=== PATIENT | female | born 1935 | race Caucasian/White ===

== ENCOUNTER 2020-10-25 07:14 | Emergency (ER) | payer MEDICARE, OTHER, SELFPAY ==
[2020-10-25 07:15] VITALS: BP 155/76; PULSE 85; RESP 18; TEMP 36.6; O2SAT 96; BMI 21.0
--- NOTE | 2020-10-25 07:25 | ED.VISSUMM ---
- ER Visit Summary Date of Service: 10/25/20 Chief Complaint: Nosebleed History of Present Illness: The patient is a 84 F presenting with nosebleed. Patient states this started approximately 1 hour prior to arrival. She has history of previous nosebleeds. She is not on anticoagulants. No recent trauma. She tried holding direct pressure at home and continued to have bleeding. Denies other complaints. Physical Examination: Vitals are stable. Patient is afebrile. Alert no acute distress. HEENT exam dried blood right nare, no blood in posterior pharynx Neck is supple. Lungs are clear and equal bilaterally. Heart is regular rate and rhythm. Extremities are unremarkable. Skin is warm and dry. Remainder of exam is unremarkable. Emergency Department Course and Treatment: Direct pressure was applied. Cotton ball soaked with Naz mix was instilled into right nare. TXA was then instilled into right nare. Right anterior septum was cauterized with silver nitrate. Patient was observed. She had no further active bleeding. Advised to follow-up with ENT. Advised return to ED for worsening complaints. Disposition: Discharge home Impression: Epistaxis This note was generated with [employer] dictation software. It may contain incorrect words, spelling, and punctuation that were not noted in review of the chart prior to signing ED Disposition - Plan for ED Patient: Instructions: Nosebleed Referrals: Hilton Castro MD [Primary Care Provider] - Oscar Balderas MD [STAFF PHYSICIAN] -
--- NOTE | 2020-10-25 07:32 | ED.RN ---
md aware sepsis screen cancelled pt does not have any SIRS.
[2020-10-25] MEDS: Silver Nitrate (BKC) 1 EACH TOPICAL (07:45)
[2020-10-25] MEDS: Mixture 30 ML Bottle TOPICAL (07:45)
[2020-10-25] MEDS: TRANEXAMIC ACID 1,000 MG/10 ML ML OPERA.SITE (07:45)
--- NOTE | 2020-10-25 08:04 | ED.DEP ---
ED Disposition - Plan for ED Patient: Instructions: Nosebleed Referrals: Hilton Castro MD [Primary Care Provider] - Oscar Balderas MD [STAFF PHYSICIAN] -
[2020-10-25 08:27] VITALS: BP 153/90; PULSE 80; RESP 17; O2SAT 96
== END 2020-10-25 08:28 | disposition home or self-care (01) ==
LOC: ED 08:23
PROVIDERS: Emergency Provider Emergency Medicine; PCP Family Medicine
DX: R04.0 Epistaxis (principal)
CPT/HCPCS: 30901; 99282

== ENCOUNTER 2021-04-15 09:15 | Emergency (ER) | payer MEDICARE, OTHER, SELFPAY ==
[2021-04-15 09:16] VITALS: BP 162/75; PULSE 81; RESP 16; TEMP 36.9; O2SAT 98; BMI 20.2
--- NOTE | 2021-04-15 09:32 | EDS_ITS ---
HPI History of Present Illness Chief Complaint: Rash Informant: patient Onset/Context/Timing Onset: Yesterday Context: Gradual Onset Timing: Continuous Quality: pruritic Location: right chest, left forearm Current Severity: Severe Maximum Severity: Severe Worsened by: nothing Relieved by: nothing Associated Symptoms Associated Symptoms: none Narrative Narrative: Patient presenting with itchy welts. She denies obvious cause. She denies any systemic symptoms such as dyspnea, edema. She was inside all day yesterday and was not exposed to any insects that she knows of. She denies any new soaps, shampoos, detergents, etc. The itchy red welts are on her right chest and breast, and 1 or 2 on her left forearm. She denies any pain, just itchy. [facility] Medical History (Updated 04/15/21 @ 09:[address] Mele Barreto MD) Hyperlipidemia Hypothyroid Home Medications triamcinolone acetonide 1 applic TOPICAL BID PRN 7 Days #15 g 04/15/21 [Rx Last Taken Unknown] Allergy/AdvReac Type Severity Reaction Status Date / Time Sulfa (Sulfonamide Allergy Hives Verified 10/25/20 07:17 Antibiotics) LATEX TAPE Allergy Rash Uncoded 04/15/21 09:18 Social History Smoking Status: Never smoker ROS ROS ED Constitutional Constitutional ED: Denies chills or fever(s) ENT ENT ED: Reports other Details: no problems swallowing ; Denies rhinorrhea or sore throat Cardiovascular Cardiovascular: Denies chest pain, edema or racing heartbeat Respiratory/Chest Respiratory/Chest: Denies cough or dyspnea Integumentary Reports rash; Denies abscess EXAM Physical Exam Const Vital Signs: 04/15/21 09:16 Temperature 98.4 F Temperature Source Temporal Pulse Rate 81 Respiratory Rate 16 Blood Pressure 162/75 H Blood Pressure Mean 104 Pulse Ox 98 Oxygen Delivery Method Room Air Positive well nourished and well developed General Appearance ED: well developed and NAD Extremity normal to inspection General Extremety ED: Negative for edema or tenderness General Extremity: Negative for edema Neuro oriented x3, CN's II-XII intact bilaterally, no sensory deficits noted and gait normal Sensorium / Orientation: alert Motor Exam: strength 5/5 throughout Skin Skin Narrative: Few scattered nontender erythematous wheal and flare lesions, 1- 2 cm at largest, right chest and breast. I see a similar one on her left volar forearm. No lymphangitis. No abscesses. MDM MDM MDM Narrative Medical decision making narrative: These appear to be more consistent with insect bites. She denies having any bedbugs. Her does not have any of this and sleeps in the same bed with her. Regardless of the etiology, I see no life threat here. Will prescribe her triamcinolone cream given that it is limited in distribution. Patient is also asking for a list of primary doctors in our system, which was given. Discharge Plan Triage Chief Complaint: Rash ED Provider: Mele Barreto Dx/Rx/DC Orders Clinical Impression: Insect bites and stings Instructions: ED Insect Sting, Local Reaction Prescriptions: New triamcinolone acetonide 0.1 % cream 1 applic topical BID PRN (Reason: itchy rash) 7 Days Qty: 15 RF: 0 Primary Care Provider: Hilton Castro Referrals: Hilton Castro MD [Primary Care Provider] - Doctor,Your [STAFF PHYSICIAN] - (see attached list if you would like to look for a new primary care physician) Disposition Disposition: Home, Self Care
== END 2021-04-15 09:53 | disposition home or self-care (01) ==
PROVIDERS: Emergency Provider Emergency Medicine; PCP Family Medicine
DX: S20.361A Insect bite (nonvenomous) of right front wall of thorax, initial encounter (principal); S50.862A Insect bite (nonvenomous) of left forearm, initial encounter; W57.XXXA Bitten or stung by nonvenomous insect and other nonvenomous arthropods, initial encounter
CPT/HCPCS: 99282

== ENCOUNTER → 2022-12-29 | Outpatient (CLI) | payer MEDICARE, OTHER, SELFPAY ==
--- NOTE | 2022-12-29 13:48 | CT_ITS ---
STUDY: CT LEFT SHOULDER REASON FOR EXAM: Female, 87 years old. Other specified disorders of bone, shoulder LEFT. Pain and swelling in the medial aspect of the left clavicle. RADIATION DOSAGE (If Supplied By Facility): CTDIvol = ( 24.58 ) mGy, DLP = ( 609.77 ) mGycm TECHNIQUE: The patient was scanned in a multi detector CT scanner. High resolution transaxial imaging was performed without the administration of intravenous contrast material. Sagittal and coronal images were reconstructed. Individualized dose optimization techniques were used for this CT. COMPARISON: None. FINDINGS: Normal glenohumeral articulation. Normal glenoid rim, neck and visualized scapula. Normal humeral head, neck and tuberosities. Normal coracoid process. Normal visualized lateral clavicle. There is mild expansion and irregular cortical bone appearance in the medial aspect of the left clavicle. Correlation with a bone scan is recommended. There is a Type II morphology (curved), with a neutral orientation. Normal visualized muscles and soft tissue structures. CT/Extremity Upper WITH Contrast IMPRESSION: Expansion and irregular cortical appearance of the medial aspect of the left clavicle as described. Correlation with a bone scan is recommended. Electronically Signed: Nick Interiano MD at 14:53 EDT ,
[2022-12-29 14:33] LABS: CREATININE FINGERSTICK < 0.9 mg/dL (0.55-1.02); EGFR FINGERSTICK > 60.0000 mL/min (>60)
== END | disposition home or self-care (01) ==
LOC: CT 13:45
PROVIDERS: PCP Family Medicine; Referring Provider Family Medicine; Visit Provider Family Medicine
DX: M89.8X1 Other specified disorders of bone, shoulder (principal); R93.89 Abnormal findings on diagnostic imaging of other specified body structures
CPT/HCPCS: 73201; Q9967

== ENCOUNTER → 2023-01-05 | Outpatient (CLI) | payer MEDICARE, OTHER, SELFPAY ==
--- NOTE | 2023-01-05 08:22 | NM_ITS ---
CLINICAL: 87-year-old female with history of left sternoclavicular-shoulder pain and swelling. WHOLE BODY 99m Tc MDP RADIONUCLIDE BONE SCINTIGRAPHY COMPARISON: CT of the left upper extremity report 12/29/2022 FINDINGS: Following the intravenous administration of 27.0 mCi of 99m Tc MDP, whole body bone images reveal: 1. Increased radiopharmaceutical concentration is defined in the left sternoclavicular joint, proximal clavicle. 2. Facilitated uptake is noted in the upper cervical spine posteriorly on the right, the ninth thoracic vertebra posteriorly on the right, the acromioclavicular compartments of both shoulders, the bilateral wrists, the fifth lumbar vertebra posteriorly on the right, the anterolateral femoral compartment of the right knee, the bilateral midfoot, wrist articulations bilaterally. 3. The remaining skeletal structures are scintigraphically unremarkable with normal-appearing renal images and urinary bladder activity identified. NM/Bone Scan Whole Body IMPRESSION: 1. The increase in radiopharmaceutical defined in the left proximal clavicle, sternoclavicular joint may necessitate histopathologic sampling secondary to the intensity of uptake and corresponding radiographic changes. 2. 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 Electronically Signed: Nolan Vela, at 21:50 EDT ,
== END | disposition home or self-care (01) ==
LOC: NM 08:20
PROVIDERS: PCP Family Medicine; Referring Provider Family Medicine; Visit Provider Family Medicine
DX: M89.8X1 Other specified disorders of bone, shoulder (principal); R93.89 Abnormal findings on diagnostic imaging of other specified body structures
CPT/HCPCS: 78306; A9503

== ENCOUNTER 2023-08-16 19:11 | Emergency (ER) | payer MEDICARE, OTHER, SELFPAY ==
[2023-08-16 19:12] VITALS: BP 162/66; PULSE 76; RESP 18; TEMP 37; O2SAT 97; BMI 21.6
--- NOTE | 2023-08-16 21:14 | EX.ED.DYSGE1 ---
HPI History of Present Illness Chief Complaint: Nosebleed Informant: patient Onset/Context/Timing Onset: Today Narrative Narrative: Patient presents secondary to 2 nosebleeds today. She reports 2 episodes today of right-sided nosebleed. On arrival to triage she was bleeding but this resolved with a nasal clamp. Patient is not on any thinners other than aspirin. Patient denies any recent trauma. She has not had recent URI symptoms. [facility] Medical History Contact with and (suspected) exposure to other viral communicable diseases Hyperlipidemia Hypothyroid Multiple myeloma URI (upper respiratory infection) Home Medications acyclovir 400 mg tablet mg 08/16/23 [History Last Taken Unknown] calcium carbonate 600 mg-vitamin D3 20 mcg (800 unit) chewable tablet (Caltrate 600 plus D) 1 tab PO BID 08/16/23 [History Last Taken Unknown] ferrous sulfate 325 mg (65 mg iron) tablet (Feosol) 325 mg PO DAILY 08/16/23 [History Last Taken Unknown] lenalidomide 10 mg capsule (Revlimid) 10 mg PO QHS 08/16/23 [History Last Taken Unknown] levothyroxine 50 mcg tablet 50 mcg PO DAILY 08/16/23 [History Last Taken Unknown] omeprazole 40 mg capsule,delayed release 40 mg PO DAILY 08/16/23 [History Last Taken Unknown] pravastatin 80 mg tablet 80 mg PO DAILY 08/16/23 [History Last Taken Unknown] Allergy/AdvReac Type Severity Reaction Status Date / Time latex Allergy Rash Verified 08/16/23 19:14 Sulfa (Sulfonamide Allergy Hives Verified 08/16/23 19:14 Antibiotics) Social History Smoking Status: Never smoker [facility] ED Constitutional Constitutional ED: Denies chills or fever(s) Eyes Eyes: Denies discharge from eye(s) ENT ENT ED: Reports other Details: Right-sided nosebleed ; Denies discharge from eye(s), rhinorrhea or sore throat Cardiovascular Cardiovascular: Denies chest pain Respiratory/Chest Respiratory/Chest: Denies cough or dyspnea Gastrointestinal Gastrointestinal: Denies abdominal pain, nausea or vomiting Genitourinary Genitourinary ED: Denies dysuria Musculoskeletal Musculoskeletal: Denies back pain or extremity pain Integumentary Denies Abrasions or rash Neurologic Neurologic: Denies headache(s) or weakness Allergic/Immunologic Allergic/Immunologic ED: Denies lip swelling or urticaria EXAM Physical Exam Const Vital Signs: 08/16/23 19:12 08/16/23 21:49 Temperature 98.6 F Temperature Source Temporal Pulse Rate 76 75 Respiratory Rate 18 16 Blood Pressure 162/66 H 150/67 H Blood Pressure Mean 98 94 Pulse Ox 97 97 Positive well nourished and well developed General Appearance ED: well developed HEENT Reports moist mucous membranes HEENT Narrative: Dried blood noted in the right nare. No septal hematoma. Eyes EOMs intact bilaterally Chest Wall inspection of chest normal and palpation of chest normal Resp normal respiratory effort and clear to auscultation bilaterally Cardio regular rate and regular rhythm GI non-tender Palpation: soft Extremity normal to inspection Neuro oriented x3 and no sensory deficits noted Motor Exam: strength 5/5 throughout Psych mental status grossly normal Skin no rashes or lesions noted MDM MDM MDM Narrative Medical decision making narrative: 2 sprays of Afrin were applied to the right nare. Merisel packing placed. Patient had no further bleeding at this time. She is known to Dr. Oscar Balderas and will call his office tomorrow for follow-up. Return instructions given. Discharge Plan Triage Chief Complaint: Nosebleed ED Provider: Crystal Schulte Dx/Rx/DC Orders Clinical Impression: Epistaxis Instructions: ED Epistaxis (Adult) Prescriptions: No Action acyclovir 400 mg tablet lenalidomide [Revlimid] 10 mg capsule 10 mg PO QHS levothyroxine 50 mcg tablet 50 mcg PO DAILY omeprazole 40 mg capsule,delayed release(DR/EC) 40 mg PO DAILY pravastatin 80 mg tablet 80 mg PO DAILY ferrous sulfate [Feosol] 325 mg (65 mg iron) tablet 325 mg PO DAILY Caltrate 600 plus D 600 mg-20 mcg (800 unit) tablet,chewable 1 tab PO BID Primary Care Provider: Hilton Castro Referrals: Hilton Castro MD [Primary Care Provider] - Oscar Balderas MD [Med Staff - Active Staff] - 2 Days Disposition Disposition: Home, Self Care Discharge Date/Time: 08/16/23 21:51
[2023-08-16] MEDS: Oxymetazoline 0.05% 1 SPRAY SPRAY.BTL NASAL (21:44)
[2023-08-16 21:49] VITALS: BP 150/67; PULSE 75; RESP 16; O2SAT 97
== END 2023-08-16 21:51 | disposition home or self-care (01) ==
PROVIDERS: Emergency Provider Emergency Medicine; PCP Family Medicine; Visit Provider Emergency Medicine
DX: R04.0 Epistaxis (principal); Z79.899 Other long term (current) drug therapy
CPT/HCPCS: 30901; 99282

== ENCOUNTER 2023-10-09 09:55 | Emergency (ER) | payer MEDICARE, OTHER, SELFPAY ==
[2023-10-09 09:56] VITALS: BP 139/112; PULSE 87; RESP 16; TEMP 35.8; O2SAT 96; BMI 20.4
--- NOTE | 2023-10-09 10:04 | EX.ED.DYSGE1 ---
HPI History of Present Illness Chief Complaint: Nausea/Vomiting/Diarrhea Informant: patient Onset/Context/Timing Onset: Yesterday Narrative Narrative: Patient presents secondary to nausea, vomiting, and diarrhea. Symptoms started last evening. She has no abdominal pain or fever. She has not had any blood associated with her stool or vomitus. She called the [facility] this morning as she is on chemotherapy for multiple myeloma. They did not feel that this was related to her medication, but likely a viral illness. She was sent to the emergency room for further evaluation. She denies any prior abdominal surgeries. [facility] Medical History (Updated 10/09/23 @ 12:[address] Crystal Schulte MD) Contact with and (suspected) exposure to other viral communicable diseases Hyperlipidemia Hypothyroid Multiple myeloma Home Medications acyclovir 400 mg tablet mg 08/16/23 [History Last Taken Unknown] calcium carbonate 600 mg-vitamin D3 20 mcg (800 unit) chewable tablet (Caltrate 600 plus D) 1 tab PO BID 08/16/23 [History Last Taken Unknown] ferrous sulfate 325 mg (65 mg iron) tablet (Feosol) 325 mg PO DAILY 08/16/23 [History Last Taken Unknown] lenalidomide 10 mg capsule (Revlimid) 10 mg PO QHS 08/16/23 [History Last Taken Unknown] levothyroxine 50 mcg tablet 50 mcg PO DAILY 08/16/23 [History Last Taken Unknown] omeprazole 40 mg capsule,delayed release 40 mg PO DAILY 08/16/23 [History Last Taken Unknown] pravastatin 80 mg tablet 80 mg PO DAILY 08/16/23 [History Last Taken Unknown] ondansetron 4 mg disintegrating tablet 4 mg PO Q8H PRN PRN Nausea #10 tabs 10/09/23 [Rx Last Taken Unknown] Allergy/AdvReac Type Severity Reaction Status Date / Time latex Allergy Rash Verified 10/09/23 09:57 Sulfa (Sulfonamide Allergy Hives Verified 10/09/23 09:57 Antibiotics) Social History Smoking Status: Never smoker ROS ROS ED Constitutional Constitutional ED: Denies chills or fever(s) Eyes Eyes: Denies discharge from eye(s) ENT ENT ED: Denies discharge from eye(s), rhinorrhea or sore throat Cardiovascular Cardiovascular: Denies chest pain or palpitations Respiratory/Chest Respiratory/Chest: Denies cough or dyspnea Gastrointestinal Gastrointestinal: Reports diarrhea, nausea and vomiting; Denies abdominal pain Genitourinary Genitourinary ED: Denies dysuria Musculoskeletal Musculoskeletal: Denies back pain or extremity pain Integumentary Denies Abrasions or rash Neurologic Neurologic: Denies headache(s) or weakness Psychiatric Psychiatric: Denies anxiety or depression Allergic/Immunologic Allergic/Immunologic ED: Denies lip swelling or urticaria EXAM Physical Exam Const Vital Signs: 10/09/23 09:56 10/09/23 11:08 Temperature 96.5 F L 98.2 F Temperature Source Temporal Oral Pulse Rate 87 83 Respiratory Rate 16 16 Blood Pressure 139/112 H 102/65 Blood Pressure Mean 121 77 Pulse Ox 96 97 Oxygen Delivery Method Room Air Room Air Positive well nourished and well developed General Appearance ED: well developed HEENT Reports moist mucous membranes Eyes EOMs intact bilaterally Neck no lymphadenopathy Chest Wall inspection of chest normal and palpation of chest normal Resp normal respiratory effort and clear to auscultation bilaterally Cardio regular rate and regular rhythm GI GI Narrative: Abdomen soft with no focal tenderness. Hypoactive bowel sounds noted. Extremity normal to inspection Neuro oriented x3 and no sensory deficits noted Motor Exam: strength 5/5 throughout Psych mental status grossly normal Skin no rashes or lesions noted MDM MDM MDM Narrative Medical decision making narrative: IV line established. Patient given IV fluids and Zofran for symptom control. Labwork obtained to evaluate for leukocytosis, anemia, and electrolyte derangement. History & Record Review Discussion w/independent historian: Patient and Significant other Additional record(s) reviewed:: Prior ED visit and Prior labs Lab Data Attestation: I reviewed the patient's lab results. Labs: Laboratory Results - last 24 hr 10/09/23 10:10 WBC 1.1 L* RBC 4.15 L Hgb 12.5 Hct 38.4 MCV 92.5 MCH 30.1 MCHC 32.6 RDW Std Deviation 51.4 H RDW Coeff of Kar 15.0 H Plt Count 85 L MPV 11.6 Immature Gran % (Auto) 0.000 Neut % (Auto) 68.6 Lymph % (Auto) 18.5 L Bandera % (Auto) 11.1 H Eos % (Auto) 0.9 Baso % (Auto) 0.9 Absolute Neuts (auto) 0.7 L Absolute Lymphs (auto) 0.20 L Nucleated RBC % 0 Differential Comment SCANNED Diff Path Review November Sodium 139 Potassium 3.7 Chloride 110 H Carbon Dioxide 22.0 Anion Gap 7 BUN 22 H Creatinine 1.02 Estim Creat Clear Calc 31.89 Est GFR (MDRD) Af Amer 66 Est GFR (MDRD) Non-Af 55 L BUN/Creatinine Ratio 21.6 H Glucose 116 H Calcium 7.8 L Total Bilirubin 0.70 Direct Bilirubin 0.17 AST 19 ALT 28 Alkaline Phosphatase 38 L Total Protein 6.6 Albumin 3.4 Globulin 3.2 Treatment and Re-Evaluation :: White blood cell count is 1.1 with 0.7 absolute neutrophils. Hemoglobin is 12.5. Chemistry studies are unremarkable. LFTs are normal. With IV fluids and Zofran patient does feel improved. At this time she is able to tolerate p.o. fluids without difficulty. She has no fever and feels well. She will be discharged home with a prescription for Zofran. Return instructions given. Discharge Plan Triage Chief Complaint: Nausea/Vomiting/Diarrhea ED Provider: Crystal Schulte Dx/Rx/DC Orders Clinical Impression: Gastroenteritis Instructions: ED Gastroenteritis, Viral (Adult) Prescriptions: New ondansetron 4 mg tablet,disintegrating 4 mg PO Q8H PRN PRN (Reason: Nausea) Qty: 10 0RF No Action acyclovir 400 mg tablet lenalidomide [Revlimid] 10 mg capsule 10 mg PO QHS levothyroxine 50 mcg tablet 50 mcg PO DAILY omeprazole 40 mg capsule,delayed release(DR/EC) 40 mg PO DAILY pravastatin 80 mg tablet 80 mg PO DAILY ferrous sulfate [Feosol] 325 mg (65 mg iron) tablet 325 mg PO DAILY Caltrate 600 plus D 600 mg-20 mcg (800 unit) tablet,chewable 1 tab PO BID Primary Care Provider: Hilton Castro Referrals: Hilton Castro MD [Primary Care Provider] - 1-2 Days if not improving Disposition Disposition: Home, Self Care
[2023-10-09] MEDS: 0.9% Normal Saline (1000mL) 1,000 ML 150 ML IV (10:18)
[2023-10-09] MEDS: Ondansetron 4 MG/2 ML Vial IV (10:19)
[2023-10-09] MEDS: 0.9% Normal Saline (500mL Bag) 500 ML 1000 ML IV (10:20)
[2023-10-09 10:26] LABS: Absolute Neutrophil Count 0.7 X10^3/uL (2.0-7.7); Basophil# 0.01 X10^3/uL; Basophil% 0.9 % (0-1); Eosinophil# 0.01 X10^3/uL; Eosinophils% 0.9 % (0-5); Hematocrit 38.4 % (37-47); Hemoglobin 12.5 g/dL (12.0-15.0); Lymphocyte % 18.5 % (19-41); Mean Corp Hgb Conc 32.6 g/dL (32-36); Mean Corpuscular Hgb 30.1 pg (27.0-32.0); Mean Corpuscular Volume 92.5 fL (81-99); Mean Platelet Vol. 11.6 fl (6.2-12.0); Monocyte# 0.12 X10^3/uL; Monocyte% 11.1 % (0-10); NRBC Flagged by Analyzer 0 % (0-5); Neutrophil # 0.74 X10^3/uL (2.7-7.7); Neutrophil % 68.6 % (47-70); POSITIVE COUNT YES; POSITIVE DIFFERENTIAL YES; Platelet Count 85 K/mm3 (150-450); RBC Distribution Width SD 51.4 fl (35.1-43.9); Red Blood Count 4.15 M/mm3 (4.2-5.4)
[2023-10-09 10:30] LABS: White Blood Count 1.1 K/mm3 (4.4-11.0)
[2023-10-09 10:31] LABS: Differential Indicated SCAN CRITERIA MET
[2023-10-09 10:33] LABS: AST(SGOT) 19 U/L (15-37); Alanine Aminotransfer ALT/SGPT 28 U/L (13-56); Albumin, Serum 3.4 g/dL (3.2-5.0); Alkaline Phosphatase 38 U/L (45-117); Anion Gap 7 (5-15); BUN 22 mg/dL (7-18); BUN/Creat Ratio 21.6 RATIO (10-20); Bilirubin, Direct 0.17 mg/dL (0.00-0.30); Calcium,Total 7.8 mg/dL (8.5-10.1); Chloride 110 mmol/L (98-107); Creatinine, Serum 1.02 mg/dL (0.55-1.02); EST Glomerular Filtration Rate 55 mL/min (>60); Est Glom Filt Rate - Afr Amer 66 mL/min (>60); Estimated Creatinine Clearance 31.89 ml/min; Globulin 3.2 g/dL (2.2-4.2); Glucose 116 mg/dL (74-106); Potassium 3.7 mmol/L (3.5-5.1); Protein, Total 6.6 g/dL (6.4-8.2); Sodium Level 139 mmol/L (136-145)
[2023-10-09 11:08] VITALS: BP 102/65; PULSE 83; RESP 16; TEMP 36.8; O2SAT 97
[2023-10-09 11:36] LABS: Differential Comment SCANNED
[2023-10-09 12:37] VITALS: BP 107/56; PULSE 75; RESP 18; TEMP 36.8; O2SAT 97
[2023-10-10 14:28] LABS: Pathologist Review Reviewed
== END 2023-10-09 12:37 | disposition home or self-care (01) ==
PROVIDERS: Emergency Provider Emergency Medicine; PCP Family Medicine; Visit Provider Emergency Medicine
DX: K52.9 Noninfective gastroenteritis and colitis, unspecified (principal)
CPT/HCPCS: 80048; 80076; 85025; 96361; 96374; 99283; A4216; J2405

== ENCOUNTER → 2024-04-25 | Outpatient (CLI) | payer MEDICARE, OTHER, SELFPAY ==
[2024-04-25 13:11] LABS: Anion Gap 4 (5-15); BUN 17 mg/dL (7-18); Calcium,Total 9.3 mg/dL (8.5-10.1); Chloride 106 mmol/L (98-107); EST Glomerular Filtration Rate 63 mL/min (>60); Est Glom Filt Rate - Afr Amer 77 mL/min (>60); Glucose 87 mg/dL (74-106); Potassium 4.1 mmol/L (3.5-5.1); Sodium Level 138 mmol/L (136-145)
== END | disposition home or self-care (01) ==
LOC: MTLAB 10:01
PROVIDERS: PCP Family Medicine; Referring Provider Physician Assistant Surgical; Visit Provider Physician Assistant Surgical
DX: U07.1 COVID-19 (principal)
CPT/HCPCS: 36415; 80048

== ENCOUNTER 2024-06-15 15:54 | Emergency (ER) | payer MEDICARE, OTHER, SELFPAY ==
[2024-06-15 15:55] VITALS: BP 151/57; PULSE 72; RESP 15; TEMP 36.3; O2SAT 99; BMI 20.2
--- NOTE | 2024-06-15 16:20 | EDS_ITS ---
HPI History of Present Illness Chief Complaint: Other, Pain/Inj Informant: patient and spouse/S.O. Narrative Narrative: Here with significant other increasing voice loss since yesterday. Very minimal cough. No fevers no sore throat. No vomiting or diarrhea. No diabetes history. History of multiple myeloma on treatment. Gets additional immunotherapy monthly last treatment was yesterday. [facility] Medical History Multiple myeloma Contact with and (suspected) exposure to other viral communicable diseases Hyperlipidemia Hypothyroid Home Medications ?Medication ?Instructions ?Recorded ?Last Taken ?Type acyclovir 400 mg tablet mg 08/16/23 Unknown History calcium 600 mg (as carbonate)-vit 1 tab PO BID 08/16/23 Unknown History D3 20 mcg (800 unit) chewable tablet (Caltrate plus D) ferrous sulfate 325 mg (65 mg 325 mg PO DAILY 08/16/23 Unknown History iron) tablet (Feosol) lenalidomide 10 mg capsule 10 mg PO QHS 08/16/23 Unknown History (Revlimid) levothyroxine 50 mcg tablet 50 mcg PO DAILY 08/16/23 Unknown History omeprazole 40 mg capsule,delayed 40 mg PO DAILY 08/16/23 Unknown History release pravastatin 80 mg tablet 80 mg PO DAILY 08/16/23 Unknown History ondansetron 4 mg disintegrating 4 mg PO Q8H PRN PRN Nausea #10 tabs 10/09/23 Unknown Rx tablet dexamethasone 4 mg tablet 8 mg (2 x 4 mg) PO X1 #2 tabs 06/15/24 Unknown Rx Allergy/AdvReac Type Severity Reaction Status Date / Time latex Allergy Rash Verified 06/15/24 15:58 Sulfa (Sulfonamide Allergy Hives Verified 06/15/24 15:58 Antibiotics) Social History Smoking Status: Never smoker ROS ROS ED Constitutional Constitutional ED: Denies chills, fever(s) or sweats Eyes Eyes: Denies change in vision ENT ENT ED: Reports other Details: Voice loss ; Denies dysphagia or sore throat Cardiovascular Cardiovascular: Denies chest pain, leg edema, palpitations or racing heartbeat Respiratory/Chest Respiratory/Chest: Reports cough; Denies dyspnea or dyspnea on exertion Gastrointestinal Gastrointestinal: Denies abdominal pain, diarrhea, nausea or vomiting Genitourinary Genitourinary ED: Denies dysuria, hematuria or urinary frequency Musculoskeletal Musculoskeletal: Denies back pain, extremity pain or neck pain Integumentary Denies rash or wounds Neurologic Neurologic: Denies headache(s), paresthesias or weakness EXAM Physical Exam Const Vital Signs: 06/15/24 15:55 Temperature 97.4 F L Temperature Source Oral Pulse Rate 72 Respiratory Rate 15 Blood Pressure 151/57 H Blood Pressure Mean 88 Pulse Ox 99 Oxygen Delivery Method Room Air Positive well nourished and well developed Constitutional Narrative: Mild voice loss General Appearance ED: well developed and NAD HEENT Reports TM's clear and moist mucous membranes HEENT Narrative: No posterior pharyngeal erythema. No exudates. No stridor. normocephalic and atraumatic Tympanic Membrane ED: Yes TM's clear Eyes EOMs intact bilaterally and conjunctivae normal General Eye ED: Yes normal appearance of both eyes Neck no lymphadenopathy and supple General: Negative for tenderness Chest Wall Chest: Negative for tenderness Resp normal respiratory effort and normal air movement Effort and Inspection: symmetric chest movement; Negative for respiratory distress Cardio regular rate, regular rhythm and no murmurs Peripheral Pulses: pulses 2+ throughout GI normal to inspection, nondistended, normoactive bowel sounds and non-tender Palpation: Negative for guarding or rebound tenderness present Back/Spine no CVA tenderness and no thoracic nor lumbar tenderness Extremity normal to inspection General Extremety ED: Negative for edema or tenderness General Extremity: Negative for edema Neuro oriented x3 and no sensory deficits noted Sensorium / Orientation: awake and alert Skin no rashes or lesions noted and no wounds MDM MDM MDM Narrative Medical decision making narrative: Interventions / MDM: Differential diagnosis: Laryngitis, voice loss, viral syndrome, history multiple myeloma. Diagnosis considered but do not suspect: No clinical strep My EKG interpretation: N/A Imaging independently reviewed and interpreted by myself: N/A External documents reviewed: N/A Test considered but not ordered:N/A ED course: Vital signs stable nontoxic. Discussed laryngitis as viral syndrome with patient and spouse. Discussed treatment help right symptoms would be steroids. However with her multiple myeloma, they report any clearance from their oncology team. Did not want to start this in the ED. Prescription written for one-time dose if they get clearance. Otherwise discussed using humidifier for which they have. Continue oral fluids. All questions were answered. Re-evaluation: stable Disposition discussed with patient/family/significant other: Patient and spouse Case discussed with consulting clinician: N/A This note was generated with [employer] dictation software. It may contain incorrect words, spelling, and punctuation that were not noted in checking the note before signing. Discharge Plan Triage Chief Complaint: Other, Pain/Inj ED Provider: Rahul Dalton Dx/Rx/DC Orders Clinical Impression: Laryngitis, acute, History of multiple myeloma Instructions: ED Laryngitis Prescriptions: New dexamethasone 4 mg tablet 8 mg PO X1 Qty: 2 0RF No Action acyclovir 400 mg tablet lenalidomide [Revlimid] 10 mg capsule 10 mg PO QHS levothyroxine 50 mcg tablet 50 mcg PO DAILY omeprazole 40 mg capsule,delayed release(DR/EC) 40 mg PO DAILY pravastatin 80 mg tablet 80 mg PO DAILY ferrous sulfate [Feosol] 325 mg (65 mg iron) tablet 325 mg PO DAILY Caltrate 600 plus D 600 mg-20 mcg (800 unit) tablet,chewable 1 tab PO BID ondansetron 4 mg tablet,disintegrating 4 mg PO Q8H PRN PRN (Reason: Nausea) Qty: 10 0RF Primary Care Provider: Hilton Castro Referrals: Hilton Castro MD [Primary Care Provider] - 1 Week if not improving Activity Restrictions/Additional Instructions: You were printed for prescription for steroids. You want to speak with your oncology team for clearance for taking this for your symptoms of laryngitis. Fill and take 1 time, sooner the better to help with healing otherwise symptomatic treatment as discussed. Print Language: Khmer Disposition Disposition: Home, Self Care Discharge Date/Time: 06/15/24 16:25
== END 2024-06-15 16:25 | disposition home or self-care (01) ==
LOC: ED 16:21
PROVIDERS: Emergency Provider Emergency Medicine; PCP Family Medicine; Visit Provider Emergency Medicine
DX: J04.0 Acute laryngitis (principal)
CPT/HCPCS: 99282

== ENCOUNTER 2024-06-20 17:32 | Emergency (ER) | payer MEDICARE, OTHER, SELFPAY ==
[2024-06-20 17:33] VITALS: BP 148/110; PULSE 99; RESP 22; TEMP 37.1; O2SAT 92; BMI 20.5
[2024-06-20 17:35] VITALS: BP 134/89; PULSE 94; RESP 19; TEMP 37.1; O2SAT 95
--- NOTE | 2024-06-20 17:38 | ED.VIS.DYS ---
HPI History of Present Illness Chief Complaint: Cough [facility] Medical History Multiple myeloma Contact with and (suspected) exposure to other viral communicable diseases Hyperlipidemia Hypothyroid Home Medications ?Medication ?Instructions ?Recorded ?Last Taken ?Type acyclovir 400 mg tablet mg 08/16/23 Unknown History calcium 600 mg (as carbonate)-vit 1 tab PO BID 08/16/23 Unknown History D3 20 mcg (800 unit) chewable tablet (Caltrate plus D) ferrous sulfate 325 mg (65 mg 325 mg PO DAILY 08/16/23 Unknown History iron) tablet (Feosol) lenalidomide 10 mg capsule 10 mg PO QHS 08/16/23 Unknown History (Revlimid) levothyroxine 50 mcg tablet 50 mcg PO DAILY 08/16/23 Unknown History omeprazole 40 mg capsule,delayed 40 mg PO DAILY 08/16/23 Unknown History release pravastatin 80 mg tablet 80 mg PO DAILY 08/16/23 Unknown History ondansetron 4 mg disintegrating 4 mg PO Q8H PRN PRN Nausea #10 tabs 10/09/23 Unknown Rx tablet dexamethasone 4 mg tablet 8 mg (2 x 4 mg) PO X1 #2 tabs 06/15/24 Unknown Rx amoxicillin 875 mg-potassium 1 tab PO BID 10 days #20 tabs 06/20/24 Unknown Rx clavulanate 125 mg tablet Allergy/AdvReac Type Severity Reaction Status Date / Time latex Allergy Rash Verified 06/20/24 17:33 Sulfa (Sulfonamide Allergy Hives Verified 06/20/24 17:33 Antibiotics) Social History Smoking Status: Never smoker EXAM Physical Exam Const Vital Signs: 06/20/24 17:33 06/20/24 17:35 06/20/24 17:45 Temperature 98.8 F 98.7 F Temperature Source Oral Oral Pulse Rate 99 94 Respiratory Rate 22 H 19 H Respiratory Effort Normal Non-Labored Respiratory Depth Normal Respiratory Pattern Normal Blood Pressure 148/110 H 134/89 H Blood Pressure Mean 122 104 Pulse Ox 92 95 Oxygen Delivery Method Room Air Room Air Room Air 06/20/24 18:35 Temperature 98.9 F Temperature Source Oral Pulse Rate 91 Respiratory Rate 17 Respiratory Effort Respiratory Depth Respiratory Pattern Blood Pressure 155/62 H Blood Pressure Mean 93 Pulse Ox 96 Oxygen Delivery Method Room Air [facility] [place] Narrative Medical decision making narrative: HISTORY OF PRESENT ILLNESS: 88-year-old female presents with cough. She does she is currently being treated for multi myeloma. She notes a fever of 100.5 at home. She notes he is coughing up thick yellow mucus. REVIEW OF SYSTEMS: Pertinent positives: Cough Pertinent negatives: Shortness of breath, chest pain PHYSICAL EXAM: Nursing triage notes reviewed, Vital signs reviewed Constitutional: please see [facility] HENT: MMM Eyes: Pupils equal round and reactive to light, Extraocular muscles intact Neck: No stridor, no JVD, full neck ROM Lungs: Clear to auscultation, No wheezing or rales. No increased work of breathing, no conversational dyspnea, no accessory muscle use, no nasal flaring. No respiratory distress noted Heart: Regular rate and rhythm, No murmurs, No rubs and No gallops, 2+ distal pulses (radial, femoral, posterior tibial) in all extremities Abdomen: Soft, there is no tenderness, rigidity, rebound or guarding, no obvious peritoneal signs, no palpable pulsatile abdominal masses, no auscultated abdominal bruit : No CVAT Extremities: No edema Neuro: No new focal neurological deficits, cranial nerves II through XII intact, 5/5 strength in all present extremities. Intact sensation to light touch in all present extremities, 2+ reflexes bilateral patella tendons. Skin: No rash or lesions noted MEDICAL DECISION MAKING: Chief Complaint: Cough External records reviewed: No recent [place] imaging of the chest Factors affecting care: multiple myeloma Social determinants of health: none History obtained from others: none Consults: none [facility] Narrative: Patient was initially hemodynamically stable, tachypneic, afebrile, saturating 92% on room air. Exam I considered the following differential diagnosis: Pneumonia, COVID, flu, RSV, ACS, arrhythmia, anemia I obtained a broad lab and imaging workup to further elucidate etiology of patient's complaints ALL IMAGES (IF OBTAINED) HAVE BEEN PERSONALLY REVIEWED AND INTERPRETED BY MYSELF. Chest x-ray was read and reviewed personally myself, interpreted myself showed evidence of right lower lobe pneumonia. Degree my interpretation CBC without leukocytosis, no significant anemia, (slightly worse than baseline) noted thrombocytopenia (improved baseline) BMP without evidence of significant electrolyte abnormalities, no anion gap, no acute kidney injury. The synthesis of the patient's history, physical exam, labs images suggest pneumonia. She ambulated here with a reassuring pulse ox of 93 to 95%. Patient is appropriate discharge with oral antibiotics and close follow with her PCP/oncologist. Strict return precautions were discussed. Will give Augmentin for 10 days., The patient and/or family, caregivers express understanding. The patient and/or family, caregivers agrees with the plan. Shared decision making: I will have a discussion with the patient and or visitors regarding risk/benefits of further testing or admission. They will be made aware of of the risk/benefits inherent in this decision they will be given the opportunity to voice understanding. Total critical care time today provided was at least 0 minutes. This excludes separately billable procedures. Critical care time (if documented) is secondary to the patient having high probability of clinically significant/life threatening deterioration in the patient's condition which required my urgent intervention. Impression: 1. Cough 2. History multiple lung 3. Community-acquired pneumonia Dispo: Discharge home This note was generated with [employer] dictation software. It may contain incorrect words, spelling, and punctuation that were not noted in review of the chart prior to signing. Lab Data Labs: Laboratory Results - last 24 hr 06/20/24 18:10 WBC 1.5 L* RBC 3.68 L Hgb 10.9 L Hct 33.7 L MCV 91.6 MCH 29.6 MCHC 32.3 RDW Std Deviation 50.4 H RDW Coeff of Kar 14.9 H Plt Count 105 L MPV 11.1 Differential Comment SCANNED Diff Path Review May foll Sodium 139 Potassium 3.6 Chloride 109 H Carbon Dioxide 26.0 Anion Gap 4 L BUN 33 H Creatinine 1.29 H Estim Creat Clear Calc 24.76 Est GFR (MDRD) Af Amer 50 L Est GFR (MDRD) Non-Af 42 L BUN/Creatinine Ratio 25.6 H Glucose 123 H Calcium 8.3 L Radiography Diagnostic Testing: Clinical Impression(s) from Imaging Studies Chest X-Ray 06/20/24 18:25 IMPRESSION: Right lower lobe infiltrate with pleural effusion consistent with pneumonia. Recommend short-term follow-up to complete resolution. Electronically Signed: Rm Bah MD at 19:19 EST Reading Location ID and State: [facility] / [place] Tel , Service support , Discharge Plan Triage Chief Complaint: Cough ED Provider: Bossman Tapia Dx/Rx/DC Orders Clinical Impression: Community acquired bacterial pneumonia Instructions: ED Pneumonia (Adult) Prescriptions: New amoxicillin-pot clavulanate 875-125 mg tablet 1 tab PO BID 10 Days Qty: 20 0RF No Action acyclovir 400 mg tablet lenalidomide [Revlimid] 10 mg capsule 10 mg PO QHS levothyroxine 50 mcg tablet 50 mcg PO DAILY omeprazole 40 mg capsule,delayed release(DR/EC) 40 mg PO DAILY pravastatin 80 mg tablet 80 mg PO DAILY ferrous sulfate [Feosol] 325 mg (65 mg iron) tablet 325 mg PO DAILY Caltrate 600 plus D 600 mg-20 mcg (800 unit) tablet,chewable 1 tab PO BID ondansetron 4 mg tablet,disintegrating 4 mg PO Q8H PRN PRN (Reason: Nausea) Qty: 10 0RF dexamethasone 4 mg tablet 8 mg PO X1 Qty: 2 0RF Primary Care Provider: Hilton Castro Referrals: Hilton Castro MD [Primary Care Provider] - Activity Restrictions/Additional Instructions: Thank you for trusting us with your care today! Your x-ray was consistent with bacterial pneumonia. This is treated with antibiotics. Please take antibiotic until course complete Please take Tylenol (2 pills, 650 mg), ibuprofen (2 pills, 400 mg) every 6 hours as needed for pain and fever control. Please return to the emergency department if your symptoms change or worsen. Specifically develop worsening shortness of breath, chest pain, if you lose consciousness Please follow with your primary care physician/oncologist for further outpatient evaluation and management. Print Language: Taiwanese Disposition Disposition: Home, Self Care
[2024-06-20 18:20] LABS: Hematocrit 33.7 % (37-47); Hemoglobin 10.9 g/dL (12.0-15.0); Mean Corp Hgb Conc 32.3 g/dL (32-36); Mean Corpuscular Hgb 29.6 pg (27.0-32.0); Mean Corpuscular Volume 91.6 fL (81-99); Mean Platelet Vol. 11.1 fl (6.2-12.0); POSITIVE COUNT YES; Platelet Count 105 K/mm3 (150-450); RBC Distribution Width CV 14.9 % (11.6-14.6); RBC Distribution Width SD 50.4 fl (35.1-43.9); Red Blood Count 3.68 M/mm3 (4.2-5.4)
--- NOTE | 2024-06-20 18:25 | RAD_ITS ---
INDICATION: cough EXAMINATION/TECHNIQUE: X-RAY - XR Chest 2 Views COMPARISON: None. FINDINGS: LINES/DEVICES: None. LUNGS: Patchy airspace opacity right lower lobe posteriorly. No consolidation. Small right pleural effusion. MEDIASTINUM AND CARDIOVASCULAR STRUCTURES: Cardiac silhouette not enlarged. Central airways and mediastinal contour are unremarkable. BONES AND SOFT TISSUES: No acute findings. RAD/Chest PA and Lateral IMPRESSION: Right lower lobe infiltrate with pleural effusion consistent with pneumonia. Recommend short-term follow-up to complete resolution. Electronically Signed: Rm Bah MD at 19:19 EST ,
[2024-06-20 18:27] LABS: Scan Indicated on CBC? Y/N YES- FLAGS NOTED
[2024-06-20 18:28] LABS: White Blood Count 1.5 K/mm3 (4.4-11.0)
--- NOTE | 2024-06-20 18:32 | ED.RN ---
WBC 1.5 DR BURNS AWARE
[2024-06-20 18:35] VITALS: BP 155/62; PULSE 91; RESP 17; TEMP 37.2; O2SAT 96
[2024-06-20 18:44] LABS: Anion Gap 4 (5-15); BUN 33 mg/dL (7-18); BUN/Creat Ratio 25.6 RATIO (10-20); Calcium,Total 8.3 mg/dL (8.5-10.1); Chloride 109 mmol/L (98-107); Creatinine, Serum 1.29 mg/dL (0.55-1.02); EST Glomerular Filtration Rate 42 mL/min (>60); Est Glom Filt Rate - Afr Amer 50 mL/min (>60); Estimated Creatinine Clearance 24.76 ml/min; Glucose 123 mg/dL (74-106); Potassium 3.6 mmol/L (3.5-5.1); Sodium Level 139 mmol/L (136-145)
[2024-06-20 18:55] LABS: Differential Comment SCANNED
[2024-06-20 19:08] VITALS: O2SAT 93
[2024-06-20 19:33] VITALS: BP 138/59; PULSE 92; RESP 21; O2SAT 93
[2024-06-20 19:59] VITALS: BP 138/59; PULSE 92; RESP 21; TEMP 37.2; O2SAT 93
[2024-06-21 13:45] LABS: Pathologist Review Reviewed
== END 2024-06-20 20:06 | disposition home or self-care (01) ==
PROVIDERS: Emergency Provider Emergency Medicine; PCP Family Medicine; Visit Provider Emergency Medicine
DX: J18.9 Pneumonia, unspecified organism (principal)
CPT/HCPCS: 71046; 80048; 85027; 87631; 99282; A4216

== ENCOUNTER 2024-06-22 15:56 | Emergency (ER) | payer MEDICARE, OTHER, SELFPAY ==
[2024-06-22 15:57] VITALS: BP 126/56; PULSE 82; RESP 18; TEMP 36.4; O2SAT 95; BMI 19.8
[2024-06-22] MEDS: Mixture 30 ML Bottle 5 ML TOPICAL (16:17)
--- NOTE | 2024-06-22 16:25 | EDS_ITS ---
HPI <TK Naranjo - Last Filed: 06/22/24 19:11> History of Present Illness Chief Complaint: Nosebleed Narrative Narrative: Patient presenting today with a right-sided nosebleed that started about 45 minutes prior to arrival. She reports that her nose started bleeding randomly. It has bled a few times this week but only lasted a few minutes, she has been blowing her nose more recently and is currently being treated for URI. She does follow with ENT. She denies any trauma to her nose. I did stop bleeding when she was brought back to her room. She denies any fevers or chills. She takes a daily aspirin. PFS <TK Naranjo - Last Filed: 06/22/24 19:11> [facility] Medical History Multiple myeloma Contact with and (suspected) exposure to other viral communicable diseases Hyperlipidemia Hypothyroid Home Medications ?Medication ?Instructions ?Recorded ?Last Taken ?Type acyclovir 400 mg tablet mg 08/16/23 Unknown History calcium 600 mg (as carbonate)-vit 1 tab PO BID 08/16/23 Unknown History D3 20 mcg (800 unit) chewable tablet (Caltrate plus D) ferrous sulfate 325 mg (65 mg 325 mg PO DAILY 08/16/23 Unknown History iron) tablet (Feosol) lenalidomide 10 mg capsule 10 mg PO QHS 08/16/23 Unknown History (Revlimid) levothyroxine 50 mcg tablet 50 mcg PO DAILY 08/16/23 Unknown History omeprazole 40 mg capsule,delayed 40 mg PO DAILY 08/16/23 Unknown History release pravastatin 80 mg tablet 80 mg PO DAILY 08/16/23 Unknown History ondansetron 4 mg disintegrating 4 mg PO Q8H PRN PRN Nausea #10 tabs 10/09/23 Unknown Rx tablet dexamethasone 4 mg tablet 8 mg (2 x 4 mg) PO X1 #2 tabs 06/15/24 Unknown Rx amoxicillin 875 mg-potassium 1 tab PO BID 10 days #20 tabs 06/20/24 Unknown Rx clavulanate 125 mg tablet Allergy/AdvReac Type Severity Reaction Status Date / Time latex Allergy Rash Verified 06/22/24 15:57 Sulfa (Sulfonamide Allergy Hives Verified 06/22/24 15:57 Antibiotics) Social History current occupational status: retired Smoking Status: Never smoker ROS <TK Naranjo - Last Filed: 06/22/24 19:11> ROS ED Constitutional Constitutional ED: Denies chills or fever(s) ENT ENT ED: Reports epistaxis Cardiovascular Cardiovascular: Denies chest pain Respiratory/Chest Respiratory/Chest: Denies dyspnea Gastrointestinal Gastrointestinal: Denies abdominal pain, nausea or vomiting Musculoskeletal Musculoskeletal: Denies myalgias or neck pain Integumentary Denies rash Neurologic Neurologic: Denies weakness EXAM <TK Naranjo - Last Filed: 06/22/24 19:11> Physical Exam Const Vital Signs: 06/22/24 15:57 06/22/24 17:32 Temperature 97.5 F L 97.6 F L Temperature Source Temporal Pulse Rate 82 74 Respiratory Rate 18 16 Blood Pressure 126/56 H 122/50 H Blood Pressure Mean 79 74 Pulse Ox 95 99 Oxygen Delivery Method Room Air Positive well nourished, well developed and no apparent distress General Appearance ED: well developed HEENT Reports normocephalic and head/scalp atraumatic HEENT Narrative: Friable mucosa on the right, I am able to visualize the vessel that was bleeding located in Kiesselbach's plexus on the right as it has very minimal oozing at this time. No blood in the posterior pharynx, no septal hematoma, no septal deviation. Mouth ED: Yes moist mucous membranes normal Eyes PERRL and EOMs intact bilaterally Neck full ROM and supple Chest Wall inspection of chest normal Resp normal respiratory effort and clear to auscultation bilaterally Cardio regular rate and regular rhythm GI non-distended Back/Spine normal ROM and normal to inspection Extremity normal to inspection and full ROM Neuro oriented x3, CN's II-XII intact bilaterally, moves all extremities, no focal motor deficits and no sensory deficits noted Sensorium / Orientation: awake and alert Psych mental status grossly normal and thought process normal Skin no rashes or lesions noted and no wounds <Dr. Rahul Dalton DO - Last Filed: 06/22/24 23:33> Physical Exam Const Vital Signs: 06/22/24 15:57 06/22/24 17:32 Temperature 97.5 F L 97.6 F L Temperature Source Temporal Pulse Rate 82 74 Respiratory Rate 18 16 Blood Pressure 126/56 H 122/50 H Blood Pressure Mean 79 74 Pulse Ox 95 99 Oxygen Delivery Method Room Air [facility] <TK Naranjo - Last Filed: 06/22/24 19:11> [facility] Narrative Medical decision making narrative: Patient presenting today with right anterior epistaxis that started about 45 minutes prior to arrival, it did stop by the time she got here. She blew her nose prior to my exam and had several large clots came out. I did have her blow her nose again, no further clots. She has friable mucosa on the right, very minimal bleeding from a vessel located at Kiesselbach plexus on the right. Andrey mix was applied onto a cottonball and was placed in the right nostril for several minutes. This was taken out and patient was observed for 30 minutes and on reexamination she has no further bleeding. I did recommend that she follow- up with ENT. She does occasionally use a saline nasal flush, she can use this to help moisturize her nose. I also recommended she begin using a humidifier because her house is hot and dry and she has been blowing her nose a lot due to her URI. Return instructions discussed and patient discharged home in stable condition. <Dr. Rahul Dalton DO - Last Filed: 06/22/24 23:33> [facility] Narrative Medical decision making narrative: Patient presenting today with right anterior epistaxis that started about 45 minutes prior to arrival, it did stop by the time she got here. She blew her nose prior to my exam and had several large clots came out. I did have her blow her nose again, no further clots. She has friable mucosa on the right, very minimal bleeding from a vessel located at Kiesselbach plexus on the right. Andrey mix was applied onto a cottonball and was placed in the right nostril for several minutes. This was taken out and patient was observed for 30 minutes and on reexamination she has no further bleeding. I did recommend that she follow- up with ENT. She does occasionally use a saline nasal flush, she can use this to help moisturize her nose. I also recommended she begin using a humidifier because her house is hot and dry and she has been blowing her nose a lot due to her URI. Return instructions discussed and patient discharged home in stable condition. Attending note: I have personally performed a face to face assessment of the patient and have reviewed the PHYLLIS note. I personally made/approved the management plan and take responsibility for the patient management. I performed a substantive portion of the visit including all aspects of the following. My eason findings include: Right side nasal bleed 45 minutes prior to arrival. Resolved. Exam by medical communication specialist irritable right septum minimal bleeding. Andrey mixed was applied, monitor removed. No active bleeding. Should avoid blowing nose. She will follow-up with ENT. Return precautions. Discharge Plan Triage Chief Complaint: Nosebleed ED Midlevel Provider: Carole Goodwin ED Provider: Rahul Dalton Dx/Rx/DC Orders Clinical Impression: Acute anterior epistaxis Instructions: ED Epistaxis (Adult) Prescriptions: No Action acyclovir 400 mg tablet lenalidomide [Revlimid] 10 mg capsule 10 mg PO QHS levothyroxine 50 mcg tablet 50 mcg PO DAILY omeprazole 40 mg capsule,delayed release(DR/EC) 40 mg PO DAILY pravastatin 80 mg tablet 80 mg PO DAILY ferrous sulfate [Feosol] 325 mg (65 mg iron) tablet 325 mg PO DAILY Caltrate 600 plus D 600 mg-20 mcg (800 unit) tablet,chewable 1 tab PO BID ondansetron 4 mg tablet,disintegrating 4 mg PO Q8H PRN PRN (Reason: Nausea) Qty: 10 0RF dexamethasone 4 mg tablet 8 mg PO X1 Qty: 2 0RF amoxicillin-pot clavulanate 875-125 mg tablet 1 tab PO BID 10 Days Qty: 20 0RF Primary Care Provider: Hilton Castro Referrals: Hilton Castro MD [Primary Care Provider] - Activity Restrictions/Additional Instructions: Follow-up with your ENT doctor, return for any other concerns. Print Language: Greek Disposition Disposition: Home, Self Care Discharge Date/Time: 06/22/24 17:35
[2024-06-22 17:32] VITALS: BP 122/50; PULSE 74; RESP 16; TEMP 36.4; O2SAT 99
== END 2024-06-22 17:35 | disposition home or self-care (01) ==
PROVIDERS: Emergency Provider Emergency Medicine; PCP Family Medicine; Referring Provider Emergency Medicine; Visit Provider Emergency Medicine
DX: R04.0 Epistaxis (principal)
CPT/HCPCS: 30901; 99282

== ENCOUNTER 2024-11-26 20:43 | Emergency (ER) | payer MEDICARE, OTHER, SELFPAY ==
[2024-11-26 20:44] VITALS: BP 153/65; PULSE 76; RESP 16; TEMP 36.8; O2SAT 99; BMI 20.3
[2024-11-26 20:46] VITALS: BP 153/65; PULSE 76; RESP 16; TEMP 36.8; O2SAT 99
--- NOTE | 2024-11-26 21:07 | ED.VIS.GI ---
HPI HPI - GI History of Present Illness Chief Complaint: Nausea/Vomiting/Diarrhea Informant: patient and spouse/S.O. Nausea/Vomiting/Emesis GI Symptom: Positive for Nausea and Vomiting Onset: Today and Hours Severity: Moderate Diarrhea/Melena/Hematochezia GI Symptom: Positive for Diarrhea Onset: Today Stool Quality: Positive for Watery Severity: Moderate Associated Symptoms Associated Symptoms: Negative for Dysuria, Frequency, Hematuria or Urgency Narrative Narrative: 88-year-old female history of multiple myeloma has a scheduled infusion this Monday at the [facility]. States she felt fine earlier today. Around 6:30 PM she started having nausea and vomiting and then shortly after that began having diarrhea. She has had multiple episodes of each. No hematemesis. No melena. Really denies any abdominal pain or fever. No dysuria. States she was feeling fine until this started. No recent exposure anyone that had the symptoms. Her has not been ill. States she feels dehydrated. Prior similar symptoms: Yes Recent Illness/Hospitalization: No PFSH PFS Medical History Multiple myeloma Contact with and (suspected) exposure to other viral communicable diseases Hyperlipidemia Hypothyroid Home Medications ?Medication ?Instructions ?Recorded ?Last Taken ?Type acyclovir 400 mg tablet 400 mg PO DAILY 08/16/23 Unknown History calcium 600 mg (as carbonate)-vit 1 tab PO BID 08/16/23 Unknown History D3 20 mcg (800 unit) chewable tablet (Caltrate plus D) ferrous sulfate 325 mg (65 mg 325 mg PO DAILY 08/16/23 Unknown History iron) tablet (Feosol) lenalidomide 10 mg capsule 10 mg PO QHS 08/16/23 Unknown History (Revlimid) levothyroxine 50 mcg tablet 50 mcg PO DAILY 08/16/23 Unknown History omeprazole 40 mg capsule,delayed 40 mg PO DAILY 08/16/23 Unknown History release pravastatin 80 mg tablet 80 mg PO DAILY 08/16/23 Unknown History ondansetron 4 mg disintegrating 4 mg PO Q8H PRN PRN Nausea #10 tabs 10/09/23 Unknown Rx tablet ondansetron 4 mg disintegrating 4 mg PO Q6H PRN nausea and 11/26/24 Unknown Rx tablet vomiting #7 tabs Allergy/AdvReac Type Severity Reaction Status Date / Time latex Allergy Rash Verified 11/26/24 20:45 Sulfa (Sulfonamide Allergy Hives Verified 11/26/24 20:45 Antibiotics) Social History current occupational status: retired Smoking Status: Never smoker ROS ROS ED ROS Narrative Nausea, vomiting and diarrhea. No dysuria. No fever. No abdominal pain. Constitutional Constitutional ED: Denies chills or fever(s) ENT ENT ED: Denies ear pain Cardiovascular Cardiovascular: Denies chest pain Respiratory/Chest Respiratory/Chest: Denies cough or dyspnea Gastrointestinal Gastrointestinal: Reports diarrhea, nausea and vomiting; Denies abdominal pain, constipation or melena Genitourinary Genitourinary ED: Denies dysuria or hematuria Musculoskeletal Musculoskeletal: Denies arthralgias Integumentary Denies abscess Neurologic Neurologic: Denies headache(s) Psychiatric Psychiatric: Denies anxiety Endocrine Endocrinology: Denies polydipsia Hematologic/Lymphatic Hematologic/Lymphatic: Denies easy bleeding Allergic/Immunologic Allergic/Immunologic ED: Denies mouth swelling EXAM Physical Exam Narrative Exam Narrative: 88-year-old female vital signs are stable afebrile. She does not look septic or toxic. She is currently in no acute distress. is at bedside. H EENT exam pupils round reactive light. Mildly dry mucous membranes. No droop. Normal speech. No trauma. Neck nontender. Lungs clear to auscultation bilaterally. Heart regular rhythm rate about 75 no murmur. Chest wall ribs nontender. Abdomen soft, nontender, nondistended, normal bowel sounds without peritoneal signs. No hernia or mass. No obstruction. Completely nontender. Moving all 4 extremities. Nontender no edema. Normal strength and range of motion. Back nontender. Neurologically she is awake alert. Answering questions following commands. Const Vital Signs: 11/26/24 20:44 11/26/24 20:46 11/26/24 20:46 Temperature 98.3 F 98.3 F 98.3 F Temperature Source Oral Oral Oral Pulse Rate 76 76 76 Respiratory Rate 16 16 16 Blood Pressure 153/65 H 153/65 H 153/65 H Blood Pressure Mean 94 94 94 Pulse Ox 99 99 99 Oxygen Delivery Method Room Air Room Air Positive well nourished and well developed; Negative for obese, cachectic, contractures or unkempt General Appearance ED: well developed and NAD; Negative for unkempt, cachectic, contractures or pallor Nutritional Appearance: Negative for cachectic or obese HEENT Reports dry mucous membranes; Denies moist mucous membranes normocephalic and atraumatic Mouth ED: Yes dry mucous membranes Mouth: dry mucous membranes Eyes PERRL and EOMs intact bilaterally Neck no lymphadenopathy, supple and no JVD Resp normal respiratory effort and clear to auscultation bilaterally Cardio regular rate, regular rhythm, S1 normal heart sound, S2 normal heart sound and no murmurs GI non-tender, non-distended and no masses Inspection: Negative for abdominal distention Auscultation: normoactive bowel sounds Palpation: soft; Negative for tender, guarding, rigid, hepatomegaly, splenomegaly, hernia, mass, pulsatile mass or rebound tenderness present Back/Spine no CVA tenderness Extremity full ROM General Extremety ED: Negative for edema or tenderness General Extremity: Negative for edema Neuro CN's II-XII intact bilaterally and moves all extremities Sensorium / Orientation: alert, oriented to person, oriented to place and oriented to time; Negative for orientation impaired, confused or lethargic Motor Exam: strength 5/5 throughout Psych mental status grossly normal and thought process normal Appearance: Negative for unkempt Attitude: No agitated Mood & Affect: Negative for depressed, anxious or tearful Skin no wounds General Skin Exam: Negative for jaundice or pallor Lesions: no lesions Rashes: no rashes Trauma: Negative for abrasion Nails: Negative for discolored MDM MDM MDM Narrative Medical decision making narrative: 88-year-old female nausea, vomiting diarrhea. Suspect viral syndrome. Exam benign. Mildly dehydrated. Abdomen completely benign. Nontender no peritoneal signs. She will receive IV fluids and Zofran. P.o. fluid challenge. I do not think she needs any imaging. I will check screening labs due to her history of multiple myeloma and the vomiting and diarrhea. Repeat exam at 10:22 PM patient doing well. Abdomen benign. Nausea has resolved with the IV Zofran. She has been able to hold down ice water. She and her are comfort with her being discharged to home. She will be written for prescription of Zofran. Treated as a viral gastroenteritis. Follow-up as needed. Return if unable to keep fluids down or feeling worse. History & Record Review Discussion w/independent historian: Patient and Family Additional record(s) reviewed:: Prior inpatient record, Prior outpatient record, Prior ED visit and Prior labs Lab Data Attestation: I reviewed the patient's lab results. Lab results narrative: CBC shows a white count 2.9 she has been running neutropenic. H&H 12.6 and 38. Platelet count 90. Consistent with prior labs. Chemistry shows sodium 142. Gap 12. BUN 28 creatinine 0.99 consistent with dehydration. Glucose 130. Labs: Laboratory Results - last 24 hr 11/26/24 21:17 WBC 2.9 L RBC 4.19 L Hgb 12.6 Hct 38.6 MCV 92.1 MCH 30.1 MCHC 32.6 RDW Std Deviation 51.4 H RDW Coeff of Kar 15.1 H Plt Count 90 L MPV 11.3 Immature Gran % (Auto) 0.300 Neut % (Auto) 82.9 H Lymph % (Auto) 7.9 L Rowan % (Auto) 7.9 Eos % (Auto) 0.3 Baso % (Auto) 0.7 Absolute Neuts (auto) 2.4 Absolute Lymphs (auto) 0.23 L Nucleated RBC % 0 Sodium 142 Potassium 3.6 Chloride 106 Carbon Dioxide 24.0 Anion Gap 12 BUN 28 H Creatinine 0.99 Estim Creat Clear Calc 32.26 L Est GFR (MDRD) Non-Af 56 L BUN/Creatinine Ratio 28.7 H Glucose 130 H Calcium 9.1 Discharge Plan Triage Chief Complaint: Nausea/Vomiting/Diarrhea ED Provider: Vazquez Marc Dx/Rx/DC Orders Clinical Impression: Viral gastroenteritis, Acute dehydration, Hx of multiple myeloma Instructions: ED Gastroenteritis, Viral (Adult) Prescriptions: New ondansetron 4 mg tablet,disintegrating 4 mg PO Q6H PRN (Reason: nausea and vomiting) Qty: 7 0RF No Action acyclovir 400 mg tablet 400 mg PO DAILY lenalidomide [Revlimid] 10 mg capsule 10 mg PO QHS levothyroxine 50 mcg tablet 50 mcg PO DAILY omeprazole 40 mg capsule,delayed release(DR/EC) 40 mg PO DAILY pravastatin 80 mg tablet 80 mg PO DAILY ferrous sulfate [Feosol] 325 mg (65 mg iron) tablet 325 mg PO DAILY Caltrate 600 plus D 600 mg-20 mcg (800 unit) tablet,chewable 1 tab PO BID ondansetron 4 mg tablet,disintegrating 4 mg PO Q8H PRN PRN (Reason: Nausea) Qty: 10 0RF Primary Care Provider: Hilton Castro Referrals: Hilton Castro MD [Primary Care Provider] - 1-2 Days if not improving Activity Restrictions/Additional Instructions: Plenty of fluids and rest. Increase diet slowly as tolerated. Zofran as needed for nausea you may swallow it or let it dissolve under your tongue. Follow-up with your doctor if not improving return to emergency department if worse or unable to keep fluids down. Print Language: Taiwanese Disposition Disposition: Home, Self Care
[2024-11-26] MEDS: 0.9% Normal Saline (1000mL) 1,000 ML 1000 ML IV (21:16)
[2024-11-26] MEDS: Ondansetron 4 MG/2 ML Vial IV (21:16)
[2024-11-26 21:28] LABS: Absolute Lymphocyte Count 0.23 X10^3/uL (0.83-4.51); Absolute Neutrophil Count 2.4 X10^3/uL (2.0-7.7); Basophil# 0.02 X10^3/uL; Basophil% 0.7 % (0-1); Eosinophil# 0.01 X10^3/uL; Eosinophils% 0.3 % (0-5); Hematocrit 38.6 % (37-47); Hemoglobin 12.6 g/dL (12.0-15.0); Lymphocyte # 0.23 X10^3/ul (0.83-4.51); Lymphocyte % 7.9 % (19-41); Mean Corp Hgb Conc 32.6 g/dL (32-36); Mean Corpuscular Hgb 30.1 pg (27.0-32.0); Mean Corpuscular Volume 92.1 fL (81-99); Mean Platelet Vol. 11.3 fl (6.2-12.0); Monocyte# 0.23 X10^3/uL; Monocyte% 7.9 % (0-10); NRBC Flagged by Analyzer 0 % (0-5); Neutrophil # 2.41 X10^3/uL (2.7-7.7); Neutrophil % 82.9 % (47-70); POSITIVE COUNT YES; POSITIVE DIFFERENTIAL YES; POSITIVE MORPHOLOGY YES; Platelet Count 90 K/mm3 (150-450); RBC Distribution Width CV 15.1 % (11.6-14.6); RBC Distribution Width SD 51.4 fl (35.1-43.9); Red Blood Count 4.19 M/mm3 (4.2-5.4); White Blood Count 2.9 K/mm3 (4.4-11.0)
[2024-11-26 21:32] LABS: Differential Indicated SCAN CRITERIA MET
[2024-11-26 22:13] LABS: Anion Gap 12 (5-15); BUN 28 mg/dL (4-19); BUN/Creat Ratio 28.7 RATIO (10-20); Calcium,Total 9.1 mg/dL (7.6-11.0); Chloride 106 mmol/L (98-108); Creatinine, Serum 0.99 mg/dL (0.70-1.20); EST Glomerular Filtration Rate 56 (>60); Estimated Creatinine Clearance 32.26 ml/min (50-250); Glucose 130 mg/dL (70-99); Potassium 3.6 mmol/L (3.3-5.1); Sodium Level 142 mmol/L (133-145)
[2024-11-26 22:29] VITALS: BP 106/53; PULSE 77; RESP 20; TEMP 36.9; O2SAT 96
[2024-11-26 22:39] LABS: Anisocytosis 1+; Bite Cell RARE; Ovalocyte 2+; Platelet Estimate MOD DEC (ADEQ); Schistocytes RARE
== END 2024-11-26 22:39 | disposition home or self-care (01) ==
PROVIDERS: Emergency Provider Emergency Medicine; PCP Family Medicine; Visit Provider Emergency Medicine
DX: A08.4 Viral intestinal infection, unspecified (principal); E86.0 Dehydration; E78.5 Hyperlipidemia, unspecified; E03.9 Hypothyroidism, unspecified; Z79.899 Other long term (current) drug therapy
CPT/HCPCS: 80048; 85025; 96361; 96374; 96376; 99283; A4216; J2405

== ENCOUNTER 2025-07-19 16:22 | Emergency (ER) | payer MEDICARE, OTHER, SELFPAY ==
[2025-07-19 16:23] VITALS: BP 143/73; PULSE 81; RESP 16; TEMP 36.8; O2SAT 97; BMI 20.5
--- NOTE | 2025-07-19 16:36 | EX.ED.DYSGE1 ---
HPI History of Present Illness Chief Complaint: Cold Sx [facility] Medical History Multiple myeloma Contact with and (suspected) exposure to other viral communicable diseases Hyperlipidemia Hypothyroid Home Medications ?Medication ?Instructions ?Recorded ?Last Taken ?Type acyclovir 400 mg tablet 400 mg PO DAILY 08/16/23 Unknown History calcium 600 mg (as carbonate)-vit 1 tab PO BID 08/16/23 Unknown History D3 20 mcg (800 unit) chewable tablet (Caltrate plus D) ferrous sulfate 325 mg (65 mg 325 mg PO DAILY 08/16/23 Unknown History iron) tablet (Feosol) lenalidomide 10 mg capsule 10 mg PO QHS 08/16/23 Unknown History (Revlimid) levothyroxine 50 mcg tablet 50 mcg PO DAILY 08/16/23 Unknown History omeprazole 40 mg capsule,delayed 40 mg PO DAILY 08/16/23 Unknown History release pravastatin 80 mg tablet 80 mg PO DAILY 08/16/23 Unknown History ondansetron 4 mg disintegrating 4 mg PO Q8H PRN PRN Nausea #10 tabs 10/09/23 Unknown Rx tablet ondansetron 4 mg disintegrating 4 mg PO Q6H PRN nausea and 11/26/24 Unknown Rx tablet vomiting #7 tabs Allergy/AdvReac Type Severity Reaction Status Date / Time latex Allergy Rash Verified 07/19/25 16:23 Sulfa (Sulfonamide Allergy Hives Verified 07/19/25 16:23 Antibiotics) Social History current occupational status: retired Smoking Status: Never smoker EXAM Physical Exam Const Vital Signs: 07/19/25 16:23 07/19/25 16:39 07/19/25 18:20 Temperature 98.3 F 98.3 F Temperature Source Oral Pulse Rate 81 81 Respiratory Rate 16 16 Respiratory Effort Normal Respiratory Pattern Normal Blood Pressure 143/73 H 143/73 H Blood Pressure Mean 96 96 Pulse Ox 97 97 Oxygen Delivery Method Room Air MDM MDM MDM Narrative Medical decision making narrative: HISTORY OF PRESENT ILLNESS: Chief complaint: Cough, congestion 89-year-old female history of hypothyroidism, myeloma, hyperlipidemia, GERD presents with cough and congestion. She states this began yesterday. She further states she has had no chest pain, shortness of breath. No leg swelling. No vomiting or diarrhea noted. No sick contacts noted. States she got her flu shot this year. She is concerned she may be developing a viral illness with pneumonia and she is concerned because she has multiple myeloma currently in remission. REVIEW OF SYSTEMS: Pertinent positives: Cough, congestion Pertinent negatives: Shortness of breath, chest pain PHYSICAL EXAM: Nursing triage notes reviewed, Vital signs reviewed Constitutional: please see [facility] HENT: MMM Eyes: Pupils equal round and reactive to light, Extraocular muscles intact Neck: No stridor, no JVD, full neck ROM Lungs: Clear to auscultation, No wheezing or rales. No increased work of breathing, no conversational dyspnea, no accessory muscle use, no nasal flaring. No respiratory distress noted Heart: Regular rate and rhythm, No murmurs, No rubs and No gallops, 2+ distal pulses (radial, femoral, posterior tibial) in all extremities Abdomen: Soft, there is no tenderness, rigidity, rebound or guarding, no obvious peritoneal signs, no palpable pulsatile abdominal masses, no auscultated abdominal bruit : No CVAT Extremities: No edema Neuro: No new focal neurological deficits, cranial nerves II through XII intact, 5/5 strength in all present extremities. Intact sensation to light touch in all present extremities, 2+ reflexes bilateral patella tendons. Skin: No rash or lesions noted MEDICAL DECISION MAKING: Chief Complaint: please see [facility] External records reviewed: Reviewed prior imaging: Reviewed chest x-ray from 2023 that showed right lower lobe infiltrate Factors affecting care: As per HPI Social determinants of health: none History obtained from others: none Consults: none [facility] Narrative: The patient was initially hemodynamically stable, afebrile and nontoxic-appearing. Exam without cardiopulmonary abnormalities. No stigmata of infection HEENT exam. I considered the following differential diagnosis: COVID/flu/RSV/pneumonia/other viral illness I obtained 2 view chest x-ray, COVID/RSV/flu swab to further determine if the patient was suffering from a life-threatening etiology. As the patient had no fever, vital signs are manage or cardiopulmonary symptoms other than cough and congestion I did not obtain additional lab test as they are not indicated at this time. ALL IMAGES (IF OBTAINED) HAVE BEEN PERSONALLY REVIEWED AND INTERPRETED BY MYSELF. COVID/flu/RSV negative I have personally reviewed the patient's chest x-ray. Chest x-ray is unremarkable for pulmonary edema, pneumothorax, pneumonia or focal cardiopulmonary abnormality. The synthesis of the patient's history, physical exam, labs and images suggest likely viral URI. No indication for admission at this time as patient not hypoxic and stable vitals. Recommended Tylenol ibuprofen and plenty of fluids. Recommended PCP follow-up. Strict return precautions were discussed The patient and/or family, caregivers express understanding. The patient and/or family, caregivers agrees with the plan. Shared decision making: I will have a discussion with the patient and or visitors regarding risk/benefits of further testing or admission. They will be made aware of of the risk/benefits inherent in this decision they will be given the opportunity to voice understanding. Total critical care time today provided was at least 0 minutes. This excludes separately billable procedures. Critical care time (if documented) is secondary to the patient having high probability of clinically significant/life threatening deterioration in the patient's condition which required my urgent intervention. Impression: 1. Cough 2. Congestion 3. Viral URI Dispo: Discharge home This note was generated with [employer] dictation software. It may contain incorrect words, spelling, and punctuation that were not noted in review of the chart prior to signing. Radiography Diagnostic Testing: Clinical Impression(s) from Imaging Studies Chest X-Ray 07/19/25 16:50 IMPRESSION: Bilateral breast implants limits evaluation of bilateral lower thorax however likely no focal consolidations. Reading Location: [facility] Discharge Plan Triage Chief Complaint: Cold Sx ED Provider: Bossman Tapia Dx/Rx/DC Orders Instructions: ED URI, Viral, No Abx (Adult) Prescriptions: No Action acyclovir 400 mg tablet 400 mg PO DAILY lenalidomide [Revlimid] 10 mg capsule 10 mg PO QHS levothyroxine 50 mcg tablet 50 mcg PO DAILY omeprazole 40 mg capsule,delayed release(DR/EC) 40 mg PO DAILY pravastatin 80 mg tablet 80 mg PO DAILY ferrous sulfate [Feosol] 325 mg (65 mg iron) tablet 325 mg PO DAILY Caltrate 600 plus D 600 mg-20 mcg (800 unit) tablet,chewable 1 tab PO BID ondansetron 4 mg tablet,disintegrating 4 mg PO Q8H PRN PRN (Reason: Nausea) Qty: 10 0RF ondansetron 4 mg tablet,disintegrating 4 mg PO Q6H PRN (Reason: nausea and vomiting) Qty: 7 0RF Primary Care Provider: Hilton Castro Referrals: Hilton Castro MD [Primary Care Provider, [facility]] Activity Restrictions/Additional Instructions: Thank you for trusting us with your care today! Your x-ray and viral swab were negative for signs of pneumonia, COVID, RSV or flu. You are likely suffering from a another viral illness. There is no specific treatment for viral upper respiratory tract infections. Please drink plenty of fluids. Please take Tylenol (2 pills, 650 mg), ibuprofen (2 pills, 400 mg) every 6 hours as needed for pain and fever control. Please return to the emergency department if your symptoms change or worsen. Please follow with your primary care physician for further outpatient evaluation and management. Print Language: Kyrgyz Disposition Disposition: Home, Self Care Discharge Date/Time: 07/19/25 18:28
--- NOTE | 2025-07-19 16:50 | RAD_ITS ---
PROCEDURE: CHEST PA AND LATERAL 07/19/2025 REASON FOR EXAM: COUGH TECHNIQUE: Procedure Code: RADCXR Modality: DX Procedure: CHEST PA AND LATERAL COMPARISON: 06/20/24 FINDINGS: Bilateral breast implants limits evaluation of bilateral lower thorax however likely no focal consolidations. No pleural effusion or pneumothorax. Cardiac silhouette is within normal limits. No acute fractures. RAD/Chest PA and Lateral IMPRESSION: Bilateral breast implants limits evaluation of bilateral lower thorax however l ikely no focal consolidations. Reading Location: [facility]
--- OUTSIDE RECORDS SUMMARY | 2025-07-19 16:52 | XMS RPT_ITS | CCD ---
Author Organization [facility] Care Team Providers Care Meteorological Aide Name Role Phone AME MOLINASILVINA Marrero Referring Unavaila ble IERACI, FROYLAN Primary Care Unavailable IERACI, FROYLAN Referring Unavailable IERACI, FROYLAN Primary Care Unavailable IERACI, FROYLAN Referring Unavailable IERACI, FROYLAN Primary Care Unavailable Hilton Pena MD Primary Care Provider Unava Hilton Rodriguez MD Primary Care Provider Hilton Pena MD Primary Care Provider [phone] Hilton Pena MD Primary Care Provider Hilton Pena MD Primary Care Provider AUREA, MOUNIR Admitting Unavailable AUREA, MOUNIR Attending Unavailable HILTON PENA Primary Care Unavailable AZEB ANAYAS Referring Unavailable HILTON PENA Primary Care Unavailable ROSEMARYRAFAALEX Referring Unavailable HILTON PENA Primary Care Unavailable HILTON PENA Primary Care Unavailable PROVIDER, UNKNOWN Attending Unavailable PROVIDER, UNKNOWN Admitting Unavailable Guerda HYLTON, Katey Unavailable Mariela Masters RN Unavailable Jennifer Mathew Unavailable Unavailable Katey Croft RN Unavailable Mariela Masters RN Unavailable JAIME BEATTY Referring Unavailab HILTON Smith Primary Care Unavailable JAIME BEATTY Referring Unavailab HILTON Smith Primary Care Unavailable Hilton Pena MD Primary Care Provider [phone] Hilton Pena MD Primary Care Provider Knoble DRAGGER[employer] TUBE BENDER, Andrew Unavailable Leonard BELL, Ruthy Unavailable Dr. Hilton Pena MD Primary Care Provider [phone] Dr. Vazquez Marc MD Emergency Provider [phone] Gloria, Hilton Referring Unavailable Arash Shearer Attending Unavailable Gloria, Hilton Primary Care Unavailable Arash Shearer Attending Unavailable Arash Shearer Referring Unavailable Gloria, Hilton Primary Care Unavailable Bossman Tapia Attending Unavailable Gloria, Hilton Primary Care Unavailable Gloria, Hilton Primary Care Unavailable Josue Daltony Attending Unavailable Le, Rahul Referring Unavailable Gloria, Hilton Primary Care Unavailable Vazquez Marc Attending Unavailable Rahul Dalton Attending Unavailable Gloria, Hilton Primary Care Unavailable Gloria, Hilton Primary Care Unavailable Gloria, Hilton Referring Unavailable Aarsh Shearer Attending Unavailable Knoble DRAGGER[employer] TUBE BENDER, Andrew Unavailable Leonard BELL, Ruthy Unavailable Jaime Beatty MD Unavailable Suman DRAGGER.[employer] TUBE BENDER, Andrew Unavailable Leonard BELL, Ruthy Unavailable [phone] PROVIDER, UNKNOWN Referring Unavailable GLORIA, HILTON A Primary Care Unavailable GLORIA, HILTON A Primary Care Unavailable ANDREY, SAVETA Referring Unavailable GLORIA, HILTON A Primary Care Unavailable ANDREY, SAVETA Referring Unavailable JAIME BEATTY Attending Unavailab le GLORIA, HILTON A Primary Care Unavailable JAIME BEATTY Referring Unavailab le GLORIA, HILTON A Primary Care Unavailable JAIME BEATTY Referring Unavailab le GLORIA, HILTON A Primary Care Unavailable RUTHY VALLE Attending Unavailable VINCE FREITAS Referring Unavailable GLORIA, HILTON A Primary Care Unavailable MELE MEJIA Attending Unavailable GLORIA, HILTON A Primary Care Unavailable JAIME BEATTY Referring Unavailab le GLORIA, HILTON A Primary Care Unavailable RUTHY VALLE Attending Unavailable GLORIA, HILTON A Primary Care Unavailable JAIME BEATTY Referring Unavailab le GLORIA, HILTON A Primary Care Unavailable JAIME BEATTY Referring Unavailab le GLORIA, HILTON A Primary Care Unavailable ANDREY, SAVETA Referring Unavailable VINCE FREITAS Attending Unavailable GLORIA, HILTON A Primary Care Unavailable ANDREY, SAVETA Referring Unavailable ANDREY, SAVETA Attending Unavailable GLORIA, HILTON A Primary Care Unavailable JAIME BEATTY Referring Unavailab le VINCE FREITAS Attending Unavailable GLORIA, HILTON A Primary Care Unavailable ANDREY, SAVETA Referring Unavailable GLORIA, HILTON A Primary Care Unavailable GLORIA, HILTON A Primary Care Unavailable JAIME BEATTY Attending Unavailab le JAIME BEATTY Referring Unavailab le GLORIA, HILTON A Primary Care Unavailable JAIME BEATTY Referring Unavailab le GLORIA, HILTON A Primary Care Unavailable JAIME BEATTY Referring Unavailab le GLORIA, HILTON A Primary Care Unavailable JAIME BEATTY Referring Unavailab le GLORIA, HILTON A Primary Care Unavailable JAIME BEATTY Referring Unavailab le GLORIA, HILTON A Primary Care Unavailable JAIME BEATTY Referring Unavailab le GLORIA, HILTON A Primary Care Unavailable JAIME BEATTY Referring Unavailab le VINCE FREITAS Referring Unavailable GLORIA, HILTON A Primary Care Unavailable GLORIA, HILTON A Primary Care Unavailable ANDREY, SAVETA Referring Unavailable VINCE FREITAS Attending Unavailable GLORIA, HILTON A Primary Care Unavailable JAIME BEATTY Referring Unavailab le GLORIA, HILTON A Primary Care Unavailable JAIME BEATTY Referring Unavailab le GLORIA, HILTON A Primary Care Unavailable GLORIA, HILTON A Primary Care Unavailable ANDREY, SAVETA Referring Unavailable ANDREY, SAVETA Attending Unavailable GLORIA, HILTON A Primary Care Unavailable JAIME BEATTY Referring Unavailab le GLORIA, HILTON A Primary Care Unavailable JAIME BEATTY Referring Unavailab le GLORIA, HILTON A Primary Care Unavailable JAIME BEATTY Referring Unavailab le VINCE FREITAS Attending Unavailable GLORIA, HILTON A Primary Care Unavailable JAIME BEATTY Referring Unavailab le GLORIA, HILTON A Primary Care Unavailable JAIME BEATTY Referring Unavailab le GLORIA, HILTON A Primary Care Unavailable ANDREY, SAVETA Referring Unavailable JAIME BEATTY Attending Unavailab le GLORIA, HILTON A Primary Care Unavailable JAIME BEATTY Referring Unavailab le GLORIA, HILTON A Primary Care Unavailable GLORIA, HILTNO A Primary Care Unavailable JAIME BEATTY Referring Unavailab le GLORIA, HILTON A Primary Care Unavailable ANDREW STANTON Referring Unavailable GLORIA, HILTON A Primary Care Unavailable JAIME BEATTY Referring Unavailab le GLORIA, HILTON A Primary Care Unavailable JAIME BEATTY Attending Unavailab le ANDREY, SAVETA Referring Unavailable GLORIA, HILTON A Primary Care Unavailable ANDREY, SAVETA Referring Unavailable VINCE FREITAS Attending Unavailable GLORIA, HILTON A Primary Care Unavailable ANDREY, SAVETA Referring Unavailable GLORIA, HILTON A Primary Care Unavailable ANDREW STANTON Attending Unavailable GLORIA, HILTON A Primary Care Unavailable JAIME BEATTY Referring Unavailab le GLORIA, HILTON A Primary Care Unavailable ANDREY, SAVETA Attending Unavailable ANDREY, SAVETA Referring Unavailable GLORIA, HILTON A Primary Care Unavailable JAIME BEATTY Referring Unavailab le GLORIA, HILTON A Primary Care Unavailable JAIME BEATTY Referring Unavailab le GLORIA, HILTON A Primary Care Unavailable ANDREY, SAVETA Attending Unavailable Allergies Allergy Classification Reported Allergen(s) Allergy Type Date of Onset Reaction(s) Facility Sulfonamides (antibiotic) (1 source) Sulfonamides (Antibiotic) Drug Allergy 9 Swelling [facility] (1 source) Adhesive Tape Propensity to adverse reactions to drug 4 [facility] (4 sources) Latex Propensity to adverse reactions to drug 4 Itching [facility] Comment on above: latex tape (1 source) Sulfonamides (Antibiotic) Propensity to adverse reactions to drug 1 [facility] Work Phone: (20 sources) Sulfonamides (Antibiotic); Translations: [SULFA (SULFONAMIDE ANTIBIOTICS)] Drug Allergy 9 Swelling [facility] Work Phone: (20 sources) Adhesive Tape-Silicones; Translations: [ADHESIVE TAPE-SILICONES] Drug Allergy 9 [facility] Work Phone: (3 sources) Sulfonamides (Antibiotic) Allergy to substance 4 [facility] (1 source) Latex Drug allergy (disorder) 5 [facility] (1 source) Sulfonamides (Antibiotic) Drug allergy (disorder) 5 [facility] Medications Current Medications Medication Drug Class(es) Dates Sig (Normalized) Sig (Original) acyclovir 400 mg oral tablet (20 sources) Herpesvirus Nucleoside Analog DNA Polymerase Inhibitor, Herpes Simplex Virus Nucleoside Analog DNA Polymerase Inhibitor, Herpes Zoster Virus Nucleoside Analog DNA Polymerase Inhibitor Start: 08-16-2023 Acyclovir Active MG August 16, 2023 1:00am Start: 05-31-2023 End: 11-01-2024 take 1 tablet by mouth once daily acyclovir (ZOVIRAX) 400 mg tablet Take 1 tablet by mouth once daily. 30 tablet 4 11/01/2024 Active Start: 02-23-2023 End: 03-31-2023 take 1 tablet by mouth once daily acyclovir (ZOVIRAX) 400 mg tablet Take 1 tablet by mouth once daily. 30 tablet 1 03/31/2023 Active Comment on above: Take 1 tablet by lotus once daily. aspirin 81 mg delayed release oral tablet (20 sources) Platelet Aggregation Inhibitor, Nonsteroidal Anti-inflammatory Drug aspirin, enteric coated (ASPIRIN, ENTERIC COATED) 81 mg EC tablet Take 81 mg by mouth. Active Comment on above: Take 81 mg by mouth. calcium carbonate 1500 mg oral tablet (1 source) Start: 1 take 1 tablet by mouth twice daily calcium carbonate 600 MG TABS tablet Take 1 tablet by mouth 2 times daily 0 09/20/2010 Active calcium carbonate 1500 mg / cholecalciferol 800 unt chewable tablet (20 sources) Vitamin D Start: Calcium Carbonate-Vitamin D3 (Caltrate 600 Plus D) 600 mg-20 mcg (800 unit) tablet,chewable Active 1 {tbl} PO TWICE A DAY August 16, 2023 1:00am Start: 03-29-2019 take 1 tablet by lotus twice daily calcium carbonate-vitamin D3 (CALTRATE WITH VITAMIN D3) 600 mg(1,500mg) -800 unit tab Take 1 tablet by mouth twice daily. 03/29/2019 Active Comment on above: Take 1 tablet by lotus twice daily. docosahexaenoic acid 120 mg / eicosapentaenoic acid 180 mg oral capsule (1 source) take 1 capsule by mouth once daily fish oil-omega-3 fatty acids 1000 MG capsule Take 1 g by mouth daily 0 Active ferrous sulfate 325 mg oral tablet (20 sources) Start: 08-16-2023 take 1 tablet by mouth once daily Ferrous Sulfate (Feosol) 325 mg (65 mg iron) tablet Active 325 mg PO DAILY August 16, 2023 1:00am FERROUS SULFATE ORAL Take 1 tablet by mouth. Active FERROUS SULFATE ORAL Take 1 tablet by mouth. 0 Active take 1 tablet by mouth once brianda y Ferrous Sulfate (IRON CR PO) Take 1 tablet by mouth daily 0 Active Comment on above: Take 1 tablet by lotus th. levothyroxine sodium 0.05 mg oral tablet (20 sources) l-Thyroxine Start: 08-16-19 End: 12-04-19 take 1 tablet by mouth once daily for thyroid dysfunction levothyroxine (SYNTHROID) 50 mcg tablet Indications: Hypothyroidism, acquired Take 1 tablet by mouth once daily. Take on empty stomach. For Thyroid. 90 tablet 1 12/03/2024 Active Start: 10-08-2018 End: 02-21-2023 take 1 tablet by mouth once daily for thyroid dysfunction levothyroxine (SYNTHROID) 50 mcg tablet Indications: Hypothyroidism, acquired Take 1 tablet by mouth once daily. Take on empty stomach. For Thyroid. 90 tablet 1 08/12/2022 02/21/2023 Discontinued Comment on above: Take 1 tablet by lotus th once daily. Take on empty stomach. For Thyroid. nirmatrelvir tablet 300 mg (150 mg x 2) and ritonavir tablet 100 mg in a dose pack (PAXLOVID) (5 sources) Start: 04-25-2024 End: 04-30-2024 nirmatrelvir tablet 300 mg (150 mg x 2) and ritonavir tablet 100 mg in a dose pack (PAXLOVID) Administer TWO pink nirmatrelvir 150 mg tablets and ONE white ritonavir 100 mg tablet for a total of three tablets twice daily. 30 tablet 04/25/2024 04/30/2024 Active Start: 03-18-2022 End: 03-23-2022 nirmatrelvir tablet 300 mg ( 150 mg x 2) and ritonavir tablet 100 mg in a dose pack (PAXLOVID) Indications: COVID-19 Administer TWO pink nirmatrelvir 150 mg tablets and ONE white ritonavir 100 mg tablet for a total of three tablets twice daily. 30 tablet 0 03/18/2022 03/23/2022 Active Comment on above: Administer TWO pink nirmatrelvir 150 mg tablets and ONE white ritonavir 100 mg tablet for a total of three tablets twice daily. omega-3 acid ethyl esters (longterm) 1000 mg oral capsule (20 sources) omega-3 acid eth yl esters (LOVAZA) 1 gram capsule Take 1 g by mouth. Active Comment on above: Take 1 g by mouth. omeprazole 40 mg delayed release oral capsule (20 sources) Proton Pump Inhibitor Start: 2 End: take 1 capsule by mouth once daily before breakfast omeprazole (PRILOSEC) 40 mg capsule Indications: GERD without esophagitis Take 1 capsule by mouth daily before breakfast. 1/2 hr before meal. 90 capsule 1 12/03/2024 Active Start: 02-06-2019 take 1 capsule by mo [facility] once daily omeprazole (PRILOSEC) 20 MG delayed release capsule Indications: Gastroesophageal reflux disease, esophagitis presence not specified Take 1 capsule by mouth daily 90 capsule 1 02/06/2019 Active Comment on above: Take 1 capsule by [facility] daily before breakfast. 1/2 hr before meal. ondansetron 4 mg disintegrating oral tablet (20 sources) Serotonin-3 Receptor Antagonist Start: 11-27-19 take 1 tablet by mouth every six hours as needed for nausea and vomiting Ondansetron 4 mg tablet,disintegrati ng Active 4 mg PO EVERY 6 HOURS as needed for nausea and vomiting November 26, 2024 12:00am Start: 11-03-2023 take 1 tablet by lotus once daily as needed for nausea ondansetron (ZOFRAN) 8 mg tablet Take 1 tablet by mouth once daily as needed for nausea/vomiting. 30 tablet 11/03/2023 Active Start: 10-09-2023 take 1 tablet by lotus every eight hours as needed for nausea Ondansetron 4 mg tablet,disintegrating Active 4 mg PO EVERY 8 HOURS NEEDED as needed for Nausea October 09, 2023 12:00am Comment on above: Take 1 tablet by lotus once daily as needed for nausea/vomiting. pravastatin sodium 80 mg oral tablet (20 sources) HMG-CoA Reductase Inhibitor Start: 12-09-19 End: 11-20-19 25 take 1 tablet by mouth once daily pravastatin (PRAVACHOL) 80 mg tablet Take 1 tablet by mouth once daily. 90 tablet 1 11/19/2024 Active Start: 06-09-2022 take 1 tablet by lotus th once daily pravastatin (PRAVACHOL) 80 mg tablet Take 1 tablet by mouth once daily. 90 tablet 1 06/09/2022 Active Start: 03-04-2019 End: 02-25-2022 take 1 tablet by mouth once daily pravastatin (PRAVACHOL) 80 mg tablet Take 1 tablet by mouth once daily. 90 tablet 1 02/25/2022 Active Comment on above: Take 1 tablet by lotus th once daily. 1000 ml sodium chloride 9 mg/ml injection (4 sources) Start: 10-25-2021 0.9 % sodium chloride infusion Start: 10-25-2021 sodium chlorid e flush 0.9 % injection 5-40 mL vitamin b12 0.5 mg oral tablet (20 sources) Vitamin B12 Start: 02-25-2022 take 1 tablet by mouth once daily cyanocobalamin (VITAMIN B-12) 500 mcg tablet Take 1 tablet by mouth once daily. 02/25/2022 Active take 1 tablet by mouth once brianda y Cyanocobalamin (VITAMIN B-12 PO) Take 1 tablet by mouth daily 0 Active Comment on above: Take 1 tablet by lotus th once daily. Completed/Discontinued Medications Medication Drug Class(es) Dates Sig (Normalized) Sig (Original) acetaminophen 500 mg oral tablet (18 sources) Start: 03-21-2025 End: 03-21-2025 take 1 dose by mouth once, then take 4000 mg by mouth once daily 1,000 mg, ORAL, ONCE, 1 dose, On Mon03/21/25 at 1330, No more than 4000 mg of acetaminophen should be given per day (FROM ALL SOURCES) Start: 02-21-2025 End: 02-21-2025 take 1 dose by mouth once, then take 4000 mg by mouth once daily 1,000 mg, ORAL, ONCE, 1 dose, On Mon02/21/25 at 1400, No more than 4000 mg of acetaminophen should be given per day (FROM ALL SOURCES) Start: 01-23-2025 End: 01-23-2025 take 1 dose by mouth once, then take 4000 mg by mouth once daily 1,000 mg, ORAL, ONCE, 1 dose, On Mon01/23/25 at 1400, No more than 4000 mg of acetaminophen should be given per day (FROM ALL SOURCES) Start: 12-25-2024 End: 12-25-2024 take 1 dose by mouth once, then take 4000 mg by mouth once daily 1,000 mg, ORAL, ONCE, 1 dose, On Mon12/25/24 at 1130, No more than 4000 mg of acetaminophen should be given per day (FROM ALL SOURCES) Start: 11-29-2024 End: 11-29-2024 take 1 dose by mouth once, then take 4000 mg by mouth once daily 1,000 mg, ORAL, ONCE, 1 dose, On Mon11/29/24 at 1230, No more than 4000 mg of acetaminophen should be given per day (FROM ALL SOURCES) Start: 11-01-2024 End: 11-01-2024 take 1 dose by mouth once, then take 4000 mg by mouth once daily 1,000 mg, ORAL, ONCE, 1 dose, On Mon11/01/24 at 1330, No more than 4000 mg of acetaminophen should be given per day (FROM ALL SOURCES) Start: 10-08-2024 End: 10-08-2024 take 1 dose by mouth once, then take 4000 mg by mouth once daily 1,000 mg, ORAL, ONCE, 1 dose, On Mon10/08/24 at 1330, No more than 4000 mg of acetaminophen should be given per day (FROM ALL SOURCES) Start: 09-06-2024 End: 09-06-2024 take 1 dose by mouth once, then take 4000 mg by mouth once daily 1,000 mg, ORAL, ONCE, 1 dose, On Mon09/06/24 at 1400, No more than 4000 mg of acetaminophen should be given per day (FROM ALL SOURCES) Start: 08-09-2024 End: 08-09-2024 take 1 dose by mouth once, then take 4000 mg by mouth once daily 1,000 mg, ORAL, ONCE, 1 dose, On Mon08/09/24 at 1430, No more than 4000 mg of acetaminophen should be given per day (FROM ALL SOURCES) Start: 07-12-2024 End: 07-12-2024 take 1 dose by mouth once, then take 4000 mg by mouth once daily 1,000 mg, ORAL, ONCE, 1 dose, On Mon07/12/24 at 1430, No more than 4000 mg of acetaminophen should be given per day (FROM ALL SOURCES) Start: 06-14-2024 End: 06-14-2024 take 1 dose by mouth once, then take 4000 mg by mouth once daily 1,000 mg, ORAL, ONCE, 1 dose, On Mon06/14/24 at 1230, No more than 4000 mg of acetaminophen should be given per day (FROM ALL SOURCES) Start: 05-17-2024 End: 05-17-2024 take 1 dose by mouth once, then take 4000 mg by mouth once daily 1,000 mg, ORAL, ONCE, 1 dose, On Mon05/17/24 at 1030, No more than 4000 mg of acetaminophen should be given per day (FROM ALL SOURCES) Start: 04-19-2024 End: 04-19-2024 take 1 dose by mouth once as needed for pain, then take 4000 mg by mouth once daily as needed for pain 1,000 mg, ORAL, ONCE, 1 dose, On Mon04/19/24 at 1400, No more than 4000 mg of acetaminophen should be given per day (FROM ALL SOURCES), If ordered PRN for pain, patient/guardian may elect to receive this medication for higher pain levels INSTEAD of the opioid, if preferred: N/A Start: 03-22-2024 End: 03-22-2024 take 1 dose by mouth once as needed for pain, then take 4000 mg by mouth once daily as needed for pain 1,000 mg, ORAL, ONCE, 1 dose, On Mon03/22/24 at 1500, No more than 4000 mg of acetaminophen should be given per day (FROM ALL SOURCES), If ordered PRN for pain, patient/guardian may elect to receive this medication for higher pain levels INSTEAD of the opioid, if preferred: N/A Start: 02-21-2024 End: 02-21-2024 acetaminophen 1,000 mg tab(s ) (TYLENOL) Start: 01-26-2024 End: 01-26-2024 acetaminophen 1,000 mg tab(s ) (TYLENOL) Start: 12-29-2023 End: 12-29-2023 acetaminophen 1,000 mg tab(s ) (TYLENOL) Start: 12-01-2023 End: 12-01-2023 acetaminophen 1,000 mg tab(s ) (TYLENOL) amoxicillin 875 mg / clavulanate 125 mg oral tablet (1 source) Penicillin-class Antibacterial Start: 06-20-2024 End: 11-26-2024 Amoxicillin-Pot Clavulanate 875-125 mg tablet Discontinued 1 {tbl} PO TWICE A DAY 12 05June 20, 2024 1:00am November 26, 2024 8:52pm bisacodyl 5 mg delayed release oral tablet (2 sources) Stimulant Laxative Start: 09-14-2021 End: 02-25-2022 Bisacodyl (DULCOLAX) 5 mg tab Indications: Change in bowel habits , Acute constipation , Dark stools Use as directed for Miralax / Gatorade Bowel Prep Kit 4 tablet 0 09/14/2021 02/25/2022 Discontinued Comment on above: Use as directed for Miralax / Gatorade Bowel Prep Kit cefadroxil 500 mg oral capsule (20 sources) Cephalosporin Antibacterial Start: 12-27-2022 End: 05-06-2023 take 1 capsule by mouth twice daily cefADROxil (DURICEF) 500 mg capsule Indications: Cellulitis of skin Take 1 capsule by mouth twice daily. 14 capsule 0 12/27/2022 05/06/2023 Discontinued (Course of therapy completed) Comment on above: Take 1 capsule by mo ut twice daily. cephalexin 500 mg oral capsule (1 source) Cephalosporin Antibacterial Start: 12-27-2022 End: 12-27-2022 take 1 capsule by mouth four times daily cephALEXin (KEFLEX) 500 mg capsule Indications: Cellulitis of skin Take 1 capsule by mouth four times daily for 5 days. 20 capsule 0 12/27/2022 12/27/2022 Discontinued Comment on above: Take 1 capsule by mo ut four times daily for 5 days. clobetasol propionate 0.0005 mg/mg topical ointment (3 sources) Corticosteroid Start: 12-23-2019 End: 02-25-2022 clobetasol (TEMOVATE) 0.05 % ointment Apply to affected area twice daily as needed. use a small pea-sized amount to vulva as needed for irritation 15 g 0 12/23/2019 02/25/2022 Discontinued Start: 08-06-2018 clobetasol (TE MOVATE) 0.05 % ointment Indications: Lichen sclerosus Apply topically 2 times daily. 60 g 0 08/06/2018 Active Comment on above: Apply to affected ar ea twice daily as needed. use a small pea-sized amount to vulva as needed for irritation CYANOCOBALAMIN, VITAMIN B-12, ORAL (2 sources) End: 02-25-2022 CYANOCOBALAMIN, VITAMIN B-12, ORAL Take 1 tablet by mouth. 0 02/25/2022 Discontinued (Changing Therapy/Dosage Form) CYANOCOBALAMIN, VITAMIN B-12, ORAL Take 1 tablet by mouth. 0 Active Comment on above: Take 1 tablet by lotus th. 15 ml daratumumab-fihj 120 mg/ml / hyaluronidase-fihj 2000 unt/ml injection (18 sources) Endoglycosidase, [id number] Cytolytic Antibody Start: 03-21-2025 End: 03-21-2025 1,800 mg, SUBCUTANEOUS, ONCE, 1 dose, On Mon03/21/25 at 1330, ++FOR SUBCUTANEOUS ADMINISTRATION ONLY++ EXP: Protect From Light. Inject subcutaneously into subcutaneous tissue on the abdomen approximately 3 inches to the right or left of the navel over 3 to 5 minutes. Start: 02-21-2025 End: 02-21-2025 1,800 mg, SUBCUTANEOUS, ONCE , 1 dose, On Mon02/21/25 at 1400, ++FOR SUBCUTANEOUS ADMINISTRATION ONLY++ EXP: Protect From Light. Inject subcutaneously into subcutaneous tissue on the abdomen approximately 3 inches to the right or left of the navel over 3 to 5 minutes. Start: 01-23-2025 End: 01-23-2025 1,800 mg, SUBCUTANEOUS, ONCE , 1 dose, On Mon01/23/25 at 1400, ++FOR SUBCUTANEOUS ADMINISTRATION ONLY++ EXP: Protect From Light. Inject subcutaneously into subcutaneous tissue on the abdomen approximately 3 inches to the right or left of the navel over 3 to 5 minutes. Start: 12-25-2024 End: 12-25-2024 1,800 mg, SUBCUTANEOUS, ONCE , 1 dose, On Mon12/25/24 at 1130, ++FOR SUBCUTANEOUS ADMINISTRATION ONLY++ EXP: Protect From Light. Inject subcutaneously into subcutaneous tissue on the abdomen approximately 3 inches to the right or left of the navel over 3 to 5 minutes. Start: 11-29-2024 End: 11-29-2024 1,800 mg, SUBCUTANEOUS, ONCE , 1 dose, On Mon11/29/24 at 1230, ++FOR SUBCUTANEOUS ADMINISTRATION ONLY++ EXP: Protect From Light. Inject subcutaneously into subcutaneous tissue on the abdomen approximately 3 inches to the right or left of the navel over 3 to 5 minutes. Start: 11-01-2024 End: 11-01-2024 1,800 mg, SUBCUTANEOUS, ONCE , 1 dose, On Mon11/01/24 at 1330, ++FOR SUBCUTANEOUS ADMINISTRATION ONLY++ EXP: Protect From Light. Inject subcutaneously into subcutaneous tissue on the abdomen approximately 3 inches to the right or left of the navel over 3 to 5 minutes. Start: 10-08-2024 End: 10-08-2024 1,800 mg, SUBCUTANEOUS, ONCE , 1 dose, On Mon10/08/24 at 1330, ++FOR SUBCUTANEOUS ADMINISTRATION ONLY++ EXP: Protect From Light. Inject subcutaneously into subcutaneous tissue on the abdomen approximately 3 inches to the right or left of the navel over 3 to 5 minutes. Start: 09-06-2024 End: 09-06-2024 1,800 mg, SUBCUTANEOUS, ONCE , 1 dose, On Mon09/06/24 at 1400, ++FOR SUBCUTANEOUS ADMINISTRATION ONLY++ EXP: Protect From Light. Inject subcutaneously into subcutaneous tissue on the abdomen approximately 3 inches to the right or left of the navel over 3 to 5 minutes. Start: 08-09-2024 End: 08-09-2024 1,800 mg, SUBCUTANEOUS, ONCE , 1 dose, On Mon08/09/24 at 1430, ++FOR SUBCUTANEOUS ADMINISTRATION ONLY++ EXP: Protect From Light. Inject subcutaneously into subcutaneous tissue on the abdomen approximately 3 inches to the right or left of the navel over 3 to 5 minutes. Start: 07-12-2024 End: 07-12-2024 1,800 mg, SUBCUTANEOUS, ONCE , 1 dose, On Mon07/12/24 at 1430, ++FOR SUBCUTANEOUS ADMINISTRATION ONLY++ EXP: Protect From Light. Inject subcutaneously into subcutaneous tissue on the abdomen approximately 3 inches to the right or left of the navel over 3 to 5 minutes. Start: 06-14-2024 End: 06-14-2024 1,800 mg, SUBCUTANEOUS, ONCE , 1 dose, On Mon06/14/24 at 1230, ++FOR SUBCUTANEOUS ADMINISTRATION ONLY++ EXP: Protect From Light. Inject subcutaneously into subcutaneous tissue on the abdomen approximately 3 inches to the right or left of the navel over 3 to 5 minutes. Start: 05-17-2024 End: 05-17-2024 1,800 mg, SUBCUTANEOUS, ONCE , 1 dose, On Mon05/17/24 at 1030, ++FOR SUBCUTANEOUS ADMINISTRATION ONLY++ EXP: Protect From Light. Inject subcutaneously into subcutaneous tissue on the abdomen approximately 3 inches to the right or left of the navel over 3 to 5 minutes. Start: 04-19-2024 End: 04-19-2024 1,800 mg, SUBCUTANEOUS, ONCE , 1 dose, On Mon04/19/24 at 1400, ++FOR SUBCUTANEOUS ADMINISTRATION ONLY++ EXP: Protect From Light. Inject subcutaneously into subcutaneous tissue on the abdomen approximately 3 inches to the right or left of the navel over 3 to 5 minutes. Start: 03-22-2024 End: 03-22-2024 1,800 mg, SUBCUTANEOUS, ONCE , 1 dose, On Mon03/22/24 at 1500, ++FOR SUBCUTANEOUS ADMINISTRATION ONLY++ EXP: Protect From Light. Inject subcutaneously into subcutaneous tissue on the abdomen approximately 3 inches to the right or left of the navel over 3 to 5 minutes. Start: 02-21-2024 End: 02-21-2024 daratumumab 1,800 mg - hyalu ronidase-fihj 30,000 units 1,800 mg injection (DARZALEX FASPRO) Start: 01-26-2024 End: 01-26-2024 daratumumab 1,800 mg - hyalu ronidase-fihj 30,000 units 1,800 mg injection (DARZALEX FASPRO) Start: 12-29-2023 End: 12-29-2023 daratumumab 1,800 mg - hyalu ronidase-fihj 30,000 units 1,800 mg injection (DARZALEX FASPRO) Start: 12-01-2023 End: 12-01-2023 daratumumab 1,800 mg - hyalu ronidase-fihj 30,000 units 1,800 mg injection (DARZALEX FASPRO) dexamethasone 4 mg oral tablet (1 source) Corticosteroid Start: 06-15-2024 End: 11-26-2024 take 2 tablets by mouth once Dexamethasone 4 mg tablet Discontinued 8 mg PO ONE TIME 2 June 15, 2024 1:00am November 26, 2024 8:52pm diphenhydrAMINE hydrochloride 25 mg oral capsule (19 sources) Histamine-1 Receptor Antagonist Start: 03-21-2025 End: 03-21-2025 take 1 dose by mouth once 25 mg, ORAL, ONCE, 1 dose, On 03/21/25 at 1330 Start: 02-21-2025 End: 02-21-2025 take 1 dose by mouth once 25 mg, ORAL, ONCE, 1 dose, O n 02/21/25 at 1400 Start: 01-23-2025 End: 01-23-2025 take 1 dose by mouth once 25 mg, ORAL, ONCE, 1 dose, O n Dominga 01/23/25 at 1400 Start: 12-25-2024 End: 12-25-2024 take 1 dose by mouth once 25 mg, ORAL, ONCE, 1 dose, O n 12/25/24 at 1130 Start: 11-29-2024 End: 11-29-2024 take 1 dose by mouth once 25 mg, ORAL, ONCE, 1 dose, O n 11/29/24 at 1230 Start: 11-01-2024 End: 11-01-2024 take 1 dose by mouth once 25 mg, ORAL, ONCE, 1 dose, O n 11/01/24 at 1330 Start: 10-08-2024 End: 10-08-2024 take 1 dose by mouth once 25 mg, ORAL, ONCE, 1 dose, O n 10/08/24 at 1330 Start: 09-06-2024 End: 09-06-2024 take 1 dose by mouth once 25 mg, ORAL, ONCE, 1 dose, O n 09/06/24 at 1400 Start: 08-09-2024 End: 08-09-2024 take 1 dose by mouth once 25 mg, ORAL, ONCE, 1 dose, O n 08/09/24 at 1430 Start: 07-12-2024 End: 07-12-2024 take 1 dose by mouth once 25 mg, ORAL, ONCE, 1 dose, O n 07/12/24 at 1430 Start: 06-14-2024 End: 06-14-2024 take 1 dose by mouth once 25 mg, ORAL, ONCE, 1 dose, O n 06/14/24 at 1230 Start: 05-17-2024 End: 05-17-2024 take 1 dose by mouth once 25 mg, ORAL, ONCE, 1 dose, O n 05/17/24 at 1030 Start: 04-19-2024 End: 04-19-2024 take 1 dose by mouth once 25 mg, ORAL, ONCE, 1 dose, O n 04/19/24 at 1400 Start: 03-22-2024 End: 03-22-2024 take 1 dose by mouth once 25 mg, ORAL, ONCE, 1 dose, O n 03/22/24 at 1500 Start: 02-21-2024 End: 02-21-2024 diphenhydrAMINE 25 mg capsul e (BENADRYL) Start: 01-26-2024 End: 01-26-2024 diphenhydrAMINE 25 mg capsul e (BENADRYL) Start: 12-29-2023 End: 12-29-2023 diphenhydrAMINE 25 mg capsul e (BENADRYL) Start: 12-01-2023 End: 12-01-2023 diphenhydrAMINE 25 mg capsul e (BENADRYL) Start: 09-07-2023 End: 09-07-2023 diphenhydrAMINE 25 mg (BENAD RYL) docusate sodium 100 mg oral capsule (2 sources) Start: 09-06-2021 End: 02-25-2022 take 1 capsule by mouth once daily docusate sodium (COLACE) 100 mg capsule Take 1 capsule by mouth once daily. 30 capsule 0 09/06/2021 02/25/2022 Discontinued Comment on above: Take 1 capsule by [facility] once daily. enteric contrast (will be provided with radiology test) (1 source) Start: 01-17-2023 End: 01-18-2023 enteric contrast (will be provided with radiology test) Indications: Pathological fracture of left clavicle, initial encounter For CT CHESTABD/PEL W IVCON Routine order Administer, As Directed One Time Only, via Oral, Rectal, both Oral and Rectal, Enteric Tube, Stoma or Indwelling Catheter, Enteric Contrast as designated per enteric contrast guidelines 1 Each 0 01/17/2023 01/18/2023 Comment on above: For CT CHESTABD/PEL W IVCON Routine order Administer, As Directed One Time Only, via Oral, Rectal, both Oral and Rectal, Enteric Tube, Stoma or Indwelling Catheter, Enteric Contrast as designated per enteric contrast guidelines estradiol 0.1 mg/ml vaginal cream (1 source) Estrogen Start: 08-06-2018 End: 10-21-2021 estradiol (ESTRACE VAGINAL) 0.1 MG/GM vaginal cream Indications: Postmenopausal atrophic vaginitis Apply pea size amount vaginally 3 times a week at night time 60 g 3 08/06/2018 10/21/2021 Discontinued (LIST CLEANUP) famotidine 20 mg oral tablet (19 sources) Histamine-2 Receptor Antagonist Start: 03-21-2025 End: 03-21-2025 take 1 dose by mouth once 20 mg, ORAL, ONCE, 1 dose, On Mon03/21/25 at 1330 Start: 02-21-2025 End: 02-21-2025 take 1 dose by mouth once 20 mg, ORAL, ONCE, 1 dose, O n 02/21/25 at 1400 Start: 01-23-2025 End: 01-23-2025 take 1 dose by mouth once 20 mg, ORAL, ONCE, 1 dose, O n Dominga 01/23/25 at 1400 Start: 12-25-2024 End: 12-25-2024 take 1 dose by mouth once 20 mg, ORAL, ONCE, 1 dose, O n 12/25/24 at 1130 Start: 11-29-2024 End: 11-29-2024 take 1 dose by mouth once 20 mg, ORAL, ONCE, 1 dose, O n 11/29/24 at 1230 Start: 11-01-2024 End: 11-01-2024 take 1 dose by mouth once 20 mg, ORAL, ONCE, 1 dose, O n 11/01/24 at 1330 Start: 10-08-2024 End: 10-08-2024 take 1 dose by mouth once 20 mg, ORAL, ONCE, 1 dose, O n 10/08/24 at 1330 Start: 09-06-2024 End: 09-06-2024 take 1 dose by mouth once 20 mg, ORAL, ONCE, 1 dose, O n 09/06/24 at 1400 Start: 08-09-2024 End: 08-09-2024 take 1 dose by mouth once 20 mg, ORAL, ONCE, 1 dose, O n 08/09/24 at 1430 Start: 07-12-2024 End: 07-12-2024 take 1 dose by mouth once 20 mg, ORAL, ONCE, 1 dose, O n 07/12/24 at 1430 Start: 06-14-2024 End: 06-14-2024 take 1 dose by mouth once 20 mg, ORAL, ONCE, 1 dose, O n 06/14/24 at 1230 Start: 05-17-2024 End: 05-17-2024 take 1 dose by mouth once 20 mg, ORAL, ONCE, 1 dose, O n 05/17/24 at 1030 Start: 04-19-2024 End: 04-19-2024 take 1 dose by mouth once 20 mg, ORAL, ONCE, 1 dose, O n 04/19/24 at 1400 Start: 03-22-2024 End: 03-22-2024 take 1 dose by mouth once 20 mg, ORAL, ONCE, 1 dose, O n 03/22/24 at 1500 Start: 02-21-2024 End: 02-21-2024 famotidine 20 mg tab(s) (PEP JUDY) Start: 01-26-2024 End: 01-26-2024 famotidine 20 mg tab(s) (PEP JUDY) Start: 12-29-2023 End: 12-29-2023 famotidine 20 mg tab(s) (PEP JUDY) Start: 12-01-2023 End: 12-01-2023 famotidine 20 mg tab(s) (PEP JUDY) Start: 08-13-2018 End: 10-21-2021 take 1 tablet by mouth twice daily famotidine (PEPCID) 20 MG tablet Indications: Gastroesophageal reflux disease, esophagitis presence not specified Take 1 tablet by mouth 2 times daily 60 tablet 5 08/13/2018 10/21/2021 Discontinued (LIST CLEANUP) Gatorade Sports Drink (2 sources) Start: 09-14-2021 End: 02-25-2022 Gatorade Sports Drink Indica tions: Change in bowel habits , Acute constipation , Dark stools Use as directed for Miralax / Gatorade Bowel Prep Kit 0 09/14/2021 02/25/2022 Discontinued Start: 09-14-2021 Gatorade Sport s Drink Indications: Change in bowel habits , Acute constipation , Dark stools Use as directed for Miralax / Gatorade Bowel Prep Kit 0 09/14/2021 Active Comment on above: Use as directed for Miralax / Gatorade Bowel Prep Kit iv contrast (will be provided with radiology test) (2 sources) Start: 01-17-2023 End: 01-18-2023 iv contrast (will be provided with radiology test) Indications: Pathological fracture of left clavicle, initial encounter CT Chest ABD/PEL-Inject, intravenously, once for 1 dose.No IV access, insert saline lock prior to the beginning of sedation, infusion, injection of imaging exam. Discontinue saline lock post exam. If Pt. has a central line or IVAD, may access for administration according to line specific nursing protocol. Once exam is complete flush line and de-access according to line specific nursing protocol in the CT contrast administration guidelines link. 1 Each 0 01/17/2023 01/18/2023 Start: 12-29-2022 End: 12-30-2022 inject 1 dose intravenously once iv contrast (will be provided with radiology test) Indications: Pain of left clavicle , Swelling of skin , Abnormal findings on diagnostic imaging of body structures CT Clavicle -No IV access, insert saline lock prior to the sedation, infusion, injection for imaging exam. Discontinue saline lock post exam. If Pt. has a central line or IVAD, may access for administration according to line specific nursing protocol. Once exam is complete flush line and de-access according to line specific nursing protocol in the CT contrast administration guidelines link. 1 Each 0 12/29/2022 12/30/2022 Active Comment on above: CT Clavicle -No IV a ccess, insert saline lock prior to the sedation, infusion, injection for imaging exam. Discontinue saline lock post exam. If Pt. has a central line or IVAD, may access for administration according to line specific nursing protocol. Once exam is complete flush line and de-access according to line specific nursing protocol in the CT contrast administration guidelines link. CT Chest ABD/PEL-Inj ect, intravenously, once for 1 dose.No IV access, insert saline lock prior to the beginning of sedation, infusion, injection of imaging exam. Discontinue saline lock post exam. If Pt. has a central line or IVAD, may access for administration according to line specific nursing protocol. Once exam is complete flush line and de-access according to line specific nursing protocol in the CT contrast administration guidelines link. ketoconazole 20 mg/ml topical cream (20 sources) Azole Antifungal Start: 09-06-2021 End: 09-19-2023 ketoconazole (NIZORAL) 2 % cream Apply to affected area once daily. 30 g 09/06/2021 09/19/2023 Discontinued Comment on above: Apply to affected ar ea once daily. lenalidomide 10 mg oral capsule (20 sources) Thalidomide Analog Start: 03-02-2025 End: 03-27-2025 REVLIMID 10 mg capsule Indications: Multiple myeloma, remission status unspecified (HCC) Take 1 capsule (10 MG) by mouth daily at bedtime for 21 days on and 7 days off. 21 capsule 03/05/2025 11:19 AM EDT 03/02/2025 03/27/2025 Discontinued Start: 01-31-2025 End: 02-28-2025 REVLIMID 10 mg capsule Indic ations: Multiple myeloma, remission status unspecified (HCC) Take 1 capsule (10 MG) by mouth daily at bedtime for 21 days on and 7 days off. 21 capsule 02/05/2025 1:16 PM EDT 01/31/2025 02/28/2025 Discontinued Start: 01-27-2025 End: 01-30-2025 lenalidomide (REVLIMID) 5 mg capsule Take 1 capsule (5mg) daily at bedtime for 21 days on and 7 days off. 21 capsule 01/27/2025 01/30/2025 Discontinued Start: 12-10-2024 End: 01-27-2025 REVLIMID 10 mg capsule Indic ations: Multiple myeloma, remission status unspecified (HCC) Take 1 capsule (10 MG) by mouth daily at bedtime for 21 days on, followed by 7 days off. 21 capsule 01/06/2025 3:09 PM EDT 01/03/2025 01/27/2025 Discontinued Start: 11-11-2024 REVLIMID 10 mg capsule Indications: Multiple myeloma, remission status unspecified (HCC) Take 1 capsule (10 MG) by mouth daily at bedtime for 21 days on, followed by 7 days off. 21 capsule 11/13/2024 10:03 AM EDT 11/11/2024 Active Start: 08-19-2024 End: 11-08-2024 REVLIMID 10 mg capsule Indic ations: Multiple myeloma, remission status unspecified (HCC) Take 1 capsule (10 MG) by mouth daily at bedtime for 21 days on and 7 days off. 21 capsule 10/16/2024 3:02 PM EDT 10/11/2024 11/08/2024 Discontinued Start: 12-13-2023 End: 08-16-2024 REVLIMID 10 mg capsule Indic ations: Multiple myeloma, remission status unspecified (HCC) Take 1 capsule (10 MG) by mouth daily at bedtime for 21 days on and 7 days off. 21 capsule 07/19/2024 08/16/2024 Discontinued Start: 08-16-2023 End: 12-11-2023 REVLIMID 10 mg capsule Indic ations: Multiple myeloma, remission status unspecified (HCC) Take 1 capsule (10 MG) by mouth daily at bedtime for 21 days on and 7 days off. 21 capsule 0 11/13/2023 12/11/2023 Discontinued Start: 03-09-2023 End: 06-26-2023 lenalidomide (REVLIMID) 10 m g capsule Take 1 capsule (10 MG) by mouth daily at bedtime for 21 days on and 7 days off. 21 capsule 0 06/26/2023 Active Start: 02-23-2023 End: 03-09-2023 lenalidomide (REVLIMID) 15 m g capsule Take 1 capsule (15mg) daily at bedtime for 21 days on and 7 days off. 21 capsule 0 02/23/2023 03/09/2023 Discontinued Comment on above: Take 1 capsule (15mg ) daily at bedtime for 21 days on and 7 days off. Take 1 capsule (10 M G) daily at bedtime for 21 days on and 7 days off. Take 1 capsule (10 M G) by mouth daily at bedtime for 21 days on and 7 days off. methylPREDNISolone 4 mg oral tablet (8 sources) Corticosteroid Start: 2022 End: 2023 take 1 tablet by mouth once Methylprednisolone (Medrol (Betty)) 4 mg tablets,dose pack Discontinued 0 PO per package directions February 28, 2023 12:00am August 16, 2023 9:02pm PO PER PKG DIR Start: 12-26-2022 End: 01-01-2023 methylPREDNISolone (MEDROL, BETTY,) 4 mg Dose-Pack Indications: Clavicle pain Follow dosing instructions, take with food. 21 tablet 0 12/26/2022 01/01/2023 Active Comment on above: Follow dosing instru ctions, take with food. polyethylene glycol 3350 53923 mg powder for oral solution (3 sources) Osmotic Laxative Start: 09-14-2021 End: 02-25-2022 polyethylene glycol 3350 (MIRALAX, GLYCOLAX) 17 gram/dose powder Indications: Change in bowel habits , Acute constipation , Dark stools Use as directed for Miralax / Gatorade Bowel Prep Kit 238 g 0 09/14/2021 02/25/2022 Discontinued Start: 09-14-2021 polyethylene g lycol (GLYCOLAX) 17 GM/SCOOP powder Use as directed for Miralax / Gatorade Bowel Prep Kit 0 09/14/2021 Active Comment on above: Use as directed for Miralax / Gatorade Bowel Prep Kit traMADol hydrochloride 50 mg oral tablet (20 sources) Opioid Agonist Start: 01-03-20 End: 03-06-20 24 take 1 tablet by mouth every eight hours as needed for pain traMADol (ULTRAM) 50 mg tablet Indications: Bone pain Take 1 tablet by mouth every 8 hours as needed for pain. 21 tablet 0 01/02/2023 03/06/2024 Discontinued Comment on above: Take 1 tablet by lotus th every 8 hours as needed for pain. triamcinolone acetonide 1 mg/ml topical cream (3 sources) Corticosteroid Start: 04-15-20 End: 08-16-19 Triamcinolone Acetonide 0.1 % cream Discontinued 1 NMA TOPICAL TWICE A DAY as needed for itchy rash 15 7 April 15, 2021 9:39am August 16, 2023 9:02pm to affected area(s) zoledronic acid 3.3 mg in NaCl 0.9% 100 mL (ZOMETA) (5 sources) Start: 11-02-19 End: 11-02-19 3.3 mg, INTRAVENOUS, Administer over 15 Minutes, ONCE, 1 dose, On Mon11/01/24 at 1330, Hazardous Potential Reproductive Risk Drug: Use appropriate PPE. Refrigerate. Exp: (24 HR) Start: 08-09-2024 End: 08-09-2024 3.3 mg, INTRAVENOUS, Adminis ter over 15 Minutes, ONCE, 1 dose, On Mon08/09/24 at 1500, Hazardous Potential Reproductive Risk Drug: Use appropriate PPE. Refrigerate. Start: 06-14-2024 End: 06-14-2024 3.3 mg, INTRAVENOUS, Adminis ter over 15 Minutes, ONCE, 1 dose, On Mon06/14/24 at 1230, Hazardous Potential Reproductive Risk Drug: Use appropriate PPE. Refrigerate. 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] 02-24-2023 Chronic Administrative/social admission (20 sources) Advance directive discussed with patient; Translations: [Other specified counseling] Onset: Episodic Coagulation and hemorrhagic disorders (20 sources) Platelet count below reference range; Translations: [Thrombocytopenia, unspecified] Onset: 2 Chronic Coronary atherosclerosis and other heart disease (20 sources) Coronary atherosclerosis; Translations: [Atherosclerotic heart disease of [place] coronary artery without angina pectoris] Onset: 9 08-20-2020 Chronic Diseases of white blood cells (2 sources) Monoclonal B-cell lymphocytosis; 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)] Onset: 5 12-25-2024 Chronic Disorders of lipid metabolism (20 sources) Hyperlipidemia; Translations: [Hyperlipidemia, unspecified] Onset: 8 11-08-2017 Chronic E Codes: Natural/environment (3 sources) Insect bite - wound; Translations: [Bitten or stung by nonvenomous insect and other nonvenomous arthropods, initial encounter] 04-23-2021 Episodic Esophageal disorders (20 sources) Gastroesophageal reflux disease; Translations: [Gastro-esophageal reflux disease without esophagitis] Onset: 8 11-08-2017 Chronic Fluid and electrolyte disorders (1 source) Dehydration; Translations: [Dehydration] 11-26-2024 Episodic Gastrointestinal hemorrhage (4 sources) Hemorrhage of rectum and anus; Translations: [Hemorrhage of anus and rectum] Onset: 3 Episodic Immunity disorders (4 sources) Patient immunocompromised; Translations: [Immunodeficiency, unspecified] Onset: 5 08-09-2024 Chronic Intestinal infection (1 source) Viral gastroenteritis; Translations: [Viral intestinal infection, unspecified] 11-26-2024 Episodic Maintenance chemotherapy; radiotherapy (15 sources) Patient encounter status; Translations: [Encounter for antineoplastic chemotherapy] Onset: 5 02-23-2023 Chronic Menopausal disorders (1 source) Atrophic vaginitis; Translations: [Postmenopausal atrophic vaginitis] Onset: 1 09-20-2010 Chronic Multiple myeloma (20 sources) Multiple myeloma; Translations: [Multiple myeloma not having achieved remission] Onset: 3 02-11-2023 Chronic Nausea and vomiting (2 sources) Nausea; Translations: [Nausea] Onset: 5 11-06-2023 Episodic Non-Hodgkin`s lymphoma (2 sources) History of multiple myeloma; Translations: [Personal history of other malignant neoplasms of lymphoid, hematopoietic and related tissues] 11-26-2024 Episodic Noninfectious gastroenteritis (2 sources) Gastroenteritis; Translations: [Noninfective gastroenteritis and colitis, unspecified] 10-09-2023 Episodic Nutritional deficiencies (1 source) Serum vitamin B12 low; Translations: [Deficiency of other specified B group vitamins] Episodic Other circulatory disease (1 source) Elevated blood-pressure reading without diagnosis of hypertension; Translations: [Elevated blood-pressure reading, without diagnosis of hypertension] 03-11-2025 Episodic Other connective tissue disease (3 sources) Swelling of right lower limb; Translations: [Other specified soft tissue disorders] 01-25-2025 Episodic Other connective tissue disease (2 sources) Synovial cyst of right popliteal space; Translations: [Synovial cyst of popliteal space [Gandhi], right knee] 03-11-2025 Episodic Other connective tissue disease (1 source) Synovial cyst of popliteal space [Gandhi], right knee; Translations: [Gandhi's cyst of knee, right] Onset: Episodic Other gastrointestinal disorders (1 source) Oropharyngeal dysphagia; Translations: [Dysphagia, oropharyngeal phase] 03-31-2023 Episodic Other gastrointestinal disorders (1 source) Diarrhea; Translations: [Diarrhea, unspecified] 07-19-2024 Episodic Other lower respiratory disease (1 source) Cough; Translations: [Acute cough] Episodic Other non-traumatic joint disorders (2 sources) Hip pain; Translations: [Pain in right hip] 01-25-2025 Episodic Other nutritional; endocrine; and metabolic disorders (1 source) Decrease in appetite; Translations: [Anorexia] 09-07-2023 Episodic Other screening for suspected conditions (not mental disorders or infectious disease) (20 sources) Plain X-ray result abnormal; Translations: [Abnormal findings on diagnostic imaging of other specified body structures] Onset: 3 12-30-2022 Chronic Other skin disorders (1 source) Lichen sclerosus et atrophicus; Translations: [Circumscribed scleroderma] Onset: 9 08-06-2018 Chronic Other upper respiratory disease (3 sources) Bleeding from nose; Translations: [Epistaxis] 08-16-2023 Episodic Other upper respiratory disease (1 source) Anterior epistaxis; Translations: [Epistaxis] 06-30-2024 Episodic Other upper respiratory infections (4 sources) Upper respiratory infection; Translations: [Acute upper respiratory infection, unspecified] 02-28-2023 Episodic Screening and history of mental health and substance abuse codes (2 sources) Encounter for screening for depression; Translations: [Encounter for screening examination for other mental health and behavioral disorders] Onset: 5 Episodic Skin and subcutaneous tissue infections (1 source) Cellulitis of skin; Translations: [Cellulitis, unspecified] Episodic Thyroid disorders (20 sources) Hypothyroidism; Translations: [Hypothyroidism, unspecified] Onset: 8 11-08-2017 Chronic Unclassified (1 source) APPOINTMENT CANCELLED Unclassified (1 source) Cough, unspecified; Translations: [Cough, unspecified] Onset: 4 Viral infection (2 sources) Disease caused by 2018-nCoV; Translations: [COVID-19] Episodic Viral infection (1 source) COVID-19; Translations: [COVID-19] Onset: 4 Past or Other Problems Problem Classification Problem Date Documented Date Episodic/Chronic Diabetes mellitus without complication (20 sources) Hyperglycemia; Translations: [Impaired fasting glucose] Onset: 03-29-2019 07-30-2019 Episodic Immunizations and screening for infectious disease (5 sources) Suspected disease caused by 2018-nCoV; Translations: [Suspected COVID-19 virus infection] Onset: 04-25-2024 Episodic Other aftercare (20 sources) Patient encounter status; Translations: [Other 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] Onset: 08-20-2020 08-20-2020 Episodic Other aftercare (1 source) Other group home (current) drug therapy; Translations: [Medication management] Onset: 08-20-2020 Episodic Other bone disease and musculoskeletal deformities (20 sources) Osteopenia; Translations: [Other specified disorders of bone density and structure, unspecified site] Onset: 11-08-2017 11-08-2017 Episodic Other bone disease and musculoskeletal deformities (20 sources) Clavicle pain; Translations: [Other specified disorders of bone, shoulder] Onset: 12-30-2022 12-30-2022 Episodic Other connective tissue disease (2 sources) Other specified soft tissue disorders; Translations: [Right leg swelling] Onset: 01-23-2025 Episodic Other female genital disorders (1 source) Lesion of vulva; Translations: [Other specified noninflammatory disorders of vulva and perineum] Onset: 04-27-2018 04-27-2018 Episodic Other infections; including parasitic (20 sources) Personal history of other infectious and parasitic diseases; Translations: [History of 2019 novel coronavirus disease (COVID-19)] Onset: 09-07-2022 Episodic Other non-epithelial cancer of skin (20 sources) History of squamous cell carcinoma of skin; Translations: [Personal history of other malignant neoplasm of skin] Onset: 03-31-2019 03-31-2019 Episodic Other non-traumatic joint disorders (1 source) Pain in right hip; Translations: [Pain of right hip] Onset: 01-23-2025 Episodic Other screening for suspected conditions (not mental disorders or infectious disease) (20 sources) Abnormal radionuclide scan; Translations: [Abnormal results of function studies of other organs and systems] Onset: 01-06-2023 Episodic Other upper respiratory disease (2 sources) Epistaxis; Translations: [Epistaxis] Onset: 07-22-2024 04-26-2023 Episodic Pathological fracture (20 sources) Pathological fracture of left clavicle; Translations: [Pathological fracture, left shoulder, initial encounter for fracture] Onset: 01-23-2023 Episodic Pneumonia (except that caused by tuberculosis or sexually transmitted disease) (6 sources) Right lower zone pneumonia; Translations: [Pneumonia, unspecified organism] Onset: 08-05-2024 07-13-2024 Episodic Residual codes; unclassified (20 sources) Active living will ; Translations: [Other specified health status] Onset: 02-25-2022 Episodic Results Test Name Value Interpretation Reference Range Facility CNOVSPon 05-15-2025 CNOVSP Normal [facility] CBC W Auto Differential pane l (Bld)on 05-12-2025 Basophils (Bld) [#/Vol] 0.04 10*3/uL Normal <0.11 [facility] Comment on above: Order Comment: Speci men Type: BLOOD SPECIMENOrdering Facility: [facility] Address: [address] [place] [address] Performed By: #### 5 7021-8 ####[facility] [id number] [place] [address] [place] Basophils/100 WBC (Bld) 1.1 % Normal C [facility] Comment on above: Order Comment: Speci men Type: BLOOD SPECIMENOrdering Facility: [facility] Address: [address] [place] [address] Performed By: #### 5 7021-8 ####[facility] [id number] [place] [address] [place] Differential cell count method Nom (Bld) Auto Normal [facility] Comment on above: Order Comment: Speci men Type: BLOOD SPECIMENOrdering Facility: [facility] Address: [address] [place] [address] Performed By: #### 5 7021-8 ####[facility] [id number] [place] [address] [place] Eosinophils (Bld) [#/Vol] 0.08 10*3/uL Normal <0.46 [facility] Comment on above: Order Comment: Speci men Type: BLOOD SPECIMENOrdering Facility: [facility] Address: [address] [place] [address] Performed By: #### 5 7021-8 ####[facility] [id number] [place] [address] [place] Eosinophils/100 WBC (Bld) 2.2 % Normal [facility] Comment on above: Order Comment: Speci men Type: BLOOD SPECIMENOrdering Facility: [facility] Address: [address] [place] [address] Performed By: #### 5 7021-8 ####[facility]ERNCA [id number] [place] [address] [place] Erythrocyte distribution width (RBC) [Ratio] 15.1 % High 11.5-15.0 [facility] Comment on above: Order Comment: Speci men Type: BLOOD SPECIMENOrdering Facility: [facility] Address: [address] [place] [address] Performed By: #### 5 7021-8 ####[facility] SUNNYWNCLIA [id number] [place] [address] [place] Hematocrit (Bld) [Volume fraction] 36.2 % Normal 36.0-46.0 [facility] Comment on above: Order Comment: Speci men Type: BLOOD SPECIMENOrdering Facility: [facility] Address: [address] [place] [address] Performed By: #### 5 7021-8 ####[facility]ALLIA [id number] [place] [address] [place] Hemoglobin (Bld) [Mass/Vol] 12.0 g/dL Normal 11.5-15.5 [facility] Comment on above: Order Comment: Speci men Type: BLOOD SPECIMENOrdering Facility: [facility] Address: [address] [place] [address] Performed By: #### 5 7021-8 ####[facility]ALL[facility] [id number] [place] [address] [place] Immature granulocytes (Bld) [#/Vol] 10*3/uL Normal <0.10 [facility] Comment on above: Order Comment: Speci men Type: BLOOD SPECIMENOrdering Facility: [facility] Address: [address] [place] [address] Performed By: #### 5 7021-8 ####[facility]ALL[facility] [id number] [place] [address] [place] Immature granulocytes/100 WBC (Bld) 0.6 % Normal [facility] Comment on above: Order Comment: Speci men Type: BLOOD SPECIMENOrdering Facility: [facility] Address: [address] [place] [address] Performed By: #### 5 7021-8 ####[facility] [id number] [place] [address] [place] Lymphocytes (Bld) [#/Vol] 0.88 10*3/uL Low 1.00-4.00 [facility] Comment on above: Order Comment: Speci men Type: BLOOD SPECIMENOrdering Facility: [facility] Address: [address] [place] [address] Performed By: #### 5 7021-8 ####[facility] [id number] [place] [address] [place] Lymphocytes/100 WBC (Bld) 24.4 % Normal [facility] Comment on above: Order Comment: Speci men Type: BLOOD SPECIMENOrdering Facility: [facility] Address: [address] [place] [address] Performed By: #### 5 7021-8 ####[facility]ERNCM[facility] [id number] [place] [address] [place] MCH (RBC) [Entitic mass] 29.6 pg Normal 26.0-34.0 [facility] Comment on above: Order Comment: Speci men Type: BLOOD SPECIMENOrdering Facility: [facility] Address: [address] [place] [address] Performed By: #### 5 7021-8 ####[facility] [id number] [place] [address] [place] MCHC (RBC) [Mass/Vol] 33.1 g/dL Normal 30.5-36.0 [facility] Comment on above: Order Comment: Speci men Type: BLOOD SPECIMENOrdering Facility: [facility] Address: [address] [place] [address] Performed By: #### 5 7021-8 ####[facility]ENTERNCLI [id number] [place] [address] [place] MCV (RBC) [Entitic vol] 89.2 fL Normal 80.0-100.0 C [facility] Comment on above: Order Comment: Speci men Type: BLOOD SPECIMENOrdering Facility: [facility] Address: [address] [place] [address] Performed By: #### 5 7021-8 ####[facility] CENTERDANIELLA [id number] [place] [address] [place] Monocytes (Bld) [#/Vol] 0.25 10*3/uL Normal <0.87 [facility] Comment on above: Order Comment: Speci men Type: BLOOD SPECIMENOrdering Facility: [facility] Address: [address] [place] [address] Performed By: #### 5 7021-8 ####[facility] [id number] [place] [address] [place] Monocytes/100 WBC (Bld) 6.9 % Normal C [facility] Comment on above: Order Comment: Speci men Type: BLOOD SPECIMENOrdering Facility: [facility] Address: [address] [place] [address] Performed By: #### 5 7021-8 ####[facility] [id number] [place] [address] [place] Neutrophils (Bld) [#/Vol] 2.33 10*3/uL Normal 1.45-7.50 [facility] Comment on above: Order Comment: Speci men Type: BLOOD SPECIMENOrdering Facility: [facility] Address: [address] [place] [address] Performed By: #### 5 7021-8 ####[facility] [id number] [place] [address] [place] Neutrophils/100 WBC (Bld) 64.8 % Normal [facility] Comment on above: Order Comment: Speci men Type: BLOOD SPECIMENOrdering Facility: [facility] Address: [address] [place] [address] Performed By: #### 5 7021-8 ####[facility]ENTERNCLIA [id number] [place] [address] [place] Nucleated RBC (Bld) [#/Vol] 10*3/uL Normal <0.01 [facility] Comment on above: Order Comment: Speci men Type: BLOOD SPECIMENOrdering Facility: [facility] Address: [address] [place] [address] Performed By: #### 5 7021-8 ####[facility] [id number] [place] [address] [place] Nucleated RBC/100 WBC (Bld) [Ratio] 0.0 /100 WBC Normal [facility] Comment on above: Order Comment: Speci men Type: BLOOD SPECIMENOrdering Facility: [facility] Address: [address] [place] [address] Performed By: #### 5 7021-8 ####[facility]ALL[facility] [id number] [place] [address] [place] Platelet mean volume (Bld) [Entitic vol] 11.1 fL Normal 9.0-12.7 [facility] Comment on above: Order Comment: Speci men Type: BLOOD SPECIMENOrdering Facility: [facility] Address: [address] [place] [address] Performed By: #### 5 7021-8 ####[facility]ALL[facility] [id number] [place] [address] [place] Platelets (Bld) [#/Vol] 113 10*3/uL Low 150-400 [facility] Comment on above: Order Comment: Speci men Type: BLOOD SPECIMENOrdering Facility: [facility] Address: [address] [place] [address] Performed By: #### 5 7021-8 ####[facility]ITALLI [id number] [place] [address] [place] RBC (Bld) [#/Vol] 4.06 10*6/uL Normal 3.90-5.20 [facility] Comment on above: Order Comment: Speci men Type: BLOOD SPECIMENOrdering Facility: [facility] Address: [address] [place] [address] Performed By: #### 5 7021-8 ####[facility] CENTERMEHREENLIA [id number] [place] [address] [place] WBC (Bld) [#/Vol] 3.60 10*3/uL Low 3.70-11.00 [facility] Comment on above: Order Comment: Speci men Type: BLOOD SPECIMENOrdering Facility: [facility] Address: [address] [place] [address] Performed By: #### 5 7021-8 ####[facility] CENTERMEHREENRoc [id number] [place] [address] [place] Comprehensive metabolic 2000 panelon 05-12-2025 Albumin [Mass/Vol] 4.2 g/dL Normal 3.9-4.9 [facility] Comment on above: Order Comment: Speci men Type: BLOOD SPECIMENOrdering Facility: [facility] Address: [address] [place] [address] Performed By: #### 2 4323-8 ####[facility] CENTERMEHREENA [id number] [place] [address] [place] ALP [Catalytic activity/Vol] 43 U/L Normal 34-123 [facility] Comment on above: Order Comment: Speci men Type: BLOOD SPECIMENOrdering Facility: [facility] Address: [address] [place] [address] Performed By: #### 2 4323-8 ####[facility] CENTERNCLIA [id number] [place] [address] [place] ALT [Catalytic activity/Vol] 24 U/L Normal 7-38 [facility] Comment on above: Order Comment: Speci men Type: BLOOD SPECIMENOrdering Facility: [facility] Address: [address] [place] [address] Performed By: #### 2 4323-8 ####[facility] HOSPITALWNCLIA [id number] [place] [address] [place] Anion gap [Moles/Vol] 13 mmol/L Normal 8-15 [facility] Comment on above: Order Comment: Speci men Type: BLOOD SPECIMENOrdering Facility: [facility] Address: [address] [place] [address] Performed By: #### 2 4323-8 ####[facility]ENTERNCLIA [id number] [place] [address] [place] AST [Catalytic activity/Vol] 17 U/L Normal 13-35 [facility] Comment on above: Order Comment: Speci men Type: BLOOD SPECIMENOrdering Facility: [facility] Address: [address] [place] [address] Performed By: #### 2 4323-8 ####[facility]ITALA [id number] [place] [address] [place] Bilirubin [Mass/Vol] 0.4 mg/dL Normal 0.2-1.3 [facility] Comment on above: Order Comment: Speci men Type: BLOOD SPECIMENOrdering Facility: [facility] Address: [address] [place] [address] Performed By: #### 2 4323-8 ####[facility]ENTERNCLIA [id number] [place] [address] [place] Calcium [Mass/Vol] 9.3 mg/dL Normal 8.5-10.2 [facility] Comment on above: Order Comment: Speci men Type: BLOOD SPECIMENOrdering Facility: [facility] Address: [address] [place] [address] Performed By: #### 2 4323-8 ####[facility]ENTERNCLIA [id number] [place] [address] [place] Chloride [Moles/Vol] 106 mmol/L Normal 98-107 [facility] Comment on above: Order Comment: Speci men Type: BLOOD SPECIMENOrdering Facility: [facility] Address: [address] [place] [address] Performed By: #### 2 4323-8 ####[facility] [id number] [place] [address] [place] CO2 [Moles/Vol] 21 mmol/L Low 22-30 [facility] Comment on above: Order Comment: Speci men Type: BLOOD SPECIMENOrdering Facility: [facility] Address: [address] [place] [address] Performed By: #### 2 4323-8 ####[facility] [id number] [place] [address] [place] Creatinine [Mass/Vol] 0.91 mg/dL Normal 0.58-0.96 [facility] Comment on above: Order Comment: Speci men Type: BLOOD SPECIMENOrdering Facility: [facility] Address: [address] [place] [address] Performed By: #### 2 4323-8 ####[facility]PITALLI [id number] [place] [address] [place] eGFRcr SerPlBld CKD-EPI 2020 61 mL/min/1.73m??? Normal >=60 [facility] Comment on above: Order Comment: Speci men Type: BLOOD SPECIMENOrdering Facility: [facility] Address: [address] [place] [address] Result Comment: Lashonda mated Glomerular Filtration Rate (eGFR) is calculated using the 2020 CKD-EPI creatinine equation. This equation utilizes serum creatinine, sex, and age as parameters. The creatinine assay has traceable calibration to isotope dilution-mass spectrometry. Refer to KDIGO guidelines for clinical interpretation. In patients with unstable renal function, e.g. those with acute kidney injury, the eGFR may not accurately reflect actual GFR. Performed By: #### 2 4323-8 ####[facility] HOSPITALWMEHREENLIRoc [id number] [place] [address] [place] Glucose [Mass/Vol] 107 mg/dL High 74-99 [facility] Comment on above: Order Comment: Specjose guadalupe bradley Type: BLOOD SPECIMENOrdering Facility: [facility] Address: [address] [place], [place] [id number] Result Comment: The [place] [employer] (ADA) provides guidance for cutoff values for fasting glucose and random glucose. The ADA defines fasting as no caloric intake for at least 8 hours. Fasting plasma glucose results between 100 to 125 mg/dL indicate increased risk for diabetes (prediabetes).Fasting plasma glucose results greater than or equal to 126 mg/dL meet the criteria for diagnosis of diabetes. In the absence of unequivocal hyperglycemia, results should be confirmed by repeat testing. In a patient with classic symptoms of hyperglycemia or hyperglycemic crisis, random plasma glucose results greater than or equal to 200 mg/dL meet the criteria for diagnosis of diabetes.Reference: Standards of Medical Care in Diabetes 2016, [place] [employer]. Diabetes Care. 2016.39(Suppl 1). Performed By: #### 2 4323-8 ####[facility] CENTERMEHREENA [id number] [place] [address] [place] Potassium [Moles/Vol] 4.0 mmol/L Normal 3.7-5.1 [facility] Comment on above: Order Comment: Caleb men Type: BLOOD SPECIMENOrdering Facility: [facility] Address: [address] [place] [address] Performed By: #### 2 4323-8 ####[facility] CENTERNCLIRoc [id number] [place] [address] [place] Protein [Mass/Vol] 6.3 g/dL Normal 6.3-8.0 [facility] Comment on above: Order Comment: Speci men Type: BLOOD SPECIMENOrdering Facility: [facility] Address: [address] [place] [address] Performed By: #### 2 4323-8 ####[facility] [id number] [place] [address] [place] Sodium [Moles/Vol] 140 mmol/L Normal 136-144 [facility] Comment on above: Order Comment: Speci men Type: BLOOD SPECIMENOrdering Facility: [facility] Address: [address] [place] [address] Performed By: #### 2 4323-8 ####[facility]ENTERNCMOUNT[facility] [id number] [place] [address] [place] Urea nitrogen [Mass/Vol] 22 mg/dL High 7-21 [facility] Comment on above: Order Comment: Speci men Type: BLOOD SPECIMENOrdering Facility: [facility] Address: [address] [place] [address] Performed By: #### 2 4323-8 ####[facility] [id number] [place] [address] [place] HBV surface Ab Ql (S)on 04-24 HBV surface Ab Qn (S) <8.00 Normal [facility] Comment on above: Order Comment: Speci men Type: BLOOD SPECIMENOrdering Facility: [facility] Address: [address] [place] [address] Result Comment: <8 m IU/mL: No serological evidence of immunity to Hepatitis B Virus.>/= 8 to <12 mIU/mL: No serological evidence of immunity to Hepatitis B Virus.>/= 12 mIU/mL: Consistent with serological evidence of immunity to Hepatitis B Virus. Performed By: #### 2 2322-2 ####[facility] LABCLIA [id number] [address] [place] HBV surface Ab Ser Qlon 10 HBV surface Ab Ql (S) Negative Normal [facility] Comment on above: Order Comment: Speci men Type: BLOOD SPECIMENOrdering Facility: [facility] Address: [address] [place] [address] Result Comment: No s erological evidence of immunity to Hepatitis B Virus. Performed By: #### 2 2322-2 ####[facility] LABCLIA [id number] [address] IMMUNOFIXATION SCREEN, SERUM on 05-12-2025 INTERPRETATION (MPA) Normal [facility] Comment on above: Order Comment: Speci kirk Type: BLOOD SPECIMENOrdering Facility: [facility] Address: [address] [place] [address] Performed By: #### I FESC ####[facility] LABCLIA [id number] [address] [place] MPA RESULT A poorly defined reg ion of restricted mobility is present that may represent an M protein. Abnormal No M protein is identified. [facility] Comment on above: Order Comment: Speci men Type: BLOOD SPECIMENOrdering Facility: [facility] Address: [address] [place] [address] Performed By: #### I FESC ####[facility] LABCLIA [id number] [address] OF [facility] STAFF REVIEW (MPA) Reviewed by Yesenia Wright M.D., Ph.D Normal [facility] Comment on above: Order Comment: Speci men Type: BLOOD SPECIMENOrdering Facility: [facility] Address: [address] [place] [address] Performed By: #### I FESC ####[facility] LABCLIA [id number] [place] [address] [place] IMMUNOGLOBULINS,IGG,IGA,IGMo n 05-12-2025 IgA [Mass/Vol] 63 mg/dL Low 70-400 [facility] Comment on above: Order Comment: Speci men Type: BLOOD SPECIMENOrdering Facility: [facility] Address: [address] [place] [address] Performed By: #### S ERIMM ####[facility] LABCLIA [id number] [place] [address] [place] IgG [Mass/Vol] 720 mg/dL Normal 700-1600 [facility] Comment on above: Order Comment: Speci men Type: BLOOD SPECIMENOrdering Facility: [facility] Address: [address] [place] [address] Performed By: #### S ERIMM ####[facility] LABCLIA [id number] [place] [address] [place] IgM [Mass/Vol] 32 mg/dL Low 40-230 [facility] Comment on above: Order Comment: Speci men Type: BLOOD SPECIMENOrdering Facility: [facility] Address: [address] [place] [address] Performed By: #### S ERIMM ####[facility] LABCLIA [id number] [place] [address] [place] KAPPA/MCINTOSH,FREE,SERon 2024 Immunoglobulin light chains.kappa.free (S) [Mass/Vol] 24.4 mg/L High 3.3-19.4 [facility] Comment on above: Order Comment: Speci men Type: BLOOD SPECIMENOrdering Facility: [facility] Address: [address] [place] [address] Result Comment: Rare ly, increased serum free light chains levels may not be detected or accurately quantified due to prozone phenomenon or in high viscosity samples using this immunoturbidimetric assay. Correlation with other laboratory results and clinical findings is recommended.The [place] Free Light Chain was performed using the Binding Site Optilite immunoturbidimetric method. Result obtained with different assay methods or kits cannot be used interchangeably. Performed By: #### K LFRS ####[facility] LABCLIA [id number] [place] [address] [place] Immunoglobulin light chains.kappa/Immunoglob ulin light chains.lambda (S) [Mass ratio] 1.39 Normal 0.26-1.65 [facility] Comment on above: Order Comment: Speci men Type: BLOOD SPECIMENOrdering Facility: [facility] Address: [address] [place] [address] Performed By: #### K LFRS ####[facility] LABCLIA [id number] [place] [address] [place] Immunoglobulin light chains.lambda.free [Mass/Vol] 17.6 mg/L Normal 5.7-26.3 [facility] Comment on above: Order Comment: Speci men Type: BLOOD SPECIMENOrdering Facility: [facility] Address: [address] [place] [address] Result Comment: Rare ly, increased serum free light chains levels may not be detected or accurately quantified due to prozone phenomenon or in high viscosity samples using this immunoturbidimetric assay. Correlation with other laboratory results and clinical findings is recommended.The [place] Free Light Chain was performed using the Binding Site Optilite immunoturbidimetric method. Result obtained with different assay methods or kits cannot be used interchangeably. Performed By: #### K LFRS ####[facility] LABCLIA [id number] [place] [address] [place] PROTEIN ELECTROPHORESIS SERU M (P)on 05-12-2025 Albumin [Mass/Vol] 3.91 g/dL Normal 3.43-5.41 [facility] Comment on above: Order Comment: Speci men Type: BLOOD SPECIMENOrdering Facility: [facility] Address: [address] [place] [address] Performed By: #### L [id number] ####[facility] LABCLIA [id number] [place] [address] [place] Alpha 1 globulin Elph [Mass/Vol] 0.24 g/dL Normal 0.18-0.43 [facility] Comment on above: Order Comment: Speci men Type: BLOOD SPECIMENOrdering Facility: [facility] Address: [address] [place] [address] Performed By: #### L [id number] ####[facility] LABCLIA [id number] [place] [address] [place] Alpha 2 globulin Elph [Mass/Vol] 0.51 g/dL Normal 0.42-0.98 [facility] Comment on above: Order Comment: Speci men Type: BLOOD SPECIMENOrdering Facility: [facility] Address: [address] [place] [address] Performed By: #### L [id number] ####[facility] LABCLIA [id number] [place] [address] [place] Beta globulin Elph [Mass/Vol] 0.54 g/dL Low 0.61-1.17 [facility] Comment on above: Order Comment: Speci men Type: BLOOD SPECIMENOrdering Facility: [facility] Address: [address] [place] [address] Performed By: #### L [id number] ####[facility] LABCLIA [id number] [place] [address] [place] Gamma globulin Elph [Mass/Vol] 0.60 g/dL Normal 0.53-1.51 [facility] Comment on above: Order Comment: Speci men Type: BLOOD SPECIMENOrdering Facility: [facility] Address: [address] [place] [address] Performed By: #### L [id number] ####[facility] LABCLIA [id number] [place] [address] [place] INTERPRETATION COMMENT FOR PROTEIN ELECTROPHORESIS Normal [facility] Comment on above: Order Comment: Speci men Type: BLOOD SPECIMENOrdering Facility: [facility] Address: [address] [place] [address] Performed By: #### L [id number] ####[facility] LABCLIA [id number] [place] [place] [address] [place] M-PROTEIN LOCATION Normal [facility] Comment on above: Order Comment: Speci men Type: BLOOD SPECIMENOrdering Facility: [facility] Address: [address] [place] [address] Result Comment: Not Applicable. Performed By: #### L [id number] ####[facility] LABCLIA [id number] [place] [address] [place] Protein Fractions [Interp] An atypical region of restricted mobility is identified on protein electrophoresis. Abnormal No definitive M protein is identified on protein electrophore sis. [facility] Comment on above: Order Comment: Speci men Type: BLOOD SPECIMENOrdering Facility: [facility] Address: [address] [place] [address] Performed By: #### L [id number] ####[facility] LABIA [id number] [place] [address] [place] Protein.monoclonal Elph [Mass/Vol] 0.00 g/dL Normal <=0.00 [facility] Comment on above: Order Comment: Speci men Type: BLOOD SPECIMENOrdering Facility: [facility] Address: [address] [place] [address] Performed By: #### L [id number] ####[facility] LABIA [id number] [place] [address] [place] SPE STAFF REVIEW Reviewed by Yesenia Wright M.D., Ph.D Normal [facility] Comment on above: Order Comment: Speci men Type: BLOOD SPECIMENOrdering Facility: [facility] Address: [address] [place] [address] Performed By: #### L [id number] ####[facility] LABIA [id number] [place] [address] [place] Prot SerPl-mCncon 05-12-2025 Protein [Mass/Vol] 5.8 g/dL Low 6.3-8.0 [facility] Comment on above: Order Comment: Speci men Type: BLOOD SPECIMENOrdering Facility: [facility] Address: [address] [place] [address] Performed By: #### 2 885-2 ####[facility] LABIA [id number] [address] [place] CNOVSPon 04-18-2025 CNOVSP Normal [facility] CBC W Auto Differential pane l (Bld)on 04-14-2025 Basophils (Bld) [#/Vol] 0.03 10*3/uL Normal <0.11 [facility] Comment on above: Order Comment: Speci men Type: BLOOD SPECIMENOrdering Facility: [facility] Address: [address] [place] [address] Performed By: #### 5 7021-8 ####[facility] HOSPITALWGALIA [id number] [place] [address] [place] Basophils/100 WBC (Bld) 0.9 % Normal [facility] Comment on above: Order Comment: Speci men Type: BLOOD SPECIMENOrdering Facility: [facility] Address: [address] [place] [address] Performed By: #### 5 7021-8 ####[facility]ITALLIA [id number] [place] [address] [place] Differential cell count method Nom (Bld) Auto Normal [facility] Comment on above: Order Comment: Speci men Type: BLOOD SPECIMENOrdering Facility: [facility] Address: [address] [place] [address] Performed By: #### 5 7021-8 ####[facility] [id number] [place] [address] [place] Eosinophils (Bld) [#/Vol] 0.09 10*3/uL Normal <0.46 [facility] Comment on above: Order Comment: Speci men Type: BLOOD SPECIMENOrdering Facility: [facility] Address: [address] [place] [address] Performed By: #### 5 7021-8 ####[facility]PITALLIA [id number] [place] [address] [place] Eosinophils/100 WBC (Bld) 2.7 % Normal [facility] Comment on above: Order Comment: Speci men Type: BLOOD SPECIMENOrdering Facility: [facility] Address: [address] [place] [address] Performed By: #### 5 7021-8 ####[facility]ERN[facility] [id number] [place] [address] [place] Erythrocyte distribution width (RBC) [Ratio] 15.1 % High 11.5-15.0 [facility] Comment on above: Order Comment: Speci men Type: BLOOD SPECIMENOrdering Facility: [facility] Address: [address] [place] [address] Performed By: #### 5 7021-8 ####[facility] CENTERNCLI [id number] [place] [address] [place] Hematocrit (Bld) [Volume fraction] 38.3 % Normal 36.0-46.0 [facility] Comment on above: Order Comment: Speci men Type: BLOOD SPECIMENOrdering Facility: [facility] Address: [address] [place] [address] Performed By: #### 5 7021-8 ####[facility]ITALA [id number] [place] [address] [place] Hemoglobin (Bld) [Mass/Vol] 12.5 g/dL Normal 11.5-15.5 [facility] Comment on above: Order Comment: Speci men Type: BLOOD SPECIMENOrdering Facility: [facility] Address: [address] [place] [address] Performed By: #### 5 7021-8 ####[facility] [id number] [place] [address] [place] Immature granulocytes (Bld) [#/Vol] 10*3/uL Normal <0.10 [facility] Comment on above: Order Comment: Speci men Type: BLOOD SPECIMENOrdering Facility: [facility] Address: [address] [place] [address] Performed By: #### 5 7021-8 ####[facility]ENTERNCLIA [id number] [place] [address] [place] [facility] Immature granulocytes/100 WBC (Bld) 0.6 % Normal [facility] Comment on above: Order Comment: Speci men Type: BLOOD SPECIMENOrdering Facility: [facility] Address: [address] [place] [address] Performed By: #### 5 7021-8 ####[facility]ENTERNCLIA [id number] [place] [address] [place] Lymphocytes (Bld) [#/Vol] 0.76 10*3/uL Low 1.00-4.00 [facility] Comment on above: Order Comment: Speci men Type: BLOOD SPECIMENOrdering Facility: [facility] Address: [address] [place] [address] Performed By: #### 5 7021-8 ####[facility]ENTERNCLIA [id number] [place] [address] [place] Lymphocytes/100 WBC (Bld) 23.0 % Normal [facility] Comment on above: Order Comment: Speci men Type: BLOOD SPECIMENOrdering Facility: [facility] Address: [address] [place] [address] Performed By: #### 5 7021-8 ####[facility]ENTERNCLIA [id number] [place] [address] [place] MCH (RBC) [Entitic mass] 29.7 pg Normal 26.0-34.0 [facility] Comment on above: Order Comment: Speci men Type: BLOOD SPECIMENOrdering Facility: [facility] Address: [address] [place] [address] Performed By: #### 5 7021-8 ####[facility]ENTERNCLI [id number] [place] [address] [place] MCHC (RBC) [Mass/Vol] 32.6 g/dL Normal 30.5-36.0 [facility] Comment on above: Order Comment: Speci men Type: BLOOD SPECIMENOrdering Facility: [facility] Address: [address] [place] [address] Performed By: #### 5 7021-8 ####[facility]A [id number] [place] [address] [place] MCV (RBC) [Entitic vol] 91.0 fL Normal 80.0-100.0 C [facility] Comment on above: Order Comment: Speci men Type: BLOOD SPECIMENOrdering Facility: [facility] Address: [address] [place] [address] Performed By: #### 5 7021-8 ####[facility]ITALA [id number] [place] [address] [place] Monocytes (Bld) [#/Vol] 0.25 10*3/uL Normal <0.87 [facility] Comment on above: Order Comment: Speci men Type: BLOOD SPECIMENOrdering Facility: [facility] Address: [address] [place] [address] Performed By: #### 5 7021-8 ####[facility] HOSPITALPHILLIPA [id number] [place] [address] [place] Monocytes/100 WBC (Bld) 7.6 % Normal C [facility] Comment on above: Order Comment: Speci men Type: BLOOD SPECIMENOrdering Facility: [facility] Address: [address] [place] [address] Performed By: #### 5 7021-8 ####[facility]OSPITALLIA [id number] [place] [address] [place] Neutrophils (Bld) [#/Vol] 2.16 10*3/uL Normal 1.45-7.50 [facility] Comment on above: Order Comment: Speci men Type: BLOOD SPECIMENOrdering Facility: [facility] Address: [address] [place] [address] Performed By: #### 5 7021-8 ####[facility] [id number] [place] [address] [place] Neutrophils/100 WBC (Bld) 65.2 % Normal [facility] Comment on above: Order Comment: Speci men Type: BLOOD SPECIMENOrdering Facility: [facility] Address: [address] [place] [address] Performed By: #### 5 7021-8 ####[facility] [id number] [place] [address] [place] Nucleated RBC (Bld) [#/Vol] 10*3/uL Normal <0.01 [facility] Comment on above: Order Comment: Speci men Type: BLOOD SPECIMENOrdering Facility: [facility] Address: [address] [place] [address] Performed By: #### 5 7021-8 ####[facility] [id number] [place] [address] [place] Nucleated RBC/100 WBC (Bld) [Ratio] 0.0 /100 WBC Normal [facility] Comment on above: Order Comment: Speci men Type: BLOOD SPECIMENOrdering Facility: [facility] Address: [address] [place] [address] Performed By: #### 5 7021-8 ####[facility] [id number] [place] [address] [place] Platelet mean volume (Bld) [Entitic vol] 11.4 fL Normal 9.0-12.7 [facility] Comment on above: Order Comment: Speci men Type: BLOOD SPECIMENOrdering Facility: [facility] Address: [address] [place] [address] [place] [address] Performed By: #### 5 7021-8 ####[facility] ANGELAA [id number] [place] [address] [place] Platelets (Bld) [#/Vol] 119 10*3/uL Low 150-400 [facility] Comment on above: Order Comment: Speci men Type: BLOOD SPECIMENOrdering Facility: [facility] Address: [address] [place], [place] [address] Performed By: #### 5 7021-8 ####[facility]NY[facility] WORCESTERNCLIA [id number] [place] [address] [place] RBC (Bld) [#/Vol] 4.21 10*6/uL Normal 3.90-5.20 [facility] Comment on above: Order Comment: Speci men Type: BLOOD SPECIMENOrdering Facility: [facility] Address: [address] [place] [address] Performed By: #### 5 7021-8 ####[facility]ENTERNCA [id number] [place] [address] [place] WBC (Bld) [#/Vol] 3.31 10*3/uL Low 3.70-11.00 [facility] Comment on above: Order Comment: Speci men Type: BLOOD SPECIMENOrdering Facility: [facility] Address: [address] [place], [place] [address] Performed By: #### 5 7021-8 ####[facility]ENTERNCLIA [id number] [place] [address] [facility] [place] Comprehensive metabolic 2000 panelon 04-14-2025 Albumin [Mass/Vol] 4.2 g/dL Normal 3.9-4.9 [facility] Comment on above: Order Comment: Speci men Type: BLOOD SPECIMENOrdering Facility: [facility] Address: [address] [place] [address] Performed By: #### 2 4323-8 ####[facility] TERESA MILLTOWNCLIA [id number] [place] [address] [place] ALP [Catalytic activity/Vol] 47 U/L Normal 34-123 [facility] Comment on above: Order Comment: Speci men Type: BLOOD SPECIMENOrdering Facility: [facility] Address: [address] [place] [address] Performed By: #### 2 4323-8 ####[facility] MILLTOWNCLIA [id number] [place] [address] [place] ALT [Catalytic activity/Vol] 19 U/L Normal 7-38 [facility] Comment on above: Order Comment: Speci men Type: BLOOD SPECIMENOrdering Facility: [facility] Address: [address] [place] [address] Performed By: #### 2 4323-8 ####[facility] HOSPITALWNCLIA [id number] [place] [address] [place] Anion gap [Moles/Vol] 14 mmol/L Normal 8-15 [facility] Comment on above: Order Comment: Speci men Type: BLOOD SPECIMENOrdering Facility: [facility] Address: [address] [place] [address] Performed By: #### 2 4323-8 ####[facility] HOSPITALWNCLIA [id number] [place] [address] [place] AST [Catalytic activity/Vol] 16 U/L Normal 13-35 [facility] Comment on above: Order Comment: Speci men Type: BLOOD SPECIMENOrdering Facility: [facility] Address: [address] [place] [address] Performed By: #### 2 4323-8 ####[facility] HOSPITALWNCLIA [id number] [place] [address] [place] Bilirubin [Mass/Vol] 0.4 mg/dL Normal 0.2-1.3 [facility] Comment on above: Order Comment: Speci men Type: BLOOD SPECIMENOrdering Facility: [facility] Address: [address] [place] [address] Performed By: #### 2 4323-8 ####[facility]ENTERNCLIA [id number] [place] [address] [place] Calcium [Mass/Vol] 9.3 mg/dL Normal 8.5-10.2 [facility] Comment on above: Order Comment: Speci men Type: BLOOD SPECIMENOrdering Facility: [facility] Address: [address] [place] [address] Performed By: #### 2 4323-8 ####[facility]ITALA [id number] [place] [address] [place] Chloride [Moles/Vol] 103 mmol/L Normal 98-107 [facility] Comment on above: Order Comment: Speci men Type: BLOOD SPECIMENOrdering Facility: [facility] Address: [address] [place] [address] Performed By: #### 2 4323-8 ####[facility]ITALA [id number] [place] [address] [place] CO2 [Moles/Vol] 24 mmol/L Normal 22-30 [facility] Comment on above: Order Comment: Speci men Type: BLOOD SPECIMENOrdering Facility: [facility] Address: [address] [place] [address] Performed By: #### 2 4323-8 ####[facility]ITALA [id number] [place] [address] [place] Creatinine [Mass/Vol] 0.90 mg/dL Normal 0.58-0.96 [facility] Comment on above: Order Comment: Speci men Type: BLOOD SPECIMENOrdering Facility: [facility] Address: [address] [place] [address] Performed By: #### 2 4323-8 ####[facility] HOSPITALWNCMOUNT[facility] [id number] [place] [address] [place] eGFRcr SerPlBld CKD-EPI 2020 62 mL/min/1.73m??? Normal >=60 [facility] Comment on above: Order Comment: Caleb bradley Type: BLOOD SPECIMENOrdering Facility: [facility] Address: [address] [place] [address] Result Comment: Lashonda mated Glomerular Filtration Rate (eGFR) is calculated using the 2020 CKD-EPI creatinine equation. This equation utilizes serum creatinine, sex, and age as parameters. The creatinine assay has traceable calibration to isotope dilution-mass spectrometry. Refer to KDIGO guidelines for clinical interpretation. In patients with unstable renal function, e.g. those with acute kidney injury, the eGFR may not accurately reflect actual GFR. Performed By: #### 2 4323-8 ####[facility] [id number] [place] [address] [place] Glucose [Mass/Vol] 103 mg/dL High 74-99 [facility] Comment on above: Order Comment: Caleb bradley Type: BLOOD SPECIMENOrdering Facility: [facility] Address: [address] [place] [address] Result Comment: The [place] Diabetes Association (ADA) provides guidance for cutoff values for fasting glucose and random glucose. The ADA defines fasting as no caloric intake for at least 8 hours. Fasting plasma glucose results between 100 to 125 mg/dL indicate increased risk for diabetes (prediabetes).Fasting plasma glucose results greater than or equal to 126 mg/dL meet the criteria for diagnosis of diabetes. In the absence of unequivocal hyperglycemia, results should be confirmed by repeat testing. In a patient with classic symptoms of hyperglycemia or hyperglycemic crisis, random plasma glucose results greater than or equal to 200 mg/dL meet the criteria for diagnosis of diabetes.Reference: Standards of Medical Care in Diabetes 2016, [place] [employer]. Diabetes Care. 2016.39(Suppl 1). Performed By: #### 2 4323-8 ####[facility] [id number] [place] [address] [place] Potassium [Moles/Vol] 4.0 mmol/L Normal 3.7-5.1 [facility] Comment on above: Order Comment: Speci men Type: BLOOD SPECIMENOrdering Facility: [facility] Address: [address] [place] [address] Performed By: #### 2 4323-8 ####[facility] MILLWNCLIA [id number] [place] [address] [place] Protein [Mass/Vol] 6.3 g/dL Normal 6.3-8.0 [facility] Comment on above: Order Comment: Speci men Type: BLOOD SPECIMENOrdering Facility: [facility] Address: [address] [place] [address] Performed By: #### 2 4323-8 ####[facility] CENTERMEHREENLIA [id number] [place] [address] [place] Sodium [Moles/Vol] 141 mmol/L Normal 136-144 [facility] Comment on above: Order Comment: Speci men Type: BLOOD SPECIMENOrdering Facility: [facility] Address: [address] [place] [address] Performed By: #### 2 4323-8 ####[facility] HOSPITALWMEHREENLIA [id number] [place] [address] [place] Urea nitrogen [Mass/Vol] 22 mg/dL High 7-21 [facility] Comment on above: Order Comment: Speci men Type: BLOOD SPECIMENOrdering Facility: [facility] Address: [address] [place] [address] Performed By: #### 2 4323-8 ####[facility]ENTERNCLIA [id number] [place] [address] [place] IMMUNOFIXATION SCREEN, SERUM on 04-14-2025 INTERPRETATION (MPA) Normal [facility] Comment on above: Order Comment: Caleb bradley Type: BLOOD SPECIMENOrdering Facility: [facility] Address: [address] [place] [address] Result Comment: Ther e is an atypical restricted band present in the IgG and kappa regions. The location of the IgG kappa band suggests the presence of daratumumab, although one cannot rule out the possibility that this band represents a disease-related monoclonal protein. If clinically required, specific testing for daratumumab may be ordered to confirm the presence of the drug in this patient.Poorly definded region of restricted mobility in IgG and lambda lanes. Pattern is less well defined or fainter than typically seen in monoclonal gammopathy. This could represent either an atypical presentation of polyclonal immunoglobulins or the presence of a low level IgG lambda monoclonal gammopathy. If clinically indicated, urine monoclonal protein analysis and serum free light chain measurements are recommended to evaluate further for monoclonal gammopathy. Clinical correlation is necessary. Performed By: #### I FESC ####[facility] LABIA [id number] [address] STATES OF [facility] MPA RESULT M protein is present. Abnormal No M p rotein is identified. [facility] Comment on above: Order Comment: Caleb bradley Type: BLOOD SPECIMENOrdering Facility: [facility] Address: [address] [place] [address] Performed By: #### I FESC ####[facility] LABCLIA [id number] [place] [id number] [facility] [place] STAFF REVIEW (MPA) Reviewed by Juju Thomas M.D. Normal [facility] Comment on above: Order Comment: Caleb bradley Type: BLOOD SPECIMENOrdering Facility: [facility] Address: [address] [place] [address] Performed By: #### I FESC ####[facility] LABIA [id number] [address] [address] [place] IMMUNOGLOBULINS,IGG,IGA,IGMo n 04-14-2025 IgA [Mass/Vol] 60 mg/dL Low 70-400 [facility] Comment on above: Order Comment: Speci men Type: BLOOD SPECIMENOrdering Facility: [facility] Address: [address] [place] [address] Performed By: #### S ERIMM ####[facility] LABCLIA [id number] [place] [address] [place] IgG [Mass/Vol] 720 mg/dL Normal 700-1600 [facility] Comment on above: Order Comment: Speci men Type: BLOOD SPECIMENOrdering Facility: [facility] Address: [address] [place] [address] Performed By: #### S ERIMM ####[facility] LABCLIA [id number] [place] [address] [place] IgM [Mass/Vol] 37 mg/dL Low 40-230 [facility] Comment on above: Order Comment: Speci men Type: BLOOD SPECIMENOrdering Facility: [facility] Address: [address] [place] [address] Performed By: #### S ERIMM ####[facility] LABIA [id number] [place] [address] [place] KAPPA/MCINTOSH,FREE,SERon 2024 Immunoglobulin light chains.kappa.free (S) [Mass/Vol] 13.6 mg/L Normal 3.3-19.4 [facility] Comment on above: Order Comment: Speci men Type: BLOOD SPECIMENOrdering Facility: [facility] Address: [address] [place] [address] Result Comment: Rare ly, increased serum free light chains levels may not be detected or accurately quantified due to prozone phenomenon or in high viscosity samples using this immunoturbidimetric assay. Correlation with other laboratory results and clinical findings is recommended.The [place] Free Light Chain was performed using the Binding Site Optilite immunoturbidimetric method. Result obtained with different assay methods or kits cannot be used interchangeably. Performed By: #### K LFRS ####[facility] LABCLIA [id number] [place] [address] [place] Immunoglobulin light chains.kappa/Immunoglob ulin light chains.lambda (S) [Mass ratio] 0.79 Normal 0.26-1.65 [facility] Comment on above: Order Comment: Speci men Type: BLOOD SPECIMENOrdering Facility: [facility] Address: [address] [place] [address] Performed By: #### K LFRS ####[facility] LABCLIA [id number] [place] [address] [place] Immunoglobulin light chains.lambda.free [Mass/Vol] 17.2 mg/L Normal 5.7-26.3 [facility] Comment on above: Order Comment: Speci men Type: BLOOD SPECIMENOrdering Facility: [facility] Address: [address] [place] [address] Result Comment: Rare ly, increased serum free light chains levels may not be detected or accurately quantified due to prozone phenomenon or in high viscosity samples using this immunoturbidimetric assay. Correlation with other laboratory results and clinical findings is recommended.The L[place] Free Light Chain was performed using the Binding Site Optilite immunoturbidimetric method. Result obtained with different assay methods or kits cannot be used interchangeably. Performed By: #### K LFRS ####[facility] LABCLIA [id number] [place] [address] [place] PROTEIN ELECTROPHORESIS SERU M (P)on 04-14-2025 Albumin [Mass/Vol] 3.90 g/dL Normal 3.43-5.41 [facility] Comment on above: Order Comment: Speci men Type: BLOOD SPECIMENOrdering Facility: [facility] Address: [address] [place] [address] Performed By: #### L [id number] ####[facility] LABCLIA [id number] [place] [address] [place] Alpha 1 globulin Elph [Mass/Vol] 0.29 g/dL Normal 0.18-0.43 [facility] Comment on above: Order Comment: Speci men Type: BLOOD SPECIMENOrdering Facility: [facility] Address: [address] [place] [address] Performed By: #### L [id number] ####[facility] [facility] LABCLIA [id number] [place] [address] [place] Alpha 2 globulin Elph [Mass/Vol] 0.60 g/dL Normal 0.42-0.98 [facility] Comment on above: Order Comment: Speci men Type: BLOOD SPECIMENOrdering Facility: [facility] Address: [address] [place] [address] Performed By: #### L [id number] ####[facility] LABIA [id number] [place] [address] [place] Beta globulin Elph [Mass/Vol] 0.52 g/dL Low 0.61-1.17 [facility] Comment on above: Order Comment: Speci men Type: BLOOD SPECIMENOrdering Facility: [facility] Address: [address] [place] [address] Performed By: #### L [id number] ####[facility] LABCLIA [id number] [place] [address] [place] Gamma globulin Elph [Mass/Vol] 0.60 g/dL Normal 0.53-1.51 [facility] Comment on above: Order Comment: Speci men Type: BLOOD SPECIMENOrdering Facility: [facility] Address: [address] [place] [address] Performed By: #### L [id number] ####[facility] LABCLIA [id number] [place] [address] [place] M-PROTEIN LOCATION Normal [facility] Comment on above: Order Comment: Speci men Type: BLOOD SPECIMENOrdering Facility: [facility] Address: [address] [place] [address] Result Comment: Not Applicable. Performed By: #### L [id number] ####[facility] LABCLIA [id number] [place] [address] [place] Protein Fractions [Interp] No definitive M protein is identified on protein electrophoresis. Normal No definitive M protein is identified on protein electrophore sis. [facility] Comment on above: Order Comment: Speci men Type: BLOOD SPECIMENOrdering Facility: [facility] Address: [address] [place] [address] Performed By: #### L [id number] ####[facility] LABIA [id number] [address] [place] Protein.monoclonal Elph [Mass/Vol] 0.00 g/dL Normal <=0.00 [facility] Comment on above: Order Comment: Speci men Type: BLOOD SPECIMENOrdering Facility: [facility] Address: [address] [place] [address] Performed By: #### L [id number] ####[facility] [id number] [place] [address] [place] SPE STAFF REVIEW Reviewed by Juju Thomas M.D. Normal [facility] Comment on above: Order Comment: Speci men Type: BLOOD SPECIMENOrdering Facility: [facility] Address: [address] [place] [address] Performed By: #### L [id number] ####[facility] [id number] [place] [address] [place] Prot SerPl-mCncon 04-14-2025 Protein [Mass/Vol] 5.9 g/dL Low 6.3-8.0 [facility] Comment on above: Order Comment: Speci men Type: BLOOD SPECIMENOrdering Facility: [facility] Address: [address] [place] [address] Performed By: #### 2 885-2 ####[facility] [id number] [address] [place] CNOVSPon 03-21-2025 CNOVSP Normal [facility] CBC W Auto Differential pane l (Bld)on 03-17-2025 Basophils (Bld) [#/Vol] 0.03 10*3/uL Normal <0.11 [facility] Comment on above: Order Comment: Speci men Type: BLOOD SPECIMENOrdering Facility: [facility] Address: [address] [place] [address] Performed By: #### 5 7021-8 ####[facility] [id number] [place] [address] [place] Basophils/100 WBC (Bld) 0.8 % Normal C [facility] Comment on above: Order Comment: Speci men Type: BLOOD SPECIMENOrdering Facility: [facility] Address: [address] [place] [address] Performed By: #### 5 7021-8 ####[facility] [id number] [place] [address] [place] Differential cell count method Nom (Bld) Auto Normal [facility] Comment on above: Order Comment: Speci men Type: BLOOD SPECIMENOrdering Facility: [facility] Address: [address] [place] [address] Performed By: #### 5 7021-8 ####[facility] [id number] [place] [address] [place] Eosinophils (Bld) [#/Vol] 0.09 10*3/uL Normal <0.46 [facility] Comment on above: Order Comment: Speci men Type: BLOOD SPECIMENOrdering Facility: [facility] Address: [address] [place] [address] Performed By: #### 5 7021-8 ####[facility] [id number] [place] [address] [place] Eosinophils/100 WBC (Bld) 2.3 % Normal [facility] Comment on above: Order Comment: Speci men Type: BLOOD SPECIMENOrdering Facility: [facility] Address: [address] [place] [address] Performed By: #### 5 7021-8 ####[facility] TEOFILONCСЕРГЕЙ [id number] [place] [address] [place] Erythrocyte distribution width (RBC) [Ratio] 14.9 % Normal 11.5-15.0 [facility] Comment on above: Order Comment: Speci men Type: BLOOD SPECIMENOrdering Facility: [facility] Address: [address] [place] [address] Performed By: #### 5 7021-8 ####[facility] WORCESTERSTEFANIE [id number] [place] [address] [place] Hematocrit (Bld) [Volume fraction] 37.2 % Normal 36.0-46.0 [facility] Comment on above: Order Comment: Speci men Type: BLOOD SPECIMENOrdering Facility: [facility] Address: [address] [place] [address] Performed By: #### 5 7021-8 ####[facility] SUNNYE[facility] WORCESTERDANIELLAA [id number] [place] [address] [place] Hemoglobin (Bld) [Mass/Vol] 12.0 g/dL Normal 11.5-15.5 [facility] Comment on above: Order Comment: Speci men Type: BLOOD SPECIMENOrdering Facility: [facility] Address: [address] [place] [address] Performed By: #### 5 7021-8 ####[facility]ENTERMEHREENLIA [id number] [place] [address] [place] Immature granulocytes (Bld) [#/Vol] 10*3/uL Normal <0.10 [facility] Comment on above: Order Comment: Speci men Type: BLOOD SPECIMENOrdering Facility: [facility] Address: [address] [place] [address] Performed By: #### 5 7021-8 ####[facility] MILLWNCLIA [id number] [place] [address] [place] Immature granulocytes/100 WBC (Bld) 0.3 % Normal [facility] Comment on above: Order Comment: Speci men Type: BLOOD SPECIMENOrdering Facility: [facility] Address: [address] [place] [address] Performed By: #### 5 7021-8 ####[facility]ALL[facility] [id number] [place] [address] [place] Lymphocytes (Bld) [#/Vol] 0.98 10*3/uL Low 1.00-4.00 [facility] Comment on above: Order Comment: Speci men Type: BLOOD SPECIMENOrdering Facility: [facility] Address: [address] [place] [address] Performed By: #### 5 7021-8 ####[facility]ALLIA [id number] [place] [address] [place] Lymphocytes/100 WBC (Bld) 24.9 % Normal [facility] Comment on above: Order Comment: Speci men Type: BLOOD SPECIMENOrdering Facility: [facility] Address: [address] [place] [address] Performed By: #### 5 7021-8 ####[facility]ITALLIA [id number] [place] [address] [place] MCH (RBC) [Entitic mass] 29.4 pg Normal 26.0-34.0 [facility] Comment on above: Order Comment: Speci men Type: BLOOD SPECIMENOrdering Facility: [facility] Address: [address] [place] [address] Performed By: #### 5 7021-8 ####[facility] CENTERNCLIA [id number] [place] [address] [place] MCHC (RBC) [Mass/Vol] 32.3 g/dL Normal 30.5-36.0 [facility] Comment on above: Order Comment: Speci men Type: BLOOD SPECIMENOrdering Facility: [facility] Address: [address] [place] [address] Performed By: #### 5 7021-8 ####[facility] CENTERNCA [id number] [place] [address] [place] MCV (RBC) [Entitic vol] 91.2 fL Normal 80.0-100.0 C [facility] Comment on above: Order Comment: Speci men Type: BLOOD SPECIMENOrdering Facility: [facility] Address: [address] [place] [address] Performed By: #### 5 7021-8 ####[facility] CENTERNCA [id number] [place] [address] [place] Monocytes (Bld) [#/Vol] 0.28 10*3/uL Normal <0.87 [facility] Comment on above: Order Comment: Speci men Type: BLOOD SPECIMENOrdering Facility: [facility] Address: [address] [place] [address] Performed By: #### 5 7021-8 ####[facility] [id number] [place] [address] [place] Monocytes/100 WBC (Bld) 7.1 % Normal C [facility] Comment on above: Order Comment: Speci men Type: BLOOD SPECIMENOrdering Facility: [facility] Address: [address] [place] [address] Performed By: #### 5 7021-8 ####[facility]ENTERNCLIA [id number] [place] [address] [place] Neutrophils (Bld) [#/Vol] 2.55 10*3/uL Normal 1.45-7.50 [facility] Comment on above: Order Comment: Speci men Type: BLOOD SPECIMENOrdering Facility: [facility] Address: [address] [place] [address] Performed By: #### 5 7021-8 ####[facility] SUN[facility]ANK[facility] [id number] [place] [address] [place] Neutrophils/100 WBC (Bld) 64.6 % Normal [facility] Comment on above: Order Comment: Speci men Type: BLOOD SPECIMENOrdering Facility: [facility] Address: [address] [place] [address] Performed By: #### 5 7021-8 ####[facility] [id number] [place] [address] [place] Nucleated RBC (Bld) [#/Vol] 10*3/uL Normal <0.01 [facility] Comment on above: Order Comment: Speci men Type: BLOOD SPECIMENOrdering Facility: [facility] Address: [address] [place] [address] Performed By: #### 5 7021-8 ####[facility] [id number] [place] [address] [place] Nucleated RBC/100 WBC (Bld) [Ratio] 0.0 /100 WBC Normal [facility] Comment on above: Order Comment: Speci men Type: BLOOD SPECIMENOrdering Facility: [facility] Address: [address] [place] [address] Performed By: #### 5 7021-8 ####[facility] [id number] [place] [address] [place] Platelet mean volume (Bld) [Entitic vol] 11.0 fL Normal 9.0-12.7 [facility] Comment on above: Order Comment: Speci men Type: BLOOD SPECIMENOrdering Facility: [facility] Address: [address] [place] [address] Performed By: #### 5 7021-8 ####[facility]ENTERNCLIA [id number] [place] [address] [place] Platelets (Bld) [#/Vol] 120 10*3/uL Low 150-400 [facility] Comment on above: Order Comment: Speci men Type: BLOOD SPECIMENOrdering Facility: [facility] Address: [address] [place], [place] [address] Performed By: #### 5 7021-8 ####[facility] CENTERMEHREENLIA [id number] [place] [address] [place] RBC (Bld) [#/Vol] 4.08 10*6/uL Normal 3.90-5.20 [facility] Comment on above: Order Comment: Speci men Type: BLOOD SPECIMENOrdering Facility: [facility] Address: [address] [place], [place] [address] Performed By: #### 5 7021-8 ####[facility] [id number] [place] [address] [place] WBC (Bld) [#/Vol] 3.94 10*3/uL Normal 3.70-11.00 [facility] Comment on above: Order Comment: Speci men Type: BLOOD SPECIMENOrdering Facility: [facility] Address: [address] [place] [address] Performed By: #### 5 7021-8 ####[facility]ENTERNCLIA [id number] [place] [address] [place] Comprehensive metabolic 2000 panelon 03-17-2025 Albumin [Mass/Vol] 4.2 g/dL Normal 3.9-4.9 [facility] Comment on above: Order Comment: Speci men Type: BLOOD SPECIMENOrdering Facility: [facility] Address: [address] [place] [address] Performed By: #### 2 4323-8 ####[facility] MILLTOWNCLIA [id number] [place] [address] [place] ALP [Catalytic activity/Vol] 47 U/L Normal 34-123 [facility] Comment on above: Order Comment: Speci men Type: BLOOD SPECIMENOrdering Facility: [facility] Address: [address] [place] [address] Performed By: #### 2 4323-8 ####[facility] MILLTOWNCLIA [id number] [place] [address] [place] ALT [Catalytic activity/Vol] 20 U/L Normal 7-38 [facility] Comment on above: Order Comment: Speci men Type: BLOOD SPECIMENOrdering Facility: [facility] Address: [address] [place] [address] Performed By: #### 2 4323-8 ####[facility] MILLWNCLIA [id number] [place] [address] [place] Anion gap [Moles/Vol] 11 mmol/L Normal 8-15 [facility] Comment on above: Order Comment: Speci men Type: BLOOD SPECIMENOrdering Facility: [facility] Address: [address] [place] [address] Performed By: #### 2 4323-8 ####[facility] MILLTOWNCLIA [id number] [place] [address] [place] AST [Catalytic activity/Vol] 15 U/L Normal 13-35 [facility] Comment on above: Order Comment: Speci men Type: BLOOD SPECIMENOrdering Facility: [facility] Address: [address] [place] [address] Performed By: #### 2 4323-8 ####[facility] MILLTOWNCLIA [id number] [place] [address] [place] Bilirubin [Mass/Vol] 0.3 mg/dL Normal 0.2-1.3 [facility] Comment on above: Order Comment: Speci men Type: BLOOD SPECIMENOrdering Facility: [facility] Address: [address] [place] [address] Performed By: #### 2 4323-8 ####[facility] TEOFILONCLIA [id number] [place] [address] [place] Calcium [Mass/Vol] 9.3 mg/dL Normal 8.5-10.2 [facility] Comment on above: Order Comment: Speci men Type: BLOOD SPECIMENOrdering Facility: [facility] Address: [address] [place] [address] Performed By: #### 2 4323-8 ####[facility]ENTERNCLIA [id number] [place] [address] [place] Chloride [Moles/Vol] 104 mmol/L Normal 98-107 [facility] Comment on above: Order Comment: Speci men Type: BLOOD SPECIMENOrdering Facility: [facility] Address: [address] [place] [address] Performed By: #### 2 4323-8 ####[facility]ENTERNCLIA [id number] [place] [address] [place] CO2 [Moles/Vol] 25 mmol/L Normal 22-30 [facility] Comment on above: Order Comment: Speci men Type: BLOOD SPECIMENOrdering Facility: [facility] Address: [address] [place] [address] Performed By: #### 2 4323-8 ####[facility]ENTERNCLIA [id number] [place] [address] [place] Creatinine [Mass/Vol] 0.83 mg/dL Normal 0.58-0.96 [facility] Comment on above: Order Comment: Speci men Type: BLOOD SPECIMENOrdering Facility: [facility] Address: [address] [place] [address] Performed By: #### 2 4323-8 ####[facility] HOSPITALWNCLIA [id number] [place] [address] [place] eGFRcr SerPlBld CKD-EPI 2020 68 mL/min/1.73m??? Normal >=60 [facility] Comment on above: Order Comment: Caleb bradley Type: BLOOD SPECIMENOrdering Facility: [facility] Address: [address] [place] [address] Result Comment: Lashonda mated Glomerular Filtration Rate (eGFR) is calculated using the 2020 CKD-EPI creatinine equation. This equation utilizes serum creatinine, sex, and age as parameters. The creatinine assay has traceable calibration to isotope dilution-mass spectrometry. Refer to KDIGO guidelines for clinical interpretation. In patients with unstable renal function, e.g. those with acute kidney injury, the eGFR may not accurately reflect actual GFR. Performed By: #### 2 4323-8 ####[facility] [id number] [place] [address] [place] Glucose [Mass/Vol] 98 mg/dL Normal 74-99 [facility] Comment on above: Order Comment: Caleb bradley Type: BLOOD SPECIMENOrdering Facility: [facility] Address: [address] [place] [address] Result Comment: The [place] Diabetes Association (ADA) provides guidance for cutoff values for fasting glucose and random glucose. The ADA defines fasting as no caloric intake for at least 8 hours. Fasting plasma glucose results between 100 to 125 mg/dL indicate increased risk for diabetes (prediabetes).Fasting plasma glucose results greater than or equal to 126 mg/dL meet the criteria for diagnosis of diabetes. In the absence of unequivocal hyperglycemia, results should be confirmed by repeat testing. In a patient with classic symptoms of hyperglycemia or hyperglycemic crisis, random plasma glucose results greater than or equal to 200 mg/dL meet the criteria for diagnosis of diabetes.Reference: Standards of Medical Care in Diabetes 2016, [place] [employer]. Diabetes Care. 2016.39(Suppl 1). Performed By: #### 2 4323-8 ####[facility] [id number] [place] [address] [place] Potassium [Moles/Vol] 4.3 mmol/L Normal 3.7-5.1 [facility] Comment on above: Order Comment: Speci men Type: BLOOD SPECIMENOrdering Facility: [facility] Address: [address] [place] [address] Performed By: #### 2 4323-8 ####[facility] MILLTOWNCLIA [id number] [place] [address] [place] Protein [Mass/Vol] 6.3 g/dL Normal 6.3-8.0 [facility] Comment on above: Order Comment: Speci men Type: BLOOD SPECIMENOrdering Facility: [facility] Address: [address] [place] [address] Performed By: #### 2 4323-8 ####[facility] CENTERMEHREENLIA [id number] [place] [address] [place] Sodium [Moles/Vol] 140 mmol/L Normal 136-144 [facility] Comment on above: Order Comment: Speci men Type: BLOOD SPECIMENOrdering Facility: [facility] Address: [address] [place] [address] Performed By: #### 2 4323-8 ####[facility] MILLWNCLIA [id number] [place] [address] [place] Urea nitrogen [Mass/Vol] 19 mg/dL Normal 7-21 [facility] Comment on above: Order Comment: Speci men Type: BLOOD SPECIMENOrdering Facility: [facility] Address: [address] [place] [address] Performed By: #### 2 4323-8 ####[facility] MILLWNCLIA [id number] [place] [address] [place] IMMUNOFIXATION SCREEN, SERUM on 03-17-2025 INTERPRETATION (MPA) Normal [facility] Comment on above: Order Comment: Caleb bradley Type: BLOOD SPECIMENOrdering Facility: [facility] Address: [address] [place] [address] Result Comment: Ther e is an atypical restricted band present in the IgG and kappa regions. The location of the IgG kappa band suggests the presence of daratumumab, although one cannot rule out the possibility that this band represents a disease-related monoclonal protein. If clinically required, specific testing for daratumumab may be ordered to confirm the presence of the drug in this patient.Poorly defined region of restricted mobility in the lambda alejandro. Pattern is less well defined or fainter than typically seen in monoclonal gammopathy. This could represent either an atypical presentation of polyclonal immunoglobulins or the presence of a low level lambda containing monoclonal gammopathy. If clinically indicated, urine monoclonal protein analysis and serum free light chain measurements are recommended to evaluate further for monoclonal gammopathy. Clinical correlation is necessary. Performed By: #### I FESC ####[facility] LABCLIA [id number] [address] STATES OF [facility] MPA RESULT M protein is present. Abnormal No M p rotein is identified. [facility] Comment on above: Order Comment: Caleb bradley Type: BLOOD SPECIMENOrdering Facility: [facility] Address: [address] [place] [address] Performed By: #### I FESC ####[facility] LABCLIA [id number] [place] [id number] [facility] STAFF REVIEW (MPA) Reviewed by Aleyda Rogel MD [facility] Comment on above: Order Comment: Caleb bradley Type: BLOOD SPECIMENOrdering Facility: [facility] Address: [address] [place] [address] Performed By: #### I FESC ####[facility] LABCLIA [id number] [place] [id number] [place] IMMUNOGLOBULINS,IGG,IGA,IGMo n 03-17-2025 IgA [Mass/Vol] 63 mg/dL Low 70-400 [facility] Comment on above: Order Comment: Caleb bradley Type: BLOOD SPECIMENOrdering Facility: [facility] Address: [address] [place] [address] Performed By: #### S ERIMM ####[facility] LABCLIA [id number] [place] [address] [place] IgG [Mass/Vol] 733 mg/dL Normal 700-1600 [facility] Comment on above: Order Comment: Speci men Type: BLOOD SPECIMENOrdering Facility: [facility] Address: [address] [place] [address] Performed By: #### S ERIMM ####[facility] LABCLIA [id number] [place] [address] [place] IgM [Mass/Vol] 36 mg/dL Low 40-230 [facility] Comment on above: Order Comment: Speci men Type: BLOOD SPECIMENOrdering Facility: [facility] Address: [address] [place] [address] Performed By: #### S ERIMM ####[facility] LABCLIA [id number] [place] [address] [place] KAPPA/MCINTOSH,FREE,SERon 2024 Immunoglobulin light chains.kappa.free (S) [Mass/Vol] 12.8 mg/L Normal 3.3-19.4 [facility] Comment on above: Order Comment: Speci men Type: BLOOD SPECIMENOrdering Facility: [facility] Address: [address] [place] [address] Result Comment: Rare ly, increased serum free light chains levels may not be detected or accurately quantified due to prozone phenomenon or in high viscosity samples using this immunoturbidimetric assay. Correlation with other laboratory results and clinical findings is recommended.The [place] Free Light Chain was performed using the Binding Site Optilite immunoturbidimetric method. Result obtained with different assay methods or kits cannot be used interchangeably. Performed By: #### K LFRS ####[facility] LABCLIA [id number] [place] [address] [place] Immunoglobulin light chains.kappa/Immunoglob ulin light chains.lambda (S) [Mass ratio] 0.89 Normal 0.26-1.65 [facility] Comment on above: Order Comment: Speci men Type: BLOOD SPECIMENOrdering Facility: [facility] Address: [address] [place] [address] Performed By: #### K LFRS ####[facility] LABCLIA [id number] [place] [address] [place] Immunoglobulin light chains.lambda.free [Mass/Vol] 14.4 mg/L Normal 5.7-26.3 [facility] Comment on above: Order Comment: Speci men Type: BLOOD SPECIMENOrdering Facility: [facility] Address: [address] [place] [address] Result Comment: Rare ly, increased serum free light chains levels may not be detected or accurately quantified due to prozone phenomenon or in high viscosity samples using this immunoturbidimetric assay. Correlation with other laboratory results and clinical findings is recommended.The Lambda Free Light Chain was performed using the Binding Site Optilite immunoturbidimetric method. Result obtained with different assay methods or kits cannot be used interchangeably. Performed By: #### K LFRS ####[facility] LABIA [id number] [place] [address] [place] PROTEIN ELECTROPHORESIS SERU M (P)on 03-17-2025 Albumin [Mass/Vol] 4.01 g/dL Normal 3.43-5.41 [facility] Comment on above: Order Comment: Speci men Type: BLOOD SPECIMENOrdering Facility: [facility] Address: [address] [place] [address] Performed By: #### L [id number] ####[facility] LABIA [id number] [place] [address] [place] Alpha 1 globulin Elph [Mass/Vol] 0.32 g/dL Normal 0.18-0.43 [facility] Comment on above: Order Comment: Speci men Type: BLOOD SPECIMENOrdering Facility: [facility] Address: [address] [place] [address] Performed By: #### L [id number] ####[facility] LABIA [id number] [place] [address] [place] Alpha 2 globulin Elph [Mass/Vol] 0.61 g/dL Normal 0.42-0.98 [facility] Comment on above: Order Comment: Speci men Type: BLOOD SPECIMENOrdering Facility: [facility] Address: [address] [place] [address] Performed By: #### L [id number] ####[facility] LABCLIA [id number] [place] [address] [place] Beta globulin Elph [Mass/Vol] 0.57 g/dL Low 0.61-1.17 [facility] Comment on above: Order Comment: Speci men Type: BLOOD SPECIMENOrdering Facility: [facility] Address: [address] [place] [address] Performed By: #### L [id number] ####[facility] LABIA [id number] [place] [address] [place] Gamma globulin Elph [Mass/Vol] 0.59 g/dL Normal 0.53-1.51 [facility] Comment on above: Order Comment: Speci men Type: BLOOD SPECIMENOrdering Facility: [facility] Address: [address] [place] [address] Performed By: #### L [id number] ####[facility] LABCLIA [id number] [place] [address] [place] M-PROTEIN LOCATION Normal [facility] Comment on above: Order Comment: Speci men Type: BLOOD SPECIMENOrdering Facility: [facility] Address: [address] [place] [address] Result Comment: Not Applicable. Performed By: #### L [id number] ####[facility] LABCLIA [id number] [address] [place] Protein Fractions [Interp] No definitive M protein is identified on protein electrophoresis. Normal No definitive M protein is identified on protein electrophore sis. [facility] Comment on above: Order Comment: Speci men Type: BLOOD SPECIMENOrdering Facility: [facility] Address: [address] [place] [address] Performed By: #### L [id number] ####[facility] LABIA [id number] [address] [place] Protein.monoclonal Elph [Mass/Vol] 0.00 g/dL Normal <=0.00 [facility] Comment on above: Order Comment: Speci men Type: BLOOD SPECIMENOrdering Facility: [facility] Address: [address] [place] [address] Performed By: #### L [id number] ####[facility] LABIA [id number] [place] [address] [place] SPE STAFF REVIEW Reviewed by Juju Thomas M.D. Normal [facility] Comment on above: Order Comment: Speci men Type: BLOOD SPECIMENOrdering Facility: [facility] Address: [address] [place] [address] Performed By: #### L [id number] ####[facility] LABIA [id number] [place] [address] [place] Prot SerPl-mCncon 03-17-2025 Protein [Mass/Vol] 6.1 g/dL Low 6.3-8.0 [facility] Comment on above: Order Comment: Speci men Type: BLOOD SPECIMENOrdering Facility: [facility] Address: [address] [place] [address] Performed By: #### 2 885-2 ####[facility] LABIA [id number] [place] [address] [place] CNOVon 03-13-2025 CNOV Normal [facility] CNOVon 03-11-2025 CNOV Normal [facility] CNOVSPon 02-21-2025 CNOVSP Normal [facility] CBC W Auto Differential pane l (Bld)on 02-17-2025 Basophils (Bld) [#/Vol] 0.03 10*3/uL Normal <0.11 [facility] Comment on above: Order Comment: Speci men Type: BLOOD SPECIMENOrdering Facility: [facility] Address: [address] [place] [address] Performed By: #### 5 7021-8 ####[facility] [id number] [place] [address] [place] Basophils/100 WBC (Bld) 0.8 % Normal [facility] Comment on above: Order Comment: Speci men Type: BLOOD SPECIMENOrdering Facility: [facility] Address: [address] [place] [address] Performed By: #### 5 7021-8 ####[facility] [id number] [place] [address] [place] Differential cell count method Nom (Bld) Auto Normal [facility] Comment on above: Order Comment: Speci men Type: BLOOD SPECIMENOrdering Facility: [facility] Address: [address] [place] [address] Performed By: #### 5 7021-8 ####[facility] [id number] [place] [address] [place] Eosinophils (Bld) [#/Vol] 0.05 10*3/uL Normal <0.46 [facility] Comment on above: Order Comment: Speci men Type: BLOOD SPECIMENOrdering Facility: [facility] Address: [address] [place] [address] Performed By: #### 5 7021-8 ####[facility] [id number] [place] [address] [place] Eosinophils/100 WBC (Bld) 1.3 % Normal [facility] Comment on above: Order Comment: Speci men Type: BLOOD SPECIMENOrdering Facility: [facility] Address: [address] [place] [address] Performed By: #### 5 7021-8 ####[facility] [id number] [place] [address] [place] Erythrocyte distribution width (RBC) [Ratio] 14.9 % Normal 11.5-15.0 [facility] Comment on above: Order Comment: Speci men Type: BLOOD SPECIMENOrdering Facility: [facility] Address: [address] [place] [address] Performed By: #### 5 7021-8 ####[facility] [id number] [place] [address] [place] Hematocrit (Bld) [Volume fraction] 35.6 % Low 36.0-46.0 [facility] Comment on above: Order Comment: Speci men Type: BLOOD SPECIMENOrdering Facility: [facility] Address: [address] [place] [address] Performed By: #### 5 7021-8 ####[facility] [id number] [place] [address] [place] Hemoglobin (Bld) [Mass/Vol] 11.7 g/dL Normal 11.5-15.5 [facility] Comment on above: Order Comment: Speci men Type: BLOOD SPECIMENOrdering Facility: [facility] Address: [address] [place] [address] Performed By: #### 5 7021-8 ####[facility] [id number] [place] [address] [place] Immature granulocytes (Bld) [#/Vol] 10*3/uL Normal <0.10 [facility] Comment on above: Order Comment: Speci men Type: BLOOD SPECIMENOrdering Facility: [facility] Address: [address] [place] [address] Performed By: #### 5 7021-8 ####[facility] SUNNYWNCLIA [id number] [place] [address] [place] Immature granulocytes/100 WBC (Bld) 0.5 % Normal [facility] Comment on above: Order Comment: Speci men Type: BLOOD SPECIMENOrdering Facility: [facility] Address: [address] [place] [address] Performed By: #### 5 7021-8 ####[facility]ERNCLIA [id number] [place] [address] [place] Lymphocytes (Bld) [#/Vol] 0.89 10*3/uL Low 1.00-4.00 [facility] Comment on above: Order Comment: Speci men Type: BLOOD SPECIMENOrdering Facility: [facility] Address: [address] [place] [address] Performed By: #### 5 7021-8 ####[facility] [id number] [place] [address] [place] Lymphocytes/100 WBC (Bld) 23.2 % Normal [facility] Comment on above: Order Comment: Speci men Type: BLOOD SPECIMENOrdering Facility: [facility] Address: [address] [place] [address] Performed By: #### 5 7021-8 ####[facility] [id number] [place] [address] [place] MCH (RBC) [Entitic mass] 30.2 pg Normal 26.0-34.0 [facility] Comment on above: Order Comment: Speci men Type: BLOOD SPECIMENOrdering Facility: [facility] Address: [address] [place] [address] Performed By: #### 5 7021-8 ####[facility] [id number] [place] [address] [place] MCHC (RBC) [Mass/Vol] 32.9 g/dL Normal 30.5-36.0 [facility] Comment on above: Order Comment: Speci men Type: BLOOD SPECIMENOrdering Facility: [facility] Address: [address] [place] [address] Performed By: #### 5 7021-8 ####[facility] CENTERSTEFANIE [id number] [place] [address] [place] MCV (RBC) [Entitic vol] 91.8 fL Normal 80.0-100.0 C [facility] Comment on above: Order Comment: Speci men Type: BLOOD SPECIMENOrdering Facility: [facility] Address: [address] [place] [address] Performed By: #### 5 7021-8 ####[facility] [id number] [place] [address] [place] Monocytes (Bld) [#/Vol] 0.20 10*3/uL Normal <0.87 [facility] Comment on above: Order Comment: Speci men Type: BLOOD SPECIMENOrdering Facility: [facility] Address: [address] [place] [address] Performed By: #### 5 7021-8 ####[facility] CENTERMEHRENEСЕРГЕЙ [id number] [place] [address] [place] Monocytes/100 WBC (Bld) 5.2 % Normal C [facility] Comment on above: Order Comment: Speci men Type: BLOOD SPECIMENOrdering Facility: [facility] Address: [address] [place] [address] Performed By: #### 5 7021-8 ####[facility] [id number] [place] [address] [place] Neutrophils (Bld) [#/Vol] 2.65 10*3/uL Normal 1.45-7.50 [facility] Comment on above: Order Comment: Speci men Type: BLOOD SPECIMENOrdering Facility: [facility] Address: [address] [place] [address] Performed By: #### 5 7021-8 ####[facility] [id number] [place] [address] [place] Neutrophils/100 WBC (Bld) 69.0 % Normal [facility] Comment on above: Order Comment: Speci men Type: BLOOD SPECIMENOrdering Facility: [facility] Address: [address] [place] [address] Performed By: #### 5 7021-8 ####[facility] [id number] [place] [address] [place] Nucleated RBC (Bld) [#/Vol] 10*3/uL Normal <0.01 [facility] Comment on above: Order Comment: Speci men Type: BLOOD SPECIMENOrdering Facility: [facility] Address: [address] [place] [address] Performed By: #### 5 7021-8 ####[facility] [id number] [place] [address] [place] Nucleated RBC/100 WBC (Bld) [Ratio] 0.0 /100 WBC Normal [facility] Comment on above: Order Comment: Speci men Type: BLOOD SPECIMENOrdering Facility: [facility] Address: [address] [place] [address] Performed By: #### 5 7021-8 ####[facility] [id number] [place] [address] [place] Platelet mean volume (Bld) [Entitic vol] 11.0 fL Normal 9.0-12.7 [facility] Comment on above: Order Comment: Speci men Type: BLOOD SPECIMENOrdering Facility: [facility] Address: [address] [place] [address] Performed By: #### 5 7021-8 ####[facility] ANGELAA [id number] [place] [address] [place] Platelets (Bld) [#/Vol] 118 10*3/uL Low 150-400 [facility] Comment on above: Order Comment: Speci men Type: BLOOD SPECIMENOrdering Facility: [facility] Address: [address] [place] [address] Performed By: #### 5 7021-8 ####[facility] SUNNYDesiraeNCLIA [id number] [place] [address] [place] RBC (Bld) [#/Vol] 3.88 10*6/uL Low 3.90-5.20 [facility] Comment on above: Order Comment: Speci men Type: BLOOD SPECIMENOrdering Facility: [facility] Address: [address] [place] [address] Performed By: #### 5 7021-8 ####[facility]ENTERNCLIA [id number] [place] [address] [place] WBC (Bld) [#/Vol] 3.84 10*3/uL Normal 3.70-11.00 [facility] Comment on above: Order Comment: Speci men Type: BLOOD SPECIMENOrdering Facility: [facility] Address: [address] [place] [address] Performed By: #### 5 7021-8 ####[facility]ENTERNCLIA [id number] [place] [address] [facility] [place] Comprehensive metabolic 2000 panelon 02-17-2025 Albumin [Mass/Vol] 4.0 g/dL Normal 3.9-4.9 [facility] Comment on above: Order Comment: Speci men Type: BLOOD SPECIMENOrdering Facility: [facility] Address: [address] [place] [address] Performed By: #### 1 9123-9, 2532-0, 25553-1 ####[facility] TERESA TEOFILONCLIA [id number] [place] [address] [place] ALP [Catalytic activity/Vol] 47 U/L Normal 34-123 [facility] Comment on above: Order Comment: Speci men Type: BLOOD SPECIMENOrdering Facility: [facility] Address: [address] [place], [place] [address] Performed By: #### 1 9123-9, 2532-0, 81821-9 ####[facility] SUNNYEAST WORCESTERNCLIA [id number] [place] [address] [place] ALT [Catalytic activity/Vol] 21 U/L Normal 7-38 [facility] Comment on above: Order Comment: Speci men Type: BLOOD SPECIMENOrdering Facility: [facility] Address: [address] [place] [address] Performed By: #### 1 9123-9, 2-0, 19757-7 ####[facility]ENTERNCLIA [id number] [place] [address] [place] Anion gap [Moles/Vol] 13 mmol/L Normal 8-15 [facility] Comment on above: Order Comment: Speci men Type: BLOOD SPECIMENOrdering Facility: [facility] Address: [address] [place], [place] [address] Performed By: #### 1 9123-9, 2532-0, 57268-7 ####[facility]ENTERNCLIA [id number] [place] [address] [place] AST [Catalytic activity/Vol] 18 U/L Normal 13-35 [facility] Comment on above: Order Comment: Speci men Type: BLOOD SPECIMENOrdering Facility: [facility] Address: [address] [place] [address] Performed By: #### 1 9123-9, 2532-0, 31851-0 ####[facility] MILLTOWNCLIA [id number] [place] [address] [place] Bilirubin [Mass/Vol] 0.3 mg/dL Normal 0.2-1.3 [facility] Comment on above: Order Comment: Speci men Type: BLOOD SPECIMENOrdering Facility: [facility] Address: [address] [place], [place] [address] Performed By: #### 1 9123-9, 0, ####[facility]ENTERNCLIA [id number] [place] [address] [place] Calcium [Mass/Vol] 8.8 mg/dL Normal 8.5-10.2 [facility] Comment on above: Order Comment: Speci men Type: BLOOD SPECIMENOrdering Facility: [facility] Address: [address] [place], [place] [address] Performed By: #### 1 9123-9, 0, ####[facility]ALLIA [id number] [place] [address] [place] Chloride [Moles/Vol] 105 mmol/L Normal 98-107 [facility] Comment on above: Order Comment: Speci men Type: BLOOD SPECIMENOrdering Facility: [facility] Address: [address] [place] [address] Performed By: #### 1 9123-9, 0, ####[facility]ENTERNCLIA [id number] [place] [address] [place] CO2 [Moles/Vol] 24 mmol/L Normal 22-30 [facility] Comment on above: Order Comment: Speci men Type: BLOOD SPECIMENOrdering Facility: [facility] Address: [address] [place] [address] Performed By: #### 1 9123-9, 0, ####[facility]ENTERNCLIA [id number] [place] [address] [place] Creatinine [Mass/Vol] 0.81 mg/dL Normal 0.58-0.96 [facility] Comment on above: Order Comment: Caleb bradley Type: BLOOD SPECIMENOrdering Facility: [facility] Address: [address] [place] [address] Performed By: #### 1 9123-9, 0, ####[facility] [id number] [place] [address] [place] eGFRcr SerPlBld CKD-EPI 2020 70 mL/min/1.73m??? Normal >=60 [facility] Comment on above: Order Comment: Caleb bradley Type: BLOOD SPECIMENOrdering Facility: [facility] Address: [address] [place] [address] Result Comment: Lashonda mated Glomerular Filtration Rate (eGFR) is calculated using the 2020 CKD-EPI creatinine equation. This equation utilizes serum creatinine, sex, and age as parameters. The creatinine assay has traceable calibration to isotope dilution-mass spectrometry. Refer to KDIGO guidelines for clinical interpretation. In patients with unstable renal function, e.g. those with acute kidney injury, the eGFR may not accurately reflect actual GFR. Performed By: #### 1 9123-9, 0, ####[facility] [id number] [place] [address] [place] Glucose [Mass/Vol] 95 mg/dL Normal 74-99 [facility] Comment on above: Order Comment: Elvini men Type: BLOOD SPECIMENOrdering Facility: [facility] Address: [address] [place] [address] Result Comment: The [place] Diabetes Association (ADA) provides guidance for cutoff values for fasting glucose and random glucose. The ADA defines fasting as no caloric intake for at least 8 hours. Fasting plasma glucose results between 100 to 125 mg/dL indicate increased risk for diabetes (prediabetes).Fasting plasma glucose results greater than or equal to 126 mg/dL meet the criteria for diagnosis of diabetes. In the absence of unequivocal hyperglycemia, results should be confirmed by repeat testing. In a patient with classic symptoms of hyperglycemia or hyperglycemic crisis, random plasma glucose results greater than or equal to 200 mg/dL meet the criteria for diagnosis of diabetes.Reference: Standards of Medical Care in Diabetes 2016, [place] Diabetes Association. Diabetes Care. 2016.39(Suppl 1). Performed By: #### 1 9123-9, 2532-0, ####[facility] [id number] [place] [address] [place] Potassium [Moles/Vol] 4.1 mmol/L Normal 3.7-5.1 [facility] Comment on above: Order Comment: Speci men Type: BLOOD SPECIMENOrdering Facility: [facility] Address: [address] [place] [address] Performed By: #### 1 9123-9, 253-0, ####[facility] [id number] [place] [address] [place] Protein [Mass/Vol] 6.0 g/dL Low 6.3-8.0 [facility] Comment on above: Order Comment: Speci men Type: BLOOD SPECIMENOrdering Facility: [facility] Address: [address] [place] [address] Performed By: #### 1 9123-9, 253-0, ####[facility] [id number] [place] [address] [place] Sodium [Moles/Vol] 142 mmol/L Normal 136-144 [facility] Comment on above: Order Comment: Speci men Type: BLOOD SPECIMENOrdering Facility: [facility] Address: [address] [place] [address] Performed By: #### 1 9123-9, 253-0, 55385-0 ####[facility]ENTERNCLIA [id number] [place] [address] [place] Urea nitrogen [Mass/Vol] 15 mg/dL Normal 7-21 [facility] Comment on above: Order Comment: Caleb bradley Type: BLOOD SPECIMENOrdering Facility: [facility] Address: [address] [place] [address] Performed By: #### 1 9123-9, 2532-0, 18432-6 ####[facility] [id number] [place] [address] [place] HbA1c (Bld)on 02-17-2025 Average glucose Estimated from glycated hemoglobin (Bld) [Mass/Vol] 120 mg/dL Normal [facility] Comment on above: Order Comment: Caleb bradley Type: BLOOD SPECIMENOrdering Facility: [facility] Address: [address] [place] [address] Result Comment: eAG: (Estimated average glucose) is a calculated value from HgbA1c and is outreach representative of the average blood glucose level in the last 2-3 month period. Performed By: #### 5 5454-3 ####[facility] LABCLIA [id number] [place] [address] [place] HbA1c (Bld) [Mass fraction] 5.8 % High 4.3-5.6 [facility] Comment on above: Order Comment: Caleb bradley Type: BLOOD SPECIMENOrdering Facility: [facility] Address: [address] [place] [address] Result Comment: [place] Diabetes Association guidelines indicate that patients with HgbA1c in the range 5.7-6.4% are at increased risk for development of diabetes, and intervention by lifestyle modification may be beneficial. HgbA1c greater or equal to 6.5% is considered diagnostic of diabetes. Performed By: #### 5 5454-3 ####[facility] LABCLIA [id number] [place] [id number] [place] IMMUNOFIXATION SCREEN, SERUM on 02-17-2025 INTERPRETATION (MPA) Normal [facility] Comment on above: Order Comment: Caleb bradley Type: BLOOD SPECIMENOrdering Facility: [facility] Address: [address] [place] [address] Result Comment: Poor ly defined region of restricted mobility in the lambda alejandro. Pattern is less well defined or fainter than typically seen in monoclonal gammopathy. This could represent either an atypical presentation of polyclonal immunoglobulins or the presence of a low level lambda containing monoclonal gammopathy. If clinically indicated, urine monoclonal protein analysis and serum free light chain measurements are recommended to evaluate further for monoclonal gammopathy. Clinical correlation is necessary.There is an atypical restricted band present in the IgG and kappa regions. The location of the IgG kappa band suggests the presence of daratumumab, although one cannot rule out the possibility that this band represents a disease-related monoclonal protein. If clinically required, specific testing for daratumumab may be ordered to confirm the presence of the drug in this patient. Performed By: #### I FESC ####[facility] LABCLIA [id number] [place] [address] [place] MPA RESULT M protein is present. Abnormal No M p rotein is identified. [facility] Comment on above: Order Comment: Caleb bradley Type: BLOOD SPECIMENOrdering Facility: [facility] Address: [address] [place] [address] Performed By: #### I FESC ####[facility] LABCLIA [id number] [place] [id number] [place] STAFF REVIEW (MPA) Reviewed by Aleyda Rogel MD Normal [facility] Comment on above: Order Comment: Caleb bradley Type: BLOOD SPECIMENOrdering Facility: [facility] Address: [address] [place] [address] Performed By: #### I FESC ####[facility] LABCLIA [id number] [address] [address] [place] IMMUNOGLOBULINS,IGG,IGA,IGMo n 02-17-2025 IgA [Mass/Vol] 55 mg/dL Low 70-400 [facility] Comment on above: Order Comment: Speci men Type: BLOOD SPECIMENOrdering Facility: [facility] [facility] Address: [address] [place] [address] Performed By: #### S ERIMM ####[facility] LABCLIA [id number] [place] [address] [place] IgG [Mass/Vol] 604 mg/dL Low 700-1600 [facility] Comment on above: Order Comment: Speci men Type: BLOOD SPECIMENOrdering Facility: [facility] Address: [address] [place] [address] Performed By: #### S ERIMM ####[facility] LABCLIA [id number] [place] [address] [place] IgM [Mass/Vol] 29 mg/dL Low 40-230 [facility] Comment on above: Order Comment: Speci men Type: BLOOD SPECIMENOrdering Facility: [facility] Address: [address] [place] [address] Performed By: #### S ERIMM ####[facility] LABCLIA [id number] [place] [address] [place] KAPPA/MCINTOSH,FREE,SERon 2024 Immunoglobulin light chains.kappa.free (S) [Mass/Vol] 10.7 mg/L Normal 3.3-19.4 [facility] Comment on above: Order Comment: Speci men Type: BLOOD SPECIMENOrdering Facility: [facility] Address: [address] [place] [address] Result Comment: Rare ly, increased serum free light chains levels may not be detected or accurately quantified due to prozone phenomenon or in high viscosity samples using this immunoturbidimetric assay. Correlation with other laboratory results and clinical findings is recommended.The [place] Free Light Chain was performed using the Binding Site Optilite immunoturbidimetric method. Result obtained with different assay methods or kits cannot be used interchangeably. Performed By: #### K LFRS ####[facility] LABCLIA [id number] [place] [address] [place] Immunoglobulin light chains.kappa/Immunoglob ulin light chains.lambda (S) [Mass ratio] 0.76 Normal 0.26-1.65 [facility] Comment on above: Order Comment: Speci kirk Type: BLOOD SPECIMENOrdering Facility: [facility] Address: [address] [place] [address] Performed By: #### K LFRS ####[facility] LABIA [id number] [address] [place] Immunoglobulin light chains.lambda.free [Mass/Vol] 14.0 mg/L Normal 5.7-26.3 [facility] Comment on above: Order Comment: Caleb bradley Type: BLOOD SPECIMENOrdering Facility: [facility] Address: [address] [place] [address] Result Comment: Rare ly, increased serum free light chains levels may not be detected or accurately quantified due to prozone phenomenon or in high viscosity samples using this immunoturbidimetric assay. Correlation with other laboratory results and clinical findings is recommended.The [place] Free Light Chain was performed using the Binding Site Optilite immunoturbidimetric method. Result obtained with different assay methods or kits cannot be used interchangeably. Performed By: #### K LFRS ####[facility] LABIA [id number] [place] [address] [place] L[facility]-2025 LDH [Catalytic activity/Vol] 176 U/L Normal 135-214 [facility] Comment on above: Order Comment: Speci kirk Type: BLOOD SPECIMENOrdering Facility: [facility] Address: [address] [place] [address] Result Comment: Hemo lysis present. The origin of the hemolysis, in vitro versus an in vivo hemolytic process, cannot be distinguished via this assay alone. In vitro hemolysis may lead to non-physiological (spurious) elevation in lactate dehydrogenase (LDH) results. Theresult should be interpreted in context of the clinical setting and other test results. Suggest reorder as clinically indicated. Performed By: #### 1 9123-9, 2532-0, 56547-6 ####[facility] [id number] [place] [address] [place] LIPID PANEL, NONFASTINGon Cholesterol [Mass/Vol] 104 mg/dL Normal <200 [facility] Comment on above: Order Comment: Speci men Type: BLOOD SPECIMENOrdering Facility: [facility] Address: [address] [place] [address] Result Comment: <200 mg/dL, Desirable 200-239 mg/dL, Borderline high>239 mg/dL, High Performed By: #### 2 132-9, 2885-2, LIPBEATRIZ, 3016-3 ####[facility] LABCLIA [id number] [place] [address] [place] HDL CHOLESTEROL, NF 48 mg/dL Normal >39 [facility] Comment on above: Order Comment: Speci men Type: BLOOD SPECIMENOrdering Facility: [facility] Address: [address] [place] [address] Result Comment: 40-5 9 mg/dL, Acceptable>59 mg/dL, High: Negative risk factor for coronary heart disease<40 mg/dL, Low: Positive risk factor for coronary heart disease Performed By: #### 2 132-9, 2885-2, LIPBEATRIZ, 3016-3 ####[facility] LABCLIA [id number] [place] [address] [place] LDL CHOLESTEROL CALCULATED, NF 42 mg/dL Normal <100 [facility] Comment on above: Order Comment: Speci men Type: BLOOD SPECIMENOrdering Facility: [facility] Address: [address] [place] [address] Result Comment: <100 mg/dL, Optimal 100-129 mg/dL, Near optimal/above optimal 130-159 mg/dL, Borderline high 160-189 mg/dL, High>189 mg/dL, Very highSecondary prevention optimal LDL Cholesterol levels are recommended to be <70 mg/dLLDL cholesterol is calculated using the Mendiola-NIH equation. Performed By: #### 2 132-9, 2885-2, LIPNF, 6-3 ####[facility] LABCLIA [id number] [facility] [id number] [place] [address] [facility] LDL/HDL RATIO, NF 0.88 mg/dL Normal <2.54 [facility] Comment on above: Order Comment: Speci men Type: BLOOD SPECIMENOrdering Facility: [facility] Address: [address] [place] [address] Result Comment: Refe rence:1. National Cholesterol Education Program ATP III Guideline At-A-Glance Quick Desk Reference: National Heart, Lung, and Blood [place]. National Institutes of Health. 2001: NIH Publication No. 01-3305.2. An International Atherosclerosis Society position paper: global recommendations for the management of dyslipidemia: executive summary, Atherosclerosis. 2014: 232(2):410-413. Performed By: #### 2 132-9, 2885-2, LIPNF, 3015-3 ####[facility] LABCLIA [id number] [address] NON HDL CHOL, NF 56 mg/dL Normal <130 [facility] Comment on above: Order Comment: Speci men Type: BLOOD SPECIMENOrdering Facility: [facility] Address: [address] [place] [address] Result Comment: <130 mg/dL, Optimal 130-159 mg/dL, Near optimal/above optimal 160-189 mg/dL, Borderline high 190-219 mg/dL, High>219 mg/dL, Very highSecondary prevention optimal non HDL Cholesterol levels are recommended to be <100 mg/dL Performed By: #### 2 132-9, 2885-2, LIPNF, 3016-3 ####[facility] LABCLIA [id number] [place] [id number] [facility] T CHOL/HDL RATIO NF 2.17 mg/dL Normal <5.10 [facility] Comment on above: Order Comment: Speci men Type: BLOOD SPECIMENOrdering Facility: [facility] Address: [address] [place] [address] Performed By: #### 2 132-9, 2885-2, LIPNF, 3016-3 ####[facility] LABCLIA [id number] [address] [address] [place] TRIGLYCERIDES, NF 61 mg/dL Normal <150 [facility] Comment on above: Order Comment: Speci men Type: BLOOD SPECIMENOrdering Facility: [facility] Address: [address] [place] [address] Result Comment: <150 mg/dL, Normal 150-199 mg/dL, Borderline high 200-499 mg/dL, High>499 mg/dL, Very high Performed By: #### 2 132-9, 2885-2, LIPNF, 6-3 ####[facility] LABCLIA [id number] [place] [address] [place] VLDL CHOLESTEROL, NF 8 mg/dL Normal <30 [facility] Comment on above: Order Comment: Speci men Type: BLOOD SPECIMENOrdering Facility: [facility] Address: [address] [place] [address] Performed By: #### 2 132-9, 2885-2, LIPNF, 6-3 ####[facility] LABCLIA [id number] [place] [address] [place] MONOCLONAL PROT UR W/INTERPo n 02-17-2025 INTERPRETATION ([facility]) Normal [facility] Comment on above: Order Comment: Speci men Type: URINE SPECIMENOrdering Facility: [facility] Address: [address] [place] [address] Performed By: #### U [facility] ####[facility] LABCLIA [id number] [address] [place] STAFF REVIEW ([facility]) Reviewed by Aleyda Rogel MD Normal [facility] Comment on above: Order Comment: Speci men Type: URINE SPECIMENOrdering Facility: [facility] Address: [address] [place] [address] Performed By: #### U RMPA ####[facility] LABIA [id number] [place] [address] [place] UMPA RESULT A poorly defined reg ion of restricted mobility is present that may represent an M protein. Abnormal No M protein is identified. [facility] Comment on above: Order Comment: Speci men Type: URINE SPECIMENOrdering Facility: [facility] Address: [address] [place] [address] Performed By: #### U RMPA ####[facility] LABIA [id number] [place] [address] [place] Magnesium SerPl-mCncon 02-17 Magnesium [Mass/Vol] 1.9 mg/dL Normal 1.7-2.3 [facility] Comment on above: Order Comment: Speci men Type: BLOOD SPECIMENOrdering Facility: [facility] Address: [address] [place] [address] Performed By: #### 1 9123-9, 2532-0, 46351-7 ####[facility] [id number] [place] [address] [place] PROTEIN ELECTROPHORESIS SERU M (P)on 02-17-2025 Albumin [Mass/Vol] 3.84 g/dL Normal 3.43-5.41 [facility] Comment on above: Order Comment: Speci men Type: BLOOD SPECIMENOrdering Facility: [facility] Address: [address] [place] [address] Performed By: #### L [id number] ####[facility] [id number] [place] [address] [place] Alpha 1 globulin Elph [Mass/Vol] 0.28 g/dL Normal 0.18-0.43 [facility] Comment on above: Order Comment: Speci men Type: BLOOD SPECIMENOrdering Facility: [facility] Address: [address] [place] [address] Performed By: #### L [id number] ####[facility] LABCLIA [id number] [place] [address] [place] Alpha 2 globulin Elph [Mass/Vol] 0.56 g/dL Normal 0.42-0.98 [facility] Comment on above: Order Comment: Speci men Type: BLOOD SPECIMENOrdering Facility: [facility] Address: [address] [place] [address] Performed By: #### L [id number] ####[facility] LABIA [id number] [place] [id number] [place] Beta globulin Elph [Mass/Vol] 0.50 g/dL Low 0.61-1.17 [facility] Comment on above: Order Comment: Speci men Type: BLOOD SPECIMENOrdering Facility: [facility] Address: [address] [place] [address] Performed By: #### L [id number] ####[facility] LABIA [id number] [place] [address] [place] Gamma globulin Elph [Mass/Vol] 0.51 g/dL Low 0.53-1.51 [facility] Comment on above: Order Comment: Speci men Type: BLOOD SPECIMENOrdering Facility: [facility] Address: [address] [place] [address] Performed By: #### L [id number] ####[facility] LABCLIA [id number] [address] [address] [place] INTERPRETATION COMMENT FOR PROTEIN ELECTROPHORESIS See separate immunofixation report for characterization of monoclonal gammopathy. Normal [facility] Comment on above: Order Comment: Speci men Type: BLOOD SPECIMENOrdering Facility: [facility] Address: [address] [place] [address] Performed By: #### L [id number] ####[facility] LABIA [id number] [place] [id number] [place] M-PROTEIN LOCATION Gamma Fraction 1 Normal [facility] Comment on above: Order Comment: Speci men Type: BLOOD SPECIMENOrdering Facility: [facility] Address: [address] [place] [address] Performed By: #### L [id number] ####[facility] LABCLIA [id number] [place] [address] [place] Protein Fractions [Interp] An M protein is identified on protein electrophoresis. Abnormal No definitive M protein is identified on protein electrophore sis. [facility] Comment on above: Order Comment: Speci men Type: BLOOD SPECIMENOrdering Facility: [facility] Address: [address] [place] [address] Performed By: #### L [id number] ####[facility] LABCLIA [id number] [place] [address] [place] Protein.monoclonal Elph [Mass/Vol] 0.23 g/dL High <=0.00 [facility] Comment on above: Order Comment: Speci men Type: BLOOD SPECIMENOrdering Facility: [facility] Address: [address] [place] [address] Performed By: #### L [id number] ####[facility] LABCLIA [id number] [place] [address] [place] SPE STAFF REVIEW Reviewed by Aleyda Rogel MD Normal [facility] Comment on above: Order Comment: Speci men Type: BLOOD SPECIMENOrdering Facility: [facility] Address: [address] [place] [address] Performed By: #### L [id number] ####[facility] LABCLIA [id number] [place] [address] [place] Prot SerPl-mCncon 02-17-2025 Protein [Mass/Vol] 5.7 g/dL Low 6.3-8.0 [facility] Comment on above: Order Comment: Speci men Type: BLOOD SPECIMENOrdering Facility: [facility] Address: [address] [place] [address] Performed By: #### 2 132-9, 2885-2, LIPNF, 3016-3 ####[facility] LABIA [id number] [place] [id number] [place] Prot Ur-mCncon 02-17-2025 Protein (U) [Mass/Vol] mg/dL Normal 0-20 [facility] Comment on above: Order Comment: Speci men Type: URINE SPECIMENOrdering Facility: [facility] Address: [address] [place] [address] Performed By: #### 2 888-6 ####[facility] LABIA [id number] [place] [id number] [place] TSH SerPl-aCncon 02-17-2025 TSH Qn 1.760 m[IU]/L Normal 0.270-4.200 [facility] Comment on above: Order Comment: Speci men Type: BLOOD SPECIMENOrdering Facility: [facility] Address: [address] [place] [address] Performed By: #### 2 132-9, 2885-2, LIPNF, 3016-3 ####[facility] LABIA [id number] [place] [address] [place] URINE PROTEIN ELECTROPHORESI S RANDOM (P)on 02-17-2025 Albumin Elph (U) [Mass fraction] 37.09 % Normal [facility] Comment on above: Order Comment: Speci men Type: URINE SPECIMENOrdering Facility: [facility] Address: [address] [place] [address] Performed By: #### L [id number] ####[facility] LABIA [id number] [place] [id number] [place] Alpha 1 globulin Elph (U) [Mass fraction] 6.16 % Normal [facility] Comment on above: Order Comment: Speci men Type: URINE SPECIMENOrdering Facility: [facility] Address: [address] [place] [address] Performed By: #### L [id number] ####[facility] LABCLIA [id number] [place] [id number] [place] Alpha 2 globulin Elph (U) [Mass fraction] 13.61 % Normal [facility] Comment on above: Order Comment: Speci men Type: URINE SPECIMENOrdering Facility: [facility] Address: [address] [place] [address] Performed By: #### L [id number] ####[facility] LABCLIA [id number] [address] [place] Beta globulin Elph (U) [Mass fraction] 36.70 % Normal [facility] Comment on above: Order Comment: Speci men Type: URINE SPECIMENOrdering Facility: [facility] Address: [address] [place] [address] Performed By: #### L [id number] ####[facility] LABCLIA [id number] [place] [address] [place] Gamma globulin Elph (U) [Mass fraction] 6.44 % Normal [facility] Comment on above: Order Comment: Speci men Type: URINE SPECIMENOrdering Facility: [facility] Address: [address] [place] [address] Performed By: #### L [id number] ####[facility] LABCLIA [id number] [address] [place] [address] [place] INTERPRETATION COMMENT FOR PROTEIN ELECTROPHORESIS Normal [facility] Comment on above: Order Comment: Speci men Type: URINE SPECIMENOrdering Facility: [facility] Address: [address] [place] [address] Performed By: #### L [id number] ####[facility] LABCLIA [id number] [place] [id number] [place] Protein Fractions Elph Curt (U) [Interp] An atypical region of restricted mobility is identified on protein electrophoresis. Abnormal No definitive M protein is identified on protein electrophore sis. [facility] Comment on above: Order Comment: Speci men Type: URINE SPECIMENOrdering Facility: [facility] Address: [address] [place] [address] Performed By: #### L [id number] ####[facility] LABCLIA [id number] [address] [place] [address] [facility] STAFF REVIEW (URINE ELECTRO) Reviewed by Aleyda Rogel MD Normal [facility] Comment on above: Order Comment: Speci men Type: URINE SPECIMENOrdering Facility: [facility] Address: [address] [place] [address] Performed By: #### L [id number] ####[facility] LABCLIA [id number] [address] [place] [address] [place] Urinalysis complete panel (U )on 02-17-2025 Bacteria LM.HPF (Urine sed) [#/Area] Negative Normal Negative [facility] Comment on above: Order Comment: Speci men Type: URINE SPECIMENOrdering Facility: [facility] Address: [address] [place] [address] Performed By: #### 2 4356-8 ####[facility] LABCLIA [id number] [address] [place] [address] [place] Bilirubin Ql (U) Negative Normal Negative [facility] Comment on above: Order Comment: Speci men Type: URINE SPECIMENOrdering Facility: [facility] Address: [address] [place] [address] Performed By: #### 2 4356-8 ####[facility] LABIA [id number] [address] [address] [place] Clarity (Unsp spec) Clear Normal Clear [facility] Comment on above: Order Comment: Speci men Type: URINE SPECIMENOrdering Facility: [facility] Address: [address] [place] [address] Performed By: #### 2 4356-8 ####[facility] LABCLIA [id number] [place] [address] [place] Color (U) Yellow Normal Yellow [facility] Comment on above: Order Comment: Speci men Type: URINE SPECIMENOrdering Facility: [facility] Address: [address] [place] [address] Performed By: #### 2 4356-8 ####[facility] LABCLIA [id number] [address] STATES [facility] Epithelial cells LM.HPF (Urine sed) [#/Area] None Seen Normal [facility] Comment on above: Order Comment: Speci men Type: URINE SPECIMENOrdering Facility: [facility] Address: [address] [place] [address] Performed By: #### 2 4356-8 ####[facility] LABCLIA [id number] [address] STATES OF [facility] Glucose Test strip (U) [Mass/Vol] Negative Normal Negative [facility] Comment on above: Order Comment: Speci men Type: URINE SPECIMENOrdering Facility: [facility] Address: [address] [place] [address] Performed By: #### 2 4356-8 ####[facility] LABCLIA [id number] [place] [address] [place] Hemoglobin Ql (U) Negative Normal Negative [facility] Comment on above: Order Comment: Speci men Type: URINE SPECIMENOrdering Facility: [facility] Address: [address] [place] [address] Performed By: #### 2 4356-8 ####[facility] LABCLIA [id number] [place] [address] [place] Hyaline casts (Urine sed) [#/Area] 1-3 /LPF Abnormal 0 /LPF [facility] Comment on above: Order Comment: Speci men Type: URINE SPECIMENOrdering Facility: [facility] Address: [address] [place] [address] Performed By: #### 2 4356-8 ####[facility] LABCLIA [id number] [facility] [address] [place] [address] [place] Ketones Ql (U) Negative Normal Negative [facility] Comment on above: Order Comment: Speci men Type: URINE SPECIMENOrdering Facility: [facility] Address: [address] [place] [address] Performed By: #### 2 4356-8 ####[facility] LABCLIA [id number] [place] [address] [place] Leukocyte esterase Test strip Ql (U) Negative Normal Negative [facility] Comment on above: Order Comment: Speci men Type: URINE SPECIMENOrdering Facility: [facility] Address: [address] [place] [address] Performed By: #### 2 4356-8 ####[facility] LABCLIA [id number] [address], [place] [address] [place] Nitrite Ql (U) Negative Normal Negative [facility] Comment on above: Order Comment: Speci men Type: URINE SPECIMENOrdering Facility: [facility] Address: [address] [place] [address] Performed By: #### 2 4356-8 ####[facility] LABCLIA [id number] [place] [id number] [place] pH (U) 6.5 [pH] Normal 5.0-8.0 [facility] Comment on above: Order Comment: Speci men Type: URINE SPECIMENOrdering Facility: [facility] Address: [address] [place] [address] Performed By: #### 2 4356-8 ####[facility] LABCLIA [id number] [address], [facility] [place] Protein (U) [Mass/Vol] Negative Normal Negative Cl [facility] Comment on above: Order Comment: Speci men Type: URINE SPECIMENOrdering Facility: [facility] Address: [address] [place] [address] Performed By: #### 2 4356-8 ####[facility] [id number] [place] [address] [place] RBC LM.HPF (Urine sed) [#/Area] 0-2 /HPF Normal 0-2 /HPF [facility] Comment on above: Order Comment: Speci men Type: URINE SPECIMENOrdering Facility: [facility] Address: [address] [place] [address] Performed By: #### 2 4356-8 ####[facility] [id number] [place] [address] [place] Specific gravity (U) [Rel density] 1.006 Normal 1.005-1.030 [facility] Comment on above: Order Comment: Speci men Type: URINE SPECIMENOrdering Facility: [facility] Address: [address] [place] [address] Performed By: #### 2 4356-8 ####[facility] [id number] [address] [place] Urobilinogen Ql (U) 0.2 EU/dL Normal 0.2-1.0 EU/dL [facility] Comment on above: Order Comment: Speci men Type: URINE SPECIMENOrdering Facility: [facility] Address: [address] [place] [address] Performed By: #### 2 4356-8 ####[facility] [id number] [place] [address] [place] WBC LM.HPF (Urine sed) [#/Area] 0-5 /HPF Normal 0-5 /HPF [facility] Comment on above: Order Comment: Speci men Type: URINE SPECIMENOrdering Facility: [facility] Address: [address] [place] [address] Performed By: #### 2 4356-8 ####[facility] LABCLIA [id number] [place] [address] [place] Vit B12 SerPl-mCncon 28-2 025 Cobalamin (Vitamin B12) [Mass/Vol] 1135 pg/mL Normal 232-1245 [facility] Comment on above: Order Comment: Speci men Type: BLOOD SPECIMENOrdering Facility: [facility] Address: [address] [place] [address] Performed By: #### 2 132-9, 2885-2, LIPNF, 3016-3 ####[facility] LABCLIA [id number] [place] [address] [place] CNPNon 01-29-2025 CNPN Normal [facility] US DVT LOWER RTon 01-27-2025 US DVT LOWER RT * * *Final Report* * * DATE OF EXAM: Jan 27 2025 5:37PM MDU 1007 - US DVT LOWER RT / PROCEDURE REASON: multiple diagnoses * * * * Physician Interpretation * * * * RIGHT LOWER EXTREMITY DEEP VENOUS DUPLEX DOPPLER ULTRASOUND CLINICAL HISTORY: Right leg swelling 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 TECHNIQUE: Grayscale with compression maneuvers, color Doppler and spectral Doppler at rest and with augmentation of the right distal external iliac, common femoral, femoral and popliteal veins was performed. Grayscale with compression maneuvers of the peroneal and posterior tibial veins was performed. The right great and small saphenous veins were also imaged in grayscale with compression maneuvers at their insertion to the deep system. The contralateral common femoral vein was imaged for comparison. Images were obtained and stored in a permanent archive. MQ: USLER_1 RESULT: RIGHT LOWER EXTREMITY PROXIMAL DEEP VEINS: Distal External Iliac and Common Femoral Veins: Compression: Normal Doppler: Normal, spontaneous respirophasic flow. Normal response to augmentation. Femoral vein: Compression: Normal Doppler: Normal, spontaneous flow. Normal response to augmentation. Popliteal vein: Compression: Normal Doppler: Normal, spontaneous flow. Normal response to augmentation. CALF DEEP VEINS Peroneal veins: Not identified. Posterior tibial veins: Not identified. SUPERFICIAL VEINS Great saphenous: Patent and compressible at insertion into common femoral vein; not otherwise assessed. Small Saphenous: Patent and compressible in the proximal calf, not otherwise assessed. 6.1 cm mildly complex cystic structure in the right popliteal fossa commonly represents a popliteal cyst though this examination is not diagnostic for this entity. LEFT LOWER EXTREMITY (FOR COMPARISON) Common Femoral Vein: Compression: Normal Doppler: Normal, spontaneous respirophasic flow. Normal response to augmentation. IMPRESSION: Negative study for acute proximal DVT in the right lower extremity. Nondiagnostic study for acute calf DVT in the right lower extremity. Negative study for acute superficial thrombophlebitis in the imaged segments of the right lower extremity. 6.1 cm mildly complex cystic structure in the right popliteal fossa commonly represents a popliteal cyst though this examination is not diagnostic for this entity. Policy Director: LIBERTY Transcribe Date/Time: Jan 29 2025 7:26P Dictated by : ROYAL LANG MD This examination was interpreted and the report reviewed and electronically signed by: ROYAL LANG MD on Jan 29 2025 7:27PM EST [id number] Normal [facility] CNOVSPon 01-23-2025 CNOVSP Normal [facility] CBC W Auto Differential pane l (Bld)on 01-20-2025 Basophils (Bld) [#/Vol] 0.03 10*3/uL Normal <0.11 [facility] Comment on above: Order Comment: Speci men Type: BLOOD SPECIMENOrdering Facility: [facility] Address: [address] [place] [address] Performed By: #### 5 7021-8 ####[facility] LABCLIA [id number] [facility] [id number] [place] [address] [place] Basophils/100 WBC (Bld) 0.8 % Normal C [facility] Comment on above: Order Comment: Speci men Type: BLOOD SPECIMENOrdering Facility: [facility] Address: [address] [place] [address] Performed By: #### 5 7021-8 ####[facility] LABCLIA [id number] [place] [address] [place] Differential cell count method Nom (Bld) Auto Normal [facility] Comment on above: Order Comment: Speci men Type: BLOOD SPECIMENOrdering Facility: [facility] Address: [address] [place] [address] Performed By: #### 5 7021-8 ####[facility] LABCLIA [id number] [place] [address] [place] Eosinophils (Bld) [#/Vol] 0.06 10*3/uL Normal <0.46 [facility] Comment on above: Order Comment: Speci men Type: BLOOD SPECIMENOrdering Facility: [facility] Address: [address] [place] [address] Performed By: #### 5 7021-8 ####[facility] LABCLIA [id number] [place] [address] [place] Eosinophils/100 WBC (Bld) 1.6 % Normal [facility] Comment on above: Order Comment: Speci men Type: BLOOD SPECIMENOrdering Facility: [facility] Address: [address] [place] [address] Performed By: #### 5 7021-8 ####[facility] LABCLIA [id number] [place] [address] [place] Erythrocyte distribution width (RBC) [Ratio] 15.2 % High 11.5-15.0 [facility] Comment on above: Order Comment: Speci men Type: BLOOD SPECIMENOrdering Facility: [facility] Address: [address] [place] [address] Performed By: #### 5 7021-8 ####[facility] LABCLIA [id number] [place] [address] [place] Hematocrit (Bld) [Volume fraction] 37.2 % Normal 36.0-46.0 [facility] Comment on above: Order Comment: Speci men Type: BLOOD SPECIMENOrdering Facility: [facility] Address: [address] [place] [address] Performed By: #### 5 7021-8 ####[facility] LABCLIA [id number] [place] [address] [place] Hemoglobin (Bld) [Mass/Vol] 11.9 g/dL Normal 11.5-15.5 [facility] Comment on above: Order Comment: Speci men Type: BLOOD SPECIMENOrdering Facility: [facility] Address: [address] [place] [address] Performed By: #### 5 7021-8 ####[facility] LABCLIA [id number] [place] [address] [place] Immature granulocytes (Bld) [#/Vol] 0.03 10*3/uL Normal <0.10 [facility] Comment on above: Order Comment: Speci men Type: BLOOD SPECIMENOrdering Facility: [facility] Address: [address] [place] [address] Performed By: #### 5 7021-8 ####[facility] LABCLIA [id number] [place] [address] [place] Immature granulocytes/100 WBC (Bld) 0.8 % Normal [facility] Comment on above: Order Comment: Speci men Type: BLOOD SPECIMENOrdering Facility: [facility] Address: [address] [place] [address] Performed By: #### 5 7021-8 ####[facility] LABCLIA [id number] [place] [address] [place] Lymphocytes (Bld) [#/Vol] 0.95 10*3/uL Low 1.00-4.00 [facility] Comment on above: Order Comment: Speci men Type: BLOOD SPECIMENOrdering Facility: [facility] Address: [address] [place] [address] Performed By: #### 5 7021-8 ####[facility] LABCLIA [id number] [place] [address] [place] Lymphocytes/100 WBC (Bld) 25.6 % Normal [facility] Comment on above: Order Comment: Speci men Type: BLOOD SPECIMENOrdering Facility: [facility] Address: [address] [place] [address] Performed By: #### 5 7021-8 ####[facility] LABIA [id number] [place] [address] [place] MCH (RBC) [Entitic mass] 29.4 pg Normal 26.0-34.0 [facility] Comment on above: Order Comment: Speci men Type: BLOOD SPECIMENOrdering Facility: [facility] Address: [address] [place] [address] Performed By: #### 5 7021-8 ####[facility] LABIA [id number] [place] [address] [place] MCHC (RBC) [Mass/Vol] 32.0 g/dL Normal 30.5-36.0 [facility] Comment on above: Order Comment: Speci men Type: BLOOD SPECIMENOrdering Facility: [facility] Address: [address] [place] [address] Performed By: #### 5 7021-8 ####[facility] LABIA [id number] [place] [address] [place] MCV (RBC) [Entitic vol] 91.9 fL Normal 80.0-100.0 C [facility] Comment on above: Order Comment: Speci men Type: BLOOD SPECIMENOrdering Facility: [facility] Address: [address] [place] [address] Performed By: #### 5 7021-8 ####[facility] LABIA [id number] [place] [address] [place] Monocytes (Bld) [#/Vol] 0.21 10*3/uL Normal <0.87 [facility] Comment on above: Order Comment: Speci men Type: BLOOD SPECIMENOrdering Facility: [facility] Address: [address] [place] [address] Performed By: #### 5 7021-8 ####[facility] LABCLIA [id number] [address] [address] [place] Monocytes/100 WBC (Bld) 5.7 % Normal [facility] Comment on above: Order Comment: Speci men Type: BLOOD SPECIMENOrdering Facility: [facility] Address: [address] [place] [address] Performed By: #### 5 7021-8 ####[facility] LABCLIA [id number] [place] [address] [place] Neutrophils (Bld) [#/Vol] 2.43 10*3/uL Normal 1.45-7.50 [facility] Comment on above: Order Comment: Speci men Type: BLOOD SPECIMENOrdering Facility: [facility] Address: [address] [place] [address] Performed By: #### 5 7021-8 ####[facility] LABCLIA [id number] [place] [id number] [place] Neutrophils/100 WBC (Bld) 65.5 % Normal [facility] Comment on above: Order Comment: Speci men Type: BLOOD SPECIMENOrdering Facility: [facility] Address: [address] [place] [address] Performed By: #### 5 7021-8 ####[facility] LABCLIA [id number] [address] [address] [place] Nucleated RBC (Bld) [#/Vol] 10*3/uL Normal <0.01 [facility] Comment on above: Order Comment: Speci men Type: BLOOD SPECIMENOrdering Facility: [facility] Address: [address] [place], [place] [address] Performed By: #### 5 7021-8 ####[facility] LABCLIA [id number] [place] [address] [place] Nucleated RBC/100 WBC (Bld) [Ratio] 0.0 /100 WBC Normal [facility] Comment on above: Order Comment: Speci men Type: BLOOD SPECIMENOrdering Facility: [facility] Address: [address] [place] [address] Performed By: #### 5 7021-8 ####[facility] LABCLIA [id number] [place] [address] [place] Platelet mean volume (Bld) [Entitic vol] 12.1 fL Normal 9.0-12.7 [facility] Comment on above: Order Comment: Speci men Type: BLOOD SPECIMENOrdering Facility: [facility] Address: [address] [place] [address] Performed By: #### 5 7021-8 ####[facility] LABIA [id number] [place] [address] [place] Platelets (Bld) [#/Vol] 116 10*3/uL Low 150-400 [facility] Comment on above: Order Comment: Speci men Type: BLOOD SPECIMENOrdering Facility: [facility] Address: [address] [place] [address] Performed By: #### 5 7021-8 ####[facility] LABIA [id number] [place] [address] [place] RBC (Bld) [#/Vol] 4.05 10*6/uL Normal 3.90-5.20 [facility] Comment on above: Order Comment: Speci men Type: BLOOD SPECIMENOrdering Facility: [facility] Address: [address] [place] [address] Performed By: #### 5 7021-8 ####[facility] LABCLIA [id number] [place] [address] [place] WBC (Bld) [#/Vol] 3.71 10*3/uL Normal 3.70-11.00 [facility] Comment on above: Order Comment: Speci men Type: BLOOD SPECIMENOrdering Facility: [facility] Address: [address] [place] [address] Performed By: #### 5 7021-8 ####[facility] LABCLIA [id number] [place] [address] [place] [facility] Comprehensive metabolic 2000 panelon 01-20-2025 Albumin [Mass/Vol] 4.0 g/dL Normal 3.9-4.9 [facility] Comment on above: Order Comment: Speci men Type: BLOOD SPECIMENOrdering Facility: [facility] Address: [address] [place] [address] Performed By: #### 2 4323-8 ####[facility] LABCLIA [id number] [place] [address] [place] ALP [Catalytic activity/Vol] 38 U/L Normal 34-123 [facility] Comment on above: Order Comment: Speci men Type: BLOOD SPECIMENOrdering Facility: [facility] Address: [address] [place] [address] Performed By: #### 2 4323-8 ####[facility] LABIA [id number] [place] [address] [place] ALT [Catalytic activity/Vol] 23 U/L Normal 7-38 [facility] Comment on above: Order Comment: Speci men Type: BLOOD SPECIMENOrdering Facility: [facility] Address: [address] [place] [address] Performed By: #### 2 4323-8 ####[facility] LABIA [id number] [place] [id number] [place] Anion gap [Moles/Vol] 10 mmol/L Normal 8-15 [facility] Comment on above: Order Comment: Speci men Type: BLOOD SPECIMENOrdering Facility: [facility] Address: [address] [place] [address] Performed By: #### 2 4323-8 ####[facility] LABCLIA [id number] [place] [id number] [place] AST [Catalytic activity/Vol] 19 U/L Normal 13-35 [facility] Comment on above: Order Comment: Speci men Type: BLOOD SPECIMENOrdering Facility: [facility] Address: [address] [place] [address] Performed By: #### 2 4323-8 ####[facility] LABCLIA [id number] [place] [id number] [place] Bilirubin [Mass/Vol] 0.4 mg/dL Normal 0.2-1.3 [facility] Comment on above: Order Comment: Speci men Type: BLOOD SPECIMENOrdering Facility: [facility] Address: [address] [place] [address] Performed By: #### 2 4323-8 ####[facility] LABCLIA [id number] [place] [address] [place] Calcium [Mass/Vol] 9.0 mg/dL Normal 8.5-10.2 [facility] Comment on above: Order Comment: Speci men Type: BLOOD SPECIMENOrdering Facility: [facility] Address: [address] [place] [address] Performed By: #### 2 4323-8 ####[facility] LABCLIA [id number] [place] [address] [place] Chloride [Moles/Vol] 105 mmol/L Normal 98-107 [facility] Comment on above: Order Comment: Speci men Type: BLOOD SPECIMENOrdering Facility: [facility] Address: [address] [place] [address] Performed By: #### 2 4323-8 ####[facility] LABCLIA [id number] [place] [id number] [place] CO2 [Moles/Vol] 25 mmol/L Normal 22-30 [facility] Comment on above: Order Comment: Speci men Type: BLOOD SPECIMENOrdering Facility: [facility] Address: [address] [place] [address] Performed By: #### 2 4323-8 ####[facility] LABCLIA [id number] [facility] [address] [address] [place] Creatinine [Mass/Vol] 0.87 mg/dL Normal 0.58-0.96 [facility] Comment on above: Order Comment: Speci men Type: BLOOD SPECIMENOrdering Facility: [facility] Address: [address] [place] [address] Performed By: #### 2 4323-8 ####[facility] LABCLIA [id number] [place] [address] [place] Creatinine and Glomerular filtration rate.predicted panel (S/P/Bld) 65 mL/min/1.73m??? Normal >=60 [facility] Comment on above: Order Comment: Speci men Type: BLOOD SPECIMENOrdering Facility: [facility] Address: [address] [place] [address] Result Comment: Lashonda mated Glomerular Filtration Rate (eGFR) is calculated using the 2020 CKD-EPI creatinine equation. This equation utilizes serum creatinine, sex, and age as parameters. The creatinine assay has traceable calibration to isotope dilution-mass spectrometry. Refer to KDIGO guidelines for clinical interpretation. In patients with unstable renal function, e.g. those with acute kidney injury, the eGFR may not accurately reflect actual GFR. Performed By: #### 2 4323-8 ####[facility] LABCLIA [id number] [place] [id number] [place] Glucose [Mass/Vol] 93 mg/dL Normal 74-99 [facility] Comment on above: Order Comment: Speci men Type: BLOOD SPECIMENOrdering Facility: [facility] Address: [address] [place] [address] Result Comment: The [place] [employer] (ADA) provides guidance for cutoff values for fasting glucose and random glucose. The ADA defines fasting as no caloric intake for at least 8 hours. Fasting plasma glucose results between 100 to 125 mg/dL indicate increased risk for diabetes (prediabetes).Fasting plasma glucose results greater than or equal to 126 mg/dL meet the criteria for diagnosis of diabetes. In the absence of unequivocal hyperglycemia, results should be confirmed by repeat testing. In a patient with classic symptoms of hyperglycemia or hyperglycemic crisis, random plasma glucose results greater than or equal to 200 mg/dL meet the criteria for diagnosis of diabetes.Reference: Standards of Medical Care in Diabetes 2016, [place] [employer]. Diabetes Care. 2016.39(Suppl 1). Performed By: #### 2 4323-8 ####[facility] LABCLIA [id number] [place] [address] [place] Potassium [Moles/Vol] 4.4 mmol/L Normal 3.7-5.1 [facility] Comment on above: Order Comment: Speci men Type: BLOOD SPECIMENOrdering Facility: [facility] Address: [address] [place] [address] Performed By: #### 2 4323-8 ####[facility] LABCLIA [id number] [place] [address] [place] Protein [Mass/Vol] 6.0 g/dL Low 6.3-8.0 [facility] Comment on above: Order Comment: Speci men Type: BLOOD SPECIMENOrdering Facility: [facility] Address: [address] [place] [address] Performed By: #### 2 4323-8 ####[facility] LABCLIA [id number] [place] [id number] [place] Sodium [Moles/Vol] 140 mmol/L Normal 136-144 [facility] Comment on above: Order Comment: Speci men Type: BLOOD SPECIMENOrdering Facility: [facility] Address: [address] [place] [address] Performed By: #### 2 4323-8 ####[facility] LABCLIA [id number] [address] [address] [place] Urea nitrogen [Mass/Vol] 18 mg/dL Normal 7-21 [facility] Comment on above: Order Comment: Speci men Type: BLOOD SPECIMENOrdering Facility: [facility] Address: [address] [place] [address] Performed By: #### 2 4323-8 ####[facility] LABCLIA [id number] [address] IMMUNOFIXATION SCREEN, SERUM on 01-20-2025 INTERPRETATION (MPA) Normal [facility] Comment on above: Order Comment: Speci men Type: BLOOD SPECIMENOrdering Facility: [facility] Address: [address] [place] [address] Result Comment: Poor ly defined region of restricted mobility in IgG and kappa lanes. Pattern is less well defined or fainter than typically seen in monoclonal gammopathy. This could represent either an atypical presentation of polyclonal immunoglobulins or the presence of a low level IgG kappa monoclonal gammopathy. If clinically indicated, urine monoclonal protein analysis and serum free light chain measurements are recommended to evaluate further for monoclonal gammopathy. Clinical correlation is necessary.Poorly definded region of restricted mobility in IgG and lambda lanes. Pattern is less well defined or fainter than typically seen in monoclonal gammopathy. This could represent either an atypical presentation of polyclonal immunoglobulins or the presence of a low level IgG lambda monoclonal gammopathy. If clinically indicated, urine monoclonal protein analysis and serum free light chain measurements are recommended to evaluate further for monoclonal gammopathy. Clinical correlation is necessary. Performed By: #### I FESC ####[facility] LABCLIA [id number] [address] [address] [place] [facility] MPA RESULT A poorly defined reg ion of restricted mobility is present that may represent an M protein. Abnormal No M protein is identified. [facility] Comment on above: Order Comment: Elvini kirk Type: BLOOD SPECIMENOrdering Facility: [facility] Address: [address] [place] [address] Performed By: #### I FESC ####[facility] LABCLIA [id number] [place] [address] [place] STAFF REVIEW (MPA) Reviewed by Yesenia Wright M.D., Ph.D Normal [facility] Comment on above: Order Comment: Speci men Type: BLOOD SPECIMENOrdering Facility: [facility] Address: [address] [place] [address] Performed By: #### I FES ####[facility] LABCLIA [id number] [place] [address] [place] IMMUNOGLOBULINS,IGG,IGA,IGMo n 01-20-2025 IgA [Mass/Vol] 64 mg/dL Low 70-400 [facility] Comment on above: Order Comment: Speci men Type: BLOOD SPECIMENOrdering Facility: [facility] Address: [address] [place] [address] Performed By: #### S ERIMM ####[facility] LABCLIA [id number] [place] [address] [place] IgG [Mass/Vol] 653 mg/dL Low 700-1600 [facility] Comment on above: Order Comment: Speci men Type: BLOOD SPECIMENOrdering Facility: [facility] Address: [address] [place] [address] Performed By: #### S ERIMM ####[facility] LABCLIA [id number] [place] [address] [place] IgM [Mass/Vol] 30 mg/dL Low 40-230 [facility] Comment on above: Order Comment: Speci men Type: BLOOD SPECIMENOrdering Facility: [facility] Address: [address] [place] [address] Performed By: #### S ERIMM ####[facility] LABCLIA [id number] [place] [address] [place] KAPPA/MCINTOSH,FREE,SERon 2024 Immunoglobulin light chains.kappa.free (S) [Mass/Vol] 12.4 mg/L Normal 3.3-19.4 [facility] Comment on above: Order Comment: Speci men Type: BLOOD SPECIMENOrdering Facility: [facility] Address: [address] [place] [address] Result Comment: Rare ly, increased serum free light chains levels may not be detected or accurately quantified due to prozone phenomenon or in high viscosity samples using this immunoturbidimetric assay. Correlation with other laboratory results and clinical findings is recommended.The [place] Free Light Chain was performed using the Binding Site Optilite immunoturbidimetric method. Result obtained with different assay methods or kits cannot be used interchangeably. Performed By: #### K LFRS ####[facility] LABCLIA [id number] [place] [address] [place] Immunoglobulin light chains.kappa/Immunoglob ulin light chains.lambda (S) [Mass ratio] 0.87 Normal 0.26-1.65 [facility] Comment on above: Order Comment: Speci men Type: BLOOD SPECIMENOrdering Facility: [facility] Address: [address] [place] [address] Performed By: #### K LFRS ####[facility] LABCLIA [id number] [place] [address] [place] Immunoglobulin light chains.lambda.free [Mass/Vol] 14.2 mg/L Normal 5.7-26.3 [facility] Comment on above: Order Comment: Speci men Type: BLOOD SPECIMENOrdering Facility: [facility] Address: [address] [place] [address] Result Comment: Rare ly, increased serum free light chains levels may not be detected or accurately quantified due to prozone phenomenon or in high viscosity samples using this immunoturbidimetric assay. Correlation with other laboratory results and clinical findings is recommended.The Lambda Free Light Chain was performed using the Binding Site Optilite immunoturbidimetric method. Result obtained with different assay methods or kits cannot be used interchangeably. Performed By: #### K LFRS ####[facility] LABCLIA [id number] [id number] [place] [address] [place] PROTEIN ELECTROPHORESIS SERU M (P)on 01-20-2025 Albumin [Mass/Vol] 3.65 g/dL Normal 3.43-5.41 [facility] Comment on above: Order Comment: Speci men Type: BLOOD SPECIMENOrdering Facility: [facility] Address: [address] [place] [address] Performed By: #### L [id number] ####[facility] LABIA [id number] [place] [address] [place] Alpha 1 globulin Elph [Mass/Vol] 0.26 g/dL Normal 0.18-0.43 [facility] Comment on above: Order Comment: Speci men Type: BLOOD SPECIMENOrdering Facility: [facility] Address: [address] [place] [address] Performed By: #### L [id number] ####[facility] LABIA [id number] [place] [address] [place] Alpha 2 globulin Elph [Mass/Vol] 0.49 g/dL Normal 0.42-0.98 [facility] Comment on above: Order Comment: Speci men Type: BLOOD SPECIMENOrdering Facility: [facility] Address: [address] [place] [address] Performed By: #### L [id number] ####[facility] LABIA [id number] [place] [address] [place] Beta globulin Elph [Mass/Vol] 0.49 g/dL Low 0.61-1.17 [facility] Comment on above: Order Comment: Speci men Type: BLOOD SPECIMENOrdering Facility: [facility] Address: [address] [place] [address] Performed By: #### L [id number] ####[facility] LABIA [id number] [place] [id number] [place] Gamma globulin Elph [Mass/Vol] 0.50 g/dL Low 0.53-1.51 [facility] Comment on above: Order Comment: Speci men Type: BLOOD SPECIMENOrdering Facility: [facility] Address: [address] [place] [address] Performed By: #### L [id number] ####[facility] LABCLIA [id number] [address] [address] [place] INTERPRETATION COMMENT FOR PROTEIN ELECTROPHORESIS Normal [facility] Comment on above: Order Comment: Speci men Type: BLOOD SPECIMENOrdering Facility: [facility] Address: [address] [place] [address] Performed By: #### L [id number] ####[facility] LABCLIA [id number] [place] [address] [place] M-PROTEIN LOCATION Normal [facility] Comment on above: Order Comment: Speci men Type: BLOOD SPECIMENOrdering Facility: [facility] Address: [address] [place] [address] Result Comment: Not Applicable. Performed By: #### L [id number] ####[facility] LABCLIA [id number] [place] [address] [place] Protein Fractions [Interp] An atypical region of restricted mobility is identified on protein electrophoresis. Abnormal No definitive M protein is identified on protein electrophore sis. [facility] Comment on above: Order Comment: Speci men Type: BLOOD SPECIMENOrdering Facility: [facility] Address: [address] [place] [address] Performed By: #### L [id number] ####[facility] LABCLIA [id number] [place] [address] [place] Protein.monoclonal Elph [Mass/Vol] 0.00 g/dL Normal <=0.00 [facility] Comment on above: Order Comment: Speci men Type: BLOOD SPECIMENOrdering Facility: [facility] Address: [address] [place] [address] Performed By: #### L [id number] ####[facility] LABCLIA [id number] [place] [address] [place] SPE STAFF REVIEW Reviewed by Yesenia Wright M.D., Ph.D Normal [facility] Comment on above: Order Comment: Speci men Type: BLOOD SPECIMENOrdering Facility: [facility] Address: [address] [place] [address] Performed By: #### L [id number] ####[facility] [id number] [place] [address] [place] Prot SerPl-mCncon 01-20-2025 Protein [Mass/Vol] 5.4 g/dL Low 6.3-8.0 [facility] Comment on above: Order Comment: Speci men Type: BLOOD SPECIMENOrdering Facility: [facility] Address: [address] [place] [address] Performed By: #### 2 885-2 ####[facility] [id number] [place] [address] [place] CNOVSPon 12-25-2024 CNOVSP Normal [facility] XR BONE SURVEY ROUTINEon XR BONE SURVEY ROUTINE Normal [facility] XR Bones Complete Survey Vie wson 12-25-2024 IMPRESSION: Findings consistent with multiple myeloma as described. Policy Director: PSCJad Transcribe Date/Time: Dec 25 2024 12:40P Dictated by : ALMA JAIN MD This examination was interpreted and the report reviewed and electronically signed by: ALMA JAIN MD on Dec 25 2024 12:48PM [facility] DIVISION OF RADIOLOGY * * *Final Report* * * DATE OF EXAM: Dec 25 2024 12:25PM CAX 5304 - XR BONE SURVEY ROUTINE / PROCEDURE REASON: Multiple myeloma in remission (HCC) * * * * Physician Interpretation * * * * EXAMINATION: XR BONE SURVEY ROUTINE PATIENT/TECHNOLOGIST PROVIDED HISTORY: CLINICAL INFORMATION ( PROVIDED BY ORDERING CLINICIAN) : Multiple myeloma in remission (HCC) TECHNIQUE: XR BONE SURVEY ROUTINE COMPARISON: Whole-body CT 02/11/2023 RESULT: Expansile lucent lesion in the left medial clavicle with chronic cortical irregularity is noted. Surrounding sclerosis may reflect posttreatment changes. No lytic lesion in the posterior right ninth rib is poorly appreciated radiographically. No additional lytic lesion or suspicious sclerotic lesion. S-shaped scoliosis of the thoracolumbar spine with multilevel degenerative changes. No compression deformity is seen. Bilateral breast implants are present. No acute radiographic abnormality in the chest or abdomen. DIVISION OF RADIOLOGY Provider, Dianna Crys [facility] - 12/25/2024 * * *Final Report* * * DATE OF EXAM: Dec 25 2024 12:25PM CAX 5304 - XR BONE SURVEY ROUTINE / PROCEDURE REASON: Multiple myeloma in remission (HCC) * * * * Physician Interpretation * * * * EXAMINATION: XR BONE SURVEY ROUTINE PATIENT/TECHNOLOGIST PROVIDED HISTORY: CLINICAL INFORMATION ( PROVIDED BY ORDERING CLINICIAN) : Multiple myeloma in remission (HCC) TECHNIQUE: XR BONE SURVEY ROUTINE COMPARISON: Whole-body CT 02/11/2023 RESULT: Expansile lucent lesion in the left medial clavicle with chronic cortical irregularity is noted. Surrounding sclerosis may reflect posttreatment changes. No lytic lesion in the posterior right ninth rib is poorly appreciated radiographically. No additional lytic lesion or suspicious sclerotic lesion. S-shaped scoliosis of the thoracolumbar spine with multilevel degenerative changes. No compression deformity is seen. Bilateral breast implants are present. No acute radiographic abnormality in the chest or abdomen. IMPRESSION IMPRESSION: Findings consistent with multiple myeloma as described. Policy Director: [facility]PITALJad Transcribe Date/Time: Dec 25 2024 12:40P Dictated by : ALMA JAIN MD This examination was interpreted and the report reviewed and electronically signed by: ALMA JAIN MD on Dec 25 2024 12:48PM EST [facility] Radiology Study observation (narrative) [facility] XR Bones Complete Survey Vie wsOrdered By: Ccf Provider on 12-25-2024 [facility] CBC W Auto Differential pane l (Bld)on 12-20-2024 Basophils (Bld) [#/Vol] 0.04 10*3/uL Normal <0.11 [facility] Comment on above: Order Comment: Speci men Type: BLOOD SPECIMENOrdering Facility: [facility] Address: [address] [place] [address] Performed By: #### 5 7021-8 ####[facility] MILLWNCLIA [id number] [place] [address] [place] Basophils/100 WBC (Bld) 1.3 % Normal [facility] Comment on above: Order Comment: Speci men Type: BLOOD SPECIMENOrdering Facility: [facility] Address: [address] [place] [address] Performed By: #### 5 7021-8 ####[facility]ALLIA [id number] [place] [address] [place] Differential cell count method Nom (Bld) Auto Normal [facility] Comment on above: Order Comment: Speci men Type: BLOOD SPECIMENOrdering Facility: [facility] Address: [address] [place] [address] Performed By: #### 5 7021-8 ####[facility]ALLIA [id number] [place] [address] [place] Eosinophils (Bld) [#/Vol] 0.06 10*3/uL Normal <0.46 [facility] Comment on above: Order Comment: Speci men Type: BLOOD SPECIMENOrdering Facility: [facility] Address: [address] [place] [address] Performed By: #### 5 7021-8 ####[facility]ALL[facility] [id number] [place] [address] [place] Eosinophils/100 WBC (Bld) 2.0 % Normal [facility] Comment on above: Order Comment: Speci men Type: BLOOD SPECIMENOrdering Facility: [facility] Address: [address] [place] [address] Performed By: #### 5 7021-8 ####[facility]CL[facility] [id number] [place] [address] [place] Erythrocyte distribution width (RBC) [Ratio] 15.3 % High 11.5-15.0 [facility] Comment on above: Order Comment: Speci men Type: BLOOD SPECIMENOrdering Facility: [facility] Address: [address] [place] [address] Performed By: #### 5 7021-8 ####[facility] [id number] [place] [address] [place] Hematocrit (Bld) [Volume fraction] 36.0 % Normal 36.0-46.0 [facility] Comment on above: Order Comment: Speci men Type: BLOOD SPECIMENOrdering Facility: [facility] Address: [address] [place] [address] Performed By: #### 5 7021-8 ####[facility] [id number] [place] [address] [place] Hemoglobin (Bld) [Mass/Vol] 11.7 g/dL Normal 11.5-15.5 [facility] Comment on above: Order Comment: Speci men Type: BLOOD SPECIMENOrdering Facility: [facility] Address: [address] [place] [address] Performed By: #### 5 7021-8 ####[facility] [id number] [place] [address] [place] Immature granulocytes (Bld) [#/Vol] 10*3/uL Normal <0.10 [facility] Comment on above: Order Comment: Speci men Type: BLOOD SPECIMENOrdering Facility: [facility] Address: [address] [place] [address] Performed By: #### 5 7021-8 ####[facility] [id number] [place] [address] [place] Immature granulocytes/100 WBC (Bld) 0.3 % Normal [facility] Comment on above: Order Comment: Speci men Type: BLOOD SPECIMENOrdering Facility: [facility] Address: [address] [place] [address] Performed By: #### 5 7021-8 ####[facility] SUNNYEAST WORCESTERDANIELLAA [id number] [place] [address] [place] Lymphocytes (Bld) [#/Vol] 0.85 10*3/uL Low 1.00-4.00 [facility] Comment on above: Order Comment: Speci men Type: BLOOD SPECIMENOrdering Facility: [facility] Address: [address] [place] [address] Performed By: #### 5 7021-8 ####[facility] [id number] [place] [address] [place] Lymphocytes/100 WBC (Bld) 28.2 % Normal [facility] Comment on above: Order Comment: Speci men Type: BLOOD SPECIMENOrdering Facility: [facility] Address: [address] [place] [address] Performed By: #### 5 7021-8 ####[facility] [id number] [place] [address] [place] MCH (RBC) [Entitic mass] 29.8 pg Normal 26.0-34.0 [facility] Comment on above: Order Comment: Speci men Type: BLOOD SPECIMENOrdering Facility: [facility] Address: [address] [place] [address] Performed By: #### 5 7021-8 ####[facility]ERNCLIA [id number] [place] [address] [place] MCHC (RBC) [Mass/Vol] 32.5 g/dL Normal 30.5-36.0 [facility] Comment on above: Order Comment: Speci men Type: BLOOD SPECIMENOrdering Facility: [facility] Address: [address] [place] [address] Performed By: #### 5 7021-8 ####[facility] MILLWNCLIA [id number] [place] [address] [place] MCV (RBC) [Entitic vol] 91.8 fL Normal 80.0-100.0 C [facility] Comment on above: Order Comment: Speci men Type: BLOOD SPECIMENOrdering Facility: [facility] Address: [address] [place] [address] Performed By: #### 5 7021-8 ####[facility]ITALWNCLIA [id number] [place] [address] [place] Monocytes (Bld) [#/Vol] 0.46 10*3/uL Normal <0.87 [facility] Comment on above: Order Comment: Speci men Type: BLOOD SPECIMENOrdering Facility: [facility] Address: [address] [place] [address] Performed By: #### 5 7021-8 ####[facility]ITALLIA [id number] [place] [address] [place] Monocytes/100 WBC (Bld) 15.3 % Normal C [facility] Comment on above: Order Comment: Speci men Type: BLOOD SPECIMENOrdering Facility: [facility] Address: [address] [place] [address] Performed By: #### 5 7021-8 ####[facility] HOSPITALWNCLIA [id number] [place] [address] [place] Neutrophils (Bld) [#/Vol] 1.59 10*3/uL Normal 1.45-7.50 [facility] Comment on above: Order Comment: Speci men Type: BLOOD SPECIMENOrdering Facility: [facility] Address: [address] [place] [address] Performed By: #### 5 7021-8 ####[facility]ENTERNCLIA [id number] [place] [address] [place] Neutrophils/100 WBC (Bld) 52.9 % Normal [facility] Comment on above: Order Comment: Speci men Type: BLOOD SPECIMENOrdering Facility: [facility] Address: [address] [place] [address] Performed By: #### 5 7021-8 ####[facility] [id number] [place] [address] [place] Nucleated RBC (Bld) [#/Vol] 10*3/uL Normal <0.01 [facility] Comment on above: Order Comment: Speci men Type: BLOOD SPECIMENOrdering Facility: [facility] Address: [address] [place] [address] Performed By: #### 5 7021-8 ####[facility] [id number] [place] [address] [place] Nucleated RBC/100 WBC (Bld) [Ratio] 0.0 /100 WBC Normal [facility] Comment on above: Order Comment: Speci men Type: BLOOD SPECIMENOrdering Facility: [facility] Address: [address] [place] [address] Performed By: #### 5 7021-8 ####[facility] [id number] [place] [address] [place] Platelet mean volume (Bld) [Entitic vol] 11.3 fL Normal 9.0-12.7 [facility] Comment on above: Order Comment: Speci men Type: BLOOD SPECIMENOrdering Facility: [facility] Address: [address] [place] [address] Performed By: #### 5 7021-8 ####[facility] [id number] [place] [address] [place] Platelets (Bld) [#/Vol] 114 10*3/uL Low 150-400 [facility] Comment on above: Order Comment: Speci men Type: BLOOD SPECIMENOrdering Facility: [facility] Address: [address] [place] [address] Result Comment: No c lot detected. Performed By: #### 5 7021-8 ####[facility] SUNNYDesiraeNCPHILLIPA [id number] [place] [address] [place] RBC (Bld) [#/Vol] 3.92 10*6/uL Normal 3.90-5.20 [facility] Comment on above: Order Comment: Speci men Type: BLOOD SPECIMENOrdering Facility: [facility] Address: [address] [place] [address] Performed By: #### 5 7021-8 ####[facility] CENTERNCRoc [id number] [place] [address] [place] WBC (Bld) [#/Vol] 3.01 10*3/uL Low 3.70-11.00 [facility] Comment on above: Order Comment: Speci men Type: BLOOD SPECIMENOrdering Facility: [facility] Address: [address] [place] [address] Performed By: #### 5 7021-8 ####[facility]ENTERNCLIA [id number] [place] [address] [place] Comprehensive metabolic 2000 panelon 12-20-2024 Albumin [Mass/Vol] 4.1 g/dL Normal 3.9-4.9 [facility] Comment on above: Order Comment: Speci men Type: BLOOD SPECIMENOrdering Facility: [facility] Address: [address] [place] [address] Performed By: #### 2 4323-8 ####[facility]ENTERNCLIA [id number] [place] [address] [place] ALP [Catalytic activity/Vol] 38 U/L Normal 34-123 [facility] Comment on above: Order Comment: Speci men Type: BLOOD SPECIMENOrdering Facility: [facility] Address: [address] [place] [id number] Performed By: #### 2 4323-8 ####[facility] MILLWNCLIA [id number] [place] [address] [place] ALT [Catalytic activity/Vol] 23 U/L Normal 7-38 [facility] Comment on above: Order Comment: Speci men Type: BLOOD SPECIMENOrdering Facility: [facility] Address: [address] [place] [address] Performed By: #### 2 4323-8 ####[facility]ENTERNCLIA [id number] [place] [address] [place] Anion gap [Moles/Vol] 10 mmol/L Normal 8-15 [facility] Comment on above: Order Comment: Speci men Type: BLOOD SPECIMENOrdering Facility: [facility] Address: [address] [place] [address] Performed By: #### 2 4323-8 ####[facility]ERNCLIA [id number] [place] [address] [place] AST [Catalytic activity/Vol] 19 U/L Normal 13-35 [facility] Comment on above: Order Comment: Speci men Type: BLOOD SPECIMENOrdering Facility: [facility] Address: [address] [place] [address] Performed By: #### 2 4323-8 ####[facility]ERNCLIA [id number] [place] [address] [place] Bilirubin [Mass/Vol] 0.4 mg/dL Normal 0.2-1.3 [facility] Comment on above: Order Comment: Speci men Type: BLOOD SPECIMENOrdering Facility: [facility] Address: [address] [place] [address] Performed By: #### 2 4323-8 ####[facility]ERNCLIA [id number] [place] [address] [place] Calcium [Mass/Vol] 9.3 mg/dL Normal 8.5-10.2 [facility] Comment on above: Order Comment: Speci men Type: BLOOD SPECIMENOrdering Facility: [facility] Address: [address] [place] [address] Performed By: #### 2 4323-8 ####[facility] MILLWNCLIA [id number] [place] [address] [place] Chloride [Moles/Vol] 106 mmol/L Normal 98-107 [facility] Comment on above: Order Comment: Speci men Type: BLOOD SPECIMENOrdering Facility: [facility] Address: [address] [place] [address] Performed By: #### 2 4323-8 ####[facility] CENTERMEHREENLIA [id number] [place] [address] [place] CO2 [Moles/Vol] 25 mmol/L Normal 22-30 [facility] Comment on above: Order Comment: Speci men Type: BLOOD SPECIMENOrdering Facility: [facility] Address: [address] [place] [address] Performed By: #### 2 4323-8 ####[facility]ITALLIA [id number] [place] [address] [place] Creatinine [Mass/Vol] 0.91 mg/dL Normal 0.58-0.96 [facility] Comment on above: Order Comment: Speci men Type: BLOOD SPECIMENOrdering Facility: [facility] Address: [address] [place] [address] Performed By: #### 2 4323-8 ####[facility]ENTERNCLIA [id number] [place] [address] [place] Creatinine and Glomerular filtration rate.predicted panel (S/P/Bld) 61 mL/min/1.73m??? Normal >=60 [facility] Comment on above: Order Comment: Caleb bradley Type: BLOOD SPECIMENOrdering Facility: [facility] Address: [address] [place] [address] Result Comment: Lashonda mated Glomerular Filtration Rate (eGFR) is calculated using the 2020 CKD-EPI creatinine equation. This equation utilizes serum creatinine, sex, and age as parameters. The creatinine assay has traceable calibration to isotope dilution-mass spectrometry. Refer to KDIGO guidelines for clinical interpretation. In patients with unstable renal function, e.g. those with acute kidney injury, the eGFR may not accurately reflect actual GFR. Performed By: #### 2 4323-8 ####[facility] [id number] [place] [address] [place] Glucose [Mass/Vol] 109 mg/dL High 74-99 [facility] Comment on above: Order Comment: Caleb bradley Type: BLOOD SPECIMENOrdering Facility: [facility] Address: [address] [place] [address] Result Comment: The [place] [employer] (ADA) provides guidance for cutoff values for fasting glucose and random glucose. The ADA defines fasting as no caloric intake for at least 8 hours. Fasting plasma glucose results between 100 to 125 mg/dL indicate increased risk for diabetes (prediabetes).Fasting plasma glucose results greater than or equal to 126 mg/dL meet the criteria for diagnosis of diabetes. In the absence of unequivocal hyperglycemia, results should be confirmed by repeat testing. In a patient with classic symptoms of hyperglycemia or hyperglycemic crisis, random plasma glucose results greater than or equal to 200 mg/dL meet the criteria for diagnosis of diabetes.Reference: Standards of Medical Care in Diabetes 2016, [place] [employer]. Diabetes Care. 2016.39(Suppl 1). Performed By: #### 2 4323-8 ####[facility] [id number] [place] [address] [place] Potassium [Moles/Vol] 4.2 mmol/L Normal 3.7-5.1 [facility] Comment on above: Order Comment: Caleb bradley Type: BLOOD SPECIMENOrdering Facility: [facility] Address: [address] [place] [id number] Performed By: #### 2 4323-8 ####[facility] MILLWNCLIA [id number] [place] [address] [place] Protein [Mass/Vol] 6.1 g/dL Low 6.3-8.0 [facility] Comment on above: Order Comment: Speci men Type: BLOOD SPECIMENOrdering Facility: [facility] Address: [address] [place] [address] Performed By: #### 2 4323-8 ####[facility]ITALL[facility] [id number] [place] [address] [place] Sodium [Moles/Vol] 141 mmol/L Normal 136-144 [facility] Comment on above: Order Comment: Speci men Type: BLOOD SPECIMENOrdering Facility: [facility] Address: [address] [place] [address] Performed By: #### 2 4323-8 ####[facility]IA [id number] [place] [address] [place] Urea nitrogen [Mass/Vol] 21 mg/dL Normal 7-21 [facility] Comment on above: Order Comment: Speci men Type: BLOOD SPECIMENOrdering Facility: [facility] Address: [address] [place] [address] Performed By: #### 2 4323-8 ####[facility]IA [id number] [place] [address] [place] IMMUNOFIXATION SCREEN, SERUM on 12-20-2024 INTERPRETATION (MPA) Normal [facility] [place] Comment on above: Order Comment: Speci men Type: BLOOD SPECIMENOrdering Facility: [facility] Address: [address] [place] [address] Performed By: #### I [facility] ####[facility] LABCLIA [id number] [place] [address] MPA RESULT M protein is present. Abnormal No M p rotein is identified. [facility] Comment on above: Order Comment: Speci men Type: BLOOD SPECIMENOrdering Facility: [facility] Address: [address] [place] [address] Performed By: #### I FESC ####[facility] LABCLIA [id number] STAFF REVIEW (MPA) Reviewed by Diane Gray MD [facility] Comment on above: Order Comment: Speci men Type: BLOOD SPECIMENOrdering Facility: [facility] Address: [address] [place] [address] Performed By: #### I FES ####[facility] LABCLIA [id number] [place] [id number] [place] IMMUNOGLOBULINS,IGG,IGA,IGMo n 12-20-2024 IgA [Mass/Vol] 67 mg/dL Low 70-400 [facility] Comment on above: Order Comment: Speci men Type: BLOOD SPECIMENOrdering Facility: [facility] Address: [address] [place] [address] Performed By: #### S ERIMM ####[facility] LABCLIA [id number] [place] [id number] [place] IgG [Mass/Vol] 647 mg/dL Low 700-1600 [facility] Comment on above: Order Comment: Speci men Type: BLOOD SPECIMENOrdering Facility: [facility] Address: [address] [place] [address] Performed By: #### S ERIMM ####[facility] LABCLIA [id number] [place] [id number] [place] IgM [Mass/Vol] 30 mg/dL Low 40-230 [facility] Comment on above: Order Comment: Speci men Type: BLOOD SPECIMENOrdering Facility: [facility] Address: [address] [place] [address] Performed By: #### S ERIMM ####[facility] LABIA [id number] [place] [address] [place] KAPPA/MCINTOSH,FREE,SERon 2024 Immunoglobulin light chains.kappa.free (S) [Mass/Vol] 12.7 mg/L Normal 3.3-19.4 [facility] Comment on above: Order Comment: Speci men Type: BLOOD SPECIMENOrdering Facility: [facility] Address: [address] [place] [address] Result Comment: Rare ly, increased serum free light chains levels may not be detected or accurately quantified due to prozone phenomenon or in high viscosity samples using this immunoturbidimetric assay. Correlation with other laboratory results and clinical findings is recommended.The [place] Free Light Chain was performed using the Binding Site Optilite immunoturbidimetric method. Result obtained with different assay methods or kits cannot be used interchangeably. Performed By: #### K LFRS ####[facility] LABIA [id number] [place] [address] [place] Immunoglobulin light chains.kappa/Immunoglob ulin light chains.lambda (S) [Mass ratio] 0.90 Normal 0.26-1.65 [facility] Comment on above: Order Comment: Speci men Type: BLOOD SPECIMENOrdering Facility: [facility] Address: [address] [place] [address] Performed By: #### K LFRS ####[facility]ITALIA [id number] [place] [address] [place] Immunoglobulin light chains.lambda.free [Mass/Vol] 14.1 mg/L Normal 5.7-26.3 [facility] Comment on above: Order Comment: Speci men Type: BLOOD SPECIMENOrdering Facility: [facility] Address: [address] [place] [address] Result Comment: Rare ly, increased serum free light chains levels may not be detected or accurately quantified due to prozone phenomenon or in high viscosity samples using this immunoturbidimetric assay. Correlation with other laboratory results and clinical findings is recommended.The [place] Free Light Chain was performed using the Binding Site Optilite immunoturbidimetric method. Result obtained with different assay methods or kits cannot be used interchangeably. Performed By: #### K LFRS ####[facility] LABIA [id number] [place] [address] [place] PROTEIN ELECTROPHORESIS SERU M (P)on 12-20-2024 Albumin [Mass/Vol] 3.92 g/dL Normal 3.43-5.41 [facility] Comment on above: Order Comment: Speci men Type: BLOOD SPECIMENOrdering Facility: [facility] Address: [address] [place] [address] Performed By: #### L [id number] ####[facility] [id number] [place] [address] [place] Alpha 1 globulin Elph [Mass/Vol] 0.27 g/dL Normal 0.18-0.43 [facility] Comment on above: Order Comment: Speci men Type: BLOOD SPECIMENOrdering Facility: [facility] Address: [address] [place] [address] Performed By: #### L [id number] ####[facility] H[facility]PITALIA [id number] [place] [address] [place] Alpha 2 globulin Elph [Mass/Vol] 0.53 g/dL Normal 0.42-0.98 [facility] Comment on above: Order Comment: Speci men Type: BLOOD SPECIMENOrdering Facility: [facility] Address: [address] [place] [address] Performed By: #### L [id number] ####[facility] LABIA [id number] [place] [address] [place] Beta globulin Elph [Mass/Vol] 0.54 g/dL Low 0.61-1.17 [facility] Comment on above: Order Comment: Speci men Type: BLOOD SPECIMENOrdering Facility: [facility] Address: [address] [place] [address] Performed By: #### L [id number] ####[facility] LABCLIA [id number] [place] [address] [place] Gamma globulin Elph [Mass/Vol] 0.55 g/dL Normal 0.53-1.51 [facility] Comment on above: Order Comment: Speci men Type: BLOOD SPECIMENOrdering Facility: [facility] Address: [address] [place] [address] Performed By: #### L [id number] ####[facility] LABCLIA [id number] [address] STATES OF [facility] INTERPRETATION COMMENT FOR PROTEIN ELECTROPHORESIS Normal [facility] Comment on above: Order Comment: Speci men Type: BLOOD SPECIMENOrdering Facility: [facility] Address: [address] [place] [address] Performed By: #### L [id number] ####[facility] LABCLIA [id number] [address] [place] M-PROTEIN LOCATION Normal [facility] Comment on above: Order Comment: Speci men Type: BLOOD SPECIMENOrdering Facility: [facility] Address: [address] [place] [address] Result Comment: Not Applicable. Performed By: #### L [id number] ####[facility] LABCLIA [id number] [address], [facility] [place] Protein Fractions [Interp] An atypical region of restricted mobility is identified on protein electrophoresis. Abnormal No definitive M protein is identified on protein electrophore sis. [facility] Comment on above: Order Comment: Speci men Type: BLOOD SPECIMENOrdering Facility: [facility] Address: [address] [place] [address] Performed By: #### L [id number] ####[facility] LABCLIA [id number] [place] [id number] [place] Protein.monoclonal Elph [Mass/Vol] 0.00 g/dL Normal <=0.00 [facility] Comment on above: Order Comment: Speci men Type: BLOOD SPECIMENOrdering Facility: [facility] Address: [address] [place] [address] Performed By: #### L [id number] ####[facility] LABCLIA [id number] [place] [address] [place] SPE STAFF REVIEW Reviewed by Diane Gray MD [facility] Comment on above: Order Comment: Speci men Type: BLOOD SPECIMENOrdering Facility: [facility] Address: [address] [place] [address] Performed By: #### L [id number] ####[facility] LABCLIA [id number] [place] [address] [place] Prot SerPl-mCncon 12-20-2024 Protein [Mass/Vol] 5.8 g/dL Low 6.3-8.0 [facility] Comment on above: Order Comment: Speci men Type: BLOOD SPECIMENOrdering Facility: [facility] Address: [address] [place] [address] Performed By: #### 2 885-2 ####[facility] LABCLIA [id number] [place] [address] [place] CNPNon 12-10-2024 CNPN Normal [facility] CNPNon 12-02-2024 CNPN Normal [facility] CNOVSPon 11-29-2024 CNOVSP Normal [facility] CNPNon 11-28-2024 CNPN Normal [facility] Absolute neutrophil countOrd ered By: Vazquez Marc on 11-26-2024 Neutrophils (Bld) [#/Vol] 2.4 10*3/uL 2.0-7.7 [facility] Anion gap in Serum or Plasma Ordered By: Vazquez Marc on 11-26-2024 Anion gap [Moles/Vol] 12 mmol/L 5-[address] [facility] BUN/creatinine ratioOrdered By: Vazquez Marc on 11-26-2024 Urea nitrogen/Creatinine [Mass ratio] 28.7 mg/mg High - [facility] Basic Metabolic Profile (BMP )on 11-26-2024 BUN/CRE 28.7 RATIO High - [facility] Comment on above: Performed By: #### L 100.0100, L500.2500 #### [facility] [address] [place], [address] Calcium [Mass/Vol] 9.1 mg/dL Normal 7.6-11.0 [facility] Comment on above: Performed By: #### L 100.0100, L500.2500 #### [facility] [address] [place], [address] Chloride [Moles/Vol] 106 mmol/L Normal 98-108 [facility] Comment on above: Performed By: #### L 100.0100, L500.2500 #### [facility] [address] [place], [address] CO2 [Moles/Vol] 24.0 mmol/L Normal 21.0-32.0 [facility] Comment on above: Performed By: #### L 100.0100, L500.2500 #### [facility] [address] [place], [address] Creatinine [Mass/Vol] 0.99 mg/dL Normal 0.70-1.[address] [facility] Comment on above: Performed By: #### L 100.0100, L500.2500 #### [facility] [address] [place], [address] ECRCL 32.26 ml/min Low 50-250 [facility] Comment on above: Performed By: #### L 100.0100, L500.2500 #### [facility] [address] [place], [address] GAP 12 Normal 5-15 [facility] Comment on above: Performed By: #### L 100.0100, L500.2500 #### [facility] [address] [place], [address] GFR/1.73 sq M.predicted among non-blacks MDRD (S/P/Bld) [Vol rate/Area] 56 mL/min/{1.73_m2} Low >60 [facility] Comment on above: Result Comment: mL/m in/1.73m2 CKD-EPI Creatinine Equation (2020) Performed By: #### L 100.0100, L500.2500 #### [facility] [address] [place], [address] Glucose [Mass/Vol] 130 mg/dL High 70-99 [facility] Comment on above: Performed By: #### L 100.0100, L500.2500 #### [facility] [address] [place], [address] Potassium [Moles/Vol] 3.6 mmol/L Normal 3.3-5.[address] [facility] Comment on above: Performed By: #### L 100.0100, L500.2500 #### [facility] [address] [place], [address] Sodium [Moles/Vol] 142 mmol/L Normal 133-145 [facility] Comment on above: Performed By: #### L 100.0100, L500.2500 #### [facility] [address] [place], [address] Urea nitrogen [Mass/Vol] 28 mg/dL High 4-19 [facility] Comment on above: Performed By: #### L 100.0100, L500.2500 #### [facility] [address] [place], [address] Basophil percentageOrdered B y: Vazquez Marc on 11-26-2024 Basophils/100 WBC (Bld) 0.7 % 0-1 [facility] Bite cells LM Ql (Bld)Ordere d By: Vazquez Marc on 11-26-2024 Bite Cells RARE [facility] CBC W/Diff, Automatedon 05-0 Anisocytosis Ql (Bld) 1+ Normal [facility] Comment on above: Performed By: #### L 100.0100, L500.2500 #### [facility] [address] [place], [address] BITE CELL RARE Normal [facility] Comment on above: Performed By: #### L 100.0100, L500.2500 #### [facility] [address] [place], [address] OVALOCYTE 2+ Normal [facility] Comment on above: Performed By: #### L 100.0100, L500.2500 #### [facility] [address] [place], [address] PLT EST MOD DEC Normal ADEQ [facility] Comment on above: Performed By: #### L 100.0100, L500.2500 #### [facility] [address] [place], [address] SCHISTOCYTES RARE Normal [facility] Comment on above: Performed By: #### L 100.0100, L500.2500 #### [facility] [address] [place], [address] SMEAR COMMENT Normal [facility] Comment on above: Result Comment: 1+ B ANDS NOTED Performed By: #### L 100.0100, L500.2500 #### [facility] [address] [place], [address] Carbon dioxide, total [Moles /volume] in Central venous bloodOrdered By: Vazquez Marc on 11-26-2024 CO2 [Moles/Vol] 24.0 mmol/L 21.0-32.0 [facility] Chloride assayOrdered By: Srinivasan Marc on 11-26-2024 Chloride [Moles/Vol] 106 mmol/L 98-108 [facility] Emergency Department Summary on 11-26-2024 Emergency Department Summary [facility] Medical Records Department [address] [place] [address] Emergency Department Summary 11/26/24 MR#: [id number] Acct: [id number] Name: KAYLEY DICKINSON Rep #: [id number] : 1935 88 From: Vazquez Marc MD PCP: Dr. Hilton Pena MD Status:REG ER Location: ED HPI HPI - GI History of Present Illness Chief Complaint: Nausea/Vomiting/Diarrhe a Informant: patient and spouse/S.O. Nausea/Vomiting/Emesis GI Symptom: Positive for Nausea and Vomiting Onset: Today and Hours Severity: Moderate Diarrhea/Melena/Hematoc hezia GI Symptom: Positive for Diarrhea Onset: Today Stool Quality: Positive for Watery Severity: Moderate Associated Symptoms Associated Symptoms: Negative for Dysuria, Frequency, Hematuria or Urgency Narrative Narrative: 88-year-old female history of multiple myeloma has a scheduled infusion this Monday at the [facility]. States she felt fine earlier today. Around 6:30 PM she started having nausea and vomiting and then shortly after that began having diarrhea. She has had multiple episodes of each. No hematemesis. No melena. Really denies any abdominal pain or fever. No dysuria. States she was feeling fine until this started. No recent exposure anyone that had the symptoms. Her has not been ill. States she feels dehydrated. Prior similar symptoms: Yes Recent Illness/Hospitalization : No PFSH [facility] Medical History Multiple myeloma Contact with and (suspected) exposure to other viral communicable diseases Hyperlipidemia Hypothyroid Home Medications ???Medication ???Instructions ???Recorded ???Last Taken ???Type acyclovir 400 mg tablet 400 mg PO DAILY 08/16/23 Unknown H istory calcium 600 mg (as carbonate)-vit 1 tab PO BID 08/16/23 Unknown His tory D3 20 mcg (800 unit) chewable tablet (Caltrate plus D) ferrous sulfate 325 mg (65 mg 325 mg PO DAILY 08/16/23 Unknown H istory iron) tablet (Feosol) lenalidomide 10 mg capsule 10 mg PO QHS 08/16/23 Unknown Hist ory (Revlimid) levothyroxine 50 mcg tablet 50 mcg PO DAILY 08/16/23 Unknown H istory omeprazole 40 mg capsule,delayed 40 mg PO DAILY 08/16/23 Unknown Hi story release pravastatin 80 mg tablet 80 mg PO DAILY 08/16/23 Unknown Hi story ondansetron 4 mg disintegrating 4 mg PO Q8H PRN PRN Nausea #10 tab s 10/09/23 Unknown Rx tablet ondansetron 4 mg disintegrating 4 mg PO Q6H PRN nausea and 5 Unknown Rx tablet vomiting #7 tabs Allergy/AdvReac Type Severity Reaction Status Date / Time latex Allergy Rash Verified 11/26/24 20:45 Sulfa (Sulfonamide Allergy Hives Verified 11/26/24 20:45 Antibiotics) Social History current occupational status: retired Smoking Status: Never smoker ROS ROS ED ROS Narrative Nausea, vomiting and diarrhea. No dysuria. No fever. No abdominal pain. Constitutional Constitutional ED: Denies chills or fever(s) ENT ENT ED: Denies ear pain Cardiovascular Cardiovascular: Denies chest pain Respiratory/Chest Respiratory/Chest: Denies cough or dyspnea Gastrointestinal Gastrointestinal: Reports diarrhea, nausea and vomiting; Denies abdominal pain, constipation or melena Genitourinary Genitourinary ED: Denies dysuria or hematuria Musculoskeletal Musculoskeletal: Denies arthralgias Integumentary Denies abscess Neurologic Neurologic: Denies headache(s) Psychiatric Psychiatric: Denies anxiety Endocrine Endocrinology: Denies polydipsia Hematologic/Lymphatic Hematologic/Lymphatic: Denies easy bleeding Allergic/Immunologic Allergic/Immunologic ED: Denies mouth swelling EXAM Physical Exam Narrative Exam Narrative: 88-year-old female vital signs are stable afebrile. She does not look septic or toxic. She is currently in no acute distress. is at bedside. H EENT exam pupils round reactive light. Mildly dry mucous membranes. No droop. Normal speech. No trauma. Neck nontender. Lungs clear to auscultation bilaterally. Heart regular rhythm rate about 75 no murmur. Chest wall ribs nontender. Abdomen soft, nontender, nondistended, normal bowel sounds without peritoneal signs. No hernia or mass. No obstruction. Completely nontender. Moving all 4 extremities. Nontender no edema. Normal strength and range of motion. Back nontender. Neurologically she is awake alert. Answering questions following commands. Const Vital Signs: 11/26/24 20:44 11/26/24 20:46 11/26/24 20:46 Temperature 98.3 F 98.3 F 98.3 F Temperature Source Oral Oral Oral Pulse Rate 76 76 76 Respiratory Rate 16 16 16 Blood Pressure 153/65 H 153/65 H 153/65 H Blood Pressure Mean 94 94 94 Pulse Ox 99 99 99 Oxygen Delivery Method Room Air Room (more content not included)... Normal [facility] Eosinophil percentageOrdered By: Vazquez Marc on 11-26-2024 Eosinophils/100 WBC (Bld) 0.3 % 0-5 [facility] Erythrocyte distribution wid th (RBC) [Ratio]Ordered By: Vazquez Marc on 11-26-2024 Erythrocyte distribution width (RBC) [Entitic vol] 51.4 fL High 35.1-43.9 [facility] Erythrocyte distribution wid th ratioOrdered By: Vazquez Marc on 11-26-2024 Erythrocyte distribution width (RBC) [Ratio] 15.1 % High 11.6-14.6 [facility] Estimation of creatinine johann aranceOrdered By: Vazquez Marc on 11-26-2024 Estimated Creatinine Clearance Calc 32.26 ml/min Low 50-250 [facility] GFR/1.73 sq M.predicted rogelio g non-blacks MDRD (S/P/Bld) [Vol rate/Area]Ordered By: Vazquez Marc on 11-26-2024 Estimated GFR (MDRD) Non-Af Amer 56 Low >60 [facility] Comment on above: mL/min/1.73m2 CKD-EP I Creatinine Equation (2020) Hematocrit Auto (Bld) [Volum e fraction]Ordered By: Vazquez Marc on 11-26-2024 Hematocrit (Bld) [Volume fraction] 38.6 % 37-47 [facility] Hemoglobin measurementOrdere d By: Vazquez Marc on 11-26-2024 Hemoglobin (Bld) [Mass/Vol] 12.6 g/dL 12.0-15.0 [facility] Immature granulocytes/100 WB C Auto (Bld)Ordered By: Vazquez Marc on 11-26-2024 Immature granulocytes/100 WBC (Bld) 0.300 % 0.0-0.9 [facility] Comment on above: IG% - Immature Granu locytes (promyelocytes, myelocytes and metamyelocytes) > 1% indicates that a LEFT SHIFT is Present. Laboratory - Hematology and Cell countsOrdered By: Vazquez Marc on 11-26-2024 Anisocytosis Ql (Bld) 1+ [facility] Lymphocytes Auto (Unsp spec) [#/Vol]Ordered By: Vazquez Marc on 11-26-2024 Lymphocytes (Bld) [#/Vol] 0.23 10*3/uL Low 0.83-4.51 [facility] Lymphocytes/100 WBC Auto (Un sp spec)Ordered By: Vazquez Marc on 11-26-2024 Lymphocytes/100 WBC (Bld) 7.9 % Low 19-41 [facility] MCV (mean corpuscular volume ) determinationOrdered By: Vazquez Marc on 11-26-2024 MCV (RBC) [Entitic vol] 92.1 fL 81-99 [facility] Manual differential comment Curt (Bld) [Interp]Ordered By: Vazquez Marc on 11-26-2024 Differential Comment See comment [facility] Comment on above: 1+ BANDS NOTED Mean corpuscular hemoglobin (MCH) determinationOrdered By: Vazquez Marc on 11-26-2024 MCH (RBC) [Entitic mass] 30.1 pg 27.0-32.0 [facility] Mean corpuscular hemoglobin concentration (MCHC) determinationOrdered By: Vazquez Marc on 11-26-2024 MCHC (RBC) [Mass/Vol] 32.6 g/dL 32-[address] [facility] Mean platelet volume determi nationOrdered By: Vazquez Marc on 11-26-2024 Platelet mean volume (Bld) [Entitic vol] 11.3 fL 6.2-12.0 [facility] Monocyte percentageOrdered B y: Vazquez Marc on 11-26-2024 Monocytes/100 WBC (Bld) 7.9 % 0-10 [facility] Neutrophil percentageOrdered By: Vazquez Marc on 11-26-2024 Neutrophils/100 WBC (Bld) 82.9 % High 47-70 [facility] Nucleated red blood cell per centageOrdered By: Vazquez Marc on 11-26-2024 Nucleated RBC/100 WBC (Bld) [Ratio] 0 % 0-5 [facility] Ovalocytes LM Ql (Bld)Ordere d By: Vazquez Marc on 11-26-2024 Ovalocytes 2+ [facility] Platelet countOrdered By: Srinivasan Marc on 11-26-2024 Platelets (Bld) [#/Vol] 90 10*3/uL Low 150-450 [facility] Platelets LM Ql (Bld)Ordered By: Vazquez Marc on 11-26-2024 Platelet Estimate MOD DEC ADEQ [facility] Potassium (Unsp spec) [Mass/ Vol]Ordered By: Vazquez Marc on 11-26-2024 Potassium [Moles/Vol] 3.6 mmol/L 3.3-5.[address] [facility] RBC Auto (Bld) [#/Vol]Ordere d By: Vazquez Marc on 11-26-2024 RBC (Bld) [#/Vol] 4.19 10*6/uL Low 4.2-5.4 [facility] Schistocytes LM Ql (Bld)Orde red By: Vazquez Marc on 11-26-2024 Schistocytes RARE [facility] Serum creatinine measurement (mass/volume)Ordered By: Vazquez Marc on 11-26-2024 Creatinine [Mass/Vol] 0.99 mg/dL 0.70-1.[address] [facility] Serum glucose measurement (m ass/volume)Ordered By: Vazquez Marc on 11-26-2024 Glucose [Mass/Vol] 130 mg/dL High 70-99 [facility] Serum or plasma calcium marija urement (mass/volume)Ordered By: Vazquez Marc on 11-26-2024 Calcium [Mass/Vol] 9.1 mg/dL 7.6-11.0 [facility] Serum or plasma urea nitroge n measurement (mass/volume)Ordered By: Vazquez Marc on 11-26-2024 Urea nitrogen [Mass/Vol] 28 mg/dL High 4-19 [facility] Sodium levelOrdered By: Vazquez Marc on 11-26-2024 Sodium [Moles/Vol] 142 mmol/L 133-145 [facility] White blood cell (WBC) count Ordered By: Vazquez Marc on 11-26-2024 WBC (Bld) [#/Vol] 2.9 10*3/uL Low 4.4-11.0 [facility] CBC W Auto Differential pane l (Bld)on 11-25-2024 Basophils (Bld) [#/Vol] 10*3/uL Normal <0.11 [facility] [facility] Comment on above: Order Comment: Speci men Type: BLOOD SPECIMENOrdering Facility: [facility] Address: [address] [place] [address] Performed By: #### 5 7021-8 ####[facility] [id number] [place] [address] [place] Basophils/100 WBC (Bld) 0.6 % Normal C [facility] Comment on above: Order Comment: Speci men Type: BLOOD SPECIMENOrdering Facility: [facility] Address: [address] [place] [address] Performed By: #### 5 7021-8 ####[facility] [id number] [place] [address] [place] Differential cell count method Nom (Bld) Auto Normal [facility] Comment on above: Order Comment: Speci men Type: BLOOD SPECIMENOrdering Facility: [facility] Address: [address] [place] [address] Performed By: #### 5 7021-8 ####[facility] [id number] [place] [address] [place] Eosinophils (Bld) [#/Vol] 0.06 10*3/uL Normal <0.46 [facility] Comment on above: Order Comment: Speci men Type: BLOOD SPECIMENOrdering Facility: [facility] Address: [address] [place] [address] Performed By: #### 5 7021-8 ####[facility] [id number] [place] [address] [place] Eosinophils/100 WBC (Bld) 1.8 % Normal [facility] Comment on above: Order Comment: Speci men Type: BLOOD SPECIMENOrdering Facility: [facility] Address: [address] [place] [address] Performed By: #### 5 7021-8 ####[facility] [id number] [place] [address] [place] Erythrocyte distribution width (RBC) [Ratio] 15.4 % High 11.5-15.0 [facility] Comment on above: Order Comment: Speci men Type: BLOOD SPECIMENOrdering Facility: [facility] Address: [address] [place] [address] Performed By: #### 5 7021-8 ####[facility] SUNNYEAST WORCESTERMEHREENСЕРГЕЙ [id number] [place] [address] [place] Hematocrit (Bld) [Volume fraction] 36.1 % Normal 36.0-46.0 [facility] Comment on above: Order Comment: Speci men Type: BLOOD SPECIMENOrdering Facility: [facility] Address: [address] [place] [address] Performed By: #### 5 7021-8 ####[facility] CENTERDANIELLAA [id number] [place] [address] [place] Hemoglobin (Bld) [Mass/Vol] 11.5 g/dL Normal 11.5-15.5 [facility] Comment on above: Order Comment: Speci men Type: BLOOD SPECIMENOrdering Facility: [facility] Address: [address] [place] [address] Performed By: #### 5 7021-8 ####[facility]ENTERNCLIA [id number] [place] [address] [place] Immature granulocytes (Bld) [#/Vol] 10*3/uL Normal <0.10 [facility] Comment on above: Order Comment: Speci men Type: BLOOD SPECIMENOrdering Facility: [facility] Address: [address] [place] [address] Performed By: #### 5 7021-8 ####[facility]PITALLIA [id number] [place] [address] [place] Immature granulocytes/100 WBC (Bld) 0.3 % Normal [facility] Comment on above: Order Comment: Speci men Type: BLOOD SPECIMENOrdering Facility: [facility] Address: [address] [place] [address] Performed By: #### 5 7021-8 ####[facility] [id number] [place] [address] [place] Lymphocytes (Bld) [#/Vol] 0.93 10*3/uL Low 1.00-4.00 [facility] Comment on above: Order Comment: Speci men Type: BLOOD SPECIMENOrdering Facility: [facility] Address: [address] [place] [address] Performed By: #### 5 7021-8 ####[facility] [id number] [place] [address] [place] Lymphocytes/100 WBC (Bld) 27.8 % Normal [facility] Comment on above: Order Comment: Speci men Type: BLOOD SPECIMENOrdering Facility: [facility] Address: [address] [place] [address] Performed By: #### 5 7021-8 ####[facility] [id number] [place] [address] [place] MCH (RBC) [Entitic mass] 29.3 pg Normal 26.0-34.0 [facility] Comment on above: Order Comment: Speci men Type: BLOOD SPECIMENOrdering Facility: [facility] Address: [address] [place] [address] Performed By: #### 5 7021-8 ####[facility] [id number] [place] [address] [place] MCHC (RBC) [Mass/Vol] 31.9 g/dL Normal 30.5-36.0 [facility] Comment on above: Order Comment: Speci men Type: BLOOD SPECIMENOrdering Facility: [facility] Address: [address] [place] [address] Performed By: #### 5 7021-8 ####[facility] [id number] [place] [address] [place] MCV (RBC) [Entitic vol] 92.1 fL Normal 80.0-100.0 C [facility] Comment on above: Order Comment: Speci men Type: BLOOD SPECIMENOrdering Facility: [facility] Address: [address] [place] [address] Performed By: #### 5 7021-8 ####[facility]ENTERNCMOUNT[facility] [id number] [place] [address] [place] Monocytes (Bld) [#/Vol] 0.25 10*3/uL Normal <0.87 [facility] Comment on above: Order Comment: Speci men Type: BLOOD SPECIMENOrdering Facility: [facility] Address: [address] [place] [address] Performed By: #### 5 7021-8 ####[facility] [id number] [place] [address] [place] Monocytes/100 WBC (Bld) 7.5 % Normal C [facility] Comment on above: Order Comment: Speci men Type: BLOOD SPECIMENOrdering Facility: [facility] Address: [address] [place] [address] Performed By: #### 5 7021-8 ####[facility]ENTERNCMOUNT[facility] [id number] [place] [address] [place] Neutrophils (Bld) [#/Vol] 2.08 10*3/uL Normal 1.45-7.50 [facility] Comment on above: Order Comment: Speci men Type: BLOOD SPECIMENOrdering Facility: [facility] Address: [address] [place] [address] Performed By: #### 5 7021-8 ####[facility] [id number] [place] [address] [place] Neutrophils/100 WBC (Bld) 62.0 % Normal [facility] Comment on above: Order Comment: Speci men Type: BLOOD SPECIMENOrdering Facility: [facility] Address: [address] [place] [address] Performed By: #### 5 7021-8 ####[facility] CENTERMEHREENRoc [id number] [place] [address] [place] Nucleated RBC (Bld) [#/Vol] 10*3/uL Normal <0.01 [facility] Comment on above: Order Comment: Speci men Type: BLOOD SPECIMENOrdering Facility: [facility] Address: [address] [place] [address] Performed By: #### 5 7021-8 ####[facility] CENTERMEHREENRoc [id number] [place] [address] [place] Nucleated RBC/100 WBC (Bld) [Ratio] 0.0 /100 WBC Normal [facility] Comment on above: Order Comment: Speci men Type: BLOOD SPECIMENOrdering Facility: [facility] Address: [address] [place] [address] Performed By: #### 5 7021-8 ####[facility] HOSPITALRoc [id number] [place] [address] [place] Platelet mean volume (Bld) [Entitic vol] 11.1 fL Normal 9.0-12.7 [facility] Comment on above: Order Comment: Speci men Type: BLOOD SPECIMENOrdering Facility: [facility] Address: [address] [place] [address] Performed By: #### 5 7021-8 ####[facility] SUNNYWNCLIA [id number] [place] [address] [place] Platelets (Bld) [#/Vol] 102 10*3/uL Low 150-400 [facility] Comment on above: Order Comment: Speci men Type: BLOOD SPECIMENOrdering Facility: [facility] Address: [address] [place] [address] Performed By: #### 5 7021-8 ####[facility]ENTERNCLIA [id number] [place] [address] [place] RBC (Bld) [#/Vol] 3.92 10*6/uL Normal 3.90-5.20 [facility] Comment on above: Order Comment: Speci men Type: BLOOD SPECIMENOrdering Facility: [facility] Address: [address] [place] [address] Performed By: #### 5 7021-8 ####[facility]ENTERNCLIA [id number] [place] [address] [place] WBC (Bld) [#/Vol] 3.35 10*3/uL Low 3.70-11.00 [facility] Comment on above: Order Comment: Speci men Type: BLOOD SPECIMENOrdering Facility: [facility] Address: [address] [place] [address] Performed By: #### 5 7021-8 ####[facility] CENTERNCLIA [id number] [place] [address] [place] Comprehensive metabolic 2000 panelon 11-25-2024 Albumin [Mass/Vol] 3.9 g/dL Normal 3.9-4.9 [facility] Comment on above: Order Comment: Speci men Type: BLOOD SPECIMENOrdering Facility: [facility] Address: [address] [place] [address] Performed By: #### 2 4323-8 ####[facility]ENTERNCLIA [id number] [place] [address] [place] ALP [Catalytic activity/Vol] 44 U/L Normal 34-123 [facility] Comment on above: Order Comment: Speci men Type: BLOOD SPECIMENOrdering Facility: [facility] Address: [address] [place] [address] Performed By: #### 2 4323-8 ####[facility] SUNNYWGALIA [id number] [place] [address] [place] ALT [Catalytic activity/Vol] 25 U/L Normal 7-38 [facility] Comment on above: Order Comment: Speci men Type: BLOOD SPECIMENOrdering Facility: [facility] Address: [address] [place] [address] Performed By: #### 2 4323-8 ####[facility]ENTERNCLIA [id number] [place] [address] [place] Anion gap [Moles/Vol] 9 mmol/L Normal 8-15 [facility] Comment on above: Order Comment: Speci men Type: BLOOD SPECIMENOrdering Facility: [facility] Address: [address] [place] [address] Performed By: #### 2 4323-8 ####[facility]ENTERNCLIA [id number] [place] [address] [place] AST [Catalytic activity/Vol] 17 U/L Normal 13-35 [facility] Comment on above: Order Comment: Speci men Type: BLOOD SPECIMENOrdering Facility: [facility] Address: [address] [place], [place] [address] Performed By: #### 2 4323-8 ####[facility]ENTERNCLIA [id number] [place] [address] [place] Bilirubin [Mass/Vol] 0.4 mg/dL Normal 0.2-1.3 [facility] Comment on above: Order Comment: Speci men Type: BLOOD SPECIMENOrdering Facility: [facility] Address: [address] [place] [address] Performed By: #### 2 4323-8 ####[facility] TEOFILONCСЕРГЕЙ [id number] [place] [address] [place] Calcium [Mass/Vol] 9.3 mg/dL Normal 8.5-10.2 [facility] Comment on above: Order Comment: Speci men Type: BLOOD SPECIMENOrdering Facility: [facility] Address: [address] [place] [address] Performed By: #### 2 4323-8 ####[facility]ENTERNCLIA [id number] [place] [address] [place] Chloride [Moles/Vol] 104 mmol/L Normal 98-107 [facility] Comment on above: Order Comment: Speci men Type: BLOOD SPECIMENOrdering Facility: [facility] Address: [address] [place] [address] Performed By: #### 2 4323-8 ####[facility] CENTERNCPHILLIPA [id number] [place] [address] [place] CO2 [Moles/Vol] 29 mmol/L Normal 22-30 [facility] Comment on above: Order Comment: Speci men Type: BLOOD SPECIMENOrdering Facility: [facility] Address: [address] [place] [address] Performed By: #### 2 4323-8 ####[facility] CENTERNCLIA [id number] [place] [address] [place] Creatinine [Mass/Vol] 0.86 mg/dL Normal 0.58-0.96 [facility] Comment on above: Order Comment: Speci men Type: BLOOD SPECIMENOrdering Facility: [facility] Address: [address] [place] [address] Performed By: #### 2 4323-8 ####[facility] CENTERNCLI [id number] [place] [address] [place] Creatinine and Glomerular filtration rate.predicted panel (S/P/Bld) 66 mL/min/1.73m??? Normal >=60 [facility] Comment on above: Order Comment: Caleb bradley Type: BLOOD SPECIMENOrdering Facility: [facility] Address: [address] [place] [address] Result Comment: Lashonda mated Glomerular Filtration Rate (eGFR) is calculated using the 2020 CKD-EPI creatinine equation. This equation utilizes serum creatinine, sex, and age as parameters. The creatinine assay has traceable calibration to isotope dilution-mass spectrometry. Refer to KDIGO guidelines for clinical interpretation. In patients with unstable renal function, e.g. those with acute kidney injury, the eGFR may not accurately reflect actual GFR. Performed By: #### 2 4323-8 ####[facility] [id number] [place] [address] [place] Glucose [Mass/Vol] 96 mg/dL Normal 74-99 [facility] Comment on above: Order Comment: Caleb bradley Type: BLOOD SPECIMENOrdering Facility: [facility] Address: [address] [place] [address] Result Comment: The [place] [employer] (ADA) provides guidance for cutoff values for fasting glucose and random glucose. The ADA defines fasting as no caloric intake for at least 8 hours. Fasting plasma glucose results between 100 to 125 mg/dL indicate increased risk for diabetes (prediabetes).Fasting plasma glucose results greater than or equal to 126 mg/dL meet the criteria for diagnosis of diabetes. In the absence of unequivocal hyperglycemia, results should be confirmed by repeat testing. In a patient with classic symptoms of hyperglycemia or hyperglycemic crisis, random plasma glucose results greater than or equal to 200 mg/dL meet the criteria for diagnosis of diabetes.Reference: Standards of Medical Care in Diabetes 2016, [place] [employer]. Diabetes Care. 2016.39(Suppl 1). Performed By: #### 2 4323-8 ####[facility] [id number] [place] [address] [place] Potassium [Moles/Vol] 4.4 mmol/L Normal 3.7-5.1 [facility] Comment on above: Order Comment: Speci men Type: BLOOD SPECIMENOrdering Facility: [facility] Address: [address] [place] [address] Performed By: #### 2 4323-8 ####[facility] MILLWMEHREENLIA [id number] [place] [address] [place] Protein [Mass/Vol] 6.0 g/dL Low 6.3-8.0 [facility] Comment on above: Order Comment: Speci men Type: BLOOD SPECIMENOrdering Facility: [facility] Address: [address] [place] [address] Performed By: #### 2 4323-8 ####[facility]ENTERNCLIA [id number] [place] [address] [place] Sodium [Moles/Vol] 142 mmol/L Normal 136-144 [facility] Comment on above: Order Comment: Speci men Type: BLOOD SPECIMENOrdering Facility: [facility] Address: [address] [place] [address] Performed By: #### 2 4323-8 ####[facility]ENTERNCLIA [id number] [place] [address] [place] Urea nitrogen [Mass/Vol] 22 mg/dL High 7-21 [facility] Comment on above: Order Comment: Speci men Type: BLOOD SPECIMENOrdering Facility: [facility] Address: [address] [place] [address] Performed By: #### 2 4323-8 ####[facility] CENTERNCLIA [id number] [place] [address] [place] IMMUNOFIXATION SCREEN, SERUM on 11-25-2024 INTERPRETATION (MPA) Normal [facility] Comment on above: Order Comment: Speci men Type: BLOOD SPECIMENOrdering Facility: [facility] Address: [address] [place] [address] Performed By: #### I FESC ####[facility] LABCLIA [id number] [address] [place] [address] [place] [facility] MPA RESULT A poorly defined reg ion of restricted mobility is present that may represent an M protein. Abnormal No M protein is identified. [facility] Comment on above: Order Comment: Speci men Type: BLOOD SPECIMENOrdering Facility: [facility] Address: [address] [place] [address] Performed By: #### I FESC ####[facility] LABIA [id number] [address] [place] STAFF REVIEW (MPA) Reviewed by Dr. Clari Galloway MD [facility] Comment on above: Order Comment: Speci men Type: BLOOD SPECIMENOrdering Facility: [facility] Address: [address] [place] [address] Performed By: #### I FESC ####[facility] LABCLIA [id number] [place] [address] [place] IMMUNOGLOBULINS,IGG,IGA,IGMo n 11-25-2024 IgA [Mass/Vol] 66 mg/dL Low 70-400 [facility] Comment on above: Order Comment: Speci men Type: BLOOD SPECIMENOrdering Facility: [facility] Address: [address] [place] [address] Performed By: #### S ERIMM ####[facility] LABCLIA [id number] [place] [id number] [place] IgG [Mass/Vol] 668 mg/dL Low 700-1600 [facility] Comment on above: Order Comment: Speci men Type: BLOOD SPECIMENOrdering Facility: [facility] Address: [address] [place] [address] Performed By: #### S ERIMM ####[facility] LABCLIA [id number] [place] [address] [place] IgM [Mass/Vol] 32 mg/dL Low 40-230 [facility] Comment on above: Order Comment: Speci men Type: BLOOD SPECIMENOrdering Facility: [facility] Address: [address] [place] [address] Performed By: #### S ERIMM ####[facility] LABCLIA [id number] [place] [address] [place] KAPPA/MCINTOSH,FREE,SERon 2024 Immunoglobulin light chains.kappa.free (S) [Mass/Vol] 13.0 mg/L Normal 3.3-19.4 [facility] Comment on above: Order Comment: Speci men Type: BLOOD SPECIMENOrdering Facility: [facility] Address: [address] [place] [address] Result Comment: Rare ly, increased serum free light chains levels may not be detected or accurately quantified due to prozone phenomenon or in high viscosity samples using this immunoturbidimetric assay. Correlation with other laboratory results and clinical findings is recommended.The [place] Free Light Chain was performed using the Binding Site Optilite immunoturbidimetric method. Result obtained with different assay methods or kits cannot be used interchangeably. Performed By: #### K LFRS ####[facility] LABCLIA [id number] [place] [address] [place] Immunoglobulin light chains.kappa/Immunoglob ulin light chains.lambda (S) [Mass ratio] 0.92 Normal 0.26-1.65 [facility] Comment on above: Order Comment: Speci men Type: BLOOD SPECIMENOrdering Facility: [facility] Address: [address] [place] [address] Performed By: #### K LFRS ####[facility] LABCLIA [id number] [place] [address] [place] Immunoglobulin light chains.lambda.free [Mass/Vol] 14.2 mg/L Normal 5.7-26.3 [facility] Comment on above: Order Comment: Speci men Type: BLOOD SPECIMENOrdering Facility: [facility] Address: [address] [place] [address] Result Comment: Rare ly, increased serum free light chains levels may not be detected or accurately quantified due to prozone phenomenon or in high viscosity samples using this immunoturbidimetric assay. Correlation with other laboratory results and clinical findings is recommended.The [place] Free Light Chain was performed using the Binding Site Optilite immunoturbidimetric method. Result obtained with different assay methods or kits cannot be used interchangeably. Performed By: #### K LFRS ####[facility] HOSPITALIA [id number] [place] [address] [place] PROTEIN ELECTROPHORESIS SERU M (P)on 11-25-2024 Albumin [Mass/Vol] 3.87 g/dL Normal 3.43-5.41 [facility] Comment on above: Order Comment: Speci men Type: BLOOD SPECIMENOrdering Facility: [facility] Address: [address] [place] [address] Performed By: #### L [id number] ####[facility] LABIA [id number] [place] [address] [place] Alpha 1 globulin Elph [Mass/Vol] 0.26 g/dL Normal 0.18-0.43 [facility] Comment on above: Order Comment: Speci men Type: BLOOD SPECIMENOrdering Facility: [facility] Address: [address] [place] [address] Performed By: #### L [id number] ####[facility] LABIA [id number] [place] [id number] [place] Alpha 2 globulin Elph [Mass/Vol] 0.57 g/dL Normal 0.42-0.98 [facility] Comment on above: Order Comment: Speci men Type: BLOOD SPECIMENOrdering Facility: [facility] Address: [address] [place] [address] Performed By: #### L [id number] ####[facility] LABCLIA [id number] [address] [place] [address] [place] Beta globulin Elph [Mass/Vol] 0.56 g/dL Low 0.61-1.17 [facility] Comment on above: Order Comment: Speci men Type: BLOOD SPECIMENOrdering Facility: [facility] Address: [address] [place] [address] Performed By: #### L [id number] ####[facility] LABCLIA [id number] [address] [place] [address] [place] Gamma globulin Elph [Mass/Vol] 0.54 g/dL Normal 0.53-1.51 [facility] Comment on above: Order Comment: Speci men Type: BLOOD SPECIMENOrdering Facility: [facility] Address: [address] [place] [address] Performed By: #### L [id number] ####[facility] LABCLIA [id number] [address] [place] [address] [place] INTERPRETATION COMMENT FOR PROTEIN ELECTROPHORESIS Normal [facility] Comment on above: Order Comment: Speci men Type: BLOOD SPECIMENOrdering Facility: [facility] Address: [address] [place] [address] Performed By: #### L [id number] ####[facility] LABIA [id number] [address] [address] [place] M-PROTEIN LOCATION Normal [facility] Comment on above: Order Comment: Speci men Type: BLOOD SPECIMENOrdering Facility: [facility] Address: [address] [place] [address] Result Comment: Not Applicable. Performed By: #### L [id number] ####[facility] LABCLIA [id number] [address] [place] [address] [place] Protein Fractions [Interp] An atypical region of restricted mobility is identified on protein electrophoresis. Abnormal No definitive M protein is identified on protein electrophore sis. [facility] Comment on above: Order Comment: Speci men Type: BLOOD SPECIMENOrdering Facility: [facility] Address: [address] [place] [address] Performed By: #### L [id number] ####[facility] LABCLIA [id number] [place] [address] [place] [facility] Protein.monoclonal Elph [Mass/Vol] 0.00 g/dL Normal <=0.00 [facility] Comment on above: Order Comment: Speci men Type: BLOOD SPECIMENOrdering Facility: [facility] Address: [address] [place] [address] Performed By: #### L [id number] ####[facility] LABIA [id number] [place] [address] [place] SPE STAFF REVIEW Reviewed by Dr. Clari Galloway MD [facility] Comment on above: Order Comment: Speci men Type: BLOOD SPECIMENOrdering Facility: [facility] Address: [address] [place] [address] Performed By: #### L [id number] ####[facility] LABIA [id number] [place] [address] [place] Prot SerPl-mCncon 11-25-2024 Protein [Mass/Vol] 5.8 g/dL Low 6.3-8.0 [facility] Comment on above: Order Comment: Speci men Type: BLOOD SPECIMENOrdering Facility: [facility] Address: [address] [place] [address] Performed By: #### 2 885-2 ####[facility] LABIA [id number] [place] [address] [place] CNPNon 11-06-2024 CNPN Normal [facility] CNOVSPon 11-01-2024 CNOVSP Normal [facility] CBC W Auto Differential pane l (Bld)on 10-28-2024 Basophils (Bld) [#/Vol] 10*3/uL Normal <0.11 C [facility] Comment on above: Order Comment: Speci men Type: BLOOD SPECIMENOrdering Facility: [facility] Address: [address] [place] [address] Performed By: #### 5 7021-8 ####[facility] SUNNYEAST WORCESTERMEHREENLIA [id number] [place] [address] [place] Basophils/100 WBC (Bld) 0.6 % Normal C [facility] Comment on above: Order Comment: Speci men Type: BLOOD SPECIMENOrdering Facility: [facility] Address: [address] [place] [address] Performed By: #### 5 7021-8 ####[facility] [id number] [place] [address] [place] Differential cell count method Nom (Bld) Auto Normal [facility] Comment on above: Order Comment: Speci men Type: BLOOD SPECIMENOrdering Facility: [facility] Address: [address] [place] [address] Performed By: #### 5 7021-8 ####[facility] [id number] [place] [address] [place] Eosinophils (Bld) [#/Vol] 0.03 10*3/uL Normal <0.46 [facility] Comment on above: Order Comment: Speci men Type: BLOOD SPECIMENOrdering Facility: [facility] Address: [address] [place] [address] Performed By: #### 5 7021-8 ####[facility]PITALLIA [id number] [place] [address] [place] Eosinophils/100 WBC (Bld) 0.9 % Normal [facility] Comment on above: Order Comment: Speci men Type: BLOOD SPECIMENOrdering Facility: [facility] Address: [address] [place] [address] Performed By: #### 5 7021-8 ####[facility] SUNNYWNCLIA [id number] [place] [address] [place] Erythrocyte distribution width (RBC) [Ratio] 15.3 % High 11.5-15.0 [facility] Comment on above: Order Comment: Speci men Type: BLOOD SPECIMENOrdering Facility: [facility] Address: [address] [place] [address] Performed By: #### 5 7021-8 ####[facility]OSPITALLIA [id number] [place] [address] [place] Hematocrit (Bld) [Volume fraction] 36.6 % Normal 36.0-46.0 [facility] Comment on above: Order Comment: Speci men Type: BLOOD SPECIMENOrdering Facility: [facility] Address: [address] [place] [address] Performed By: #### 5 7021-8 ####[facility] [id number] [place] [address] [place] Hemoglobin (Bld) [Mass/Vol] 11.8 g/dL Normal 11.5-15.5 [facility] Comment on above: Order Comment: Speci men Type: BLOOD SPECIMENOrdering Facility: [facility] Address: [address] [place] [address] Performed By: #### 5 7021-8 ####[facility]PITALLIA [id number] [place] [address] [place] Immature granulocytes (Bld) [#/Vol] 10*3/uL Normal <0.10 [facility] Comment on above: Order Comment: Speci men Type: BLOOD SPECIMENOrdering Facility: [facility] Address: [address] [place] [address] Performed By: #### 5 7021-8 ####[facility]ENTERNCLI [id number] [place] [address] [place] Immature granulocytes/100 WBC (Bld) 0.6 % Normal [facility] Comment on above: Order Comment: Speci men Type: BLOOD SPECIMENOrdering Facility: [facility] Address: [address] [place] [address] Performed By: #### 5 7021-8 ####[facility]ENTERNCMOUNT[facility] [id number] [place] [address] [place] Lymphocytes (Bld) [#/Vol] 0.85 10*3/uL Low 1.00-4.00 [facility] Comment on above: Order Comment: Speci men Type: BLOOD SPECIMENOrdering Facility: [facility] Address: [address] [place] [address] Performed By: #### 5 7021-8 ####[facility] [id number] [place] [address] [place] Lymphocytes/100 WBC (Bld) 25.8 % Normal [facility] Comment on above: Order Comment: Speci men Type: BLOOD SPECIMENOrdering Facility: [facility] Address: [address] [place] [address] Performed By: #### 5 7021-8 ####[facility] [id number] [place] [address] [place] MCH (RBC) [Entitic mass] 29.4 pg Normal 26.0-34.0 [facility] Comment on above: Order Comment: Speci men Type: BLOOD SPECIMENOrdering Facility: [facility] Address: [address] [place] [address] Performed By: #### 5 7021-8 ####[facility] [id number] [place] [address] [place] MCHC (RBC) [Mass/Vol] 32.2 g/dL Normal 30.5-36.0 [facility] Comment on above: Order Comment: Speci men Type: BLOOD SPECIMENOrdering Facility: [facility] Address: [address] [place] [address] Performed By: #### 5 7021-8 ####[facility] CENTERMEHREENMOUNTAIN POINT [facility] [id number] [place] [address] [place] MCV (RBC) [Entitic vol] 91.0 fL Normal 80.0-100.0 C [facility] Comment on above: Order Comment: Speci men Type: BLOOD SPECIMENOrdering Facility: [facility] Address: [address] [place] [address] Performed By: #### 5 7021-8 ####[facility] [id number] [place] [address] [place] Monocytes (Bld) [#/Vol] 0.24 10*3/uL Normal <0.87 [facility] Comment on above: Order Comment: Speci men Type: BLOOD SPECIMENOrdering Facility: [facility] Address: [address] [place] [address] Performed By: #### 5 7021-8 ####[facility] [id number] [place] [address] [place] Monocytes/100 WBC (Bld) 7.3 % Normal C [facility] Comment on above: Order Comment: Speci men Type: BLOOD SPECIMENOrdering Facility: [facility] Address: [address] [place] [address] Performed By: #### 5 7021-8 ####[facility] [id number] [place] [address] [place] Neutrophils (Bld) [#/Vol] 2.13 10*3/uL Normal 1.45-7.50 [facility] Comment on above: Order Comment: Speci men Type: BLOOD SPECIMENOrdering Facility: [facility] Address: [address] [place] [address] Performed By: #### 5 7021-8 ####[facility] SUNNYWMEHREENLIA [id number] [place] [address] [place] Neutrophils/100 WBC (Bld) 64.8 % Normal [facility] Comment on above: Order Comment: Speci men Type: BLOOD SPECIMENOrdering Facility: [facility] Address: [address] [place] [address] Performed By: #### 5 7021-8 ####[facility] [id number] [place] [address] [place] Nucleated RBC (Bld) [#/Vol] 10*3/uL Normal <0.01 [facility] Comment on above: Order Comment: Speci men Type: BLOOD SPECIMENOrdering Facility: [facility] Address: [address] [place] [address] Performed By: #### 5 7021-8 ####[facility] [id number] [place] [address] [place] Nucleated RBC/100 WBC (Bld) [Ratio] 0.0 /100 WBC Normal [facility] Comment on above: Order Comment: Speci men Type: BLOOD SPECIMENOrdering Facility: [facility] Address: [address] [place] [address] Performed By: #### 5 7021-8 ####[facility]OSPITALPHILLIP [id number] [place] [address] [place] Platelet mean volume (Bld) [Entitic vol] 10.8 fL Normal 9.0-12.7 [facility] Comment on above: Order Comment: Speci men Type: BLOOD SPECIMENOrdering Facility: [facility] Address: [address] [place] [address] Performed By: #### 5 7021-8 ####[facility] CENTERNCLIA [id number] [place] [address] [place] Platelets (Bld) [#/Vol] 99 10*3/uL Low 150-400 C [facility] Comment on above: Order Comment: Speci men Type: BLOOD SPECIMENOrdering Facility: [facility] Address: [address] [place] [address] Result Comment: No c lot detected. Performed By: #### 5 7021-8 ####[facility] CENTERSTEFANIE [id number] [place] [address] [place] RBC (Bld) [#/Vol] 4.02 10*6/uL Normal 3.90-5.20 [facility] Comment on above: Order Comment: Speci men Type: BLOOD SPECIMENOrdering Facility: [facility] Address: [address] [place] [address] Performed By: #### 5 7021-8 ####[facility] CENTERMEHREENRoc [id number] [place] [address] [place] WBC (Bld) [#/Vol] 3.29 10*3/uL Low 3.70-11.00 [facility] Comment on above: Order Comment: Speci men Type: BLOOD SPECIMENOrdering Facility: [facility] Address: [address] [place] [address] Performed By: #### 5 7021-8 ####[facility] CENTERDANIELLAA [id number] [place] [address] [place] Comprehensive metabolic 2000 panelon 10-28-2024 Albumin [Mass/Vol] 4.1 g/dL Normal 3.9-4.9 [facility] Comment on above: Order Comment: Speci men Type: BLOOD SPECIMENOrdering Facility: [facility] Address: [address] [place] [address] Performed By: #### 2 4323-8 ####[facility] CENTERNCLIA [id number] [place] [address] [place] ALP [Catalytic activity/Vol] 48 U/L Normal 34-123 [facility] Comment on above: Order Comment: Speci men Type: BLOOD SPECIMENOrdering Facility: [facility] Address: [address] [place], [place] [address] Performed By: #### 2 4323-8 ####[facility] TERESA MILLTOWNCLIA [id number] [place] [address] [place] ALT [Catalytic activity/Vol] 26 U/L Normal 7-38 [facility] Comment on above: Order Comment: Speci men Type: BLOOD SPECIMENOrdering Facility: [facility] Address: [address] [place] [address] Performed By: #### 2 4323-8 ####[facility] MILLTOWNCLIA [id number] [place] [address] [place] Anion gap [Moles/Vol] 10 mmol/L Normal 8-15 [facility] Comment on above: Order Comment: Speci men Type: BLOOD SPECIMENOrdering Facility: [facility] Address: [address] [place] [address] Performed By: #### 2 4323-8 ####[facility] HOSPITALWGALIA [id number] [place] [address] [place] AST [Catalytic activity/Vol] 16 U/L Normal 13-35 [facility] Comment on above: Order Comment: Speci men Type: BLOOD SPECIMENOrdering Facility: [facility] Address: [address] [place] [address] Performed By: #### 2 4323-8 ####[facility] TERESASOUTHWESTERN VERMONT MEDICAL CENTERWNCLIA [id number] [place] [address] [place] Bilirubin [Mass/Vol] 0.3 mg/dL Normal 0.2-1.3 [facility] Comment on above: Order Comment: Speci men Type: BLOOD SPECIMENOrdering Facility: [facility] Address: [address] [place] [address] Performed By: #### 2 4323-8 ####[facility] TERESA MILLTOWNCLIA [id number] [place] [address] [place] Calcium [Mass/Vol] 9.6 mg/dL Normal 8.5-10.2 [facility] Comment on above: Order Comment: Speci men Type: BLOOD SPECIMENOrdering Facility: [facility] Address: [address] [place] [address] Performed By: #### 2 4323-8 ####[facility] MILLTOWNCLIA [id number] [place] [address] [place] Chloride [Moles/Vol] 105 mmol/L Normal 98-107 [facility] Comment on above: Order Comment: Speci men Type: BLOOD SPECIMENOrdering Facility: [facility] Address: [address] [place] [address] Performed By: #### 2 4323-8 ####[facility] MILLWNCLIA [id number] [place] [address] [place] CO2 [Moles/Vol] 28 mmol/L Normal 22-30 [facility] Comment on above: Order Comment: Speci men Type: BLOOD SPECIMENOrdering Facility: [facility] Address: [address] [place] [address] Performed By: #### 2 4323-8 ####[facility] MILLTOWNCLIA [id number] [place] [address] [place] Creatinine [Mass/Vol] 0.91 mg/dL Normal 0.58-0.96 [facility] Comment on above: Order Comment: Speci men Type: BLOOD SPECIMENOrdering Facility: [facility] Address: [address] [place] [address] Performed By: #### 2 4323-8 ####[facility] MILLWNCLIA [id number] [place] [address] [place] Creatinine and Glomerular filtration rate.predicted panel (S/P/Bld) 62 mL/min/1.73m??? Normal >=60 [facility] Comment on above: Order Comment: Caleb bradley Type: BLOOD SPECIMENOrdering Facility: [facility] Address: [address] [place] [address] Result Comment: Lashonda mated Glomerular Filtration Rate (eGFR) is calculated using the 2020 CKD-EPI creatinine equation. This equation utilizes serum creatinine, sex, and age as parameters. The creatinine assay has traceable calibration to isotope dilution-mass spectrometry. Refer to KDIGO guidelines for clinical interpretation. In patients with unstable renal function, e.g. those with acute kidney injury, the eGFR may not accurately reflect actual GFR. Performed By: #### 2 4323-8 ####[facility] [id number] [place] [address] [place] Glucose [Mass/Vol] 88 mg/dL Normal 74-99 [facility] Comment on above: Order Comment: Caleb bradley Type: BLOOD SPECIMENOrdering Facility: [facility] Address: [address] [place] [address] Result Comment: The [place] Diabetes Association (ADA) provides guidance for cutoff values for fasting glucose and random glucose. The ADA defines fasting as no caloric intake for at least 8 hours. Fasting plasma glucose results between 100 to 125 mg/dL indicate increased risk for diabetes (prediabetes).Fasting plasma glucose results greater than or equal to 126 mg/dL meet the criteria for diagnosis of diabetes. In the absence of unequivocal hyperglycemia, results should be confirmed by repeat testing. In a patient with classic symptoms of hyperglycemia or hyperglycemic crisis, random plasma glucose results greater than or equal to 200 mg/dL meet the criteria for diagnosis of diabetes.Reference: Standards of Medical Care in Diabetes 2016, [place] [employer]. Diabetes Care. 2016.39(Suppl 1). Performed By: #### 2 4323-8 ####[facility] [id number] [place] [address] [place] Potassium [Moles/Vol] 4.2 mmol/L Normal 3.7-5.1 [facility] Comment on above: Order Comment: Speci men Type: BLOOD SPECIMENOrdering Facility: [facility] Address: [address] [place] [address] Performed By: #### 2 4323-8 ####[facility] SUNNYWNCLIA [id number] [place] [address] [place] Protein [Mass/Vol] 6.0 g/dL Low 6.3-8.0 [facility] Comment on above: Order Comment: Speci men Type: BLOOD SPECIMENOrdering Facility: [facility] Address: [address] [place] [address] Performed By: #### 2 4323-8 ####[facility] CENTERNCLIA [id number] [place] [address] [place] Sodium [Moles/Vol] 143 mmol/L Normal 136-144 [facility] Comment on above: Order Comment: Speci men Type: BLOOD SPECIMENOrdering Facility: [facility] Address: [address] [place] [address] Performed By: #### 2 4323-8 ####[facility]ENTERNCLIA [id number] [place] [address] [place] Urea nitrogen [Mass/Vol] 19 mg/dL Normal 7-21 [facility] Comment on above: Order Comment: Speci men Type: BLOOD SPECIMENOrdering Facility: [facility] Address: [address] [place] [address] Performed By: #### 2 4323-8 ####[facility] CENTERNCLIA [id number] [place] [address] [place] IMMUNOFIXATION SCREEN, SERUM on 10-28-2024 INTERPRETATION (MPA) Normal [facility] Comment on above: Order Comment: Speci men Type: BLOOD SPECIMENOrdering Facility: [facility] Address: [address] [place] [address] Performed By: #### I FESC ####[facility] LABIA [id number] [address], [facility] MPA RESULT A poorly defined reg ion of restricted mobility is present that may represent an M protein. Abnormal No M protein is identified. [facility] Comment on above: Order Comment: Speci men Type: BLOOD SPECIMENOrdering Facility: [facility] Address: [address] [place] [address] Performed By: #### I FESC ####[facility] LABIA [id number] [address] OF [facility] ([facility]) Reviewed by Fadi Moreno MD, Ph.D ([id number]) Normal [facility] Comment on above: Order Comment: Speci men Type: BLOOD SPECIMENOrdering Facility: [facility] Address: [address] [place] [address] Performed By: #### I FESC ####[facility] LABIA [id number] [address], [facility] [place] IMMUNOGLOBULINS,IGG,IGA,IGMo n 10-28-2024 IgA [Mass/Vol] 66 mg/dL Low 70-400 [facility] Comment on above: Order Comment: Speci men Type: BLOOD SPECIMENOrdering Facility: [facility] Address: [address] [place] [address] Performed By: #### S ERIMM ####[facility] LABIA [id number] [place] [id number] [place] IgG [Mass/Vol] 663 mg/dL Low 700-1600 [facility] Comment on above: Order Comment: Speci men Type: BLOOD SPECIMENOrdering Facility: [facility] Address: [address] [place] [address] Performed By: #### S ERIMM ####[facility] LABIA [id number] [place] [id number] [place] IgM [Mass/Vol] 30 mg/dL Low 40-230 [facility] Comment on above: Order Comment: Speci men Type: BLOOD SPECIMENOrdering Facility: [facility] Address: [address] [place] [address] Performed By: #### S DARYL ####[facility] LABCLIA [id number] [place] [address] [place] KAPPA/MCINTOSH,FREE,SERon 2024 Immunoglobulin light chains.kappa.free (S) [Mass/Vol] 12.3 mg/L Normal 3.3-19.4 [facility] Comment on above: Order Comment: Speci men Type: BLOOD SPECIMENOrdering Facility: [facility] Address: [address] [place] [address] Result Comment: Rare ly, increased serum free light chains levels may not be detected or accurately quantified due to prozone phenomenon or in high viscosity samples using this immunoturbidimetric assay. Correlation with other laboratory results and clinical findings is recommended.The [place] Free Light Chain was performed using the Binding Site Optilite immunoturbidimetric method. Result obtained with different assay methods or kits cannot be used interchangeably. Performed By: #### K LFRS ####[facility] LABCLIA [id number] [place] [address] [place] Immunoglobulin light chains.kappa/Immunoglob ulin light chains.lambda (S) [Mass ratio] 0.81 Normal 0.26-1.65 [facility] Comment on above: Order Comment: Speci men Type: BLOOD SPECIMENOrdering Facility: [facility] Address: [address] [place] [address] Performed By: #### K LFRS ####[facility] LABCLIA [id number] [place] [address] [place] Immunoglobulin light chains.lambda.free [Mass/Vol] 15.2 mg/L Normal 5.7-26.3 [facility] Comment on above: Order Comment: Speci men Type: BLOOD SPECIMENOrdering Facility: [facility] Address: [address] [place] [address] Result Comment: Rare ly, increased serum free light chains levels may not be detected or accurately quantified due to prozone phenomenon or in high viscosity samples using this immunoturbidimetric assay. Correlation with other laboratory results and clinical findings is recommended.The [place] Free Light Chain was performed using the Binding Site Optilite immunoturbidimetric method. Result obtained with different assay methods or kits cannot be used interchangeably. Performed By: #### K LFRS ####[facility] LABIA [id number] [place] [address] [place] PROTEIN ELECTROPHORESIS SERU M (P)on 10-28-2024 Albumin [Mass/Vol] 3.99 g/dL Normal 3.43-5.41 [facility] Comment on above: Order Comment: Speci men Type: BLOOD SPECIMENOrdering Facility: [facility] Address: [address] [place] [address] Performed By: #### L [id number] ####[facility] LABIA [id number] [place] [address] [place] Alpha 1 globulin Elph [Mass/Vol] 0.26 g/dL Normal 0.18-0.43 [facility] Comment on above: Order Comment: Speci men Type: BLOOD SPECIMENOrdering Facility: [facility] Address: [address] [place] [address] Performed By: #### L [id number] ####[facility] LABIA [id number] [place] [address] [place] Alpha 2 globulin Elph [Mass/Vol] 0.53 g/dL Normal 0.42-0.98 [facility] Comment on above: Order Comment: Speci men Type: BLOOD SPECIMENOrdering Facility: [facility] Address: [address] [place] [address] Performed By: #### L [id number] ####[facility] LABIA [id number] [place] [address] [place] Beta globulin Elph [Mass/Vol] 0.57 g/dL Low 0.61-1.17 [facility] Comment on above: Order Comment: Speci men Type: BLOOD SPECIMENOrdering Facility: [facility] Address: [address] [place] [address] Performed By: #### L [id number] ####[facility] LABCLIA [id number] [place] [address] [place] Gamma globulin Elph [Mass/Vol] 0.55 g/dL Normal 0.53-1.51 [facility] Comment on above: Order Comment: Speci men Type: BLOOD SPECIMENOrdering Facility: [facility] Address: [address] [place] [address] Performed By: #### L [id number] ####[facility] LABCLIA [id number] [address] [place] INTERPRETATION COMMENT FOR PROTEIN ELECTROPHORESIS Normal [facility] Comment on above: Order Comment: Speci men Type: BLOOD SPECIMENOrdering Facility: [facility] Address: [address] [place] [address] Performed By: #### L [id number] ####[facility] LABCLIA [id number] [place] [address] [place] M-PROTEIN LOCATION Normal [facility] Comment on above: Order Comment: Speci men Type: BLOOD SPECIMENOrdering Facility: [facility] Address: [address] [place] [address] Result Comment: Not Applicable. Performed By: #### L [id number] ####[facility] LABCLIA [id number] [place] [address] [place] Protein Fractions [Interp] An atypical region of restricted mobility is identified on protein electrophoresis. Abnormal No definitive M protein is identified on protein electrophore sis. [facility] Comment on above: Order Comment: Speci men Type: BLOOD SPECIMENOrdering Facility: [facility] Address: [address] [place] [address] Performed By: #### L [id number] ####[facility] LABIA [id number] [place] [address] [place] Protein.monoclonal Elph [Mass/Vol] 0.00 g/dL Normal <=0.00 [facility] Comment on above: Order Comment: Speci men Type: BLOOD SPECIMENOrdering Facility: [facility] Address: [address] [place] [address] Performed By: #### L [id number] ####[facility] LABIA [id number] [place] [address] [place] SPE STAFF REVIEW Reviewed by Fadi Moreno MD, Ph.D ([id number]) Normal [facility] Comment on above: Order Comment: Speci men Type: BLOOD SPECIMENOrdering Facility: [facility] Address: [address] [place] [address] Performed By: #### L [id number] ####[facility] HOSPITALIA [id number] [place] [id number] [place] Prot SerPl-mCncon 10-28-2024 Protein [Mass/Vol] 5.9 g/dL Low 6.3-8.0 [facility] Comment on above: Order Comment: Speci men Type: BLOOD SPECIMENOrdering Facility: [facility] Address: [address] [place] [address] Performed By: #### 2 885-2 ####[facility] HOSPITALIA [id number] [place] [id number] [place] CNOVSPon 10-08-2024 CNOVSP Normal [facility] CBC W Auto Differential pane l (Bld)on 10-04-2024 Basophils (Bld) [#/Vol] 10*3/uL Normal <0.11 C [facility] Comment on above: Order Comment: Speci men Type: BLOOD SPECIMENOrdering Facility: [facility] Address: [address] [place] [address] Performed By: #### 5 7021-8 ####[facility]ENTERNCLIA [id number] [place] [address] [place] Basophils/100 WBC (Bld) 0.6 % Normal C [facility] Comment on above: Order Comment: Speci men Type: BLOOD SPECIMENOrdering Facility: [facility] Address: [address] [place] [address] Performed By: #### 5 7021-8 ####[facility]PITALLIA [id number] [place] [address] [place] Differential cell count method Nom (Bld) Auto Normal [facility] Comment on above: Order Comment: Speci men Type: BLOOD SPECIMENOrdering Facility: [facility] Address: [address] [place] [address] Performed By: #### 5 7021-8 ####[facility]ITALA [id number] [place] [address] [place] Eosinophils (Bld) [#/Vol] 0.04 10*3/uL Normal <0.46 [facility] Comment on above: Order Comment: Speci men Type: BLOOD SPECIMENOrdering Facility: [facility] Address: [address] [place] [address] Performed By: #### 5 7021-8 ####[facility]OSPITALLIA [id number] [place] [address] [place] Eosinophils/100 WBC (Bld) 1.2 % Normal [facility] Comment on above: Order Comment: Speci men Type: BLOOD SPECIMENOrdering Facility: [facility] Address: [address] [place] [address] Performed By: #### 5 7021-8 ####[facility]ENTERNCLIA [id number] [place] [address] [place] Erythrocyte distribution width (RBC) [Ratio] 15.0 % Normal 11.5-15.0 [facility] Comment on above: Order Comment: Speci men Type: BLOOD SPECIMENOrdering Facility: [facility] Address: [address] [place] [address] Performed By: #### 5 7021-8 ####[facility]ENTERNCMOUNT[facility] [id number] [place] [address] [place] Hematocrit (Bld) [Volume fraction] 37.2 % Normal 36.0-46.0 [facility] Comment on above: Order Comment: Speci men Type: BLOOD SPECIMENOrdering Facility: [facility] Address: [address] [place] [address] Performed By: #### 5 7021-8 ####[facility]ERNCMOUNT[facility] [id number] [place] [address] [place] Hemoglobin (Bld) [Mass/Vol] 11.9 g/dL Normal 11.5-15.5 [facility] Comment on above: Order Comment: Speci men Type: BLOOD SPECIMENOrdering Facility: [facility] Address: [address] [place] [address] Performed By: #### 5 7021-8 ####[facility]OS[facility]ITALA [id number] [place] [address] [place] Immature granulocytes (Bld) [#/Vol] 10*3/uL Normal <0.10 [facility] Comment on above: Order Comment: Speci men Type: BLOOD SPECIMENOrdering Facility: [facility] Address: [address] [place] [address] Performed By: #### 5 7021-8 ####[facility]ENTERNCLI [id number] [place] [address] [place] Immature granulocytes/100 WBC (Bld) 0.6 % Normal [facility] Comment on above: Order Comment: Speci men Type: BLOOD SPECIMENOrdering Facility: [facility] Address: [address] [place] [address] Performed By: #### 5 7021-8 ####[facility] SUNNYABENAA [id number] [place] [address] [place] Lymphocytes (Bld) [#/Vol] 0.95 10*3/uL Low 1.00-4.00 [facility] Comment on above: Order Comment: Speci men Type: BLOOD SPECIMENOrdering Facility: [facility] Address: [address] [place] [address] Performed By: #### 5 7021-8 ####[facility] [id number] [place] [address] [place] Lymphocytes/100 WBC (Bld) 27.5 % Normal [facility] Comment on above: Order Comment: Speci men Type: BLOOD SPECIMENOrdering Facility: [facility] Address: [address] [place] [address] Performed By: #### 5 7021-8 ####[facility] CENTERDANIELLAA [id number] [place] [address] [place] MCH (RBC) [Entitic mass] 29.7 pg Normal 26.0-34.0 [facility] Comment on above: Order Comment: Speci men Type: BLOOD SPECIMENOrdering Facility: [facility] Address: [address] [place] [address] Performed By: #### 5 7021-8 ####[facility]ENTERNCLIA [id number] [place] [address] [place] MCHC (RBC) [Mass/Vol] 32.0 g/dL Normal 30.5-36.0 [facility] Comment on above: Order Comment: Speci men Type: BLOOD SPECIMENOrdering Facility: [facility] Address: [address] [place] [address] Performed By: #### 5 7021-8 ####[facility] SUNNYWNCLIA [id number] [place] [address] [place] MCV (RBC) [Entitic vol] 92.8 fL Normal 80.0-100.0 C [facility] Comment on above: Order Comment: Speci men Type: BLOOD SPECIMENOrdering Facility: [facility] Address: [address] [place] [address] Performed By: #### 5 7021-8 ####[facility] HOSPITALLIA [id number] [place] [address] [place] Monocytes (Bld) [#/Vol] 0.33 10*3/uL Normal <0.87 [facility] Comment on above: Order Comment: Speci men Type: BLOOD SPECIMENOrdering Facility: [facility] Address: [address] [place] [address] Performed By: #### 5 7021-8 ####[facility]ITALA [id number] [place] [address] [place] Monocytes/100 WBC (Bld) 9.6 % Normal C [facility] Comment on above: Order Comment: Speci men Type: BLOOD SPECIMENOrdering Facility: [facility] Address: [address] [place] [address] Performed By: #### 5 7021-8 ####[facility]OSPITALLIA [id number] [place] [address] [place] Neutrophils (Bld) [#/Vol] 2.09 10*3/uL Normal 1.45-7.50 [facility] Comment on above: Order Comment: Speci men Type: BLOOD SPECIMENOrdering Facility: [facility] Address: [address] [place] [address] Performed By: #### 5 7021-8 ####[facility]ENTERNCLI [id number] [place] [address] [place] Neutrophils/100 WBC (Bld) 60.5 % Normal [facility] Comment on above: Order Comment: Speci men Type: BLOOD SPECIMENOrdering Facility: [facility] Address: [address] [place] [address] Performed By: #### 5 7021-8 ####[facility]ENTERNCMOUNT[facility] [id number] [place] [address] [place] Nucleated RBC (Bld) [#/Vol] 10*3/uL Normal <0.01 [facility] Comment on above: Order Comment: Speci men Type: BLOOD SPECIMENOrdering Facility: [facility] Address: [address] [place] [address] Performed By: #### 5 7021-8 ####[facility]ERNCMOUNT[facility] [id number] [place] [address] [place] Nucleated RBC/100 WBC (Bld) [Ratio] 0.0 /100 WBC Normal [facility] Comment on above: Order Comment: Speci men Type: BLOOD SPECIMENOrdering Facility: [facility] Address: [address] [place] [address] Performed By: #### 5 7021-8 ####[facility] [id number] [place] [address] [place] Platelet mean volume (Bld) [Entitic vol] 11.3 fL Normal 9.0-12.7 [facility] Comment on above: Order Comment: Speci men Type: BLOOD SPECIMENOrdering Facility: [facility] Address: [address] [place] [address] Performed By: #### 5 7021-8 ####[facility]ENTERNCMOUNT[facility] [id number] [place] [address] [place] Platelets (Bld) [#/Vol] 84 10*3/uL Low 150-400 C [facility] Comment on above: Order Comment: Speci men Type: BLOOD SPECIMENOrdering Facility: [facility] Address: [address] [place] [address] Result Comment: No c lot detected. Performed By: #### 5 7021-8 ####[facility] SUNNYWNCLIA [id number] [place] [address] [place] RBC (Bld) [#/Vol] 4.01 10*6/uL Normal 3.90-5.20 [facility] Comment on above: Order Comment: Speci men Type: BLOOD SPECIMENOrdering Facility: [facility] Address: [address] [place] [address] Performed By: #### 5 7021-8 ####[facility]ENTERNCLIA [id number] [place] [address] [place] WBC (Bld) [#/Vol] 3.45 10*3/uL Low 3.70-11.00 [facility] Comment on above: Order Comment: Speci men Type: BLOOD SPECIMENOrdering Facility: [facility] Address: [address] [place] [address] Performed By: #### 5 7021-8 ####[facility]ENTERNCLIA [id number] [place] [address] [place] Comprehensive metabolic 2000 panelon 10-04-2024 Albumin [Mass/Vol] 4.2 g/dL Normal 3.9-4.9 [facility] Comment on above: Order Comment: Speci men Type: BLOOD SPECIMENOrdering Facility: [facility] Address: [address] [place] [address] Performed By: #### 2 4323-8 ####[facility]ENTERNCLIA [id number] [place] [address] [place] ALP [Catalytic activity/Vol] 43 U/L Normal 34-123 [facility] Comment on above: Order Comment: Speci men Type: BLOOD SPECIMENOrdering Facility: [facility] Address: [address] [place] [address] Performed By: #### 2 4323-8 ####[facility] TERESA MILLTOWNCLIA [id number] [place] [address] [place] ALT [Catalytic activity/Vol] 27 U/L Normal 7-38 [facility] Comment on above: Order Comment: Speci men Type: BLOOD SPECIMENOrdering Facility: [facility] Address: [address] [place] [address] Performed By: #### 2 4323-8 ####[facility] MILLTOWNCLIA [id number] [place] [address] [place] Anion gap [Moles/Vol] 7 mmol/L Low 8-15 [facility] Comment on above: Order Comment: Speci men Type: BLOOD SPECIMENOrdering Facility: [facility] Address: [address] [place] [address] Performed By: #### 2 4323-8 ####[facility]ENTERNCLIA [id number] [place] [address] [place] AST [Catalytic activity/Vol] 18 U/L Normal 13-35 [facility] Comment on above: Order Comment: Speci men Type: BLOOD SPECIMENOrdering Facility: [facility] Address: [address] [place] [address] Performed By: #### 2 4323-8 ####[facility] MILLTOWNCLIA [id number] [place] [address] [place] Bilirubin [Mass/Vol] 0.4 mg/dL Normal 0.2-1.3 [facility] Comment on above: Order Comment: Speci men Type: BLOOD SPECIMENOrdering Facility: [facility] Address: [address] [place] [address] Performed By: #### 2 4323-8 ####[facility] MILLWNCLIA [id number] [place] [address] [place] Calcium [Mass/Vol] 8.8 mg/dL Normal 8.5-10.2 [facility] Comment on above: Order Comment: Speci men Type: BLOOD SPECIMENOrdering Facility: [facility] Address: [address] [place] [address] Performed By: #### 2 4323-8 ####[facility] MILLTOWNCLIA [id number] [place] [address] [place] Chloride [Moles/Vol] 107 mmol/L Normal 98-107 [facility] Comment on above: Order Comment: Speci men Type: BLOOD SPECIMENOrdering Facility: [facility] Address: [address] [place] [address] Performed By: #### 2 4323-8 ####[facility] CENTERMEHREENLIRoc [id number] [place] [address] [place] CO2 [Moles/Vol] 28 mmol/L Normal 22-30 [facility] Comment on above: Order Comment: Speci men Type: BLOOD SPECIMENOrdering Facility: [facility] Address: [address] [place] [address] Performed By: #### 2 4323-8 ####[facility] HOSPITALWNCLIA [id number] [place] [address] [place] Creatinine [Mass/Vol] 0.80 mg/dL Normal 0.58-0.96 [facility] Comment on above: Order Comment: Speci men Type: BLOOD SPECIMENOrdering Facility: [facility] Address: [address] [place] [address] Performed By: #### 2 4323-8 ####[facility] MILLEAST WORCESTERNCLIA [id number] [place] [address] [place] Creatinine and Glomerular filtration rate.predicted panel (S/P/Bld) 72 mL/min/1.73m??? Normal >=60 [facility] Comment on above: Order Comment: Caleb bradley Type: BLOOD SPECIMENOrdering Facility: [facility] Address: [address] [place] [address] Result Comment: Lashonda mated Glomerular Filtration Rate (eGFR) is calculated using the 2020 CKD-EPI creatinine equation. This equation utilizes serum creatinine, sex, and age as parameters. The creatinine assay has traceable calibration to isotope dilution-mass spectrometry. Refer to KDIGO guidelines for clinical interpretation. In patients with unstable renal function, e.g. those with acute kidney injury, the eGFR may not accurately reflect actual GFR. Performed By: #### 2 4323-8 ####[facility] [id number] [place] [address] [place] Glucose [Mass/Vol] 118 mg/dL High 74-99 [facility] Comment on above: Order Comment: Caleb bradley Type: BLOOD SPECIMENOrdering Facility: [facility] Address: [address] [place] [address] Result Comment: The [place] [employer] (ADA) provides guidance for cutoff values for fasting glucose and random glucose. The ADA defines fasting as no caloric intake for at least 8 hours. Fasting plasma glucose results between 100 to 125 mg/dL indicate increased risk for diabetes (prediabetes).Fasting plasma glucose results greater than or equal to 126 mg/dL meet the criteria for diagnosis of diabetes. In the absence of unequivocal hyperglycemia, results should be confirmed by repeat testing. In a patient with classic symptoms of hyperglycemia or hyperglycemic crisis, random plasma glucose results greater than or equal to 200 mg/dL meet the criteria for diagnosis of diabetes.Reference: Standards of Medical Care in Diabetes 2016, [place] [employer]. Diabetes Care. 2016.39(Suppl 1). Performed By: #### 2 4323-8 ####[facility] [id number] [place] [address] [place] Potassium [Moles/Vol] 4.6 mmol/L Normal 3.7-5.1 [facility] Comment on above: Order Comment: Caleb bradley Type: BLOOD SPECIMENOrdering Facility: [facility] Address: [address] [place] [address] Performed By: #### 2 4323-8 ####[facility] HOSPITALWNCLIA [id number] [place] [address] [place] Protein [Mass/Vol] 6.1 g/dL Low 6.3-8.0 [facility] Comment on above: Order Comment: Speci men Type: BLOOD SPECIMENOrdering Facility: [facility] Address: [address] [place] [address] Performed By: #### 2 4323-8 ####[facility]ENTERNCLIA [id number] [place] [address] [place] Sodium [Moles/Vol] 142 mmol/L Normal 136-144 [facility] Comment on above: Order Comment: Speci men Type: BLOOD SPECIMENOrdering Facility: [facility] Address: [address] [place] [address] Performed By: #### 2 4323-8 ####[facility] HOSPITALLIA [id number] [place] [address] [place] Urea nitrogen [Mass/Vol] 20 mg/dL Normal 7-21 [facility] Comment on above: Order Comment: Speci men Type: BLOOD SPECIMENOrdering Facility: [facility] Address: [address] [place] [address] Performed By: #### 2 4323-8 ####[facility]ENTERNCLIA [id number] [place] [address] [place] IMMUNOFIXATION SCREEN, SERUM on 10-04-2024 INTERPRETATION (MPA) Normal [facility] Comment on above: Order Comment: Speci men Type: BLOOD SPECIMENOrdering Facility: [facility] Address: [address] [place] [address] Performed By: #### I [facility] ####[facility] LABCLIA [id number] [address] [address] [facility] MPA RESULT No M protein is identified. Normal No M protein is identified. [facility] Comment on above: Order Comment: Speci men Type: BLOOD SPECIMENOrdering Facility: [facility] Address: [address] [place] [address] Performed By: #### I FESC ####[facility] LABCLIA [id number] [address] STAFF REVIEW (MPA) Reviewed by Juju Thomas M.D. Normal [facility] Comment on above: Order Comment: Speci men Type: BLOOD SPECIMENOrdering Facility: [facility] Address: [address] [place] [address] Performed By: #### I FES ####[facility] LABIA [id number] [place] [address] [place] IMMUNOGLOBULINS,IGG,IGA,IGMo n 10-04-2024 IgA [Mass/Vol] 66 mg/dL Low 70-400 [facility] Comment on above: Order Comment: Speci men Type: BLOOD SPECIMENOrdering Facility: [facility] Address: [address] [place] [address] Performed By: #### S ERIMM ####[facility] LABCLIA [id number] [place] [id number] [place] IgG [Mass/Vol] 678 mg/dL Low 700-1600 [facility] Comment on above: Order Comment: Speci men Type: BLOOD SPECIMENOrdering Facility: [facility] Address: [address] [place] [address] Performed By: #### S ERIMM ####[facility] LABCLIA [id number] [place] [id number] [place] IgM [Mass/Vol] 33 mg/dL Low 40-230 [facility] Comment on above: Order Comment: Speci men Type: BLOOD SPECIMENOrdering Facility: [facility] Address: [address] [place] [address] Performed By: #### S ERIMM ####[facility] HOSPITALIA [id number] [place] [address] [place] KAPPA/MCINTOSH,FREE,SERon 2024 Immunoglobulin light chains.kappa.free (S) [Mass/Vol] 14.1 mg/L Normal 3.3-19.4 [facility] Comment on above: Order Comment: Speci men Type: BLOOD SPECIMENOrdering Facility: [facility] Address: [address] [place] [address] Result Comment: Rare ly, increased serum free light chains levels may not be detected or accurately quantified due to prozone phenomenon or in high viscosity samples using this immunoturbidimetric assay. Correlation with other laboratory results and clinical findings is recommended.The [place] Free Light Chain was performed using the Binding Site Optilite immunoturbidimetric method. Result obtained with different assay methods or kits cannot be used interchangeably. Performed By: #### K LFRS ####[facility] LABIA [id number] [place] [address] [place] Immunoglobulin light chains.kappa/Immunoglob ulin light chains.lambda (S) [Mass ratio] 0.92 Normal 0.26-1.65 [facility] Comment on above: Order Comment: Speci [facility] Type: BLOOD SPECIMENOrdering Facility: [facility] Address: [address] [place] [address] Performed By: #### K LFRS ####[facility] HOSPITALIA [id number] [place] [address] [place] Immunoglobulin light chains.lambda.free [Mass/Vol] 15.3 mg/L Normal 5.7-26.3 [facility] Comment on above: Order Comment: Speci men Type: BLOOD SPECIMENOrdering Facility: [facility] Address: [address] [place] [address] Result Comment: Rare ly, increased serum free light chains levels may not be detected or accurately quantified due to prozone phenomenon or in high viscosity samples using this immunoturbidimetric assay. Correlation with other laboratory results and clinical findings is recommended.The [place] Free Light Chain was performed using the Binding Site Optilite immunoturbidimetric method. Result obtained with different assay methods or kits cannot be used interchangeably. Performed By: #### K LFRS ####[facility] [id number] [place] [address] [place] PROTEIN ELECTROPHORESIS SERU M (P)on 10-04-2024 Albumin [Mass/Vol] 4.02 g/dL Normal 3.43-5.41 [facility] Comment on above: Order Comment: Speci men Type: BLOOD SPECIMENOrdering Facility: [facility] Address: [address] [place] [address] Performed By: #### L [id number] ####[facility] [id number] [place] [address] [place] Alpha 1 globulin Elph [Mass/Vol] 0.26 g/dL Normal 0.18-0.43 [facility] Comment on above: Order Comment: Speci men Type: BLOOD SPECIMENOrdering Facility: [facility] Address: [address] [place] [address] Performed By: #### L [id number] ####[facility] HOSPITALIA [id number] [place] [address] [place] Alpha 2 globulin Elph [Mass/Vol] 0.51 g/dL Normal 0.42-0.98 [facility] Comment on above: Order Comment: Speci men Type: BLOOD SPECIMENOrdering Facility: [facility] Address: [address] [place] [address] Performed By: #### L [id number] ####[facility] LABIA [id number] [place] [address] [place] Beta globulin Elph [Mass/Vol] 0.55 g/dL Low 0.61-1.17 [facility] Comment on above: Order Comment: Speci men Type: BLOOD SPECIMENOrdering Facility: [facility] Address: [address] [place] [address] Performed By: #### L [id number] ####[facility] LABCLIA [id number] [place] [address] [place] Gamma globulin Elph [Mass/Vol] 0.55 g/dL Normal 0.53-1.51 [facility] Comment on above: Order Comment: Speci men Type: BLOOD SPECIMENOrdering Facility: [facility] Address: [address] [place] [address] Performed By: #### L [id number] ####[facility] LABCLIA [id number] [place] [address] [place] M-PROTEIN LOCATION Normal [facility] Comment on above: Order Comment: Speci men Type: BLOOD SPECIMENOrdering Facility: [facility] Address: [address] [place] [address] Result Comment: Not Applicable. Performed By: #### L [id number] ####[facility] LABCLIA [id number] [place] [address] [place] Protein Fractions [Interp] No definitive M protein is identified on protein electrophoresis. Normal No definitive M protein is identified on protein electrophore sis. [facility] Comment on above: Order Comment: Speci men Type: BLOOD SPECIMENOrdering Facility: [facility] Address: [address] [place] [address] Performed By: #### L [id number] ####[facility] LABCLIA [id number] [place] [address] [place] Protein.monoclonal Elph [Mass/Vol] 0.00 g/dL Normal <=0.00 [facility] Comment on above: Order Comment: Speci men Type: BLOOD SPECIMENOrdering Facility: [facility] Address: [address] [place] [address] Performed By: #### L [id number] ####[facility] LABCLIA [id number] [place] [address] [place] SPE STAFF REVIEW Reviewed by Aleyda Rogel MD Normal [facility] Comment on above: Order Comment: Speci men Type: BLOOD SPECIMENOrdering Facility: [facility] Address: [address] [place] [address] Performed By: #### L [id number] ####[facility] [id number] [place] [address] [place] Prot SerPl-mCncon 10-04-2024 Protein [Mass/Vol] 5.9 g/dL Low 6.3-8.0 [facility] Comment on above: Order Comment: Speci men Type: BLOOD SPECIMENOrdering Facility: [facility] Address: [address] [place] [address] Performed By: #### 2 885-2 ####[facility] [id number] [place] [address] [place] CNPNon 09-20-2024 CNPN Normal [facility] CNPNon 09-16-2024 CNPN Normal [facility] CNOVon 09-11-2024 CNOV Normal [facility] CNOVSPon 09-06-2024 CNOVSP Normal [facility] CBC W Auto Differential pane l (Bld)on 09-02-2024 Basophils (Bld) [#/Vol] NINF [facility] Basophils/100 WBC (Bld) 0.6 % [facility] Differential cell count method Nom (Bld) Auto [facility] Eosinophils (Bld) [#/Vol] 0.08 10*3/uL NINF [facility] Eosinophils/100 WBC (Bld) 2.2 % [facility] Erythrocyte distribution width (RBC) [Ratio] 15.7 % High 11.5 - 15.0 % [facility] Hematocrit (Bld) [Volume fraction] 36.8 % 36.0 - 46.0 % [facility] Hemoglobin (Bld) [Mass/Vol] 11.9 g/dL 11.5 - 15.5 g/dL [facility] Immature granulocytes (Bld) [#/Vol] NINF [facility] Immature granulocytes/100 WBC (Bld) 0.3 % [facility] Interpretation and review of laboratory results Abnormal [facility] Lymphocytes (Bld) [#/Vol] 0.92 10*3/uL Low [facility] Lymphocytes/100 WBC (Bld) 25.5 % [facility] MCH (RBC) [Entitic mass] 29.6 pg 26.0 - 34.0 pg [facility] MCHC (RBC) [Mass/Vol] 32.3 g/dL 30.5 - 36.0 g/dL [facility] MCV (RBC) [Entitic vol] 91.5 fL 80.0 - 100.0 fL [facility] Monocytes (Bld) [#/Vol] 0.23 10*3/uL [facility] Monocytes/100 WBC (Bld) 6.4 % C [facility] Neutrophils (Bld) [#/Vol] 2.35 10*3/uL [facility] Neutrophils/100 WBC (Bld) 65 % [facility] Nucleated RBC (Bld) [#/Vol] [facility] Nucleated RBC/100 WBC (Bld) [Ratio] 0 % /100 WBC [facility] Platelet mean volume (Bld) [Entitic vol] 11.7 fL 9.0 - 12.7 fL [facility] Platelets (Bld) [#/Vol] 106 10*3/uL Low [facility] RBC (Bld) [#/Vol] 4.02 10*6/uL 3.90 - 5.2 0 m/uL [facility] WBC (Bld) [#/Vol] 3.61 10*3/uL Low [facility] Basophils (Bld) [#/Vol] 10*3/uL Normal <0.11 C [facility] Comment on above: Order Comment: Speci men Type: BLOOD SPECIMENOrdering Facility: [facility] Address: [address] [place] [address] Performed By: #### 5 7021-8 ####[facility] TERESA [facility]GSTEF[facility]IE [id number] [place] [address] [place] Basophils/100 WBC (Bld) 0.6 % Normal C [facility] Comment on above: Order Comment: Speci men Type: BLOOD SPECIMENOrdering Facility: [facility] Address: [address] [place] [address] Performed By: #### 5 7021-8 ####[facility] [id number] [place] [address] [place] Differential cell count method Nom (Bld) Auto Normal [facility] Comment on above: Order Comment: Speci men Type: BLOOD SPECIMENOrdering Facility: [facility] Address: [address] [place] [address] Performed By: #### 5 7021-8 ####[facility] [id number] [place] [address] [place] Eosinophils (Bld) [#/Vol] 0.08 10*3/uL Normal <0.46 [facility] Comment on above: Order Comment: Speci men Type: BLOOD SPECIMENOrdering Facility: [facility] Address: [address] [place] [address] Performed By: #### 5 7021-8 ####[facility] [id number] [place] [address] [place] Eosinophils/100 WBC (Bld) 2.2 % Normal [facility] Comment on above: Order Comment: Speci men Type: BLOOD SPECIMENOrdering Facility: [facility] Address: [address] [place] [address] Performed By: #### 5 7021-8 ####[facility] [id number] [place] [address] [place] Erythrocyte distribution width (RBC) [Ratio] 15.7 % High 11.5-15.0 [facility] Comment on above: Order Comment: Speci men Type: BLOOD SPECIMENOrdering Facility: [facility] Address: [address] [place] [address] Performed By: #### 5 7021-8 ####[facility] MILLWNCLIA [id number] [place] [address] [place] Hematocrit (Bld) [Volume fraction] 36.8 % Normal 36.0-46.0 [facility] Comment on above: Order Comment: Speci men Type: BLOOD SPECIMENOrdering Facility: [facility] Address: [address] [place] [address] Performed By: #### 5 7021-8 ####[facility]ALLIA [id number] [place] [address] [place] Hemoglobin (Bld) [Mass/Vol] 11.9 g/dL Normal 11.5-15.5 [facility] Comment on above: Order Comment: Speci men Type: BLOOD SPECIMENOrdering Facility: [facility] Address: [address] [place] [address] Performed By: #### 5 7021-8 ####[facility] [id number] [place] [address] [place] Immature granulocytes (Bld) [#/Vol] 10*3/uL Normal <0.10 [facility] Comment on above: Order Comment: Speci men Type: BLOOD SPECIMENOrdering Facility: [facility] Address: [address] [place] [address] Performed By: #### 5 7021-8 ####[facility]ALL[facility] [id number] [place] [address] [place] Immature granulocytes/100 WBC (Bld) 0.3 % Normal [facility] Comment on above: Order Comment: Speci men Type: BLOOD SPECIMENOrdering Facility: [facility] Address: [address] [place] [address] Performed By: #### 5 7021-8 ####[facility]ENTERNCLIA [id number] [place] [address] [place] Lymphocytes (Bld) [#/Vol] 0.92 10*3/uL Low 1.00-4.00 [facility] Comment on above: Order Comment: Speci men Type: BLOOD SPECIMENOrdering Facility: [facility] Address: [address] [place] [address] Performed By: #### 5 7021-8 ####[facility] [id number] [place] [address] [place] Lymphocytes/100 WBC (Bld) 25.5 % Normal [facility] Comment on above: Order Comment: Speci men Type: BLOOD SPECIMENOrdering Facility: [facility] Address: [address] [place] [address] Performed By: #### 5 7021-8 ####[facility] [id number] [place] [address] [place] MCH (RBC) [Entitic mass] 29.6 pg Normal 26.0-34.0 [facility] Comment on above: Order Comment: Speci men Type: BLOOD SPECIMENOrdering Facility: [facility] Address: [address] [place] [address] Performed By: #### 5 7021-8 ####[facility] [id number] [place] [address] [place] MCHC (RBC) [Mass/Vol] 32.3 g/dL Normal 30.5-36.0 [facility] Comment on above: Order Comment: Speci men Type: BLOOD SPECIMENOrdering Facility: [facility] Address: [address] [place] [address] Performed By: #### 5 7021-8 ####[facility] [id number] [address] [place] MCV (RBC) [Entitic vol] 91.5 fL Normal 80.0-100.0 C [facility] Comment on above: Order Comment: Speci men Type: BLOOD SPECIMENOrdering Facility: [facility] Address: [address] [place] [address] Performed By: #### 5 7021-8 ####[facility] [id number] [place] [address] [place] Monocytes (Bld) [#/Vol] 0.23 10*3/uL Normal <0.87 [facility] Comment on above: Order Comment: Speci men Type: BLOOD SPECIMENOrdering Facility: [facility] Address: [address] [place] [address] Performed By: #### 5 7021-8 ####[facility] [id number] [place] [address] [place] Monocytes/100 WBC (Bld) 6.4 % Normal [facility] Comment on above: Order Comment: Speci men Type: BLOOD SPECIMENOrdering Facility: [facility] Address: [address] [place] [address] Performed By: #### 5 7021-8 ####[facility] [id number] [place] [address] [place] Neutrophils (Bld) [#/Vol] 2.35 10*3/uL Normal 1.45-7.50 [facility] Comment on above: Order Comment: Speci men Type: BLOOD SPECIMENOrdering Facility: [facility] Address: [address] [place] [address] Performed By: #### 5 7021-8 ####[facility]ITALLIA [id number] [place] [address] [place] Neutrophils/100 WBC (Bld) 65.0 % Normal [facility] Comment on above: Order Comment: Speci men Type: BLOOD SPECIMENOrdering Facility: [facility] Address: [address] [place] [address] Performed By: #### 5 7021-8 ####[facility] SUNNYWMEHREENLIA [id number] [place] [address] [place] Nucleated RBC (Bld) [#/Vol] 10*3/uL Normal <0.01 [facility] Comment on above: Order Comment: Speci men Type: BLOOD SPECIMENOrdering Facility: [facility] Address: [address] [place] [address] Performed By: #### 5 7021-8 ####[facility] CENTERMEHREENLIA [id number] [place] [address] [place] Nucleated RBC/100 WBC (Bld) [Ratio] 0.0 /100 WBC Normal [facility] Comment on above: Order Comment: Speci men Type: BLOOD SPECIMENOrdering Facility: [facility] Address: [address] [place] [address] Performed By: #### 5 7021-8 ####[facility] [id number] [place] [address] [place] Platelet mean volume (Bld) [Entitic vol] 11.7 fL Normal 9.0-12.7 [facility] Comment on above: Order Comment: Speci men Type: BLOOD SPECIMENOrdering Facility: [facility] Address: [address] [place] [address] Performed By: #### 5 7021-8 ####[facility]ITALLIA [id number] [place] [address] [place] Platelets (Bld) [#/Vol] 106 10*3/uL Low 150-400 [facility] Comment on above: Order Comment: Speci men Type: BLOOD SPECIMENOrdering Facility: [facility] Address: [address] [place] [address] Performed By: #### 5 7021-8 ####[facility]ENTERNCLIA [id number] [place] [address] [place] RBC (Bld) [#/Vol] 4.02 10*6/uL Normal 3.90-5.20 [facility] Comment on above: Order Comment: Speci men Type: BLOOD SPECIMENOrdering Facility: [facility] Address: [address] [place] [address] Performed By: #### 5 7021-8 ####[facility] HOSPITALDesiraeNCPHILLIPA [id number] [place] [address] [place] WBC (Bld) [#/Vol] 3.61 10*3/uL Low 3.70-11.00 [facility] Comment on above: Order Comment: Speci men Type: BLOOD SPECIMENOrdering Facility: [facility] Address: [address] [place] [address] Performed By: #### 5 7021-8 ####[facility] CENTERNCPHILLIPA [id number] [place] [address] [place] Comprehensive metabolic 2000 panelon 09-02-2024 Albumin [Mass/Vol] 4.2 g/dL Normal 3.9-4.9 [facility] Comment on above: Order Comment: Speci men Type: BLOOD SPECIMENOrdering Facility: [facility] Address: [address] [place] [address] Performed By: #### 2 4323-8 ####[facility] HOSPITALDesiraeNCPHILLIPA [id number] [place] [address] [place] ALP [Catalytic activity/Vol] 43 U/L Normal 34-123 [facility] Comment on above: Order Comment: Speci men Type: BLOOD SPECIMENOrdering Facility: [facility] Address: [address] [place] [address] Performed By: #### 2 4323-8 ####[facility] HOSPITALWNCLIA [id number] [place] [address] [place] ALT [Catalytic activity/Vol] 22 U/L Normal 7-38 [facility] Comment on above: Order Comment: Speci men Type: BLOOD SPECIMENOrdering Facility: [facility] Address: [address] [place] [address] Performed By: #### 2 4323-8 ####[facility] TERESA MILLTOWNCLIA [id number] [place] [address] [place] Anion gap [Moles/Vol] 7 mmol/L Low 8-15 [facility] Comment on above: Order Comment: Speci men Type: BLOOD SPECIMENOrdering Facility: [facility] Address: [address] [place] [address] Performed By: #### 2 4323-8 ####[facility] MILLTOWMEHREENLIA [id number] [place] [address] [place] AST [Catalytic activity/Vol] 17 U/L Normal 13-35 [facility] Comment on above: Order Comment: Speci men Type: BLOOD SPECIMENOrdering Facility: [facility] Address: [address] [place] [address] Performed By: #### 2 4323-8 ####[facility] MILLTOWNCLIA [id number] [place] [address] [place] Bilirubin [Mass/Vol] 0.4 mg/dL Normal 0.2-1.3 [facility] Comment on above: Order Comment: Speci men Type: BLOOD SPECIMENOrdering Facility: [facility] Address: [address] [place] [address] Performed By: #### 2 4323-8 ####[facility] MILLTOWNCLIA [id number] [place] [address] [place] Calcium [Mass/Vol] 9.8 mg/dL Normal 8.5-10.2 [facility] Comment on above: Order Comment: Speci men Type: BLOOD SPECIMENOrdering Facility: [facility] Address: [address] [place] [address] Performed By: #### 2 4323-8 ####[facility] MILLWNCLIA [id number] [place] [address] [place] Chloride [Moles/Vol] 104 mmol/L Normal 98-107 [facility] Comment on above: Order Comment: Speci men Type: BLOOD SPECIMENOrdering Facility: [facility] Address: [address] [place] [address] Performed By: #### 2 4323-8 ####[facility]OSPITALLIA [id number] [place] [address] [place] CO2 [Moles/Vol] 29 mmol/L Normal 22-30 [facility] Comment on above: Order Comment: Speci men Type: BLOOD SPECIMENOrdering Facility: [facility] Address: [address] [place] [address] Performed By: #### 2 4323-8 ####[facility]ITALA [id number] [place] [address] [place] Creatinine [Mass/Vol] 0.96 mg/dL Normal 0.58-0.96 [facility] Comment on above: Order Comment: Speci men Type: BLOOD SPECIMENOrdering Facility: [facility] Address: [address] [place] [address] Performed By: #### 2 4323-8 ####[facility] [id number] [address] OF [facility] Creatinine and Glomerular filtration rate.predicted panel (S/P/Bld) 58 mL/min/1.73m??? Low >=60 [facility] Comment on above: Order Comment: Speci men Type: BLOOD SPECIMENOrdering Facility: [facility] Address: [address] [place] [address] Result Comment: Lashonda mated Glomerular Filtration Rate (eGFR) is calculated using the 2020 CKD-EPI creatinine equation. This equation utilizes serum creatinine, sex, and age as parameters. The creatinine assay has traceable calibration to isotope dilution-mass spectrometry. Refer to KDIGO guidelines for clinical interpretation. In patients with unstable renal function, e.g. those with acute kidney injury, the eGFR may not accurately reflect actual GFR. Performed By: #### 2 4323-8 ####[facility] HOSPITALWNCLIA [id number] [place] [address] [place] Glucose [Mass/Vol] 94 mg/dL Normal 74-99 [facility] Comment on above: Order Comment: Speci men Type: BLOOD SPECIMENOrdering Facility: [facility] Address: [address] [place] [address] Result Comment: The [place] Diabetes Association (ADA) provides guidance for cutoff values for fasting glucose and random glucose. The ADA defines fasting as no caloric intake for at least 8 hours. Fasting plasma glucose results between 100 to 125 mg/dL indicate increased risk for diabetes (prediabetes).Fasting plasma glucose results greater than or equal to 126 mg/dL meet the criteria for diagnosis of diabetes. In the absence of unequivocal hyperglycemia, results should be confirmed by repeat testing. In a patient with classic symptoms of hyperglycemia or hyperglycemic crisis, random plasma glucose results greater than or equal to 200 mg/dL meet the criteria for diagnosis of diabetes.Reference: Standards of Medical Care in Diabetes 2016, [place] Diabetes Association. Diabetes Care. 2016.39(Suppl 1). Performed By: #### 2 4323-8 ####[facility] HOSPITALWNCLIA [id number] [place] [address] [place] Potassium [Moles/Vol] 4.3 mmol/L Normal 3.7-5.1 [facility] Comment on above: Order Comment: Speci men Type: BLOOD SPECIMENOrdering Facility: [facility] Address: [address] [place] [address] Performed By: #### 2 4323-8 ####[facility] HOSPITALWNCLIA [id number] [place] [address] [place] Protein [Mass/Vol] 6.3 g/dL Normal 6.3-8.0 [facility] Comment on above: Order Comment: Speci men Type: BLOOD SPECIMENOrdering Facility: [facility] Address: [address] [place] [address] Performed By: #### 2 4323-8 ####[facility] [id number] [place] [address] [place] Sodium [Moles/Vol] 140 mmol/L Normal 136-144 [facility] Comment on above: Order Comment: Speci men Type: BLOOD SPECIMENOrdering Facility: [facility] Address: [address] [place] [address] Performed By: #### 2 4323-8 ####[facility] [id number] [place] [address] [place] Urea nitrogen [Mass/Vol] 21 mg/dL Normal 7-21 [facility] Comment on above: Order Comment: Speci men Type: BLOOD SPECIMENOrdering Facility: [facility] Address: [address] [place] [address] Performed By: #### 2 4323-8 ####[facility] [id number] [place] [address] [place] HbA1c (Bld)on 09-02-2024 Average glucose Estimated from glycated hemoglobin (Bld) [Mass/Vol] 111 mg/dL Normal [facility] Comment on above: Order Comment: Speci men Type: BLOOD SPECIMENOrdering Facility: [facility] Address: [address] [place] [address] Result Comment: eAG: (Estimated average glucose) is a calculated value from HgbA1c and is outreach representative of the average blood glucose level in the last 2-3 month period. Performed By: #### 5 5454-3 ####[facility] LABCLIA [id number] [place] [address] [place] HbA1c (Bld) [Mass fraction] 5.5 % Normal 4.3-5.6 [facility] Comment on above: Order Comment: Speci men Type: BLOOD SPECIMENOrdering Facility: [facility] Address: [address] [place] [address] Result Comment: [place] Diabetes Association guidelines indicate that patients with HgbA1c in the range 5.7-6.4% are at increased risk for development of diabetes, and intervention by lifestyle modification may be beneficial. HgbA1c greater or equal to 6.5% is considered diagnostic of diabetes. Performed By: #### 5 5454-3 ####[facility] LABCLIA [id number] [place] [address] [place] IMMUNOFIXATION SCREEN, SERUM on 09-02-2024 MPA RESULT No M protein is identified. Normal No M protein is identified. [facility] Comment on above: Order Comment: Speci men Type: BLOOD SPECIMENOrdering Facility: [facility] Address: [address] [place] [address] Performed By: #### I FESC ####[facility] LABCLIA [id number] [place] [address] [place] STAFF REVIEW (MPA) Reviewed by Diane Gray MD [facility] Comment on above: Order Comment: Speci men Type: BLOOD SPECIMENOrdering Facility: [facility] Address: [address] [place] [address] Performed By: #### I FESC ####[facility] LABCLIA [id number] [place] [address] [place] IMMUNOGLOBULINS,IGG,IGA,IGMo n 09-02-2024 IgA [Mass/Vol] 57 mg/dL Low 70-400 [facility] Comment on above: Order Comment: Speci men Type: BLOOD SPECIMENOrdering Facility: [facility] Address: [address] [place] [address] Performed By: #### S ERIMM ####[facility] LABCLIA [id number] [place] [address] [place] IgG [Mass/Vol] 689 mg/dL Low 700-1600 [facility] Comment on above: Order Comment: Speci men Type: BLOOD SPECIMENOrdering Facility: [facility] Address: [address] [place] [address] Performed By: #### S ERIMM ####[facility] LABCLIA [id number] [place] [address] [place] IgM [Mass/Vol] 38 mg/dL Low 40-230 [facility] Comment on above: Order Comment: Speci men Type: BLOOD SPECIMENOrdering Facility: [facility] Address: [address] [place] [address] Performed By: #### S ERIMM ####[facility] LABCLIA [id number] [place] [address] [place] KAPPA/MCINTOSH,FREE,SERon 2024 Immunoglobulin light chains.kappa.free (S) [Mass/Vol] 16.4 mg/L Normal 3.3-19.4 [facility] Comment on above: Order Comment: Speci men Type: BLOOD SPECIMENOrdering Facility: [facility] Address: [address] [place] [address] Result Comment: Rare ly, increased serum free light chains levels may not be detected or accurately quantified due to prozone phenomenon or in high viscosity samples using this immunoturbidimetric assay. Correlation with other laboratory results and clinical findings is recommended.The [place] Free Light Chain was performed using the Binding Site Optilite immunoturbidimetric method. Result obtained with different assay methods or kits cannot be used interchangeably. Performed By: #### K LFRS ####[facility] LABCLIA [id number] [place] [address] [place] Immunoglobulin light chains.kappa/Immunoglob ulin light chains.lambda (S) [Mass ratio] 1.04 Normal 0.26-1.65 [facility] Comment on above: Order Comment: Speci men Type: BLOOD SPECIMENOrdering Facility: [facility] Address: [address] [place] [address] Performed By: #### K LFRS ####[facility] LABCLIA [id number] [place] [address] [place] Immunoglobulin light chains.lambda.free [Mass/Vol] 15.7 mg/L Normal 5.7-26.3 [facility] Comment on above: Order Comment: Speci men Type: BLOOD SPECIMENOrdering Facility: [facility] Address: [address] [place] [address] Result Comment: Rare ly, increased serum free light chains levels may not be detected or accurately quantified due to prozone phenomenon or in high viscosity samples using this immunoturbidimetric assay. Correlation with other laboratory results and clinical findings is recommended.The Lambda Free Light Chain was performed using the Binding Site Optilite immunoturbidimetric method. Result obtained with different assay methods or kits cannot be used interchangeably. Performed By: #### K LFRS ####[facility] LABCLIA [id number] [place] [address] [place] LIPID PANEL, NONFASTINGon Cholesterol [Mass/Vol] 113 mg/dL Normal <200 [facility] Comment on above: Order Comment: Speci men Type: BLOOD SPECIMENOrdering Facility: [facility] Address: [address] [place] [address] Result Comment: <200 mg/dL, Desirable 200-239 mg/dL, Borderline high>239 mg/dL, High Performed By: #### 2 885-2, 3016-3, LIPNF ####[facility] LABCLIA [id number] [place] [address] [place] HDL CHOLESTEROL, NF 45 mg/dL Normal >39 [facility] Comment on above: Order Comment: Speci men Type: BLOOD SPECIMENOrdering Facility: [facility] Address: [address] [place] [address] Result Comment: 40-5 9 mg/dL, Acceptable>59 mg/dL, High: Negative risk factor for coronary heart disease<40 mg/dL, Low: Positive risk factor for coronary heart disease Performed By: #### 2 885-2, 3016-3, LIPNF ####[facility] LABCLIA [id number] [place] [address] [place] LDL CHOLESTEROL, NF 52 mg/dL Normal <100 [facility] Comment on above: Order Comment: Speci men Type: BLOOD SPECIMENOrdering Facility: [facility] Address: [address] [place] [address] Result Comment: <100 mg/dL, Optimal 100-129 mg/dL, Near optimal/above optimal 130-159 mg/dL, Borderline high 160-189 mg/dL, High>189 mg/dL, Very highSecondary prevention optimal LDL Cholesterol levels are recommended to be < 70 mg/dL Performed By: #### 2 885-2, 3016-3, LIPNF ####[facility] LABCLIA [id number] [place] [address] [place] LDL/HDL RATIO, NF 1.16 mg/dL Normal <2.54 [facility] Comment on above: Order Comment: Speci men Type: BLOOD SPECIMENOrdering Facility: [facility] Address: [address] [place] [address] Result Comment: Marisa mcdermott:1. National Cholesterol Education Program ATP III Guideline At-A-Glance Quick Desk Reference: National Heart, Lung, and Blood [place]. National Institutes of Health. 2001: NIH Publication No. 01-3305.2. An International Atherosclerosis Society position paper: global recommendations for the management of dyslipidemia: executive summary, Atherosclerosis. 2014: 232(2):410-413. Performed By: #### 2 885-2, 3016-3, LIPNF ####[facility] LABIA [id number] [place] [address] [place] NON HDL CHOL, NF 68 mg/dL Normal <130 [facility] Comment on above: Order Comment: Speci men Type: BLOOD SPECIMENOrdering Facility: [facility] Address: [address] [place] [address] Result Comment: <130 mg/dL, Optimal 130-159 mg/dL, Near optimal/above optimal 160-189 mg/dL, Borderline high 190-219 mg/dL, High>219 mg/dL, Very highSecondary prevention optimal non HDL Cholesterol levels are recommended to be <100 mg/dL Performed By: #### 2 885-2, 3016-3, LIPNF ####[facility] LABCLIA [id number] [place] [address] [place] T CHOL/HDL RATIO NF 2.51 mg/dL Normal <5.10 [facility] Comment on above: Order Comment: Speci men Type: BLOOD SPECIMENOrdering Facility: [facility] Address: [address] [place] [address] Performed By: #### 2 885-2, 3016-3, LIPNF ####[facility] LABCLIA [id number] [place] [address] [place] TRIGLYCERIDES, NF 80 mg/dL Normal <150 [facility] Comment on above: Order Comment: Speci men Type: BLOOD SPECIMENOrdering Facility: [facility] Address: [address] [place] [address] Result Comment: <150 mg/dL, Normal 150-199 mg/dL, Borderline high 200-499 mg/dL, High>499 mg/dL, Very high Performed By: #### 2 885-2, 6-3, LIPNF ####[facility] LABCLIA [id number] [place] [address] [place] VLDL CHOLESTEROL, NF 16 mg/dL Normal <30 [facility] Comment on above: Order Comment: Speci men Type: BLOOD SPECIMENOrdering Facility: [facility] Address: [address] [place] [address] Performed By: #### 2 885-2, 3016-3, LIPNF ####[facility] LABCLIA [id number] [place] [address] [place] PROTEIN ELECTROPHORESIS SERU M (P)on 09-02-2024 Albumin [Mass/Vol] 4.24 g/dL Normal 3.43-5.41 [facility] Comment on above: Order Comment: Speci men Type: BLOOD SPECIMENOrdering Facility: [facility] Address: [address] [place] [address] Performed By: #### L [id number] ####[facility] LABIA [id number] [place] [address] [place] Alpha 1 globulin Elph [Mass/Vol] 0.27 g/dL Normal 0.18-0.43 [facility] Comment on above: Order Comment: Speci men Type: BLOOD SPECIMENOrdering Facility: [facility] Address: [address] [place] [address] Performed By: #### L [id number] ####[facility] LABIA [id number] [place] [address] [place] Alpha 2 globulin Elph [Mass/Vol] 0.55 g/dL Normal 0.42-0.98 [facility] Comment on above: Order Comment: Speci men Type: BLOOD SPECIMENOrdering Facility: [facility] Address: [address] [place] [address] Performed By: #### L [id number] ####[facility] LABIA [id number] [place] [address] [place] Beta globulin Elph [Mass/Vol] 0.57 g/dL Low 0.61-1.17 [facility] Comment on above: Order Comment: Speci men Type: BLOOD SPECIMENOrdering Facility: [facility] Address: [address] [place] [address] Performed By: #### L [id number] ####[facility] LABIA [id number] [place] [address] [place] Gamma globulin Elph [Mass/Vol] 0.58 g/dL Normal 0.53-1.51 [facility] Comment on above: Order Comment: Speci men Type: BLOOD SPECIMENOrdering Facility: [facility] Address: [address] [place] [address] Performed By: #### L [id number] ####[facility] LABCLIA [id number] [place] [address] [place] M-PROTEIN LOCATION Normal [facility] Comment on above: Order Comment: Speci men Type: BLOOD SPECIMENOrdering Facility: [facility] Address: [address] [place] [address] Result Comment: Not Applicable. Performed By: #### L [id number] ####[facility] LABIA [id number] [place] [address] [place] Protein Fractions [Interp] No definitive M protein is identified on protein electrophoresis. Normal No definitive M protein is identified on protein electrophore sis. [facility] Comment on above: Order Comment: Speci men Type: BLOOD SPECIMENOrdering Facility: [facility] Address: [address] [place] [address] Performed By: #### L [id number] ####[facility] LABCLIA [id number] [place] [address] [place] Protein.monoclonal Elph [Mass/Vol] 0.00 g/dL Normal <=0.00 [facility] Comment on above: Order Comment: Speci men Type: BLOOD SPECIMENOrdering Facility: [facility] Address: [address] [place] [address] Performed By: #### L [id number] ####[facility] LABCLIA [id number] [place] [id number] [place] SPE STAFF REVIEW Reviewed by Juju Thomas M.D. Normal [facility] Comment on above: Order Comment: Speci men Type: BLOOD SPECIMENOrdering Facility: [facility] Address: [address] [place] [address] Performed By: #### L [id number] ####[facility] LABCLIA [id number] [place] [id number] [place] Prot SerPl-mCncon 09-02-2024 Protein [Mass/Vol] 6.2 g/dL Low 6.3-8.0 [facility] Comment on above: Order Comment: Speci men Type: BLOOD SPECIMENOrdering Facility: [facility] Address: [address] [place] [address] Performed By: #### 2 885-2, 3016-3, LIPNF ####[facility] LABCLIA [id number] [place] [address] [place] TSH SerPl-aCncon 09-02-2024 TSH Qn 1.710 m[IU]/L Normal 0.270-4.200 [facility] Comment on above: Order Comment: Speci men Type: BLOOD SPECIMENOrdering Facility: [facility] Address: [address] [place] [address] Performed By: #### 2 885-2, 3016-3, LIPNF ####[facility] [id number] [place] [address] [place] CNOVSPon 08-09-2024 CNOVSP Normal [facility] HBV core Ab Ql (S)on Interpretation and review of laboratory results Normal [facility] HBV core Ab Ser Qlon HBV core Ab Ql (S) Negative Normal Negative [facility] Comment on above: Order Comment: Speci men Type: BLOOD SPECIMENOrdering Facility: [facility] Address: [address] [place] [address] Result Comment: No e vidence of current or past infection with Hepatitis B virus. Should recent infection be suspected, repeat testing may be considered 3-4 weeks after this draw. Performed By: #### 1 6933-4, 58590-8, 5195-3 ####[facility] LABIA [id number] [place] [address] [place] HBV surface Ab Ql (S)on 07-24 HBV surface Ab Qn (S) mIU/mL [facility] Comment on above: <8 mIU/mL: No serolo gical evidence of immunity to Hepatitis B Virus. >/= 8 to <12 mIU/mL: No serological evidence of immunity to Hepatitis B Virus. >/= 12 mIU/mL: Consistent with serological evidence of immunity to Hepatitis B Virus. [facility] HBV surface Ab Qn (S) <8.00 Normal [facility] Comment on above: Order Comment: Speci men Type: BLOOD SPECIMENOrdering Facility: [facility] Address: [address] [place] [address] Result Comment: <8 m IU/mL: No serological evidence of immunity to Hepatitis B Virus.>/= 8 to <12 mIU/mL: No serological evidence of immunity to Hepatitis B Virus.>/= 12 mIU/mL: Consistent with serological evidence of immunity to Hepatitis B Virus. Performed By: #### 1 6933-4, 54306-4, 5195-3 ####[facility] [id number] [place] [address] [place] HBV surface Ab Ser Qlon 07-24 HBV surface Ab Ql (S) Negative Normal [facility] Comment on above: Order Comment: Speci kirk Type: BLOOD SPECIMENOrdering Facility: [facility] Address: [address] [place] [address] Result Comment: No s erological evidence of immunity to Hepatitis B Virus. Performed By: #### 1 6933-4, 08247-9, 5195-3 ####[facility] [id number] [place] [address] [place] HBV surface Ag Ql (S)on 07-24 Interpretation and review of laboratory results Normal [facility] HBV surface Ag Ser Qlon 07-24 HBV surface Ag Ql (S) Negative Normal Negative [facility] Comment on above: Order Comment: Speci men Type: BLOOD SPECIMENOrdering Facility: [facility] Address: [address] [place] [address] Performed By: #### 1 6933-4, 68505-4, 5195-3 ####[facility] LABCLIA [id number] [place] [address] [place] HCV Ab Ser Qlon 08-09-2024 HCV Ab Ql (S) Negative Normal Negative [facility] Comment on above: Order Comment: Speci men Type: BLOOD SPECIMENOrdering Facility: [facility] Address: [address] [place] [address] Result Comment: The result suggests no evidence of active infection with Hepatitis C virus. Should recent infection be suspected, repeat testing may be considered 4-6 weeks after this draw. Performed By: #### 1 6128-1 ####[facility] LABCLIA [id number] [place] [address] [place] HEPATITIS B CORE ANTIBODY TO [place] 08-09-2024 HBV core Ab Ql (S) Negative Negative [facility] Comment on above: No evidence of curre nt or past infection with Hepatitis B virus. Should recent infection be suspected, repeat testing may be considered 3-4 weeks after this draw. HEPATITIS B SURFACE ANTIBODY on 08-09-2024 HBV surface Ab Ql (S) Negative [facility] Comment on above: No serological evide nce of immunity to Hepatitis B Virus. HEPATITIS B SURFACE ANTIGENo n 08-09-2024 HBV surface Ag Ql (S) Negative Negative [facility] CBC W Auto Differential pane l (Bld)on 08-05-2024 Basophils (Bld) [#/Vol] 10*3/uL Normal <0.11 [facility] Comment on above: Order Comment: Speci men Type: BLOOD SPECIMENOrdering Facility: [facility] Address: [address] [place] [address] Performed By: #### 5 7021-8 ####[facility] [id number] [place] [address] [place] Basophils/100 WBC (Bld) 0.6 % Normal [facility] Comment on above: Order Comment: Speci men Type: BLOOD SPECIMENOrdering Facility: [facility] Address: [address] [place] [address] Performed By: #### 5 7021-8 ####[facility]ENTERSTEFANIE [id number] [place] [address] [place] Differential cell count method Nom (Bld) Auto Normal [facility] Comment on above: Order Comment: Speci men Type: BLOOD SPECIMENOrdering Facility: [facility] Address: [address] [place] [address] Performed By: #### 5 7021-8 ####[facility]ERNCM[facility] [id number] [place] [address] [place] Eosinophils (Bld) [#/Vol] 0.05 10*3/uL Normal <0.46 [facility] Comment on above: Order Comment: Speci men Type: BLOOD SPECIMENOrdering Facility: [facility] Address: [address] [place] [address] Performed By: #### 5 7021-8 ####[facility] [id number] [place] [address] [place] Eosinophils/100 WBC (Bld) 1.5 % Normal [facility] Comment on above: Order Comment: Speci men Type: BLOOD SPECIMENOrdering Facility: [facility] Address: [address] [place] [address] Performed By: #### 5 7021-8 ####[facility] [id number] [place] [address] [place] Erythrocyte distribution width (RBC) [Ratio] 15.4 % High 11.5-15.0 [facility] Comment on above: Order Comment: Speci men Type: BLOOD SPECIMENOrdering Facility: [facility] Address: [address] [place] [address] Performed By: #### 5 7021-8 ####[facility] CENTERMEHREENLIA [id number] [place] [address] [place] Hematocrit (Bld) [Volume fraction] 34.7 % Low 36.0-46.0 [facility] Comment on above: Order Comment: Speci men Type: BLOOD SPECIMENOrdering Facility: [facility] Address: [address] [place] [address] Performed By: #### 5 7021-8 ####[facility] [id number] [place] [address] [place] Hemoglobin (Bld) [Mass/Vol] 11.1 g/dL Low 11.5-15.5 [facility] Comment on above: Order Comment: Speci men Type: BLOOD SPECIMENOrdering Facility: [facility] Address: [address] [place] [address] Performed By: #### 5 7021-8 ####[facility] [id number] [place] [address] [place] Immature granulocytes (Bld) [#/Vol] 10*3/uL Normal <0.10 [facility] Comment on above: Order Comment: Speci men Type: BLOOD SPECIMENOrdering Facility: [facility] Address: [address] [place] [address] Performed By: #### 5 7021-8 ####[facility] [id number] [place] [address] [place] Immature granulocytes/100 WBC (Bld) 0.3 % Normal [facility] Comment on above: Order Comment: Speci men Type: BLOOD SPECIMENOrdering Facility: [facility] Address: [address] [place] [address] Performed By: #### 5 7021-8 ####[facility] [id number] [place] [address] [place] Lymphocytes (Bld) [#/Vol] 0.92 10*3/uL Low 1.00-4.00 [facility] Comment on above: Order Comment: Speci men Type: BLOOD SPECIMENOrdering Facility: [facility] Address: [address] [place] [address] Performed By: #### 5 7021-8 ####[facility] [id number] [place] [address] [place] Lymphocytes/100 WBC (Bld) 27.1 % Normal [facility] Comment on above: Order Comment: Speci men Type: BLOOD SPECIMENOrdering Facility: [facility] Address: [address] [place] [address] Performed By: #### 5 7021-8 ####[facility]ERNCM[facility] [id number] [place] [address] [place] MCH (RBC) [Entitic mass] 29.4 pg Normal 26.0-34.0 [facility] Comment on above: Order Comment: Speci men Type: BLOOD SPECIMENOrdering Facility: [facility] Address: [address] [place] [address] Performed By: #### 5 7021-8 ####[facility] [id number] [place] [address] [place] MCHC (RBC) [Mass/Vol] 32.0 g/dL Normal 30.5-36.0 [facility] Comment on above: Order Comment: Speci men Type: BLOOD SPECIMENOrdering Facility: [facility] Address: [address] [place] [address] Performed By: #### 5 7021-8 ####[facility]ENTERNCLI [id number] [place] [address] [place] MCV (RBC) [Entitic vol] 91.8 fL Normal 80.0-100.0 C [facility] Comment on above: Order Comment: Speci men Type: BLOOD SPECIMENOrdering Facility: [facility] Address: [address] [place] [address] Performed By: #### 5 7021-8 ####[facility] CENTERSTEFANIE [id number] [place] [address] [place] Monocytes (Bld) [#/Vol] 0.22 10*3/uL Normal <0.87 [facility] Comment on above: Order Comment: Speci men Type: BLOOD SPECIMENOrdering Facility: [facility] Address: [address] [place] [address] Performed By: #### 5 7021-8 ####[facility] [id number] [place] [address] [place] Monocytes/100 WBC (Bld) 6.5 % Normal [facility] Comment on above: Order Comment: Speci men Type: BLOOD SPECIMENOrdering Facility: [facility] Address: [address] [place] [address] Performed By: #### 5 7021-8 ####[facility] [id number] [place] [address] [place] Neutrophils (Bld) [#/Vol] 2.17 10*3/uL Normal 1.45-7.50 [facility] Comment on above: Order Comment: Speci men Type: BLOOD SPECIMENOrdering Facility: [facility] Address: [address] [place] [address] Performed By: #### 5 7021-8 ####[facility]ITALLIA [id number] [place] [address] [place] Neutrophils/100 WBC (Bld) 64.0 % Normal [facility] Comment on above: Order Comment: Speci men Type: BLOOD SPECIMENOrdering Facility: [facility] Address: [address] [place] [address] Performed By: #### 5 7021-8 ####[facility] SUNNYWMEHREENLIA [id number] [place] [address] [place] Nucleated RBC (Bld) [#/Vol] 10*3/uL Normal <0.01 [facility] Comment on above: Order Comment: Speci men Type: BLOOD SPECIMENOrdering Facility: [facility] Address: [address] [place] [address] Performed By: #### 5 7021-8 ####[facility]PITALLIA [id number] [place] [address] [place] Nucleated RBC/100 WBC (Bld) [Ratio] 0.0 /100 WBC Normal [facility] Comment on above: Order Comment: Speci men Type: BLOOD SPECIMENOrdering Facility: [facility] Address: [address] [place] [address] Performed By: #### 5 7021-8 ####[facility] [id number] [place] [address] [place] Platelet mean volume (Bld) [Entitic vol] 11.4 fL Normal 9.0-12.7 [facility] Comment on above: Order Comment: Speci men Type: BLOOD SPECIMENOrdering Facility: [facility] Address: [address] [place] [address] Performed By: #### 5 7021-8 ####[facility]PITALLIA [id number] [place] [address] [place] Platelets (Bld) [#/Vol] 112 10*3/uL Low 150-400 [facility] Comment on above: Order Comment: Speci men Type: BLOOD SPECIMENOrdering Facility: [facility] Address: [address] [place] [address] Performed By: #### 5 7021-8 ####[facility] CENTERNCLIA [id number] [place] [address] [place] RBC (Bld) [#/Vol] 3.78 10*6/uL Low 3.90-5.20 [facility] Comment on above: Order Comment: Speci men Type: BLOOD SPECIMENOrdering Facility: [facility] Address: [address] [place] [address] Performed By: #### 5 7021-8 ####[facility]ENTERNCLIA [id number] [place] [address] [place] WBC (Bld) [#/Vol] 3.39 10*3/uL Low 3.70-11.00 [facility] Comment on above: Order Comment: Speci men Type: BLOOD SPECIMENOrdering Facility: [facility] Address: [address] [place] [address] Performed By: #### 5 7021-8 ####[facility] CENTERNCA [id number] [place] [address] [place] CNPNon 08-05-2024 CNPN Normal [facility] Comprehensive metabolic 2000 panelon 08-05-2024 Albumin [Mass/Vol] 4.0 g/dL Normal 3.9-4.9 [facility] Comment on above: Order Comment: Speci men Type: BLOOD SPECIMENOrdering Facility: [facility] Address: [address] [place] [address] Performed By: #### 2 4323-8 ####[facility] [id number] [place] [address] [place] ALP [Catalytic activity/Vol] 45 U/L Normal 34-123 [facility] Comment on above: Order Comment: Speci men Type: BLOOD SPECIMENOrdering Facility: [facility] Address: [address] [place] [address] Performed By: #### 2 4323-8 ####[facility]ENTERNCLIA [id number] [place] [address] [place] ALT [Catalytic activity/Vol] 19 U/L Normal 7-38 [facility] Comment on above: Order Comment: Speci men Type: BLOOD SPECIMENOrdering Facility: [facility] Address: [address] [place] [address] Performed By: #### 2 4323-8 ####[facility] HOSPITALWNCLIA [id number] [place] [address] [place] Anion gap [Moles/Vol] 7 mmol/L Low 8-15 [facility] Comment on above: Order Comment: Speci men Type: BLOOD SPECIMENOrdering Facility: [facility] Address: [address] [place] [address] Performed By: #### 2 4323-8 ####[facility] CENTERNCLIA [id number] [place] [address] [place] AST [Catalytic activity/Vol] 16 U/L Normal 13-35 [facility] Comment on above: Order Comment: Speci men Type: BLOOD SPECIMENOrdering Facility: [facility] Address: [address] [place] [address] Performed By: #### 2 4323-8 ####[facility] [id number] [place] [address] [place] Bilirubin [Mass/Vol] 0.4 mg/dL Normal 0.2-1.3 [facility] [place] Comment on above: Order Comment: Speci men Type: BLOOD SPECIMENOrdering Facility: [facility] Address: [address] [place] [address] Performed By: #### 2 4323-8 ####[facility]ERNCLIA [id number] [place] [address] [place] Calcium [Mass/Vol] 9.4 mg/dL Normal 8.5-10.2 [facility] Comment on above: Order Comment: Speci men Type: BLOOD SPECIMENOrdering Facility: [facility] Address: [address] [place] [address] Performed By: #### 2 4323-8 ####[facility]ENTERNCLIA [id number] [place] [address] [place] Chloride [Moles/Vol] 105 mmol/L Normal 98-107 [facility] [place] Comment on above: Order Comment: Speci men Type: BLOOD SPECIMENOrdering Facility: [facility] Address: [address] [place] [address] Performed By: #### 2 4323-8 ####[facility] [id number] [place] [address] [place] CO2 [Moles/Vol] 27 mmol/L Normal 22-30 [facility] Comment on above: Order Comment: Speci men Type: BLOOD SPECIMENOrdering Facility: [facility] Address: [address] [place] [address] Performed By: #### 2 4323-8 ####[facility] [id number] [place] [address] [place] Creatinine [Mass/Vol] 0.91 mg/dL Normal 0.58-0.96 [facility] Comment on above: Order Comment: Speci men Type: BLOOD SPECIMENOrdering Facility: [facility] Address: [address] [place] [address] Performed By: #### 2 4323-8 ####[facility]ITALLI [id number] [address] Creatinine and Glomerular filtration rate.predicted panel (S/P/Bld) 62 mL/min/1.73m??? Normal >=60 [facility] Comment on above: Order Comment: Speci men Type: BLOOD SPECIMENOrdering Facility: [facility] Address: [address] [place] [address] Result Comment: Lashonda mated Glomerular Filtration Rate (eGFR) is calculated using the 2020 CKD-EPI creatinine equation. This equation utilizes serum creatinine, sex, and age as parameters. The creatinine assay has traceable calibration to isotope dilution-mass spectrometry. Refer to KDIGO guidelines for clinical interpretation. In patients with unstable renal function, e.g. those with acute kidney injury, the eGFR may not accurately reflect actual GFR. Performed By: #### 2 4323-8 ####[facility] CENTERMEHREENLIA [id number] [place] [address] [place] Glucose [Mass/Vol] 126 mg/dL High 74-99 [facility] Comment on above: Order Comment: Caleb bradley Type: BLOOD SPECIMENOrdering Facility: [facility] Address: [address] [place] [address] Result Comment: The [place] Diabetes [employer] (ADA) provides guidance for cutoff values for fasting glucose and random glucose. The ADA defines fasting as no caloric intake for at least 8 hours. Fasting plasma glucose results between 100 to 125 mg/dL indicate increased risk for diabetes (prediabetes).Fasting plasma glucose results greater than or equal to 126 mg/dL meet the criteria for diagnosis of diabetes. In the absence of unequivocal hyperglycemia, results should be confirmed by repeat testing. In a patient with classic symptoms of hyperglycemia or hyperglycemic crisis, random plasma glucose results greater than or equal to 200 mg/dL meet the criteria for diagnosis of diabetes.Reference: Standards of Medical Care in Diabetes 2016, [place] [employer]. Diabetes Care. 2016.39(Suppl 1). Performed By: #### 2 4323-8 ####[facility] CENTERNCA [id number] [place] [address] [place] Potassium [Moles/Vol] 3.8 mmol/L Normal 3.7-5.1 [facility] Comment on above: Order Comment: Caleb bradley Type: BLOOD SPECIMENOrdering Facility: [facility] Address: [address] [id number] Performed By: #### 2 4323-8 ####[facility]ENTERNCLI [id number] [place] [address] [place] Protein [Mass/Vol] 6.0 g/dL Low 6.3-8.0 [facility] Comment on above: Order Comment: Speci men Type: BLOOD SPECIMENOrdering Facility: [facility] Address: [address] [place] [address] Performed By: #### 2 4323-8 ####[facility]ERNCMOUNT[facility] [id number] [place] [address] [place] Sodium [Moles/Vol] 139 mmol/L Normal 136-144 [facility] Comment on above: Order Comment: Speci men Type: BLOOD SPECIMENOrdering Facility: [facility] Address: [address] [place] [address] Performed By: #### 2 4323-8 ####[facility]ENTERNCMOUNT[facility] [id number] [place] [address] [place] Urea nitrogen [Mass/Vol] 20 mg/dL Normal 7-21 [facility] Comment on above: Order Comment: Speci men Type: BLOOD SPECIMENOrdering Facility: [facility] Address: [address] [place] [address] Performed By: #### 2 4323-8 ####[facility] [id number] [address] [place] IMMUNOFIXATION SCREEN, SERUM on 08-05-2024 MPA RESULT No M protein is identified. Normal No M protein is identified. [facility] Comment on above: Order Comment: Speci men Type: BLOOD SPECIMENOrdering Facility: [facility] Address: [address] [place] [address] Performed By: #### I [facility] ####[facility] LABCLIA [id number] [place] [address] [place] STAFF REVIEW (MPA) Reviewed by Dr. Clari Galloway MD [facility] Comment on above: Order Comment: Speci men Type: BLOOD SPECIMENOrdering Facility: [facility] Address: [address] [place] [address] Performed By: #### I FESC ####[facility] LABCLIA [id number] [place] [address] [place] IMMUNOGLOBULINS,IGG,IGA,IGMo n 08-05-2024 IgA [Mass/Vol] 60 mg/dL Low 70-400 [facility] Comment on above: Order Comment: Speci men Type: BLOOD SPECIMENOrdering Facility: [facility] Address: [address] [place] [address] Performed By: #### S ERIMM ####[facility] LABCLIA [id number] [place] [address] [place] IgG [Mass/Vol] 660 mg/dL Low 700-1600 [facility] Comment on above: Order Comment: Speci men Type: BLOOD SPECIMENOrdering Facility: [facility] Address: [address] [place] [address] Performed By: #### S ERIMM ####[facility] LABCLIA [id number] [place] [address] [place] IgM [Mass/Vol] 34 mg/dL Low 40-230 [facility] Comment on above: Order Comment: Speci men Type: BLOOD SPECIMENOrdering Facility: [facility] Address: [address] [place] [address] Performed By: #### S ERIMM ####[facility] LABCLIA [id number] [place] [address] [place] KAPPA/MCINTOSH,FREE,SERon 2024 Immunoglobulin light chains.kappa.free (S) [Mass/Vol] 15.8 mg/L Normal 3.3-19.4 [facility] Comment on above: Order Comment: Speci men Type: BLOOD SPECIMENOrdering Facility: [facility] Address: [address] [place] [address] Result Comment: Rare ly, increased serum free light chains levels may not be detected or accurately quantified due to prozone phenomenon or in high viscosity samples using this immunoturbidimetric assay. Correlation with other laboratory results and clinical findings is recommended.The [place] Free Light Chain was performed using the Binding Site Optilite immunoturbidimetric method. Result obtained with different assay methods or kits cannot be used interchangeably. Performed By: #### K LFRS ####[facility] LABCLIA [id number] [place] [address] [place] Immunoglobulin light chains.kappa/Immunoglob ulin light chains.lambda (S) [Mass ratio] 0.85 Normal 0.26-1.65 [facility] Comment on above: Order Comment: Speci men Type: BLOOD SPECIMENOrdering Facility: [facility] Address: [address] [place] [address] Performed By: #### K LFRS ####[facility] LABIA [id number] [place] [address] [place] Immunoglobulin light chains.lambda.free [Mass/Vol] 18.6 mg/L Normal 5.7-26.3 [facility] Comment on above: Order Comment: Speci men Type: BLOOD SPECIMENOrdering Facility: [facility] Address: [address] [place] [address] Result Comment: Rare ly, increased serum free light chains levels may not be detected or accurately quantified due to prozone phenomenon or in high viscosity samples using this immunoturbidimetric assay. Correlation with other laboratory results and clinical findings is recommended.The [place] Free Light Chain was performed using the Binding Site Optilite immunoturbidimetric method. Result obtained with different assay methods or kits cannot be used interchangeably. Performed By: #### K LFRS ####[facility] LABIA [id number] [place] [address] [place] PROTEIN ELECTROPHORESIS SERU M (P)on 08-05-2024 Albumin [Mass/Vol] 3.89 g/dL Normal 3.43-5.41 [facility] Comment on above: Order Comment: Speci men Type: BLOOD SPECIMENOrdering Facility: [facility] Address: [address] [place] [address] Performed By: #### L [id number] ####[facility] LABCLIA [id number] [place] [address] [place] Alpha 1 globulin Elph [Mass/Vol] 0.27 g/dL Normal 0.18-0.43 [facility] Comment on above: Order Comment: Speci men Type: BLOOD SPECIMENOrdering Facility: [facility] Address: [address] [place] [address] Performed By: #### L [id number] ####[facility] LABIA [id number] [place] [address] [place] Alpha 2 globulin Elph [Mass/Vol] 0.57 g/dL Normal 0.42-0.98 [facility] Comment on above: Order Comment: Speci men Type: BLOOD SPECIMENOrdering Facility: [facility] Address: [address] [place] [address] Performed By: #### L [id number] ####[facility] LABIA [id number] [place] [address] [place] Beta globulin Elph [Mass/Vol] 0.52 g/dL Low 0.61-1.17 [facility] Comment on above: Order Comment: Speci men Type: BLOOD SPECIMENOrdering Facility: [facility] Address: [address] [place] [address] Performed By: #### L [id number] ####[facility] LABCLIA [id number] [place] [address] [place] Gamma globulin Elph [Mass/Vol] 0.55 g/dL Normal 0.53-1.51 [facility] Comment on above: Order Comment: Speci men Type: BLOOD SPECIMENOrdering Facility: [facility] Address: [address] [place] [address] Performed By: #### L [id number] ####[facility] LABCLIA [id number] [place] [address] [place] M-PROTEIN LOCATION Normal [facility] Comment on above: Order Comment: Speci men Type: BLOOD SPECIMENOrdering Facility: [facility] Address: [address] [place] [address] Result Comment: Not Applicable. Performed By: #### L [id number] ####[facility] LABCLIA [id number] [place] [address] [place] Protein Fractions [Interp] No definitive M protein is identified on protein electrophoresis. Normal No definitive M protein is identified on protein electrophore sis. [facility] Comment on above: Order Comment: Speci men Type: BLOOD SPECIMENOrdering Facility: [facility] Address: [address] [place] [address] Performed By: #### L [id number] ####[facility] LABCLIA [id number] [place] [address] [place] Protein.monoclonal Elph [Mass/Vol] 0.00 g/dL Normal <=0.00 [facility] Comment on above: Order Comment: Speci men Type: BLOOD SPECIMENOrdering Facility: [facility] Address: [address] [place] [address] Performed By: #### L [id number] ####[facility] LABCLIA [id number] [place] [address] [place] SPE STAFF REVIEW Reviewed by Dr. Clari Galloway MD Normal [facility] Comment on above: Order Comment: Speci men Type: BLOOD SPECIMENOrdering Facility: [facility] Address: [address] [place] [address] Performed By: #### L [id number] ####[facility] LABCLIA [id number] [place] [address] [place] Prot SerPl-mCncon 08-05-2024 Protein [Mass/Vol] 5.8 g/dL Low 6.3-8.0 [facility] Comment on above: Order Comment: Speci men Type: BLOOD SPECIMENOrdering Facility: [facility] Address: [address] [place] [address] Performed By: #### 2 885-2 ####[facility] LABCLIA [id number] [facility]ENTERConnor [id number] [id number] [place] XR CHEST 2V FRONTAL/LATon XR CHEST 2V FRONTAL/LAT Normal C [facility] XR Chest PA and Lateralon IMPRESSION: As above. Policy Director: PSCB Transcribe Date/Time: Aug 05 2024 11:38A Dictated by : VERÓNICA MINAYA MD This examination was interpreted and the report reviewed and electronically signed by: VERÓNICA MINAYA MD on Aug 05 2024 11:40AM [facility] DIVISION OF RADIOLOGY * * *Final Report* * * DATE OF EXAM: Aug 05 2024 11:07AM [id number] - XR CHEST 2V FRONTAL/LAT / PROCEDURE REASON: Pneumonia of right lower lobe due to infectious organism * * * * Physician Interpretation * * * * EXAMINATION: CHEST RADIOGRAPH (2 VIEW FRONTAL & LATERAL) CLINICAL HISTORY: Pneumonia of right lower lobe due to infectious organism MQ: XC2_6 EXAM DATE/TIME: 08/05/2024 11:07 AM COMPARISON: Chest x-ray of 07/13/2024 RESULT: Lines, tubes, and devices: None. Lungs and pleura: Improved aeration right lower lobe atelectasis/infiltrate with mild residual remaining, possibly atelectasis/scarring. Remainder of lungs clear. No pleural effusion or pneumothorax. Cardiomediastinal silhouette: Stable cardiomediastinal silhouette. Bones and soft tissues: Bilaterally partially calcified breast implants. DIVISION OF RADIOLOGY Provider, [facility] - 08/05/2024 * * *Final Report* * * DATE OF EXAM: Aug 05 2024 11:07AM [id number] - XR CHEST 2V FRONTAL/LAT / PROCEDURE REASON: Pneumonia of right lower lobe due to infectious organism * * * * Physician Interpretation * * * * EXAMINATION: CHEST RADIOGRAPH (2 VIEW FRONTAL & LATERAL) CLINICAL HISTORY: Pneumonia of right lower lobe due to infectious organism MQ: XC2_6 EXAM DATE/TIME: 08/05/2024 11:07 AM COMPARISON: Chest x-ray of 07/13/2024 RESULT: Lines, tubes, and devices: None. Lungs and pleura: Improved aeration right lower lobe atelectasis/infiltrate with mild residual remaining, possibly atelectasis/scarring. Remainder of lungs clear. No pleural effusion or pneumothorax. Cardiomediastinal silhouette: Stable cardiomediastinal silhouette. Bones and soft tissues: Bilaterally partially calcified breast implants. IMPRESSION IMPRESSION: As above. Policy Director: LIBERTY Transcribe Date/Time: Aug 05 2024 11:38A Dictated by : VERÓNICA MINAYA MD This examination was interpreted and the report reviewed and electronically signed by: VERÓNICA MINAYA MD on Aug 05 2024 11:40AM EST [facility] Radiology Study observation (narrative) Johannvelgiles henry [facility] XR Chest PA and LateralOrder ed By: Ccf Provider on 08-05-2024 [facility] CNOVon 07-23-2024 CNOV Normal [facility] C. difficile toxin genes TERI +probe Ql (Stl)on 07-15-2024 Interpretation and review of laboratory results Normal [facility] - Microbiology an d Antimicrobial susceptibilityon 07-15-2024 C. difficile toxin genes TERI+probe Ql (Stl) Negative Normal Negative for C. difficile toxin by PCR [facility] Comment on above: Order Comment: Speci men Type: STOOL SPECIMENOrdering Facility: [facility] Address: [address] [place] [address] Performed By: #### 5 4067-4 ####[facility] LABCLIA [id number] [place] [address] [place] XR Chest PA and Lateralon IMPRESSION: Focal right lower lobe infiltrate as described above. A follow-up exam is recommended. Policy Director: [facility] Transcribe Date/Time: Jul 14 2024 9:33A Dictated by : MADDY ANTHONY MD This examination was interpreted and the report reviewed and electronically signed by: MADDY ANTHONY MD on Jul 14 2024 9:35AM EST DIVISION OF RADIOLOGY * * *Final Report* * * DATE OF EXAM: Jul 13 2024 9:45AM [id number] - XR CHEST 2V FRONTAL/LAT / PROCEDURE REASON: Pneumonia of right lower lobe due to infectious organism * * * * Physician Interpretation * * * * EXAMINATION: CHEST RADIOGRAPH (2 VIEW FRONTAL & LATERAL) CLINICAL HISTORY: Pneumonia of right lower lobe due to infectious organism MQ: XC2_6 EXAM DATE/TIME: 07/13/2024 9:45 AM COMPARISON: 06/14/2024. RESULT: Lines, tubes, and devices: None. Lungs and pleura: There is a poorly visualized focal infiltrate/atelectasis in the posterior medial aspect of the right lower lobe, not definitely visualized on the prior exam. The lungs are partially obscured by overlying calcified breast implants. No consolidation. No lung mass. No pleural effusion. No pneumothorax. Cardiomediastinal silhouette: Stable cardiomediastinal silhouette. Bones and soft tissues: There are bilateral and partially calcified breast implants. DIVISION OF RADIOLOGY Provider, [facility] - 07/14/2024 * * *Final Report* * * DATE OF EXAM: Jul 13 2024 9:45AM [id number] - XR CHEST 2V FRONTAL/LAT / PROCEDURE REASON: Pneumonia of right lower lobe due to infectious organism * * * * Physician Interpretation * * * * EXAMINATION: CHEST RADIOGRAPH (2 VIEW FRONTAL & LATERAL) CLINICAL HISTORY: Pneumonia of right lower lobe due to infectious organism MQ: XC2_6 EXAM DATE/TIME: 07/13/2024 9:45 AM COMPARISON: 06/14/2024. RESULT: Lines, tubes, and devices: None. Lungs and pleura: There is a poorly visualized focal infiltrate/atelectasis in the posterior medial aspect of the right lower lobe, not definitely visualized on the prior exam. The lungs are partially obscured by overlying calcified breast implants. No consolidation. No lung mass. No pleural effusion. No pneumothorax. Cardiomediastinal silhouette: Stable cardiomediastinal silhouette. Bones and soft tissues: There are bilateral and partially calcified breast implants. IMPRESSION IMPRESSION: Focal right lower lobe infiltrate as described above. A follow-up exam is recommended. Policy Director: LIBERTY Transcribe Date/Time: Jul 14 2024 9:33A Dictated by : MADDY ANTHONY MD This examination was interpreted and the report reviewed and electronically signed by: MADDY ANTHONY MD on Jul 14 2024 9:35AM EST [facility] XR Chest PA and LateralOrder ed By: Ccf Provider on 07-14-2024 [facility] XR CHEST 2V FRONTAL/LATon XR CHEST 2V FRONTAL/LAT Normal C [facility] XR Chest PA and Lateralon Radiology Study observation (narrative) [facility] CNOVSPon 07-12-2024 CNOVSP Normal [facility] CBC W Auto Differential pane l (Bld)on 07-08-2024 Basophils (Bld) [#/Vol] 10*3/uL Normal <0.11 C [facility] Comment on above: Order Comment: Speci men Type: BLOOD SPECIMENOrdering Facility: [facility] Address: [address] [place] [address] Performed By: #### 5 7021-8 ####[facility] [id number] [place] [address] [place] Basophils/100 WBC (Bld) 0.3 % Normal C [facility] Comment on above: Order Comment: Speci men Type: BLOOD SPECIMENOrdering Facility: [facility] Address: [address] [place] [address] Performed By: #### 5 7021-8 ####[facility] [id number] [place] [address] [place] Differential cell count method Nom (Bld) Auto Normal [facility] Comment on above: Order Comment: Speci men Type: BLOOD SPECIMENOrdering Facility: [facility] Address: [address] [place] [address] Performed By: #### 5 7021-8 ####[facility]ITALLIA [id number] [place] [address] [place] Eosinophils (Bld) [#/Vol] 0.08 10*3/uL Normal <0.46 [facility] Comment on above: Order Comment: Speci men Type: BLOOD SPECIMENOrdering Facility: [facility] Address: [address] [place] [address] Performed By: #### 5 7021-8 ####[facility]ENTERNCPHILLIP [id number] [place] [address] [place] Eosinophils/100 WBC (Bld) 2.2 % Normal [facility] Comment on above: Order Comment: Speci men Type: BLOOD SPECIMENOrdering Facility: [facility] Address: [address] [place] [address] Performed By: #### 5 7021-8 ####[facility]ERN[facility] [id number] [place] [address] [place] Erythrocyte distribution width (RBC) [Ratio] 15.1 % High 11.5-15.0 [facility] Comment on above: Order Comment: Speci men Type: BLOOD SPECIMENOrdering Facility: [facility] Address: [address] [place] [address] Performed By: #### 5 7021-8 ####[facility] [id number] [place] [address] [place] Hematocrit (Bld) [Volume fraction] 33.5 % Low 36.0-46.0 [facility] Comment on above: Order Comment: Speci men Type: BLOOD SPECIMENOrdering Facility: [facility] Address: [address] [place] [address] Performed By: #### 5 7021-8 ####[facility]ENTERNCLIA [id number] [place] [address] [place] Hemoglobin (Bld) [Mass/Vol] 10.7 g/dL Low 11.5-15.5 [facility] Comment on above: Order Comment: Speci men Type: BLOOD SPECIMENOrdering Facility: [facility] Address: [address] [place], [place] [address] Performed By: #### 5 7021-8 ####[facility] MILLWNCLIA [id number] [place] [address] [place] Immature granulocytes (Bld) [#/Vol] 10*3/uL Normal <0.10 [facility] Comment on above: Order Comment: Speci men Type: BLOOD SPECIMENOrdering Facility: [facility] Address: [address] [place] [address] Performed By: #### 5 7021-8 ####[facility]ALLIA [id number] [place] [address] [place] Immature granulocytes/100 WBC (Bld) 0.3 % Normal [facility] Comment on above: Order Comment: Speci men Type: BLOOD SPECIMENOrdering Facility: [facility] Address: [address] [place] [address] Performed By: #### 5 7021-8 ####[facility]ITALLIA [id number] [place] [address] [place] Lymphocytes (Bld) [#/Vol] 0.85 10*3/uL Low 1.00-4.00 [facility] Comment on above: Order Comment: Speci men Type: BLOOD SPECIMENOrdering Facility: [facility] Address: [address] [place] [address] Performed By: #### 5 7021-8 ####[facility]ENTERNCLIA [id number] [place] [address] [place] Lymphocytes/100 WBC (Bld) 23.5 % Normal [facility] Comment on above: Order Comment: Speci men Type: BLOOD SPECIMENOrdering Facility: [facility] Address: [address] [place] [address] Performed By: #### 5 7021-8 ####[facility] CENTERNCLIA [id number] [place] [address] [place] MCH (RBC) [Entitic mass] 29.6 pg Normal 26.0-34.0 [facility] Comment on above: Order Comment: Speci men Type: BLOOD SPECIMENOrdering Facility: [facility] Address: [address] [place] [address] Performed By: #### 5 7021-8 ####[facility] CENTERSTEFANIE [id number] [place] [address] [place] MCHC (RBC) [Mass/Vol] 31.9 g/dL Normal 30.5-36.0 [facility] Comment on above: Order Comment: Speci men Type: BLOOD SPECIMENOrdering Facility: [facility] Address: [address] [place] [address] Performed By: #### 5 7021-8 ####[facility] CENTERMEHREENRoc [id number] [address] [place] MCV (RBC) [Entitic vol] 92.8 fL Normal 80.0-100.0 C [facility] Comment on above: Order Comment: Speci men Type: BLOOD SPECIMENOrdering Facility: [facility] Address: [address] [place] [address] Performed By: #### 5 7021-8 ####[facility] CENTERSTEFANIE [id number] [place] [address] [place] Monocytes (Bld) [#/Vol] 0.20 10*3/uL Normal <0.87 [facility] Comment on above: Order Comment: Speci men Type: BLOOD SPECIMENOrdering Facility: [facility] Address: [address] [place] [address] Performed By: #### 5 7021-8 ####[facility] CENTERNCLIA [id number] [place] [address] [place] Monocytes/100 WBC (Bld) 5.5 % Normal C [facility] Comment on above: Order Comment: Speci men Type: BLOOD SPECIMENOrdering Facility: [facility] Address: [address] [place] [address] Performed By: #### 5 7021-8 ####[facility] SUNNYEAST WORCESTERMEHREENLIA [id number] [place] [address] [place] Neutrophils (Bld) [#/Vol] 2.46 10*3/uL Normal 1.45-7.50 [facility] Comment on above: Order Comment: Speci men Type: BLOOD SPECIMENOrdering Facility: [facility] Address: [address] [place] [address] Performed By: #### 5 7021-8 ####[facility]PITALLIA [id number] [place] [address] [place] Neutrophils/100 WBC (Bld) 68.2 % Normal [facility] Comment on above: Order Comment: Speci men Type: BLOOD SPECIMENOrdering Facility: [facility] Address: [address] [place] [address] Performed By: #### 5 7021-8 ####[facility]ITALA [id number] [place] [address] [place] Nucleated RBC (Bld) [#/Vol] 10*3/uL Normal <0.01 [facility] Comment on above: Order Comment: Speci men Type: BLOOD SPECIMENOrdering Facility: [facility] Address: [address] [place] [address] Performed By: #### 5 7021-8 ####[facility]OSPITALLIA [id number] [place] [address] [place] Nucleated RBC/100 WBC (Bld) [Ratio] 0.0 /100 WBC Normal [facility] Comment on above: Order Comment: Speci men Type: BLOOD SPECIMENOrdering Facility: [facility] Address: [address] [place] [address] Performed By: #### 5 7021-8 ####[facility] MILLTOWNCLIA [id number] [place] [address] [place] Platelet mean volume (Bld) [Entitic vol] 11.2 fL Normal 9.0-12.7 [facility] Comment on above: Order Comment: Speci men Type: BLOOD SPECIMENOrdering Facility: [facility] Address: [address] [place], [place] [address] Performed By: #### 5 7021-8 ####[facility]ENTERNCLIA [id number] [place] [address] [place] Platelets (Bld) [#/Vol] 142 10*3/uL Low 150-400 [facility] Comment on above: Order Comment: Speci men Type: BLOOD SPECIMENOrdering Facility: [facility] Address: [address] [place], [place] [address] Performed By: #### 5 7021-8 ####[facility]ENTERNCLIA [id number] [place] [address] [place] RBC (Bld) [#/Vol] 3.61 10*6/uL Low 3.90-5.20 [facility] Comment on above: Order Comment: Speci men Type: BLOOD SPECIMENOrdering Facility: [facility] Address: [address] [place] [address] Performed By: #### 5 7021-8 ####[facility] HOSPITALWNCLIA [id number] [place] [address] [place] WBC (Bld) [#/Vol] 3.61 10*3/uL Low 3.70-11.00 [facility] Comment on above: Order Comment: Speci men Type: BLOOD SPECIMENOrdering Facility: [facility] Address: [address] [place] [address] Performed By: #### 5 7021-8 ####[facility]ENTERNCLIA [id number] [place] [address] [place] Comprehensive metabolic 2000 panelon 07-08-2024 Albumin [Mass/Vol] 3.9 g/dL Normal 3.9-4.9 [facility] Comment on above: Order Comment: Speci men Type: BLOOD SPECIMENOrdering Facility: [facility] Address: [address] [place] [address] Performed By: #### 2 4323-8 ####[facility] HOSPITALWNCLIA [id number] [place] [address] [place] ALP [Catalytic activity/Vol] 47 U/L Normal 34-123 [facility] Comment on above: Order Comment: Speci men Type: BLOOD SPECIMENOrdering Facility: [facility] Address: [address] [place] [address] Performed By: #### 2 4323-8 ####[facility]ENTERNCLIA [id number] [place] [address] [place] ALT [Catalytic activity/Vol] 18 U/L Normal 7-38 [facility] Comment on above: Order Comment: Speci men Type: BLOOD SPECIMENOrdering Facility: [facility] Address: [address] [place] [address] Performed By: #### 2 4323-8 ####[facility]ENTERNCLIA [id number] [place] [address] [place] Anion gap [Moles/Vol] 9 mmol/L Normal 8-15 [facility] Comment on above: Order Comment: Speci men Type: BLOOD SPECIMENOrdering Facility: [facility] Address: [address] [place] [address] Performed By: #### 2 4323-8 ####[facility] HOSPITALWNCLIA [id number] [place] [address] [place] AST [Catalytic activity/Vol] 18 U/L Normal 13-35 [facility] Comment on above: Order Comment: Speci men Type: BLOOD SPECIMENOrdering Facility: [facility] Address: [address] [place] [address] Performed By: #### 2 4323-8 ####[facility] SUNNYDesiraeMEHREENLIA [id number] [place] [address] [place] Bilirubin [Mass/Vol] 0.3 mg/dL Normal 0.2-1.3 [facility] Comment on above: Order Comment: Speci men Type: BLOOD SPECIMENOrdering Facility: [facility] Address: [address] [place] [address] Performed By: #### 2 4323-8 ####[facility] CENTERDANIELLAA [id number] [place] [address] [place] Calcium [Mass/Vol] 9.2 mg/dL Normal 8.5-10.2 [facility] Comment on above: Order Comment: Speci men Type: BLOOD SPECIMENOrdering Facility: [facility] Address: [address] [place] [address] Performed By: #### 2 4323-8 ####[facility] CENTERSTEFANIE [id number] [place] [address] [place] Chloride [Moles/Vol] 102 mmol/L Normal 98-107 [facility] Comment on above: Order Comment: Speci men Type: BLOOD SPECIMENOrdering Facility: [facility] Address: [address] [place] [address] Performed By: #### 2 4323-8 ####[facility]ENTERNCLIA [id number] [place] [address] [place] CO2 [Moles/Vol] 29 mmol/L Normal 22-30 [facility] Comment on above: Order Comment: Speci men Type: BLOOD SPECIMENOrdering Facility: [facility] Address: [address] [place] [address] Performed By: #### 2 4323-8 ####[facility]ENTERNCLIA [id number] [place] [address] [place] Creatinine [Mass/Vol] 0.91 mg/dL Normal 0.58-0.96 [facility] Comment on above: Order Comment: Speci men Type: BLOOD SPECIMENOrdering Facility: [facility] Address: [address] [place] [address] Performed By: #### 2 4323-8 ####[facility] [id number] [place] [address] [place] Creatinine and Glomerular filtration rate.predicted panel (S/P/Bld) 62 mL/min/1.73m??? Normal >=60 [facility] Comment on above: Order Comment: Caleb bradley Type: BLOOD SPECIMENOrdering Facility: [facility] Address: [address] [place] [address] Result Comment: Lashonda mated Glomerular Filtration Rate (eGFR) is calculated using the 2020 CKD-EPI creatinine equation. This equation utilizes serum creatinine, sex, and age as parameters. The creatinine assay has traceable calibration to isotope dilution-mass spectrometry. Refer to KDIGO guidelines for clinical interpretation. In patients with unstable renal function, e.g. those with acute kidney injury, the eGFR may not accurately reflect actual GFR. Performed By: #### 2 4323-8 ####[facility] HOSPITALLI [id number] [place] [address] [place] Glucose [Mass/Vol] 91 mg/dL Normal 74-99 [facility] Comment on above: Order Comment: Elvini kirk Type: BLOOD SPECIMENOrdering Facility: [facility] Address: [address] [place] [address] Result Comment: The [place] [employer] (ADA) provides guidance for cutoff values for fasting glucose and random glucose. The ADA defines fasting as no caloric intake for at least 8 hours. Fasting plasma glucose results between 100 to 125 mg/dL indicate increased risk for diabetes (prediabetes).Fasting plasma glucose results greater than or equal to 126 mg/dL meet the criteria for diagnosis of diabetes. In the absence of unequivocal hyperglycemia, results should be confirmed by repeat testing. In a patient with classic symptoms of hyperglycemia or hyperglycemic crisis, random plasma glucose results greater than or equal to 200 mg/dL meet the criteria for diagnosis of diabetes.Reference: Standards of Medical Care in Diabetes 2016, [place] [employer]. Diabetes Care. 2016.39(Suppl 1). Performed By: #### 2 4323-8 ####[facility] MILLWGALIA [id number] [place] [address] [place] Potassium [Moles/Vol] 3.8 mmol/L Normal 3.7-5.1 [facility] Comment on above: Order Comment: Speci men Type: BLOOD SPECIMENOrdering Facility: [facility] Address: [address] [place] [address] Performed By: #### 2 4323-8 ####[facility]ITALLIA [id number] [place] [address] [place] Protein [Mass/Vol] 5.9 g/dL Low 6.3-8.0 [facility] Comment on above: Order Comment: Elvini kirk Type: BLOOD SPECIMENOrdering Facility: [facility] Address: [address] [place] [address] Performed By: #### 2 4323-8 ####[facility]ITALLIA [id number] [place] [address] [place] Sodium [Moles/Vol] 140 mmol/L Normal 136-144 [facility] Comment on above: Order Comment: Speci men Type: BLOOD SPECIMENOrdering Facility: [facility] Address: [address] [place] [address] Performed By: #### 2 4323-8 ####[facility]ITALLIA [id number] [place] [address] [place] Urea nitrogen [Mass/Vol] 20 mg/dL Normal 7-21 [facility] Comment on above: Order Comment: Speci men Type: BLOOD SPECIMENOrdering Facility: [facility] Address: [address] [place] [address] Performed By: #### 2 4323-8 ####[facility] [id number] [place] [address] [place] IMMUNOFIXATION SCREEN, SERUM on 07-08-2024 MPA RESULT No M protein is identified. Normal No M protein is identified. [facility] Comment on above: Order Comment: Speci men Type: BLOOD SPECIMENOrdering Facility: [facility] Address: [address] [place] [address] Performed By: #### I FESC ####[facility] LABCLIA [id number] [address] [place] STAFF REVIEW (MPA) Reviewed by Yesenia Wright M.D., Ph.D [facility] Comment on above: Order Comment: Speci men Type: BLOOD SPECIMENOrdering Facility: [facility] Address: [address] [place] [address] Performed By: #### I FES ####[facility] LABCLIA [id number] [place] [address] [place] IMMUNOGLOBULINS,IGG,IGA,IGMo n 07-08-2024 IgA [Mass/Vol] 62 mg/dL Low 70-400 [facility] Comment on above: Order Comment: Speci men Type: BLOOD SPECIMENOrdering Facility: [facility] Address: [address] [place] [address] Performed By: #### S ERIMM ####[facility] LABCLIA [id number] [place] [address] [place] IgG [Mass/Vol] 617 mg/dL Low 700-1600 [facility] Comment on above: Order Comment: Speci men Type: BLOOD SPECIMENOrdering Facility: [facility] Address: [address] [place] [address] Performed By: #### S ERIMM ####[facility] LABCLIA [id number] [place] [address] [place] IgM [Mass/Vol] 33 mg/dL Low 40-230 [facility] Comment on above: Order Comment: Speci men Type: BLOOD SPECIMENOrdering Facility: [facility] Address: [address] [place] [address] Performed By: #### S ERIMM ####[facility] LABCLIA [id number] [place] [address] [place] KAPPA/MCINTOSH,FREE,SERon 2023 Immunoglobulin light chains.kappa.free (S) [Mass/Vol] 13.5 mg/L Normal 3.3-19.4 [facility] Comment on above: Order Comment: Speci men Type: BLOOD SPECIMENOrdering Facility: [facility] Address: [address] [place] [address] Result Comment: Rare ly, increased serum free light chains levels may not be detected or accurately quantified due to prozone phenomenon or in high viscosity samples using this immunoturbidimetric assay. Correlation with other laboratory results and clinical findings is recommended.The [place] Free Light Chain was performed using the Binding Site Optilite immunoturbidimetric method. Result obtained with different assay methods or kits cannot be used interchangeably. Performed By: #### K LFRS ####[facility] LABIA [id number] [place] [address] [place] Immunoglobulin light chains.kappa/Immunoglob ulin light chains.lambda (S) [Mass ratio] 0.93 Normal 0.26-1.65 [facility] Comment on above: Order Comment: Speci men Type: BLOOD SPECIMENOrdering Facility: [facility] Address: [address] [place] [address] Performed By: #### K LFRS ####[facility] LABCLIA [id number] [place] [address] [place] Immunoglobulin light chains.lambda.free [Mass/Vol] 14.5 mg/L Normal 5.7-26.3 [facility] Comment on above: Order Comment: Speci men Type: BLOOD SPECIMENOrdering Facility: [facility] Address: [address] [place] [address] Result Comment: Rare ly, increased serum free light chains levels may not be detected or accurately quantified due to prozone phenomenon or in high viscosity samples using this immunoturbidimetric assay. Correlation with other laboratory results and clinical findings is recommended.The [place] Free Light Chain was performed using the Binding Site Optilite immunoturbidimetric method. Result obtained with different assay methods or kits cannot be used interchangeably. Performed By: #### K LFRS ####[facility] LABIA [id number] [place] [address] [place] PROTEIN ELECTROPHORESIS SERU M (P)on 07-08-2024 Albumin [Mass/Vol] 3.64 g/dL Normal 3.43-5.41 [facility] Comment on above: Order Comment: Speci men Type: BLOOD SPECIMENOrdering Facility: [facility] Address: [address] [place] [address] Performed By: #### L [id number] ####[facility] LABIA [id number] [place] [address] [place] Alpha 1 globulin Elph [Mass/Vol] 0.29 g/dL Normal 0.18-0.43 [facility] Comment on above: Order Comment: Speci men Type: BLOOD SPECIMENOrdering Facility: [facility] Address: [address] [place] [address] Performed By: #### L [id number] ####[facility] LABIA [id number] [place] [address] [place] Alpha 2 globulin Elph [Mass/Vol] 0.57 g/dL Normal 0.42-0.98 [facility] Comment on above: Order Comment: Speci men Type: BLOOD SPECIMENOrdering Facility: [facility] Address: [address] [place] [address] Performed By: #### L [id number] ####[facility] LABCLIA [id number] [place] [address] [place] Beta globulin Elph [Mass/Vol] 0.49 g/dL Low 0.61-1.17 [facility] Comment on above: Order Comment: Speci men Type: BLOOD SPECIMENOrdering Facility: [facility] Address: [address] [place] [address] Performed By: #### L [id number] ####[facility] LABCLIA [id number] [place] [address] [place] Gamma globulin Elph [Mass/Vol] 0.41 g/dL Low 0.53-1.51 [facility] Comment on above: Order Comment: Speci men Type: BLOOD SPECIMENOrdering Facility: [facility] Address: [address] [place] [address] Performed By: #### L [id number] ####[facility] LABIA [id number] [place] [address] [place] INTERPRETATION COMMENT FOR PROTEIN ELECTROPHORESIS The atypical region did not stain on accompanying immunofixation and therefore is unlikely to be a monoclonal immunoglobulin. Normal [facility] Comment on above: Order Comment: Speci men Type: BLOOD SPECIMENOrdering Facility: [facility] Address: [address] [place] [address] Performed By: #### L [id number] ####[facility] LABCLIA [id number] [place] [address] [place] M-PROTEIN LOCATION Normal [facility] Comment on above: Order Comment: Speci men Type: BLOOD SPECIMENOrdering Facility: [facility] Address: [address] [place] [address] Result Comment: Not Applicable. Performed By: #### L [id number] ####[facility] LABCLIA [id number] [place] [address] [place] Protein Fractions [Interp] An atypical region of restricted mobility is identified on protein electrophoresis. Abnormal No definitive M protein is identified on protein electrophore sis. [facility] Comment on above: Order Comment: Speci men Type: BLOOD SPECIMENOrdering Facility: [facility] Address: [address] [place] [address] Performed By: #### L [id number] ####[facility] LABIA [id number] [place] [address] [place] Protein.monoclonal Elph [Mass/Vol] 0.00 g/dL Normal <=0.00 [facility] Comment on above: Order Comment: Speci men Type: BLOOD SPECIMENOrdering Facility: [facility] Address: [address] [place] [address] Performed By: #### L [id number] ####[facility] LABIA [id number] [place] [address] [place] SPE STAFF REVIEW Reviewed by Yesenia Wright M.D., Ph.D Normal [facility] Comment on above: Order Comment: Speci men Type: BLOOD SPECIMENOrdering Facility: [facility] Address: [address] [place] [address] Performed By: #### L [id number] ####[facility] LABIA [id number] [place] [address] [place] Prot SerPl-mCncon 07-08-2024 Protein [Mass/Vol] 5.4 g/dL Low 6.3-8.0 [facility] Comment on above: Order Comment: Speci men Type: BLOOD SPECIMENOrdering Facility: [facility] Address: [address] [place] [address] Performed By: #### 2 885-2 ####[facility] LABIA [id number] [place] [address] [place] CNPNon 06-26-2024 CNPN Normal [facility] Emergency Department Summary on 06-22-2024 Emergency Department Summary [facility] Medical Records Department [address] [place] [address] Emergency Department Summary 06/22/24 MR#: [id number] Acct: [id number] Name: KAYLEY DICKINSON Rep #: [id number] : 1935 88 From: [place] PCP: Dr. Hilton Pena MD Status:DEP ER Location: ED HPI History of Present Illness Chief Complaint: Nosebleed Narrative Narrative: Patient presenting today with a right-sided nosebleed that started about 45 minutes prior to arrival. She reports that her nose started bleeding randomly. It has bled a few times this week but only lasted a few minutes, she has been blowing her nose more recently and is currently being treated for URI. She does follow with ENT. She denies any trauma to her nose. I did stop bleeding when she was brought back to her room. She denies any fevers or chills. She takes a daily aspirin. [facility] Medical History Multiple myeloma Contact with and (suspected) exposure to other viral communicable diseases Hyperlipidemia Hypothyroid Home Medications ???Medication ???Instructions ???Recorded ???Last Taken ???Type acyclovir 400 mg tablet mg 08/16/23 Unknown History calcium 600 mg (as carbonate)-vit 1 tab PO BID 08/16/23 Unknown History D3 20 mcg (800 unit) chewable tablet (Caltrate plus D) ferrous sulfate 325 mg (65 mg 325 mg PO DAILY 08/16/23 Unknown History iron) tablet (Feosol) lenalidomide 10 mg capsule 10 mg PO QHS 08/16/23 Unknown History (Revlimid) levothyroxine 50 mcg tablet 50 mcg PO DAILY 08/16/23 Unknown History omeprazole 40 mg capsule,delayed 40 mg PO DAILY 08/16/23 Unknown History release pravastatin 80 mg tablet 80 mg PO DAILY 08/16/23 Unknown History ondansetron 4 mg disintegrating 4 mg PO Q8H PRN PRN Nausea #10 tabs 10/09/23 Unknown Rx tablet dexamethasone 4 mg tablet 8 mg (2 x 4 mg) PO X1 #2 tabs 11/23/24 Unknown Rx amoxicillin 875 mg-potassium 1 tab PO BID 10 days #20 tabs 06/20/24 Unknown Rx clavulanate 125 mg tablet Allergy/AdvReac Type Severity Reaction Status Date / Time latex Allergy Rash Verified 06/22/24 15:57 Sulfa (Sulfonamide Allergy Hives Verified 06/22/24 15:57 Antibiotics) Social History current occupational status: retired Smoking Status: Never smoker ROS ROS ED Constitutional Constitutional ED: Denies chills or fever(s) ENT ENT ED: Reports epistaxis Cardiovascular Cardiovascular: Denies chest pain Respiratory/Chest Respiratory/Chest: Denies dyspnea Gastrointestinal Gastrointestinal: Denies abdominal pain, nausea or vomiting Musculoskeletal Musculoskeletal: Denies myalgias or neck pain Integumentary Denies rash Neurologic Neurologic: Denies weakness EXAM Physical Exam Const Vital Signs: 06/22/24 15:57 06/22/24 17:32 Temperature 97.5 F L 97.6 F L Temperature Source Temporal Pulse Rate 82 74 Respiratory Rate 18 16 Blood Pressure 126/56 H 122/50 H Blood Pressure Mean 79 74 Pulse Ox 95 99 Oxygen Delivery Method Room Air Positive well nourished, well developed and no apparent distress General Appearance ED: well developed HEENT Reports normocephalic and head/scalp atraumatic HEENT Narrative: Friable mucosa on the right, I am able to visualize the vessel that was bleeding located in Kiesselbach's plexus on the right as it has very minimal oozing at this time. No blood in the posterior pharynx, no septal hematoma, no septal deviation. Mouth ED: Yes moist mucous membranes normal Eyes PERRL and EOMs intact bilaterally Neck full ROM and supple Chest Wall inspection of chest normal Resp normal respiratory effort and clear to auscultation bilaterally Cardio regular rate and regular rhythm GI non-distended Back/Spine normal ROM and normal to inspection Extremity normal to inspection and full ROM Neuro oriented x3, CN's II-XII intact bilaterally, moves all extremities, no focal motor deficits and no sensory deficits noted Sensorium / Orientation: awake and alert Psych mental status grossly normal and thought process normal Skin no rashes or lesions noted and no wounds Physical Exam Const Vital Signs: 06/22/24 15:57 06/22/24 17:32 Temperature 97.5 F L 97.6 F L Temperature Source Temporal Pulse Rate 82 74 Respiratory Rate 18 16 Blood Pressure 126/56 H 122/50 H Blood Pressure Mean 79 74 Pulse Ox 95 99 Oxygen Delivery Method Room Air MDM MDM MDM Narrative Medical decision making narrative: Patient presenting today with right anterior epistaxis that started about 45 minutes prior to arrival, it did stop by the time she got here. She blew her nose prior to my ex (more content not included)... Normal [facility] CBC-Complete Blood Cnt No Di ffon 06-21-2024 PATH REV Reviewed Normal [facility] Comment on above: Result Comment: PANC YTOPENIA Normocytic anemia. LEUKOPENIA MILD Thrombocytopenia. Clinical correlation necessary. Laz Rao D.O. 06/21/24 AMENDED REPORT 06/21/24 1345 PATH REV previously reported as: November Performed By: #### L 500.2500, L100.4500, L100.0500 #### [facility] [address] [place], [address] CNPNon 06-21-2024 CNPN Normal [facility] Basic Metabolic Profile (BMP )on 06-20-2024 BUN/CRE 25.6 RATIO High 10-20 [facility] Comment on above: Performed By: #### L 500.2500, L100.4500, L100.0500 #### [facility] [address] [place], [address] CA,Total 8.3 mg/dL Low 8.5-10.1 [facility] Comment on above: Performed By: #### L 500.2500, L100.4500, L100.0500 #### [facility] [address] [place], [address] Chloride [Moles/Vol] 109 mmol/L High 98-107 [facility] Comment on above: Performed By: #### L 500.2500, L100.4500, L100.0500 #### [facility] [address] [place], [address] CO2 [Moles/Vol] 26.0 mmol/L Normal 21.0-32.0 [facility] Comment on above: Performed By: #### L 500.2500, L100.4500, L100.0500 #### [facility] [address] [place], [address] Creatinine [Mass/Vol] 1.29 mg/dL High 0.55-1.[address] [facility] Comment on above: Result Comment: The validity of the calculated GFR GFRAA in patients over 70 years has not been determined. Clinical correlation is essential. Performed By: #### L 500.2500, L100.4500, L100.0500 #### [facility] [address] [place], [address] ECRCL 24.76 ml/min Normal [facility] Comment on above: Performed By: #### L 500.2500, L100.4500, L100.0500 #### [facility] [address] [place], [address] EST GFR - AA 50 mL/min Low >60 [facility] Comment on above: Result Comment: Afri can Bhutanese GFR Calc Performed By: #### L 500.2500, L100.4500, L100.0500 #### [facility] [address] [place], [address] GAP 4 Low 5-15 [facility] Comment on above: Performed By: #### L 500.2500, L100.4500, L100.0500 #### [facility] [address] [place], [address] GFR/1.73 sq M.predicted among non-blacks MDRD (S/P/Bld) [Vol rate/Area] 42 mL/min/{1.73_m2} Low >60 [facility] Comment on above: Result Comment: Non- GFR Calc Performed By: #### L 500.2500, L100.4500, L100.0500 #### [facility] [address] [place], [address] Glucose [Mass/Vol] 123 mg/dL High 74-106 [facility] Comment on above: Result Comment: Fast ing Glucose result from 100 to 125 mg/dL suggests IMPAIRED HOMEOSTASIS per A.D.A. criteria. Performed By: #### L 500.2500, L100.4500, L100.0500 #### [facility] [address] [place], [address] Potassium [Moles/Vol] 3.6 mmol/L Normal 3.5-5.[address] [facility] Comment on above: Performed By: #### L 500.2500, L100.4500, L100.0500 #### [facility] [address] [place], [address] Sodium [Moles/Vol] 139 mmol/L Normal 136-145 [facility] Comment on above: Performed By: #### L 500.2500, L100.4500, L100.0500 #### [facility] [address] [place], [address] Urea nitrogen [Mass/Vol] 33 mg/dL High 7-18 [facility] Comment on above: Performed By: #### L 500.2500, L100.4500, L100.0500 #### [facility] [address] [place], [address] Chest PA and Lateralon 06-20 Chest PA and Lateral [facility] Services [address] [place] [address] Chest PA and Lateral MR#: [id number] Acct: [id number] Name: KAYLEY DICKINSON Rep #: [id number] : 1935 F 88 From: Rm Bah MD PCP: Dr. Hilton Pena MD Status: REG ER Study: Chest PA and Lateral Date of Exam: 06/20/24 Exam# [id number] Ordering [place]: [place] [id number] INDICATION: cough EXAMINATION/TECHNIQUE: X-RAY - XR Chest 2 Views COMPARISON: None. FINDINGS: LINES/DEVICES: None. LUNGS: Patchy airspace opacity right lower lobe posteriorly. No consolidation. Small right pleural effusion. MEDIASTINUM AND CARDIOVASCULAR STRUCTURES: Cardiac silhouette not enlarged. Central airways and mediastinal contour are unremarkable. BONES AND SOFT TISSUES: No acute findings. RAD/Chest PA and Lateral IMPRESSION: Right lower lobe infiltrate with pleural effusion consistent with pneumonia. Recommend short-term follow-up to complete resolution. Electronically Signed: Rm Bah MD at 19:19 EST , CC: Dr. Hilton Pena MD; Dr. Bossman Tapia DO Policy Director: Signed Normal [facility] Differential Commenton 06-20 SMEAR COMMENT SCANNED Normal [facility] Comment on above: Result Comment: LEUK OCYTOPENIA NOTED RARE HYPOCHROMASIA Performed By: #### L 500.2500, L100.4500, L100.0500 #### [facility] [address] [place], [address] Emergency Department Summary on 06-20-2024 Emergency Department Summary [facility] Medical Records Department [address] [place] [address] Emergency Department Summary 06/20/24 MR#: [id number] Acct: [id number] Name: KAYLEY DICKINSON Rep #: [id number] : 1935 88 From: Bossman Tapia DO PCP: Dr. Hilton Pena MD Status:REG ER Location: ED HPI History of Present Illness Chief Complaint: Cough PFSH [facility] Medical History Multiple myeloma Contact with and (suspected) exposure to other viral communicable diseases Hyperlipidemia Hypothyroid Home Medications ???Medication ???Instructions ???Recorded ???Last Taken ???Type acyclovir 400 mg tablet mg 08/16/23 Unknown History calcium 600 mg (as carbonate)-vit 1 tab PO BID 08/16/23 Unknown History D3 20 mcg (800 unit) chewable tablet (Caltrate plus D) ferrous sulfate 325 mg (65 mg 325 mg PO DAILY 08/16/23 Unknown History iron) tablet (Feosol) lenalidomide 10 mg capsule 10 mg PO QHS 08/16/23 Unknown History (Revlimid) levothyroxine 50 mcg tablet 50 mcg PO DAILY 08/16/23 Unknown History omeprazole 40 mg capsule,delayed 40 mg PO DAILY 08/16/23 Unknown History release pravastatin 80 mg tablet 80 mg PO DAILY 08/16/23 Unknown History ondansetron 4 mg disintegrating 4 mg PO Q8H PRN PRN Nausea #10 tabs 10/09/23 Unknown Rx tablet dexamethasone 4 mg tablet 8 mg (2 x 4 mg) PO X1 #2 tabs 06/15/24 Unknown Rx amoxicillin 875 mg-potassium 1 tab PO BID 10 days #20 tabs 06/20/24 Unknown Rx clavulanate 125 mg tablet Allergy/AdvReac Type Severity Reaction Status Date / Time latex Allergy Rash Verified 06/20/24 17:33 Sulfa (Sulfonamide Allergy Hives Verified 06/20/24 17:33 Antibiotics) Social History Smoking Status: Never smoker EXAM Physical Exam Const Vital Signs: 06/20/24 17:33 06/20/24 17:35 06/20/24 17:45 Temperature 98.8 F 98.7 F Temperature Source Oral Oral Pulse Rate 99 94 Respiratory Rate 22 H 19 H Respiratory Effort Normal Non-Labored Respiratory Depth Normal Respiratory Pattern Normal Blood Pressure 148/110 H 134/89 H Blood Pressure Mean 122 104 Pulse Ox 92 95 Oxygen Delivery Method Room Air Room Air Room Air 06/20/24 18:35 Temperature 98.9 F Temperature Source Oral Pulse Rate 91 Respiratory Rate 17 Respiratory Effort Respiratory Depth Respiratory Pattern Blood Pressure 155/62 H Blood Pressure Mean 93 Pulse Ox 96 Oxygen Delivery Method Room Air [facility] Narrative Medical decision making narrative: HISTORY OF PRESENT ILLNESS: 88-year-old female presents with cough. She does she is currently being treated for multi myeloma. She notes a fever of 100.5 at home. She notes he is coughing up thick yellow mucus. REVIEW OF SYSTEMS: Pertinent positives: Cough Pertinent negatives: Shortness of breath, chest pain PHYSICAL EXAM: Nursing triage notes reviewed, Vital signs reviewed Constitutional: please see [facility] HENT: MMM Eyes: Pupils equal round and reactive to light, Extraocular muscles intact Neck: No stridor, no JVD, full neck ROM Lungs: Clear to auscultation, No wheezing or rales. No increased work of breathing, no conversational dyspnea, no accessory muscle use, no nasal flaring. No respiratory distress noted Heart: Regular rate and rhythm, No murmurs, No rubs and No gallops, 2+ distal pulses (radial, femoral, posterior tibial) in all extremities Abdomen: Soft, there is no tenderness, rigidity, rebound or guarding, no obvious peritoneal signs, no palpable pulsatile abdominal masses, no auscultated abdominal bruit : No CVAT Extremities: No edema Neuro: No new focal neurological deficits, cranial nerves II through XII intact, 5/5 strength in all present extremities. Intact sensation to light touch in all present extremities, 2+ reflexes bilateral patella tendons. Skin: No rash or lesions noted MEDICAL DECISION MAKING: Chief Complaint: Cough External records reviewed: No recent [facility] imaging of the chest Factors affecting care: multiple myeloma Social determinants of health: none History obtained from others: none Consults: none [facility] Narrative: Patient was initially hemodynamically stable, tachypneic, afebrile, saturating 92% on room air. Exam I considered the following differential diagnosis: Pneumonia, COVID, flu, RSV, ACS, arrhythmia, anemia I obtained a broad lab and imaging workup to further elucidate etiology of patient's complaints ALL IMAGES (IF OBTAINED) HAVE BEEN PERSONALLY REVIEWED AND INTERPRETED BY MYSELF. Chest x-ray was read and reviewed personally myself, interpreted myself showed evidence of right lower lobe pneumonia. Degree my interpretation CBC without leukocy (more content not included)... Normal [facility] M100.678on 06-20-2024 M100.678 Pending SARS-CoV-2 (COVID 19) Negative INFLUENZA A Negative INFLUENZA B Negative RSV PCR Negative Normal [facility] Comment on above: Performed By: #### M 100.678 #### [facility] [address] [place], [address] CNPNon 06-19-2024 CNPN Normal [facility] Emergency Department Summary on 06-15-2024 Emergency Department Summary [facility] Medical Records Department [address] [place] [address] Emergency Department Summary 06/15/24 MR#: [id number] Acct: [id number] Name: KAYLEY DICKINSON Rep #: [id number] : 1935 88 From: Rahul Doshi PCP: Dr. Hilton Pena MD Status:DEP ER Location: ED HPI History of Present Illness Chief Complaint: Other, Pain/Inj Informant: patient and spouse/S.O. Narrative Narrative: Here with significant other increasing voice loss since yesterday. Very minimal cough. No fevers no sore throat. No vomiting or diarrhea. No diabetes history. History of multiple myeloma on treatment. Gets additional immunotherapy monthly last treatment was yesterday. [facility] Medical History Multiple myeloma Contact with and (suspected) exposure to other viral communicable diseases Hyperlipidemia Hypothyroid Home Medications ???Medication ???Instructions ???Recorded ???Last Taken ???Type acyclovir 400 mg tablet mg 08/16/23 Unknown History calcium 600 mg (as carbonate)-vit 1 tab PO BID 08/16/23 Unknown History D3 20 mcg (800 unit) chewable tablet (Caltrate plus D) ferrous sulfate 325 mg (65 mg 325 mg PO DAILY 08/16/23 Unknown History iron) tablet (Feosol) lenalidomide 10 mg capsule 10 mg PO QHS 08/16/23 Unknown History (Revlimid) levothyroxine 50 mcg tablet 50 mcg PO DAILY 08/16/23 Unknown History omeprazole 40 mg capsule,delayed 40 mg PO DAILY 08/16/23 Unknown History release pravastatin 80 mg tablet 80 mg PO DAILY 08/16/23 Unknown History ondansetron 4 mg disintegrating 4 mg PO Q8H PRN PRN Nausea #10 tabs 10/09/23 Unknown Rx tablet dexamethasone 4 mg tablet 8 mg (2 x 4 mg) PO X1 #2 tabs 06/15/24 Unknown Rx Allergy/AdvReac Type Severity Reaction Status Date / Time latex Allergy Rash Verified 06/15/24 15:58 Sulfa (Sulfonamide Allergy Hives Verified 06/15/24 15:58 Antibiotics) Social History Smoking Status: Never smoker ROS ROS ED Constitutional Constitutional ED: Denies chills, fever(s) or sweats Eyes Eyes: Denies change in vision ENT ENT ED: Reports other Details: Voice loss ; Denies dysphagia or sore throat Cardiovascular Cardiovascular: Denies chest pain, leg edema, palpitations or racing heartbeat Respiratory/Chest Respiratory/Chest: Reports cough; Denies dyspnea or dyspnea on exertion Gastrointestinal Gastrointestinal: Denies abdominal pain, diarrhea, nausea or vomiting Genitourinary Genitourinary ED: Denies dysuria, hematuria or urinary frequency Musculoskeletal Musculoskeletal: Denies back pain, extremity pain or neck pain Integumentary Denies rash or wounds Neurologic Neurologic: Denies headache(s), paresthesias or weakness EXAM Physical Exam Const Vital Signs: 06/15/24 15:55 Temperature 97.4 F L Temperature Source Oral Pulse Rate 72 Respiratory Rate 15 Blood Pressure 151/57 H Blood Pressure Mean 88 Pulse Ox 99 Oxygen Delivery Method Room Air Positive well nourished and well developed Constitutional Narrative: Mild voice loss General Appearance ED: well developed and NAD HEENT Reports TM's clear and moist mucous membranes HEENT Narrative: No posterior pharyngeal erythema. No exudates. No stridor. normocephalic and atraumatic Tympanic Membrane ED: Yes TM's clear Eyes EOMs intact bilaterally and conjunctivae normal General Eye ED: Yes normal appearance of both eyes Neck no lymphadenopathy and supple General: Negative for tenderness Chest Wall Chest: Negative for tenderness Resp normal respiratory effort and normal air movement Effort and Inspection: symmetric chest movement; Negative for respiratory distress Cardio regular rate, regular rhythm and no murmurs Peripheral Pulses: pulses 2+ throughout GI normal to inspection, nondistended, normoactive bowel sounds and non-tender Palpation: Negative for guarding or rebound tenderness present Back/Spine no CVA tenderness and no thoracic nor lumbar tenderness Extremity normal to inspection General Extremety ED: Negative for edema or tenderness General Extremity: Negative for edema Neuro oriented x3 and no sensory deficits noted Sensorium / Orientation: awake and alert Skin no rashes or lesions noted and no wounds MDM MDM MDM Narrative Medical decision making narrative: Interventions / MDM: Differential diagnosis: Laryngitis, voice loss, viral syndrome, history multiple myeloma. Diagnosis considered but do not suspect: No clinical strep My EKG interpretation: N/A Imaging independently reviewed and interpreted by myself: N/A External documents reviewed: N/A Test considered but not ordered:N/A ED course: Vital signs stable nontoxic. Discussed lar (more content not included)... Normal [facility] CNOVSPon 06-14-2024 CNOVSP Normal [facility] XR CHEST 2V FRONTAL/LATon XR CHEST 2V FRONTAL/LAT Normal C [facility] XR Chest PA and Lateralon IMPRESSION: Please see body of the report. Policy Director: LIBERTY Transcribe Date/Time: Jun 14 2024 3:52P Dictated by : FREDDIE WILSON MD This examination was interpreted and the report reviewed and electronically signed by: FREDDIE WILSON MD on Jun 14 2024 3:53PM [facility] DIVISION OF RADIOLOGY * * *Final Report* * * DATE OF EXAM: Jun 14 2024 3:02PM CAX [id number] - XR CHEST 2V FRONTAL/LAT / PROCEDURE REASON: Multiple myeloma in remission (HCC) * * * * Physician Interpretation * * * * EXAMINATION: CHEST RADIOGRAPH (2 VIEW FRONTAL & LATERAL) CLINICAL HISTORY: Multiple myeloma in remission (HCC) MQ: XC2_6 EXAM DATE/TIME: 06/14/2024 3:02 PM COMPARISON: 05/31/2023 RESULT: Lines, tubes, and devices: None. Lungs and pleura: No new focal lung consolidation is seen. No substantial pleural effusion is seen. There is no pneumothorax. Cardiomediastinal silhouette: Stable cardiomediastinal silhouette. Bones and soft tissues: The vertebral bodies are well aligned and the vertebral body heights are maintained. Bilateral breast implants are seen. 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 Lungs and pleura: No new focal lung consolidation is seen. No substantial pleural effusion is seen. There is no pneumothorax. Cardiomediastinal silhouette: Stable cardiomediastinal silhouette. Bones and soft tissues: The vertebral bodies are well aligned and the vertebral body heights are maintained. Bilateral breast implants are seen. IMPRESSION IMPRESSION: Please see body of the report. Policy Director: PSCJad Transcribe Date/Time: Jun 14 2024 3:52P Dictated by : FREDDIE WILSON MD This examination was interpreted and the report reviewed and electronically signed by: FREDDIE WILSON MD on Jun 14 2024 3:53PM EST [facility] Radiology Study observation (narrative) [facility] XR Chest PA and LateralOrder ed By: Ccf Provider on 06-14-2024 [facility] CBC W Auto Differential pane l (Bld)on 06-11-2024 Basophils (Bld) [#/Vol] 0.03 10*3/uL Normal <0.11 [facility] Comment on above: Order Comment: Speci men Type: BLOOD SPECIMENOrdering Facility: [facility] Address: [address] [place] [address] Performed By: #### 5 7021-8 ####[facility] [id number] [place] [address] [place] Basophils/100 WBC (Bld) 0.9 % Normal C [facility] Comment on above: Order Comment: Speci men Type: BLOOD SPECIMENOrdering Facility: [facility] Address: [address] [place] [address] Performed By: #### 5 7021-8 ####[facility] SUNNYWNCLIA [id number] [place] [address] [place] Differential cell count method Nom (Bld) Auto Normal [facility] Comment on above: Order Comment: Speci men Type: BLOOD SPECIMENOrdering Facility: [facility] Address: [address] [place] [address] Performed By: #### 5 7021-8 ####[facility]ENTERMEHREENLIA [id number] [place] [address] [place] Eosinophils (Bld) [#/Vol] 0.05 10*3/uL Normal <0.46 [facility] Comment on above: Order Comment: Speci men Type: BLOOD SPECIMENOrdering Facility: [facility] Address: [address] [place] [address] Performed By: #### 5 7021-8 ####[facility]ENTERMEHREENA [id number] [place] [address] [place] Eosinophils/100 WBC (Bld) 1.4 % Normal [facility] Comment on above: Order Comment: Speci men Type: BLOOD SPECIMENOrdering Facility: [facility] Address: [address] [place] [address] Performed By: #### 5 7021-8 ####[facility] CENTERDANIELLAA [id number] [place] [address] [place] Erythrocyte distribution width (RBC) [Ratio] 14.6 % Normal 11.5-15.0 [facility] Comment on above: Order Comment: Speci men Type: BLOOD SPECIMENOrdering Facility: [facility] Address: [address] [place] [address] Performed By: #### 5 7021-8 ####[facility]ENTERNCLIA [id number] [place] [address] [place] Hematocrit (Bld) [Volume fraction] 36.1 % Normal 36.0-46.0 [facility] Comment on above: Order Comment: Speci men Type: BLOOD SPECIMENOrdering Facility: [facility] Address: [address] [place] [address] Performed By: #### 5 7021-8 ####[facility]ERNCMOUNT[facility] [id number] [place] [address] [place] Hemoglobin (Bld) [Mass/Vol] 11.7 g/dL Normal 11.5-15.5 [facility] Comment on above: Order Comment: Speci men Type: BLOOD SPECIMENOrdering Facility: [facility] Address: [address] [place] [address] Performed By: #### 5 7021-8 ####[facility] [id number] [place] [address] [place] Immature granulocytes (Bld) [#/Vol] 0.03 10*3/uL Normal <0.10 [facility] Comment on above: Order Comment: Speci men Type: BLOOD SPECIMENOrdering Facility: [facility] Address: [address] [place] [address] Performed By: #### 5 7021-8 ####[facility] [id number] [place] [address] [place] Immature granulocytes/100 WBC (Bld) 0.9 % Normal [facility] Comment on above: Order Comment: Speci men Type: BLOOD SPECIMENOrdering Facility: [facility] Address: [address] [place] [address] Performed By: #### 5 7021-8 ####[facility] [id number] [place] [address] [place] Lymphocytes (Bld) [#/Vol] 0.75 10*3/uL Low 1.00-4.00 [facility] Comment on above: Order Comment: Speci men Type: BLOOD SPECIMENOrdering Facility: [facility] Address: [address] [place] [address] Performed By: #### 5 7021-8 ####[facility] CENTERSTEFANIE [id number] [address] [place] [facility] Lymphocytes/100 WBC (Bld) 21.7 % Normal [facility] Comment on above: Order Comment: Speci men Type: BLOOD SPECIMENOrdering Facility: [facility] Address: [address] [place] [address] Performed By: #### 5 7021-8 ####[facility] CENTERDANIELLA [id number] [place] [address] [place] MCH (RBC) [Entitic mass] 30.1 pg Normal 26.0-34.0 [facility] Comment on above: Order Comment: Speci men Type: BLOOD SPECIMENOrdering Facility: [facility] Address: [address] [place] [address] Performed By: #### 5 7021-8 ####[facility] [id number] [place] [address] [place] MCHC (RBC) [Mass/Vol] 32.4 g/dL Normal 30.5-36.0 [facility] Comment on above: Order Comment: Speci men Type: BLOOD SPECIMENOrdering Facility: [facility] Address: [address] [place] [address] Performed By: #### 5 7021-8 ####[facility]ENTERNCLIA [id number] [place] [address] [place] MCV (RBC) [Entitic vol] 92.8 fL Normal 80.0-100.0 C [facility] Comment on above: Order Comment: Speci men Type: BLOOD SPECIMENOrdering Facility: [facility] Address: [address] [place] [address] Performed By: #### 5 7021-8 ####[facility] H[facility]PITALWNCLIA [id number] [place] [address] [place] Monocytes (Bld) [#/Vol] 0.40 10*3/uL Normal <0.87 [facility] Comment on above: Order Comment: Speci men Type: BLOOD SPECIMENOrdering Facility: [facility] Address: [address] [place] [address] Performed By: #### 5 7021-8 ####[facility] [id number] [place] [address] [place] Monocytes/100 WBC (Bld) 11.6 % Normal [facility] Comment on above: Order Comment: Speci men Type: BLOOD SPECIMENOrdering Facility: [facility] Address: [address] [place] [address] Performed By: #### 5 7021-8 ####[facility] [id number] [place] [address] [place] Neutrophils (Bld) [#/Vol] 2.20 10*3/uL Normal 1.45-7.50 [facility] Comment on above: Order Comment: Speci men Type: BLOOD SPECIMENOrdering Facility: [facility] Address: [address] [place] [address] Performed By: #### 5 7021-8 ####[facility] [id number] [place] [address] [place] Neutrophils/100 WBC (Bld) 63.5 % Normal [facility] Comment on above: Order Comment: Speci men Type: BLOOD SPECIMENOrdering Facility: [facility] Address: [address] [place] [address] Performed By: #### 5 7021-8 ####[facility] [id number] [place] [address] [place] Nucleated RBC (Bld) [#/Vol] 10*3/uL Normal <0.01 [facility] Comment on above: Order Comment: Speci men Type: BLOOD SPECIMENOrdering Facility: [facility] Address: [address] [place] [address] Performed By: #### 5 7021-8 ####[facility] [id number] [place] [address] [place] Nucleated RBC/100 WBC (Bld) [Ratio] 0.0 /100 WBC Normal [facility] Comment on above: Order Comment: Speci men Type: BLOOD SPECIMENOrdering Facility: [facility] Address: [address] [place] [address] Performed By: #### 5 7021-8 ####[facility] [id number] [place] [address] [place] Platelet mean volume (Bld) [Entitic vol] 10.9 fL Normal 9.0-12.7 [facility] Comment on above: Order Comment: Speci men Type: BLOOD SPECIMENOrdering Facility: [facility] Address: [address] [place] [address] Performed By: #### 5 7021-8 ####[facility] [id number] [place] [address] [place] Platelets (Bld) [#/Vol] 86 10*3/uL Low 150-400 C [facility] Comment on above: Order Comment: Speci men Type: BLOOD SPECIMENOrdering Facility: [facility] Address: [address] [place] [address] Result Comment: No c lot detected. Performed By: #### 5 7021-8 ####[facility] [id number] [place] [address] [place] RBC (Bld) [#/Vol] 3.89 10*6/uL Low 3.90-5.20 [facility] Comment on above: Order Comment: Speci men Type: BLOOD SPECIMENOrdering Facility: [facility] Address: [address] [place] [address] Performed By: #### 5 7021-8 ####[facility] SUNNYWNCPHILLIPA [id number] [place] [address] [place] WBC (Bld) [#/Vol] 3.46 10*3/uL Low 3.70-11.00 [facility] Comment on above: Order Comment: Speci men Type: BLOOD SPECIMENOrdering Facility: [facility] Address: [address] [place] [address] Performed By: #### 5 7021-8 ####[facility] [id number] [place] [address] [place] [facility] Comprehensive metabolic 2000 panelon 06-11-2024 Albumin [Mass/Vol] 4.0 g/dL Normal 3.9-4.9 [facility] Comment on above: Order Comment: Speci men Type: BLOOD SPECIMENOrdering Facility: [facility] Address: [address] [place] [address] Performed By: #### 2 4323-8 ####[facility]ERNCPHILLIPA [id number] [place] [address] [place] ALP [Catalytic activity/Vol] 45 U/L Normal 34-123 [facility] Comment on above: Order Comment: Speci men Type: BLOOD SPECIMENOrdering Facility: [facility] Address: [address] [place] [address] Performed By: #### 2 4323-8 ####[facility]ERNCLIA [id number] [place] [address] [place] ALT [Catalytic activity/Vol] 21 U/L Normal 7-38 [facility] Comment on above: Order Comment: Speci men Type: BLOOD SPECIMENOrdering Facility: [facility] Address: [address] [place] [address] Performed By: #### 2 4323-8 ####[facility] TERESA MILLTOWNCLIA [id number] [place] [address] [place] Anion gap [Moles/Vol] 8 mmol/L Normal 8-15 [facility] Comment on above: Order Comment: Speci men Type: BLOOD SPECIMENOrdering Facility: [facility] Address: [address] [place] [address] Performed By: #### 2 4323-8 ####[facility] MILLTOWNCLIA [id number] [place] [address] [place] AST [Catalytic activity/Vol] 16 U/L Normal 13-35 [facility] Comment on above: Order Comment: Speci men Type: BLOOD SPECIMENOrdering Facility: [facility] Address: [address] [place] [address] Performed By: #### 2 4323-8 ####[facility] MILLTOWNCLIA [id number] [place] [address] [place] Bilirubin [Mass/Vol] 0.3 mg/dL Normal 0.2-1.3 [facility] Comment on above: Order Comment: Speci men Type: BLOOD SPECIMENOrdering Facility: [facility] Address: [address] [place] [address] Performed By: #### 2 4323-8 ####[facility] MILLTOWNCLIA [id number] [place] [address] [place] Calcium [Mass/Vol] 9.1 mg/dL Normal 8.5-10.2 [facility] Comment on above: Order Comment: Speci men Type: BLOOD SPECIMENOrdering Facility: [facility] Address: [address] [place] [address] Performed By: #### 2 4323-8 ####[facility] MILLTOWNCLIA [id number] [place] [address] [place] Chloride [Moles/Vol] 105 mmol/L Normal 98-107 [facility] Comment on above: Order Comment: Speci men Type: BLOOD SPECIMENOrdering Facility: [facility] Address: [address] [place] [address] Performed By: #### 2 4323-8 ####[facility] [id number] [place] [address] [place] CO2 [Moles/Vol] 26 mmol/L Normal 22-30 [facility] Comment on above: Order Comment: Speci men Type: BLOOD SPECIMENOrdering Facility: [facility] Address: [address] [place] [address] Performed By: #### 2 4323-8 ####[facility] [id number] [place] [address] [place] Creatinine [Mass/Vol] 1.00 mg/dL High 0.58-0.96 [facility] Comment on above: Order Comment: Speci men Type: BLOOD SPECIMENOrdering Facility: [facility] Address: [address] [place] [address] Performed By: #### 2 4323-8 ####[facility] [id number] [place] [address] [facility] Creatinine and Glomerular filtration rate.predicted panel (S/P/Bld) 55 mL/min/1.73m??? Low >=60 [facility] Comment on above: Order Comment: Speci men Type: BLOOD SPECIMENOrdering Facility: [facility] Address: [address] [place] [address] Result Comment: Lashonda mated Glomerular Filtration Rate (eGFR) is calculated using the 2020 CKD-EPI creatinine equation. This equation utilizes serum creatinine, sex, and age as parameters. The creatinine assay has traceable calibration to isotope dilution-mass spectrometry. Refer to KDIGO guidelines for clinical interpretation. In patients with unstable renal function, e.g. those with acute kidney injury, the eGFR may not accurately reflect actual GFR. Performed By: #### 2 4323-8 ####[facility] SUNNYWNCLIA [id number] [place] [address] [place] Glucose [Mass/Vol] 107 mg/dL High 74-99 [facility] Comment on above: Order Comment: Speci men Type: BLOOD SPECIMENOrdering Facility: [facility] Address: [address] [place], [place] [id number] Result Comment: The [place] Diabetes Association (ADA) provides guidance for cutoff values for fasting glucose and random glucose. The ADA defines fasting as no caloric intake for at least 8 hours. Fasting plasma glucose results between 100 to 125 mg/dL indicate increased risk for diabetes (prediabetes).Fasting plasma glucose results greater than or equal to 126 mg/dL meet the criteria for diagnosis of diabetes. In the absence of unequivocal hyperglycemia, results should be confirmed by repeat testing. In a patient with classic symptoms of hyperglycemia or hyperglycemic crisis, random plasma glucose results greater than or equal to 200 mg/dL meet the criteria for diagnosis of diabetes.Reference: Standards of Medical Care in Diabetes 2016, [place] [employer] Association. Diabetes Care. 2016.39(Suppl 1). Performed By: #### 2 4323-8 ####[facility] [id number] [place] [address] [place] Potassium [Moles/Vol] 3.9 mmol/L Normal 3.7-5.1 [facility] Comment on above: Order Comment: Speci men Type: BLOOD SPECIMENOrdering Facility: [facility] Address: [address] [place] [address] Performed By: #### 2 4323-8 ####[facility] [id number] [place] [address] [place] Protein [Mass/Vol] 5.9 g/dL Low 6.3-8.0 [facility] Comment on above: Order Comment: Speci men Type: BLOOD SPECIMENOrdering Facility: [facility] Address: [address] [place] [address] Performed By: #### 2 4323-8 ####[facility] MILLWNCLIA [id number] [place] [address] [place] Sodium [Moles/Vol] 139 mmol/L Normal 136-144 [facility] Comment on above: Order Comment: Speci men Type: BLOOD SPECIMENOrdering Facility: [facility] Address: [address] [place] [address] Performed By: #### 2 4323-8 ####[facility]ITALWNCLIA [id number] [place] [address] [place] Urea nitrogen [Mass/Vol] 24 mg/dL High 7- [facility] Comment on above: Order Comment: Speci men Type: BLOOD SPECIMENOrdering Facility: [facility] Address: [address] [place] [address] Performed By: #### 2 4323-8 ####[facility] [id number] [address] [place] IMMUNOFIXATION SCREEN, SERUM on 06-11-2024 INTERPRETATION (MPA) Normal [facility] Comment on above: Order Comment: Speci men Type: BLOOD SPECIMENOrdering Facility: [facility] Address: [address] [place] [address] Performed By: #### I FESC ####[facility] LABCLIA [id number] [place] [address] [place] MPA RESULT A poorly defined reg ion of restricted mobility is present that may represent an M protein. Abnormal No M protein is identified. [facility] Comment on above: Order Comment: Speci men Type: BLOOD SPECIMENOrdering Facility: [facility] Address: [address] [place] [address] Performed By: #### I FESC ####[facility] LABCLIA [id number] [place] [id number] [place] STAFF REVIEW (MPA) Reviewed by Fadi Moreno MD, Ph.D ([id number]) Normal [facility] Comment on above: Order Comment: Speci men Type: BLOOD SPECIMENOrdering Facility: [facility] Address: [address] [place] [address] Performed By: #### I FESC ####[facility] LABCLIA [id number] [place] [address] [place] IMMUNOGLOBULINS,IGG,IGA,IGMo n 06-11-2024 IgA [Mass/Vol] 51 mg/dL Low 70-400 [facility] Comment on above: Order Comment: Speci men Type: BLOOD SPECIMENOrdering Facility: [facility] Address: [address] [place] [address] Performed By: #### S ERIMM ####[facility] LABCLIA [id number] [place] [address] [place] IgG [Mass/Vol] 705 mg/dL Normal 700-1600 [facility] Comment on above: Order Comment: Speci men Type: BLOOD SPECIMENOrdering Facility: [facility] Address: [address] [place] [address] Performed By: #### S ERIMM ####[facility] LABCLIA [id number] [place] [address] [place] IgM [Mass/Vol] 31 mg/dL Low 40-230 [facility] Comment on above: Order Comment: Speci men Type: BLOOD SPECIMENOrdering Facility: [facility] Address: [address] [place] [address] Performed By: #### S ERIMM ####[facility] LABCLIA [id number] [place] [address] [place] KAPPA/MCINTOSH,FREE,SERon 2023 Immunoglobulin light chains.kappa.free (S) [Mass/Vol] 15.0 mg/L Normal 3.3-19.4 [facility] Comment on above: Order Comment: Speci men Type: BLOOD SPECIMENOrdering Facility: [facility] Address: [address] [place] [address] Result Comment: Rare ly, increased serum free light chains levels may not be detected or accurately quantified due to prozone phenomenon or in high viscosity samples using this immunoturbidimetric assay. Correlation with other laboratory results and clinical findings is recommended.The [place] Free Light Chain was performed using the Binding Site Optilite immunoturbidimetric method. Result obtained with different assay methods or kits cannot be used interchangeably. Performed By: #### K LFRS ####[facility] LABCLIA [id number] [place] [address] [place] Immunoglobulin light chains.kappa/Immunoglob ulin light chains.lambda (S) [Mass ratio] 0.92 Normal 0.26-1.65 [facility] Comment on above: Order Comment: Speci men Type: BLOOD SPECIMENOrdering Facility: [facility] Address: [address] [place] [address] Performed By: #### K LFRS ####[facility] LABCLIA [id number] [place] [address] [place] Immunoglobulin light chains.lambda.free [Mass/Vol] 16.3 mg/L Normal 5.7-26.3 [facility] Comment on above: Order Comment: Speci kirk Type: BLOOD SPECIMENOrdering Facility: [facility] Address: [address] [place] [address] Result Comment: Rare ly, increased serum free light chains levels may not be detected or accurately quantified due to prozone phenomenon or in high viscosity samples using this immunoturbidimetric assay. Correlation with other laboratory results and clinical findings is recommended.The [place] Free Light Chain was performed using the Binding Site Optilite immunoturbidimetric method. Result obtained with different assay methods or kits cannot be used interchangeably. Performed By: #### K LFRS ####[facility] LABCLIA [id number] [place] [address] [place] PROTEIN ELECTROPHORESIS SERU M (P)on 06-11-2024 Albumin [Mass/Vol] 3.89 g/dL Normal 3.43-5.41 [facility] Comment on above: Order Comment: Speci men Type: BLOOD SPECIMENOrdering Facility: [facility] Address: [address] [place] [address] Performed By: #### L [id number] ####[facility] LABCLIA [id number] [place] [address] [place] Alpha 1 globulin Elph [Mass/Vol] 0.21 g/dL Normal 0.18-0.43 [facility] Comment on above: Order Comment: Speci men Type: BLOOD SPECIMENOrdering Facility: [facility] Address: [address] [place] [address] Performed By: #### L [id number] ####[facility] LABIA [id number] [place] [address] [place] Alpha 2 globulin Elph [Mass/Vol] 0.48 g/dL Normal 0.42-0.98 [facility] Comment on above: Order Comment: Speci men Type: BLOOD SPECIMENOrdering Facility: [facility] Address: [address] [place] [address] Performed By: #### L [id number] ####[facility] LABIA [id number] [place] [address] [place] Beta globulin Elph [Mass/Vol] 0.43 g/dL Low 0.61-1.17 [facility] Comment on above: Order Comment: Speci men Type: BLOOD SPECIMENOrdering Facility: [facility] Address: [address] [place] [address] Performed By: #### L [id number] ####[facility] LABCLIA [id number] [place] [address] [place] Gamma globulin Elph [Mass/Vol] 0.49 g/dL Low 0.53-1.51 [facility] Comment on above: Order Comment: Speci men Type: BLOOD SPECIMENOrdering Facility: [facility] Address: [address] [place] [address] Performed By: #### L [id number] ####[facility] LABIA [id number] [place] [address] [place] INTERPRETATION COMMENT FOR PROTEIN ELECTROPHORESIS Hypogammaglobulinemia is present, which can be seen in the setting of monoclonal gammopathy. If clinically indicated, monoclonal protein analysis and serum free light chain analysis are suggested to evaluate further for monoclonal gammopathy. Normal [facility] Comment on above: Order Comment: Speci [facility] Type: BLOOD SPECIMENOrdering Facility: [facility] Address: [address] [place] [address] Performed By: #### L [id number] ####[facility] LABIA [id number] [address] [place] M-PROTEIN LOCATION Normal [facility] Comment on above: Order Comment: Speci [facility] Type: BLOOD SPECIMENOrdering Facility: [facility] Address: [address] [place] [address] Result Comment: Not Applicable. Performed By: #### L [id number] ####[facility] LABIA [id number] [place] [address] [place] Protein Fractions [Interp] No definitive M protein is identified on protein electrophoresis. Normal No definitive M protein is identified on protein electrophore sis. [facility] Comment on above: Order Comment: Speci men Type: BLOOD SPECIMENOrdering Facility: [facility] Address: [address] [place] [address] Performed By: #### L [id number] ####[facility]ITAL[facility] [id number] [place] [address] [place] Protein.monoclonal Elph [Mass/Vol] 0.00 g/dL Normal <=0.00 [facility] Comment on above: Order Comment: Speci men Type: BLOOD SPECIMENOrdering Facility: [facility] Address: [address] [place] [address] Performed By: #### L [id number] ####[facility] LABCLIA [id number] [place] [id number] [place] SPE STAFF REVIEW Reviewed by Fadi Moreno MD, Ph.D ([id number]) Normal [facility] Comment on above: Order Comment: Speci men Type: BLOOD SPECIMENOrdering Facility: [facility] Address: [address] [place] [address] Performed By: #### L [id number] ####[facility] LABCLIA [id number] [place] [id number] [place] Prot SerPl-mCncon 06-11-2024 Protein [Mass/Vol] 5.5 g/dL Low 6.3-8.0 [facility] Comment on above: Order Comment: Speci men Type: BLOOD SPECIMENOrdering Facility: [facility] Address: [address] [place] [address] Performed By: #### 2 885-2 ####[facility] LABIA [id number] [address] [place] Basic Metabolic Profile (BMP )on 04-25-2024 BUN/CRE 19.0 RATIO Normal 10-20 [facility] Comment on above: Performed By: #### L 500.2500 ####[facility] [address] [place], [address] CA,Total 9.3 mg/dL Normal 8.5-10.1 [facility] Comment on above: Performed By: #### L 500.2500 ####[facility] [address] [place], [address] Chloride [Moles/Vol] 106 mmol/L Normal 98-107 [facility] Comment on above: Performed By: #### L 500.2500 ####[facility] [address] [place], [address] CO2 [Moles/Vol] 28.0 mmol/L Normal 21.0-32.0 [facility] Comment on above: Performed By: #### L 500.2500 ####[facility] [address] [place], [address] Creatinine [Mass/Vol] 0.90 mg/dL Normal 0.55-1.[address] [facility] Comment on above: Result Comment: The validity of the calculated GFR GFRAA in patients over 70 years has not been determined. Clinical correlation is essential. Performed By: #### L 500.2500 ####[facility] [address] [place], [address] EST GFR - AA 77 mL/min Normal >60 [facility] Comment on above: Result Comment: Afri can [place] GFR Calc Performed By: #### L 500.2500 ####[facility] [address] [place], [address] GAP 4 Low 5-15 [facility] Comment on above: Performed By: #### L 500.2500 ####[facility] [address] [place], [address] GFR/1.73 sq M.predicted among non-blacks MDRD (S/P/Bld) [Vol rate/Area] 63 mL/min/{1.73_m2} Normal >60 [facility] Comment on above: Result Comment: Non- GFR Calc Performed By: #### L 500.2500 ####[facility] [address] [place], [address] Glucose [Mass/Vol] 87 mg/dL Normal 74-106 [facility] Comment on above: Performed By: #### L 500.2500 ####[facility] [address] [place], [address] Potassium [Moles/Vol] 4.1 mmol/L Normal 3.5-5.[address] [facility] Comment on above: Performed By: #### L 500.2500 ####[facility] [address] [place], [address] Sodium [Moles/Vol] 138 mmol/L Normal 136-145 [facility] Comment on above: Performed By: #### L 500.2500 ####[facility] [address] [place], [address] Urea nitrogen [Mass/Vol] 17 mg/dL Normal 7-18 [facility] Comment on above: Performed By: #### L 500.2500 ####[facility] [address] [place], [place], [address] Urgent Care Visit Reporton 1 Urgent Care Visit Report [facility] [address], [address] [place], [place] [address] OFFICE VISIT Date of Service: 04/25/24 MR#: [id number] Acct: [id number] Name: KAYLEY DICKINSON Rep #: [id number] 3 : 1935 Provider: TK Tyler Age/Sex: 88/F Location: [facility] Status: Signed Intake Vital Signs 04/24/24 12:29 04/25/24 09:43 Height 5 ft 2 in Weight: 112 lb BMI 20.5 BP 106/64 122/60 H Blood Pressure Location Rt brachial Rt brachial Position Sitting Sitting Respiration 16 16 Pulse 66 88 Pulse Source Monitor NIBP Temp 98.6 F 98.4 F Temp Source Temporal Temporal Pulse Oximetry (%) 96 96 Oxygen Delivery Method room air room air Intake Visit Reasons: COUGH/ WATERY EYES/ SORE THROAT Chief Complaint: cough, congestion, ST Center Specialists Required: No Is patient in pain?: No Allergies latex Allergy (Verified 04/25/24 09:44) Rash Sulfa (Sulfonamide Antibiotics) Allergy (Verified 04/25/24 09:44) Hives Is last menstrual period known: No Post menopausal: Yes Patient : No Have you fallen in the past year?: No Nurse's Note: cough, congestion, ST since last noc. with covid. pt has mutiple myeloma and is concerned she will get covid [facility] Medical History Multiple myeloma Contact with and (suspected) exposure to other viral communicable diseases Hyperlipidemia Hypothyroid Social History Smoking Status: Never smoker HPI HPI Chief Complaint: cough, congestion, ST Details: KAYLEY DICKINSON, is a 88 F who presents to the office today for return visit for another COVID test. Patient states that she started with a cough, congestion and sore throat late last night and this morning. Patient's was here and tested positive for COVID yesterday. She denies hemoptysis, shortness of breath or difficult breathing. No vomiting or diarrhea. No other associated symptoms or alleviating/aggravating factors. ROS Const Constitutional: No other (as above) Exam Const General: cooperative and well developed HENMT Head: normal to inspection and atraumatic Ears: hearing grossly normal bilaterally Nose: nasal discharge clear Face and sinus: normal facial exam Mouth: oral mucosae normal Throat: abnormal tonsil bilaterally hypertrophy 1+ Resp Effort Inspection: normal respiratory effort and no audible wheezes Auscultation: Bilateral: Clear to Auscultation Cardio Palpation: normal PMI Rate: regular rate Rhythm: regular rhythm Neuro General: patient alert and CN's II-XI intact bilaterally Psych Appearance: grossly normal Mental Status: mental status grossly normal Results POC SARS AG POC SARS AG Positive Last Edit by Allyson Ching on 04/25/24 09:57 Coding Level of Care Code Off vis,est,level 3 Diagnoses COVID-19 U07.1 Assessment and Plan Assessment and Plan (1) COVID-19: Status: Acute Plan: Patient tested positive for COVID in the office today. BMP ordered as the patient has not had BMP on file here for the past 6 months. I did tell the patient we would send Paxlovid after the BMP has returned with a GFR above 60 however prior to the BMP returning she had her oncologist send in a prescription for Paxlovid. She also states that the oncologist office counseled her about her medications and was appropriate to discontinue or change. Patient verbalized understanding and agreement with all the above. Orders: Orders POC Rapid SARS Antigen Today Basic Metabolic Profile (BMP) Today U07.1 - COVID-19 Clinical Quality Measures Falls Risk Screening/Assistive Devices Have you fallen in the past year?: No 04/25/24 1449 Date Arash Rice Signature: Date (if applicable) CC: Normal [facility] Urgent Care Visit Reporton 1 Urgent Care Visit Report [facility] [address] , [address] [place] [address] OFFICE VISIT Date of Service: 04/24/24 MR#: [id number] Acct: [id number] Name: KAYLEY DICKINSON Rep #: [id number] : 1935 Provider: TK Tyler Age/Sex: 88/F Location: [facility] Status: Signed Intake Vital Signs 10/09/23 09:56 04/24/24 12:28 04/24/24 12:29 Height 5 ft 2.5 in 5 ft 2.5 in 5 ft 2 in Weight: 112 lb BMI 20.5 BP 106/64 Blood Pressure Location Rt brachial Position Sitting Respiration 16 Pulse 66 Pulse Source Monitor Temp 98.6 F Temp Source Temporal Pulse Oximetry (%) 96 Oxygen Delivery Method room air Intake Visit Reasons: covid test Chief Complaint: COVID TEST Center Specialists Required: No Accompanied by: Is patient in pain?: No Allergies latex Allergy (Verified 04/24/24 12:30) Rash Sulfa (Sulfonamide Antibiotics) Allergy (Verified 04/24/24 12:30) Hives Medications ???Medication ???Instructions ???Recorded ???Confirmed ???Type acyclovir 400 mg tablet mg 08/16/23 04/24/24 History calcium 600 mg (as carbonate)-vit 1 tab PO BID 08/16/23 04/24/24 History D3 20 mcg (800 unit) chewable tablet (Caltrate plus D) ferrous sulfate 325 mg (65 mg 325 mg PO DAILY 08/16/23 04/24/24 History iron) tablet (Feosol) lenalidomide 10 mg capsule 10 mg PO QHS 08/16/23 04/24/24 History (Revlimid) levothyroxine 50 mcg tablet 50 mcg PO DAILY 08/16/23 04/24/24 History omeprazole 40 mg capsule,delayed 40 mg PO DAILY 08/16/23 04/24/24 History release pravastatin 80 mg tablet 80 mg PO DAILY 08/16/23 04/24/24 History ondansetron 4 mg disintegrating 4 mg PO Q8H PRN PRN Nausea #10 tabs 10/09/23 04/24/24 Rx tablet Have you fallen in the past year?: No Nurse's Note: Pt's was positive for covid and she wanted to be check as well. [facility] Medical History Multiple myeloma Contact with and (suspected) exposure to other viral communicable diseases Hyperlipidemia Hypothyroid Social History Smoking Status: Never smoker HPI HPI Chief Complaint: COVID TEST Details: KAYLEY DICKINSON, is a 88 F who presents to the office today for request of a COVID test as her who is here with her just tested positive for COVID. Patient denies any current symptoms other than some increased fatigue. No fever, chills, sweats. No nausea, vomiting, diarrhea. No hemoptysis, shortness of breath or difficulty breathing. No other associated symptoms or alleviating/aggravating factors. ROS Const Constitutional: No other (as above) Exam Const General: cooperative and healthy appearing Resp Effort Inspection: normal respiratory effort Cardio Rate: regular rate Skin General: no rashes or lesions noted Neuro General: patient alert Psych Appearance: grossly normal Mental Status: mental status grossly normal Results POC SARS AG POC SARS AG Negative Last Edit by Abby Bowman MA on 04/24/24 14:32 Coding Level of Care Code Off vis,est,level 3 Diagnoses Contact with and (suspected) exposure to other viral communicable diseases Z20.828 Assessment and Plan Assessment and Plan (1) Contact with and (suspected) exposure to other viral communicable diseases: Status: Acute Plan: Patient tested negative for COVID in the office today. Encouraged to get plenty of rest, drink lots of clear liquids. Patient also educated on other symptomatic management techniques. To be seen in 7- 10 days if no improvement; sooner if worsening of symptoms. Patient verbalized understanding and agreement with all the above. Orders: Orders POC Rapid SARS Antigen Today Clinical Quality Measures Falls Risk Screening/Assistive Devices Have you fallen in the past year?: No 04/24/24 1638 Date Arash Rice Signature: Date (if applicable) CC: Normal [facility] CBC W Auto Differential pane l (Bld)on 03-22-2024 Basophils (Bld) [#/Vol] 0.03 10*3/uL [facility] Basophils/100 WBC (Bld) 0.7 % [facility] Differential cell count method Nom (Bld) Auto [facility] Eosinophils (Bld) [#/Vol] 0.06 10*3/uL [facility] Eosinophils/100 WBC (Bld) 1.5 % [facility] Erythrocyte distribution width (RBC) [Ratio] 14.3 % 11.5 - 15.0 % [facility] Hematocrit (Bld) [Volume fraction] 35.5 % Low 36.0 - 46.0 % [facility] Hemoglobin (Bld) [Mass/Vol] 11.4 g/dL Low 11.5 - 15.5 g/dL [facility] Immature granulocytes (Bld) [#/Vol] [facility] Immature granulocytes/100 WBC (Bld) 0.5 % [facility] Interpretation and review of laboratory results Abnormal [facility] Lymphocytes (Bld) [#/Vol] 0.86 10*3/uL Low [facility] Lymphocytes/100 WBC (Bld) 21.0 % [facility] MCH (RBC) [Entitic mass] 30.4 pg 26.0 - 34.0 pg [facility] MCHC (RBC) [Mass/Vol] 32.1 g/dL 30.5 - 36.0 g/dL [facility] MCV (RBC) [Entitic vol] 94.7 fL 80.0 - 100.0 fL [facility] Monocytes (Bld) [#/Vol] 0.28 10*3/uL [facility] Monocytes/100 WBC (Bld) 6.8 % [facility] Neutrophils (Bld) [#/Vol] 2.84 10*3/uL [facility] Neutrophils/100 WBC (Bld) 69.5 % [facility] Nucleated RBC (Bld) [#/Vol] NINF [facility] Nucleated RBC/100 WBC (Bld) [Ratio] 0.0 % /100 WBC [facility] Platelet mean volume (Bld) [Entitic vol] 11.5 fL 9.0 - 12.7 fL [facility] Platelets (Bld) [#/Vol] 98 10*3/uL Low C [facility] Comment on above: No clot detected. RBC (Bld) [#/Vol] 3.75 10*6/uL Low 3.90 - 5.2 0 m/uL [facility] WBC (Bld) [#/Vol] 4.09 10*3/uL [facility] Absolute lymphocyte countOrd ered By: Crystal Schulte on 10-09-2023 Lymphocytes Auto (Unsp spec) [#/Vol] 0.20 10*3/uL 0.83-4.51 [facility] Automated lymphocyte count a s percentage of total leukocytesOrdered By: Crystal Schulte on 10-09-2023 Lymphocytes/100 WBC Auto (Unsp spec) 18.5 % 19-41 [facility] Basophil percentageOrdered B y: Crystal Schulte on 10-09-2023 Basophils/100 WBC (Bld) 0.9 % 0-1 [facility] Bilirubin [Mass/Vol] 0.70 mg/dL 0.20-1.00 [facility] Comment on above: For patients on eltr ombopag therapy, use of Dimension [place] TBIL is not recommended. Chloride [Moles/Vol] 110 mmol/L 98-107 [facility] Eosinophils/100 WBC (Bld) 0.9 % 0-5 [facility] Glucose [Mass/Vol] 116 mg/dL 74-106 [facility] Comment on above: Fasting Glucose resu lt from 100 to 125 mg/dL suggests IMPAIRED HOMEOSTASIS per A.D.A. criteria. Hemoglobin (Bld) [Mass/Vol] 12.5 g/dL 12.0-15.0 [facility] Monocytes/100 WBC (Bld) 11.1 % 0-10 [facility] Neutrophils (Bld) [#/Vol] 0.7 10*3/uL 2.0-7.7 [facility] Neutrophils/100 WBC (Bld) 68.6 % 47-70 [facility] Potassium [Moles/Vol] 3.7 mmol/L 3.5-5.[address] [facility] Protein [Mass/Vol] 6.6 g/dL 6.4-8.2 [facility] Sodium [Moles/Vol] 139 mmol/L 136-145 [facility] WBC (Bld) [#/Vol] 1.1 10*3/uL 4.4-11.0 [facility] Comment on above: CRITICAL VALUE VERIF IED. CALLED TO HERBERT CERVANTES10/09/23 1030 Irma Pierce.RESULTS READ BACK BY SAME . Blood manual differential co mment interpretation (narrative result)Ordered By: Crystal Schulte on 10-09-2023 Manual differential comment Curt (Bld) [Interp] SCANNED [facility] Comment on above: LEUKOCYTOPENIA Determination of erythrocyte mean corpuscular volume (MCV)Ordered By: Crystal Schulte on 10-09-2023 MCV (RBC) [Entitic vol] 92.5 fL 81-99 [facility] Direct bilirubinOrdered By: Crystal Schulte on 10-09-2023 Bilirubin.direct [Mass/Vol] 0.17 mg/dL 0.00-0.30 [facility] Erythrocyte distribution wid th ratioOrdered By: Crystal Schutle on 10-09-2023 Erythrocyte distribution width (RBC) [Ratio] 15.0 % 11.6-14.6 [facility] Erythrocyte distribution wid th standard deviationOrdered By: Crystal Schulte on 10-09-2023 Erythrocyte distribution width (RBC) [Entitic vol] 51.4 fL 35.1-43.9 [facility] Hematocrit Auto (Bld) [Volum e fraction]Ordered By: Crystal Schulte on 10-09-2023 Hematocrit (Bld) [Volume fraction] 38.4 % 37-47 [facility] Immature granulocytes/100 WB C Auto (Bld)Ordered By: Crystal Schulte on 10-09-2023 Immature granulocytes/100 WBC (Bld) 0.000 % 0.0-0.9 [facility] Comment on above: IG% - Immature Granu locytes (promyelocytes, myelocytes and metamyelocytes) > 1% indicates that a LEFT SHIFT is Present. Laboratory - Chemistry and C hemistry - challengeOrdered By: Crystal Schulte on 10-09-2023 ALP [Catalytic activity/Vol] 38 U/L 45-117 [facility] ALT [Catalytic activity/Vol] 28 U/L 13-56 [facility] CO2 [Moles/Vol] 22.0 mmol/L 21.0-32.0 [facility] Globulin (S) [Mass/Vol] 3.2 g/dL 2.2-4.2 [facility] Urea nitrogen/Creatinine [Mass ratio] 21.6 mg/mg 10-20 [facility] Laboratory - Hematology and Cell countsOrdered By: Crystal Schulte on 10-09-2023 MCH (RBC) [Entitic mass] 30.1 pg 27.0-32.0 [facility] MCHC (RBC) [Mass/Vol] 32.6 g/dL 32-[address] [facility] Nucleated RBC/100 WBC (Bld) [Ratio] 0 % 0-5 [facility] Platelet mean volume (Bld) [Entitic vol] 11.6 fL 6.2-12.0 [facility] Platelets (Bld) [#/Vol] 85 10*3/uL 150-450 [facility] No Panel InformationOrdered By: Crystal Schulte on 10-09-2023 Estimated Creatinine Clearance Calc 31.89 ml/min [facility] Estimated GFR (MDRD) Amer 66 mL/min >60 [facility] Comment on above: GFR Calc Estimated GFR (MDRD) Non-Af Amer 55 mL/min >60 [facility] Comment on above: Non- GFR Calc RBC Auto (Bld) [#/Vol]Ordere d By: Crystal Schulte on 10-09-2023 RBC (Bld) [#/Vol] 4.15 10*6/uL 4.2-5.4 [facility] Review by pathologistOrdered By: Crystal Schulte on 10-09-2023 Pathologist review Curt (Unsp spec) [Interp] May foll [facility] Serum or plasma calcium marija urement (mass/volume)Ordered By: Crystal Schulte on 10-09-2023 Calcium [Mass/Vol] 7.8 mg/dL 8.5-10.1 [facility] Serum or plasma creatinine m easurement (mass/volume)Ordered By: Crystal Schulte on 10-09-2023 Creatinine [Mass/Vol] 1.02 mg/dL 0.55-1.[address] [facility] Comment on above: The validity of the calculated GFR & GFRAA in patients over 70 years has not been determined. Clinical correlation is essential. Serum or plasma urea nitroge n measurement (mass/volume)Ordered By: Crystal Schulte on 10-09-2023 Urea nitrogen [Mass/Vol] 22 mg/dL 7-18 [facility] Thin prep Papanicolaou smear with manual screeningOrdered By: Crystal Schulte on 10-09-2023 Thin prep Papanicolaou smear with manual screening 3.4 g/dL 3.2-5.0 [facility] Thin prep Papanicolaou smear with manual screening 19 U/L 15-37 [facility] Thin prep Papanicolaou smear with manual screening 7 5-15 [facility] XR Chest PA and Lateralon IMPRESSION: See results Policy Director: PSCB Transcribe Date/Time: May 31 2023 11:59P Dictated by : PILLO TOLEDO MD This examination was interpreted and the report reviewed and electronically signed by: PILLO TOLEDO MD on Jun 01 2023 12:01AM [facility] DIVISION OF RADIOLOGY * * *Final Report* * * DATE OF EXAM: May 31 2023 3:26PM CAX [id number] - XR CHEST 2V FRONTAL/LAT / PROCEDURE REASON: Multiple myeloma not having achieved remission (HCC) * * * * Physician Interpretation * * * * EXAMINATION: CHEST RADIOGRAPH (2 VIEW FRONTAL & LATERAL) CLINICAL HISTORY: Multiple myeloma not having achieved remission (HCC) MQ: XC2_6 EXAM DATE/TIME: 05/31/2023 3:26 PM COMPARISON: 03/24/2022 RESULT: Lines, tubes, and devices: None. Lungs and pleura: Lungs are hyperinflated/emphysema tous. Increase of trace pleural effusions or pleural thickening. Increase of partial atelectasis at the medial bases. No pneumothorax. Cardiomediastinal silhouette: Normal size heart. Thoracic aorta is tortuous with atherosclerotic calcifications. Bones and soft tissues: The visualized bones are osteopenic. Calcifications are seen in the abdominal aorta. DIVISION OF RADIOLOGY Provider, [facility] - 06/01/2023 * * *Final Report* * * DATE OF EXAM: May 31 2023 3:26PM CAX [id number] - XR CHEST 2V FRONTAL/LAT / PROCEDURE REASON: Multiple myeloma not having achieved remission (HCC) * * * * Physician Interpretation * * * * EXAMINATION: CHEST RADIOGRAPH (2 VIEW FRONTAL & LATERAL) CLINICAL HISTORY: Multiple myeloma not having achieved remission (HCC) MQ: XC2_6 EXAM DATE/TIME: 05/31/2023 3:26 PM COMPARISON: 03/24/2022 RESULT: Lines, tubes, and devices: None. Lungs and pleura: Lungs are hyperinflated/emphysema tous. Increase of trace pleural effusions or pleural thickening. Increase of partial atelectasis at the medial bases. No pneumothorax. Cardiomediastinal silhouette: Normal size heart. Thoracic aorta is tortuous with atherosclerotic calcifications. Bones and soft tissues: The visualized bones are osteopenic. Calcifications are seen in the abdominal aorta. IMPRESSION IMPRESSION: See results Policy Director: PSCB Transcribe Date/Time: May 31 2023 11:59P Dictated by : PILLO TOLEDO MD This examination was interpreted and the report reviewed and electronically signed by: PILLO TOLEDO MD on Jun 01 2023 12:01AM EST [facility] XR Chest PA and LateralOrder ed By: [facility] Provider on 06-01-2023 [facility] XR CHEST 2V FRONTAL/LATon [facility] XR Chest PA and Lateralon Radiology Study observation (narrative) [facility] MRI LIVER WO/W IVCONon 03-[address] [facility] [address] BRAIN WO IVCONon 02-28-20 23 [facility] HBV surface Ab Ql (S)on HBV surface Ab Qn (S) [facility] HEP B CORE AB TOTALon 2022 HBV core Ab Ql (S) Negative Negative [facility] HEP B SURF ABon 02-23-2023 HBV surface Ab Ql (S) Negative [facility] HEP B SURF AG SCRNon 023 HBV surface Ag Ql (S) Negative Negative [facility] HEPATITIS C ANTIBODY IA WITH CONFIRMATIONon 02-23-2023 HCV Ab Ql (S) Negative Negative [facility] CT WB SKULL TO KNEE WO IVCON on 02-11-2023 CT WB SKULL TO KNEE WO IVCON * * *Final Report* * * DATE OF EXAM: Feb 11 2023 11:12AM [facility] 2096 - CT WB SKULL TO KNEE WO IVCON / PROCEDURE REASON: Multiple myeloma not having achieved remission (HCC) * * * * Physician Interpretation * * * * WHOLE-BODY LOW-DOSE CT WITHOUT CONTRAST Clinical Statement: Multiple myeloma not having achieved remission. Comparison: CT chest, abdomen and pelvis 01/23/2023, CT guided left clavicle biopsy 01/30/2023. TECHNIQUE: Low-dose whole body CT was performed in the axial plane without contrast with images acquired from the cranial vertex to the proximal tibial shaft. CT Dose-Length Product: 452.70 mGy*cm CT dose reduction employed: Automatic exposure control (AEC) and iterative reconstruction. Result: The low-dose noncontrast examination is limited for the detection of some intrathoracic, solid abdominal organ and vascular pathologies. In addition, the study is insensitive for detection of diffuse pattern of myelomatous marrow infiltration. OSSEOUS STRUCTURES: Calvarium: No circumscribed lytic lesion measuring 5 mm or greater in size. Spine: Multilevel degenerative disc disease and degenerative facet arthropathy. No circumscribed lytic lesion measuring 5 mm or greater in size. Upper extremities: No circumscribed lytic lesion measuring 5 mm or greater in size. Ribs, clavicles and sternum: There is an expansile lytic lesion within the medial left clavicle with endosteal scalloping, cortical thinning and cortical breakthrough with abnormal associated soft tissue thickening along the bone surface. The lesion measures up to 3 cm in length and is stable from the prior exam. There is a lytic lesion involving the posterior right ninth rib at the costovertebral joint with disruption of the posterior cortex (image 627, series 3). Bony pelvis: There is a 1.3 cm sclerotic lesion within the right ilium, likely a bone island. No circumscribed lytic bone lesion measuring 5 mm or greater in size. Mild degenerative changes are noted at the hips. Lower extremities: No circumscribed lytic bone lesion measuring 5 mm or greater in size. Arterial calcifications are noted. NONOSSEOUS STRUCTURES: Soft tissues: Bilateral calcified breast implants are again shown. No soft tissue mass. Head/neck: There is generalized cerebral atrophy. There is asymmetric prominence of the CSF space overlying the left frontal lobe with associated mass effect measuring up to 10 mm in thickness suggestive of a chronic subdural hematoma. No cervical lymphadenopathy. Chest: Heart size is within normal limits. No pericardial effusion. Minimal coronary artery calcifications noted. The thoracic aorta is atherosclerotic without aneurysm. The main pulmonary artery is normal in caliber. The thyroid appears atrophic. No thoracic lymphadenopathy. There is motion artifact noted at the lung bases. Stable 5 mm nodule anteriorly within the left upper lobe (image 596, series 3). Stable tiny juxtapleural nodule within the right upper lobe (image 480, series 3). Stable 4 mm juxtapleural nodule within the right lower lobe (image 643, series 3). No consolidation. Fine linear areas of scarring or atelectasis noted at the lung bases. No pleural effusions. Abdomen and pelvis: There are multiple hypodense liver lesions again shown which appear stable, not further characterized on this limited noncontrast exam. Gallbladder is unremarkable. The spleen is not enlarged. The pancreas, adrenal glands and kidneys are unremarkable. There is a small hiatal hernia. There are no dilated bowel segments. There is diverticulosis of the sigmoid colon without evidence of acute diverticulitis. No lymphadenopathy identified. The urinary bladder is decompressed. Multiple pelvic phleboliths noted. IMPRESSION: 1. Stable expansile, lytic bone lesion with associated cortical destruction involving the medial left clavicle, corresponding with the site of recent biopsy. 2. There is a lytic lesion involving the posterior right ninth rib at the costovertebral joint with disruption of the posterior cortex. 3. No other lytic bone lesions identified. 4. 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 Correlation with prior outside studies, if available, would be helpful. This could be further evaluated with dedicated head CT. 5. Additional findings as above which are stable from the recent chest and abdominopelvic CT exams. ACTIONABLE RESULT: FOLLOW-UP Acuity: Actionable Findings: Neurological System-BRAIN Routing Code: NI_1 Recommendation: CT BRAIN WO IVCON Time Frame: Additional evaluation as described in the impression COMMUNICATION: Results will be communicated with the ordering provider via [employer] staff message or phone message by [employer] within 2 business days of report finalization. Algorithms for m (more content not included)... Invalid Interpretation Code [facility] BRIEF OP NOTon 01-30-2023 BRIEF OP NOT HNO ID: [id number] Author: Courtney Andrea MD Service: Radiology Author Type: Physician Type: Brief Op Note Filed: 01/30/2023 12:36 PM Note Text: BRIEF OPERATIVE / PROCEDURE NOTE LOG ID: [id number] SURGERY/PROCEDURE DATE: 01/30/2023 INCISION/PROCEDURE START TIME: 12:14 PM INCISION CLOSE/PROCEDURE END TIME: 12:24 PM SURGEON(S)/PROCEDURALIS T(S) AND ADMINISTRATOR(S): Surgeon(s) and Role: * Courtney Andrea MD - Primary No Additional Staff SURGERY/PROCEDURE(S): CT guided left clavicular head lesion core needle biopsy. ANESTHESIA: Procedural Sedation FINDINGS: 3 passes through the left clavicular head lesion. 1 pass with an 18 gauge cutting needle (little to no yield). 2 passes with the 15 gauge bone biopsy needle. ESTIMATED BLOOD LOSS: Minimal SPECIMENS: 2 cores submitted to surgical pathology on saline soaked gauze. COMPLICATIONS: None CLOSURE TECHNIQUE: Non-primary PRE-OP/PRE-PROCEDURE DIAGNOSIS: Left clavicular head lesion with pathologic fracture. POST-OP/POST-PROCEDURE DIAGNOSIS: Same as Preop SIGNATURE: Courtney Andrea MD PATIENT NAME: Kayley Dickinson DATE: January 30, 2023 TIME: 12:[address] [facility] [address] BX RIB/PELV/SRINIVASAN/SPINE P [place] 01-30-2023 CT BX RIB/PELV/SRINIVASAN/SPINE PROC * * *Final Report* * * DATE OF EXAM: Jan 30 2023 12:32PM [facility] 2036 - CT BX RIB/PELV/SRINIVASAN/SPINE PROC / PROCEDURE REASON: Pathological fracture of left clavicle * * * * Physician Interpretation * * * * RESULT: PROCEDURE PERFORMED: CT GUIDED LEFT CLAVICULAR LESION BIOPSY ON 01/30/2023 PRE-PROCEDURE DIAGNOSIS: Left clavicle lesion POST-PROCEDURE DIAGNOSIS: Same INDICATION FOR PROCEDURE: The patient is a 87 years old Female who presents with a lytic left clavicular lesion with a pathologic fracture. STAFF RADIOLOGIST: Courtney Andrea M.D. ADMINISTRATOR(S): None CONSENT: The risks, benefits, treatment options, potential complications and personnel involved were discussed with the patient. All questions were answered and consent was obtained. The patient indicated she was willing to proceed. The staff physician personally verified consent. TIME OUT: A time out was performed immediately prior to procedure start with the nursing, anesthesia and interventional team, correctly identifying the patient name, date of , procedure, anatomy (including marking of site and side), patient position, procedure consent form, relevant diagnostic and radiology test results, antibiotic administration (when indicated), safety precautions, and procedure-specific equipment needs. RESULT: PROCEDURE: After performing the time out, the medial left clavicular lesion was localized under CT. The skin overlying the clavicle was prepped and draped in the usual sterile fashion. Under direct CT guidance, a 15 gauge bone biopsy needle was advanced to the lesion. Through the needle attempt was made at an 18 gauge cutting needle biopsy which had little yield. 2 passes were then performed with the 15 gauge bone biopsy needle. The procedure was performed by the: attending radiologist, without an assistant corporate secretary. The attending radiologist performed the following procedural activities: Entire procedure. ANESTHESIA/SEDATION: Local anesthesia was achieved utilizing 5 cc 1% percent lidocaine. Vital signs were monitored by the nurse. START TIME/TIMEOUT TIME: 1214 END TIME: 1224 INTRA-SERVICE (SEDATION) TIME: 0 minutes PATIENT MONITORING: The staff physician personally supervised and directed an independent trained observer who assisted in monitoring the patient?s level of consciousness and physiological status throughout the procedure. COMPLICATIONS: None SIGN-OUT DISCUSSION: Completed ESTIMATED BLOOD LOSS: None CONTRAST: None CT ABDOMEN AND PELVIS RADIATION DOSE: Dose-length product (DLP) = 90 mGy*cm. SPECIMENS: 2 core biopsy specimen(s) was/were submitted to surgical pathology on saline soaked gauze. BIOPSY DEVICE: 15 gauge Bonopty core biopsy needle. IMPRESSION: CT GUIDED LEFT CLAVICLE BIOPSY DESCRIBED Transcribed Using Voice Recognition Transcribe Date/Time: Jan 30 2023 3:15P Dictated by: COURTNEY ANDREA MD This examination was interpreted and the report reviewed and electronically signed by: COURTNEY ANDREA MD on Jan 30 2023 3:19PM EST [id number] Normal [facility] HISTORY PHYSICALon HISTORY PHYSICAL HNO ID: [id number] Author: Srinivasa Thakur PA-C Service: Radiology Author Type: Physician Limousine Rental Clerk Type: HANDP Filed: 01/30/2023 9:51 AM Note Text: [facility] Diagnostic Procedure Center UPDATED HISTORY AND PHYSICAL PATIENT NAME: Kayley Dickinson SERVICE DATE: 01/30/2023 SERVICE TIME: 9:08 AM PHYSICAL EXAM MUST BE COMPLETED ON ADMISSION The History and Physical (completed in the past 30 days) has been reviewed and the patient has been examined. The contents accurately reflect the patient's condition with the following additions or revisions since the HANDP was completed. . BP 160/71 Pulse 70 Temp 36.5 ?C (97.7 ?F) Resp 18 Wt 50.8 kg (112 lb) SpO2 96% BMI 21.34 kg/m? BMI 21.34 kg/(m2) GENERAL: Alert, no distress, cooperative, pleasant. Patient has c/o left clavicle mass pain 4/10 today. She admits to no other immediate complaints. LUNG:Lungs clear to auscultation, Good diaphragmatic excursion, no wheezing/rhonchi/rales. CARDIAC:Normal S1 and S2; no rubs, murmurs, or gallops, Rhythm: regular rate and rhythm. Assessment: 1.Pathologic fracture of left clavicle 2.CAD 3.Squamous cell skin cancer. Plan: Patient is optimized for sedation for the below procedure in agreement with the attending physician. Needle biopsy of upper extremity bone. I spent a total of 10 minutes on the date of the service which included preparing to see the patient, [id number] patient care, obtaining and/or reviewing separately obtained history, and performing a medically appropriate examination. This HANDP can be found in the Electronic Medical Record dated 01/17/2023. SIGNATURE: Srinivasa Thakur PA-C DATE: January 30, 2023 TIME: 9:08 AM Normal [facility] SURGICAL PATHOLOGYon 023 CASE REPORT Normal [facility] Comment on above: Order Comment: Speci men Type: SPECIMEN FROM BONE Ordering Facility: [facility] Address: [address] [place], [place] [address] Result Comment: Surg ical Pathology Report Case: [id number] Authorizing Provider: Courtney Andrea MD Collected: 01/30/2023 12:10 PM Ordering Location: [facility]AL Received: 01/30/2023 12:40 PM RADIOLOGY Pathologist: Rich Martin V, MD, PhD Specimen: BONE BIOPSY, Left clavicular head lesion Performed By: #### S #### [facility] CLIA [id number] [address] [place] [address] CLINICAL HISTORY Normal [facility] Comment on above: Order Comment: Caleb bradley Type: SPECIMEN FROM BONE Ordering Facility: [facility] Address: [address] [place], [place] [address] Result Comment: Pre- op diagnosis: Pathological fracture of left clavicle, initial encounter [M84.412A] Abnormal findings on diagnostic imaging of other specified body structures [R93.89] Performed By: #### S #### [facility] CLIA [id number] [address] [place] [address] OF [place] DIAGNOSIS COMMENT Normal [facility] Comment on above: Order Comment: Caleb bradley Type: SPECIMEN FROM BONE Ordering Facility: [facility] Address: [address] [place], [place] [address] Result Comment: Hist ologic sections show fragments of blood clot associated with clusters of plasma cells. The plasma cells are intermediate sized, with abundant cytoplasm and round, eccentric nuclei with mature chromatin. Immunohistochemical stains have been performed with appropriately staining controls. The plasma cells are positive for CD138. On the stains for kappa or lambda they appear monotypic kappa. 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 Further classification of this process requires correlation with clinical, radiologic, and laboratory findings. Laboratory Developed Test (LDT) Disclaimer: Performance characteristics of immunohistochemical, immunofluorescent and chromogenic in-situ hybridization tests have been determined by the performing laboratory within [facility]???s Srinivasa Jonathan [facility] Pathology and Laboratory Medicine [place] ([facility], [facility], [facility], [facility], [facility], or [facility]) in a manner consistent with CLIA requirements. One or more of these tests have not been cleared or approved by the FDA. [facility] is regulated under CLIA as qualified to perform high-complexity testing. These tests are used for clinical purposes. They should not be regarded as investigational or for research. Positive and negative controls stain appropriately. Performed By: #### S #### [facility] CLIA [id number] [address] [place] [address] FINAL DIAGNOSIS Normal [facility] Comment on above: Order Comment: Speci men Type: SPECIMEN FROM BONE Ordering Facility: [facility] Address: [address] [address] Result Comment: A. Mark esion, left clavicular head, biopsy: - Plasma cell neoplasm (kappa). - See comment. CVC/mm/02/01/2023 Performed By: #### S #### [facility] CLIA [id number] [address] [place] [address] FINAL PERFORMING LAB Normal [facility] Comment on above: Order Comment: Speci men Type: SPECIMEN FROM BONE Ordering Facility: [facility] Address: [address] [address] Result Comment: Diag nostic interpretation performed at [facility], [address] [place] [address] CLIA# [id number] Unemployment Claims Adjudicator: Rogelio Landeros M.D. Performed By: #### S #### [facility] CLIA [id number] [address] [place] [address] GROSS DESCRIPTION A. BONE BIOPSY Normal [facility] Comment on above: Order Comment: Speci men Type: SPECIMEN FROM BONE Ordering Facility: [facility] Address: [address] [place] [address] Result Comment: Rece ived in formalin, labeled left clavicular lesion are multiple, hemorrhagic tissue fragments, aggregating to 2.0 x 0.4 x 0.2 cm. The specimen is entirely submitted in cassette A1. AKA January 30, 2023 4:22 PM Gross examination performed at [facility], [address] [place] [address] Performed By: #### S #### [facility] CLIA [id number] [address] [place] [address] OF [facility] ALLIED HEALTHon 01-23-2023 ALLIED HEALTH HNO ID: [id number] Author: RT Guerda(R) Service: ? Author Type: Steam Finisher Type: Allied Health Filed: 01/23/2023 1:14 PM Note Text: Radiology Service Progress Note DATE OF SERVICE: January 23, 2023 TIME: 1:13 PM PATIENT IDENTITY VERIFICATION COMPLETED USING TWO (2) STANDARD IDENTIFIERS: Name and Date of confirmed by patient verbally. FALL SCREENING: Has the patient had 2 falls in the last year or 1 fall with injury or currently using an Ambulatory Assistive Device (Walker, Cane, Wheelchair, Crutches, etc.)? No PATIENT GENDER DATA: Female. status: : No status: NO. PATIENT RELEVANT IMPLANT DATA REVIEWED: Not Applicable ALLERGIES: Reviewed and unchanged CONTRAST ALLERGY: NO. EXAM: CT -CONTRAST INDUCED NEPHROPATHY RISK FACTORS: Patient age > 60 years CREATININE: Creatinine Date Value Ref Range Status 01/17/2023 0.75 0.58 - 0.96 mg/dL Final 12/29/2022 0.74 0.58 - 0.96 mg/dL Final 02/11/2022 0.75 0.58 - 0.96 mg/dL Final Estimated Glomerular Filtration Rate Date Value Ref Range Status 01/17/2023 78 >=60 mL/min/1.73m? Final Comment: Estimated Glomerular Filtration Rate (eGFR) is calculated using the 2020 CKD-EPI creatinine equation. This equation utilizes serum creatinine, sex, and age as parameters. The creatinine assay has traceable calibration to isotope dilution-mass spectrometry. Refer to KDIGO guidelines for clinical interpretation. In patients with unstable renal function, e.g. those with acute kidney injury, the eGFR may not accurately reflect actual GFR. eGFR- Date Value Ref Range Status 02/04/2021 >60 Final P.O.C.T. RESULTS: POC done: Yes, See Lab Tab January 23, 2023 TREATMENT: N/A PERIPHERAL IV DATA: Ambulatory: A peripheral IV was started in the Right antecubital site with a Angio cath: 20 gauge. RADIOLOGY DEPARTMENT: CT; Exam(s) Completed: Chest Abdomen Pelvis SIGNATURE: Pam Davis RT(R) PATIENT NAME: Kayley Dickinson DATE: January 23, 2023 TIME: 1:13 PM Normal [facility] CT ABD/PEL W IVCONon 023 CT ABD/PEL W IVCON * * *Final Report* * * DATE OF EXAM: Jan 23 2023 1:08PM [facility] [place] CT ABD/PEL W IVCON / PROCEDURE REASON: Pathological fracture of left clavicle, initial encounter * * * * Physician Interpretation * * * * EXAMINATION: CT ABDOMEN AND PELVIS WITH IV CONTRAST CLINICAL HISTORY: Pathologic fracture of the left clavicle TECHNIQUE: CT of the abdomen and pelvis was performed using standard technique, scanning from just above the dome of the diaphragm to the symphysis pubis. MQ: CTAP_3 Contrast: IV: 100 ml of Omnipaque 350 Oral: 20 ml of Omni 240 10-25ml diluted with water CT Radiation dose: Integrated Dose-length product (DLP) for this visit = 767.45 mGy*cm. CT Dose Reduction Employed: Automated exposure control (AEC) COMPARISON: None. Limitations: Patient respiratory motion artifact. RESULT: Liver: Scattered throughout the liver, there are numerous hypodense lesions. The vast majority of these are too small to adequately characterize. Some of the larger lesions appear to be cysts. Overall assessment is degraded by patient respiratory motion artifact. One of these lesions in the right lobe is seen best on image 3:217 2 has a irregular contour, measures 13 mm, and exhibits internal attenuation exceeding simple fluid. Therefore, this could represent a mass. Alternatively, this appearance could be artifactual and related to respiratory motion. Biliary: No bile duct dilation. Gallbladder is unremarkable. Spleen: No mass. No splenomegaly. Pancreas: No mass or duct dilation. Adrenals: No mass. Kidneys: No mass, calculus or hydronephrosis. GI tract: Small hiatal hernia. No evidence for bowel obstruction. Prominent diverticulosis of the sigmoid colon without active diverticulitis. Lymph nodes: No abdominal or pelvic lymphadenopathy. Mesentery/Peritoneum: No ascites or mass. Retroperitoneum: No mass. Vasculature: No evidence for abdominal aortic aneurysm although the aorta is atherosclerotic. Celiac artery and superior mesenteric artery are patent. Main portal vein is patent. Pelvis: No mass, ascites or fluid collection. Status post hysterectomy. Bones/Soft Tissues: Sclerotic lesion at the right iliac bone measuring 12 mm is nonspecific but is potentially a bone island. There is lumbar spinal scoliosis and degenerative spondylosis. No lytic lesions are identified. Lower thorax: Discussed separately. Nurse Informatics Educator (topogram) images: No additional findings. IMPRESSION: Exam quality is degraded by patient respiratory motion artifact. There are innumerable hepatic hypodensities. Most of these are too small to adequately characterize. Statistically, these are likely cysts. One hepatic lesion is larger and more indeterminate. Its appearance is possibly secondary to artifact but a solid lesion is not excluded. MRI of the liver is suggested for further characterization. ACTIONABLE RESULT: FOLLOW-UP Acuity: Actionable Findings: Liver Routing Code: LV_1 Recommendation: MRI LIVER WO/W IVCON (add Dotarem in comments) Time Frame: At the discretion of the clinical team. COMMUNICATION: Results will be communicated with the ordering provider via [employer] staff message or phone message by Imaging Support Services within 2 business days of report finalization. Algorithms for management of incidental imaging findings can be found on the [facility] Intranet Sharepoint site at: [email or web address] [email or web address] Managing%20Incidental%2 0Findi ngs%20at%20Imaging/Form s/AllItems.aspx Policy Director: LIBERTY Transcribe Date/Time: Jan 25 2023 7:29A Dictated by : RUFINA SCHULTZ MD This examination was interpreted and the report reviewed and electronically signed by: RUFINA SCHULTZ MD on Jan 25 2023 7:35AM EST [id number] ACTIONABLE Invalid Interpretation Code [facility] CT CHEST W IVCONon CT CHEST W IVCON * * *Final Report* * * DATE OF EXAM: Jan 23 2023 1:08PM [facility] [place] [facility] [place] CT CHEST W IVCON / PROCEDURE REASON: Pathological fracture of left clavicle, initial encounter * * * * Physician Interpretation * * * * EXAMINATION: CHEST CT WITH CONTRAST CLINICAL HISTORY: Pathological fracture of the left clavicle Technique: Spiral CT acquisition of the chest from the thoracic inlet to the upper abdomen following IV contrast. MQ: CTCW_6 Contrast: 100 mL Omnipaque [address] Radiation dose: Integrated Dose-length product (DLP) for this visit = 767.45 mGy*cm CT Dose Reduction Employed: Automated exposure control (AEC) Comparison: None RESULT: Limitations: Patient respiratory motion artifact Lines, tubes, and devices: None. Lung parenchyma and airways: At the left upper lobe anteriorly (5:120), there is a 5 mm nodule. A couple of smaller right lung nodules are seen on images 66 and 147 in the right upper lobe and right lower lobe respectively. No large masses. No active infiltrates. Pleural space: No pleural effusion. No pleural thickening. Lower neck, lymph nodes, and mediastinum: The imaged thyroid gland is normal. No lymphadenopathy in the supraclavicular, axillary, mediastinal, or hilar regions. Heart, pericardium, and thoracic vessels: The thoracic aorta and main pulmonary artery are normal in caliber. The cardiac chambers are normal in size. No coronary artery atherosclerotic calcifications are noted, although the study is not optimized for coronary assessment. No pericardial effusion or thickening. Bones and soft tissues: Osteolytic changes are noted at the head of the left clavicle where there is also a pathological fracture. Otherwise, no lytic changes. There are bilateral breast implants with capsular calcification. Upper abdomen: Discussed separately Nurse Informatics Educator (topogram) images: No additional findings. IMPRESSION: Osteolytic changes at the head of the left clavicle with pathological fracture. A few lung nodules measuring up to 5 mm. Follow-up guidelines are discussed below. Incidental Finding: Follow-up Acuity: Incidental Finding: Solid: <6 mm (solitary or multiple) Routing Code: N/A Recommendation: No imaging follow-up is recommended Time Frame: N/A Comments: If there are risk factors for lung malignancy, a follow-up chest CT exam could be obtained in 12 months Policy Director[facility] Transcribe Date/Time: Jan 25 2023 7:46A Dictated by : RUFINA SCHULTZ MD This examination was interpreted and the report reviewed and electronically signed by: RUFINA SCHULTZ MD on Jan 25 2023 7:52AM EST [id number] ACTIONABLE Invalid Interpretation Code [facility] C-REACTIVE PROTEIN (CRP)on 0 01-17-2023 CRP [Mass/Vol] <0.9 mg/dL [facility] CBC W Auto Differential pane l (Bld)on 01-17-2023 Basophils (Bld) [#/Vol] <0.11 k/uL [facility] Basophils/100 WBC (Bld) 0.4 % [facility] Differential cell count method Nom (Bld) Auto [facility] Eosinophils (Bld) [#/Vol] 0.15 10*3/uL <0.46 k/uL [facility] Eosinophils/100 WBC (Bld) 2.8 % [facility] Erythrocyte distribution width (RBC) [Ratio] 13.2 % 11.5 - 15.0 % [facility] Hematocrit (Bld) [Volume fraction] 43.9 % 36.0 - 46.0 % [facility] Hemoglobin (Bld) [Mass/Vol] 13.8 g/dL 11.5 - 15.5 g/dL [facility] Immature granulocytes (Bld) [#/Vol] <0.10 k/uL [facility] Immature granulocytes/100 WBC (Bld) 0.4 % [facility] Lymphocytes (Bld) [#/Vol] 1.38 10*3/uL 1.00 - 4.00 k/uL [facility] Lymphocytes/100 WBC (Bld) 25.7 % [facility] MCH (RBC) [Entitic mass] 29.9 pg 26.0 - 34.0 pg [facility] MCHC (RBC) [Mass/Vol] 31.4 g/dL 30.5 - 36.0 g/dL [facility] MCV (RBC) [Entitic vol] 95.0 fL 80.0 - 100.0 fL [facility] Monocytes (Bld) [#/Vol] 0.47 10*3/uL <0.87 k/uL [facility] Monocytes/100 WBC (Bld) 8.8 % [facility] Neutrophils (Bld) [#/Vol] 3.32 10*3/uL 1.45 - 7.50 k/uL [facility] Neutrophils/100 WBC (Bld) 61.9 % [facility] Nucleated RBC (Bld) [#/Vol] <0.01 k/uL [facility] Nucleated RBC/100 WBC (Bld) [Ratio] 0.0 /100 WBC [facility] Platelet mean volume (Bld) [Entitic vol] 10.7 fL 9.0 - 12.7 fL [facility] Platelets (Bld) [#/Vol] 158 10*3/uL 150 - 400 k/uL [facility] RBC (Bld) [#/Vol] 4.62 10*6/uL 3.90 - 5.2 0 m/uL [facility] WBC (Bld) [#/Vol] 5.36 10*3/uL 3.70 - 11. 00 k/uL [facility] Comprehensive metabolic 2000 panelon 01-17-2023 Albumin [Mass/Vol] 4.3 g/dL 3.9 - 4.9 g/dL [facility] ALP [Catalytic activity/Vol] 39 U/L 34 - 123 U/L [facility] ALT [Catalytic activity/Vol] 28 U/L 7 - 38 U/L [facility] Anion gap [Moles/Vol] 9 mmol/L 9 - 18 mmol/L [facility] AST [Catalytic activity/Vol] 23 U/L 13 - 35 U/L [facility] Bilirubin [Mass/Vol] 0.4 mg/dL 0.2 - 1 .3 mg/dL [facility] Calcium [Mass/Vol] 9.5 mg/dL 8.5 - 10. 2 mg/dL [facility] Chloride [Moles/Vol] 104 mmol/L 97 - 10 5 mmol/L [facility] CO2 [Moles/Vol] 27 mmol/L 22 - 30 mmol/L [facility] Creatinine [Mass/Vol] 0.75 mg/dL 0.58 - 0.96 mg/dL [facility] Estimated Glomerular Filtration Rate 78 mL/min/1.73m >=60 mL/min/1.73m [facility] Glucose [Mass/Vol] 83 mg/dL 74 - 99 mg/dL [facility] Potassium [Moles/Vol] 4.6 mmol/L 3.7 - 5.1 mmol/L [facility] Protein [Mass/Vol] 7.4 g/dL 6.3 - 8.0 g/dL [facility] Sodium [Moles/Vol] 140 mmol/L 136 - 144 mmol/L [facility] Urea nitrogen [Mass/Vol] 17 mg/dL 7 - 21 mg/dL [facility] ESR Westergren method (Bld) [Velocity]on 01-17-2023 ESR (Bld) [Velocity] 20 mm/h 0 - 20 mm/hr [facility] T3 FREE BLDon 01-17-2023 Free T3 [Mass/Vol] 2.7 pg/mL 2.3 - 4.1 pg/mL [facility] T4 FREE/FREE THYROXon 2022 Free T4 [Mass/Vol] 1.2 ng/dL 0.9 - 1.7 ng/dL [facility] TSH Don 01-17-2023 TSH Qn 1.610 m[IU]/L 0.270 - 4.200 mIU/L [facility] CBC W Auto Differential pane l (Bld)on 12-27-2022 Basophils (Bld) [#/Vol] <0.11 k/uL [facility] Basophils/100 WBC (Bld) 0.1 % [facility] Differential cell count method Nom (Bld) Auto [facility] Eosinophils (Bld) [#/Vol] <0.46 k/uL [facility] Eosinophils/100 WBC (Bld) 0.1 % [facility] Erythrocyte distribution width (RBC) [Ratio] 12.9 % 11.5 - 15.0 % [facility] Hematocrit (Bld) [Volume fraction] 41.4 % 36.0 - 46.0 % [facility] Hemoglobin (Bld) [Mass/Vol] 13.5 g/dL 11.5 - 15.5 g/dL [facility] Immature granulocytes (Bld) [#/Vol] 0.04 10*3/uL <0.10 k/uL [facility] Immature granulocytes/100 WBC (Bld) 0.4 % [facility] Lymphocytes (Bld) [#/Vol] 1.11 10*3/uL 1.00 - 4.00 k/uL [facility] Lymphocytes/100 WBC (Bld) 12.4 % [facility] MCH (RBC) [Entitic mass] 30.2 pg 26.0 - 34.0 pg [facility] MCHC (RBC) [Mass/Vol] 32.6 g/dL 30.5 - 36.0 g/dL [facility] MCV (RBC) [Entitic vol] 92.6 fL 80.0 - 100.0 fL [facility] Monocytes (Bld) [#/Vol] 0.56 10*3/uL <0.87 k/uL [facility] Monocytes/100 WBC (Bld) 6.3 % [facility] Neutrophils (Bld) [#/Vol] 7.23 10*3/uL 1.45 - 7.50 k/uL [facility] Neutrophils/100 WBC (Bld) 80.7 % [facility] Nucleated RBC (Bld) [#/Vol] <0.01 k/uL [facility] Nucleated RBC/100 WBC (Bld) [Ratio] 0.0 /100 WBC [facility] Platelet mean volume (Bld) [Entitic vol] 10.6 fL 9.0 - 12.7 fL [facility] Platelets (Bld) [#/Vol] 195 10*3/uL 150 - 400 k/uL [facility] RBC (Bld) [#/Vol] 4.47 10*6/uL 3.90 - 5.2 0 m/uL [facility] WBC (Bld) [#/Vol] 8.96 10*3/uL 3.70 - 11. 00 k/uL [facility] XR CLAVICLE 2V LEFTon 2022 [facility] XR Clavicle - left 2 Viewson 12-26-2022 IMPRESSION: No acute osseous abnormality Policy Director: [employer] Transcribe Date/Time: Dec 26 2022 2:22P Dictated by : SUMA ANDINO MD This examination was interpreted and the report reviewed and electronically signed by: SUMA ANDINO MD on Dec 26 2022 2:24PM EST DIVISION OF RADIOLOGY * * *Final Report* * * DATE OF EXAM: Dec 26 2022 2:17PM [facility] [id number] - XR CLAVICLE 2V LT / PROCEDURE REASON: Clavicle pain * * * * Physician Interpretation * * * * EXAMINATION: XR CLAVICLE 2V LT CLINICAL HISTORY: Pain in left clavicle Technique: XR CLAVICLE 2V LT -- LEFT with 2 views on 2 images Comparison: None RESULT: No acute fracture or dislocation. Mild acromioclavicular joint space narrowing. DIVISION OF RADIOLOGY Provider, [facility] - 12/26/2022 * * *Final Report* * * DATE OF EXAM: Dec 26 2022 2:17PM [facility] 5316 - XR CLAVICLE 2V LT / PROCEDURE REASON: Clavicle pain * * * * Physician Interpretation * * * * EXAMINATION: XR CLAVICLE 2V LT CLINICAL HISTORY: Pain in left clavicle Technique: XR CLAVICLE 2V LT -- LEFT with 2 views on 2 images Comparison: None RESULT: No acute fracture or dislocation. Mild acromioclavicular joint space narrowing. IMPRESSION IMPRESSION: No acute osseous abnormality Policy Director: [facility] Transcribe Date/Time: Dec 26 2022 2:22P Dictated by : SUMA ANDINO MD This examination was interpreted and the report reviewed and electronically signed by: SUMA ANDINO MD on Dec 26 2022 2:24PM EST [facility] Radiology Study observation (narrative) Holger henry [facility] XR Clavicle - left 2 ViewsOr dered By: [facility] Provider on 12-26-2022 [facility] No Panel Informationon 03-24 [facility] CBC With Platelet and Differ entialon 02-06-2019 Abs Imm Granulocytes 0.02 E9/L Normal [facility] Basophils (Bld) [#/Vol] 0.03 E9/L Normal 0.00-0.20 S [facility] Basophils/100 WBC (Bld) 0.6 % Normal 0.0-2.0 [facility] Eosinophils (Bld) [#/Vol] 0.14 E9/L Normal 0.05-0.50 [facility] Eosinophils/100 WBC (Bld) 2.7 % Normal 0.0-6.0 [facility] Erythrocyte distribution width (RBC) [Ratio] 13.6 fL Normal 11.5-15.0 [facility] Hematocrit (Bld) [Volume fraction] 44.4 % Normal 34.0-48.0 [facility] Hemoglobin (Bld) [Mass/Vol] 14.0 g/dL Normal 11.5-15.5 [facility] Imm Granulocytes 0.4 % Normal 0.0-5.0 [facility] Lymphocytes (Bld) [#/Vol] 1.25 E9/L Low 1.50-4.00 [facility] Lymphocytes/100 WBC (Bld) 24.0 % Normal 20.0-42.0 [facility] MCH (RBC) [Entitic mass] 29.4 pg Normal 26.0-35.0 [facility] MCHC (RBC) [Mass/Vol] 31.5 % Low 32.0-34.5 [facility] MCV (RBC) [Entitic vol] 93.3 fL Normal 80.0-99.9 [facility] Monocytes (Bld) [#/Vol] 0.47 E9/L Normal 0.10-0.95 [facility] Monocytes/100 WBC (Bld) 9.0 % Normal 2.0-12.0 [facility] Neutrophils (Bld) [#/Vol] 3.30 E9/L Normal 1.80-7.30 [facility] Neutrophils/100 WBC (Bld) 63.3 % Normal 43.0-80.0 [facility] Platelet mean volume (Bld) [Entitic vol] 11.7 fL Normal 7.0-12.0 [facility] Platelets (Bld) [#/Vol] 153 E9/L Normal 130-450 [facility] RBC (Bld) [#/Vol] 4.76 E12/L Normal 3.50-5.50 [facility] WBC (Bld) [#/Vol] 5.2 E9/L Normal 4.5-11.5 [facility] Comprehensive Metabolic Pane kimberly 02-06-2019 Albumin [Mass/Vol] 4.3 g/dL Normal 3.5-5.2 [facility] ALP [Catalytic activity/Vol] 45 U/L Normal 35-104 [facility] ALT [Catalytic activity/Vol] 23 U/L Normal 0-32 [facility] Anion gap [Moles/Vol] 14 mmol/L Normal 7-16 [facility] AST [Catalytic activity/Vol] 23 U/L Normal 0-31 [facility] Bilirubin [Mass/Vol] 0.3 mg/dL Normal 0.0-1.2 [facility] Calcium [Mass/Vol] 9.5 mg/dL Normal 8.6-10.2 [facility] Chloride [Moles/Vol] 104 mmol/L Normal 98-107 [facility] CO2 [Moles/Vol] 26 mmol/L Normal 22-29 [facility] Creatinine [Mass/Vol] 0.8 mg/dL Normal 0.5-1.0 [facility] GFR/1.73 sq M predicted among blacks MDRD (S/P/Bld) [Vol rate/Area] mL/min/{1.73_m2} Normal [facility] GFR/1.73 sq M predicted among non-blacks MDRD (S/P/Bld) [Vol rate/Area] mL/min/{1.73_m2} Normal >=60 [facility] Comment on above: Result Comment: [employer] nata Kidney Disease: less than 60 ml/min/1.73 sq.m. Kidney Failure: less than 15 ml/min/1.73 sq.m. Results valid for patients 18 years and older. Glucose [Mass/Vol] 103 mg/dL High 74-99 [facility] Potassium [Moles/Vol] 4.7 mmol/L Normal 3.5-5.0 [facility] Protein [Mass/Vol] 7.0 g/dL Normal 6.4-8.3 [facility] Sodium [Moles/Vol] 144 mmol/L Normal 132-146 [facility] Urea nitrogen [Mass/Vol] 17 mg/dL Normal 8-23 [facility] Lipid Panelon 02-06-2019 Cholesterol [Mass/Vol] 183 mg/dL Normal 0-199 [facility] Cholesterol in HDL [Mass/Vol] 51 mg/dL Normal >40 [facility] Cholesterol in LDL [Mass/Vol] 117 mg/dL High 0-99 [facility] Triglyceride [Mass/Vol] 74 mg/dL Normal 0-149 [facility] VLDL Cholesterol (Calculated) 15 mg/dL Normal [facility] TSH w/out Reflexon 9 TSH Qn 1.490 uIU/mL Normal 0.270-4.200 [facility] CBC With Platelet and Differ entialon 08-08-2018 Abs Imm Granulocytes 0.01 E9/L Normal [facility] Basophils (Bld) [#/Vol] 0.02 E9/L Normal 0.00-0.20 [facility] Basophils/100 WBC (Bld) 0.4 % Normal 0.0-2.0 [facility] Eosinophils (Bld) [#/Vol] 0.11 E9/L Normal 0.05-0.50 [facility] Eosinophils/100 WBC (Bld) 2.0 % Normal 0.0-6.0 [facility] Erythrocyte distribution width (RBC) [Ratio] 13.1 fL Normal 11.5-15.0 [facility] Hematocrit (Bld) [Volume fraction] 45.5 % Normal 34.0-48.0 [facility] Hemoglobin (Bld) [Mass/Vol] 14.3 g/dL Normal 11.5-15.5 [facility] Imm Granulocytes 0.2 % Normal 0.0-5.0 [facility] Lymphocytes (Bld) [#/Vol] 1.62 E9/L Normal 1.50-4.00 [facility] Lymphocytes/100 WBC (Bld) 29.3 % Normal 20.0-42.0 [facility] MCH (RBC) [Entitic mass] 29.7 pg Normal 26.0-35.0 [facility] MCHC (RBC) [Mass/Vol] 31.4 % Low 32.0-34.5 [facility] MCV (RBC) [Entitic vol] 94.6 fL Normal 80.0-99.9 [facility] Monocytes (Bld) [#/Vol] 0.47 E9/L Normal 0.10-0.95 [facility] Monocytes/100 WBC (Bld) 8.5 % Normal 2.0-12.0 [facility] Neutrophils (Bld) [#/Vol] 3.30 E9/L Normal 1.80-7.30 [facility] Neutrophils/100 WBC (Bld) 59.6 % Normal 43.0-80.0 [facility] Platelet mean volume (Bld) [Entitic vol] 11.8 fL Normal 7.0-12.0 [facility] Platelets (Bld) [#/Vol] 161 E9/L Normal 130-450 [facility] RBC (Bld) [#/Vol] 4.81 E12/L Normal 3.50-5.50 [facility] WBC (Bld) [#/Vol] 5.5 E9/L Normal 4.5-11.5 [facility] Comprehensive Metabolic Pane kimberly 08-08-2018 Albumin [Mass/Vol] 4.3 g/dL Normal 3.5-5.2 [facility] ALP [Catalytic activity/Vol] 40 U/L Normal 35-104 [facility] ALT [Catalytic activity/Vol] 27 U/L Normal 0-32 [facility] Anion gap [Moles/Vol] 16 mmol/L Normal 7-16 [facility] AST [Catalytic activity/Vol] 22 U/L Normal 0-31 [facility] Bilirubin [Mass/Vol] 0.3 mg/dL Normal 0.0-1.2 [facility] Calcium [Mass/Vol] 9.4 mg/dL Normal 8.6-10.2 [facility] Chloride [Moles/Vol] 103 mmol/L Normal 98-107 [facility] CO2 [Moles/Vol] 25 mmol/L Normal 22-29 [facility] Creatinine [Mass/Vol] 0.8 mg/dL Normal 0.5-1.0 [facility] GFR/1.73 sq M predicted among blacks MDRD (S/P/Bld) [Vol rate/Area] mL/min/{1.73_m2} Normal [facility] GFR/1.73 sq M predicted among non-blacks MDRD (S/P/Bld) [Vol rate/Area] mL/min/{1.73_m2} Normal >=60 [facility] Comment on above: Result Comment: [employer] nata Kidney Disease: less than 60 ml/min/1.73 sq.m. Kidney Failure: less than 15 ml/min/1.73 sq.m. Results valid for patients 18 years and older. Glucose [Mass/Vol] 99 mg/dL Normal 74-99 [facility] Potassium [Moles/Vol] 4.7 mmol/L Normal 3.5-5.0 [facility] Protein [Mass/Vol] 6.9 g/dL Normal 6.4-8.3 [facility] Sodium [Moles/Vol] 144 mmol/L Normal 132-146 [facility] Urea nitrogen [Mass/Vol] 15 mg/dL Normal 8-23 [facility] Lipid Panelon 08-08-2018 Cholesterol [Mass/Vol] 177 mg/dL Normal 0-199 [facility] Cholesterol in HDL [Mass/Vol] 46 mg/dL Normal >40 [facility] Cholesterol in LDL [Mass/Vol] 108 mg/dL High 0-99 [facility] Triglyceride [Mass/Vol] 115 mg/dL Normal 0-149 [facility] VLDL Cholesterol (Calculated) 23 mg/dL Normal [facility] TSH w/out Reflexon 9 TSH Qn 1.030 uIU/mL Normal 0.270-4.200 [facility] Surgical Specimenon 05-14-20 18 Surgical Specimen [facility] OF [facility] DUD[facility] [address] [address] FINAL SURGICAL PATHOLOGY REPORT NAME: KAYLEY DICKINSON Date of 05/14/2018 Collection: Medical Record [id number] Date of 05/15/2018 Number: Receipt: Age: 82 Y Sex: F Date 05/17/2018 09:03 Reported: Date Of : 1935 Financial [id number] Admitting MT Number: Physician: JESSE Patient SWP Ordering MT Location: Physician: JESSE Accession Number: [id number] Diagnosis: Lesion of vulva, side/site not further specified, excision: Lichen sclerosis (et atrophicus). Comment: No epithelial dysplasia or atypia is seen. No malignancy is identified. If clinical suspicion for malignancy persist, re-biopsy may be helpful. DARSHANA SHIN M.D. (Electronic Signature) Specimen Submitted: VULVA, PARTIAL OR TOTAL RESECTION Clinical Notes: Operative Procedure: Excision of vulvar lesion. Preoperative Dx: Fourchette vulvar mass. Postoperative Dx:: Same. Microscopic Evaluation: Was performed. Gross Description: Received is a container of formalin labeled as Kayley Dickinson vulvar lesion.' The specimen consists of a champion/andersen, wrinkled strip of tissue measuring 2.7 x 0.6 x 0.5 cm. The specimen is inked black and is sectioned to reveal a champion/andersen cut surface. Entirely submitted in A1 and A2. (KAREN:JS) CODES: [id number]; Department of Pathology Page 1 of 1 Normal [facility] Vital Signs Date Time Vital Sign Value Performing Clinician Facility 03-21-2025 12:11-0400 Body mass index (BMI) [Ratio] 21.72 kg/m2 Alvin Balderas APRN.[employer] Work Phone: [facility] 03-21-2025 12:11-0400 Body temperature 97.3 [degF] Saveta Andrey DRAGGER.[employer] Work Phone: [facility] 03-21-2025 12:11-0400 Body weight 51.3 kg Saveta Andrey DRAGGER.[employer] Work Phone: [facility] 03-21-2025 12:11-0400 Diastolic blood pressure 62 mm[Hg] Saveta Andrey DRAGGER.[employer] Work Phone: [facility] 03-21-2025 12:11-0400 Heart rate 69 /min Saveta Andrey DRAGGER.[employer] Work Phone: [facility] 03-21-2025 12:11-0400 Respiratory rate 12 /min Saveta Andery DRAGGER.[employer] Work Phone: [facility] 03-21-2025 12:11-0400 SaO2% (BldA) [Mass fraction] 98 % Saveta Anrdey DRAGGER.[employer] Work Phone: [facility] 03-21-2025 12:11-0400 Systolic blood pressure 157 mm[Hg] Saveta Andrey DRAGGER.[employer] Work Phone: [facility] 03-11-2025 12:03-0400 Diastolic blood pressure 66 mm[Hg] Ruthy Valle PA-C Work Phone: [facility] 03-11-2025 12:03-0400 Systolic blood pressure 138 mm[Hg] Ruthy FREY-C Work Phone: [facility] 03-11-2025 11:43-0400 Body height 153.7 cm Ruthy Valle PA-C Work Phone: [facility] 03-11-2025 11:43-0400 Body mass index (BMI) [Ratio] 21.36 kg/m2 Ruthy FREY-C Work Phone: [facility] 03-11-2025 11:43-0400 Body temperature 98.49 [degF] Ruthy Valle PA-C Work Phone: [facility] 03-11-2025 11:43-0400 Body weight 50.44 kg Ruthy Valle PA-C Work Phone: [facility] 03-11-2025 11:43-0400 Heart rate 70 /min Ruthy Valle PA-C Work Phone: [facility] 03-11-2025 11:43-0400 Respiratory rate 16 /min Ruthy Valle PA-C Work Phone: [facility] 03-11-2025 11:43-0400 SaO2% (BldA) [Mass fraction] 98 % Ruthy Valle PA-C Work Phone: [facility] 01-23-2025 12:45-0400 Body mass index (BMI) [Ratio] 21.37 kg/m2 Vince Freitas APRN.[employer] Work Phone: [facility] 01-23-2025 12:45-0400 Body temperature 97 [degF] Vince Freitas APRN.[employer] Work Phone: [facility] 01-23-2025 12:45-0400 Body weight 52 kg Vince Freitas APRN.[employer] Work Phone: [facility] Comment on above: with shoes 01-23-2025 12:45-0400 Diastolic blood pressure 46 mm[Hg] Vince Freitas APRN.[employer] Work Phone: [facility] 01-23-2025 12:45-0400 Heart rate 68 /min Vince Freitas APRN.[employer] Work Phone: [facility] 01-23-2025 12:45-0400 Respiratory rate 18 /min Vince Freitas APRN.[employer] Work Phone: [facility] 01-23-2025 12:45-0400 SaO2% (BldA) [Mass fraction] 100 % Vince Freitas APRN.[employer] Work Phone: [facility] Comment on above: ra 01-23-2025 12:45-0400 Systolic blood pressure 124 mm[Hg] Vince Freitas APRN.[employer] Work Phone: [facility] 12-25-2024 10:17-0400 Body mass index (BMI) [Ratio] 20.96 kg/m2 Jaime Beatty MD Work Phone: [facility] 12-25-2024 10:17-0400 Body temperature 97.7 [degF] Jaime Beatty MD Work Phone: [facility] 12-25-2024 10:17-0400 Body weight 51 kg Jaime Beatty MD Work Phone: [facility] 12-25-2024 10:17-0400 Diastolic blood pressure 56 mm[Hg] Jaime Beatty MD Work Phone: [facility] 12-25-2024 10:17-0400 Heart rate 62 /min Jaime Beatty MD Work Phone: [facility] 12-25-2024 10:17-0400 Respiratory rate 16 /min Jaime Beatty MD Work Phone: [facility] 12-25-2024 10:17-0400 SaO2% (BldA) [Mass fraction] 98 % Jaime Beatty MD Work Phone: [facility] 12-25-2024 10:17-0400 Systolic blood pressure 145 mm[Hg] Jaime Beatty MD Work Phone: [facility] 11-29-2024 11:01-0400 Body mass index (BMI) [Ratio] 20.96 kg/m2 Vince Freitas APRN.[employer] Work Phone: [facility] 11-29-2024 11:01-0400 Body temperature 97.9 [degF] Vince Freitas APRN.[employer] Work Phone: [facility] 11-29-2024 11:01-0400 Body weight 51 kg Vince Freitas APRN.[employer] Work Phone: [facility] 11-29-2024 11:01-0400 Diastolic blood pressure 52 mm[Hg] Vince Freitas APRN.[employer] Work Phone: [facility] 11-29-2024 11:01-0400 Heart rate 70 /min Vince Fortino DRAGGER.[employer] Work Phone: [facility] 11-29-2024 11:01-0400 Respiratory rate 16 /min Vince Fortino DRAGGER.[employer] Work Phone: [facility] 11-29-2024 11:01-0400 SaO2% (BldA) [Mass fraction] 100 % Vince Fortino DRAGGER.[employer] Work Phone: [facility] 11-29-2024 11:01-0400 Systolic blood pressure 143 mm[Hg] Vince Fortino DRAGGER.[employer] Work Phone: [facility] 11-26-2024 22:29-0400 Body temperature 98.4 [degF] Dr. Hilton Pena MD Work Phone: [facility] 11-26-2024 22:29-0400 Diastolic blood pressure 53 mm[Hg] Dr. Hilton Pena MD Work Phone: [facility] 11-26-2024 22:29-0400 Heart rate 77 /min Dr. Hilton Pena MD Work Phone: [facility] 11-26-2024 22:29-0400 Respiratory rate 20 /min Dr. Hilton Pena MD Work Phone: [facility] 11-26-2024 22:29-0400 SaO2% (BldA) [Mass fraction] 96 % Dr. Hilton Pena MD Work Phone: [facility] 11-26-2024 22:29-0400 Systolic blood pressure 106 mm[Hg] Dr. Hilton Pena MD Work Phone: [facility] 11-26-2024 20:44-0400 Body height 157.[address] Hilton Pena MD Work Phone: [facility] 11-26-2024 20:44-0400 Body mass index (BMI) [Ratio] 20.3 kg/m2 Dr. Hilton Pena MD Work Phone: [facility] 11-26-2024 20:44-0400 Body weight 50.[address] Hilton Pena MD Work Phone: [facility] 11-01-2024 13:22-0400 Body temperature 97.81 [degF] Chair 4 Work Phone: [facility] 11-01-2024 13:22-0400 Diastolic blood pressure 51 mm[Hg] Chair 4 Work Phone: [facility] 11-01-2024 13:22-0400 Heart rate 68 /min Chair 4 Work Phone: [facility] 11-01-2024 13:22-0400 Respiratory rate 16 /min Chair 4 Work Phone: [facility] 11-01-2024 13:22-0400 SaO2% (BldA) [Mass fraction] 98 % Chair 4 Work Phone: [facility] 11-01-2024 13:22-0400 Systolic blood pressure 141 mm[Hg] Chair 4 Work Phone: [facility] 10-08-2024 13:07-0400 Body temperature 98.1 [degF] Chair 4 Work Phone: [facility] 10-08-2024 13:07-0400 Diastolic blood pressure 82 mm[Hg] Chair 4 Work Phone: [facility] 10-08-2024 13:07-0400 Heart rate 76 /min Chair 4 Work Phone: [facility] 10-08-2024 13:07-0400 Respiratory rate 18 /min Chair 4 Work Phone: [facility] 10-08-2024 13:07-0400 SaO2% (BldA) [Mass fraction] 97 % Chair 4 Work Phone: [facility] 10-08-2024 13:07-0400 Systolic blood pressure 150 mm[Hg] Chair 4 Work Phone: [facility] 09-11-2024 12:34-0500 Body mass index (BMI) [Ratio] 20.88 kg/m2 Ruthy Valle PA-C Work Phone: [facility] 09-11-2024 12:34-0500 Body temperature 98.6 [degF] Ruthy Valle PA-C Work Phone: [facility] 09-11-2024 12:34-0500 Body weight 50.8 kg Ruthy Valle PA-C Work Phone: [facility] 09-11-2024 12:34-0500 Diastolic blood pressure 70 mm[Hg] Ruthy Valle PA-C Work Phone: [facility] 09-11-2024 12:34-0500 Heart rate 62 /min Ruthy Valle PA-C Work Phone: [facility] 09-11-2024 12:34-0500 Respiratory rate 14 /min Ruthy Valle PA-C Work Phone: [facility] 09-11-2024 12:34-0500 SaO2% (BldA) [Mass fraction] 98 % Ruthy Valle PA-C Work Phone: [facility] 09-11-2024 12:34-0500 Systolic blood pressure 116 mm[Hg] Ruthy Valle PA-C Work Phone: [facility] 09-06-2024 13:02-0500 Body height 156 cm Vince Freitas APRN.[employer] Work Phone: [facility] 09-06-2024 13:02-0500 Body mass index (BMI) [Ratio] 21.12 kg/m2 Vince Freitas APRN.[employer] Work Phone: [facility] 09-06-2024 13:02-0500 Body temperature 97.2 [degF] Vince Freitas APRN.[employer] Work Phone: [facility] 09-06-2024 13:02-0500 Body weight 51.4 kg Vince Freitas APRN.[employer] Work Phone: [facility] 09-06-2024 13:02-0500 Diastolic blood pressure 64 mm[Hg] Vince Freitas APRN.[employer] Work Phone: [facility] 09-06-2024 13:02-0500 Heart rate 75 /min Vince Freitas APRN.[employer] Work Phone: [facility] 09-06-2024 13:02-0500 Respiratory rate 12 /min Vince Freitas APRN.[employer] Work Phone: [facility] 09-06-2024 13:02-0500 SaO2% (BldA) [Mass fraction] 98 % Vince Freitas APRN.[employer] Work Phone: [facility] 09-06-2024 13:02-0500 Systolic blood pressure 152 mm[Hg] Vince Freitas APRN.[employer] Work Phone: [facility] 08-09-2024 14:23-0500 Body temperature 98.91 [degF] Chair 4 Work Phone: [facility] 08-09-2024 14:23-0500 Diastolic blood pressure 69 mm[Hg] Chair 4 Work Phone: [facility] 08-09-2024 14:23-0500 Heart rate 64 /min Chair 4 Work Phone: [facility] 08-09-2024 14:23-0500 Respiratory rate 18 /min Chair 4 Work Phone: [facility] 08-09-2024 14:23-0500 SaO2% (BldA) [Mass fraction] 98 % Chair 4 Work Phone: [facility] 08-09-2024 14:23-0500 Systolic blood pressure 126 mm[Hg] Chair 4 Work Phone: [facility] 07-23-2024 12:50-0500 Body mass index (BMI) [Ratio] 21.56 kg/m2 Andrew Stanton APRN.[employer] Work Phone: [facility] 07-23-2024 12:50-0500 Body weight 50.8 kg Andrew Stanton DRAGGER.[employer] Work Phone: [facility] 07-23-2024 12:50-0500 Diastolic blood pressure 68 mm[Hg] Andrew Stanton DRAGGER.[employer] Work Phone: [facility] 07-23-2024 12:50-0500 Heart rate 71 /min Andrew Stanton DRAGGER.[employer] Work Phone: [facility] 07-23-2024 12:50-0500 SaO2% (BldA) [Mass fraction] 96 % Andrew Stanton DRAGGER.[employer] Work Phone: [facility] 07-23-2024 12:50-0500 Systolic blood pressure 145 mm[Hg] Andrew Stanton DRAGGER.[employer] Work Phone: [facility] 07-12-2024 12:41-0500 Body mass index (BMI) [Ratio] 21.09 kg/m2 Alvin Balderas DRAGGER.[employer] Work Phone: [facility] 07-12-2024 12:41-0500 Body temperature 97.59 [degF] Saveta Andrey DRAGGER.[employer] Work Phone: [facility] 07-12-2024 12:41-0500 Body weight 49.7 kg Saveta Andrey DRAGGER.[employer] Work Phone: [facility] 07-12-2024 12:41-0500 Diastolic blood pressure 62 mm[Hg] Saveta Andrey DRAGGER.[employer] Work Phone: [facility] 07-12-2024 12:41-0500 Heart rate 67 /min Saveta Andrey DRAGGER.[employer] Work Phone: [facility] 07-12-2024 12:41-0500 Respiratory rate 16 /min Saveta Andrey DRAGGER.[employer] Work Phone: [facility] 07-12-2024 12:41-0500 SaO2% (BldA) [Mass fraction] 99 % Saveta Andrey DRAGGER.[employer] Work Phone: [facility] 07-12-2024 12:41-0500 Systolic blood pressure 126 mm[Hg] Alvin Balderas APRN.[employer] Work Phone: [facility] 06-14-2024 12:35-0500 Body temperature 98.4 [degF] Chair 4 Work Phone: [facility] 06-14-2024 12:35-0500 Diastolic blood pressure 54 mm[Hg] Chair 4 Work Phone: [facility] 06-14-2024 12:35-0500 Heart rate 66 /min Chair 4 Work Phone: [facility] 06-14-2024 12:35-0500 Respiratory rate 18 /min Chair 4 Work Phone: [facility] 06-14-2024 12:35-0500 SaO2% (BldA) [Mass fraction] 100 % Chair 4 Work Phone: [facility] 06-14-2024 12:35-0500 Systolic blood pressure 147 mm[Hg] Chair 4 Work Phone: [facility] 05-17-2024 10:40-0400 Body temperature 98.71 [degF] Chair 4 Work Phone: [facility] 05-17-2024 10:40-0400 Diastolic blood pressure 55 mm[Hg] Chair 4 Work Phone: [facility] 05-17-2024 10:40-0400 Heart rate 65 /min Chair 4 Work Phone: [facility] 05-17-2024 10:40-0400 Respiratory rate 16 /min Chair 4 Work Phone: [facility] 05-17-2024 10:40-0400 SaO2% (BldA) [Mass fraction] 98 % Chair 4 Work Phone: [facility] 05-17-2024 10:40-0400 Systolic blood pressure 149 mm[Hg] Chair 4 Work Phone: [facility] 04-19-2024 13:20-0400 Body mass index (BMI) [Ratio] 21.43 kg/m2 Saveta Andrey DRAGGER.[employer] Work Phone: [facility] 04-19-2024 13:20-0400 Body temperature 97.2 [degF] Saveta Andrey DRAGGER.[employer] Work Phone: [facility] 04-19-2024 13:20-0400 Body weight 50.5 kg Saveta Andrey DRAGGER.[employer] Work Phone: [facility] 04-19-2024 13:20-0400 Diastolic blood pressure 54 mm[Hg] Saveta Andrey DRAGGER.[employer] Work Phone: [facility] 04-19-2024 13:20-0400 Heart rate 59 /min Saveta Andrey DRAGGER.[employer] Work Phone: [facility] 04-19-2024 13:20-0400 Respiratory rate 17 /min Saveta Andrey DRAGGER.[employer] Work Phone: [facility] 04-19-2024 13:20-0400 SaO2% (BldA) [Mass fraction] 99 % Saveta Andrey DRAGGER.[employer] Work Phone: [facility] 04-19-2024 13:20-0400 Systolic blood pressure 152 mm[Hg] Saveta Andrey DRAGGER.[employer] Work Phone: [facility] 03-22-2024 12:55-0400 Body mass index (BMI) [Ratio] 22.03 kg/m2 Saveta Andrey DRAGGER.[employer] Work Phone: [facility] 03-22-2024 12:55-0400 Body temperature 98.6 [degF] Saveta Andrey DRAGGER.[employer] Work Phone: [facility] 03-22-2024 12:55-0400 Body weight 51.9 kg Saveta Andrey DRAGGER.[employer] Work Phone: [facility] 03-22-2024 12:55-0400 Diastolic blood pressure 49 mm[Hg] Saveta Andrey DRAGGER.[employer] Work Phone: [facility] 03-22-2024 12:55-0400 Heart rate 57 /min Saveta Andrey DRAGGER.[employer] Work Phone: [facility] 03-22-2024 12:55-0400 Respiratory rate 20 /min Saveta Andrey DRAGGER.[employer] Work Phone: [facility] 03-22-2024 12:55-0400 SaO2% (BldA) [Mass fraction] 98 % Saveta Andrey DRAGGER.[employer] Work Phone: [facility] 03-22-2024 12:55-0400 Systolic blood pressure 132 mm[Hg] Saveta Andrey DRAGGER.[employer] Work Phone: [facility] 03-06-2024 13:09-0400 Body height 153.5 cm Ruthy Valle PA-C Work Phone: [facility] 03-06-2024 13:09-0400 Body mass index (BMI) [Ratio] 21.81 kg/m2 Ruthy Valle PA-C Work Phone: [facility] 03-06-2024 13:09-0400 Body temperature 98.49 [degF] Ruthy Valle PA-C Work Phone: [facility] 03-06-2024 13:09-0400 Body weight 51.4 kg Ruthy Valle PA-C Work Phone: [facility] 03-06-2024 13:09-0400 Diastolic blood pressure 60 mm[Hg] Ruthy Valle PA-C Work Phone: [facility] 03-06-2024 13:09-0400 Heart rate 67 /min Ruthy Valle PA-C Work Phone: [facility] 03-06-2024 13:09-0400 Respiratory rate 16 /min Ruthy Valle PA-C Work Phone: [facility] [facility] 03-[facility]24 13:09-0400 SaO2% (BldA) [Mass fraction] 97 % Ruthy Valle PA-C Work Phone: [facility] 03-06-2024 13:09-0400 Systolic blood pressure 128 mm[Hg] Ruthy Valle PA-C Work Phone: [facility] 02-21-2024 13:40-0400 Body mass index (BMI) [Ratio] 21.71 kg/m2 Jaime Beatty MD Work Phone: [facility] 02-21-2024 13:40-0400 Body temperature 97.39 [degF] Jaime Beatty MD Work Phone: [facility] 02-21-2024 13:40-0400 Body weight 52.1 kg Jaime Beatty MD Work Phone: [facility] 02-21-2024 13:40-0400 Diastolic blood pressure 60 mm[Hg] Jaime Beatty MD Work Phone: [facility] Comment on above: provider informed 02-21-2024 13:40-0400 Heart rate 62 /min Jaime Beatty MD Work Phone: [facility] 02-21-2024 13:40-0400 Respiratory rate 18 /min Jaime Beatty MD Work Phone: [facility] 02-21-2024 13:40-0400 SaO2% (BldA) [Mass fraction] 100 % Jaime Beatty MD Work Phone: [facility] Comment on above: room air 02-21-2024 13:40-0400 Systolic blood pressure 145 mm[Hg] Jaime Beatty MD Work Phone: [facility] Comment on above: provider informed 02-21-2024 12:24-0400 Body temperature 97.9 [degF] Chair 2 Work Phone: [facility] 02-21-2024 12:24-0400 Diastolic blood pressure 57 mm[Hg] Chair 2 Work Phone: [facility] 02-21-2024 12:24-0400 Heart rate 74 /min Chair 2 Work Phone: [facility] 02-21-2024 12:24-0400 Respiratory rate 18 /min Chair 2 Work Phone: [facility] 02-21-2024 12:24-0400 Systolic blood pressure 131 mm[Hg] Chair 2 Work Phone: [facility] 01-26-2024 12:35-0400 Body mass index (BMI) [Ratio] 21.55 kg/m2 Saveta Andrey DRAGGER.[employer] Work Phone: [facility] 01-26-2024 12:35-0400 Body temperature 97.39 [degF] Saveta Andrey DRAGGER.[employer] Work Phone: [facility] 01-26-2024 12:35-0400 Body weight 51.7 kg Saveta Andrey DRAGGER.[employer] Work Phone: [facility] 01-26-2024 12:35-0400 Diastolic blood pressure 56 mm[Hg] Saveta Andrey DRAGGER.[employer] Work Phone: [facility] 01-26-2024 12:35-0400 Heart rate 65 /min Saveta Andrey DRAGGER.[employer] Work Phone: [facility] 01-26-2024 12:35-0400 Respiratory rate 16 /min Saveta Andrey DRAGGER.[employer] Work Phone: [facility] 01-26-2024 12:35-0400 SaO2% (BldA) [Mass fraction] 100 % Saveta Andrey DRAGGER.[employer] Work Phone: [facility] Comment on above: RA 01-26-2024 12:35-0400 Systolic blood pressure 150 mm[Hg] Saveta Andrey DRAGGER.[employer] Work Phone: [facility] 12-29-2023 13:58-0400 Body temperature 98.1 [degF] Chair 4 Work Phone: [facility] 12-29-2023 13:58-0400 Diastolic blood pressure 61 mm[Hg] Chair 4 Work Phone: [facility] 12-29-2023 13:58-0400 Heart rate 68 /min Chair 4 Work Phone: [facility] 12-29-2023 13:58-0400 Respiratory rate 18 /min Chair 4 Work Phone: [facility] 12-29-2023 13:58-0400 SaO2% (BldA) [Mass fraction] 98 % Chair 4 Work Phone: [facility] 12-29-2023 13:58-0400 Systolic blood pressure 148 mm[Hg] Chair 4 Work Phone: [facility] 12-29-2023 12:49-0400 Body mass index (BMI) [Ratio] 21.55 kg/m2 Saveta Andrey DRAGGER.[employer] Work Phone: [facility] 12-29-2023 12:49-0400 Body temperature 98.71 [degF] Saveta Andrey DRAGGER.[employer] Work Phone: [facility] 12-29-2023 12:49-0400 Body weight 51.7 kg Saveta Andrey DRAGGER.[employer] Work Phone: [facility] 12-29-2023 12:49-0400 Diastolic blood pressure 51 mm[Hg] Saveta Andrey DRAGGER.[employer] Work Phone: [facility] 12-29-2023 12:49-0400 Heart rate 63 /min Saveta Andrey DRAGGER.[employer] Work Phone: [facility] 12-29-2023 12:49-0400 Respiratory rate 20 /min Saveta Andrey DRAGGER.[employer] Work Phone: [facility] 12-29-2023 12:49-0400 SaO2% (BldA) [Mass fraction] 99 % Saveta Andrey DRAGGER.[employer] Work Phone: [facility] 12-29-2023 12:49-0400 Systolic blood pressure 131 mm[Hg] Saveta Andrey DRAGGER.[employer] Work Phone: [facility] 12-01-2023 12:39-0400 Body temperature 98.01 [degF] Chair 4 Work Phone: [facility] 12-01-2023 12:39-0400 Diastolic blood pressure 52 mm[Hg] Chair 4 Work Phone: [facility] 12-01-2023 12:39-0400 Heart rate 71 /min Chair 4 Work Phone: [facility] 12-01-2023 12:39-0400 Respiratory rate 18 /min Chair 4 Work Phone: [facility] 12-01-2023 12:39-0400 SaO2% (BldA) [Mass fraction] 98 % Chair 4 Work Phone: [facility] 12-01-2023 12:39-0400 Systolic blood pressure 131 mm[Hg] Chair 4 Work Phone: [facility] 11-03-2023 13:04-0400 Body temperature 97.5 [degF] Saveta Andrey DRAGGER.[employer] Work Phone: [facility] 11-03-2023 13:04-0400 Body weight 51.4 kg Saveta Andrey DRAGGER.[employer] Work Phone: [facility] 11-03-2023 13:04-0400 Diastolic blood pressure 78 mm[Hg] Saveta Andrey DRAGGER.[employer] Work Phone: [facility] 11-03-2023 13:04-0400 Heart rate 68 /min Saveta Andrey DRAGGER.[employer] Work Phone: [facility] 11-03-2023 13:04-0400 Respiratory rate 18 /min Saveta Andery DRAGGER.[employer] Work Phone: [facility] 11-03-2023 13:04-0400 SaO2% (BldA) [Mass fraction] 100 % Saveta Andrey DRAGGER.[employer] Work Phone: [facility] 11-03-2023 13:04-0400 Systolic blood pressure 146 mm[Hg] Saveta Andrey DRAGGER.[employer] Work Phone: [facility] 10-09-2023 12:37-0400 Body temperature 98.2 [degF] [facility] 10-09-2023 12:37-0400 Diastolic blood pressure 56 mm[Hg] [facility] 10-09-2023 12:37-0400 Heart rate 75 /min [facility] 10-09-2023 12:37-0400 Respiratory rate 18 /min [facility] 10-09-2023 12:37-0400 SaO2% (BldA) [Mass fraction] 97 % [facility] 10-09-2023 12:37-0400 Systolic blood pressure 107 mm[Hg] [facility] 10-09-2023 09:56-0400 Body height 158.75 cm [facility] 10-09-2023 09:56-0400 Body mass index (BMI) [Ratio] 20.4 kg/m2 [facility] 10-09-2023 09:56-0400 Body weight 51.43 kg [facility] 10-06-2023 13:38-0400 Body temperature 97.5 [degF] Saveta Andrey DRAGGER.[employer] Work Phone: [facility] 10-06-2023 13:38-0400 Body weight 52.3 kg Saveta Andrey DRAGGER.[employer] Work Phone: [facility] 10-06-2023 13:38-0400 Diastolic blood pressure 61 mm[Hg] Saveta Andrey DRAGGER.[employer] Work Phone: [facility] 10-06-2023 13:38-0400 Heart rate 66 /min Saveta Andrey DRAGGER.[employer] Work Phone: [facility] 10-06-2023 13:38-0400 Respiratory rate 18 /min Saveta Andrey DRAGGER.[employer] Work Phone: [facility] 10-06-2023 13:38-0400 Systolic blood pressure 139 mm[Hg] Saveta Andrey DRAGGER.[employer] Work Phone: [facility] 09-19-2023 11:32-0500 Body temperature 99 [degF] Ruthy Valle PA-C Work Phone: [facility] 09-19-2023 11:32-0500 Body weight 50.8 kg Ruthy Valle PA-C Work Phone: [facility] 09-19-2023 11:32-0500 Diastolic blood pressure 60 mm[Hg] Ruthy Valle PA-C Work Phone: [facility] 09-19-2023 11:32-0500 Heart rate 76 /min Ruthy Valle PA-C Work Phone: [facility] 09-19-2023 11:32-0500 Respiratory rate 16 /min Ruthy Valle PA-C Work Phone: [facility] 09-19-2023 11:32-0500 Systolic blood pressure 110 mm[Hg] Ruthy Valle PA-C Work Phone: [facility] 09-07-2023 13:00-0500 Body temperature 97.9 [degF] Saveta Andrey DRAGGER.[employer] Work Phone: [facility] 09-07-2023 13:00-0500 Body weight 51.9 kg Saveta Andrey DRAGGER.[employer] Work Phone: [facility] 09-07-2023 13:00-0500 Diastolic blood pressure 58 mm[Hg] Saveta Andrey DRAGGER.[employer] Work Phone: [facility] 09-07-2023 13:00-0500 Heart rate 74 /min Saveta Andrey DRAGGER.[employer] Work Phone: [facility] 09-07-2023 13:00-0500 Respiratory rate 18 /min Saveta Andrey DRAGGER.[employer] Work Phone: [facility] 09-07-2023 13:00-0500 Systolic blood pressure 137 mm[Hg] Saveta Andrey DRAGGER.[employer] Work Phone: [facility] 08-16-2023 21:49-0500 Diastolic blood pressure 67 mm[Hg] [facility] 08-16-2023 21:49-0500 Heart rate 75 /min [facility] 08-16-2023 21:49-0500 Respiratory rate 16 /min [facility] 08-16-2023 21:49-0500 SaO2% (BldA) [Mass fraction] 97 % [facility] 08-16-2023 21:49-0500 Systolic blood pressure 150 mm[Hg] [facility] 08-16-2023 19:12-0500 Body height 157.48 cm [facility] 08-16-2023 19:12-0500 Body mass index (BMI) [Ratio] 21.6 kg/m2 [facility] 08-16-2023 19:12-0500 Body temperature 98.6 [degF] [facility] 08-16-2023 19:12-0500 Body weight 53.55 kg [facility] 06-16-2023 13:34-0500 Body temperature 99.39 [degF] [address] 06-16-2023 13:34-0500 Diastolic blood pressure 61 mm[Hg] [address] 06-16-2023 13:34-0500 Heart rate 74 /min [facility] 4 [facility] 06-16-2023 13:34-0500 Respiratory rate 18 /min [address] 06-16-2023 13:34-0500 Systolic blood pressure 135 mm[Hg] [address] 05-19-2023 13:18-0400 Body temperature 98.71 [degF] Chair [facility] Work Phone: [facility] 05-19-2023 13:18-0400 Diastolic blood pressure 60 mm[Hg] Chair [facility] Work Phone: [facility] 05-19-2023 13:18-0400 Heart rate 72 /min Chair East Work Phone: [facility] 05-19-2023 13:18-0400 Respiratory rate 18 /min Chair East Work Phone: [facility] 05-19-2023 13:18-0400 SaO2% (BldA) [Mass fraction] 98 % Chair [facility] Work Phone: [facility] 05-19-2023 13:18-0400 Systolic blood pressure 143 mm[Hg] Chair East Work Phone: [facility] 05-05-2023 13:30-0400 Body height 154.9 cm Vince Freitas APRN.[employer] Work Phone: [facility] 05-05-2023 13:30-0400 Body temperature 98.01 [degF] Vince Freitas APRN.[employer] Work Phone: [facility] 05-05-2023 13:30-0400 Body weight 51.71 kg Vince Freitas APRN.[employer] Work Phone: [facility] 05-05-2023 13:30-0400 Diastolic blood pressure 60 mm[Hg] Vince Freitas APRN.[employer] Work Phone: [facility] 05-05-2023 13:30-0400 Heart rate 77 /min Vince Freitas APRN.[employer] Work Phone: [facility] 05-05-2023 13:30-0400 Respiratory rate 18 /min Vince Freitas APRN.[employer] Work Phone: [facility] 05-05-2023 13:30-0400 SaO2% (BldA) [Mass fraction] 98 % Vince Freitas APRN.[employer] Work Phone: [facility] 05-05-2023 13:30-0400 Systolic blood pressure 147 mm[Hg] Vince Freitas APRN.[employer] Work Phone: [facility] 04-21-2023 14:12-0400 Body temperature 98.01 [degF] Chair West Work Phone: [facility] 04-21-2023 14:12-0400 Diastolic blood pressure 59 mm[Hg] Chair West Work Phone: [facility] 04-21-2023 14:12-0400 Heart rate 83 /min Chair West Work Phone: [facility] 04-21-2023 14:12-0400 Respiratory rate 18 /min Chair West Work Phone: [facility] 04-21-2023 14:12-0400 Systolic blood pressure 141 mm[Hg] [facility] Work Phone: [facility] 04-07-2023 14:55-0400 Body temperature 97.9 [degF] [facility] 04-07-2023 14:55-0400 Diastolic blood pressure 62 mm[Hg] [facility] 04-07-2023 14:55-0400 Heart rate 91 /min [facility] 04-07-2023 14:55-0400 Respiratory rate 16 /min [facility] 04-07-2023 14:55-0400 Systolic blood pressure 142 mm[Hg] [facility] 03-31-2023 16:17-0400 Body temperature 97.39 [degF] Jaime Beatty MD Work Phone: [facility] 03-31-2023 16:17-0400 Body weight 51.57 kg Jaime Beatty MD Work Phone: [facility] 03-31-2023 16:17-0400 Diastolic blood pressure 66 mm[Hg] Jaime Beatty MD Work Phone: [facility] 03-31-2023 16:17-0400 Heart rate 81 /min Jaime Beatty MD Work Phone: [facility] 03-31-2023 16:17-0400 Respiratory rate 18 /min Jaime Beatty MD Work Phone: [facility] 03-31-2023 16:17-0400 SaO2% (BldA) [Mass fraction] 98 % Jaime Beatty MD Work Phone: [facility] 03-31-2023 16:17-0400 Systolic blood pressure 138 mm[Hg] Jaime Beatty MD Work Phone: [facility] 03-30-2023 13:47-0400 Body temperature 99 [degF] [facility] Work Phone: [facility] 03-30-2023 13:47-0400 Diastolic blood pressure 57 mm[Hg] [facility] Work Phone: [facility] 03-30-2023 13:47-0400 Heart rate 90 /min [facility] Work Phone: [facility] 03-30-2023 13:47-0400 Respiratory rate 16 /min [facility] Work Phone: [facility] 03-30-2023 13:47-0400 SaO2% (BldA) [Mass fraction] 97 % [facility] Work Phone: [facility] 03-30-2023 13:47-0400 Systolic blood pressure 125 mm[Hg] [facility] Work Phone: [facility] 03-21-2023 12:46-0400 Body height 154.9 cm Hilton Pena MD Work Phone: [facility] 03-21-2023 12:46-0400 Body weight 51.71 kg Hilton Pena MD Work Phone: [facility] 03-21-2023 12:46-0400 Diastolic blood pressure 60 mm[Hg] Hilton Pena MD Work Phone: [facility] 03-21-2023 12:46-0400 Heart rate 84 /min Hilton Pena MD Work Phone: [facility] 03-21-2023 12:46-0400 Respiratory rate 18 /min Hilton Pena MD Work Phone: [facility] 03-21-2023 12:46-0400 Systolic blood pressure 118 mm[Hg] Hilton Pena MD Work Phone: [facility] 03-17-2023 14:21-0400 Body temperature 99.7 [degF] [facility] 03-17-2023 14:21-0400 Diastolic blood pressure 55 mm[Hg] [facility] 03-17-2023 14:21-0400 Heart rate 92 /min [facility] 03-17-2023 14:21-0400 Respiratory rate 16 /min [facility] 03-17-2023 14:21-0400 Systolic blood pressure 130 mm[Hg] [facility] 03-09-2023 14:15-0400 Body temperature 98.1 [degF] Chair East Work Phone: [facility] 03-09-2023 14:15-0400 Diastolic blood pressure 58 mm[Hg] Chair East Work Phone: [facility] 03-09-2023 14:15-0400 Heart rate 81 /min Chair East Work Phone: [facility] 03-09-2023 14:15-0400 Respiratory rate 18 /min Chair East Work Phone: [facility] 03-09-2023 14:15-0400 Systolic blood pressure 131 mm[Hg] Chair East Work Phone: [facility] 03-08-2023 12:20-0400 Body temperature 98.71 [degF] Daniel Cameron MD Work Phone: [facility] 03-08-2023 12:20-0400 Body weight 51.62 kg Daniel Cameron MD Work Phone: [facility] 03-08-2023 12:20-0400 Diastolic blood pressure 55 mm[Hg] Daniel Cameron MD Work Phone: [facility] 03-08-2023 12:20-0400 Heart rate 86 /min Daniel Cameron MD Work Phone: [facility] 03-08-2023 12:20-0400 Respiratory rate 16 /min Daniel Cameron MD Work Phone: [facility] 03-08-2023 12:20-0400 SaO2% (BldA) [Mass fraction] 96 % Daniel Cameron MD Work Phone: [facility] 03-08-2023 12:20-0400 Systolic blood pressure 123 mm[Hg] Daniel Cameron MD Work Phone: [facility] 03-03-2023 15:22-0400 Body temperature 98.49 [degF] Chair East Work Phone: [facility] 03-03-2023 15:22-0400 Diastolic blood pressure 68 mm[Hg] Chair East Work Phone: [facility] 03-03-2023 15:22-0400 Heart rate 79 /min Chair East Work Phone: [facility] 03-03-2023 15:22-0400 Respiratory rate 18 /min Chair East Work Phone: [facility] 03-03-2023 15:22-0400 Systolic blood pressure 149 mm[Hg] Chair East Work Phone: [facility] 02-23-2023 08:48-0400 Body temperature 98.71 [degF] Nurse Main Work Phone: [facility] 02-23-2023 08:48-0400 Body weight 51.85 kg Nurse Main Work Phone: [facility] 02-23-2023 08:48-0400 Diastolic blood pressure 62 mm[Hg] Nurse Main Work Phone: [facility] 02-23-2023 08:48-0400 Heart rate 74 /min Nurse Main Work Phone: [facility] 02-23-2023 08:48-0400 Respiratory rate 16 /min Nurse Main Work Phone: [facility] 02-23-2023 08:48-0400 SaO2% (BldA) [Mass fraction] 97 % Nurse Main Work Phone: [facility] 02-23-2023 08:48-0400 Systolic blood pressure 149 mm[Hg] Nurse Main Work Phone: [facility] 02-15-2023 11:00-0400 Body weight 51.03 kg Daniel Cameron MD Work Phone: [facility] 02-15-2023 11:00-0400 Diastolic blood pressure 68 mm[Hg] Daniel Cameron MD Work Phone: [facility] 02-15-2023 11:00-0400 Heart rate 80 /min Daniel Cameron MD Work Phone: [facility] 02-15-2023 11:00-0400 Respiratory rate 18 /min Daniel Cameron MD Work Phone: [facility] 02-15-2023 11:00-0400 SaO2% (BldA) [Mass fraction] 95 % Daniel Cameron MD Work Phone: [facility] 02-15-2023 11:00-0400 Systolic blood pressure 145 mm[Hg] Daniel Cameron MD Work Phone: [facility] 12-27-2022 10:44-0400 Body weight 50.8 kg Andrew Stanton DRAGGER.[employer] Work Phone: [facility] 12-27-2022 10:44-0400 Diastolic blood pressure 84 mm[Hg] Andrew Stanton DRAGGER.[employer] Work Phone: [facility] 12-27-2022 10:44-0400 Heart rate 76 /min Andrew Stanton DRAGGER.[employer] Work Phone: [facility] 12-27-2022 10:44-0400 SaO2% (BldA) [Mass fraction] 95 % Andrew Stanton DRAGGER.[employer] Work Phone: [facility] 12-27-2022 10:44-0400 Systolic blood pressure 136 mm[Hg] Andrew Stanton DRAGGER.[employer] Work Phone: [facility] 12-26-2022 13:18-0400 Body temperature 98.49 [degF] Nico Holloway DRAGGER.[employer] Work Phone: [facility] 12-26-2022 13:18-0400 Body weight 51.8 kg Nico Holloway DRAGGER.[employer] Work Phone: [facility] 12-26-2022 13:18-0400 Diastolic blood pressure 86 mm[Hg] Nico Holloway DRAGGER.[employer] Work Phone: [facility] 12-26-2022 13:18-0400 Heart rate 74 /min Nico Holloway DRAGGER.[employer] Work Phone: [facility] 12-26-2022 13:18-0400 Respiratory rate 18 /min Nico Holloway DRAGGER.[employer] Work Phone: [facility] 12-26-2022 13:18-0400 SaO2% (BldA) [Mass fraction] 94 % Nico Holloway DRAGGER.[employer] Work Phone: [facility] 12-26-2022 13:18-0400 Systolic blood pressure 146 mm[Hg] Nico Holloway DRAGGER.[employer] Work Phone: [facility] 09-07-2022 13:01-0500 Body weight 51.71 kg Hilton Pena MD Work Phone: [facility] 09-07-2022 13:01-0500 Diastolic blood pressure 74 mm[Hg] Hilton Pena MD Work Phone: [facility] 09-07-2022 13:01-0500 Heart rate 76 /min Hilton Pena MD Work Phone: [facility] 09-07-2022 13:01-0500 Respiratory rate 16 /min Hilton Pena MD Work Phone: [facility] 09-07-2022 13:01-0500 Systolic blood pressure 124 mm[Hg] Hilton Pena MD Work Phone: [facility] 03-24-2022 09:13-0400 Body temperature 98.4 [degF] Hilton Monsalve DRAGGER.[employer] Work Phone: [facility] 03-24-2022 09:13-0400 Body weight 50.89 kg Hilton Monsalve DRAGGER.[employer] Work Phone: [facility] 03-24-2022 09:13-0400 Diastolic blood pressure 80 mm[Hg] Hilton Monsalve DRAGGER.[employer] Work Phone: [facility] 03-24-2022 09:13-0400 Heart rate 74 /min Hilton Monsalve DRAGGER.[employer] Work Phone: [facility] 03-24-2022 09:13-0400 Respiratory rate 18 /min Hilton Monsalve DRAGGER.[employer] Work Phone: [facility] 03-24-2022 09:13-0400 SaO2% (BldA) [Mass fraction] 97 % [facility].[employer] Work Phone: [facility] 03-24-2022 09:13-0400 Systolic blood pressure 138 mm[Hg] [facility].[employer] Work Phone: [facility] 03-17-2022 08:41-0400 Body temperature 101.19 [degF] [facility].[employer] Work Phone: [facility] 03-17-2022 08:41-0400 Body weight 51.62 kg [facility].[employer] Work Phone: [facility] 03-17-2022 08:41-0400 Diastolic blood pressure 74 mm[Hg] [facility].[employer] Work Phone: [facility] 03-17-2022 08:41-0400 Heart rate 102 /min [facility].[employer] Work Phone: [facility] 03-17-2022 08:41-0400 Respiratory rate 18 /min [facility].[employer] Work Phone: [facility] 03-17-2022 08:41-0400 SaO2% (BldA) [Mass fraction] 96 % [facility].[employer] Work Phone: [facility] 03-17-2022 08:41-0400 Systolic blood pressure 132 mm[Hg] [facility].[employer] Work Phone: [facility] 02-25-2022 14:25-0400 Body height 154.3 cm Hilton Pena MD Work Phone: [facility] 02-25-2022 14:25-0400 Body weight 50.8 kg Hilton Pena MD Work Phone: [facility] 02-25-2022 14:25-0400 Diastolic blood pressure 70 mm[Hg] Hilton Pena MD Work Phone: [facility] 02-25-2022 14:25-0400 Heart rate 72 /min Hilton Pena MD Work Phone: [facility] 02-25-2022 14:25-0400 Systolic blood pressure 130 mm[Hg] Hilton Pena MD Work Phone: [facility] 10-25-2021 09:05-0400 Body temperature 97.9 [degF] Jenn Simmons MD Work Phone: [facility] 10-25-2021 09:05-0400 Diastolic blood pressure 74 mm[Hg] Jenn Simmons MD Work Phone: [facility] 10-25-2021 09:05-0400 Heart rate 86 /min Jenn Simmons MD Work Phone: [facility] 10-25-2021 09:05-0400 Respiratory rate 16 /min Jenn Simmons MD Work Phone: [facility] 10-25-2021 09:05-0400 SaO2% (BldA) [Mass fraction] 97 % Jenn Simmons MD Work Phone: [facility] 10-25-2021 09:05-0400 Systolic blood pressure 152 mm[Hg] Jenn Simmons MD Work Phone: [facility] 10-25-2021 07:09-0400 Body height 157.5 cm Jenn Simmons MD Work Phone: [facility] 10-25-2021 07:09-0400 Body mass index (BMI) [Ratio] 20.49 kg/m2 Jenn Simmons MD Work Phone: [facility] 10-25-2021 07:09-0400 Body weight 50.8 kg Jenn Simmons MD Work Phone: [facility] Encounters Encounter Date Encounter Type Care Provider Facility Start: 05-15-2025 End: 05-15-2025 ambulatory HILTON PENA Facility:[facility] Start: 05-15-2025 End: 05-15-2025 ambulatory HILTON PENA Facility:[facility] Start: 05-12-2025 End: 05-12-2025 ambulatory HILTON PENA Facility:[facility] Start: 05-02-2025 End: 05-02-2025 ambulatory JEFFERSON [facility] Facility:[facility] Start: 04-18-2025 End: 04-19-2025 ambulatory [facility] Facility:[facility] Start: 04-14-2025 End: 04-14-2025 ambulatory [facility] Facility:[facility] Start: 03-31-2025 End: 03-31-2025 Specialty Pharmacy Darell Chu [facility] Comment on above: SPP Oral Oncology/he matology - Medication Refill (Revlimid (BRAND)) Start: 03-21-2025 End: 03-21-2025 Patient encounter procedure Alvin Balderas APRN.CNP Work Phone: Hematology/Oncology Start: 03-21-2025 End: 03-22-2025 ambulatory Chair [address] [place] [address] Hematology/Oncology Comment on above: Multiple myeloma, re mission status unspecified (HCC) (Primary Dx); Multiple myeloma in remission (HCC) Multiple myeloma, re mission status unspecified (HCC) (Primary Dx) Start: 03-21-2025 End: 03-21-2025 ambulatory HILTON Roc GLORIA Facility:[facility] Start: 03-17-2025 End: 03-17-2025 [facility] Facility:[facility] Start: 03-13-2025 End: 03-13-2025 Patient encounter procedure Mele Mejia MD Work Phone: Orthopaedics Comment on above: Gandhi's cyst of knee , right; Immunocompromised (HCC); Multiple myeloma in remission (HCC) Start: 03-13-2025 End: 03-13-2025 ambulatory VINCE FREITAS Facility:[facility] Start: 03-11-2025 End: 03-11-2025 Patient encounter procedure Ruthy Valle PA-C Work Phone: [facility] [place] Comment on above: Medicare annual well ness visit, subsequent (Primary Dx); Advance directive discussed with patient; Screening for depression; Encounter for screening examination for other mental health and behavioral disorders; 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 rich plaque; Mixed hyperglyceridemia; Hypothyroidism, acquired; Elevated fasting blood sugar; GERD without esophagitis; Elevated blood pressure reading without diagnosis of hypertension; Multiple myeloma, remission status unspecified (HCC); Multiple myeloma not having achieved remission (HCC); Synovial cyst of right knee Start: 03-11-2025 End: 03-11-2025 ambulatory [facility] Facility:[facility] Start: 03-03-2025 End: 03-03-2025 Specialty Pharmacy Darell Chu [facility] Comment on above: SPP Oral Oncology/he matology - Medication Refill (Revlimid (BRAND)) Start: 02-28-2025 End: 03-02-2025 Refill Jaime Beatty MD Work Phone: Hematology/Oncology Comment on above: Refill Request Start: 02-21-2025 End: 02-22-2025 ambulatory Chair [address] [id number] Hematology/Oncology Comment on above: Multiple myeloma, re mission status unspecified (HCC) (Primary Dx) Start: 02-21-2025 End: 02-21-2025 [facility] Facility:[facility] Start: 02-17-2025 End: 02-17-2025 [facility] Facility:[facility] Start: 02-03-2025 End: 02-03-2025 Specialty Pharmacy Ramya Smith [facility] Comment on above: SPP Oral Oncology/he matology - Medication Refill (Revlimid) Start: 01-30-2025 End: 01-31-2025 Refill Katey Croft RN Work Phone: Hematology/Oncology Comment on above: Refill Request Start: 01-27-2025 End: 01-27-2025 Refill Katey Croft RN Work Phone: Hematology/Oncology Comment on above: Refill Request Right leg swelling [ M79.89] Start: 01-23-2025 End: 01-25-2025 ambulatory Chair 5 [facility] 4 Work Phone: Hematology/Oncology Comment on above: Multiple myeloma, re mission status unspecified (HCC) (Primary Dx); Multiple myeloma in remission (HCC); Multiple myeloma not having achieved remission (HCC) Multiple myeloma in remission (HCC) (Primary Dx); Pain of right hip; Right leg swelling Start: 01-23-2025 End: 01-23-2025 Patient encounter procedure Vince Freitas APRN.CNP Work Phone: Hematology/Oncology Start: 01-23-2025 End: 01-23-2025 ambulatory HILTON PENA Facility:[facility] Start: 01-20-2025 End: 01-20-2025 ambulatory VINCE FREITAS Facility:[facility] Start: 01-06-2025 End: 01-06-2025 Specialty Pharmacy Ramya Smith [facility] Comment on above: SPP Oral Oncology/he matology - Medication Refill (Revlimid) Start: 01-02-2025 End: 01-03-2025 Refill Vince Freitas APRN.[employer] Work Phone: Hematology/Oncology Comment on above: Refill Request Start: 12-25-2024 End: 12-25-2024 ambulatory Chair [address] [place] [address] Hematology/Oncology Comment on above: Multiple myeloma, re mission status unspecified (HCC) (Primary Dx) Start: 12-25-2024 End: 12-25-2024 Subsequent hospital visit by physician Isaiah Rincon Work Phone: Radiology Comment on above: Multiple myeloma in remission (HCC) [C90.01] Start: 12-25-2024 End: 12-25-2024 Patient encounter procedure Jaime Beatty MD Work Phone: Hematology/Oncology Start: 12-25-2024 End: 12-26-2024 ambulatory Jaime Beatty MD Work Phone: Hematology/Oncology Comment on above: Multiple myeloma in remission (HCC) (Primary Dx); Monoclonal B-cell lymphocytosis; Encounter for antineoplastic chemotherapy; Immunocompromised (HCC) Start: 12-20-2024 End: 12-20-2024 ambulatory HILTON PENA Facility:[facility] Start: 12-10-2024 End: 12-10-2024 Telephone encounter Jaime Beatty MD Work Phone: Hematology/Oncology Comment on above: Cultural Anthropology Professor - O ther (Revlimid refills) Start: 12-03-2024 End: 12-03-2024 Refill Hilton Pena MD Work Phone: [facility] Comment on above: Refill Request Start: 12-02-2024 End: 12-02-2024 Telephone encounter Vince Freitas APRN.[employer] Work Phone: Hematology/Oncology Comment on above: Cultural Anthropology Professor - O ther (Explain Chemo Scheduling) Start: 11-29-2024 End: 11-29-2024 ambulatory Chair 6 [facility] 4 Work Phone: Hematology/Oncology Comment on above: Multiple myeloma, re mission status unspecified (HCC) (Primary Dx); Multiple myeloma in remission (HCC) Start: 11-29-2024 End: 11-29-2024 Patient encounter procedure Vince Freitas APRN.[employer] Work Phone: Hematology/Oncology Start: 11-29-2024 End: 11-30-2024 ambulatory Vince Freitas APRN.[employer] Work Phone: Hematology/Oncology Comment on above: Multiple myeloma in remission (HCC) (Primary Dx) Start: 11-28-2024 End: 01-28-2025 Follow-up encounter Jaime Beatty MD Work Phone: Hematology/Oncology Start: 11-28-2024 End: 11-28-2024 Telephone encounter Jaime Beatty MD Work Phone: Hematology/Oncology Comment on above: Cultural Anthropology Professor - O ther (Change in condition ) Start: 11-26-2024 End: 11-26-2024 Emergency department patient visit Dr. Hilton Pena MD Work Phone: -Emergency Department Work Phone: Start: 11-25-2024 End: 11-25-2024 ambulatory HILTON PENA Facility:[facility] Start: 11-19-2024 End: 11-19-2024 Refill Hilton Pena MD Work Phone: [facility] Pawel Moore Comment on above: Refill Request Start: 11-12-2024 End: 11-13-2024 Specialty Pharmacy Ramya Smith [facility] Comment on above: SPP Oral Oncology/he matology - Medication Refill (Revlimid) Start: 11-08-2024 End: 11-11-2024 Refill Jaime Beatty MD Work Phone: Hematology/Oncology Comment on above: Refill Request Start: 11-06-2024 End: 11-06-2024 Telephone encounter Vince Freitas APRN.[employer] Work Phone: Hematology/Oncology Comment on above: Cultural Anthropology Professor - O ther (Notify of updated appt time/provider) Start: 11-01-2024 End: 11-02-2024 ambulatory Chair [address] [id number] Work Phone: Hematology/Oncology Comment on above: Multiple myeloma, re mission status unspecified (HCC) (Primary Dx); Multiple myeloma not having achieved remission (HCC) Multiple myeloma in remission (HCC) (Primary Dx) Start: 11-01-2024 End: 11-01-2024 Patient encounter procedure Vince Freitas APRN.CNP Work Phone: Hematology/Oncology Start: 10-28-2024 End: 10-28-2024 ambulatory HILTON PENA Facility:[facility] Start: 10-14-2024 End: 10-16-2024 Specialty Pharmacy Ramya Smith [facility] Comment on above: SPP Oral Oncology/he matology - Medication Refill (Revlimid) Start: 10-11-2024 End: 10-11-2024 Refill Jaime Beatty MD Work Phone: Hematology/Oncology Comment on above: Refill Request Start: 10-08-2024 End: 10-08-2024 Patient encounter procedure Vince Freitas APRN.[employer] Work Phone: Hematology/Oncology Start: 10-08-2024 End: 10-09-2024 ambulatory Chair [address] [id number] Work Phone: Hematology/Oncology Comment on above: Multiple myeloma, re mission status unspecified (HCC) (Primary Dx); Encounter for antineoplastic immunotherapy Multiple myeloma in remission (HCC) (Primary Dx) Start: 10-04-2024 End: 10-04-2024 ambulatory [facility] Facility:[facility] Start: 09-20-2024 End: 09-20-2024 Telephone encounter Jaime Beatty MD Work Phone: Hematology/Oncology Comment on above: Cultural Anthropology Professor - O ther (Prescription assistance) Start: 09-17-2024 End: 09-18-2024 Specialty Pharmacy Ramya Smith [facility] Comment on above: SPP Oral Oncology/he matology - Medication Refill (Revlimid) Start: 09-16-2024 End: 09-16-2024 Telephone encounter Jaime Beatty MD Work Phone: Hematology/Oncology Comment on above: Cultural Anthropology Professor - O ther (Medication refill) Refill Request Start: 09-11-2024 End: 09-11-2024 [facility] Facility:[facility] Start: 09-11-2024 End: 09-11-2024 Patient encounter procedure Ruthy Valle PA-C Work Phone: [facility] Comment on above: Coronary artery dise ase due to lipid rich plaque (Primary Dx); Mixed hyperglyceridemia; GERD without esophagitis; Hypothyroidism, acquired; Elevated fasting blood sugar; Multiple myeloma not having achieved remission (HCC); Multiple myeloma, remission status unspecified (HCC); Living will in place; Medication management Start: 09-06-2024 End: 09-07-2024 ambulatory Chair [address] [id number] Work Phone: Hematology/Oncology Comment on above: Multiple myeloma, re mission status unspecified (HCC) (Primary Dx) Multiple myeloma in remission (HCC) (Primary Dx) Start: 09-06-2024 End: 09-06-2024 Patient encounter procedure Vince Freitas APRN.CNP Work Phone: Hematology/Oncology Start: 09-02-2024 End: 09-02-2024 Orders Only Jaime Beatty MD Work Phone: Hematology/Oncology Comment on above: Multiple myeloma, re mission status unspecified (HCC) (Primary Dx) Start: 08-19-2024 End: 08-21-2024 Specialty Pharmacy Ramya Smith [facility] Comment on above: SPP Oral Oncology/he matology - Medication Refill (Revlimid) Start: 08-16-2024 End: 08-19-2024 Refill Jaime Beatty MD Work Phone: Hematology/Oncology Comment on above: Refill Request Start: 08-12-2024 End: 08-12-2024 Orders Only Jaime Beatty MD Work Phone: Hematology/Oncology Start: 08-09-2024 End: 08-09-2024 Patient encounter procedure Jaime Beatty MD Work Phone: Hematology/Oncology Start: 08-09-2024 End: 08-10-2024 ambulatory Jaime Beatty MD Work Phone: Hematology/Oncology Comment on above: Immunocompromised (H CC) (Primary Dx); Multiple myeloma in remission (HCC) Multiple myeloma not having achieved remission (HCC) (Primary Dx); Multiple myeloma, remission status unspecified (HCC) Start: 08-05-2024 End: 08-06-2024 Telephone encounter Andrew Stanton APRN.[employer] Work Phone: [facility] Comment on above: Results Start: 08-05-2024 End: 08-05-2024 Subsequent hospital visit by physician Isaiah [facility] Murillo Work Phone: Radiology Comment on above: Pneumonia of right l ower lobe due to infectious organism [J18.9] Start: 08-05-2024 End: 08-05-2024 ambulatory [facility] Facility:[facility] Start: 07-23-2024 End: 07-23-2024 Patient encounter procedure Andrew Stanton APRN.[employer] Work Phone: [facility] Comment on above: Pneumonia of right l ower lobe due to infectious organism (Primary Dx) Start: 07-23-2024 End: 07-23-2024 ambulatory [facility] Facility:[facility] Start: 07-22-2024 End: 07-22-2024 Specialty Pharmacy José Luis Chapin [facility] Comment on above: SPP Oral Oncology/he matology - Medication Refill (Revlimid) Start: 07-19-2024 End: 07-19-2024 Refill Alvin Balderas APRN.[employer] Work Phone: Hematology/Oncology Comment on above: Refill Request Start: 07-13-2024 End: 07-13-2024 ambulatory HILTONDANO PENA Facility:[facility] Start: 07-13-2024 End: 07-13-2024 Subsequent hospital visit by physician Isaiah [facility] Work Phone: Radiology Comment on above: Pneumonia of right l ower lobe due to infectious organism [J18.9] Start: 07-12-2024 End: 07-13-2024 ambulatory Chair [address] [id number] Hematology/Oncology Comment on above: Multiple myeloma, re mission status unspecified (HCC) (Primary Dx) Multiple myeloma, re mission status unspecified (HCC) (Primary Dx); Diarrhea, unspecified type; Pneumonia of right lower lobe due to infectious organism Start: 07-12-2024 End: 07-12-2024 Patient encounter procedure Alvin Balderas APRN.[employer] Work Phone: Hematology/Oncology Start: 07-08-2024 End: 07-08-2024 ambulatory HILTON PENA Facility:[facility] Start: 06-26-2024 End: 06-26-2024 Telephone encounter Jaime Beatty MD Work Phone: Hematology/Oncology Comment on above: Cultural Anthropology Professor - O ther (Lenolidimide ) Start: 06-24-2024 End: 06-24-2024 Chart abstracting Hilton Pena MD Work Phone: [facility] Comment on above: ER Discharge Summary Start: 06-22-2024 End: 06-22-2024 Emergency department patient visit Hilton Pena Facility:[facility] Start: 06-21-2024 End: 06-21-2024 ambulatory Maureen Ariza [facility] Start: 06-21-2024 End: 06-21-2024 Telephone encounter Jaime Beatty MD Work Phone: Hematology/Oncology Comment on above: Cultural Anthropology Professor - O ther (Message follow up) SPP Oral Oncology/he matology - Medication Refill (Revlimid) Start: 06-20-2024 End: 06-20-2024 Emergency department patient visit Bossman Tapia Facility:[facility] Start: 06-20-2024 End: 06-20-2024 ambulatory Suma Araujo RN NURSE [employer]YING [employer] ATTENDANT Comment on above: Cough Start: 06-19-2024 End: 06-19-2024 Telephone encounter Jaime Beatty MD Work Phone: Hematology/Oncology Comment on above: Cultural Anthropology Professor - O ther (Cough ) Start: 06-18-2024 End: 06-18-2024 Refill Jaime Beatty MD Work Phone: Hematology/Oncology Comment on above: Refill Request Start: 06-17-2024 End: 06-17-2024 Chart abstracting Hilda Ching MA [facility] Medicine [place] Comment on above: ER F/U ([facility] ) Start: 06-15-2024 End: 06-15-2024 Emergency department patient visit Rahul Dalton Facility:[facility] Start: 06-14-2024 End: 06-14-2024 Patient encounter procedure Jaime Beatty MD Work Phone: Hematology/Oncology Start: 06-14-2024 End: 06-14-2024 Subsequent hospital visit by physician Xr [facility] Work Phone: Radiology Comment on above: Multiple myeloma in remission (HCC) [C90.01] Start: 06-14-2024 End: 06-15-2024 ambulatory Chair [address] [place] [address] Work Phone: Hematology/Oncology Comment on above: Multiple myeloma not having achieved remission (HCC) (Primary Dx); Multiple myeloma, remission status unspecified (HCC); Encounter for antineoplastic chemotherapy Multiple myeloma in remission (HCC) (Primary Dx) Start: 06-11-2024 End: 06-11-2024 ambulatory HILTON PENA Facility:[facility] Start: 06-10-2024 End: 06-10-2024 Orders Only Jaime Beatty MD Work Phone: Hematology/Oncology Start: 05-23-2024 End: 05-23-2024 Specialty Pharmacy Maureen Ariza [facility] Comment on above: SPP Oral Oncology/he matology - Medication Refill (Revlimid) Start: 05-22-2024 End: 05-22-2024 Refill Jaime Beatty MD Work Phone: Hematology/Oncology Comment on above: Refill Request Start: 05-20-2024 End: 05-20-2024 Refill Ruthy Valle PA-C Work Phone: [facility] Comment on above: Refill Request Start: 05-17-2024 End: 05-17-2024 ambulatory Chair [address] [facility] 4 Work Phone: Hematology/Oncology Comment on above: Multiple myeloma, re mission status unspecified (HCC) (Primary Dx) Start: 05-17-2024 End: 05-17-2024 Patient encounter procedure Alvin Andrey BELTRAN Work Phone: Hematology/Oncology Start: 05-01-2024 End: 05-10-2024 ambulatory Ramya Smith [facility] Start: 05-01-2024 End: 05-10-2024 Telephone encounter Jaime Beatty MD Work Phone: Hematology/Oncology Comment on above: Cultural Anthropology Professor - O ther (Revlimid) Refill Request SPP Oral Oncology/he matology - Medication Refill (lenalidomide) Start: 04-29-2024 End: 05-01-2024 Telephone encounter Hilton Pena MD Work Phone: [facility] Comment on above: Future Appointment Start: 04-25-2024 End: 04-25-2024 Refill Katey Croft RN Work Phone: Hematology/Oncology Comment on above: Refill Request Cultural Anthropology Professor - O ther (COVID and medication question) SPP Oral Oncology/he matology - Medication Refill (Revlimid) Start: 04-24-2024 End: 04-25-2024 Refill Jaime Beatty MD Work Phone: Hematology/Oncology Comment on above: Refill Request Start: 04-22-2024 End: 04-22-2024 Refill Hilton Pena MD Work Phone: [facility] Comment on above: Refill Request Start: 04-19-2024 End: 04-19-2024 ambulatory Alvin Balderas APRN.[employer] Work Phone: Hematology/Oncology Comment on above: Multiple myeloma in remission (HCC) (Primary Dx) Encounter for antine oplastic immunotherapy (Primary Dx); Multiple myeloma, remission status unspecified (HCC) Start: 04-19-2024 End: 04-19-2024 Patient encounter procedure Alvin Balderas APRN.[employer] Work Phone: Hematology/Oncology Start: 04-04-2024 End: 04-04-2024 Telephone encounter Jaime Beatty MD Work Phone: Hematology/Oncology Comment on above: Cultural Anthropology Professor - O ther (Resuming medication) Start: 04-01-2024 End: 04-01-2024 Specialty Pharmacy Ramya Smith [facility] Comment on above: SPP Oral Oncology/he matology - Medication Refill (lenalidomide) Start: 03-29-2024 End: 03-29-2024 Refill Jaime Beatty MD Work Phone: Hematology/Oncology Comment on above: Refill Request Start: 03-22-2024 End: 03-23-2024 ambulatory Alvin Balderas APRN.[employer] Work Phone: Hematology/Oncology Comment on above: Multiple myeloma, re mission status unspecified (HCC) (Primary Dx); Multiple myeloma not having achieved remission (HCC) Multiple myeloma, re mission status unspecified (HCC) (Primary Dx); Encounter for antineoplastic immunotherapy Start: 03-22-2024 End: 03-23-2024 Patient encounter procedure Alvin Balderas APRN.[employer] Work Phone: Hematology/Oncology Start: 03-06-2024 End: 03-06-2024 Patient encounter procedure Ruthy Valle PA-C Work Phone: [facility] Comment on above: Medicare annual well ness visit, subsequent (Primary Dx); Advance directive discussed with patient; Screening for depression; Encounter for screening examination for other mental health and behavioral disorders; Living will in place; Multiple myeloma not having achieved remission (HCC); Multiple myeloma, remission status unspecified (HCC); Platelets decreased (HCC); Hypothyroidism, acquired; Elevated fasting blood sugar; GERD without esophagitis; Mixed hyperglyceridemia; 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 rich plaque Start: 03-04-2024 Refill Jaime paige MD Work Phone: Hematology/Oncology Comment on above: Refill Request SPP Oral Oncology/he matology - Medication Refill (Revlimid) Start: 02-21-2024 End: 02-21-2024 Patient encounter procedure Jaime Beatty MD Work Phone: Hematology/Oncology Start: 02-21-2024 End: 02-21-2024 ambulatory Chair 24 [facility] 2 Work Phone: Hematology/Oncology Comment on above: Multiple myeloma, re mission status unspecified (HCC) (Primary Dx); Encounter for antineoplastic chemotherapy Multiple myeloma in remission (HCC) (Primary Dx); Hypothyroidism, unspecified type; Gastroesophageal reflux disease without esophagitis; Hyperlipidemia, unspecified hyperlipidemia type Start: 02-20-2024 Refill Hilton dubose MD Work Phone: [facility] Comment on above: Refill Request Start: 02-07-2024 Orders Only Jaime paige MD Work Phone: Hematology/Oncology Start: 02-06-2024 Specialty Pharmacy Karen Salas [facility] Comment on above: SPP Oral Oncology/he matology - Medication Refill (Revlimid refill) Start: 02-05-2024 [place] Tim Hematology /Oncology Comment on above: Refill Request Start: 01-26-2024 End: 01-27-2024 ambulatory Chair [address] [facility] 4 Work Phone: Hematology/Oncology Comment on above: Multiple myeloma, re mission status unspecified (HCC) (Primary Dx) Multiple myeloma in remission (HCC) (Primary Dx) Start: 01-26-2024 End: 01-27-2024 Patient encounter procedure Alvin Balderas APRN.CNP Work Phone: Hematology/Oncology Start: 01-10-2024 Specialty Pharmacy Maureen vargas [facility] Comment on above: SPP Oral Oncology/he matology - Medication Refill (Revlimid) Start: 01-08-2024 Refill Jaime paige MD Work Phone: Hematology/Oncology Comment on above: Refill Request Opened In Error Start: 12-29-2023 End: 12-29-2023 ambulatory Chair [address] [id number] Work Phone: Hematology/Oncology Comment on above: Multiple myeloma not having achieved remission (HCC) (Primary Dx); Multiple myeloma, remission status unspecified (HCC) Multiple myeloma in remission (HCC) (Primary Dx) Start: 12-29-2023 End: 12-29-2023 Patient encounter procedure Alvin Andrey DAHL.[employer] Work Phone: Hematology/Oncology Start: 12-27-2023 Orders Only Jaime paige MD Work Phone: Hematology/Oncology Comment on above: Multiple myeloma, re mission status unspecified (HCC) (Primary Dx) Results Start: 12-25-2023 Telephone encounter Jaime Beatty MD Work Phone: Hematology/Oncology Comment on above: Cultural Anthropology Professor - O ther (Blood in stool) Start: 2023 Specialty Pharmacy Maureen vargas [facility] Comment on above: SPP Oral Oncology/he matology - Medication Refill (Revlimid) Start: 12-13-2023 Telephone encounter Jaime Beatty MD Work Phone: Hematology/Oncology Comment on above: Cultural Anthropology Professor - O ther (Medication question ) Start: 12-11-2023 Refill Maya BROTHERSBR[employer] IN[employer] T[employer] B[employer]ER Work Phone: Hematology/Oncology Comment on above: Refill Request Start: 12-05-2023 Orders Only Jaime paige MD Work Phone: Hematology/Oncology Start: 12-01-2023 End: 12-01-2023 Orders Only Jaime Beatty MD Work Phone: Hematology/Medical Oncology Comment on above: Multiple myeloma, re mission status unspecified (HCC) (Primary Dx); Multiple myeloma not having achieved remission (HCC) Multiple myeloma in remission (HCC) (Primary Dx); Platelets decreased (HCC) Start: 11-23-2023 Refill Jaime paige MD Work Phone: Hematology/Oncology Comment on above: Refill Request Start: 11-17-2023 Specialty Pharmacy Edie curtis [facility] Comment on above: SPP Oral Oncology/he matology - Medication Refill (Revlimid) Start: 11-13-2023 Refill Katey olivera RN Work Phone: Hematology/Oncology Comment on above: Refill Request Start: 11-03-2023 End: 11-03-2023 ambulatory Chair [address] [address] Work Phone: Hematology/Oncology Comment on above: Multiple myeloma, re mission status unspecified (HCC) (Primary Dx); Multiple myeloma not having achieved remission (HCC) Multiple myeloma, re mission status unspecified (HCC) (Primary Dx); Nausea Start: 11-03-2023 End: 11-03-2023 Patient encounter procedure Alvin Balderas APRN.[employer] TUBE BENDER Work Phone: [facility] Start: 10-17-2023 Refill Maya BROTHERSBRASS WIND INSTRUMENTS TUBE BENDER Work Phone: Hematology/Oncology Comment on above: Refill Request Start: 10-09-2023 Telephone encounter Katey Croft RN Work Phone: Hematology/Oncology Comment on above: Patient Update (Symp maxwell Management) Start: 10-09-2023 End: 10-09-2023 Emergency department patient visit [facility] Work Phone: Start: 10-06-2023 End: 10-06-2023 ambulatory Chair [address] [address] Hematology/Oncology Comment on above: Multiple myeloma, re mission status unspecified (HCC) (Primary Dx); Multiple myeloma not having achieved remission (HCC); Encounter for antineoplastic immunotherapy Multiple myeloma, re mission status unspecified (HCC) (Primary Dx) Start: 10-06-2023 End: 10-06-2023 Patient encounter procedure Alvin Balderas APRN.[employer] T[employer]BE BENDER Work Phone: [facility] Start: 10-02-2023 Refill Hilton dubose MD Work Phone: [facility] Comment on above: Refill Request Start: 09-20-2023 Specialty Pharmacy Jackie Elder [facility] Comment on above: SPP Oral Oncology/he matology - Medication Refill (Revlimid) Start: 09-19-2023 End: 09-19-2023 Patient encounter procedure Ruthy Valle PA-C Work Phone: [facility] Comment on above: Coronary artery dise ase due to lipid rich plaque (Primary Dx); Mixed hyperglyceridemia; Hypothyroidism, acquired; Elevated fasting blood sugar; Medication management; Platelets decreased (HCC) Refill Request Start: 09-07-2023 End: 09-07-2023 ambulatory Alvin Balderas APRN.[employer] B[employer]ER Work Phone: Hematology/Oncology Comment on above: Multiple myeloma not having achieved remission (HCC) (Primary Dx); Decrease in appetite Multiple myeloma in remission (HCC) (Primary Dx); Multiple myeloma, remission status unspecified (HCC); Multiple myeloma not having achieved remission (HCC) Start: 09-07-2023 End: 09-07-2023 Patient encounter procedure Alvin Balderas APRN.[employer] T[employer]BE BENDER Work Phone: [facility] Start: 08-22-2023 Refill Jaime paige MD Work Phone: Hematology/Oncology Comment on above: Refill Request Start: 08-16-2023 End: 08-16-2023 Emergency department patient visit [facility]Emergency Department Work Phone: Start: 06-27-2023 Specialty Pharmacy Edie Martinez [facility] Comment on above: SPP Oral Oncology/he matology - Medication Refill (Revlimid) Start: 06-26-2023 Refill Katey olivera RN Work Phone: Hematology/Oncology Comment on above: Refill Request Start: 06-16-2023 End: 06-16-2023 ambulatory [address] [place] [address] Hematology/Oncology Comment on above: Multiple myeloma, re mission status unspecified (HCC) (Primary Dx); Multiple myeloma not having achieved remission (HCC) Start: 05-31-2023 ambulatory JAIME Manuel acility:[phone] Start: 05-31-2023 End: 05-31-2023 Subsequent hospital visit by physician Isaiah BAR Work Phone: Radiology Comment on above: Multiple myeloma not having achieved remission (HCC) [C90.00] Start: 05-30-2023 Specialty Pharmacy [facility] Comment on above: SPP Oral Oncology/he matology - Medication Refill (Revlimid) Start: 05-29-2023 Refill Meg Hinds RN Work Phone: Hematology/Oncology Comment on above: Refill Request Start: 05-26-2023 Telephone encounter Hilton Pena MD Work Phone: [facility] Comment on above: Patient Question Start: 05-19-2023 End: 05-19-2023 ambulatory Chair [address] [facility] Work Phone: Hematology/Oncology Comment on above: Multiple myeloma, re mission status unspecified (HCC) (Primary Dx); Multiple myeloma not having achieved remission (HCC) Start: 05-15-2023 Orders Only Jaime paige MD Work Phone: Hematology/Oncology Start: 05-05-2023 End: 05-06-2023 ambulatory Chair [address] Hematology/Oncology Comment on above: Multiple myeloma in remission (HCC) (Primary Dx); Multiple myeloma, remission status unspecified (HCC) Multiple myeloma, re mission status unspecified (HCC) (Primary Dx) Start: 05-05-2023 End: 05-06-2023 Patient encounter procedure Vince Freitas APRN.[employer] B[employer]ER Work Phone: [facility] Start: 05-02-2023 Specialty Pharmacy [facility] Comment on above: SPP Oral Oncology/he matology - Medication Refill (Revlimid) Start: 04-28-2023 Refill Katey olivera RN Work Phone: Hematology/Oncology Comment on above: Refill Request Start: 04-26-2023 Telephone encounter Jaime Beatty MD Work Phone: Hematology/Oncology Comment on above: Care Coordination (N ose Bleed) Start: 04-21-2023 End: 04-21-2023 ambulatory Chair [address] Work Phone: Hematology/Oncology Comment on above: Multiple myeloma, re mission status unspecified (HCC) (Primary Dx); Multiple myeloma not having achieved remission (HCC); Encounter for antineoplastic chemotherapy Start: 04-14-2023 Orders Only Jaime paige MD Work Phone: Hematology/Oncology Start: 04-07-2023 End: 04-07-2023 ambulatory Chair [address] [place] Hematology/Oncology Comment on above: Multiple myeloma, re mission status unspecified (HCC) (Primary Dx); Encounter for antineoplastic immunotherapy Start: 04-05-2023 [facility] Start: 04-04-2023 Orders Only Jaime paige MD Work Phone: Hematology/Oncology Comment on above: Multiple myeloma not having achieved remission (HCC) (Primary Dx) Start: 03-31-2023 End: 04-01-2023 ambulatory Jaime Beatty MD Work Phone: Hematology/Oncology Comment on above: Oropharyngeal dyspha candi (Primary Dx); Multiple myeloma in remission (HCC); Multiple myeloma not having achieved remission (HCC) Start: 03-31-2023 End: 04-01-2023 Patient encounter procedure Jaime Beatty MD Work Phone: [facility] Start: 03-30-2023 End: 03-30-2023 ambulatory Chair [address] [facility] Work Phone: Hematology/Oncology Comment on above: Multiple myeloma, re mission status unspecified (HCC) (Primary Dx); Encounter for antineoplastic immunotherapy Start: 03-21-2023 End: 03-21-2023 Patient encounter procedure Hilton Pena MD Work Phone: [facility] Comment on above: Medicare annual well ness visit, subsequent (Primary Dx); Mixed hyperglyceridemia; Elevated fasting blood sugar; Hypothyroidism, acquired; GERD without esophagitis; 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 rich plaque; Osteopenia of spine; Advance directive discussed with patient Start: 03-17-2023 End: 03-17-2023 ambulatory Chair [address] [place] Hematology/Oncology Comment on above: Encounter for antine oplastic immunotherapy (Primary Dx); Multiple myeloma, remission status unspecified (HCC) Start: 03-17-2023 Telephone encounter Jamie Beatty MD Work Phone: Hematology/Oncology Comment on above: Cultural Anthropology Professor - O ther (Blood work ) Multiple myeloma, re mission status unspecified (HCC) (Primary Dx) Start: 03-14-2023 Telephone encounter Jaime Beatty MD Work Phone: Hematology/Oncology Comment on above: Care Coordination (U pdate on Revlimid) Start: 03-10-2023 End: 03-10-2023 Subsequent hospital visit by physician Jeormy Johnson (I-Stat/1.5t) Radiology Comment on above: Multiple myeloma not having achieved remission (HCC) [C90.00] Start: 03-09-2023 End: 03-10-2023 Refill Katey Croft RN Work Phone: Hematology/Oncology Comment on above: Refill Request Multiple myeloma, re mission status unspecified (HCC) (Primary Dx); Encounter for antineoplastic immunotherapy Start: 03-08-2023 End: 03-08-2023 Patient encounter procedure Daniel Cameron MD Work Phone: Radiation Oncology Comment on above: Myeloma plasma cell (HCC) (Primary Dx) Start: 03-03-2023 End: 03-03-2023 ambulatory [address] Work Phone: Hematology/Oncology Comment on above: Encounter for antine oplastic immunotherapy (Primary Dx); Multiple myeloma, remission status unspecified (HCC) Start: 03-01-2023 Telephone encounter Financial Navigator Jake Work Phone: Hematology/Oncology Comment on above: Benefits Investigati on Start: 02-28-2023 Telephone encounter Jaime Beatty MD Work Phone: Hematology/Oncology Comment on above: Cultural Anthropology Professor - O ther (Treatment/ Steroid Question) Refill Request Start: 02-27-2023 End: 02-27-2023 Subsequent hospital visit by physician Porsha [facility] (I-Stat) Work Phone: Cat Scan Comment on above: Chronic subdural hem atoma (HCC) [I62.03] Start: 02-27-2023 Telephone encounter Jaime Beatty MD Work Phone: Hematology/Oncology Comment on above: Care Coordination (S pouse Covid/Appointment) Start: 02-23-2023 End: 02-23-2023 ambulatory Chair [address] Work Phone: Hematology/Oncology Comment on above: Multiple myeloma not having achieved remission (HCC) (Primary Dx); Multiple myeloma, remission status unspecified (HCC); Encounter for antineoplastic chemotherapy Multiple myeloma, re mission status unspecified (HCC) (Primary Dx); Chronic subdural hematoma (HCC); Abnormal finding of diagnostic imaging Start: 02-23-2023 End: 02-23-2023 Nursing evaluation of patient and report Nurse Hamilton Main Work Phone: Radiation Oncology Comment on above: Myeloma plasma cell (HCC) (Primary Dx) Multiple myeloma not having achieved remission (HCC) (Primary Dx) Refill Request Start: 02-23-2023 End: 02-23-2023 Patient encounter procedure Edie Martinez [facility] Comment on above: SPP Oral Oncology/he matology - Treatment Referral (Revlimid); Insurance Authorization (Pending PA Submission) Myeloma plasma cell (HCC) (Primary Dx) Start: 02-21-2023 Refill Hilton dubose MD Work Phone: [facility] Comment on above: Refill Request Start: 02-20-2023 Orders Only Daniel Cameron MD Work Phone: Radiation Oncology Comment on above: Myeloma plasma cell (HCC) (Primary Dx) Start: 02-16-2023 Telephone encounter Jaime Beatty MD Work Phone: Hematology/Oncology Comment on above: Cultural Anthropology Professor - O ther (Return call needed) Start: 02-15-2023 End: 02-15-2023 Patient encounter procedure Daniel Cameron MD Work Phone: Radiation Oncology Comment on above: Myeloma plasma cell (HCC); Pain of left clavicle; Multiple myeloma not having achieved remission (HCC) Start: 02-11-2023 ambulatory JAIME Manuel acility:[phone] Start: 02-11-2023 End: 02-11-2023 Subsequent hospital visit by physician [facility] 2 Work Phone: Radiology CT Scan Comment on above: Multiple myeloma not having achieved remission (HCC) [C90.00] Start: 01-30-2023 End: 01-30-2023 ambulatory HILTON PENA Facility:[facility] Start: 01-23-2023 ambulatory ALEX ANAYA Facility: [facility] Start: 01-23-2023 End: 01-23-2023 Subsequent hospital visit by physician Ct [facility] RADIO CT SCAN [facility] Comment on above: Pathological fractur e of left clavicle, initial encounter [M84.412A] Start: 01-17-2023 End: 01-17-2023 Office outpatient new 45 minutes Alex Anaya MD Work Phone: Orthopaedics Comment on above: Pathological fractur e of left clavicle, initial encounter (Primary Dx); Abnormal x-ray; Pain of left clavicle; Abnormal CT scan; Abnormal radionuclide bone scan; Abnormal findings on diagnostic imaging of other specified body structures Start: 01-06-2023 Telephone encounter Hilton Pena MD Work Phone: [facility] Comment on above: Results Start: 01-05-2023 End: 01-05-2023 Patient encounter procedure Hilton Pena MD Work Phone: [facility] Comment on above: APPOINTMENT CANCELLE D (Primary Dx) Start: 12-29-2022 ambulatory Hilton dubose MD Work Phone: [facility] Comment on above: Medication Problem Start: 12-27-2022 Telephone encounter Nico watson APRN.CNP Work Phone: Urgent Care Comment on above: Patient Update; Loyda ent Question Results Start: 12-27-2022 End: 12-27-2022 Patient encounter procedure Andrew Mcclellanespinoza DAHL.[employer] TUBE BENDER Work Phone: [facility] Comment on above: Cellulitis of skin ( Primary Dx) Start: 12-26-2022 End: 12-26-2022 Subsequent hospital visit by physician Xr [facility] Work Phone: Radiology Comment on above: Clavicle pain [M89.8 X1] Start: 12-26-2022 End: 12-26-2022 Patient encounter procedure Nico Holloway NABILA.[employer] TUBE BENDER Work Phone: [facility] Comment on above: Clavicle pain (Prima ry Dx) Start: 12-07-2022 ambulatory [facility] Start: 09-07-2022 End: 09-07-2022 Patient encounter procedure Hilton Pena MD Work Phone: [facility] Comment on above: Mixed hyperglyceride zaria (Primary Dx); Hypothyroidism, acquired; Elevated fasting blood sugar; GERD without esophagitis; 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 rich plaque; Thrombocytopenia (HCC); History of 2019 novel coronavirus disease (COVID-19); Medication management Start: 08-12-2022 Refill Hilton dubose MD Work Phone: [facility] Comment on above: Refill Request Start: 05-02-2022 Telephone encounter Hilton Pena MD Work Phone: [facility] Comment on above: Patient Question Start: 03-24-2022 End: 03-24-2022 Subsequent hospital visit by physician Isaiah [facility] Work Phone: Radiology Comment on above: Acute cough [R05.1] Start: 03-24-2022 End: 03-24-2022 Patient encounter procedure Hilton Monsalve APRN.[employer] TUBE BENDER Work Phone: [facility] Comment on above: Acute cough (Primary Dx) Start: 03-18-2022 Telephone encounter Hilton medina APRN.[employer] TUBE BENDER Work Phone: [facility] Comment on above: Results Start: 03-18-2022 End: 03-18-2022 ambulatory Pat Gibson DRAGGER.[employer] TUBE BENDER Work Phone: [facility] [place] Comment on above: COVID-19 (Primary Dx ) Start: 03-18-2022 End: 03-18-2022 Telemedicine consultation with patient Pat Gibson APRN.[employer] TUBE BENDER Work Phone: [facility] Start: 03-17-2022 End: 03-17-2022 Patient encounter procedure Hilton Tellesanirudh DRAGGER.[employer] TUBE BENDER Work Phone: [facility] Comment on above: Suspected COVID-19 v irus infection (Primary Dx) Start: 02-25-2022 End: 02-25-2022 Patient encounter procedure Hilton Pena MD Work Phone: [facility] [place] Comment on above: Medicare annual well ness visit, subsequent (Primary Dx); Mixed hyperglyceridemia; Hypothyroidism, acquired; Elevated fasting blood sugar; GERD without esophagitis; 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 rich plaque; Osteopenia of spine; Living will in place; Advance directive discussed with patient; Low serum vitamin B12; Thrombocytopenia (HCC) Start: 02-07-2022 Refill Hilton dubose MD Work Phone: [facility] Comment on above: Refill Request Start: 10-25-2021 End: 10-25-2021 Subsequent hospital visit by physician Jenn Simmons MD Work Phone: [facility] Start: 02-12-2021 Patient encounter procedure Hilton Pena MD Work Phone: [facility] Work Phone: Start: 02-06-2019 End: 02-09-2019 Patient encounter procedure FROYLAN [facility] Start: 08-08-2018 End: 08-11-2018 Patient encounter procedure FROYLAN [facility] Start: 05-14-2018 End: 05-17-2018 Patient encounter procedure MT MOLINA [facility] Procedures Date Procedure Procedure Detail Performing Clinician Start: 03-11-2025 Adult depression scr eening assessment Ruthy Valle PA-C Work Phone: Start: 12-25-2024 Radiologic examinati on osseous survey compl Jaime Beatty MD Work Phone: Start: 08-09-2024 Hepatitis b core ant ibody hbcab total Jaime Beatty MD Work Phone: Start: 08-09-2024 Iaad ia hepatitis b surface antigen Jaime Beatty MD Work Phone: Start: 08-05-2024 Radiologic exam ches t 2 views Andrew Stanton DRAGGER.[employer]BE BENDER Work Phone: Start: 07-15-2024 Inf agent det nuclei c acid clostridium amp probe Saveta Andrey DRAGGER.[employer] T[employer]BE BENDER Work Phone: Start: 06-14-2024 Radiologic exam ches t 2 views Jaime Beatty MD Work Phone: Start: 03-22-2024 Blood count complete auto&auto difrntl wbc Saveta Andrey DRAGGER.[employer] TUBE BENDER Work Phone: Start: 03-06-2024 Adult depression scr eening assessment Ruthy Valle PA-C Work Phone: Start: 05-31-2023 Radiologic exam ches t 2 views Jaime Beatty MD Work Phone: Start: 03-10-2023 Mri abdomen w/o & w/contrast material Jaime Beatty MD Work Phone: Start: 02-27-2023 Ct head/brain w/o co ntrast material Saveta Andrey DRAGGER.[employer] T[employer]BE BENDER Work Phone: Start: 02-23-2023 HEP REMOTE PANEL BL Quyen is Cornel Beatty MD Work Phone: Start: 02-23-2023 Hepatitis c antibody Lo uis Cornel Beatty MD Work Phone: Start: 02-23-2023 Iaad ia hepatitis b surface antigen Jaime Beatty MD Work Phone: Start: 12-26-2022 Radex clavicle complete Nico Holloway DRAGGER.[employer] T[employer]BE BENDER Work Phone: Start: 03-24-2022 Radiologic exam ches t 2 views Hilton Monsalve DRAGGER.[employer] T[employer]BE BENDER Work Phone: Start: 02-06-2019 Assay of thyroid stimulating hormone tsh [facility] Start: 02-06-2019 Blood count complete auto&auto difrntl wbc [facility] Start: 02-06-2019 Comprehensive metabo lic panel [facility] Start: 02-06-2019 Lipid panel FRANKY [facility] Start: 08-08-2018 Assay of thyroid stimulating hormone tsh [facility] Start: 08-08-2018 Blood count complete auto&auto difrntl wbc [facility] Start: 08-08-2018 Comprehensive metabo lic panel [facility] Start: 08-08-2018 Lipid panel FRANKY [facility] Start: 05-15-2018 SURGICAL PATHOLOGY CONS TANTINE JESSE Plan of Treatment Date Care Activity Detail Author Start: 08-20-2031 DTaP/Tdap/Td vaccine (3 - Td or Tdap) DTaP/Tdap/Td vaccine (3 - Td or Tdap) [facility] Start: 08-20-2031 Urine microalbumin profile [facility] Start: 03-17-2028 Diabetes Screening Diabetes Screening [facility] Start: 02-18-2028 Diabetes Screening Diabetes Screening [facility] Start: 01-21-2028 Diabetes Screening Diabetes Screening [facility] Start: 12-21-2027 Diabetes Screening Diabetes Screening [facility] Start: 11-26-2027 Diabetes Screening Diabetes Screening [facility] Start: 10-29-2027 Diabetes Screening Diabetes Screening [facility] Start: 10-05-2027 Diabetes Screening Diabetes Screening [facility] Start: 09-02-2027 Diabetes Screening Diabetes Screening [facility] Start: 08-05-2027 Diabetes Screening Diabetes Screening [facility] Start: 07-08-2027 Diabetes Screening Diabetes Screening [facility] Start: 06-11-2027 Diabetes Screening Diabetes Screening [facility] Start: 05-14-2027 Diabetes Screening Diabetes Screening [facility] Start: 04-15-2027 Diabetes Screening Diabetes Screening [facility] Start: 03-19-2027 Diabetes Screening Diabetes Screening [facility] Start: 02-18-2027 Diabetes Screening Diabetes Screening [facility] Start: 01-22-2027 Diabetes Screening Diabetes Screening [facility] Start: 12-25-2026 Diabetes Screening Diabetes Screening [facility] Start: 11-27-2026 Diabetes Screening Diabetes Screening [facility] Start: 10-30-2026 Diabetes Screening Diabetes Screening [facility] Start: 10-04-2026 Diabetes Screening Diabetes Screening [facility] Start: 09-06-2026 Diabetes Screening Diabetes Screening [facility] Start: 08-09-2026 Diabetes Screening Diabetes Screening [facility] Start: 06-14-2026 Diabetes Screening Diabetes Screening [facility] Start: 05-30-2026 Diabetes Screening Diabetes Screening [facility] Start: 05-18-2026 Diabetes Screening Diabetes Screening [facility] Start: 05-04-2026 Diabetes Screening Diabetes Screening [facility] Start: 04-20-2026 Diabetes Screening Diabetes Screening [facility] Start: 04-06-2026 Diabetes Screening Diabetes Screening [facility] Start: 03-29-2026 DIABETES SCREEN DIABETES SCREEN [facility] Start: 03-29-2026 Diabetes Screening Diabetes Screening [facility] Start: 03-16-2026 DIABETES SCREEN DIABETES SCREEN [facility] Start: 03-11-2026 Anxiety Screening Anxiety Screening [facility] Start: 03-11-2026 Depression Screening Depression Screening [facility] Start: 03-11-2026 Medicare Annual Wellness Visit Medicare Annual Wellness Visit [facility] Start: 03-02-2026 DIABETES SCREEN DIABETES SCREEN [facility] Start: 02-22-2026 DIABETES SCREEN DIABETES SCREEN [facility] Start: 02-17-2026 Hepatitis B surface antibody level LDL Cholesterol [facility] Start: 02-15-2026 DIABETES SCREEN DIABETES SCREEN [facility] Start: 01-17-2026 DIABETES SCREEN DIABETES SCREEN [facility] Start: 09-09-2025 End: 09-09-2025 Patient encounter procedure 09/09/2025 12:00 PM EST Office Visit [facility] [address] [place] [id number] Ruthy Valle PA-C [address] [place] [id number] 6 month follow up Family [facility] Comment on above: 6 month follow up Start: 09-05-2025 End: 09-05-2025 ambulatory Hematology/Oncology Comment on above: B FASPRO 2HR [place] TRX F/U Start: 09-02-2025 Hepatitis B surface antibody level LDL Cholesterol [facility] Start: 09-02-2025 End: 09-02-2025 ambulatory 09/02/2025 7:00 AM EST Results Only Teresa [facility] Draw Station [address] [place] [address] Labs per wq Teresa [facility] Draw Station Comment on above: Labs per wq Start: 08-31-2025 End: 11-30-2025 Hemoglobin A1c in Blood HEMOGLOBIN A1C Lab Routine Elevated fasting blood sugar Expected: 08/31/2025, Expires: 11/30/2025 [facility] Comment on above: Expected: 08/31/2025, Expires: Start: 08-31-2025 End: 11-30-2025 LIPID PANEL, NONFASTING LIPID PANEL, NONFASTING Lab Routine Mixed hyperglyceridemia Expected: 08/31/2025, Expires: 11/30/2025 [facility] Work Phone: Comment on above: Expected: 08/31/2025, Expires: Start: 08-31-2025 End: 11-30-2025 Thyrotropin [Units/volume] in Serum or Plasma THYROID STIMULATING HORMONE Lab Routine Hypothyroidism, acquired Expected: 08/31/2025, Expires: 11/30/2025 [facility] Comment on above: Expected: 08/31/2025, Expires: Start: 08-29-2025 DIABETES SCREEN DIABETES SCREEN [facility] Start: 08-08-2025 End: 08-08-2025 ambulatory Hematology/Oncology Comment on above: TRX F/U B FASPRO 2HR [place] Start: 08-05-2025 End: 08-05-2025 ambulatory 08/05/2025 7:00 AM EST Results Only Teresa [place] [facility] Laboratory [address] [place] [address] Labs per wq Teresa [place]wn [facility] Laboratory Comment on above: Labs per wq Start: 07-11-2025 End: 07-11-2025 ambulatory Hematology/Oncology Comment on above: B FASPRO 2HR TX TRX F/U Start: 07-08-2025 End: 07-08-2025 ambulatory 07/08/2025 7:00 AM EST Results Only Teresa Doherty [facility] Laboratory [address] [place] [address] Labs per wq Teresakenneth Doherty [facility] Laboratory Comment on above: Labs per wq Start: 06-13-2025 End: 06-13-2025 ambulatory Hematology/Oncology Comment on above: TRX F/U B FASPRO 2HR [place] Start: 06-10-2025 End: 06-10-2025 ambulatory 06/10/2025 7:00 AM EST Results Only Teresa Doherty [facility] Laboratory [address] [place] [address] Labs per wq [place] Doherty [facility] Laboratory Comment on above: Labs per wq Start: 05-15-2025 End: 05-15-2025 ambulatory Hematology/Oncology Comment on above: TRX F/U B FASPRO 2HR [place] Start: 05-13-2025 End: 05-13-2025 ambulatory 05/13/2025 7:00 AM EDT Results Only Teresa Doherty [facility] Laboratory [address] [place] [address] Labs per wq Teresa Doherty [facility] Laboratory Comment on above: Labs per wq Start: 04-24-2025 End: 04-24-2025 Specialty Pharmacy 04/24/2025 8:00 AM EDT Specialty Pharmacy [facility] [address] [place] [phone] Pharmacist, [facility] [address] [place] [phone] Refill - Revlimid [28D] - REMS - C10/13 - Send dosing calendar - Send Tracking: [email or web address] - [facility] Comment on above: Refill - Revlimid [28D] - REMS - C10/13 - Send dosing calendar - Send Tracking: [email or web address] - Start: 04-18-2025 End: 04-18-2025 ambulatory Hematology/Oncology Comment on above: B FASPRO 2HR TX TRX F/U Start: 04-15-2025 End: 07-15-2025 Hepatitis B virus surface Ab [Presence] in Serum HEPATITIS B SURFACE ANTIBODY Lab Routine Multiple myeloma in remission (HCC) Expected: 04/15/2025, Expires: 07/15/2025 [facility] Work Phone: Comment on above: Expected: 04/15/2025, Expires: Start: 04-15-2025 End: 04-15-2025 ambulatory 04/15/2025 7:00 AM EDT Results Only [facility] [address] [place] [address] Labs per wq [facility] Comment on above: Labs per wq Start: 04-02-2025 End: 04-02-2025 Specialty Pharmacy 04/02/2025 7:30 AM EDT Specialty Pharmacy [facility] [address] [place] [address] Pharmacist, [facility] [address] [place] [address] [place] [address] Refill - Revlimid [28D] - REMS - C9/15 - Send dosing calendar - Send Tracking: [employer] - refill req sent 03/27 [facility] Comment on above: Refill - Revlimid [28D] - REMS - C9/15 - Send dosing calendar - Send Tracking: [employer] - refill req sent 03/27 Start: 03-27-2025 End: 03-27-2025 Specialty Pharmacy 03/27/2025 8:00 AM EDT Specialty Pharmacy [facility] [address] [place] [address] Pharmacist, [facility] [address] [place] [address] [place] [address] Refill - Revlimid [28D] - REMS - C9/15 - Send dosing calendar - Send Tracking: [employer] [facility] Comment on above: Refill - Revlimid [28D] - REMS - C9/15 - Send dosing calendar - Send Tracking: [email or web address] Start: 03-24-2025 Influenza vaccination Influenza Vaccine (#1) [place] bynum Start: 03-21-2025 End: 03-21-2025 ambulatory Hematology/Oncology Comment on above: TRX F/U B FASPRO 2HR TX Start: 03-18-2025 End: 03-18-2025 ambulatory 03/18/2025 7:00 AM EDT Results Only [facility] [address] [place], [place] [address] Labs per wq [facility] Comment on above: Labs per wq Start: 03-13-2025 End: 03-13-2025 Patient encounter procedure 03/13/2025 11:00 AM EDT Office Visit Orthopaedics [address] [place], [place] [id number] Mele Mejia MD [address] [place] [address] Gandhi's cyst of knee, 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]; Immunocompromised (HCC) [D84.9]; Multiple myeloma in remission (HCC) [C90.01] Orthopaedics Comment on above: Gandhi's cyst of knee, 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]; Im munocompromised (HCC) [D84.9]; Multiple myeloma in remission (HCC) [C90.01] Start: 03-11-2025 End: 06-10-2025 Cobalamin (Vitamin B12) [Mass/volume] in Serum or Plasma VITAMIN B12 Lab Routine Medication management Expected: 03/11/2025, Expires: 06/10/2025 [facility] Comment on above: Expected: 03/11/2025, Expires: Start: 03-11-2025 End: 06-10-2025 Hemoglobin A1c in Blood HEMOGLOBIN A1C Lab Routine Elevated fasting blood sugar Expected: 03/11/2025, Expires: 06/10/2025 [facility] Comment on above: Expected: 03/11/2025, Expires: Start: 03-11-2025 End: 06-10-2025 LIPID PANEL, NONFASTING LIPID PANEL, NONFASTING Lab Routine 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 rich plaque Mixed hyperglyceridemia Expected: 03/11/2025, Expires: 06/10/2025 [facility] Work Phone: Comment on above: Expected: 03/11/2025, Expires: Start: 03-11-2025 End: 06-10-2025 Magnesium [Mass/volume] in Serum or Plasma MAGNESIUM Lab Routine Medication management Expected: 03/11/2025, Expires: 06/10/2025 [facility] Comment on above: Expected: 03/11/2025, Expires: Start: 03-11-2025 End: 06-10-2025 Thyrotropin [Units/volume] in Serum or Plasma THYROID STIMULATING HORMONE Lab Routine Hypothyroidism, acquired Expected: 03/11/2025, Expires: 06/10/2025 [facility] Comment on above: Expected: 03/11/2025, Expires: Start: 03-11-2025 End: 06-10-2025 Urinalysis complete panel - Urine URINALYSIS, WITH MICROSCOPIC Lab Routine 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 rich plaque Mixed hyperglyceridemia GERD without esophagitis Expected: 03/11/2025, Expires: 06/10/2025 [facility] Comment on above: Expected: 03/11/2025, Expires: Start: 03-11-2025 End: 03-11-2025 Patient encounter procedure 03/11/2025 12:00 PM EDT Office Visit Family Medicine Teresa [address] [facility] [place] [address] Ruthy Valle PA-C [address] [facility] [place] [address] medicare 6 months Family Medicine Teresa Comment on above: medicare 6 months Start: 03-06-2025 Anxiety Screening Anxiety Screening [facility] Start: 03-06-2025 Depression Screening Depression Screening [facility] Start: 03-06-2025 Medicare Annual Wellness Visit Medicare Annual Wellness Visit [facility] Start: 03-06-2025 End: 03-06-2025 Specialty Pharmacy 03/06/2025 7:30 AM EDT Specialty Pharmacy [facility] [address] [place] [address] Pharmacist, [facility] [address] [place] [address] [place] [address] Refill - Revlimid [28D] - REMS - C8/18 - Send dosing calendar - Send Tracking: [employer] - refill req 02/28 - rte'd chart to [facility] 02/28 [facility] Comment on above: Refill - Revlimid [28D] - REMS - C8/18 - Send dosing calendar - Send Tracking: [employer] - refill req 02/28 - rte'd chart to [facility] 02/28 Start: 02-28-2025 End: 02-28-2025 Specialty Pharmacy 02/28/2025 7:15 AM EDT Specialty Pharmacy [facility] [address] [place] [address] Pharmacist, [facility] [address] [place] [address] [place] [address] Refill - Revlimid [28D] - REMS - C8/18 - Send dosing calendar - Send Tracking: [employer] - [facility] Comment on above: Refill - Revlimid [28D] - REMS - C8/18 - Send dosing calendar - Send Tracking: [employer] - Start: 02-21-2025 End: 02-21-2025 ambulatory Hematology/Oncology Comment on above: TRX F/U B FASPRO 2HR TX B FASPRO/zom? 2HR TX Start: 02-18-2025 End: 02-18-2025 ambulatory 02/18/2025 7:00 AM EDT Results Only Teresa Doherty [facility] Laboratory [address] [place] [address] Labs per wq Teresa Eugenewn [facility] Laboratory Comment on above: Labs per wq Start: 02-11-2025 DIABETES SCREEN DIABETES SCREEN [facility] Start: 02-04-2025 End: 02-04-2025 Specialty Pharmacy 02/04/2025 7:45 AM EDT Specialty Pharmacy [facility] [address] [place], [place] [phone] Pharmacist, [facility] [address] [place] [address] [place] [address] Refill - Revlimid [28D] - REMS - C7/21 - Send dosing calendar - Send Tracking: [employer] - [facility] Specialty Pharmacy Comment on above: Refill - Revlimid [28D] - REMS - C7/21 - Send dosing calendar - Send Tracking: [employer] - Start: 01-31-2025 End: 01-31-2025 Specialty Pharmacy 01/31/2025 7:15 AM EDT Specialty Pharmacy [facility] [address] [place], [place] [phone] Pharmacist, [facility] [address] [place] [address] [place] [address] Refill - Revlimid [28D] - REMS - C7/21 - Send dosing calendar - Send Tracking: [employer] - [facility] Special[facility] Pharmacy Comment on above: Refill - Revlimid [28D] - REMS - C7/21 - Send dosing calendar - Send Tracking: [employer] - Start: 01-27-2025 End: 01-27-2025 Patient encounter procedure 01/27/2025 5:00 PM EDT Appointment Radiology [address] [place] [address] [M79.89, C90.01] US DVT LOWER RIGHT Radiology Comment on above: [M79.89, C90.01] US DVT LOWER RIGHT Start: 01-24-2025 End: 04-25-2025 CBC W Auto Differential panel - Blood COMPLETE BLOOD COUNT AND DIFFERENTIAL Lab Routine Multiple myeloma in remission (HCC) Expected: 01/24/2025 (Approximate), Expires: 04/25/2025 [facility] Comment on above: Expected: 01/24/2025 (Approximate), Expi res: 04/25/2025 Start: 01-24-2025 End: 04-25-2025 Comprehensive metabolic 2000 panel - Serum or Plasma COMPREHENSIVE METABOLIC PANEL Lab Routine Multiple myeloma in remission (HCC) Expected: 01/24/2025 (Approximate), Expires: 04/25/2025 [facility] Comment on above: Expected: 01/24/2025 (Approximate), Expi res: 04/25/2025 Start: 01-24-2025 End: 04-25-2025 Lactate dehydrogenase [Enzymatic activity/volume] in Serum or Plasma LACTATE DEHYDROGENASE Lab Routine Multiple myeloma in remission (HCC) Expected: 01/24/2025 (Approximate), Expires: 04/25/2025 [facility] Comment on above: Expected: 01/24/2025 (Approximate), Expi res: 04/25/2025 Start: 01-24-2025 End: 04-25-2025 MONOCLONAL PROT UR W/INTERP MONOCLONAL PROT UR W/INTERP Lab Routine Multiple myeloma in remission (HCC) Expected: 01/24/2025 (Approximate), Expires: 04/25/2025 [facility] Work Phone: Comment on above: Expected: 01/24/2025 (Approximate), Expi res: 04/25/2025 Start: 01-24-2025 End: 04-25-2025 MONOCLONAL PROTEIN, SERUM (BLOOD) MONOCLONAL PROTEIN, SERUM (BLOOD) Lab Routine Multiple myeloma in remission (HCC) Expected: 01/24/2025 (Approximate), Expires: 04/25/2025 [facility] Comment on above: Expected: 01/24/2025 (Approximate), Expi res: 04/25/2025 Start: 01-24-2025 End: 04-25-2025 PROTEIN ELECT RND UR W/INTERP PROTEIN ELECT RND UR W/INTERP Lab Routine Multiple myeloma in remission (HCC) Expected: 01/24/2025 (Approximate), Expires: 04/25/2025 [facility] Comment on above: Expected: 01/24/2025 (Approximate), Expi res: 04/25/2025 Start: 01-24-2025 End: 04-25-2025 PROTEIN ELECTROPHORESIS SERUM W/INTERP PROTEIN ELECTROPHORESIS SERUM W/INTERP Lab Routine Multiple myeloma in remission (HCC) Expected: 01/24/2025 (Approximate), Expires: 04/25/2025 [facility] Comment on above: Expected: 01/24/2025 (Approximate), Expi res: 04/25/2025 Start: 01-23-2025 End: 02-22-2026 US Lower extremity vein - right US DVT LOWER RIGHT Radiology Routine Right leg swelling Multiple myeloma in remission (HCC) Expected: 01/23/2025, Expires: 02/22/2026 [facility] Work Phone: Comment on above: Expected: 01/23/2025, Expires: Start: 01-23-2025 End: 01-23-2025 ambulatory Hematology/Oncology Comment on above: TRX F/U C, FASPRO C, FASPRO, ZOM Start: 01-21-2025 End: 01-21-2025 ambulatory 01/21/2025 7:00 AM EDT Results Only [facility] [address] [place] [address] LABS [facility] Comment on above: LABS Start: 01-10-2025 End: 01-10-2025 Specialty Pharmacy 01/10/2025 8:15 AM EDT Specialty Pharmacy [facility] [address] [place], [place] [id number] [address] Pharmacist, [place] [phone] Refill - Revlimid [28D] - REMS - C6/23 - Send dosing calendar - Send Tracking: [email or web address] - refill reqceived 01/03 [facility] Comment on above: Refill - Revlimid [28D] - REMS - C6/23 - Send dosing calendar - Send Tracking: [email or web address] - refill reqceived 01/03 Start: 01-03-2025 End: 01-03-2025 Specialty Pharmacy 01/03/2025 7:30 AM EDT Specialty Pharmacy [facility] [address] [place] [address] Pharmacist, [facility] [address] [place] [address] Refill - Revlimid [28D] - REMS - C6/23 - Send dosing calendar - Send Tracking: [email or web address] - [facility] Comment on above: Refill - Revlimid [28D] - REMS - C6/23 - Send dosing calendar - Send Tracking: [email or web address] - Start: 12-27-2024 End: 12-27-2024 ambulatory Hematology/Oncology Comment on above: TRX F/U Misa, FASPRO Start: 12-25-2024 Hepatitis B surface antibody level LDL Cholesterol [facility] Start: 12-25-2024 End: 12-25-2024 ambulatory 12/25/2024 12:45 PM EDT Infusion Center Hematology/Oncology [address] [place] [address] C, FASPRO Hematology/Oncology Comment on above: C, FASPRO Start: 12-25-2024 End: 12-25-2024 ambulatory 12/25/2024 10:30 AM EDT Visit (SP) Office Hematology/Oncology [address] [place] [address] Jaime Beatty MD [address] [place] [address] TRX F/U Hematology/Oncology Comment on above: TRX F/U Start: 12-24-2024 End: 12-24-2024 ambulatory 12/24/2024 7:00 AM EDT Results Only Teresa Doherty [facility] Laboratory [address] [place] [address] LABS Teresa Doherty [facility] Laboratory Comment on above: LABS Start: 12-09-2024 End: 12-09-2024 Specialty Pharmacy 12/09/2024 7:30 AM EDT Specialty Pharmacy [facility] [address] [place] [phone] Pharmacist, [facility]ty[facility] 1 [address] [facility] [place] [address] Refill - Revlimid [28D] - REMS - C5/ - Send dosing calendar - Send Tracking: [email or web address] - [facility] Comment on above: Refill - Revlimid [28D] - REMS - C5/26 - Send dosing calendar - Send Tracking: [email or web address] - Start: 11-29-2024 End: 11-29-2024 ambulatory 11/29/2024 12:45 PM EDT [facility] Hematology/Oncology [id number] [place], [place] [phone] FIDELINA Bynum Hematology/Oncology Comment on above: FIDELINA Bynum Start: 11-29-2024 End: 11-29-2024 ambulatory 11/29/2024 11:30 AM EDT Visit (SP) Office Hematology/Oncology [address] [place], [place] [phone] Vince Freitas, DRAGGER.[employer] [address] [place], [place] [phone] PED assigned Hematology/Oncology Comment on above: PED assigned Start: 11-29-2024 End: 11-29-2024 Follow-up encounter 11/29/2024 11:30 AM EDT Visit (SP) Office Hematology/Oncology [address] [place], [place] [phone] Vince Freitas, DRAGGER.[employer] [address] [place], [place] [phone] Follow up per Jessica Hematology/Oncology Comment on above: Follow up per Jessica Start: 11-26-2024 [facility] Start: 11-26-2024 End: 11-26-2024 ambulatory 11/26/2024 7:00 AM EDT Results Only Teresa Eugenewn [facility] Laboratory [address] [place] [address] LABS [facility] Comment on above: LABS Start: 11-15-2024 End: 11-15-2024 Specialty Pharmacy 11/15/2024 7:15 AM EDT Specialty Pharmacy [facility] [address] [place] [phone] Pharmacist, [facility] [address] [place] [address] [place] [address] Refill - Revlimid [28D] - REMS - C4/28 - Send dosing calendar - Send Tracking: [employer] - ref request 11/08 [facility] Comment on above: Refill - Revlimid [28D] - REMS - C4/28 - Send dosing calendar - Send Tracking: [employer] - ref request 11/08 [facility] Start: 11-11-2024 End: 11-11-2024 Specialty Pharmacy 11/11/2024 7:15 AM EDT Specialty Pharmacy [facility] [address] [place] [address] Pharmacist, [facility] [address] [place] [address] [place] [address] Refill - Revlimid [28D] - REMS - C4/28 - Send dosing calendar - Send Tracking: [employer] [facility] Specialty Pharmacy Comment on above: Refill - Revlimid [28D] - REMS - C4/28 - Send dosing calendar - Send Tracking: [employer] Start: 11-01-2024 End: 11-01-2024 ambulatory Hematology/Oncology Comment on above: TRX F/U C, FASPRO C, FASPRO, ZOM Start: 10-29-2024 End: 10-29-2024 ambulatory 10/29/2024 7:00 AM EDT Results Only Teresa Doherty [facility] Laboratory [address] [place] [address] TRX LABS [facility] Comment on above: TRX LABS Start: 10-16-2024 End: 10-16-2024 Specialty Pharmacy 10/16/2024 7:30 AM EDT Specialty Pharmacy [facility] [address] [place] [address] Pharmacist, [facility] [address] [place] [address] [place] [address] Refill - Revlimid [28D] - REMS - C3/31 - Send dosing calendar - Send Tracking: [employer] - rfl req'd 10/11 [facility] Comment on above: Refill - Revlimid [28D] - REMS - C3/31 - Send dosing calendar - Send Tracking: [employer] - rfl req'd 10/11 Start: 10-14-2024 End: 10-14-2024 Specialty Pharmacy 10/14/2024 7:45 AM EDT Specialty Pharmacy [facility] [address] [place] [phone] Pharmacist, [facility] [address] [place] [address] [place] [address] Refill - Revlimid [28D] - REMS - C3/31 - Send dosing calendar - Send Tracking: [employer] [facility] Comment on above: Refill - Revlimid [28D] - REMS - C3/31 - Send dosing calendar - Send Tracking: [employer] Start: 10-04-2024 End: 10-04-2024 ambulatory Hematology/Oncology Comment on above: TRX F/U C, FASPRO Start: 10-01-2024 End: 10-01-2024 ambulatory 10/01/2024 7:00 AM EDT Results Only Teresa Doherty [facility] Laboratory [address] [place] [address] TRX LABS Teresakenneth Eugenewn [facility] Laboratory Comment on above: TRX LABS Start: 09-19-2024 End: 09-19-2024 Specialty Pharmacy 09/19/2024 7:45 AM EST Specialty Pharmacy [facility] [address] [place] [address] Pharmacist, [facility] [address] [place] [address] [place] [address] Refill - Revlimid [28D] - REMS - C3/3 - Send dosing calendar - Send Tracking: [employer] - rfl req'd 09/16 [facility] Comment on above: Refill - Revlimid [28D] - REMS - C3/3 - Send dosing calendar - Send Tracking: [employer] - rfl req'd 09/16 Start: 09-16-2024 End: 09-16-2024 Specialty Pharmacy 09/16/2024 7:15 AM EST Specialty Pharmacy [facility] [address] [place] [address] Drive [facility] [place] [address] Pharmacist, [facility]ty[facility] [address] [place] [address] [place] [address] Refill - Revlimid [28D] - REMS - C3/3 - Send dosing calendar - Send Tracking: [employer] [facility] Comment on above: Refill - Revlimid [28D] - REMS - C3/3 - Send dosing calendar - Send Tracking: [employer] Start: 09-11-2024 End: 09-11-2024 Patient encounter procedure 09/11/2024 12:40 PM EST Office Visit Family Medicine Teresa [address] [place], [place] [phone] Ruthy Valle PA-C [address] [place], [place] [phone] 6 month f/u Family Medicine Teresa Comment on above: 6 month f/u Start: 09-06-2024 Hepatitis B surface antibody level LDL Cholesterol [facility] Start: 09-06-2024 End: 09-06-2024 ambulatory Hematology/Oncology Comment on above: TRX F/U Misa FASPRO Start: 09-03-2024 End: 09-03-2024 ambulatory 09/03/2024 7:00 AM EST Results Only Teresa Doherty [facility] Laboratory [address] [place] [address] TRX LABS Teresa Doherty [facility] Laboratory Comment on above: TRX LABS Start: 08-26-2024 End: 11-25-2024 Hemoglobin A1c in Blood HEMOGLOBIN A1C Lab Routine Elevated fasting blood sugar Expected: 08/26/2024, Expires: 11/25/2024 [facility] Comment on above: Expected: 08/26/2024, Expires: Start: 08-26-2024 End: 11-25-2024 LIPID PANEL, NONFASTING LIPID PANEL, NONFASTING Lab Routine Mixed hyperglyceridemia Expected: 08/26/2024, Expires: 11/25/2024 [facility] Comment on above: Expected: 08/26/2024, Expires: Start: 08-26-2024 End: 11-25-2024 Thyrotropin [Units/volume] in Serum or Plasma THYROID STIMULATING HORMONE Lab Routine Hypothyroidism, acquired Expected: 08/26/2024, Expires: 11/25/2024 [facility] Work Phone: Comment on above: Expected: 08/26/2024, Expires: Start: 08-22-2024 End: 08-22-2024 Specialty Pharmacy 08/22/2024 7:15 AM EST Specialty Pharmacy [facility] [address] [place], [place] [phone] Pharmacist, Specialty[address] [phone] Refill - Revlimid [28D] - REMS - C2/3 - Send dosing calendar - Send Tracking: [email or web address] - refill req 08/16 [facility] Comment on above: Refill - Revlimid [28D] - REMS - C2/3 - Send dosing calendar - Send Tracking: [email or web address] - refill req 08/16 Start: 08-16-2024 End: 08-16-2024 Specialty Pharmacy 08/16/2024 7:15 AM EST Specialty Pharmacy [facility] [address] [place], [place] [phone] Pharmacist, [facility] [address] [place] [address] [place] [address] Refill - Revlimid [28D] - REMS - C2/3 - Send dosing calendar - Send Tracking: [email or web address] [facility] Comment on above: Refill - Revlimid [28D] - REMS - C2/3 - Send dosing calendar - Send Tracking: [email or web address] Start: 08-09-2024 End: 08-09-2024 ambulatory Hematology/Oncology Comment on above: C, FASPRO TRX F/U Start: 08-09-2024 End: 11-08-2024 Chronic hepatitis differentiation between hepatitis B and C virus panel - Serum or Plasma [facility] Work Phone: Comment on above: Expected: 08/09/2024, Expires: Start: 08-06-2024 End: 08-06-2024 ambulatory 08/06/2024 7:00 AM EST Results Only [facility] [address] [place], [place] [phone] TRX LABS [facility] Comment on above: TRX LABS Start: 08-02-2024 DIABETES SCREEN DIABETES SCREEN [facility] Start: 07-24-2024 Advance Directive Discussion Advance Directive Discussion [facility] Start: 07-23-2024 End: 07-23-2024 Patient encounter procedure 07/23/2024 1:00 PM EST Office Visit Family [facility] [place] [address] [place] [phone] Andrew Stanton APRN.[employer] [address] [place], [place] [phone] Chest X- ray Follow up; Pneumonia [facility] [place] Comment on above: Chest X- ray Follow up; Pneumonia Start: 07-22-2024 End: 07-22-2024 Specialty Pharmacy 07/22/2024 7:30 AM EST Specialty Pharmacy [facility] [facility] [address] [place] [address] Pharmacist, [facility] [address] [place] [address] [place] [address] Refill - Revlimid [28D] - REMS - C1/6 - Send dosing calendar - Send Tracking: [employer] [facility] Comment on above: Refill - Revlimid [28D] - REMS - C1/6 - Send dosing calendar - Send Tracking: [email or web address] Start: 07-12-2024 End: 07-12-2024 ambulatory Hematology/Oncology Comment on above: TRX F/U C, FASPRO Start: 07-09-2024 End: 07-09-2024 ambulatory 07/09/2024 7:00 AM EST Results Only Teresa [facility] [address] [place] [address] TRX LABS [facility] Comment on above: TRX LABS Start: 07-01-2024 End: 07-01-2024 Specialty Pharmacy 07/01/2024 9:00 AM EST Specialty Pharmacy [facility] [address] [place] [address] Pharmacist, [facility] [address] [place] [address] [place] [address] Refill - Revlimid [28D] - REMS - C12/5 - Send dosing calendar - Send Tracking: [employer] - rfl req'd 06/18 [facility] Comment on above: Refill - Revlimid [28D] - REMS - C12/5 - Send dosing calendar - Send Tracking: [employer] - rfl req'd 06/18 Start: 06-25-2024 End: 06-25-2024 Specialty Pharmacy 06/25/2024 7:30 AM EST Specialty Pharmacy [facility] [address] [place] [phone] Pharmacist, [facility]ty[facility] [address] [place] [address] [place] [address] Refill - Revlimid [28D] - REMS - C12/5 - Send dosing calendar - Send Tracking: [employer] - rfl req'd 06/18 [facility] Comment on above: Refill - Revlimid [28D] - REMS - C12/5 - Send dosing calendar - Send Tracking: [employer] - rfl req'd 06/18 Start: 06-19-2024 End: 06-19-2024 Specialty Pharmacy 06/19/2024 9:00 AM EST Specialty Pharmacy [facility] [address] [place] [address] Pharmacist, [facility] [address] [place] [address] [place] [address] Refill - Revlimid [28D] - REMS - C12/5 - Send dosing calendar - Send Tracking: [employer] - [facility] Comment on above: Refill - Revlimid [28D] - REMS - C12/5 - Send dosing calendar - Send Tracking: [employer] - Start: 06-14-2024 End: 06-14-2024 ambulatory Hematology/Oncology Comment on above: TRX F/U C, FASPRO OK to see in Trx per Krathik Start: 06-11-2024 End: 06-11-2024 ambulatory 06/11/2024 7:00 AM EST Results Only [facility] [address] [place] [address] TRX LABS [facility] Comment on above: TRX LABS Start: 05-23-2024 End: 05-23-2024 Specialty Pharmacy 05/23/2024 7:00 AM EDT Specialty Pharmacy [facility] [address] [place] [phone] Pharmacist, [facility] [address] [place] [address] [address] [place], [place] [phone] Refill - Revlimid [28D] - REMS - C11/7 - Send dosing calendar - Send Tracking: [employer] [facility] Comment on above: Refill - Revlimid [28D] - REMS - C11/7 - Send dosing calendar - Send Tracking: [employer] Start: 05-17-2024 End: 05-17-2024 ambulatory Hematology/Oncology Comment on above: C, FASPRO TRX F/U Start: 05-17-2024 End: 05-17-2024 ambulatory Hematology/Oncology Comment on above: TRX F/U C, FASPRO Start: 05-14-2024 End: 05-14-2024 ambulatory 05/14/2024 7:00 AM EDT Results Only [facility] [address] [place] [address] TRX LABS [facility] Comment on above: TRX LABS Start: 05-01-2024 End: 05-01-2024 [facility]ty [facility]acy [facility] Comment on above: Refill - Revlimid [28D] - REMS - C10/10 - Send dosing calendar - Send Tracking: [employer] - refill requested 10/2 messaged Rph and routed message to Rph pool Refill - Revlimid [2 8D] - REMS - C10/10 - Send dosing calendar - Send Tracking: [employer] - refill requested 10/2 messaged Rph and routed message to Rph pool - holding Start: 04-25-2024 End: 04-25-2024 Specialty Pharmacy 04/25/2024 7:15 AM EDT Specialty Pharmacy [facility] [address] [place] [address] [address] [place] [address] Pharmacist, [facility] [address] [place], [place] [phone] Refill - Revlimid [28D] - REMS - C10/10 - Send dosing calendar - Send Tracking: [employer] [facility] Comment on above: Refill - Revlimid [28D] - REMS - C10/10 - Send dosing calendar - Send Tracking: [employer] Start: 04-19-2024 End: 04-19-2024 ambulatory Hematology/Oncology Comment on above: TRX F/U C, FASPRO Start: 04-16-2024 End: 04-16-2024 ambulatory 04/16/2024 7:00 AM EDT Results Only [place] [facility] [address] [place] [address] TRX LABS [place] [facility] Comment on above: TRX LABS Start: 04-04-2024 End: 04-04-2024 Specialty Pharmacy 04/04/2024 9:00 AM EDT Specialty Pharmacy [facility] [address] [place] [address] [address] [place] [address] [facility] [address] [place] [phone] Refill - Revlimid [28D] - REMS - C9/12 - Send dosing calendar - Send Tracking: [employer] --- refill requested 03/29 messaged Rph and rt'd chart to [facility] Comment on above: Refill - Revlimid [28D] - REMS - C9/12 - Send dosing calendar - Send Tracking: [employer] --- refill requested 03/29 messaged Rph and rt'd chart to [facility] pool Start: 03-29-2024 End: 03-29-2024 Specialty Pharmacy [facility] Comment on above: Refill - Revlimid [28D] - REMS - C9/12 - Send dosing calendar - Send Tracking: [employer] Start: 03-24-2024 Covid-19 Vaccine ( season) Covid-19 Vaccine ( season) [facility] Start: 03-24-2024 Covid-19 Vaccine ( season) Covid-19 Vaccine ( season) [facility] Start: 03-24-2024 [facility] Start: 03-22-2024 End: 03-22-2024 ambulatory Hematology/Oncology Comment on above: TRX F/U C, FASPRO Start: 03-20-2024 End: 03-20-2024 Patient encounter procedure 03/20/2024 1:00 PM EDT Office Visit Family Medicine [facility] [address] [place] [address] Hilton Pena MD [address] [place] [address] Medicare Wellness [facility] Comment on above: Medicare Wellness Start: 03-19-2024 End: 06-18-2024 Cobalamin (Vitamin B12) [Mass/volume] in Serum or Plasma VITAMIN B12 BLOOD Lab Routine Medication management Expected: 03/19/2024, Expires: 06/18/2024 [facility] Work Phone: Comment on above: Expected: 03/19/2024, Expires: Start: 03-19-2024 End: 06-18-2024 Comprehensive metabolic 2000 panel - Serum or Plasma COMP METABOLIC PANEL Lab Routine Elevated fasting blood sugar Expected: 03/19/2024, Expires: 06/18/2024 [facility] Work Phone: Comment on above: Expected: 03/19/2024, Expires: Start: 03-19-2024 End: 06-18-2024 Hemoglobin A1c in Blood HGB A1C Lab Routine Elevated fasting blood sugar Expected: 03/19/2024, Expires: 06/18/2024 [facility] Work Phone: Comment on above: Expected: 03/19/2024, Expires: Start: 03-19-2024 End: 06-18-2024 LIPID PANEL, NONFASTING LIPID PANEL, NONFASTING Lab Routine 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 rich plaque Mixed hyperglyceridemia Expected: 03/19/2024, Expires: 06/18/2024 [facility] Work Phone: Comment on above: Expected: 03/19/2024, Expires: Start: 03-19-2024 End: 06-18-2024 Magnesium [Mass/volume] in Serum or Plasma MAGNESIUM BLD Lab Routine Medication management Expected: 03/19/2024, Expires: 06/18/2024 [facility] Work Phone: Comment on above: Expected: 03/19/2024, Expires: Start: 03-19-2024 End: 06-18-2024 Thyrotropin [Units/volume] in Serum or Plasma TSH BLD Lab Routine Hypothyroidism, acquired Expected: 03/19/2024, Expires: 06/18/2024 [facility] Work Phone: Comment on above: Expected: 03/19/2024, Expires: Start: 03-19-2024 End: 03-19-2024 ambulatory 03/19/2024 7:00 AM EDT Results Only [facility] [address] [place] [address] TRX LABS [facility] Comment on above: TRX LABS Start: 03-06-2024 End: 03-06-2024 Patient encounter procedure 03/06/2024 1:20 PM EDT Office Visit [facility] [place] [address] [place] [address] Ruthy Valle PA-C [address] [place], [place] [phone] Medicare Wellness [facility] [place] Comment on above: Medicare Wellness Start: 03-05-2024 End: 03-05-2024 Specialty Pharmacy 03/05/2024 9:00 AM EDT Specialty Pharmacy [facility] [address] [place] [phone] Pharmacist, [facility] [address] [place] [phone] Refill - Revlimid [28D] - REMS - C8/20 - Send dosing calendar - Send Tracking: [email or web address] [facility] Comment on above: Refill - Revlimid [28D] - REMS - C8/20 - Send dosing calendar - Send Tracking: [email or web address] Start: 03-01-2024 End: 03-01-2024 Specialty Pharmacy 03/01/2024 7:15 AM EDT Specialty Pharmacy [facility] [address] [place] [phone] Pharmacist, [facility] [address] [place] [address] [place] [address] Refill - Revlimid [28D] - REMS - C8/20 - Send dosing calendar - Send Tracking: [email or web address] [facility] Comment on above: Refill - Revlimid [28D] - REMS - C8/20 - Send dosing calendar - Send Tracking: [email or web address] Start: 02-23-2024 End: 02-23-2024 ambulatory Hematology/Oncology Comment on above: SIERRA BynumPRO TRX F/U Start: 02-22-2024 End: 05-23-2024 Basic metabolic 2000 panel - Serum or Plasma BASIC METABOLIC PANEL Lab Routine Elevated serum creatinine Expected: 02/22/2024, Expires: 05/23/2024 [facility] Work Phone: Comment on above: Expected: 02/22/2024, Expires: Start: 02-21-2024 End: 02-21-2024 ambulatory Hematology/Oncology Comment on above: SIERRA BynumPRO OKto see in Trx p er Dr. Beatty Start: 02-20-2024 End: 02-20-2024 ambulatory 02/20/2024 7:00 AM EDT Results Only [place] [facility] [address] [place] [address] TRX LABS [facility] Comment on above: TRX LABS Start: 02-16-2024 Hepatitis B surface antibody level LDL CHOLESTEROL [facility] Start: 02-13-2024 End: 02-13-2024 Specialty Pharmacy 02/13/2024 9:00 AM EDT Specialty Pharmacy [facility] [address] [place] [phone] Pharmacist, [facility] [address] [place] [address] [place] [address] Refill - Revlimid [28D] - REMS - C6/25 - Send dosing calendar - Send Tracking: [employer] [facility] Comment on above: Refill - Revlimid [28D] - REMS - C6/25 - Send dosing calendar - Send Tracking: [employer] Start: 02-07-2024 End: 02-07-2024 Specialty Pharmacy 02/07/2024 9:00 AM EDT Specialty Pharmacy [facility] [address] [place] [address] Pharmacist, [facility] [address] [place] [address] [place] [address] Refill - Revlimid [28D] - REMS - C6/25 - Send dosing calendar - Send Tracking: [employer] - refill requested 01/07, Messaged the Rph pool [facility] Comment on above: Refill - Revlimid [28D] - REMS - C6/25 - Send dosing calendar - Send Tracking: [employer] - refill requested 01/07, Messaged the Rph pool Start: 01-26-2024 End: 01-26-2024 ambulatory Hematology/Oncology Comment on above: TRX F/U C, FASPRO Start: 01-23-2024 End: 01-23-2024 ambulatory 01/23/2024 7:00 AM EDT Results Only [place] [facility] [address] [place] [address] TRX LABS [facility] Comment on above: TRX LABS Start: 01-11-2024 End: 01-11-2024 Specialty Pharmacy 01/11/2024 9:00 AM EDT Specialty Pharmacy [facility] [address] [place] [phone] Pharmacist, [facility] [address] [place] [address] [place] [address] Refill - Revlimid [28D] - REMS - C6/25 - Send dosing calendar - Send Tracking: [employer] - refill requested 01/07, Messaged the Rph pool [facility] Comment on above: Refill - Revlimid [28D] - REMS - C6/25 - Send dosing calendar - Send Tracking: [employer] - refill requested 01/07, Messaged the Rph pool Start: 01-09-2024 End: 01-09-2024 Specialty Pharmacy 01/09/2024 9:00 AM EDT Specialty Pharmacy [facility] [address] [place], [place] [id number] [address] Pharmacist, [facility] [address] [place] [address] [address] [place] [place], [place] [phone] Refill - Revlimid [28D] - REMS - C6/25 - Send dosing calendar - Send Tracking: [employer] [facility] Comment on above: Refill - Revlimid [28D] - REMS - C6/25 - Send dosing calendar - Send Tracking: [employer] Start: 12-29-2023 End: 12-29-2023 ambulatory Hematology/Oncology Comment on above: TRX F/U C, FASPRO ZOM/C, FASPRO Start: 12-28-2023 End: 12-28-2023 ambulatory 12/28/2023 7:00 AM EDT Results Only [place] [facility] [address] [place] [address] TRX LABS [facility] Comment on above: TRX LABS Start: 12-26-2023 End: 12-26-2023 ambulatory 12/26/2023 7:00 AM EDT Results Only [place] [facility] [address] [place] [address] TRX LABS [facility] Comment on above: TRX LABS Start: 2023 End: 2023 Specialty Pharmacy 2023 7:00 AM EDT Specialty Pharmacy [facility] [address] [phone] Pharmacist, [facility] [address] [place] [address] [place] [address] Refill - Revlimid [28D] - REMS - C5/28 - Send dosing calendar - Send Tracking: [employer] - rfl req'd 12/10 [facility] Comment on above: Refill - Revlimid [28D] - REMS - C5/28 - Send dosing calendar - Send Tracking: [employer] - rfl req'd 12/10 Start: 12-12-2023 End: 12-12-2023 Specialty Pharmacy 12/12/2023 9:00 AM EDT Specialty Pharmacy [facility] [address] [place] [address] [address] [place] [address] Pharmacist, [facility] [address] [place] [phone] Refill - Revlimid [28D] - REMS - C5/28 - Send dosing calendar - Send Tracking: [employer] - [facility] Comment on above: Refill - Revlimid [28D] - REMS - C5/28 - Send dosing calendar - Send Tracking: [employer] - Start: 12-03-2023 End: 05-04-2024 MONOCLONAL PROTEIN, SERUM (BLOOD) MONOCLONAL PROTEIN, SERUM (BLOOD) Lab Routine Multiple myeloma, remission status unspecified (HCC) Expected: 12/03/2023 (Approximate), Expires: 05/04/2024 [facility] Work Phone: Comment on above: Expected: 12/03/2023 (Approximate), Expi res: 05/04/2024 Start: 12-03-2023 End: 05-04-2024 PROTEIN ELECTROPHORESIS SERUM W/INTERP PROTEIN ELECTROPHORESIS SERUM W/INTERP Lab Routine Multiple myeloma, remission status unspecified (HCC) Expected: 12/03/2023 (Approximate), Expires: 05/04/2024 [facility] Work Phone: Comment on above: Expected: 12/03/2023 (Approximate), Expi res: 05/04/2024 Start: 12-01-2023 End: 12-01-2023 ambulatory Hematology/Oncology Comment on above: C, FASPRO TRX F/U Start: 11-30-2023 End: 02-29-2024 Chronic hepatitis differentiation between hepatitis B and C virus panel - Serum or Plasma HEP REMOTE PANEL BL Lab Routine Multiple myeloma, remission status unspecified (HCC) Expected: 11/30/2023, Expires: 02/29/2024 [facility] Work Phone: Comment on above: Expected: 11/30/2023, Expires: Start: 11-30-2023 End: 11-30-2023 ambulatory 11/30/2023 7:00 AM EDT Results Only [facility] [address] [place] [address] TRX LABS [facility] Comment on above: TRX LABS Start: 11-17-2023 End: 11-17-2023 Specialty Pharmacy 11/17/2023 8:00 AM EDT Specialty Pharmacy [facility] [employer] [facility] [place], [place] [phone] Pharmacist, [facility] [address] [place], [place] [phone] Refill - Revlimid [28D] - REMS - Verify cycle date - Send dosing calendar - Send Tracking: [email or web address] - msg'd and routed to [facility] 11/12 to call [facility] Comment on above: Refill - Revlimid [28D] - REMS - Verify cycle date - Send dosing calendar - Send Tracking: [email or web address] - msg'd and routed to [facility] 11/12 to call Start: 10-09-2023 [facility] Start: 09-08-2023 End: 11-08-2023 Hemoglobin A1c in Blood HGB A1C Lab Routine Elevated fasting blood sugar Expected: 09/08/2023, Expires: 11/08/2023 [facility] Work Phone: Comment on above: Expected: 09/08/2023, Expires: Start: 09-08-2023 End: 11-08-2023 LIPID PANEL, NONFASTING LIPID PANEL, NONFASTING Lab Routine Mixed hyperglyceridemia Expected: 09/08/2023, Expires: 11/08/2023 [facility] Work Phone: Comment on above: Expected: 09/08/2023, Expires: 4 Start: 09-08-2023 End: 11-08-2023 Thyrotropin [Units/volume] in Serum or Plasma TSH BLD Lab Routine Hypothyroidism, acquired Expected: 09/08/2023, Expires: 11/08/2023 [facility] Work Phone: Comment on above: Expected: 09/08/2023, Expires: Start: 08-16-2023 [facility] Start: 08-16-2023 Control nasal hemorrhage anterior simple CONTROL OF NOSEBLEED [facility] Start: 08-04-2023 Covid-19 Vaccine () Covid-19 Vaccine () [facility] Start: 07-24-2023 Advance Directive Discussion Advance Directive Discussion [facility] Start: 07-24-2023 Behavioral Health Screening Behavioral Health Screening [facility] Start: 07-24-2023 Depression Assessment Depression Assessment [facility] Start: 04-30-2023 End: 06-30-2023 CBC W Auto Differential panel - Blood [facility] Work Phone: Comment on above: Expected: 04/30/2023 (Approximate), Expi res: 06/30/2023 Start: 04-30-2023 End: 06-30-2023 Comprehensive metabolic 2000 panel - Serum or Plasma [facility] Work Phone: Comment on above: Expected: 04/30/2023 (Approximate), Expi res: 06/30/2023 Start: 04-30-2023 End: 06-30-2023 NANCY/DANIELITO MCINTOSH,SER [facility] Work Phone: Comment on above: Expected: 04/30/2023 (Approximate), Expi res: 06/30/2023 Start: 04-30-2023 End: 06-30-2023 Lactate dehydrogenase [Enzymatic activity/volume] in Serum or Plasma [facility] Work Phone: Comment on above: Expected: 04/30/2023 (Approximate), Expi res: 06/30/2023 Start: 04-30-2023 End: 06-30-2023 MONOCLONAL PROT UR W/[facility] Work Phone: Comment on above: Expected: 04/30/2023 (Approximate), Expi res: 06/30/2023 Start: 04-30-2023 End: 06-30-2023 MONOCLONAL PROTEIN, SERUM (BLOOD) [facility] Work Phone: Comment on above: Expected: 04/30/2023 (Approximate), Expi res: 06/30/2023 Start: 04-30-2023 End: 06-30-2023 Phosphate [Mass/volume] in Serum or Plasma PHOSPHORUS INORGANIC Lab Routine Oropharyngeal dysphagia Expected: 04/30/2023 (Approximate), Expires: 06/30/2023 [facility] Work Phone: Comment on above: Expected: 04/30/2023 (Approximate), Expi res: 06/30/2023 Start: 04-30-2023 End: 06-30-2023 PROTEIN ELECT RND UR W/[facility] Work Phone: Comment on above: Expected: 04/30/2023 (Approximate), Expi res: 06/30/2023 Start: 04-30-2023 End: 06-30-2023 PROTEIN ELECTROPHORESIS SERUM W/[facility] Work Phone: Comment on above: Expected: 04/30/2023 (Approximate), Expi res: 06/30/2023 Start: 03-24-2023 Covid-19 Vaccine ( season) Covid-19 Vaccine ( season) [facility] Start: 03-24-2023 Influenza vaccination [facility] Start: 03-23-2023 End: 08-26-2023 Comprehensive metabolic 2000 panel - Serum or Plasma COMP METABOLIC PANEL Lab Routine Multiple myeloma, remission status unspecified (HCC) Expected: 03/23/2023 (Approximate), Expires: 08/26/2023 [facility] Work Phone: Comment on above: Expected: 03/23/2023 (Approximate), Expi res: 08/26/2023 Start: 03-23-2023 End: 08-26-2023 MONOCLONAL PROTEIN, SERUM (BLOOD) MONOCLONAL PROTEIN, SERUM (BLOOD) Lab Routine Multiple myeloma, remission status unspecified (HCC) Expected: 03/23/2023 (Approximate), Expires: 08/26/2023 [facility] Work Phone: Comment on above: Expected: 03/23/2023 (Approximate), Expi res: 08/26/2023 Start: 03-23-2023 End: 08-26-2023 PROTEIN ELECTROPHORESIS SERUM W/INTERP PROTEIN ELECTROPHORESIS SERUM W/INTERP Lab Routine Multiple myeloma, remission status unspecified (HCC) Expected: 03/23/2023 (Approximate), Expires: 08/26/2023 [facility] Work Phone: Comment on above: Expected: 03/23/2023 (Approximate), Expi res: 08/26/2023 Start: 02-27-2023 End: 03-25-2024 CT BRAIN WO IVCON CT BRAIN WO IVCON Radiology Routine Chronic subdural hematoma (HCC) Abnormal finding of diagnostic imaging Expected: 02/27/2023 (Approximate), Expires: 03/25/2024 [facility] Work Phone: Comment on above: Expected: 02/27/2023 (Approximate), Expi res: 03/25/2024 Start: 02-25-2023 Urine microalbumin profile DTAP,TDAP,TD (2 - Td or Tdap) [facility] Comment on above: Postponed from 02/02/2022 (Insurance Cov erage) Start: 02-24-2023 End: 04-26-2023 CBC W Auto Differential panel - Blood CBC + DIFF Lab Routine Hypothyroidism, acquired Medication management Expected: 02/24/2023, Expires: 04/26/2023 [facility] Work Phone: Comment on above: Expected: 02/24/2023, Expires: Start: 02-24-2023 End: 04-26-2023 Cobalamin (Vitamin B12) [Mass/volume] in Serum or Plasma VITAMIN B12 BLOOD Lab Routine GERD without esophagitis Medication management Expected: 02/24/2023, Expires: 04/26/2023 [facility] Work Phone: Comment on above: Expected: 02/24/2023, Expires: Start: 02-24-2023 End: 04-26-2023 Comprehensive metabolic 2000 panel - Serum or Plasma COMP METABOLIC PANEL Lab Routine Mixed hyperglyceridemia Elevated fasting blood sugar Expected: 02/24/2023, Expires: 04/26/2023 [facility] Work Phone: Comment on above: Expected: 02/24/2023, Expires: Start: 02-24-2023 End: 04-26-2023 Hemoglobin A1c in Blood HGB A1C Lab Routine Elevated fasting blood sugar Expected: 02/24/2023, Expires: 04/26/2023 [facility] Work Phone: Comment on above: Expected: 02/24/2023, Expires: Start: 02-24-2023 End: 04-26-2023 LIPID PANEL, NONFASTING LIPID PANEL, NONFASTING Lab Routine Mixed hyperglyceridemia Expected: 02/24/2023, Expires: 04/26/2023 [facility] Work Phone: Comment on above: Expected: 02/24/2023, Expires: Start: 02-24-2023 End: 04-26-2023 Magnesium [Mass/volume] in Serum or Plasma MAGNESIUM BLD Lab Routine GERD without esophagitis Medication management Expected: 02/24/2023, Expires: 04/26/2023 [facility] Work Phone: Comment on above: Expected: 02/24/2023, Expires: Start: 02-24-2023 End: 04-26-2023 Thyrotropin [Units/volume] in Serum or Plasma TSH BLD Lab Routine Hypothyroidism, acquired Expected: 02/24/2023, Expires: 04/26/2023 [facility] Work Phone: Comment on above: Expected: 02/24/2023, Expires: Start: 02-24-2023 End: 04-26-2023 Urinalysis complete panel - Urine URINALYSIS, WITH MICROSCOPIC Lab Routine Mixed hyperglyceridemia Expected: 02/24/2023, Expires: 04/26/2023 [facility] Work Phone: Comment on above: Expected: 02/24/2023, Expires: Start: 02-11-2023 Hepatitis B surface antibody level LDL CHOLESTEROL [facility] Start: 01-17-2023 End: 03-19-2023 PROTEIN ELECT RND UR W/INTERP [facility] Work Phone: Comment on above: Expected: 01/17/2023, Expires: Start: 10-11-2022 COVID-19 VACCINE (6 - Moderna series) COVID-19 VACCINE (6 - Moderna series) [facility] Start: 08-12-2022 End: 10-12-2022 CBC W Auto Differential panel - Blood CBC + DIFF Lab Routine Thrombocytopenia (HCC) Expected: 08/12/2022, Expires: 10/12/2022 [facility] Work Phone: Comment on above: Expected: 08/12/2022, Expires: 3 Start: 08-12-2022 End: 10-12-2022 Cobalamin (Vitamin B12) [Mass/volume] in Serum or Plasma VITAMIN B12 BLOOD Lab Routine Low serum vitamin B12 Expected: 08/12/2022, Expires: 10/12/2022 [facility] Work Phone: Comment on above: Expected: 08/12/2022, Expires: 3 Start: 08-12-2022 End: 10-12-2022 Hemoglobin A1c in Blood HGB A1C Lab Routine Elevated fasting blood sugar Expected: 08/12/2022, Expires: 10/12/2022 [facility] Work Phone: Comment on above: Expected: 08/12/2022, Expires: 3 Start: 08-12-2022 End: 10-12-2022 Thyrotropin [Units/volume] in Serum or Plasma TSH BLD Lab Routine Hypothyroidism, acquired Expected: 08/12/2022, Expires: 10/12/2022 [facility] Work Phone: Comment on above: Expected: 08/12/2022, Expires: 3 Start: 08-08-2022 COVID-19 VACCINE (6 - Moderna risk series) COVID-19 VACCINE (6 - Moderna risk series) [facility] Start: 08-02-2022 Hepatitis B surface antibody level LDL CHOLESTEROL [facility] Start: 07-24-2022 ADVANCE DIRECTIVE DISCUSSION ADVANCE DIRECTIVE DISCUSSION [facility] Start: 07-24-2022 DEPRESSION ASSESSMENT DEPRESSION ASSESSMENT [facility] Start: 03-24-2022 Influenza vaccination INFLUENZA (#1) [facility] Start: 02-04-2022 COVID-19 VACCINE (5 - Booster for Moderna series) COVID-19 VACCINE (5 - Booster for Moderna series) [facility] Start: 02-02-2022 Urine microalbumin profile DTAP,TDAP,TD (2 - Td or Tdap) [facility] Start: 10-25-2021 End: 10-25-2021 Colonoscopy flx dx w/collj spec when pfrmd COLONOSCOPY DIAGNOSTIC CHANGE IN BOWEL HABITS 10/25/2021 8:03 AM EDT [facility] Start: 09-17-2021 COVID-19 VACCINE (4 - Booster for Moderna series) COVID-19 VACCINE (4 - Booster for Moderna series) [facility] Start: 07-24-2021 ADVANCE DIRECTIVE DISCUSSION ADVANCE DIRECTIVE DISCUSSION [facility] Start: 07-24-2021 DEPRESSION ASSESSMENT DEPRESSION ASSESSMENT [facility] Start: 02-07-2020 Lipid panel Lipid screen [facility] Start: 02-07-2020 Thyroid stimulating hormone measurement TSH testing [facility] Start: 1997 RSV Vaccine (1 - 1-dose 60+ series) RSV Vaccine (1 - 1-dose 60+ series) [facility] Start: [birth year]15-1953 Anxiety Screening Anxiety Screening [facility] Start: [birth year]-15-1953 Depression Screening Depression Screening [facility] Start: 1949 Depression Screen Depression Screen [facility] Start: 1946 Screening for malignant neoplasm of cervix Cervical Cancer Screening [facility] Biopsy bone trocar/n eedle superficial IMAGING GUIDED BIOPSY RIB/BONY PELVIS/STERNUM/SPINOUS PROCESS Radiology Routine Pathological fracture of left clavicle, initial encounter Abnormal findings on diagnostic imaging of other specified body structures Ordered: 01/17/2023 [facility] Work Phone: Comment on above: Ordered: 01/17/2023 End: 02-23-2024 CBC W Auto Differential panel - Blood CBC + DIFF Lab Routine Multiple myeloma, remission status unspecified (HCC) Once per week for 12 Occurrences starting 02/23/2023 until 02/23/2024 [facility] Work Phone: Comment on above: Once per week for 12 Occurrences startin g 02/23/2023 until 02/23/2024 End: 03-16-2024 CBC W Auto Differential panel - Blood [facility] Work Phone: Comment on above: Once per week for 52 Occurrences startin g 03/17/2023 until 03/16/2024 Once per month for 1 2 Occurrences starting 03/17/2023 until 03/16/2024 End: 03-22-2025 CBC W Auto Differential panel - Blood COMPLETE BLOOD COUNT AND DIFFERENTIAL Lab Routine Multiple myeloma, remission status unspecified (HCC) Once per month for 6 Occurrences starting 03/22/2024 until 03/22/2025, 1 completed [facility] Work Phone: Comment on above: Once per month for 6 Occurrences startin g 03/22/2024 until 03/22/2025, 1 completed End: 09-02-2025 CBC W Auto Differential panel - Blood COMPLETE BLOOD COUNT AND DIFFERENTIAL Lab Routine Multiple myeloma, remission status unspecified (HCC) Once per month for 12 Occurrences starting 09/02/2024 until 09/02/2025, 1 completed [facility] Work Phone: Comment on above: Once per month for 12 Occurrences starti ng 09/02/2024 until 09/02/2025, 1 completed End: 03-16-2024 Comprehensive metabolic 2000 panel - Serum or Plasma COMP METABOLIC PANEL Lab Routine Multiple myeloma, remission status unspecified (HCC) Once per month for 12 Occurrences starting 03/17/2023 until 03/16/2024 [facility] Work Phone: Comment on above: Once per month for 12 Occurrences starti ng 03/17/2023 until 03/16/2024 End: 12-26-2024 Comprehensive metabolic 2000 panel - Serum or Plasma COMPREHENSIVE METABOLIC PANEL Lab Routine Multiple myeloma, remission status unspecified (HCC) Once per month for 12 Occurrences starting 12/27/2023 until 12/26/2024 [facility] Work Phone: Comment on above: Once per month for 12 Occurrences starti ng 12/27/2023 until 12/26/2024 End: 09-06-2025 Comprehensive metabolic 2000 panel - Serum or Plasma COMPREHENSIVE METABOLIC PANEL Lab Routine Multiple myeloma in remission (HCC) Once per month for 11 Occurrences starting 09/06/2024 until 09/06/2025 [facility] Work Phone: Comment on above: Once per month for 11 Occurrences starti ng 09/06/2024 until 09/06/2025 End: 02-16-2024 Ct abdomen & pelvis w/contrast material CT ABD/PEL W IVCON Radiology Routine Pathological fracture of left clavicle, initial encounter 1 Occurrences starting 01/17/2023 until 02/16/2024 [facility] Work Phone: Comment on above: 1 Occurrences starting 01/17/2023 until 02/16/2024 End: 01-23-2023 Ct abdomen & pelvis w/contrast material [facility] Work Phone: Comment on above: 1 Occurrences starting 01/23/2023 until 01/23/2023 End: 02-16-2024 CT CHEST W IVCON CT CHEST W IVCON Radiology Routine Pathological fracture of left clavicle, initial encounter 1 Occurrences starting 01/17/2023 until 02/16/2024 [facility] Work Phone: Comment on above: 1 Occurrences starting 01/17/2023 until 02/16/2024 End: 01-23-2023 CT CHEST W IVCON [facility] Work Phone: Comment on above: 1 Occurrences starting 01/23/2023 until 01/23/2023 CT WHOLE BODY SKULL TO KNEE WO IVCON CT WHOLE BODY SKULL TO KNEE WO IVCON Radiology Routine Multiple myeloma not having achieved remission (HCC) 02/11/2023 11:12 AM EDT [facility] Work Phone: Hepatitis C virus Ab [Presence] in Serum HEPATITIS C ANTIBODY IA WITH CONFIRMATION Lab Routine Multiple myeloma not having achieved remission (HCC) 08/09/2024 2:39 PM EST [facility] End: 03-16-2024 MONOCLONAL PROTEIN, SERUM (BLOOD) MONOCLONAL PROTEIN, SERUM (BLOOD) Lab Routine Multiple myeloma, remission status unspecified (HCC) Once per month for 12 Occurrences starting 03/17/2023 until 03/16/2024 [facility] Work Phone: Comment on above: Once per month for 12 Occurrences starti ng 03/17/2023 until 03/16/2024 End: 12-26-2024 MONOCLONAL PROTEIN, SERUM (BLOOD) MONOCLONAL PROTEIN, SERUM (BLOOD) Lab Routine Multiple myeloma, remission status unspecified (HCC) Once per month for 12 Occurrences starting 12/27/2023 until 12/26/2024 [facility] Comment on above: Once per month for 12 Occurrences starti ng 12/27/2023 until 12/26/2024 End: 09-06-2025 MONOCLONAL PROTEIN, SERUM (BLOOD) MONOCLONAL PROTEIN, SERUM (BLOOD) Lab Routine Multiple myeloma in remission (HCC) Once per month for 11 Occurrences starting 09/06/2024 until 09/06/2025 [facility] Comment on above: Once per month for 11 Occurrences starti ng 09/06/2024 until 09/06/2025 End: 02-22-2026 MR Hip - right WO contrast MRI HIP WO IVCON RIGHT Radiology Routine Pain of right hip 1 Occurrences starting 01/23/2025 until 02/22/2026 [facility] Comment on above: 1 Occurrences starting 01/23/2025 until 02/22/2026 Patient Education [facility] Work Phone: Patient referral [facility] Work Phone: End: 03-16-2024 PROTEIN ELECTROPHORESIS SERUM W/INTERP PROTEIN ELECTROPHORESIS SERUM W/INTERP Lab Routine Multiple myeloma, remission status unspecified (HCC) Once per month for 12 Occurrences starting 03/17/2023 until 03/16/2024 [facility] Work Phone: Comment on above: Once per month for 12 Occurrences starti ng 03/17/2023 until 03/16/2024 End: 12-26-2024 PROTEIN ELECTROPHORESIS SERUM W/INTERP PROTEIN ELECTROPHORESIS SERUM W/INTERP Lab Routine Multiple myeloma, remission status unspecified (HCC) Once per month for 12 Occurrences starting 12/27/2023 until 12/26/2024 [facility] Comment on above: Once per month for 12 Occurrences starti ng 12/27/2023 until 12/26/2024 End: 09-06-2025 PROTEIN ELECTROPHORESIS SERUM W/INTERP PROTEIN ELECTROPHORESIS SERUM W/INTERP Lab Routine Multiple myeloma in remission (HCC) Once per month for 11 Occurrences starting 09/06/2024 until 09/06/2025 [facility] Comment on above: Once per month for 11 Occurrences starti ng 09/06/2024 until 09/06/2025 SARS-CoV-2 (COVID-19 ) RNA [Presence] in Respiratory specimen by TERI with probe detection 2019 CORONAVIRUS Microbiology Routine Suspected COVID-19 virus infection Ordered: 03/17/2022 [facility] Work Phone: Comment on above: Ordered: 03/17/2022 SURGICAL PATHOLOGY SURGICAL PATH OLOGY Lab Routine Pathological fracture of left clavicle, initial encounter Abnormal findings on diagnostic imaging of other specified body structures Ordered: 01/17/2023 [facility] Work Phone: Comment on above: Ordered: 01/17/2023 US Lower extremity v ein - right US DVT LOWER RIGHT Radiology Routine Right leg swelling Multiple myeloma in remission (HCC) 01/27/2025 5:37 PM EDT [facility] Work Phone: XR Chest PA and Lateral XR CHEST 2V FRONTAL/LAT Radiology Routine Pneumonia of right lower lobe due to infectious organism 07/13/2024 9:45 AM EST [facility] Work Phone: End: 08-23-2025 XR Chest PA and Lateral XR CHEST 2V FRONTAL/LAT Radiology Routine Pneumonia of right lower lobe due to infectious organism 1 Occurrences starting 07/23/2024 until 08/23/2025 [facility] Work Phone: Comment on above: 1 Occurrences starting 07/23/2024 until 08/23/2025 [facility] Immunizations Immunization Date Immunization Notes Care Provider Rasheed gilbert 04-23-2024 influenza virus vacc ine, unspecified formulation Chair 4 Work Phone: [facility] 08-07-2023 respiratory syncytia l virus (RSV) vaccine, adjuvanted (AREXVY) Jaime Beatty MD Work Phone: [facility] Work Phone: 05-07-2023 influenza (HD-IIV4) vaccine, age 65+ yr, high dose, quadrivalent, PF (FLUZONE HIGH-DOSE) Ruthy Valle PA-C Work Phone: [facility] 05-07-2023 influenza virus vacc ine, unspecified formulation Chair 4 Work Phone: [facility] 04-26-2022 influenza, high dose seasonal, preservative-free Hilton Pena MD Work Phone: [facility] Work Phone: 04-26-2022 influenza virus vacc ine, unspecified formulation Jaime Beatty MD Work Phone: [facility] 08-20-2021 tetanus toxoid, redu leah diphtheria toxoid, and acellular pertussis vaccine, adsorbed Chair East Work Phone: [facility] 05-17-2021 COVID-19 vaccine, fu ll dose (MODERNA) Hilton Pena MD Work Phone: [facility] 04-08-2021 influenza, high dose seasonal, preservative-free Hilton Pena MD Work Phone: [facility] 03-30-2021 influenza virus vacc ine, unspecified formulation Hilton Pena MD Work Phone: [facility] 09-10-2020 COVID-19 vaccine, fu ll dose (MODERNA) Hilton Pena MD Work Phone: [facility] Work Phone: 08-13-2020 COVID-19 vaccine, fu ll dose (MODERNA) Hilton Pena MD Work Phone: [facility] 04-08-2020 influenza, high dose seasonal, preservative-free Hilton Pena MD Work Phone: [facility] 04-08-2020 influenza, high-dose , quadrivalent vaccine (FLUZONE HIGH DOSE QUADRIVALENT) Hilton Pena MD Work Phone: [facility] 05-01-2019 influenza, high dose seasonal, preservative-free Hilton Pena MD Work Phone: [facility] 03-29-2019 pneumococcal polysaccharide vaccine, 23 valent Hilton Pena MD Work Phone: [facility] 06-01-2018 zoster vaccine sam Simmons MD Work Phone: [facility] Work Phone: 04-18-2018 influenza, high dose seasonal, preservative-free Jenn Simmons MD Work Phone: [employer] 02-26-2018 zoster vaccine recombinant Jenn Simmons MD Work Phone: [facility] Work Phone: 04-21-2017 influenza, high dose seasonal, preservative-free Jenn Simmons MD Work Phone: [facility] Work Phone: 04-25-2016 influenza, high dose seasonal, preservative-free Jenn Simmons MD Work Phone: [facility] 08-10-2015 pneumococcal conjuga te vaccine, 13 valent Jenn Simmons MD Work Phone: [facility] Work Phone: 02-03-2012 tetanus toxoid, redu leah diphtheria toxoid, and acellular pertussis vaccine, adsorbed Jenn Simmons MD Work Phone: [facility] Work Phone: 05-17-2010 zoster vaccine, live Jenn Simmons MD Work Phone: [facility] Work Phone: 12-22-2009 zoster vaccine, live Jenn Simmons MD Work Phone: [employer] 06-27-2008 pneumococcal polysaccharide vaccine, 23 valent Jenn Simmons MD Work Phone: [facility] Work Phone: 06-30-2003 pneumococcal polysaccharide vaccine, 23 valent Jenn Simmons MD Work Phone: [facility] Work Phone: 04-23-2003 TD(adult) unspecifie d formulation [facility] Work Phone: [facility] 04-23-2003 Td, unspecified formulation Jenn Simmons MD Work Phone: [employer] Work Phone: 09-05-2001 varicella virus vaccine Hilaria Simmons MD Work Phone: [facility] Work Phone: 06-25-2001 varicella virus vaccine Hilaria Simmons MD Work Phone: [employer] Work Phone: Payers Date Payer Category Payer Self-pay [id number] 2020 Private Health Insurance GPM LIF E [id number] 2020 Unknown [id number] 2020 Unknown [id number] 2019 Unknown GPM LIFE GPM LIF E SUPPLEMENT [id number] 2019-Present [phone] [address] [place] [address] Indemnity [id number] 2014 Unknown [id number] 2002 Medicare MEDICARE MEDICAR E A AND B [id number] 2002-Present [phone] [place] [address] Medicare [id number] 2002 Medicare [id number] 2002 Medicare [id number] 2000 Unknown [id number] 1937 Unknown [id number] 1937 Unknown [id number] 1937 Unknown [id number] Unknown [id number] Unknown [id number] Unknown [id number] Unknown [id number] Unknown [id number] Unknown [id number] Unknown [id number] Social History Date Type Detail Facility Start: 09-18-2010 End: 03-17-2022 Tobacco smoking status PAIS Never smoked tobacco [facility] Phone: Start: 09-18-2010 End: 03-17-2022 Tobacco use and exposure Smokeless tobacco non-user [facility] Phone: Start: 10-25-2021 Alcohol intake Current non-dr under baster of alcohol (finding) [facility] Phone: Start: 10-25-2021 End: 12-29-2022 Alcohol intake [facility] Work Phone: Start: 1935 Sex Assigned At Not on file [facility] [employer] Work Phone: Start: 10-15-2021 End: 03-24-2022 Exposure to SARS-CoV-2 (event) Not sure [facility] [employer] Start: 09-14-2021 End: 03-13-2025 Alcohol intake Ex-drinker (finding) [facility] Start: 12-29-2022 End: 02-10-2023 Tobacco use panel [facility] Work Phone: Start: 01-07-2019 Adult Depression Screening Assessment 0 [facility] Work Phone: Start: 08-16-2023 End: 10-09-2023 Tobacco smoking status NHIS Unknown if ever smoked [facility] Start: 1935 Sex Assigned At Female W [facility] Start: 11-26-2024 Sex Female (finding) [facility] How often to you hav e a drink containing alcohol? Never [facility] Functional Status Date Assessment Result Facility 03-11-2025 Total score [AUDIT-C] 0 03/11/20 25 11:46 AM EDT Meagan Mon MA [facility] Clinical Notes 10-25-2021 to 05-27-2025 Darell Chu, [facility] - 03/31/2025 10:20 AM Darell De La Torre, [facility] - 03/31/2025 10:20 AM Alvin Tavarez APRN.[employer] [facility] - 03/21/2025 1:00 PM Anika Miranda LPN - 03/21/2025 12:07 PM EDT Note Date & Type Note Facility 05-27-2025 Note [facility] 05-27-2025 Note [facility] 05-15-2025 Note [facility] 05-15-2025 Note [facility] 04-28-2025 Note [facility] 04-28-2025 Note [facility] 04-18-2025 Note [facility] 03-31-2025 History of Present illness Narrative [facility] Refill Assessment Medication(s): Revlimid (BRAND) Reviewed Heme/Onc OV note on 03/21, currently managed with daratumumab and Revlimid, presents for follow-up -Recent lab results from 03/17 - stable -cont andra rev Reviewed 03/17 labs, stable K/L Ratio Labs within 120 days: K/L Ratio, Serum Date Value Ref Range Status 03/17/2025 0.89 0.26 - 1.65 Final 02/17/2025 0.76 0.26 - 1.65 Final M-Protein Labs within 120 days: M-Protein Concentration Date Value Ref Range Status 03/17/2025 0.00 <=0.00 g/dL Final 02/17/2025 0.23 (H) <=0.00 g/dL Final Last 1 Encounter BP Readings: Date: BP: 03/21/2025 157/62 TSH Date Value Ref Range Status 02/17/2025 1.760 0.270 - 4.200 mIU/L Final Next clinic visit scheduled ALLERGIES Allergen Reactions Sulfa (Sulfonamide * Swelling Adhesive Tape-Silic* Rash Revlimid cycles (28DS: 21 on / 7 off) are as follows: C1D1 03/13/23 C16D1 05/02/24 - delayed d/t covid, approved by Tx team to resume C17D1 05/30/24 C18D1 07/01/24- delayed d/t infection/antibiotics x10d C19D1 07/29/24 C20D1 08/26/24 C21D1 09/23/24 C22D1 10/21/24 C23D1 11/18/24 C24D1 12/16/24 C25D1 01/13/25 C26D1 02/10/25 C27D1 03/10/25 C28D1 04/07/25 C29D1 05/05/25 REMS note: Pt's last survey was completed on 01/06/25. Next survey will be available on or after 06/16/25. Patient's current medication list and adherence status to current therapy were reviewed by Specialty [facility]acy clinical pharmacist to identify any new drug interactions or non-compliance to therapy. Therapy continues to be appropriate for disease, patient response, and medical condition. Verification of therapeutic benefit and effectiveness with current therapy was completed. Adverse events, barriers in adherence, and side effects were assessed and addressed if applicable. Will proceed with refill with no changes in therapy - patient progressing towards achieving therapeutic goals based on medication-specific laboratory parameters, disease state markers and outcomes. Office/provider notes have been reviewed prior to dispensing the medication. Darell Chu, PatD Clinical Pharmacist, Oncology [facility] P: ; F: Pool: P [facility] Pool #: [id number] Current Outpatient Medications on File Prior to Visit Medication Sig REVLIMID 10 mg capsule Take 1 capsule (10 MG) by mouth daily at bedtime for 21 days on and 7 days off. levothyroxine (SYNTHROID) 50 mcg tablet Take 1 tablet by mouth once daily. Take on empty stomach. For Thyroid. omeprazole (PRILOSEC) 40 mg capsule Take 1 capsule by mouth daily before breakfast. 1/2 hr before meal. pravastatin (PRAVACHOL) 80 mg tablet Take 1 tablet by mouth once daily. acyclovir (ZOVIRAX) 400 mg tablet Take 1 tablet by mouth once daily. ondansetron (ZOFRAN) 8 mg tablet Take 1 tablet by mouth once daily as needed for nausea/vomiting. cyanocobalamin (VITAMIN B-12) 500 mcg tablet Take 1 tablet by mouth once daily. FERROUS SULFATE ORAL Take 1 tablet by mouth. aspirin, enteric coated (ASPIRIN, ENTERIC COATED) 81 mg EC tablet Take 81 mg by mouth. omega-3 acid ethyl esters (LOVAZA) 1 gram capsule Take 1 g by mouth. calcium carbonate-vitamin D3 (CALTRATE WITH VITAMIN D3) 600 mg(1,500mg) -800 unit tab Take 1 tablet by mouth twice daily. No current facility-administered medications on file prior to visit. [facility] SPECIALTY CLINICAL ASSESSMENT - HEMATOLOGY ONCOLOGY V7 Date of influenza vaccination reminder: 04/01/2024 Date of most recent vaccination assessment: 04/01/2024 Treatment Plan Information: Diagnosis: Multiple myeloma - newly diagnosed Previous treatment(s): none, newly diagnosed Treatment plan: Revlimid (lenalidomide) + daratumumab + dexamethasone Starting Dose/Titration: Take 1 capsule (10mg) by mouth daily at bedtime for 21 days on, 7 days off. - Renal dose reduction required?: yes - CrCl 47mL/min, usual dose 25mg: PI recommends DR to 10mg daily, may increase to 15mg after 2 cycles if tolerating; dose reduced to 10 mg. Administration: - Take with or without food - Take at the same time each day with water; swallow whole Warnings: include but are not limited to - CONGRESSIONAL AIDE effects (dizziness, fatigue) - Tumor Flare, TLS - Venous and arterial thromboembolism (DVT, PE, TN, stroke) - BBW - Hematologic toxicity (neutropenia and thrombocytopenia) - BBW - Embryo- toxicity - BBW - No blood (or semen) donations during and 4 weeks post discontinuation Adverse reactions: include but are not limited to - Hepatotoxicity - Peripheral edema - Derm rxns (pruritis, skin rash, xeroderma) - Diarrhea > constipation; decrease appetite, abdominal pain - N/V (min to low) - BMS (neutropenia, thrombocytopenia, anemia) - Fatigue, asthenia, arthralgia, headache; back pain, muscle cramps/spasms Monitoring: - CBC with diff (MCL - weekly C1, Q2 weeks C2-4, then monthly; MDS - weekly x8 weeks, then at least monthly; MM - weekly x2 cycles; Q2 weeks C3, then monthly; Follicular and marginal zone lymphoma - weekly x3 weeks, Q2 weeks C2-4, then monthly) - sCr, LFTs (periodically) - TSH (baseline, then every 2-3 months) - ECG when clinically indicated - S/S infection, bruising, bleeding, hepatoxocity, 2ndry malignancy, thromboembolism, derm toxicity, TLS - test (for females of reproductive potential) - Hep B screening Drug-Drug Interactions: no interactions identified by Jennifer Baseline: - CBCD 02/22/23 - TSH 1.680 on 02/15/23 - CrCl 47mL/min on 02/22/23 - Hep B screening 02/23/23 Est. Tx Plan Start Date: No information available Estimated Start Date Info: Per Dr. Voss's discretion MDO to confirm DR for current CrCl - dose adjusted to 10 mg daily. Est. Estimated Treatment Duration: Continue until disease progression or unacceptable toxicity. Darell Chu RPh [facility] RX SPECIALTY CLINICAL ASSESSMENT - CELGENE REMS HEADER V4 Patient is not a female of reproductive potential Lenalidomide - Patient Not of Reproductive Potential V3 All boxes and spaces must be marked or filled in during counseling with the patient for every prescription. Darell Chu RPh 10:29 AM March 31, 2025 documented in this encounter [facility] 03-31-2025 Note [facility] 03-31-2025 Note [facility] 03-21-2025 History of Present illness Narrative Images from the original note were not included. [facility] Plasma Cell Disorder Clinic (Elements copied from my note dated 02/21/25, have been reviewed and updated where appropriate, and all reflect current assessment and medical decision making during today's encounter, March 21, 2025) Reason for visit: follow up myeloma. Recording using [employer] software for draft documentation of the visit was discussed with the patient/authorized outreach representative; all questions welcomed and answered. Patient/authorized outreach representative agreed to proceed. Draft document reviewed and edited by me as needed. Baseline assessment on initial diagnosis date 2022 Cancer Staging No matching staging information was found for the patient. Symptomatic multiple myeloma, I Related Organ or Tissue Involvement (CRAB) or other Myeloma Defining Event (MDE): Bone disease: At least one lytic bone lesion on XR or CT if BMPC >=10%, at least 2 bone lesions on XR or CT if BMPC<10%, location of lytic lesion(s): Left clavicular head Antecedent plasma cell dyscrasia: No Myeloma FISH panel: Trisomy 15, trisomy 11 Cytogenetics: 46, XX LDH: 175 ISS stage: ISS Stage II Monoclonal proteins at diagnosis: Serum M-spike: 1.19 gm/dL, Involved serum free light chains: 35.2 mg/L, and Uninvolved serum free light chains: 10.4 mg/L Total immunoglobulins at diagnosis: IgG = 1980 mg/dl, IgA = 58 mg/dl, IgM = 38 mg/dl Bone marrow plasma cell infiltration: 10-15% plasma cells in the marrow Systemic treatment and disease course Start 02/23/2023-current Daratumumab, lenalidomide (per AGNES) - Myeloma response according to: International uniform response criteria, Durie et al. Leukemia 20: 1467-73, 2006 and Lew et al. ERRATUM in Leukemia 21:1134, 2007. Update in Debra SV et al. Blood 117: 3208-4153, 2011 Local treatments (radiation, surgery, kyphoplasty) 03/02/2023 to 03/08/2023 The Left clavicle received a total dose of 2000 cGy in 5 fractions at 400 cGy/fraction using 6 MV photons with Wedged Pair technique. History of present illness Mrs. Dickinson is an 87-year-old female with past medical history that includes hypothyroidism, GERD, hyperlipidemia, prediabetes, and possible coronary artery disease who was initially evaluated for left mid clavicular pain and swelling at an urgent care facility on 12/26/2022. A 2 view x-ray of the clavicle obtained on that occasion did not reveal evidence of an osseous abnormality. Of note, the patient did not experience antecedent trauma to the clavicle prior to that visit. He was initiated on Medrol Dosepak at the time of discharge. Follow-up MRI of the clavicle on 12/29/2022 demonstrated mild expansion and irregular cortical bone in the medial left clavicle. A bone scintigraphy study on 01/05/2023 demonstrated increased uptake in the left sternoclavicular joint medial clavicle, and a CT of the left clavicle and shoulder on 01/11/2023 demonstrated a permeative lytic lesion with a pathologic fracture of the left medial clavicle. The patient was evaluated in our orthopedic oncology clinic on 01/17/2023. CT scans of the chest abdomen and pelvis did not demonstrate any other evidence of overt osseous disease but did demonstrate hepatic hypodensities for which an MRI of the liver was suggested. An image guided biopsy left clavicle was performed demonstrated sheets of plasma cells. Currently paraprotein work-up prior to the current visit is a serum protein electrophoresis demonstrating a monoclonal spike of 1.19 mg/dL and a spot urine protein electrophoresis that does demonstrate a monoclonal paraprotein. The patient has no evidence of underlying bone marrow involvement in terms of her CBC which is entirely normal. There is no evidence of renal dysfunction or hypercalcemia. She denies a personal history of other pathologic fractures. She denies recent fevers, chills, night sweats, nausea, vomiting, diarrhea, voice changes, new rash, or weight loss. She has no personal history of malignancy and no strong family history of thrombophilia, bleeding diathesis, or hematologic cancer. Interim Updates: 03/31/2023: The returns evaluation management of symptomatic myeloma. She denies fevers, chills, night sweat nausea, vomiting, diarrhea, and peripheral neuropathy. She continues on aspirin and acyclovir. Pleated radiation therapy to the left clavicle with no residual pain at the site of the previous fracture. Her paraprotein labs demonstrate normalization of her involved serum free light chain and a decrease in her intact monoclonal paraprotein by approximately 50%. There is no evidence of renal dysfunction or hypercalcemia. Whole body low dose CT scan (see below) demonstrates 1/9 rib lytic lesion in addition to the known clavicular lesion. 05/05/2023: Mrs Dickinson is seen for a scheduled follow up visit. She is accompanied by her . Overall, she reports feeling well. Per her account, she has no pain in the area of her L clavicle. Reports two episodes of mild epistaxis over past month. States she has seen ENT in [place] and was told the recurrent nose bleeds were due to the anatomy of the Right side of her nose. Per patient, she is occasionally constipated and eating prunes usually relieves the constipation. Confirms compliance with Revlimid dosing and schedule. 05/31/23: Mrs. Dickinson is seen for a scheduled follow up visit, accompanied by her . She reports overall feeling well. She woke up this morning with a bruise just to the right of the sternoclavicular junction. She denies fevers, chills, night sweats, nausea, vomiting and diarrhea. She denies new rashes. Her paraprotein labs from last visit demonstrate a preserved free light chain ratio and a fluctuating intact monoclonal paraprotein by protein electrophoresis. 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 Her IgG level has normalized. She has very mild leukopenia and thrombocytopenia. There is no evidence of worsening anemia. There is no evidence of hypercalcemia. Continues on aspirin for thromboprophylaxis and acyclovir for VZV prophylaxis. Performance status is unchanged with the initiation of therapy she notes she is able to complete all of her ADLs and IADLs independently. 07/14/23: Constipation, the patient denies fevers, chills, night sweats, nausea, vomiting, diarrhea, and significant weight changes. 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 Serologically, her immunofixation demonstrates what is likely the presence of daratumumab. Her light chains remain within normal range with a normalized ratio. Her low level intact monoclonal paraprotein may represent daratumumab. She continues to take aspirin and acyclovir as directed. She complains of no new areas of bony pain. 12/01/23: At the present visit, patient denies fevers, chills, night, nausea, vomiting, diarrhea, significantly. She estimates that she wakes at 5 AM every day and is able to work for several hours before becoming tired in the early afternoon. She has not noticed any lymphadenopathy. She has not noticed any early satiety. Paraprotein labs indicate a complete remission. She remains on lenalidomide 10 mg daily day 1 through 21 of a 28-day cycle and monthly daratumumab. We have taken dexamethasone out of her treatment plan. She also receives monthly zoledronic acid. There is no evidence of renal dysfunction, hypercalcemia, or new onset cytopenias. 12/29/23: pt called in last week for brb from rectum. Has known hemorrhoids. Issue subsided without additional interventions. H/h stable. Denies other symptoms. 01/26/24: Mrs. Dickinson returns for follow up. Continues to tolerate treatment well. She tells me she is recommended to have a dental procedure where they will take some tissue from her upper gum and put it into an implant on her lower jaw. She said her dentist wanted clearance from Dr. Beatty and will be sending the information to him to review. She wont be scheduled until she has an ok from our team. I advised her this will need to be reviewed once we have the details of what they are planning. In prep for this we will hold zometa until we know definitely if she will have this done or not. Started revlimid 01/15. 02/21/24: The patient here for follows up and tolerating the treatment well. Her lab workup from 02/19/24 shows an atypical region of restricted mobility on SPEP and no M protein on immunofixation. K/L ratio is also normal. IgG is 630 as well. CBC still shows mild pancytopenia. She denies recent fevers, chills, night sweats, nausea, vomiting, diarrhea, voice changes, new rash, or weight loss. She has an implant of the tooth planned for April 03 2024. Was counseled on keeping an eye out on the fatigue 06/14/24: In the interim since her last visit, the patient continued to receive daratumumab based maintenance. Today is C18D1. Most recent paraprotein labs reveal what is likely a negative immunofixation, completely normal serum free light chains, immune paresis, and essentially normal hemoglobin, and persistent but stable thrombocytopenia and lymphopenia. 08/09/24: The patient denies fevers, chills, night sweats nausea vomiting and new rash. Her diarrhea has improved dramatically since her recent visit. Continues lenalidomide 10 mg days 1-21 of a 28 day cycle aspirin currently. She is receiving once monthly daratumumab. Paraprotein labs indicate a sustained serologic VGPR at minimum and likely a complete remission. 12/25/24: The present time, the patient denies nausea, vomiting, diarrhea,. She notes some right-sided hip pain is worse with activity. She denies radiculopathy. She denies loss of bowel or bladder continence. Paraprotein labs do not demonstrate any evidence of disease progression. There is a mild normocytic anemia that has been persistent and is likely attributable to her treatment. She is in a VGPR at minimum with immunofixation likely reflecting the presence of daratumumab. 01/23/2025: Kayley Dickinson presents today for a scheduled follow up visit for continued evaluation and management of multiple myeloma. She is accompanied by her . She reports worsening leg cramps. Per her account, the cramps seem to occur less on her week off of Revlimid. She states that she also noticed more swelling in her R lower leg and R foot during the past week. Denies pain in RLE. Recurrent R hip pain that the patient correlates with more strenuous activities. Available labs reviewed with patient and her . Outlined a plan to have ultra sound imaging to evaluate RLE for DVT and asked her to call with any worsening or new symptoms. February 21, 2025: [place] to dentist [place]. Its been about three weeks since dental procedure. Still sore but now able to eat. Half way with revlimid. No new pains. No recurrent infections. March 20, 2025: Patient with a history of multiple myeloma, currently managed with daratumumab and Revlimid, presents for follow-up. On approximately 01/31, patient underwent a dental procedure involving bone grafting. She reports that the procedure was more detailed than previous ones and resulted in prolonged soreness. She has a follow-up appointment scheduled for 04/25. She experiences mild soreness when brushing her teeth but is able to eat without difficulty. She also reports a cyst behind her knee, which was evaluated by Dr. Mejia, who recommended compression hose. She notes that the cyst causes mild swelling but no significant issues. Recent lab results from 03/17 show stable kidney function with a creatinine level of 0.83 mg/dL, calcium at 9.3 mg/dL, and liver enzymes and electrolytes within normal limits. Hemoglobin is at 12 g/dL, and platelets are at 120,000/ L, showing a slight increase from previous levels. Absolute neutrophil count is 2.55 x 10^9/L. Albumin is at 4.2 g/dL, indicating adequate nutritional status. Light chains are slightly elevated at 35 mg/L but have been stable. Patient is currently on Revlimid and has 10 doses remaining before her scheduled week off. She denies any new aches or pains, shortness of breath, or chest discomfort. She reports that her leg swelling is mild and managed with compression hose. Review of systems General: No fever , No chills, and No night sweats HEENT: No lumps, no difficulty chewing or swallowing, no enlarging tongue, see HPI. Musculoskeletal: no current pain Hematological: No bleeding or easy bruising. Lymphatic / Immune system: No lymph node enlargement or infection. Cardiovascular: No orthopnea, no dyspnea, no chest pain, no palpitations, RLE swelling Pulmonary: No dyspnea, no wheezing, no cough. Gastrointestinal: see HPI. No nausea, vomitting, diarrhea, constipation, abdominal pain, or blood in stool. PAST MEDICAL HISTORY Diagnosis Date Advance directive discussed with patient 02/25/2022 Discussed 02/2022 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 rich plaque 03/31/2019 Current use of proton pump inhibitor 07/30/2019 Elevated fasting blood sugar 03/29/2019 GERD without esophagitis 03/29/2019 High cholesterol History of 2019 novel coronavirus disease (COVID-19) 09/07/202202/2022 History of squamous cell carcinoma of skin 03/31/2019 Right side of nose Hypothyroidism, acquired 03/29/[address] 02/25/2022 DPA: Micaela () Medicare annual wellness visit, subsequent 08/17/2020 Medical B eligibilty date 11/21/2002 Last done: 02/11/2020 Mixed hyperglyceridemia 03/29/2019 Multiple myeloma (HCC) 02/13/2023 Osteopenia of spine 03/29/2019 PAST SURGICAL HISTORY Procedure Laterality Date CATARACT EXTRACTION HX Bilateral 2017 - eye stents for glaucoma COLONOSCOPY 10/25/2021 repeat only if needed HYSTERECTOMY partial - age 40 MASTECTOMY, SIMPLE, COMPLETE Bilateral 1977 with implants for fibrocystic disease (?) NUCLEAR STRESS TEST (WT<440#) (UNION) 08/09/2013 old records: negative PAST SURGICAL HISTORY OF 1995 breast implants Allergies / intolerances ALLERGIES Allergen Reactions Sulfa (Sulfonamide * Swelling Adhesive Tape-Silic* Rash Medications REVLIMID 10 mg capsule Take 1 capsule (10 MG) by mouth daily at bedtime for 21 days on and 7 days off. levothyroxine (SYNTHROID) 50 mcg tablet Take 1 tablet by mouth once daily. Take on empty stomach. For Thyroid. omeprazole (PRILOSEC) 40 mg capsule Take 1 capsule by mouth daily before breakfast. 1/2 hr before meal. pravastatin (PRAVACHOL) 80 mg tablet Take 1 tablet by mouth once daily. acyclovir (ZOVIRAX) 400 mg tablet Take 1 tablet by mouth once daily. ondansetron (ZOFRAN) 8 mg tablet Take 1 tablet by mouth once daily as needed for nausea/vomiting. cyanocobalamin (VITAMIN B-12) 500 mcg tablet Take 1 tablet by mouth once daily. FERROUS SULFATE ORAL Take 1 tablet by mouth. aspirin, enteric coated (ASPIRIN, ENTERIC COATED) 81 mg EC tablet Take 81 mg by mouth. omega-3 acid ethyl esters (LOVAZA) 1 gram capsule Take 1 g by mouth. calcium carbonate-vitamin D3 (CALTRATE WITH VITAMIN D3) 600 mg(1,500mg) -800 unit tab Take 1 tablet by mouth twice daily. Social History Tobacco Use Smoking status: Never Smokeless tobacco: Never Vaping Use Vaping status: Never Used Substance Use Topics Alcohol use: Not Currently Drug use: Not Currently FAMILY HISTORY Problem Relation Age of Onset Heart Failure Mother Leukemia Father Diabetes Sister Hyperlipidemia Sister Thyroid Sister Hyperlipidemia Sister Breast Cancer Maternal Grandmother Diabetes Daughter Alzheimer's Disease No Family History Colon Cancer No Family History Prostate Cancer No Family History Ovarian cancer No Family History Uterine Cancer No Family History Coronary Artery Disease No Family History Hypertension No Family History Kidney Disease No Family History Seizures No Family History Stroke No Family History Physical examination BP 157/62 Pulse 69 Temp 36.3 C (97.3 F) Resp 12 Wt 51.3 kg (113 lb 1.5 oz) SpO2 98% BMI 21.72 kg/m ECOG PS: 1- Restricted in physically strenuous activity. Carries out light duty. General appearance: Well appearing, alert, in no acute distress, well-hydrated, well nourished. HEENT: No lumps, no macroglossia, no icterus. Mucous membranes pink. Neck: Supple, no adenopathy Heart: rrr Lungs: cta Extremities: No deformities, (+) trace pedal edema RLE, wearing jeovanny hose. Laboratory tests WBC (k/uL) Date Value 03/17/2025 3.94 02/17/2025 3.84 01/20/2025 3.71 12/20/2024 3.01 11/25/2024 3.35 10/28/2024 3.29 10/04/2024 3.45 09/02/2024 3.61 08/05/2024 3.39 07/08/2024 3.61 09/06/2021 6.85 03/15/2021 7.83 02/04/2021 6.15 01/31/2020 5.74 Abs Neut (ANC) (k/uL) Date Value 09/06/2021 4.61 03/15/2021 5.08 02/04/2021 3.89 01/31/2020 3.68 Abs Neut (k/uL) Date Value 03/17/2025 2.55 02/17/2025 2.65 01/20/2025 2.43 12/20/2024 1.59 11/25/2024 2.08 10/28/2024 2.13 10/04/2024 2.09 09/02/2024 2.35 08/05/2024 2.17 07/08/2024 2.46 Hemoglobin (g/dL) Date Value 03/17/2025 12.0 02/17/2025 11.7 01/20/2025 11.9 12/20/2024 11.7 11/25/2024 11.5 10/28/2024 11.8 10/04/2024 11.9 09/02/2024 11.9 08/05/2024 11.1 07/08/2024 10.7 09/06/2021 14.0 03/15/2021 14.0 02/04/2021 13.3 01/31/2020 13.3 Platelet Count (k/uL) Date Value 03/17/2025 120 02/17/2025 118 01/20/2025 116 12/20/2024 114 11/25/2024 102 10/28/2024 99 10/04/2024 84 09/02/2024 106 08/05/2024 112 07/08/2024 142 09/06/2021 157 03/15/2021 173 02/04/2021 148 01/31/2020 168 Glucose (mg/dL) Date Value 03/17/2025 98 02/17/2025 95 01/20/2025 93 12/20/2024 109 11/25/2024 96 10/28/2024 88 10/04/2024 118 09/02/2024 94 08/05/2024 126 07/08/2024 91 02/04/2021 98 01/31/2020 90 Creatinine (mg/dL) Date Value 03/17/2025 0.83 02/17/2025 0.81 01/20/2025 0.87 12/20/2024 0.91 11/25/2024 0.86 10/28/2024 0.91 10/04/2024 0.80 09/02/2024 0.96 08/05/2024 0.91 07/08/2024 0.91 02/04/2021 0.72 01/31/2020 0.70 Calcium (mg/dL) Date Value 02/04/2021 9.1 01/31/2020 9.5 Calcium, Total (mg/dL) Date Value 03/17/2025 9.3 02/17/2025 8.8 01/20/2025 9.0 12/20/2024 9.3 11/25/2024 9.3 10/28/2024 9.6 10/04/2024 8.8 09/02/2024 9.8 08/05/2024 9.4 07/08/2024 9.2 M-Protein Concentration (g/dL) Date Value 03/17/2025 0.00 02/17/2025 0.23 01/20/2025 0.00 12/20/2024 0.00 11/25/2024 0.00 10/28/2024 0.00 10/04/2024 0.00 09/02/2024 0.00 08/05/2024 0.00 07/08/2024 0.00 06/11/2024 0.00 05/14/2024 0.00 04/15/2024 0.00 03/19/2024 0.00 02/19/2024 0.00 01/23/2024 0.16 11/28/2023 0.15 10/31/2023 0.17 10/05/2023 0.19 09/06/2023 0.24 08/09/2023 0.29 07/13/2023 0.31 06/29/2023 0.33 06/14/2023 0.40 05/30/2023 0.39 05/18/2023 0.46 05/04/2023 0.06 04/20/2023 0.13 04/06/2023 0.58 03/29/2023 0.11 03/02/2023 1.20 02/22/2023 1.35 02/15/2023 1.39 01/17/2023 1.19 [place] Free, Serum Date Value 03/17/2025 12.8 mg/L 02/17/2025 10.7 mg/L 01/20/2025 12.4 mg/L 12/20/2024 12.7 mg/L 11/25/2024 13.0 mg/L 10/28/2024 12.3 mg/L 10/04/2024 14.1 mg/L 09/02/2024 16.4 mg/L 08/05/2024 15.8 mg/L 07/08/2024 13.5 mg/L 06/11/2024 15.0 mg/L 05/14/2024 17.0 mg/L 04/15/2024 13.3 mg/L 03/19/2024 17.1 mg/L 02/19/2024 16.0 mg/L 01/23/2024 16.7 mg/L 11/28/2023 17.3 mg/L 10/31/2023 15.6 mg/L 10/05/2023 16.2 mg/L 09/06/2023 15.5 mg/L 08/09/2023 16.0 mg/L 07/13/2023 Comment: Unable to assay. Specimen hemolyzed. Rarely, increased serum free light chains levels may not be detected or accurately quantified due to prozone phenomenon or in high viscosity samples using this immunoturbidimetric assay. Correlation with other laboratory results and clinical findings is recommended. The [place] Free Light Chain was performed using the Binding Site Optilite immunoturbidimetric method. Result obtained with different assay methods or kits cannot be used interchangeably. 06/29/2023 21.2 mg/L 06/14/2023 18.6 mg/L 05/30/2023 21.7 mg/L 05/18/2023 20.8 mg/L 05/04/2023 20.8 mg/L 04/20/2023 17.7 mg/L 04/06/2023 21.9 mg/L 03/29/2023 21.4 mg/L 03/02/2023 21.3 mg/L 02/22/2023 30.5 mg/L 02/15/2023 35.2 mg/L L[place] Free, Serum (mg/L) Date Value 03/17/2025 14.4 02/17/2025 14.0 01/20/2025 14.2 12/20/2024 14.1 11/25/2024 14.2 10/28/2024 15.2 10/04/2024 15.3 09/02/2024 15.7 08/05/2024 18.6 07/08/2024 14.5 06/11/2024 16.3 05/14/2024 17.1 04/15/2024 14.2 03/19/2024 18.2 02/19/2024 19.4 01/23/2024 18.4 11/28/2023 16.8 10/31/2023 15.8 10/05/2023 14.7 09/06/2023 13.9 08/09/2023 13.0 07/13/2023 10.4 06/29/2023 11.5 06/14/2023 9.5 05/30/2023 10.4 05/18/2023 10.1 05/04/2023 10.4 04/20/2023 6.6 04/06/2023 13.0 03/29/2023 13.0 03/02/2023 4.6 02/22/2023 11.1 02/15/2023 10.4 Interpretation (MPA) (no units) Date Value 03/17/2025 There is an atypical restricted band present in the IgG and kappa regions. The location of the IgG kappa band suggests the presence of daratumumab, although one cannot rule out the possibility that this band represents a disease-related monoclonal protein. If clinically required, specific testing for daratumumab may be ordered to confirm the presence of the drug in this patient. Poorly defined region of restricted mobility in the lambda alejandro. Pattern is less well defined or fainter than typically seen in monoclonal gammopathy. This could represent either an atypical presentation of polyclonal immunoglobulins or the presence of a low level lambda containing monoclonal gammopathy. If clinically indicated, urine monoclonal protein analysis and serum free light chain measurements are recommended to evaluate further for monoclonal gammopathy. Clinical correlation is necessary. 02/17/2025 Poorly defined region of restricted mobility in the lambda alejandro. Pattern is less well defined or fainter than typically seen in monoclonal gammopathy. This could represent either an atypical presentation of polyclonal immunoglobulins or the presence of a low level lambda containing monoclonal gammopathy. If clinically indicated, urine monoclonal protein analysis and serum free light chain measurements are recommended to evaluate further for monoclonal gammopathy. Clinical correlation is necessary. There is an atypical restricted band present in the IgG and kappa regions. The location of the IgG kappa band suggests the presence of daratumumab, although one cannot rule out the possibility that this band represents a disease-related monoclonal protein. If clinically required, specific testing for daratumumab may be ordered to confirm the presence of the drug in this patient. 01/20/2025 Poorly defined region of restricted mobility in IgG and kappa lanes. Pattern is less well defined or fainter than typically seen in monoclonal gammopathy. This could represent either an atypical presentation of polyclonal immunoglobulins or the presence of a low level IgG kappa monoclonal gammopathy. If clinically indicated, urine monoclonal protein analysis and serum free light chain measurements are recommended to evaluate further for monoclonal gammopathy. Clinical correlation is necessary. Poorly definded region of restricted mobility in IgG and lambda lanes. Pattern is less well defined or fainter than typically seen in monoclonal gammopathy. This could represent either an atypical presentation of polyclonal immunoglobulins or the presence of a low level IgG lambda monoclonal gammopathy. If clinically indicated, urine monoclonal protein analysis and serum free light chain measurements are recommended to evaluate further for monoclonal gammopathy. Clinical correlation is necessary. 12/20/2024 There is an atypical restricted band present in the IgG and kappa regions. The location of the IgG kappa band suggests the presence of daratumumab, although one cannot rule out the possibility that this band represents a disease-related monoclonal protein. If clinically required, specific testing for daratumumab may be ordered to confirm the presence of the drug in this patient. 11/25/2024 Poorly defined region of restricted mobility in IgG and kappa lanes. Pattern is less well defined or fainter than typically seen in monoclonal gammopathy. This could represent either an atypical presentation of polyclonal immunoglobulins or the presence of a low level IgG kappa monoclonal gammopathy. If clinically indicated, urine monoclonal protein analysis and serum free light chain measurements are recommended to evaluate further for monoclonal gammopathy. Clinical correlation is necessary. Imaging XR BONE SURVEY ROUTINE (Acc#[id number]) (Order [id number]) Kayley Dickinson ([id number]) Female 1935 12/25/2024 12:50 PM - Radiology, [place] IMPRESSION: Findings consistent with multiple myeloma as described DATE OF EXAM: Dec 25 2024 12:25PM PROCEDURE REASON: Multiple myeloma in remission (HCC) COMPARISON: Whole-body CT 02/11/2023 RESULT: Expansile lucent lesion in the left medial clavicle with chronic cortical irregularity is noted. Surrounding sclerosis may reflect posttreatment changes. No lytic lesion in the posterior right ninth rib is poorly appreciated radiographically. No additional lytic lesion or suspicious sclerotic lesion. S-shaped scoliosis of the thoracolumbar spine with multilevel degenerative changes. No compression deformity is seen. Bilateral breast implants are present. No acute radiographic abnormality in the chest or abdomen. Result History XR BONE SURVEY ROUTINE (Order #[id number]) on 12/25/2024 - Order - MRI 12/29/2022: demonstrating mild expansion and irregular cortical bone in medial left clavicle. - Bone scintography 01/05/2023: increased uptake in left sternoclavicular joint, and medial clavicle. - CT left clavicle/shoulder 01/11/2023: permeative lytic lesion with pathological fracture of left medial clavicle. Low-dose CT scan of the whole body (02/22/2023) 1. Stable expansile, lytic bone lesion with associated cortical destruction involving the medial left clavicle, corresponding with the site of recent biopsy. 2. There is a lytic lesion involving the posterior right ninth rib at the costovertebral joint with disruption of the posterior cortex. 3. No other lytic bone lesions identified. 4. 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 Correlation with prior outside studies, if available, would be helpful. This could be further evaluated with dedicated head CT. 5. Additional findings as above which are stable from the recent chest and abdominopelvic CT exams. Pathology: Image guided biopsy of the mid left clavicle (01/30/2023) FINAL DIAGNOSIS A. Lesion, left clavicular head, biopsy: - Plasma cell neoplasm (kappa). - See comment. CVC/mm/02/01/2023 Diagnosis Comment Histologic sections show fragments of blood clot associated with clusters of plasma cells. The plasma cells are intermediate sized, with abundant cytoplasm and round, eccentric nuclei with mature chromatin. Immunohistochemical stains have been performed with appropriately staining controls. The plasma cells are positive for CD138. On the stains for kappa or lambda they appear monotypic kappa. 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 Further classification of this process requires correlation with clinical, radiologic, and laboratory findings. Impression and Plan Cancer Staging No matching staging information was found for the patient. #multiple myeloma Cytogenetic risk category: Standard risk Frailty Score: 0 IMWG Response Criteria: Renal: Normal creatinine, clinically no evidence for renal dysfunction. Infectious diseases: No current infection, no need for prophylaxis Musculoskeletal: Chronic pain, satisfactorily controlled. Bone modifying therapy: zometa Venous thromboembolism risk: No need for DVT prophylaxis control counseling: Does not apply since patient is naturally postmenopausal for greater than 24 months or post hysterectomy or post bilateral oophorectomy Neurology: No neurologic symptoms Health maintenance discussed: Regular exercise and Appropriate diet Side effects from current medications: None Mrs. Dickinson is an 89-year-old female with excellent performance status who was recently diagnosed with a fracture of the left mid clavicle without evidence of trauma to the site. An image guided biopsy revealed plasma cell involvement and a initial protein electrophoresis demonstrated a monoclonal paraprotein 1.19 mg/dL. Cross-sectional imaging revealed no evidence of additional osseous disease. She continues on the AGNES regimen with excellent tolerance of treatment and performance status. Her intact monoclonal paraprotein has fluctuated; however, this is in the context of daratumumab treatment and an underlying CD5+ B-cell clone. Her total IgG level has normalized and there are no other indications of symptomatic or biochemical progression. Overall, she is likely at least achieved a VGPR and probably a CR. Her immunofixation remains negative. We will continue aspirin, acyclovir, and bone stabilizing therapy. Plan Summary: -Continue daratumumab monthly and lenalidomide (dexamethasone dropped based on Agnes protocol) with lenalidomide 10 mg day 1 through 21 of a 28-day cycle for now - XR bone survey done 12/25/2024 as detailed above. -Hold bone stabilizing treatment due to recent dental work -Continue acyclovir and aspirin -RTC in 8 weeks or sooner if needed Medical Decision Making: Problems: Low: Stable chronic illness Data: Unique test result(s) reviewed: 3+ Risk: Moderate: Drug management and Moderate risk from testing/treatment Medical Decision Making Level: 4 - Moderate Alvin Balderas APRN.CNP Additional intake questions: Has the patient had fever, nausea, vomiting, diarrhea, constipation, fatigue for > 1 week? No Does the patient have a decreased appetite? No Does patient want to see a Housekeeping Department Worker? No (yes to any of above refer patient to schedulers for dietitian appointment) ) Does patient have any new or increased numbness or tingling of extremities? No Is patient interested in fertility information? No Does patient need any prescription refills? No Does patient have an advanced directive in place? No Electronically Signed By: Anika Mcnamara LPN documented in this encounter [facility] 03-21-2025 Note [facility] 03-21-2025 Note [facility] 03-13-2025 Note [facility] 03-13-2025 History of Present illness Narrative Mele Mejia MD Department of Orthopaedics Orthopaedics [address] [facility] [address] Dept: [phone] Dept March 13, 2025 CHIEF COMPLAINT: New of the Right Knee - Bakers Cyst HPI Patient here for evaluation gandhi's cyst right knee. Patient states she was having some swelling in her lower leg when an ultrasound was ordered. She was negative for a blood clot but showed she has a gandhi's cyst. Patient denies any pain today. US done on 02/06/25 and a bone survey on 12/25/24. with patient today. 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 Will continue to monitor patient for Gandhi's cyst of knee, right Immunocompromised (hcc) Multiple myeloma in remission (hcc), patient to schedule visit as per follow up discussed. OBJECTIVE: Mrs. Kayley Dickinson is a pleasant 89 year old in no apparent distress. Gen:There were no vitals taken for this visit. nl development, non obese, no deformities ENT: Normocephalic, normal hearing, moist mucosa CV: Pulses:DP/PT= 2+ and symmetric, capillary refill < 2 secs, no peripheral edema/varicosities Skin: no rash, bruising or lesions. Good turgor. Psych: cooperative and appropriate, alert and oriented x 3, good mood and affect. Musculoskeletal: Minimal fullness in the popliteal space without any pain today. No effusion. Full ROM. IMAGING: Impression IMPRESSION: Negative study for acute proximal DVT in the right lower extremity. Nondiagnostic study for acute calf DVT in the right lower extremity. Negative study for acute superficial thrombophlebitis in the imaged segments of the right lower extremity. 6.1 cm mildly complex cystic structure in the right popliteal fossa commonly represents a popliteal cyst though this examination is not diagnostic for this entity. Supporting Subjective Information Below: Past Medical History: PAST MEDICAL HISTORY Diagnosis Date Advance directive discussed with patient 02/25/2022 Discussed 02/2022 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 rich plaque 03/31/2019 Current use of proton pump inhibitor 07/30/2019 Elevated fasting blood sugar 03/29/2019 GERD without esophagitis 03/29/2019 High cholesterol History of 2019 novel coronavirus disease (COVID-19) 09/07/202202/2022 History of squamous cell carcinoma of skin 03/31/2019 Right side of nose Hypothyroidism, acquired 03/29/[address] 02/25/2022 DPA: Micaela () Medicare annual wellness visit, subsequent 08/17/2020 Medical B eligibilty date 11/21/2002 Last done: 02/11/2020 Mixed hyperglyceridemia 03/29/2019 Multiple myeloma (HCC) 02/13/2023 Osteopenia of spine 03/29/2019 Past Surgical History: PAST SURGICAL HISTORY Procedure Laterality Date CATARACT EXTRACTION HX Bilateral 2018 - eye stents for glaucoma COLONOSCOPY 10/25/2021 repeat only if needed HYSTERECTOMY partial - age 40 MASTECTOMY, SIMPLE, COMPLETE Bilateral 1977 with implants for fibrocystic disease (?) NUCLEAR STRESS TEST (WT<440#) (UNION) 08/09/2013 old records: negative PAST SURGICAL HISTORY OF 1995 breast implants Family History: FAMILY HISTORY Problem Relation Age of Onset Heart Failure Mother Diabetes Sister Hyperlipidemia Sister Thyroid Sister Hyperlipidemia Sister Breast Cancer Maternal Grandmother Diabetes Daughter Alzheimer's Disease No Family History Colon Cancer No Family History Prostate Cancer No Family History Ovarian cancer No Family History Uterine Cancer No Family History Coronary Artery Disease No Family History Hypertension No Family History Kidney Disease No Family History Seizures No Family History Stroke No Family History Social History:SOCIAL HISTORY[1] Medications: Current Outpatient Medications Medication Sig REVLIMID 10 mg capsule Take 1 capsule (10 MG) by mouth daily at bedtime for 21 days on and 7 days off. levothyroxine (SYNTHROID) 50 mcg tablet Take 1 tablet by mouth once daily. Take on empty stomach. For Thyroid. omeprazole (PRILOSEC) 40 mg capsule Take 1 capsule by mouth daily before breakfast. 1/2 hr before meal. pravastatin (PRAVACHOL) 80 mg tablet Take 1 tablet by mouth once daily. acyclovir (ZOVIRAX) 400 mg tablet Take 1 tablet by mouth once daily. cyanocobalamin (VITAMIN B-12) 500 mcg tablet Take 1 tablet by mouth once daily. FERROUS SULFATE ORAL Take 1 tablet by mouth. aspirin, enteric coated (ASPIRIN, ENTERIC COATED) 81 mg EC tablet Take 81 mg by mouth. omega-3 acid ethyl esters (LOVAZA) 1 gram capsule Take 1 g by mouth. calcium carbonate-vitamin D3 (CALTRATE WITH VITAMIN D3) 600 mg(1,500mg) -800 unit tab Take 1 tablet by mouth twice daily. ondansetron (ZOFRAN) 8 mg tablet Take 1 tablet by mouth once daily as needed for nausea/vomiting. No current facility-administered medications for this visit. Allergies: Sulfa (Sulfonamide Antibiotics) and Adhesive Tape-Silicones ROS: General (negative for fatigue, malaise, weight loss/gain) HEENT (negative for headache, earache, recent vision changes, sinus pain, sore throat) Respiratory (no recent shortness of breath, hemoptysis) CV (negative for chest tightness, palpitations) Musculoskeletal (see HPI) Psych (no depression, anxiety) Recording using [employer] software for draft documentation of the visit was discussed with the patient/authorized outreach representative; all questions welcomed and answered. Patient/authorized outreach representative agreed to proceed Mele Mejia MD [1] Social History Tobacco Use Smoking status: Never Smokeless tobacco: Never Vaping Use Vaping status: Never Used Substance Use Topics Alcohol use: Not Currently Drug use: Not Currently documented in this encounter [facility] 03-11-2025 Instructions Ruthy Valle PA-C - 03/11/2025 12:16 PM EDT Screening schedule The following prevention plan is recommended: Medicare Annual Wellness Visit due on 03/06/2025 WHAT YOU CAN DO TO PREVENT FALLS Many falls can be prevented. By making some changes, you can lower your chances of falling. Four things YOU can do to prevent falls for you* and your caregiver 1. Begin a regular exercise program Exercise is one of the most important ways to lower your chances of falling. It makes you stronger and helps you feel better. Exercises that improve balance and coordination (like Raheem Chi) are the most helpful. Lack of exercise leads to weakness and increases your chances of falling. Ask your doctor or health care provider about the best type of exercise program for you. 2. Have your health care provider review your medicines Have your doctor or pharmacist review all the medicines you take, even [id number] medicines. As you get older, the way medicines work in your body can change. Some medicines, or combinations of medicines, can make you sleepy or dizzy and can cause you to fall. 3. Have your vision checked Have your eyes checked by an eye doctor at least once a year. You may be wearing the wrong glasses or have a condition like glaucoma or cataracts that limits your vision. Poor vision can increase your chances of falling. 4. Make your home safer About half of all falls happen at home. To make your home safer: Remove things you can trip over (like papers, books, clothes, and shoes) from stairs and places where you walk. Remove small throw rugs or use double-sided tape to keep the rugs from slipping. Keep items you use often in cabinets you can reach easily without using a step stool. Have grab bars put in next to your toilet and in the tub or shower. Use non-slip mats in the bathtub and on shower floors. Improve the lighting in your home. As you get older, you need brighter lights to see well. Hang light-weight curtains or shades to reduce glare. Have handrails and lights put in on all staircases. Wear shoes both inside and outside the house. Avoid going barefoot or wearing slippers. For more information, contact: Centers for Disease Control and Prevention www.cdc.gov/injury * This information may not apply if you have certain medical conditions. documented in this encounter [facility] 03-11-2025 Note [facility] 03-11-2025 History of Present illness Narrative Images from the original note were not included. Kayley Dickinson is a 89 year old female here for a Medicare wellness visit. Medicare Health Risk Assessment General Health Good Exercise: Minutes/Day 30 min Exercise: Days/Week 2 days Alcohol: Daily Use Never Alcohol: Drinks/Day Patient does not drink Alcohol: 6 or more drinks Never Feel off balance No Concerns: Teeth/Dentures No Concerns: Sexual function No Troubled by feelings Stressed; Anxious Frequency: Eating healthy diet More than half the days ADLs requiring help None of the above Safety precautions in home/vehicle Yes Smoke, vape, chews tobacco No Difficulty hearing Yes, I wear a hearing aid Difficulty seeing No Current Providers Specialists: I have reviewed specialist-related care of the patient in the medical record. Current care team: Patient Care Team: Hilton Pena MD as PCP - General (Family Medicine) Katey Croft, RN as Specialty Cultural Anthropology Professor (Hematology/Oncology) Mariela Masters, CONCETTA as Specialty Cultural Anthropology Professor (Radiation Oncology) Jennifer Valles LSW as Geotechnicial Properties Technician (Oncology) Andrew Stanton APRN.BR[employer] W[employer] INSTRUMENTS TUBE BENDER as Derrick Car Operator (Family Medicine) Ruthy Valle PA-C as Derrick Car Operator (Family Medicine) Jaime Beatty MD (Hematology/Oncology) Outside specialists seen: Dr. Lentz-Michael, Dr. Ordonez-Eye, Oncology, ENT-Dr. Balderas, Dentist , Ortho-Dr. Mejia Medical/Family history review Reviewed and updated problem list, medical/surgical/family/social history, medications, and allergies. Opioid use review Opioid Medications (last 90 days) No data to display Anxiety/Depression screening PHQ-2 Score: 0 (Lower risk for depression) AYAD-2 Score: 0 (Lower risk for anxiety) Recommendation: no further intervention at this time Cognitive screening Mini Cog Score: 3 Cognitive screening reviewed and No further action needed (score 3-5). Functional Observation Was the patient's Timed Up & Go test unsteady or >= 12 seconds? No Advance Care Planning Surrogate decision maker and/or advance care plan documented Measurements BP 138/66 Pulse 70 Temp 36.9 C (98.5 F) (Tympanic) Resp 16 Ht 153.7 cm (5' 0.5) Wt 50.4 kg (111 lb 3.2 oz) SpO2 98% BMI 21.36 kg/m Vision Screening: Follows with optometry/ophthalmology Assessment/Plan Medicare annual wellness visit, subsequent (Z00.00) - Counseled on healthy diet and regular exercise - Fall avoidance information provided - Personalized prevention plan provided Chief Complaint Patient presents with: Medicare Wellness Exam 6 Month Exam HPI Kayley Dickinson is a 89 year old female who presents here today for extensive exam. Patient with hx of Patient with hx of Multiple Myeloma, Hypothyroid, Elevated glucose, CAD, GERD, and those as below. Multiple Myeloma: - Managed with Revlimid. - Kayley reports low protein levels, attributed to medication. - Platelet count has increased slightly over the past month. - Monitored monthly, previously weekly. - No current pain or issues with the condition. Gandhi's Cyst: - Cyst on the back of the knee. - Scheduled to see Dr. Mejia on for evaluation. - No pain associated with the cyst. Hearing Loss: - No hearing aid currently in use. - Kayley reports significant cerumen impaction in the left ear. - Using mineral oil to soften the wax. - Scheduled to see Andrey for cerumen removal. Last 4 Encounter BP Readings: Date: BP: 03/11/2025 140/64 02/21/2025 152/58 01/23/2025 124/46 12/25/2024 145/56 Past medical history, appointments, medications, allergies reviewed. Previous Medical History PAST MEDICAL HISTORY Diagnosis Date Advance directive discussed with patient 02/25/2022 Discussed 02/2022 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 rich plaque 03/31/2019 Current use of proton pump inhibitor 07/30/2019 Elevated fasting blood sugar 03/29/2019 GERD without esophagitis 03/29/2019 High cholesterol History of 2019 novel coronavirus disease (COVID-19) 09/07/202202/2022 History of squamous cell carcinoma of skin 03/31/2019 Right side of nose Hypothyroidism, acquired 03/29/[address] 02/25/2022 DPA: Micaela () Medicare annual wellness visit, subsequent 08/17/2020 Medical B eligibilty date 11/21/2002 Last done: 02/11/2020 Mixed hyperglyceridemia 03/29/2019 Multiple myeloma (HCC) 02/13/2023 Osteopenia of spine 03/29/2019 Previous Surgical History PAST SURGICAL HISTORY Procedure Laterality Date CATARACT EXTRACTION HX Bilateral 2017 COLONOSCOPY 10/25/2021 repeat only if needed HYSTERECTOMY partial - age 40 MASTECTOMY, SIMPLE, COMPLETE Bilateral 1977 with implants for fibrocystic disease (?) NUCLEAR STRESS TEST (WT<440#) (UNION) 08/09/2013 old records: negative PAST SURGICAL HISTORY OF 1995 breast implants Family History FAMILY HISTORY Problem Relation Age of Onset Heart Failure Mother Diabetes Sister Hyperlipidemia Sister Thyroid Sister Breast Cancer Maternal Grandmother Diabetes Daughter Hyperlipidemia Sister Alzheimer's Disease No Family History Colon Cancer No Family History Prostate Cancer No Family History Ovarian cancer No Family History Uterine Cancer No Family History Coronary Artery Disease No Family History Hypertension No Family History Kidney Disease No Family History Seizures No Family History Stroke No Family History Patient Allergies ALLERGIES Allergen Reactions Sulfa (Sulfonamide * Swelling Adhesive Tape-Silic* Rash Current Medications Current Outpatient Medications on File Prior to Visit Medication Sig REVLIMID 10 mg capsule Take 1 capsule (10 MG) by mouth daily at bedtime for 21 days on and 7 days off. levothyroxine (SYNTHROID) 50 mcg tablet Take 1 tablet by mouth once daily. Take on empty stomach. For Thyroid. omeprazole (PRILOSEC) 40 mg capsule Take 1 capsule by mouth daily before breakfast. 1/2 hr before meal. pravastatin (PRAVACHOL) 80 mg tablet Take 1 tablet by mouth once daily. acyclovir (ZOVIRAX) 400 mg tablet Take 1 tablet by mouth once daily. ondansetron (ZOFRAN) 8 mg tablet Take 1 tablet by mouth once daily as needed for nausea/vomiting. cyanocobalamin (VITAMIN B-12) 500 mcg tablet Take 1 tablet by mouth once daily. FERROUS SULFATE ORAL Take 1 tablet by mouth. aspirin, enteric coated (ASPIRIN, ENTERIC COATED) 81 mg EC tablet Take 81 mg by mouth. omega-3 acid ethyl esters (LOVAZA) 1 gram capsule Take 1 g by mouth. calcium carbonate-vitamin D3 (CALTRATE WITH VITAMIN D3) 600 mg(1,500mg) -800 unit tab Take 1 tablet by mouth twice daily. No current facility-administered medications on file prior to visit. Social History SOCIAL HISTORY[1] Review of Symptoms REVIEW OF SYSTEMS Constitutional: (+) recent weight loss, (-) fever, (-) fatigue Head: (-) headaches Ears/Nose/Mouth/Throat: (+) cerumen buildup, (+) oral soreness, (-) ear pain, (-) sinus congestion, (-) sore throat Neck: (-) neck swelling Cardiovascular: (-) chest pain, (-) palpitations Respiratory: (-) cough, (-) wheezing, (-) shortness of breath Gastrointestinal: (+) intermittent diarrhea, (-) nausea, (-) vomiting Genitourinary: (-) urinary symptoms, (-) abnormal vaginal bleeding, (-) vaginal discharge Musculoskeletal: (+) posterior knee mass, (+) leg swelling, (+) bilateral foot heaviness, (-) joint pain, (-) back pain, (-) muscle pain Skin: (-) skin changes Neurological: (-) numbness, (-) tingling, (-) seizures, (-) tremors Psychiatric: (-) anxiety, (-) depression, (-) insomnia Endocrine: (-) cold intolerance, (-) heat intolerance Hematologic/Lymphatic: (+) easy bruising SEE HPI EXAM: BP 138/66 Pulse 70 Temp 36.9 C (98.5 F) (Tympanic) Resp 16 Ht 153.7 cm (5' 0.5) Wt 50.4 kg (111 lb 3.2 oz) SpO2 98% BMI 21.36 kg/m General Appearance: Well appearing, alert, in no acute distress, well-hydrated, well nourished.. Skin: deferred to dermatology. Head: Normocephalic, no masses, lesions, tenderness or abnormalities. Eyes: Anicteric sclera. Pupils are equally round and reactive to light. Extraocular movements are intact. . Ears: External ears normal, Left canal with cerumen impaction. R canal clear. R TM wnl Nose/Sinuses: Nares normal, septum midline, mucosa normal, no drainage or sinus tenderness. Oropharynx: Lips, mucosa, and tongue normal, teeth and gums normal, oropharynx normal. Neck: Supple, no adenopathy; thyroid symmetric, normal size, no bruits. Lungs: Lungs clear to auscultation. No wheezing, rhonchi, rales.. Heart: RRR without murmur, gallop, or rubs. No ectopy. Abdomen: Normal abdominal exam, Abdomen soft, non-tender. Bowel sounds normal. No masses, organomegaly. Extremities: No deformities, edema, skin discoloration, clubbing or cyanosis. Good capillary refill. . Peripheral Pulses: Normal. Neurologic: Gait normal. Reflexes normal and symmetric. Sensation grossly intact.. Health Maintenance List Medicare Annual Wellness Visit due on 03/06/2025 Influenza Vaccine(1) due on 03/24/2025 LDL Cholesterol due on 02/17/2026 Depression Screening due on 03/11/2026 Anxiety Screening due on 03/11/2026 Diabetes Screening due on 02/18/2028 DTaP,Tdap,Td Vaccine(3 - Td or Tdap) due on 08/20/2031 Bone Density Screening Completed Advance Directive Discussion Completed RSV Vaccine Completed Shingrix Vaccine Completed Pneumococcal Vaccine: 50+ Completed Cervical Cancer Screening Discontinued Data reviewed Latest Ref Rng 02/17/2025 Color Yellow Yellow Clarity Clear Clear Glucose, Urine Negative Negative Bilirubin, Urine Negative Negative Ketones, Urine Negative Negative Specific [place], Ur 1.005 - 1.030 1.006 Hemoglobin/Blood,Ur Negative Negative pH, Urine 5.0 - 8.0 6.5 Protein, Urine Negative Negative Urobilinogen 0.2-1.0 EU/dL 0.2 EU/dL Nitrites Negative Negative Leukest Negative Negative WBC, Urine 0-5 /HPF 0-5 /HPF RBC, Urine 0-2 /HPF 0-2 /HPF Bacteria Negative /HPF Negative Epithelial Cells /HPF None Seen Hyaline Cast 0 /LPF 1-3 /LPF ! Total Cholesterol, Nonfasting <200 mg/dL 104 Triglycerides, Nonfasting <150 mg/dL 61 HDL Cholesterol, Nonfasting >39 mg/dL 48 LDL Cholesterol Calculated, Nonfasting <100 mg/dL 42 Non HDL Cholesterol, Nonfasting <130 mg/dL 56 VLDL Cholesterol, Nonfasting <30 mg/dL 8 Total Chol/HDL Ratio, Nonfasting <5.10 mg/dL 2.17 LDL/HDL Ratio, Nonfasting <2.54 mg/dL 0.88 Hemoglobin A1C 4.3 - 5.6 % 5.8 (H) Estimated Average Glucose mg/dL 120 Vitamin B12 232 - 1,245 pg/mL 1,135 Magnesium 1.7 - 2.3 mg/dL 1.9 TSH 0.270 - 4.200 mIU/L 1.760 Legend: ! Abnormal (H) High Assessment and Plan 1. Medicare annual wellness visit, subsequent (Z00.00) 2. Advance directive discussed with patient (Z71.89) 3. Screening for depression (Z13.31) 4. Encounter for screening examination for other mental health and behavioral disorders (Z13.39) - Completed Medicare annual wellness visit; no significant medical or surgical changes reported. - Depression screening completed; no concerns identified. - Discussed advance directive. - Order routine labs for 6 months from now. - Follow-up in 6 months for routine checkup. 5. 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 rich plaque (I25.10) 6. 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 7. Hypothyroidism, acquired (E03.9) - TSH 1.76, within normal limits. 8. Elevated fasting blood sugar (R73.01) - A1c 5.8%, stable. 9. GERD without esophagitis (K21.9) - Stable - Continue current management 10. Elevated blood pressure reading without diagnosis of hypertension (R03.0) - BP readings: 152/58 (previous), 140/64 (today), 130/66 (repeat today). - Advised patient to monitor BP at home over the next couple of weeks to assess for persistent elevation. 11. Multiple myeloma, remission status unspecified (HCC) (C90.00) 12. Multiple myeloma not having achieved remission (HCC) (C90.00) - Protein levels stable over the past 6 months; platelet count improved - Patient on Revlimid, which may contribute to low protein levels. - Advised to continue current management and follow-up with oncology as scheduled. 13. Synovial cyst of right knee (M71.21) - Patient to be evaluated by Dr. Mejia on . Ruthy Valle PA-C Recording using [employer] software for draft documentation of the visit was discussed with the patient/authorized outreach representative; all questions welcomed and answered. Patient/authorized outreach representative agreed to proceed [1] Social History Tobacco Use Smoking status: Never Smokeless tobacco: Never Vaping Use Vaping status: Never Used Substance Use Topics Alcohol use: Not Currently Drug use: Not Currently documented in this encounter [facility] 03-03-2025 History of Present illness Narrative [facility] RX SPECIALTY CLINICAL ASSESSMENT - CELGENE REMS HEADER V4 Patient is not a female of reproductive potential Lenalidomide - Patient Not of Reproductive Potential V3 All boxes and spaces must be marked or filled in during counseling with the patient for every prescription. Darell Chu RPh 9:33 AM March 03, 2025 [facility] Refill Assessment Medication(s): Revlimid (BRAND) Reviewed Heme/Onc OV note on 02/21, Returns to dentist in [place]. Its been about three weeks since dental procedure. Still sore but now able to eat. Half way with revlimid. No new pains. No recurrent infections. Reviewed 02/17 labs, - (monthly) WBC Date Value Ref Range Status 02/17/2025 3.84 3.70 - 11.00 k/uL Final Abs Neut Date Value Ref Range Status 02/17/2025 2.65 1.45 - 7.50 k/uL Final Platelet Count Date Value Ref Range Status 02/17/2025 118 (L) 150 - 400 k/uL Final Hemoglobin (g/dL) Date Value 02/17/2025 11.7 01/20/2025 11.9 12/20/2024 11.7 09/06/2021 14.0 03/15/2021 14.0 02/04/2021 13.3 Creatinine Date Value Ref Range Status 02/17/2025 0.81 0.58 - 0.96 mg/dL Final Estimated Creatinine Clearance: 37.7 mL/min (based on SCr of 0.81 mg/dL). (periodically) ALT Date Value Ref Range Status 02/17/2025 21 7 - 38 U/L Final AST Date Value Ref Range Status 02/17/2025 18 13 - 35 U/L Final Bilirubin, Total Date Value Ref Range Status 02/17/2025 0.3 0.2 - 1.3 mg/dL Final K/L Ratio Labs within 120 days: K/L Ratio, Serum Date Value Ref Range Status 02/17/2025 0.76 0.26 - 1.65 Final 01/20/2025 0.87 0.26 - 1.65 Final M-Protein Labs within 120 days: M-Protein Concentration Date Value Ref Range Status 02/17/2025 0.23 (H) <=0.00 g/dL Final 01/20/2025 0.00 <=0.00 g/dL Final Last 1 Encounter BP Readings: Date: BP: 02/21/2025 152/58 TSH Date Value Ref Range Status 02/17/2025 1.760 0.270 - 4.200 mIU/L Final (every 2-3 months) ALLERGIES[1] Revlimid cycles (28DS: 21 on / 7 off) are as follows: C1D1 03/13/23 C16D1 05/02/24 - delayed d/t covid, approved by Tx team to resume C17D1 05/30/24 C18D1 07/01/24- delayed d/t infection/antibiotics x10d C19D1 07/29/24 C20D1 08/26/24 C21D1 09/23/24 C22D1 10/21/24 C23D1 11/18/24 C24D1 12/16/24 C25D1 01/13/25 C26D1 02/10/25 C27D1 03/10/25 REMS note: Pt's last survey was completed on 01/06/25. Next survey will be available on or after 06/16/25. Patient's current medication list and adherence status to current therapy were reviewed by Specialty Pharmacy clinical pharmacist to identify any new drug interactions or non-compliance to therapy. Therapy continues to be appropriate for disease, patient response, and medical condition. Verification of therapeutic benefit and effectiveness with current therapy was completed. Adverse events, barriers in adherence, and side effects were assessed and addressed if applicable. Will proceed with refill with no changes in therapy - patient progressing towards achieving therapeutic goals based on medication-specific laboratory parameters, disease state markers and outcomes. Office/provider notes have been reviewed prior to dispensing the medication. Meds Previous to this Encounter[2] [facility] RX SPECIALTY CLINICAL ASSESSMENT - HEMATOLOGY ONCOLOGY V6: Assessment to use: Refill Lab monitoring inclusive of CBC, Chem-7, and other labs as pertinent for therapy: Yes Chemo cycle timing assessment: Yes Assessment of injection issues: N/A Current medication list (including drug interaction assessment): Yes Experience of adverse reactions to the medication: Yes Date of influenza vaccination reminder: 04/01/2024 Date of most recent vaccination assessment: 04/01/2024 Treatment Plan Information: Diagnosis: Multiple myeloma - newly diagnosed Previous treatment(s): none, newly diagnosed Treatment plan: Revlimid (lenalidomide) + daratumumab + dexamethasone Starting Dose/Titration: Take 1 capsule (10mg) by mouth daily at bedtime for 21 days on, 7 days off. - Renal dose reduction required?: yes - CrCl 47mL/min, usual dose 25mg: PI recommends DR to 10mg daily, may increase to 15mg after 2 cycles if tolerating; dose reduced to 10 mg. Administration: - Take with or without food - Take at the same time each day with water; swallow whole Warnings: include but are not limited to - CONGRESSIONAL AIDE effects (dizziness, fatigue) - Tumor Flare, TLS - Venous and arterial thromboembolism (DVT, PE, TN, stroke) - BBW - Hematologic toxicity (neutropenia and thrombocytopenia) - BBW - Embryo- toxicity - BBW - No blood (or semen) donations during and 4 weeks post discontinuation Adverse reactions: include but are not limited to - Hepatotoxicity - Peripheral edema - Derm rxns (pruritis, skin rash, xeroderma) - Diarrhea > constipation; decrease appetite, abdominal pain - N/V (min to low) - BMS (neutropenia, thrombocytopenia, anemia) - Fatigue, asthenia, arthralgia, headache; back pain, muscle cramps/spasms Monitoring: - CBC with diff (MCL - weekly C1, Q2 weeks C2-4, then monthly; MDS - weekly x8 weeks, then at least monthly; MM - weekly x2 cycles; Q2 weeks C3, then monthly; Follicular and marginal zone lymphoma - weekly x3 weeks, Q2 weeks C2-4, then monthly) - sCr, LFTs (periodically) - TSH (baseline, then every 2-3 months) - ECG when clinically indicated - S/S infection, bruising, bleeding, hepatoxocity, 2ndry malignancy, thromboembolism, derm toxicity, TLS - test (for females of reproductive potential) - Hep B screening Drug-Drug Interactions: no interactions identified by Jennifer Baseline: - CBCD 02/22/23 - TSH 1.680 on 02/15/23 - CrCl 47mL/min on 02/22/23 - Hep B screening 02/23/23 Est. Tx Plan Start Date: No information available Estimated Start Date Info: Per Dr. Voss's discretion MDO to confirm DR for current CrCl - dose adjusted to 10 mg daily. Est. Estimated Treatment Duration: Continue until disease progression or unacceptable toxicity. Darell Chu RPh [1] Allergies Allergen Reactions Sulfa (Sulfonamide * Swelling Adhesive Tape-Silic* Rash [2] Current Outpatient Medications on File Prior to Visit Medication Sig REVLIMID 10 mg capsule Take 1 capsule (10 MG) by mouth daily at bedtime for 21 days on and 7 days off. levothyroxine (SYNTHROID) 50 mcg tablet Take 1 tablet by mouth once daily. Take on empty stomach. For Thyroid. omeprazole (PRILOSEC) 40 mg capsule Take 1 capsule by mouth daily before breakfast. 1/2 hr before meal. pravastatin (PRAVACHOL) 80 mg tablet Take 1 tablet by mouth once daily. acyclovir (ZOVIRAX) 400 mg tablet Take 1 tablet by mouth once daily. ondansetron (ZOFRAN) 8 mg tablet Take 1 tablet by mouth once daily as needed for nausea/vomiting. cyanocobalamin (VITAMIN B-12) 500 mcg tablet Take 1 tablet by mouth once daily. FERROUS SULFATE ORAL Take 1 tablet by mouth. aspirin, enteric coated (ASPIRIN, ENTERIC COATED) 81 mg EC tablet Take 81 mg by mouth. omega-3 acid ethyl esters (LOVAZA) 1 gram capsule Take 1 g by mouth. calcium carbonate-vitamin D3 (CALTRATE WITH VITAMIN D3) 600 mg(1,500mg) -800 unit tab Take 1 tablet by mouth twice daily. No current facility-administered medications on file prior to visit. documented in this encounter [facility] 03-03-2025 Note [facility] 03-03-2025 Note [facility] 02-21-2025 Note [facility] 02-21-2025 Note [facility] 02-03-2025 History of Present illness Narrative [facility] Refill Assessment Medication(s): Revlimid Reviewed OV note on 01/23- pt reports worsened leg cramps, improved during off week. Also increased RLE swelling, continued hip pain. Eval for DVT. Reviewed [facility] note on 01/28- potential decrease to 5 mg dose - [facility] notified by office that patient does not want to decrease dose Labs reviewed. 01/20 SCr stable 0.87, free light chains wnl, no M protein identified. Plt 116, ANC 2.43. 01/27 DVT ultrasound negative Next clinic visit scheduled 02/21. Revlimid cycles (28DS: 21 on / 7 off) are as follows: C1D1 03/13/23 C16D1 05/02/24 - delayed d/t covid, approved by Tx team to resume C17D1 05/30/24 C18D1 07/01/24- delayed d/t infection/antibiotics x10d C19D1 07/29/24 C20D1 08/26/24 C21D1 09/23/24 C22D1 10/21/24 C23D1 11/18/24 C24D1 12/16/24 C25D1 01/13/25 C26D1 02/10/25 C27D1 03/10/25 REMS note: Pt's last survey was completed on 01/06/25. Next survey will be available on or after 06/16/25. Dispensing note: sending dosing calendar with shipment. ALLERGIES Allergen Reactions Sulfa (Sulfonamide * Swelling Adhesive Tape-Silic* Rash Patient's current medication list and adherence status to current therapy were reviewed by Specialty Pharmacy clinical pharmacist to identify any new drug interactions or non-compliance to therapy. Therapy continues to be appropriate for disease, patient response, and medical condition. Verification of therapeutic benefit and effectiveness with current therapy was completed. Adverse events, barriers in adherence, and side effects were assessed and addressed if applicable. Will proceed with refill with no changes in therapy - patient progressing towards achieving therapeutic goals based on medication-specific laboratory parameters, disease state markers and outcomes. Office/provider notes have been reviewed prior to dispensing the medication. Ramya Smith, [facility] PharmD, BCPS Clinical Pharmacist, Oncology [facility] P: , F: Pool: P [facility] Pool #: [id number] Steam Finisher Assessment Patient confirmed: Yes Med/dose confirmed: Yes Supplies needed: No supplies needed Missed doses: No Estimated days supply on hand: 0 Next cycle/dose due: 02/10/25 Copay amount: 0 Copay form of payment: (n/a) Delivery method: FedEx Signature required: Required (, Medicaid, patient preference) Delivery address: [address] [place] [id number] Delivery date: 02/06/25 Questions or concerns for the pharmacist?: No Did you have any side effects believed to be related to this medication, that resulted in hospitalization?: No Current Outpatient Medications on File Prior to Visit Medication Sig REVLIMID 10 mg capsule Take 1 capsule (10 MG) by mouth daily at bedtime for 21 days on and 7 days off. levothyroxine (SYNTHROID) 50 mcg tablet Take 1 tablet by mouth once daily. Take on empty stomach. For Thyroid. omeprazole (PRILOSEC) 40 mg capsule Take 1 capsule by mouth daily before breakfast. 1/2 hr before meal. pravastatin (PRAVACHOL) 80 mg tablet Take 1 tablet by mouth once daily. acyclovir (ZOVIRAX) 400 mg tablet Take 1 tablet by mouth once daily. ondansetron (ZOFRAN) 8 mg tablet Take 1 tablet by mouth once daily as needed for nausea/vomiting. cyanocobalamin (VITAMIN B-12) 500 mcg tablet Take 1 tablet by mouth once daily. FERROUS SULFATE ORAL Take 1 tablet by mouth. aspirin, enteric coated (ASPIRIN, ENTERIC COATED) 81 mg EC tablet Take 81 mg by mouth. omega-3 acid ethyl esters (LOVAZA) 1 gram capsule Take 1 g by mouth. calcium carbonate-vitamin D3 (CALTRATE WITH VITAMIN D3) 600 mg(1,500mg) -800 unit tab Take 1 tablet by mouth twice daily. No current facility-administered medications on file prior to visit. [facility] RX SPECIALTY CLINICAL ASSESSMENT - HEMATOLOGY ONCOLOGY V6: Ivent complete: No Assessment to use: Refill Date of influenza vaccination reminder: 04/01/2024 Date of most recent vaccination assessment: 04/01/2024 Treatment Plan Information: Diagnosis: Multiple myeloma - newly diagnosed Previous treatment(s): none, newly diagnosed Treatment plan: Revlimid (lenalidomide) + daratumumab + dexamethasone Starting Dose/Titration: Take 1 capsule (10mg) by mouth daily at bedtime for 21 days on, 7 days off. - Renal dose reduction required?: yes - CrCl 47mL/min, usual dose 25mg: PI recommends DR to 10mg daily, may increase to 15mg after 2 cycles if tolerating; dose reduced to 10 mg. Administration: - Take with or without food - Take at the same time each day with water; swallow whole Warnings: include but are not limited to - CONGRESSIONAL AIDE effects (dizziness, fatigue) - Tumor Flare, TLS - Venous and arterial thromboembolism (DVT, PE, TN, stroke) - BBW - Hematologic toxicity (neutropenia and thrombocytopenia) - BBW - Embryo- toxicity - BBW - No blood (or semen) donations during and 4 weeks post discontinuation Adverse reactions: include but are not limited to - Hepatotoxicity - Peripheral edema - Derm rxns (pruritis, skin rash, xeroderma) - Diarrhea > constipation; decrease appetite, abdominal pain - N/V (min to low) - BMS (neutropenia, thrombocytopenia, anemia) - Fatigue, asthenia, arthralgia, headache; back pain, muscle cramps/spasms Monitoring: - CBC with diff (MCL - weekly C1, Q2 weeks C2-4, then monthly; MDS - weekly x8 weeks, then at least monthly; MM - weekly x2 cycles; Q2 weeks C3, then monthly; Follicular and marginal zone lymphoma - weekly x3 weeks, Q2 weeks C2-4, then monthly) - sCr, LFTs (periodically) - TSH (baseline, then every 2-3 months) - ECG when clinically indicated - S/S infection, bruising, bleeding, hepatoxocity, 2ndry malignancy, thromboembolism, derm toxicity, TLS - test (for females of reproductive potential) - Hep B screening Drug-Drug Interactions: no interactions identified by Jennifer Baseline: - CBCD 02/22/23 - TSH 1.680 on 02/15/23 - CrCl 47mL/min on 02/22/23 - Hep B screening 02/23/23 Est. Tx Plan Start Date: No information available Estimated Start Date Info: Per Dr. Voss's discretion MDO to confirm DR for current CrCl - dose adjusted to 10 mg daily. Est. Estimated Treatment Duration: Continue until disease progression or unacceptable toxicity. Ramya Smith RPh [facility] RX SPECIALTY CLINICAL ASSESSMENT - CELGENE REMS HEADER V4 Patient is not a female of reproductive potential Lenalidomide - Patient Not of Reproductive Potential V3 All boxes and spaces must be marked or filled in during counseling with the patient for every prescription. Ramya Smith RPh 9:47 AM February 03, 2025 documented in this encounter [facility] 02-03-2025 Note [facility] 02-03-2025 Note [facility] 01-27-2025 History of Present illness Narrative Radiology Service Progress Note PATIENT NAME: Kayley Dickinson DATE OF SERVICE: January 27, 2025 TIME: 5:34 PM PATIENT IDENTITY VERIFICATION COMPLETED USING TWO (2) IDENTIFIERS: Name and Date of confirmed by patient verbally. FALL SCREENING: Has the patient had 2 falls in the last year or 1 fall with injury or currently using an Ambulatory Assistive Device (Walker, Cane, Wheelchair, Crutches, etc.)? No PATIENT GENDER DATA: Assigned female at . status: : No status: NO. PATIENT RELEVANT IMPLANT DATA REVIEWED: Not Applicable PATIENT PRESENTS WITH AN IMPLANTABLE OR ATTACHED RIVER EXPEDITION GUIDE: No RADIOLOGY DEPARTMENT: Ultrasound PERIPHERAL IV DATA: Not applicable SIGNED BY: Fatoumata Blancas RDMS January 27, 2025 5:34 PM documented in this encounter [facility] 01-27-2025 Note HNO ID: [id number] Author: FATOUMATA BLANCAS RDMS Service: Radiology Author Type: Technologist Type: Progress Notes Filed: 01/27/2025 17:34 Note Text: Radiology Service Progress Note PATIENT NAME: Kayley Dickinson DATE OF SERVICE: January 27, 2025 TIME: 5:34 PM PATIENT IDENTITY VERIFICATION COMPLETED USING TWO (2) IDENTIFIERS: Name and Date of confirmed by patient verbally. FALL SCREENING: Has the patient had 2 falls in the last year or 1 fall with injury or currently using an Ambulatory Assistive Device (Walker, Cane, Wheelchair, Crutches, etc.)? No PATIENT GENDER DATA: Assigned female at . status: : No status: NO. PATIENT RELEVANT IMPLANT DATA REVIEWED: Not Applicable PATIENT PRESENTS WITH AN IMPLANTABLE OR ATTACHED RIVER EXPEDITION GUIDE: No RADIOLOGY DEPARTMENT: Ultrasound PERIPHERAL IV DATA: Not applicable SIGNED BY: Fatoumata Blancas RDMS January 27, 2025 5:34 PM [facility] 01-23-2025 Note [facility] 01-23-2025 History of Present illness Narrative Additional intake questions: Has the patient had fever, nausea, vomiting, diarrhea, constipation, fatigue for > 1 week? No Does the patient have a decreased appetite? No Does patient want to see a Housekeeping Department Worker? No (yes to any of above refer patient to schedulers for dietitian appointment) ) Does patient have any new or increased numbness or tingling of extremities? No Is patient interested in fertility information? NA Does patient need any prescription refills? No Does patient have an advanced directive in place? Patient has paper work/recommended to bring a copy to next visit. Images from the original note were not included. [facility] (Elements copied from Dr Beatty' note dated December 25, 2024 have been reviewed and updated where appropriate, and all reflect current assessment and medical decision making during today's encounter January 23, 2025) Reason for visit: follow up myeloma. Baseline assessment on initial diagnosis date 2022 Cancer Staging No matching staging information was found for the patient. Symptomatic multiple myeloma, I Related Organ or Tissue Involvement (CRAB) or other Myeloma Defining Event (MDE): Bone disease: At least one lytic bone lesion on XR or CT if BMPC >=10%, at least 2 bone lesions on XR or CT if BMPC<10%, location of lytic lesion(s): Left clavicular head Antecedent plasma cell dyscrasia: No Myeloma FISH panel: Trisomy 15, trisomy 11 Cytogenetics: 46, XX LDH: 175 ISS stage: ISS Stage II Monoclonal proteins at diagnosis: Serum M-spike: 1.19 gm/dL, Involved serum free light chains: 35.2 mg/L, and Uninvolved serum free light chains: 10.4 mg/L Total immunoglobulins at diagnosis: IgG = 1980 mg/dl, IgA = 58 mg/dl, IgM = 38 mg/dl Bone marrow plasma cell infiltration: 10-15% plasma cells in the marrow Systemic treatment and disease course Start 02/23/2023-current Daratumumab, lenalidomide (per AGNES) - Myeloma response according to: International uniform response criteria, Moraie et al. Leukemia 20: 1467-73, 2006 and Lew et al. ERRATUM in Leukemia 21:1134, 2007. Update in Debra SV et al. Blood 117: [id number], 2011 Local treatments (radiation, surgery, kyphoplasty) 03/02/2023 to 03/08/2023 The Left clavicle received a total dose of 2000 cGy in 5 fractions at 400 cGy/fraction using 6 MV photons with Wedged Pair technique. History of present illness Mrs. Dickinson is an 87-year-old female with past medical history that includes hypothyroidism, GERD, hyperlipidemia, prediabetes, and possible coronary artery disease who was initially evaluated for left mid clavicular pain and swelling at an urgent care facility on 12/26/2022. A 2 view x-ray of the clavicle obtained on that occasion did not reveal evidence of an osseous abnormality. Of note, the patient did not experience antecedent trauma to the clavicle prior to that visit. He was initiated on Medrol Dosepak at the time of discharge. Follow-up MRI of the clavicle on 12/29/2022 demonstrated mild expansion and irregular cortical bone in the medial left clavicle. A bone scintigraphy study on 01/05/2023 demonstrated increased uptake in the left sternoclavicular joint medial clavicle, and a CT of the left clavicle and shoulder on 01/11/2023 demonstrated a permeative lytic lesion with a pathologic fracture of the left medial clavicle. The patient was evaluated in our orthopedic oncology clinic on 01/17/2023. CT scans of the chest abdomen and pelvis did not demonstrate any other evidence of overt osseous disease but did demonstrate hepatic hypodensities for which an MRI of the liver was suggested. An image guided biopsy left clavicle was performed demonstrated sheets of plasma cells. Currently paraprotein work-up prior to the current visit is a serum protein electrophoresis demonstrating a monoclonal spike of 1.19 mg/dL and a spot urine protein electrophoresis that does demonstrate a monoclonal paraprotein. The patient has no evidence of underlying bone marrow involvement in terms of her CBC which is entirely normal. There is no evidence of renal dysfunction or hypercalcemia. She denies a personal history of other pathologic fractures. She denies recent fevers, chills, night sweats, nausea, vomiting, diarrhea, voice changes, new rash, or weight loss. She has no personal history of malignancy and no strong family history of thrombophilia, bleeding diathesis, or hematologic cancer. Interim Updates: 03/31/2023: The returns evaluation management of symptomatic myeloma. She denies fevers, chills, night sweat nausea, vomiting, diarrhea, and peripheral neuropathy. She continues on aspirin and acyclovir. Pleated radiation therapy to the left clavicle with no residual pain at the site of the previous fracture. Her paraprotein labs demonstrate normalization of her involved serum free light chain and a decrease in her intact monoclonal paraprotein by approximately 50%. There is no evidence of renal dysfunction or hypercalcemia. Whole body low dose CT scan (see below) demonstrates 1/9 rib lytic lesion in addition to the known clavicular lesion. 05/05/2023: Mrs Dickinson is seen for a scheduled follow up visit. She is accompanied by her . Overall, she reports feeling well. Per her account, she has no pain in the area of her L clavicle. Reports two episodes of mild epistaxis over past month. States she has seen ENT in [place] and was told the recurrent nose bleeds were due to the anatomy of the Right side of her nose. Per patient, she is occasionally constipated and eating prunes usually relieves the constipation. Confirms compliance with Revlimid dosing and schedule. 05/31/23: Mrs. Dickinson is seen for a scheduled follow up visit, accompanied by her . She reports overall feeling well. She woke up this morning with a bruise just to the right of the sternoclavicular junction. She denies fevers, chills, night sweats, nausea, vomiting and diarrhea. She denies new rashes. Her paraprotein labs from last visit demonstrate a preserved free light chain ratio and a fluctuating intact monoclonal paraprotein by protein electrophoresis. 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 Her IgG level has normalized. She has very mild leukopenia and thrombocytopenia. There is no evidence of worsening anemia. There is no evidence of hypercalcemia. Continues on aspirin for thromboprophylaxis and acyclovir for VZV prophylaxis. Performance status is unchanged with the initiation of therapy she notes she is able to complete all of her ADLs and IADLs independently. 07/14/23: Constipation, the patient denies fevers, chills, night sweats, nausea, vomiting, diarrhea, and significant weight changes. 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 Serologically, her immunofixation demonstrates what is likely the presence of daratumumab. Her light chains remain within normal range with a normalized ratio. Her low level intact monoclonal paraprotein may represent daratumumab. She continues to take aspirin and acyclovir as directed. She complains of no new areas of bony pain. 12/01/23: At the present visit, patient denies fevers, chills, night, nausea, vomiting, diarrhea, significantly. She estimates that she wakes at 5 AM every day and is able to work for several hours before becoming tired in the early afternoon. She has not noticed any lymphadenopathy. She has not noticed any early satiety. Paraprotein labs indicate a complete remission. She remains on lenalidomide 10 mg daily day 1 through 21 of a 28-day cycle and monthly daratumumab. We have taken dexamethasone out of her treatment plan. She also receives monthly zoledronic acid. There is no evidence of renal dysfunction, hypercalcemia, or new onset cytopenias. 12/29/23: pt called in last week for brb from rectum. Has known hemorrhoids. Issue subsided without additional interventions. H/h stable. Denies other symptoms. 01/26/24: Mrs. Dickinson returns for follow up. Continues to tolerate treatment well. She tells me she is recommended to have a dental procedure where they will take some tissue from her upper gum and put it into an implant on her lower jaw. She said her dentist wanted clearance from Dr. Beatyt and will be sending the information to him to review. She wont be scheduled until she has an ok from our team. I advised her this will need to be reviewed once we have the details of what they are planning. In prep for this we will hold zometa until we know definitely if she will have this done or not. Started revlimid 01/15. 02/21/24: The patient here for follows up and tolerating the treatment well. Her lab workup from 02/19/24 shows an atypical region of restricted mobility on SPEP and no M protein on immunofixation. K/L ratio is also normal. IgG is 630 as well. CBC still shows mild pancytopenia. She denies recent fevers, chills, night sweats, nausea, vomiting, diarrhea, voice changes, new rash, or weight loss. She has an implant of the tooth planned for April 03 2024. Was counseled on keeping an eye out on the fatigue 06/14/24: In the interim since her last visit, the patient continued to receive daratumumab based maintenance. Today is C18D1. Most recent paraprotein labs reveal what is likely a negative immunofixation, completely normal serum free light chains, immune paresis, and essentially normal hemoglobin, and persistent but stable thrombocytopenia and lymphopenia. 08/09/24: The patient denies fevers, chills, night sweats nausea vomiting and new rash. Her diarrhea has improved dramatically since her recent visit. Continues lenalidomide 10 mg days 1-21 of a 28 day cycle aspirin currently. She is receiving once monthly daratumumab. Paraprotein labs indicate a sustained serologic VGPR at minimum and likely a complete remission. 12/25/24: The present time, the patient denies nausea, vomiting, diarrhea,. She notes some right-sided hip pain is worse with activity. She denies radiculopathy. She denies loss of bowel or bladder continence. Paraprotein labs do not demonstrate any evidence of disease progression. There is a mild normocytic anemia that has been persistent and is likely attributable to her treatment. She is in a VGPR at minimum with immunofixation likely reflecting the presence of daratumumab. 01/23/2025: Kayley Dickinson presents today for a scheduled follow up visit for continued evaluation and management of multiple myeloma. She is accompanied by her . She reports worsening leg cramps. Per her account, the cramps seem to occur less on her week off of Revlimid. She states that she also noticed more swelling in her R lower leg and R foot during the past week. Denies pain in RLE. Recurrent R hip pain that the patient correlates with more strenuous activities. Available labs reviewed with patient and her . Outlined a plan to have ultra sound imaging to evaluate RLE for DVT and asked her to call with any worsening or new symptoms. Review of systems General: No fever , No chills, and No night sweats HEENT: No lumps, no difficulty chewing or swallowing, no enlarging tongue, no tooth aches. Musculoskeletal: no current pain Hematological: No bleeding or easy bruising. Lymphatic / Immune system: No lymph node enlargement or infection. Cardiovascular: No orthopnea, no dyspnea, no chest pain, no palpitations, RLE swelling Pulmonary: No dyspnea, no wheezing, no cough. Gastrointestinal: see HPI. No nausea, vomitting, diarrhea, constipation, abdominal pain, or blood in stool. PAST MEDICAL HISTORY Diagnosis Date Advance directive discussed with patient 02/25/2022 Discussed 02/2022 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 rich plaque 03/31/2019 Current use of proton pump inhibitor 07/30/2019 Elevated fasting blood sugar 03/29/2019 GERD without esophagitis 03/29/2019 High cholesterol History of 2019 novel coronavirus disease (COVID-19) 09/07/202202/2022 History of squamous cell carcinoma of skin 03/31/2019 Right side of nose Hypothyroidism, acquired 03/29/[address] 02/25/2022 DPA: Micaela () Medicare annual wellness visit, subsequent 08/17/2020 Medical B eligibilty date 11/21/2002 Last done: 02/11/2020 Mixed hyperglyceridemia 03/29/2019 Multiple myeloma (HCC) 02/13/2023 Osteopenia of spine 03/29/2019 PAST SURGICAL HISTORY Procedure Laterality Date CATARACT EXTRACTION HX Bilateral 2018 COLONOSCOPY 10/25/2021 repeat only if needed HYSTERECTOMY partial - age 40 MASTECTOMY, SIMPLE, COMPLETE Bilateral 1977 with implants for fibrocystic disease (?) NUCLEAR STRESS TEST (WT<440#) (UNION) 08/09/2013 old records: negative PAST SURGICAL HISTORY OF 1995 breast implants Allergies / intolerances ALLERGIES Allergen Reactions Sulfa (Sulfonamide * Swelling Adhesive Tape-Silic* Rash Medications REVLIMID 10 mg capsule Take 1 capsule (10 MG) by mouth daily at bedtime for 21 days on, followed by 7 days off. levothyroxine (SYNTHROID) 50 mcg tablet Take 1 tablet by mouth once daily. Take on empty stomach. For Thyroid. omeprazole (PRILOSEC) 40 mg capsule Take 1 capsule by mouth daily before breakfast. 1/2 hr before meal. pravastatin (PRAVACHOL) 80 mg tablet Take 1 tablet by mouth once daily. acyclovir (ZOVIRAX) 400 mg tablet Take 1 tablet by mouth once daily. ondansetron (ZOFRAN) 8 mg tablet Take 1 tablet by mouth once daily as needed for nausea/vomiting. cyanocobalamin (VITAMIN B-12) 500 mcg tablet Take 1 tablet by mouth once daily. FERROUS SULFATE ORAL Take 1 tablet by mouth. aspirin, enteric coated (ASPIRIN, ENTERIC COATED) 81 mg EC tablet Take 81 mg by mouth. omega-3 acid ethyl esters (LOVAZA) 1 gram capsule Take 1 g by mouth. calcium carbonate-vitamin D3 (CALTRATE WITH VITAMIN D3) 600 mg(1,500mg) -800 unit tab Take 1 tablet by mouth twice daily. Social History Tobacco Use Smoking status: Never Smokeless tobacco: Never Vaping Use Vaping status: Never Used Substance Use Topics Alcohol use: Not Currently Drug use: Not Currently FAMILY HISTORY Problem Relation Age of Onset Heart Failure Mother Diabetes Sister Hyperlipidemia Sister Thyroid Sister Breast Cancer Maternal Grandmother Diabetes Daughter Hyperlipidemia Sister Alzheimer's Disease No Family History Colon Cancer No Family History Prostate Cancer No Family History Ovarian cancer No Family History Uterine Cancer No Family History Coronary Artery Disease No Family History Hypertension No Family History Kidney Disease No Family History Seizures No Family History Stroke No Family History Physical examination BP (!) 124/46 Pulse 68 Temp 36.1 C (97 F) Resp 18 Wt 52 kg (114 lb 10.2 oz) SpO2 100% BMI 21.37 kg/m ECOG PS: 1- Restricted in physically strenuous activity. Carries out light duty. General appearance: Well appearing, alert, in no acute distress, well-hydrated, well nourished. HEENT: No lumps, no macroglossia, no icterus. Mucous membranes pink. Neck: Supple, no adenopathy Lungs: even chest rise and fall. Extremities: No deformities, (+) trace pedal edema RLE Laboratory tests WBC (k/uL) Date Value 01/20/2025 3.71 12/20/2024 3.01 11/25/2024 3.35 10/28/2024 3.29 10/04/2024 3.45 09/02/2024 3.61 08/05/2024 3.39 07/08/2024 3.61 06/11/2024 3.46 05/14/2024 3.45 09/06/2021 6.85 03/15/2021 7.83 02/04/2021 6.15 01/31/2020 5.74 Abs Neut (ANC) (k/uL) Date Value 09/06/2021 4.61 03/15/2021 5.08 02/04/2021 3.89 01/31/2020 3.68 Abs Neut (k/uL) Date Value 01/20/2025 2.43 12/20/2024 1.59 11/25/2024 2.08 10/28/2024 2.13 10/04/2024 2.09 09/02/2024 2.35 08/05/2024 2.17 07/08/2024 2.46 06/11/2024 2.20 05/14/2024 2.18 Hemoglobin (g/dL) Date Value 01/20/2025 11.9 12/20/2024 11.7 11/25/2024 11.5 10/28/2024 11.8 10/04/2024 11.9 09/02/2024 11.9 08/05/2024 11.1 07/08/2024 10.7 06/11/2024 11.7 05/14/2024 11.3 09/06/2021 14.0 03/15/2021 14.0 02/04/2021 13.3 01/31/2020 13.3 Platelet Count (k/uL) Date Value 01/20/2025 116 12/20/2024 114 11/25/2024 102 10/28/2024 99 10/04/2024 84 09/02/2024 106 08/05/2024 112 07/08/2024 142 06/11/2024 86 05/14/2024 92 09/06/2021 157 03/15/2021 173 02/04/2021 148 01/31/2020 168 Glucose (mg/dL) Date Value 01/20/2025 93 12/20/2024 109 11/25/2024 96 10/28/2024 88 10/04/2024 118 09/02/2024 94 08/05/2024 126 07/08/2024 91 06/11/2024 107 05/14/2024 104 02/04/2021 98 01/31/2020 90 Creatinine (mg/dL) Date Value 01/20/2025 0.87 12/20/2024 0.91 11/25/2024 0.86 10/28/2024 0.91 10/04/2024 0.80 09/02/2024 0.96 08/05/2024 0.91 07/08/2024 0.91 06/11/2024 1.00 05/14/2024 0.85 02/04/2021 0.72 01/31/2020 0.70 Calcium (mg/dL) Date Value 02/04/2021 9.1 01/31/2020 9.5 Calcium, Total (mg/dL) Date Value 01/20/2025 9.0 12/20/2024 9.3 11/25/2024 9.3 10/28/2024 9.6 10/04/2024 8.8 09/02/2024 9.8 08/05/2024 9.4 07/08/2024 9.2 06/11/2024 9.1 05/14/2024 8.8 M-Protein Concentration (g/dL) Date Value 01/20/2025 0.00 12/20/2024 0.00 11/25/2024 0.00 10/28/2024 0.00 10/04/2024 0.00 09/02/2024 0.00 08/05/2024 0.00 07/08/2024 0.00 06/11/2024 0.00 05/14/2024 0.00 04/15/2024 0.00 03/19/2024 0.00 02/19/2024 0.00 01/23/2024 0.16 11/28/2023 0.15 10/31/2023 0.17 10/05/2023 0.19 09/06/2023 0.24 08/09/2023 0.29 07/13/2023 0.31 06/29/2023 0.33 06/14/2023 0.40 05/30/2023 0.39 05/18/2023 0.46 05/04/2023 0.06 04/20/2023 0.13 04/06/2023 0.58 03/29/2023 0.11 03/02/2023 1.20 02/22/2023 1.35 02/15/2023 1.39 01/17/2023 1.19 [place] Free, Serum Date Value 01/20/2025 12.4 mg/L 12/20/2024 12.7 mg/L 11/25/2024 13.0 mg/L 10/28/2024 12.3 mg/L 10/04/2024 14.1 mg/L 09/02/2024 16.4 mg/L 08/05/2024 15.8 mg/L 07/08/2024 13.5 mg/L 06/11/2024 15.0 mg/L 05/14/2024 17.0 mg/L 04/15/2024 13.3 mg/L 03/19/2024 17.1 mg/L 02/19/2024 16.0 mg/L 01/23/2024 16.7 mg/L 11/28/2023 17.3 mg/L 10/31/2023 15.6 mg/L 10/05/2023 16.2 mg/L 09/06/2023 15.5 mg/L 08/09/2023 16.0 mg/L 07/13/2023 Comment: Unable to assay. Specimen hemolyzed. Rarely, increased serum free light chains levels may not be detected or accurately quantified due to prozone phenomenon or in high viscosity samples using this immunoturbidimetric assay. Correlation with other laboratory results and clinical findings is recommended. The [place] Free Light Chain was performed using the Binding Site Optilite immunoturbidimetric method. Result obtained with different assay methods or kits cannot be used interchangeably. 06/29/2023 21.2 mg/L 06/14/2023 18.6 mg/L 05/30/2023 21.7 mg/L 05/18/2023 20.8 mg/L 05/04/2023 20.8 mg/L 04/20/2023 17.7 mg/L 04/06/2023 21.9 mg/L 03/29/2023 21.4 mg/L 03/02/2023 21.3 mg/L 02/22/2023 30.5 mg/L 02/15/2023 35.2 mg/L L[place] Free, Serum (mg/L) Date Value 01/20/2025 14.2 12/20/2024 14.1 11/25/2024 14.2 10/28/2024 15.2 10/04/2024 15.3 09/02/2024 15.7 08/05/2024 18.6 07/08/2024 14.5 06/11/2024 16.3 05/14/2024 17.1 04/15/2024 14.2 03/19/2024 18.2 02/19/2024 19.4 01/23/2024 18.4 11/28/2023 16.8 10/31/2023 15.8 10/05/2023 14.7 09/06/2023 13.9 08/09/2023 13.0 07/13/2023 10.4 06/29/2023 11.5 06/14/2023 9.5 05/30/2023 10.4 05/18/2023 10.1 05/04/2023 10.4 04/20/2023 6.6 04/06/2023 13.0 03/29/2023 13.0 03/02/2023 4.6 02/22/2023 11.1 02/15/2023 10.4 Interpretation (MPA) (no units) Date Value 01/20/2025 Poorly defined region of restricted mobility in IgG and kappa lanes. Pattern is less well defined or fainter than typically seen in monoclonal gammopathy. This could represent either an atypical presentation of polyclonal immunoglobulins or the presence of a low level IgG kappa monoclonal gammopathy. If clinically indicated, urine monoclonal protein analysis and serum free light chain measurements are recommended to evaluate further for monoclonal gammopathy. Clinical correlation is necessary. Poorly definded region of restricted mobility in IgG and lambda lanes. Pattern is less well defined or fainter than typically seen in monoclonal gammopathy. This could represent either an atypical presentation of polyclonal immunoglobulins or the presence of a low level IgG lambda monoclonal gammopathy. If clinically indicated, urine monoclonal protein analysis and serum free light chain measurements are recommended to evaluate further for monoclonal gammopathy. Clinical correlation is necessary. 12/20/2024 There is an atypical restricted band present in the IgG and kappa regions. The location of the IgG kappa band suggests the presence of daratumumab, although one cannot rule out the possibility that this band represents a disease-related monoclonal protein. If clinically required, specific testing for daratumumab may be ordered to confirm the presence of the drug in this patient. 11/25/2024 Poorly defined region of restricted mobility in IgG and kappa lanes. Pattern is less well defined or fainter than typically seen in monoclonal gammopathy. This could represent either an atypical presentation of polyclonal immunoglobulins or the presence of a low level IgG kappa monoclonal gammopathy. If clinically indicated, urine monoclonal protein analysis and serum free light chain measurements are recommended to evaluate further for monoclonal gammopathy. Clinical correlation is necessary. 10/28/2024 Poorly defined region of restricted mobility in IgG and kappa lanes. Pattern is less well defined or fainter than typically seen in monoclonal gammopathy. This could represent either an atypical presentation of polyclonal immunoglobulins or the presence of a low level IgG kappa monoclonal gammopathy. If clinically indicated, urine monoclonal protein analysis and serum free light chain measurements are recommended to evaluate further for monoclonal gammopathy. Clinical correlation is necessary. 06/11/2024 Poorly defined region of restricted mobility in the lambda alejandro. Pattern is less well defined or fainter than typically seen in monoclonal gammopathy. This could represent either an atypical presentation of polyclonal immunoglobulins or the presence of a low level lambda containing monoclonal gammopathy. If clinically indicated, urine monoclonal protein analysis and serum free light chain measurements are recommended to evaluate further for monoclonal gammopathy. Clinical correlation is necessary. Imaging XR BONE SURVEY ROUTINE (Acc#[id number]) (Order [id number]) Kayley Dickinson ([id number]) Female 1935 12/25/2024 12:50 PM - Radiology, [place] IMPRESSION: Findings consistent with multiple myeloma as described DATE OF EXAM: Dec 25 2024 12:25PM PROCEDURE REASON: Multiple myeloma in remission (HCC) COMPARISON: Whole-body CT 02/11/2023 RESULT: Expansile lucent lesion in the left medial clavicle with chronic cortical irregularity is noted. Surrounding sclerosis may reflect posttreatment changes. No lytic lesion in the posterior right ninth rib is poorly appreciated radiographically. No additional lytic lesion or suspicious sclerotic lesion. S-shaped scoliosis of the thoracolumbar spine with multilevel degenerative changes. No compression deformity is seen. Bilateral breast implants are present. No acute radiographic abnormality in the chest or abdomen. Result History XR BONE SURVEY ROUTINE (Order #[id number]) on 12/25/2024 - Order - MRI 12/29/2022: demonstrating mild expansion and irregular cortical bone in medial left clavicle. - Bone scintography 01/05/2023: increased uptake in left sternoclavicular joint, and medial clavicle. - CT left clavicle/shoulder 01/11/2023: permeative lytic lesion with pathological fracture of left medial clavicle. Low-dose CT scan of the whole body (02/22/2023) 1. Stable expansile, lytic bone lesion with associated cortical destruction involving the medial left clavicle, corresponding with the site of recent biopsy. 2. There is a lytic lesion involving the posterior right ninth rib at the costovertebral joint with disruption of the posterior cortex. 3. No other lytic bone lesions identified. 4. 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 Correlation with prior outside studies, if available, would be helpful. This could be further evaluated with dedicated head CT. 5. Additional findings as above which are stable from the recent chest and abdominopelvic CT exams. Pathology: Image guided biopsy of the mid left clavicle (01/30/2023) FINAL DIAGNOSIS A. Lesion, left clavicular head, biopsy: - Plasma cell neoplasm (kappa). - See comment. KARISSA/sb/02/01/2023 Diagnosis Comment Histologic sections show fragments of blood clot associated with clusters of plasma cells. The plasma cells are intermediate sized, with abundant cytoplasm and round, eccentric nuclei with mature chromatin. Immunohistochemical stains have been performed with appropriately staining controls. The plasma cells are positive for CD138. On the stains for kappa or lambda they appear monotypic kappa. 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 Further classification of this process requires correlation with clinical, radiologic, and laboratory findings. Impression and Plan Cancer Staging No matching staging information was found for the patient. #multiple myeloma Cytogenetic risk category: Standard risk Frailty Score: 0 IMWG Response Criteria: Renal: Normal creatinine, clinically no evidence for renal dysfunction. Infectious diseases: No current infection, no need for prophylaxis Musculoskeletal: Chronic pain, satisfactorily controlled. Bone modifying therapy: zometa Venous thromboembolism risk: No need for DVT prophylaxis control counseling: Does not apply since patient is naturally postmenopausal for greater than 24 months or post hysterectomy or post bilateral oophorectomy Neurology: No neurologic symptoms Health maintenance discussed: Regular exercise and Appropriate diet Side effects from current medications: None Mrs. Dickinson is an 89-year-old female with excellent performance status who was recently diagnosed with a fracture of the left mid clavicle without evidence of trauma to the site. An image guided biopsy revealed plasma cell involvement and a initial protein electrophoresis demonstrated a monoclonal paraprotein 1.19 mg/dL. Cross-sectional imaging revealed no evidence of additional osseous disease. She continues on the AGNES regimen with excellent tolerance of treatment and performance status. Her intact monoclonal paraprotein has fluctuated; however, this is in the context of daratumumab treatment and an underlying CD5+ B-cell clone. Her total IgG level has normalized and there are no other indications of symptomatic or biochemical progression. Overall, she is likely at least achieved a VGPR and probably a CR. Her immunofixation remains negative. We will continue aspirin, acyclovir, and bone stabilizing therapy. Plan Summary: -Continue daratumumab monthly and lenalidomide (dexamethasone dropped based on Agnes protocol) with lenalidomide 10 mg day 1 through 21 of a 28-day cycle for now - XR bone survey done 12/25/2024 as detailed above. -Hold bone stabilizing treatment due to upcoming scheduled dental work -Continue acyclovir and aspirin -RTC in 8 weeks or sooner if needed Medical Decision Making: Medical Decision Making Level: 1 - N/A I spent a total of 35 minutes on the date of the service which included preparing to see the patient, completing clinical documentation, obtaining and/or reviewing separately obtained HPI, reviewing test results again and restrictions due to results, available treatment, signs and symptoms that warrant follow up, counseling and educating the patient/family/caregiver. ASSESSMENT/PLAN: 1. Multiple myeloma in remission (HCC) - ICD9: 203.01, ICD10: C90.01 (primary diagnosis) - CHEMO SCHEDULING 2. Pain of right hip - ICD9: 719.45, ICD10: M25.551 - MRI HIP WO IVCON RIGHT 3. Right leg swelling - ICD9: 729.81, ICD10: M79.89 - US DVT LOWER RIGHT Vince Freitas APRN.[employer] [place] [address] Email: documented in this encounter [facility] 01-22-2025 Note [facility] 01-06-2025 History of Present illness Narrative [facility] Refill Assessment Medication(s): Revlimid Reviewed OV note on 12/25- pt reports hip pain. Paraprotein labs do not demonstrate any evidence of disease progression. There is a mild normocytic anemia that has been persistent and is likely attributable to her treatment. She is in a VGPR at minimum with immunofixation likely reflecting the presence of daratumumab. 12/20 labs reviewed. Next clinic visit scheduled 01/23. Revlimid cycles (28DS: 21 on / 7 off) are as follows: C1D1 03/13/23 C16D1 05/02/24 - delayed d/t covid, approved by Tx team to resume C17D1 05/30/24 C18D1 07/01/24- delayed d/t infection/antibiotics x10d C19D1 07/29/24 C20D1 08/26/24 C21D1 09/23/24 C22D1 10/21/24 C23D1 11/18/24 C24D1 12/16/24 C25D1 01/13/25 C26D1 02/10/25 [facility] note: Pt's last survey was completed on 01/06/25. Next survey will be available on or after 06/16/25. Dispensing note: sending dosing calendar with shipment. ALLERGIES Allergen Reactions Sulfa (Sulfonamide * Swelling Adhesive Tape-Silic* Rash Patient's current medication list and adherence status to current therapy were reviewed by Specialty Pharmacy clinical pharmacist to identify any new drug interactions or non-compliance to therapy. Therapy continues to be appropriate for disease, patient response, and medical condition. Verification of therapeutic benefit and effectiveness with current therapy was completed. Adverse events, barriers in adherence, and side effects were assessed and addressed if applicable. Will proceed with refill with no changes in therapy - patient progressing towards achieving therapeutic goals based on medication-specific laboratory parameters, disease state markers and outcomes. Office/provider notes have been reviewed prior to dispensing the medication. Ramya Smith [facility] PharmD, [facility] Clinical Pharmacist, Oncology [facility] P: , F: Pool: P [facility] Pool #: [id number] Steam Finisher Assessment Patient confirmed: Yes Med/dose confirmed: Yes Supplies needed: No supplies needed Missed doses: No Estimated days supply on hand: 0 Next cycle/dose due: 01/13/25 (01/06 starts off week) Copay amount: 0 Copay form of payment: (n/a) Payment confirmed: (n/a) Delivery method: FedEx Signature required: Required ([facility], Medicaid, patient preference) Delivery address: [address] [place] [id number] Delivery date: 01/07/25 Questions or concerns for the pharmacist?: No Did you have any side effects believed to be related to this medication, that resulted in hospitalization?: No Current Outpatient Medications on File Prior to Visit Medication Sig REVLIMID 10 mg capsule Take 1 capsule (10 MG) by mouth daily at bedtime for 21 days on, followed by 7 days off. levothyroxine (SYNTHROID) 50 mcg tablet Take 1 tablet by mouth once daily. Take on empty stomach. For Thyroid. omeprazole (PRILOSEC) 40 mg capsule Take 1 capsule by mouth daily before breakfast. 1/2 hr before meal. pravastatin (PRAVACHOL) 80 mg tablet Take 1 tablet by mouth once daily. acyclovir (ZOVIRAX) 400 mg tablet Take 1 tablet by mouth once daily. ondansetron (ZOFRAN) 8 mg tablet Take 1 tablet by mouth once daily as needed for nausea/vomiting. cyanocobalamin (VITAMIN B-12) 500 mcg tablet Take 1 tablet by mouth once daily. FERROUS SULFATE ORAL Take 1 tablet by mouth. aspirin, enteric coated (ASPIRIN, ENTERIC COATED) 81 mg EC tablet Take 81 mg by mouth. omega-3 acid ethyl esters (LOVAZA) 1 gram capsule Take 1 g by mouth. calcium carbonate-vitamin D3 (CALTRATE WITH VITAMIN D3) 600 mg(1,500mg) -800 unit tab Take 1 tablet by mouth twice daily. No current facility-administered medications on file prior to visit. [facility] SPECIAL[facility] CLINICAL ASSESSMENT - HEMATOLOGY ONCOLOGY V6: Ivent complete: No Assessment to use: Refill Date of influenza vaccination reminder: 04/01/2024 Date of most recent vaccination assessment: 04/01/2024 Treatment Plan Information: Diagnosis: Multiple myeloma - newly diagnosed Previous treatment(s): none, newly diagnosed Treatment plan: Revlimid (lenalidomide) + daratumumab + dexamethasone Starting Dose/Titration: Take 1 capsule (10mg) by mouth daily at bedtime for 21 days on, 7 days off. - Renal dose reduction required?: yes - CrCl 47mL/min, usual dose 25mg: PI recommends DR to 10mg daily, may increase to 15mg after 2 cycles if tolerating; dose reduced to 10 mg. Administration: - Take with or without food - Take at the same time each day with water; swallow whole Warnings: include but are not limited to - CONGRESSIONAL AIDE effects (dizziness, fatigue) - Tumor Flare, TLS - Venous and arterial thromboembolism (DVT, PE, TN, stroke) - BBW - Hematologic toxicity (neutropenia and thrombocytopenia) - BBW - Embryo- toxicity - BBW - No blood (or semen) donations during and 4 weeks post discontinuation Adverse reactions: include but are not limited to - Hepatotoxicity - Peripheral edema - Derm rxns (pruritis, skin rash, xeroderma) - Diarrhea > constipation; decrease appetite, abdominal pain - N/V (min to low) - BMS (neutropenia, thrombocytopenia, anemia) - Fatigue, asthenia, arthralgia, headache; back pain, muscle cramps/spasms Monitoring: - CBC with diff (MCL - weekly C1, Q2 weeks C2-4, then monthly; MDS - weekly x8 weeks, then at least monthly; MM - weekly x2 cycles; Q2 weeks C3, then monthly; Follicular and marginal zone lymphoma - weekly x3 weeks, Q2 weeks C2-4, then monthly) - sCr, LFTs (periodically) - TSH (baseline, then every 2-3 months) - ECG when clinically indicated - S/S infection, bruising, bleeding, hepatoxocity, 2ndry malignancy, thromboembolism, derm toxicity, TLS - test (for females of reproductive potential) - Hep B screening Drug-Drug Interactions: no interactions identified by Jennifer Baseline: - CBCD 02/22/23 - TSH 1.680 on 02/15/23 - CrCl 47mL/min on 02/22/23 - Hep B screening 02/23/23 Est. Tx Plan Start Date: No information available Estimated Start Date Info: Per Dr. Voss's discretion MDO to confirm DR for current CrCl - dose adjusted to 10 mg daily. Est. Estimated Treatment Duration: Continue until disease progression or unacceptable toxicity. Ramya Smith RPh [facility] SPECIALTY CLINICAL ASSESSMENT - CELGENE REMS HEADER V4 Patient is not a female of reproductive potential Lenalidomide - Patient Not of Reproductive Potential V3 All boxes and spaces must be marked or filled in during counseling with the patient for every prescription. Ramya Smith RPh 11:13 AM January 06, 2025 Addendum January 06, 2025 11:58 AM : All REMS components have been verified by clinical pharmacist and patient is (or continues to be) an appropriate candidate for treatment. Confirm prescription contains authorization number and patient risk category Confirm order is for 28 day supply or less Confirm if refill, there are 7 days or less remaining of therapy on the existing prescription. Confirm order still appropriate to fill 30 days from authorization date For risk category females of reproductive potential: 7 days from last test Drug Interaction and Counseling Checklist Completed Verify all items checked as appropriate in the checklist Confirmation number obtained on same date order will be shipped and documented in the checklist accordingly [facility] flag resolved after confirmation number obtained Medication will be shipped overnight and within 24 hours of receiving confirmation number Confirmation numbers was obtained the same date the order is shipping out Signature required to confirm delivery Samra Wilson PharmD Clinical Pharmacist, Oncology [facility] P: , F Pool: P [facility] Pool #: [id number] documented in this encounter [facility] 01-06-2025 Note [facility] 01-06-2025 Note [facility] 01-02-2025 Telephone encounter Note Pt will be due for a refill of Revlimid soon. If therapy is being continued, please send a refill via eRx to [facility]. To avoid any delays in processing, please make sure that the comments section of the Rx includes: - Authorization # - Patient risk category Thank you in advance for your assistance! Samra Wilson PharmD Clinical Pharmacist, Oncology [facility] P: , F Pool: P [facility] Pool #: [id number] [facility] 01-02-2025 Miscellaneous Notes Pt will be due for a refill of Revlimid soon. If therapy is being continued, please send a refill via eRx to [facility]. To avoid any delays in processing, please make sure that the comments section of the Rx includes: - Authorization # - Patient risk category Thank you in advance for your assistance! Samra Wilson PharmD Clinical Pharmacist, Oncology [facility] P: , F Pool: P [facility] Pool #: [id number] documented in this encounter [facility] 12-25-2024 History of Present illness Narrative Radiology Service Progress Note PATIENT NAME: Kayley Dickinson DATE OF SERVICE: December 25, 2024 TIME: 12:18 PM PATIENT IDENTITY VERIFICATION COMPLETED USING TWO (2) IDENTIFIERS: Name and Date of confirmed by patient verbally. FALL SCREENING: Has the patient had 2 falls in the last year or 1 fall with injury or currently using an Ambulatory Assistive Device (Walker, Cane, Wheelchair, Crutches, etc.)? No PATIENT GENDER DATA: Assigned female at . status: : No status: NO. PATIENT RELEVANT IMPLANT DATA REVIEWED: Not Applicable PATIENT PRESENTS WITH AN IMPLANTABLE OR ATTACHED RIVER EXPEDITION GUIDE: No RADIOLOGY DEPARTMENT: General X-ray: Exam(s) Completed: Bone Survey PERIPHERAL IV DATA: Not applicable SIGNED BY: RT Ellen(R) December 25, 2024 12:18 PM documented in this encounter [facility] 12-25-2024 Note [facility] 12-25-2024 Note [facility] 12-25-2024 History of Present illness Narrative Images from the original note were not included. (Elements copied from my note dated 2023), have been reviewed and updated where appropriate, and all reflect current assessment and medical decision making during today's encounter, June 14, 2024) [facility] Plasma Cell Disorder Clinic Reason for visit: follow up myeloma. Baseline assessment on initial diagnosis date 2022 Cancer Staging No matching staging information was found for the patient. Symptomatic multiple myeloma, I Related Organ or Tissue Involvement (CRAB) or other Myeloma Defining Event (MDE): Bone disease: At least one lytic bone lesion on XR or CT if BMPC >=10%, at least 2 bone lesions on XR or CT if BMPC<10%, location of lytic lesion(s): Left clavicular head Antecedent plasma cell dyscrasia: No Myeloma FISH panel: Trisomy 15, trisomy 11 Cytogenetics: 46, XX LDH: 175 ISS stage: ISS Stage II Monoclonal proteins at diagnosis: Serum M-spike: 1.19 gm/dL, Involved serum free light chains: 35.2 mg/L, and Uninvolved serum free light chains: 10.4 mg/L Total immunoglobulins at diagnosis: IgG = 1980 mg/dl, IgA = 58 mg/dl, IgM = 38 mg/dl Bone marrow plasma cell infiltration: 10-15% plasma cells in the marrow Systemic treatment and disease course Start 02/23/2023-current Daratumumab, lenalidomide (per AGNES) - Myeloma response according to: International uniform response criteria, Durie et al. Leukemia 20: 1467-73, 2006 and Lew et al. ERRATUM in Leukemia 21:1134, 2007. Update in Debra SV et al. Blood 117: 0517-9507, 2011 Local treatments (radiation, surgery, kyphoplasty) 03/02/2023 to 03/08/2023 The Left clavicle received a total dose of 2000 cGy in 5 fractions at 400 cGy/fraction using 6 MV photons with Wedged Pair technique. History of present illness Mrs. Dickinson is an 87-year-old female with past medical history that includes hypothyroidism, GERD, hyperlipidemia, prediabetes, and possible coronary artery disease who was initially evaluated for left mid clavicular pain and swelling at an urgent care facility on 12/26/2022. A 2 view x-ray of the clavicle obtained on that occasion did not reveal evidence of an osseous abnormality. Of note, the patient did not experience antecedent trauma to the clavicle prior to that visit. He was initiated on Medrol Dosepak at the time of discharge. Follow-up MRI of the clavicle on 12/29/2022 demonstrated mild expansion and irregular cortical bone in the medial left clavicle. A bone scintigraphy study on 01/05/2023 demonstrated increased uptake in the left sternoclavicular joint medial clavicle, and a CT of the left clavicle and shoulder on 01/11/2023 demonstrated a permeative lytic lesion with a pathologic fracture of the left medial clavicle. The patient was evaluated in our orthopedic oncology clinic on 01/17/2023. CT scans of the chest abdomen and pelvis did not demonstrate any other evidence of overt osseous disease but did demonstrate hepatic hypodensities for which an MRI of the liver was suggested. An image guided biopsy left clavicle was performed demonstrated sheets of plasma cells. Currently paraprotein work-up prior to the current visit is a serum protein electrophoresis demonstrating a monoclonal spike of 1.19 mg/dL and a spot urine protein electrophoresis that does demonstrate a monoclonal paraprotein. The patient has no evidence of underlying bone marrow involvement in terms of her CBC which is entirely normal. There is no evidence of renal dysfunction or hypercalcemia. She denies a personal history of other pathologic fractures. She denies recent fevers, chills, night sweats, nausea, vomiting, diarrhea, voice changes, new rash, or weight loss. She has no personal history of malignancy and no strong family history of thrombophilia, bleeding diathesis, or hematologic cancer. Interim Updates: 03/31/2023: The returns evaluation management of symptomatic myeloma. She denies fevers, chills, night sweat nausea, vomiting, diarrhea, and peripheral neuropathy. She continues on aspirin and acyclovir. Pleated radiation therapy to the left clavicle with no residual pain at the site of the previous fracture. Her paraprotein labs demonstrate normalization of her involved serum free light chain and a decrease in her intact monoclonal paraprotein by approximately 50%. There is no evidence of renal dysfunction or hypercalcemia. Whole body low dose CT scan (see below) demonstrates 1/9 rib lytic lesion in addition to the known clavicular lesion. 05/05/2023: Mrs Dickinson is seen for a scheduled follow up visit. She is accompanied by her . Overall, she reports feeling well. Per her account, she has no pain in the area of her L clavicle. Reports two episodes of mild epistaxis over past month. States she has seen ENT in [place] and was told the recurrent nose bleeds were due to the anatomy of the Right side of her nose. Per patient, she is occasionally constipated and eating prunes usually relieves the constipation. Confirms compliance with Revlimid dosing and schedule. 05/31/23: Mrs. Dickinson is seen for a scheduled follow up visit, accompanied by her . She reports overall feeling well. She woke up this morning with a bruise just to the right of the sternoclavicular junction. She denies fevers, chills, night sweats, nausea, vomiting and diarrhea. She denies new rashes. Her paraprotein labs from last visit demonstrate a preserved free light chain ratio and a fluctuating intact monoclonal paraprotein by protein electrophoresis. 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 Her IgG level has normalized. She has very mild leukopenia and thrombocytopenia. There is no evidence of worsening anemia. There is no evidence of hypercalcemia. Continues on aspirin for thromboprophylaxis and acyclovir for VZV prophylaxis. Performance status is unchanged with the initiation of therapy she notes she is able to complete all of her ADLs and IADLs independently. 07/14/23: Constipation, the patient denies fevers, chills, night sweats, nausea, vomiting, diarrhea, and significant weight changes. 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 Serologically, her immunofixation demonstrates what is likely the presence of daratumumab. Her light chains remain within normal range with a normalized ratio. Her low level intact monoclonal paraprotein may represent daratumumab. She continues to take aspirin and acyclovir as directed. She complains of no new areas of bony pain. 12/01/23: At the present visit, patient denies fevers, chills, night, nausea, vomiting, diarrhea, significantly. She estimates that she wakes at 5 AM every day and is able to work for several hours before becoming tired in the early afternoon. She has not noticed any lymphadenopathy. She has not noticed any early satiety. Paraprotein labs indicate a complete remission. She remains on lenalidomide 10 mg daily day 1 through 21 of a 28-day cycle and monthly daratumumab. We have taken dexamethasone out of her treatment plan. She also receives monthly zoledronic acid. There is no evidence of renal dysfunction, hypercalcemia, or new onset cytopenias. 12/29/23: pt called in last week for brb from rectum. Has known hemorrhoids. Issue subsided without additional interventions. H/h stable. Denies other symptoms. 01/26/24: Mrs. Dickinson returns for follow up. Continues to tolerate treatment well. She tells me she is recommended to have a dental procedure where they will take some tissue from her upper gum and put it into an implant on her lower jaw. She said her dentist wanted clearance from Dr. Beatty and will be sending the information to him to review. She wont be scheduled until she has an ok from our team. I advised her this will need to be reviewed once we have the details of what they are planning. In prep for this we will hold zometa until we know definitely if she will have this done or not. Started revlimid 01/15. 02/21/24: The patient here for follows up and tolerating the treatment well. Her lab workup from 02/19/24 shows an atypical region of restricted mobility on SPEP and no M protein on immunofixation. K/L ratio is also normal. IgG is 630 as well. CBC still shows mild pancytopenia. She denies recent fevers, chills, night sweats, nausea, vomiting, diarrhea, voice changes, new rash, or weight loss. She has an implant of the tooth planned for April 03 2024. Was counseled on keeping an eye out on the fatigue 06/14/24: In the interim since her last visit, the patient continued to receive daratumumab based maintenance. Today is C18D1. Most recent paraprotein labs reveal what is likely a negative immunofixation, completely normal serum free light chains, immune paresis, and essentially normal hemoglobin, and persistent but stable thrombocytopenia and lymphopenia. 08/09/24: The patient denies fevers, chills, night sweats nausea vomiting and new rash. Her diarrhea has improved dramatically since her recent visit. Continues lenalidomide 10 mg days 1-21 of a 28 day cycle aspirin currently. She is receiving once monthly daratumumab. Paraprotein labs indicate a sustained serologic VGPR at minimum and likely a complete remission. 12/25/24: The present time, the patient denies nausea, vomiting, diarrhea,. She notes some right-sided hip pain is worse with activity. She denies radiculopathy. She denies loss of bowel or bladder continence. Paraprotein labs do not demonstrate any evidence of disease progression. There is a mild normocytic anemia that has been persistent and is likely attributable to her treatment. She is in a VGPR at minimum with immunofixation likely reflecting the presence of daratumumab. Review of systems General: No fever , No chills, and No night sweats HEENT: No lumps, no difficulty chewing or swallowing, no enlarging tongue, no tooth aches. Musculoskeletal: no current pain Hematological: No bleeding or easy bruising. Lymphatic / Immune system: No lymph node enlargement or infection. Cardiovascular: No orthopnea, no dyspnea, no chest pain, no leg edema, no palpitations. Pulmonary: No dyspnea, no wheezing, no cough. Gastrointestinal: see HPI. No nausea, vomitting, diarrhea, constipation, abdominal pain, or blood in stool. PAST MEDICAL HISTORY Diagnosis Date Advance directive discussed with patient 02/25/2022 Discussed 02/2022 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 rich plaque 03/31/2019 Current use of proton pump inhibitor 07/30/2019 Elevated fasting blood sugar 03/29/2019 GERD without esophagitis 03/29/2019 High cholesterol History of 2019 novel coronavirus disease (COVID-19) 09/07/202202/2022 History of squamous cell carcinoma of skin 03/31/2019 Right side of nose Hypothyroidism, acquired 03/29/[address] 02/25/2022 DPA: Micaela () Medicare annual wellness visit, subsequent 08/17/2020 Medical B eligibilty date 11/21/2002 Last done: 02/11/2020 Mixed hyperglyceridemia 03/29/2019 Multiple myeloma (HCC) 02/13/2023 Osteopenia of spine 03/29/2019 PAST SURGICAL HISTORY Procedure Laterality Date CATARACT EXTRACTION HX Bilateral 2017 COLONOSCOPY 10/25/2021 repeat only if needed HYSTERECTOMY partial - age 40 MASTECTOMY, SIMPLE, COMPLETE Bilateral 1977 with implants for fibrocystic disease (?) NUCLEAR STRESS TEST (WT<440#) (UNION) 08/09/2013 old records: negative PAST SURGICAL HISTORY OF 1995 breast implants Allergies / intolerances ALLERGIES Allergen Reactions Sulfa (Sulfonamide * Swelling Adhesive Tape-Silic* Rash Medications REVLIMID 10 mg capsule Take 1 capsule (10 MG) by mouth daily at bedtime for 21 days on, followed by 7 days off. levothyroxine (SYNTHROID) 50 mcg tablet Take 1 tablet by mouth once daily. Take on empty stomach. For Thyroid. omeprazole (PRILOSEC) 40 mg capsule Take 1 capsule by mouth daily before breakfast. 1/2 hr before meal. pravastatin (PRAVACHOL) 80 mg tablet Take 1 tablet by mouth once daily. acyclovir (ZOVIRAX) 400 mg tablet Take 1 tablet by mouth once daily. ondansetron (ZOFRAN) 8 mg tablet Take 1 tablet by mouth once daily as needed for nausea/vomiting. cyanocobalamin (VITAMIN B-12) 500 mcg tablet Take 1 tablet by mouth once daily. FERROUS SULFATE ORAL Take 1 tablet by mouth. aspirin, enteric coated (ASPIRIN, ENTERIC COATED) 81 mg EC tablet Take 81 mg by mouth. omega-3 acid ethyl esters (LOVAZA) 1 gram capsule Take 1 g by mouth. calcium carbonate-vitamin D3 (CALTRATE WITH VITAMIN D3) 600 mg(1,500mg) -800 unit tab Take 1 tablet by mouth twice daily. Social History Tobacco Use Smoking status: Never Smokeless tobacco: Never Vaping Use Vaping status: Never Used Substance Use Topics Alcohol use: Not Currently Drug use: Not Currently FAMILY HISTORY Problem Relation Age of Onset Heart Failure Mother Diabetes Sister Hyperlipidemia Sister Thyroid Sister Breast Cancer Maternal Grandmother Diabetes Daughter Hyperlipidemia Sister Alzheimer's Disease No Family History Colon Cancer No Family History Prostate Cancer No Family History Ovarian cancer No Family History Uterine Cancer No Family History Coronary Artery Disease No Family History Hypertension No Family History Kidney Disease No Family History Seizures No Family History Stroke No Family History Physical examination BP 145/56 Pulse 62 Temp 36.5 C (97.7 F) (Temporal) Resp 16 Wt 51 kg (112 lb 7 oz) SpO2 98% BMI 20.96 kg/m ECOG PS: 1- Restricted in physically strenuous activity. Carries out light duty. General appearance: Well appearing, alert, in no acute distress, well-hydrated, well nourished. HEENT: No lumps, no macroglossia, no icterus. Mucous membranes pink. Neck: Supple, no adenopathy Lungs: even chest rise and fall. Extremities: No deformities, edema. Laboratory tests WBC (k/uL) Date Value 12/20/2024 3.01 11/25/2024 3.35 10/28/2024 3.29 10/04/2024 3.45 09/02/2024 3.61 08/05/2024 3.39 07/08/2024 3.61 06/11/2024 3.46 05/14/2024 3.45 04/15/2024 3.74 09/06/2021 6.85 03/15/2021 7.83 02/04/2021 6.15 01/31/2020 5.74 Abs Neut (ANC) (k/uL) Date Value 09/06/2021 4.61 03/15/2021 5.08 02/04/2021 3.89 01/31/2020 3.68 Abs Neut (k/uL) Date Value 12/20/2024 1.59 11/25/2024 2.08 10/28/2024 2.13 10/04/2024 2.09 09/02/2024 2.35 08/05/2024 2.17 07/08/2024 2.46 06/11/2024 2.20 05/14/2024 2.18 04/15/2024 2.79 Hemoglobin (g/dL) Date Value 12/20/2024 11.7 11/25/2024 11.5 10/28/2024 11.8 10/04/2024 11.9 09/02/2024 11.9 08/05/2024 11.1 07/08/2024 10.7 06/11/2024 11.7 05/14/2024 11.3 04/15/2024 11.8 09/06/2021 14.0 03/15/2021 14.0 02/04/2021 13.3 01/31/2020 13.3 Platelet Count (k/uL) Date Value 12/20/2024 114 11/25/2024 102 10/28/2024 99 10/04/2024 84 09/02/2024 106 08/05/2024 112 07/08/2024 142 06/11/2024 86 05/14/2024 92 04/15/2024 107 09/06/2021 157 03/15/2021 173 02/04/2021 148 01/31/2020 168 Glucose (mg/dL) Date Value 12/20/2024 109 11/25/2024 96 10/28/2024 88 10/04/2024 118 09/02/2024 94 08/05/2024 126 07/08/2024 91 06/11/2024 107 05/14/2024 104 04/15/2024 112 02/04/2021 98 01/31/2020 90 Creatinine (mg/dL) Date Value 12/20/2024 0.91 11/25/2024 0.86 10/28/2024 0.91 10/04/2024 0.80 09/02/2024 0.96 08/05/2024 0.91 07/08/2024 0.91 06/11/2024 1.00 05/14/2024 0.85 04/15/2024 0.91 02/04/2021 0.72 01/31/2020 0.70 Calcium (mg/dL) Date Value 02/04/2021 9.1 01/31/2020 9.5 Calcium, Total (mg/dL) Date Value 12/20/2024 9.3 11/25/2024 9.3 10/28/2024 9.6 10/04/2024 8.8 09/02/2024 9.8 08/05/2024 9.4 07/08/2024 9.2 06/11/2024 9.1 05/14/2024 8.8 04/15/2024 9.1 M-Protein Concentration (g/dL) Date Value 12/20/2024 0.00 11/25/2024 0.00 10/28/2024 0.00 10/04/2024 0.00 09/02/2024 0.00 08/05/2024 0.00 07/08/2024 0.00 06/11/2024 0.00 05/14/2024 0.00 04/15/2024 0.00 03/19/2024 0.00 02/19/2024 0.00 01/23/2024 0.16 11/28/2023 0.15 10/31/2023 0.17 10/05/2023 0.19 09/06/2023 0.24 08/09/2023 0.29 07/13/2023 0.31 06/29/2023 0.33 06/14/2023 0.40 05/30/2023 0.39 05/18/2023 0.46 05/04/2023 0.06 04/20/2023 0.13 04/06/2023 0.58 03/29/2023 0.11 03/02/2023 1.20 02/22/2023 1.35 02/15/2023 1.39 01/17/2023 1.19 [place] Free, Serum Date Value 12/20/2024 12.7 mg/L 11/25/2024 13.0 mg/L 10/28/2024 12.3 mg/L 10/04/2024 14.1 mg/L 09/02/2024 16.4 mg/L 08/05/2024 15.8 mg/L 07/08/2024 13.5 mg/L 06/11/2024 15.0 mg/L 05/14/2024 17.0 mg/L 04/15/2024 13.3 mg/L 03/19/2024 17.1 mg/L 02/19/2024 16.0 mg/L 01/23/2024 16.7 mg/L 11/28/2023 17.3 mg/L 10/31/2023 15.6 mg/L 10/05/2023 16.2 mg/L 09/06/2023 15.5 mg/L 08/09/2023 16.0 mg/L 07/13/2023 Comment: Unable to assay. Specimen hemolyzed. Rarely, increased serum free light chains levels may not be detected or accurately quantified due to prozone phenomenon or in high viscosity samples using this immunoturbidimetric assay. Correlation with other laboratory results and clinical findings is recommended. The [place] Free Light Chain was performed using the Binding Site Optilite immunoturbidimetric method. Result obtained with different assay methods or kits cannot be used interchangeably. 06/29/2023 21.2 mg/L 06/14/2023 18.6 mg/L 05/30/2023 21.7 mg/L 05/18/2023 20.8 mg/L 05/04/2023 20.8 mg/L 04/20/2023 17.7 mg/L 04/06/2023 21.9 mg/L 03/29/2023 21.4 mg/L 03/02/2023 21.3 mg/L 02/22/2023 30.5 mg/L 02/15/2023 35.2 mg/L [place] Free, Serum (mg/L) Date Value 12/20/2024 14.1 11/25/2024 14.2 10/28/2024 15.2 10/04/2024 15.3 09/02/2024 15.7 08/05/2024 18.6 07/08/2024 14.5 06/11/2024 16.3 05/14/2024 17.1 04/15/2024 14.2 03/19/2024 18.2 02/19/2024 19.4 01/23/2024 18.4 11/28/2023 16.8 10/31/2023 15.8 10/05/2023 14.7 09/06/2023 13.9 08/09/2023 13.0 07/13/2023 10.4 06/29/2023 11.5 06/14/2023 9.5 05/30/2023 10.4 05/18/2023 10.1 05/04/2023 10.4 04/20/2023 6.6 04/06/2023 13.0 03/29/2023 13.0 03/02/2023 4.6 02/22/2023 11.1 02/15/2023 10.4 Interpretation (MPA) (no units) Date Value 12/20/2024 There is an atypical restricted band present in the IgG and kappa regions. The location of the IgG kappa band suggests the presence of daratumumab, although one cannot rule out the possibility that this band represents a disease-related monoclonal protein. If clinically required, specific testing for daratumumab may be ordered to confirm the presence of the drug in this patient. 11/25/2024 Poorly defined region of restricted mobility in IgG and kappa lanes. Pattern is less well defined or fainter than typically seen in monoclonal gammopathy. This could represent either an atypical presentation of polyclonal immunoglobulins or the presence of a low level IgG kappa monoclonal gammopathy. If clinically indicated, urine monoclonal protein analysis and serum free light chain measurements are recommended to evaluate further for monoclonal gammopathy. Clinical correlation is necessary. 10/28/2024 Poorly defined region of restricted mobility in IgG and kappa lanes. Pattern is less well defined or fainter than typically seen in monoclonal gammopathy. This could represent either an atypical presentation of polyclonal immunoglobulins or the presence of a low level IgG kappa monoclonal gammopathy. If clinically indicated, urine monoclonal protein analysis and serum free light chain measurements are recommended to evaluate further for monoclonal gammopathy. Clinical correlation is necessary. 06/11/2024 Poorly defined region of restricted mobility in the lambda alejandro. Pattern is less well defined or fainter than typically seen in monoclonal gammopathy. This could represent either an atypical presentation of polyclonal immunoglobulins or the presence of a low level lambda containing monoclonal gammopathy. If clinically indicated, urine monoclonal protein analysis and serum free light chain measurements are recommended to evaluate further for monoclonal gammopathy. Clinical correlation is necessary. 04/15/2024 There is a faint band in the IgG and kappa lanes. The patient is receiving a therapeutic monoclonal antibody, for which the electrophoretic properties have not been well-defined. Cannot exclude the possibility that this band represents a therapeutic monoclonal antibody rather than an IgG kappa paraprotein. Recommend correlation with serum free light chain and urine monoclonal protein analysis. Imaging - MRI 12/29/2022: demonstrating mild expansion and irregular cortical bone in medial left clavicle. - Bone scintography 01/05/2023: increased uptake in left sternoclavicular joint, and medial clavicle. - CT left clavicle/shoulder 01/11/2023: permeative lytic lesion with pathological fracture of left medial clavicle. Low-dose CT scan of the whole body (02/22/2023) 1. Stable expansile, lytic bone lesion with associated cortical destruction involving the medial left clavicle, corresponding with the site of recent biopsy. 2. There is a lytic lesion involving the posterior right ninth rib at the costovertebral joint with disruption of the posterior cortex. 3. No other lytic bone lesions identified. 4. 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 Correlation with prior outside studies, if available, would be helpful. This could be further evaluated with dedicated head CT. 5. Additional findings as above which are stable from the recent chest and abdominopelvic CT exams. Pathology: Image guided biopsy of the mid left clavicle (01/30/2023) FINAL DIAGNOSIS A. Lesion, left clavicular head, biopsy: - Plasma cell neoplasm (kappa). - See comment. CV/mm/02/01/2023 Diagnosis Comment Histologic sections show fragments of blood clot associated with clusters of plasma cells. The plasma cells are intermediate sized, with abundant cytoplasm and round, eccentric nuclei with mature chromatin. Immunohistochemical stains have been performed with appropriately staining controls. The plasma cells are positive for CD138. On the stains for kappa or lambda they appear monotypic kappa. 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 Further classification of this process requires correlation with clinical, radiologic, and laboratory findings. Impression and Plan Cancer Staging No matching staging information was found for the patient. #multiple myeloma Cytogenetic risk category: Standard risk Frailty Score: 0 IMWG Response Criteria: Renal: Normal creatinine, clinically no evidence for renal dysfunction. Infectious diseases: No current infection, no need for prophylaxis Musculoskeletal: Chronic pain, satisfactorily controlled. Bone modifying therapy: zometa Venous thromboembolism risk: No need for DVT prophylaxis control counseling: Does not apply since patient is naturally postmenopausal for greater than 24 months or post hysterectomy or post bilateral oophorectomy Neurology: No neurologic symptoms Health maintenance discussed: Regular exercise and Appropriate diet Side effects from current medications: None Mrs. Dickinson is an 89-year-old female with excellent performance status who was recently diagnosed with a fracture of the left mid clavicle without evidence of trauma to the site. An image guided biopsy revealed plasma cell involvement and a initial protein electrophoresis demonstrated a monoclonal paraprotein 1.19 mg/dL. Cross-sectional imaging revealed no evidence of additional osseous disease. She continues on the AGNES regimen with excellent tolerance of treatment and performance status. Her intact monoclonal paraprotein has fluctuated; however, this is in the context of daratumumab treatment and an underlying CD5+ B-cell clone. Her total IgG level has normalized and there are no other indications of symptomatic or biochemical progression. Overall, she is likely at least achieved a VGPR and probably a CR. Her immunofixation remains negative. We will continue aspirin, acyclovir, and bone stabilizing therapy. Plan Summary: -Continue daratumumab monthly and lenalidomide (dexamethasone dropped based on Agnes protocol) with lenalidomide 10 mg day 1 through 21 of a 28-day cycle for now - XR bone survey today -No further dexamethasone with treatment -Continues bone stabilizing therapy with zometa today -Continue acyclovir and aspirin -RTC in 8 weeks Jaime Beatty MD Medical Decision Making: Problems: High: Illness/injury w/ threat to life/body function Data: Unique test result(s) reviewed: 3+ Unique test(s) ordered: 3+ Risk: High: High risk from testing/treatment Medical Decision Making Level: 5 - High Additional intake questions: Has the patient had fever, nausea, vomiting, diarrhea, constipation, fatigue for > 1 week? No Does the patient have a decreased appetite? No Does patient have any new or increased numbness or tingling of extremities? No Is patient interested in fertility information? NA Does patient need any prescription refills? No Does patient have an advanced directive in place? Yes, no copy found in [facility] Patient referred to [facility] documented in this encounter [facility] 12-25-2024 Note [facility] 12-10-2024 Note [facility] 12-10-2024 Note [facility] 12-10-2024 Telephone encounter Note Spoke with patient, aware Revlimid signed today and [facility] will be contacting her to schedule delivery. JUAN Felix, RN Specialty Nurse Cultural Anthropology Professor [facility] 12-10-2024 Miscellaneous Notes Spoke with patient, aware Revlimid signed today and [facility] will be contacting her to schedule delivery. JUAN Felix, RN Specialty Nurse Cultural Anthropology Professor Kayley Dickinson is calling Jaime Beatty MD today regarding 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 (Revlimid refills) Patient has been identified by name and birthdate. Patient called stating that she wants to know why she has not received her Revlimid refills yet. She is a lillte anxious. Requesting response back: call at home [phone] (home) [phone] (cell) Grayson Malone December 10, 2024 documented in this encounter [facility] 12-10-2024 Telephone encounter Note Kayley Brian Mattkeith is calling Jaime Beatty MD today regarding 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 (Revlimid refills) Patient has been identified by name and birthdate. Patient called stating that she wants to know why she has not received her Revlimid refills yet. She is a lillte anxious. Requesting response back: call at home [phone] (home) [phone] (cell) Grayson Malone December 10, 2024 [facility] 12-03-2024 Telephone encounter Note The patient has been identified by name and date of : Yes Caregiver verified no other encounters exist for this prescription request: Yes Caregiver confirmed with patient/requestor that no other refills are due, in the near future, with this provider at this time: Yes The last office visit in the department: 09/11/2024 Does the patient have a future office visit with this provider/department: Yes 03/11/2025 Requested Prescriptions Pending Prescriptions Disp Refills levothyroxine (SYNTHROID) 50 mcg tablet 90 tablet 1 Sig: Take 1 tablet by mouth once daily. Take on empty stomach. For Thyroid. omeprazole (PRILOSEC) 40 mg capsule 90 capsule 1 Sig: Take 1 capsule by mouth daily before breakfast. 1/2 hr before meal. Kalee Barnhart LPN December 03, 2024 8:55 AM [facility] 12-03-2024 Miscellaneous Notes The patient has been identified by name and date of : Yes Caregiver verified no other encounters exist for this prescription request: Yes Caregiver confirmed with patient/requestor that no other refills are due, in the near future, with this provider at this time: Yes The last office visit in the department: 09/11/2024 Does the patient have a future office visit with this provider/department: Yes 03/11/2025 Requested Prescriptions Pending Prescriptions Disp Refills levothyroxine (SYNTHROID) 50 mcg tablet 90 tablet 1 Sig: Take 1 tablet by mouth once daily. Take on empty stomach. For Thyroid. omeprazole (PRILOSEC) 40 mg capsule 90 capsule 1 Sig: Take 1 capsule by mouth daily before breakfast. 1/2 hr before meal. Kalee Barnhart LPN December 03, 2024 8:55 AM documented in this encounter [facility] 12-02-2024 Telephone encounter Note Patient was confused why she was scheduled for 04/18. Let patient know that she is still on monthly Daratumumab, and she is scheduled monthly through March. Patient verbalized understanding. JUAN Felix, RN Specialty Nurse Cultural Anthropology Professor [facility] 12-02-2024 Miscellaneous Notes Patient was confused why she was scheduled for 04/18. Let patient know that she is still on monthly Daratumumab, and she is scheduled monthly through March. Patient verbalized understanding. JUAN Felix, RN Specialty Nurse Cultural Anthropology Professor Kayley Dickinson is calling Vince Freitas APRN.CNP today regarding 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 (Explain Chemo Scheduling) Patient has been identified by name and birthdate. Patient called stating that she does not understand about chemo being scheduled and need someone to call her to explain what's going on. Requesting response back: call at home [phone] (home) [phone] (cell) Grayson Malone December 02, 2024 documented in this encounter [facility] 12-02-2024 Telephone encounter Note Kayley Brian Em is calling Vince Freitas APRN.[employer] today regarding 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 (Explain Chemo Scheduling) Patient has been identified by name and birthdate. Patient called stating that she does not understand about chemo being scheduled and need someone to call her to explain what's going on. Requesting response back: call at home [phone] (home) [phone] (cell) Grayson Malone December 02, 2024 [facility] 11-29-2024 Note [facility] 11-29-2024 History of Present illness Narrative Additional intake questions: Has the patient had fever, nausea, vomiting, diarrhea, constipation, fatigue for > 1 week? Yes, nausea, vomiting, diarrhea ( 0 times in last 24 hours) was all on monday, fatigue, and Provider Notified Does the patient have a decreased appetite? No Does patient have any new or increased numbness or tingling of extremities? No Is patient interested in fertility information? NA Does patient need any prescription refills? No Does patient have an advanced directive in place? Yes, no copy found in [facility] Patient referred to [facility] Images from the original note were not included. [facility] Plasma [facility] (Elements copied from my note dated November 01, 2024 have been reviewed and updated where appropriate, and all reflect current assessment and medical decision making during today's encounter, November 29, 2024) Reason for visit: follow up myeloma. Baseline assessment on initial diagnosis date 2022 Cancer Staging No matching staging information was found for the patient. Symptomatic multiple myeloma, I Related Organ or Tissue Involvement (CRAB) or other Myeloma Defining Event (MDE): Bone disease: At least one lytic bone lesion on XR or CT if BMPC >=10%, at least 2 bone lesions on XR or CT if BMPC<10%, location of lytic lesion(s): Left clavicular head Antecedent plasma cell dyscrasia: No Myeloma FISH panel: Trisomy 15, trisomy 11 Cytogenetics: 46, XX LDH: 175 ISS stage: ISS Stage II Monoclonal proteins at diagnosis: Serum M-spike: 1.19 gm/dL, Involved serum free light chains: 35.2 mg/L, and Uninvolved serum free light chains: 10.4 mg/L Total immunoglobulins at diagnosis: IgG = 1980 mg/dl, IgA = 58 mg/dl, IgM = 38 mg/dl Bone marrow plasma cell infiltration: 10-15% plasma cells in the marrow Systemic treatment and disease course Start 02/23/2023-current Daratumumab, lenalidomide (per AGNES) - Myeloma response according to: International uniform response criteria, Durie et al. Leukemia 20: 1467-73, 2006 and Lew et al. ERRATUM in Leukemia 21:1134, 2007. Update in Debra SV et al. Blood 117: 9684-6441, 2011 Local treatments (radiation, surgery, kyphoplasty) 03/02/2023 to 03/08/2023 The Left clavicle received a total dose of 2000 cGy in 5 fractions at 400 cGy/fraction using 6 MV photons with Wedged Pair technique. History of present illness Mrs. Dickinson is an 87-year-old female with past medical history that includes hypothyroidism, GERD, hyperlipidemia, prediabetes, and possible coronary artery disease who was initially evaluated for left mid clavicular pain and swelling at an urgent care facility on 12/26/2022. A 2 view x-ray of the clavicle obtained on that occasion did not reveal evidence of an osseous abnormality. Of note, the patient did not experience antecedent trauma to the clavicle prior to that visit. He was initiated on Medrol Dosepak at the time of discharge. Follow-up MRI of the clavicle on 12/29/2022 demonstrated mild expansion and irregular cortical bone in the medial left clavicle. A bone scintigraphy study on 01/05/2023 demonstrated increased uptake in the left sternoclavicular joint medial clavicle, and a CT of the left clavicle and shoulder on 01/11/2023 demonstrated a permeative lytic lesion with a pathologic fracture of the left medial clavicle. The patient was evaluated in our orthopedic oncology clinic on 01/17/2023. CT scans of the chest abdomen and pelvis did not demonstrate any other evidence of overt osseous disease but did demonstrate hepatic hypodensities for which an MRI of the liver was suggested. An image guided biopsy left clavicle was performed demonstrated sheets of plasma cells. Currently paraprotein work-up prior to the current visit is a serum protein electrophoresis demonstrating a monoclonal spike of 1.19 mg/dL and a spot urine protein electrophoresis that does demonstrate a monoclonal paraprotein. The patient has no evidence of underlying bone marrow involvement in terms of her CBC which is entirely normal. There is no evidence of renal dysfunction or hypercalcemia. She denies a personal history of other pathologic fractures. She denies recent fevers, chills, night sweats, nausea, vomiting, diarrhea, voice changes, new rash, or weight loss. She has no personal history of malignancy and no strong family history of thrombophilia, bleeding diathesis, or hematologic cancer. Interim Updates: 03/31/2023: The returns evaluation management of symptomatic myeloma. She denies fevers, chills, night sweat nausea, vomiting, diarrhea, and peripheral neuropathy. She continues on aspirin and acyclovir. Pleated radiation therapy to the left clavicle with no residual pain at the site of the previous fracture. Her paraprotein labs demonstrate normalization of her involved serum free light chain and a decrease in her intact monoclonal paraprotein by approximately 50%. There is no evidence of renal dysfunction or hypercalcemia. Whole body low dose CT scan (see below) demonstrates 1/9 rib lytic lesion in addition to the known clavicular lesion. 05/05/2023: Mrs Dickinson is seen for a scheduled follow up visit. She is accompanied by her . Overall, she reports feeling well. Per her account, she has no pain in the area of her L clavicle. Reports two episodes of mild epistaxis over past month. States she has seen ENT in [place] and was told the recurrent nose bleeds were due to the anatomy of the Right side of her nose. Per patient, she is occasionally constipated and eating prunes usually relieves the constipation. Confirms compliance with Revlimid dosing and schedule. 05/31/23: Mrs. Dickinson is seen for a scheduled follow up visit, accompanied by her . She reports overall feeling well. She woke up this morning with a bruise just to the right of the sternoclavicular junction. She denies fevers, chills, night sweats, nausea, vomiting and diarrhea. She denies new rashes. Her paraprotein labs from last visit demonstrate a preserved free light chain ratio and a fluctuating intact monoclonal paraprotein by protein electrophoresis. 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 Her IgG level has normalized. She has very mild leukopenia and thrombocytopenia. There is no evidence of worsening anemia. There is no evidence of hypercalcemia. Continues on aspirin for thromboprophylaxis and acyclovir for VZV prophylaxis. Performance status is unchanged with the initiation of therapy she notes she is able to complete all of her ADLs and IADLs independently. 07/14/23: Constipation, the patient denies fevers, chills, night sweats, nausea, vomiting, diarrhea, and significant weight changes. 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 Serologically, her immunofixation demonstrates what is likely the presence of daratumumab. Her light chains remain within normal range with a normalized ratio. Her low level intact monoclonal paraprotein may represent daratumumab. She continues to take aspirin and acyclovir as directed. She complains of no new areas of bony pain. 12/01/23: At the present visit, patient denies fevers, chills, night, nausea, vomiting, diarrhea, significantly. She estimates that she wakes at 5 AM every day and is able to work for several hours before becoming tired in the early afternoon. She has not noticed any lymphadenopathy. She has not noticed any early satiety. Paraprotein labs indicate a complete remission. She remains on lenalidomide 10 mg daily day 1 through 21 of a 28-day cycle and monthly daratumumab. We have taken dexamethasone out of her treatment plan. She also receives monthly zoledronic acid. There is no evidence of renal dysfunction, hypercalcemia, or new onset cytopenias. 12/29/23: pt called in last week for brb from rectum. Has known hemorrhoids. Issue subsided without additional interventions. H/h stable. Denies other symptoms. 01/26/24: Mrs. Dickinson returns for follow up. Continues to tolerate treatment well. She tells me she is recommended to have a dental procedure where they will take some tissue from her upper gum and put it into an implant on her lower jaw. She said her dentist wanted clearance from Dr. Beatty and will be sending the information to him to review. She wont be scheduled until she has an ok from our team. I advised her this will need to be reviewed once we have the details of what they are planning. In prep for this we will hold zometa until we know definitely if she will have this done or not. Started revlimid 01/15. 02/21/24: The patient here for follows up and tolerating the treatment well. Her lab workup from 02/19/24 shows an atypical region of restricted mobility on SPEP and no M protein on immunofixation. K/L ratio is also normal. IgG is 630 as well. CBC still shows mild pancytopenia. She denies recent fevers, chills, night sweats, nausea, vomiting, diarrhea, voice changes, new rash, or weight loss. She has an implant of the tooth planned for April 03 2024. Was counseled on keeping an eye out on the fatigue 06/14/24: In the interim since her last visit, the patient continued to receive daratumumab based maintenance. Today is C18D1. Most recent paraprotein labs reveal what is likely a negative immunofixation, completely normal serum free light chains, immune paresis, and essentially normal hemoglobin, and persistent but stable thrombocytopenia and lymphopenia. 08/09/24: The patient denies fevers, chills, night sweats nausea vomiting and new rash. Her diarrhea has improved dramatically since her recent visit. Continues lenalidomide 10 mg days 1-21 of a 28 day cycle aspirin currently. She is receiving once monthly daratumumab. Paraprotein labs indicate a sustained serologic VGPR at minimum and likely a complete remission. 09/06/2024: Mrs Rivero presents for a scheduled follow up for continued management and evaluation of multiple myeloma. She is accompanied by her . Reports that she feels well. No new symptoms per her account. Available labs reviewed with patient and her . 10/08/2024 Kayley Dickinson is seen in treatment room CA4-09 for follow up. She is accompanied by her . Overall she reports that she is doing well. Endorses back pain if I do too much. Describes her appetite as good and weight about the same. Reviewed scheduling of bone stabilizing therapy, Zometa, every 3 months at this time. Available labs reviewed with patient and her . 11/01/2024 Kayley Dickinson was seen for a scheduled follow up visit in treatment room CA4 - 11. She is accompanied by her . States she is feeling well. No new symptoms to report. States her back bothers her if she is active and on her feet for prolonged periods of time. Back pain relieved with rest. Available labs reviewed with patient and her . 11/29/2024 Mrs Dickinson presents for a scheduled follow up visit Seen in [facility] ED for N/V/D 5/6 - given IV fluids and IV zofran No recurrence of symptoms. Suspect viral syndrome or food poisoning after having [place] food. Her had no symptoms Today she reports she is feeling well. Available labs and future schedule reviewed with patient and her . Review of systems General: No fever , No chills, and No night sweats HEENT: No lumps, no difficulty chewing or swallowing, no enlarging tongue, no tooth aches. Musculoskeletal: no current pain Hematological: No bleeding or easy bruising. Lymphatic / Immune system: No lymph node enlargement or infection. Cardiovascular: No orthopnea, no dyspnea, no chest pain, no leg edema, no palpitations. Pulmonary: No dyspnea, no wheezing, no cough. Gastrointestinal: see HPI. No nausea, vomitting, diarrhea, constipation, abdominal pain, or blood in stool. PAST MEDICAL HISTORY Diagnosis Date Advance directive discussed with patient 02/25/2022 Discussed 02/2022 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 rich plaque 03/31/2019 Current use of proton pump inhibitor 07/30/2019 Elevated fasting blood sugar 03/29/2019 GERD without esophagitis 03/29/2019 High cholesterol History of 2019 novel coronavirus disease (COVID-19) 09/07/202202/2022 History of squamous cell carcinoma of skin 03/31/2019 Right side of nose Hypothyroidism, acquired 03/29/[address] 02/25/2022 DPA: Micaela () Medicare annual wellness visit, subsequent 08/17/2020 Medical B eligibilty date 11/21/2002 Last done: 02/11/2020 Mixed hyperglyceridemia 03/29/2019 Multiple myeloma (HCC) 02/13/2023 Osteopenia of spine 03/29/2019 PAST SURGICAL HISTORY Procedure Laterality Date CATARACT EXTRACTION HX Bilateral 2018 COLONOSCOPY 10/25/2021 repeat only if needed HYSTERECTOMY partial - age 40 MASTECTOMY, SIMPLE, COMPLETE Bilateral 1977 with implants for fibrocystic disease (?) NUCLEAR STRESS TEST (WT<440#) ([facility]) 08/09/2013 old records: negative PAST SURGICAL HISTORY OF 1995 breast implants Allergies / intolerances ALLERGIES Allergen Reactions Sulfa (Sulfonamide * Swelling Adhesive Tape-Silic* Rash Medications pravastatin (PRAVACHOL) 80 mg tablet Take 1 tablet by mouth once daily. REVLIMID 10 mg capsule Take 1 capsule (10 MG) by mouth daily at bedtime for 21 days on, followed by 7 days off. acyclovir (ZOVIRAX) 400 mg tablet Take 1 tablet by mouth once daily. levothyroxine (SYNTHROID) 50 mcg tablet Take 1 tablet by mouth once daily. Take on empty stomach. For Thyroid. omeprazole (PRILOSEC) 40 mg capsule Take 1 capsule by mouth daily before breakfast. 1/2 hr before meal. ondansetron (ZOFRAN) 8 mg tablet Take 1 tablet by mouth once daily as needed for nausea/vomiting. cyanocobalamin (VITAMIN B-12) 500 mcg tablet Take 1 tablet by mouth once daily. FERROUS SULFATE ORAL Take 1 tablet by mouth. aspirin, enteric coated (ASPIRIN, ENTERIC COATED) 81 mg EC tablet Take 81 mg by mouth. omega-3 acid ethyl esters (LOVAZA) 1 gram capsule Take 1 g by mouth. calcium carbonate-vitamin D3 (CALTRATE WITH VITAMIN D3) 600 mg(1,500mg) -800 unit tab Take 1 tablet by mouth twice daily. Social History Tobacco Use Smoking status: Never Smokeless tobacco: Never Vaping Use Vaping status: Never Used Substance Use Topics Alcohol use: Not Currently Drug use: Not Currently FAMILY HISTORY Problem Relation Age of Onset Heart Failure Mother Diabetes Sister Hyperlipidemia Sister Thyroid Sister Breast Cancer Maternal Grandmother Diabetes Daughter Hyperlipidemia Sister Alzheimer's Disease No Family History Colon Cancer No Family History Prostate Cancer No Family History Ovarian cancer No Family History Uterine Cancer No Family History Coronary Artery Disease No Family History Hypertension No Family History Kidney Disease No Family History Seizures No Family History Stroke No Family History Physical examination Temp Pulse Resp SYSTOLIC DIASTOLIC SpO2 11/01/2024 36.6 C (97.8 F) 68 16 141 51 98 % ECOG PS: 1- Restricted in physically strenuous activity. Carries out light duty. General appearance: Well appearing, alert, in no acute distress, well-hydrated, well nourished. HEENT: No lumps, no macroglossia, no icterus. Mucous membranes pink. Neck: Supple, no adenopathy Lungs: even chest rise and fall. Extremities: No deformities, edema. Laboratory tests WBC (k/uL) Date Value 11/25/2024 3.35 10/28/2024 3.29 10/04/2024 3.45 09/02/2024 3.61 08/05/2024 3.39 07/08/2024 3.61 06/11/2024 3.46 05/14/2024 3.45 04/15/2024 3.74 03/22/2024 4.09 09/06/2021 6.85 03/15/2021 7.83 02/04/2021 6.15 01/31/2020 5.74 Abs Neut (ANC) (k/uL) Date Value 09/06/2021 4.61 03/15/2021 5.08 02/04/2021 3.89 01/31/2020 3.68 Abs Neut (k/uL) Date Value 11/25/2024 2.08 10/28/2024 2.13 10/04/2024 2.09 09/02/2024 2.35 08/05/2024 2.17 07/08/2024 2.46 06/11/2024 2.20 05/14/2024 2.18 04/15/2024 2.79 03/22/2024 2.84 Hemoglobin (g/dL) Date Value 11/25/2024 11.5 10/28/2024 11.8 10/04/2024 11.9 09/02/2024 11.9 08/05/2024 11.1 07/08/2024 10.7 06/11/2024 11.7 05/14/2024 11.3 04/15/2024 11.8 03/22/2024 11.4 09/06/2021 14.0 03/15/2021 14.0 02/04/2021 13.3 01/31/2020 13.3 Platelet Count (k/uL) Date Value 11/25/2024 102 10/28/2024 99 10/04/2024 84 09/02/2024 106 08/05/2024 112 07/08/2024 142 06/11/2024 86 05/14/2024 92 04/15/2024 107 03/22/2024 98 09/06/2021 157 03/15/2021 173 02/04/2021 148 01/31/2020 168 Glucose (mg/dL) Date Value 11/25/2024 96 10/28/2024 88 10/04/2024 118 09/02/2024 94 08/05/2024 126 07/08/2024 91 06/11/2024 107 05/14/2024 104 04/15/2024 112 03/19/2024 96 02/04/2021 98 01/31/2020 90 Creatinine (mg/dL) Date Value 11/25/2024 0.86 10/28/2024 0.91 10/04/2024 0.80 09/02/2024 0.96 08/05/2024 0.91 07/08/2024 0.91 06/11/2024 1.00 05/14/2024 0.85 04/15/2024 0.91 03/19/2024 0.93 02/04/2021 0.72 01/31/2020 0.70 Calcium (mg/dL) Date Value 02/04/2021 9.1 01/31/2020 9.5 Calcium, Total (mg/dL) Date Value 11/25/2024 9.3 10/28/2024 9.6 10/04/2024 8.8 09/02/2024 9.8 08/05/2024 9.4 07/08/2024 9.2 06/11/2024 9.1 05/14/2024 8.8 04/15/2024 9.1 03/19/2024 9.3 M-Protein Concentration (g/dL) Date Value 11/25/2024 0.00 10/28/2024 0.00 10/04/2024 0.00 09/02/2024 0.00 08/05/2024 0.00 07/08/2024 0.00 06/11/2024 0.00 05/14/2024 0.00 04/15/2024 0.00 03/19/2024 0.00 02/19/2024 0.00 01/23/2024 0.16 11/28/2023 0.15 10/31/2023 0.17 10/05/2023 0.19 09/06/2023 0.24 08/09/2023 0.29 07/13/2023 0.31 06/29/2023 0.33 06/14/2023 0.40 05/30/2023 0.39 05/18/2023 0.46 05/04/2023 0.06 04/20/2023 0.13 04/06/2023 0.58 03/29/2023 0.11 03/02/2023 1.20 02/22/2023 1.35 02/15/2023 1.39 01/17/2023 1.19 [place] Free, Serum Date Value 11/25/2024 13.0 mg/L 10/28/2024 12.3 mg/L 10/04/2024 14.1 mg/L 09/02/2024 16.4 mg/L 08/05/2024 15.8 mg/L 07/08/2024 13.5 mg/L 06/11/2024 15.0 mg/L 05/14/2024 17.0 mg/L 04/15/2024 13.3 mg/L 03/19/2024 17.1 mg/L 02/19/2024 16.0 mg/L 01/23/2024 16.7 mg/L 11/28/2023 17.3 mg/L 10/31/2023 15.6 mg/L 10/05/2023 16.2 mg/L 09/06/2023 15.5 mg/L 08/09/2023 16.0 mg/L 07/13/2023 Comment: Unable to assay. Specimen hemolyzed. Rarely, increased serum free light chains levels may not be detected or accurately quantified due to prozone phenomenon or in high viscosity samples using this immunoturbidimetric assay. Correlation with other laboratory results and clinical findings is recommended. The [place] Free Light Chain was performed using the Binding Site Optilite immunoturbidimetric method. Result obtained with different assay methods or kits cannot be used interchangeably. 06/29/2023 21.2 mg/L 06/14/2023 18.6 mg/L 05/30/2023 21.7 mg/L 05/18/2023 20.8 mg/L 05/04/2023 20.8 mg/L 04/20/2023 17.7 mg/L 04/06/2023 21.9 mg/L 03/29/2023 21.4 mg/L 03/02/2023 21.3 mg/L 02/22/2023 30.5 mg/L 02/15/2023 35.2 mg/L L[place] Free, Serum (mg/L) Date Value 11/25/2024 14.2 10/28/2024 15.2 10/04/2024 15.3 09/02/2024 15.7 08/05/2024 18.6 07/08/2024 14.5 06/11/2024 16.3 05/14/2024 17.1 04/15/2024 14.2 03/19/2024 18.2 02/19/2024 19.4 01/23/2024 18.4 11/28/2023 16.8 10/31/2023 15.8 10/05/2023 14.7 09/06/2023 13.9 08/09/2023 13.0 07/13/2023 10.4 06/29/2023 11.5 06/14/2023 9.5 05/30/2023 10.4 05/18/2023 10.1 05/04/2023 10.4 04/20/2023 6.6 04/06/2023 13.0 03/29/2023 13.0 03/02/2023 4.6 02/22/2023 11.1 02/15/2023 10.4 Interpretation (MPA) (no units) Date Value 11/25/2024 Poorly defined region of restricted mobility in IgG and kappa lanes. Pattern is less well defined or fainter than typically seen in monoclonal gammopathy. This could represent either an atypical presentation of polyclonal immunoglobulins or the presence of a low level IgG kappa monoclonal gammopathy. If clinically indicated, urine monoclonal protein analysis and serum free light chain measurements are recommended to evaluate further for monoclonal gammopathy. Clinical correlation is necessary. 10/28/2024 Poorly defined region of restricted mobility in IgG and kappa lanes. Pattern is less well defined or fainter than typically seen in monoclonal gammopathy. This could represent either an atypical presentation of polyclonal immunoglobulins or the presence of a low level IgG kappa monoclonal gammopathy. If clinically indicated, urine monoclonal protein analysis and serum free light chain measurements are recommended to evaluate further for monoclonal gammopathy. Clinical correlation is necessary. 06/11/2024 Poorly defined region of restricted mobility in the lambda alejandro. Pattern is less well defined or fainter than typically seen in monoclonal gammopathy. This could represent either an atypical presentation of polyclonal immunoglobulins or the presence of a low level lambda containing monoclonal gammopathy. If clinically indicated, urine monoclonal protein analysis and serum free light chain measurements are recommended to evaluate further for monoclonal gammopathy. Clinical correlation is necessary. 04/15/2024 There is a faint band in the IgG and kappa lanes. The patient is receiving a therapeutic monoclonal antibody, for which the electrophoretic properties have not been well-defined. Cannot exclude the possibility that this band represents a therapeutic monoclonal antibody rather than an IgG kappa paraprotein. Recommend correlation with serum free light chain and urine monoclonal protein analysis. 01/23/2024 There is an atypical restricted band present in the IgG and kappa regions. The location of the IgG kappa band suggests the presence of daratumumab, although one cannot rule out the possibility that this band represents a disease-related monoclonal protein. If clinically required, specific testing for daratumumab may be ordered to confirm the presence of the drug in this patient. Imaging - MRI 12/29/2022: demonstrating mild expansion and irregular cortical bone in medial left clavicle. - Bone scintography 01/05/2023: increased uptake in left sternoclavicular joint, and medial clavicle. - CT left clavicle/shoulder 01/11/2023: permeative lytic lesion with pathological fracture of left medial clavicle. Low-dose CT scan of the whole body (02/22/2023) 1. Stable expansile, lytic bone lesion with associated cortical destruction involving the medial left clavicle, corresponding with the site of recent biopsy. 2. There is a lytic lesion involving the posterior right ninth rib at the costovertebral joint with disruption of the posterior cortex. 3. No other lytic bone lesions identified. 4. 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 Correlation with prior outside studies, if available, would be helpful. This could be further evaluated with dedicated head CT. 5. Additional findings as above which are stable from the recent chest and abdominopelvic CT exams. Pathology: Image guided biopsy of the mid left clavicle (01/30/2023) FINAL DIAGNOSIS A. Lesion, left clavicular head, biopsy: - Plasma cell neoplasm (kappa). - See comment. CV/mm/02/01/2023 Diagnosis Comment Histologic sections show fragments of blood clot associated with clusters of plasma cells. The plasma cells are intermediate sized, with abundant cytoplasm and round, eccentric nuclei with mature chromatin. Immunohistochemical stains have been performed with appropriately staining controls. The plasma cells are positive for CD138. On the stains for kappa or lambda they appear monotypic kappa. 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 Further classification of this process requires correlation with clinical, radiologic, and laboratory findings. Impression and Plan Cancer Staging No matching staging information was found for the patient. #multiple myeloma Cytogenetic risk category: Standard risk Frailty Score: 0 IMWG Response Criteria: Renal: Normal creatinine, clinically no evidence for renal dysfunction. Infectious diseases: No current infection, no need for prophylaxis Musculoskeletal: Chronic pain, satisfactorily controlled. Bone modifying therapy: zometa Venous thromboembolism risk: No need for DVT prophylaxis control counseling: Does not apply since patient is naturally postmenopausal for greater than 24 months or post hysterectomy or post bilateral oophorectomy Neurology: No neurologic symptoms Health maintenance discussed: Regular exercise and Appropriate diet Side effects from current medications: None Mrs. Dickinson is an 88-year-old female with excellent performance status who was recently diagnosed with a fracture of the left mid clavicle without evidence of trauma to the site. An image guided biopsy revealed plasma cell involvement and a initial protein electrophoresis demonstrated a monoclonal paraprotein 1.19 mg/dL. Cross-sectional imaging revealed no evidence of additional osseous disease. She continues on the AGNES regimen with excellent tolerance of treatment and performance status. Her intact monoclonal paraprotein has fluctuated; however, this is in the context of daratumumab treatment and an underlying CD5+ B-cell clone. Her total IgG level has normalized and there are no other indications of symptomatic or biochemical progression. Overall, she is likely at least achieved a VGPR and probably a CR. Her immunofixation remains negative. We will continue aspirin, acyclovir, and bone stabilizing therapy. Plan Summary: -Continue daratumumab monthly and lenalidomide (dexamethasone dropped based on Agnes protocol) with lenalidomide 10 mg day 1 through 21 of a 28-day cycle for now -No further dexamethasone with treatment -started bone stabilizing therapy with zometa 04/21/2023 - C14 due 01/23 -Continue acyclovir and aspirin -RTC in 4 weeks I spent a total of 30 minutes on the date of the service which included preparing to see the patient, completing clinical documentation, obtaining and/or reviewing separately obtained HPI, reviewing test results again and restrictions due to results, available treatment, signs and symptoms that warrant follow up, counseling and educating the patient/family/caregiver. Medical Decision Making: Medical Decision Making Level: 1 - N/A ASSESSMENT/PLAN: 1. Multiple myeloma in remission (HCC) - ICD9: 203.01, ICD10: C90.01 - CHEMO SCHEDULING Vince Freitas APRN.[employer] [facility] [place] [address] Email: [email or web address] documented in this encounter [facility] 11-28-2024 Telephone encounter Note Patient states she was having nausea and diarrhea on Monday and went to the ER. They diagnosed her with a viral infection and gave IV fluids. She has not had vomiting or diarrhea since before she went to the ER on Monday. States she is eating and drinking normally at this time. Follow up with Jessica Freitas CNP tomorrow. JUAN Felix, RN Specialty Nurse Cultural Anthropology Professor [facility] 11-28-2024 Miscellaneous Notes Patient states she was having nausea and diarrhea on Monday and went to the ER. They diagnosed her with a viral infection and gave IV fluids. She has not had vomiting or diarrhea since before she went to the ER on Monday. States she is eating and drinking normally at this time. Follow up with Jessica Freitas CNP tomorrow. RUDI FelixN, RN Specialty Nurse Cultural Anthropology Professor Kayley Roc Dickinson('s) is calling Jaime Beatty MD today regarding 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 (Change in condition ) Reached out to let the team know that she is feeling better and hasn't had any diarrhea or vomiting since Monday. Patient has been identified by name and birthdate. Duration of symptoms: N/A Requesting response back: call on cell [phone] (home) [phone] (cell) Natalia Moreau V November 28, 2024 documented in this encounter [facility] 11-28-2024 Note [facility] 11-28-2024 Telephone encounter Note Kayley Dickinson('s) is calling Jaime Beatty MD today regarding 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 (Change in condition ) Reached out to let the team know that she is feeling better and hasn't had any diarrhea or vomiting since Monday. Patient has been identified by name and birthdate. Duration of symptoms: N/A Requesting response back: call on cell [phone] (home) [phone] (cell) Natalia Moreau V November 28, 2024 [facility] 11-26-2024 Discharge summary [facility] 11-26-2024 Discharge summary Note Date/Time November 26, 2024 10:25pm [facility] Medical Records Department [address] [place] [address] Emergency Department Summary 11/26/24 MR#: [id number] Acct: [id number] Name: KAYLEY DICKINSON Rep #:[id number] : 1935 88 From: Vazquez Marc MD PCP: Dr. Hilton Pena MD Status:REG ER Location: ED HPI HPI - GI History of Present Illness Chief Complaint: Nausea/Vomiting/Diarrhea Informant: patient and spouse/S.O. Nausea/Vomiting/Emesis GI Symptom: Positive for Nausea and Vomiting Onset: Today and Hours Severity: Moderate Diarrhea/Melena/Hematochezia GI Symptom: Positive for Diarrhea Onset: Today Stool Quality: Positive for Watery Severity: Moderate Associated Symptoms Associated Symptoms: Negative for Dysuria, Frequency, Hematuria or Urgency Narrative Narrative: 88-year-old female history of multiple myeloma has a scheduled infusion this Monday at the [facility]. States she felt fine earlier today. Around 6:30 PM she started having nausea and vomiting and then shortly after that began having diarrhea. She has had multiple episodes of each. No hematemesis. No melena. Really denies any abdominal pain or fever. No dysuria. States she was feeling fine until this started. No recent exposure anyone that had the symptoms. Her has not been ill. States she feels dehydrated. Prior similar symptoms: Yes Recent Illness/Hospitalization: No PFSH [facility] Medical History Multiple myeloma Contact with and (suspected) exposure to other viral communicable diseases Hyperlipidemia Hypothyroid Home Medications ?Medication ?Instructions ?Recorded ?Last Taken ?Type acyclovir 400 mg tablet 400 mg PO DAILY 08/16/23 Unk nown History calcium 600 mg (as carbonate)-vit 1 tab PO BID 4 Unknown History D3 20 mcg (800 unit) chewable tablet (Caltrate plus D) ferrous sulfate 325 mg (65 mg 325 mg PO DAILY 08/16/23 Unknown History iron) tablet (Feosol) lenalidomide 10 mg capsule 10 mg PO QHS 08/16/23 Unkno wn History (Revlimid) levothyroxine 50 mcg tablet 50 mcg PO DAILY 08/16/23 U nknown History omeprazole 40 mg capsule,delayed 40 mg PO DAILY Unknown History release pravastatin 80 mg tablet 80 mg PO DAILY 08/16/23 Unkn own History ondansetron 4 mg disintegrating 4 mg PO Q8H PRN PRN Na usea #10 tabs 10/09/23 Unknown Rx tablet ondansetron 4 mg disintegrating 4 mg PO Q6H PRN nausea and 11/26/24 Unknown Rx tablet vomiting #7 tabs Allergy/AdvReac Type Severity Reaction Status Date / Time latex Allergy Rash Verified 11/26/24 20:45 Sulfa (Sulfonamide Allergy Hives Verified 11/26/24 20:45 Antibiotics) Social History current occupational status: retired Smoking Status: Never smoker ROS ROS ED ROS Narrative Nausea, vomiting and diarrhea. No dysuria. No fever. No abdominal pain. Constitutional Constitutional ED: Denies chills or fever(s) ENT ENT ED: Denies ear pain Cardiovascular Cardiovascular: Denies chest pain Respiratory/Chest Respiratory/Chest: Denies cough or dyspnea Gastrointestinal Gastrointestinal: Reports diarrhea, nausea and vomiting; Denies abdominal pain, constipation or melena Genitourinary Genitourinary ED: Denies dysuria or hematuria Musculoskeletal Musculoskeletal: Denies arthralgias Integumentary Denies abscess Neurologic Neurologic: Denies headache(s) Psychiatric Psychiatric: Denies anxiety Endocrine Endocrinology: Denies polydipsia Hematologic/Lymphatic Hematologic/Lymphatic: Denies easy bleeding Allergic/Immunologic Allergic/Immunologic ED: Denies mouth swelling EXAM Physical Exam Narrative Exam Narrative: 88-year-old female vital signs are stable afebrile. She does not look septic ortoxic. She is currently in no acute distress. is at bedside. H EENT exam pupils round reactive light. Mildly dry mucous membranes. No droop. Normal speech. No trauma. Neck nontender. Lungs clear to auscultation bilaterally. Heart regular rhythm rate about 75 no murmur. Chest wall ribs nontender. Abdomen soft, nontender, nondistended, normal bowel sounds without peritoneal signs. No hernia or mass. No obstruction. Completely nontender. Moving all 4 extremities. Nontender no edema. Normal strength and range of motion. Back nontender. Neurologically she is awake alert. Answering questions following commands. Const Vital Signs: 11/26/24 20:44 11/26/24 20:46 11/26/24 20:46 Temperature 98.3 F 98.3 F 98.3 F Temperature Source Oral Oral Oral Pulse Rate 76 76 76 Respiratory Rate 16 16 16 Blood Pressure 153/65 H 153/65 H 153/65 H Blood Pressure Mean 94 94 94 Pulse Ox 99 99 99 Oxygen Delivery Method Room Air Room Air Positive well nourished and well developed; Negative for obese, cachectic, contractures or unkempt General Appearance ED: well developed and NAD; Negative for unkempt, cachectic, contractures or pallor Nutritional Appearance: Negative for cachectic or obese HEENT Reports dry mucous membranes; Denies moist mucous membranes normocephalic and atraumatic Mouth ED: Yes dry mucous membranes Mouth: dry mucous membranes Eyes PERRL and EOMs intact bilaterally Neck no lymphadenopathy, supple and no JVD Resp normal respiratory effort and clear to auscultation bilaterally Cardio regular rate, regular rhythm, S1 normal heart sound, S2 normal heart sound and no murmurs GI non-tender, non-distended and no masses Inspection: Negative for abdominal distention Auscultation: normoactive bowel sounds Palpation: soft; Negative for tender, guarding, rigid, hepatomegaly, splenomegaly, hernia, mass, pulsatile mass or rebound tenderness present Back/Spine no CVA tenderness Extremity full ROM General Extremety ED: Negative for edema or tenderness General Extremity: Negative for edema Neuro CN's II-XII intact bilaterally and moves all extremities Sensorium / Orientation: alert, oriented to person, oriented to place and oriented to time; Negative for orientation impaired, confused or lethargic Motor Exam: strength 5/5 throughout Psych mental status grossly normal and thought process normal Appearance: Negative for unkempt Attitude: No agitated Mood & Affect: Negative for depressed, anxious or tearful Skin no wounds General Skin Exam: Negative for jaundice or pallor Lesions: no lesions Rashes: no rashes Trauma: Negative for abrasion Nails: Negative for discolored MDM MDM MDM Narrative Medical decision making narrative: 88-year-old female nausea, vomiting diarrhea. Suspect viral syndrome. Exam benign. Mildly dehydrated. Abdomen completely benign. Nontender no peritonealsigns. She will receive IV fluids and Zofran. P.o. fluid challenge. I do not think she needs any imaging. I will check screening labs due to her history of multiple myeloma and the vomiting and diarrhea. Repeat exam at 10:22 PM patient doing well. Abdomen benign. Nausea has resolved with the IV Zofran. She has been able to hold down ice water. She andher are comfort with her being discharged to home. She will be written for prescription of Zofran. Treated as a viral gastroenteritis. Follow-up as needed. Return if unable to keep fluids down or feeling worse. History & Record Review Discussion w/independent historian: Patient and Family Additional record(s) reviewed:: Prior inpatient record, Prior outpatient record,Prior ED visit and Prior labs Lab Data Attestation: I reviewed the patient's lab results. Lab results narrative: CBC shows a white count 2.9 she has been running neutropenic. H&H 12.6 and 38. Platelet count 90. Consistent with prior labs. Chemistry shows sodium 142. Gap 12. BUN 28 creatinine 0.99 consistent with dehydration. Glucose 130. Labs: Laboratory Results - last 24 hr 11/26/24 21:17 WBC 2.9 L RBC 4.19 L Hgb 12.6 Hct 38.6 MCV 92.1 MCH 30.1 MCHC 32.6 RDW Std Deviation 51.4 H RDW Coeff of Kar 15.1 H Plt Count 90 L MPV 11.3 Immature Gran % (Auto) 0.300 Neut % (Auto) 82.9 H Lymph % (Auto) 7.9 L [place] % (Auto) 7.9 Eos % (Auto) 0.3 Baso % (Auto) 0.7 Absolute Neuts (auto) 2.4 Absolute Lymphs (auto) 0.23 L Nucleated RBC % 0 Sodium 142 Potassium 3.6 Chloride 106 Carbon Dioxide 24.0 Anion Gap 12 BUN 28 H Creatinine 0.99 Estim Creat Clear Calc 32.26 L Est GFR (MDRD) Non-Af 56 L BUN/Creatinine Ratio 28.7 H Glucose 130 H Calcium 9.1 Discharge Plan Triage Chief Complaint: Nausea/Vomiting/Diarrhea ED Provider: Vazquez Marc Dx/Rx/DC Orders Clinical Impression: Viral gastroenteritis, Acute dehydration, Hx of multiple myeloma Instructions: ED Gastroenteritis, Viral (Adult) Prescriptions: New ondansetron 4 mg tablet,disintegrating 4 mg PO Q6H PRN (Reason: nausea and vomiting) Qty: 7 0RF No Action acyclovir 400 mg tablet 400 mg PO DAILY lenalidomide [Revlimid] 10 mg capsule 10 mg PO QHS levothyroxine 50 mcg tablet 50 mcg PO DAILY omeprazole 40 mg capsule,delayed release(DR/EC) 40 mg PO DAILY pravastatin 80 mg tablet 80 mg PO DAILY ferrous sulfate [Feosol] 325 mg (65 mg iron) tablet 325 mg PO DAILY Caltrate 600 plus D 600 mg-20 mcg (800 unit) tablet,chewable 1 tab PO BID ondansetron 4 mg tablet,disintegrating 4 mg PO Q8H PRN PRN (Reason: Nausea) Qty: 10 0RF Primary Care Provider: Hilton Pena Referrals: Hilton Pena MD [Primary Care Provider] - 1-2 Days if not improving Activity Restrictions/Additional Instructions: Plenty of fluids and rest. Increase diet slowly as tolerated. Zofran as needed for nausea you may swallow it or let it dissolve under your tongue. Follow-up with your doctor if not improving return to emergency department if worse or unable to keep fluids down. Print Language: Portuguese Disposition Disposition: Home, Self Care What to do if you have Problems For any increased pain, shortness of breath, bleeding, nausea or vomiting, chestpain, or any unexpected problems, contact your Primary Care Provider. Call [facility] ([phone]) or report to the closest Emergency Room. Call 911 if necessary. 11/26/242224 <Electronically signed by Vazquez Marc MD> Cosigner Signature (if applicable): CC: Dr. Hilton Pena MD ~ Signed [facility] Work Phone: [phone] 879-174604-29-2025 Telephone encounter Note* Telephone Encounter - Hilton Pena MD - 11/19/2024 12:40 PM EDT The following approved medication requests have been transmitted electronically. Requested Prescriptions Signed Prescriptions Disp Refills pravastatin (PRAVACHOL) 80 mg tablet 90 tablet 1 Sig: Take 1 tablet by mouth once daily. Authorizing Provider: HILTON PENA MD [facility]04-29-2025 Miscellaneous Notes* Telephone Encounter - Hilton Pena MD - 11/19/2024 12:40 PM EDT The following approved medication requests have been transmitted electronically. Requested Prescriptions Signed Prescriptions Disp Refills pravastatin (PRAVACHOL) 80 mg tablet 90 tablet 1 Sig: Take 1 tablet by mouth once daily. Authorizing Provider: HILTON PENA MD * Telephone Encounter - Sherri Stahl LPN - 11/19/2024 12:33 PM EDT Prescription Refill Information The patient has been identified by name and date of : Yes Caregiver verified no other encounters exist for this prescription request: Yes Caregiver confirmed with patient/requestor that no other refills are due, in the near future, with this provider at this time: Yes The last office visit in the department: 09/11/24 Does the patient have a future office visit with this provider/department: Yes Requested Prescriptions Pending Prescriptions Disp Refills pravastatin (PRAVACHOL) 80 mg tablet 90 tablet 1 Sig: Take 1 tablet by mouth once daily. Sherri Stahl LPN November 19, 2024 12:36 PM documented in this encounterMag[facility]04[facility]25 Telephone encounter Note * Telephone Encounter - Sherri Stahl LPN - 11/19/2024 12:33 PM EDT Prescription Refill Information The patient has been identified by name and date of : Yes Caregiver verified no other encounters exist for this prescription request: Yes Caregiver confirmed with patient/requestor that no other refills are due, in the near future, with this provider at this time: Yes The last office visit in the department: 09/11/24 Does the patient have a future office visit with this provider/department: Yes Requested Prescriptions Pending Prescriptions Disp Refills pravastatin (PRAVACHOL) 80 mg tablet 90 tablet 1 Sig: Take 1 tablet by mouth once daily. Sherri Stahl LPN November 19, 2024 12:36 PM [facility]04-22-2025 History of Present illness Narrative* Ramya Smith RPh - 11/12/2024 9:46 AM EDT [facility] Refill Assessment Medication(s): Revlimid Reviewed OV note on 11/01- no changes, tolerating therapy. 10/28 labs reviewed. Plt increased to 99. H/H + ANC wnl. SCr stable. Immunofixation remains negative. Next clinic visit scheduled 11/29. Revlimid cycles (28DS: 21 on / 7 off) are as follows: C1D1 03/13/23 C16D1 05/02/24 - delayed d/t covid, approved by Tx team to resume C17D1 05/30/24 C18D1 07/01/24- delayed d/t infection/antibiotics x10d C19D1 07/29/24 C20D1 08/26/24 C21D1 09/23/24 C22D1 10/21/24 C23D1 11/18/24 C24D1 12/16/24 REMS note: Pt's last survey was completed on 07/22/24. Next survey will be available on or after 12/30/24. Dispensing note: sending dosing calendar with shipment. ALLERGIES Allergen Reactions Sulfa (Sulfonamide * Swelling Adhesive Tape-Silic* Rash Patient's current medication list and adherence status to current therapy were reviewed by Specialty Pharmacy clinical pharmacist to identify any new drug interactions or non-compliance to therapy. Therapy continues to be appropriate for disease, patient response, and medical condition. Verification of therapeutic benefit and effectiveness with current therapy was completed. Adverse events, barriers in adherence, and side effects were assessed and addressed if applicable. Will proceed with refill with no changes in therapy - patient progressing towards achieving therapeutic goals based on medication- specific laboratory parameters, disease state markers and outcomes. Office/provider notes have been reviewed prior to dispensing the medication. Ramya Smith [facility] PharmD, BCPS Clinical Pharmacist, Oncology [facility] P: , F: Pool: P [facility] Pool #: [id number] Steam Finisher Assessment Patient confirmed: Yes Med/dose confirmed: Yes Supplies needed: No supplies needed Missed doses: No Estimated days supply on hand: 0 Next cycle/dose due: 11/18/24 (pt confirms started off week on 11/11) Copay amount: 0 Copay form of payment: (n/a) Payment confirmed: (n/a) Delivery method: FedEx Signature required: Required (, Medicaid, patient preference) Delivery address: [address] [place] [id number] (sig required) Delivery date: 11/14/24 Questions or concerns for the pharmacist?: No Did you have any side effects believed to be related to this medication, that resulted in hospitalization?: No Current Outpatient Medications on File Prior to Visit Medication Sig REVLIMID 10 mg capsule Take 1 capsule (10 MG) by mouth daily at bedtime for 21 days on and 7 days off. acyclovir (ZOVIRAX) 400 mg tablet Take 1 tablet by mouth once daily. levothyroxine (SYNTHROID) 50 mcg tablet Take 1 tablet by mouth once daily. Take on empty stomach. For Thyroid. omeprazole (PRILOSEC) 40 mg capsule Take 1 capsule by mouth daily before breakfast. 1/2 hr before meal. pravastatin (PRAVACHOL) 80 mg tablet Take 1 tablet by mouth once daily. ondansetron (ZOFRAN) 8 mg tablet Take 1 tablet by mouth once daily as needed for nausea/vomiting. cyanocobalamin (VITAMIN B-12) 500 mcg tablet Take 1 tablet by mouth once daily. FERROUS SULFATE ORAL Take 1 tablet by mouth. aspirin, enteric coated (ASPIRIN, ENTERIC COATED) 81 mg EC tablet Take 81 mg by mouth. omega-3 acid ethyl esters (LOVAZA) 1 gram capsule Take 1 g by mouth. calcium carbonate-vitamin D3 (CALTRATE WITH VITAMIN D3) 600 mg(1,500mg) -800 unit tab Take 1 tabletby mouth twice daily. No current facility-administered medications on file prior to visit. [facility] SPECIAL[facility] CLINICAL ASSESSMENT - HEMATOLOGY ONCOLOGY V6: Ivent complete: No Assessment to use: Refill Date of influenza vaccination reminder: 04/01/2024 Date of most recent vaccination assessment: 04/01/2024 Treatment Plan Information: Diagnosis: Multiple myeloma - newly diagnosed Previous treatment(s): none, newly diagnosed Treatment plan: Revlimid (lenalidomide) + daratumumab + dexamethasone Starting Dose/Titration: Take 1 capsule (10mg) by mouth daily at bedtime for 21 days on, 7 days off. - Renal dose reduction required?: yes - CrCl 47mL/min, usual dose 25mg: PI recommends DR to 10mg daily, may increase to 15mg after 2 cycles if tolerating; dose reduced to 10 mg. Administration: - Take with or without food - Take at the same time each day with water; swallow whole Warnings: include but are not limited to - CONGRESSIONAL AIDE effects (dizziness, fatigue) - Tumor Flare, TLS - Venous and arterial thromboembolism (DVT, PE, TN, stroke) - BBW - Hematologic toxicity (neutropenia and thrombocytopenia) - BBW - Embryo- toxicity - BBW - No blood (or semen) donations during and 4 weeks post discontinuation Adverse reactions: include but are not limited to - Hepatotoxicity - Peripheral edema - Derm rxns (pruritis, skin rash, xeroderma) - Diarrhea > constipation; decrease appetite, abdominal pain - N/V (min to low) - BMS (neutropenia, thrombocytopenia, anemia) - Fatigue, asthenia, arthralgia, headache; back pain, muscle cramps/spasms Monitoring: - CBC with diff (MCL - weekly C1, Q2 weeks C2-4, then monthly; MDS - weekly x8 weeks, then at leastmonthly; MM - weekly x2 cycles; Q2 weeks C3, then monthly; Follicular and marginal zone lymphoma - weekly x3 weeks, Q2 weeks C2-4, then monthly) - sCr, LFTs (periodically) - TSH (baseline, then every 2-3 months) - ECG when clinically indicated - S/S infection, bruising, bleeding, hepatoxocity, 2ndry malignancy, thromboembolism, derm toxicity, TLS - test (for females of reproductive potential) - Hep B screening Drug-Drug Interactions: no interactions identified by Jennifer Baseline: - CBCD 02/22/23 - TSH 1.680 on 02/15/23 - CrCl 47mL/min on 02/22/23 - Hep B screening 02/23/23 Est. Tx Plan Start Date: No information available Estimated Start Date Info: Per Dr. Voss's discretion MDO to confirm DR for current CrCl - dose adjusted to 10 mg daily. Est. Estimated Treatment Duration: Continue until disease progression or unacceptable toxicity. Ramya Smith RPh * Ramya Smith RPh - 11/12/2024 9:46 AM EDT [facility] RX SPECIALTY CLINICAL ASSESSMENT - CELGENE REMS HEADER V4 Patient is not a female of reproductive potential Lenalidomide - Patient Not of Reproductive Potential V3 All boxes and spaces must be marked or filled in during counseling with the patient for every prescription. Ramya Smith RPh 9:59 AM November 12, 2024 Addendum November 13, 2024 8:13 AM : All REMS components have been verified by clinical pharmacist and patient is (or continues to be) an appropriate candidate for treatment. Confirm prescription contains authorization number and patient risk category Confirm order is for 28 day supply or less Confirm if refill, there are 7 days or less remaining of therapy on the existing prescription. Confirm order still appropriate to fill 30 days from authorization date For risk category females of reproductive potential: 7 days from last test Drug Interaction and Counseling Checklist Completed Verify all items checked as appropriate in the checklist Confirmation number obtained on same date order will be shipped and documented in the checklist accordingly REMS WA flag resolved after confirmation number obtained Medication will be shipped overnight and within 24 hours of receiving confirmation number Confirmation numbers was obtained the same date the order is shipping out Signature required to confirm delivery Darell Chu PharmD Clinical Pharmacist, Oncology [facility] P: ; F: Pool: P [facility] Pool #: [id number] documented in this encounterMag[facility]04[facility] Telephone encounter Note* Telephone Encounter - Kristal Baldwinline - 11/06/2024 2:19 PM EDT Patient has been identified by name and birthdate. Called pt to notify of updated appt time from 12/27 @ 3:00 to 12/27 at 2:30. Will be seeing Vince Freitas for follow-up- Dr. Beatty is not available. No vcm message option available. First call attempt 11/06 at 2:20 Maira Baldwin November 06, 2024 [facility]04-16-2025 Miscellaneous Notes* Telephone Encounter - Nicolasa Maira - 11/06/2024 2:19 PM EDT Patient has been identified by name and birthdate. Called pt to notify of updated appt time from 12/27 @ 3:00 to 12/27 at 2:30. Will be seeing Vince Freitas for follow-up- Dr. Beatty is not available. No vcm message option available. First call attempt 11/06 at 2:20 Maira Baldwin November 06, 2024 documented in this encounterMag[facility]04-11-2025 History of Present illness Narrative* Vince Freitas APRN.[employer] - 11/01/2024 2:30 PM EDT Images from the original note were not included. [facility] (Elements copied from my note dated October 08, have been reviewed and updated where appropriate, andall reflect current assessment and medical decision making during today's encounter, November 01, 2024) Reason for visit: follow up myeloma. Baseline assessment on initial diagnosis date 2022 Cancer Staging No matching staging information was found for the patient. Symptomatic multiple myeloma, I Related Organ or Tissue Involvement (CRAB) or other Myeloma Defining Event (MDE): Bone disease: At least one lytic bone lesion on XR or CT if BMPC >=10%, at least 2 bone lesions on XR or CT if BMPC<10%, location of lytic lesion(s): Left clavicular head Antecedent plasma cell dyscrasia: No Myeloma FISH panel: Trisomy 15, trisomy 11 Cytogenetics: 46, XX LDH: 175 ISS stage: ISS Stage II Monoclonal proteins at diagnosis: Serum M-spike: 1.19 gm/dL, Involved serum free light chains: 35.2mg/L, and Uninvolved serum free light chains: 10.4 mg/L Total immunoglobulins at diagnosis: IgG = 1980 mg/dl, IgA = 58 mg/dl, IgM = 38 mg/dl Bone marrow plasma cell infiltration: 10-15% plasma cells in the marrow Systemic treatment and disease course Start 02/23/2023-current Daratumumab, lenalidomide (per AGNES) - Myeloma response according to: International uniform response criteria, Durie et al. Leukemia 20:1467-73, 2006 and Lew et al. ERRATUM in Leukemia 21:1134, 2007. Update in Debra SV et al. Blood 117: 7588-2923, 2011 Local treatments (radiation, surgery, kyphoplasty) 03/02/2023 to 03/08/2023 The Left clavicle received a total dose of 2000 cGy in 5 fractions at 400 cGy/fraction using 6 MV photons with Wedged Pair technique. History of present illness Mrs. Dickinson is an 87-year-old female with past medical history that includes hypothyroidism, GERD, hyperlipidemia, prediabetes, and possible coronary artery disease who was initially evaluated for left mid clavicular pain and swelling at an urgent care facility on 12/26/2022. A 2 view x-ray of the clavicle obtained on that occasion did not reveal evidence of an osseous abnormality. Of note, the tk bell did not experience antecedent trauma to the clavicle prior to that visit. He was initiated onMedrol Dosepak at the time of discharge. Follow-up MRI of the clavicle on 12/29/2022 demonstrated mild expansion and irregular cortical bone in the medial left clavicle. A bone scintigraphy study on 01/05/2023 demonstrated increased uptake in the left sternoclavicular joint medial clavicle, and a CT of the left clavicle and shoulder on 01/11/2023 demonstrated a permeative lytic lesion with a pathologic fracture of the left medial clavicle. The patient was evaluated in our orthopedic oncology clinic on 01/17/2023. CT scans of the chest abdomen and pelvis did not demonstrate any other evidence of overt osseous disease but did demonstrate hepatic hypodensities for which an MRI of the liver was suggested. An image guided biopsy left clavicle was performed demonstrated sheets of plasma cells. Currently paraprotein work-up prior to the current visit is a serum protein electrophoresis demonstrating a monoclonal spike of 1.19 mg/dL and a spot urine protein electrophoresis that does demonstrate a monoclonal paraprotein. The patient has no evidence of underlying bone marrow involvement in terms of her CBC which is entirely normal. Thereis no evidence of renal dysfunction or hypercalcemia. She denies a personal history of other pathologic fractures. She denies recent fevers, chills, night sweats, nausea, vomiting, diarrhea, voice changes, new rash, or weight loss. She has no personal history of malignancy and no strong family history of thrombophilia, bleeding diathesis, or hematologic cancer. Interim Updates: 03/31/2023: The returns evaluation management of symptomatic myeloma. She denies fevers, chills, night sweat nausea, vomiting, diarrhea, and peripheral neuropathy. She continues on aspirin and acyclovir. Pleated radiation therapy to the left clavicle with no residual pain at the site of the previous fracture. Her paraprotein labs demonstrate normalization of her involved serum free light chain and a decrease in her intact monoclonal paraprotein by approximately 50%. There is no evidence of renal dysfunction or hypercalcemia. Whole body low dose CT scan (see below) demonstrates 1/9 rib lytic lesion in addition to the known clavicular lesion. 05/05/2023: Mrs Dickinson is seen for a scheduled follow up visit. She is accompanied by her . Overall, she reports feeling well. Per her account, she has no pain in the area of her L clavicle.Reports two episodes of mild epistaxis over past month. States she has seen ENT in [place] and was told the recurrent nose bleeds were due to the anatomy of the Right side of her nose. Per patient, she is occasionally constipated and eating prunes usually relieves the constipation. Confirms compliance with Revlimid dosing and schedule. 05/31/23: Mrs. Dickinson is seen for a scheduled follow up visit, accompanied by her . She reports overall feeling well. She woke up this morning with a bruise just to the right of the sternoclavicular junction. She denies fevers, chills, night sweats, nausea, vomiting and diarrhea. She deniesnew rashes. Her paraprotein labs from last visit demonstrate a preserved free light chain ratio fabiola fluctuating intact monoclonal paraprotein by protein electrophoresis. 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 Her IgG level has normalized. She has very mild leukopenia and thrombocytopenia. There is no evidence of worsening anemia. There is no evidence of hypercalcemia. Continues on aspirin for thromboprophylaxis and acyclovir for VZV prophylaxis. Performance status is unchanged with the initiation of therapy she notes she is able to complete all of her ADLs and IADLs independently. 07/14/23: Constipation, the patient denies fevers, chills, night sweats, nausea, vomiting, diarrhea, and significant weight changes. 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 Serologically, her immunofixation demonstrates what is likely the presence of daratumumab. Her light chains remain within normal range with a normalized ratio. Her low level intact monoclonal paraprotein may represent daratumumab. She continues to take aspirin and acyclovir as directed. She complains of no new areas of bony pain. 12/01/23: At the present visit, patient denies fevers, chills, night, nausea, vomiting, diarrhea, significantly. She estimates that she wakes at 5 AM every day and is able to work for several hours before becoming tired in the early afternoon. She has not noticed any lymphadenopathy. She has not noticed any early satiety. Paraprotein labs indicate a complete remission. She remains on lenalidomide 10 mg daily day 1 through 21 of a 28-day cycle and monthly daratumumab. We have taken dexamethasone out of her treatment plan. She also receives monthly zoledronic acid. There is no evidence of renal dysfunction, hypercalcemia, or new onset cytopenias. 12/29/23: pt called in last week for brb from rectum. Has known hemorrhoids. Issue subsided without additional interventions. H/h stable. Denies other symptoms. 01/26/24: Mrs. Dickinson returns for follow up. Continues to tolerate treatment well. She tells me sheis recommended to have a dental procedure where they will take some tissue from her upper gum and put it into an implant on her lower jaw. She said her dentist wanted clearance from Dr. Beatty and will be sending the information to him to review. She wont be scheduled until she has an ok from our team. I advised her this will need to be reviewed once we have the details of what they are planning. In prep for this we will hold zometa until we know definitely if she will have this done or not. Started revlimid 01/15. 02/21/24: The patient here for follows up and tolerating the treatment well. Her lab workup from 02/19/24 shows an atypical region of restricted mobility on SPEP and no M protein on immunofixation. K/Lratio is also normal. IgG is 630 as well. CBC still shows mild pancytopenia. She denies recent fevers, chills, night sweats, nausea, vomiting, diarrhea, voice changes, new rash, or weight loss. She has an implant of the tooth planned for April 03 2024. Was counseled on keeping an eye out on the fatigue 06/14/24: In the interim since her last visit, the patient continued to receive daratumumab based maintenance. Today is C18D1. Most recent paraprotein labs reveal what is likely a negative immunofixation, completely normal serum free light chains, immune paresis, and essentially normal hemoglobin, and persistent but stable thrombocytopenia and lymphopenia. 08/09/24: The patient denies fevers, chills, night sweats nausea vomiting and new rash. Her diarrheahas improved dramatically since her recent visit. Continues lenalidomide 10 mg days 1-21 of a 28 day cycle aspirin currently. She is receiving once monthly daratumumab. Paraprotein labs indicate a sustained serologic VGPR at minimum and likely a complete remission. 09/06/2024: Mrs Rivero presents for a scheduled follow up for continued management and evaluation of multiple myeloma. She is accompanied by her . Reports that she feels well. No new symptoms per her account. Available labs reviewed with patient and her . 10/08/2024 Kayley Dickinson is seen in treatment room CA4-09 for follow up. She is accompanied by her .Overall she reports that she is doing well. Endorses back pain if I do too much. Describes her appetite as good and weight about the same. Reviewed scheduling of bone stabilizing therapy, Zometa, every 3 months at this time. Available labs reviewed with patient and her . 11/01/2024 Kayley Dickinson was seen for a scheduled follow up visit in treatment room CA4 - 11. She is accompanied by her . States she is feeling well. No new symptoms to report. States her back bothersher if she is active and on her feet for prolonged periods of time. Back pain relieved with rest. Available labs reviewed with patient and her . Review of systems General: No fever , No chills, and No night sweats HEENT: No lumps, no difficulty chewing or swallowing, no enlarging tongue, no tooth aches. Musculoskeletal: no current pain Hematological: No bleeding or easy bruising. Lymphatic / Immune system: No lymph node enlargement or infection. Cardiovascular: No orthopnea, no dyspnea, no chest pain, no leg edema, no palpitations. Pulmonary: No dyspnea, no wheezing, no cough. Gastrointestinal: see HPI. No nausea, vomitting, diarrhea, constipation, abdominal pain, or blood in stool. PAST MEDICAL HISTORY Diagnosis Date Advance directive discussed with patient 02/25/2022 Discussed 02/2022 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 rich plaque 03/31/2019 Current use of proton pump inhibitor 07/30/2019 Elevated fasting blood sugar 03/29/2019 GERD without esophagitis 03/29/2019 High cholesterol History of 2019 novel coronavirus disease (COVID-19) 09/07/202202/2022 History of squamous cell carcinoma of skin 03/31/2019 Right side of nose Hypothyroidism, acquired 03/29/[address] 02/25/2022 DPA: Micaela () Medicare annual wellness visit, subsequent 08/17/2020 Medical B eligibilty date 11/21/2002 Last done: 02/11/2020 Mixed hyperglyceridemia 03/29/2019 Multiple myeloma (HCC) 02/13/2023 Osteopenia of spine 03/29/2019 PAST SURGICAL HISTORY Procedure Laterality Date CATARACT EXTRACTION HX Bilateral 2017 COLONOSCOPY 10/25/2021 repeat only if needed HYSTERECTOMY partial - age 40 MASTECTOMY, SIMPLE, COMPLETE Bilateral 1977 with implants for fibrocystic disease (?) NUCLEAR STRESS TEST (WT<440#) (UNION) 08/09/2013 old records: negative PAST SURGICAL HISTORY OF 1995 breast implants Allergies / intolerances ALLERGIES Allergen Reactions Sulfa (Sulfonamide * Swelling Adhesive Tape-Silic* Rash Medications REVLIMID 10 mg capsule Take 1 capsule (10 MG) by mouth daily at bedtime for 21 days on and 7 days off. acyclovir (ZOVIRAX) 400 mg tablet Take 1 tablet by mouth once daily. levothyroxine (SYNTHROID) 50 mcg tablet Take 1 tablet by mouth once daily. Take on empty stomach. For Thyroid. omeprazole (PRILOSEC) 40 mg capsule Take 1 capsule by mouth daily before breakfast. 1/2 hr before meal. pravastatin (PRAVACHOL) 80 mg tablet Take 1 tablet by mouth once daily. ondansetron (ZOFRAN) 8 mg tablet Take 1 tablet by mouth once daily as needed for nausea/vomiting. cyanocobalamin (VITAMIN B-12) 500 mcg tablet Take 1 tablet by mouth once daily. FERROUS SULFATE ORAL Take 1 tablet by mouth. aspirin, enteric coated (ASPIRIN, ENTERIC COATED) 81 mg EC tablet Take 81 mg by mouth. omega-3 acid ethyl esters (LOVAZA) 1 gram capsule Take 1 g by mouth. calcium carbonate-vitamin D3 (CALTRATE WITH VITAMIN D3) 600 mg(1,500mg) -800 unit tab Take 1 tabletby mouth twice daily. Social History Tobacco Use Smoking status: Never Smokeless tobacco: Never Vaping Use Vaping status: Never Used Substance Use Topics Alcohol use: Not Currently Drug use: Not Currently FAMILY HISTORY Problem Relation Age of Onset Heart Failure Mother Diabetes Sister Hyperlipidemia Sister Thyroid Sister Breast Cancer Maternal Grandmother Diabetes Daughter Hyperlipidemia Sister Alzheimer's Disease No Family History Colon Cancer No Family History Prostate Cancer No Family History Ovarian cancer No Family History Uterine Cancer No Family History Coronary Artery Disease No Family History Hypertension No Family History Kidney Disease No Family History Seizures No Family History Stroke No Family History Physical examination Temp Pulse Resp SYSTOLIC DIASTOLIC SpO2 11/01/2024 36.6 C (97.8 F) 68 16 141 51 98 % ECOG PS: 1- Restricted in physically strenuous activity. Carries out light duty. General appearance: Well appearing, alert, in no acute distress, well-hydrated, well nourished. HEENT: No lumps, no macroglossia, no icterus. Mucous membranes pink. Neck: Supple, no adenopathy Lungs: even chest rise and fall. Extremities: No deformities, edema. Laboratory tests WBC (k/uL) Date Value 10/28/2024 3.29 10/04/2024 3.45 09/02/2024 3.61 08/05/2024 3.39 07/08/2024 3.61 06/11/2024 3.46 05/14/2024 3.45 04/15/2024 3.74 03/22/2024 4.09 02/19/2024 3.49 09/06/2021 6.85 03/15/2021 7.83 02/04/2021 6.15 01/31/2020 5.74 Abs Neut (ANC) (k/uL) Date Value 09/06/2021 4.61 03/15/2021 5.08 02/04/2021 3.89 01/31/2020 3.68 Abs Neut (k/uL) Date Value 10/28/2024 2.13 10/04/2024 2.09 09/02/2024 2.35 08/05/2024 2.17 07/08/2024 2.46 06/11/2024 2.20 05/14/2024 2.18 04/15/2024 2.79 03/22/2024 2.84 02/19/2024 2.42 Hemoglobin (g/dL) Date Value 10/28/2024 11.8 10/04/2024 11.9 09/02/2024 11.9 08/05/2024 11.1 07/08/2024 10.7 06/11/2024 11.7 05/14/2024 11.3 04/15/2024 11.8 03/22/2024 11.4 02/19/2024 11.0 09/06/2021 14.0 03/15/2021 14.0 02/04/2021 13.3 01/31/2020 13.3 Platelet Count (k/uL) Date Value 10/28/2024 99 10/04/2024 84 09/02/2024 106 08/05/2024 112 07/08/2024 142 06/11/2024 86 05/14/2024 92 04/15/2024 107 03/22/2024 98 02/19/2024 115 09/06/2021 157 03/15/2021 173 02/04/2021 148 01/31/2020 168 Glucose (mg/dL) Date Value 10/28/2024 88 10/04/2024 118 09/02/2024 94 08/05/2024 126 07/08/2024 91 06/11/2024 107 05/14/2024 104 04/15/2024 112 03/19/2024 96 02/19/2024 121 02/04/2021 98 01/31/2020 90 Creatinine (mg/dL) Date Value 10/28/2024 0.91 10/04/2024 0.80 09/02/2024 0.96 08/05/2024 0.91 07/08/2024 0.91 06/11/2024 1.00 05/14/2024 0.85 04/15/2024 0.91 03/19/2024 0.93 02/19/2024 0.94 02/04/2021 0.72 01/31/2020 0.70 Calcium (mg/dL) Date Value 02/04/2021 9.1 01/31/2020 9.5 Calcium, Total (mg/dL) Date Value 10/28/2024 9.6 10/04/2024 8.8 09/02/2024 9.8 08/05/2024 9.4 07/08/2024 9.2 06/11/2024 9.1 05/14/2024 8.8 04/15/2024 9.1 03/19/2024 9.3 02/19/2024 8.2 M-Protein Concentration (g/dL) Date Value 10/28/2024 0.00 10/04/2024 0.00 09/02/2024 0.00 08/05/2024 0.00 07/08/2024 0.00 06/11/2024 0.00 05/14/2024 0.00 04/15/2024 0.00 03/19/2024 0.00 02/19/2024 0.00 01/23/2024 0.16 11/28/2023 0.15 10/31/2023 0.17 10/05/2023 0.19 09/06/2023 0.24 08/09/2023 0.29 07/13/2023 0.31 06/29/2023 0.33 06/14/2023 0.40 05/30/2023 0.39 05/18/2023 0.46 05/04/2023 0.06 04/20/2023 0.13 04/06/2023 0.58 03/29/2023 0.11 03/02/2023 1.20 02/22/2023 1.35 02/15/2023 1.39 01/17/2023 1.19 [place] Free, Serum Date Value 10/28/2024 12.3 mg/L 10/04/2024 14.1 mg/L 09/02/2024 16.4 mg/L 08/05/2024 15.8 mg/L 07/08/2024 13.5 mg/L 06/11/2024 15.0 mg/L 05/14/2024 17.0 mg/L 04/15/2024 13.3 mg/L 03/19/2024 17.1 mg/L 02/19/2024 16.0 mg/L 01/23/2024 16.7 mg/L 11/28/2023 17.3 mg/L 10/31/2023 15.6 mg/L 10/05/2023 16.2 mg/L 09/06/2023 15.5 mg/L 08/09/2023 16.0 mg/L 07/13/2023 Comment: Unable to assay. Specimen hemolyzed. Rarely, increased serum free light chains levels may not be detected or accurately quantified due to prozone phenomenon or in high viscosity samples using this immunoturbidimetric assay. Correlation with other laboratory results and clinical findings is recommended. The [place] Free Light Chain was performed using the Binding Site Optilite immunoturbidimetric method. Result obtained with different assay methods or kits cannot be used interchangeably. 06/29/2023 21.2 mg/L 06/14/2023 18.6 mg/L 05/30/2023 21.7 mg/L 05/18/2023 20.8 mg/L 05/04/2023 20.8 mg/L 04/20/2023 17.7 mg/L 04/06/2023 21.9 mg/L 03/29/2023 21.4 mg/L 03/02/2023 21.3 mg/L 02/22/2023 30.5 mg/L 02/15/2023 35.2 mg/L [place] Free, Serum (mg/L) Date Value 10/28/2024 15.2 10/04/2024 15.3 09/02/2024 15.7 08/05/2024 18.6 07/08/2024 14.5 06/11/2024 16.3 05/14/2024 17.1 04/15/2024 14.2 03/19/2024 18.2 02/19/2024 19.4 01/23/2024 18.4 11/28/2023 16.8 10/31/2023 15.8 10/05/2023 14.7 09/06/2023 13.9 08/09/2023 13.0 07/13/2023 10.4 06/29/2023 11.5 06/14/2023 9.5 05/30/2023 10.4 05/18/2023 10.1 05/04/2023 10.4 04/20/2023 6.6 04/06/2023 13.0 03/29/2023 13.0 03/02/2023 4.6 02/22/2023 11.1 02/15/2023 10.4 Interpretation (MPA) (no units) Date Value 10/28/2024 Poorly defined region of restricted mobility in IgG and kappa lanes. Pattern is less well defined or fainter than typically seen in monoclonal gammopathy. This could represent either an atypical presentation of polyclonal immunoglobulins or the presence of a low level IgG kappa monoclonal gammopathy. If clinically indicated, urine monoclonal protein analysis and serum free light chain measurements are recommended to evaluate further for monoclonal gammopathy. Clinical correlation is necessary. 06/11/2024 Poorly defined region of restricted mobility in the lambda alejandro. Pattern is less well defined or fainter than typically seen in monoclonal gammopathy. This could represent either an atypical presentation of polyclonal immunoglobulins or the presence of a low level lambda containing monoclonal gammopathy. If clinically indicated, urine monoclonal protein analysis and serum free light chain measurem ents are recommended to evaluate further for monoclonal gammopathy. Clinical correlation is necessary. 04/15/2024 There is a faint band in the IgG and kappa lanes. The patient is receiving a therapeutic monoclonalantibody, for which the electrophoretic properties have not been well-defined. Cannot exclude the possibility that this band represents a therapeutic monoclonal antibody rather than an IgG kappa paraprotein. Recommend correlation with serum free light chain and urine monoclonal protein analysis. 01/23/2024 There is an atypical restricted band present in the IgG and kappa regions. The location of the IgG kappa band suggests the presence of daratumumab, although one cannot rule out the possibility that this band represents a disease-related monoclonal protein. If clinically required, specific testing for daratumumab may be ordered to confirm the presence of the drug in this patient. 11/28/2023 There are two atypical restricted bands present in the IgG and kappa regions. The location of the IgG kappa band suggests the presence of daratamumab. However the second band has a different migration pattern and is unlikely to represent daratumumab. Poorly defined region of restricted mobility in the lambda alejandro. Pattern is less well defined or fainter than typically seen in monoclonal gammopathy. This could represent either an atypical presentation of polyclonal immunoglobulins or the presence of a low level lambda containing monoclonal gammopathy. Imaging - MRI 12/29/2022: demonstrating mild expansion and irregular cortical bone in medial left clavicle. - Bone scintography 01/05/2023: increased uptake in left sternoclavicular joint, and medial clavicle. - CT left clavicle/shoulder 01/11/2023: permeative lytic lesion with pathological fracture of left medial clavicle. Low-dose CT scan of the whole body (02/22/2023) 1. Stable expansile, lytic bone lesion with associated cortical destruction involving the medial left clavicle, corresponding with the site of recent biopsy. 2. There is a lytic lesion involving the posterior right ninth rib at the costovertebral joint with disruption of the posterior cortex. 3. No other lytic bone lesions identified. 4. 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 Correlation with prior outside studies, if available, would be helpful. This could be further evaluated with dedicated head CT. 5. Additional findings as above which are stable from the recent chest and abdominopelvic CT exams. Pathology: Image guided biopsy of the mid left clavicle (01/30/2023) FINAL DIAGNOSIS A. Lesion, left clavicular head, biopsy: - Plasma cell neoplasm (kappa). - See comment. CVC/mm/02/01/2023 Diagnosis Comment Histologic sections show fragments of blood clot associated with clusters of plasma cells. The plasma cells are intermediate sized, with abundant cytoplasm and round, eccentric nuclei with mature chromatin. Immunohistochemical stains have been performed with appropriately staining controls. The plasma cells are positive for CD138. On the stains for kappa or lambda they appear monotypic kappa. 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 Further classification of this process requires correlation with clinical, radiologic, and laboratory findings. Impression and Plan Cancer Staging No matching staging information was found for the patient. #multiple myeloma Cytogenetic risk category: Standard risk Frailty Score: 0 IMWG Response Criteria: Renal: Normal creatinine, clinically no evidence for renal dysfunction. Infectious diseases: No current infection, no need for prophylaxis Musculoskeletal: Chronic pain, satisfactorily controlled. Bone modifying therapy: zometa Venous thromboembolism risk: No need for DVT prophylaxis control counseling: Does not apply since patient is naturally postmenopausal for greater than24 months or post hysterectomy or post bilateral oophorectomy Neurology: No neurologic symptoms Health maintenance discussed: Regular exercise and Appropriate diet Side effects from current medications: None Mrs. Dickinson is an 88-year-old female with excellent performance status who was recently diagnosedwith a fracture of the left mid clavicle without evidence of trauma to the site. An image guided biopsy revealed plasma cell involvement and a initial protein electrophoresis demonstrated a monoclonal paraprotein 1.19 mg/dL. Cross-sectional imaging revealed no evidence of additional osseous disease. She continues on the AGNES regimen with excellent tolerance of treatment and performance status. Her intact monoclonal paraprotein has fluctuated; however, this is in the context of daratumumab treatment and an underlying CD5+ B-cell clone. Her total IgG level has normalized and there are no other i ndications of symptomatic or biochemical progression. Overall, she is likely at least achieved a VGPR and probably a CR. Her immunofixation remains negative. We will continue aspirin, acyclovir, and bone stabilizing therapy. Plan Summary: -Continue daratumumab monthly and lenalidomide (dexamethasone dropped based on Agnes protocol) with lenalidomide 10 mg day 1 through 21 of a 28-day cycle for now -No further dexamethasone with treatment -started bone stabilizing therapy with zometa 04/21/2023 -Continue acyclovir and aspirin -RTC in 4 weeks I spent a total of 30 minutes on the date of the service which included preparing to see the patient, completing clinical documentation, obtaining and/or reviewing separately obtained HPI, reviewing test results again and restrictions due to results, available treatment, signs and symptoms that yessica ant follow up, counseling and educating the patient/family/caregiver. Medical Decision Making: Medical Decision Making Level: 1 - N/A ASSESSMENT/PLAN: 1. Multiple myeloma in remission (HCC) - ICD9: 203.01, ICD10: C90.01 - CHEMO SCHEDULING Vince Freitas APRN.[facility] [place] [address] Email: [email or web address] documented in this encounterMagruder Hospital04-11-2025 NoteK[facility]03-24-[facility] History of Present illness Narrative* Ramya Smith RPh - 10/14/2024 10:55 AM EDT [facility] SPECIALTY CLINICAL ASSESSMENT - CELGENE REMS HEADER V4 Patient is not a female of reproductive potential Lenalidomide - Patient Not of Reproductive Potential V3 All boxes and spaces must be marked or filled in during counseling with the patient for every prescription. Ramya Smith RPh 10:56 AM October 14, 2024 Addendum October 16, 2024 11:08 AM : All REMS components have been verified by clinical pharmacist and patient is (or continues to be) an appropriate candidate for treatment. Confirm prescription contains authorization number and patient risk category Confirm order is for 28 day supply or less Confirm if refill, there are 7 days or less remaining of therapy on the existing prescription. Confirm order still appropriate to fill 30 days from authorization date For risk category females of reproductive potential: 7 days from last test Drug Interaction and Counseling Checklist Completed Verify all items checked as appropriate in the checklist Confirmation number obtained on same date order will be shipped and documented in the checklist accordingly REMS WAMB flag resolved after confirmation number obtained Medication will be shipped overnight and within 24 hours of receiving confirmation number Confirmation numbers was obtained the same date the order is shipping out Signature required to confirm delivery Darell Chu PharmD Clinical Pharmacist, Oncology [facility] P: ; F: Pool: P [facility] Pool #: [id number] * Ramya Smith RPh - 10/14/2024 10:55 AM EDT [facility] Specialty Refill Assessment Medication(s): Revlimid Reviewed OV note on 10/08- Overall, she is likely at least achieved a VGPR and probably a CR. Her immunofixation remains negative. Labs reviewed. 10/04 SCr stable. Plt 84 (Grade 1). H/H + ANC wnl. Next clinic visit scheduled 11/01. Revlimid cycles (28DS: 21 on / 7 off) are as follows: C1D1 03/13/23 C16D1 05/02/24 - delayed d/t covid, approved by Tx team to resume C17D1 05/30/24 C18D1 07/01/24- delayed d/t infection/antibiotics x10d C19D1 07/29/24 C20D1 08/26/24 C21D1 09/23/24 C22D1 10/21/24 C23D1 11/18/24 REMS note: Pt's last survey was completed on 07/22/24. Next survey will be available on or after 12/30/24. Dispensing note: sending dosing calendar with shipment. ALLERGIES Allergen Reactions Sulfa (Sulfonamide * Swelling Adhesive Tape-Silic* Rash Patient's current medication list and adherence status to current therapy were reviewed by Specialty Pharmacy clinical pharmacist to identify any new drug interactions or non-compliance to therapy. Therapy continues to be appropriate for disease, patient response, and medical condition. Verification of therapeutic benefit and effectiveness with current therapy was completed. Adverse events, barriers in adherence, and side effects were assessed and addressed if applicable. Will proceed with refill with no changes in therapy - patient progressing towards achieving therapeutic goals based on medication- specific laboratory parameters, disease state markers and outcomes. Office/provider notes have been reviewed prior to dispensing the medication. Ramya Smith [facility] PharmD, BCPS Clinical Pharmacist, Oncology [facility] P: , F: Pool: P [facility] Pool #: [id number] Steam Finisher Assessment Patient confirmed: Yes Med/dose confirmed: Yes Supplies needed: No supplies needed Missed doses: No Estimated days supply on hand: 0 Next cycle/dose due: 10/21/24 Copay amount: 0 Copay form of payment: (n/a) Payment confirmed: (n/a) Delivery method: FedEx Signature required: Required ([facility], Medicaid, patient preference) Delivery address: [address] [place], [place] [id number], sig required Delivery date: 10/17/24 Questions or concerns for the pharmacist?: No Did you have any side effects believed to be related to this medication, that resulted in hospitalization?: No Current Outpatient Medications on File Prior to Visit Medication Sig REVLIMID 10 mg capsule Take 1 capsule (10 MG) by mouth daily at bedtime for 21 days on and 7 days off. acyclovir (ZOVIRAX) 400 mg tablet Take 1 tablet by mouth once daily. levothyroxine (SYNTHROID) 50 mcg tablet Take 1 tablet by mouth once daily. Take on empty stomach. For Thyroid. omeprazole (PRILOSEC) 40 mg capsule Take 1 capsule by mouth daily before breakfast. 1/2 hr before meal. pravastatin (PRAVACHOL) 80 mg tablet Take 1 tablet by mouth once daily. ondansetron (ZOFRAN) 8 mg tablet Take 1 tablet by mouth once daily as needed for nausea/vomiting. cyanocobalamin (VITAMIN B-12) 500 mcg tablet Take 1 tablet by mouth once daily. FERROUS SULFATE ORAL Take 1 tablet by mouth. aspirin, enteric coated (ASPIRIN, ENTERIC COATED) 81 mg EC tablet Take 81 mg by mouth. omega-3 acid ethyl esters (LOVAZA) 1 gram capsule Take 1 g by mouth. calcium carbonate-vitamin D3 (CALTRATE WITH VITAMIN D3) 600 mg(1,500mg) -800 unit tab Take 1 tabletby mouth twice daily. No current facility-administered medications on file prior to visit. [facility] RX SPECIALTY CLINICAL ASSESSMENT - HEMATOLOGY ONCOLOGY V6: Ivent complete: No Assessment to use: Refill Lab monitoring inclusive of CBC, Chem-7, and other labs as pertinent for therapy: Yes Chemo cycle timing assessment: Yes Assessment of injection issues: N/A Current medication list (including drug interaction assessment): Yes Experience of adverse reactions to the medication: Yes Date of influenza vaccination reminder: 04/01/2024 Date of most recent vaccination assessment: 04/01/2024 Treatment Plan Information: Diagnosis: Multiple myeloma - newly diagnosed Previous treatment(s): none, newly diagnosed Treatment plan: Revlimid (lenalidomide) + daratumumab + dexamethasone Starting Dose/Titration: Take 1 capsule (10mg) by mouth daily at bedtime for 21 days on, 7 days off. - Renal dose reduction required?: yes - CrCl 47mL/min, usual dose 25mg: PI recommends DR to 10mg daily, may increase to 15mg after 2 cycles if tolerating; dose reduced to 10 mg. Administration: - Take with or without food - Take at the same time each day with water; swallow whole Warnings: include but are not limited to - CONGRESSIONAL AIDE effects (dizziness, fatigue) - Tumor Flare, TLS - Venous and arterial thromboembolism (DVT, PE, TN, stroke) - BBW - Hematologic toxicity (neutropenia and thrombocytopenia) - BBW - Embryo- toxicity - BBW - No blood (or semen) donations during and 4 weeks post discontinuation Adverse reactions: include but are not limited to - Hepatotoxicity - Peripheral edema - Derm rxns (pruritis, skin rash, xeroderma) - Diarrhea > constipation; decrease appetite, abdominal pain - N/V (min to low) - BMS (neutropenia, thrombocytopenia, anemia) - Fatigue, asthenia, arthralgia, headache; back pain, muscle cramps/spasms Monitoring: - CBC with diff (MCL - weekly C1, Q2 weeks C2-4, then monthly; MDS - weekly x8 weeks, then at leastmonthly; MM - weekly x2 cycles; Q2 weeks C3, then monthly; Follicular and marginal zone lymphoma - weekly x3 weeks, Q2 weeks C2-4, then monthly) - sCr, LFTs (periodically) - TSH (baseline, then every 2-3 months) - ECG when clinically indicated - S/S infection, bruising, bleeding, hepatoxocity, 2ndry malignancy, thromboembolism, derm toxicity, TLS - test (for females of reproductive potential) - Hep B screening Drug-Drug Interactions: no interactions identified by Jennifer Baseline: - CBCD 02/22/23 - TSH 1.680 on 02/15/23 - CrCl 47mL/min on 02/22/23 - Hep B screening 02/23/23 Est. Tx Plan Start Date: No information available Estimated Start Date Info: Per Dr. Voss's discretion MDO to confirm DR for current CrCl - dose adjusted to 10 mg daily. Est. Estimated Treatment Duration: Continue until disease progression or unacceptable toxicity. Ramya Smith RPh documented in this encounterMagruder Hospital03-24-2025 NoteK[facility]03-24-2025 NoteK[facility]tering [facility]03-18-2025 History of Present illness Narrative* Vince Freitas APRN.[employer]BE [employer]ENDER - 10/08/2024 2:00 PM EDT Images from the original note were not included. [facility] Plasma Cell Disorder Clinic (Elements copied from my note dated September 06, 2024 have been reviewed and updated where appropriate, and all reflect current assessment and medical decision making during today's encounter, October 08, 2024) Reason for visit: follow up myeloma. Baseline assessment on initial diagnosis date 2022 Cancer Staging No matching staging information was found for the patient. Symptomatic multiple myeloma, I Related Organ or Tissue Involvement (CRAB) or other Myeloma Defining Event (MDE): Bone disease: At least one lytic bone lesion on XR or CT if BMPC >=10%, at least 2 bone lesions on XR or CT if BMPC<10%, location of lytic lesion(s): Left clavicular head Antecedent plasma cell dyscrasia: No Myeloma FISH panel: Trisomy 15, trisomy 11 Cytogenetics: 46, XX LDH: 175 ISS stage: ISS Stage II Monoclonal proteins at diagnosis: Serum M-spike: 1.19 gm/dL, Involved serum free light chains: 35.2mg/L, and Uninvolved serum free light chains: 10.4 mg/L Total immunoglobulins at diagnosis: IgG = 1980 mg/dl, IgA = 58 mg/dl, IgM = 38 mg/dl Bone marrow plasma cell infiltration: 10-15% plasma cells in the marrow Systemic treatment and disease course Start 02/23/2023-current Daratumumab, lenalidomide (per AGNES) - Myeloma response according to: International uniform response criteria, Durie et al. Leukemia 20:1467-73, 2006 and Moraie et al. ERRATUM in Leukemia 21:1134, 2007. Update in Debra SV et al. Blood 117: [id number], 2011 Local treatments (radiation, surgery, kyphoplasty) 03/02/2023 to 03/08/2023 The Left clavicle received a total dose of 2000 cGy in 5 fractions at 400 cGy/fraction using 6 MV photons with Wedged Pair technique. History of present illness Mrs. Dickinson is an 87-year-old female with past medical history that includes hypothyroidism, GERD, hyperlipidemia, prediabetes, and possible coronary artery disease who was initially evaluated for left mid clavicular pain and swelling at an urgent care facility on 12/26/2022. A 2 view x-ray of the clavicle obtained on that occasion did not reveal evidence of an osseous abnormality. Of note, the pa tiejona did not experience antecedent trauma to the clavicle prior to that visit. He was initiated onMedrol Dosepak at the time of discharge. Follow-up MRI of the clavicle on 12/29/2022 demonstrated mild expansion and irregular cortical bone in the medial left clavicle. A bone scintigraphy study on 01/05/2023 demonstrated increased uptake in the left sternoclavicular joint medial clavicle, and a CT of the left clavicle and shoulder on 01/11/2023 demonstrated a permeative lytic lesion with a pathologic fracture of the left medial clavicle. The patient was evaluated in our orthopedic oncology clinic on 01/17/2023. CT scans of the chest abdomen and pelvis did not demonstrate any other evidence of overt osseous disease but did demonstrate hepatic hypodensities for which an MRI of the liver was suggested. An image guided biopsy left clavicle was performed demonstrated sheets of plasma cells. Currently paraprotein work-up prior to the current visit is a serum protein electrophoresis demonstrating a monoclonal spike of 1.19 mg/dL and a spot urine protein electrophoresis that does demonstrate a monoclonal paraprotein. The patient has no evidence of underlying bone marrow involvement in terms of her CBC which is entirely normal. Thereis no evidence of renal dysfunction or hypercalcemia. She denies a personal history of other pathologic fractures. She denies recent fevers, chills, night sweats, nausea, vomiting, diarrhea, voice changes, new rash, or weight loss. She has no personal history of malignancy and no strong family history of thrombophilia, bleeding diathesis, or hematologic cancer. Interim Updates: 03/31/2023: The returns evaluation management of symptomatic myeloma. She denies fevers, chills, night sweat nausea, vomiting, diarrhea, and peripheral neuropathy. She continues on aspirin and acyclovir. Pleated radiation therapy to the left clavicle with no residual pain at the site of the previous fracture. Her paraprotein labs demonstrate normalization of her involved serum free light chain and a decrease in her intact monoclonal paraprotein by approximately 50%. There is no evidence of renal dysfunction or hypercalcemia. Whole body low dose CT scan (see below) demonstrates 1/9 rib lytic lesion in addition to the known clavicular lesion. 05/05/2023: Mrs Dickinson is seen for a scheduled follow up visit. She is accompanied by her . Overall, she reports feeling well. Per her account, she has no pain in the area of her L clavicle.Reports two episodes of mild epistaxis over past month. States she has seen ENT in [place] and was told the recurrent nose bleeds were due to the anatomy of the Right side of her nose. Per patient, she is occasionally constipated and eating prunes usually relieves the constipation. Confirms compliance with Revlimid dosing and schedule. 05/31/23: Mrs. Dickinson is seen for a scheduled follow up visit, accompanied by her . She reports overall feeling well. She woke up this morning with a bruise just to the right of the sternoclavicular junction. She denies fevers, chills, night sweats, nausea, vomiting and diarrhea. She deniesnew rashes. Her paraprotein labs from last visit demonstrate a preserved free light chain ratio fabiola fluctuating intact monoclonal paraprotein by protein electrophoresis. 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 Her IgG level has normalized. She has very mild leukopenia and thrombocytopenia. There is no evidence of worsening anemia. There is no evidence of hypercalcemia. Continues on aspirin for thromboprophylaxis and acyclovir for VZV prophylaxis. Performance status is unchanged with the initiation of therapy she notes she is able to complete all of her ADLs and IADLs independently. 07/14/23: Constipation, the patient denies fevers, chills, night sweats, nausea, vomiting, diarrhea, and significant weight changes. 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 Serologically, her immunofixation demonstrates what is likely the presence of daratumumab. Her light chains remain within normal range with a normalized ratio. Her low level intact monoclonal paraprotein may represent daratumumab. She continues to take aspirin and acyclovir as directed. She complains of no new areas of bony pain. 12/01/23: At the present visit, patient denies fevers, chills, night, nausea, vomiting, diarrhea, significantly. She estimates that she wakes at 5 AM every day and is able to work for several hours before becoming tired in the early afternoon. She has not noticed any lymphadenopathy. She has not noticed any early satiety. Paraprotein labs indicate a complete remission. She remains on lenalidomide 10 mg daily day 1 through 21 of a 28-day cycle and monthly daratumumab. We have taken dexamethasone out of her treatment plan. She also receives monthly zoledronic acid. There is no evidence of renal dysfunction, hypercalcemia, or new onset cytopenias. 12/29/23: pt called in last week for brb from rectum. Has known hemorrhoids. Issue subsided without additional interventions. H/h stable. Denies other symptoms. 01/26/24: Mrs. Dickinson returns for follow up. Continues to tolerate treatment well. She tells me sheis recommended to have a dental procedure where they will take some tissue from her upper gum and put it into an implant on her lower jaw. She said her dentist wanted clearance from Dr. Beatty and will be sending the information to him to review. She wont be scheduled until she has an ok from our team. I advised her this will need to be reviewed once we have the details of what they are planning. In prep for this we will hold zometa until we know definitely if she will have this done or not. Started revlimid 01/15. 02/21/24: The patient here for follows up and tolerating the treatment well. Her lab workup from 02/19/24 shows an atypical region of restricted mobility on SPEP and no M protein on immunofixation. K/Lratio is also normal. IgG is 630 as well. CBC still shows mild pancytopenia. She denies recent fevers, chills, night sweats, nausea, vomiting, diarrhea, voice changes, new rash, or weight loss. She has an implant of the tooth planned for April 03 2024. Was counseled on keeping an eye out on the fatigue 06/14/24: In the interim since her last visit, the patient continued to receive daratumumab based maintenance. Today is C18D1. Most recent paraprotein labs reveal what is likely a negative immunofixation, completely normal serum free light chains, immune paresis, and essentially normal hemoglobin, and persistent but stable thrombocytopenia and lymphopenia. 08/09/24: The patient denies fevers, chills, night sweats nausea vomiting and new rash. Her diarrheahas improved dramatically since her recent visit. Continues lenalidomide 10 mg days 1-21 of a 28 day cycle aspirin currently. She is receiving once monthly daratumumab. Paraprotein labs indicate a sustained serologic VGPR at minimum and likely a complete remission. 09/06/2024: Mrs Rivero presents for a scheduled follow up for continued management and evaluation of multiple myeloma. She is accompanied by her . Reports that she feels well. No new symptoms per her account. Available labs reviewed with patient and her . 10/08/2024 Kayley Dickinson is seen in treatment room CA4-09 for follow up. She is accompanied by her .Overall she reports that she is doing well. Endorses back pain if I do too much. Describes her appetite as good and weight about the same. Reviewed scheduling of bone stabilizing therapy, Zometa, every 3 months at this time. Available labs reviewed with patient and her . Review of systems General: No fever , No chills, and No night sweats HEENT: No lumps, no difficulty chewing or swallowing, no enlarging tongue, no tooth aches. Musculoskeletal: no current pain Hematological: No bleeding or easy bruising. Lymphatic / Immune system: No lymph node enlargement or infection. Cardiovascular: No orthopnea, no dyspnea, no chest pain, no leg edema, no palpitations. Pulmonary: No dyspnea, no wheezing, no cough. Gastrointestinal: see HPI. No nausea, vomitting, diarrhea, constipation, abdominal pain, or blood in stool. PAST MEDICAL HISTORY Diagnosis Date Advance directive discussed with patient 02/25/2022 Discussed 02/2022 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 rich plaque 03/31/2019 Current use of proton pump inhibitor 07/30/2019 Elevated fasting blood sugar 03/29/2019 GERD without esophagitis 03/29/2019 High cholesterol History of 2019 novel coronavirus disease (COVID-19) 09/07/202202/2022 History of squamous cell carcinoma of skin 03/31/2019 Right side of nose Hypothyroidism, acquired 03/29/[address] 02/25/2022 DPA: Micaela () Medicare annual wellness visit, subsequent 08/17/2020 Medical B eligibilty date 11/21/2002 Last done: 02/11/2020 Mixed hyperglyceridemia 03/29/2019 Multiple myeloma (HCC) 02/13/2023 Osteopenia of spine 03/29/2019 PAST SURGICAL HISTORY Procedure Laterality Date CATARACT EXTRACTION HX Bilateral 2017 COLONOSCOPY 10/25/2021 repeat only if needed HYSTERECTOMY partial - age 40 MASTECTOMY, SIMPLE, COMPLETE Bilateral 1977 with implants for fibrocystic disease (?) NUCLEAR STRESS TEST (WT<440#) ([facility]) 08/09/2013 old records: negative PAST SURGICAL HISTORY OF 1995 breast implants Allergies / intolerances ALLERGIES Allergen Reactions Sulfa (Sulfonamide * Swelling Adhesive Tape-Silic* Rash Medications REVLIMID 10 mg capsule Take 1 capsule (10 MG) by mouth daily at bedtime for 21 days on and 7 days off. levothyroxine (SYNTHROID) 50 mcg tablet Take 1 tablet by mouth once daily. Take on empty stomach. For Thyroid. omeprazole (PRILOSEC) 40 mg capsule Take 1 capsule by mouth daily before breakfast. 1/2 hr before meal. acyclovir (ZOVIRAX) 400 mg tablet Take 1 tablet by mouth once daily. pravastatin (PRAVACHOL) 80 mg tablet Take 1 tablet by mouth once daily. ondansetron (ZOFRAN) 8 mg tablet Take 1 tablet by mouth once daily as needed for nausea/vomiting. cyanocobalamin (VITAMIN B-12) 500 mcg tablet Take 1 tablet by mouth once daily. FERROUS SULFATE ORAL Take 1 tablet by mouth. aspirin, enteric coated (ASPIRIN, ENTERIC COATED) 81 mg EC tablet Take 81 mg by mouth. omega-3 acid ethyl esters (LOVAZA) 1 gram capsule Take 1 g by mouth. calcium carbonate-vitamin D3 (CALTRATE WITH VITAMIN D3) 600 mg(1,500mg) -800 unit tab Take 1 tabletby mouth twice daily. Social History Tobacco Use Smoking status: Never Smokeless tobacco: Never Vaping Use Vaping status: Never Used Substance Use Topics Alcohol use: Not Currently Drug use: Not Currently FAMILY HISTORY Problem Relation Age of Onset Heart Failure Mother Diabetes Sister Hyperlipidemia Sister Thyroid Sister Breast Cancer Maternal Grandmother Diabetes Daughter Hyperlipidemia Sister Alzheimer's Disease No Family History Colon Cancer No Family History Prostate Cancer No Family History Ovarian cancer No Family History Uterine Cancer No Family History Coronary Artery Disease No Family History Hypertension No Family History Kidney Disease No Family History Seizures No Family History Stroke No Family History Physical examination 10/08/2024 36.7 C (98.1 F) Oral 150/82 76 18 ECOG PS: 1- Restricted in physically strenuous activity. Carries out light duty. General appearance: Well appearing, alert, in no acute distress, well-hydrated, well nourished. HEENT: No lumps, no macroglossia, no icterus. Mucous membranes pink. Neck: Supple, no adenopathy Lungs: even chest rise and fall. Extremities: No deformities, edema. Laboratory tests WBC (k/uL) Date Value 10/04/2024 3.45 09/02/2024 3.61 08/05/2024 3.39 07/08/2024 3.61 06/11/2024 3.46 05/14/2024 3.45 04/15/2024 3.74 03/22/2024 4.09 02/19/2024 3.49 01/23/2024 3.13 09/06/2021 6.85 03/15/2021 7.83 02/04/2021 6.15 01/31/2020 5.74 Abs Neut (ANC) (k/uL) Date Value 09/06/2021 4.61 03/15/2021 5.08 02/04/2021 3.89 01/31/2020 3.68 Abs Neut (k/uL) Date Value 10/04/2024 2.09 09/02/2024 2.35 08/05/2024 2.17 07/08/2024 2.46 06/11/2024 2.20 05/14/2024 2.18 04/15/2024 2.79 03/22/2024 2.84 02/19/2024 2.42 01/23/2024 2.19 Hemoglobin (g/dL) Date Value 10/04/2024 11.9 09/02/2024 11.9 08/05/2024 11.1 07/08/2024 10.7 06/11/2024 11.7 05/14/2024 11.3 04/15/2024 11.8 03/22/2024 11.4 02/19/2024 11.0 01/23/2024 11.3 09/06/2021 14.0 03/15/2021 14.0 02/04/2021 13.3 01/31/2020 13.3 Platelet Count (k/uL) Date Value 10/04/2024 84 09/02/2024 106 08/05/2024 112 07/08/2024 142 06/11/2024 86 05/14/2024 92 04/15/2024 107 03/22/2024 98 02/19/2024 115 01/23/2024 100 09/06/2021 157 03/15/2021 173 02/04/2021 148 01/31/2020 168 Glucose (mg/dL) Date Value 10/04/2024 118 09/02/2024 94 08/05/2024 126 07/08/2024 91 06/11/2024 107 05/14/2024 104 04/15/2024 112 03/19/2024 96 02/19/2024 121 01/23/2024 89 02/04/2021 98 01/31/2020 90 Creatinine (mg/dL) Date Value 10/04/2024 0.80 09/02/2024 0.96 08/05/2024 0.91 07/08/2024 0.91 06/11/2024 1.00 05/14/2024 0.85 04/15/2024 0.91 03/19/2024 0.93 02/19/2024 0.94 01/23/2024 0.93 02/04/2021 0.72 01/31/2020 0.70 Calcium (mg/dL) Date Value 02/04/2021 9.1 01/31/2020 9.5 Calcium, Total (mg/dL) Date Value 10/04/2024 8.8 09/02/2024 9.8 08/05/2024 9.4 07/08/2024 9.2 06/11/2024 9.1 05/14/2024 8.8 04/15/2024 9.1 03/19/2024 9.3 02/19/2024 8.2 01/23/2024 8.5 M-Protein Concentration (g/dL) Date Value 09/02/2024 0.00 08/05/2024 0.00 07/08/2024 0.00 06/11/2024 0.00 05/14/2024 0.00 04/15/2024 0.00 03/19/2024 0.00 02/19/2024 0.00 01/23/2024 0.16 11/28/2023 0.15 10/31/2023 0.17 10/05/2023 0.19 09/06/2023 0.24 08/09/2023 0.29 07/13/2023 0.31 06/29/2023 0.33 06/14/2023 0.40 05/30/2023 0.39 05/18/2023 0.46 05/04/2023 0.06 04/20/2023 0.13 04/06/2023 0.58 03/29/2023 0.11 03/02/2023 1.20 02/22/2023 1.35 02/15/2023 1.39 01/17/2023 1.19 [place] Free, Serum Date Value 10/04/2024 14.1 mg/L 09/02/2024 16.4 mg/L 08/05/2024 15.8 mg/L 07/08/2024 13.5 mg/L 06/11/2024 15.0 mg/L 05/14/2024 17.0 mg/L 04/15/2024 13.3 mg/L 03/19/2024 17.1 mg/L 02/19/2024 16.0 mg/L 01/23/2024 16.7 mg/L 11/28/2023 17.3 mg/L 10/31/2023 15.6 mg/L 10/05/2023 16.2 mg/L 09/06/2023 15.5 mg/L 08/09/2023 16.0 mg/L 07/13/2023 Comment: Unable to assay. Specimen hemolyzed. Rarely, increased serum free light chains levels may not be detected or accurately quantified due to prozone phenomenon or in high viscosity samples using this immunoturbidimetric assay. Correlation with other laboratory results and clinical findings is recommended. The [place] Free Light Chain was performed using the Binding Site Optilite immunoturbidimetric method. Result obtained with different assay methods or kits cannot be used interchangeably. 06/29/2023 21.2 mg/L 06/14/2023 18.6 mg/L 05/30/2023 21.7 mg/L 05/18/2023 20.8 mg/L 05/04/2023 20.8 mg/L 04/20/2023 17.7 mg/L 04/06/2023 21.9 mg/L 03/29/2023 21.4 mg/L 03/02/2023 21.3 mg/L 02/22/2023 30.5 mg/L 02/15/2023 35.2 mg/L [place] Free, Serum (mg/L) Date Value 10/04/2024 15.3 09/02/2024 15.7 08/05/2024 18.6 07/08/2024 14.5 06/11/2024 16.3 05/14/2024 17.1 04/15/2024 14.2 03/19/2024 18.2 02/19/2024 19.4 01/23/2024 18.4 11/28/2023 16.8 10/31/2023 15.8 10/05/2023 14.7 09/06/2023 13.9 08/09/2023 13.0 07/13/2023 10.4 06/29/2023 11.5 06/14/2023 9.5 05/30/2023 10.4 05/18/2023 10.1 05/04/2023 10.4 04/20/2023 6.6 04/06/2023 13.0 03/29/2023 13.0 03/02/2023 4.6 02/22/2023 11.1 02/15/2023 10.4 Interpretation (MPA) (no units) Date Value 06/11/2024 Poorly defined region of restricted mobility in the lambda alejandro. Pattern is less well defined or fainter than typically seen in monoclonal gammopathy. This could represent either an atypical presentation of polyclonal immunoglobulins or the presence of a low level lambda containing monoclonal gammopathy. If clinically indicated, urine monoclonal protein analysis and serum free light chain measurem ents are recommended to evaluate further for monoclonal gammopathy. Clinical correlation is necessary. 04/15/2024 There is a faint band in the IgG and kappa lanes. The patient is receiving a therapeutic monoclonalantibody, for which the electrophoretic properties have not been well-defined. Cannot exclude the possibility that this band represents a therapeutic monoclonal antibody rather than an IgG kappa paraprotein. Recommend correlation with serum free light chain and urine monoclonal protein analysis. 01/23/2024 There is an atypical restricted band present in the IgG and kappa regions. The location of the IgG kappa band suggests the presence of daratumumab, although one cannot rule out the possibility that this band represents a disease-related monoclonal protein. If clinically required, specific testing for daratumumab may be ordered to confirm the presence of the drug in this patient. 11/28/2023 There are two atypical restricted bands present in the IgG and kappa regions. The location of the IgG kappa band suggests the presence of daratamumab. However the second band has a different migration pattern and is unlikely to represent daratumumab. Poorly defined region of restricted mobility in the lambda alejandro. Pattern is less well defined or fainter than typically seen in monoclonal gammopathy. This could represent either an atypical presentation of polyclonal immunoglobulins or the presence of a low level lambda containing monoclonal gammopathy. 10/31/2023 There are two atypical restricted bands present in the IgG and kappa regions. The location of the IgG kappa band suggests the presence of daratamumab. However the second band has a different migration pattern and is unlikely to represent daratumumab. Imaging - MRI 12/29/2022: demonstrating mild expansion and irregular cortical bone in medial left clavicle. - Bone scintography 01/05/2023: increased uptake in left sternoclavicular joint, and medial clavicle. - CT left clavicle/shoulder 01/11/2023: permeative lytic lesion with pathological fracture of left medial clavicle. Low-dose CT scan of the whole body (02/22/2023) 1. Stable expansile, lytic bone lesion with associated cortical destruction involving the medial left clavicle, corresponding with the site of recent biopsy. 2. There is a lytic lesion involving the posterior right ninth rib at the costovertebral joint with disruption of the posterior cortex. 3. No other lytic bone lesions identified. 4. 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 Correlation with prior outside studies, if available, would be helpful. This could be further evaluated with dedicated head CT. 5. Additional findings as above which are stable from the recent chest and abdominopelvic CT exams. Pathology: Image guided biopsy of the mid left clavicle (01/30/2023) FINAL DIAGNOSIS A. Lesion, left clavicular head, biopsy: - Plasma cell neoplasm (kappa). - See comment. CV/mm/02/01/2023 Diagnosis Comment Histologic sections show fragments of blood clot associated with clusters of plasma cells. The plasma cells are intermediate sized, with abundant cytoplasm and round, eccentric nuclei with mature chromatin. Immunohistochemical stains have been performed with appropriately staining controls. The plasma cells are positive for CD138. On the stains for kappa or lambda they appear monotypic kappa. 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 Further classification of this process requires correlation with clinical, radiologic, and laboratory findings. Impression and Plan Cancer Staging No matching staging information was found for the patient. #multiple myeloma Cytogenetic risk category: Standard risk Frailty Score: 0 IMWG Response Criteria: Renal: Normal creatinine, clinically no evidence for renal dysfunction. Infectious diseases: No current infection, no need for prophylaxis Musculoskeletal: Chronic pain, satisfactorily controlled. Bone modifying therapy: zometa Venous thromboembolism risk: No need for DVT prophylaxis control counseling: Does not apply since patient is naturally postmenopausal for greater than24 months or post hysterectomy or post bilateral oophorectomy Neurology: No neurologic symptoms Health maintenance discussed: Regular exercise and Appropriate diet Side effects from current medications: None Mrs. Dickinson is an 88-year-old female with excellent performance status who was recently diagnosedwith a fracture of the left mid clavicle without evidence of trauma to the site. An image guided biopsy revealed plasma cell involvement and a initial protein electrophoresis demonstrated a monoclonal paraprotein 1.19 mg/dL. Cross-sectional imaging revealed no evidence of additional osseous disease. She continues on the AGNES regimen with excellent tolerance of treatment and performance status. Her intact monoclonal paraprotein has fluctuated; however, this is in the context of daratumumab treatment and an underlying CD5+ B-cell clone. Her total IgG level has normalized and there are no other i ndications of symptomatic or biochemical progression. Overall, she is likely at least achieved a VGPR and probably a CR. Her immunofixation remains negative. We will continue aspirin, acyclovir, and bone stabilizing therapy. Plan Summary: -Continue daratumumab monthly and lenalidomide (dexamethasone dropped based on Agnes protocol) with lenalidomide 10 mg day 1 through 21 of a 28-day cycle for now -No further dexamethasone with treatment -started bone stabilizing therapy with zometa 04/21/2023 -Continue acyclovir and aspirin -RTC in 8 weeks I spent 30 minutes in the visit, with more than 50% of the total [id number] time of the visit in counseling / coordination of care. Medical Decision Making: Medical Decision Making Level: 1 - N/A ASSESSMENT/PLAN: 1. Multiple myeloma in remission (HCC) - ICD9: 203.01, ICD10: C90.01 - CHEMO SCHEDULING Vince rFeitas APRN.CNP Hematologic Oncology and Blood Disorders [place] [address] Email: [email or web address] documented in this encounterMagr[facility]03-[facility]25 [facility] Telephone encounter Note* Telephone Encounter - Pam Pierre RN - 09/20/2024 10:32 AM EST Spoke with patient. Let her know the situation with [facility], told her she could call and havethem run a test refill or wait until the next refill is processed. Patient verbalized understanding. JUAN Felix, RN Specialty Nurse Cultural Anthropology Professor [facility]02-28-2025 Miscellaneous Notes* Telephone Encounter - Pam Pierre RN - 09/20/2024 10:32 AM EST Spoke with patient. Let her know the situation with [facility], told her she could call and havethem run a test refill or wait until the next refill is processed. Patient verbalized understanding. JUAN Felix, RN Specialty Nurse Cultural Anthropology Professor * Telephone Encounter - Milady Sparks - 09/20/2024 10:21 AM EST Kayley Dickinson is calling Jaime Beatty MD today regarding 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 (Prescription assistance) Patient has been identified by name and birthdate. Patient states pharmacy that handles her Revlimid prescription is changing and is asking to speak to clinical team for assistance. Duration of symptoms: N/A Requesting response back: call at home [phone] (home) Milady Sparks September 20, 2024 documented in this encounterMagruder Hospital02-28-2025 Telephone encounter Note * Telephone Encounter - Milady Sparks - 09/20/2024 10:21 AM EST Kayley Dickinson is calling Jaime Beatty MD today regarding 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 (Prescription assistance) Patient has been identified by name and birthdate. Patient states pharmacy that handles her Revlimid prescription is changing and is asking to speak to clinical team for assistance. Duration of symptoms: N/A Requesting response back: call at home [phone] (home) Milady Sparks September 20, 2024 [facility]02-25-[facility] History of Present illness Narrative* Ramya Smith RPh - 09/17/2024 11:22 AM EST [facility] CLINICAL ASSESSMENT - CELGENE REMS HEADER V4 Patient is not a female of reproductive potential Lenalidomide - Patient Not of Reproductive Potential V3 All boxes and spaces must be marked or filled in during counseling with the patient for every prescription. Ramya Smith RPh 11:23 AM September 17, 2024 Addendum September 18, 2024 10:15 AM : All REMS components have been verified by clinical pharmacist and patient is (or continues to be) an appropriate candidate for treatment. Confirm prescription contains authorization number and patient risk category Confirm order is for 28 day supply or less Confirm if refill, there are 7 days or less remaining of therapy on the existing prescription. Confirm order still appropriate to fill 30 days from authorization date For risk category females of reproductive potential: 7 days from last test Drug Interaction and Counseling Checklist Completed Verify all items checked as appropriate in the checklist Confirmation number obtained on same date order will be shipped and documented in the checklist accordingly REMS WAMB flag resolved after confirmation number obtained Medication will be shipped overnight and within 24 hours of receiving confirmation number Confirmation numbers was obtained the same date the order is shipping out Signature required to confirm delivery Darell Chu PharmD Clinical Pharmacist, Oncology [facility] P: ; F: Pool: P [facility] Pool #: [id number] * Ramya Smith RPh - 09/17/2024 11:22 AM EST [facility] Refill Assessment Medication(s): Revlimid Reviewed OV note on 09/06- Reports that she feels well. No new symptoms per her account. Reviewed FM OV note on 09/11- no changes noted 09/02 labs reviewed. Stable SCr, light chains normalized, no M-protein. H/H, ANC wnl. Plt low- cont to monitor. Next clinic visit scheduled 10/04. Revlimid cycles (28DS: 21 on / 7 off) are as follows: C1D1 03/13/23 C16D1 05/02/24 - delayed d/t covid, approved by Tx team to resume C17D1 05/30/24 C18D1 07/01/24- delayed d/t infection/antibiotics x10d C19D1 07/29/24 C20D1 08/26/24 C21D1 09/23/24 C22D1 10/21/24 REMS note: Pt's last survey was completed on 07/22/24. Next survey will be available on or after 12/30/24. Dispensing note: sending dosing calendar with shipment. ALLERGIES Allergen Reactions Sulfa (Sulfonamide * Swelling Adhesive Tape-Silic* Rash Patient's current medication list and adherence status to current therapy were reviewed by Specialty Pharmacy clinical pharmacist to identify any new drug interactions or non-compliance to therapy. Therapy continues to be appropriate for disease, patient response, and medical condition. Verification of therapeutic benefit and effectiveness with current therapy was completed. Adverse events, barriers in adherence, and side effects were assessed and addressed if applicable. Will proceed with refill with no changes in therapy - patient progressing towards achieving therapeutic goals based on medication- specific laboratory parameters, disease state markers and outcomes. Office/provider notes have been reviewed prior to dispensing the medication. Ramya Smith [facility] PharmD, BCPS Clinical Pharmacist, Oncology [facility] P: , F: Pool: P [facility] Pool #: [id number] Steam Finisher Assessment Patient confirmed: Yes Med/dose confirmed: Yes Supplies needed: No supplies needed Missed doses: No Estimated days supply on hand: 0 Next cycle/dose due: 09/23/24 (last dose was on Monday, 09/15) Copay amount: 0 Copay form of payment: (n/a) Payment confirmed: (n/a) Delivery method: FedEx Signature required: Required (, Medicaid, patient preference) Delivery address: [place] [address] Delivery date: 09/19/24 Questions or concerns for the pharmacist?: No Did you have any side effects believed to be related to this medication, that resulted in hospitalization?: No Current Outpatient Medications on File Prior to Visit Medication Sig REVLIMID 10 mg capsule Take 1 capsule (10 MG) by mouth daily at bedtime for 21 days on and 7 days off. levothyroxine (SYNTHROID) 50 mcg tablet Take 1 tablet by mouth once daily. Take on empty stomach. For Thyroid. omeprazole (PRILOSEC) 40 mg capsule Take 1 capsule by mouth daily before breakfast. 1/2 hr before meal. acyclovir (ZOVIRAX) 400 mg tablet Take 1 tablet by mouth once daily. pravastatin (PRAVACHOL) 80 mg tablet Take 1 tablet by mouth once daily. ondansetron (ZOFRAN) 8 mg tablet Take 1 tablet by mouth once daily as needed for nausea/vomiting. cyanocobalamin (VITAMIN B-12) 500 mcg tablet Take 1 tablet by mouth once daily. FERROUS SULFATE ORAL Take 1 tablet by mouth. aspirin, enteric coated (ASPIRIN, ENTERIC COATED) 81 mg EC tablet Take 81 mg by mouth. omega-3 acid ethyl esters (LOVAZA) 1 gram capsule Take 1 g by mouth. calcium carbonate-vitamin D3 (CALTRATE WITH VITAMIN D3) 600 mg(1,500mg) -800 unit tab Take 1 tabletby mouth twice daily. No current facility-administered medications on file prior to visit. [facility] CLINICAL ASSESSMENT - HEMATOLOGY ONCOLOGY V6: Ivent complete: No Assessment to use: Refill Date of influenza vaccination reminder: 04/01/2024 Date of most recent vaccination assessment: 04/01/2024 Treatment Plan Information: Diagnosis: Multiple myeloma - newly diagnosed Previous treatment(s): none, newly diagnosed Treatment plan: Revlimid (lenalidomide) + daratumumab + dexamethasone Starting Dose/Titration: Take 1 capsule (10mg) by mouth daily at bedtime for 21 days on, 7 days off. - Renal dose reduction required?: yes - CrCl 47mL/min, usual dose 25mg: PI recommends DR to 10mg daily, may increase to 15mg after 2 cycles if tolerating; dose reduced to 10 mg. Administration: - Take with or without food - Take at the same time each day with water; swallow whole Warnings: include but are not limited to - CONGRESSIONAL AIDE effects (dizziness, fatigue) - Tumor Flare, TLS - Venous and arterial thromboembolism (DVT, PE, TN, stroke) - BBW - Hematologic toxicity (neutropenia and thrombocytopenia) - BBW - Embryo- toxicity - BBW - No blood (or semen) donations during and 4 weeks post discontinuation Adverse reactions: include but are not limited to - Hepatotoxicity - Peripheral edema - Derm rxns (pruritis, skin rash, xeroderma) - Diarrhea > constipation; decrease appetite, abdominal pain - N/V (min to low) - BMS (neutropenia, thrombocytopenia, anemia) - Fatigue, asthenia, arthralgia, headache; back pain, muscle cramps/spasms Monitoring: - CBC with diff (MCL - weekly C1, Q2 weeks C2-4, then monthly; MDS - weekly x8 weeks, then at leastmonthly; MM - weekly x2 cycles; Q2 weeks C3, then monthly; Follicular and marginal zone lymphoma - weekly x3 weeks, Q2 weeks C2-4, then monthly) - sCr, LFTs (periodically) - TSH (baseline, then every 2-3 months) - ECG when clinically indicated - S/S infection, bruising, bleeding, hepatoxocity, 2ndry malignancy, thromboembolism, derm toxicity, TLS - test (for females of reproductive potential) - Hep B screening Drug-Drug Interactions: no interactions identified by Jennifer Baseline: - CBCD 02/22/23 - TSH 1.680 on 02/15/23 - CrCl 47mL/min on 02/22/23 - Hep B screening 02/23/23 Est. Tx Plan Start Date: No information available Estimated Start Date Info: Per Dr. Voss's discretion MDO to confirm DR for current CrCl - dose adjusted to 10 mg daily. Est. Estimated Treatment Duration: Continue until disease progression or unacceptable toxicity. Ramya Smith RPh documented in [facility]02-[facility]25 [facility] Telephone encounter Note* Telephone Encounter - Katey Croft RN - 09/16/2024 9:37 AM EST [facility] will send refill when patient is due to fill - of note, patient has scheduled phone call with pharmacist today for refill. Katey Croft RN, BSN Specialty Care Registered Nurse Coordinator Multiple Myeloma and Amyloidosis Program [facility] Work Phone: [phone] Miscellaneous Notes* Telephone Encounter - Katey Croft RN - 09/16/2024 9:37 AM EST [facility] will send refill when patient is due to fill - of note, patient has scheduled phone call with pharmacist today for refill. Katey Croft RN, BSN Specialty Care Registered Nurse Coordinator Multiple Myeloma and Amyloidosis Program [facility] * Telephone Encounter - Milady Sparks - 09/16/2024 8:46 AM EST Kayley Dickinson is calling Jaime Beatty MD today regarding 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 (Medication refill) Patient has been identified by name and birthdate. Patient states she needs a prescription for Revlimid. Duration of symptoms: N/A Requesting response back: call at home [phone] (home) Milady Sparks September 16, 2024 documented in [facility] encounterMag[facility]02-24-2025 Telephone encounter Note * Telephone Encounter - Milady Sparks - 09/16/2024 8:46 AM EST Kayley Dickinson is calling Jaime Beatty MD today regarding 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 (Medication refill) Patient has been identified by name and birthdate. Patient states she needs a prescription for Revlimid. Duration of symptoms: N/A Requesting response back: call at home [phone] (home) Milady Sparks September 16, 2024 [facility]02[facility] History of Present illness Narrative* Ruthy Valle PA-C - 09/11/2024 12:40 PM EST Chief Complaint Patient presents with: Follow Up: 6 months HPI Kayley Dickinson is a 88 year old female who presents here today for Chronic Medical Conditions.. Patient with hx of Patient with hx of Multiple Myeloma, Hypothyroid, Elevated glucose, CAD, GERD, and those as below. No concerns today. Patient is feeling well. Last 6 Encounter Wt Readings: Date: Wt: 09/11/2024 50.8 kg (112 lb) 09/06/2024 51.4 kg (113 lb 5.1 oz) 07/23/2024 50.8 kg (112 lb) 07/12/2024 49.7 kg (109 lb 9.1 oz) 04/19/2024 50.5 kg (111 lb 5.3 oz) 03/22/2024 51.9 kg (114 lb 6.7 oz) Past medical history, appointments, medications, allergies reviewed. Previous Medical History PAST MEDICAL HISTORY Diagnosis Date Advance directive discussed with patient 02/25/2022 Discussed 02/2022 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 rich plaque 03/31/2019 Current use of proton pump inhibitor 07/30/2019 Elevated fasting blood sugar 03/29/2019 GERD without esophagitis 03/29/2019 High cholesterol History of 2019 novel coronavirus disease (COVID-19) 09/07/202202/2022 History of squamous cell carcinoma of skin 03/31/2019 Right side of nose Hypothyroidism, acquired 03/29/[address] 02/25/2022 DPA: Micaela () Medicare annual wellness visit, subsequent 08/17/2020 Medical B eligibilty date 11/21/2002 Last done: 02/11/2020 Mixed hyperglyceridemia 03/29/2019 Multiple myeloma (HCC) 02/13/2023 Osteopenia of spine 03/29/2019 Previous Surgical History PAST SURGICAL HISTORY Procedure Laterality Date CATARACT EXTRACTION HX Bilateral 2017 COLONOSCOPY 10/25/2021 repeat only if needed HYSTERECTOMY partial - age 40 MASTECTOMY, SIMPLE, COMPLETE Bilateral 1977 with implants for fibrocystic disease (?) NUCLEAR STRESS TEST (WT<440#) (UNION) 08/09/2013 old records: negative PAST SURGICAL HISTORY OF 1996 breast implants Family History FAMILY HISTORY Problem Relation Age of Onset Heart Failure Mother Diabetes Sister Hyperlipidemia Sister Thyroid Sister Breast Cancer Maternal Grandmother Diabetes Daughter Hyperlipidemia Sister Alzheimer's Disease No Family History Colon Cancer No Family History Prostate Cancer No Family History Ovarian cancer No Family History Uterine Cancer No Family History Coronary Artery Disease No Family History Hypertension No Family History Kidney Disease No Family History Seizures No Family History Stroke No Family History Patient Allergies ALLERGIES Allergen Reactions Sulfa (Sulfonamide * Swelling Adhesive Tape-Silic* Rash Current Medications Current Outpatient Medications on File Prior to Visit Medication Sig REVLIMID 10 mg capsule Take 1 capsule (10 MG) by mouth daily at bedtime for 21 days on and 7 days off. levothyroxine (SYNTHROID) 50 mcg tablet Take 1 tablet by mouth once daily. Take on empty stomach. For Thyroid. omeprazole (PRILOSEC) 40 mg capsule Take 1 capsule by mouth daily before breakfast. 1/2 hr before meal. pravastatin (PRAVACHOL) 80 mg tablet Take 1 tablet by mouth once daily. ondansetron (ZOFRAN) 8 mg tablet Take 1 tablet by mouth once daily as needed for nausea/vomiting. cyanocobalamin (VITAMIN B-12) 500 mcg tablet Take 1 tablet by mouth once daily. FERROUS SULFATE ORAL Take 1 tablet by mouth. aspirin, enteric coated (ASPIRIN, ENTERIC COATED) 81 mg EC tablet Take 81 mg by mouth. omega-3 acid ethyl esters (LOVAZA) 1 gram capsule Take 1 g by mouth. calcium carbonate-vitamin D3 (CALTRATE WITH VITAMIN D3) 600 mg(1,500mg) -800 unit tab Take 1 tabletby mouth twice daily. acyclovir (ZOVIRAX) 400 mg tablet Take 1 tablet by mouth once daily. No current facility-administered medications on file prior to visit. Social History Social History Tobacco Use Smoking status: Never Smokeless tobacco: Never Vaping Use Vaping status: Never Used Substance Use Topics Alcohol use: Not Currently Drug use: Not Currently Review of Symptoms REVIEW OF SYSTEMS GENERAL: No weight loss, malaise or fevers NECK: Negative for lumps, goiter, pain and significant neck swelling RESPIRATORY: Negative for cough, hemoptysis, wheezing, COPD, dyspnea or shortness of breath CARDIOVASCULAR: Negative for chest pain, leg swelling, hypertension, CHF or palpitations NEURO: No history of headaches, syncope, paralysis, seizures or tremors EXAM: BP 116/70 Pulse 62 Temp 37 C (98.6 F) Resp 14 Wt 50.8 kg (112 lb) SpO2 98% BMI 20.88 kg/m General Appearance: Well appearing, alert, in no acute distress, well-hydrated, well nourished.. Neck: Supple, no adenopathy; thyroid symmetric, normal size, no bruits. Lungs: Lungs clear to auscultation. No wheezing, rhonchi, rales.. Heart: RRR without murmur, gallop, or rubs. No ectopy. Extremities: No deformities, edema, skin discoloration, clubbing or cyanosis. Good capillary refill. . Peripheral Pulses: Normal. Health Maintenance List Covid-19 Vaccine( season) due on 03/24/2024 Advance Directive Discussion due on 07/24/2024 Depression Screening due on 03/06/2025 Anxiety Screening due on 03/06/2025 LDL Cholesterol due on 09/02/2025 Diabetes Screening due on 09/02/2027 DTaP,Tdap,Td Vaccine(3 - Td or Tdap) due on 08/20/2031 Bone Density Screening Completed Influenza Vaccine Completed RSV Vaccine Completed Shingrix Vaccine Completed Pneumococcal Vaccine: 50+ Completed Cervical Cancer Screening Discontinued Data reviewed Latest Ref Rng 09/02/2024 Total Cholesterol, Nonfasting <200 mg/dL 113 Triglycerides, Nonfasting <150 mg/dL 80 HDL Cholesterol, Nonfasting >39 mg/dL 45 LDL Cholesterol, Nonfasting <100 mg/dL 52 Non HDL Cholesterol, Nonfasting <130 mg/dL 68 VLDL Cholesterol, Nonfasting <30 mg/dL 16 Total Chol/HDL Ratio, Nonfasting <5.10 mg/dL 2.51 LDL/HDL Ratio, Nonfasting <2.54 mg/dL 1.16 Hemoglobin A1C 4.3 - 5.6 % 5.5 Estimated Average Glucose mg/dL 111 TSH 0.270 - 4.200 mIU/L 1.710 ASSESSMENT/PLAN: 1. 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 rich plaque - ICD9: 414.00, 414.3, ICD10: I25.10, I25.83 (primary diagnosis) Stable Continue current management - LIPID PANEL, NONFASTING - URINALYSIS, WITH MICROSCOPIC 2. Mixed hyperglyceridemia - ICD9: 272.3, ICD10: E78.3 - Controlled - Continue current medications - Counseled on healthy diet and regular exercise - LIPID PANEL, NONFASTING - URINALYSIS, WITH MICROSCOPIC 3. GERD without esophagitis - ICD9: 530.81, ICD10: K21.9 - stable with current management - URINALYSIS, WITH MICROSCOPIC 4. Hypothyroidism, acquired - ICD9: 244.9, ICD10: E03.9 - Instructed patient on importance of taking on an empty stomach either first thing in the morning or at bedtime. - THYROID STIMULATING HORMONE 5. Elevated fasting blood sugar - ICD9: 790.21, ICD10: R73.01 - HEMOGLOBIN A1C 6. Multiple myeloma not having achieved remission (HCC) - ICD9: 203.00, ICD10: C90.00 Cont with oncology 7. Multiple myeloma, remission status unspecified (HCC) - ICD9: 203.00, ICD10: C90.00 Cont with oncology 8. Living will in place - ICD9: V49.89, ICD10: Z78.9 No changes 9. Medication management - ICD9: V58.69, ICD10: Z79.899 - VITAMIN B12 - MAGNESIUM Ruthy Valle PA-C documented in this encounterMag[facility]02-14-2025 History of Present illness Narrative* Vince Freitas APRN.[employer] - 09/06/2024 1:30 PM EST Images from the original note were not included. [facility] (Elements copied from Dr Beatty' note dated August 09, 2024 have been reviewed and updated whereappropriate, and all reflect current assessment and medical decision making during today's encounter, September 06, 2024) Reason for visit: follow up myeloma. Baseline assessment on initial diagnosis date 2022 Cancer Staging No matching staging information was found for the patient. Symptomatic multiple myeloma, I Related Organ or Tissue Involvement (CRAB) or other Myeloma Defining Event (MDE): Bone disease: At least one lytic bone lesion on XR or CT if BMPC >=10%, at least 2 bone lesions on XR or CT if BMPC<10%, location of lytic lesion(s): Left clavicular head Antecedent plasma cell dyscrasia: No Myeloma FISH panel: Trisomy 15, trisomy 11 Cytogenetics: 46, XX LDH: 175 ISS stage: ISS Stage II Monoclonal proteins at diagnosis: Serum M-spike: 1.19 gm/dL, Involved serum free light chains: 35.2mg/L, and Uninvolved serum free light chains: 10.4 mg/L Total immunoglobulins at diagnosis: IgG = 1980 mg/dl, IgA = 58 mg/dl, IgM = 38 mg/dl Bone marrow plasma cell infiltration: 10-15% plasma cells in the marrow Systemic treatment and disease course Start 02/23/2023-current Daratumumab, lenalidomide (per AGNES) - Myeloma response according to: International uniform response criteria, Durie et al. Leukemia 20:1467-73, 2006 and Moraie et al. ERRATUM in Leukemia 21:1134, 2007. Update in Debra SV et al. Blood 117: 6394-3344, 2011 Local treatments (radiation, surgery, kyphoplasty) 03/02/2023 to 03/08/2023 The Left clavicle received a total dose of 2000 cGy in 5 fractions at 400 cGy/fraction using 6 MV photons with Wedged Pair technique. History of present illness Mrs. Dickinson is an 87-year-old female with past medical history that includes hypothyroidism, GERD, hyperlipidemia, prediabetes, and possible coronary artery disease who was initially evaluated for left mid clavicular pain and swelling at an urgent care facility on 12/26/2022. A 2 view x-ray of the clavicle obtained on that occasion did not reveal evidence of an osseous abnormality. Of note, the tk bell did not experience antecedent trauma to the clavicle prior to that visit. He was initiated onMedrol Dosepak at the time of discharge. Follow-up MRI of the clavicle on 12/29/2022 demonstrated mild expansion and irregular cortical bone in the medial left clavicle. A bone scintigraphy study on 01/05/2023 demonstrated increased uptake in the left sternoclavicular joint medial clavicle, and a CT of the left clavicle and shoulder on 01/11/2023 demonstrated a permeative lytic lesion with a pathologic fracture of the left medial clavicle. The patient was evaluated in our orthopedic oncology clinic on 01/17/2023. CT scans of the chest abdomen and pelvis did not demonstrate any other evidence of overt osseous disease but did demonstrate hepatic hypodensities for which an MRI of the liver was suggested. An image guided biopsy left clavicle was performed demonstrated sheets of plasma cells. Currently paraprotein work-up prior to the current visit is a serum protein electrophoresis demonstrating a monoclonal spike of 1.19 mg/dL and a spot urine protein electrophoresis that does demonstrate a monoclonal paraprotein. The patient has no evidence of underlying bone marrow involvement in terms of her CBC which is entirely normal. Thereis no evidence of renal dysfunction or hypercalcemia. She denies a personal history of other pathologic fractures. She denies recent fevers, chills, night sweats, nausea, vomiting, diarrhea, voice changes, new rash, or weight loss. She has no personal history of malignancy and no strong family history of thrombophilia, bleeding diathesis, or hematologic cancer. Interim Updates: 03/31/2023: The returns evaluation management of symptomatic myeloma. She denies fevers, chills, night sweat nausea, vomiting, diarrhea, and peripheral neuropathy. She continues on aspirin and acyclovir. Pleated radiation therapy to the left clavicle with no residual pain at the site of the previous fracture. Her paraprotein labs demonstrate normalization of her involved serum free light chain and a decrease in her intact monoclonal paraprotein by approximately 50%. There is no evidence of renal dysfunction or hypercalcemia. Whole body low dose CT scan (see below) demonstrates 1/9 rib lytic lesion in addition to the known clavicular lesion. 05/05/2023: Mrs Dickinson is seen for a scheduled follow up visit. She is accompanied by her . Overall, she reports feeling well. Per her account, she has no pain in the area of her L clavicle.Reports two episodes of mild epistaxis over past month. States she has seen ENT in [place] and was told the recurrent nose bleeds were due to the anatomy of the Right side of her nose. Per patient, she is occasionally constipated and eating prunes usually relieves the constipation. Confirms compliance with Revlimid dosing and schedule. 11/8/23: Mrs. Dickinson is seen for a scheduled follow up visit, accompanied by her . She reports overall feeling well. She woke up this morning with a bruise just to the right of the sternoclavicular junction. She denies fevers, chills, night sweats, nausea, vomiting and diarrhea. She deniesnew rashes. Her paraprotein labs from last visit demonstrate a preserved free light chain ratio fabiola fluctuating intact monoclonal paraprotein by protein electrophoresis. 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 Her IgG level has normalized. She has very mild leukopenia and thrombocytopenia. There is no evidence of worsening anemia. There is no evidence of hypercalcemia. Continues on aspirin for thromboprophylaxis and acyclovir for VZV prophylaxis. Performance status is unchanged with the initiation of therapy she notes she is able to complete all of her ADLs and IADLs independently. 07/14/23: Constipation, the patient denies fevers, chills, night sweats, nausea, vomiting, diarrhea, and significant weight changes. 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 Serologically, her immunofixation demonstrates what is likely the presence of daratumumab. Her light chains remain within normal range with a normalized ratio. Her low level intact monoclonal paraprotein may represent daratumumab. She continues to take aspirin and acyclovir as directed. She complains of no new areas of bony pain. 12/01/23: At the present visit, patient denies fevers, chills, night, nausea, vomiting, diarrhea, significantly. She estimates that she wakes at 5 AM every day and is able to work for several hours before becoming tired in the early afternoon. She has not noticed any lymphadenopathy. She has not noticed any early satiety. Paraprotein labs indicate a complete remission. She remains on lenalidomide 10 mg daily day 1 through 21 of a 28-day cycle and monthly daratumumab. We have taken dexamethasone out of her treatment plan. She also receives monthly zoledronic acid. There is no evidence of renal dysfunction, hypercalcemia, or new onset cytopenias. 12/29/23: pt called in last week for brb from rectum. Has known hemorrhoids. Issue subsided without additional interventions. H/h stable. Denies other symptoms. 01/26/24: Mrs. Dickinson returns for follow up. Continues to tolerate treatment well. She tells me sheis recommended to have a dental procedure where they will take some tissue from her upper gum and put it into an implant on her lower jaw. She said her dentist wanted clearance from Dr. Beatty and will be sending the information to him to review. She wont be scheduled until she has an ok from our team. I advised her this will need to be reviewed once we have the details of what they are planning. In prep for this we will hold zometa until we know definitely if she will have this done or not. Started revlimid 01/15. 02/21/24: The patient here for follows up and tolerating the treatment well. Her lab workup from 02/19/24 shows an atypical region of restricted mobility on SPEP and no M protein on immunofixation. K/Lratio is also normal. IgG is 630 as well. CBC still shows mild pancytopenia. She denies recent fevers, chills, night sweats, nausea, vomiting, diarrhea, voice changes, new rash, or weight loss. She has an implant of the tooth planned for April 03 2024. Was counseled on keeping an eye out on the fatigue 06/14/24: In the interim since her last visit, the patient continued to receive daratumumab based maintenance. Today is C18D1. Most recent paraprotein labs reveal what is likely a negative immunofixation, completely normal serum free light chains, immune paresis, and essentially normal hemoglobin, and persistent but stable thrombocytopenia and lymphopenia. 08/09/24: The patient denies fevers, chills, night sweats nausea vomiting and new rash. Her diarrheahas improved dramatically since her recent visit. Continues lenalidomide 10 mg days 1-21 of a 28 day cycle aspirin currently. She is receiving once monthly daratumumab. Paraprotein labs indicate a sustained serologic VGPR at minimum and likely a complete remission. 09/05/2024: Mrs Rivero presents for a scheduled follow up for continued management and evaluation of multiple myeloma. She is accompanied by her . Reports that she feels well. No new symptoms per her account. Available labs reviewed with patient and her . Review of systems General: No fever , No chills, and No night sweats HEENT: No lumps, no difficulty chewing or swallowing, no enlarging tongue, no tooth aches. Musculoskeletal: no current pain Hematological: No bleeding or easy bruising. Lymphatic / Immune system: No lymph node enlargement or infection. Cardiovascular: No orthopnea, no dyspnea, no chest pain, no leg edema, no palpitations. Pulmonary: No dyspnea, no wheezing, no cough. Gastrointestinal: see HPI. No nausea, vomitting, diarrhea, constipation, abdominal pain, or blood in stool. PAST MEDICAL HISTORY Diagnosis Date Advance directive discussed with patient 02/25/2022 Discussed 02/2022 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 rich plaque 03/31/2019 Current use of proton pump inhibitor 07/30/2019 Elevated fasting blood sugar 03/29/2019 GERD without esophagitis 03/29/2019 High cholesterol History of 2019 novel coronavirus disease (COVID-19) 09/07/202202/2022 History of squamous cell carcinoma of skin 03/31/2019 Right side of nose Hypothyroidism, acquired 03/29/[address] 02/25/2022 DPA: Micaela () Medicare annual wellness visit, subsequent 08/17/2020 Medical B eligibilty date 11/21/2002 Last done: 02/11/2020 Mixed hyperglyceridemia 03/29/2019 Multiple myeloma (HCC) 02/13/2023 Osteopenia of spine 03/29/2019 PAST SURGICAL HISTORY Procedure Laterality Date CATARACT EXTRACTION HX Bilateral 2017 COLONOSCOPY 10/25/2021 repeat only if needed HYSTERECTOMY partial - age 40 MASTECTOMY, SIMPLE, COMPLETE Bilateral 1977 with implants for fibrocystic disease (?) NUCLEAR STRESS TEST (WT<440#) (UNION) 08/09/2013 old records: negative PAST SURGICAL HISTORY OF 1995 breast implants Allergies / intolerances ALLERGIES Allergen Reactions Sulfa (Sulfonamide * Swelling Adhesive Tape-Silic* Rash Medications REVLIMID 10 mg capsule Take 1 capsule (10 MG) by mouth daily at bedtime for 21 days on and 7 days off. levothyroxine (SYNTHROID) 50 mcg tablet Take 1 tablet by mouth once daily. Take on empty stomach. For Thyroid. omeprazole (PRILOSEC) 40 mg capsule Take 1 capsule by mouth daily before breakfast. 1/2 hr before meal. acyclovir (ZOVIRAX) 400 mg tablet Take 1 tablet by mouth once daily. pravastatin (PRAVACHOL) 80 mg tablet Take 1 tablet by mouth once daily. ondansetron (ZOFRAN) 8 mg tablet Take 1 tablet by mouth once daily as needed for nausea/vomiting. cyanocobalamin (VITAMIN B-12) 500 mcg tablet Take 1 tablet by mouth once daily. FERROUS SULFATE ORAL Take 1 tablet by mouth. aspirin, enteric coated (ASPIRIN, ENTERIC COATED) 81 mg EC tablet Take 81 mg by mouth. omega-3 acid ethyl esters (LOVAZA) 1 gram capsule Take 1 g by mouth. calcium carbonate-vitamin D3 (CALTRATE WITH VITAMIN D3) 600 mg(1,500mg) -800 unit tab Take 1 tabletby mouth twice daily. Social History Tobacco Use Smoking status: Never Smokeless tobacco: Never Vaping Use Vaping status: Never Used Substance Use Topics Alcohol use: Not Currently Drug use: Not Currently FAMILY HISTORY Problem Relation Age of Onset Heart Failure Mother Diabetes Sister Hyperlipidemia Sister Thyroid Sister Breast Cancer Maternal Grandmother Diabetes Daughter Hyperlipidemia Sister Alzheimer's Disease No Family History Colon Cancer No Family History Prostate Cancer No Family History Ovarian cancer No Family History Uterine Cancer No Family History Coronary Artery Disease No Family History Hypertension No Family History Kidney Disease No Family History Seizures No Family History Stroke No Family History Physical examination BP 152/64 Pulse 75 Temp 36.2 C (97.2 F) (Temporal) Resp 12 Ht 156 cm (5' 1.42) Wt 51.4 kg (113 lb 5.1 oz) SpO2 98% BMI 21.12 kg/m ECOG PS: 1- Restricted in physically strenuous activity. Carries out light duty. General appearance: Well appearing, alert, in no acute distress, well-hydrated, well nourished. HEENT: No lumps, no macroglossia, no icterus. Mucous membranes pink. Neck: Supple, no adenopathy Lungs: even chest rise and fall. Extremities: No deformities, edema. Laboratory tests WBC (k/uL) Date Value 09/02/2024 3.61 08/05/2024 3.39 07/08/2024 3.61 06/11/2024 3.46 05/14/2024 3.45 04/15/2024 3.74 03/22/2024 4.09 02/19/2024 3.49 01/23/2024 3.13 12/26/2023 2.98 09/06/2021 6.85 03/15/2021 7.83 02/04/2021 6.15 01/31/2020 5.74 Abs Neut (ANC) (k/uL) Date Value 09/06/2021 4.61 03/15/2021 5.08 02/04/2021 3.89 01/31/2020 3.68 Abs Neut (k/uL) Date Value 09/02/2024 2.35 08/05/2024 2.17 07/08/2024 2.46 06/11/2024 2.20 05/14/2024 2.18 04/15/2024 2.79 03/22/2024 2.84 02/19/2024 2.42 01/23/2024 2.19 12/26/2023 2.00 Hemoglobin (g/dL) Date Value 09/02/2024 11.9 08/05/2024 11.1 07/08/2024 10.7 06/11/2024 11.7 05/14/2024 11.3 04/15/2024 11.8 03/22/2024 11.4 02/19/2024 11.0 01/23/2024 11.3 12/26/2023 11.3 09/06/2021 14.0 03/15/2021 14.0 02/04/2021 13.3 01/31/2020 13.3 Platelet Count (k/uL) Date Value 09/02/2024 106 08/05/2024 112 07/08/2024 142 06/11/2024 86 05/14/2024 92 04/15/2024 107 03/22/2024 98 02/19/2024 115 01/23/2024 100 12/26/2023 91 09/06/2021 157 03/15/2021 173 02/04/2021 148 01/31/2020 168 Glucose (mg/dL) Date Value 09/02/2024 94 08/05/2024 126 07/08/2024 91 06/11/2024 107 05/14/2024 104 04/15/2024 112 03/19/2024 96 02/19/2024 121 01/23/2024 89 12/26/2023 104 02/04/2021 98 01/31/2020 90 Creatinine (mg/dL) Date Value 09/02/2024 0.96 08/05/2024 0.91 07/08/2024 0.91 06/11/2024 1.00 05/14/2024 0.85 04/15/2024 0.91 03/19/2024 0.93 02/19/2024 0.94 01/23/2024 0.93 12/26/2023 0.99 02/04/2021 0.72 01/31/2020 0.70 Calcium (mg/dL) Date Value 02/04/2021 9.1 01/31/2020 9.5 Calcium, Total (mg/dL) Date Value 09/02/2024 9.8 08/05/2024 9.4 07/08/2024 9.2 06/11/2024 9.1 05/14/2024 8.8 04/15/2024 9.1 03/19/2024 9.3 02/19/2024 8.2 01/23/2024 8.5 12/26/2023 9.0 M-Protein Concentration (g/dL) Date Value 09/02/2024 0.00 08/05/2024 0.00 07/08/2024 0.00 06/11/2024 0.00 05/14/2024 0.00 04/15/2024 0.00 03/19/2024 0.00 02/19/2024 0.00 01/23/2024 0.16 11/28/2023 0.15 10/31/2023 0.17 10/05/2023 0.19 09/06/2023 0.24 08/09/2023 0.29 07/13/2023 0.31 06/29/2023 0.33 06/14/2023 0.40 05/30/2023 0.39 05/18/2023 0.46 05/04/2023 0.06 04/20/2023 0.13 04/06/2023 0.58 03/29/2023 0.11 03/02/2023 1.20 02/22/2023 1.35 02/15/2023 1.39 01/17/2023 1.19 [place] Free, Serum Date Value 09/02/2024 16.4 mg/L 08/05/2024 15.8 mg/L 07/08/2024 13.5 mg/L 06/11/2024 15.0 mg/L 05/14/2024 17.0 mg/L 04/15/2024 13.3 mg/L 03/19/2024 17.1 mg/L 02/19/2024 16.0 mg/L 01/23/2024 16.7 mg/L 11/28/2023 17.3 mg/L 10/31/2023 15.6 mg/L 10/05/2023 16.2 mg/L 09/06/2023 15.5 mg/L 08/09/2023 16.0 mg/L 07/13/2023 Comment: Unable to assay. Specimen hemolyzed. Rarely, increased serum free light chains levels may not be detected or accurately quantified due to prozone phenomenon or in high viscosity samples using this immunoturbidimetric assay. Correlation with other laboratory results and clinical findings is recommended. The [place] Free Light Chain was performed using the Binding Site Optilite immunoturbidimetric method. Result obtained with different assay methods or kits cannot be used interchangeably. 06/29/2023 21.2 mg/L 06/14/2023 18.6 mg/L 05/30/2023 21.7 mg/L 05/18/2023 20.8 mg/L 05/04/2023 20.8 mg/L 04/20/2023 17.7 mg/L 04/06/2023 21.9 mg/L 03/29/2023 21.4 mg/L 03/02/2023 21.3 mg/L 02/22/2023 30.5 mg/L 02/15/2023 35.2 mg/L [place] Free, Serum (mg/L) Date Value 09/02/2024 15.7 08/05/2024 18.6 07/08/2024 14.5 06/11/2024 16.3 05/14/2024 17.1 04/15/2024 14.2 03/19/2024 18.2 02/19/2024 19.4 01/23/2024 18.4 11/28/2023 16.8 10/31/2023 15.8 10/05/2023 14.7 09/06/2023 13.9 08/09/2023 13.0 07/13/2023 10.4 06/29/2023 11.5 06/14/2023 9.5 05/30/2023 10.4 05/18/2023 10.1 05/04/2023 10.4 04/20/2023 6.6 04/06/2023 13.0 03/29/2023 13.0 03/02/2023 4.6 02/22/2023 11.1 02/15/2023 10.4 Interpretation (MPA) (no units) Date Value 06/11/2024 Poorly defined region of restricted mobility in the lambda alejandro. Pattern is less well defined or fainter than typically seen in monoclonal gammopathy. This could represent either an atypical presentation of polyclonal immunoglobulins or the presence of a low level lambda containing monoclonal gammopathy. If clinically indicated, urine monoclonal protein analysis and serum free light chain measurem ents are recommended to evaluate further for monoclonal gammopathy. Clinical correlation is necessary. 04/15/2024 There is a faint band in the IgG and kappa lanes. The patient is receiving a therapeutic monoclonalantibody, for which the electrophoretic properties have not been well-defined. Cannot exclude the possibility that this band represents a therapeutic monoclonal antibody rather than an IgG kappa paraprotein. Recommend correlation with serum free light chain and urine monoclonal protein analysis. 01/23/2024 There is an atypical restricted band present in the IgG and kappa regions. The location of the IgG kappa band suggests the presence of daratumumab, although one cannot rule out the possibility that this band represents a disease-related monoclonal protein. If clinically required, specific testing for daratumumab may be ordered to confirm the presence of the drug in this patient. 11/28/2023 There are two atypical restricted bands present in the IgG and kappa regions. The location of the IgG kappa band suggests the presence of daratamumab. However the second band has a different migration pattern and is unlikely to represent daratumumab. Poorly defined region of restricted mobility in the lambda alejandro. Pattern is less well defined or fainter than typically seen in monoclonal gammopathy. This could represent either an atypical presentation of polyclonal immunoglobulins or the presence of a low level lambda containing monoclonal gammopathy. 10/31/2023 There are two atypical restricted bands present in the IgG and kappa regions. The location of the IgG kappa band suggests the presence of daratamumab. However the second band has a different migration pattern and is unlikely to represent daratumumab. Imaging - MRI 12/29/2022: demonstrating mild expansion and irregular cortical bone in medial left clavicle. - Bone scintography 01/05/2023: increased uptake in left sternoclavicular joint, and medial clavicle. - CT left clavicle/shoulder 01/11/2023: permeative lytic lesion with pathological fracture of left medial clavicle. Low-dose CT scan of the whole body (02/22/2023) 1. Stable expansile, lytic bone lesion with associated cortical destruction involving the medial left clavicle, corresponding with the site of recent biopsy. 2. There is a lytic lesion involving the posterior right ninth rib at the costovertebral joint with disruption of the posterior cortex. 3. No other lytic bone lesions identified. 4. 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 Correlation with prior outside studies, if available, would be helpful. This could be further evaluated with dedicated head CT. 5. Additional findings as above which are stable from the recent chest and abdominopelvic CT exams. Pathology: Image guided biopsy of the mid left clavicle (01/30/2023) FINAL DIAGNOSIS A. Lesion, left clavicular head, biopsy: - Plasma cell neoplasm (kappa). - See comment. CV/mm/02/01/2023 Diagnosis Comment Histologic sections show fragments of blood clot associated with clusters of plasma cells. The plasma cells are intermediate sized, with abundant cytoplasm and round, eccentric nuclei with mature chromatin. Immunohistochemical stains have been performed with appropriately staining controls. The plasma cells are positive for CD138. On the stains for kappa or lambda they appear monotypic kappa. 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 Further classification of this process requires correlation with clinical, radiologic, and laboratory findings. Impression and Plan Cancer Staging No matching staging information was found for the patient. #multiple myeloma Cytogenetic risk category: Standard risk Frailty Score: 0 IMWG Response Criteria: Renal: Normal creatinine, clinically no evidence for renal dysfunction. Infectious diseases: No current infection, no need for prophylaxis Musculoskeletal: Chronic pain, satisfactorily controlled. Bone modifying therapy: zometa Venous thromboembolism risk: No need for DVT prophylaxis control counseling: Does not apply since patient is naturally postmenopausal for greater than24 months or post hysterectomy or post bilateral oophorectomy Neurology: No neurologic symptoms Health maintenance discussed: Regular exercise and Appropriate diet Side effects from current medications: None Mrs. Dickinson is an 88-year-old female with excellent performance status who was recently diagnosedwith a fracture of the left mid clavicle without evidence of trauma to the site. An image guided biopsy revealed plasma cell involvement and a initial protein electrophoresis demonstrated a monoclonal paraprotein 1.19 mg/dL. Cross-sectional imaging revealed no evidence of additional osseous disease. She continues on the AGNES regimen with excellent tolerance of treatment and performance status. Her intact monoclonal paraprotein has fluctuated; however, this is in the context of daratumumab treatment and an underlying CD5+ B-cell clone. Her total IgG level has normalized and there are no other i ndications of symptomatic or biochemical progression. Overall, she is likely at least achieved a VGPR and probably a CR. Her immunofixation remains negative. We will continue aspirin, acyclovir, and bone stabilizing therapy. Plan Summary: -Continue daratumumab monthly and lenalidomide (dexamethasone dropped based on Agnes protocol) with lenalidomide 10 mg day 1 through 21 of a 28-day cycle for now -No further dexamethasone with treatment -started bone stabilizing therapy with zometa 06/14/2024 -Continue acyclovir and aspirin -RTC in 8 weeks Medical Decision Making: Medical Decision Making Level: 1 - N/A ASSESSMENT/PLAN: 1. Multiple myeloma in remission (HCC) - ICD9: 203.01, ICD10: C90.01 - CHEMO SCHEDULING - COMPREHENSIVE METABOLIC PANEL - PROTEIN ELECTROPHORESIS SERUM W/INTERP - MONOCLONAL PROTEIN, SERUM (BLOOD) Vince Freitas APRN.CNP Hematologic Oncology and Blood Disorders [facility] [address] [address] Email: [email or web address] * Anika Mcnamara LPN - 09/06/2024 12:59 PM EST Additional intake questions: Has the patient had fever, nausea, vomiting, diarrhea, constipation, fatigue for > 1 week? No Does the patient have a decreased appetite? No Does patient want to see a Housekeeping Department Worker? No (yes to any of above refer patient to schedulers for dietitian appointment) ) Does patient have any new or increased numbness or tingling of extremities? No Is patient interested in fertility information? No Does patient need any prescription refills? No Does patient have an advanced directive in place? No Electronically Signed By: Anika Mcnamara LPN [facility] History of Present illness Narrative* Ramya Smith RPh - 08/19/2024 2:32 PM EST [facility] CLINICAL ASSESSMENT - CELGENE REMS HEADER V2 Patient is not a female of reproductive potential Lenalidomide - Patient Not of Reproductive Potential V2 All boxes and spaces must be marked or filled in during counseling with the patient for every prescription. Ramya Smith RPh 2:36 PM August 19, 2024 Addendum August 21, 2024 8:20 AM : All REMS components have been verified by clinical pharmacist and patient is (or continues to be) an appropriate candidate for treatment. Confirm prescription contains authorization number and patient risk category Confirm order is for 28 day supply or less Confirm if refill, there are 7 days or less remaining of therapy on the existing prescription. Confirm order still appropriate to fill 30 days from authorization date For risk category females of reproductive potential: 7 days from last test Drug Interaction and Counseling Checklist Completed Verify all items checked as appropriate in the checklist Confirmation number obtained on same date order will be shipped and documented in the checklist accordingly REMS WAMB flag resolved after confirmation number obtained Medication will be shipped overnight and within 24 hours of receiving confirmation number Confirmation numbers was obtained the same date the order is shipping out Signature required to confirm delivery Amruth Annita, PharmD Clinical Pharmacist, Oncology [facility] P: , F: Pool: P [facility] Pool #: [id number] * Ramya Smith RPh - 08/19/2024 2:32 PM EST Images from the original note were not included. Patient has been enrolled in a new $[id number] robert for Dx: MM through HW active 07/20/24 to 07/19/25. Ramya Smith RPh * Ramya Smith RPh - 08/19/2024 2:32 PM EST [facility] Specialty Refill Assessment Medication(s): lenalidomide Reviewed FM OV note on 07/23- PNA resolving, pt asymptomatic. Reviewed FM TE note on 08/05- CXR shows minimal residual left likely from atelectasis. Patient does not need any further imaging. Reviewed OV note on 08/09- Diarrhea improved. Paraprotein labs indicate a sustained serologic VGPR at minimum and likely a complete remission. Labs reviewed. Monitor plt trend. H/H stable, ANC wnl. Next clinic visit scheduled 09/06. Revlimid cycles (28DS: 21 on / 7 off) are as follows: C1D1 03/13/23 C16D1 05/02/24 - delayed d/t covid, approved by Tx team to resume C17D1 05/30/24 C18D1 07/01/24- delayed d/t infection/antibiotics x10d C19D1 07/29/24 C20D1 08/26/24 C21D1 09/23/24 REMS note: Pt's last survey was completed on 07/22/24. Next survey will be available on or after 12/30/24. Dispensing note: sending dosing calendar with shipment. ALLERGIES Allergen Reactions Sulfa (Sulfonamide * Swelling Adhesive Tape-Silic* Rash Patient's current medication list and adherence status to current therapy were reviewed by Specialty Pharmacy clinical pharmacist to identify any new drug interactions or non-compliance to therapy. Therapy continues to be appropriate for disease, patient response, and medical condition. Verification of therapeutic benefit and effectiveness with current therapy was completed. Adverse events, barriers in adherence, and side effects were assessed and addressed if applicable. Will proceed with refill with no changes in therapy - patient progressing towards achieving therapeutic goals based on medication- specific laboratory parameters, disease state markers and outcomes. Office/provider notes have been reviewed prior to dispensing the medication. Ramya Smith, [facility] PharmD, BCPS Clinical Pharmacist, Oncology [facility] P: , F: Pool: P [facility] Pool #: [id number] Steam Finisher Assessment Patient confirmed: Yes Med/dose confirmed: Yes Supplies needed: No supplies needed Missed doses: No Estimated days supply on hand: 0 Next cycle/dose due: 08/26/24 (08/19 starts off week) Copay amount: 0 Copay form of payment: (n/a) Payment confirmed: (n/a) Delivery method: FedEx Signature required: Required (, Medicaid, patient preference) Delivery address: [address] [place] [address] *signature required* [place] [id number] Delivery date: 08/22/24 Questions or concerns for the pharmacist?: No Did you have any side effects believed to be related to this medication, that resulted in hospitalization?: No Current Outpatient Medications on File Prior to Visit Medication Sig REVLIMID 10 mg capsule Take 1 capsule (10 MG) by mouth daily at bedtime for 21 days on and 7 days off. levothyroxine (SYNTHROID) 50 mcg tablet Take 1 tablet by mouth once daily. Take on empty stomach. For Thyroid. omeprazole (PRILOSEC) 40 mg capsule Take 1 capsule by mouth daily before breakfast. 1/2 hr before meal. acyclovir (ZOVIRAX) 400 mg tablet Take 1 tablet by mouth once daily. pravastatin (PRAVACHOL) 80 mg tablet Take 1 tablet by mouth once daily. ondansetron (ZOFRAN) 8 mg tablet Take 1 tablet by mouth once daily as needed for nausea/vomiting. cyanocobalamin (VITAMIN B-12) 500 mcg tablet Take 1 tablet by mouth once daily. FERROUS SULFATE ORAL Take 1 tablet by mouth. aspirin, enteric coated (ASPIRIN, ENTERIC COATED) 81 mg EC tablet Take 81 mg by mouth. omega-3 acid ethyl esters (LOVAZA) 1 gram capsule Take 1 g by mouth. calcium carbonate-vitamin D3 (CALTRATE WITH VITAMIN D3) 600 mg(1,500mg) -800 unit tab Take 1 tabletby mouth twice daily. No current facility-administered medications on file prior to visit. [facility] SPECIALTY CLINICAL ASSESSMENT - HEMATOLOGY ONCOLOGY V6: Ivent complete: No Assessment to use: Refill Lab monitoring inclusive of CBC, Chem-7, and other labs as pertinent for therapy: Yes Chemo cycle timing assessment: Yes Assessment of injection issues: N/A Current medication list (including drug interaction assessment): Yes Experience of adverse reactions to the medication: Yes Date of influenza vaccination reminder: 04/01/2024 Date of most recent vaccination assessment: 04/01/2024 Treatment Plan Information: Diagnosis: Multiple myeloma - newly diagnosed Previous treatment(s): none, newly diagnosed Treatment plan: Revlimid (lenalidomide) + daratumumab + dexamethasone Starting Dose/Titration: Take 1 capsule (10mg) by mouth daily at bedtime for 21 days on, 7 days off. - Renal dose reduction required?: yes - CrCl 47mL/min, usual dose 25mg: PI recommends DR to 10mg daily, may increase to 15mg after 2 cycles if tolerating; dose reduced to 10 mg. Administration: - Take with or without food - Take at the same time each day with water; swallow whole Warnings: include but are not limited to - CONGRESSIONAL AIDE effects (dizziness, fatigue) - Tumor Flare, TLS - Venous and arterial thromboembolism (DVT, PE, TN, stroke) - BBW - Hematologic toxicity (neutropenia and thrombocytopenia) - BBW - Embryo- toxicity - BBW - No blood (or semen) donations during and 4 weeks post discontinuation Adverse reactions: include but are not limited to - Hepatotoxicity - Peripheral edema - Derm rxns (pruritis, skin rash, xeroderma) - Diarrhea > constipation; decrease appetite, abdominal pain - N/V (min to low) - BMS (neutropenia, thrombocytopenia, anemia) - Fatigue, asthenia, arthralgia, headache; back pain, muscle cramps/spasms Monitoring: - CBC with diff (MCL - weekly C1, Q2 weeks C2-4, then monthly; MDS - weekly x8 weeks, then at leastmonthly; MM - weekly x2 cycles; Q2 weeks C3, then monthly; Follicular and marginal zone lymphoma - weekly x3 weeks, Q2 weeks C2-4, then monthly) - sCr, LFTs (periodically) - TSH (baseline, then every 2-3 months) - ECG when clinically indicated - S/S infection, bruising, bleeding, hepatoxocity, 2ndry malignancy, thromboembolism, derm toxicity, TLS - test (for females of reproductive potential) - Hep B screening Drug-Drug Interactions: no interactions identified by Jennifer Baseline: - CBCD 02/22/23 - TSH 1.680 on 02/15/23 - CrCl 47mL/min on 02/22/23 - Hep B screening 02/23/23 Est. Tx Plan Start Date: No information available Estimated Start Date Info: Per Dr. Voss's discretion MDO to confirm DR for current CrCl - dose adjusted to 10 mg daily. Est. Estimated Treatment Duration: Continue until disease progression or unacceptable toxicity. Ramya Smith RPh [facility]01-27-2025 NoteHNO ID: [id number] Author: RAMYA SMITH RPh Service: ? Author Type: Pharmacist Type: Progress Notes Filed: 08/19/2024 14:40 Note Text: Patient has been enrolled in a new $[id number] robert for Dx: MM through active 07/20/24 to 07/19/25. [facility]01[facility]17[facility] History of Present illness Narrative* Jaime Beatty MD - 08/09/2024 3:36 PM EST Images from the original note were not included. (Elements copied from my note dated 2023), have been reviewed and updated where appropriate, and all reflect current assessment and medical decision making during today's encounter, June 14, 2024) [facility] Reason for visit: follow up myeloma. Baseline assessment on initial diagnosis date 2022 Cancer Staging No matching staging information was found for the patient. Symptomatic multiple myeloma, I Related Organ or Tissue Involvement (CRAB) or other Myeloma Defining Event (MDE): Bone disease: At least one lytic bone lesion on XR or CT if BMPC >=10%, at least 2 bone lesions on XR or CT if BMPC<10%, location of lytic lesion(s): Left clavicular head Antecedent plasma cell dyscrasia: No Myeloma FISH panel: Trisomy 15, trisomy 11 Cytogenetics: 46, XX LDH: 175 ISS stage: ISS Stage II Monoclonal proteins at diagnosis: Serum M-spike: 1.19 gm/dL, Involved serum free light chains: 35.2mg/L, and Uninvolved serum free light chains: 10.4 mg/L Total immunoglobulins at diagnosis: IgG = 1980 mg/dl, IgA = 58 mg/dl, IgM = 38 mg/dl Bone marrow plasma cell infiltration: 10-15% plasma cells in the marrow Systemic treatment and disease course Start 02/23/2023-current Daratumumab, lenalidomide (per AGNES) - Myeloma response according to: International uniform response criteria, Durie et al. Leukemia 20:1467-73, 2006 and Durie et al. ERRATUM in Leukemia 21:1134, 2007. Update in Debra SV et al. Blood 117: 3853-1314, 2011 Local treatments (radiation, surgery, kyphoplasty) 03/02/2023 to 03/08/2023 The Left clavicle received a total dose of 2000 cGy in 5 fractions at 400 cGy/fraction using 6 MV photons with Wedged Pair technique. History of present illness Mrs. Dickinson is an 87-year-old female with past medical history that includes hypothyroidism, GERD, hyperlipidemia, prediabetes, and possible coronary artery disease who was initially evaluated for left mid clavicular pain and swelling at an urgent care facility on 12/26/2022. A 2 view x-ray of the clavicle obtained on that occasion did not reveal evidence of an osseous abnormality. Of note, the tk bell did not experience antecedent trauma to the clavicle prior to that visit. He was initiated onMedrol Dosepak at the time of discharge. Follow-up MRI of the clavicle on 12/29/2022 demonstrated mild expansion and irregular cortical bone in the medial left clavicle. A bone scintigraphy study on 01/05/2023 demonstrated increased uptake in the left sternoclavicular joint medial clavicle, and a CT of the left clavicle and shoulder on 01/11/2023 demonstrated a permeative lytic lesion with a pathologic fracture of the left medial clavicle. The patient was evaluated in our orthopedic oncology clinic on 01/17/2023. CT scans of the chest abdomen and pelvis did not demonstrate any other evidence of overt osseous disease but did demonstrate hepatic hypodensities for which an MRI of the liver was suggested. An image guided biopsy left clavicle was performed demonstrated sheets of plasma cells. Currently paraprotein work-up prior to the current visit is a serum protein electrophoresis demonstrating a monoclonal spike of 1.19 mg/dL and a spot urine protein electrophoresis that does demonstrate a monoclonal paraprotein. The patient has no evidence of underlying bone marrow involvement in terms of her CBC which is entirely normal. Thereis no evidence of renal dysfunction or hypercalcemia. She denies a personal history of other pathologic fractures. She denies recent fevers, chills, night sweats, nausea, vomiting, diarrhea, voice changes, new rash, or weight loss. She has no personal history of malignancy and no strong family history of thrombophilia, bleeding diathesis, or hematologic cancer. Interim Updates: 03/31/2023: The returns evaluation management of symptomatic myeloma. She denies fevers, chills, night sweat nausea, vomiting, diarrhea, and peripheral neuropathy. She continues on aspirin and acyclovir. Pleated radiation therapy to the left clavicle with no residual pain at the site of the previous fracture. Her paraprotein labs demonstrate normalization of her involved serum free light chain and a decrease in her intact monoclonal paraprotein by approximately 50%. There is no evidence of renal dysfunction or hypercalcemia. Whole body low dose CT scan (see below) demonstrates 1/9 rib lytic lesion in addition to the known clavicular lesion. 05/05/2023: Mrs Dickinson is seen for a scheduled follow up visit. She is accompanied by her . Overall, she reports feeling well. Per her account, she has no pain in the area of her L clavicle.Reports two episodes of mild epistaxis over past month. States she has seen ENT in [place] and was told the recurrent nose bleeds were due to the anatomy of the Right side of her nose. Per patient, she is occasionally constipated and eating prunes usually relieves the constipation. Confirms compliance with Revlimid dosing and schedule. 05/31/23: Mrs. Dickinson is seen for a scheduled follow up visit, accompanied by her . She reports overall feeling well. She woke up this morning with a bruise just to the right of the sternoclavicular junction. She denies fevers, chills, night sweats, nausea, vomiting and diarrhea. She deniesnew rashes. Her paraprotein labs from last visit demonstrate a preserved free light chain ratio fabiola fluctuating intact monoclonal paraprotein by protein electrophoresis. 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 Her IgG level has normalized. She has very mild leukopenia and thrombocytopenia. There is no evidence of worsening anemia. There is no evidence of hypercalcemia. Continues on aspirin for thromboprophylaxis and acyclovir for VZV prophylaxis. Performance status is unchanged with the initiation of therapy she notes she is able to complete all of her ADLs and IADLs independently. 07/14/23: Constipation, the patient denies fevers, chills, night sweats, nausea, vomiting, diarrhea, and significant weight changes. 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 Serologically, her immunofixation demonstrates what is likely the presence of daratumumab. Her light chains remain within normal range with a normalized ratio. Her low level intact monoclonal paraprotein may represent daratumumab. She continues to take aspirin and acyclovir as directed. She complains of no new areas of bony pain. 12/01/23: At the present visit, patient denies fevers, chills, night, nausea, vomiting, diarrhea, significantly. She estimates that she wakes at 5 AM every day and is able to work for several hours before becoming tired in the early afternoon. She has not noticed any lymphadenopathy. She has not noticed any early satiety. Paraprotein labs indicate a complete remission. She remains on lenalidomide 10 mg daily day 1 through 21 of a 28-day cycle and monthly daratumumab. We have taken dexamethasone out of her treatment plan. She also receives monthly zoledronic acid. There is no evidence of renal dysfunction, hypercalcemia, or new onset cytopenias. 12/29/23: pt called in last week for brb from rectum. Has known hemorrhoids. Issue subsided without additional interventions. H/h stable. Denies other symptoms. 01/26/24: Mrs. Dickinson returns for follow up. Continues to tolerate treatment well. She tells me sheis recommended to have a dental procedure where they will take some tissue from her upper gum and put it into an implant on her lower jaw. She said her dentist wanted clearance from Dr. Beatty and will be sending the information to him to review. She wont be scheduled until she has an ok from our team. I advised her this will need to be reviewed once we have the details of what they are planning. In prep for this we will hold zometa until we know definitely if she will have this done or not. Started revlimid 01/15. 02/21/24: The patient here for follows up and tolerating the treatment well. Her lab workup from 02/19/24 shows an atypical region of restricted mobility on SPEP and no M protein on immunofixation. K/Lratio is also normal. IgG is 630 as well. CBC still shows mild pancytopenia. She denies recent fevers, chills, night sweats, nausea, vomiting, diarrhea, voice changes, new rash, or weight loss. She has an implant of the tooth planned for April 03 2024. Was counseled on keeping an eye out on the fatigue 06/14/24: In the interim since her last visit, the patient continued to receive daratumumab based maintenance. Today is C18D1. Most recent paraprotein labs reveal what is likely a negative immunofixation, completely normal serum free light chains, immune paresis, and essentially normal hemoglobin, and persistent but stable thrombocytopenia and lymphopenia. 08/09/24: The patient denies fevers, chills, night sweats nausea vomiting and new rash. Her diarrheahas improved dramatically since her recent visit. Continues lenalidomide 10 mg days 1-21 of a 28 day cycle aspirin currently. She is receiving once monthly daratumumab. Paraprotein labs indicate a sustained serologic VGPR at minimum and likely a complete remission. Review of systems General: No fever , No chills, and No night sweats HEENT: No lumps, no difficulty chewing or swallowing, no enlarging tongue, no tooth aches. Musculoskeletal: no current pain Hematological: No bleeding or easy bruising. Lymphatic / Immune system: No lymph node enlargement or infection. Cardiovascular: No orthopnea, no dyspnea, no chest pain, no leg edema, no palpitations. Pulmonary: No dyspnea, no wheezing, no cough. Gastrointestinal: see HPI. No nausea, vomitting, diarrhea, constipation, abdominal pain, or blood in stool. PAST MEDICAL HISTORY Diagnosis Date Advance directive discussed with patient 02/25/2022 Discussed 02/2022 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 rich plaque 03/31/2019 Current use of proton pump inhibitor 07/30/2019 Elevated fasting blood sugar 03/29/2019 GERD without esophagitis 03/29/2019 High cholesterol History of 2019 novel coronavirus disease (COVID-19) 09/07/202202/2022 History of squamous cell carcinoma of skin 03/31/2019 Right side of nose Hypothyroidism, acquired 03/29/[address] 02/25/2022 DPA: Micaela () Medicare annual wellness visit, subsequent 08/17/2020 Medical B eligibilty date 11/21/2002 Last done: 02/11/2020 Mixed hyperglyceridemia 03/29/2019 Multiple myeloma (HCC) 02/13/2023 Osteopenia of spine 03/29/2019 PAST SURGICAL HISTORY Procedure Laterality Date CATARACT EXTRACTION HX Bilateral 2017 COLONOSCOPY 10/25/2021 repeat only if needed HYSTERECTOMY partial - age 40 MASTECTOMY, SIMPLE, COMPLETE Bilateral 1977 with implants for fibrocystic disease (?) NUCLEAR STRESS TEST (WT<440#) ([employer]) 08/09/2013 old records: negative PAST SURGICAL HISTORY OF 1995 breast implants Allergies / intolerances ALLERGIES Allergen Reactions Sulfa (Sulfonamide * Swelling Adhesive Tape-Silic* Rash Medications REVLIMID 10 mg capsule^Take 1 capsule (10 MG) by mouth daily at bedtime for 21 days on and 7 days off.^Disp: 21 capsule^Rfl: 0 levothyroxine (SYNTHROID) 50 mcg tablet^Take 1 tablet by mouth once daily. Take on empty stomach. For Thyroid.^Disp: 90 tablet^Rfl: 1 omeprazole (PRILOSEC) 40 mg capsule^Take 1 capsule by mouth daily before breakfast. 1/2 hr before meal.^Disp: 90 capsule^Rfl: 1 acyclovir (ZOVIRAX) 400 mg tablet^Take 1 tablet by mouth once daily.^Disp: 30 tablet^Rfl: 4 pravastatin (PRAVACHOL) 80 mg tablet^Take 1 tablet by mouth once daily.^Disp: 90 tablet^Rfl: 1 ondansetron (ZOFRAN) 8 mg tablet^Take 1 tablet by mouth once daily as needed for nausea/vomiting.^Disp: 30 tablet^Rfl: 0 cyanocobalamin (VITAMIN B-12) 500 mcg tablet^Take 1 tablet by mouth once daily.^Disp: ^Rfl: FERROUS SULFATE ORAL^Take 1 tablet by mouth.^Disp: ^Rfl: aspirin, enteric coated (ASPIRIN, ENTERIC COATED) 81 mg EC tablet^Take 81 mg by mouth.^Disp: ^Rfl: omega-3 acid ethyl esters (LOVAZA) 1 gram capsule^Take 1 g by mouth.^Disp: ^Rfl: calcium carbonate-vitamin D3 (CALTRATE WITH VITAMIN D3) 600 mg(1,500mg) -800 unit tab^Take 1 tabletby mouth twice daily.^Disp: ^Rfl: Social History Tobacco Use Smoking status: Never Smokeless tobacco: Never Vaping Use Vaping status: Never Used Substance Use Topics Alcohol use: Not Currently Drug use: Not Currently FAMILY HISTORY Problem Relation Age of Onset Heart Failure Mother Diabetes Sister Hyperlipidemia Sister Thyroid Sister Breast Cancer Maternal Grandmother Diabetes Daughter Hyperlipidemia Sister Alzheimer's Disease No Family History Colon Cancer No Family History Prostate Cancer No Family History Ovarian cancer No Family History Uterine Cancer No Family History Coronary Artery Disease No Family History Hypertension No Family History Kidney Disease No Family History Seizures No Family History Stroke No Family History Physical examination There were no vitals taken for this visit. ECOG PS: 1- Restricted in physically strenuous activity. Carries out light duty. General appearance: Well appearing, alert, in no acute distress, well-hydrated, well nourished. HEENT: No lumps, no macroglossia, no icterus. Mucous membranes pink. Neck: Supple, no adenopathy Lungs: even chest rise and fall. Extremities: No deformities, edema. Laboratory tests WBC (k/uL) Date Value 08/05/2024 3.39 07/08/2024 3.61 06/11/2024 3.46 05/14/2024 3.45 04/15/2024 3.74 03/22/2024 4.09 02/19/2024 3.49 01/23/2024 3.13 12/26/2023 2.98 11/28/2023 3.21 09/06/2021 6.85 03/15/2021 7.83 02/04/2021 6.15 01/31/2020 5.74 Abs Neut (ANC) (k/uL) Date Value 09/06/2021 4.61 03/15/2021 5.08 02/04/2021 3.89 01/31/2020 3.68 Abs Neut (k/uL) Date Value 08/05/2024 2.17 07/08/2024 2.46 06/11/2024 2.20 05/14/2024 2.18 04/15/2024 2.79 03/22/2024 2.84 02/19/2024 2.42 01/23/2024 2.19 12/26/2023 2.00 11/28/2023 2.10 Hemoglobin (g/dL) Date Value 08/05/2024 11.1 07/08/2024 10.7 06/11/2024 11.7 05/14/2024 11.3 04/15/2024 11.8 03/22/2024 11.4 02/19/2024 11.0 01/23/2024 11.3 12/26/2023 11.3 11/28/2023 11.9 09/06/2021 14.0 03/15/2021 14.0 02/04/2021 13.3 01/31/2020 13.3 Platelet Count (k/uL) Date Value 08/05/2024 112 07/08/2024 142 06/11/2024 86 05/14/2024 92 04/15/2024 107 03/22/2024 98 02/19/2024 115 01/23/2024 100 12/26/2023 91 11/28/2023 99 09/06/2021 157 03/15/2021 173 02/04/2021 148 01/31/2020 168 Glucose (mg/dL) Date Value 08/05/2024 126 07/08/2024 91 06/11/2024 107 05/14/2024 104 04/15/2024 112 03/19/2024 96 02/19/2024 121 01/23/2024 89 12/26/2023 104 11/28/2023 113 02/04/2021 98 01/31/2020 90 Creatinine (mg/dL) Date Value 08/05/2024 0.91 07/08/2024 0.91 06/11/2024 1.00 05/14/2024 0.85 04/15/2024 0.91 03/19/2024 0.93 02/19/2024 0.94 01/23/2024 0.93 12/26/2023 0.99 11/28/2023 0.96 02/04/2021 0.72 01/31/2020 0.70 Calcium (mg/dL) Date Value 02/04/2021 9.1 01/31/2020 9.5 Calcium, Total (mg/dL) Date Value 08/05/2024 9.4 07/08/2024 9.2 06/11/2024 9.1 05/14/2024 8.8 04/15/2024 9.1 03/19/2024 9.3 02/19/2024 8.2 01/23/2024 8.5 12/26/2023 9.0 11/28/2023 9.5 M-Protein Concentration (g/dL) Date Value 08/05/2024 0.00 07/08/2024 0.00 06/11/2024 0.00 05/14/2024 0.00 04/15/2024 0.00 03/19/2024 0.00 02/19/2024 0.00 01/23/2024 0.16 11/28/2023 0.15 10/31/2023 0.17 10/05/2023 0.19 09/06/2023 0.24 08/09/2023 0.29 07/13/2023 0.31 06/29/2023 0.33 06/14/2023 0.40 05/30/2023 0.39 05/18/2023 0.46 05/04/2023 0.06 04/20/2023 0.13 04/06/2023 0.58 03/29/2023 0.11 03/02/2023 1.20 02/22/2023 1.35 02/15/2023 1.39 01/17/2023 1.19 [place] Free, Serum Date Value 08/05/2024 15.8 mg/L 07/08/2024 13.5 mg/L 06/11/2024 15.0 mg/L 05/14/2024 17.0 mg/L 04/15/2024 13.3 mg/L 03/19/2024 17.1 mg/L 02/19/2024 16.0 mg/L 01/23/2024 16.7 mg/L 11/28/2023 17.3 mg/L 10/31/2023 15.6 mg/L 10/05/2023 16.2 mg/L 09/06/2023 15.5 mg/L 08/09/2023 16.0 mg/L 07/13/2023 Comment: Unable to assay. Specimen hemolyzed. Rarely, increased serum free light chains levels may not be detected or accurately quantified due to prozone phenomenon or in high viscosity samples using this immunoturbidimetric assay. Correlation with other laboratory results and clinical findings is recommended. The [place] Free Light Chain was performed using the Binding Site Optilite immunoturbidimetric method. Result obtained with different assay methods or kits cannot be used interchangeably. 06/29/2023 21.2 mg/L 06/14/2023 18.6 mg/L 05/30/2023 21.7 mg/L 05/18/2023 20.8 mg/L 05/04/2023 20.8 mg/L 04/20/2023 17.7 mg/L 04/06/2023 21.9 mg/L 03/29/2023 21.4 mg/L 03/02/2023 21.3 mg/L 02/22/2023 30.5 mg/L 02/15/2023 35.2 mg/L [place] Free, Serum (mg/L) Date Value 08/05/2024 18.6 07/08/2024 14.5 06/11/2024 16.3 05/14/2024 17.1 04/15/2024 14.2 03/19/2024 18.2 02/19/2024 19.4 01/23/2024 18.4 11/28/2023 16.8 10/31/2023 15.8 10/05/2023 14.7 09/06/2023 13.9 08/09/2023 13.0 07/13/2023 10.4 06/29/2023 11.5 06/14/2023 9.5 05/30/2023 10.4 05/18/2023 10.1 05/04/2023 10.4 04/20/2023 6.6 04/06/2023 13.0 03/29/2023 13.0 03/02/2023 4.6 02/22/2023 11.1 02/15/2023 10.4 Interpretation (MPA) (no units) Date Value 06/11/2024 Poorly defined region of restricted mobility in the lambda alejandro. Pattern is less well defined or fainter than typically seen in monoclonal gammopathy. This could represent either an atypical presentation of polyclonal immunoglobulins or the presence of a low level lambda containing monoclonal gammopathy. If clinically indicated, urine monoclonal protein analysis and serum free light chain measurem ents are recommended to evaluate further for monoclonal gammopathy. Clinical correlation is necessary. 04/15/2024 There is a faint band in the IgG and kappa lanes. The patient is receiving a therapeutic monoclonalantibody, for which the electrophoretic properties have not been well-defined. Cannot exclude the possibility that this band represents a therapeutic monoclonal antibody rather than an IgG kappa paraprotein. Recommend correlation with serum free light chain and urine monoclonal protein analysis. 01/23/2024 There is an atypical restricted band present in the IgG and kappa regions. The location of the IgG kappa band suggests the presence of daratumumab, although one cannot rule out the possibility that this band represents a disease-related monoclonal protein. If clinically required, specific testing for daratumumab may be ordered to confirm the presence of the drug in this patient. 11/28/2023 There are two atypical restricted bands present in the IgG and kappa regions. The location of the IgG kappa band suggests the presence of daratamumab. However the second band has a different migration pattern and is unlikely to represent daratumumab. Poorly defined region of restricted mobility in the lambda alejandro. Pattern is less well defined or fainter than typically seen in monoclonal gammopathy. This could represent either an atypical presentation of polyclonal immunoglobulins or the presence of a low level lambda containing monoclonal gammopathy. 10/31/2023 There are two atypical restricted bands present in the IgG and kappa regions. The location of the IgG kappa band suggests the presence of daratamumab. However the second band has a different migration pattern and is unlikely to represent daratumumab. Imaging - MRI 12/29/2022: demonstrating mild expansion and irregular cortical bone in medial left clavicle. - Bone scintography 01/05/2023: increased uptake in left sternoclavicular joint, and medial clavicle. - CT left clavicle/shoulder 01/11/2023: permeative lytic lesion with pathological fracture of left medial clavicle. Low-dose CT scan of the whole body (02/22/2023) 1. Stable expansile, lytic bone lesion with associated cortical destruction involving the medial left clavicle, corresponding with the site of recent biopsy. 2. There is a lytic lesion involving the posterior right ninth rib at the costovertebral joint with disruption of the posterior cortex. 3. No other lytic bone lesions identified. 4. 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 Correlation with prior outside studies, if available, would be helpful. This could be further evaluated with dedicated head CT. 5. Additional findings as above which are stable from the recent chest and abdominopelvic CT exams. Pathology: Image guided biopsy of the mid left clavicle (01/30/2023) FINAL DIAGNOSIS A. Lesion, left clavicular head, biopsy: - Plasma cell neoplasm (kappa). - See comment. CV/mm/02/01/2023 Diagnosis Comment Histologic sections show fragments of blood clot associated with clusters of plasma cells. The plasma cells are intermediate sized, with abundant cytoplasm and round, eccentric nuclei with mature chromatin. Immunohistochemical stains have been performed with appropriately staining controls. The plasma cells are positive for CD138. On the stains for kappa or lambda they appear monotypic kappa. 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 Further classification of this process requires correlation with clinical, radiologic, and laboratory findings. Impression and Plan Cancer Staging No matching staging information was found for the patient. #multiple myeloma Cytogenetic risk category: Standard risk Frailty Score: 0 IMWG Response Criteria: Renal: Normal creatinine, clinically no evidence for renal dysfunction. Infectious diseases: No current infection, no need for prophylaxis Musculoskeletal: Chronic pain, satisfactorily controlled. Bone modifying therapy: zometa Venous thromboembolism risk: No need for DVT prophylaxis control counseling: Does not apply since patient is naturally postmenopausal for greater than24 months or post hysterectomy or post bilateral oophorectomy Neurology: No neurologic symptoms Health maintenance discussed: Regular exercise and Appropriate diet Side effects from current medications: None Mrs. Dickinson is an 88-year-old female with excellent performance status who was recently diagnosedwith a fracture of the left mid clavicle without evidence of trauma to the site. An image guided biopsy revealed plasma cell involvement and a initial protein electrophoresis demonstrated a monoclonal paraprotein 1.19 mg/dL. Cross-sectional imaging revealed no evidence of additional osseous disease. She continues on the AGNES regimen with excellent tolerance of treatment and performance status. Her intact monoclonal paraprotein has fluctuated; however, this is in the context of daratumumab treatment and an underlying CD5+ B-cell clone. Her total IgG level has normalized and there are no other i ndications of symptomatic or biochemical progression. Overall, she is likely at least achieved a VGPR and probably a CR. Her immunofixation remains negative. We will continue aspirin, acyclovir, and bone stabilizing therapy. Plan Summary: -Continue daratumumab monthly and lenalidomide (dexamethasone dropped based on Agnes protocol) with lenalidomide 10 mg day 1 through 21 of a 28-day cycle for now -No further dexamethasone with treatment -started bone stabilizing therapy with zometa today -Continue acyclovir and aspirin -RTC in 8 weeks Jaime Beatty MD Medical Decision Making: Problems: Moderate: 2+ stable chronic illnesses Data: Unique test result(s) reviewed: 3+ Unique test(s) ordered: 3+ Risk: High: High risk from testing/treatment Medical Decision Making Level: 4 - Moderate documented in [facility] encounterMag[facility] Telephone encounter Note * Telephone Encounter - Jody Taylor RN - 08/06/2024 1:58 PM EST Pt called and is notified of providers results and instructions. Pt voices understanding. Jody Taylor RN [facility] Miscellaneous Notes* Telephone Encounter - Jody Taylor RN - 08/06/2024 1:58 PM EST Pt called and is notified of providers results and instructions. Pt voices understanding. Jody Taylor RN * Telephone Encounter - Andrew Stanton APRN.CNP - 08/05/2024 12:08 PM EST Please let patient know her CXR shows minimal residual left likely from atelectasis. Patient does not need any further imaging. documented in this encounterMag[facility]01-13-[facility]25 Telephone encounter Note * Telephone Encounter - Andrew Stanton APRN.CNP - 08/05/2024 12:08 PM EST Please let patient know her CXR shows minimal residual left likely from atelectasis. Patient does not need any further imaging. [facility] History of Present illness Narrative* Yudith Castro RT(R) - 08/05/2024 10:30 AM EST Radiology Service Progress Note PATIENT NAME: Kayley Dickinson DATE OF SERVICE: August 05, 2024 TIME: 9:28 PM PATIENT IDENTITY VERIFICATION COMPLETED USING TWO (2) IDENTIFIERS: Name and Date of confirmedby patient verbally. FALL SCREENING: Has the patient had 2 falls in the last year or 1 fall with injury or currently using an Ambulatory Assistive Device (Walker, Cane, Wheelchair, Crutches, etc.)? No PATIENT GENDER DATA: Assigned female at . status: : No status:N/A PATIENT RELEVANT IMPLANT DATA REVIEWED: Not Applicable PATIENT PRESENTS WITH AN IMPLANTABLE OR ATTACHED RIVER EXPEDITION GUIDE: No RADIOLOGY DEPARTMENT: General X-ray: Exam(s) Completed: Chest X-Ray PERIPHERAL IV DATA: Not applicable SIGNED BY: Yudith Castro RT(R) August 05, 2024 9:28 PM documented in this encounterMagruder Hospital01-13-2025 [facility] Note[facility]12[facility] History of Present illness Narrative* Andrew Stanton, NABILA.[employer] TUBE BENDER - 07/23/2024 12:49 PM EST Chief Complaint Patient presents with: Follow Up HPI Kayley Dickinson is a 88 year old female who presents here today for Above Complaints.. Patient presents for PNA follow up. Patient was diagnosed with pneumonia at the end of May andinstructed to follow up in 1 month for repeat chest xray. Repeat xray shows focal RLL infitrate, nopleural effusion seen. Patient reports she is asymptomatic. Past medical history, appointments, medications, allergies reviewed. Previous Medical History PAST MEDICAL HISTORY Diagnosis Date Advance directive discussed with patient 02/25/2022 Discussed 02/2022 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 rich plaque 03/31/2019 Current use of proton pump inhibitor 07/30/2019 Elevated fasting blood sugar 03/29/2019 GERD without esophagitis 03/29/2019 High cholesterol History of 2019 novel coronavirus disease (COVID-19) 09/07/202202/2022 History of squamous cell carcinoma of skin 03/31/2019 Right side of nose Hypothyroidism, acquired 03/29/[address] 02/25/2022 DPA: Micaela () Medicare annual wellness visit, subsequent 08/17/2020 Medical B eligibilty date 11/21/2002 Last done: 02/11/2020 Mixed hyperglyceridemia 03/29/2019 Multiple myeloma (HCC) 02/13/2023 Osteopenia of spine 03/29/2019 Previous Surgical History PAST SURGICAL HISTORY Procedure Laterality Date CATARACT EXTRACTION HX Bilateral 2018 COLONOSCOPY 10/25/2021 repeat only if needed HYSTERECTOMY partial - age 40 MASTECTOMY, SIMPLE, COMPLETE Bilateral 1976 with implants for fibrocystic disease (?) NUCLEAR STRESS TEST (WT<440#) (UNION) 08/09/2013 old records: negative PAST SURGICAL HISTORY OF 1995 breast implants Family History FAMILY HISTORY Problem Relation Age of Onset Heart Failure Mother Diabetes Sister Hyperlipidemia Sister Thyroid Sister Breast Cancer Maternal Grandmother Diabetes Daughter Hyperlipidemia Sister Alzheimer's Disease No Family History Colon Cancer No Family History Prostate Cancer No Family History Ovarian cancer No Family History Uterine Cancer No Family History Coronary Artery Disease No Family History Hypertension No Family History Kidney Disease No Family History Seizures No Family History Stroke No Family History Patient Allergies ALLERGIES Allergen Reactions Sulfa (Sulfonamide * Swelling Adhesive Tape-Silic* Rash Current Medications Current Outpatient Medications on File Prior to Visit Medication Sig REVLIMID 10 mg capsule Take 1 capsule (10 MG) by mouth daily at bedtime for 21 days on and 7 days off. levothyroxine (SYNTHROID) 50 mcg tablet Take 1 tablet by mouth once daily. Take on empty stomach. For Thyroid. omeprazole (PRILOSEC) 40 mg capsule Take 1 capsule by mouth daily before breakfast. 1/2 hr before meal. acyclovir (ZOVIRAX) 400 mg tablet Take 1 tablet by mouth once daily. pravastatin (PRAVACHOL) 80 mg tablet Take 1 tablet by mouth once daily. ondansetron (ZOFRAN) 8 mg tablet Take 1 tablet by mouth once daily as needed for nausea/vomiting. cyanocobalamin (VITAMIN B-12) 500 mcg tablet Take 1 tablet by mouth once daily. FERROUS SULFATE ORAL Take 1 tablet by mouth. aspirin, enteric coated (ASPIRIN, ENTERIC COATED) 81 mg EC tablet Take 81 mg by mouth. omega-3 acid ethyl esters (LOVAZA) 1 gram capsule Take 1 g by mouth. calcium carbonate-vitamin D3 (CALTRATE WITH VITAMIN D3) 600 mg(1,500mg) -800 unit tab Take 1 tabletby mouth twice daily. No current facility-administered medications on file prior to visit. Social History Social History Tobacco Use Smoking status: Never Smokeless tobacco: Never Vaping Use Vaping status: Never Used Substance Use Topics Alcohol use: Not Currently Drug use: Not Currently Review of Symptoms REVIEW OF SYSTEMS SEE HPI EXAM: BP 145/68 Pulse 71 Wt 50.8 kg (112 lb) SpO2 96% BMI 21.56 kg/m General Appearance: Well appearing, alert, in no acute distress, well-hydrated, well nourished. Lungs: Lungs clear to auscultation. No wheezing, rhonchi, rales.. Heart: RRR without murmur, gallop, or rubs. No ectopy. Health Maintenance List Covid-19 Vaccine( season) due on 03/24/2024 LDL Cholesterol due on 12/25/2024 Depression Screening due on 03/06/2025 Anxiety Screening due on 03/06/2025 Diabetes Screening due on 07/08/2027 DTaP,Tdap,Td Vaccine(3 - Td or Tdap) due on 08/20/2031 Bone Density Screening Completed Influenza Vaccine Completed Advance Directive Discussion Completed RSV Vaccine Completed Shingrix Vaccine Completed Pneumococcal Vaccine: 50+ Completed HPV Vaccine Aged Out Cervical Cancer Screening Discontinued ASSESSMENT/PLAN: 1. Pneumonia of right lower lobe due to infectious organism - ICD9: 486, ICD10: J18.9 -Resolving on xr repeat xr in 2 weeks. Patient asymptomatic - XR CHEST 2V FRONTAL/LAT Andrew Stanton APRN.[employer] TUBE BENDER documented in this encounterMagruder Hospital12-30-2024 History of Present illness Narrative* José Luis Chapin RPh - 07/22/2024 10:18 AM EST [facility] SPECIALTY CLINICAL ASSESSMENT - CELGENE REMS HEADER V2 Patient is not a female of reproductive potential Lenalidomide - Patient Not of Reproductive Potential V2 All boxes and spaces must be marked or filled in during counseling with the patient for every prescription. José Luis Chapin RPh 10:20 AM July 22, 2024 * José Luis Chapin RPh - 07/22/2024 10:18 AM EST [facility] Specialty Refill Assessment Medication(s): Revlimid Revlimid cycles (28DS: 21 on / 7 off) are as follows: C1D1 03/13/23 C16D1 05/02/24 - delayed d/t covid, approved by Tx team to resume C17D1 05/30/24 C18D1 07/01/24- delayed d/t infection/antibiotics x10d C19D1 07/29/24 C20D1 08/26/24 REMS note: Pt's last survey was completed on 07/22/24. Next survey will be available on or after 12/30/24. Dispensing note: sending dosing calendar with shipment. Patient's current medication list and adherence status to current therapy were reviewed by Specialty Pharmacy clinical pharmacist to identify any new drug interactions or non-compliance to therapy. Therapy continues to be appropriate for disease, patient response, and medical condition. Verification of therapeutic benefit and effectiveness with current therapy was completed. Adverse events, barriers in adherence, and side effects were assessed and addressed if applicable. Will proceed with refill with no changes in therapy - patient progressing towards achieving therapeutic goals based on medication- specific laboratory parameters, disease state markers and outcomes. Office/provider notes have been reviewed prior to dispensing the medication. Steam Finisher Assessment Patient confirmed: Yes Med/dose confirmed: Yes Supplies needed: No supplies needed Missed doses: No Estimated days supply on hand: 0 Next cycle/dose due: 07/29/24 Copay amount: 0 Delivery method: FedEx Signature required: Required ([facility], Medicaid, patient preference) Delivery address: [address] [place] [address] *Signature Required* [place] [address] Delivery date: 07/25/24 Questions or concerns for the pharmacist?: No Did you have any side effects believed to be related to this medication, that resulted in hospitalization?: No Current Outpatient Medications on File Prior to Visit Medication Sig REVLIMID 10 mg capsule Take 1 capsule (10 MG) by mouth daily at bedtime for 21 days on and 7 days off. levothyroxine (SYNTHROID) 50 mcg tablet Take 1 tablet by mouth once daily. Take on empty stomach. For Thyroid. omeprazole (PRILOSEC) 40 mg capsule Take 1 capsule by mouth daily before breakfast. 1/2 hr before meal. acyclovir (ZOVIRAX) 400 mg tablet Take 1 tablet by mouth once daily. pravastatin (PRAVACHOL) 80 mg tablet Take 1 tablet by mouth once daily. ondansetron (ZOFRAN) 8 mg tablet Take 1 tablet by mouth once daily as needed for nausea/vomiting. cyanocobalamin (VITAMIN B-12) 500 mcg tablet Take 1 tablet by mouth once daily. FERROUS SULFATE ORAL Take 1 tablet by mouth. aspirin, enteric coated (ASPIRIN, ENTERIC COATED) 81 mg EC tablet Take 81 mg by mouth. omega-3 acid ethyl esters (LOVAZA) 1 gram capsule Take 1 g by mouth. calcium carbonate-vitamin D3 (CALTRATE WITH VITAMIN D3) 600 mg(1,500mg) -800 unit tab Take 1 tabletby mouth twice daily. No current facility-administered medications on file prior to visit. [facility] SPECIALTY CLINICAL ASSESSMENT - HEMATOLOGY ONCOLOGY V7 Date of influenza vaccination reminder: 04/01/2024 Date of most recent vaccination assessment: 04/01/2024 Treatment Plan Information: Diagnosis: Multiple myeloma - newly diagnosed Previous treatment(s): none, newly diagnosed Treatment plan: Revlimid (lenalidomide) + daratumumab + dexamethasone Starting Dose/Titration: Take 1 capsule (10mg) by mouth daily at bedtime for 21 days on, 7 days off. - Renal dose reduction required?: yes - CrCl 47mL/min, usual dose 25mg: PI recommends DR to 10mg daily, may increase to 15mg after 2 cycles if tolerating; dose reduced to 10 mg. Administration: - Take with or without food - Take at the same time each day with water; swallow whole Warnings: include but are not limited to - CONGRESSIONAL AIDE effects (dizziness, fatigue) - Tumor Flare, TLS - Venous and arterial thromboembolism (DVT, PE, TN, stroke) - BBW - Hematologic toxicity (neutropenia and thrombocytopenia) - BBW - Embryo- toxicity - BBW - No blood (or semen) donations during and 4 weeks post discontinuation Adverse reactions: include but are not limited to - Hepatotoxicity - Peripheral edema - Derm rxns (pruritis, skin rash, xeroderma) - Diarrhea > constipation; decrease appetite, abdominal pain - N/V (min to low) - BMS (neutropenia, thrombocytopenia, anemia) - Fatigue, asthenia, arthralgia, headache; back pain, muscle cramps/spasms Monitoring: - CBC with diff (MCL - weekly C1, Q2 weeks C2-4, then monthly; MDS - weekly x8 weeks, then at leastmonthly; MM - weekly x2 cycles; Q2 weeks C3, then monthly; Follicular and marginal zone lymphoma - weekly x3 weeks, Q2 weeks C2-4, then monthly) - sCr, LFTs (periodically) - TSH (baseline, then every 2-3 months) - ECG when clinically indicated - S/S infection, bruising, bleeding, hepatoxocity, 2ndry malignancy, thromboembolism, derm toxicity, TLS - test (for females of reproductive potential) - Hep B screening Drug-Drug Interactions: no interactions identified by Jennifer Baseline: - CBCD 02/22/23 - TSH 1.680 on 02/15/23 - CrCl 47mL/min on 02/22/23 - Hep B screening 02/23/23 Est. Tx Plan Start Date: No information available Estimated Start Date Info: Per Dr. Voss's discretion MDO to confirm DR for current CrCl - dose adjusted to 10 mg daily. Est. Estimated Treatment Duration: Continue until disease progression or unacceptable toxicity. José Luis Chapin RPh documented in this encounterMag[facility]12-30-2024 Note[facility]12-30-2024 NoteK[facility]12-21-2024 History of Present illness Narrative* Meek Villalobos RT(R) - 07/13/2024 9:30 AM EST Radiology Service Progress Note PATIENT NAME: Kayley Dickinson DATE OF SERVICE: July 13, 2024 TIME: 9:41 AM PATIENT IDENTITY VERIFICATION COMPLETED USING TWO (2) IDENTIFIERS: Name and Date of confirmedby patient verbally. FALL SCREENING: Has the patient had 2 falls in the last year or 1 fall with injury or currently using an Ambulatory Assistive Device (Walker, Cane, Wheelchair, Crutches, etc.)? No PATIENT GENDER DATA: Female. status: : No status: NO. PATIENT RELEVANT IMPLANT DATA REVIEWED: Not Applicable PATIENT PRESENTS WITH AN IMPLANTABLE OR ATTACHED RIVER EXPEDITION GUIDE: No RADIOLOGY DEPARTMENT: General X-ray: Exam(s) Completed: Chest X-Ray PERIPHERAL IV DATA: Not applicable SIGNED BY: RT Jaida(R) July 13, 2024 9:41 AM documented in this encounterMagruder Hospital12-21-2024 NoteK[facility]12-20-2024 Instructions* Patient Instructions* Alvin Balderas APRN.CNP - 07/12/2024 1:25 PM EST Stay hydrated. Drink Gatorade, powerade or something with electrolytes. If you have a stool today give us a sample. We will check for cdiff since you were recently on antibiotics documented in this encounterMagr[facility] Hospital12-20-2024 NoteK[facility]12-20-2024 History of Present illness Narrative* Anika Mcnamara LPN - 07/12/2024 12:40 PM EST Additional intake questions: Has the patient had fever, nausea, vomiting, diarrhea, constipation, fatigue for > 1 week? Yes, vomiting, diarrhea ( 1 times in last 24 hours), and fatigue Does the patient have a decreased appetite? No Does patient want to see a Housekeeping Department Worker? No (yes to any of above refer patient to schedulers for dietitian appointment) ) Does patient have any new or increased numbness or tingling of extremities? No Is patient interested in fertility information? No Does patient need any prescription refills? No Does patient have an advanced directive in place? no Electronically Signed By: Anika Mcnamara LPN * Alvin Balderas APRN.ROSE MARIE - 07/12/2024 9:00 AM EST Images from the original note were not included. (Elements copied from Dr. Beatty note dated 06/14/24, have been reviewed and updated where appropriate, and all reflect current assessment and medical decision making during today's encounter, July 12, 2024) [facility] Plasma Cell Disorder Clinic Reason for visit: follow up myeloma. Baseline assessment on initial diagnosis date 2022 Cancer Staging No matching staging information was found for the patient. Symptomatic multiple myeloma, I Related Organ or Tissue Involvement (CRAB) or other Myeloma Defining Event (MDE): Bone disease: At least one lytic bone lesion on XR or CT if BMPC >=10%, at least 2 bone lesions on XR or CT if BMPC<10%, location of lytic lesion(s): Left clavicular head Antecedent plasma cell dyscrasia: No Myeloma FISH panel: Trisomy 15, trisomy 11 Cytogenetics: 46, XX LDH: 175 ISS stage: ISS Stage II Monoclonal proteins at diagnosis: Serum M-spike: 1.19 gm/dL, Involved serum free light chains: 35.2mg/L, and Uninvolved serum free light chains: 10.4 mg/L Total immunoglobulins at diagnosis: IgG = 1980 mg/dl, IgA = 58 mg/dl, IgM = 38 mg/dl Bone marrow plasma cell infiltration: 10-15% plasma cells in the marrow Systemic treatment and disease course Start 02/23/2023-current Daratumumab, lenalidomide (per AGNES) - Myeloma response according to: International uniform response criteria, Durie et al. Leukemia 20:1467-73, 2006 and Moraie et al. ERRATUM in Leukemia 21:1134, 2007. Update in Debra SV et al. Blood 117: 3799-0477, 2011 Local treatments (radiation, surgery, kyphoplasty) 03/02/2023 to 03/08/2023 The Left clavicle received a total dose of 2000 cGy in 5 fractions at 400 cGy/fraction using 6 MV photons with Wedged Pair technique. History of present illness Mrs. Dickinson is an 87-year-old female with past medical history that includes hypothyroidism, GERD, hyperlipidemia, prediabetes, and possible coronary artery disease who was initially evaluated for left mid clavicular pain and swelling at an urgent care facility on 12/26/2022. A 2 view x-ray of the clavicle obtained on that occasion did not reveal evidence of an osseous abnormality. Of note, the pa ray did not experience antecedent trauma to the clavicle prior to that visit. He was initiated onMedrol Dosepak at the time of discharge. Follow-up MRI of the clavicle on 12/29/2022 demonstrated mild expansion and irregular cortical bone in the medial left clavicle. A bone scintigraphy study on 01/05/2023 demonstrated increased uptake in the left sternoclavicular joint medial clavicle, and a CT of the left clavicle and shoulder on 01/11/2023 demonstrated a permeative lytic lesion with a pathologic fracture of the left medial clavicle. The patient was evaluated in our orthopedic oncology clinic on 01/17/2023. CT scans of the chest abdomen and pelvis did not demonstrate any other evidence of overt osseous disease but did demonstrate hepatic hypodensities for which an MRI of the liver was suggested. An image guided biopsy left clavicle was performed demonstrated sheets of plasma cells. Currently paraprotein work-up prior to the current visit is a serum protein electrophoresis demonstrating a monoclonal spike of 1.19 mg/dL and a spot urine protein electrophoresis that does demonstrate a monoclonal paraprotein. The patient has no evidence of underlying bone marrow involvement in terms of her CBC which is entirely normal. Thereis no evidence of renal dysfunction or hypercalcemia. She denies a personal history of other pathologic fractures. She denies recent fevers, chills, night sweats, nausea, vomiting, diarrhea, voice changes, new rash, or weight loss. She has no personal history of malignancy and no strong family history of thrombophilia, bleeding diathesis, or hematologic cancer. Interim Updates: 03/31/2023: The returns evaluation management of symptomatic myeloma. She denies fevers, chills, night sweat nausea, vomiting, diarrhea, and peripheral neuropathy. She continues on aspirin and acyclovir. Pleated radiation therapy to the left clavicle with no residual pain at the site of the previous fracture. Her paraprotein labs demonstrate normalization of her involved serum free light chain and a decrease in her intact monoclonal paraprotein by approximately 50%. There is no evidence of renal dysfunction or hypercalcemia. Whole body low dose CT scan (see below) demonstrates 1/9 rib lytic lesion in addition to the known clavicular lesion. 05/05/2023: Mrs Dickinson is seen for a scheduled follow up visit. She is accompanied by her . Overall, she reports feeling well. Per her account, she has no pain in the area of her L clavicle.Reports two episodes of mild epistaxis over past month. States she has seen ENT in [place] and was told the recurrent nose bleeds were due to the anatomy of the Right side of her nose. Per patient, she is occasionally constipated and eating prunes usually relieves the constipation. Confirms compliance with Revlimid dosing and schedule. 05/31/23: Mrs. Dickinson is seen for a scheduled follow up visit, accompanied by her . She reports overall feeling well. She woke up this morning with a bruise just to the right of the sternoclavicular junction. She denies fevers, chills, night sweats, nausea, vomiting and diarrhea. She deniesnew rashes. Her paraprotein labs from last visit demonstrate a preserved free light chain ratio fabiola fluctuating intact monoclonal paraprotein by protein electrophoresis. 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 Her IgG level has normalized. She has very mild leukopenia and thrombocytopenia. There is no evidence of worsening anemia. There is no evidence of hypercalcemia. Continues on aspirin for thromboprophylaxis and acyclovir for VZV prophylaxis. Performance status is unchanged with the initiation of therapy she notes she is able to complete all of her ADLs and IADLs independently. 07/14/23: Constipation, the patient denies fevers, chills, night sweats, nausea, vomiting, diarrhea, and significant weight changes. 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 Serologically, her immunofixation demonstrates what is likely the presence of daratumumab. Her light chains remain within normal range with a normalized ratio. Her low level intact monoclonal paraprotein may represent daratumumab. She continues to take aspirin and acyclovir as directed. She complains of no new areas of bony pain. 12/01/23: At the present visit, patient denies fevers, chills, night, nausea, vomiting, diarrhea, significantly. She estimates that she wakes at 5 AM every day and is able to work for several hours before becoming tired in the early afternoon. She has not noticed any lymphadenopathy. She has not noticed any early satiety. Paraprotein labs indicate a complete remission. She remains on lenalidomide 10 mg daily day 1 through 21 of a 28-day cycle and monthly daratumumab. We have taken dexamethasone out of her treatment plan. She also receives monthly zoledronic acid. There is no evidence of renal dysfunction, hypercalcemia, or new onset cytopenias. 12/29/23: pt called in last week for brb from rectum. Has known hemorrhoids. Issue subsided without additional interventions. H/h stable. Denies other symptoms. 01/26/24: Mrs. Dickinson returns for follow up. Continues to tolerate treatment well. She tells me sheis recommended to have a dental procedure where they will take some tissue from her upper gum and put it into an implant on her lower jaw. She said her dentist wanted clearance from Dr. Beatty and will be sending the information to him to review. She wont be scheduled until she has an ok from our team. I advised her this will need to be reviewed once we have the details of what they are planning. In prep for this we will hold zometa until we know definitely if she will have this done or not. Started revlimid 01/15. 02/21/24: The patient here for follows up and tolerating the treatment well. Her lab workup from 02/19/24 shows an atypical region of restricted mobility on SPEP and no M protein on immunofixation. K/Lratio is also normal. IgG is 630 as well. CBC still shows mild pancytopenia. She denies recent fevers, chills, night sweats, nausea, vomiting, diarrhea, voice changes, new rash, or weight loss. She has an implant of the tooth planned for April 03 2024. Was counseled on keeping an eye out on the fatigue 06/14/24: In the interim since her last visit, the patient continued to receive daratumumab based maintenance. Today is C18D1. Most recent paraprotein labs reveal what is likely a negative immunofixation, completely normal serum free light chains, immune paresis, and essentially normal hemoglobin, and persistent but stable thrombocytopenia and lymphopenia. 07/12/24: Kayley returns for follow up. Mild Pneumonia prescribed antibiotics Augmentin 10 days. Residual cough but feeling better. Had some diarrhea and vomiting. No known sick contacts. No fevers,chills. No upper respiratory symptoms. Back on revlimid Review of systems General: No fever , No chills, and No night sweats HEENT: No lumps, no difficulty chewing or swallowing, no enlarging tongue, no tooth aches. Musculoskeletal: no current pain Hematological: No bleeding or easy bruising. Lymphatic / Immune system: No lymph node enlargement or infection. Cardiovascular: No orthopnea, no dyspnea, no chest pain, no leg edema, no palpitations. Pulmonary: No dyspnea, no wheezing, no cough. Gastrointestinal: see HPI. No nausea, vomitting, diarrhea, constipation, abdominal pain, or blood in stool. PAST MEDICAL HISTORY Diagnosis Date Advance directive discussed with patient 02/25/2022 Discussed 02/2022 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 rich plaque 03/31/2019 Current use of proton pump inhibitor 07/30/2019 Elevated fasting blood sugar 03/29/2019 GERD without esophagitis 03/29/2019 High cholesterol History of 2019 novel coronavirus disease (COVID-19) 09/07/202202/2022 History of squamous cell carcinoma of skin 03/31/2019 Right side of nose Hypothyroidism, acquired 03/29/[address] 02/25/2022 DPA: Micaela () Medicare annual wellness visit, subsequent 08/17/2020 Medical B eligibilty date 11/21/2002 Last done: 02/11/2020 Mixed hyperglyceridemia 03/29/2019 Multiple myeloma (HCC) 02/13/2023 Osteopenia of spine 03/29/2019 PAST SURGICAL HISTORY Procedure Laterality Date CATARACT EXTRACTION HX Bilateral 2017 COLONOSCOPY 10/25/2021 repeat only if needed HYSTERECTOMY partial - age 40 MASTECTOMY, SIMPLE, COMPLETE Bilateral 1977 with implants for fibrocystic disease (?) NUCLEAR STRESS TEST (WT<440#) (UNION) 08/09/2013 old records: negative PAST SURGICAL HISTORY OF 1995 breast implants Allergies / intolerances ALLERGIES Allergen Reactions Sulfa (Sulfonamide * Swelling Adhesive Tape-Silic* Rash Medications REVLIMID 10 mg capsule Take 1 capsule (10 MG) by mouth daily at bedtime for 21 days on and 7 days off. levothyroxine (SYNTHROID) 50 mcg tablet Take 1 tablet by mouth once daily. Take on empty stomach. For Thyroid. omeprazole (PRILOSEC) 40 mg capsule Take 1 capsule by mouth daily before breakfast. 1/2 hr before meal. acyclovir (ZOVIRAX) 400 mg tablet Take 1 tablet by mouth once daily. pravastatin (PRAVACHOL) 80 mg tablet Take 1 tablet by mouth once daily. ondansetron (ZOFRAN) 8 mg tablet Take 1 tablet by mouth once daily as needed for nausea/vomiting. cyanocobalamin (VITAMIN B-12) 500 mcg tablet Take 1 tablet by mouth once daily. FERROUS SULFATE ORAL Take 1 tablet by mouth. aspirin, enteric coated (ASPIRIN, ENTERIC COATED) 81 mg EC tablet Take 81 mg by mouth. omega-3 acid ethyl esters (LOVAZA) 1 gram capsule Take 1 g by mouth. calcium carbonate-vitamin D3 (CALTRATE WITH VITAMIN D3) 600 mg(1,500mg) -800 unit tab Take 1 tabletby mouth twice daily. Social History Tobacco Use Smoking status: Never Smokeless tobacco: Never Vaping Use Vaping status: Never Used Substance Use Topics Alcohol use: Not Currently Drug use: Not Currently FAMILY HISTORY Problem Relation Age of Onset Heart Failure Mother Diabetes Sister Hyperlipidemia Sister Thyroid Sister Breast Cancer Maternal Grandmother Diabetes Daughter Hyperlipidemia Sister Alzheimer's Disease No Family History Colon Cancer No Family History Prostate Cancer No Family History Ovarian cancer No Family History Uterine Cancer No Family History Coronary Artery Disease No Family History Hypertension No Family History Kidney Disease No Family History Seizures No Family History Stroke No Family History Physical examination BP 126/62 Pulse 67 Temp 36.4 C (97.6 F) (Temporal) Resp 16 Wt 49.7 kg (109 lb 9.1 oz) SpO2 99% BMI 21.09 kg/m ECOG PS: 1- Restricted in physically strenuous activity. Carries out light duty. General appearance: Well appearing, alert, in no acute distress, well-hydrated, well nourished. HEENT: No lumps, no macroglossia, no icterus. Mucous membranes pink. Neck: Supple, no adenopathy Heart: rrr Lungs: CTA Extremities: No deformities, edema. Laboratory tests WBC (k/uL) Date Value 07/08/2024 3.61 06/11/2024 3.46 05/14/2024 3.45 04/15/2024 3.74 03/22/2024 4.09 02/19/2024 3.49 01/23/2024 3.13 12/26/2023 2.98 11/28/2023 3.21 10/31/2023 3.27 09/06/2021 6.85 03/15/2021 7.83 02/04/2021 6.15 01/31/2020 5.74 Abs Neut (ANC) (k/uL) Date Value 09/06/2021 4.61 03/15/2021 5.08 02/04/2021 3.89 01/31/2020 3.68 Abs Neut (k/uL) Date Value 07/08/2024 2.46 06/11/2024 2.20 05/14/2024 2.18 04/15/2024 2.79 03/22/2024 2.84 02/19/2024 2.42 01/23/2024 2.19 12/26/2023 2.00 11/28/2023 2.10 10/31/2023 2.08 Hemoglobin (g/dL) Date Value 07/08/2024 10.7 06/11/2024 11.7 05/14/2024 11.3 04/15/2024 11.8 03/22/2024 11.4 02/19/2024 11.0 01/23/2024 11.3 12/26/2023 11.3 11/28/2023 11.9 10/31/2023 12.4 09/06/2021 14.0 03/15/2021 14.0 02/04/2021 13.3 01/31/2020 13.3 Platelet Count (k/uL) Date Value 07/08/2024 142 06/11/2024 86 05/14/2024 92 04/15/2024 107 03/22/2024 98 02/19/2024 115 01/23/2024 100 12/26/2023 91 11/28/2023 99 10/31/2023 93 09/06/2021 157 03/15/2021 173 02/04/2021 148 01/31/2020 168 Glucose (mg/dL) Date Value 07/08/2024 91 06/11/2024 107 05/14/2024 104 04/15/2024 112 03/19/2024 96 02/19/2024 121 01/23/2024 89 12/26/2023 104 11/28/2023 113 10/31/2023 115 02/04/2021 98 01/31/2020 90 Creatinine (mg/dL) Date Value 07/08/2024 0.91 06/11/2024 1.00 05/14/2024 0.85 04/15/2024 0.91 03/19/2024 0.93 02/19/2024 0.94 01/23/2024 0.93 12/26/2023 0.99 11/28/2023 0.96 10/31/2023 0.83 02/04/2021 0.72 01/31/2020 0.70 Calcium (mg/dL) Date Value 02/04/2021 9.1 01/31/2020 9.5 Calcium, Total (mg/dL) Date Value 07/08/2024 9.2 06/11/2024 9.1 05/14/2024 8.8 04/15/2024 9.1 03/19/2024 9.3 02/19/2024 8.2 01/23/2024 8.5 12/26/2023 9.0 11/28/2023 9.5 10/31/2023 10.1 M-Protein Concentration (g/dL) Date Value 07/08/2024 0.00 06/11/2024 0.00 05/14/2024 0.00 04/15/2024 0.00 03/19/2024 0.00 02/19/2024 0.00 01/23/2024 0.16 11/28/2023 0.15 10/31/2023 0.17 10/05/2023 0.19 09/06/2023 0.24 08/09/2023 0.29 07/13/2023 0.31 06/29/2023 0.33 06/14/2023 0.40 05/30/2023 0.39 05/18/2023 0.46 05/04/2023 0.06 04/20/2023 0.13 04/06/2023 0.58 03/29/2023 0.11 03/02/2023 1.20 02/22/2023 1.35 02/15/2023 1.39 01/17/2023 1.19 [place] Free, Serum Date Value 07/08/2024 13.5 mg/L 06/11/2024 15.0 mg/L 05/14/2024 17.0 mg/L 04/15/2024 13.3 mg/L 03/19/2024 17.1 mg/L 02/19/2024 16.0 mg/L 01/23/2024 16.7 mg/L 11/28/2023 17.3 mg/L 10/31/2023 15.6 mg/L 10/05/2023 16.2 mg/L 09/06/2023 15.5 mg/L 08/09/2023 16.0 mg/L 07/13/2023 Comment: Unable to assay. Specimen hemolyzed. Rarely, increased serum free light chains levels may not be detected or accurately quantified due to prozone phenomenon or in high viscosity samples using this immunoturbidimetric assay. Correlation with other laboratory results and clinical findings is recommended. The [place] Free Light Chain was performed using the Binding Site Optilite immunoturbidimetric method. Result obtained with different assay methods or kits cannot be used interchangeably. 06/29/2023 21.2 mg/L 06/14/2023 18.6 mg/L 05/30/2023 21.7 mg/L 05/18/2023 20.8 mg/L 05/04/2023 20.8 mg/L 04/20/2023 17.7 mg/L 04/06/2023 21.9 mg/L 03/29/2023 21.4 mg/L 03/02/2023 21.3 mg/L 02/22/2023 30.5 mg/L 02/15/2023 35.2 mg/L L[place] Free, Serum (mg/L) Date Value 07/08/2024 14.5 06/11/2024 16.3 05/14/2024 17.1 04/15/2024 14.2 03/19/2024 18.2 02/19/2024 19.4 01/23/2024 18.4 11/28/2023 16.8 10/31/2023 15.8 10/05/2023 14.7 09/06/2023 13.9 08/09/2023 13.0 07/13/2023 10.4 06/29/2023 11.5 06/14/2023 9.5 05/30/2023 10.4 05/18/2023 10.1 05/04/2023 10.4 04/20/2023 6.6 04/06/2023 13.0 03/29/2023 13.0 03/02/2023 4.6 02/22/2023 11.1 02/15/2023 10.4 Interpretation (MPA) (no units) Date Value 06/11/2024 Poorly defined region of restricted mobility in the lambda alejandro. Pattern is less well defined or fainter than typically seen in monoclonal gammopathy. This could represent either an atypical presentation of polyclonal immunoglobulins or the presence of a low level lambda containing monoclonal gammopathy. If clinically indicated, urine monoclonal protein analysis and serum free light chain measurem ents are recommended to evaluate further for monoclonal gammopathy. Clinical correlation is necessary. 04/15/2024 There is a faint band in the IgG and kappa lanes. The patient is receiving a therapeutic monoclonalantibody, for which the electrophoretic properties have not been well-defined. Cannot exclude the possibility that this band represents a therapeutic monoclonal antibody rather than an IgG kappa paraprotein. Recommend correlation with serum free light chain and urine monoclonal protein analysis. 01/23/2024 There is an atypical restricted band present in the IgG and kappa regions. The location of the IgG kappa band suggests the presence of daratumumab, although one cannot rule out the possibility that this band represents a disease-related monoclonal protein. If clinically required, specific testing for daratumumab may be ordered to confirm the presence of the drug in this patient. 11/28/2023 There are two atypical restricted bands present in the IgG and kappa regions. The location of the IgG kappa band suggests the presence of daratamumab. However the second band has a different migration pattern and is unlikely to represent daratumumab. Poorly defined region of restricted mobility in the lambda alejandro. Pattern is less well defined or fainter than typically seen in monoclonal gammopathy. This could represent either an atypical presentation of polyclonal immunoglobulins or the presence of a low level lambda containing monoclonal gammopathy. 10/31/2023 There are two atypical restricted bands present in the IgG and kappa regions. The location of the IgG kappa band suggests the presence of daratamumab. However the second band has a different migration pattern and is unlikely to represent daratumumab. Imaging - MRI 12/29/2022: demonstrating mild expansion and irregular cortical bone in medial left clavicle. - Bone scintography 01/05/2023: increased uptake in left sternoclavicular joint, and medial clavicle. - CT left clavicle/shoulder 01/11/2023: permeative lytic lesion with pathological fracture of left medial clavicle. Low-dose CT scan of the whole body (02/22/2023) 1. Stable expansile, lytic bone lesion with associated cortical destruction involving the medial left clavicle, corresponding with the site of recent biopsy. 2. There is a lytic lesion involving the posterior right ninth rib at the costovertebral joint with disruption of the posterior cortex. 3. No other lytic bone lesions identified. 4. 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 Correlation with prior outside studies, if available, would be helpful. This could be further evaluated with dedicated head CT. 5. Additional findings as above which are stable from the recent chest and abdominopelvic CT exams. Pathology: Image guided biopsy of the mid left clavicle (01/30/2023) FINAL DIAGNOSIS A. Lesion, left clavicular head, biopsy: - Plasma cell neoplasm (kappa). - See comment. CVMisa/sb/02/01/2023 Diagnosis Comment Histologic sections show fragments of blood clot associated with clusters of plasma cells. The plasma cells are intermediate sized, with abundant cytoplasm and round, eccentric nuclei with mature chromatin. Immunohistochemical stains have been performed with appropriately staining controls. The plasma cells are positive for CD138. On the stains for kappa or lambda they appear monotypic kappa. 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 Further classification of this process requires correlation with clinical, radiologic, and laboratory findings. Impression and Plan Cancer Staging No matching staging information was found for the patient. #multiple myeloma Cytogenetic risk category: Standard risk Frailty Score: 0 IMWG Response Criteria: Renal: Normal creatinine, clinically no evidence for renal dysfunction. Infectious diseases: No current infection, no need for prophylaxis Musculoskeletal: Chronic pain, satisfactorily controlled. Bone modifying therapy: zometa Venous thromboembolism risk: No need for DVT prophylaxis control counseling: Does not apply since patient is naturally postmenopausal for greater than24 months or post hysterectomy or post bilateral oophorectomy Neurology: No neurologic symptoms Health maintenance discussed: Regular exercise and Appropriate diet Side effects from current medications: None Mrs. Dickinson is an 88-year-old female with excellent performance status who was recently diagnosedwith a fracture of the left mid clavicle without evidence of trauma to the site. An image guided biopsy revealed plasma cell involvement and a initial protein electrophoresis demonstrated a monoclonal paraprotein 1.19 mg/dL. Cross-sectional imaging revealed no evidence of additional osseous disease. She continues on the AGNES regimen with excellent tolerance of treatment and performance status. Her intact monoclonal paraprotein has fluctuated; however, this is in the context of daratumumab treatment and an underlying CD5+ B-cell clone. Her total IgG level has normalized and there are no other i ndications of symptomatic or biochemical progression. Overall, she is likely at least achieved a VGPR and probably a CR. I am attributing her positive immunofixation to recent infection as showing lambda and may be polyclonal immunoglobulins. Her performance status remains excellent. We will continue aspirin, acyclovir, and bone stabilizing therapy. Plan Summary: -Continue daratumumab monthly and lenalidomide (dexamethasone dropped based on Agnes protocol) with lenalidomide 10 mg day 1 through 21 of a 28-day cycle for now -No further dexamethasone with treatment -started bone stabilizing therapy with zometa today -Continue acyclovir and aspirin -check c-diff, recent antibiotics -RTC in 8 weeks Alvin Balderas APRN.[employer] documented in this encounterMag[facility]12-20-2024 Note[facility] Telephone encounter Note* Telephone Encounter - Katey Croft RN - 06/26/2024 11:19 AM EST Reached out to pharmacy. Arranged delivery for tomorrow. Katey Croft RN, BSN Specialty Care Registered Nurse Coordinator Multiple Myeloma and Amyloidosis Program [facility] Work Phone: 1(289) 791-828412-04-2024 Miscellaneous Notes* Telephone Encounter - Katey Croft RN - 06/26/2024 11:19 AM EST Reached out to pharmacy. Arranged delivery for tomorrow. Katey Croft RN, BSN Specialty Care Registered Nurse Coordinator Multiple Myeloma and Amyloidosis Program [facility] * Telephone Encounter - Za Ibarra - 06/26/2024 9:51 AM EST Kayley Roc Dickinson('s) is calling Jaime Beatty MD today regarding 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 (Lenolidimide ) Patient is calling to check on the status of her Lenolidimide rx. Epic shows ordered on 06/18. She is worried she is not going to receive it on time to start taking on Monday. Patient has been identified by name and birthdate. Requesting response back: [phone] (cell) Za Stacey June 26, 2024 documented in this encounterMagruder Hospital12-04-2024 Telephone encounter Note * Telephone Encounter - Za Ibarra - 06/26/2024 9:51 AM EST Kayley Roc Dickinson('s) is calling Jaime Beatty MD today regarding 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 (Lenolidimide ) Patient is calling to check on the status of her Lenolidimide rx. Epic shows ordered on 06/18. She is worried she is not going to receive it on time to start taking on Monday. Patient has been identified by name and birthdate. Requesting response back: [phone] (cell) Zaasha Ibarra June 26, 2024 [facility]12-02-2024 NoteHNO ID: [id number] Author: SHERRI STAHL LPN Service: ? Author Type: LICENSED NURSE Type: Progress Notes Filed: 06/24/2024 11:48 Note Text: Scan on 06/22/2024 11:40 PM by ProviderLaina PA-C: Consultation - [facility]12-[facility] History of Present illness Narrative* Sherri Stahl LPN - 06/24/2024 11:48 AM EST Scan on 06/22/2024 11:40 PM by Laina Mejia PA-C: Consultation - Emergency Medicine documented in this encounterMagruder Hospital11-29-2024 History of Present illness Narrative* Maureen Ariza RPh - 06/21/2024 10:04 AM EST Reviewed OV note on 06/14/24. Note states patient continued to receive daratumumab based maintenance. Today is C18D1. Most recent paraprotein labs reveal what is likely a negative immunofixation, completely normal serum free light chains, immune paresis, and essentially normal hemoglobin, and persistent but stable thrombocytopenia and lymphopenia. 06/19/24 telephone note states hoarse voice/sore throat x 1 week with cough. No fever but reports temperature of 99.4 today. Saw in ER on 06/15 and was given steroids but did not start. ER thought she had laryngitis...Stop Revlimid - she is only has one more dose prior to her off week. 06/21/24 telephone note states She is being placed on Augmentin for 10 days. She will start this morning - instructed her to hold Revlimid until after completed course of antibiotics. 06/11/24 Labs reviewed. Next clinic visit scheduled 07/12/24. ALLERGIES Allergen Reactions Sulfa (Sulfonamide * Swelling Adhesive Tape-Silic* Rash Revlimid cycles (28DS: 21 on / 7 off) are as follows: C1D1 03/13/23 C16D1 05/02/24 - delayed d/t covid, approved by Tx team to resume C17D1 05/30/24 C18D1 07/01/24? - delayed d/t infection C19D1 07/25/24 REMS note: Pt's last survey was completed on 02/06/24. Next survey will be available on or after 07/16/24. Dispensing note: send dosing calendar with shipment. Maureen Ariza, PharmD Clinical Pharmacist, Oncology [facility] P: , F: Pool: P [facility] Pool #: [id number] documented in this encounterMagruder Hospital11-29-2024 NoteK[facility]11-29-2024 NoteK[facility]11-29-2024 NoteK[facility]11-29-2024 Telephone encounter Note* Telephone Encounter - Katey Croft RN - 06/21/2024 8:42 AM EST Spoke to patient via telephone. Was seen in the ER yesterday and diagnosed with pneumonia. She is being placed on Augmentin for 10 days. She will start this morning - instructed her to hold Revlimid until after completed course of antibiotics. Patient verbalized understanding. Katey Croft RN, BSN Specialty Care Registered Nurse Coordinator Multiple Myeloma and Amyloidosis Program [facility] Work Phone: 1(394) 843-698711-29-2024 Miscellaneous Notes* Telephone Encounter - Katey Croft RN - 06/21/2024 8:42 AM EST Spoke to patient via telephone. Was seen in the ER yesterday and diagnosed with pneumonia. She is being placed on Augmentin for 10 days. She will start this morning - instructed her to hold Revlimid until after completed course of antibiotics. Patient verbalized understanding. Katey Croft RN, BSN Specialty Care Registered Nurse Coordinator Multiple Myeloma and Amyloidosis Program [facility] * Telephone Encounter - Milady Sparks - 06/21/2024 8:14 AM EST Kayley Roc Dickinson is calling Jaime Beatty MD today regarding 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 (Message follow up) Patient has been identified by name and birthdate. Patient states she id following up on message. She went to emergency room yesterday and wants to know if she should take the medication that was prescribed. Duration of symptoms: N/A Requesting response back: call at home [phone] (home) Milady Sparks June 21, 2024 documented in this encounterMagruder Hospital11-29-2024 Telephone encounter Note * Telephone Encounter - Milady Sparks - 06/21/2024 8:14 AM EST Kayley Dickinson is calling Jaime Beatty MD today regarding 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 (Message follow up) Patient has been identified by name and birthdate. Patient states she id following up on message. She went to emergency room yesterday and wants to know if she should take the medication that was prescribed. Duration of symptoms: N/A Requesting response back: call at home [phone] (home) Milady Sparks June 21, 2024 [facility]11-28-[facility] Telephone encounter Note* Telephone Encounter - Suma Araujo RN - 06/20/2024 5:09 PM EST Reason for call: Patient calling with concern for productive cough and temp of 100.6F (oral). Patient also sounds to be mildly SOB, although denies difficulty breathing. Cancer patient, receiving monthly treatments while in remission. Outcome: Recommendation to go to the ED now. Patient verbalized understanding and will go to [place]. Reason for Disposition Chest pain (Exception: MILD central chest pain, present only when coughing.) Protocols used: Cough - Acute [id number] [facility]11-28-2024 Miscellaneous Notes* Telephone Encounter - Suma Araujo RN - 06/20/2024 5:09 PM EST Reason for call: Patient calling with concern for productive cough and temp of 100.6F (oral). Patient also sounds to be mildly SOB, although denies difficulty breathing. Cancer patient, receiving monthly treatments while in remission. Outcome: Recommendation to go to the ED now. Patient verbalized understanding and will go to [place]. Reason for Disposition Chest pain (Exception: MILD central chest pain, present only when coughing.) Protocols used: Cough - Acute [id number] documented in this encounterMagruder Hospital11-27-2024 Telephone encounter Note * Telephone Encounter - Katey Croft RN - 06/19/2024 10:54 AM EST Care Coordination Triage Note [facility] Situation: Patient reports Cough/Respiratory Concerns/SOB Background: Disease, current pertinent medications/treatments Patient has history of multiple myeloma currentlyon monthly daratumumab and lenalidomide. Assessment: Reports hoarse voice/sore throat x 1 week with cough. No fever but reports temperature of 99.4 today. Saw in ER on 06/15 and was given steroids but did not start. ER thought she had laryngitis. She was not tested for respiratory infections. Recommendations: Per Katey CroftRN, patient directed to: Manage at home. Instructions provided. Take prescribed dexamethasone from ER. Stop Revlimid - she is only has one more dose prior to her off week. Call on-call doctor for worsening symptoms or 100.4 fever. Katey Croft RN, BSN Specialty Care Registered Nurse Coordinator Multiple Myeloma and Amyloidosis Program [facility] June 19, 2024 10:54 AM [facility] Work Phone: 1(953) 362-448311-27-2024 Miscellaneous Notes* Telephone Encounter - Katey Croft RN - 06/19/2024 10:54 AM EST Care Coordination Triage Note [facility] Situation: Patient reports Cough/Respiratory Concerns/SOB Background: Disease, current pertinent medications/treatments Patient has history of multiple myeloma currentlyon monthly daratumumab and lenalidomide. Assessment: Reports hoarse voice/sore throat x 1 week with cough. No fever but reports temperature of 99.4 today. Saw in ER on 06/15 and was given steroids but did not start. ER thought she had laryngitis. She was not tested for respiratory infections. Recommendations: Per Katey Croft RN, patient directed to: Manage at home. Instructions provided. Take prescribed dexamethasone from ER. Stop Revlimid - she is only has one more dose prior to her off week. Call on-call doctor for worsening symptoms or 100.4 fever. Katey Croft RN, BSN Specialty Care Registered Nurse Coordinator Multiple Myeloma and Amyloidosis Program [facility] June 19, 2024 10:54 AM * Telephone Encounter - Za Ibarra - 06/19/2024 8:23 AM EST Kayley Brian Em('s) is calling Jaime Beatty MD today regarding 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 (Cough ) Patient states she lost her voice for two days and now she has a bad cough. States a lot of mucuscomes up when she coughs. This morning she has a temperature of 99.4. Asking if there is something she can take. Patient has been identified by name and birthdate. Requesting response back: [phone] (cell) Za Ibarra June 19, 2024 documented in this [facility] Tele[facility] encounter Note * Telephone Encounter - Za Ibarra - 06/19/2024 8:23 AM EST Kayley Roc Dickinson('s) is calling Jaime Beatty MD today regarding 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 (Cough ) Patient states she lost her voice for two days and now she has a bad cough. States a lot of mucuscomes up when she coughs. This morning she has a temperature of 99.4. Asking if there is something she can take. Patient has been identified by name and birthdate. Requesting response back: [phone] (cell) Za Ibarra June 19, 2024 [facility] NoteHNO ID: [id number] Author: HILDA CHING MA Service: ? Author Type: Security Supervisor Type: Progress Notes Filed: 06/17/2024 16:17 Note Text: Scan on 06/16/2024 1:26 AM by Provider, External, PA-C: Consultation - Emergency Medicine Hilda Ching [facility]11-25-2024 History of Present illness Narrative* Hilda Ching MA - 06/17/2024 4:16 PM EST Scan on 06/16/2024 1:26 AM by Provider, RAY Marina: Consultation - Emergency Medicine Hilda Ching MA [facility] History of Present illness Narrative* Cyrus Ramirez RT(R) - 06/14/2024 3:10 PM EST Radiology Service Progress Note PATIENT NAME: Kayley Dickinson DATE OF SERVICE: June 14, 2024 TIME: 2:59 PM PATIENT IDENTITY VERIFICATION COMPLETED USING TWO (2) IDENTIFIERS: Name and Date of confirmedby patient verbally. FALL SCREENING: Has the patient had 2 falls in the last year or 1 fall with injury or currently using an Ambulatory Assistive Device (Walker, Cane, Wheelchair, Crutches, etc.)? No PATIENT GENDER DATA: Female. status: : No status: NO. PATIENT RELEVANT IMPLANT DATA REVIEWED: Not Applicable PATIENT PRESENTS WITH AN IMPLANTABLE OR ATTACHED RIVER EXPEDITION GUIDE: No RADIOLOGY DEPARTMENT: General X-ray: Exam(s) Completed: Chest X-Ray PERIPHERAL IV DATA: Not applicable SIGNED BY: RT Ellen(R) June 14, 2024 2:59 PM [facility] in [facility] of Present illness Narrative* Jaime Beatty MD - 06/14/2024 3:00 PM EST Images from the original note were not included. (Elements copied from my note dated 2023), have been reviewed and updated where appropriate, and all reflect current assessment and medical decision making during today's encounter, June 14, 2024) [facility] Plasma Cell Disorder [facility] Reason for visit: follow up myeloma. Baseline assessment on initial diagnosis date 2022 Cancer Staging No matching staging information was found for the patient. Symptomatic multiple myeloma, I Related Organ or Tissue Involvement (CRAB) or other Myeloma Defining Event (MDE): Bone disease: At least one lytic bone lesion on XR or CT if BMPC >=10%, at least 2 bone lesions on XR or CT if BMPC<10%, location of lytic lesion(s): Left clavicular head Antecedent plasma cell dyscrasia: No Myeloma FISH panel: Trisomy 15, trisomy 11 Cytogenetics: 46, XX LDH: 175 ISS stage: ISS Stage II Monoclonal proteins at diagnosis: Serum M-spike: 1.19 gm/dL, Involved serum free light chains: 35.2mg/L, and Uninvolved serum free light chains: 10.4 mg/L Total immunoglobulins at diagnosis: IgG = 1980 mg/dl, IgA = 58 mg/dl, IgM = 38 mg/dl Bone marrow plasma cell infiltration: 10-15% plasma cells in the marrow Systemic treatment and disease course Start 02/23/2023-current Daratumumab, lenalidomide (per AGNES) - Myeloma response according to: International uniform response criteria, Durie et al. Leukemia 20:1467-73, 2006 and Moraie et al. ERRATUM in Leukemia 21:1134, 2007. Update in Debra SV et al. Blood 117: 5848-6900, 2011 Local treatments (radiation, surgery, kyphoplasty) 03/02/2023 to 03/08/2023 The Left clavicle received a total dose of 2000 cGy in 5 fractions at 400 cGy/fraction using 6 MV photons with Wedged Pair technique. History of present illness Mrs. Dickinson is an 87-year-old female with past medical history that includes hypothyroidism, GERD, hyperlipidemia, prediabetes, and possible coronary artery disease who was initially evaluated for left mid clavicular pain and swelling at an urgent care facility on 12/26/2022. A 2 view x-ray of the clavicle obtained on that occasion did not reveal evidence of an osseous abnormality. Of note, the tk bell did not experience antecedent trauma to the clavicle prior to that visit. He was initiated onMedrol Dosepak at the time of discharge. Follow-up MRI of the clavicle on 12/29/2022 demonstrated mild expansion and irregular cortical bone in the medial left clavicle. A bone scintigraphy study on 01/05/2023 demonstrated increased uptake in the left sternoclavicular joint medial clavicle, and a CT of the left clavicle and shoulder on 01/11/2023 demonstrated a permeative lytic lesion with a pathologic fracture of the left medial clavicle. The patient was evaluated in our orthopedic oncology clinic on 01/17/2023. CT scans of the chest abdomen and pelvis did not demonstrate any other evidence of overt osseous disease but did demonstrate hepatic hypodensities for which an MRI of the liver was suggested. An image guided biopsy left clavicle was performed demonstrated sheets of plasma cells. Currently paraprotein work-up prior to the current visit is a serum protein electrophoresis demonstrating a monoclonal spike of 1.19 mg/dL and a spot urine protein electrophoresis that does demonstrate a monoclonal paraprotein. The patient has no evidence of underlying bone marrow involvement in terms of her CBC which is entirely normal. Thereis no evidence of renal dysfunction or hypercalcemia. She denies a personal history of other pathologic fractures. She denies recent fevers, chills, night sweats, nausea, vomiting, diarrhea, voice changes, new rash, or weight loss. She has no personal history of malignancy and no strong family history of thrombophilia, bleeding diathesis, or hematologic cancer. Interim Updates: 03/31/2023: The returns evaluation management of symptomatic myeloma. She denies fevers, chills, night sweat nausea, vomiting, diarrhea, and peripheral neuropathy. She continues on aspirin and acyclovir. Pleated radiation therapy to the left clavicle with no residual pain at the site of the previous fracture. Her paraprotein labs demonstrate normalization of her involved serum free light chain and a decrease in her intact monoclonal paraprotein by approximately 50%. There is no evidence of renal dysfunction or hypercalcemia. Whole body low dose CT scan (see below) demonstrates 1/9 rib lytic lesion in addition to the known clavicular lesion. 05/05/2023: Mrs Dickinson is seen for a scheduled follow up visit. She is accompanied by her . Overall, she reports feeling well. Per her account, she has no pain in the area of her L clavicle.Reports two episodes of mild epistaxis over past month. States she has seen ENT in [place] and was told the recurrent nose bleeds were due to the anatomy of the Right side of her nose. Per patient, she is occasionally constipated and eating prunes usually relieves the constipation. Confirms compliance with Revlimid dosing and schedule. 05/31/23: Mrs. Dickinson is seen for a scheduled follow up visit, accompanied by her . She reports overall feeling well. She woke up this morning with a bruise just to the right of the sternoclavicular junction. She denies fevers, chills, night sweats, nausea, vomiting and diarrhea. She deniesnew rashes. Her paraprotein labs from last visit demonstrate a preserved free light chain ratio fabiola fluctuating intact monoclonal paraprotein by protein electrophoresis. 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 Her IgG level has normalized. She has very mild leukopenia and thrombocytopenia. There is no evidence of worsening anemia. There is no evidence of hypercalcemia. Continues on aspirin for thromboprophylaxis and acyclovir for VZV prophylaxis. Performance status is unchanged with the initiation of therapy she notes she is able to complete all of her ADLs and IADLs independently. 07/14/23: Constipation, the patient denies fevers, chills, night sweats, nausea, vomiting, diarrhea, and significant weight changes. 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 Serologically, her immunofixation demonstrates what is likely the presence of daratumumab. Her light chains remain within normal range with a normalized ratio. Her low level intact monoclonal paraprotein may represent daratumumab. She continues to take aspirin and acyclovir as directed. She complains of no new areas of bony pain. 12/01/23: At the present visit, patient denies fevers, chills, night, nausea, vomiting, diarrhea, significantly. She estimates that she wakes at 5 AM every day and is able to work for several hours before becoming tired in the early afternoon. She has not noticed any lymphadenopathy. She has not noticed any early satiety. Paraprotein labs indicate a complete remission. She remains on lenalidomide 10 mg daily day 1 through 21 of a 28-day cycle and monthly daratumumab. We have taken dexamethasone out of her treatment plan. She also receives monthly zoledronic acid. There is no evidence of renal dysfunction, hypercalcemia, or new onset cytopenias. 12/29/23: pt called in last week for brb from rectum. Has known hemorrhoids. Issue subsided without additional interventions. H/h stable. Denies other symptoms. 01/26/24: Mrs. Dickinson returns for follow up. Continues to tolerate treatment well. She tells me sheis recommended to have a dental procedure where they will take some tissue from her upper gum and put it into an implant on her lower jaw. She said her dentist wanted clearance from Dr. Beatty and will be sending the information to him to review. She wont be scheduled until she has an ok from our team. I advised her this will need to be reviewed once we have the details of what they are planning. In prep for this we will hold zometa until we know definitely if she will have this done or not. Started revlimid 01/15. 02/21/24: The patient here for follows up and tolerating the treatment well. Her lab workup from 02/19/24 shows an atypical region of restricted mobility on SPEP and no M protein on immunofixation. K/Lratio is also normal. IgG is 630 as well. CBC still shows mild pancytopenia. She denies recent fevers, chills, night sweats, nausea, vomiting, diarrhea, voice changes, new rash, or weight loss. She has an implant of the tooth planned for April 03 2024. Was counseled on keeping an eye out on the fatigue 06/14/24: In the interim since her last visit, the patient continued to receive daratumumab based maintenance. Today is C18D1. Most recent paraprotein labs reveal what is likely a negative immunofixation, completely normal serum free light chains, immune paresis, and essentially normal hemoglobin, and persistent but stable thrombocytopenia and lymphopenia. Review of systems General: No fever , No chills, and No night sweats HEENT: No lumps, no difficulty chewing or swallowing, no enlarging tongue, no tooth aches. Musculoskeletal: no current pain Hematological: No bleeding or easy bruising. Lymphatic / Immune system: No lymph node enlargement or infection. Cardiovascular: No orthopnea, no dyspnea, no chest pain, no leg edema, no palpitations. Pulmonary: No dyspnea, no wheezing, no cough. Gastrointestinal: see HPI. No nausea, vomitting, diarrhea, constipation, abdominal pain, or blood in stool. 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[employer]a () Medicare annual wellness visit, subsequent 08/17/2020 Medical B eligibilty date 11/21/2002 Last done: 02/11/2020 Mixed hyperglyceridemia 03/29/2019 Multiple myeloma (HCC) 02/13/2023 Osteopenia of spine 03/29/2019 PAST SURGICAL HISTORY Procedure Laterality Date CATARACT EXTRACTION HX Bilateral 2017 COLONOSCOPY 10/25/2021 repeat only if needed HYSTERECTOMY partial - age 40 MASTECTOMY, SIMPLE, COMPLETE Bilateral 1977 with implants for fibrocystic disease (?) NUCLEAR STRESS TEST (WT<440#) (UNION) 08/09/2013 old records: negative PAST SURGICAL HISTORY OF 1995 breast implants Allergies / intolerances ALLERGIES Allergen Reactions Sulfa (Sulfonamide * Swelling Adhesive Tape-Silic* Rash Medications REVLIMID 10 mg capsule Take 1 capsule (10 MG) by mouth daily at bedtime for 21 days on and 7 days off. levothyroxine (SYNTHROID) 50 mcg tablet Take 1 tablet by mouth once daily. Take on empty stomach. For Thyroid. omeprazole (PRILOSEC) 40 mg capsule Take 1 capsule by mouth daily before breakfast. 1/2 hr before meal. acyclovir (ZOVIRAX) 400 mg tablet Take 1 tablet by mouth once daily. pravastatin (PRAVACHOL) 80 mg tablet Take 1 tablet by mouth once daily. ondansetron (ZOFRAN) 8 mg tablet Take 1 tablet by mouth once daily as needed for nausea/vomiting. cyanocobalamin (VITAMIN B-12) 500 mcg tablet Take 1 tablet by mouth once daily. FERROUS SULFATE ORAL Take 1 tablet by mouth. aspirin, enteric coated (ASPIRIN, ENTERIC COATED) 81 mg EC tablet Take 81 mg by mouth. omega-3 acid ethyl esters (LOVAZA) 1 gram capsule Take 1 g by mouth. calcium carbonate-vitamin D3 (CALTRATE WITH VITAMIN D3) 600 mg(1,500mg) -800 unit tab Take 1 tabletby mouth twice daily. Social History Tobacco Use Smoking status: Never Smokeless tobacco: Never Vaping Use Vaping status: Never Used Substance Use Topics Alcohol use: Not Currently Drug use: Not Currently FAMILY HISTORY Problem Relation Age of Onset Heart Failure Mother Diabetes Sister Hyperlipidemia Sister Thyroid Sister Breast Cancer Maternal Grandmother Diabetes Daughter Hyperlipidemia Sister Alzheimer's Disease No Family History Colon Cancer No Family History Prostate Cancer No Family History Ovarian cancer No Family History Uterine Cancer No Family History Coronary Artery Disease No Family History Hypertension No Family History Kidney Disease No Family History Seizures No Family History Stroke No Family History Physical examination There were no vitals taken for this visit. ECOG PS: 1- Restricted in physically strenuous activity. Carries out light duty. General appearance: Well appearing, alert, in no acute distress, well-hydrated, well nourished. HEENT: No lumps, no macroglossia, no icterus. Mucous membranes pink. Neck: Supple, no adenopathy Lungs: even chest rise and fall. Extremities: No deformities, edema. Laboratory tests WBC (k/uL) Date Value 06/11/2024 3.46 05/14/2024 3.45 04/15/2024 3.74 03/22/2024 4.09 02/19/2024 3.49 01/23/2024 3.13 12/26/2023 2.98 11/28/2023 3.21 10/31/2023 3.27 10/05/2023 3.75 09/06/2021 6.85 03/15/2021 7.83 02/04/2021 6.15 01/31/2020 5.74 Abs Neut (ANC) (k/uL) Date Value 09/06/2021 4.61 03/15/2021 5.08 02/04/2021 3.89 01/31/2020 3.68 Abs Neut (k/uL) Date Value 06/11/2024 2.20 05/14/2024 2.18 04/15/2024 2.79 03/22/2024 2.84 02/19/2024 2.42 01/23/2024 2.19 12/26/2023 2.00 11/28/2023 2.10 10/31/2023 2.08 10/05/2023 2.65 Hemoglobin (g/dL) Date Value 06/11/2024 11.7 05/14/2024 11.3 04/15/2024 11.8 03/22/2024 11.4 02/19/2024 11.0 01/23/2024 11.3 12/26/2023 11.3 11/28/2023 11.9 10/31/2023 12.4 10/05/2023 11.9 09/06/2021 14.0 03/15/2021 14.0 02/04/2021 13.3 01/31/2020 13.3 Platelet Count (k/uL) Date Value 06/11/2024 86 05/14/2024 92 04/15/2024 107 03/22/2024 98 02/19/2024 115 01/23/2024 100 12/26/2023 91 11/28/2023 99 10/31/2023 93 10/05/2023 91 09/06/2021 157 03/15/2021 173 02/04/2021 148 01/31/2020 168 Glucose (mg/dL) Date Value 06/11/2024 107 05/14/2024 104 04/15/2024 112 03/19/2024 96 02/19/2024 121 01/23/2024 89 12/26/2023 104 11/28/2023 113 10/31/2023 115 10/05/2023 134 02/04/2021 98 01/31/2020 90 Creatinine (mg/dL) Date Value 06/11/2024 1.00 05/14/2024 0.85 04/15/2024 0.91 03/19/2024 0.93 02/19/2024 0.94 01/23/2024 0.93 12/26/2023 0.99 11/28/2023 0.96 10/31/2023 0.83 10/05/2023 0.85 02/04/2021 0.72 01/31/2020 0.70 Calcium (mg/dL) Date Value 02/04/2021 9.1 01/31/2020 9.5 Calcium, Total (mg/dL) Date Value 06/11/2024 9.1 05/14/2024 8.8 04/15/2024 9.1 03/19/2024 9.3 02/19/2024 8.2 01/23/2024 8.5 12/26/2023 9.0 11/28/2023 9.5 10/31/2023 10.1 10/05/2023 8.8 M-Protein Concentration (g/dL) Date Value 06/11/2024 0.00 05/14/2024 0.00 04/15/2024 0.00 03/19/2024 0.00 02/19/2024 0.00 01/23/2024 0.16 11/28/2023 0.15 10/31/2023 0.17 10/05/2023 0.19 09/06/2023 0.24 08/09/2023 0.29 07/13/2023 0.31 06/29/2023 0.33 06/14/2023 0.40 05/30/2023 0.39 05/18/2023 0.46 05/04/2023 0.06 04/20/2023 0.13 04/06/2023 0.58 03/29/2023 0.11 03/02/2023 1.20 02/22/2023 1.35 02/15/2023 1.39 01/17/2023 1.19 [place] Free, Serum Date Value 06/11/2024 15.0 mg/L 05/14/2024 17.0 mg/L 04/15/2024 13.3 mg/L 03/19/2024 17.1 mg/L 02/19/2024 16.0 mg/L 01/23/2024 16.7 mg/L 11/28/2023 17.3 mg/L 10/31/2023 15.6 mg/L 10/05/2023 16.2 mg/L 09/06/2023 15.5 mg/L 08/09/2023 16.0 mg/L 07/13/2023 Comment: Unable to assay. Specimen hemolyzed. Rarely, increased serum free light chains levels may not be detected or accurately quantified due to prozone phenomenon or in high viscosity samples using this immunoturbidimetric assay. Correlation with other laboratory results and clinical findings is recommended. The [place] Free Light Chain was performed using the Binding Site Optilite immunoturbidimetric method. Result obtained with different assay methods or kits cannot be used interchangeably. 06/29/2023 21.2 mg/L 06/14/2023 18.6 mg/L 05/30/2023 21.7 mg/L 05/18/2023 20.8 mg/L 05/04/2023 20.8 mg/L 04/20/2023 17.7 mg/L 04/06/2023 21.9 mg/L 03/29/2023 21.4 mg/L 03/02/2023 21.3 mg/L 02/22/2023 30.5 mg/L 02/15/2023 35.2 mg/L L[place] Free, Serum (mg/L) Date Value 06/11/2024 16.3 05/14/2024 17.1 04/15/2024 14.2 03/19/2024 18.2 02/19/2024 19.4 01/23/2024 18.4 11/28/2023 16.8 10/31/2023 15.8 10/05/2023 14.7 09/06/2023 13.9 08/09/2023 13.0 07/13/2023 10.4 06/29/2023 11.5 06/14/2023 9.5 05/30/2023 10.4 05/18/2023 10.1 05/04/2023 10.4 04/20/2023 6.6 04/06/2023 13.0 03/29/2023 13.0 03/02/2023 4.6 02/22/2023 11.1 02/15/2023 10.4 Interpretation (MPA) (no units) Date Value 06/11/2024 Poorly defined region of restricted mobility in the lambda alejandro. Pattern is less well defined or fainter than typically seen in monoclonal gammopathy. This could represent either an atypical presentation of polyclonal immunoglobulins or the presence of a low level lambda containing monoclonal gammopathy. If clinically indicated, urine monoclonal protein analysis and serum free light chain measurem ents are recommended to evaluate further for monoclonal gammopathy. Clinical correlation is necessary. 04/15/2024 There is a faint band in the IgG and kappa lanes. The patient is receiving a therapeutic monoclonalantibody, for which the electrophoretic properties have not been well-defined. Cannot exclude the possibility that this band represents a therapeutic monoclonal antibody rather than an IgG kappa paraprotein. Recommend correlation with serum free light chain and urine monoclonal protein analysis. 01/23/2024 There is an atypical restricted band present in the IgG and kappa regions. The location of the IgG kappa band suggests the presence of daratumumab, although one cannot rule out the possibility that this band represents a disease-related monoclonal protein. If clinically required, specific testing for daratumumab may be ordered to confirm the presence of the drug in this patient. 11/28/2023 There are two atypical restricted bands present in the IgG and kappa regions. The location of the IgG kappa band suggests the presence of daratamumab. However the second band has a different migration pattern and is unlikely to represent daratumumab. Poorly defined region of restricted mobility in the lambda alejandro. Pattern is less well defined or fainter than typically seen in monoclonal gammopathy. This could represent either an atypical presentation of polyclonal immunoglobulins or the presence of a low level lambda containing monoclonal gammopathy. 10/31/2023 There are two atypical restricted bands present in the IgG and kappa regions. The location of the IgG kappa band suggests the presence of daratamumab. However the second band has a different migration pattern and is unlikely to represent daratumumab. Imaging - MRI 12/29/2022: demonstrating mild expansion and irregular cortical bone in medial left clavicle. - Bone scintography 01/05/2023: increased uptake in left sternoclavicular joint, and medial clavicle. - CT left clavicle/shoulder 01/11/2023: permeative lytic lesion with pathological fracture of left medial clavicle. Low-dose CT scan of the whole body (02/22/2023) 1. Stable expansile, lytic bone lesion with associated cortical destruction involving the medial left clavicle, corresponding with the site of recent biopsy. 2. There is a lytic lesion involving the posterior right ninth rib at the costovertebral joint with disruption of the posterior cortex. 3. No other lytic bone lesions identified. 4. 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 Correlation with prior outside studies, if available, would be helpful. This could be further evaluated with dedicated head CT. 5. Additional findings as above which are stable from the recent chest and abdominopelvic CT exams. Pathology: Image guided biopsy of the mid left clavicle (01/30/2023) FINAL DIAGNOSIS A. Lesion, left clavicular head, biopsy: - Plasma cell neoplasm (kappa). - See comment. CV/mm/02/01/2023 Diagnosis Comment Histologic sections show fragments of blood clot associated with clusters of plasma cells. The plasma cells are intermediate sized, with abundant cytoplasm and round, eccentric nuclei with mature chromatin. Immunohistochemical stains have been performed with appropriately staining controls. The plasma cells are positive for CD138. On the stains for kappa or lambda they appear monotypic kappa. 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 Further classification of this process requires correlation with clinical, radiologic, and laboratory findings. Impression and Plan Cancer Staging No matching staging information was found for the patient. #multiple myeloma Cytogenetic risk category: Standard risk Frailty Score: 0 IMWG Response Criteria: Renal: Normal creatinine, clinically no evidence for renal dysfunction. Infectious diseases: No current infection, no need for prophylaxis Musculoskeletal: Chronic pain, satisfactorily controlled. Bone modifying therapy: zometa Venous thromboembolism risk: No need for DVT prophylaxis control counseling: Does not apply since patient is naturally postmenopausal for greater than24 months or post hysterectomy or post bilateral oophorectomy Neurology: No neurologic symptoms Health maintenance discussed: Regular exercise and Appropriate diet Side effects from current medications: None Mrs. Dickinson is an 88-year-old female with excellent performance status who was recently diagnosedwith a fracture of the left mid clavicle without evidence of trauma to the site. An image guided biopsy revealed plasma cell involvement and a initial protein electrophoresis demonstrated a monoclonal paraprotein 1.19 mg/dL. Cross-sectional imaging revealed no evidence of additional osseous disease. She continues on the AGNES regimen with excellent tolerance of treatment and performance status. Her intact monoclonal paraprotein has fluctuated; however, this is in the context of daratumumab treatment and an underlying CD5+ B-cell clone. Her total IgG level has normalized and there are no other i ndications of symptomatic or biochemical progression. Overall, she is likely at least achieved a VGPR and probably a CR. I am attributing her positive immunofixation to recent infection as showing lambda and may be polyclonal immunoglobulins. Her performance status remains excellent. We will continue aspirin, acyclovir, and bone stabilizing therapy. Plan Summary: -Continue daratumumab monthly and lenalidomide (dexamethasone dropped based on Agnes protocol) with lenalidomide 10 mg day 1 through 21 of a 28-day cycle for now -No further dexamethasone with treatment -started bone stabilizing therapy with zometa today -Continue acyclovir and aspirin -RTC in 8 weeks Jaime Beatty MD Medical Decision Making: Problems: High: Illness/injury w/ threat to life/body function Data: Unique test result(s) reviewed: 3+ Unique test(s) ordered: 3+ Risk: High: High risk from testing/treatment Medical Decision Making Level: 5 - High [facility]* Jody Armstrong RN - 06/14/2024 2:16 PM EST Reviewed and confirmed with patient that there were no changes in the the nursing assessment and vitals that were completed on 06/14/2024 during previous provider appointment. Jody Armstrong RN [facility] Nurse Note* Jody Armstrong RN - 06/14/2024 2:16 PM EST Reviewed and confirmed with patient that there were no changes in the the nursing assessment and vitals that were completed on 06/14/2024 during previous provider appointment. Jody Armstrong RN documented in [facility] encounterMag[facility]11-[facility]24 History of Present illness Narrative* Alvin Balderas APRN.ROSE MARIE - 05/27/2024 12:09 PM EST Images from the original note were not included. (Elements copied from my note dated 04/19/24, have been reviewed and updated where appropriate, and all reflect current assessment and medical decision making during today's encounter, 05/17/2024) [facility] Plasma Cell Disorder [facility] Reason for visit: follow up myeloma. Baseline assessment on initial diagnosis date 2022 Cancer Staging No matching staging information was found for the patient. Symptomatic multiple myeloma, I Related Organ or Tissue Involvement (CRAB) or other Myeloma Defining Event (MDE): Bone disease: At least one lytic bone lesion on XR or CT if BMPC >=10%, at least 2 bone lesions on XR or CT if BMPC<10%, location of lytic lesion(s): Left clavicular head Antecedent plasma cell dyscrasia: No Myeloma FISH panel: Trisomy 15, trisomy 11 Cytogenetics: 46, XX LDH: 175 ISS stage: ISS Stage II Monoclonal proteins at diagnosis: Serum M-spike: 1.19 gm/dL, Involved serum free light chains: 35.2mg/L, and Uninvolved serum free light chains: 10.4 mg/L Total immunoglobulins at diagnosis: IgG = 1980 mg/dl, IgA = 58 mg/dl, IgM = 38 mg/dl Bone marrow plasma cell infiltration: 10-15% plasma cells in the marrow Systemic treatment and disease course - Myeloma response according to: International uniform response criteria, Durie et al. Leukemia 20:1467-73, 2006 and Durie et al. ERRATUM in Leukemia 21:1134, 2007. Update in Debra SV et al. Blood 117: 7242-1747, 2011 Local treatments (radiation, surgery, kyphoplasty) 03/02/2023 to 03/08/2023 The Left clavicle received a total dose of 2000 cGy in 5 fractions at 400 cGy/fraction using 6 MV photons with Wedged Pair technique. History of present illness Mrs. Dickinson is an 87-year-old female with past medical history that includes hypothyroidism, GERD, hyperlipidemia, prediabetes, and possible coronary artery disease who was initially evaluated for left mid clavicular pain and swelling at an urgent care facility on 12/26/2022. A 2 view x-ray of the clavicle obtained on that occasion did not reveal evidence of an osseous abnormality. Of note, the pa tient did not experience antecedent trauma to the clavicle prior to that visit. He was initiated onMedrol Dosepak at the time of discharge. Follow-up MRI of the clavicle on 12/29/2022 demonstrated mild expansion and irregular cortical bone in the medial left clavicle. A bone scintigraphy study on 01/05/2023 demonstrated increased uptake in the left sternoclavicular joint medial clavicle, and a CT of the left clavicle and shoulder on 01/11/2023 demonstrated a permeative lytic lesion with a pathologic fracture of the left medial clavicle. The patient was evaluated in our orthopedic oncology clinic on 01/17/2023. CT scans of the chest abdomen and pelvis did not demonstrate any other evidence of overt osseous disease but did demonstrate hepatic hypodensities for which an MRI of the liver was suggested. An image guided biopsy left clavicle was performed demonstrated sheets of plasma cells. Currently paraprotein work-up prior to the current visit is a serum protein electrophoresis demonstrating a monoclonal spike of 1.19 mg/dL and a spot urine protein electrophoresis that does demonstrate a monoclonal paraprotein. The patient has no evidence of underlying bone marrow involvement in terms of her CBC which is entirely normal. Thereis no evidence of renal dysfunction or hypercalcemia. She denies a personal history of other pathologic fractures. She denies recent fevers, chills, night sweats, nausea, vomiting, diarrhea, voice changes, new rash, or weight loss. She has no personal history of malignancy and no strong family history of thrombophilia, bleeding diathesis, or hematologic cancer. Interim Updates: 03/31/2023: The returns evaluation management of symptomatic myeloma. She denies fevers, chills, night sweat nausea, vomiting, diarrhea, and peripheral neuropathy. She continues on aspirin and acyclovir. Pleated radiation therapy to the left clavicle with no residual pain at the site of the previous fracture. Her paraprotein labs demonstrate normalization of her involved serum free light chain and a decrease in her intact monoclonal paraprotein by approximately 50%. There is no evidence of renal dysfunction or hypercalcemia. Whole body low dose CT scan (see below) demonstrates 1/9 rib lytic lesion in addition to the known clavicular lesion. 05/05/2023: Mrs Dickinson is seen for a scheduled follow up visit. She is accompanied by her . Overall, she reports feeling well. Per her account, she has no pain in the area of her L clavicle.Reports two episodes of mild epistaxis over past month. States she has seen ENT in [place] and was told the recurrent nose bleeds were due to the anatomy of the Right side of her nose. Per patient, she is occasionally constipated and eating prunes usually relieves the constipation. Confirms compliance with Revlimid dosing and schedule. 05/31/23: Mrs. Dickinson is seen for a scheduled follow up visit, accompanied by her . She reports overall feeling well. She woke up this morning with a bruise just to the right of the sternoclavicular junction. She denies fevers, chills, night sweats, nausea, vomiting and diarrhea. She deniesnew rashes. Her paraprotein labs from last visit demonstrate a preserved free light chain ratio fabiola fluctuating intact monoclonal paraprotein by protein electrophoresis. 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 Her IgG level has normalized. She has very mild leukopenia and thrombocytopenia. There is no evidence of worsening anemia. There is no evidence of hypercalcemia. Continues on aspirin for thromboprophylaxis and acyclovir for VZV prophylaxis. Performance status is unchanged with the initiation of therapy she notes she is able to complete all of her ADLs and IADLs independently. 07/14/23: Constipation, the patient denies fevers, chills, night sweats, nausea, vomiting, diarrhea, and significant weight changes. 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 Serologically, her immunofixation demonstrates what is likely the presence of daratumumab. Her light chains remain within normal range with a normalized ratio. Her low level intact monoclonal paraprotein may represent daratumumab. She continues to take aspirin and acyclovir as directed. She complains of no new areas of bony pain. 12/01/23: At the present visit, patient denies fevers, chills, night, nausea, vomiting, diarrhea, significantly. She estimates that she wakes at 5 AM every day and is able to work for several hours before becoming tired in the early afternoon. She has not noticed any lymphadenopathy. She has not noticed any early satiety. Paraprotein labs indicate a complete remission. She remains on lenalidomide 10 mg daily day 1 through 21 of a 28-day cycle and monthly daratumumab. We have taken dexamethasone out of her treatment plan. She also receives monthly zoledronic acid. There is no evidence of renal dysfunction, hypercalcemia, or new onset cytopenias. 12/29/23: pt called in last week for brb from rectum. Has known hemorrhoids. Issue subsided without additional interventions. H/h stable. Denies other symptoms. 01/26/24: Mrs. Dickinson returns for follow up. Continues to tolerate treatment well. She tells me sheis recommended to have a dental procedure where they will take some tissue from her upper gum and put it into an implant on her lower jaw. She said her dentist wanted clearance from Dr. Beatty and will be sending the information to him to review. She wont be scheduled until she has an ok from our team. I advised her this will need to be reviewed once we have the details of what they are planning. In prep for this we will hold zometa until we know definitely if she will have this done or not. Started revlimid 01/15. 02/21/24: The patient here for follows up and tolerating the treatment well. Her lab workup from 02/19/24 shows an atypical region of restricted mobility on SPEP and no M protein on immunofixation. K/Lratio is also normal. IgG is 630 as well. CBC still shows mild pancytopenia. She denies recent fevers, chills, night sweats, nausea, vomiting, diarrhea, voice changes, new rash, or weight loss. She has an implant of the tooth planned for April 03 2024. Was counseled on keeping an eye out on the fatigue 03/22/24: has dental work scheduled for 04/03. Otherwise feels well. 04/19/24: 04/03 had dental procedure right lower jaw as scheduled. Was on antibiotic and methylpred. Can remember the name of the antibiotic. From recent note looks like amoxicillin. She had facial flush should moved down to neck area, denies any other contributing symptoms. Was seen by Dentist and both meds were stopped. Restarted her revlimid and asa once off the antibiotic. Has about 9 pills left. Feels well. 05/17/24: Feels area of dental procedure is healing well. No swelling or pain. Due to see dental team soon. Had COVID earlier in the month, received paxlovid. Tolerated find. Feels recovered. Denies residual symptoms. Feels up for treatment today. Review of systems General: No fever , No chills, and No night sweats HEENT: No lumps, no difficulty chewing or swallowing, no enlarging tongue, no tooth aches. Musculoskeletal: no current pain Hematological: No bleeding or easy bruising. Lymphatic / Immune system: No lymph node enlargement or infection. Cardiovascular: No orthopnea, no dyspnea, no chest pain, no leg edema, no palpitations. Pulmonary: No dyspnea, no wheezing, no cough. Gastrointestinal: see HPI. No nausea, vomitting, diarrhea, constipation, abdominal pain, or blood in stool. PAST MEDICAL HISTORY Diagnosis Date Advance directive discussed with patient 02/25/2022 Discussed 02/2022 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 rich plaque 03/31/2019 Current use of proton pump inhibitor 07/30/2019 Elevated fasting blood sugar 03/29/2019 GERD without esophagitis 03/29/2019 High cholesterol History of 2019 novel coronavirus disease (COVID-19) 09/07/202202/2022 History of squamous cell carcinoma of skin 03/31/2019 Right side of nose Hypothyroidism, acquired 03/29/[address] 02/25/2022 DPA: Micaela () Medicare annual wellness visit, subsequent 08/17/2020 Medical B eligibilty date 11/21/2002 Last done: 02/11/2020 Mixed hyperglyceridemia 03/29/2019 Multiple myeloma (HCC) 02/13/2023 Osteopenia of spine 03/29/2019 PAST SURGICAL HISTORY Procedure Laterality Date CATARACT EXTRACTION HX Bilateral 2017 COLONOSCOPY 10/25/2021 repeat only if needed HYSTERECTOMY partial - age 40 MASTECTOMY, SIMPLE, COMPLETE Bilateral 1977 with implants for fibrocystic disease (?) NUCLEAR STRESS TEST (WT<440#) (UNION) 08/09/2013 old records: negative PAST SURGICAL HISTORY OF 1995 breast implants Allergies / intolerances ALLERGIES Allergen Reactions Sulfa (Sulfonamide * Swelling Adhesive Tape-Silic* Rash Medications REVLIMID 10 mg capsule Take 1 capsule (10 MG) by mouth daily at bedtime for 21 days on and 7 days off. levothyroxine (SYNTHROID) 50 mcg tablet Take 1 tablet by mouth once daily. Take on empty stomach. For Thyroid. omeprazole (PRILOSEC) 40 mg capsule Take 1 capsule by mouth daily before breakfast. 1/2 hr before meal. acyclovir (ZOVIRAX) 400 mg tablet Take 1 tablet by mouth once daily. pravastatin (PRAVACHOL) 80 mg tablet Take 1 tablet by mouth once daily. ondansetron (ZOFRAN) 8 mg tablet Take 1 tablet by mouth once daily as needed for nausea/vomiting. cyanocobalamin (VITAMIN B-12) 500 mcg tablet Take 1 tablet by mouth once daily. FERROUS SULFATE ORAL Take 1 tablet by mouth. aspirin, enteric coated (ASPIRIN, ENTERIC COATED) 81 mg EC tablet Take 81 mg by mouth. omega-3 acid ethyl esters (LOVAZA) 1 gram capsule Take 1 g by mouth. calcium carbonate-vitamin D3 (CALTRATE WITH VITAMIN D3) 600 mg(1,500mg) -800 unit tab Take 1 tabletby mouth twice daily. Social History Tobacco Use Smoking status: Never Smokeless tobacco: Never Vaping Use Vaping status: Never Used Substance Use Topics Alcohol use: Not Currently Drug use: Not Currently FAMILY HISTORY Problem Relation Age of Onset Heart Failure Mother Diabetes Sister Hyperlipidemia Sister Thyroid Sister Breast Cancer Maternal Grandmother Diabetes Daughter Hyperlipidemia Sister Alzheimer's Disease No Family History Colon Cancer No Family History Prostate Cancer No Family History Ovarian cancer No Family History Uterine Cancer No Family History Coronary Artery Disease No Family History Hypertension No Family History Kidney Disease No Family History Seizures No Family History Stroke No Family History Physical examination 05/17/2024 10:40 AM Vitals SITTING SYSTOLIC 149 SITTING DIASTOLIC 55 Pulse 65 Temp 37.1 C (98.7 F) Resp 16 SITTING BP 149/55 PULSE OX 98 % BMI ECOG PS: 1- Restricted in physically strenuous activity. Carries out light duty. General appearance: Well appearing, alert, in no acute distress, well-hydrated, well nourished. HEENT: No lumps, no macroglossia, no icterus. Mucous membranes pink. Neck: Supple, no adenopathy Lungs: CTA Heart: rrr Extremities: No deformities, edema. Laboratory tests WBC (k/uL) Date Value 05/14/2024 3.45 04/15/2024 3.74 03/22/2024 4.09 02/19/2024 3.49 01/23/2024 3.13 12/26/2023 2.98 11/28/2023 3.21 10/31/2023 3.27 10/05/2023 3.75 09/06/2023 4.65 09/06/2021 6.85 03/15/2021 7.83 02/04/2021 6.15 01/31/2020 5.74 Abs Neut (ANC) (k/uL) Date Value 09/06/2021 4.61 03/15/2021 5.08 02/04/2021 3.89 01/31/2020 3.68 Abs Neut (k/uL) Date Value 05/14/2024 2.18 04/15/2024 2.79 03/22/2024 2.84 02/19/2024 2.42 01/23/2024 2.19 12/26/2023 2.00 11/28/2023 2.10 10/31/2023 2.08 10/05/2023 2.65 09/06/2023 3.29 Hemoglobin (g/dL) Date Value 05/14/2024 11.3 04/15/2024 11.8 03/22/2024 11.4 02/19/2024 11.0 01/23/2024 11.3 12/26/2023 11.3 11/28/2023 11.9 10/31/2023 12.4 10/05/2023 11.9 09/06/2023 12.5 09/06/2021 14.0 03/15/2021 14.0 02/04/2021 13.3 01/31/2020 13.3 Platelet Count (k/uL) Date Value 05/14/2024 92 04/15/2024 107 03/22/2024 98 02/19/2024 115 01/23/2024 100 12/26/2023 91 11/28/2023 99 10/31/2023 93 10/05/2023 91 09/06/2023 105 09/06/2021 157 03/15/2021 173 02/04/2021 148 01/31/2020 168 Glucose (mg/dL) Date Value 05/14/2024 104 04/15/2024 112 03/19/2024 96 02/19/2024 121 01/23/2024 89 12/26/2023 104 11/28/2023 113 10/31/2023 115 10/05/2023 134 09/06/2023 105 02/04/2021 98 01/31/2020 90 Creatinine (mg/dL) Date Value 05/14/2024 0.85 04/15/2024 0.91 03/19/2024 0.93 02/19/2024 0.94 01/23/2024 0.93 12/26/2023 0.99 11/28/2023 0.96 10/31/2023 0.83 10/05/2023 0.85 09/06/2023 0.83 02/04/2021 0.72 01/31/2020 0.70 Calcium (mg/dL) Date Value 02/04/2021 9.1 01/31/2020 9.5 Calcium, Total (mg/dL) Date Value 05/14/2024 8.8 04/15/2024 9.1 03/19/2024 9.3 02/19/2024 8.2 01/23/2024 8.5 12/26/2023 9.0 11/28/2023 9.5 10/31/2023 10.1 10/05/2023 8.8 09/06/2023 9.4 M-Protein Concentration (g/dL) Date Value 05/14/2024 0.00 04/15/2024 0.00 03/19/2024 0.00 02/19/2024 0.00 01/23/2024 0.16 11/28/2023 0.15 10/31/2023 0.17 10/05/2023 0.19 09/06/2023 0.24 08/09/2023 0.29 07/13/2023 0.31 06/29/2023 0.33 06/14/2023 0.40 05/30/2023 0.39 05/18/2023 0.46 05/04/2023 0.06 04/20/2023 0.13 04/06/2023 0.58 03/29/2023 0.11 03/02/2023 1.20 02/22/2023 1.35 02/15/2023 1.39 01/17/2023 1.19 [place] Free, Serum Date Value 05/14/2024 17.0 mg/L 04/15/2024 13.3 mg/L 03/19/2024 17.1 mg/L 02/19/2024 16.0 mg/L 01/23/2024 16.7 mg/L 11/28/2023 17.3 mg/L 10/31/2023 15.6 mg/L 10/05/2023 16.2 mg/L 09/06/2023 15.5 mg/L 08/09/2023 16.0 mg/L 07/13/2023 Comment: Unable to assay. Specimen hemolyzed. Rarely, increased serum free light chains levels may not be detected or accurately quantified due to prozone phenomenon or in high viscosity samples using this immunoturbidimetric assay. Correlation with other laboratory results and clinical findings is recommended. The [place] Free Light Chain was performed using the Binding Site Optilite immunoturbidimetric method. Result obtained with different assay methods or kits cannot be used interchangeably. 06/29/2023 21.2 mg/L 06/14/2023 18.6 mg/L 05/30/2023 21.7 mg/L 05/18/2023 20.8 mg/L 05/04/2023 20.8 mg/L 04/20/2023 17.7 mg/L 04/06/2023 21.9 mg/L 03/29/2023 21.4 mg/L 03/02/2023 21.3 mg/L 02/22/2023 30.5 mg/L 02/15/2023 35.2 mg/L L[place] Free, Serum (mg/L) Date Value 05/14/2024 17.1 04/15/2024 14.2 03/19/2024 18.2 02/19/2024 19.4 01/23/2024 18.4 11/28/2023 16.8 10/31/2023 15.8 10/05/2023 14.7 09/06/2023 13.9 08/09/2023 13.0 07/13/2023 10.4 06/29/2023 11.5 06/14/2023 9.5 05/30/2023 10.4 05/18/2023 10.1 05/04/2023 10.4 04/20/2023 6.6 04/06/2023 13.0 03/29/2023 13.0 03/02/2023 4.6 02/22/2023 11.1 02/15/2023 10.4 Interpretation (MPA) (no units) Date Value 04/15/2024 There is a faint band in the IgG and kappa lanes. The patient is receiving a therapeutic monoclonalantibody, for which the electrophoretic properties have not been well-defined. Cannot exclude the possibility that this band represents a therapeutic monoclonal antibody rather than an IgG kappa paraprotein. Recommend correlation with serum free light chain and urine monoclonal protein analysis. 01/23/2024 There is an atypical restricted band present in the IgG and kappa regions. The location of the IgG kappa band suggests the presence of daratumumab, although one cannot rule out the possibility that this band represents a disease-related monoclonal protein. If clinically required, specific testing for daratumumab may be ordered to confirm the presence of the drug in this patient. 11/28/2023 There are two atypical restricted bands present in the IgG and kappa regions. The location of the IgG kappa band suggests the presence of daratamumab. However the second band has a different migration pattern and is unlikely to represent daratumumab. Poorly defined region of restricted mobility in the lambda alejandro. Pattern is less well defined or fainter than typically seen in monoclonal gammopathy. This could represent either an atypical presentation of polyclonal immunoglobulins or the presence of a low level lambda containing monoclonal gammopathy. 10/31/2023 There are two atypical restricted bands present in the IgG and kappa regions. The location of the IgG kappa band suggests the presence of daratamumab. However the second band has a different migration pattern and is unlikely to represent daratumumab. 10/05/2023 There is an atypical restricted band present in the IgG and kappa regions. The location of the IgG kappa band suggests the presence of daratumumab, although one cannot rule out the possibility that this band represents a disease-related monoclonal protein. If clinically required, specific testing for daratumumab may be ordered to confirm the presence of the drug in this patient. Poorly defined region of restricted mobility in IgG and kappa lanes. Pattern is less well defined or fainter than typically seen in monoclonal gammopathy. This could represent either an atypical presentation of polyclonal immunoglobulins or the presence of a low level IgG kappa monoclonal gammopathy. If clinically indicated, urine monoclonal protein analysis and serum free light chain measurements are recommended to evaluate further for monoclonal gammopathy. Clinical correlation is necessary. Imaging - MRI 12/29/2022: demonstrating mild expansion and irregular cortical bone in medial left clavicle. - Bone scintography 01/05/2023: increased uptake in left sternoclavicular joint, and medial clavicle. - CT left clavicle/shoulder 01/11/2023: permeative lytic lesion with pathological fracture of left medial clavicle. Low-dose CT scan of the whole body (02/22/2023) 1. Stable expansile, lytic bone lesion with associated cortical destruction involving the medial left clavicle, corresponding with the site of recent biopsy. 2. There is a lytic lesion involving the posterior right ninth rib at the costovertebral joint with disruption of the posterior cortex. 3. No other lytic bone lesions identified. 4. 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 Correlation with prior outside studies, if available, would be helpful. This could be further evaluated with dedicated head CT. 5. Additional findings as above which are stable from the recent chest and abdominopelvic CT exams. Pathology: Image guided biopsy of the mid left clavicle (01/30/2023) FINAL DIAGNOSIS A. Lesion, left clavicular head, biopsy: - Plasma cell neoplasm (kappa). - See comment. CVC/mm/02/01/2023 Diagnosis Comment Histologic sections show fragments of blood clot associated with clusters of plasma cells. The plasma cells are intermediate sized, with abundant cytoplasm and round, eccentric nuclei with mature chromatin. Immunohistochemical stains have been performed with appropriately staining controls. The plasma cells are positive for CD138. On the stains for kappa or lambda they appear monotypic kappa. 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 Further classification of this process requires correlation with clinical, radiologic, and laboratory findings. Impression and Plan Cancer Staging No matching staging information was found for the patient. #multiple myeloma Cytogenetic risk category: Standard risk Frailty Score: 0 IMWG Response Criteria: Renal: Normal creatinine, clinically no evidence for renal dysfunction. Infectious diseases: No current infection, no need for prophylaxis Musculoskeletal: Chronic pain, satisfactorily controlled. Bone modifying therapy: zometa Venous thromboembolism risk: No need for DVT prophylaxis control counseling: Does not apply since patient is naturally postmenopausal for greater than24 months or post hysterectomy or post bilateral oophorectomy Neurology: No neurologic symptoms Health maintenance discussed: Regular exercise and Appropriate diet Side effects from current medications: None Mrs. Dickinson is an 88-year-old female with excellent performance status who was recently diagnosedwith a fracture of the left mid clavicle without evidence of trauma to the site. An image guided biopsy revealed plasma cell involvement and a initial protein electrophoresis demonstrated a monoclonal paraprotein 1.19 mg/dL. Cross-sectional imaging revealed no evidence of additional osseous disease. She continues on the AGNES regimen with excellent tolerance of treatment and performance status. Her intact monoclonal paraprotein has fluctuated; however, this is in the context of daratumumab treatment and an underlying CD5+ B-cell clone. Her total IgG level has normalized and there are no other i ndications of symptomatic or biochemical progression. Overall, she is likely at least achieved a VGPR and probably a CR. I am attributing her positive immunofixation to the presence of daratumumab which on testing this time was negative. Her performance status remains excellent. We will continue aspirin, acyclovir, and bone stabilizing therapy. We will continue her treatment as planned with follow-up in 4 weeks. We will hold bone stabilizing therapy for the next 2 months due to impending dentalextractions. Following that, we will resume treatment once every 3 months. Plan Summary: -Continue daratumumab and lenalidomide (dexamethasone dropped based on Agnes protocol) with lenalidomide 10 mg day 1 through 21 of a 28-day cycle for now -No further dexamethasone with treatment -HOLD for now bone stabilizing therapy due to recent dental work on 04/03/24 -Continue acyclovir and aspirin -RTC in 4 weeks Medical Decision Making: Problems: Low: Stable chronic illness Data: Unique test result(s) reviewed: 3+ Risk: Moderate: Moderate risk from testing/treatment and Drug management Medical Decision Making Level: 4 - Moderate Alvin Balderas APRN.ROSE MARIE documented in this encounterMag[facility] Hospital10-31-2024 History of Present illness Narrative* Maureen Ariza, [facility] - 05/23/2024 10:33 AM EDT [facility] Refill Assessment Medication(s): Revlimid No new clinic notes to review since last SPP refill encounter. Labs from 05/14/24 reviewed. M protein remains low, but light chains have slightly increased. Will continue to monitor trends. Next OV scheduled 06/14/24. ALLERGIES Allergen Reactions Sulfa (Sulfonamide * Swelling Adhesive Tape-Silic* Rash Revlimid cycles (28DS: 21 on / 7 off) are as follows: C1D1 03/13/23 C16D1 05/02/24 - delayed d/t covid, approved by Tx team to resume C17D1 05/30/24 C18D1 06/27/24 REMS note: Pt's last survey was completed on 02/06/24. Next survey will be available on or after 07/16/24. Dispensing note: send dosing calendar with shipment. Patient's current medication list and adherence status to current therapy were reviewed by Specialty Pharmacy clinical pharmacist to identify any new drug interactions or non-compliance to therapy. Therapy continues to be appropriate for disease, patient response, and medical condition. Verification of therapeutic benefit and effectiveness with current therapy was completed. Adverse events, barriers in adherence, and side effects were assessed and addressed if applicable. Will proceed with refill with no changes in therapy - patient progressing towards achieving therapeutic goals based on medication- specific laboratory parameters, disease state markers and outcomes. Office/provider notes have been reviewed prior to dispensing the medication. Steam Finisher Assessment Patient confirmed: Yes Med/dose confirmed: Yes Supplies needed: No supplies needed Missed doses: No Estimated days supply on hand: 0 Next cycle/dose due: 05/30/24 Copay amount: 0 Payment confirmed: Yes Delivery method: FedEx Signature required: Required ([facility], Medicaid, patient preference) Delivery address: [address] [place] [id number] Delivery date: 05/27/24 Questions or concerns for the pharmacist?: Yes Patient questions/concerns: Other (see text box below) Other questions/concerns: last dose 05/22 Did you have any side effects believed to be related to this medication, that resulted in hospitalization?: No Current Outpatient Medications on File Prior to Visit Medication Sig REVLIMID 10 mg capsule Take 1 capsule (10 MG) by mouth daily at bedtime for 21 days on and 7 days off. levothyroxine (SYNTHROID) 50 mcg tablet Take 1 tablet by mouth once daily. Take on empty stomach. For Thyroid. omeprazole (PRILOSEC) 40 mg capsule Take 1 capsule by mouth daily before breakfast. 1/2 hr before meal. acyclovir (ZOVIRAX) 400 mg tablet Take 1 tablet by mouth once daily. pravastatin (PRAVACHOL) 80 mg tablet Take 1 tablet by mouth once daily. ondansetron (ZOFRAN) 8 mg tablet Take 1 tablet by mouth once daily as needed for nausea/vomiting. cyanocobalamin (VITAMIN B-12) 500 mcg tablet Take 1 tablet by mouth once daily. FERROUS SULFATE ORAL Take 1 tablet by mouth. aspirin, enteric coated (ASPIRIN, ENTERIC COATED) 81 mg EC tablet Take 81 mg by mouth. omega-3 acid ethyl esters (LOVAZA) 1 gram capsule Take 1 g by mouth. calcium carbonate-vitamin D3 (CALTRATE WITH VITAMIN D3) 600 mg(1,500mg) -800 unit tab Take 1 tabletby mouth twice daily. No current facility-administered medications on file prior to visit. [facility] SPECIALTY CLINICAL ASSESSMENT - HEMATOLOGY ONCOLOGY V6: Assessment to use: Refill Lab monitoring inclusive of CBC, Chem-7, and other labs as pertinent for therapy: Yes Chemo cycle timing assessment: Yes Assessment of injection issues: N/A Current medication list (including drug interaction assessment): Yes Experience of adverse reactions to the medication: Yes Date of influenza vaccination reminder: 04/01/2024 Date of most recent vaccination assessment: 04/01/2024 Treatment Plan Information: Diagnosis: Multiple myeloma - newly diagnosed Previous treatment(s): none, newly diagnosed Treatment plan: Revlimid (lenalidomide) + daratumumab + dexamethasone Starting Dose/Titration: Take 1 capsule (10mg) by mouth daily at bedtime for 21 days on, 7 days off. - Renal dose reduction required?: yes - CrCl 47mL/min, usual dose 25mg: PI recommends DR to 10mg daily, may increase to 15mg after 2 cycles if tolerating; dose reduced to 10 mg. Administration: - Take with or without food - Take at the same time each day with water; swallow whole Warnings: include but are not limited to - CONGRESSIONAL AIDE effects (dizziness, fatigue) - Tumor Flare, TLS - Venous and arterial thromboembolism (DVT, PE, TN, stroke) - BBW - Hematologic toxicity (neutropenia and thrombocytopenia) - BBW - Embryo- toxicity - BBW - No blood (or semen) donations during and 4 weeks post discontinuation Adverse reactions: include but are not limited to - Hepatotoxicity - Peripheral edema - Derm rxns (pruritis, skin rash, xeroderma) - Diarrhea > constipation; decrease appetite, abdominal pain - N/V (min to low) - BMS (neutropenia, thrombocytopenia, anemia) - Fatigue, asthenia, arthralgia, headache; back pain, muscle cramps/spasms Monitoring: - CBC with diff (MCL - weekly C1, Q2 weeks C2-4, then monthly; MDS - weekly x8 weeks, then at leastmonthly; MM - weekly x2 cycles; Q2 weeks C3, then monthly; Follicular and marginal zone lymphoma - weekly x3 weeks, Q2 weeks C2-4, then monthly) - sCr, LFTs (periodically) - TSH (baseline, then every 2-3 months) - ECG when clinically indicated - S/S infection, bruising, bleeding, hepatoxocity, 2ndry malignancy, thromboembolism, derm toxicity, TLS - test (for females of reproductive potential) - Hep B screening Drug-Drug Interactions: no interactions identified by Jennifer Baseline: - CBCD 02/22/23 - TSH 1.680 on 02/15/23 - CrCl 47mL/min on 02/22/23 - Hep B screening 02/23/23 Est. Tx Plan Start Date: No information available Estimated Start Date Info: Per Dr. Voss's discretion MDO to confirm DR for current CrCl - dose adjusted to 10 mg daily. Est. Estimated Treatment Duration: Continue until disease progression or unacceptable toxicity. Maureen Ariza, PatD Clinical Pharmacist, Oncology [facility] P: , F: Pool: P [facility] Pool #: [id number] * Maureen Ariza RPh - 05/23/2024 10:33 AM EDT [facility] RX SPECIALTY CLINICAL ASSESSMENT - CELGENE REMS HEADER Patient is not a female of reproductive potential Lenalidomide - Patient Not of Reproductive Potential V2 All boxes and spaces must be marked or filled in during counseling with the patient for every prescription. Maureen Ariza RPh 10:41 AM May 23, 2024 documented in this encounterMagruder Hospital10-28-2024 Telephone encounter Note * Telephone Encounter - Hilda Ching MA - 05/20/2024 10:39 AM EDT Prescription Refill Information The patient has been identified by name and date of : Yes Caregiver verified no other encounters exist for this prescription request: Yes Caregiver confirmed with patient/requestor that no other refills are due, in the near future, with this provider at this time: Yes The last office visit in the department: 02/2024 Does the patient have a future office visit with this provider/department: Yes 08/2024 Requested Prescriptions Pending Prescriptions Disp Refills levothyroxine (SYNTHROID) 50 mcg tablet 90 tablet 1 Sig: Take 1 tablet by mouth once daily. Take on empty stomach. For Thyroid. Hilda Ching MA May 20, 2024 10:53 AM [facility] Miscellaneous Notes* Telephone Encounter - Hilda Ching MA - 05/20/2024 10:39 AM EDT Prescription Refill Information The patient has been identified by name and date of : Yes Caregiver verified no other encounters exist for this prescription request: Yes Caregiver confirmed with patient/requestor that no other refills are due, in the near future, with this provider at this time: Yes The last office visit in the department: 02/2024 Does the patient have a future office visit with this provider/department: Yes 08/2024 Requested Prescriptions Pending Prescriptions Disp Refills levothyroxine (SYNTHROID) 50 mcg tablet 90 tablet 1 Sig: Take 1 tablet by mouth once daily. Take on empty stomach. For Thyroid. Hilda Ching MA May 20, 2024 10:53 AM documented in this encounterMagruder Hospital10-28-2024 Telephone encounter Note * Telephone Encounter - Hilda Ching MA - 05/20/2024 10:37 AM EDT Prescription Refill Information The patient has been identified by name and date of : Yes Caregiver verified no other encounters exist for this prescription request: Yes Caregiver confirmed with patient/requestor that no other refills are due, in the near future, with this provider at this time: Yes The last office visit in the department: 02/2024 Does the patient have a future office visit with this provider/department: Yes 08/2024 Requested Prescriptions Pending Prescriptions Disp Refills omeprazole (PRILOSEC) 40 mg capsule 90 capsule 1 Sig: Take 1 capsule by mouth daily before breakfast. 1/2 hr before meal. Hilda Ching MA May 20, 2024 10:38 AM [facility] Miscellaneous Notes* Telephone Encounter - Hilda Ching MA - 05/20/2024 10:37 AM EDT Prescription Refill Information The patient has been identified by name and date of : Yes Caregiver verified no other encounters exist for this prescription request: Yes Caregiver confirmed with patient/requestor that no other refills are due, in the near future, with this provider at this time: Yes The last office visit in the department: 02/2024 Does the patient have a future office visit with this provider/department: Yes 08/2024 Requested Prescriptions Pending Prescriptions Disp Refills omeprazole (PRILOSEC) 40 mg capsule 90 capsule 1 Sig: Take 1 capsule by mouth daily before breakfast. 1/2 hr before meal. Hilda Ching MA May 20, 2024 10:38 AM documented in this encounterMagruder Hospital10-09-2024 History of Present illness Narrative* Ramya Smith RPh - 05/01/2024 10:48 AM EDT [facility] SPECIALTY CLINICAL ASSESSMENT - CELGENE REMS HEADER Patient is not a female of reproductive potential Lenalidomide - Patient Not of Reproductive Potential V2 All boxes and spaces must be marked or filled in during counseling with the patient for every prescription. Ramya Smith [facility] 10:48 AM May 01, 2024 Addendum May 01, 2024 11:54 AM : All REMS components have been verified by clinical pharmacist and patient is (or continues to be) an appropriate candidate for treatment. Confirm prescription contains authorization number and patient risk category Confirm order is for 28 day supply or less Confirm if refill, patient has 7 days or less remaining Confirm order still appropriate to fill 30 days from authorization date For risk category females of reproductive potential: 7 days from last test Drug Interaction and Counseling Checklist Completed Verify all items checked as appropriate in the checklist Confirmation number obtained on same date order will be shipped and documented in the checklist accordingly REMS WAMB flag resolved after confirmation number obtained Medication will be shipped overnight and within 24 hours of receiving confirmation number Confirmation numbers was obtained the same date the order is shipping out Signature required to confirm delivery Jackie Elder, PharmD Clinical Pharmacist, Oncology [facility] P: , F: Pool: P [facility] ONCOLOGY Pool #: [id number] * Ramya Smith [facility] - 05/01/2024 10:48 AM EDT [facility] Refill Assessment Medication(s): lenalidomide Reviewed OV note on 04/19- 04/03 dental procedure, amoxicillin prescribed but stopped d/t facial flushing. Restarted lenalidomide once off antibiotic. 04/25/24 refill note states She started experiencing symptoms yesterday. Her tested positive yesterday. She tested + today. Reviewed treatment with paxlovid. She is agreeable to treatment...She will hold revlimid until paxlovid complete. She will call the office to ensure symptoms are resolved/ improving before restarting revlimid. Labs reviewed. 04/15/24 decrease in light chains noted. Next clinic visit scheduled 05/17/24. Revlimid cycles (28DS: 21 on / 7 off) are as follows: C1D1 03/13/23 C13D1 02/13/24 C14D1 03/12/24- pt to hold 5 days before 04/03 procedure C15D1 04/04/24 - held rev during abx d/t dental procedure C16D1 05/02/24 - delayed d/t covid, approved by Tx team to resume C17D1 05/30/24 As per protocol, will enter SERS regarding COVID infection. REMS note: Pt's last survey was completed on 02/06/24. Next survey will be available on or after 07/16/24. ALLERGIES Allergen Reactions Sulfa (Sulfonamide * Swelling Adhesive Tape-Silic* Rash Patient's current medication list and adherence status to current therapy were reviewed by Specialty Pharmacy clinical pharmacist to identify any new drug interactions or non-compliance to therapy. Therapy continues to be appropriate for disease, patient response, and medical condition. Verification of therapeutic benefit and effectiveness with current therapy was completed. Adverse events, barriers in adherence, and side effects were assessed and addressed if applicable. Will proceed with refill with no changes in therapy - patient progressing towards achieving therapeutic goals based on medication- specific laboratory parameters, disease state markers and outcomes. Office/provider notes have been reviewed prior to dispensing the medication. Ramya Smith RPh PharmD, BCPS Clinical Pharmacist, Oncology [facility] P: , F: Pool: P [facility]COL[facility] Pool #: [id number] Steam Finisher Assessment Patient confirmed: Yes Med/dose confirmed: Yes Supplies needed: No supplies needed Missed doses: No (previous cycle shorter d/t dental procedure) Estimated days supply on hand: 0 (confirmed no more capsules on hand) Next cycle/dose due: 05/02/24 Copay amount: 0 Copay form of payment: (n/a) Payment confirmed: (n/a) Delivery method: FedEx Signature required: Required (, Medicaid, patient preference) Delivery address: [address] [place] [id number] Delivery date: 05/02/24 Questions or concerns for the pharmacist?: No Did you have any side effects believed to be related to this medication, that resulted in hospitalization?: No Current Outpatient Medications on File Prior to Visit Medication Sig REVLIMID 10 mg capsule Take 1 capsule (10 MG) by mouth daily at bedtime for 21 days on and 7 days off. pravastatin (PRAVACHOL) 80 mg tablet Take 1 tablet by mouth once daily. levothyroxine (SYNTHROID) 50 mcg tablet Take 1 tablet by mouth once daily. Take on empty stomach. For Thyroid. acyclovir (ZOVIRAX) 400 mg tablet Take 1 tablet by mouth once daily. ondansetron (ZOFRAN) 8 mg tablet Take 1 tablet by mouth once daily as needed for nausea/vomiting. omeprazole (PRILOSEC) 40 mg capsule Take 1 capsule by mouth daily before breakfast. 1/2 hr before meal. cyanocobalamin (VITAMIN B-12) 500 mcg tablet Take 1 tablet by mouth once daily. FERROUS SULFATE ORAL Take 1 tablet by mouth. aspirin, enteric coated (ASPIRIN, ENTERIC COATED) 81 mg EC tablet Take 81 mg by mouth. omega-3 acid ethyl esters (LOVAZA) 1 gram capsule Take 1 g by mouth. calcium carbonate-vitamin D3 (CALTRATE WITH VITAMIN D3) 600 mg(1,500mg) -800 unit tab Take 1 tabletby mouth twice daily. No current facility-administered medications on file prior to visit. [facility] RX SPECIALTY CLINICAL ASSESSMENT - HEMATOLOGY ONCOLOGY V6: Ivent complete: No Assessment to use: Refill Date of influenza vaccination reminder: 04/01/2024 Date of most recent vaccination assessment: 04/01/2024 Treatment Plan Information: Diagnosis: Multiple myeloma - newly diagnosed Previous treatment(s): none, newly diagnosed Treatment plan: Revlimid (lenalidomide) + daratumumab + dexamethasone Starting Dose/Titration: Take 1 capsule (10mg) by mouth daily at bedtime for 21 days on, 7 days off. - Renal dose reduction required?: yes - CrCl 47mL/min, usual dose 25mg: PI recommends DR to 10mg daily, may increase to 15mg after 2 cycles if tolerating; dose reduced to 10 mg. Administration: - Take with or without food - Take at the same time each day with water; swallow whole Warnings: include but are not limited to - CONGRESSIONAL AIDE effects (dizziness, fatigue) - Tumor Flare, TLS - Venous and arterial thromboembolism (DVT, PE, TN, stroke) - BBW - Hematologic toxicity (neutropenia and thrombocytopenia) - BBW - Embryo- toxicity - BBW - No blood (or semen) donations during and 4 weeks post discontinuation Adverse reactions: include but are not limited to - Hepatotoxicity - Peripheral edema - Derm rxns (pruritis, skin rash, xeroderma) - Diarrhea > constipation; decrease appetite, abdominal pain - N/V (min to low) - BMS (neutropenia, thrombocytopenia, anemia) - Fatigue, asthenia, arthralgia, headache; back pain, muscle cramps/spasms Monitoring: - CBC with diff (MCL - weekly C1, Q2 weeks C2-4, then monthly; MDS - weekly x8 weeks, then at leastmonthly; MM - weekly x2 cycles; Q2 weeks C3, then monthly; Follicular and marginal zone lymphoma - weekly x3 weeks, Q2 weeks C2-4, then monthly) - sCr, LFTs (periodically) - TSH (baseline, then every 2-3 months) - ECG when clinically indicated - S/S infection, bruising, bleeding, hepatoxocity, 2ndry malignancy, thromboembolism, derm toxicity, TLS - test (for females of reproductive potential) - Hep B screening Drug-Drug Interactions: no interactions identified by Jennifer Baseline: - CBCD 02/22/23 - TSH 1.680 on 02/15/23 - CrCl 47mL/min on 02/22/23 - Hep B screening 02/23/23 Est. Tx Plan Start Date: No information available Estimated Start Date Info: Per Dr. Voss's discretion MDO to confirm DR for current CrCl - dose adjusted to 10 mg daily. Est. Estimated Treatment Duration: Continue until disease progression or unacceptable toxicity. Ramya Smith RPh documented in this encounterMagruder Hospital10-09-2024 Telephone encounter Note * Telephone Encounter - Pam Pierre RN - 05/01/2024 10:38 AM EDT Patient called to ask if her revlimid had been ordered. Script sent to [facility] on 04/24, but delayed shipment due to COVID.Patient has finished Paxlovid, and symptoms have improved, patient justhas a runny nose. Will contact Specialty Pharmacy regarding shipping out Revlimid. Patient will restart once she receives it. RUDI FelixN, RN Specialty Nurse Cultural Anthropology Professor [facility]10-09-2024 Miscellaneous Notes* Telephone Encounter - Pam Pierre RN - 05/01/2024 10:38 AM EDT Patient called to ask if her revlimid had been ordered. Script sent to [facility] on 04/24, but delayed shipment due to COVID.Patient has finished Paxlovid, and symptoms have improved, patient justhas a runny nose. Will contact Specialty Pharmacy regarding shipping out Revlimid. Patient will restart once she receives it. JUAN Felix, RN Specialty Nurse Cultural Anthropology Professor * Telephone Encounter - Danisha Caballero - 05/01/2024 10:22 AM EDT Kayley Dickinson is calling Jaime Beatty MD today regarding 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 (Revlimid) Patient has been identified by name and birthdate. Patient is requesting a call back from the care team. Patient would like to discuss her Revlimid prescription. Duration of symptoms: N/A Requesting response back: call on cell [phone] (home) [phone] (cell) Danisha Caballero May 01, 2024 documented in this encounterMagruder Hospital10-09-2024 Telephone encounter Note * Telephone Encounter - Danisha Caballero - 05/01/2024 10:22 AM EDT Kayley Dickinson is calling Jaime Beatty MD today regarding 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 (Revlimid) Patient has been identified by name and birthdate. Patient is requesting a call back from the care team. Patient would like to discuss her Revlimid prescription. Duration of symptoms: N/A Requesting response back: call on cell [phone] (home) [phone] (cell) Danisha Caballero May 01, 2024 [facility]10-07-[facility] Telephone encounter Note* Telephone Encounter - Soraida Pérez APRN.CNP - 04/29/2024 12:09 PM EDT Pt cancelled. [facility] Work Phone: [phone] Miscellaneous Notes* Telephone Encounter - Soraida Pérez APRN.CNP - 04/29/2024 12:09 PM EDT Pt cancelled. * Telephone Encounter - Eugenia Tomas LPN - 04/29/2024 9:32 AM EDT Pt called to be seen today. Pt reports she was dx with COVID last but her symptoms startedon Monday04-24-24. Pt reports on her 6th day and also put on Paxlovid by her cancer doctor. Pt on her 4th day of Paxlovid. Pt concerned with her deep cough. Pt reports coughing up mucous creamy incolor. Denies fever, chest pain, SOB. Pt's provider/team not available. Pt scheduled for apt today w ith provider. Pt aware she will need to wear in a mask. Pt agrees to this. Eugenia Tomas LPN documented in this encounterMagruder Hospital10-07-2024 Telephone encounter Note * Telephone Encounter - Eugenia Tomas LPN - 04/29/2024 9:32 AM EDT Pt called to be seen today. Pt reports she was dx with COVID last but her symptoms startedon Monday04-24-24. Pt reports on her 6th day and also put on Paxlovid by her cancer doctor. Pt on her 4th day of Paxlovid. Pt concerned with her deep cough. Pt reports coughing up mucous creamy incolor. Denies fever, chest pain, SOB. Pt's provider/team not available. Pt scheduled for apt today w ith provider. Pt aware she will need to wear in a mask. Pt agrees to this. Eugenia Tomas LPN [facility]10-03-2024 History of Present illness Narrative* Maureen Ariza, [facility] - 04/25/2024 6:26 PM EDT Reviewed OV note on 04/19/24. Note states 04/03 had dental procedure right lower jaw as scheduled.Was on antibiotic and methylpred... Restarted her revlimid and asa once off the antibiotic. Has about 9 pills left. 04/25/24 refill note states She started experiencing symptoms yesterday. Her tested positive yesterday. She tested + today. Reviewed treatment with paxlovid. She is agreeable to treatment...She will hold revlimid until paxlovid complete. She will call the office to ensure symptoms are resolved/ improving before restarting revlimid. 04/15/24 Labs reviewed. Decrease in light chains noted. Next clinic visit scheduled 05/17/24. ALLERGIES Allergen Reactions Sulfa (Sulfonamide * Swelling Adhesive Tape-Silic* Rash Revlimid cycles (28DS: 21 on / 7 off) are as follows: C1D1 03/13/23 C13D1 02/13/24 C14D1 03/12/24- pt to hold 5 days before 04/03 procedure C15D1 04/04/24 - held rev during abx d/t dental procedure C16D1 05/02/24 - delayed d/t covid C17D1 05/30/24 REMS note: Pt's last survey was completed on 02/06/24. Next survey will be available on or after 07/16/24. [facility] will hold shipment until pt is cleared to start next cycle. Will need to confirm how many capsules she has at home as well. Maureen Arzia, Arlene Clinical Pharmacist, Oncology [facility] P: , F: Pool: P [facility] Pool #: [id number] documented in this encounterMagruder Hospital10-03-2024 History of Present illness Narrative* Maria Ines Finney MA - 04/25/2024 3:04 PM EDT Scan on 04/25/2024 1:44 PM by Provider, RAY Marina: BMP [facility] Telephone encounter Note * Telephone Encounter - Katey Croft RN - 04/25/2024 1:31 PM EDT Alvin Balderas CNP spoke to patient. See subsequent encounter. Katey Croft RN, BSN Specialty Care Registered Nurse Coordinator Multiple Myeloma and Amyloidosis Program [facility] Work Phone: [phone] Miscellaneous Notes* Telephone Encounter - Katey Croft RN - 04/25/2024 1:31 PM EDT Alvin Balderas CNP spoke to patient. See subsequent encounter. Katey Croft RN, BSN Specialty Care Registered Nurse Coordinator Multiple Myeloma and Amyloidosis Program [facility] * Telephone Encounter - Jessica Vines - 04/25/2024 12:53 PM EDT Kayley Roc Dickinson is calling Jaime Beatty MD today regarding 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 (COVID and medication question) Patient has been identified by name and birthdate. Patient tested positive for COVID today and she has been experiencing symptoms such as: feeling tired, her nose is running, her eyes are constantly watering, a sore throat and cough. Patient would like to know if she should make changes regarding the medication REVLIMID 10 mg capsule. Requesting response back: [phone] (cell) Jessica Vines April 25, 2024 documented in [facility]Mag[facility]10-[facility]24 Telephone encounter Note * Telephone Encounter - Alvin Balderas APRN.CNP - 04/25/2024 1:22 PM EDT I called and spoke with pt. She started experiencing symptoms yesterday. Her tested positive yesterday. She tested + today. Reviewed treatment with paxlovid. She is agreeable to treatment. Reviewed worsening symptoms that would warrant ER for evaluation. She will hold revlimid until paxlovid complete. She will call the office to ensure symptoms are resolved/ improving before restarting revlimid. Pt voiced understanding of information reviewed. Alvin Balderas APRN.CNP [facility]10-03-2024 Miscellaneous Notes* Telephone Encounter - Alvin Balderas APRN.CNP - 04/25/2024 1:22 PM EDT I called and spoke with pt. She started experiencing symptoms yesterday. Her tested positive yesterday. She tested + today. Reviewed treatment with paxlovid. She is agreeable to treatment. Reviewed worsening symptoms that would warrant ER for evaluation. She will hold revlimid until paxlovid complete. She will call the office to ensure symptoms are resolved/ improving before restarting revlimid. Pt voiced understanding of information reviewed. Alvin Balderas APRN.CNP documented in this encounterMagruder Hospital10-03-2024 Telephone encounter Note * Telephone Encounter - Jessica Vines - 04/25/2024 12:53 PM EDT Kayley Brian Em is calling Jaime Beatty MD today regarding 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 (COVID and medication question) Patient has been identified by name and birthdate. Patient tested positive for COVID today and she has been experiencing symptoms such as: feeling tired, her nose is running, her eyes are constantly watering, a sore throat and cough. Patient would like to know if she should make changes regarding the medication REVLIMID 10 mg capsule. Requesting response back: [phone] (cell) Jessica Vines April 25, 2024 [facility] Telephone encounter Note* Telephone Encounter - Maureen Ariza RPh - 04/24/2024 4:22 PM EDT Pt will be due for a refill of lenalidomide (Revlimid) soon. If therapy is being continued, please send a refill via eRx to [facility]. To avoid any delays in processing, please make sure that the comments section of the Rx includes: - Authorization # - Patient risk category Thank you in advance for your assistance! Maureen Ariza PharmD Clinical Pharmacist, Oncology [facility] P: , F: Pool: P [facility] Pool #: [id number] [facility]10-02-[facility]24 Miscellaneous Notes* Telephone Encounter - Maureen Ariza RPh - 04/24/2024 4:22 PM EDT Pt will be due for a refill of lenalidomide (Revlimid) soon. If therapy is being continued, please send a refill via eRx to [facility]. To avoid any delays in processing, please make sure that the comments section of the Rx includes: - Authorization # - Patient risk category Thank you in advance for your assistance! Maureen Ariza PharmD Clinical Pharmacist, Oncology [facility] P: , F: Pool: P [facility] Pool #: [id number] documented in this encounterMagruder Hospital09-30-2024 Miscellaneous Notes* Telephone Encounter - Jennifer Mcfadden RN - 04/22/2024 10:05 AM EDT The patient has been identified by name and date of : Yes Caregiver verified no other encounters exist for this prescription request: Yes Caregiver confirmed with patient/requestor that no other refills are due, in the near future, with this provider at this time: Yes The last office visit in the department: 03/06/2024 Does the patient have a future office visit with this provider/department: Yes 09/11/2024 Requested Prescriptions Pending Prescriptions Disp Refills pravastatin (PRAVACHOL) 80 mg tablet 90 tablet 1 Sig: Take 1 tablet by mouth once daily. Jennifer Mcfadden RN April 22, 2024 10:05 AM documented in this encounterMagruder Hospital09-30-2024 Telephone encounter Note * Telephone Encounter - Jennifer Mcfadden RN - 04/22/2024 10:05 AM EDT The patient has been identified by name and date of : Yes Caregiver verified no other encounters exist for this prescription request: Yes Caregiver confirmed with patient/requestor that no other refills are due, in the near future, with this provider at this time: Yes The last office visit in the department: 03/06/2024 Does the patient have a future office visit with this provider/department: Yes 09/11/2024 Requested Prescriptions Pending Prescriptions Disp Refills pravastatin (PRAVACHOL) 80 mg tablet 90 tablet 1 Sig: Take 1 tablet by mouth once daily. Jennifer Mcfadden RN April 22, 2024 10:05 AM [facility] History of Present illness Narrative* Alvin BalderasNABILA.[employer]BE BENDER - 04/19/2024 1:25 PM EDT Images from the original note were not included. (Elements copied from my note dated 03/22/24, have been reviewed and updated where appropriate, and all reflect current assessment and medical decision making during today's encounter, April 19, 2024) [facility] Plasma Cell Disorder Clinic Reason for visit: follow up myeloma. Baseline assessment on initial diagnosis date 2022 Cancer Staging No matching staging information was found for the patient. Symptomatic multiple myeloma, I Related Organ or Tissue Involvement (CRAB) or other Myeloma Defining Event (MDE): Bone disease: At least one lytic bone lesion on XR or CT if BMPC >=10%, at least 2 bone lesions on XR or CT if BMPC<10%, location of lytic lesion(s): Left clavicular head Antecedent plasma cell dyscrasia: No Myeloma FISH panel: Trisomy 15, trisomy 11 Cytogenetics: 46, XX LDH: 175 ISS stage: ISS Stage II Monoclonal proteins at diagnosis: Serum M-spike: 1.19 gm/dL, Involved serum free light chains: 35.2mg/L, and Uninvolved serum free light chains: 10.4 mg/L Total immunoglobulins at diagnosis: IgG = 1980 mg/dl, IgA = 58 mg/dl, IgM = 38 mg/dl Bone marrow plasma cell infiltration: 10-15% plasma cells in the marrow Systemic treatment and disease course - Myeloma response according to: International uniform response criteria, Durie et al. Leukemia 20:1467-73, 2006 and Durie et al. ERRATUM in Leukemia 21:1134, 2007. Update in Debra SV et al. Blood 117: [id number], 2011 Local treatments (radiation, surgery, kyphoplasty) 03/02/2023 to 03/08/2023 The Left clavicle received a total dose of 2000 cGy in 5 fractions at 400 cGy/fraction using 6 MV photons with Wedged Pair technique. History of present illness Mrs. Dickinson is an 87-year-old female with past medical history that includes hypothyroidism, GERD, hyperlipidemia, prediabetes, and possible coronary artery disease who was initially evaluated for left mid clavicular pain and swelling at an urgent care facility on 12/26/2022. A 2 view x-ray of the clavicle obtained on that occasion did not reveal evidence of an osseous abnormality. Of note, the tk bell did not experience antecedent trauma to the clavicle prior to that visit. He was initiated onMedrol Dosepak at the time of discharge. Follow-up MRI of the clavicle on 12/29/2022 demonstrated mild expansion and irregular cortical bone in the medial left clavicle. A bone scintigraphy study on 01/05/2023 demonstrated increased uptake in the left sternoclavicular joint medial clavicle, and a CT of the left clavicle and shoulder on 01/11/2023 demonstrated a permeative lytic lesion with a pathologic fracture of the left medial clavicle. The patient was evaluated in our orthopedic oncology clinic on 01/17/2023. CT scans of the chest abdomen and pelvis did not demonstrate any other evidence of overt osseous disease but did demonstrate hepatic hypodensities for which an MRI of the liver was suggested. An image guided biopsy left clavicle was performed demonstrated sheets of plasma cells. Currently paraprotein work-up prior to the current visit is a serum protein electrophoresis demonstrating a monoclonal spike of 1.19 mg/dL and a spot urine protein electrophoresis that does demonstrate a monoclonal paraprotein. The patient has no evidence of underlying bone marrow involvement in terms of her CBC which is entirely normal. Thereis no evidence of renal dysfunction or hypercalcemia. She denies a personal history of other pathologic fractures. She denies recent fevers, chills, night sweats, nausea, vomiting, diarrhea, voice changes, new rash, or weight loss. She has no personal history of malignancy and no strong family history of thrombophilia, bleeding diathesis, or hematologic cancer. Interim Updates: 03/31/2023: The returns evaluation management of symptomatic myeloma. She denies fevers, chills, night sweat nausea, vomiting, diarrhea, and peripheral neuropathy. She continues on aspirin and acyclovir. Pleated radiation therapy to the left clavicle with no residual pain at the site of the previous fracture. Her paraprotein labs demonstrate normalization of her involved serum free light chain and a decrease in her intact monoclonal paraprotein by approximately 50%. There is no evidence of renal dysfunction or hypercalcemia. Whole body low dose CT scan (see below) demonstrates 1/ rib lytic lesion in addition to the known clavicular lesion. 05/05/2023: Mrs Dickinson is seen for a scheduled follow up visit. She is accompanied by her . Overall, she reports feeling well. Per her account, she has no pain in the area of her L clavicle.Reports two episodes of mild epistaxis over past month. States she has seen ENT in [place] and was told the recurrent nose bleeds were due to the anatomy of the Right side of her nose. Per patient, she is occasionally constipated and eating prunes usually relieves the constipation. Confirms compliance with Revlimid dosing and schedule. 05/31/23: Mrs. Dickinson is seen for a scheduled follow up visit, accompanied by her . She reports overall feeling well. She woke up this morning with a bruise just to the right of the sternoclavicular junction. She denies fevers, chills, night sweats, nausea, vomiting and diarrhea. She deniesnew rashes. Her paraprotein labs from last visit demonstrate a preserved free light chain ratio fabiola fluctuating intact monoclonal paraprotein by protein electrophoresis. 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 Her IgG level has normalized. She has very mild leukopenia and thrombocytopenia. There is no evidence of worsening anemia. There is no evidence of hypercalcemia. Continues on aspirin for thromboprophylaxis and acyclovir for VZV prophylaxis. Performance status is unchanged with the initiation of therapy she notes she is able to complete all of her ADLs and IADLs independently. 07/14/23: Constipation, the patient denies fevers, chills, night sweats, nausea, vomiting, diarrhea, and significant weight changes. 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 Serologically, her immunofixation demonstrates what is likely the presence of daratumumab. Her light chains remain within normal range with a normalized ratio. Her low level intact monoclonal paraprotein may represent daratumumab. She continues to take aspirin and acyclovir as directed. She complains of no new areas of bony pain. 12/01/23: At the present visit, patient denies fevers, chills, night, nausea, vomiting, diarrhea, significantly. She estimates that she wakes at 5 AM every day and is able to work for several hours before becoming tired in the early afternoon. She has not noticed any lymphadenopathy. She has not noticed any early satiety. Paraprotein labs indicate a complete remission. She remains on lenalidomide 10 mg daily day 1 through 21 of a 28-day cycle and monthly daratumumab. We have taken dexamethasone out of her treatment plan. She also receives monthly zoledronic acid. There is no evidence of renal dysfunction, hypercalcemia, or new onset cytopenias. 12/29/23: pt called in last week for brb from rectum. Has known hemorrhoids. Issue subsided without additional interventions. H/h stable. Denies other symptoms. 01/26/24: Mrs. Dickinson returns for follow up. Continues to tolerate treatment well. She tells me sheis recommended to have a dental procedure where they will take some tissue from her upper gum and put it into an implant on her lower jaw. She said her dentist wanted clearance from Dr. Beatty and will be sending the information to him to review. She wont be scheduled until she has an ok from our team. I advised her this will need to be reviewed once we have the details of what they are planning. In prep for this we will hold zometa until we know definitely if she will have this done or not. Started revlimid 01/15. 02/21/24: The patient here for follows up and tolerating the treatment well. Her lab workup from 02/19/24 shows an atypical region of restricted mobility on SPEP and no M protein on immunofixation. K/Lratio is also normal. IgG is 630 as well. CBC still shows mild pancytopenia. She denies recent fevers, chills, night sweats, nausea, vomiting, diarrhea, voice changes, new rash, or weight loss. She has an implant of the tooth planned for April 03 2024. Was counseled on keeping an eye out on the fatigue 03/22/24: has dental work scheduled for 04/03. Otherwise feels well. 04/19/24: 04/03 had dental procedure right lower jaw as scheduled. Was on antibiotic and methylpred. Can remember the name of the antibiotic. From recent note looks like amoxicillin. She had facial flush should moved down to neck area, denies any other contributing symptoms. Was seen by Dentist and both meds were stopped. Restarted her revlimid and asa once off the antibiotic. Has about 9 pills left. Feels well. Review of systems General: No fever , No chills, and No night sweats HEENT: No lumps, no difficulty chewing or swallowing, no enlarging tongue, no tooth aches. Musculoskeletal: no current pain Hematological: No bleeding or easy bruising. Lymphatic / Immune system: No lymph node enlargement or infection. Cardiovascular: No orthopnea, no dyspnea, no chest pain, no leg edema, no palpitations. Pulmonary: No dyspnea, no wheezing, no cough. Gastrointestinal: see HPI. No nausea, vomitting, diarrhea, constipation, abdominal pain, or blood in stool. PAST MEDICAL HISTORY Diagnosis Date Advance directive discussed with patient 02/25/2022 Discussed 02/2022 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 rich plaque 03/31/2019 Current use of proton pump inhibitor 07/30/2019 Elevated fasting blood sugar 03/29/2019 GERD without esophagitis 03/29/2019 High cholesterol History of 2019 novel coronavirus disease (COVID-19) 09/07/202202/2022 History of squamous cell carcinoma of skin 03/31/2019 Right side of nose Hypothyroidism, acquired 03/29/[address] 02/25/2022 DPA: Micaela () Medicare annual wellness visit, subsequent 08/17/2020 Medical B eligibilty date 11/21/2002 Last done: 02/11/2020 Mixed hyperglyceridemia 03/29/2019 Multiple myeloma (HCC) 02/13/2023 Osteopenia of spine 03/29/2019 PAST SURGICAL HISTORY Procedure Laterality Date CATARACT EXTRACTION HX Bilateral 2017 COLONOSCOPY 10/25/2021 repeat only if needed HYSTERECTOMY partial - age 40 MASTECTOMY, SIMPLE, COMPLETE Bilateral 1976 with implants for fibrocystic disease (?) NUCLEAR STRESS TEST (WT<440#) (UNION) 08/09/2013 old records: negative PAST SURGICAL HISTORY OF 1995 breast implants Allergies / intolerances ALLERGIES Allergen Reactions Sulfa (Sulfonamide * Swelling Adhesive Tape-Silic* Rash Medications REVLIMID 10 mg capsule Take 1 capsule (10 MG) by mouth daily at bedtime for 21 days on and 7 days off. levothyroxine (SYNTHROID) 50 mcg tablet Take 1 tablet by mouth once daily. Take on empty stomach. For Thyroid. acyclovir (ZOVIRAX) 400 mg tablet Take 1 tablet by mouth once daily. ondansetron (ZOFRAN) 8 mg tablet Take 1 tablet by mouth once daily as needed for nausea/vomiting. omeprazole (PRILOSEC) 40 mg capsule Take 1 capsule by mouth daily before breakfast. 1/2 hr before meal. pravastatin (PRAVACHOL) 80 mg tablet Take 1 tablet by mouth once daily. cyanocobalamin (VITAMIN B-12) 500 mcg tablet Take 1 tablet by mouth once daily. FERROUS SULFATE ORAL Take 1 tablet by mouth. aspirin, enteric coated (ASPIRIN, ENTERIC COATED) 81 mg EC tablet Take 81 mg by mouth. omega-3 acid ethyl esters (LOVAZA) 1 gram capsule Take 1 g by mouth. calcium carbonate-vitamin D3 (CALTRATE WITH VITAMIN D3) 600 mg(1,500mg) -800 unit tab Take 1 tabletby mouth twice daily. Social History Tobacco Use Smoking status: Never Smokeless tobacco: Never Vaping Use Vaping status: Never Used Substance Use Topics Alcohol use: Not Currently Drug use: Not Currently FAMILY HISTORY Problem Relation Age of Onset Heart Failure Mother Diabetes Sister Hyperlipidemia Sister Thyroid Sister Breast Cancer Maternal Grandmother Diabetes Daughter Hyperlipidemia Sister Alzheimer's Disease No Family History Colon Cancer No Family History Prostate Cancer No Family History Ovarian cancer No Family History Uterine Cancer No Family History Coronary Artery Disease No Family History Hypertension No Family History Kidney Disease No Family History Seizures No Family History Stroke No Family History Physical examination BP 152/54 Pulse (!) 59 Temp 36.2 C (97.2 F) (Temporal) Resp 17 Wt 50.5 kg (111 lb 5.3 oz) SpO2 99% BMI 21.43 kg/m ECOG PS: 1- Restricted in physically strenuous activity. Carries out light duty. General appearance: Well appearing, alert, in no acute distress, well-hydrated, well nourished. HEENT: No lumps, no macroglossia, no icterus. Mucous membranes pink. Neck: Supple, no adenopathy Lungs: even chest rise and fall. Extremities: No deformities, edema. Laboratory tests WBC (k/uL) Date Value 04/15/2024 3.74 03/22/2024 4.09 02/19/2024 3.49 01/23/2024 3.13 12/26/2023 2.98 11/28/2023 3.21 10/31/2023 3.27 10/05/2023 3.75 09/06/2023 4.65 08/09/2023 3.79 09/06/2021 6.85 03/15/2021 7.83 02/04/2021 6.15 01/31/2020 5.74 Abs Neut (ANC) (k/uL) Date Value 09/06/2021 4.61 03/15/2021 5.08 02/04/2021 3.89 01/31/2020 3.68 Abs Neut (k/uL) Date Value 04/15/2024 2.79 03/22/2024 2.84 02/19/2024 2.42 01/23/2024 2.19 12/26/2023 2.00 11/28/2023 2.10 10/31/2023 2.08 10/05/2023 2.65 09/06/2023 3.29 08/09/2023 2.53 Hemoglobin (g/dL) Date Value 04/15/2024 11.8 03/22/2024 11.4 02/19/2024 11.0 01/23/2024 11.3 12/26/2023 11.3 11/28/2023 11.9 10/31/2023 12.4 10/05/2023 11.9 09/06/2023 12.5 08/09/2023 13.2 09/06/2021 14.0 03/15/2021 14.0 02/04/2021 13.3 01/31/2020 13.3 Platelet Count (k/uL) Date Value 04/15/2024 107 03/22/2024 98 02/19/2024 115 01/23/2024 100 12/26/2023 91 11/28/2023 99 10/31/2023 93 10/05/2023 91 09/06/2023 105 08/09/2023 105 09/06/2021 157 03/15/2021 173 02/04/2021 148 01/31/2020 168 Glucose (mg/dL) Date Value 04/15/2024 112 03/19/2024 96 02/19/2024 121 01/23/2024 89 12/26/2023 104 11/28/2023 113 10/31/2023 115 10/05/2023 134 09/06/2023 105 08/09/2023 100 02/04/2021 98 01/31/2020 90 Creatinine (mg/dL) Date Value 04/15/2024 0.91 03/19/2024 0.93 02/19/2024 0.94 01/23/2024 0.93 12/26/2023 0.99 11/28/2023 0.96 10/31/2023 0.83 10/05/2023 0.85 09/06/2023 0.83 08/09/2023 0.98 02/04/2021 0.72 01/31/2020 0.70 Calcium (mg/dL) Date Value 02/04/2021 9.1 01/31/2020 9.5 Calcium, Total (mg/dL) Date Value 04/15/2024 9.1 03/19/2024 9.3 02/19/2024 8.2 01/23/2024 8.5 12/26/2023 9.0 11/28/2023 9.5 10/31/2023 10.1 10/05/2023 8.8 09/06/2023 9.4 08/09/2023 8.9 M-Protein Concentration (g/dL) Date Value 04/15/2024 0.00 03/19/2024 0.00 02/19/2024 0.00 01/23/2024 0.16 11/28/2023 0.15 10/31/2023 0.17 10/05/2023 0.19 09/06/2023 0.24 08/09/2023 0.29 07/13/2023 0.31 06/29/2023 0.33 06/14/2023 0.40 05/30/2023 0.39 05/18/2023 0.46 05/04/2023 0.06 04/20/2023 0.13 04/06/2023 0.58 03/29/2023 0.11 03/02/2023 1.20 02/22/2023 1.35 02/15/2023 1.39 01/17/2023 1.19 [place] Free, Serum Date Value 04/15/2024 13.3 mg/L 03/19/2024 17.1 mg/L 02/19/2024 16.0 mg/L 01/23/2024 16.7 mg/L 11/28/2023 17.3 mg/L 10/31/2023 15.6 mg/L 10/05/2023 16.2 mg/L 09/06/2023 15.5 mg/L 08/09/2023 16.0 mg/L 07/13/2023 Comment: Unable to assay. Specimen hemolyzed. Rarely, increased serum free light chains levels may not be detected or accurately quantified due to prozone phenomenon or in high viscosity samples using this immunoturbidimetric assay. Correlation with other laboratory results and clinical findings is recommended. The [place] Free Light Chain was performed using the Binding Site Optilite immunoturbidimetric method. Result obtained with different assay methods or kits cannot be used interchangeably. 06/29/2023 21.2 mg/L 06/14/2023 18.6 mg/L 05/30/2023 21.7 mg/L 05/18/2023 20.8 mg/L 05/04/2023 20.8 mg/L 04/20/2023 17.7 mg/L 04/06/2023 21.9 mg/L 03/29/2023 21.4 mg/L 03/02/2023 21.3 mg/L 02/22/2023 30.5 mg/L 02/15/2023 35.2 mg/L Lambda Free, Serum (mg/L) Date Value 04/15/2024 14.2 03/19/2024 18.2 02/19/2024 19.4 01/23/2024 18.4 11/28/2023 16.8 10/31/2023 15.8 10/05/2023 14.7 09/06/2023 13.9 08/09/2023 13.0 07/13/2023 10.4 06/29/2023 11.5 06/14/2023 9.5 05/30/2023 10.4 05/18/2023 10.1 05/04/2023 10.4 04/20/2023 6.6 04/06/2023 13.0 03/29/2023 13.0 03/02/2023 4.6 02/22/2023 11.1 02/15/2023 10.4 Interpretation (MPA) (no units) Date Value 04/15/2024 There is a faint band in the IgG and kappa lanes. The patient is receiving a therapeutic monoclonalantibody, for which the electrophoretic properties have not been well-defined. Cannot exclude the possibility that this band represents a therapeutic monoclonal antibody rather than an IgG kappa paraprotein. Recommend correlation with serum free light chain and urine monoclonal protein analysis. 01/23/2024 There is an atypical restricted band present in the IgG and kappa regions. The location of the IgG kappa band suggests the presence of daratumumab, although one cannot rule out the possibility that this band represents a disease-related monoclonal protein. If clinically required, specific testing for daratumumab may be ordered to confirm the presence of the drug in this patient. 11/28/2023 There are two atypical restricted bands present in the IgG and kappa regions. The location of the IgG kappa band suggests the presence of daratamumab. However the second band has a different migration pattern and is unlikely to represent daratumumab. Poorly defined region of restricted mobility in the lambda alejandro. Pattern is less well defined or fainter than typically seen in monoclonal gammopathy. This could represent either an atypical presentation of polyclonal immunoglobulins or the presence of a low level lambda containing monoclonal gammopathy. 10/31/2023 There are two atypical restricted bands present in the IgG and kappa regions. The location of the IgG kappa band suggests the presence of daratamumab. However the second band has a different migration pattern and is unlikely to represent daratumumab. 10/05/2023 There is an atypical restricted band present in the IgG and kappa regions. The location of the IgG kappa band suggests the presence of daratumumab, although one cannot rule out the possibility that this band represents a disease-related monoclonal protein. If clinically required, specific testing for daratumumab may be ordered to confirm the presence of the drug in this patient. Poorly defined region of restricted mobility in IgG and kappa lanes. Pattern is less well defined or fainter than typically seen in monoclonal gammopathy. This could represent either an atypical presentation of polyclonal immunoglobulins or the presence of a low level IgG kappa monoclonal gammopathy. If clinically indicated, urine monoclonal protein analysis and serum free light chain measurements are recommended to evaluate further for monoclonal gammopathy. Clinical correlation is necessary. Imaging - MRI 12/29/2022: demonstrating mild expansion and irregular cortical bone in medial left clavicle. - Bone scintography 01/05/2023: increased uptake in left sternoclavicular joint, and medial clavicle. - CT left clavicle/shoulder 01/11/2023: permeative lytic lesion with pathological fracture of left medial clavicle. Low-dose CT scan of the whole body (02/22/2023) 1. Stable expansile, lytic bone lesion with associated cortical destruction involving the medial left clavicle, corresponding with the site of recent biopsy. 2. There is a lytic lesion involving the posterior right ninth rib at the costovertebral joint with disruption of the posterior cortex. 3. No other lytic bone lesions identified. 4. 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 Correlation with prior outside studies, if available, would be helpful. This could be further evaluated with dedicated head CT. 5. Additional findings as above which are stable from the recent chest and abdominopelvic CT exams. Pathology: Image guided biopsy of the mid left clavicle (01/30/2023) FINAL DIAGNOSIS A. Lesion, left clavicular head, biopsy: - Plasma cell neoplasm (kappa). - See comment. CV/mm/02/01/2023 Diagnosis Comment Histologic sections show fragments of blood clot associated with clusters of plasma cells. The plasma cells are intermediate sized, with abundant cytoplasm and round, eccentric nuclei with mature chromatin. Immunohistochemical stains have been performed with appropriately staining controls. The plasma cells are positive for CD138. On the stains for kappa or lambda they appear monotypic kappa. 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 Further classification of this process requires correlation with clinical, radiologic, and laboratory findings. Impression and Plan Cancer Staging No matching staging information was found for the patient. #multiple myeloma Cytogenetic risk category: Standard risk Frailty Score: 0 IMWG Response Criteria: Renal: Normal creatinine, clinically no evidence for renal dysfunction. Infectious diseases: No current infection, no need for prophylaxis Musculoskeletal: Chronic pain, satisfactorily controlled. Bone modifying therapy: zometa Venous thromboembolism risk: No need for DVT prophylaxis control counseling: Does not apply since patient is naturally postmenopausal for greater than24 months or post hysterectomy or post bilateral oophorectomy Neurology: No neurologic symptoms Health maintenance discussed: Regular exercise and Appropriate diet Side effects from current medications: None Mrs. Dickinson is an 88-year-old female with excellent performance status who was recently diagnosedwith a fracture of the left mid clavicle without evidence of trauma to the site. An image guided biopsy revealed plasma cell involvement and a initial protein electrophoresis demonstrated a monoclonal paraprotein 1.19 mg/dL. Cross-sectional imaging revealed no evidence of additional osseous disease. She continues on the AGNES regimen with excellent tolerance of treatment and performance status. Her intact monoclonal paraprotein has fluctuated; however, this is in the context of daratumumab treatment and an underlying CD5+ B-cell clone. Her total IgG level has normalized and there are no other i ndications of symptomatic or biochemical progression. Overall, she is likely at least achieved a VGPR and probably a CR. I am attributing her positive immunofixation to the presence of daratumumab which on testing this time was negative. Her performance status remains excellent. We will continue aspirin, acyclovir, and bone stabilizing therapy. We will continue her treatment as planned with follow-up in 4 weeks. We will hold bone stabilizing therapy for the next 2 months due to impending dentalextractions. Following that, we will resume treatment once every 3 months. She has been instructed to hold aspirin and lenalidomide for 5 days before her upcoming dental procedure. Plan Summary: -Continue daratumumab and lenalidomide (dexamethasone dropped based on Agnes protocol) with lenalidomide 10 mg day 1 through 21 of a 28-day cycle for now -No further dexamethasone with treatment -HOLD for now bone stabilizing therapy due to dental work on 04/03/24 -Continue acyclovir and aspirin -RTC in 4 weeks I spent 25 minutes in the visit, with more than 50% of the total [id number] time of the visit in counseling / coordination of care. Alvin Balderas APRN.CNP documented in [facility] encounterMag[facility]09[facility] Nurse Note* Anika Mcnamara LPN - 04/19/2024 1:19 PM EDT Additional intake questions: Has the patient had fever, nausea, vomiting, diarrhea, constipation, fatigue for > 1 week? No Does the patient have a decreased appetite? No Does patient want to see a Housekeeping Department Worker? No (yes to any of above refer patient to schedulers for dietitian appointment) ) Does patient have any new or increased numbness or tingling of extremities? No Is patient interested in fertility information? No Does patient need any prescription refills? No Does patient have an advanced directive in place? no Electronically Signed By: Anika Mcnamara LPN [facility]09-27-[facility] Nurse Note* Anika Mcnamara LPN - 04/19/2024 1:19 PM EDT Additional intake questions: Has the patient had fever, nausea, vomiting, diarrhea, constipation, fatigue for > 1 week? No Does the patient have a decreased appetite? No Does patient want to see a Housekeeping Department Worker? No (yes to any of above refer patient to schedulers for dietitian appointment) ) Does patient have any new or increased numbness or tingling of extremities? No Is patient interested in fertility information? No Does patient need any prescription refills? No Does patient have an advanced directive in place? no Electronically Signed By: Anika Mcnamara LPN documented in this encounterMag[facility]09-12-2024 Telephone encounter Note * Telephone Encounter - Katey Croft RN - 04/04/2024 11:00 AM EDT Spoke to patient via telephone. Patient had dental procedure yesterday and was prescribed amoxicillin for 5 days and Medrol dose pack. Instructed patient to finish antibiotics and then resume Revlimid. Okay to take Revlimid while on steroids. Instructed patient that she should get her flu shot in the beginning or around the beginning of April. Last Zometa was 12/28, not planned until late April. Patient verbalized understanding of plan. Katey Croft RN, BSN Specialty Care Registered Nurse Coordinator Multiple Myeloma and Amyloidosis Program [facility] Work Phone: [phone]) 845-505809-12-2024 Miscellaneous Notes* Telephone Encounter - Katey Croft, RN - 04/04/2024 11:00 AM EDT Spoke to patient via telephone. Patient had dental procedure yesterday and was prescribed amoxicillin for 5 days and Medrol dose pack. Instructed patient to finish antibiotics and then resume Revlimid. Okay to take Revlimid while on steroids. Instructed patient that she should get her flu shot in the beginning or around the beginning of April. Last Zometa was 12/28, not planned until late April. Patient verbalized understanding of plan. Katey Croft RN, BSN Specialty Care Registered Nurse Coordinator Multiple Myeloma and Amyloidosis Program [facility] * Telephone Encounter - Milady Sparks - 04/04/2024 8:58 AM EDT Kayley Dickinson is calling Jaime Beatty MD today regarding 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 (Resuming medication) Patient has been identified by name and birthdate. Patient is calling to state she is resuming Revolimid after a procedure. She was prescribed Methylpredisolone and Amoxicillin and is asking for advice regarding all the medications. Patient is also asking when can she have a flu shot. Duration of symptoms: N/A Requesting response back: call at home [phone] (home) Milady Sparks April 04, 2024 documented in this encounterMag[facility]09-12-2024 Telephone encounter Note * Telephone Encounter - Milady Sparks - 04/04/2024 8:58 AM EDT Kayley Dickinson is calling Jaime Beatty MD today regarding 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 (Resuming medication) Patient has been identified by name and birthdate. Patient is calling to state she is resuming Revolimid after a procedure. She was prescribed Methylpredisolone and Amoxicillin and is asking for advice regarding all the medications. Patient is also asking when can she have a flu shot. Duration of symptoms: N/A Requesting response back: call at home [phone] (home) Milady Bridger April 04, 2024 [facility]09-[facility] History of Present illness Narrative* Ramya Smith [facility] - 04/01/2024 10:10 AM EDT [facility] RX SPECIALTY CLINICAL ASSESSMENT - CELGENE REMS HEADER Patient is not a female of reproductive potential Lenalidomide - Patient Not of Reproductive Potential V2 All boxes and spaces must be marked or filled in during counseling with the patient for every prescription. Ramya Smith pauly 10:10 AM April 01, 2024 Addendum April 01, 2024 11:04 AM : All REMS components have been verified by clinical pharmacist and patient is (or continues to be) an appropriate candidate for treatment. Confirm prescription contains authorization number and patient risk category Confirm order is for 28 day supply or less Confirm if refill, patient has 7 days or less remaining Confirm order still appropriate to fill 30 days from authorization date For risk category females of reproductive potential: 7 days from last test Drug Interaction and Counseling Checklist Completed Verify all items checked as appropriate in the checklist Confirmation number obtained on same date order will be shipped and documented in the checklist accordingly REMS WAMB flag resolved after confirmation number obtained Medication will be shipped overnight and within 24 hours of receiving confirmation number Confirmation numbers was obtained the same date the order is shipping out Signature required to confirm delivery Jackie Elder, PharmD Clinical Pharmacist, Oncology [facility] P: , F: Pool: P [facility] Pool #: [id number] * Ramya Smith [facility] - 04/01/2024 10:10 AM EDT [facility] Specialty Refill Assessment Medication(s): Revlimid Reviewed IM note on 03/06. Reviewed OV note on 03/22. Labs reviewed. K/L ratio normal. Latest Reference Range & Units 03/19/24 07:04 M-Protein Concentration <=0.00 g/dL 0.00 Next clinic visit scheduled 04/19. Revlimid cycles (28DS: 21 on / 7 off) are as follows: C1D1 03/13/23 C8D1 09/26/23 C9D1 10/27/23 -3 days late d/t illness? C10D1 11/21/23 - per pt C11D1 12/19/23 C12D1 01/16/24 C13D1 02/13/24 C14D1 03/12/24- pt to hold 5 days before 04/03 procedure C15D1 04/04/24- pt to start next cycle 24 hrs after procedure if no issues/hemostasis achieved C16D1 05/02/24 REMS note: Pt's last survey was completed on 02/06/24. Next survey will be available on or after 07/16/24. ALLERGIES Allergen Reactions Sulfa (Sulfonamide * Swelling Adhesive Tape-Silic* Rash Patient's current medication list and adherence status to current therapy were reviewed by Specialty Pharmacy clinical pharmacist to identify any new drug interactions or non-compliance to therapy. Therapy continues to be appropriate for disease, patient response, and medical condition. Verification of therapeutic benefit and effectiveness with current therapy was completed. Adverse events, barriers in adherence, and side effects were assessed and addressed if applicable. Will proceed with refill with no changes in therapy - patient progressing towards achieving therapeutic goals based on medication- specific laboratory parameters, disease state markers and outcomes. Office/provider notes have been reviewed prior to dispensing the medication. Ramya Smith RPh PharmD, BCPS Clinical Pharmacist, Oncology [facility] P: , F: Pool: P [facility] Pool #: [id number] Steam Finisher Assessment Patient confirmed: Yes Med/dose confirmed: Yes Supplies needed: No supplies needed Missed doses: No Estimated days supply on hand: 0 (stopped taking on the 6th in anticipation of dental procedure (had sent SS)) Next cycle/dose due: 04/04/24 Copay amount: 0 Copay form of payment: (n/a) Payment confirmed: (n/a) Delivery method: FedEx Signature required: Required (, Medicaid, patient preference) Delivery address: [place] [address] Delivery date: 04/02/24 Questions or concerns for the pharmacist?: No Did you have any side effects believed to be related to this medication, that resulted in hospitalization?: No Current Outpatient Medications on File Prior to Visit Medication Sig REVLIMID 10 mg capsule Take 1 capsule (10 MG) by mouth daily at bedtime for 21 days on and 7 days off. levothyroxine (SYNTHROID) 50 mcg tablet Take 1 tablet by mouth once daily. Take on empty stomach. For Thyroid. acyclovir (ZOVIRAX) 400 mg tablet Take 1 tablet by mouth once daily. ondansetron (ZOFRAN) 8 mg tablet Take 1 tablet by mouth once daily as needed for nausea/vomiting. omeprazole (PRILOSEC) 40 mg capsule Take 1 capsule by mouth daily before breakfast. 1/2 hr before meal. pravastatin (PRAVACHOL) 80 mg tablet Take 1 tablet by mouth once daily. cyanocobalamin (VITAMIN B-12) 500 mcg tablet Take 1 tablet by mouth once daily. FERROUS SULFATE ORAL Take 1 tablet by mouth. aspirin, enteric coated (ASPIRIN, ENTERIC COATED) 81 mg EC tablet Take 81 mg by mouth. omega-3 acid ethyl esters (LOVAZA) 1 gram capsule Take 1 g by mouth. calcium carbonate-vitamin D3 (CALTRATE WITH VITAMIN D3) 600 mg(1,500mg) -800 unit tab Take 1 tabletby mouth twice daily. No current facility-administered medications on file prior to visit. [facility] RX SPECIALTY CLINICAL ASSESSMENT - HEMATOLOGY ONCOLOGY V6: Ivent complete: No Assessment to use: Refill Date of influenza vaccination reminder: 04/06/2023 Date of most recent vaccination assessment: 04/06/2023 Treatment Plan Information: Diagnosis: Multiple myeloma - newly diagnosed Previous treatment(s): none, newly diagnosed Treatment plan: Revlimid (lenalidomide) + daratumumab + dexamethasone Starting Dose/Titration: Take 1 capsule (10mg) by mouth daily at bedtime for 21 days on, 7 days off. - Renal dose reduction required?: yes - CrCl 47mL/min, usual dose 25mg: PI recommends DR to 10mg daily, may increase to 15mg after 2 cycles if tolerating; dose reduced to 10 mg. Administration: - Take with or without food - Take at the same time each day with water; swallow whole Warnings: include but are not limited to - CONGRESSIONAL AIDE effects (dizziness, fatigue) - Tumor Flare, TLS - Venous and arterial thromboembolism (DVT, PE, TN, stroke) - BBW - Hematologic toxicity (neutropenia and thrombocytopenia) - BBW - Embryo- toxicity - BBW - No blood (or semen) donations during and 4 weeks post discontinuation Adverse reactions: include but are not limited to - Hepatotoxicity - Peripheral edema - Derm rxns (pruritis, skin rash, xeroderma) - Diarrhea > constipation; decrease appetite, abdominal pain - N/V (min to low) - BMS (neutropenia, thrombocytopenia, anemia) - Fatigue, asthenia, arthralgia, headache; back pain, muscle cramps/spasms Monitoring: - CBC with diff (MCL - weekly C1, Q2 weeks C2-4, then monthly; MDS - weekly x8 weeks, then at leastmonthly; MM - weekly x2 cycles; Q2 weeks C3, then monthly; Follicular and marginal zone lymphoma - weekly x3 weeks, Q2 weeks C2-4, then monthly) - sCr, LFTs (periodically) - TSH (baseline, then every 2-3 months) - ECG when clinically indicated - S/S infection, bruising, bleeding, hepatoxocity, 2ndry malignancy, thromboembolism, derm toxicity, TLS - test (for females of reproductive potential) - Hep B screening Drug-Drug Interactions: no interactions identified by Jennifer Baseline: - CBCD 02/22/23 - TSH 1.680 on 02/15/23 - CrCl 47mL/min on 02/22/23 - Hep B screening 02/23/23 Est. Tx Plan Start Date: No information available Estimated Start Date Info: Per Dr. Voss's discretion MDO to confirm DR for current CrCl - dose adjusted to 10 mg daily. Est. Estimated Treatment Duration: Continue until disease progression or unacceptable toxicity. Ramya Smith RPh documented in this encounterMag[facility]08-30-2024 Instructions* Patient Instructions* Alvin Balderas APRN.[employer]BE BENDER - 03/22/2024 1:12 PM EDT Call the office day after the dental procedure. If all is well we can order the revlimid Stop at scheduling for dec appt. documented in this encounterMag[facility]uder [facility]08-30-2024 History of Present illness Narrative* Alvin Balderas APRN.CNP - 03/22/2024 12:51 PM EDT Images from the original note were not included. (Elements copied from Dr. Beatty note dated 02/21/24, have been reviewed and updated where appropriate, and all reflect current assessment and medical decision making during today's encounter, March 22, 2024) [facility] Plasma Cell Disorder Clinic Reason for visit: follow up myeloma. Baseline assessment on initial diagnosis date 2022 Cancer Staging No matching staging information was found for the patient. Symptomatic multiple myeloma, I Related Organ or Tissue Involvement (CRAB) or other Myeloma Defining Event (MDE): Bone disease: At least one lytic bone lesion on XR or CT if BMPC >=10%, at least 2 bone lesions on XR or CT if BMPC<10%, location of lytic lesion(s): Left clavicular head Antecedent plasma cell dyscrasia: No Myeloma FISH panel: Trisomy 15, trisomy 11 Cytogenetics: 46, XX LDH: 175 ISS stage: ISS Stage II Monoclonal proteins at diagnosis: Serum M-spike: 1.19 gm/dL, Involved serum free light chains: 35.2mg/L, and Uninvolved serum free light chains: 10.4 mg/L Total immunoglobulins at diagnosis: IgG = 1980 mg/dl, IgA = 58 mg/dl, IgM = 38 mg/dl Bone marrow plasma cell infiltration: 10-15% plasma cells in the marrow Systemic treatment and disease course - Myeloma response according to: International uniform response criteria, Durie et al. Leukemia 20:1467-73, 2006 and Durie et al. ERRATUM in Leukemia 21:1134, 2007. Update in Debra SV et al. Blood 117: [id number], 2011 Local treatments (radiation, surgery, kyphoplasty) 03/02/2023 to 03/08/2023 The Left clavicle received a total dose of 2000 cGy in 5 fractions at 400 cGy/fraction using 6 MV photons with Wedged Pair technique. History of present illness Mrs. Dickinson is an 87-year-old female with past medical history that includes hypothyroidism, GERD, hyperlipidemia, prediabetes, and possible coronary artery disease who was initially evaluated for left mid clavicular pain and swelling at an urgent care facility on 12/26/2022. A 2 view x-ray of the clavicle obtained on that occasion did not reveal evidence of an osseous abnormality. Of note, the tk bell did not experience antecedent trauma to the clavicle prior to that visit. He was initiated onMedrol Dosepak at the time of discharge. Follow-up MRI of the clavicle on 12/29/2022 demonstrated mild expansion and irregular cortical bone in the medial left clavicle. A bone scintigraphy study on 01/05/2023 demonstrated increased uptake in the left sternoclavicular joint medial clavicle, and a CT of the left clavicle and shoulder on 01/11/2023 demonstrated a permeative lytic lesion with a pathologic fracture of the left medial clavicle. The patient was evaluated in our orthopedic oncology clinic on 01/17/2023. CT scans of the chest abdomen and pelvis did not demonstrate any other evidence of overt osseous disease but did demonstrate hepatic hypodensities for which an MRI of the liver was suggested. An image guided biopsy left clavicle was performed demonstrated sheets of plasma cells. Currently paraprotein work-up prior to the current visit is a serum protein electrophoresis demonstrating a monoclonal spike of 1.19 mg/dL and a spot urine protein electrophoresis that does demonstrate a monoclonal paraprotein. The patient has no evidence of underlying bone marrow involvement in terms of her CBC which is entirely normal. Thereis no evidence of renal dysfunction or hypercalcemia. She denies a personal history of other pathologic fractures. She denies recent fevers, chills, night sweats, nausea, vomiting, diarrhea, voice changes, new rash, or weight loss. She has no personal history of malignancy and no strong family history of thrombophilia, bleeding diathesis, or hematologic cancer. Interim Updates: 03/31/2023: The returns evaluation management of symptomatic myeloma. She denies fevers, chills, night sweat nausea, vomiting, diarrhea, and peripheral neuropathy. She continues on aspirin and acyclovir. Pleated radiation therapy to the left clavicle with no residual pain at the site of the previous fracture. Her paraprotein labs demonstrate normalization of her involved serum free light chain and a decrease in her intact monoclonal paraprotein by approximately 50%. There is no evidence of renal dysfunction or hypercalcemia. Whole body low dose CT scan (see below) demonstrates 1/9 rib lytic lesion in addition to the known clavicular lesion. 05/05/2023: Mrs Dickinson is seen for a scheduled follow up visit. She is accompanied by her . Overall, she reports feeling well. Per her account, she has no pain in the area of her L clavicle.Reports two episodes of mild epistaxis over past month. States she has seen ENT in [place] and was told the recurrent nose bleeds were due to the anatomy of the Right side of her nose. Per patient, she is occasionally constipated and eating prunes usually relieves the constipation. Confirms compliance with Revlimid dosing and schedule. 05/31/23: Mrs. Dickinson is seen for a scheduled follow up visit, accompanied by her . She reports overall feeling well. She woke up this morning with a bruise just to the right of the sternoclavicular junction. She denies fevers, chills, night sweats, nausea, vomiting and diarrhea. She deniesnew rashes. Her paraprotein labs from last visit demonstrate a preserved free light chain ratio fabiola fluctuating intact monoclonal paraprotein by protein electrophoresis. 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 Her IgG level has normalized. She has very mild leukopenia and thrombocytopenia. There is no evidence of worsening anemia. There is no evidence of hypercalcemia. Continues on aspirin for thromboprophylaxis and acyclovir for VZV prophylaxis. Performance status is unchanged with the initiation of therapy she notes she is able to complete all of her ADLs and IADLs independently. 07/14/23: Constipation, the patient denies fevers, chills, night sweats, nausea, vomiting, diarrhea, and significant weight changes. 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 Serologically, her immunofixation demonstrates what is likely the presence of daratumumab. Her light chains remain within normal range with a normalized ratio. Her low level intact monoclonal paraprotein may represent daratumumab. She continues to take aspirin and acyclovir as directed. She complains of no new areas of bony pain. 12/01/23: At the present visit, patient denies fevers, chills, night, nausea, vomiting, diarrhea, significantly. She estimates that she wakes at 5 AM every day and is able to work for several hours before becoming tired in the early afternoon. She has not noticed any lymphadenopathy. She has not noticed any early satiety. Paraprotein labs indicate a complete remission. She remains on lenalidomide 10 mg daily day 1 through 21 of a 28-day cycle and monthly daratumumab. We have taken dexamethasone out of her treatment plan. She also receives monthly zoledronic acid. There is no evidence of renal dysfunction, hypercalcemia, or new onset cytopenias. 12/29/23: pt called in last week for brb from rectum. Has known hemorrhoids. Issue subsided without additional interventions. H/h stable. Denies other symptoms. 01/26/24: Mrs. Dickinson returns for follow up. Continues to tolerate treatment well. She tells me sheis recommended to have a dental procedure where they will take some tissue from her upper gum and put it into an implant on her lower jaw. She said her dentist wanted clearance from Dr. Beatty and will be sending the information to him to review. She wont be scheduled until she has an ok from our team. I advised her this will need to be reviewed once we have the details of what they are planning. In prep for this we will hold zometa until we know definitely if she will have this done or not. Started revlimid 01/15. 02/21/24: The patient here for follows up and tolerating the treatment well. Her lab workup from 02/19/24 shows an atypical region of restricted mobility on SPEP and no M protein on immunofixation. K/Lratio is also normal. IgG is 630 as well. CBC still shows mild pancytopenia. She denies recent fevers, chills, night sweats, nausea, vomiting, diarrhea, voice changes, new rash, or weight loss. She has an implant of the tooth planned for April 03 2024. Was counseled on keeping an eye out on the fatigue 03/22/24: has dental work scheduled for 04/03. Otherwise feels well. Review of systems General: No fever , No chills, and No night sweats HEENT: No lumps, no difficulty chewing or swallowing, no enlarging tongue, no tooth aches. Musculoskeletal: no current pain Hematological: No bleeding or easy bruising. Lymphatic / Immune system: No lymph node enlargement or infection. Cardiovascular: No orthopnea, no dyspnea, no chest pain, no leg edema, no palpitations. Pulmonary: No dyspnea, no wheezing, no cough. Gastrointestinal: see HPI. No nausea, vomitting, diarrhea, constipation, abdominal pain, or blood in stool. PAST MEDICAL HISTORY 02/25/2022: Advance directive discussed with patient Comment: Discussed 02/202203/31/2019: 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 rich plaque 07/30/2019: Current use of proton pump inhibitor 03/29/2019: Elevated fasting blood sugar 03/29/2019: GERD without esophagitis No date: High cholesterol 09/07/2022: History of 2019 novel coronavirus disease (COVID-19) Comment: 02/202203/31/2019: History of squamous cell carcinoma of skin Comment: Right side of nose 03/29/2019: Hypothyroidism, acquired 02/25/2022: Living will in place Comment: DPA: Micaela () 08/17/2020: Medicare annual wellness visit, subsequent Comment: Medical B eligibilty date 11/21/2002 Last done: 02/11/2020 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 02/13/2023: Multiple myeloma (HCC) 03/29/2019: Osteopenia of spine PAST SURGICAL HISTORY No date: CATARACT EXTRACTION HX; Bilateral Comment: 201710/25/2021: COLONOSCOPY Comment: repeat only if needed No date: HYSTERECTOMY Comment: partial - age 40 1976: MASTECTOMY, SIMPLE, COMPLETE; Bilateral Comment: with implants for fibrocystic disease (?) 08/09/2013: NUCLEAR STRESS TEST (WT<440#) ([facility]) Comment: old records: negative 1995: PAST SURGICAL HISTORY OF Comment: breast implants Allergies / intolerances ALLERGIES Allergen Reactions Sulfa (Sulfonamide * Swelling Adhesive Tape-Silic* Rash Medications REVLIMID 10 mg capsule Take 1 capsule (10 MG) by mouth daily at bedtime for 21 days on and 7 days off. levothyroxine (SYNTHROID) 50 mcg tablet Take 1 tablet by mouth once daily. Take on empty stomach. For Thyroid. acyclovir (ZOVIRAX) 400 mg tablet Take 1 tablet by mouth once daily. ondansetron (ZOFRAN) 8 mg tablet Take 1 tablet by mouth once daily as needed for nausea/vomiting. omeprazole (PRILOSEC) 40 mg capsule Take 1 capsule by mouth daily before breakfast. 1/2 hr before meal. pravastatin (PRAVACHOL) 80 mg tablet Take 1 tablet by mouth once daily. cyanocobalamin (VITAMIN B-12) 500 mcg tablet Take 1 tablet by mouth once daily. FERROUS SULFATE ORAL Take 1 tablet by mouth. aspirin, enteric coated (ASPIRIN, ENTERIC COATED) 81 mg EC tablet Take 81 mg by mouth. omega-3 acid ethyl esters (LOVAZA) 1 gram capsule Take 1 g by mouth. calcium carbonate-vitamin D3 (CALTRATE WITH VITAMIN D3) 600 mg(1,500mg) -800 unit tab Take 1 tabletby mouth twice daily. Social History Tobacco Use Smoking status: Never Smokeless tobacco: Never Vaping Use Vaping status: Never Used Substance Use Topics Alcohol use: Not Currently Drug use: Not Currently FAMILY HISTORY Problem Relation Age of Onset Heart Failure Mother Diabetes Sister Hyperlipidemia Sister Thyroid Sister Breast Cancer Maternal Grandmother Diabetes Daughter Hyperlipidemia Sister Alzheimer's Disease No Family History Colon Cancer No Family History Prostate Cancer No Family History Ovarian cancer No Family History Uterine Cancer No Family History Coronary Artery Disease No Family History Hypertension No Family History Kidney Disease No Family History Seizures No Family History Stroke No Family History Physical examination There were no vitals taken for this visit. ECOG PS: 1- Restricted in physically strenuous activity. Carries out light duty. General appearance: Well appearing, alert, in no acute distress, well-hydrated, well nourished. HEENT: No lumps, no macroglossia, no icterus. Mucous membranes pink. Neck: Supple, no adenopathy Lungs: even chest rise and fall. Extremities: No deformities, edema. Laboratory tests WBC (k/uL) Date Value 02/19/2024 3.49 01/23/2024 3.13 12/26/2023 2.98 11/28/2023 3.21 10/31/2023 3.27 10/05/2023 3.75 09/06/2023 4.65 08/09/2023 3.79 07/27/2023 3.23 07/13/2023 4.50 09/06/2021 6.85 03/15/2021 7.83 02/04/2021 6.15 01/31/2020 5.74 Abs Neut (ANC) (k/uL) Date Value 09/06/2021 4.61 03/15/2021 5.08 02/04/2021 3.89 01/31/2020 3.68 Abs Neut (k/uL) Date Value 02/19/2024 2.42 01/23/2024 2.19 12/26/2023 2.00 11/28/2023 2.10 10/31/2023 2.08 10/05/2023 2.65 09/06/2023 3.29 08/09/2023 2.53 07/27/2023 1.67 07/13/2023 3.49 Hemoglobin (g/dL) Date Value 02/19/2024 11.0 01/23/2024 11.3 12/26/2023 11.3 11/28/2023 11.9 10/31/2023 12.4 10/05/2023 11.9 09/06/2023 12.5 08/09/2023 13.2 07/27/2023 12.6 07/13/2023 12.4 09/06/2021 14.0 03/15/2021 14.0 02/04/2021 13.3 01/31/2020 13.3 Platelet Count (k/uL) Date Value 02/19/2024 115 01/23/2024 100 12/26/2023 91 11/28/2023 99 10/31/2023 93 10/05/2023 91 09/06/2023 105 08/09/2023 105 07/27/2023 123 07/13/2023 97 09/06/2021 157 03/15/2021 173 02/04/2021 148 01/31/2020 168 Glucose (mg/dL) Date Value 03/19/2024 96 02/19/2024 121 01/23/2024 89 12/26/2023 104 11/28/2023 113 10/31/2023 115 10/05/2023 134 09/06/2023 105 08/09/2023 100 07/13/2023 100 02/04/2021 98 01/31/2020 90 Creatinine (mg/dL) Date Value 03/19/2024 0.93 02/19/2024 0.94 01/23/2024 0.93 12/26/2023 0.99 11/28/2023 0.96 10/31/2023 0.83 10/05/2023 0.85 09/06/2023 0.83 08/09/2023 0.98 07/13/2023 0.80 02/04/2021 0.72 01/31/2020 0.70 Calcium (mg/dL) Date Value 02/04/2021 9.1 01/31/2020 9.5 Calcium, Total (mg/dL) Date Value 03/19/2024 9.3 02/19/2024 8.2 01/23/2024 8.5 12/26/2023 9.0 11/28/2023 9.5 10/31/2023 10.1 10/05/2023 8.8 09/06/2023 9.4 08/09/2023 8.9 07/13/2023 8.5 M-Protein Concentration (g/dL) Date Value 03/19/2024 0.00 02/19/2024 0.00 01/23/2024 0.16 11/28/2023 0.15 10/31/2023 0.17 10/05/2023 0.19 09/06/2023 0.24 08/09/2023 0.29 07/13/2023 0.31 06/29/2023 0.33 06/14/2023 0.40 05/30/2023 0.39 05/18/2023 0.46 05/04/2023 0.06 04/20/2023 0.13 04/06/2023 0.58 03/29/2023 0.11 03/02/2023 1.20 02/22/2023 1.35 02/15/2023 1.39 01/17/2023 1.19 [place] Free, Serum Date Value 03/19/2024 17.1 mg/L 02/19/2024 16.0 mg/L 01/23/2024 16.7 mg/L 11/28/2023 17.3 mg/L 10/31/2023 15.6 mg/L 10/05/2023 16.2 mg/L 09/06/2023 15.5 mg/L 08/09/2023 16.0 mg/L 07/13/2023 Comment: Unable to assay. Specimen hemolyzed. Rarely, increased serum free light chains levels may not be detected or accurately quantified due to prozone phenomenon or in high viscosity samples using this immunoturbidimetric assay. Correlation with other laboratory results and clinical findings is recommended. The [place] Free Light Chain was performed using the Binding Site Optilite immunoturbidimetric method. Result obtained with different assay methods or kits cannot be used interchangeably. 06/29/2023 21.2 mg/L 06/14/2023 18.6 mg/L 05/30/2023 21.7 mg/L 05/18/2023 20.8 mg/L 05/04/2023 20.8 mg/L 04/20/2023 17.7 mg/L 04/06/2023 21.9 mg/L 03/29/2023 21.4 mg/L 03/02/2023 21.3 mg/L 02/22/2023 30.5 mg/L 02/15/2023 35.2 mg/L [place] Free, Serum (mg/L) Date Value 03/19/2024 18.2 02/19/2024 19.4 01/23/2024 18.4 11/28/2023 16.8 10/31/2023 15.8 10/05/2023 14.7 09/06/2023 13.9 08/09/2023 13.0 07/13/2023 10.4 06/29/2023 11.5 06/14/2023 9.5 05/30/2023 10.4 05/18/2023 10.1 05/04/2023 10.4 04/20/2023 6.6 04/06/2023 13.0 03/29/2023 13.0 03/02/2023 4.6 02/22/2023 11.1 02/15/2023 10.4 Interpretation (MPA) (no units) Date Value 01/23/2024 There is an atypical restricted band present in the IgG and kappa regions. The location of the IgG kappa band suggests the presence of daratumumab, although one cannot rule out the possibility that this band represents a disease-related monoclonal protein. If clinically required, specific testing for daratumumab may be ordered to confirm the presence of the drug in this patient. 11/28/2023 There are two atypical restricted bands present in the IgG and kappa regions. The location of the IgG kappa band suggests the presence of daratamumab. However the second band has a different migration pattern and is unlikely to represent daratumumab. Poorly defined region of restricted mobility in the lambda alejandro. Pattern is less well defined or fainter than typically seen in monoclonal gammopathy. This could represent either an atypical presentation of polyclonal immunoglobulins or the presence of a low level lambda containing monoclonal gammopathy. 10/31/2023 There are two atypical restricted bands present in the IgG and kappa regions. The location of the IgG kappa band suggests the presence of daratamumab. However the second band has a different migration pattern and is unlikely to represent daratumumab. 10/05/2023 There is an atypical restricted band present in the IgG and kappa regions. The location of the IgG kappa band suggests the presence of daratumumab, although one cannot rule out the possibility that this band represents a disease-related monoclonal protein. If clinically required, specific testing for daratumumab may be ordered to confirm the presence of the drug in this patient. Poorly defined region of restricted mobility in IgG and kappa lanes. Pattern is less well defined or fainter than typically seen in monoclonal gammopathy. This could represent either an atypical presentation of polyclonal immunoglobulins or the presence of a low level IgG kappa monoclonal gammopathy. If clinically indicated, urine monoclonal protein analysis and serum free light chain measurements are recommended to evaluate further for monoclonal gammopathy. Clinical correlation is necessary. 09/06/2023 There is an atypical restricted band present in the IgG and kappa regions. The location of the IgG kappa band suggests the presence of daratumumab, although one cannot rule out the possibility that this band represents a disease-related monoclonal protein. If clinically required, specific testing for daratumumab may be ordered to confirm the presence of the drug in this patient. Imaging - MRI 12/29/2022: demonstrating mild expansion and irregular cortical bone in medial left clavicle. - Bone scintography 01/05/2023: increased uptake in left sternoclavicular joint, and medial clavicle. - CT left clavicle/shoulder 01/11/2023: permeative lytic lesion with pathological fracture of left medial clavicle. Low-dose CT scan of the whole body (02/22/2023) 1. Stable expansile, lytic bone lesion with associated cortical destruction involving the medial left clavicle, corresponding with the site of recent biopsy. 2. There is a lytic lesion involving the posterior right ninth rib at the costovertebral joint with disruption of the posterior cortex. 3. No other lytic bone lesions identified. 4. 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 Correlation with prior outside studies, if available, would be helpful. This could be further evaluated with dedicated head CT. 5. Additional findings as above which are stable from the recent chest and abdominopelvic CT exams. Pathology: Image guided biopsy of the mid left clavicle (01/30/2023) FINAL DIAGNOSIS A. Lesion, left clavicular head, biopsy: - Plasma cell neoplasm (kappa). - See comment. CVMisa/mm/02/01/2023 Diagnosis Comment Histologic sections show fragments of blood clot associated with clusters of plasma cells. The plasma cells are intermediate sized, with abundant cytoplasm and round, eccentric nuclei with mature chromatin. Immunohistochemical stains have been performed with appropriately staining controls. The plasma cells are positive for CD138. On the stains for kappa or lambda they appear monotypic kappa. 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 Further classification of this process requires correlation with clinical, radiologic, and laboratory findings. Impression and Plan Cancer Staging No matching staging information was found for the patient. #multiple myeloma Cytogenetic risk category: Standard risk Frailty Score: 0 IMWG Response Criteria: Renal: Normal creatinine, clinically no evidence for renal dysfunction. Infectious diseases: No current infection, no need for prophylaxis Musculoskeletal: Chronic pain, satisfactorily controlled. Bone modifying therapy: zometa Venous thromboembolism risk: No need for DVT prophylaxis control counseling: Does not apply since patient is naturally postmenopausal for greater than24 months or post hysterectomy or post bilateral oophorectomy Neurology: No neurologic symptoms Health maintenance discussed: Regular exercise and Appropriate diet Side effects from current medications: None Mrs. Dickinson is an 88-year-old female with excellent performance status who was recently diagnosedwith a fracture of the left mid clavicle without evidence of trauma to the site. An image guided biopsy revealed plasma cell involvement and a initial protein electrophoresis demonstrated a monoclonal paraprotein 1.19 mg/dL. Cross-sectional imaging revealed no evidence of additional osseous disease. She continues on the AGNES regimen with excellent tolerance of treatment and performance status. Her intact monoclonal paraprotein has fluctuated; however, this is in the context of daratumumab treatment and an underlying CD5+ B-cell clone. Her total IgG level has normalized and there are no other i ndications of symptomatic or biochemical progression. Overall, she is likely at least achieved a VGPR and probably a CR. I am attributing her positive immunofixation to the presence of daratumumab which on testing this time was negative. Her performance status remains excellent. We will continue aspirin, acyclovir, and bone stabilizing therapy. We will continue her treatment as planned with follow-up in 4 weeks. We will hold bone stabilizing therapy for the next 2 months due to impending dentalextractions. Following that, we will resume treatment once every 3 months. She has been instructed to hold aspirin and lenalidomide for 5 days before her upcoming dental procedure. Plan Summary: -Continue daratumumab and lenalidomide (dexamethasone dropped based on Ganes protocol) with lenalidomide 10 mg day 1 through 21 of a 28-day cycle for now -No further dexamethasone with treatment -HOLD for now bone stabilizing therapy pending dental work due on 04/03/24 and hold revlimid 5 day prior to the dental procedure -Hold aspirin and lenalidomide 5 days prior to her dental procedure and resume 24 hours afterward if hemostasis is achieved -Continue acyclovir and aspirin -RTC in 4 weeks I spent 25 minutes in the visit, with more than 50% of the total [id number] time of the visit in counseling / coordination of care. Alvin Balderas APRN.CNP documented in this encounterMag[facility]08-[facility] Nurse Note* Selina Tolliver LPN - 03/22/2024 12:49 PM EDT Additional intake questions: Has the patient had fever, nausea, vomiting, diarrhea, constipation, fatigue for > 1 week? Yes, diarrhea ( 0 times in last 24 hours), fatigue Does the patient have a decreased appetite? No Does patient want to see a Housekeeping Department Worker? No (yes to any of above refer patient to schedulers for dietitian appointment) ) Does patient have any new or increased numbness or tingling of extremities? Yes, cramping to BLE Is patient interested in fertility information? No Does patient need any prescription refills? No Does patient have an advanced directive in place? yes Electronically Signed By: Selina Tolliver LPN [facility] Note* Selina Tolliver LPN - 03/22/2024 12:49 PM EDT Additional intake questions: Has the patient had fever, nausea, vomiting, diarrhea, constipation, fatigue for > 1 week? Yes, diarrhea ( 0 times in last 24 hours), fatigue Does the patient have a decreased appetite? No Does patient want to see a Housekeeping Department Worker? No (yes to any of above refer patient to schedulers for dietitian appointment) ) Does patient have any new or increased numbness or tingling of extremities? Yes, cramping to BLE Is patient interested in fertility information? No Does patient need any prescription refills? No Does patient have an advanced directive in place? yes Electronically Signed By: Selina Tolliver LPN documented in this encounterMag[facility]08-14-2024 Instructions* Patient Instructions* Ruthy Valle PA-C - 03/06/2024 1:59 PM EDT Screening schedule The following prevention plan is recommended: Covid-19 Vaccine( season) due on 08/04/2023 WHAT YOU CAN DO TO PREVENT FALLS Many falls can be prevented. By making some changes, you can lower your chances of falling. Four things YOU can do to prevent falls for you* and your caregiver 1. Begin a regular exercise program Exercise is one of the most important ways to lower your chances of falling. It makes you stronger and helps you feel better. Exercises that improve balance and coordination (like Raheem Chi) are the most helpful. Lack of exercise leads to weakness and increases your chances of falling. Ask your doctor or health care provider about the best type of exercise program for you. 2. Have your health care provider review your medicines Have your doctor or pharmacist review all the medicines you take, even [id number] medicines. As you get older, the way medicines work in your body can change. Some medicines, or combinations of medicines, can make you sleepy or dizzy andcan cause you to fall. 3. Have your vision checked Have your eyes checked by an eye doctor at least once a year. You may be wearing the wrong glasses or have a condition like glaucoma or cataracts that limits your vision. Poor vision can increase your chances of falling. 4. Make your home safer About half of all falls happen at home. To make your home safer: Remove things you can trip over (like papers, books, clothes, and shoes) from stairs and places where you walk. Remove small throw rugs or use double-sided tape to keep the rugs from slipping. Keep items you use often in cabinets you can reach easily without using a step stool. Have grab bars put in next to your toilet and in the tub or shower. Use non-slip mats in the bathtub and on shower floors. Improve the lighting in your home. As you get older, you need brighter lights to see well. Hang light-weight curtains or shades to reduce glare. Have handrails and lights put in on all staircases. Wear shoes both inside and outside the house. Avoid going barefoot or wearing slippers. For more information, contact: Centers for Disease Control and Prevention www.cdc.gov/injury * This information may not apply if you have certain medical conditions. documented in this encounterMag[facility]08-14-2024 History of Present illness Narrative* Ruthy Valle PA-C - 03/06/2024 1:22 PM EDT Images from the original note were not included. Kayley Dickinson is a 88 year old female here for a Medicare wellness visit. Medicare Health Risk Assessment General Health Good Exercise: Minutes/Day Active around house Exercise: Days/Week - Alcohol: Daily Use no Alcohol: Drinks/Day - Alcohol: 6 or more drinks - Feel off balance no Concerns: Teeth/Dentures Yes. But having surgery next month Concerns: Sexual function Troubled by feelings no Frequency: Eating healthy diet yes ADLs requiring help no Safety precautions in home/vehicle yes Smoke, vape, chews tobacco no Difficulty hearing Yes- has appt Difficulty seeing no Current Providers Specialists: I have reviewed specialist-related care of the patient in the medical record. Medical/Family history review Reviewed and updated problem list, medical/surgical/family/social history, medications, and allergies. Opioid use review Opioid Medications (last 90 days) 03/06/2024 23:59 Opioid Medications tramadol HCl 50 mg q 8 H PRN ORAL -Discontinued Patient not taking as of 03/06/2024 1:09 PM Taking as prescribed as of 04/18/2023 12:31 PM Patient not taking as of 03/21/2023 12:46 PM No sig Details Outpatient prescription Patient not taking Prescribed tramadol HCl (last 90 days) Does patient have risk factors for opioid abuse? No Pain overview Current pain concerns and treatment plan reviewed. Patient not currently experiencing pain. Anxiety/Depression screening PHQ-2 Score: 0 (Lower risk for depression) Recommendation: no further intervention at this time Cognitive screening Mini Cog Score: 3 Cognitive screening reviewed and No further action needed (score 3-5). Functional Observation Was the patient's Timed Up & Go test unsteady or ? 12 seconds? No Advance Care Planning Surrogate decision maker and/or advance care plan documented Measurements BP 128/60 (BP Site: Right Arm, BP Position: Sitting, BP Cuff Size: Regular Adult) Pulse 67 Temp36.9 C (98.5 F) Resp 16 Ht 153.5 cm (5' 0.43) Wt 51.4 kg (113 lb 5.1 oz) SpO2 97% BMI 21.81 kg/m Vision Screening: Follows with optometry/ophthalmology Assessment/Plan Medicare annual wellness visit, subsequent (Z00.00) - Counseled on healthy diet and regular exercise - Fall avoidance information provided - Personalized prevention plan provided Chief Complaint Patient presents with: Medicare Wellness Exam HPI Kayley Dickinson is a 88 year old female who presents here today for extensive exam. Patient with hx of Multiple Myeloma, Hypothyroid, Elevated glucose, CAD, GERD, and those as below. Patient denies concerns today. Past medical history, appointments, medications, allergies reviewed. Previous Medical History PAST MEDICAL HISTORY 02/25/2022: Advance directive discussed with patient Comment: Discussed 02/202203/31/2019: 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 rich plaque 07/30/2019: Current use of proton pump inhibitor 03/29/2019: Elevated fasting blood sugar 03/29/2019: GERD without esophagitis No date: High cholesterol 09/07/2022: History of 2019 novel coronavirus disease (COVID-19) Comment: 02/202203/31/2019: History of squamous cell carcinoma of skin Comment: Right side of nose 03/29/2019: Hypothyroidism, acquired 02/25/2022: Living will in place Comment: DPA: Micaela () 08/17/2020: Medicare annual wellness visit, subsequent Comment: Medical B eligibilty date 11/21/2002 Last done: 02/11/2020 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 02/13/2023: Multiple myeloma (HCC) 03/29/2019: Osteopenia of spine Previous Surgical History PAST SURGICAL HISTORY No date: CATARACT EXTRACTION HX; Bilateral Comment: 201710/25/2021: COLONOSCOPY Comment: repeat only if needed No date: HYSTERECTOMY Comment: partial - age 40 1974: MASTECTOMY, SIMPLE, COMPLETE; Bilateral Comment: with implants for fibrocystic disease (?) 08/09/2013: NUCLEAR STRESS TEST (WT<440#) ([facility]ION) Comment: old records: negative 1996: PAST SURGICAL HISTORY OF Comment: breast implants Family History FAMILY HISTORY Problem Relation Age of Onset Heart Failure Mother Diabetes Sister Hyperlipidemia Sister Thyroid Sister Breast Cancer Maternal Grandmother Diabetes Daughter Hyperlipidemia Sister Alzheimer's Disease No Family History Colon Cancer No Family History Prostate Cancer No Family History Ovarian cancer No Family History Uterine Cancer No Family History Coronary Artery Disease No Family History Hypertension No Family History Kidney Disease No Family History Seizures No Family History Stroke No Family History Patient Allergies ALLERGIES Allergen Reactions Sulfa (Sulfonamide * Swelling Adhesive Tape-Silic* Rash Current Medications Current Outpatient Medications on File Prior to Visit Medication Sig REVLIMID 10 mg capsule Take 1 capsule (10 MG) by mouth daily at bedtime for 21 days on and 7 days off. levothyroxine (SYNTHROID) 50 mcg tablet Take 1 tablet by mouth once daily. Take on empty stomach. For Thyroid. acyclovir (ZOVIRAX) 400 mg tablet Take 1 tablet by mouth once daily. ondansetron (ZOFRAN) 8 mg tablet Take 1 tablet by mouth once daily as needed for nausea/vomiting. omeprazole (PRILOSEC) 40 mg capsule Take 1 capsule by mouth daily before breakfast. 1/2 hr before meal. pravastatin (PRAVACHOL) 80 mg tablet Take 1 tablet by mouth once daily. cyanocobalamin (VITAMIN B-12) 500 mcg tablet Take 1 tablet by mouth once daily. FERROUS SULFATE ORAL Take 1 tablet by mouth. aspirin, enteric coated (ASPIRIN, ENTERIC COATED) 81 mg EC tablet Take 81 mg by mouth. omega-3 acid ethyl esters (LOVAZA) 1 gram capsule Take 1 g by mouth. calcium carbonate-vitamin D3 (CALTRATE WITH VITAMIN D3) 600 mg(1,500mg) -800 unit tab Take 1 tabletby mouth twice daily. traMADol (ULTRAM) 50 mg tablet Take 1 tablet by mouth every 8 hours as needed for pain. (Patient not taking: Reported on 03/06/2024) No current facility-administered medications on file prior to visit. Social History Social History Tobacco Use Smoking status: Never Smokeless tobacco: Never Substance Use Topics Alcohol use: Not Currently Drug use: Not Currently Review of Symptoms REVIEW OF SYSTEMS GENERAL: No weight loss, malaise or fevers HEENT: No changes in hearing or vision, no nose bleeds or other nasal problems NECK: Negative for lumps, goiter, pain and significant neck swelling RESPIRATORY: Negative for cough, hemoptysis, wheezing, COPD, dyspnea or shortness of breath CARDIOVASCULAR: Negative for chest pain, leg swelling, CHF or palpitations GI: Negative for abdominal discomfort, blood in stools or black stools, change in bowel habit, heart burn, nausea, vomiting : No history of dysuria, frequency or incontinence MUSCULOSKELETAL: chronic back pain SKIN: Negative for lesions, rash, and itching PSYCH: Negative for sleep disturbance, mood disorder and recent psychosocial stressors HEMATOLOGY/LYMPHOLOGY: Negative for prolonged bleeding, bruising easily or swollen nodes ENDOCRINE: Negative for cold or heat intolerance, polyuria, polydipsia and goiter NEURO: No history of headaches, syncope, paralysis, seizures or tremors EXAM: BP 128/60 (BP Site: Right Arm, BP Position: Sitting, BP Cuff Size: Regular Adult) Pulse 67 Temp36.9 C (98.5 F) Resp 16 Ht 153.5 cm (5' 0.43) Wt 51.4 kg (113 lb 5.1 oz) SpO2 97% BMI 21.81 kg/m Last 3 Encounter Wt Readings: Date: Wt: 03/06/2024 51.4 kg (113 lb 5.1 oz) 02/21/2024 52.1 kg (114 lb 13.8 oz) 01/26/2024 51.7 kg (113 lb 15.7 oz) General Appearance: Well appearing, alert, in no acute distress, well-hydrated, well nourished.. Skin: Deferred- sees derm. Head: Normocephalic, no masses, lesions, tenderness or abnormalities. Eyes: Anicteric sclera. Pupils are equally round and reactive to light. Extraocular movements are intact. . Ears: External ears normal, R canal clear. Left Canal with cerumen and dried blood. Nose/Sinuses: Nares normal, septum midline, mucosa normal, no drainage or sinus tenderness. Oropharynx: Lips, mucosa, and tongue normal, teeth and gums normal, oropharynx normal. Neck: Supple, no adenopathy; thyroid symmetric, normal size, no bruits. Lungs: Lungs clear to auscultation. No wheezing, rhonchi, rales.. Heart: RRR without murmur, gallop, or rubs. No ectopy. Abdomen: Normal abdominal exam, Abdomen soft, non-tender. Bowel sounds normal. No masses, organomegaly. Extremities: No deformities, edema, skin discoloration, clubbing or cyanosis. Good capillary refill. . Peripheral Pulses: Normal. Neurologic: Gait normal. Reflexes normal and symmetric. Sensation grossly intact.. Health Maintenance List Cervical Cancer Screening Never done Depression Screening Never done Anxiety Screening Never done Advance Directive Discussion due on 07/24/2023 Covid-19 Vaccine( season) due on 08/04/2023 Influenza Vaccine(1) due on 03/24/2024 LDL Cholesterol due on 12/25/2024 Diabetes Screening due on 02/18/2027 DTaP,Tdap,Td Vaccine(3 - Td or Tdap) due on 08/20/2031 Bone Density Screening Completed RSV Vaccine Completed Shingrix Vaccine Completed Pneumococcal Vaccine: 65+ Completed HPV Vaccine Aged Out Data reviewed Latest Ref Rng 12/26/2023 Protein, Total 6.3 - 8.0 g/dL 5.9 (L) Albumin 3.9 - 4.9 g/dL 4.1 Calcium 8.5 - 10.2 mg/dL 9.0 Bilirubin, Total 0.2 - 1.3 mg/dL 0.4 Alkaline Phosphatase 34 - 123 U/L 48 AST 13 - 35 U/L 17 ALT 7 - 38 U/L 18 Glucose 74 - 99 mg/dL 104 (H) BUN 7 - 21 mg/dL 19 Creatinine 0.58 - 0.96 mg/dL 0.99 (H) Sodium 136 - 144 mmol/L 140 Potassium 3.7 - 5.1 mmol/L 3.9 Chloride 98 - 107 mmol/L 107 CO2 22 - 30 mmol/L 28 Anion Gap 8 - 15 mmol/L 5 (L) eGFR >=60 mL/min/1.73m 56 (L) Total Cholesterol, Nonfasting <200 mg/dL 102 Triglycerides, Nonfasting <150 mg/dL 56 HDL Cholesterol, Nonfasting >39 mg/dL 39 (L) LDL Cholesterol, Nonfasting <100 mg/dL 52 Non HDL Cholesterol, Nonfasting <130 mg/dL 63 VLDL Cholesterol, Nonfasting <30 mg/dL 11 Total Chol/HDL Ratio, Nonfasting <5.10 mg/dL 2.62 LDL/HDL Ratio, Nonfasting <2.54 mg/dL 1.33 Hemoglobin A1C 4.3 - 5.6 % 5.8 (H) Estimated Average Glucose mg/dL 120 TSH 0.270 - 4.200 mIU/L 1.510 Vitamin B12 232 - 1,245 pg/mL 864 Magnesium 1.7 - 2.3 mg/dL 2.1 Legend: (L) Low (H) High ASSESSMENT/PLAN: 1. Medicare annual wellness visit, subsequent - ICD9: V70.0, ICD10: Z00.00 (primary diagnosis) - Counseled on healthy diet and regular exercise 2. Advance directive discussed with patient - ICD9: V65.49, ICD10: Z71.89 Patient to bring copies 3. Screening for depression - ICD9: V79.0, ICD10: Z13.31 - DEPRESSION SCREENING 4. Encounter for screening examination for other mental health and behavioral disorders - ICD9: V79.8, ICD10: Z13.39 - ANXIETY SCREENING 5. Living will in place - ICD9: V49.89, ICD10: Z78.9 6. Multiple myeloma not having achieved remission (HCC) - ICD9: 203.00, ICD10: C90.00 Continue with specialist 7. Multiple myeloma, remission status unspecified (HCC) - ICD9: 203.00, ICD10: C90.00 Continue with specialists 8. Platelets decreased (HCC) - ICD9: 287.5, ICD10: D69.6 Continue with heme/oc 9. Hypothyroidism, acquired - ICD9: 244.9, ICD10: E03.9 - THYROID STIMULATING HORMONE 10. Elevated fasting blood sugar - ICD9: 790.21, ICD10: R73.01 - HEMOGLOBIN A1C 11. GERD without esophagitis - ICD9: 530.81, ICD10: K21.9 stable 12. Mixed hyperglyceridemia - ICD9: 272.3, ICD10: E78.3 - LIPID PANEL, NONFASTING 13. 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 rich plaque - ICD9: 414.00, 414.3, ICD10: I25.10, I25.83 No new issues. Ruthy Valle PA-C documented in this encounterMag[facility]08-12-[facility]24 History of Present illness Narrative* Ramya Smith RPh - 03/04/2024 5:52 PM EDT [facility] RX SPECIALTY CLINICAL ASSESSMENT - CELGENE REMS HEADER Patient is not a female of reproductive potential Lenalidomide - Patient Not of Reproductive Potential V2 All boxes and spaces must be marked or filled in during counseling with the patient for every prescription. Ramya Smith RPh 10:17 AM March 05, 2024 * Ramya Smith RPh - 03/04/2024 5:52 PM EDT [facility] Specialty Refill Assessment Medication(s): Revlimid Reviewed OV note on 02/20: Her lab workup from 02/19/24 shows an atypical region of restricted mobility on SPEP and no M protein on immunofixation. K/L ratio is also normal. IgG is 630 as well. CBC still shows mild pancytopenia. She has an implant of the tooth planned for April 03 2024. Was counseled on keeping an eye out on the fatigue She has been instructed to hold aspirin and lenalidomidefor 5 days before her upcoming dental procedure and resume 24 hours afterward if hemostasis is achieved Labs reviewed. Next clinic visit scheduled 03/22. Revlimid cycles (28DS: 21 on / 7 off) are as follows: C1D1 03/13/23 C8D1 09/26/23 C9D1 10/27/23 -3 days late d/t illness? C10D1 11/21/23 - per pt C11D1 12/19/23 C12D1 01/16/24 C13D1 02/13/24 C14D1 03/12/24- pt to hold 5 days before 04/03 procedure C15D1 04/04/24- pt to start next cycle 24 hrs after procedure if no issues REMS note: Next survey will be available on or after 07/16/24. Dispensing Note: [facility] will send a dosing calendar with shipment to assist in adherence (including days to hold before dental procedure) Will dispense qty 17 given hold for dental procedure ALLERGIES Allergen Reactions Sulfa (Sulfonamide * Swelling Adhesive Tape-Silic* Rash Patient's current medication list and adherence status to current therapy were reviewed by Specialty Pharmacy clinical pharmacist to identify any new drug interactions or non-compliance to therapy. Therapy continues to be appropriate for disease, patient response, and medical condition. Verification of therapeutic benefit and effectiveness with current therapy was completed. Adverse events, barriers in adherence, and side effects were assessed and addressed if applicable. Will proceed with refill with no changes in therapy - patient progressing towards achieving therapeutic goals based on medication- specific laboratory parameters, disease state markers and outcomes. Ramya Smith, Nicolette PharmD, BCPS Clinical Pharmacist, Oncology [facility] P: , F: Pool: P [facility] Pool #: [id number] Steam Finisher Assessment Patient confirmed: Yes Med/dose confirmed: Yes Supplies needed: No supplies needed Missed doses: No Estimated days supply on hand: 0 Next cycle/dose due: 03/12/24 Copay amount: 0 Copay form of payment: (n/a) Payment confirmed: (n/a) Delivery method: FedEx Signature required: Required (, Medicaid, patient preference) Delivery address: [address] [place] [id number] Delivery date: 03/07/24 Questions or concerns for the pharmacist?: No Did you have any side effects believed to be related to this medication, that resulted in hospitalization?: No Current Outpatient Medications on File Prior to Visit Medication Sig REVLIMID 10 mg capsule Take 1 capsule (10 MG) by mouth daily at bedtime for 21 days on and 7 days off. levothyroxine (SYNTHROID) 50 mcg tablet Take 1 tablet by mouth once daily. Take on empty stomach. For Thyroid. acyclovir (ZOVIRAX) 400 mg tablet Take 1 tablet by mouth once daily. ondansetron (ZOFRAN) 8 mg tablet Take 1 tablet by mouth once daily as needed for nausea/vomiting. omeprazole (PRILOSEC) 40 mg capsule Take 1 capsule by mouth daily before breakfast. 1/2 hr before meal. pravastatin (PRAVACHOL) 80 mg tablet Take 1 tablet by mouth once daily. traMADol (ULTRAM) 50 mg tablet Take 1 tablet by mouth every 8 hours as needed for pain. cyanocobalamin (VITAMIN B-12) 500 mcg tablet Take 1 tablet by mouth once daily. FERROUS SULFATE ORAL Take 1 tablet by mouth. aspirin, enteric coated (ASPIRIN, ENTERIC COATED) 81 mg EC tablet Take 81 mg by mouth. omega-3 acid ethyl esters (LOVAZA) 1 gram capsule Take 1 g by mouth. calcium carbonate-vitamin D3 (CALTRATE WITH VITAMIN D3) 600 mg(1,500mg) -800 unit tab Take 1 tabletby mouth twice daily. No current facility-administered medications on file prior to visit. [facility] RX SPECIALTY CLINICAL ASSESSMENT - HEMATOLOGY ONCOLOGY V6: Ivent complete: No Assessment to use: Refill Lab monitoring inclusive of CBC, Chem-7, and other labs as pertinent for therapy: Yes Chemo cycle timing assessment: Yes Assessment of injection issues: N/A Current medication list (including drug interaction assessment): Yes Experience of adverse reactions to the medication: Yes Date of influenza vaccination reminder: 04/06/2023 Date of most recent vaccination assessment: 04/06/2023 Treatment Plan Information: Diagnosis: Multiple myeloma - newly diagnosed Previous treatment(s): none, newly diagnosed Treatment plan: Revlimid (lenalidomide) + daratumumab + dexamethasone Starting Dose/Titration: Take 1 capsule (10mg) by mouth daily at bedtime for 21 days on, 7 days off. - Renal dose reduction required?: yes - CrCl 47mL/min, usual dose 25mg: PI recommends DR to 10mg daily, may increase to 15mg after 2 cycles if tolerating; dose reduced to 10 mg. Administration: - Take with or without food - Take at the same time each day with water; swallow whole Warnings: include but are not limited to - CONGRESSIONAL AIDE effects (dizziness, fatigue) - Tumor Flare, TLS - Venous and arterial thromboembolism (DVT, PE, TN, stroke) - BBW - Hematologic toxicity (neutropenia and thrombocytopenia) - BBW - Embryo- toxicity - BBW - No blood (or semen) donations during and 4 weeks post discontinuation Adverse reactions: include but are not limited to - Hepatotoxicity - Peripheral edema - Derm rxns (pruritis, skin rash, xeroderma) - Diarrhea > constipation; decrease appetite, abdominal pain - N/V (min to low) - BMS (neutropenia, thrombocytopenia, anemia) - Fatigue, asthenia, arthralgia, headache; back pain, muscle cramps/spasms Monitoring: - CBC with diff (MCL - weekly C1, Q2 weeks C2-4, then monthly; MDS - weekly x8 weeks, then at leastmonthly; MM - weekly x2 cycles; Q2 weeks C3, then monthly; Follicular and marginal zone lymphoma - weekly x3 weeks, Q2 weeks C2-4, then monthly) - sCr, LFTs (periodically) - TSH (baseline, then every 2-3 months) - ECG when clinically indicated - S/S infection, bruising, bleeding, hepatoxocity, 2ndry malignancy, thromboembolism, derm toxicity, TLS - test (for females of reproductive potential) - Hep B screening Drug-Drug Interactions: no interactions identified by Jennifer Baseline: - CBCD 02/22/23 - TSH 1.680 on 02/15/23 - CrCl 47mL/min on 02/22/23 - Hep B screening 02/23/23 Est. Tx Plan Start Date: No information available Estimated Start Date Info: Per Dr. Voss's discretion MDO to confirm DR for current CrCl - dose adjusted to 10 mg daily. Est. Estimated Treatment Duration: Continue until disease progression or unacceptable toxicity. Ramya Smith RPh documented in this encounterMag[facility]07-31-[facility]24 Nurse Note* Sandra Ortega LPN - 02/21/2024 1:38 PM EDT Additional intake questions: Has the patient had fever, nausea, vomiting, diarrhea, constipation, fatigue for > 1 week? No Does the patient have a decreased appetite? No Does patient want to see a Housekeeping Department Worker? No (yes to any of above refer patient to schedulers for dietitian appointment) ) Does patient have any new or increased numbness or tingling of extremities? No Is patient interested in fertility information? No Does patient need any prescription refills? No Does patient have an advanced directive in place? yes at home [facility]07-[facility] Nurse Note* Sandra Ortega LPN - 02/21/2024 1:38 PM EDT Additional intake questions: Has the patient had fever, nausea, vomiting, diarrhea, constipation, fatigue for > 1 week? No Does the patient have a decreased appetite? No Does patient want to see a Housekeeping Department Worker? No (yes to any of above refer patient to schedulers for dietitian appointment) ) Does patient have any new or increased numbness or tingling of extremities? No Is patient interested in fertility information? No Does patient need any prescription refills? No Does patient have an advanced directive in place? yes at home documented in this encounterMag[facility]07-31-2024 History of Present illness Narrative* Jaime Beatty MD - 02/21/2024 1:02 PM EDT Images from the original note were not included. (Elements copied from my note dated 01/26/24, have been reviewed and updated where appropriate, and all reflect current assessment and medical decision making during today's encounter, 2023) [facility] Plasma Cell Disorder Clinic Reason for visit: follow up myeloma. Baseline assessment on initial diagnosis date 2022 Cancer Staging No matching staging information was found for the patient. Symptomatic multiple myeloma, I Related Organ or Tissue Involvement (CRAB) or other Myeloma Defining Event (MDE): Bone disease: At least one lytic bone lesion on XR or CT if BMPC >=10%, at least 2 bone lesions on XR or CT if BMPC<10%, location of lytic lesion(s): Left clavicular head Antecedent plasma cell dyscrasia: No Myeloma FISH panel: Trisomy 15, trisomy 11 Cytogenetics: 46, XX LDH: 175 ISS stage: ISS Stage II Monoclonal proteins at diagnosis: Serum M-spike: 1.19 gm/dL, Involved serum free light chains: 35.2mg/L, and Uninvolved serum free light chains: 10.4 mg/L Total immunoglobulins at diagnosis: IgG = 1980 mg/dl, IgA = 58 mg/dl, IgM = 38 mg/dl Bone marrow plasma cell infiltration: 10-15% plasma cells in the marrow Systemic treatment and disease course - Myeloma response according to: International uniform response criteria, Durie et al. Leukemia 20:1467-73, 2006 and Durie et al. ERRATUM in Leukemia 21:1134, 2007. Update in Debra SV et al. Blood 117: 7621-4916, 2011 Local treatments (radiation, surgery, kyphoplasty) 03/02/2023 to 03/08/2023 The Left clavicle received a total dose of 2000 cGy in 5 fractions at 400 cGy/fraction using 6 MV photons with Wedged Pair technique. History of present illness Mrs. Dickinson is an 87-year-old female with past medical history that includes hypothyroidism, GERD, hyperlipidemia, prediabetes, and possible coronary artery disease who was initially evaluated for left mid clavicular pain and swelling at an urgent care facility on 12/26/2022. A 2 view x-ray of the clavicle obtained on that occasion did not reveal evidence of an osseous abnormality. Of note, the tk bell did not experience antecedent trauma to the clavicle prior to that visit. He was initiated onMedrol Dosepak at the time of discharge. Follow-up MRI of the clavicle on 12/29/2022 demonstrated mild expansion and irregular cortical bone in the medial left clavicle. A bone scintigraphy study on 01/05/2023 demonstrated increased uptake in the left sternoclavicular joint medial clavicle, and a CT of the left clavicle and shoulder on 01/11/2023 demonstrated a permeative lytic lesion with a pathologic fracture of the left medial clavicle. The patient was evaluated in our orthopedic oncology clinic on 01/17/2023. CT scans of the chest abdomen and pelvis did not demonstrate any other evidence of overt osseous disease but did demonstrate hepatic hypodensities for which an MRI of the liver was suggested. An image guided biopsy left clavicle was performed demonstrated sheets of plasma cells. Currently paraprotein work-up prior to the current visit is a serum protein electrophoresis demonstrating a monoclonal spike of 1.19 mg/dL and a spot urine protein electrophoresis that does demonstrate a monoclonal paraprotein. The patient has no evidence of underlying bone marrow involvement in terms of her CBC which is entirely normal. Thereis no evidence of renal dysfunction or hypercalcemia. She denies a personal history of other pathologic fractures. She denies recent fevers, chills, night sweats, nausea, vomiting, diarrhea, voice changes, new rash, or weight loss. She has no personal history of malignancy and no strong family history of thrombophilia, bleeding diathesis, or hematologic cancer. Interim Updates: 03/31/2023: The returns evaluation management of symptomatic myeloma. She denies fevers, chills, night sweat nausea, vomiting, diarrhea, and peripheral neuropathy. She continues on aspirin and acyclovir. Pleated radiation therapy to the left clavicle with no residual pain at the site of the previous fracture. Her paraprotein labs demonstrate normalization of her involved serum free light chain and a decrease in her intact monoclonal paraprotein by approximately 50%. There is no evidence of renal dysfunction or hypercalcemia. Whole body low dose CT scan (see below) demonstrates 1/9 rib lytic lesion in addition to the known clavicular lesion. 05/05/2023: Mrs Dickinson is seen for a scheduled follow up visit. She is accompanied by her . Overall, she reports feeling well. Per her account, she has no pain in the area of her L clavicle.Reports two episodes of mild epistaxis over past month. States she has seen ENT in [place] and was told the recurrent nose bleeds were due to the anatomy of the Right side of her nose. Per patient, she is occasionally constipated and eating prunes usually relieves the constipation. Confirms compliance with Revlimid dosing and schedule. 05/31/23: Mrs. Dickinson is seen for a scheduled follow up visit, accompanied by her . She reports overall feeling well. She woke up this morning with a bruise just to the right of the sternoclavicular junction. She denies fevers, chills, night sweats, nausea, vomiting and diarrhea. She deniesnew rashes. Her paraprotein labs from last visit demonstrate a preserved free light chain ratio fabiola fluctuating intact monoclonal paraprotein by protein electrophoresis. 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 Her IgG level has normalized. She has very mild leukopenia and thrombocytopenia. There is no evidence of worsening anemia. There is no evidence of hypercalcemia. Continues on aspirin for thromboprophylaxis and acyclovir for VZV prophylaxis. Performance status is unchanged with the initiation of therapy she notes she is able to complete all of her ADLs and IADLs independently. 07/14/23: Constipation, the patient denies fevers, chills, night sweats, nausea, vomiting, diarrhea, and significant weight changes. 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 Serologically, her immunofixation demonstrates what is likely the presence of daratumumab. Her light chains remain within normal range with a normalized ratio. Her low level intact monoclonal paraprotein may represent daratumumab. She continues to take aspirin and acyclovir as directed. She complains of no new areas of bony pain. 12/01/23: At the present visit, patient denies fevers, chills, night, nausea, vomiting, diarrhea, significantly. She estimates that she wakes at 5 AM every day and is able to work for several hours before becoming tired in the early afternoon. She has not noticed any lymphadenopathy. She has not noticed any early satiety. Paraprotein labs indicate a complete remission. She remains on lenalidomide 10 mg daily day 1 through 21 of a 28-day cycle and monthly daratumumab. We have taken dexamethasone out of her treatment plan. She also receives monthly zoledronic acid. There is no evidence of renal dysfunction, hypercalcemia, or new onset cytopenias. 12/29/23: pt called in last week for brb from rectum. Has known hemorrhoids. Issue subsided without additional interventions. H/h stable. Denies other symptoms. 01/26/24: Mrs. Dickinson returns for follow up. Continues to tolerate treatment well. She tells me sheis recommended to have a dental procedure where they will take some tissue from her upper gum and put it into an implant on her lower jaw. She said her dentist wanted clearance from Dr. Beatty and will be sending the information to him to review. She wont be scheduled until she has an ok from our team. I advised her this will need to be reviewed once we have the details of what they are planning. In prep for this we will hold zometa until we know definitely if she will have this done or not. Started revlimid 01/15. 02/21/24: The patient here for follows up and tolerating the treatment well. Her lab workup from 02/19/24 shows an atypical region of restricted mobility on SPEP and no M protein on immunofixation. K/Lratio is also normal. IgG is 630 as well. CBC still shows mild pancytopenia. She denies recent fevers, chills, night sweats, nausea, vomiting, diarrhea, voice changes, new rash, or weight loss. She has an implant of the tooth planned for April 03 2024. Was counseled on keeping an eye out on the fatigue Review of systems General: No fever , No chills, and No night sweats HEENT: No lumps, no difficulty chewing or swallowing, no enlarging tongue, no tooth aches. Musculoskeletal: no current pain Hematological: No bleeding or easy bruising. Lymphatic / Immune system: No lymph node enlargement or infection. Cardiovascular: No orthopnea, no dyspnea, no chest pain, no leg edema, no palpitations. Pulmonary: No dyspnea, no wheezing, no cough. Gastrointestinal: see HPI. No nausea, vomitting, diarrhea, constipation, abdominal pain, or blood in stool. PAST MEDICAL HISTORY 02/25/2022: Advance directive discussed with patient Comment: Discussed 02/202203/31/2019: 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 rich plaque 07/30/2019: Current use of proton pump inhibitor 03/29/2019: Elevated fasting blood sugar 03/29/2019: GERD without esophagitis No date: High cholesterol 09/07/2022: History of 2019 novel coronavirus disease (COVID-19) Comment: 02/202203/31/2019: History of squamous cell carcinoma of skin Comment: Right side of nose 03/29/2019: Hypothyroidism, acquired 02/25/2022: Living will in place Comment: DPA: Micaela () 08/17/2020: Medicare annual wellness visit, subsequent Comment: Medical B eligibilty date 11/21/2002 Last done: 02/11/2020 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 02/13/2023: Multiple myeloma (HCC) 03/29/2019: Osteopenia of spine PAST SURGICAL HISTORY No date: CATARACT EXTRACTION HX; Bilateral Comment: 2018 10/25/2021: COLONOSCOPY Comment: repeat only if needed No date: HYSTERECTOMY Comment: partial - age 40 1976: MASTECTOMY, SIMPLE, COMPLETE; Bilateral Comment: with implants for fibrocystic disease (?) 08/09/2013: NUCLEAR STRESS TEST (WT<440#) ([facility]) Comment: old records: negative 1995: PAST SURGICAL HISTORY OF Comment: breast implants Allergies / intolerances ALLERGIES Allergen Reactions Sulfa (Sulfonamide * Swelling Adhesive Tape-Silic* Rash Medications levothyroxine (SYNTHROID) 50 mcg tablet^Take 1 tablet by mouth once daily. Take on empty stomach. For Thyroid.^Disp: 90 tablet^Rfl: 1 REVLIMID 10 mg capsule^Take 1 capsule (10 MG) by mouth daily at bedtime for 21 days on and 7 days off.^Disp: 21 capsule^Rfl: 0 acyclovir (ZOVIRAX) 400 mg tablet^Take 1 tablet by mouth once daily.^Disp: 30 tablet^Rfl: 4 ondansetron (ZOFRAN) 8 mg tablet^Take 1 tablet by mouth once daily as needed for nausea/vomiting.^Disp: 30 tablet^Rfl: 0 omeprazole (PRILOSEC) 40 mg capsule^Take 1 capsule by mouth daily before breakfast. 1/2 hr before meal.^Disp: 90 capsule^Rfl: 1 pravastatin (PRAVACHOL) 80 mg tablet^Take 1 tablet by mouth once daily.^Disp: 90 tablet^Rfl: 1 traMADol (ULTRAM) 50 mg tablet^Take 1 tablet by mouth every 8 hours as needed for pain.^Disp: 21 tablet^Rfl: 0 cyanocobalamin (VITAMIN B-12) 500 mcg tablet^Take 1 tablet by mouth once daily.^Disp: ^Rfl: FERROUS SULFATE ORAL^Take 1 tablet by mouth.^Disp: ^Rfl: aspirin, enteric coated (ASPIRIN, ENTERIC COATED) 81 mg EC tablet^Take 81 mg by mouth.^Disp: ^Rfl: omega-3 acid ethyl esters (LOVAZA) 1 gram capsule^Take 1 g by mouth.^Disp: ^Rfl: calcium carbonate-vitamin D3 (CALTRATE WITH VITAMIN D3) 600 mg(1,500mg) -800 unit tab^Take 1 tabletby mouth twice daily.^Disp: ^Rfl: Social History Tobacco Use Smoking status: Never Smokeless tobacco: Never Substance Use Topics Alcohol use: Not Currently Drug use: Not Currently FAMILY HISTORY Problem Relation Age of Onset Heart Failure Mother Diabetes Sister Hyperlipidemia Sister Thyroid Sister Breast Cancer Maternal Grandmother Diabetes Daughter Hyperlipidemia Sister Alzheimer's Disease No Family History Colon Cancer No Family History Prostate Cancer No Family History Ovarian cancer No Family History Uterine Cancer No Family History Coronary Artery Disease No Family History Hypertension No Family History Kidney Disease No Family History Seizures No Family History Stroke No Family History Physical examination There were no vitals taken for this visit. ECOG PS: 1- Restricted in physically strenuous activity. Carries out light duty. General appearance: Well appearing, alert, in no acute distress, well-hydrated, well nourished. HEENT: No lumps, no macroglossia, no icterus. Mucous membranes pink. Neck: Supple, no adenopathy Lungs: even chest rise and fall. Extremities: No deformities, edema. Laboratory tests WBC (k/uL) Date Value 02/19/2024 3.49 01/23/2024 3.13 12/26/2023 2.98 11/28/2023 3.21 10/31/2023 3.27 10/05/2023 3.75 09/06/2023 4.65 08/09/2023 3.79 07/27/2023 3.23 07/13/2023 4.50 09/06/2021 6.85 03/15/2021 7.83 02/04/2021 6.15 01/31/2020 5.74 Abs Neut (ANC) (k/uL) Date Value 09/06/2021 4.61 03/15/2021 5.08 02/04/2021 3.89 01/31/2020 3.68 Abs Neut (k/uL) Date Value 02/19/2024 2.42 01/23/2024 2.19 12/26/2023 2.00 11/28/2023 2.10 10/31/2023 2.08 10/05/2023 2.65 09/06/2023 3.29 08/09/2023 2.53 07/27/2023 1.67 07/13/2023 3.49 Hemoglobin (g/dL) Date Value 02/19/2024 11.0 01/23/2024 11.3 12/26/2023 11.3 11/28/2023 11.9 10/31/2023 12.4 10/05/2023 11.9 09/06/2023 12.5 08/09/2023 13.2 07/27/2023 12.6 07/13/2023 12.4 09/06/2021 14.0 03/15/2021 14.0 02/04/2021 13.3 01/31/2020 13.3 Platelet Count (k/uL) Date Value 02/19/2024 115 01/23/2024 100 12/26/2023 91 11/28/2023 99 10/31/2023 93 10/05/2023 91 09/06/2023 105 08/09/2023 105 07/27/2023 123 07/13/2023 97 09/06/2021 157 03/15/2021 173 02/04/2021 148 01/31/2020 168 Glucose (mg/dL) Date Value 02/19/2024 121 01/23/2024 89 12/26/2023 104 11/28/2023 113 10/31/2023 115 10/05/2023 134 09/06/2023 105 08/09/2023 100 07/13/2023 100 06/29/2023 99 02/04/2021 98 01/31/2020 90 Creatinine (mg/dL) Date Value 02/19/2024 0.94 01/23/2024 0.93 12/26/2023 0.99 11/28/2023 0.96 10/31/2023 0.83 10/05/2023 0.85 09/06/2023 0.83 08/09/2023 0.98 07/13/2023 0.80 06/29/2023 0.80 02/04/2021 0.72 01/31/2020 0.70 Calcium (mg/dL) Date Value 02/04/2021 9.1 01/31/2020 9.5 Calcium, Total (mg/dL) Date Value 02/19/2024 8.2 01/23/2024 8.5 12/26/2023 9.0 11/28/2023 9.5 10/31/2023 10.1 10/05/2023 8.8 09/06/2023 9.4 08/09/2023 8.9 07/13/2023 8.5 06/29/2023 8.4 M-Protein Concentration (g/dL) Date Value 02/19/2024 0.00 01/23/2024 0.16 11/28/2023 0.15 10/31/2023 0.17 10/05/2023 0.19 09/06/2023 0.24 08/09/2023 0.29 07/13/2023 0.31 06/29/2023 0.33 06/14/2023 0.40 05/30/2023 0.39 05/18/2023 0.46 05/04/2023 0.06 04/20/2023 0.13 04/06/2023 0.58 03/29/2023 0.11 03/02/2023 1.20 02/22/2023 1.35 02/15/2023 1.39 01/17/2023 1.19 [place] Free, Serum Date Value 02/19/2024 16.0 mg/L 01/23/2024 16.7 mg/L 11/28/2023 17.3 mg/L 10/31/2023 15.6 mg/L 10/05/2023 16.2 mg/L 09/06/2023 15.5 mg/L 08/09/2023 16.0 mg/L 07/13/2023 Comment: Unable to assay. Specimen hemolyzed. Rarely, increased serum free light chains levels may not be detected or accurately quantified due to prozone phenomenon or in high viscosity samples using this immunoturbidimetric assay. Correlation with other laboratory results and clinical findings is recommended. The [place] Free Light Chain was performed using the Binding Site Optilite immunoturbidimetric method. Result obtained with different assay methods or kits cannot be used interchangeably. 06/29/2023 21.2 mg/L 06/14/2023 18.6 mg/L 05/30/2023 21.7 mg/L 05/18/2023 20.8 mg/L 05/04/2023 20.8 mg/L 04/20/2023 17.7 mg/L 04/06/2023 21.9 mg/L 03/29/2023 21.4 mg/L 03/02/2023 21.3 mg/L 02/22/2023 30.5 mg/L 02/15/2023 35.2 mg/L [place] Free, Serum (mg/L) Date Value 02/19/2024 19.4 01/23/2024 18.4 11/28/2023 16.8 10/31/2023 15.8 10/05/2023 14.7 09/06/2023 13.9 08/09/2023 13.0 07/13/2023 10.4 06/29/2023 11.5 06/14/2023 9.5 05/30/2023 10.4 05/18/2023 10.1 05/04/2023 10.4 04/20/2023 6.6 04/06/2023 13.0 03/29/2023 13.0 03/02/2023 4.6 02/22/2023 11.1 02/15/2023 10.4 Interpretation (MPA) (no units) Date Value 01/23/2024 There is an atypical restricted band present in the IgG and kappa regions. The location of the IgG kappa band suggests the presence of daratumumab, although one cannot rule out the possibility that this band represents a disease-related monoclonal protein. If clinically required, specific testing for daratumumab may be ordered to confirm the presence of the drug in this patient. 11/28/2023 There are two atypical restricted bands present in the IgG and kappa regions. The location of the IgG kappa band suggests the presence of daratamumab. However the second band has a different migration pattern and is unlikely to represent daratumumab. Poorly defined region of restricted mobility in the lambda alejandro. Pattern is less well defined or fainter than typically seen in monoclonal gammopathy. This could represent either an atypical presentation of polyclonal immunoglobulins or the presence of a low level lambda containing monoclonal gammopathy. 10/31/2023 There are two atypical restricted bands present in the IgG and kappa regions. The location of the IgG kappa band suggests the presence of daratamumab. However the second band has a different migration pattern and is unlikely to represent daratumumab. 10/05/2023 There is an atypical restricted band present in the IgG and kappa regions. The location of the IgG kappa band suggests the presence of daratumumab, although one cannot rule out the possibility that this band represents a disease-related monoclonal protein. If clinically required, specific testing for daratumumab may be ordered to confirm the presence of the drug in this patient. Poorly defined region of restricted mobility in IgG and kappa lanes. Pattern is less well defined or fainter than typically seen in monoclonal gammopathy. This could represent either an atypical presentation of polyclonal immunoglobulins or the presence of a low level IgG kappa monoclonal gammopathy. If clinically indicated, urine monoclonal protein analysis and serum free light chain measurements are recommended to evaluate further for monoclonal gammopathy. Clinical correlation is necessary. 09/06/2023 There is an atypical restricted band present in the IgG and kappa regions. The location of the IgG kappa band suggests the presence of daratumumab, although one cannot rule out the possibility that this band represents a disease-related monoclonal protein. If clinically required, specific testing for daratumumab may be ordered to confirm the presence of the drug in this patient. Imaging - MRI 12/29/2022: demonstrating mild expansion and irregular cortical bone in medial left clavicle. - Bone scintography 01/05/2023: increased uptake in left sternoclavicular joint, and medial clavicle. - CT left clavicle/shoulder 01/11/2023: permeative lytic lesion with pathological fracture of left medial clavicle. Low-dose CT scan of the whole body (02/22/2023) 1. Stable expansile, lytic bone lesion with associated cortical destruction involving the medial left clavicle, corresponding with the site of recent biopsy. 2. There is a lytic lesion involving the posterior right ninth rib at the costovertebral joint with disruption of the posterior cortex. 3. No other lytic bone lesions identified. 4. 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 Correlation with prior outside studies, if available, would be helpful. This could be further evaluated with dedicated head CT. 5. Additional findings as above which are stable from the recent chest and abdominopelvic CT exams. Pathology: Image guided biopsy of the mid left clavicle (01/30/2023) FINAL DIAGNOSIS A. Lesion, left clavicular head, biopsy: - Plasma cell neoplasm (kappa). - See comment. CVMisa/mm/02/01/2023 Diagnosis Comment Histologic sections show fragments of blood clot associated with clusters of plasma cells. The plasma cells are intermediate sized, with abundant cytoplasm and round, eccentric nuclei with mature chromatin. Immunohistochemical stains have been performed with appropriately staining controls. The plasma cells are positive for CD138. On the stains for kappa or lambda they appear monotypic kappa. 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 Further classification of this process requires correlation with clinical, radiologic, and laboratory findings. Impression and Plan Cancer Staging No matching staging information was found for the patient. #multiple myeloma Cytogenetic risk category: Standard risk Frailty Score: 0 IMWG Response Criteria: Renal: Normal creatinine, clinically no evidence for renal dysfunction. Infectious diseases: No current infection, no need for prophylaxis Musculoskeletal: Chronic pain, satisfactorily controlled. Bone modifying therapy: zometa Venous thromboembolism risk: No need for DVT prophylaxis control counseling: Does not apply since patient is naturally postmenopausal for greater than24 months or post hysterectomy or post bilateral oophorectomy Neurology: No neurologic symptoms Health maintenance discussed: Regular exercise and Appropriate diet Side effects from current medications: None Mrs. Dickinson is an 88-year-old female with excellent performance status who was recently diagnosedwith a fracture of the left mid clavicle without evidence of trauma to the site. An image guided biopsy revealed plasma cell involvement and a initial protein electrophoresis demonstrated a monoclonal paraprotein 1.19 mg/dL. Cross-sectional imaging revealed no evidence of additional osseous disease. She continues on the AGNES regimen with excellent tolerance of treatment and performance status. Her intact monoclonal paraprotein has fluctuated; however, this is in the context of daratumumab treatment and an underlying CD5+ B-cell clone. Her total IgG level has normalized and there are no other i ndications of symptomatic or biochemical progression. Overall, she is likely at least achieved a VGPR and probably a CR. I am attributing her positive immunofixation to the presence of daratumumab which on testing this time was negative. Her performance status remains excellent. We will continue aspirin, acyclovir, and bone stabilizing therapy. We will continue her treatment as planned with follow-up in 4 weeks. We will hold bone stabilizing therapy for the next 2 months due to impending dentalextractions. Following that, we will resume treatment once every 3 months. She has been instructed to hold aspirin and lenalidomide for 5 days before her upcoming dental procedure. Plan Summary: -Continue daratumumab and lenalidomide (dexamethasone dropped based on Agnes protocol) with lenalidomide 10 mg day 1 through 21 of a 28-day cycle for now -No further dexamethasone with treatment -HOLD for now bone stabilizing therapy pending dental work due on 04/03/24 and hold revlimid 5 day prior to the dental procedure (next Tx is scheduled for 21 of March) -Hold aspirin and lenalidomide 5 days prior to her dental procedure and resume 24 hours afterward if hemostasis is achieved -Continue acyclovir and aspirin -Follow-up paraprotein labs from [facility] in 4 weeks Jaime Beatty MD Medical Decision Making: Problems: High: Illness/injury w/ threat to life/body function Data: Unique test result(s) reviewed: 3+ Unique test(s) ordered: 3+ Risk: High: Drug therapy requiring intensive monitoring Medical Decision Making Level: 5 - High [facility] Telephone encounter Note * Telephone Encounter - Priscila Vicente LPN - 02/20/2024 9:42 AM EDT Prescription Refill Information The patient has been identified by name and date of : Yes Caregiver verified no other encounters exist for this prescription request: Yes Caregiver confirmed with patient/requestor that no other refills are due, in the near future, with this provider at this time: Yes The last office visit in the department: 09/19/23 Does the patient have a future office visit with this provider/department: Yes 03/06/24 Requested Prescriptions Pending Prescriptions Disp Refills levothyroxine (SYNTHROID) 50 mcg tablet 90 tablet 1 Sig: Take 1 tablet by mouth once daily. Take on empty stomach. For Thyroid. Priscila Vicente LPN February 20, 2024 9:42 AM [facility]07[facility]30[facility] Miscellaneous Notes* Telephone Encounter - Priscila Vicente LPN - 02/20/2024 9:42 AM EDT Prescription Refill Information The patient has been identified by name and date of : Yes Caregiver verified no other encounters exist for this prescription request: Yes Caregiver confirmed with patient/requestor that no other refills are due, in the near future, with this provider at this time: Yes The last office visit in the department: 09/19/23 Does the patient have a future office visit with this provider/department: Yes 03/06/24 Requested Prescriptions Pending Prescriptions Disp Refills levothyroxine (SYNTHROID) 50 mcg tablet 90 tablet 1 Sig: Take 1 tablet by mouth once daily. Take on empty stomach. For Thyroid. Priscila Vicente LPN February 20, 2024 9:42 AM documented in [facility] encounterMag[facility] History of Present illness Narrative* Ramya Smith RPh - 02/06/2024 1:18 PM EDT [facility] CLINICAL ASSESSMENT - CELGENE REMS HEADER Patient is not a female of reproductive potential Lenalidomide - Patient Not of Reproductive Potential V2 All boxes and spaces must be marked or filled in during counseling with the patient for every prescription. Ramya Smith RPh 2:01 PM February 06, 2024 * Ramya Smith RPh - 02/06/2024 1:18 PM EDT [facility] Refill Assessment Medication(s): Revlimid Reviewed OV note on 01/25- Zometa will be held in anticipation of upcoming dental procedure (TBD). Labs reviewed- M-protein and serology stable. Next clinic visit scheduled 02/20. Labs 02/19. ALLERGIES Allergen Reactions Sulfa (Sulfonamide * Swelling Adhesive Tape-Silic* Rash Revlimid cycles (28DS: 21 on / 7 off) are as follows: C1D1 03/13/23 C8D1 09/26/23 C9D1 10/27/23 -3 days late d/t illness? C10D1 11/21/23 - per pt C11D1 12/19/23 C12D1 01/16/24 C13D1 02/13/24 C14D1 03/12/24 REMS note: Next survey will be available on or after 07/16/24. Dispensing Note: [facility] will send a dosing calendar with shipment to assist in adherence. Patient's current medication list and adherence status to current therapy were reviewed by Specialty Pharmacy clinical pharmacist to identify any new drug interactions or non-compliance to therapy. Therapy continues to be appropriate for disease, patient response, and medical condition. Verification of therapeutic benefit and effectiveness with current therapy was completed. Adverse events, barriers in adherence, and side effects were assessed and addressed if applicable. Will proceed with refill with no changes in therapy - patient progressing towards achieving therapeutic goals based on medication- specific laboratory parameters, disease state markers and outcomes. Steam Finisher Assessment Patient confirmed: Yes Med/dose confirmed: Yes Supplies needed: No supplies needed Missed doses: No Estimated days supply on hand: 0 Next cycle/dose due: 02/13/24 Copay amount: 0 Copay form of payment: (n/a) Payment confirmed: (n/a) Delivery method: FedEx Signature required: Required (, Medicaid, patient preference) [facility] [id number] Delivery date: 02/08/24 Questions or concerns for the pharmacist?: No Did you have any side effects believed to be related to this medication, that resulted in hospitalization?: No Current Outpatient Medications on File Prior to Visit Medication Sig REVLIMID 10 mg capsule Take 1 capsule (10 MG) by mouth daily at bedtime for 21 days on and 7 days off. acyclovir (ZOVIRAX) 400 mg tablet Take 1 tablet by mouth once daily. ondansetron (ZOFRAN) 8 mg tablet Take 1 tablet by mouth once daily as needed for nausea/vomiting. omeprazole (PRILOSEC) 40 mg capsule Take 1 capsule by mouth daily before breakfast. 1/2 hr before meal. pravastatin (PRAVACHOL) 80 mg tablet Take 1 tablet by mouth once daily. levothyroxine (SYNTHROID) 50 mcg tablet Take 1 tablet by mouth once daily. Take on empty stomach. For Thyroid. traMADol (ULTRAM) 50 mg tablet Take 1 tablet by mouth every 8 hours as needed for pain. cyanocobalamin (VITAMIN B-12) 500 mcg tablet Take 1 tablet by mouth once daily. FERROUS SULFATE ORAL Take 1 tablet by mouth. aspirin, enteric coated (ASPIRIN, ENTERIC COATED) 81 mg EC tablet Take 81 mg by mouth. omega-3 acid ethyl esters (LOVAZA) 1 gram capsule Take 1 g by mouth. calcium carbonate-vitamin D3 (CALTRATE WITH VITAMIN D3) 600 mg(1,500mg) -800 unit tab Take 1 tabletby mouth twice daily. No current facility-administered medications on file prior to visit. [facility] Visit Assessment - Hematology/Oncology: Ivent complete: No Assessment to use: Refill Vaccination Assessment: Date of influenza vaccination reminder: 04/06/2023 Date of most recent vaccination assessment: 04/06/2023 Treatment Plan Information: Treatment Plan Information: Diagnosis: Multiple myeloma - newly diagnosed Previous treatment(s): none, newly diagnosed Treatment plan: Revlimid (lenalidomide) + daratumumab + dexamethasone Starting Dose/Titration: Take 1 capsule (10mg) by mouth daily at bedtime for 21 days on, 7 days off. - Renal dose reduction required?: yes - CrCl 47mL/min, usual dose 25mg: PI recommends DR to 10mg daily, may increase to 15mg after 2 cycles if tolerating; dose reduced to 10 mg. Administration: - Take with or without food - Take at the same time each day with water; swallow whole Warnings: include but are not limited to - CONGRESSIONAL AIDE effects (dizziness, fatigue) - Tumor Flare, TLS - Venous and arterial thromboembolism (DVT, PE, TN, stroke) - BBW - Hematologic toxicity (neutropenia and thrombocytopenia) - BBW - Embryo- toxicity - BBW - No blood (or semen) donations during and 4 weeks post discontinuation Adverse reactions: include but are not limited to - Hepatotoxicity - Peripheral edema - Derm rxns (pruritis, skin rash, xeroderma) - Diarrhea > constipation; decrease appetite, abdominal pain - N/V (min to low) - BMS (neutropenia, thrombocytopenia, anemia) - Fatigue, asthenia, arthralgia, headache; back pain, muscle cramps/spasms Monitoring: - CBC with diff (MCL - weekly C1, Q2 weeks C2-4, then monthly; MDS - weekly x8 weeks, then at leastmonthly; MM - weekly x2 cycles; Q2 weeks C3, then monthly; Follicular and marginal zone lymphoma - weekly x3 weeks, Q2 weeks C2-4, then monthly) - sCr, LFTs (periodically) - TSH (baseline, then every 2-3 months) - ECG when clinically indicated - S/S infection, bruising, bleeding, hepatoxocity, 2ndry malignancy, thromboembolism, derm toxicity, TLS - test (for females of reproductive potential) - Hep B screening Drug-Drug Interactions: no interactions identified by Jennifer Baseline: - CBCD 02/22/23 - TSH 1.680 on 02/15/23 - CrCl 47mL/min on 02/22/23 - Hep B screening 02/23/23 Estimated Start Date Info: Per Dr. Voss's discretion MDO to confirm DR for current CrCl - dose adjusted to 10 mg daily. Estimated Treatment Duration: Continue until disease progression or unacceptable toxicity. Refill Assessment: Lab monitoring inclusive of CBC, Chem-7, and other labs as pertinent for therapy: Yes Chemo cycle timing assessment: Yes Screening for infection: Yes Adverse reactions and mitigation: Yes Medication changes and interaction assessment: Yes Assessment of injection issues: N/A Additional Assessment: Assessment of continued need for prophylactic medications at regular intervals: Yes Radiology procedure timing to assess for disease progression: Yes Scheduled future appointments: Yes Ramya Smith RPh PharmD, BCPS Clinical Pharmacist, Oncology [facility] P: , F: Pool: P [facility] Pool #: [id number] documented in this encounterMagruder Hospital07-05-2024 History of Present illness Narrative* Alvin Balderas APRN.[employer] - 01/26/2024 1:00 PM EDT Images from the original note were not included. (Elements copied from my note dated 12/29/23, have been reviewed and updated where appropriate, and all reflect current assessment and medical decision making during today's encounter, January 26, 2024) [facility] Plasma Cell Disorder Clinic Reason for visit: follow up myeloma. Baseline assessment on initial diagnosis date 2022 Cancer Staging No matching staging information was found for the patient. Symptomatic multiple myeloma, I Related Organ or Tissue Involvement (CRAB) or other Myeloma Defining Event (MDE): Bone disease: At least one lytic bone lesion on XR or CT if BMPC >=10%, at least 2 bone lesions on XR or CT if BMPC<10%, location of lytic lesion(s): Left clavicular head Antecedent plasma cell dyscrasia: No Myeloma FISH panel: Trisomy 15, trisomy 11 Cytogenetics: 46, XX LDH: 175 ISS stage: ISS Stage II Monoclonal proteins at diagnosis: Serum M-spike: 1.19 gm/dL, Involved serum free light chains: 35.2mg/L, and Uninvolved serum free light chains: 10.4 mg/L Total immunoglobulins at diagnosis: IgG = 1980 mg/dl, IgA = 58 mg/dl, IgM = 38 mg/dl Bone marrow plasma cell infiltration: 10-15% plasma cells in the marrow Systemic treatment and disease course - Myeloma response according to: International uniform response criteria, Durie et al. Leukemia 20:1467-73, 2006 and Moraie et al. ERRATUM in Leukemia 21:1134, 2007. Update in Debra SV et al. Blood 117: 1650-6750, 2011 Local treatments (radiation, surgery, kyphoplasty) 03/02/2023 to 03/08/2023 The Left clavicle received a total dose of 2000 cGy in 5 fractions at 400 cGy/fraction using 6 MV photons with Wedged Pair technique. History of present illness Mrs. Dickinson is an 87-year-old female with past medical history that includes hypothyroidism, GERD, hyperlipidemia, prediabetes, and possible coronary artery disease who was initially evaluated for left mid clavicular pain and swelling at an urgent care facility on 12/26/2022. A 2 view x-ray of the clavicle obtained on that occasion did not reveal evidence of an osseous abnormality. Of note, the tk bell did not experience antecedent trauma to the clavicle prior to that visit. He was initiated onMedrol Dosepak at the time of discharge. Follow-up MRI of the clavicle on 12/29/2022 demonstrated mild expansion and irregular cortical bone in the medial left clavicle. A bone scintigraphy study on 01/05/2023 demonstrated increased uptake in the left sternoclavicular joint medial clavicle, and a CT of the left clavicle and shoulder on 01/11/2023 demonstrated a permeative lytic lesion with a pathologic fracture of the left medial clavicle. The patient was evaluated in our orthopedic oncology clinic on 01/17/2023. CT scans of the chest abdomen and pelvis did not demonstrate any other evidence of overt osseous disease but did demonstrate hepatic hypodensities for which an MRI of the liver was suggested. An image guided biopsy left clavicle was performed demonstrated sheets of plasma cells. Currently paraprotein work-up prior to the current visit is a serum protein electrophoresis demonstrating a monoclonal spike of 1.19 mg/dL and a spot urine protein electrophoresis that does demonstrate a monoclonal paraprotein. The patient has no evidence of underlying bone marrow involvement in terms of her CBC which is entirely normal. Thereis no evidence of renal dysfunction or hypercalcemia. She denies a personal history of other pathologic fractures. She denies recent fevers, chills, night sweats, nausea, vomiting, diarrhea, voice changes, new rash, or weight loss. She has no personal history of malignancy and no strong family history of thrombophilia, bleeding diathesis, or hematologic cancer. Interim Updates: 03/31/2023: The returns evaluation management of symptomatic myeloma. She denies fevers, chills, night sweat nausea, vomiting, diarrhea, and peripheral neuropathy. She continues on aspirin and acyclovir. Pleated radiation therapy to the left clavicle with no residual pain at the site of the previous fracture. Her paraprotein labs demonstrate normalization of her involved serum free light chain and a decrease in her intact monoclonal paraprotein by approximately 50%. There is no evidence of renal dysfunction or hypercalcemia. Whole body low dose CT scan (see below) demonstrates 1/9 rib lytic lesion in addition to the known clavicular lesion. 05/05/2023: Mrs Dickinson is seen for a scheduled follow up visit. She is accompanied by her . Overall, she reports feeling well. Per her account, she has no pain in the area of her L clavicle.Reports two episodes of mild epistaxis over past month. States she has seen ENT in [place] and was told the recurrent nose bleeds were due to the anatomy of the Right side of her nose. Per patient, she is occasionally constipated and eating prunes usually relieves the constipation. Confirms compliance with Revlimid dosing and schedule. 05/31/23: Mrs. Dickinson is seen for a scheduled follow up visit, accompanied by her . She reports overall feeling well. She woke up this morning with a bruise just to the right of the sternoclavicular junction. She denies fevers, chills, night sweats, nausea, vomiting and diarrhea. She deniesnew rashes. Her paraprotein labs from last visit demonstrate a preserved free light chain ratio fabiola fluctuating intact monoclonal paraprotein by protein electrophoresis. 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 Her IgG level has normalized. She has very mild leukopenia and thrombocytopenia. There is no evidence of worsening anemia. There is no evidence of hypercalcemia. Continues on aspirin for thromboprophylaxis and acyclovir for VZV prophylaxis. Performance status is unchanged with the initiation of therapy she notes she is able to complete all of her ADLs and IADLs independently. 07/14/23: Constipation, the patient denies fevers, chills, night sweats, nausea, vomiting, diarrhea, and significant weight changes. 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 Serologically, her immunofixation demonstrates what is likely the presence of daratumumab. Her light chains remain within normal range with a normalized ratio. Her low level intact monoclonal paraprotein may represent daratumumab. She continues to take aspirin and acyclovir as directed. She complains of no new areas of bony pain. 12/01/23: At the present visit, patient denies fevers, chills, night, nausea, vomiting, diarrhea, significantly. She estimates that she wakes at 5 AM every day and is able to work for several hours before becoming tired in the early afternoon. She has not noticed any lymphadenopathy. She has not noticed any early satiety. Paraprotein labs indicate a complete remission. She remains on lenalidomide 10 mg daily day 1 through 21 of a 28-day cycle and monthly daratumumab. We have taken dexamethasone out of her treatment plan. She also receives monthly zoledronic acid. There is no evidence of renal dysfunction, hypercalcemia, or new onset cytopenias. 12/29/23: pt called in last week for brb from rectum. Has known hemorrhoids. Issue subsided without additional interventions. H/h stable. Denies other symptoms. 01/26/24: Mrs. Dickinson returns for follow up. Continues to tolerate treatment well. She tells me sheis recommended to have a dental procedure where they will take some tissue from her upper gum and put it into an implant on her lower jaw. She said her dentist wanted clearance from Dr. Beatty and will be sending the information to him to review. She wont be scheduled until she has an ok from our team. I advised her this will need to be reviewed once we have the details of what they are planning. In prep for this we will hold zometa until we know definitely if she will have this done or not. Started revlimid 01/15. Review of systems General: No fever , No chills, and No night sweats HEENT: No lumps, no difficulty chewing or swallowing, no enlarging tongue, no tooth aches. Musculoskeletal: no current pain Hematological: No bleeding or easy bruising. Lymphatic / Immune system: No lymph node enlargement or infection. Cardiovascular: No orthopnea, no dyspnea, no chest pain, no leg edema, no palpitations. Pulmonary: No dyspnea, no wheezing, no cough. Gastrointestinal: see HPI. No nausea, vomitting, diarrhea, constipation, abdominal pain, or blood in stool. PAST MEDICAL HISTORY Diagnosis Date Advance directive discussed with patient 02/25/2022 Discussed 02/2022 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 rich plaque 03/31/2019 Current use of proton pump inhibitor 07/30/2019 Elevated fasting blood sugar 03/29/2019 GERD without esophagitis 03/29/2019 High cholesterol History of 2019 novel coronavirus disease (COVID-19) 09/07/202202/2022 History of squamous cell carcinoma of skin 03/31/2019 Right side of nose Hypothyroidism, acquired 03/29/[address] 02/25/2022 DPA: Micaela () Medicare annual wellness visit, subsequent 08/17/2020 Medical B eligibilty date 11/21/2002 Last done: 02/11/2020 Mixed hyperglyceridemia 03/29/2019 Multiple myeloma (HCC) 02/13/2023 Osteopenia of spine 03/29/2019 PAST SURGICAL HISTORY Procedure Laterality Date CATARACT EXTRACTION HX Bilateral 2017 COLONOSCOPY 10/25/2021 repeat only if needed HYSTERECTOMY partial - age 40 MASTECTOMY, SIMPLE, COMPLETE Bilateral 1977 with implants for fibrocystic disease (?) NUCLEAR STRESS TEST (WT<440#) (UNION) 08/09/2013 old records: negative PAST SURGICAL HISTORY OF 1995 breast implants Allergies / intolerances ALLERGIES Allergen Reactions Sulfa (Sulfonamide * Swelling Adhesive Tape-Silic* Rash Medications REVLIMID 10 mg capsule Take 1 capsule (10 MG) by mouth daily at bedtime for 21 days on and 7 days off. acyclovir (ZOVIRAX) 400 mg tablet Take 1 tablet by mouth once daily. ondansetron (ZOFRAN) 8 mg tablet Take 1 tablet by mouth once daily as needed for nausea/vomiting. omeprazole (PRILOSEC) 40 mg capsule Take 1 capsule by mouth daily before breakfast. 1/2 hr before meal. pravastatin (PRAVACHOL) 80 mg tablet Take 1 tablet by mouth once daily. levothyroxine (SYNTHROID) 50 mcg tablet Take 1 tablet by mouth once daily. Take on empty stomach. For Thyroid. traMADol (ULTRAM) 50 mg tablet Take 1 tablet by mouth every 8 hours as needed for pain. cyanocobalamin (VITAMIN B-12) 500 mcg tablet Take 1 tablet by mouth once daily. FERROUS SULFATE ORAL Take 1 tablet by mouth. aspirin, enteric coated (ASPIRIN, ENTERIC COATED) 81 mg EC tablet Take 81 mg by mouth. omega-3 acid ethyl esters (LOVAZA) 1 gram capsule Take 1 g by mouth. calcium carbonate-vitamin D3 (CALTRATE WITH VITAMIN D3) 600 mg(1,500mg) -800 unit tab Take 1 tabletby mouth twice daily. Social History Tobacco Use Smoking status: Never Smokeless tobacco: Never Substance Use Topics Alcohol use: Not Currently Drug use: Not Currently FAMILY HISTORY Problem Relation Age of Onset Heart Failure Mother Diabetes Sister Hyperlipidemia Sister Thyroid Sister Breast Cancer Maternal Grandmother Diabetes Daughter Hyperlipidemia Sister Alzheimer's Disease No Family History Colon Cancer No Family History Prostate Cancer No Family History Ovarian cancer No Family History Uterine Cancer No Family History Coronary Artery Disease No Family History Hypertension No Family History Kidney Disease No Family History Seizures No Family History Stroke No Family History Physical examination BP 150/56 Pulse 65 Temp 36.3 C (97.4 F) (Temporal) Resp 16 Wt 51.7 kg (113 lb 15.7 oz) SpO2 100% BMI 21.55 kg/m ECOG PS: 1- Restricted in physically strenuous activity. Carries out light duty. General appearance: Well appearing, alert, in no acute distress, well-hydrated, well nourished. HEENT: No lumps, no macroglossia, no icterus. Mucous membranes pink. Neck: Supple, no adenopathy Lungs: even chest rise and fall. Extremities: No deformities, edema. Laboratory tests WBC (k/uL) Date Value 01/23/2024 3.13 12/26/2023 2.98 11/28/2023 3.21 10/31/2023 3.27 10/05/2023 3.75 09/06/2023 4.65 08/09/2023 3.79 07/27/2023 3.23 07/13/2023 4.50 06/29/2023 3.19 09/06/2021 6.85 03/15/2021 7.83 02/04/2021 6.15 01/31/2020 5.74 Abs Neut (ANC) (k/uL) Date Value 09/06/2021 4.61 03/15/2021 5.08 02/04/2021 3.89 01/31/2020 3.68 Abs Neut (k/uL) Date Value 01/23/2024 2.19 12/26/2023 2.00 11/28/2023 2.10 10/31/2023 2.08 10/05/2023 2.65 09/06/2023 3.29 08/09/2023 2.53 07/27/2023 1.67 07/13/2023 3.49 06/29/2023 1.75 Hemoglobin (g/dL) Date Value 01/23/2024 11.3 12/26/2023 11.3 11/28/2023 11.9 10/31/2023 12.4 10/05/2023 11.9 09/06/2023 12.5 08/09/2023 13.2 07/27/2023 12.6 07/13/2023 12.4 06/29/2023 11.6 09/06/2021 14.0 03/15/2021 14.0 02/04/2021 13.3 01/31/2020 13.3 Platelet Count (k/uL) Date Value 01/23/2024 100 12/26/2023 91 11/28/2023 99 10/31/2023 93 10/05/2023 91 09/06/2023 105 08/09/2023 105 07/27/2023 123 07/13/2023 97 06/29/2023 121 09/06/2021 157 03/15/2021 173 02/04/2021 148 01/31/2020 168 Glucose (mg/dL) Date Value 01/23/2024 89 12/26/2023 104 11/28/2023 113 10/31/2023 115 10/05/2023 134 09/06/2023 105 08/09/2023 100 07/13/2023 100 06/29/2023 99 06/14/2023 163 02/04/2021 98 01/31/2020 90 Creatinine (mg/dL) Date Value 01/23/2024 0.93 12/26/2023 0.99 11/28/2023 0.96 10/31/2023 0.83 10/05/2023 0.85 09/06/2023 0.83 08/09/2023 0.98 07/13/2023 0.80 06/29/2023 0.80 06/14/2023 0.72 02/04/2021 0.72 01/31/2020 0.70 Calcium (mg/dL) Date Value 02/04/2021 9.1 01/31/2020 9.5 Calcium, Total (mg/dL) Date Value 01/23/2024 8.5 12/26/2023 9.0 11/28/2023 9.5 10/31/2023 10.1 10/05/2023 8.8 09/06/2023 9.4 08/09/2023 8.9 07/13/2023 8.5 06/29/2023 8.4 06/14/2023 8.6 M-Protein Concentration (g/dL) Date Value 11/28/2023 0.15 10/31/2023 0.17 10/05/2023 0.19 09/06/2023 0.24 08/09/2023 0.29 07/13/2023 0.31 06/29/2023 0.33 06/14/2023 0.40 05/30/2023 0.39 05/18/2023 0.46 05/04/2023 0.06 04/20/2023 0.13 04/06/2023 0.58 03/29/2023 0.11 03/02/2023 1.20 02/22/2023 1.35 02/15/2023 1.39 01/17/2023 1.19 [place] Free, Serum Date Value 01/23/2024 16.7 mg/L 11/28/2023 17.3 mg/L 10/31/2023 15.6 mg/L 10/05/2023 16.2 mg/L 09/06/2023 15.5 mg/L 08/09/2023 16.0 mg/L 07/13/2023 Comment: Unable to assay. Specimen hemolyzed. Rarely, increased serum free light chains levels may not be detected or accurately quantified due to prozone phenomenon or in high viscosity samples using this immunoturbidimetric assay. Correlation with other laboratory results and clinical findings is recommended. The [place] Free Light Chain was performed using the Binding Site Optilite immunoturbidimetric method. Result obtained with different assay methods or kits cannot be used interchangeably. 06/29/2023 21.2 mg/L 06/14/2023 18.6 mg/L 05/30/2023 21.7 mg/L 05/18/2023 20.8 mg/L 05/04/2023 20.8 mg/L 04/20/2023 17.7 mg/L 04/06/2023 21.9 mg/L 03/29/2023 21.4 mg/L 03/02/2023 21.3 mg/L 02/22/2023 30.5 mg/L 02/15/2023 35.2 mg/L [place] Free, Serum (mg/L) Date Value 01/23/2024 18.4 11/28/2023 16.8 10/31/2023 15.8 10/05/2023 14.7 09/06/2023 13.9 08/09/2023 13.0 07/13/2023 10.4 06/29/2023 11.5 06/14/2023 9.5 05/30/2023 10.4 05/18/2023 10.1 05/04/2023 10.4 04/20/2023 6.6 04/06/2023 13.0 03/29/2023 13.0 03/02/2023 4.6 02/22/2023 11.1 02/15/2023 10.4 Interpretation (MPA) (no units) Date Value 01/23/2024 There is an atypical restricted band present in the IgG and kappa regions. The location of the IgG kappa band suggests the presence of daratumumab, although one cannot rule out the possibility that this band represents a disease-related monoclonal protein. If clinically required, specific testing for daratumumab may be ordered to confirm the presence of the drug in this patient. 11/28/2023 There are two atypical restricted bands present in the IgG and kappa regions. The location of the IgG kappa band suggests the presence of daratamumab. However the second band has a different migration pattern and is unlikely to represent daratumumab. Poorly defined region of restricted mobility in the lambda alejandro. Pattern is less well defined or fainter than typically seen in monoclonal gammopathy. This could represent either an atypical presentation of polyclonal immunoglobulins or the presence of a low level lambda containing monoclonal gammopathy. 10/31/2023 There are two atypical restricted bands present in the IgG and kappa regions. The location of the IgG kappa band suggests the presence of daratamumab. However the second band has a different migration pattern and is unlikely to represent daratumumab. 10/05/2023 There is an atypical restricted band present in the IgG and kappa regions. The location of the IgG kappa band suggests the presence of daratumumab, although one cannot rule out the possibility that this band represents a disease-related monoclonal protein. If clinically required, specific testing for daratumumab may be ordered to confirm the presence of the drug in this patient. Poorly defined region of restricted mobility in IgG and kappa lanes. Pattern is less well defined or fainter than typically seen in monoclonal gammopathy. This could represent either an atypical presentation of polyclonal immunoglobulins or the presence of a low level IgG kappa monoclonal gammopathy. If clinically indicated, urine monoclonal protein analysis and serum free light chain measurements are recommended to evaluate further for monoclonal gammopathy. Clinical correlation is necessary. 09/06/2023 There is an atypical restricted band present in the IgG and kappa regions. The location of the IgG kappa band suggests the presence of daratumumab, although one cannot rule out the possibility that this band represents a disease-related monoclonal protein. If clinically required, specific testing for daratumumab may be ordered to confirm the presence of the drug in this patient. Imaging - MRI 12/29/2022: demonstrating mild expansion and irregular cortical bone in medial left clavicle. - Bone scintography 01/05/2023: increased uptake in left sternoclavicular joint, and medial clavicle. - CT left clavicle/shoulder 01/11/2023: permeative lytic lesion with pathological fracture of left medial clavicle. Low-dose CT scan of the whole body (02/22/2023) 1. Stable expansile, lytic bone lesion with associated cortical destruction involving the medial left clavicle, corresponding with the site of recent biopsy. 2. There is a lytic lesion involving the posterior right ninth rib at the costovertebral joint with disruption of the posterior cortex. 3. No other lytic bone lesions identified. 4. 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 Correlation with prior outside studies, if available, would be helpful. This could be further evaluated with dedicated head CT. 5. Additional findings as above which are stable from the recent chest and abdominopelvic CT exams. Pathology: Image guided biopsy of the mid left clavicle (01/30/2023) FINAL DIAGNOSIS A. Lesion, left clavicular head, biopsy: - Plasma cell neoplasm (kappa). - See comment. CVC/mm/02/01/2023 Diagnosis Comment Histologic sections show fragments of blood clot associated with clusters of plasma cells. The plasma cells are intermediate sized, with abundant cytoplasm and round, eccentric nuclei with mature chromatin. Immunohistochemical stains have been performed with appropriately staining controls. The plasma cells are positive for CD138. On the stains for kappa or lambda they appear monotypic kappa. 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 Further classification of this process requires correlation with clinical, radiologic, and laboratory findings. Impression and Plan Cancer Staging No matching staging information was found for the patient. #multiple myeloma Cytogenetic risk category: Standard risk Frailty Score: 0 IMWG Response Criteria: Renal: Normal creatinine, clinically no evidence for renal dysfunction. Infectious diseases: No current infection, no need for prophylaxis Musculoskeletal: Chronic pain, satisfactorily controlled. Bone modifying therapy: zometa Venous thromboembolism risk: No need for DVT prophylaxis control counseling: Does not apply since patient is naturally postmenopausal for greater than24 months or post hysterectomy or post bilateral oophorectomy Neurology: No neurologic symptoms Health maintenance discussed: Regular exercise and Appropriate diet Side effects from current medications: None Mrs. Dickinson is an 88-year-old female with excellent performance status who was recently diagnosedwith a fracture of the left mid clavicle without evidence of trauma to the site. An image guided biopsy revealed plasma cell involvement and a initial protein electrophoresis demonstrated a monoclonal paraprotein 1.19 mg/dL. Cross-sectional imaging revealed no evidence of additional osseous disease. She continues on the AGNES regimen with excellent tolerance of treatment and performance status. Her intact monoclonal paraprotein has fluctuated; however, this is in the context of daratumumab treatment and an underlying CD5+ B-cell clone. Her total IgG level has normalized and there are no other i ndications of symptomatic or biochemical progression. Overall, she is likely at least achieved a VGPR and probably a CR. I am attributing her positive immunofixation to the presence of daratumumab. Her performance status remains excellent. We will continue aspirin, acyclovir, and bone stabilizing therapy. We will continue her treatment as planned with follow-up in 4 weeks. Plan Summary: -Continue daratumumab and lenalidomide (dexamethasone dropped based on [facility] protocol) with lenalidomide 10 mg day 1 through 21 of a 28-day cycle for now -No further dexamethasone with treatment -HOLD for now bone stabilizing therapy pending dental work -Continue acyclovir and aspirin -Follow-up paraprotein labs from today -RTC in 4 weeks Medical Decision Making: Problems: Low: Stable chronic illness Data: Unique test result(s) reviewed: 3+ Risk: Moderate: Moderate risk from testing/treatment and Drug management Medical Decision Making Level: 4 - Moderate Alvin Balderas APRN.CNP documented in this encounterMag[facility]07-[facility] Nurse Note* Madhuri Mcallister LPN - 01/26/2024 12:33 PM EDT Additional intake questions: Has the patient had fever, nausea, vomiting, diarrhea, constipation, fatigue for > 1 week? No Does the patient have a decreased appetite? No Does patient want to see a Housekeeping Department Worker? No (yes to any of above refer patient to schedulers for dietitian appointment) ) Does patient have any new or increased numbness or tingling of extremities? No Is patient interested in fertility information? NA Does patient need any prescription refills? No Does patient have an advanced directive in place? No Electronically Signed By: Madhuri Mcallister LPN [facility]07-05-[facility]24 Nurse Note* Madhuri Mcallister LPN - 01/26/2024 12:33 PM EDT Additional intake questions: Has the patient had fever, nausea, vomiting, diarrhea, constipation, fatigue for > 1 week? No Does the patient have a decreased appetite? No Does patient want to see a Housekeeping Department Worker? No (yes to any of above refer patient to schedulers for dietitian appointment) ) Does patient have any new or increased numbness or tingling of extremities? No Is patient interested in fertility information? NA Does patient need any prescription refills? No Does patient have an advanced directive in place? No Electronically Signed By: Madhuri Mcallister LPN documented in this encounterMag[facility] Hospital06-19-2024 History of Present illness Narrative* Maureen Ariza, [facility] - 01/10/2024 11:35 AM EDT [facility] Assessment Medication(s): Revlimid 12/25/23 telephone note states reports that blood in the stool has resolved. She had CBC + diff yesterday - stable results. Reviewed OV note on 12/29/23. 12/26/23 Labs reviewed. Slight rise in Scr, CrCl 33.3 ml/min noted. Pt was already dose adjusted for renal impairment. Next clinic visit scheduled 01/26/24. ALLERGIES Allergen Reactions Sulfa (Sulfonamide * Swelling Adhesive Tape-Silic* Rash Revlimid cycles (28DS: 21 on / 7 off) are as follows: C1D1 03/13/23 C8D1 09/26/23 C9D1 10/27/23 -3 days late d/t illness? C10D1 11/21/23 - per pt C11D1 12/19/23 C12D1 01/16/24 C13D1 02/13/24 REMS note: Pt's last survey was completed on 08/23/23. Next survey will be available on or after 01/31/24. Dispensing Note: [facility] will send a dosing calendar with shipment to assist in adherence. Patient's current medication list and adherence status to current therapy were reviewed by Specialty Pharmacy clinical pharmacist to identify any new drug interactions or non-compliance to therapy. Therapy continues to be appropriate for disease, patient response, and medical condition. Verification of therapeutic benefit and effectiveness with current therapy was completed. Adverse events, barriers in adherence, and side effects were assessed and addressed if applicable. Will proceed with refill with no changes in therapy - patient progressing towards achieving therapeutic goals based on medication- specific laboratory parameters, disease state markers and outcomes. Steam Finisher Assessment Patient confirmed: Yes Med/dose confirmed: Yes Supplies needed: No supplies needed Missed doses: No Estimated days supply on hand: 0 Next cycle/dose due: 01/16/24 Copay amount: 0 Payment confirmed: Yes Delivery method: FedEx Signature required: Required (, Medicaid, patient preference) Delivery address: [address] [place] [id number] Delivery date: 01/12/24 Questions or concerns for the pharmacist?: Yes Patient questions/concerns: Other (see text box below) Other questions/concerns: last dose monday Current Outpatient Medications on File Prior to Visit Medication Sig REVLIMID 10 mg capsule Take 1 capsule (10 MG) by mouth daily at bedtime for 21 days on and 7 days off. acyclovir (ZOVIRAX) 400 mg tablet Take 1 tablet by mouth once daily. ondansetron (ZOFRAN) 8 mg tablet Take 1 tablet by mouth once daily as needed for nausea/vomiting. omeprazole (PRILOSEC) 40 mg capsule Take 1 capsule by mouth daily before breakfast. 1/2 hr before meal. pravastatin (PRAVACHOL) 80 mg tablet Take 1 tablet by mouth once daily. levothyroxine (SYNTHROID) 50 mcg tablet Take 1 tablet by mouth once daily. Take on empty stomach. For Thyroid. traMADol (ULTRAM) 50 mg tablet Take 1 tablet by mouth every 8 hours as needed for pain. cyanocobalamin (VITAMIN B-12) 500 mcg tablet Take 1 tablet by mouth once daily. FERROUS SULFATE ORAL Take 1 tablet by mouth. aspirin, enteric coated (ASPIRIN, ENTERIC COATED) 81 mg EC tablet Take 81 mg by mouth. omega-3 acid ethyl esters (LOVAZA) 1 gram capsule Take 1 g by mouth. calcium carbonate-vitamin D3 (CALTRATE WITH VITAMIN D3) 600 mg(1,500mg) -800 unit tab Take 1 tabletby mouth twice daily. No current facility-administered medications on file prior to visit. [facility] Visit Assessment - Hematology/Oncology: Assessment to use: Refill Vaccination Assessment: Date of influenza vaccination reminder: 04/06/2023 Date of most recent vaccination assessment: 04/06/2023 Treatment Plan Information: Treatment Plan Information: Diagnosis: Multiple myeloma - newly diagnosed Previous treatment(s): none, newly diagnosed Treatment plan: Revlimid (lenalidomide) + daratumumab + dexamethasone Starting Dose/Titration: Take 1 capsule (10mg) by mouth daily at bedtime for 21 days on, 7 days off. - Renal dose reduction required?: yes - CrCl 47mL/min, usual dose 25mg: PI recommends DR to 10mg daily, may increase to 15mg after 2 cycles if tolerating; dose reduced to 10 mg. Administration: - Take with or without food - Take at the same time each day with water; swallow whole Warnings: include but are not limited to - CONGRESSIONAL AIDE effects (dizziness, fatigue) - Tumor Flare, TLS - Venous and arterial thromboembolism (DVT, PE, TN, stroke) - BBW - Hematologic toxicity (neutropenia and thrombocytopenia) - BBW - Embryo- toxicity - BBW - No blood (or semen) donations during and 4 weeks post discontinuation Adverse reactions: include but are not limited to - Hepatotoxicity - Peripheral edema - Derm rxns (pruritis, skin rash, xeroderma) - Diarrhea > constipation; decrease appetite, abdominal pain - N/V (min to low) - BMS (neutropenia, thrombocytopenia, anemia) - Fatigue, asthenia, arthralgia, headache; back pain, muscle cramps/spasms Monitoring: - CBC with diff (MCL - weekly C1, Q2 weeks C2-4, then monthly; MDS - weekly x8 weeks, then at leastmonthly; MM - weekly x2 cycles; Q2 weeks C3, then monthly; Follicular and marginal zone lymphoma - weekly x3 weeks, Q2 weeks C2-4, then monthly) - sCr, LFTs (periodically) - TSH (baseline, then every 2-3 months) - ECG when clinically indicated - S/S infection, bruising, bleeding, hepatoxocity, 2ndry malignancy, thromboembolism, derm toxicity, TLS - test (for females of reproductive potential) - Hep B screening Drug-Drug Interactions: no interactions identified by Jennifer Baseline: - CBCD 02/22/23 - TSH 1.680 on 02/15/23 - CrCl 47mL/min on 02/22/23 - Hep B screening 02/23/23 Estimated Start Date Info: Per Dr. Voss's discretion MDO to confirm DR for current CrCl - dose adjusted to 10 mg daily. Estimated Treatment Duration: Continue until disease progression or unacceptable toxicity. Refill Assessment: Lab monitoring inclusive of CBC, Chem-7, and other labs as pertinent for therapy: Yes Chemo cycle timing assessment: Yes Screening for infection: Yes Adverse reactions and mitigation: Yes Medication changes and interaction assessment: Yes Assessment of injection issues: N/A Additional Assessment: Assessment of continued need for prophylactic medications at regular intervals: Yes Radiology procedure timing to assess for disease progression: Yes Scheduled future appointments: Yes Maureen Ariza PharmD Clinical Pharmacist, Oncology [facility] P: , F: Pool: P [facility] Pool #: [id number] * Maureen Ariza RPh - 01/10/2024 11:35 AM EDT [facility] SPECIALTY CLINICAL ASSESSMENT - CELGENE REMS HEADER Patient is not a female of reproductive potential Lenalidomide - Patient Not of Reproductive Potential V2 All boxes and spaces must be marked or filled in during counseling with the patient for every prescription. Maureen Ariza RPh 11:54 AM January 10, 2024 documented in this encounterMag[facility]06-[facility]24 Telephone encounter Note * Telephone Encounter - Veronica Mcnally - 01/08/2024 1:36 PM EDT Prescription Refill Information The patient has been identified by name and date of : Yes Caregiver verified no other encounters exist for this prescription request: Yes Caregiver confirmed with patient/requestor that no other refills are due, in the near future, with this provider at this time: No The last office visit in the department: 12/29/23 Does the patient have a future office visit with this provider/department: Yes Requested Prescriptions Pending Prescriptions Disp Refills REVLIMID 10 mg capsule 21 capsule 0 Sig: Take 1 capsule (10 MG) by mouth daily at bedtime for 21 days on and 7 days off. Veronica Mcnally January 08, 2024 1:37 PM [facility]06-17-[facility]24 Miscellaneous Notes* Telephone Encounter - Veronica Mcnally - 01/08/2024 1:36 PM EDT Prescription Refill Information The patient has been identified by name and date of : Yes Caregiver verified no other encounters exist for this prescription request: Yes Caregiver confirmed with patient/requestor that no other refills are due, in the near future, with this provider at this time: No The last office visit in the department: 12/29/23 Does the patient have a future office visit with this provider/department: Yes Requested Prescriptions Pending Prescriptions Disp Refills REVLIMID 10 mg capsule 21 capsule 0 Sig: Take 1 capsule (10 MG) by mouth daily at bedtime for 21 days on and 7 days off. Veronica Mcnally January 08, 2024 1:37 PM documented in this encounterMagruder Hospital06-07-2024 History of Present illness Narrative* Alvin Balderas APRN.ROSE MARIE - 12/29/2023 1:09 PM EDT Images from the original note were not included. (Elements copied from Dr. Beatty note dated 12/01/23, have been reviewed and updated where appropriate, and all reflect current assessment and medical decision making during today's encounter, December 29, 2023) [facility] Plasma Cell Disorder Clinic Reason for visit: follow up myeloma. Baseline assessment on initial diagnosis date 2022 Cancer Staging No matching staging information was found for the patient. Symptomatic multiple myeloma, I Related Organ or Tissue Involvement (CRAB) or other Myeloma Defining Event (MDE): Bone disease: At least one lytic bone lesion on XR or CT if BMPC >=10%, at least 2 bone lesions on XR or CT if BMPC<10%, location of lytic lesion(s): Left clavicular head Antecedent plasma cell dyscrasia: No Myeloma FISH panel: Trisomy 15, trisomy 11 Cytogenetics: 46, XX LDH: 175 ISS stage: ISS Stage II Monoclonal proteins at diagnosis: Serum M-spike: 1.19 gm/dL, Involved serum free light chains: 35.2mg/L, and Uninvolved serum free light chains: 10.4 mg/L Total immunoglobulins at diagnosis: IgG = 1980 mg/dl, IgA = 58 mg/dl, IgM = 38 mg/dl Bone marrow plasma cell infiltration: 10-15% plasma cells in the marrow Systemic treatment and disease course - Myeloma response according to: International uniform response criteria, Durie et al. Leukemia 20:1467-73, 2006 and Lew et al. ERRATUM in Leukemia 21:1134, 2007. Update in Debra SV et al. Blood 117: 1684-6001, 2011 Local treatments (radiation, surgery, kyphoplasty) 03/02/2023 to 03/08/2023 The Left clavicle received a total dose of 2000 cGy in 5 fractions at 400 cGy/fraction using 6 MV photons with Wedged Pair technique. History of present illness Mrs. Dickinson is an 87-year-old female with past medical history that includes hypothyroidism, GERD, hyperlipidemia, prediabetes, and possible coronary artery disease who was initially evaluated for left mid clavicular pain and swelling at an urgent care facility on 12/26/2022. A 2 view x-ray of the clavicle obtained on that occasion did not reveal evidence of an osseous abnormality. Of note, the tk bell did not experience antecedent trauma to the clavicle prior to that visit. He was initiated onMedrol Dosepak at the time of discharge. Follow-up MRI of the clavicle on 12/29/2022 demonstrated mild expansion and irregular cortical bone in the medial left clavicle. A bone scintigraphy study on 01/05/2023 demonstrated increased uptake in the left sternoclavicular joint medial clavicle, and a CT of the left clavicle and shoulder on 01/11/2023 demonstrated a permeative lytic lesion with a pathologic fracture of the left medial clavicle. The patient was evaluated in our orthopedic oncology clinic on 01/17/2023. CT scans of the chest abdomen and pelvis did not demonstrate any other evidence of overt osseous disease but did demonstrate hepatic hypodensities for which an MRI of the liver was suggested. An image guided biopsy left clavicle was performed demonstrated sheets of plasma cells. Currently paraprotein work-up prior to the current visit is a serum protein electrophoresis demonstrating a monoclonal spike of 1.19 mg/dL and a spot urine protein electrophoresis that does demonstrate a monoclonal paraprotein. The patient has no evidence of underlying bone marrow involvement in terms of her CBC which is entirely normal. Thereis no evidence of renal dysfunction or hypercalcemia. She denies a personal history of other pathologic fractures. She denies recent fevers, chills, night sweats, nausea, vomiting, diarrhea, voice changes, new rash, or weight loss. She has no personal history of malignancy and no strong family history of thrombophilia, bleeding diathesis, or hematologic cancer. Interim Updates: 03/31/2023: The returns evaluation management of symptomatic myeloma. She denies fevers, chills, night sweat nausea, vomiting, diarrhea, and peripheral neuropathy. She continues on aspirin and acyclovir. Pleated radiation therapy to the left clavicle with no residual pain at the site of the previous fracture. Her paraprotein labs demonstrate normalization of her involved serum free light chain and a decrease in her intact monoclonal paraprotein by approximately 50%. There is no evidence of renal dysfunction or hypercalcemia. Whole body low dose CT scan (see below) demonstrates 1/9 rib lytic lesion in addition to the known clavicular lesion. 05/05/2023: Mrs Dickinson is seen for a scheduled follow up visit. She is accompanied by her . Overall, she reports feeling well. Per her account, she has no pain in the area of her L clavicle.Reports two episodes of mild epistaxis over past month. States she has seen ENT in [place] and was told the recurrent nose bleeds were due to the anatomy of the Right side of her nose. Per patient, she is occasionally constipated and eating prunes usually relieves the constipation. Confirms compliance with Revlimid dosing and schedule. 05/31/23: Mrs. Dickinson is seen for a scheduled follow up visit, accompanied by her . She reports overall feeling well. She woke up this morning with a bruise just to the right of the sternoclavicular junction. She denies fevers, chills, night sweats, nausea, vomiting and diarrhea. She deniesnew rashes. Her paraprotein labs from last visit demonstrate a preserved free light chain ratio fabiola fluctuating intact monoclonal paraprotein by protein electrophoresis. 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 Her IgG level has normalized. She has very mild leukopenia and thrombocytopenia. There is no evidence of worsening anemia. There is no evidence of hypercalcemia. Continues on aspirin for thromboprophylaxis and acyclovir for VZV prophylaxis. Performance status is unchanged with the initiation of therapy she notes she is able to complete all of her ADLs and IADLs independently. 07/14/23: Constipation, the patient denies fevers, chills, night sweats, nausea, vomiting, diarrhea, and significant weight changes. 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 Serologically, her immunofixation demonstrates what is likely the presence of daratumumab. Her light chains remain within normal range with a normalized ratio. Her low level intact monoclonal paraprotein may represent daratumumab. She continues to take aspirin and acyclovir as directed. She complains of no new areas of bony pain. 12/01/23: At the present visit, patient denies fevers, chills, night, nausea, vomiting, diarrhea, significantly. She estimates that she wakes at 5 AM every day and is able to work for several hours before becoming tired in the early afternoon. She has not noticed any lymphadenopathy. She has not noticed any early satiety. Paraprotein labs indicate a complete remission. She remains on lenalidomide 10 mg daily day 1 through 21 of a 28-day cycle and monthly daratumumab. We have taken dexamethasone out of her treatment plan. She also receives monthly zoledronic acid. There is no evidence of renal dysfunction, hypercalcemia, or new onset cytopenias. 12/29/23: pt called in last week for brb from rectum. Has known hemorrhoids. Issue subsided without additional interventions. H/h stable. Denies other symptoms. Review of systems General: No fever , No chills, and No night sweats HEENT: No lumps, no difficulty chewing or swallowing, no enlarging tongue, no tooth aches. Musculoskeletal: no current pain Hematological: No bleeding or easy bruising. Lymphatic / Immune system: No lymph node enlargement or infection. Cardiovascular: No orthopnea, no dyspnea, no chest pain, no leg edema, no palpitations. Pulmonary: No dyspnea, no wheezing, no cough. Gastrointestinal: see HPI. No nausea, vomitting, diarrhea, constipation, abdominal pain, or blood in stool. PAST MEDICAL HISTORY Diagnosis Date Advance directive discussed with patient 02/25/2022 Discussed 02/2022 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 rich plaque 03/31/2019 Current use of proton pump inhibitor 07/30/2019 Elevated fasting blood sugar 03/29/2019 GERD without esophagitis 03/29/2019 High cholesterol History of 2019 novel coronavirus disease (COVID-19) 09/07/202202/2022 History of squamous cell carcinoma of skin 03/31/2019 Right side of nose Hypothyroidism, acquired 03/29/[address] 02/25/2022 DPA: Micaela () Medicare annual wellness visit, subsequent 08/17/2020 Medical B eligibilty date 11/21/2002 Last done: 02/11/2020 Mixed hyperglyceridemia 03/29/2019 Multiple myeloma (HCC) 02/13/2023 Osteopenia of spine 03/29/2019 PAST SURGICAL HISTORY Procedure Laterality Date CATARACT EXTRACTION HX Bilateral 2017 COLONOSCOPY 10/25/2021 repeat only if needed HYSTERECTOMY partial - age 40 MASTECTOMY, SIMPLE, COMPLETE Bilateral 1977 with implants for fibrocystic disease (?) NUCLEAR STRESS TEST (WT<440#) (UNION) 08/09/2013 old records: negative PAST SURGICAL HISTORY OF 1995 breast implants Allergies / intolerances ALLERGIES Allergen Reactions Sulfa (Sulfonamide * Swelling Adhesive Tape-Silic* Rash Medications REVLIMID 10 mg capsule Take 1 capsule (10 MG) by mouth daily at bedtime for 21 days on and 7 days off. acyclovir (ZOVIRAX) 400 mg tablet Take 1 tablet by mouth once daily. ondansetron (ZOFRAN) 8 mg tablet Take 1 tablet by mouth once daily as needed for nausea/vomiting. omeprazole (PRILOSEC) 40 mg capsule Take 1 capsule by mouth daily before breakfast. 1/2 hr before meal. pravastatin (PRAVACHOL) 80 mg tablet Take 1 tablet by mouth once daily. levothyroxine (SYNTHROID) 50 mcg tablet Take 1 tablet by mouth once daily. Take on empty stomach. For Thyroid. traMADol (ULTRAM) 50 mg tablet Take 1 tablet by mouth every 8 hours as needed for pain. cyanocobalamin (VITAMIN B-12) 500 mcg tablet Take 1 tablet by mouth once daily. FERROUS SULFATE ORAL Take 1 tablet by mouth. aspirin, enteric coated (ASPIRIN, ENTERIC COATED) 81 mg EC tablet Take 81 mg by mouth. omega-3 acid ethyl esters (LOVAZA) 1 gram capsule Take 1 g by mouth. calcium carbonate-vitamin D3 (CALTRATE WITH VITAMIN D3) 600 mg(1,500mg) -800 unit tab Take 1 tabletby mouth twice daily. Social History Tobacco Use Smoking status: Never Smokeless tobacco: Never Substance Use Topics Alcohol use: Not Currently Drug use: Not Currently FAMILY HISTORY Problem Relation Age of Onset Heart Failure Mother Diabetes Sister Hyperlipidemia Sister Thyroid Sister Breast Cancer Maternal Grandmother Diabetes Daughter Hyperlipidemia Sister Alzheimer's Disease No Family History Colon Cancer No Family History Prostate Cancer No Family History Ovarian cancer No Family History Uterine Cancer No Family History Coronary Artery Disease No Family History Hypertension No Family History Kidney Disease No Family History Seizures No Family History Stroke No Family History Physical examination BP 131/51 Pulse 63 Temp 37.1 C (98.7 F) (Temporal) Resp 20 Wt 51.7 kg (113 lb 15.7 oz) SpO2 99% BMI 21.55 kg/m ECOG PS: 1- Restricted in physically strenuous activity. Carries out light duty. General appearance: Well appearing, alert, in no acute distress, well-hydrated, well nourished. HEENT: No lumps, no macroglossia, no icterus. Mucous membranes pink. Neck: Supple, no adenopathy; thyroid symmetric, normal size, no bruits Lungs: even chest rise and fall. Extremities: No deformities, edema. Laboratory tests WBC (k/uL) Date Value 12/26/2023 2.98 11/28/2023 3.21 10/31/2023 3.27 10/05/2023 3.75 09/06/2023 4.65 08/09/2023 3.79 07/27/2023 3.23 07/13/2023 4.50 06/29/2023 3.19 06/14/2023 3.35 09/06/2021 6.85 03/15/2021 7.83 02/04/2021 6.15 01/31/2020 5.74 Abs Neut (ANC) (k/uL) Date Value 09/06/2021 4.61 03/15/2021 5.08 02/04/2021 3.89 01/31/2020 3.68 Abs Neut (k/uL) Date Value 12/26/2023 2.00 11/28/2023 2.10 10/31/2023 2.08 10/05/2023 2.65 09/06/2023 3.29 08/09/2023 2.53 07/27/2023 1.67 07/13/2023 3.49 06/29/2023 1.75 06/14/2023 2.38 Hemoglobin (g/dL) Date Value 12/26/2023 11.3 11/28/2023 11.9 10/31/2023 12.4 10/05/2023 11.9 09/06/2023 12.5 08/09/2023 13.2 07/27/2023 12.6 07/13/2023 12.4 06/29/2023 11.6 06/14/2023 12.2 09/06/2021 14.0 03/15/2021 14.0 02/04/2021 13.3 01/31/2020 13.3 Platelet Count (k/uL) Date Value 12/26/2023 91 11/28/2023 99 10/31/2023 93 10/05/2023 91 09/06/2023 105 08/09/2023 105 07/27/2023 123 07/13/2023 97 06/29/2023 121 06/14/2023 107 09/06/2021 157 03/15/2021 173 02/04/2021 148 01/31/2020 168 Glucose (mg/dL) Date Value 12/26/2023 104 11/28/2023 113 10/31/2023 115 10/05/2023 134 09/06/2023 105 08/09/2023 100 07/13/2023 100 06/29/2023 99 06/14/2023 163 05/30/2023 153 02/04/2021 98 01/31/2020 90 Creatinine (mg/dL) Date Value 12/26/2023 0.99 11/28/2023 0.96 10/31/2023 0.83 10/05/2023 0.85 09/06/2023 0.83 08/09/2023 0.98 07/13/2023 0.80 06/29/2023 0.80 06/14/2023 0.72 05/30/2023 0.72 02/04/2021 0.72 01/31/2020 0.70 Calcium (mg/dL) Date Value 02/04/2021 9.1 01/31/2020 9.5 Calcium, Total (mg/dL) Date Value 12/26/2023 9.0 11/28/2023 9.5 10/31/2023 10.1 10/05/2023 8.8 09/06/2023 9.4 08/09/2023 8.9 07/13/2023 8.5 06/29/2023 8.4 06/14/2023 8.6 05/30/2023 8.6 M-Protein Concentration (g/dL) Date Value 11/28/2023 0.15 10/31/2023 0.17 10/05/2023 0.19 09/06/2023 0.24 08/09/2023 0.29 07/13/2023 0.31 06/29/2023 0.33 06/14/2023 0.40 05/30/2023 0.39 05/18/2023 0.46 05/04/2023 0.06 04/20/2023 0.13 04/06/2023 0.58 03/29/2023 0.11 03/02/2023 1.20 02/22/2023 1.35 02/15/2023 1.39 01/17/2023 1.19 [place] Free, Serum Date Value 11/28/2023 17.3 mg/L 10/31/2023 15.6 mg/L 10/05/2023 16.2 mg/L 09/06/2023 15.5 mg/L 08/09/2023 16.0 mg/L 07/13/2023 Comment: Unable to assay. Specimen hemolyzed. Rarely, increased serum free light chains levels may not be detected or accurately quantified due to prozone phenomenon or in high viscosity samples using this immunoturbidimetric assay. Correlation with other laboratory results and clinical findings is recommended. The [place] Free Light Chain was performed using the Binding Site Optilite immunoturbidimetric method. Result obtained with different assay methods or kits cannot be used interchangeably. 06/29/2023 21.2 mg/L 06/14/2023 18.6 mg/L 05/30/2023 21.7 mg/L 05/18/2023 20.8 mg/L 05/04/2023 20.8 mg/L 04/20/2023 17.7 mg/L 04/06/2023 21.9 mg/L 03/29/2023 21.4 mg/L 03/02/2023 21.3 mg/L 02/22/2023 30.5 mg/L 02/15/2023 35.2 mg/L [place] Free, Serum (mg/L) Date Value 11/28/2023 16.8 10/31/2023 15.8 10/05/2023 14.7 09/06/2023 13.9 08/09/2023 13.0 07/13/2023 10.4 06/29/2023 11.5 06/14/2023 9.5 05/30/2023 10.4 05/18/2023 10.1 05/04/2023 10.4 04/20/2023 6.6 04/06/2023 13.0 03/29/2023 13.0 03/02/2023 4.6 02/22/2023 11.1 02/15/2023 10.4 Interpretation (MPA) (no units) Date Value 11/28/2023 There are two atypical restricted bands present in the IgG and kappa regions. The location of the IgG kappa band suggests the presence of daratamumab. However the second band has a different migration pattern and is unlikely to represent daratumumab. Poorly defined region of restricted mobility in the lambda alejandro. Pattern is less well defined or fainter than typically seen in monoclonal gammopathy. This could represent either an atypical presentation of polyclonal immunoglobulins or the presence of a low level lambda containing monoclonal gammopathy. 10/31/2023 There are two atypical restricted bands present in the IgG and kappa regions. The location of the IgG kappa band suggests the presence of daratamumab. However the second band has a different migration pattern and is unlikely to represent daratumumab. 10/05/2023 There is an atypical restricted band present in the IgG and kappa regions. The location of the IgG kappa band suggests the presence of daratumumab, although one cannot rule out the possibility that this band represents a disease-related monoclonal protein. If clinically required, specific testing for daratumumab may be ordered to confirm the presence of the drug in this patient. Poorly defined region of restricted mobility in IgG and kappa lanes. Pattern is less well defined or fainter than typically seen in monoclonal gammopathy. This could represent either an atypical presentation of polyclonal immunoglobulins or the presence of a low level IgG kappa monoclonal gammopathy. If clinically indicated, urine monoclonal protein analysis and serum free light chain measurements are recommended to evaluate further for monoclonal gammopathy. Clinical correlation is necessary. 09/06/2023 There is an atypical restricted band present in the IgG and kappa regions. The location of the IgG kappa band suggests the presence of daratumumab, although one cannot rule out the possibility that this band represents a disease-related monoclonal protein. If clinically required, specific testing for daratumumab may be ordered to confirm the presence of the drug in this patient. 08/09/2023 There is an atypical restricted band present in the IgG and kappa regions. The location of the IgG kappa band suggests the presence of daratumumab, although one cannot rule out the possibility that this band represents a disease-related monoclonal protein. If clinically required, specific testing for daratumumab may be ordered to confirm the presence of the drug in this patient. Imaging - MRI 12/29/2022: demonstrating mild expansion and irregular cortical bone in medial left clavicle. - Bone scintography 01/05/2023: increased uptake in left sternoclavicular joint, and medial clavicle. - CT left clavicle/shoulder 01/11/2023: permeative lytic lesion with pathological fracture of left medial clavicle. Low-dose CT scan of the whole body (02/22/2023) 1. Stable expansile, lytic bone lesion with associated cortical destruction involving the medial left clavicle, corresponding with the site of recent biopsy. 2. There is a lytic lesion involving the posterior right ninth rib at the costovertebral joint with disruption of the posterior cortex. 3. No other lytic bone lesions identified. 4. 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 Correlation with prior outside studies, if available, would be helpful. This could be further evaluated with dedicated head CT. 5. Additional findings as above which are stable from the recent chest and abdominopelvic CT exams. Pathology: Image guided biopsy of the mid left clavicle (01/30/2023) FINAL DIAGNOSIS A. Lesion, left clavicular head, biopsy: - Plasma cell neoplasm (kappa). - See comment. CVMisa/mm/02/01/2023 Diagnosis Comment Histologic sections show fragments of blood clot associated with clusters of plasma cells. The plasma cells are intermediate sized, with abundant cytoplasm and round, eccentric nuclei with mature chromatin. Immunohistochemical stains have been performed with appropriately staining controls. The plasma cells are positive for CD138. On the stains for kappa or lambda they appear monotypic kappa. 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 Further classification of this process requires correlation with clinical, radiologic, and laboratory findings. Impression and Plan Cancer Staging No matching staging information was found for the patient. #multiple myeloma Cytogenetic risk category: Standard risk Frailty Score: 0 IMWG Response Criteria: Renal: Normal creatinine, clinically no evidence for renal dysfunction. Infectious diseases: No current infection, no need for prophylaxis Musculoskeletal: Chronic pain, satisfactorily controlled. Bone modifying therapy: zometa Venous thromboembolism risk: No need for DVT prophylaxis control counseling: Does not apply since patient is naturally postmenopausal for greater than24 months or post hysterectomy or post bilateral oophorectomy Neurology: No neurologic symptoms Health maintenance discussed: Regular exercise and Appropriate diet Side effects from current medications: None Mrs. Dickinson is an 87-year-old female with excellent performance status who was recently diagnosedwith a fracture of the left mid clavicle without evidence of trauma to the site. An image guided biopsy revealed plasma cell involvement and a initial protein electrophoresis demonstrated a monoclonal paraprotein 1.19 mg/dL. Cross-sectional imaging revealed no evidence of additional osseous disease. She continues on the AGNES regimen with excellent tolerance of treatment and performance status. Her intact monoclonal paraprotein has fluctuated; however, this is in the context of daratumumab treatment and an underlying CD5+ B-cell clone. Her total IgG level has normalized and there are no other i ndications of symptomatic or biochemical progression. Overall, she is likely at least achieved a VGPR and probably a CR. I am attributing her positive immunofixation to the presence of daratumumab. Her performance status remains excellent. We will continue aspirin, acyclovir, and bone stabilizing therapy. We will continue her treatment as planned with follow-up in 4 weeks. Plan Summary: -Continue daratumumab and lenalidomide (dexamethasone dropped based on Agnes protocol) with lenalidomide 10 mg day 1 through 21 of a 28-day cycle for now -No further dexamethasone with treatment -Continue bone stabilizing therapy -Continue acyclovir and aspirin -Follow-up paraprotein labs from [facility] -[facility] in 4 weeks Medical Decision Making: Problems: Moderate: 1+ chronic illnesses with change Data: Unique test result(s) reviewed: 3+ Risk: Moderate: Moderate risk from testing/treatment and Drug management Medical Decision Making Level: 4 - Moderate Alvin Balderas APRN.CNP documented in this encounterMag[facility]06-[facility] Nurse Note* Selina Tolliver LPN - 12/29/2023 12:47 PM EDT Additional intake questions: Has the patient had fever, nausea, vomiting, diarrhea, constipation, fatigue for > 1 week? Yes, blood in stool one week ago, resolved Does the patient have a decreased appetite? No Does patient want to see a Housekeeping Department Worker? No (yes to any of above refer patient to schedulers for dietitian appointment) ) Does patient have any new or increased numbness or tingling of extremities? No Is patient interested in fertility information? NA Does patient need any prescription refills? No Does patient have an advanced directive in place? yes Electronically Signed By: Selina Tolliver LPN [facility] Work Phone: 1(416) 487-475106-07-2024 Nurse Note* Selina Tolliver LPN - 12/29/2023 12:47 PM EDT Additional intake questions: Has the patient had fever, nausea, vomiting, diarrhea, constipation, fatigue for > 1 week? Yes, blood in stool one week ago, resolved Does the patient have a decreased appetite? No Does patient want to see a Housekeeping Department Worker? No (yes to any of above refer patient to schedulers for dietitian appointment) ) Does patient have any new or increased numbness or tingling of extremities? No Is patient interested in fertility information? NA Does patient need any prescription refills? No Does patient have an advanced directive in place? yes Electronically Signed By: Selina Tolliver LPN documented in this encounterMag[facility]06-05-2024 Telephone encounter Note * Telephone Encounter - Mey Chahal LPN - 12/27/2023 11:51 AM EDT Pt states understanding & will get BMP repeated prior to her Feb appt. Mey Chahal LPN [facility]06-05-[facility]24 Miscellaneous Notes* Telephone Encounter - Mey Chahal LPN - 12/27/2023 11:51 AM EDT Pt states understanding & will get BMP repeated prior to her Feb appt. Mey Chahal LPN * Telephone Encounter - Ruthy Valle PA-C - 12/27/2023 9:02 AM EDT Let patient know that lab pulled blood work that wasn't due until February. However everything looks overall okay. I do want a repeat kidney function lab prior to visit in February. Ruthy Valle PA-C documented in this encounterMag[facility]06-05-2024 Telephone encounter Note * Telephone Encounter - Ruthy Valle PA-C - 12/27/2023 9:02 AM EDT Let patient know that lab pulled blood work that wasn't due until February. However everything looks overall okay. I do want a repeat kidney function lab prior to visit in February. Ruthy Valle PA-C [facility]06-03-[facility]24 Telephone encounter Note* Telephone Encounter - Katey Croft RN - 12/25/2023 9:14 AM EDT Spoke to patient via telephone. Reports intermittent bright red blood per rectum and stool over the weekend. Denies any blood clots, blood in toilet, or uncontrolled bleeding. She denies any constipation (endorses using prune juice and staying hydrated) but states she has a known hemorrhoid. Informed her likely due to thrombocytopenia related to Revlimid use and hemorrhoid. Instructed her to monitor for now and seek emergency care if any suzy blood loss or clots occur. Will follow up with patient on 12/26. She has provider visit on 12/28 as well. Patient verbalized understanding of plan. Katey Croft RN, BSN Specialty Care Registered Nurse Coordinator [facility] Work Phone: 1(930) 470-744506-03-2024 Miscellaneous Notes* Telephone Encounter - Katey Croft RN - 12/25/2023 9:14 AM EDT Spoke to patient via telephone. Reports intermittent bright red blood per rectum and stool over the weekend. Denies any blood clots, blood in toilet, or uncontrolled bleeding. She denies any constipation (endorses using prune juice and staying hydrated) but states she has a known hemorrhoid. Informed her likely due to thrombocytopenia related to Revlimid use and hemorrhoid. Instructed her to monitor for now and seek emergency care if any suzy blood loss or clots occur. Will follow up with patient on 12/26. She has provider visit on 12/28 as well. Patient verbalized understanding of plan. Katey Croft RN, BSN Specialty Care Registered Nurse Coordinator * Telephone Encounter - Foster Chin - 12/25/2023 8:16 AM EDT Kayley Dickinson is calling Jaime Beatty MD today regarding 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 (Blood in stool) Patient says she noticed blood in her stool over the weekend and also this morning. Please advise. Patient has been identified by name and birthdate. Duration of symptoms: N/A Requesting response back: call on cell [phone] (home) [phone] (cell) Foster Chin December 25, 2023 documented in this encounterMag[facility]06-03-2024 Telephone encounter Note * Telephone Encounter - Foster Chin - 12/25/2023 8:16 AM EDT Kayley Roc Dickinson is calling Jaime Beatty MD today regarding 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 (Blood in stool) Patient says she noticed blood in her stool over the weekend and also this morning. Please advise. Patient has been identified by name and birthdate. Duration of symptoms: N/A Requesting response back: call on cell [phone] (home) [phone] (cell) Foster Chin December 25, 2023 [facility] History of Present illness Narrative* Maureen Ariza, [facility] - 2023 12:08 PM EDT [facility] Refill Assessment Medication(s): Revlimid Reviewed OV note on 12/01/23. Note states Paraprotein labs indicate a complete remission. She remains on lenalidomide 10 mg daily day 1 through 21 of a 28-day cycle and monthly daratumumab...No further dexamethasone with treatment. 11/28/23 Labs reviewed. Decrease in M-protein, but rise in light chains noted. However, light chains have fluctuated regularly over the last few months. Next clinic visit scheduled 12/29/23. ALLERGIES Allergen Reactions Sulfa (Sulfonamide * Swelling Adhesive Tape-Silic* Rash Revlimid cycles (28DS: 21 on / 7 off) are as follows: C1D1 03/13/23 C8D1 09/26/23 C9D1 10/27/23 -3 days late d/t illness? C10D1 11/21/23 - per pt C11D1 12/19/23 C12D1 01/16/24 REMS note: Pt's last survey was completed on 08/23/23. Next survey will be available on or after 01/31/24. Dispensing Note: [facility] will send a dosing calendar with shipment to assist in adherence. Patient's current medication list and adherence status to current therapy were reviewed by Specialty Pharmacy clinical pharmacist to identify any new drug interactions or non-compliance to therapy. Therapy continues to be appropriate for disease, patient response, and medical condition. Verification of therapeutic benefit and effectiveness with current therapy was completed. Adverse events, barriers in adherence, and side effects were assessed and addressed if applicable. Will proceed with refill with no changes in therapy - patient progressing towards achieving therapeutic goals based on medication- specific laboratory parameters, disease state markers and outcomes. Steam Finisher Assessment Patient confirmed: Yes Med/dose confirmed: Yes Supplies needed: No supplies needed Missed doses: No Estimated days supply on hand: 0 Next cycle/dose due: 12/19/23 Copay amount: 0 Payment confirmed: Yes Delivery method: FedEx Signature required: Required (, Medicaid, patient preference) Delivery address: [address] [place] [address]. [facility] [id number] Delivery date: 12/15/23 Questions or concerns for the pharmacist?: Yes Patient questions/concerns: Other (see text box below) Other questions/concerns: Last dose on monday Current Outpatient Medications on File Prior to Visit Medication Sig REVLIMID 10 mg capsule Take 1 capsule (10 MG) by mouth daily at bedtime for 21 days on and 7 days off. acyclovir (ZOVIRAX) 400 mg tablet Take 1 tablet by mouth once daily. ondansetron (ZOFRAN) 8 mg tablet Take 1 tablet by mouth once daily as needed for nausea/vomiting. omeprazole (PRILOSEC) 40 mg capsule Take 1 capsule by mouth daily before breakfast. 1/2 hr before meal. pravastatin (PRAVACHOL) 80 mg tablet Take 1 tablet by mouth once daily. levothyroxine (SYNTHROID) 50 mcg tablet Take 1 tablet by mouth once daily. Take on empty stomach. For Thyroid. traMADol (ULTRAM) 50 mg tablet Take 1 tablet by mouth every 8 hours as needed for pain. cyanocobalamin (VITAMIN B-12) 500 mcg tablet Take 1 tablet by mouth once daily. FERROUS SULFATE ORAL Take 1 tablet by mouth. aspirin, enteric coated (ASPIRIN, ENTERIC COATED) 81 mg EC tablet Take 81 mg by mouth. omega-3 acid ethyl esters (LOVAZA) 1 gram capsule Take 1 g by mouth. calcium carbonate-vitamin D3 (CALTRATE WITH VITAMIN D3) 600 mg(1,500mg) -800 unit tab Take 1 tabletby mouth twice daily. No current facility-administered medications on file prior to visit. [facility] Visit Assessment - Hematology/Oncology: Assessment to use: Refill Vaccination Assessment: Date of influenza vaccination reminder: 04/06/2023 Date of most recent vaccination assessment: 04/06/2023 Treatment Plan Information: Treatment Plan Information: Diagnosis: Multiple myeloma - newly diagnosed Previous treatment(s): none, newly diagnosed Treatment plan: Revlimid (lenalidomide) + daratumumab + dexamethasone Starting Dose/Titration: Take 1 capsule (10mg) by mouth daily at bedtime for 21 days on, 7 days off. - Renal dose reduction required?: yes - CrCl 47mL/min, usual dose 25mg: PI recommends DR to 10mg daily, may increase to 15mg after 2 cycles if tolerating; dose reduced to 10 mg. Administration: - Take with or without food - Take at the same time each day with water; swallow whole Warnings: include but are not limited to - CONGRESSIONAL AIDE effects (dizziness, fatigue) - Tumor Flare, TLS - Venous and arterial thromboembolism (DVT, PE, TN, stroke) - BBW - Hematologic toxicity (neutropenia and thrombocytopenia) - BBW - Embryo- toxicity - BBW - No blood (or semen) donations during and 4 weeks post discontinuation Adverse reactions: include but are not limited to - Hepatotoxicity - Peripheral edema - Derm rxns (pruritis, skin rash, xeroderma) - Diarrhea > constipation; decrease appetite, abdominal pain - N/V (min to low) - BMS (neutropenia, thrombocytopenia, anemia) - Fatigue, asthenia, arthralgia, headache; back pain, muscle cramps/spasms Monitoring: - CBC with diff (MCL - weekly C1, Q2 weeks C2-4, then monthly; MDS - weekly x8 weeks, then at leastmonthly; MM - weekly x2 cycles; Q2 weeks C3, then monthly; Follicular and marginal zone lymphoma - weekly x3 weeks, Q2 weeks C2-4, then monthly) - sCr, LFTs (periodically) - TSH (baseline, then every 2-3 months) - ECG when clinically indicated - S/S infection, bruising, bleeding, hepatoxocity, 2ndry malignancy, thromboembolism, derm toxicity, TLS - test (for females of reproductive potential) - Hep B screening Drug-Drug Interactions: no interactions identified by Jennifer Baseline: - CBCD 02/22/23 - TSH 1.680 on 02/15/23 - CrCl 47mL/min on 02/22/23 - Hep B screening 02/23/23 Estimated Start Date Info: Per Dr. Voss's discretion MDO to confirm DR for current CrCl - dose adjusted to 10 mg daily. Estimated Treatment Duration: Continue until disease progression or unacceptable toxicity. Refill Assessment: Lab monitoring inclusive of CBC, Chem-7, and other labs as pertinent for therapy: Yes Chemo cycle timing assessment: Yes Screening for infection: Yes Adverse reactions and mitigation: Yes Medication changes and interaction assessment: Yes Assessment of injection issues: N/A Additional Assessment: Assessment of continued need for prophylactic medications at regular intervals: Yes Radiology procedure timing to assess for disease progression: Yes Scheduled future appointments: Yes Maureen Ariza PharmD Clinical Pharmacist, Oncology [facility] P: , F: Pool: P [facility] Pool #: [id number] * Maureen Ariza RPh - 2023 12:08 PM EDT [facility] SPECIALTY CLINICAL ASSESSMENT - CELGENE REMS HEADER Patient is not a female of reproductive potential Lenalidomide - Patient Not of Reproductive Potential V2 All boxes and spaces must be marked or filled in during counseling with the patient for every prescription. Maureen Ariza RPh 12:19 PM 2023 Addendum 2023 12:49 PM : All REMS components have been verified by clinical pharmacist and patient is (or continues to be) an appropriate candidate for treatment. Confirm prescription contains authorization number and patient risk category Confirm order is for 28 day supply or less Confirm if refill, patient has 7 days or less remaining Confirm order still appropriate to fill 30 days from authorization date For risk category females of reproductive potential: 7 days from last test Drug Interaction and Counseling Checklist Completed Verify all items checked as appropriate in the checklist Confirmation number obtained on same date order will be shipped and documented in the checklist accordingly [facility] flag resolved after confirmation number obtained Medication will be shipped overnight and within 24 hours of receiving confirmation number Confirmation numbers was obtained the same date the order is shipping out Signature required to confirm delivery José Luis Chapin PharmD Clinical Pharmacist, Oncology [facility] P: ; F: Pool: P [facility] Pool #: [id number] documented in this encounterMagruder Hospital05-22-2024 Telephone encounter Note * Telephone Encounter - Katey Croft RN - 12/13/2023 8:10 AM EDT RNCC asked Dr. Beatty to sign script - sent to [facility] and will arranged for delivery. Katey Croft RN, BSN Specialty Care Registered Nurse Coordinator [facility] Work Phone: 1(137) 235-173205-22-2024 Miscellaneous Notes* Telephone Encounter - Katey Croft RN - 12/13/2023 8:10 AM EDT RNCC asked Dr. Beatty to sign script - sent to [facility] and will arranged for delivery. Katey Croft RN, BSN Specialty Care Registered Nurse Coordinator * Telephone Encounter - Natalia Moreau - 12/13/2023 8:03 AM EDT Kayley Brian Em('s) is calling Jaime Beatty MD today regarding 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 (Medication question ) Patient is calling about her revlimid rx and is concerned she will not get her refill before . Patient has been identified by name and birthdate. Duration of symptoms: N/A Requesting response back: call on cell [phone] (home) [phone] (cell) Natalia Moreau December 13, 2023 documented in this encounterMag[facility]05-22-2024 Telephone encounter Note * Telephone Encounter - Natalia Moreau - 12/13/2023 8:03 AM EDT Kayley Roc Dickinson('s) is calling Jaime Beatty MD today regarding 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 (Medication question ) Patient is calling about her revlimid rx and is concerned she will not get her refill before . Patient has been identified by name and birthdate. Duration of symptoms: N/A Requesting response back: call on cell [phone] (home) [phone] (cell) Natalia Moreau December 13, 2023 [facility]-20-[facility] Miscellaneous Notes* Telephone Encounter - Samra Wilson RPh - 12/11/2023 4:57 PM EDT Pt will be due for a refill of Revlimid soon. If therapy is being continued, please send a refill via eRx to [facility]. To avoid any delays in processing, please make sure that the comments section of the Rx includes: - Authorization # - Patient risk category Thank you in advance for your assistance! Samra Wilson, PharmD Clinical Pharmacist, Oncology [facility] P: , F Pool: P [facility] Pool #: [id number] documented in this encounterMagruder Hospital05-20-2024 Telephone encounter Note * Telephone Encounter - Samra Wilson RPh - 12/11/2023 4:57 PM EDT Pt will be due for a refill of Revlimid soon. If therapy is being continued, please send a refill via eRx to [facility]. To avoid any delays in processing, please make sure that the comments section of the Rx includes: - Authorization # - Patient risk category Thank you in advance for your assistance! Samra Wilson, PharmD Clinical Pharmacist, Oncology [facility] P: , F Pool: P [facility] Pool #: [id number] [facility]05-20-2024 Telephone encounter Note* Telephone Encounter - Jumana Cosby - 12/11/2023 8:22 AM EDT Prescription Refill Information The patient has been identified by name and date of : Yes Caregiver verified no other encounters exist for this prescription request: Yes Does the patient have a future office visit with this provider/department: Yes Requested Prescriptions Pending Prescriptions Disp Refills REVLIMID 10 mg capsule 21 capsule 0 Sig: Take 1 capsule (10 MG) by mouth daily at bedtime for 21 days on and 7 days off. Jumana Fonseca December 11, 2023 8:24 AM [facility]-20-[facility] Miscellaneous Notes* Telephone Encounter - Jumana Cosby - 12/11/2023 8:22 AM EDT Prescription Refill Information The patient has been identified by name and date of : Yes Caregiver verified no other encounters exist for this prescription request: Yes Does the patient have a future office visit with this provider/department: Yes Requested Prescriptions Pending Prescriptions Disp Refills REVLIMID 10 mg capsule 21 capsule 0 Sig: Take 1 capsule (10 MG) by mouth daily at bedtime for 21 days on and 7 days off. Jumana Guzman [facility] December 11, 2023 8:24 AM documented in this encounterMagruder Hospital05-10-2024 History of Present illness Narrative* Jaime Beatty MD - 12/01/2023 2:15 PM EDT Images from the original note were not included. (Elements copied from Vince Freitas's note dated May 05, 2023 have been reviewed and updated where appropriate, and all reflect current assessment and medical decision making during today's encounter, May 31, 2023) [facility] Plasma Cell Disorder Clinic Reason for visit: Consult, referred by Dr. Alex Anaya for suspected multiple myeloma. My recommendations to the consult requesting physician are communicated via the shared electronic medical record or US mail. Baseline assessment on initial diagnosis date 2022 Cancer Staging No matching staging information was found for the patient. Symptomatic multiple myeloma, I Related Organ or Tissue Involvement (CRAB) or other Myeloma Defining Event (MDE): Bone disease: At least one lytic bone lesion on XR or CT if BMPC >=10%, at least 2 bone lesions on XR or CT if BMPC<10%, location of lytic lesion(s): Left clavicular head Antecedent plasma cell dyscrasia: No Myeloma FISH panel: Trisomy 15, trisomy 11 Cytogenetics: 46, XX LDH: 175 ISS stage: ISS Stage II Monoclonal proteins at diagnosis: Serum M-spike: 1.19 gm/dL, Involved serum free light chains: 35.2mg/L, and Uninvolved serum free light chains: 10.4 mg/L Total immunoglobulins at diagnosis: IgG = 1980 mg/dl, IgA = 58 mg/dl, IgM = 38 mg/dl Bone marrow plasma cell infiltration: 10-15% plasma cells in the marrow Systemic treatment and disease course - Myeloma response according to: International uniform response criteria, Durie et al. Leukemia 20:1467-73, 2006 and Durie et al. ERRATUM in Leukemia 21:1134, 2007. Update in Debra SV et al. Blood 117: [id number], 2011 Local treatments (radiation, surgery, kyphoplasty) 03/02/2023 to 03/08/2023 The Left clavicle received a total dose of 2000 cGy in 5 fractions at 400 cGy/fraction using 6 MV photons with Wedged Pair technique. History of present illness Mrs. Dickinson is an 87-year-old female with past medical history that includes hypothyroidism, GERD, hyperlipidemia, prediabetes, and possible coronary artery disease who was initially evaluated for left mid clavicular pain and swelling at an urgent care facility on 12/26/2022. A 2 view x-ray of the clavicle obtained on that occasion did not reveal evidence of an osseous abnormality. Of note, the tk bell did not experience antecedent trauma to the clavicle prior to that visit. He was initiated onMedrol Dosepak at the time of discharge. Follow-up MRI of the clavicle on 12/29/2022 demonstrated mild expansion and irregular cortical bone in the medial left clavicle. A bone scintigraphy study on 01/05/2023 demonstrated increased uptake in the left sternoclavicular joint medial clavicle, and a CT of the left clavicle and shoulder on 01/11/2023 demonstrated a permeative lytic lesion with a pathologic fracture of the left medial clavicle. The patient was evaluated in our orthopedic oncology clinic on 01/17/2023. CT scans of the chest abdomen and pelvis did not demonstrate any other evidence of overt osseous disease but did demonstrate hepatic hypodensities for which an MRI of the liver was suggested. An image guided biopsy left clavicle was performed demonstrated sheets of plasma cells. Currently paraprotein work-up prior to the current visit is a serum protein electrophoresis demonstrating a monoclonal spike of 1.19 mg/dL and a spot urine protein electrophoresis that does demonstrate a monoclonal paraprotein. The patient has no evidence of underlying bone marrow involvement in terms of her CBC which is entirely normal. Thereis no evidence of renal dysfunction or hypercalcemia. She denies a personal history of other pathologic fractures. She denies recent fevers, chills, night sweats, nausea, vomiting, diarrhea, voice changes, new rash, or weight loss. She has no personal history of malignancy and no strong family history of thrombophilia, bleeding diathesis, or hematologic cancer. Interim Updates: 03/31/2023: The returns evaluation management of symptomatic myeloma. She denies fevers, chills, night sweat nausea, vomiting, diarrhea, and peripheral neuropathy. She continues on aspirin and acyclovir. Pleated radiation therapy to the left clavicle with no residual pain at the site of the previous fracture. Her paraprotein labs demonstrate normalization of her involved serum free light chain and a decrease in her intact monoclonal paraprotein by approximately 50%. There is no evidence of renal dysfunction or hypercalcemia. Whole body low dose CT scan (see below) demonstrates 1/9 rib lytic lesion in addition to the known clavicular lesion. 05/05/2023: Mrs Dickinson is seen for a scheduled follow up visit. She is accompanied by her . Overall, she reports feeling well. Per her account, she has no pain in the area of her L clavicle.Reports two episodes of mild epistaxis over past month. States she has seen ENT in [place] and was told the recurrent nose bleeds were due to the anatomy of the Right side of her nose. Per patient, she is occasionally constipated and eating prunes usually relieves the constipation. Confirms compliance with Revlimid dosing and schedule. 05/31/23: Mrs. Dickinson is seen for a scheduled follow up visit, accompanied by her . She reports overall feeling well. She woke up this morning with a bruise just to the right of the sternoclavicular junction. She denies fevers, chills, night sweats, nausea, vomiting and diarrhea. She deniesnew rashes. Her paraprotein labs from last visit demonstrate a preserved free light chain ratio fabiola fluctuating intact monoclonal paraprotein by protein electrophoresis. 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 Her IgG level has normalized. She has very mild leukopenia and thrombocytopenia. There is no evidence of worsening anemia. There is no evidence of hypercalcemia. Continues on aspirin for thromboprophylaxis and acyclovir for VZV prophylaxis. Performance status is unchanged with the initiation of therapy she notes she is able to complete all of her ADLs and IADLs independently. 07/14/23: Constipation, the patient denies fevers, chills, night sweats, nausea, vomiting, diarrhea, and significant weight changes. 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 Serologically, her immunofixation demonstrates what is likely the presence of daratumumab. Her light chains remain within normal range with a normalized ratio. Her low level intact monoclonal paraprotein may represent daratumumab. She continues to take aspirin and acyclovir as directed. She complains of no new areas of bony pain. 12/01/23: At the present visit, patient denies fevers, chills, night, nausea, vomiting, diarrhea, significantly. She estimates that she wakes at 5 AM every day and is able to work for several hours before becoming tired in the early afternoon. She has not noticed any lymphadenopathy. She has not noticed any early satiety. Paraprotein labs indicate a complete remission. She remains on lenalidomide 10 mg daily day 1 through 21 of a 28-day cycle and monthly daratumumab. We have taken dexamethasone out of her treatment plan. She also receives monthly zoledronic acid. There is no evidence of renal dysfunction, hypercalcemia, or new onset cytopenias. Review of systems General: No fever , No chills, and No night sweats HEENT: No lumps, no difficulty chewing or swallowing, no enlarging tongue, no tooth aches. Musculoskeletal: See above Hematological: No bleeding or easy bruising. Lymphatic / Immune system: No lymph node enlargement or infection. Cardiovascular: No orthopnea, no dyspnea, no chest pain, no leg edema, no palpitations. Pulmonary: No dyspnea, no wheezing, no cough. Gastrointestinal: No nausea, vomitting, diarrhea, constipation, abdominal pain, or blood in stool. PAST MEDICAL HISTORY Diagnosis Date Advance directive discussed with patient 02/25/2022 Discussed 02/2022 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 rich plaque 03/31/2019 Current use of proton pump inhibitor 07/30/2019 Elevated fasting blood sugar 03/29/2019 GERD without esophagitis 03/29/2019 High cholesterol History of 2019 novel coronavirus disease (COVID-19) 09/07/202202/2022 History of squamous cell carcinoma of skin 03/31/2019 Right side of nose Hypothyroidism, acquired 03/29/[address] 02/25/2022 DPA: Micaela () Medicare annual wellness visit, subsequent 08/17/2020 Medical B eligibilty date 11/21/2002 Last done: 02/11/2020 Mixed hyperglyceridemia 03/29/2019 Multiple myeloma (HCC) 02/13/2023 Osteopenia of spine 03/29/2019 PAST SURGICAL HISTORY Procedure Laterality Date CATARACT EXTRACTION HX Bilateral 2018 COLONOSCOPY 10/25/2021 repeat only if needed HYSTERECTOMY partial - age 40 MASTECTOMY, SIMPLE, COMPLETE Bilateral 1977 with implants for fibrocystic disease (?) NUCLEAR STRESS TEST (WT<440#) (UNION) 08/09/2013 old records: negative PAST SURGICAL HISTORY OF 1995 breast implants Allergies / intolerances ALLERGIES Allergen Reactions Sulfa (Sulfonamide * Swelling Adhesive Tape-Silic* Rash Medications acyclovir (ZOVIRAX) 400 mg tablet^Take 1 tablet by mouth once daily.^Disp: 30 tablet^Rfl: 4 REVLIMID 10 mg capsule^Take 1 capsule (10 MG) by mouth daily at bedtime for 21 days on and 7 days off.^Disp: 21 capsule^Rfl: 0 ondansetron (ZOFRAN) 8 mg tablet^Take 1 tablet by mouth once daily as needed for nausea/vomiting.^Disp: 30 tablet^Rfl: 0 omeprazole (PRILOSEC) 40 mg capsule^Take 1 capsule by mouth daily before breakfast. 1/2 hr before meal.^Disp: 90 capsule^Rfl: 1 pravastatin (PRAVACHOL) 80 mg tablet^Take 1 tablet by mouth once daily.^Disp: 90 tablet^Rfl: 1 levothyroxine (SYNTHROID) 50 mcg tablet^Take 1 tablet by mouth once daily. Take on empty stomach. For Thyroid.^Disp: 90 tablet^Rfl: 1 traMADol (ULTRAM) 50 mg tablet^Take 1 tablet by mouth every 8 hours as needed for pain.^Disp: 21 tablet^Rfl: 0 cyanocobalamin (VITAMIN B-12) 500 mcg tablet^Take 1 tablet by mouth once daily.^Disp: ^Rfl: FERROUS SULFATE ORAL^Take 1 tablet by mouth.^Disp: ^Rfl: aspirin, enteric coated (ASPIRIN, ENTERIC COATED) 81 mg EC tablet^Take 81 mg by mouth.^Disp: ^Rfl: omega-3 acid ethyl esters (LOVAZA) 1 gram capsule^Take 1 g by mouth.^Disp: ^Rfl: calcium carbonate-vitamin D3 (CALTRATE WITH VITAMIN D3) 600 mg(1,500mg) -800 unit tab^Take 1 tabletby mouth twice daily.^Disp: ^Rfl: Social History Tobacco Use Smoking status: Never Smokeless tobacco: Never Substance Use Topics Alcohol use: Not Currently Drug use: Not Currently FAMILY HISTORY Problem Relation Age of Onset Heart Failure Mother Diabetes Sister Hyperlipidemia Sister Thyroid Sister Breast Cancer Maternal Grandmother Diabetes Daughter Hyperlipidemia Sister Alzheimer's Disease No Family History Colon Cancer No Family History Prostate Cancer No Family History Ovarian cancer No Family History Uterine Cancer No Family History Coronary Artery Disease No Family History Hypertension No Family History Kidney Disease No Family History Seizures No Family History Stroke No Family History Physical examination There were no vitals taken for this visit. ECOG PS: 1- Restricted in physically strenuous activity. Carries out light duty. General appearance: Well appearing, alert, in no acute distress, well-hydrated, well nourished. HEENT: No lumps, no macroglossia, no icterus. Mucous membranes pink. Neck: Supple, no adenopathy; thyroid symmetric, normal size, no bruits Back: no pain to palpation Lungs: Lungs clear to auscultation. No wheezing, rhonchi, rales. Heart: RRR without murmur, gallop, or rubs. No ectopy Abdomen: Abdomen soft, non-tender. Bowel sounds normal. No masses, organomegaly Extremities: No deformities, edema, skin discoloration, clubbing or cyanosis. Good capillary refill. Laboratory tests WBC (k/uL) Date Value 11/28/2023 3.21 10/31/2023 3.27 10/05/2023 3.75 09/06/2023 4.65 08/09/2023 3.79 07/27/2023 3.23 07/13/2023 4.50 06/29/2023 3.19 06/14/2023 3.35 05/30/2023 2.85 09/06/2021 6.85 03/15/2021 7.83 02/04/2021 6.15 01/31/2020 5.74 Abs Neut (ANC) (k/uL) Date Value 09/06/2021 4.61 03/15/2021 5.08 02/04/2021 3.89 01/31/2020 3.68 Abs Neut (k/uL) Date Value 11/28/2023 2.10 10/31/2023 2.08 10/05/2023 2.65 09/06/2023 3.29 08/09/2023 2.53 07/27/2023 1.67 07/13/2023 3.49 06/29/2023 1.75 06/14/2023 2.38 05/30/2023 1.45 Hemoglobin (g/dL) Date Value 11/28/2023 11.9 10/31/2023 12.4 10/05/2023 11.9 09/06/2023 12.5 08/09/2023 13.2 07/27/2023 12.6 07/13/2023 12.4 06/29/2023 11.6 06/14/2023 12.2 05/30/2023 11.9 09/06/2021 14.0 03/15/2021 14.0 02/04/2021 13.3 01/31/2020 13.3 Platelet Count (k/uL) Date Value 11/28/2023 99 10/31/2023 93 10/05/2023 91 09/06/2023 105 08/09/2023 105 07/27/2023 123 07/13/2023 97 06/29/2023 121 06/14/2023 107 05/30/2023 128 09/06/2021 157 03/15/2021 173 02/04/2021 148 01/31/2020 168 Glucose (mg/dL) Date Value 11/28/2023 113 10/31/2023 115 10/05/2023 134 09/06/2023 105 08/09/2023 100 07/13/2023 100 06/29/2023 99 06/14/2023 163 05/30/2023 153 05/18/2023 100 02/04/2021 98 01/31/2020 90 Creatinine (mg/dL) Date Value 11/28/2023 0.96 10/31/2023 0.83 10/05/2023 0.85 09/06/2023 0.83 08/09/2023 0.98 07/13/2023 0.80 06/29/2023 0.80 06/14/2023 0.72 05/30/2023 0.72 05/18/2023 0.72 02/04/2021 0.72 01/31/2020 0.70 Calcium (mg/dL) Date Value 02/04/2021 9.1 01/31/2020 9.5 Calcium, Total (mg/dL) Date Value 11/28/2023 9.5 10/31/2023 10.1 10/05/2023 8.8 09/06/2023 9.4 08/09/2023 8.9 07/13/2023 8.5 06/29/2023 8.4 06/14/2023 8.6 05/30/2023 8.6 05/18/2023 8.4 M-Protein Concentration (g/dL) Date Value 11/28/2023 0.15 10/31/2023 0.17 10/05/2023 0.19 09/06/2023 0.24 08/09/2023 0.29 07/13/2023 0.31 06/29/2023 0.33 06/14/2023 0.40 05/30/2023 0.39 05/18/2023 0.46 05/04/2023 0.06 04/20/2023 0.13 04/06/2023 0.58 03/29/2023 0.11 03/02/2023 1.20 02/22/2023 1.35 02/15/2023 1.39 01/17/2023 1.19 [place] Free, Serum Date Value 11/28/2023 17.3 mg/L 10/31/2023 15.6 mg/L 10/05/2023 16.2 mg/L 09/06/2023 15.5 mg/L 08/09/2023 16.0 mg/L 07/13/2023 Comment: Unable to assay. Specimen hemolyzed. Rarely, increased serum free light chains levels may not be detected or accurately quantified due to prozone phenomenon or in high viscosity samples using this immunoturbidimetric assay. Correlation with other laboratory results and clinical findings is recommended. The [place] Free Light Chain was performed using the Binding Site Optilite immunoturbidimetric method. Result obtained with different assay methods or kits cannot be used interchangeably. 06/29/2023 21.2 mg/L 06/14/2023 18.6 mg/L 05/30/2023 21.7 mg/L 05/18/2023 20.8 mg/L 05/04/2023 20.8 mg/L 04/20/2023 17.7 mg/L 04/06/2023 21.9 mg/L 03/29/2023 21.4 mg/L 03/02/2023 21.3 mg/L 02/22/2023 30.5 mg/L 02/15/2023 35.2 mg/L [place] Free, Serum (mg/L) Date Value 11/28/2023 16.8 10/31/2023 15.8 10/05/2023 14.7 09/06/2023 13.9 08/09/2023 13.0 07/13/2023 10.4 06/29/2023 11.5 06/14/2023 9.5 05/30/2023 10.4 05/18/2023 10.1 05/04/2023 10.4 04/20/2023 6.6 04/06/2023 13.0 03/29/2023 13.0 03/02/2023 4.6 02/22/2023 11.1 02/15/2023 10.4 Interpretation (MPA) (no units) Date Value 11/28/2023 There are two atypical restricted bands present in the IgG and kappa regions. The location of the IgG kappa band suggests the presence of daratamumab. However the second band has a different migration pattern and is unlikely to represent daratumumab. Poorly defined region of restricted mobility in the lambda alejandro. Pattern is less well defined or fainter than typically seen in monoclonal gammopathy. This could represent either an atypical presentation of polyclonal immunoglobulins or the presence of a low level lambda containing monoclonal gammopathy. 10/31/2023 There are two atypical restricted bands present in the IgG and kappa regions. The location of the IgG kappa band suggests the presence of daratamumab. However the second band has a different migration pattern and is unlikely to represent daratumumab. 10/05/2023 There is an atypical restricted band present in the IgG and kappa regions. The location of the IgG kappa band suggests the presence of daratumumab, although one cannot rule out the possibility that this band represents a disease-related monoclonal protein. If clinically required, specific testing for daratumumab may be ordered to confirm the presence of the drug in this patient. Poorly defined region of restricted mobility in IgG and kappa lanes. Pattern is less well defined or fainter than typically seen in monoclonal gammopathy. This could represent either an atypical presentation of polyclonal immunoglobulins or the presence of a low level IgG kappa monoclonal gammopathy. If clinically indicated, urine monoclonal protein analysis and serum free light chain measurements are recommended to evaluate further for monoclonal gammopathy. Clinical correlation is necessary. 09/06/2023 There is an atypical restricted band present in the IgG and kappa regions. The location of the IgG kappa band suggests the presence of daratumumab, although one cannot rule out the possibility that this band represents a disease-related monoclonal protein. If clinically required, specific testing for daratumumab may be ordered to confirm the presence of the drug in this patient. 08/09/2023 There is an atypical restricted band present in the IgG and kappa regions. The location of the IgG kappa band suggests the presence of daratumumab, although one cannot rule out the possibility that this band represents a disease-related monoclonal protein. If clinically required, specific testing for daratumumab may be ordered to confirm the presence of the drug in this patient. Imaging - MRI 12/29/2022: demonstrating mild expansion and irregular cortical bone in medial left clavicle. - Bone scintography 01/05/2023: increased uptake in left sternoclavicular joint, and medial clavicle. - CT left clavicle/shoulder 01/11/2023: permeative lytic lesion with pathological fracture of left medial clavicle. Low-dose CT scan of the whole body (02/22/2023) 1. Stable expansile, lytic bone lesion with associated cortical destruction involving the medial left clavicle, corresponding with the site of recent biopsy. 2. There is a lytic lesion involving the posterior right ninth rib at the costovertebral joint with disruption of the posterior cortex. 3. No other lytic bone lesions identified. 4. 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 Correlation with prior outside studies, if available, would be helpful. This could be further evaluated with dedicated head CT. 5. Additional findings as above which are stable from the recent chest and abdominopelvic CT exams. Pathology: Image guided biopsy of the mid left clavicle (01/30/2023) FINAL DIAGNOSIS A. Lesion, left clavicular head, biopsy: - Plasma cell neoplasm (kappa). - See comment. KARISSA/mm/02/01/2023 Diagnosis Comment Histologic sections show fragments of blood clot associated with clusters of plasma cells. The plasma cells are intermediate sized, with abundant cytoplasm and round, eccentric nuclei with mature chromatin. Immunohistochemical stains have been performed with appropriately staining controls. The plasma cells are positive for CD138. On the stains for kappa or lambda they appear monotypic kappa. 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 Further classification of this process requires correlation with clinical, radiologic, and laboratory findings. Impression and Plan Cancer Staging No matching staging information was found for the patient. ##Suspected multiple myeloma Cytogenetic risk category: Standard risk Frailty Score: 0 IMWG Response Criteria: Newly diagnosed Renal: Normal creatinine, clinically no evidence for renal dysfunction. Infectious diseases: No current infection, no need for prophylaxis Musculoskeletal: Chronic pain, satisfactorily controlled. Bone modifying therapy: We will need bone modifying agents after diagnostic work-up is complete Venous thromboembolism risk: No need for DVT prophylaxis control counseling: Does not apply since patient is naturally postmenopausal for greater than24 months or post hysterectomy or post bilateral oophorectomy Neurology: No neurologic symptoms Health maintenance discussed: Regular exercise and Appropriate diet Side effects from current medications: None Mrs. Dickinson is an 87-year-old female with excellent performance status who was recently diagnosedwith a fracture of the left mid clavicle without evidence of trauma to the site. An image guided biopsy revealed plasma cell involvement and a initial protein electrophoresis demonstrated a monoclonal paraprotein 1.19 mg/dL. Cross-sectional imaging revealed no evidence of additional osseous disease. She continues on the AGNES regimen with excellent tolerance of treatment and performance status. Her intact monoclonal paraprotein has fluctuated; however, this is in the context of daratumumab treatment and an underlying CD5+ B-cell clone. Her total IgG level has normalized and there are no other i ndications of symptomatic or biochemical progression. Overall, she is likely at least achieved a VGPR and probably a CR. I am attributing her positive immunofixation to the presence of daratumumab. Her performance status remains excellent. We will continue aspirin, acyclovir, and bone stabilizing therapy. We will continue her treatment as planned with follow-up in 4 weeks. Plan Summary: -Continue daratumumab and lenalidomide (dexamethasone dropped based on Agnes protocol) with lenalidomide 10 mg day 1 through 21 of a 28-day cycle for now -No further dexamethasone with treatment -Continue bone stabilizing therapy -Continue acyclovir and aspirin -Follow-up paraprotein labs from [facility] in 4 weeks Jaime Beatty MD Medical Decision Making: Problems: High: Illness/injury w/ threat to life/body function Data: Unique source(s) for external note(s) reviewed: 2 Unique test result(s) reviewed: 3+ Unique test(s) ordered: 3+ Risk: High: Drug therapy requiring intensive monitoring Medical Decision Making Level: 5 - High [facility] History of Present illness Narrative* Edie Martinez RPh - 11/17/2023 1:19 PM EDT [facility] SPECIALTY CLINICAL ASSESSMENT - CELGENE REMS HEADER Patient is not a female of reproductive potential Lenalidomide - Patient Not of Reproductive Potential V2 All boxes and spaces must be marked or filled in during counseling with the patient for every prescription. Edie Martinez RPh 1:24 PM November 17, 2023 * Edie Martinez RPh - 11/17/2023 1:19 PM EDT [facility] Specialty Refill Assessment Medication(s): Revlimid Patient's current medication list and adherence status to current therapy were reviewed by Specialty Pharmacy clinical pharmacist to identify any new drug interactions or non-compliance to therapy. Therapy continues to be appropriate for disease, patient response, and medical condition. Verification of therapeutic benefit and effectiveness with current therapy was completed. Adverse events, barriers in adherence, and side effects were assessed and addressed if applicable. Will proceed with refill with no changes in therapy - patient progressing towards achieving therapeutic goals based on medication- specific laboratory parameters, disease state markers and outcomes. Steam Finisher Assessment Patient confirmed: Yes Med/dose confirmed: Yes Missed doses: No Estimated days supply on hand: 0 Next cycle/dose due: 11/21/23 Copay amount: 0 Payment confirmed: Yes Delivery method: FedEx Signature required: Required (, Medicaid, patient preference) Delivery address: [address] [place] [address] Delivery date: 11/21/23 Questions or concerns for the pharmacist?: No Current Outpatient Medications on File Prior to Visit Medication Sig REVLIMID 10 mg capsule Take 1 capsule (10 MG) by mouth daily at bedtime for 21 days on and 7 days off. ondansetron (ZOFRAN) 8 mg tablet Take 1 tablet by mouth once daily as needed for nausea/vomiting. omeprazole (PRILOSEC) 40 mg capsule Take 1 capsule by mouth daily before breakfast. 1/2 hr before meal. pravastatin (PRAVACHOL) 80 mg tablet Take 1 tablet by mouth once daily. levothyroxine (SYNTHROID) 50 mcg tablet Take 1 tablet by mouth once daily. Take on empty stomach. For Thyroid. acyclovir (ZOVIRAX) 400 mg tablet Take 1 tablet by mouth once daily. traMADol (ULTRAM) 50 mg tablet Take 1 tablet by mouth every 8 hours as needed for pain. cyanocobalamin (VITAMIN B-12) 500 mcg tablet Take 1 tablet by mouth once daily. FERROUS SULFATE ORAL Take 1 tablet by mouth. aspirin, enteric coated (ASPIRIN, ENTERIC COATED) 81 mg EC tablet Take 81 mg by mouth. omega-3 acid ethyl esters (LOVAZA) 1 gram capsule Take 1 g by mouth. calcium carbonate-vitamin D3 (CALTRATE WITH VITAMIN D3) 600 mg(1,500mg) -800 unit tab Take 1 tabletby mouth twice daily. No current facility-administered medications on file prior to visit. [facility] Assessment - Hematology/Oncology: Assessment to use: Refill Vaccination Assessment: Date of influenza vaccination reminder: 04/06/2023 Date of most recent vaccination assessment: 04/06/2023 Treatment Plan Information: Treatment Plan Information: Diagnosis: Multiple myeloma - newly diagnosed Previous treatment(s): none, newly diagnosed Treatment plan: Revlimid (lenalidomide) + daratumumab + dexamethasone Starting Dose/Titration: Take 1 capsule (10mg) by mouth daily at bedtime for 21 days on, 7 days off. - Renal dose reduction required?: yes - CrCl 47mL/min, usual dose 25mg: PI recommends DR to 10mg daily, may increase to 15mg after 2 cycles if tolerating; dose reduced to 10 mg. Administration: - Take with or without food - Take at the same time each day with water; swallow whole Warnings: include but are not limited to - CONGRESSIONAL AIDE effects (dizziness, fatigue) - Tumor Flare, TLS - Venous and arterial thromboembolism (DVT, PE, TN, stroke) - BBW - Hematologic toxicity (neutropenia and thrombocytopenia) - BBW - Embryo- toxicity - BBW - No blood (or semen) donations during and 4 weeks post discontinuation Adverse reactions: include but are not limited to - Hepatotoxicity - Peripheral edema - Derm rxns (pruritis, skin rash, xeroderma) - Diarrhea > constipation; decrease appetite, abdominal pain - N/V (min to low) - BMS (neutropenia, thrombocytopenia, anemia) - Fatigue, asthenia, arthralgia, headache; back pain, muscle cramps/spasms Monitoring: - CBC with diff (MCL - weekly C1, Q2 weeks C2-4, then monthly; MDS - weekly x8 weeks, then at leastmonthly; MM - weekly x2 cycles; Q2 weeks C3, then monthly; Follicular and marginal zone lymphoma - weekly x3 weeks, Q2 weeks C2-4, then monthly) - sCr, LFTs (periodically) - TSH (baseline, then every 2-3 months) - ECG when clinically indicated - S/S infection, bruising, bleeding, hepatoxocity, 2ndry malignancy, thromboembolism, derm toxicity, TLS - test (for females of reproductive potential) - Hep B screening Drug-Drug Interactions: no interactions identified by Jennifer Baseline: - CBCD 02/22/23 - TSH 1.680 on 02/15/23 - CrCl 47mL/min on 02/22/23 - Hep B screening 02/23/23 Estimated Start Date Info: Per Dr. Voss's discretion MDO to confirm DR for current CrCl - dose adjusted to 10 mg daily. Estimated Treatment Duration: Continue until disease progression or unacceptable toxicity. Edie Martinez RPh [facility] History of Present illness Narrative* Alvin Balderas APRN.[employer] - 11/03/2023 1:54 PM EDT Images from the original note were not included. (Elements copied from my note dated 10/06/23, have been reviewed and updated where appropriate, and all reflect current assessment and medical decision making during today's encounter, November 03, 2023) [facility] Plasma Cell Disorder Clinic Reason for visit: follow up myeloma Baseline assessment on initial diagnosis date 2022 Cancer Staging No matching staging information was found for the patient. Symptomatic multiple myeloma, I Related Organ or Tissue Involvement (CRAB) or other Myeloma Defining Event (MDE): Bone disease: At least one lytic bone lesion on XR or CT if BMPC >=10%, at least 2 bone lesions on XR or CT if BMPC<10%, location of lytic lesion(s): Left clavicular head Antecedent plasma cell dyscrasia: No Myeloma FISH panel: Trisomy 15, trisomy 11 Cytogenetics: 46, XX LDH: 175 ISS stage: ISS Stage II Monoclonal proteins at diagnosis: Serum M-spike: 1.19 gm/dL, Involved serum free light chains: 35.2mg/L, and Uninvolved serum free light chains: 10.4 mg/L Total immunoglobulins at diagnosis: IgG = 1980 mg/dl, IgA = 58 mg/dl, IgM = 38 mg/dl Bone marrow plasma cell infiltration: 10-15% plasma cells in the marrow Systemic treatment and disease course - Myeloma response according to: International uniform response criteria, Durie et al. Leukemia 20:1467-73, 2006 and Durie et al. ERRATUM in Leukemia 21:1134, 2007. Update in Debra SV et al. Blood 117: [id number], 2011 02/23/23-current: Daratumumab standard dosing and schedule and revlimid 10 mg. dexamethasone 20 mg D1,8,15 of cycle one only. Local treatments (radiation, surgery, kyphoplasty) 03/02/2023 to 03/08/2023 The Left clavicle received a total dose of 2000 cGy in 5 fractions at 400 cGy/fraction using 6 MV photons with Wedged Pair technique. History of present illness Mrs. Dickinson is an 87-year-old female with past medical history that includes hypothyroidism, GERD, hyperlipidemia, prediabetes, and possible coronary artery disease who was initially evaluated for left mid clavicular pain and swelling at an urgent care facility on 12/26/2022. A 2 view x-ray of the clavicle obtained on that occasion did not reveal evidence of an osseous abnormality. Of note, the pa tiejona did not experience antecedent trauma to the clavicle prior to that visit. He was initiated onMedrol Dosepak at the time of discharge. Follow-up MRI of the clavicle on 12/29/2022 demonstrated mild expansion and irregular cortical bone in the medial left clavicle. A bone scintigraphy study on 01/05/2023 demonstrated increased uptake in the left sternoclavicular joint medial clavicle, and a CT of the left clavicle and shoulder on 01/11/2023 demonstrated a permeative lytic lesion with a pathologic fracture of the left medial clavicle. The patient was evaluated in our orthopedic oncology clinic on 01/17/2023. CT scans of the chest abdomen and pelvis did not demonstrate any other evidence of overt osseous disease but did demonstrate hepatic hypodensities for which an MRI of the liver was suggested. An image guided biopsy left clavicle was performed demonstrated sheets of plasma cells. Currently paraprotein work-up prior to the current visit is a serum protein electrophoresis demonstrating a monoclonal spike of 1.19 mg/dL and a spot urine protein electrophoresis that does demonstrate a monoclonal paraprotein. The patient has no evidence of underlying bone marrow involvement in terms of her CBC which is entirely normal. Thereis no evidence of renal dysfunction or hypercalcemia. She denies a personal history of other pathologic fractures. She denies recent fevers, chills, night sweats, nausea, vomiting, diarrhea, voice changes, new rash, or weight loss. She has no personal history of malignancy and no strong family history of thrombophilia, bleeding diathesis, or hematologic cancer. Interim Updates: 03/31/2023: The returns evaluation management of symptomatic myeloma. She denies fevers, chills, night sweat nausea, vomiting, diarrhea, and peripheral neuropathy. She continues on aspirin and acyclovir. Pleated radiation therapy to the left clavicle with no residual pain at the site of the previous fracture. Her paraprotein labs demonstrate normalization of her involved serum free light chain and a decrease in her intact monoclonal paraprotein by approximately 50%. There is no evidence of renal dysfunction or hypercalcemia. Whole body low dose CT scan (see below) demonstrates 1/9 rib lytic lesion in addition to the known clavicular lesion. 05/05/2023: Mrs Dickinson is seen for a scheduled follow up visit. She is accompanied by her . Overall, she reports feeling well. Per her account, she has no pain in the area of her L clavicle.Reports two episodes of mild epistaxis over past month. States she has seen ENT in [place] and was told the recurrent nose bleeds were due to the anatomy of the Right side of her nose. Per patient, she is occasionally constipated and eating prunes usually relieves the constipation. Confirms compliance with Revlimid dosing and schedule. 05/31/23: Mrs. Dickinson is seen for a scheduled follow up visit, accompanied by her . She reports overall feeling well. She woke up this morning with a bruise just to the right of the sternoclavicular junction. She denies fevers, chills, night sweats, nausea, vomiting and diarrhea. She deniesnew rashes. Her paraprotein labs from last visit demonstrate a preserved free light chain ratio fabiola fluctuating intact monoclonal paraprotein by protein electrophoresis. 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 Her IgG level has normalized. She has very mild leukopenia and thrombocytopenia. There is no evidence of worsening anemia. There is no evidence of hypercalcemia. Continues on aspirin for thromboprophylaxis and acyclovir for VZV prophylaxis. Performance status is unchanged with the initiation of therapy she notes she is able to complete all of her ADLs and IADLs independently. 07/14/23: Constipation, the patient denies fevers, chills, night sweats, nausea, vomiting, diarrhea, and significant weight changes. 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 Serologically, her immunofixation demonstrates what is likely the presence of daratumumab. Her light chains remain within normal range with a normalized ratio. Her low level intact monoclonal paraprotein may represent daratumumab. She continues to take aspirin and acyclovir as directed. She complains of no new areas of bony pain. 08/10/23: Mrs. Dickinson returns for myeloma follow up. accompanied by her today. Started revlimid cycle around the . Had an episode of vomiting yesterday. No further episodes. Feels well today. Appetite is ok. Weight is overall stable. She denies pain. 09/07/23: Mrs. Dickinson returns for follow up. She was seen in the ER 08/16 for epistaxis. Treated with nasal clamp initially, afrin spray, and nasal packing resolved bleeding. She is established with Dr. Oscar Balderas locally and was told to follow up. Cauterization with Dr. Balderas unclear date of this. Had two small nose bleeds that stopped without intervention. Uses a humidifier at home. New cycle of Roshan started last Monday. Appetite remains lacking. She would like to gain some weight. Discussed some ways to increase calorie intake. 10/06/23: No recurrent nasal bleeding. Set up to see her local ENT Dr. Balderas in three months. Reports abd cramping a few days ago. Reports normal bms. No constipation. Has been making smoothies. Started revlimid cycle around September 25. Continues to tolerate well. 11/03/23: Mrs. Dickinson presents for follow up. Went to the ER locally for nausea. Thought to have gastritis. Was given PPI. Has not taken this. Nausea is intermittent without vomiting. Denies constipation. No diarrhea. Review of systems General: No fever , No chills, and No night sweats HEENT: No lumps, no difficulty chewing or swallowing, no enlarging tongue, no tooth aches. Musculoskeletal: See above Hematological: No bleeding or easy bruising. Lymphatic / Immune system: No lymph node enlargement or infection. Cardiovascular: No orthopnea, no dyspnea, no chest pain, no leg edema, no palpitations. Pulmonary: No dyspnea, no wheezing, no cough. Gastrointestinal: No nausea, diarrhea, constipation, abdominal pain, or blood in stool. PAST MEDICAL HISTORY Diagnosis Date Advance directive discussed with patient 02/25/2022 Discussed 02/2022 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 rich plaque 03/31/2019 Current use of proton pump inhibitor 07/30/2019 Elevated fasting blood sugar 03/29/2019 GERD without esophagitis 03/29/2019 High cholesterol History of 2019 novel coronavirus disease (COVID-19) 09/07/202202/2022 History of squamous cell carcinoma of skin 03/31/2019 Right side of nose Hypothyroidism, acquired 03/29/[address] 02/25/2022 DPA: Micaela () Medicare annual wellness visit, subsequent 08/17/2020 Medical B eligibilty date 11/21/2002 Last done: 02/11/2020 Mixed hyperglyceridemia 03/29/2019 Multiple myeloma (HCC) 02/13/2023 Osteopenia of spine 03/29/2019 PAST SURGICAL HISTORY Procedure Laterality Date CATARACT EXTRACTION HX Bilateral 2018 COLONOSCOPY 10/25/2021 repeat only if needed HYSTERECTOMY partial - age 40 MASTECTOMY, SIMPLE, COMPLETE Bilateral 1977 with implants for fibrocystic disease (?) NUCLEAR STRESS TEST (WT<440#) (UNION) 08/09/2013 old records: negative PAST SURGICAL HISTORY OF 1995 breast implants Allergies / intolerances ALLERGIES Allergen Reactions Sulfa (Sulfonamide * Swelling Adhesive Tape-Silic* Rash Medications ondansetron (ZOFRAN) 8 mg tablet Take 1 tablet by mouth once daily as needed for nausea/vomiting. REVLIMID 10 mg capsule Take 1 capsule (10 MG) by mouth daily at bedtime for 21 days on and 7 days off. omeprazole (PRILOSEC) 40 mg capsule Take 1 capsule by mouth daily before breakfast. 1/2 hr before meal. pravastatin (PRAVACHOL) 80 mg tablet Take 1 tablet by mouth once daily. levothyroxine (SYNTHROID) 50 mcg tablet Take 1 tablet by mouth once daily. Take on empty stomach. For Thyroid. acyclovir (ZOVIRAX) 400 mg tablet Take 1 tablet by mouth once daily. traMADol (ULTRAM) 50 mg tablet Take 1 tablet by mouth every 8 hours as needed for pain. cyanocobalamin (VITAMIN B-12) 500 mcg tablet Take 1 tablet by mouth once daily. FERROUS SULFATE ORAL Take 1 tablet by mouth. aspirin, enteric coated (ASPIRIN, ENTERIC COATED) 81 mg EC tablet Take 81 mg by mouth. omega-3 acid ethyl esters (LOVAZA) 1 gram capsule Take 1 g by mouth. calcium carbonate-vitamin D3 (CALTRATE WITH VITAMIN D3) 600 mg(1,500mg) -800 unit tab Take 1 tabletby mouth twice daily. Social History Tobacco Use Smoking status: Never Smokeless tobacco: Never Substance Use Topics Alcohol use: Not Currently Drug use: Not Currently FAMILY HISTORY Problem Relation Age of Onset Heart Failure Mother Diabetes Sister Hyperlipidemia Sister Thyroid Sister Breast Cancer Maternal Grandmother Diabetes Daughter Hyperlipidemia Sister Alzheimer's Disease No Family History Colon Cancer No Family History Prostate Cancer No Family History Ovarian cancer No Family History Uterine Cancer No Family History Coronary Artery Disease No Family History Hypertension No Family History Kidney Disease No Family History Seizures No Family History Stroke No Family History Physical examination BP 146/78 Pulse 68 Temp 36.4 C (97.5 F) (Temporal) Resp 18 Wt 51.4 kg (113 lb 5.1 oz) SpO2 100% BMI 21.42 kg/m ECOG PS: 1- Restricted in physically strenuous activity. Carries out light duty. General appearance: Well appearing, alert, in no acute distress. HEENT: No lumps, no macroglossia, no icterus. Mucous membranes pink. Neck: Supple, no adenopathy. Back: kyphotic, no pain to palpation Lungs: Lungs clear to auscultation. No wheezing, rhonchi, rales. Heart: RRR without murmur, gallop, or rubs. No ectopy Abdomen: Abdomen soft, non-tender. Bowel sounds normal. No masses, organomegaly Extremities: No deformities, edema, skin discoloration, or cyanosis. Laboratory tests WBC (k/uL) Date Value 10/31/2023 3.27 10/05/2023 3.75 09/06/2023 4.65 08/09/2023 3.79 07/27/2023 3.23 07/13/2023 4.50 06/29/2023 3.19 06/14/2023 3.35 05/30/2023 2.85 05/18/2023 3.97 09/06/2021 6.85 03/15/2021 7.83 02/04/2021 6.15 01/31/2020 5.74 Abs Neut (ANC) (k/uL) Date Value 09/06/2021 4.61 03/15/2021 5.08 02/04/2021 3.89 01/31/2020 3.68 Abs Neut (k/uL) Date Value 10/31/2023 2.08 10/05/2023 2.65 09/06/2023 3.29 08/09/2023 2.53 07/27/2023 1.67 07/13/2023 3.49 06/29/2023 1.75 06/14/2023 2.38 05/30/2023 1.45 05/18/2023 2.58 Hemoglobin (g/dL) Date Value 10/31/2023 12.4 10/05/2023 11.9 09/06/2023 12.5 08/09/2023 13.2 07/27/2023 12.6 07/13/2023 12.4 06/29/2023 11.6 06/14/2023 12.2 05/30/2023 11.9 05/18/2023 11.3 09/06/2021 14.0 03/15/2021 14.0 02/04/2021 13.3 01/31/2020 13.3 Platelet Count (k/uL) Date Value 10/31/2023 93 10/05/2023 91 09/06/2023 105 08/09/2023 105 07/27/2023 123 07/13/2023 97 06/29/2023 121 06/14/2023 107 05/30/2023 128 05/18/2023 131 09/06/2021 157 03/15/2021 173 02/04/2021 148 01/31/2020 168 Glucose (mg/dL) Date Value 10/31/2023 115 10/05/2023 134 09/06/2023 105 08/09/2023 100 07/13/2023 100 06/29/2023 99 06/14/2023 163 05/30/2023 153 05/18/2023 100 05/04/2023 101 02/04/2021 98 01/31/2020 90 Creatinine (mg/dL) Date Value 10/31/2023 0.83 10/05/2023 0.85 09/06/2023 0.83 08/09/2023 0.98 07/13/2023 0.80 06/29/2023 0.80 06/14/2023 0.72 05/30/2023 0.72 05/18/2023 0.72 05/04/2023 0.68 02/04/2021 0.72 01/31/2020 0.70 Calcium (mg/dL) Date Value 02/04/2021 9.1 01/31/2020 9.5 Calcium, Total (mg/dL) Date Value 10/31/2023 10.1 10/05/2023 8.8 09/06/2023 9.4 08/09/2023 8.9 07/13/2023 8.5 06/29/2023 8.4 06/14/2023 8.6 05/30/2023 8.6 05/18/2023 8.4 05/04/2023 7.7 M-Protein Concentration (g/dL) Date Value 10/31/2023 0.17 10/05/2023 0.19 09/06/2023 0.24 08/09/2023 0.29 07/13/2023 0.31 06/29/2023 0.33 06/14/2023 0.40 05/30/2023 0.39 05/18/2023 0.46 05/04/2023 0.06 04/20/2023 0.13 04/06/2023 0.58 03/29/2023 0.11 03/02/2023 1.20 02/22/2023 1.35 02/15/2023 1.39 01/17/2023 1.19 [place] Free, Serum Date Value 10/31/2023 15.6 mg/L 10/05/2023 16.2 mg/L 09/06/2023 15.5 mg/L 08/09/2023 16.0 mg/L 07/13/2023 Comment: Unable to assay. Specimen hemolyzed. Rarely, increased serum free light chains levels may not be detected or accurately quantified due to prozone phenomenon or in high viscosity samples using this immunoturbidimetric assay. Correlation with other laboratory results and clinical findings is recommended. The [place] Free Light Chain was performed using the Binding Site Optilite immunoturbidimetric method. Result obtained with different assay methods or kits cannot be used interchangeably. 06/29/2023 21.2 mg/L 06/14/2023 18.6 mg/L 05/30/2023 21.7 mg/L 05/18/2023 20.8 mg/L 05/04/2023 20.8 mg/L 04/20/2023 17.7 mg/L 04/06/2023 21.9 mg/L 03/29/2023 21.4 mg/L 03/02/2023 21.3 mg/L 02/22/2023 30.5 mg/L 02/15/2023 35.2 mg/L [place] Free, Serum (mg/L) Date Value 10/31/2023 15.8 10/05/2023 14.7 09/06/2023 13.9 08/09/2023 13.0 07/13/2023 10.4 06/29/2023 11.5 06/14/2023 9.5 05/30/2023 10.4 05/18/2023 10.1 05/04/2023 10.4 04/20/2023 6.6 04/06/2023 13.0 03/29/2023 13.0 03/02/2023 4.6 02/22/2023 11.1 02/15/2023 10.4 Interpretation (MPA) (no units) Date Value 10/31/2023 There are two atypical restricted bands present in the IgG and kappa regions. The location of the IgG kappa band suggests the presence of daratamumab. However the second band has a different migration pattern and is unlikely to represent daratumumab. 10/05/2023 There is an atypical restricted band present in the IgG and kappa regions. The location of the IgG kappa band suggests the presence of daratumumab, although one cannot rule out the possibility that this band represents a disease-related monoclonal protein. If clinically required, specific testing for daratumumab may be ordered to confirm the presence of the drug in this patient. Poorly defined region of restricted mobility in IgG and kappa lanes. Pattern is less well defined or fainter than typically seen in monoclonal gammopathy. This could represent either an atypical presentation of polyclonal immunoglobulins or the presence of a low level IgG kappa monoclonal gammopathy. If clinically indicated, urine monoclonal protein analysis and serum free light chain measurements are recommended to evaluate further for monoclonal gammopathy. Clinical correlation is necessary. 09/06/2023 There is an atypical restricted band present in the IgG and kappa regions. The location of the IgG kappa band suggests the presence of daratumumab, although one cannot rule out the possibility that this band represents a disease-related monoclonal protein. If clinically required, specific testing for daratumumab may be ordered to confirm the presence of the drug in this patient. 08/09/2023 There is an atypical restricted band present in the IgG and kappa regions. The location of the IgG kappa band suggests the presence of daratumumab, although one cannot rule out the possibility that this band represents a disease-related monoclonal protein. If clinically required, specific testing for daratumumab may be ordered to confirm the presence of the drug in this patient. 07/13/2023 There is an atypical restricted band present in the IgG and kappa regions. The location of the IgG kappa band suggests the presence of daratumumab, although one cannot rule out the possibility that this band represents a disease-related monoclonal protein. If clinically required, specific testing for daratumumab may be ordered to confirm the presence of the drug in this patient. Imaging - MRI 12/29/2022: demonstrating mild expansion and irregular cortical bone in medial left clavicle. - Bone scintography 01/05/2023: increased uptake in left sternoclavicular joint, and medial clavicle. - CT left clavicle/shoulder 01/11/2023: permeative lytic lesion with pathological fracture of left medial clavicle. Low-dose CT scan of the whole body (02/22/2023) 1. Stable expansile, lytic bone lesion with associated cortical destruction involving the medial left clavicle, corresponding with the site of recent biopsy. 2. There is a lytic lesion involving the posterior right ninth rib at the costovertebral joint with disruption of the posterior cortex. 3. No other lytic bone lesions identified. 4. 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 Correlation with prior outside studies, if available, would be helpful. This could be further evaluated with dedicated head CT. 5. Additional findings as above which are stable from the recent chest and abdominopelvic CT exams. Pathology: Image guided biopsy of the mid left clavicle (01/30/2023) FINAL DIAGNOSIS A. Lesion, left clavicular head, biopsy: - Plasma cell neoplasm (kappa). - See comment. GISELA/mm/02/01/2023 Diagnosis Comment Histologic sections show fragments of blood clot associated with clusters of plasma cells. The plasma cells are intermediate sized, with abundant cytoplasm and round, eccentric nuclei with mature chromatin. Immunohistochemical stains have been performed with appropriately staining controls. The plasma cells are positive for CD138. On the stains for kappa or lambda they appear monotypic kappa. 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 Further classification of this process requires correlation with clinical, radiologic, and laboratory findings. Impression and Plan Cancer Staging No matching staging information was found for the patient. ##Suspected multiple myeloma Cytogenetic risk category: Standard risk Frailty Score: 0 IMWG Response Criteria: Newly diagnosed Renal: Normal creatinine, clinically no evidence for renal dysfunction. Infectious diseases: No current infection, no need for prophylaxis Musculoskeletal: na Bone modifying therapy: zometa Venous thromboembolism risk: asa while on roshan control counseling: Does not apply since patient is naturally postmenopausal for greater than24 months or post hysterectomy or post bilateral oophorectomy Neurology: No neurologic symptoms Health maintenance discussed: Regular exercise and Appropriate diet Side effects from current medications: None Mrs. Dickinson is an 87-year-old female with excellent performance status who was recently diagnosedwith a fracture of the left mid clavicle without evidence of trauma to the site. An image guided biopsy revealed plasma cell involvement and a initial protein electrophoresis demonstrated a monoclonal paraprotein 1.19 mg/dL. Cross-sectional imaging revealed no evidence of additional osseous disease. She continues on the Agnes regimen with excellent tolerance of treatment and performance status. Her intact monoclonal paraprotein has fluctuated; however, this is in the context of daratumumab treatment and an underlying CD5+ B-cell clone. Her total IgG level has normalized and there are no other i ndications of symptomatic or biochemical progression. Overall, she is likely at least achieved a VGPR and probably a CR. I am attributing her positive immunofixation to the presence of daratumumab. Her performance status remains excellent. We will continue aspirin, acyclovir, and bone stabilizing therapy. We will continue her treatment as planned. Plan Summary: -Continue daratumumab and lenalidomide (dexamethasone dropped based on Agnes protocol) with lenalidomide 10 mg day 1 through 21 of a 28-day cycle for now -Dexamethasone eliminated from treatment plan -Continue bone stabilizing therapy -Continue acyclovir and aspirin -Follow-up paraprotein labs from today -start omeprazole daily, 30 minutes prior to meal. Prn zofran for nausea. Call the office if symptoms are not improving with these measures. RTC in 4 weeks I spent a total of 30 minutes on the date of the service which included [id number] patient care, obtaining and/or reviewing separately obtained history, performing a medically appropriate examination, communicating results to the patient/family/caregiver, and care coordination (not separately repo rted). Alvin Balderas APRN.CNP documented in this encounterMagruder Hospital04-12-2024 Nurse Note* Anika Mcnamara LPN - 11/03/2023 1:03 PM EDT Additional intake questions: Has the patient had fever, nausea, vomiting, diarrhea, constipation, fatigue for > 1 week? No Does the patient have a decreased appetite? No Does patient want to see a Housekeeping Department Worker? No (yes to any of above refer patient to schedulers for dietitian appointment) ) Does patient have any new or increased numbness or tingling of extremities? No Is patient interested in fertility information? No Does patient need any prescription refills? No Does patient have an advanced directive in place? no Electronically Signed By: Anika Mcnamara LPN documented in this encounterMagruder Hospital03-18-2024 Miscellaneous Notes* Telephone Encounter - Katey Croft RN - 10/09/2023 2:11 PM EDT Spoke to patient via telephone. She reports she was discharged from ER after receiving hydration and nausea medication. Reviewed labs and no urgent results. She was discharged home with Zofran and feeling somewhat better. Will hold Revlimid until 10/10 and follow up with patient to see how she is feeling to restart. She will call the office if her symptoms return or worsen. Katey Croft RN, BSN Specialty Care Registered Nurse Coordinator * Telephone Encounter - Katey Croft RN - 10/09/2023 9:35 AM EDT Spoke to patient via telephone. She reports she had a sudden onset of diarrhea and vomiting last night that has continued into thismorning. She states that she has had a total of 4-5 episodes of emesis and 4-5 episodes of diarrhea. Patient states she started her cycle of Revlimid on 09/25 and did not take her dose last night due tothe vomiting. She had her monthly dose of daratumumab on 10/05 but was feeling well then. Advised going to the [facility] ER for evaluation due to her age and risk of decompensation and continuation of her symptoms. Patient verbalized understanding of plan. She will update the office with the disposition of her care. Katey Croft, RN, BSN Specialty Care Registered Nurse Coordinator documented in this encounterMagruder Hospital03-15-2024 History of Present illness Narrative* Alvin Balderas APRN.[employer] - 10/06/2023 2:00 PM EDT Images from the original note were not included. (Elements copied from my note dated 09/07/23, have been reviewed and updated where appropriate, and all reflect current assessment and medical decision making during today's encounter, October 06, 2023) [facility] Plasma Cell Disorder Clinic Reason for visit: follow up myeloma Baseline assessment on initial diagnosis date 2022 Cancer Staging No matching staging information was found for the patient. Symptomatic multiple myeloma, I Related Organ or Tissue Involvement (CRAB) or other Myeloma Defining Event (MDE): Bone disease: At least one lytic bone lesion on XR or CT if BMPC >=10%, at least 2 bone lesions on XR or CT if BMPC<10%, location of lytic lesion(s): Left clavicular head Antecedent plasma cell dyscrasia: No Myeloma FISH panel: Trisomy 15, trisomy 11 Cytogenetics: 46, XX LDH: 175 ISS stage: ISS Stage II Monoclonal proteins at diagnosis: Serum M-spike: 1.19 gm/dL, Involved serum free light chains: 35.2mg/L, and Uninvolved serum free light chains: 10.4 mg/L Total immunoglobulins at diagnosis: IgG = 1980 mg/dl, IgA = 58 mg/dl, IgM = 38 mg/dl Bone marrow plasma cell infiltration: 10-15% plasma cells in the marrow Systemic treatment and disease course - Myeloma response according to: International uniform response criteria, Durie et al. Leukemia 20:1467-73, 2006 and Durie et al. ERRATUM in Leukemia 21:1134, 2007. Update in Debra SV et al. Blood 117: [id number], 201002/23/23-current: Daratumumab standard dosing and schedule and revlimid 10 mg. dexamethasone 20 mg D1,8,15 of cycle one only. Local treatments (radiation, surgery, kyphoplasty) 03/02/2023 to 03/08/2023 The Left clavicle received a total dose of 2000 cGy in 5 fractions at 400 cGy/fraction using 6 MV photons with Wedged Pair technique. History of present illness Mrs. Dickinson is an 87-year-old female with past medical history that includes hypothyroidism, GERD, hyperlipidemia, prediabetes, and possible coronary artery disease who was initially evaluated for left mid clavicular pain and swelling at an urgent care facility on 12/26/2022. A 2 view x-ray of the clavicle obtained on that occasion did not reveal evidence of an osseous abnormality. Of note, the tk bell did not experience antecedent trauma to the clavicle prior to that visit. He was initiated onMedrol Dosepak at the time of discharge. Follow-up MRI of the clavicle on 12/29/2022 demonstrated mild expansion and irregular cortical bone in the medial left clavicle. A bone scintigraphy study on 01/05/2023 demonstrated increased uptake in the left sternoclavicular joint medial clavicle, and a CT of the left clavicle and shoulder on 01/11/2023 demonstrated a permeative lytic lesion with a pathologic fracture of the left medial clavicle. The patient was evaluated in our orthopedic oncology clinic on 01/17/2023. CT scans of the chest abdomen and pelvis did not demonstrate any other evidence of overt osseous disease but did demonstrate hepatic hypodensities for which an MRI of the liver was suggested. An image guided biopsy left clavicle was performed demonstrated sheets of plasma cells. Currently paraprotein work-up prior to the current visit is a serum protein electrophoresis demonstrating a monoclonal spike of 1.19 mg/dL and a spot urine protein electrophoresis that does demonstrate a monoclonal paraprotein. The patient has no evidence of underlying bone marrow involvement in terms of her CBC which is entirely normal. Thereis no evidence of renal dysfunction or hypercalcemia. She denies a personal history of other pathologic fractures. She denies recent fevers, chills, night sweats, nausea, vomiting, diarrhea, voice changes, new rash, or weight loss. She has no personal history of malignancy and no strong family history of thrombophilia, bleeding diathesis, or hematologic cancer. Interim Updates: 03/31/2023: The returns evaluation management of symptomatic myeloma. She denies fevers, chills, night sweat nausea, vomiting, diarrhea, and peripheral neuropathy. She continues on aspirin and acyclovir. Pleated radiation therapy to the left clavicle with no residual pain at the site of the previous fracture. Her paraprotein labs demonstrate normalization of her involved serum free light chain and a decrease in her intact monoclonal paraprotein by approximately 50%. There is no evidence of renal dysfunction or hypercalcemia. Whole body low dose CT scan (see below) demonstrates 1/9 rib lytic lesion in addition to the known clavicular lesion. 05/05/2023: Mrs Dickinson is seen for a scheduled follow up visit. She is accompanied by her . Overall, she reports feeling well. Per her account, she has no pain in the area of her L clavicle.Reports two episodes of mild epistaxis over past month. States she has seen ENT in [place] and was told the recurrent nose bleeds were due to the anatomy of the Right side of her nose. Per patient, she is occasionally constipated and eating prunes usually relieves the constipation. Confirms compliance with Revlimid dosing and schedule. 05/31/23: Mrs. Dickinson is seen for a scheduled follow up visit, accompanied by her . She reports overall feeling well. She woke up this morning with a bruise just to the right of the sternoclavicular junction. She denies fevers, chills, night sweats, nausea, vomiting and diarrhea. She deniesnew rashes. Her paraprotein labs from last visit demonstrate a preserved free light chain ratio fabiola fluctuating intact monoclonal paraprotein by protein electrophoresis. 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 Her IgG level has normalized. She has very mild leukopenia and thrombocytopenia. There is no evidence of worsening anemia. There is no evidence of hypercalcemia. Continues on aspirin for thromboprophylaxis and acyclovir for VZV prophylaxis. Performance status is unchanged with the initiation of therapy she notes she is able to complete all of her ADLs and IADLs independently. 07/14/23: Constipation, the patient denies fevers, chills, night sweats, nausea, vomiting, diarrhea, and significant weight changes. 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 Serologically, her immunofixation demonstrates what is likely the presence of daratumumab. Her light chains remain within normal range with a normalized ratio. Her low level intact monoclonal paraprotein may represent daratumumab. She continues to take aspirin and acyclovir as directed. She complains of no new areas of bony pain. 08/10/23: Mrs. Dickinson returns for myeloma follow up. accompanied by her today. Started revlimid cycle around the . Had an episode of vomiting yesterday. No further episodes. Feels well today. Appetite is ok. Weight is overall stable. She denies pain. 09/07/23: Mrs. Dickinson returns for follow up. She was seen in the ER 08/16 for epistaxis. Treated with nasal clamp initially, afrin spray, and nasal packing resolved bleeding. She is established with Dr. Oscar Balderas locally and was told to follow up. Cauterization with Dr. Balderas unclear date of this. Had two small nose bleeds that stopped without intervention. Uses a humidifier at home. New cycle of Roshan started last Monday. Appetite remains lacking. She would like to gain some weight. Discussed some ways to increase calorie intake. 10/06/23: No recurrent nasal bleeding. Set up to see her local ENT Dr. Balderas in three months. Reports abd cramping a few days ago. Reports normal bms. No constipation. Has been making smoothies. Started revlimid cycle around September 25. Continues to tolerate well. Review of systems General: No fever , No chills, and No night sweats HEENT: No lumps, no difficulty chewing or swallowing, no enlarging tongue, no tooth aches. Musculoskeletal: See above Hematological: No bleeding or easy bruising. Lymphatic / Immune system: No lymph node enlargement or infection. Cardiovascular: No orthopnea, no dyspnea, no chest pain, no leg edema, no palpitations. Pulmonary: No dyspnea, no wheezing, no cough. Gastrointestinal: No nausea, diarrhea, constipation, abdominal pain, or blood in stool. PAST MEDICAL HISTORY Diagnosis Date Advance directive discussed with patient 02/25/2022 Discussed 02/2022 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 rich plaque 03/31/2019 Current use of proton pump inhibitor 07/30/2019 Elevated fasting blood sugar 03/29/2019 GERD without esophagitis 03/29/2019 High cholesterol History of 2019 novel coronavirus disease (COVID-19) 09/07/202202/2022 History of squamous cell carcinoma of skin 03/31/2019 Right side of nose Hypothyroidism, acquired 03/29/[address] 02/25/2022 DPA: Micaela () Medicare annual wellness visit, subsequent 08/17/2020 Medical B eligibilty date 11/21/2002 Last done: 02/11/2020 Mixed hyperglyceridemia 03/29/2019 Multiple myeloma (HCC) 02/13/2023 Osteopenia of spine 03/29/2019 PAST SURGICAL HISTORY Procedure Laterality Date CATARACT EXTRACTION HX Bilateral 2017 COLONOSCOPY 10/25/2021 repeat only if needed HYSTERECTOMY partial - age 40 MASTECTOMY, SIMPLE, COMPLETE Bilateral 1977 with implants for fibrocystic disease (?) NUCLEAR STRESS TEST (WT<440#) (UNION) 08/09/2013 old records: negative PAST SURGICAL HISTORY OF 1995 breast implants Allergies / intolerances ALLERGIES Allergen Reactions Sulfa (Sulfonamide * Swelling Adhesive Tape-Silic* Rash Medications omeprazole (PRILOSEC) 40 mg capsule Take 1 capsule by mouth daily before breakfast. 1/2 hr before meal. pravastatin (PRAVACHOL) 80 mg tablet Take 1 tablet by mouth once daily. lenalidomide (REVLIMID) 10 mg capsule Take 1 capsule (10 MG) by mouth daily at bedtime for 21 days on and 7 days off. levothyroxine (SYNTHROID) 50 mcg tablet Take 1 tablet by mouth once daily. Take on empty stomach. For Thyroid. acyclovir (ZOVIRAX) 400 mg tablet Take 1 tablet by mouth once daily. traMADol (ULTRAM) 50 mg tablet Take 1 tablet by mouth every 8 hours as needed for pain. cyanocobalamin (VITAMIN B-12) 500 mcg tablet Take 1 tablet by mouth once daily. FERROUS SULFATE ORAL Take 1 tablet by mouth. aspirin, enteric coated (ASPIRIN, ENTERIC COATED) 81 mg EC tablet Take 81 mg by mouth. omega-3 acid ethyl esters (LOVAZA) 1 gram capsule Take 1 g by mouth. calcium carbonate-vitamin D3 (CALTRATE WITH VITAMIN D3) 600 mg(1,500mg) -800 unit tab Take 1 tabletby mouth twice daily. Social History Tobacco Use Smoking status: Never Smokeless tobacco: Never Substance Use Topics Alcohol use: Not Currently Drug use: Not Currently FAMILY HISTORY Problem Relation Age of Onset Heart Failure Mother Diabetes Sister Hyperlipidemia Sister Thyroid Sister Breast Cancer Maternal Grandmother Diabetes Daughter Hyperlipidemia Sister Alzheimer's Disease No Family History Colon Cancer No Family History Prostate Cancer No Family History Ovarian cancer No Family History Uterine Cancer No Family History Coronary Artery Disease No Family History Hypertension No Family History Kidney Disease No Family History Seizures No Family History Stroke No Family History Physical examination There were no vitals taken for this visit. ECOG PS: 1- Restricted in physically strenuous activity. Carries out light duty. General appearance: Well appearing, alert, in no acute distress. HEENT: No lumps, no macroglossia, no icterus. Mucous membranes pink. Neck: Supple, no adenopathy. Back: kyphotic, no pain to palpation Lungs: Lungs clear to auscultation. No wheezing, rhonchi, rales. Heart: RRR without murmur, gallop, or rubs. No ectopy Abdomen: Abdomen soft, non-tender. Bowel sounds normal. No masses, organomegaly Extremities: No deformities, edema, skin discoloration, or cyanosis. Laboratory tests WBC (k/uL) Date Value 10/05/2023 3.75 09/06/2023 4.65 08/09/2023 3.79 07/27/2023 3.23 07/13/2023 4.50 06/29/2023 3.19 06/14/2023 3.35 05/30/2023 2.85 05/18/2023 3.97 05/04/2023 3.87 09/06/2021 6.85 03/15/2021 7.83 02/04/2021 6.15 01/31/2020 5.74 Abs Neut (ANC) (k/uL) Date Value 09/06/2021 4.61 03/15/2021 5.08 02/04/2021 3.89 01/31/2020 3.68 Abs Neut (k/uL) Date Value 10/05/2023 2.65 09/06/2023 3.29 08/09/2023 2.53 07/27/2023 1.67 07/13/2023 3.49 06/29/2023 1.75 06/14/2023 2.38 05/30/2023 1.45 05/18/2023 2.58 05/04/2023 2.21 Hemoglobin (g/dL) Date Value 10/05/2023 11.9 09/06/2023 12.5 08/09/2023 13.2 07/27/2023 12.6 07/13/2023 12.4 06/29/2023 11.6 06/14/2023 12.2 05/30/2023 11.9 05/18/2023 11.3 05/04/2023 10.8 09/06/2021 14.0 03/15/2021 14.0 02/04/2021 13.3 01/31/2020 13.3 Platelet Count (k/uL) Date Value 10/05/2023 91 09/06/2023 105 08/09/2023 105 07/27/2023 123 07/13/2023 97 06/29/2023 121 06/14/2023 107 05/30/2023 128 05/18/2023 131 05/04/2023 147 09/06/2021 157 03/15/2021 173 02/04/2021 148 01/31/2020 168 Glucose (mg/dL) Date Value 10/05/2023 134 09/06/2023 105 08/09/2023 100 07/13/2023 100 06/29/2023 99 06/14/2023 163 05/30/2023 153 05/18/2023 100 05/04/2023 101 04/20/2023 123 02/04/2021 98 01/31/2020 90 Creatinine (mg/dL) Date Value 10/05/2023 0.85 09/06/2023 0.83 08/09/2023 0.98 07/13/2023 0.80 06/29/2023 0.80 06/14/2023 0.72 05/30/2023 0.72 05/18/2023 0.72 05/04/2023 0.68 04/20/2023 0.71 02/04/2021 0.72 01/31/2020 0.70 Calcium (mg/dL) Date Value 02/04/2021 9.1 01/31/2020 9.5 Calcium, Total (mg/dL) Date Value 10/05/2023 8.8 09/06/2023 9.4 08/09/2023 8.9 07/13/2023 8.5 06/29/2023 8.4 06/14/2023 8.6 05/30/2023 8.6 05/18/2023 8.4 05/04/2023 7.7 04/20/2023 9.0 M-Protein Concentration (g/dL) Date Value 09/06/2023 0.24 08/09/2023 0.29 07/13/2023 0.31 06/29/2023 0.33 06/14/2023 0.40 05/30/2023 0.39 05/18/2023 0.46 05/04/2023 0.06 04/20/2023 0.13 04/06/2023 0.58 03/29/2023 0.11 03/02/2023 1.20 02/22/2023 1.35 02/15/2023 1.39 01/17/2023 1.19 [place] Free, Serum Date Value 09/06/2023 15.5 mg/L 08/09/2023 16.0 mg/L 07/13/2023 Comment: Unable to assay. Specimen hemolyzed. Rarely, increased serum free light chains levels may not be detected or accurately quantified due to prozone phenomenon or in high viscosity samples using this immunoturbidimetric assay. Correlation with other laboratory results and clinical findings is recommended. The [place] Free Light Chain was performed using the Binding Site Optilite immunoturbidimetric method. Result obtained with different assay methods or kits cannot be used interchangeably. 06/29/2023 21.2 mg/L 06/14/2023 18.6 mg/L 05/30/2023 21.7 mg/L 05/18/2023 20.8 mg/L 05/04/2023 20.8 mg/L 04/20/2023 17.7 mg/L 04/06/2023 21.9 mg/L 03/29/2023 21.4 mg/L 03/02/2023 21.3 mg/L 02/22/2023 30.5 mg/L 02/15/2023 35.2 mg/L [place] Free, Serum (mg/L) Date Value 09/06/2023 13.9 08/09/2023 13.0 07/13/2023 10.4 06/29/2023 11.5 06/14/2023 9.5 05/30/2023 10.4 05/18/2023 10.1 05/04/2023 10.4 04/20/2023 6.6 04/06/2023 13.0 03/29/2023 13.0 03/02/2023 4.6 02/22/2023 11.1 02/15/2023 10.4 Interpretation (MPA) (no units) Date Value 09/06/2023 There is an atypical restricted band present in the IgG and kappa regions. The location of the IgG kappa band suggests the presence of daratumumab, although one cannot rule out the possibility that this band represents a disease-related monoclonal protein. If clinically required, specific testing for daratumumab may be ordered to confirm the presence of the drug in this patient. 08/09/2023 There is an atypical restricted band present in the IgG and kappa regions. The location of the IgG kappa band suggests the presence of daratumumab, although one cannot rule out the possibility that this band represents a disease-related monoclonal protein. If clinically required, specific testing for daratumumab may be ordered to confirm the presence of the drug in this patient. 07/13/2023 There is an atypical restricted band present in the IgG and kappa regions. The location of the IgG kappa band suggests the presence of daratumumab, although one cannot rule out the possibility that this band represents a disease-related monoclonal protein. If clinically required, specific testing for daratumumab may be ordered to confirm the presence of the drug in this patient. 06/29/2023 There is an atypical restricted band present in the IgG and kappa regions. The location of the IgG kappa band suggests the presence of daratumumab, although one cannot rule out the possibility that this band represents a disease-related monoclonal protein. If clinically required, specific testing for daratumumab may be ordered to confirm the presence of the drug in this patient. 06/14/2023 Atypical restricted bands are present in the IgG and kappa regions. Consistent with IgG kappa monoclonal gammopathy. Imaging - MRI 12/29/2022: demonstrating mild expansion and irregular cortical bone in medial left clavicle. - Bone scintography 01/05/2023: increased uptake in left sternoclavicular joint, and medial clavicle. - CT left clavicle/shoulder 01/11/2023: permeative lytic lesion with pathological fracture of left medial clavicle. Low-dose CT scan of the whole body (02/22/2023) 1. Stable expansile, lytic bone lesion with associated cortical destruction involving the medial left clavicle, corresponding with the site of recent biopsy. 2. There is a lytic lesion involving the posterior right ninth rib at the costovertebral joint with disruption of the posterior cortex. 3. No other lytic bone lesions identified. 4. 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 Correlation with prior outside studies, if available, would be helpful. This could be further evaluated with dedicated head CT. 5. Additional findings as above which are stable from the recent chest and abdominopelvic CT exams. Pathology: Image guided biopsy of the mid left clavicle (01/30/2023) FINAL DIAGNOSIS A. Lesion, left clavicular head, biopsy: - Plasma cell neoplasm (kappa). - See comment. CVMisa/mm/02/01/2023 Diagnosis Comment Histologic sections show fragments of blood clot associated with clusters of plasma cells. The plasma cells are intermediate sized, with abundant cytoplasm and round, eccentric nuclei with mature chromatin. Immunohistochemical stains have been performed with appropriately staining controls. The plasma cells are positive for CD138. On the stains for kappa or lambda they appear monotypic kappa. 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 Further classification of this process requires correlation with clinical, radiologic, and laboratory findings. Impression and Plan Cancer Staging No matching staging information was found for the patient. ##Suspected multiple myeloma Cytogenetic risk category: Standard risk Frailty Score: 0 IMWG Response Criteria: Newly diagnosed Renal: Normal creatinine, clinically no evidence for renal dysfunction. Infectious diseases: No current infection, no need for prophylaxis Musculoskeletal: na Bone modifying therapy: zometa Venous thromboembolism risk: asa while on roshan control counseling: Does not apply since patient is naturally postmenopausal for greater than24 months or post hysterectomy or post bilateral oophorectomy Neurology: No neurologic symptoms Health maintenance discussed: Regular exercise and Appropriate diet Side effects from current medications: None Mrs. Dickinson is an 87-year-old female with excellent performance status who was recently diagnosedwith a fracture of the left mid clavicle without evidence of trauma to the site. An image guided biopsy revealed plasma cell involvement and a initial protein electrophoresis demonstrated a monoclonal paraprotein 1.19 mg/dL. Cross-sectional imaging revealed no evidence of additional osseous disease. She continues on the Agnes regimen with excellent tolerance of treatment and performance status. Her intact monoclonal paraprotein has fluctuated; however, this is in the context of daratumumab treatment and an underlying CD5+ B-cell clone. Her total IgG level has normalized and there are no other i ndications of symptomatic or biochemical progression. Overall, she is likely at least achieved a VGPR and probably a CR. I am attributing her positive immunofixation to the presence of daratumumab. Her performance status remains excellent. We will continue aspirin, acyclovir, and bone stabilizing therapy. We will continue her treatment as planned. Plan Summary: -Continue daratumumab and lenalidomide (dexamethasone dropped based on Agnes protocol) with lenalidomide 10 mg day 1 through 21 of a 28-day cycle for now -Dexamethasone eliminated from treatment plan -Continue bone stabilizing therapy -Continue acyclovir and aspirin -Follow-up paraprotein labs from today -keep food diary to help with GI cramping symptoms. She has gained some weight. Requested to see nutrition in person, this is pending. RTC in 4 weeks I spent a total of 30 minutes on the date of the service which included [id number] patient care, obtaining and/or reviewing separately obtained history, performing a medically appropriate examination, communicating results to the patient/family/caregiver, and care coordination (not separately repo rted). Alvin Balderas APRN.CNP documented in this encounterMagruder Hospital03-15-[facility]24 Nurse Note* Sandra Ortega LPN - 10/06/2023 1:37 PM EDT Additional intake questions: Has the patient had fever, nausea, vomiting, diarrhea, constipation, fatigue for > 1 week? No, c/o abdominal cramps for the past couple of days, comes and goes Does the patient have a decreased appetite? No Does patient want to see a Housekeeping Department Worker? No (yes to any of above refer patient to schedulers for dietitian appointment) ) Does patient have any new or increased numbness or tingling of extremities? No Is patient interested in fertility information? No Does patient need any prescription refills? No Does patient have an advanced directive in place? yes at home documented in this encounterMag[facility]03-[facility]24 Miscellaneous Notes* Telephone Encounter - Rica Szymanski RN - 10/02/2023 8:47 AM EDT Patient phones for refill(s): Requested Prescriptions Pending Prescriptions Disp Refills omeprazole (PRILOSEC) 40 mg capsule 90 capsule 0 Sig: Take 1 capsule by mouth daily before breakfast. 1/2 hr before meal. pravastatin (PRAVACHOL) 80 mg tablet 90 tablet 0 Sig: Take 1 tablet by mouth once daily. Date of last office visit in primary care: 09/19/2023 Date of next office visit in primary care: 03/20/2024 Rica Szymanski RN. documented in this encounterMagruder Hospital02-28-[facility]24 History of Present illness Narrative* Jackie Elder RPh - 09/20/2023 11:59 AM EST [facility] SPECIALTY CLINICAL ASSESSMENT - CELGENE REMS HEADER Patient is not a female of reproductive potential Lenalidomide - Patient Not of Reproductive Potential V2 All boxes and spaces must be marked or filled in during counseling with the patient for every prescription. Jackie Elder RPh 12:00 PM September 20, 2023 Addendum September 20, 2023 12:35 PM : All REMS components have been verified by clinical pharmacist and patient is (or continues to be) an appropriate candidate for treatment. Confirm prescription contains authorization number and patient risk category Confirm order is for 28 day supply or less Confirm if refill, patient has 7 days or less remaining Confirm order still appropriate to fill 30 days from authorization date For risk category females of reproductive potential: 7 days from last test Drug Interaction and Counseling Checklist Completed Verify all items checked as appropriate in the checklist Confirmation number obtained on same date order will be shipped and documented in the checklist accordingly [facility] flag resolved after confirmation number obtained Medication will be shipped overnight and within 24 hours of receiving confirmation number Confirmation numbers was obtained the same date the order is shipping out Signature required to confirm delivery Pat Leone PharmD, EMI Clinical Pharmacist, Oncology [facility] P: , F: Pool: P [facility] Pool #: [id number] * Jackie Elder [facility] - 09/20/2023 11:59 AM EST CC Specialty Refill Assessment Medication(s): Revlimid Reviewed OV note on 09/07.Pt was seen in ER for epistaxis. Cycle ofrevlimid started 08/29. Labs reviewed. Next clinic visit scheduled 10/05 with labs 10/04. ALLERGIES Allergen Reactions Sulfa (Sulfonamide * Swelling Adhesive Tape-Silic* Rash Revlimid cycles (28DS: 21 on / 7 off) are as follows: C1D1 03/13/23 C2D1 04/10/23 C3D1 ~05/08/23 C4D1 06/06/23 C5D1 07/04/23 C6D1 08/01/23 C7D1 08/29/23 C8D1 09/26/23 C9D1 10/24/23 REMS Note: Last pt survey was completed on 08/23/23 Next survey expected on or after 01/31/24 Patient's current medication list and adherence status to current therapy were reviewed by Specialty Pharmacy clinical pharmacist to identify any new drug interactions or non-compliance to therapy. Therapy continues to be appropriate for disease, patient response, and medical condition. Verification of therapeutic benefit and effectiveness with current therapy was completed. Adverse events, barriers in adherence, and side effects were assessed and addressed if applicable. Will proceed with refill with no changes in therapy - patient progressing towards achieving therapeutic goals based on medication- specific laboratory parameters, disease state markers and outcomes. Pat Leone PharmD, EMI Clinical Pharmacist, Oncology [facility] P: , F: Pool: P [facility] Pool #: [id number] Steam Finisher Assessment Patient confirmed: Yes Med/dose confirmed: Yes Supplies needed: No supplies needed Missed doses: No Estimated days supply on hand: 0 Next cycle/dose due: 09/26/23 Copay amount: 0 Payment confirmed: Yes Delivery method: FedEx Signature required: Required (, Medicaid, patient preference) Delivery address: [address] [place] [id number] Delivery date: 09/21/23 Questions or concerns for the pharmacist?: No [facility] Visit Assessment - Hematology/Oncology: Ivent complete: No Assessment to use: Refill Vaccination Assessment: Date of influenza vaccination reminder: 04/06/2023 Date of most recent vaccination assessment: 04/06/2023 Treatment Plan Information: Treatment Plan Information: Diagnosis: Multiple myeloma - newly diagnosed Previous treatment(s): none, newly diagnosed Treatment plan: Revlimid (lenalidomide) + daratumumab + dexamethasone Starting Dose/Titration: Take 1 capsule (10mg) by mouth daily at bedtime for 21 days on, 7 days off. - Renal dose reduction required?: yes - CrCl 47mL/min, usual dose 25mg: PI recommends DR to 10mg daily, may increase to 15mg after 2 cycles if tolerating; dose reduced to 10 mg. Administration: - Take with or without food - Take at the same time each day with water; swallow whole Warnings: include but are not limited to - CONGRESSIONAL AIDE effects (dizziness, fatigue) - Tumor Flare, TLS - Venous and arterial thromboembolism (DVT, PE, TN, stroke) - BBW - Hematologic toxicity (neutropenia and thrombocytopenia) - BBW - Embryo- toxicity - BBW - No blood (or semen) donations during and 4 weeks post discontinuation Adverse reactions: include but are not limited to - Hepatotoxicity - Peripheral edema - Derm rxns (pruritis, skin rash, xeroderma) - Diarrhea > constipation; decrease appetite, abdominal pain - N/V (min to low) - BMS (neutropenia, thrombocytopenia, anemia) - Fatigue, asthenia, arthralgia, headache; back pain, muscle cramps/spasms Monitoring: - CBC with diff (MCL - weekly C1, Q2 weeks C2-4, then monthly; MDS - weekly x8 weeks, then at leastmonthly; MM - weekly x2 cycles; Q2 weeks C3, then monthly; Follicular and marginal zone lymphoma - weekly x3 weeks, Q2 weeks C2-4, then monthly) - sCr, LFTs (periodically) - TSH (baseline, then every 2-3 months) - ECG when clinically indicated - S/S infection, bruising, bleeding, hepatoxocity, 2ndry malignancy, thromboembolism, derm toxicity, TLS - test (for females of reproductive potential) - Hep B screening Drug-Drug Interactions: no interactions identified by Jennifer Baseline: - CBCD 02/22/23 - TSH 1.680 on 02/15/23 - CrCl 47mL/min on 02/22/23 - Hep B screening 02/23/23 Estimated Start Date Info: Per Dr. Voss's discretion MDO to confirm DR for current CrCl - dose adjusted to 10 mg daily. Estimated Treatment Duration: Continue until disease progression or unacceptable toxicity. Refill Assessment: Lab monitoring inclusive of CBC, Chem-7, and other labs as pertinent for therapy: Yes Chemo cycle timing assessment: Yes Screening for infection: Yes Adverse reactions and mitigation: Yes Medication changes and interaction assessment: Yes Assessment of injection issues: N/A Additional Assessment: Assessment of continued need for prophylactic medications at regular intervals: Yes Radiology procedure timing to assess for disease progression: Yes Scheduled future appointments: Yes Jackie Elder RP documented in this encounterMagruder Hospital02-27-2024 History of Present illness Narrative* Ruthy Valle PA-C - 09/19/2023 11:39 AM EST Chief Complaint Patient presents with: 6 Month Exam HPI Kayley Dickinson is a 87 year old female who presents here today for Chronic Medical Conditions.. Patient with hx of hypothyroidism, GERD, CAD, multiple myeloma, and those as below. Patient recently has had multiple epistaxis episodes. Seeing teresa ENT. Otherwise doing okay. No concerns today Past medical history, appointments, medications, allergies reviewed. Previous Medical History PAST MEDICAL HISTORY Diagnosis Date Advance directive discussed with patient 02/25/2022 Discussed 02/2022 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 rich plaque 03/31/2019 Current use of proton pump inhibitor 07/30/2019 Elevated fasting blood sugar 03/29/2019 GERD without esophagitis 03/29/2019 High cholesterol History of 2019 novel coronavirus disease (COVID-19) 09/07/202202/2022 History of squamous cell carcinoma of skin 03/31/2019 Right side of nose Hypothyroidism, acquired 03/29/[address] 02/25/2022 DPA: Micaela () Medicare annual wellness visit, subsequent 08/17/2020 Medical B eligibilty date 11/21/2002 Last done: 02/11/2020 Mixed hyperglyceridemia 03/29/2019 Multiple myeloma (HCC) 02/13/2023 Osteopenia of spine 03/29/2019 Previous Surgical History PAST SURGICAL HISTORY Procedure Laterality Date CATARACT EXTRACTION HX Bilateral 2017 COLONOSCOPY 10/25/2021 repeat only if needed HYSTERECTOMY partial - age 40 MASTECTOMY, SIMPLE, COMPLETE Bilateral 1977 with implants for fibrocystic disease (?) NUCLEAR STRESS TEST (WT<440#) (UNION) 08/09/2013 old records: negative PAST SURGICAL HISTORY OF 1996 breast implants Family History FAMILY HISTORY Problem Relation Age of Onset Heart Failure Mother Diabetes Sister Hyperlipidemia Sister Thyroid Sister Breast Cancer Maternal Grandmother Diabetes Daughter Hyperlipidemia Sister Alzheimer's Disease No Family History Colon Cancer No Family History Prostate Cancer No Family History Ovarian cancer No Family History Uterine Cancer No Family History Coronary Artery Disease No Family History Hypertension No Family History Kidney Disease No Family History Seizures No Family History Stroke No Family History Patient Allergies ALLERGIES Allergen Reactions Sulfa (Sulfonamide * Swelling Adhesive Tape-Silic* Rash Current Medications Current Outpatient Medications on File Prior to Visit Medication Sig lenalidomide (REVLIMID) 10 mg capsule Take 1 capsule (10 MG) by mouth daily at bedtime for 21 days on and 7 days off. levothyroxine (SYNTHROID) 50 mcg tablet Take 1 tablet by mouth once daily. Take on empty stomach. For Thyroid. omeprazole (PRILOSEC) 40 mg capsule Take 1 capsule by mouth daily before breakfast. 1/2 hr before meal. pravastatin (PRAVACHOL) 80 mg tablet Take 1 tablet by mouth once daily. acyclovir (ZOVIRAX) 400 mg tablet Take 1 tablet by mouth once daily. traMADol (ULTRAM) 50 mg tablet Take 1 tablet by mouth every 8 hours as needed for pain. cyanocobalamin (VITAMIN B-12) 500 mcg tablet Take 1 tablet by mouth once daily. FERROUS SULFATE ORAL Take 1 tablet by mouth. aspirin, enteric coated (ASPIRIN, ENTERIC COATED) 81 mg EC tablet Take 81 mg by mouth. omega-3 acid ethyl esters (LOVAZA) 1 gram capsule Take 1 g by mouth. calcium carbonate-vitamin D3 (CALTRATE WITH VITAMIN D3) 600 mg(1,500mg) -800 unit tab Take 1 tabletby mouth twice daily. ketoconazole (NIZORAL) 2 % cream Apply to affected area once daily. (Patient not taking: Reported on 09/19/2023) No current facility-administered medications on file prior to visit. Social History Social History Tobacco Use Smoking status: Never Smokeless tobacco: Never Substance Use Topics Alcohol use: Not Currently Drug use: Not Currently Review of Symptoms REVIEW OF SYSTEMS GENERAL: No weight loss, malaise or fevers NECK: Negative for lumps, goiter, pain and significant neck swelling RESPIRATORY: Negative for cough, hemoptysis, wheezing, COPD, dyspnea or shortness of breath CARDIOVASCULAR: Negative for chest pain, leg swelling, CHF or palpitations NEURO: No history of headaches, syncope, paralysis, seizures or tremors EXAM: BP 110/60 (BP Site: Left Arm, BP Position: Sitting, BP Cuff Size: Regular Adult) Pulse 76 Temp 37.2 C (99 F) Resp 16 Wt 50.8 kg (112 lb) BMI 21.17 kg/m Last 3 Encounter Wt Readings: Date: Wt: 09/19/2023 50.8 kg (112 lb) 09/07/2023 51.9 kg (114 lb 6.7 oz) 08/10/2023 51.2 kg (112 lb 14 oz) General Appearance: Well appearing, alert, in no acute distress, well-hydrated, well nourished.. Neck: Supple, no adenopathy; thyroid symmetric, normal size, no bruits. Lungs: Lungs clear to auscultation. No wheezing, rhonchi, rales.. Heart: RRR without murmur, gallop, or rubs. No ectopy. Extremities: No deformities, edema, skin discoloration, clubbing or cyanosis. Good capillary refill. . Peripheral Pulses: Normal. Health Maintenance List Advance Directive Discussion due on 07/24/2023 Depression Assessment due on 07/24/2023 Covid-19 Vaccine() due on 08/04/2023 LDL Cholesterol due on 09/06/2024 Diabetes Screening due on 09/06/2026 DTaP,Tdap,Td Vaccine(3 - Td or Tdap) due on 08/20/2031 Bone Density Screening Completed Influenza Vaccine Completed RSV Vaccine Completed Shingrix Vaccine Completed Pneumococcal Vaccine: 65+ Completed HPV Vaccine Aged Out Data reviewed Component Latest Ref Rng & Units 09/06/2023 Total Cholesterol, Nonfasting <200 mg/dL 124 Triglycerides, Nonfasting <150 mg/dL 86 HDL Cholesterol, Nonfasting >39 mg/dL 38 (L) LDL Cholesterol, Nonfasting <100 mg/dL 69 Non HDL Cholesterol, Nonfasting <130 mg/dL 86 VLDL Cholesterol, Nonfasting <30 mg/dL 17 Total Chol/HDL Ratio, Nonfasting <5.10 mg/dL 3.26 LDL/HDL Ratio, Nonfasting <2.54 mg/dL 1.82 Hemoglobin A1C 4.3 - 5.6 % 5.8 (H) Estimated Average Glucose mg/dL 120 TSH 0.270 - 4.200 mIU/L 1.380 ASSESSMENT/PLAN: 1. 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 rich plaque - ICD9: 414.00, 414.3, ICD10: I25.10, I25.83 (primary diagnosis) No concerning symptoms. Continue current management - LIPID PANEL, NONFASTING 2. Mixed hyperglyceridemia - ICD9: 272.3, ICD10: E78.3 - Controlled - cont current medications - Counseled on healthy diet and regular exercise - LIPID PANEL, NONFASTING 3. Hypothyroidism, acquired - ICD9: 244.9, ICD10: E03.9 - Instructed patient on importance of taking on an empty stomach either first thing in the morning or at bedtime. - continue current dose of Synthroid - TSH BLD 4. Elevated fasting blood sugar - ICD9: 790.21, ICD10: R73.01 Stable - HGB A1C - COMP METABOLIC PANEL 5. Medication management - ICD9: V58.69, ICD10: Z79.899 - VITAMIN B12 BLOOD - MAGNESIUM BLD Follow up in 6 months with labs prior. Patient denies additional questions at this time. Ruthy Valle PA-C documented in this encounterMagruder Hospital02-15-2024 History of Present illness Narrative* lAvin Balderas APRN.[employer] - 09/07/2023 1:30 PM EST Images from the original note were not included. (Elements copied from my note dated 08/10/23, have been reviewed and updated where appropriate, and all reflect current assessment and medical decision making during today's encounter, September 07, 2023) [facility] Plasma Cell Disorder Clinic Reason for visit: follow up myeloma Baseline assessment on initial diagnosis date 2022 Cancer Staging No matching staging information was found for the patient. Symptomatic multiple myeloma, I Related Organ or Tissue Involvement (CRAB) or other Myeloma Defining Event (MDE): Bone disease: At least one lytic bone lesion on XR or CT if BMPC >=10%, at least 2 bone lesions on XR or CT if BMPC<10%, location of lytic lesion(s): Left clavicular head Antecedent plasma cell dyscrasia: No Myeloma FISH panel: Trisomy 15, trisomy 11 Cytogenetics: 46, XX LDH: 175 ISS stage: ISS Stage II Monoclonal proteins at diagnosis: Serum M-spike: 1.19 gm/dL, Involved serum free light chains: 35.2mg/L, and Uninvolved serum free light chains: 10.4 mg/L Total immunoglobulins at diagnosis: IgG = 1980 mg/dl, IgA = 58 mg/dl, IgM = 38 mg/dl Bone marrow plasma cell infiltration: 10-15% plasma cells in the marrow Systemic treatment and disease course - Myeloma response according to: International uniform response criteria, Durie et al. Leukemia 20:1467-73, 2006 and Durie et al. ERRATUM in Leukemia 21:1134, 2007. Update in Debra SV et al. Blood 117: 2209-3978, 2011 02/23/23-current: Daratumumab standard dosing and schedule and revlimid 10 mg. dexamethasone 20 mg D1,8,15 of cycle one only. Local treatments (radiation, surgery, kyphoplasty) 03/02/2023 to 03/08/2023 The Left clavicle received a total dose of 2000 cGy in 5 fractions at 400 cGy/fraction using 6 MV photons with Wedged Pair technique. History of present illness Mrs. Dickinson is an 87-year-old female with past medical history that includes hypothyroidism, GERD, hyperlipidemia, prediabetes, and possible coronary artery disease who was initially evaluated for left mid clavicular pain and swelling at an urgent care facility on 12/26/2022. A 2 view x-ray of the clavicle obtained on that occasion did not reveal evidence of an osseous abnormality. Of note, the tk bell did not experience antecedent trauma to the clavicle prior to that visit. He was initiated onMedrol Dosepak at the time of discharge. Follow-up MRI of the clavicle on 12/29/2022 demonstrated mild expansion and irregular cortical bone in the medial left clavicle. A bone scintigraphy study on 01/05/2023 demonstrated increased uptake in the left sternoclavicular joint medial clavicle, and a CT of the left clavicle and shoulder on 01/11/2023 demonstrated a permeative lytic lesion with a pathologic fracture of the left medial clavicle. The patient was evaluated in our orthopedic oncology clinic on 01/17/2023. CT scans of the chest abdomen and pelvis did not demonstrate any other evidence of overt osseous disease but did demonstrate hepatic hypodensities for which an MRI of the liver was suggested. An image guided biopsy left clavicle was performed demonstrated sheets of plasma cells. Currently paraprotein work-up prior to the current visit is a serum protein electrophoresis demonstrating a monoclonal spike of 1.19 mg/dL and a spot urine protein electrophoresis that does demonstrate a monoclonal paraprotein. The patient has no evidence of underlying bone marrow involvement in terms of her CBC which is entirely normal. Thereis no evidence of renal dysfunction or hypercalcemia. She denies a personal history of other pathologic fractures. She denies recent fevers, chills, night sweats, nausea, vomiting, diarrhea, voice changes, new rash, or weight loss. She has no personal history of malignancy and no strong family history of thrombophilia, bleeding diathesis, or hematologic cancer. Interim Updates: 03/31/2023: The returns evaluation management of symptomatic myeloma. She denies fevers, chills, night sweat nausea, vomiting, diarrhea, and peripheral neuropathy. She continues on aspirin and acyclovir. Pleated radiation therapy to the left clavicle with no residual pain at the site of the previous fracture. Her paraprotein labs demonstrate normalization of her involved serum free light chain and a decrease in her intact monoclonal paraprotein by approximately 50%. There is no evidence of renal dysfunction or hypercalcemia. Whole body low dose CT scan (see below) demonstrates 1/9 rib lytic lesion in addition to the known clavicular lesion. 05/05/2023: Mrs Dickinson is seen for a scheduled follow up visit. She is accompanied by her . Overall, she reports feeling well. Per her account, she has no pain in the area of her L clavicle.Reports two episodes of mild epistaxis over past month. States she has seen ENT in [place] and was told the recurrent nose bleeds were due to the anatomy of the Right side of her nose. Per patient, she is occasionally constipated and eating prunes usually relieves the constipation. Confirms compliance with Revlimid dosing and schedule. 05/31/23: Mrs. Dickinson is seen for a scheduled follow up visit, accompanied by her . She reports overall feeling well. She woke up this morning with a bruise just to the right of the sternoclavicular junction. She denies fevers, chills, night sweats, nausea, vomiting and diarrhea. She deniesnew rashes. Her paraprotein labs from last visit demonstrate a preserved free light chain ratio fabiola fluctuating intact monoclonal paraprotein by protein electrophoresis. 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 Her IgG level has normalized. She has very mild leukopenia and thrombocytopenia. There is no evidence of worsening anemia. There is no evidence of hypercalcemia. Continues on aspirin for thromboprophylaxis and acyclovir for VZV prophylaxis. Performance status is unchanged with the initiation of therapy she notes she is able to complete all of her ADLs and IADLs independently. 07/14/23: Constipation, the patient denies fevers, chills, night sweats, nausea, vomiting, diarrhea, and significant weight changes. 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 Serologically, her immunofixation demonstrates what is likely the presence of daratumumab. Her light chains remain within normal range with a normalized ratio. Her low level intact monoclonal paraprotein may represent daratumumab. She continues to take aspirin and acyclovir as directed. She complains of no new areas of bony pain. 08/10/23: Mrs. Dickinson returns for myeloma follow up. accompanied by her today. Started revlimid cycle around the . Had an episode of vomiting yesterday. No further episodes. Feels well today. Appetite is ok. Weight is overall stable. She denies pain. 09/07/23: Mrs. Dickinson returns for follow up. She was seen in the ER 08/16 for epistaxis. Treated with nasal clamp initially, afrin spray, and nasal packing resolved bleeding. She is established with Dr. Oscar Balderas locally and was told to follow up. Cauterization with Dr. Balderas unclear date of this. Had two small nose bleeds that stopped without intervention. Uses a humidifier at home. New cycle of Roshan started last Monday. Appetite remains lacking. She would like to gain some weight. Discussed some ways to increase calorie intake. Review of systems General: No fever , No chills, and No night sweats HEENT: No lumps, no difficulty chewing or swallowing, no enlarging tongue, no tooth aches. Musculoskeletal: See above Hematological: No bleeding or easy bruising. Lymphatic / Immune system: No lymph node enlargement or infection. Cardiovascular: No orthopnea, no dyspnea, no chest pain, no leg edema, no palpitations. Pulmonary: No dyspnea, no wheezing, no cough. Gastrointestinal: No nausea, diarrhea, constipation, abdominal pain, or blood in stool. PAST MEDICAL HISTORY Diagnosis Date Advance directive discussed with patient 02/25/2022 Discussed 02/2022 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 rich plaque 03/31/2019 Current use of proton pump inhibitor 07/30/2019 Elevated fasting blood sugar 03/29/2019 GERD without esophagitis 03/29/2019 High cholesterol History of 2019 novel coronavirus disease (COVID-19) 09/07/202202/2022 History of squamous cell carcinoma of skin 03/31/2019 Right side of nose Hypothyroidism, acquired 03/29/[address] 02/25/2022 DPA: Micaela () Medicare annual wellness visit, subsequent 08/17/2020 Medical B eligibilty date 11/21/2002 Last done: 02/11/2020 Mixed hyperglyceridemia 03/29/2019 Multiple myeloma (HCC) 02/13/2023 Osteopenia of spine 03/29/2019 PAST SURGICAL HISTORY Procedure Laterality Date CATARACT EXTRACTION HX Bilateral 2018 COLONOSCOPY 10/25/2021 repeat only if needed HYSTERECTOMY partial - age 40 MASTECTOMY, SIMPLE, COMPLETE Bilateral 1977 with implants for fibrocystic disease (?) NUCLEAR STRESS TEST (WT<440#) ([facility]) 08/09/2013 old records: negative PAST SURGICAL HISTORY OF 1995 breast implants Allergies / intolerances ALLERGIES Allergen Reactions Sulfa (Sulfonamide * Swelling Adhesive Tape-Silic* Rash Medications lenalidomide (REVLIMID) 10 mg capsule Take 1 capsule (10 MG) by mouth daily at bedtime for 21 days on and 7 days off. levothyroxine (SYNTHROID) 50 mcg tablet Take 1 tablet by mouth once daily. Take on empty stomach. For Thyroid. omeprazole (PRILOSEC) 40 mg capsule Take 1 capsule by mouth daily before breakfast. 1/2 hr before meal. pravastatin (PRAVACHOL) 80 mg tablet Take 1 tablet by mouth once daily. acyclovir (ZOVIRAX) 400 mg tablet Take 1 tablet by mouth once daily. traMADol (ULTRAM) 50 mg tablet Take 1 tablet by mouth every 8 hours as needed for pain. cyanocobalamin (VITAMIN B-12) 500 mcg tablet Take 1 tablet by mouth once daily. ketoconazole (NIZORAL) 2 % cream Apply to affected area once daily. FERROUS SULFATE ORAL Take 1 tablet by mouth. aspirin, enteric coated (ASPIRIN, ENTERIC COATED) 81 mg EC tablet Take 81 mg by mouth. omega-3 acid ethyl esters (LOVAZA) 1 gram capsule Take 1 g by mouth. calcium carbonate-vitamin D3 (CALTRATE WITH VITAMIN D3) 600 mg(1,500mg) -800 unit tab Take 1 tabletby mouth twice daily. Social History Tobacco Use Smoking status: Never Smokeless tobacco: Never Substance Use Topics Alcohol use: Not Currently Drug use: Not Currently FAMILY HISTORY Problem Relation Age of Onset Heart Failure Mother Diabetes Sister Hyperlipidemia Sister Thyroid Sister Breast Cancer Maternal Grandmother Diabetes Daughter Hyperlipidemia Sister Alzheimer's Disease No Family History Colon Cancer No Family History Prostate Cancer No Family History Ovarian cancer No Family History Uterine Cancer No Family History Coronary Artery Disease No Family History Hypertension No Family History Kidney Disease No Family History Seizures No Family History Stroke No Family History Physical examination BP 137/58 Pulse 74 Temp 36.6 C (97.9 F) (Oral) Resp 18 Wt 51.9 kg (114 lb 6.7 oz) BMI 21.63 kg/m ECOG PS: 1- Restricted in physically strenuous activity. Carries out light duty. General appearance: Well appearing, alert, in no acute distress. HEENT: No lumps, no macroglossia, no icterus. Mucous membranes pink. Neck: Supple, no adenopathy. Back: kyphotic, no pain to palpation Lungs: Lungs clear to auscultation. No wheezing, rhonchi, rales. Heart: RRR without murmur, gallop, or rubs. No ectopy Abdomen: Abdomen soft, non-tender. Bowel sounds normal. No masses, organomegaly Extremities: No deformities, edema, skin discoloration, or cyanosis. Laboratory tests WBC (k/uL) Date Value 09/06/2023 4.65 08/09/2023 3.79 07/27/2023 3.23 07/13/2023 4.50 06/29/2023 3.19 06/14/2023 3.35 05/30/2023 2.85 05/18/2023 3.97 05/04/2023 3.87 04/20/2023 4.79 09/06/2021 6.85 03/15/2021 7.83 02/04/2021 6.15 01/31/2020 5.74 Abs Neut (ANC) (k/uL) Date Value 09/06/2021 4.61 03/15/2021 5.08 02/04/2021 3.89 01/31/2020 3.68 Abs Neut (k/uL) Date Value 09/06/2023 3.29 08/09/2023 2.53 07/27/2023 1.67 07/13/2023 3.49 06/29/2023 1.75 06/14/2023 2.38 05/30/2023 1.45 05/18/2023 2.58 05/04/2023 2.21 04/20/2023 2.93 Hemoglobin (g/dL) Date Value 09/06/2023 12.5 08/09/2023 13.2 07/27/2023 12.6 07/13/2023 12.4 06/29/2023 11.6 06/14/2023 12.2 05/30/2023 11.9 05/18/2023 11.3 05/04/2023 10.8 04/20/2023 11.1 09/06/2021 14.0 03/15/2021 14.0 02/04/2021 13.3 01/31/2020 13.3 Platelet Count (k/uL) Date Value 09/06/2023 105 08/09/2023 105 07/27/2023 123 07/13/2023 97 06/29/2023 121 06/14/2023 107 05/30/2023 128 05/18/2023 131 05/04/2023 147 04/20/2023 146 09/06/2021 157 03/15/2021 173 02/04/2021 148 01/31/2020 168 Glucose (mg/dL) Date Value 09/06/2023 105 08/09/2023 100 07/13/2023 100 06/29/2023 99 06/14/2023 163 05/30/2023 153 05/18/2023 100 05/04/2023 101 04/20/2023 123 04/06/2023 118 02/04/2021 98 01/31/2020 90 Creatinine (mg/dL) Date Value 09/06/2023 0.83 08/09/2023 0.98 07/13/2023 0.80 06/29/2023 0.80 06/14/2023 0.72 05/30/2023 0.72 05/18/2023 0.72 05/04/2023 0.68 04/20/2023 0.71 04/06/2023 0.73 02/04/2021 0.72 01/31/2020 0.70 Calcium (mg/dL) Date Value 02/04/2021 9.1 01/31/2020 9.5 Calcium, Total (mg/dL) Date Value 09/06/2023 9.4 08/09/2023 8.9 07/13/2023 8.5 06/29/2023 8.4 06/14/2023 8.6 05/30/2023 8.6 05/18/2023 8.4 05/04/2023 7.7 04/20/2023 9.0 04/06/2023 8.1 M-Protein Concentration (g/dL) Date Value 08/09/2023 0.29 07/13/2023 0.31 06/29/2023 0.33 06/14/2023 0.40 05/30/2023 0.39 05/18/2023 0.46 05/04/2023 0.06 04/20/2023 0.13 04/06/2023 0.58 03/29/2023 0.11 03/02/2023 1.20 02/22/2023 1.35 02/15/2023 1.39 01/17/2023 1.19 [place] Free, Serum Date Value 08/09/2023 16.0 mg/L 07/13/2023 Comment: Unable to assay. Specimen hemolyzed. Rarely, increased serum free light chains levels may not be detected or accurately quantified due to prozone phenomenon or in high viscosity samples using this immunoturbidimetric assay. Correlation with other laboratory results and clinical findings is recommended. The [place] Free Light Chain was performed using the Binding Site Optilite immunoturbidimetric method. Result obtained with different assay methods or kits cannot be used interchangeably. 06/29/2023 21.2 mg/L 06/14/2023 18.6 mg/L 05/30/2023 21.7 mg/L 05/18/2023 20.8 mg/L 05/04/2023 20.8 mg/L 04/20/2023 17.7 mg/L 04/06/2023 21.9 mg/L 03/29/2023 21.4 mg/L 03/02/2023 21.3 mg/L 02/22/2023 30.5 mg/L 02/15/2023 35.2 mg/L [place] Free, Serum (mg/L) Date Value 08/09/2023 13.0 07/13/2023 10.4 06/29/2023 11.5 06/14/2023 9.5 05/30/2023 10.4 05/18/2023 10.1 05/04/2023 10.4 04/20/2023 6.6 04/06/2023 13.0 03/29/2023 13.0 03/02/2023 4.6 02/22/2023 11.1 02/15/2023 10.4 Interpretation (MPA) (no units) Date Value 08/09/2023 There is an atypical restricted band present in the IgG and kappa regions. The location of the IgG kappa band suggests the presence of daratumumab, although one cannot rule out the possibility that this band represents a disease-related monoclonal protein. If clinically required, specific testing for daratumumab may be ordered to confirm the presence of the drug in this patient. 07/13/2023 There is an atypical restricted band present in the IgG and kappa regions. The location of the IgG kappa band suggests the presence of daratumumab, although one cannot rule out the possibility that this band represents a disease-related monoclonal protein. If clinically required, specific testing for daratumumab may be ordered to confirm the presence of the drug in this patient. 06/29/2023 There is an atypical restricted band present in the IgG and kappa regions. The location of the IgG kappa band suggests the presence of daratumumab, although one cannot rule out the possibility that this band represents a disease-related monoclonal protein. If clinically required, specific testing for daratumumab may be ordered to confirm the presence of the drug in this patient. 06/14/2023 Atypical restricted bands are present in the IgG and kappa regions. Consistent with IgG kappa monoclonal gammopathy. 05/30/2023 There is an atypical restricted band present in the IgG and kappa regions. The location of the IgG kappa band suggests the presence of daratumumab, although one cannot rule out the possibility that this band represents a disease-related monoclonal protein. If clinically required, specific testing for daratumumab may be ordered to confirm the presence of the drug in this patient. Imaging - MRI 12/29/2022: demonstrating mild expansion and irregular cortical bone in medial left clavicle. - Bone scintography 01/05/2023: increased uptake in left sternoclavicular joint, and medial clavicle. - CT left clavicle/shoulder 01/11/2023: permeative lytic lesion with pathological fracture of left medial clavicle. Low-dose CT scan of the whole body (02/22/2023) 1. Stable expansile, lytic bone lesion with associated cortical destruction involving the medial left clavicle, corresponding with the site of recent biopsy. 2. There is a lytic lesion involving the posterior right ninth rib at the costovertebral joint with disruption of the posterior cortex. 3. No other lytic bone lesions identified. 4. 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 Correlation with prior outside studies, if available, would be helpful. This could be further evaluated with dedicated head CT. 5. Additional findings as above which are stable from the recent chest and abdominopelvic CT exams. Pathology: Image guided biopsy of the mid left clavicle (01/30/2023) FINAL DIAGNOSIS A. Lesion, left clavicular head, biopsy: - Plasma cell neoplasm (kappa). - See comment. CVMisa/sb/02/01/2023 Diagnosis Comment Histologic sections show fragments of blood clot associated with clusters of plasma cells. The plasma cells are intermediate sized, with abundant cytoplasm and round, eccentric nuclei with mature chromatin. Immunohistochemical stains have been performed with appropriately staining controls. The plasma cells are positive for CD138. On the stains for kappa or lambda they appear monotypic kappa. 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 Further classification of this process requires correlation with clinical, radiologic, and laboratory findings. Impression and Plan Cancer Staging No matching staging information was found for the patient. ##Suspected multiple myeloma Cytogenetic risk category: Standard risk Frailty Score: 0 IMWG Response Criteria: Newly diagnosed Renal: Normal creatinine, clinically no evidence for renal dysfunction. Infectious diseases: No current infection, no need for prophylaxis Musculoskeletal: Chronic pain, satisfactorily controlled. Bone modifying therapy: zometa Venous thromboembolism risk: asa while on roshan control counseling: Does not apply since patient is naturally postmenopausal for greater than24 months or post hysterectomy or post bilateral oophorectomy Neurology: No neurologic symptoms Health maintenance discussed: Regular exercise and Appropriate diet Side effects from current medications: None Mrs. Dickinson is an 87-year-old female with excellent performance status who was recently diagnosedwith a fracture of the left mid clavicle without evidence of trauma to the site. An image guided biopsy revealed plasma cell involvement and a initial protein electrophoresis demonstrated a monoclonal paraprotein 1.19 mg/dL. Cross-sectional imaging revealed no evidence of additional osseous disease. She continues on the Agnes regimen with excellent tolerance of treatment and performance status. Her intact monoclonal paraprotein has fluctuated; however, this is in the context of daratumumab treatment and an underlying CD5+ B-cell clone. Her total IgG level has normalized and there are no other i ndications of symptomatic or biochemical progression. Overall, she is likely at least achieved a VGPR and probably a CR. I am attributing her positive immunofixation to the presence of daratumumab. Her performance status remains excellent. We will continue aspirin, acyclovir, and bone stabilizing therapy. We will continue her treatment as planned with follow-up in 4 weeks. Plan Summary: -Continue daratumumab and lenalidomide (dexamethasone dropped based on Agnes protocol) with lenalidomide 10 mg day 1 through 21 of a 28-day cycle for now -Dexamethasone eliminated from treatment plan -Continue bone stabilizing therapy -Continue acyclovir and aspirin -Follow-up paraprotein labs from [facility] -RTC in 4 weeks -consult nutrition I spent a total of 30 minutes on the date of the service which included preparing to see the patient, [id number] patient care, completing clinical documentation, obtaining and/or reviewing separately obtained history, performing a medically appropriate examination, and communicating results to the patient/family/caregiver. Alvin Balderas APRN.ROSE MARIE documented in this encounterMagruder Hospital02-15-2024 Nurse Note* Sandra Ortega LPN - 09/07/2023 12:59 PM EST Additional intake questions: Has the patient had fever, nausea, vomiting, diarrhea, constipation, fatigue for > 1 week? Yes, fatigue nose bleed over the weekend Does the patient have a decreased appetite? No Does patient want to see a Housekeeping Department Worker? No (yes to any of above refer patient to schedulers for dietitian appointment) ) Does patient have any new or increased numbness or tingling of extremities? No Is patient interested in fertility information? No Does patient need any prescription refills? No Does patient have an advanced directive in place? yes at home documented in this encounterMagruder Hospital01-30-2024 Miscellaneous Notes* Telephone Encounter - Edie Martinez RPh - 08/22/2023 4:11 PM EST Pt will be due for a refill of Revlimid soon. If therapy is being continued, please send a refill via eRx to [facility]. To avoid any delays in processing, please make sure that the comments section of the Rx includes: - Authorization # - Patient risk category Thank you in advance for your assistance! Edie Martinez PharmD, BCOP Clinical Pharmacist, Oncology [facility] P: , F: Pool: P [facility] Pool #: [id number] documented in this encounterMagruder Hospital12-05-2023 History of Present illness Narrative* Edie Martinez RPh - 06/27/2023 9:44 AM EST [facility] SPECIALTY CLINICAL ASSESSMENT - CELGENE REMS HEADER Patient is not a female of reproductive potential Lenalidomide - Patient Not of Reproductive Potential V2 All boxes and spaces must be marked or filled in during counseling with the patient for every prescription. Edie Martinez RPh 10:26 AM June 27, 2023 * Edie Martinez RPh - 06/27/2023 9:44 AM EST [facility] Refill Assessment Medication(s): Revlimid Patient's current medication list and adherence status to current therapy were reviewed by Specialty Pharmacy clinical pharmacist to identify any new drug interactions or non-compliance to therapy. Therapy continues to be appropriate for disease, patient response, and medical condition. Verification of therapeutic benefit and effectiveness with current therapy was completed. Adverse events, barriers in adherence, and side effects were assessed and addressed if applicable. Will proceed with refill with no changes in therapy - patient progressing towards achieving therapeutic goals based on medication- specific laboratory parameters, disease state markers and outcomes. Steam Finisher Assessment Patient confirmed: Yes Med/dose confirmed: Yes Missed doses: No Estimated days supply on hand: 0 Next cycle/dose due: 07/04/23 (last cycle started on 06/06/23) Copay amount: 0 Payment confirmed: Yes Delivery method: FedEx Signature required: Required (, Medicaid, patient preference) Delivery address: [address] [place] [address] Delivery date: 06/29/23 Questions or concerns for the pharmacist?: No [facility] Visit Assessment - Hematology/Oncology: Assessment to use: Refill Vaccination Assessment: Date of influenza vaccination reminder: 04/06/2023 Date of most recent vaccination assessment: 04/06/2023 Treatment Plan Information: Treatment Plan Information: Diagnosis: Multiple myeloma - newly diagnosed Previous treatment(s): none, newly diagnosed Treatment plan: Revlimid (lenalidomide) + daratumumab + dexamethasone Starting Dose/Titration: Take 1 capsule (10mg) by mouth daily at bedtime for 21 days on, 7 days off. - Renal dose reduction required?: yes - CrCl 47mL/min, usual dose 25mg: PI recommends DR to 10mg daily, may increase to 15mg after 2 cycles if tolerating; dose reduced to 10 mg. Administration: - Take with or without food - Take at the same time each day with water; swallow whole Warnings: include but are not limited to - CONGRESSIONAL AIDE effects (dizziness, fatigue) - Tumor Flare, TLS - Venous and arterial thromboembolism (DVT, PE, TN, stroke) - BBW - Hematologic toxicity (neutropenia and thrombocytopenia) - BBW - Embryo- toxicity - BBW - No blood (or semen) donations during and 4 weeks post discontinuation Adverse reactions: include but are not limited to - Hepatotoxicity - Peripheral edema - Derm rxns (pruritis, skin rash, xeroderma) - Diarrhea > constipation; decrease appetite, abdominal pain - N/V (min to low) - BMS (neutropenia, thrombocytopenia, anemia) - Fatigue, asthenia, arthralgia, headache; back pain, muscle cramps/spasms Monitoring: - CBC with diff (MCL - weekly C1, Q2 weeks C2-4, then monthly; MDS - weekly x8 weeks, then at leastmonthly; MM - weekly x2 cycles; Q2 weeks C3, then monthly; Follicular and marginal zone lymphoma - weekly x3 weeks, Q2 weeks C2-4, then monthly) - sCr, LFTs (periodically) - TSH (baseline, then every 2-3 months) - ECG when clinically indicated - S/S infection, bruising, bleeding, hepatoxocity, 2ndry malignancy, thromboembolism, derm toxicity, TLS - test (for females of reproductive potential) - Hep B screening Drug-Drug Interactions: no interactions identified by Jennifer Baseline: - CBCD 02/22/23 - TSH 1.680 on 02/15/23 - CrCl 47mL/min on 02/22/23 - Hep B screening 02/23/23 Estimated Start Date Info: Per Dr. Voss's discretion MDO to confirm DR for current CrCl - dose adjusted to 10 mg daily. Estimated Treatment Duration: Continue until disease progression or unacceptable toxicity. Edie Martinez RPh documented in this encounterMagruder Hospital11-08-2023 History of Present illness Narrative* Cyrus Ramirez RT(R) - 05/31/2023 3:20 PM EST Radiology Service Progress Note PATIENT NAME: Kayley Dickinson DATE OF SERVICE: May 31, 2023 TIME: 3:25 PM PATIENT IDENTITY VERIFICATION COMPLETED USING TWO (2) IDENTIFIERS: Name and Date of confirmedby patient verbally. FALL SCREENING: Has the patient had 2 falls in the last year or 1 fall with injury or currently using an Ambulatory Assistive Device (Walker, Cane, Wheelchair, Crutches, etc.)? No PATIENT GENDER DATA: Female. status: : No status: NO. PATIENT RELEVANT IMPLANT DATA REVIEWED: Not Applicable RADIOLOGY DEPARTMENT: General X-ray: Exam(s) Completed: Chest X-Ray PERIPHERAL IV DATA: Not applicable SIGNED BY: RT Ellen(R) May 31, 2023 3:25 PM documented in this encounterMagruder Hospital11-07-2023 History of Present illness Narrative* Edie Martinez RPh - 05/30/2023 9:36 AM EST [facility] RX SPECIALTY CLINICAL ASSESSMENT - CELGENE REMS HEADER Patient is not a female of reproductive potential Lenalidomide - Patient Not of Reproductive Potential V2 All boxes and spaces must be marked or filled in during counseling with the patient for every prescription. Edie Martinez RPh 9:43 AM May 30, 2023 * Edie Martinez RPh - 05/30/2023 9:36 AM EST [facility] Refill Assessment Medication(s): Revlimid Patient's current medication list and adherence status to current therapy were reviewed by Specialty Pharmacy clinical pharmacist to identify any new drug interactions or non-compliance to therapy. Therapy continues to be appropriate for disease, patient response, and medical condition. Verification of therapeutic benefit and effectiveness with current therapy was completed. Adverse events, barriers in adherence, and side effects were assessed and addressed if applicable. Will proceed with refill with no changes in therapy - patient progressing towards achieving therapeutic goals based on medication- specific laboratory parameters, disease state markers and outcomes. Steam Finisher Assessment Patient confirmed: Yes Med/dose confirmed: Yes Supplies needed: No supplies needed Missed doses: No Estimated days supply on hand: 0 Next cycle/dose due: 06/05/23 Copay amount: 0 Payment confirmed: Yes Delivery method: FedEx Signature required: Required (, Medicaid, patient preference) Delivery address: [address] [place] [address] Delivery date: 06/01/23 Questions or concerns for the pharmacist?: No [facility] Visit Assessment - Hematology/Oncology: Assessment to use: Refill Vaccination Assessment: Date of influenza vaccination reminder: 04/06/2023 Date of most recent vaccination assessment: 04/06/2023 Treatment Plan Information: Treatment Plan Information: Diagnosis: Multiple myeloma - newly diagnosed Previous treatment(s): none, newly diagnosed Treatment plan: Revlimid (lenalidomide) + daratumumab + dexamethasone Starting Dose/Titration: Take 1 capsule (10mg) by mouth daily at bedtime for 21 days on, 7 days off. - Renal dose reduction required?: yes - CrCl 47mL/min, usual dose 25mg: PI recommends DR to 10mg daily, may increase to 15mg after 2 cycles if tolerating; dose reduced to 10 mg. Administration: - Take with or without food - Take at the same time each day with water; swallow whole Warnings: include but are not limited to - CONGRESSIONAL AIDE effects (dizziness, fatigue) - Tumor Flare, TLS - Venous and arterial thromboembolism (DVT, PE, TN, stroke) - BBW - Hematologic toxicity (neutropenia and thrombocytopenia) - BBW - Embryo- toxicity - BBW - No blood (or semen) donations during and 4 weeks post discontinuation Adverse reactions: include but are not limited to - Hepatotoxicity - Peripheral edema - Derm rxns (pruritis, skin rash, xeroderma) - Diarrhea > constipation; decrease appetite, abdominal pain - N/V (min to low) - BMS (neutropenia, thrombocytopenia, anemia) - Fatigue, asthenia, arthralgia, headache; back pain, muscle cramps/spasms Monitoring: - CBC with diff (MCL - weekly C1, Q2 weeks C2-4, then monthly; MDS - weekly x8 weeks, then at leastmonthly; MM - weekly x2 cycles; Q2 weeks C3, then monthly; Follicular and marginal zone lymphoma - weekly x3 weeks, Q2 weeks C2-4, then monthly) - sCr, LFTs (periodically) - TSH (baseline, then every 2-3 months) - ECG when clinically indicated - S/S infection, bruising, bleeding, hepatoxocity, 2ndry malignancy, thromboembolism, derm toxicity, TLS - test (for females of reproductive potential) - Hep B screening Drug-Drug Interactions: no interactions identified by Jennifer Baseline: - CBCD 02/22/23 - TSH 1.680 on 02/15/23 - CrCl 47mL/min on 02/22/23 - Hep B screening 02/23/23 Estimated Start Date Info: Per Dr. Voss's discretion MDO to confirm DR for current CrCl - dose adjusted to 10 mg daily. Estimated Treatment Duration: Continue until disease progression or unacceptable toxicity. Edie Martinez RPh documented in this encounterMagruder Hospital11-03-2023 Miscellaneous Notes* Telephone Encounter - Nat Lucia Ma - 05/26/2023 5:01 PM EDT Patient was notified Nat Lucia Ma * Telephone Encounter - Hilton Pena MD - 05/26/2023 4:54 PM EDT Let patient know she would not need the Prev-20 any earlier then 2024. * Telephone Encounter - Kalee Barnhart LPN - 05/26/2023 10:40 AM EDT Patient calling to ask if she needs another Pneumonia vaccine? She had Prevnar 13 given 08/10/2015 and Pneumovax 23 given 03/29/2019. Her had a pneumonia vaccine 20 given to him in October. Please advise documented in this encounterMagruder Hospital10-13-2023 History of Present illness Narrative* Vince Freitas APRN.[employer]BE BENDER - 05/05/2023 2:30 PM EDT Images from the original note were not included. (Elements copied from Dr Beatty' note dated March 31, 2023 have been reviewed and updated where appropriate, and all reflect current assessment and medical decision making during today's encounter, May 05, 2023) [facility] Plasma Cell Disorder Clinic Reason for visit: Consult, referred by Dr. Alex Anaya for suspected multiple myeloma. My recommendations to the consult requesting physician are communicated via the shared electronic medical record or US mail. I spent 30 minutes in the visit, with more than 50% of the total [id number] time of the visit in counseling / coordination of care. Baseline assessment on initial diagnosis date 2022 Cancer Staging No matching staging information was found for the patient. Fracture of the left clavicle with plasma cell involvement and bone biopsy, remainder work-up pending Related Organ or Tissue Involvement (CRAB) or other Myeloma Defining Event (MDE): Bone disease: At least one lytic bone lesion on XR or CT if BMPC >=10%, at least 2 bone lesions on XR or CT if BMPC<10%, location of lytic lesion(s): Left clavicular head Antecedent plasma cell dyscrasia: No Myeloma FISH panel: Trisomy 15, trisomy 11 Cytogenetics: 46, XX LDH: 175 ISS stage: ISS Stage II Monoclonal proteins at diagnosis: Serum M-spike: 1.19 gm/dL, Involved serum free light chains: 35.2mg/L, and Uninvolved serum free light chains: 10.4 mg/L Total immunoglobulins at diagnosis: IgG = 1980 mg/dl, IgA = 58 mg/dl, IgM = 38 mg/dl Bone marrow plasma cell infiltration: Pending Systemic treatment and disease course - Myeloma response according to: International uniform response criteria, Durie et al. Leukemia 20:1467-73, 2006 and Moraie et al. ERRATUM in Leukemia 21:1134, 2007. Update in Debra SV et al. Blood 117: [id number], 2011 Local treatments (radiation, surgery, kyphoplasty) 03/02/2023 to 03/08/2023 The Left clavicle received a total dose of 2000 cGy in 5 fractions at 400 cGy/fraction using 6 MV photons with Wedged Pair technique. History of present illness Mrs. Dickinson is an 87-year-old female with past medical history that includes hypothyroidism, GERD, hyperlipidemia, prediabetes, and possible coronary artery disease who was initially evaluated for left mid clavicular pain and swelling at an urgent care facility on 12/26/2022. A 2 view x-ray of the clavicle obtained on that occasion did not reveal evidence of an osseous abnormality. Of note, the pa tiejona did not experience antecedent trauma to the clavicle prior to that visit. He was initiated onMedrol Dosepak at the time of discharge. Follow-up MRI of the clavicle on 12/29/2022 demonstrated mild expansion and irregular cortical bone in the medial left clavicle. A bone scintigraphy study on 01/05/2023 demonstrated increased uptake in the left sternoclavicular joint medial clavicle, and a CT of the left clavicle and shoulder on 01/11/2023 demonstrated a permeative lytic lesion with a pathologic fracture of the left medial clavicle. The patient was evaluated in our orthopedic oncology clinic on 01/17/2023. CT scans of the chest abdomen and pelvis did not demonstrate any other evidence of overt osseous disease but did demonstrate hepatic hypodensities for which an MRI of the liver was suggested. An image guided biopsy left clavicle was performed demonstrated sheets of plasma cells. Currently paraprotein work-up prior to the current visit is a serum protein electrophoresis demonstrating a monoclonal spike of 1.19 mg/dL and a spot urine protein electrophoresis that does demonstrate a monoclonal paraprotein. The patient has no evidence of underlying bone marrow involvement in terms of her CBC which is entirely normal. Thereis no evidence of renal dysfunction or hypercalcemia. She denies a personal history of other pathologic fractures. She denies recent fevers, chills, night sweats, nausea, vomiting, diarrhea, voice changes, new rash, or weight loss. She has no personal history of malignancy and no strong family history of thrombophilia, bleeding diathesis, or hematologic cancer. Interim Updates: 03/31/2023: The returns evaluation management of symptomatic myeloma. She denies fevers, chills, night sweat nausea, vomiting, diarrhea, and peripheral neuropathy. She continues on aspirin and acyclovir. Pleated radiation therapy to the left clavicle with no residual pain at the site of the previous fracture. Her paraprotein labs demonstrate normalization of her involved serum free light chain and a decrease in her intact monoclonal paraprotein by approximately 50%. There is no evidence of renal dysfunction or hypercalcemia. Whole body low dose CT scan (see below) demonstrates 1/9 rib lytic lesion in addition to the known clavicular lesion. 05/05/2023: Mrs Dickinson is seen for a scheduled follow up visit. She is accompanied by her . Overall, she reports feeling well. Per her account, she has no pain in the area of her L clavicle.Reports two episodes of mild epistaxis over past month. States she has seen ENT in [place] and was told the recurrent nose bleeds were due to the anatomy of the Right side of her nose. Per patient, she is occasionally constipated and eating prunes usually relieves the constipation. Confirms compliance with Revlimid dosing and schedule. Review of systems General: No fever , No chills, and No night sweats HEENT: No lumps, no difficulty chewing or swallowing, no enlarging tongue, no tooth aches. Musculoskeletal: See above Hematological: No bleeding or easy bruising. Lymphatic / Immune system: No lymph node enlargement or infection. Cardiovascular: No orthopnea, no dyspnea, no chest pain, no leg edema, no palpitations. Pulmonary: No dyspnea, no wheezing, no cough. Gastrointestinal: No nausea, vomitting, diarrhea, constipation, abdominal pain, or blood in stool. PAST MEDICAL HISTORY Diagnosis Date Advance directive discussed with patient 02/25/2022 Discussed 02/2022 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 rich plaque 03/31/2019 Current use of proton pump inhibitor 07/30/2019 Elevated fasting blood sugar 03/29/2019 GERD without esophagitis 03/29/2019 High cholesterol History of 2019 novel coronavirus disease (COVID-19) 09/07/202202/2022 History of squamous cell carcinoma of skin 03/31/2019 Right side of nose Hypothyroidism, acquired 03/29/[address] 02/25/2022 DPA: Micaela () Medicare annual wellness visit, subsequent 08/17/2020 Medical B eligibilty date 11/21/2002 Last done: 02/11/2020 Mixed hyperglyceridemia 03/29/2019 Multiple myeloma (HCC) 02/13/2023 Osteopenia of spine 03/29/2019 PAST SURGICAL HISTORY Procedure Laterality Date CATARACT EXTRACTION HX Bilateral 2017 COLONOSCOPY 10/25/2021 repeat only if needed HYSTERECTOMY partial - age 40 MASTECTOMY, SIMPLE, COMPLETE Bilateral 1976 with implants for fibrocystic disease (?) NUCLEAR STRESS TEST (WT<440#) (UNION) 08/09/2013 old records: negative PAST SURGICAL HISTORY OF 1995 breast implants Allergies / intolerances ALLERGIES Allergen Reactions Sulfa (Sulfonamide * Swelling Adhesive Tape-Silic* Rash Medications acyclovir (ZOVIRAX) 400 mg tablet Take 1 tablet by mouth once daily. aspirin, enteric coated (ASPIRIN, ENTERIC COATED) 81 mg EC tablet Take 81 mg by mouth. calcium carbonate-vitamin D3 (CALTRATE WITH VITAMIN D3) 600 mg(1,500mg) -800 unit tab Take 1 tabletby mouth twice daily. cefADROxil (DURICEF) 500 mg capsule Take 1 capsule by mouth twice daily. cyanocobalamin (VITAMIN B-12) 500 mcg tablet Take 1 tablet by mouth once daily. FERROUS SULFATE ORAL Take 1 tablet by mouth. ketoconazole (NIZORAL) 2 % cream Apply to affected area once daily. lenalidomide (REVLIMID) 10 mg capsule Take 1 capsule (10 MG) by mouth daily at bedtime for 21 days on and 7 days off. levothyroxine (SYNTHROID) 50 mcg tablet Take 1 tablet by mouth once daily. Take on empty stomach. For Thyroid. omega-3 acid ethyl esters (LOVAZA) 1 gram capsule Take 1 g by mouth. omeprazole (PRILOSEC) 40 mg capsule Take 1 capsule by mouth daily before breakfast. 1/2 hr before meal. pravastatin (PRAVACHOL) 80 mg tablet Take 1 tablet by mouth once daily. traMADol (ULTRAM) 50 mg tablet Take 1 tablet by mouth every 8 hours as needed for pain. Social History Tobacco Use Smoking status: Never Smokeless tobacco: Never Substance Use Topics Alcohol use: Not Currently Drug use: Not Currently FAMILY HISTORY Problem Relation Age of Onset Heart Failure Mother Diabetes Sister Hyperlipidemia Sister Thyroid Sister Breast Cancer Maternal Grandmother Diabetes Daughter Hyperlipidemia Sister Alzheimer's Disease No Family History Colon Cancer No Family History Prostate Cancer No Family History Ovarian cancer No Family History Uterine Cancer No Family History Coronary Artery Disease No Family History Hypertension No Family History Kidney Disease No Family History Seizures No Family History Stroke No Family History Physical examination BP 147/60 Pulse 77 Temp 36.7 C (98 F) (Temporal) Resp 18 Ht 154.9 cm (5' 0.98) Wt 51.7 kg (114 lb) SpO2 98% BMI 21.55 kg/m ECOG PS: 1- Restricted in physically strenuous activity. Carries out light duty. General appearance: Well appearing, alert, in no acute distress, well-hydrated, well nourished. HEENT: No lumps, no macroglossia, no icterus. Mucous membranes pink. Neck: Supple, no adenopathy; thyroid symmetric, normal size, no bruits Back: no pain to palpation Lungs: Lungs clear to auscultation. No wheezing, rhonchi, rales. Heart: RRR without murmur, gallop, or rubs. No ectopy Abdomen: Abdomen soft, non-tender. Bowel sounds normal. No masses, organomegaly Extremities: No deformities, edema, skin discoloration, clubbing or cyanosis. Good capillary refill. Laboratory tests WBC (k/uL) Date Value 05/04/2023 3.87 04/20/2023 4.79 04/13/2023 4.02 04/06/2023 3.87 03/29/2023 3.77 03/23/2023 2.95 03/16/2023 3.26 03/08/2023 4.22 03/02/2023 8.55 02/22/2023 5.10 09/06/2021 6.85 03/15/2021 7.83 02/04/2021 6.15 01/31/2020 5.74 Abs Neut (ANC) (k/uL) Date Value 09/06/2021 4.61 03/15/2021 5.08 02/04/2021 3.89 01/31/2020 3.68 Abs Neut (k/uL) Date Value 05/04/2023 2.21 04/20/2023 2.93 04/13/2023 1.95 04/06/2023 1.59 03/29/2023 1.99 03/23/2023 2.06 03/16/2023 2.56 03/08/2023 3.01 03/02/2023 6.17 02/22/2023 3.21 Hemoglobin (g/dL) Date Value 05/04/2023 10.8 04/20/2023 11.1 04/13/2023 10.3 04/06/2023 10.8 03/29/2023 11.3 03/23/2023 11.7 03/16/2023 12.8 03/08/2023 12.8 03/02/2023 13.0 02/22/2023 12.5 09/06/2021 14.0 03/15/2021 14.0 02/04/2021 13.3 01/31/2020 13.3 Platelet Count (k/uL) Date Value 05/04/2023 147 04/20/2023 146 04/13/2023 183 04/06/2023 175 03/29/2023 141 03/23/2023 124 03/16/2023 95 03/08/2023 146 03/02/2023 170 02/22/2023 141 09/06/2021 157 03/15/2021 173 02/04/2021 148 01/31/2020 168 Glucose (mg/dL) Date Value 05/04/2023 101 04/20/2023 123 04/06/2023 118 03/29/2023 129 03/16/2023 128 03/02/2023 102 02/22/2023 110 02/15/2023 85 01/17/2023 83 02/11/2022 95 02/04/2021 98 01/31/2020 90 Creatinine (mg/dL) Date Value 05/04/2023 0.68 04/20/2023 0.71 04/06/2023 0.73 03/29/2023 0.76 03/16/2023 0.82 03/02/2023 0.79 02/22/2023 0.71 02/15/2023 0.76 01/17/2023 0.75 12/29/2022 0.74 02/04/2021 0.72 01/31/2020 0.70 Calcium (mg/dL) Date Value 02/04/2021 9.1 01/31/2020 9.5 Calcium, Total (mg/dL) Date Value 05/04/2023 7.7 04/20/2023 9.0 04/06/2023 8.1 03/29/2023 7.9 03/16/2023 8.9 03/02/2023 9.4 02/22/2023 9.0 02/15/2023 9.1 01/17/2023 9.5 02/11/2022 9.5 M-Protein Concentration (g/dL) Date Value 04/20/2023 0.13 04/06/2023 0.58 03/29/2023 0.11 03/02/2023 1.20 02/22/2023 1.35 02/15/2023 1.39 01/17/2023 1.19 [place] Free, Serum (mg/L) Date Value 04/20/2023 17.7 04/06/2023 21.9 03/29/2023 21.4 03/02/2023 21.3 02/22/2023 30.5 02/15/2023 35.2 Lambda Free, Serum (mg/L) Date Value 04/20/2023 6.6 04/06/2023 13.0 03/29/2023 13.0 03/02/2023 4.6 02/22/2023 11.1 02/15/2023 10.4 Interpretation (MPA) (no units) Date Value 04/20/2023 Atypical restricted bands are present in the IgG and kappa regions. Consistent with IgG kappa monoclonal gammopathy. 04/06/2023 Atypical restricted bands are present in the IgG and kappa regions. Consistent with IgG kappa monoclonal gammopathy. 03/29/2023 Atypical restricted bands are present in the IgG and kappa regions. Consistent with IgG kappa monoclonal gammopathy. 03/02/2023 Atypical restricted bands are present in the IgG and kappa regions. Consistent with IgG kappa monoclonal gammopathy. 02/22/2023 Atypical restricted bands are present in the IgG and kappa regions. Consistent with IgG kappa monoclonal gammopathy. Imaging - MRI 12/29/2022: demonstrating mild expansion and irregular cortical bone in medial left clavicle. - Bone scintography 01/05/2023: increased uptake in left sternoclavicular joint, and medial clavicle. - CT left clavicle/shoulder 01/11/2023: permeative lytic lesion with pathological fracture of left medial clavicle. Low-dose CT scan of the whole body (02/22/2023) 1. Stable expansile, lytic bone lesion with associated cortical destruction involving the medial left clavicle, corresponding with the site of recent biopsy. 2. There is a lytic lesion involving the posterior right ninth rib at the costovertebral joint with disruption of the posterior cortex. 3. No other lytic bone lesions identified. 4. 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 Correlation with prior outside studies, if available, would be helpful. This could be further evaluated with dedicated head CT. 5. Additional findings as above which are stable from the recent chest and abdominopelvic CT exams. Pathology: Image guided biopsy of the mid left clavicle (01/30/2023) FINAL DIAGNOSIS A. Lesion, left clavicular head, biopsy: - Plasma cell neoplasm (kappa). - See comment. CVC/mm/02/01/2023 Diagnosis Comment Histologic sections show fragments of blood clot associated with clusters of plasma cells. The plasma cells are intermediate sized, with abundant cytoplasm and round, eccentric nuclei with mature chromatin. Immunohistochemical stains have been performed with appropriately staining controls. The plasma cells are positive for CD138. On the stains for kappa or lambda they appear monotypic kappa. 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 Further classification of this process requires correlation with clinical, radiologic, and laboratory findings. Impression and Plan Cancer Staging No matching staging information was found for the patient. ##Suspected multiple myeloma Cytogenetic risk category: Standard risk Frailty Score: 0 IMWG Response Criteria: Newly diagnosed Renal: Normal creatinine, clinically no evidence for renal dysfunction. Infectious diseases: No current infection, no need for prophylaxis Musculoskeletal: Chronic pain, satisfactorily controlled. Bone modifying therapy: We will need bone modifying agents after diagnostic work-up is complete Venous thromboembolism risk: No need for DVT prophylaxis control counseling: Does not apply since patient is naturally postmenopausal for greater than24 months or post hysterectomy or post bilateral oophorectomy Neurology: No neurologic symptoms Health maintenance discussed: Regular exercise and Appropriate diet Side effects from current medications: None Mrs. Dickinson is an 87-year-old female with excellent performance status who was recently diagnosedwith a fracture of the left mid clavicle without evidence of trauma to the site. An image guided biopsy revealed plasma cell involvement and a initial protein electrophoresis demonstrated a monoclonal paraprotein 1.19 mg/dL. She has no evidence of cytopenias, renal dysfunction, or bony disease outside of the clavicle at least on the basis of the imaging that has been accomplished at this point. In order to complete her work-up, we will arrange a bone marrow biopsy, a complete set of paraproteinlabs, and a low-dose CT scan of the whole body. We will also order an MRI of the liver based on thefindings of her contrast-enhanced CT of the abdomen. We did discuss the natural history and prognosis of multiple myeloma. After we complete her work-up, I anticipate beginning daratumumab, lenalidomide, and dexamethasone should she proved to have full-blown multiple myeloma. This is along the lines of the [facility] clinical study. Consent has been obtained for this regimen. Consult to radiation oncology will also be placed. Plan Summary: -Continue daratumumab, lenalidomide, dexamethasone with planned dose escalation of lenalidomide as tolerated -Bone marrow biopsy done 02/15/2023 -Completed palliative XRT to the left mid clavicle 03/08/2023 -Low-dose whole-body CT scan 03/08/2023 as detailed above. -MRI of the liver 03/10/2023 read as numerous benign hepatic cysts. MRI was based on hypodensities noticed incidentally on contrast-enhanced abdominal CT -Bisphosphonate to be initiated 04/21/2023 -Continue tramadol as needed for pain management -RTC in 4 weeks ASSESSMENT/PLAN: as outlined above 1. Multiple myeloma, remission status unspecified (HCC) - ICD9: 203.00, ICD10: C90.00 Vince Freitas APRN.CNP Hematologic [place]cology [place] [address] Email: [email or web address] CC: Dr. Alex Shields documented in this encounterMag[facility]10-13-[facility] Nurse Note* Anika Mcnamara LPN - 05/05/2023 1:28 PM EDT Clinical questionnaires incomplete due to Patient declined to complete or answer questions with nurse Additional intake questions: Has the patient had fever, nausea, vomiting, diarrhea, constipation, fatigue for > 1 week? Yes, fatigue Does the patient have a decreased appetite? No Does patient want to see a Housekeeping Department Worker? No (yes to any of above refer patient to schedulers for dietitian appointment) ) Does patient have any new or increased numbness or tingling of extremities? No Is patient interested in fertility information? No Does patient need any prescription refills? No Does patient have an advanced directive in place? No Electronically Signed By: Anika Mcnamara LPN documented in this encounterMagruder Hospital10-10-2023 History of Present illness Narrative* Edie Martinez RPh - 05/02/2023 10:02 AM EDT [facility] CLINICAL ASSESSMENT - CELGENE REMS HEADER Patient is not a female of reproductive potential Lenalidomide - Patient Not of Reproductive Potential V2 All boxes and spaces must be marked or filled in during counseling with the patient for every prescription. Edie Martinez RPh 12:30 PM May 02, 2023 * Edie Martinez RPh - 05/02/2023 10:02 AM EDT [facility] Refill Assessment Medication(s): Revilimid Patient's current medication list and adherence status to current therapy were reviewed by Specialty Pharmacy clinical pharmacist to identify any new drug interactions or non-compliance to therapy. Therapy continues to be appropriate for disease, patient response, and medical condition. Verification of therapeutic benefit and effectiveness with current therapy was completed. Adverse events, barriers in adherence, and side effects were assessed and addressed if applicable. Will proceed with refill with no changes in therapy - patient progressing towards achieving therapeutic goals based on medication- specific laboratory parameters, disease state markers and outcomes. Steam Finisher Assessment Patient confirmed: Yes Med/dose confirmed: Yes Supplies needed: No supplies needed Missed doses: Yes Count of missed doses: 5 Reason for missed doses: Nose bleed - as directed by Estimated days supply on hand: 5 Next cycle/dose due: 05/08/23 (Pt will call office to coordinate next cycle start date) Copay amount: 0 Payment confirmed: Yes Delivery method: FedEx Delivery address: [address] [place] [id number] Delivery date: 05/04/23 Questions or concerns for the pharmacist?: Yes Patient questions/concerns: Other (see text box below) Other questions/concerns: Pt will confirm next cycle start date with Doctor's office [facility] Visit Assessment - Hematology/Oncology: Assessment to use: Refill Vaccination Assessment: Date of influenza vaccination reminder: 04/06/2023 Date of most recent vaccination assessment: 04/06/2023 Treatment Plan Information: Treatment Plan Information: Diagnosis: Multiple myeloma - newly diagnosed Previous treatment(s): none, newly diagnosed Treatment plan: Revlimid (lenalidomide) + daratumumab + dexamethasone Starting Dose/Titration: Take 1 capsule (10mg) by mouth daily at bedtime for 21 days on, 7 days off. - Renal dose reduction required?: yes - CrCl 47mL/min, usual dose 25mg: PI recommends DR to 10mg daily, may increase to 15mg after 2 cycles if tolerating; dose reduced to 10 mg. Administration: - Take with or without food - Take at the same time each day with water; swallow whole Warnings: include but are not limited to - CONGRESSIONAL AIDE effects (dizziness, fatigue) - Tumor Flare, TLS - Venous and arterial thromboembolism (DVT, PE, TN, stroke) - BBW - Hematologic toxicity (neutropenia and thrombocytopenia) - BBW - Embryo- toxicity - BBW - No blood (or semen) donations during and 4 weeks post discontinuation Adverse reactions: include but are not limited to - Hepatotoxicity - Peripheral edema - Derm rxns (pruritis, skin rash, xeroderma) - Diarrhea > constipation; decrease appetite, abdominal pain - N/V (min to low) - BMS (neutropenia, thrombocytopenia, anemia) - Fatigue, asthenia, arthralgia, headache; back pain, muscle cramps/spasms Monitoring: - CBC with diff (MCL - weekly C1, Q2 weeks C2-4, then monthly; MDS - weekly x8 weeks, then at leastmonthly; MM - weekly x2 cycles; Q2 weeks C3, then monthly; Follicular and marginal zone lymphoma - weekly x3 weeks, Q2 weeks C2-4, then monthly) - sCr, LFTs (periodically) - TSH (baseline, then every 2-3 months) - ECG when clinically indicated - S/S infection, bruising, bleeding, hepatoxocity, 2ndry malignancy, thromboembolism, derm toxicity, TLS - test (for females of reproductive potential) - Hep B screening Drug-Drug Interactions: no interactions identified by Jennifer Baseline: - CBCD 02/22/23 - TSH 1.680 on 02/15/23 - CrCl 47mL/min on 02/22/23 - Hep B screening 02/23/23 Estimated Start Date Info: Per Dr. Voss's discretion MDO to confirm DR for current CrCl - dose adjusted to 10 mg daily. Estimated Treatment Duration: Continue until disease progression or unacceptable toxicity. Edie Martinez RPh documented in this encounterMagruder Hospital10-04-2023 Miscellaneous Notes* Telephone Encounter - Katey Croft RN - 04/26/2023 2:02 PM EDT Spoke to patient via telephone. Patient has not had any episodes of epistaxis since pausing Revlimid and aspirin. She will restart both tonight at bedtime. Consult to ENT for recurrent epistaxis placed and will assist patient with scheduling on a day thatshe is here. Encouraged her to call back if bleeding should start again. Katey Croft RN April 26, 2023 2:04 PM * Telephone Encounter - Apurva Peguero - 04/26/2023 11:29 AM EDT Kayley Roc Dickinson('s) is calling Jaime Beatty MD today regarding Care Coordination (NoseBleed) Patient has been identified by name and birthdate. Requesting response back: [phone] (home) [phone] (cell) Pt called requesting a return call to discuss her nose bleeds. Pt last bleed was last week, and currently does not have one but still want to talk to clinical staff. Apurva Cramer April 26, 2023 documented in this encounterMagruder Hospital09-13-2023 History of Present illness Narrative* Edie Martinez RP - 04/05/2023 4:19 PM EDT [facility] Refill Assessment Medication(s): Revlimid Patient's current medication list and adherence status to current therapy were reviewed by Specialty Pharmacy clinical pharmacist to identify any new drug interactions or non-compliance to therapy. Therapy continues to be appropriate for disease, patient response, and medical condition. Verification of therapeutic benefit and effectiveness with current therapy was completed. Adverse events, barriers in adherence, and side effects were assessed and addressed if applicable. Will proceed with refill with no changes in therapy - patient progressing towards achieving therapeutic goals based on medication- specific laboratory parameters, disease state markers and outcomes. [facility] Visit Assessment - Hematology/Oncology: Assessment to use: Refill Vaccination Assessment: Date of influenza vaccination reminder: 03/02/2023 Date of most recent vaccination assessment: 03/02/2023 Treatment Plan Information: Treatment Plan Information: Diagnosis: Multiple myeloma - newly diagnosed Previous treatment(s): none, newly diagnosed Treatment plan: Revlimid (lenalidomide) + daratumumab + dexamethasone Starting Dose/Titration: Take 1 capsule (10mg) by mouth daily at bedtime for 21 days on, 7 days off. - Renal dose reduction required?: yes - CrCl 47mL/min, usual dose 25mg: PI recommends DR to 10mg daily, may increase to 15mg after 2 cycles if tolerating; dose reduced to 10 mg. Administration: - Take with or without food - Take at the same time each day with water; swallow whole Warnings: include but are not limited to - CONGRESSIONAL AIDE effects (dizziness, fatigue) - Tumor Flare, TLS - Venous and arterial thromboembolism (DVT, PE, TN, stroke) - BBW - Hematologic toxicity (neutropenia and thrombocytopenia) - BBW - Embryo- toxicity - BBW - No blood (or semen) donations during and 4 weeks post discontinuation Adverse reactions: include but are not limited to - Hepatotoxicity - Peripheral edema - Derm rxns (pruritis, skin rash, xeroderma) - Diarrhea > constipation; decrease appetite, abdominal pain - N/V (min to low) - BMS (neutropenia, thrombocytopenia, anemia) - Fatigue, asthenia, arthralgia, headache; back pain, muscle cramps/spasms Monitoring: - CBC with diff (MCL - weekly C1, Q2 weeks C2-4, then monthly; MDS - weekly x8 weeks, then at leastmonthly; MM - weekly x2 cycles; Q2 weeks C3, then monthly; Follicular and marginal zone lymphoma - weekly x3 weeks, Q2 weeks C2-4, then monthly) - sCr, LFTs (periodically) - TSH (baseline, then every 2-3 months) - ECG when clinically indicated - S/S infection, bruising, bleeding, hepatoxocity, 2ndry malignancy, thromboembolism, derm toxicity, TLS - test (for females of reproductive potential) - Hep B screening Drug-Drug Interactions: no interactions identified by Ejnnifer Baseline: - CBCD 02/22/23 - TSH 1.680 on 02/15/23 - CrCl 47mL/min on 02/22/23 - Hep B screening 02/23/23 Estimated Start Date Info: Per Dr. Voss's discretion MDO to confirm DR for current CrCl - dose adjusted to 10 mg daily. Estimated Treatment Duration: Continue until disease progression or unacceptable toxicity. Edie Martinez RPh * Edie Martinez RPh - 04/05/2023 4:19 PM EDT [facility] CLINICAL ASSESSMENT - CELGENE REMS HEADER Patient is not a female of reproductive potential Lenalidomide - Patient Not of Reproductive Potential V2 All boxes and spaces must be marked or filled in during counseling with the patient for every prescription. Edie Martinez RPh 4:30 PM April 05, 2023 documented in this encounterMagruder Hospital09-12-2023 History of Present illness Narrative* Jaime Beatty MD - 04/04/2023 6:13 PM EDT Images from the original note were not included. [facility] Plasma Cell Disorder Clinic Reason for visit: Consult, referred by Dr. Alex Anaya for suspected multiple myeloma. My recommendations to the consult requesting physician are communicated via the shared electronic medical record or US mail. I spent greater than 60 minutes in the care of this patient. Baseline assessment on initial diagnosis date 2022 Cancer Staging No matching staging information was found for the patient. Fracture of the left clavicle with plasma cell involvement and bone biopsy, remainder work-up pending Related Organ or Tissue Involvement (CRAB) or other Myeloma Defining Event (MDE): Bone disease: At least one lytic bone lesion on XR or CT if BMPC >=10%, at least 2 bone lesions on XR or CT if BMPC<10%, location of lytic lesion(s): Left clavicular head Antecedent plasma cell dyscrasia: No Myeloma FISH panel: Trisomy 15, trisomy 11 Cytogenetics: 46, XX LDH: 175 ISS stage: ISS Stage II Monoclonal proteins at diagnosis: Serum M-spike: 1.19 gm/dL, Involved serum free light chains: 35.2mg/L, and Uninvolved serum free light chains: 10.4 mg/L Total immunoglobulins at diagnosis: IgG = 1980 mg/dl, IgA = 58 mg/dl, IgM = 38 mg/dl Bone marrow plasma cell infiltration: Pending Systemic treatment and disease course - Myeloma response according to: International uniform response criteria, Durie et al. Leukemia 20:1467-73, 2006 and Lew et al. ERRATUM in Leukemia 21:1134, 2007. Update in Debra SV et al. Blood 117: 5026-0941, 2011 Local treatments (radiation, surgery, kyphoplasty) None History of present illness Mrs. Dickinson is an 87-year-old female with past medical history that includes hypothyroidism, GERD, hyperlipidemia, prediabetes, and possible coronary artery disease who was initially evaluated for left mid clavicular pain and swelling at an urgent care facility on 12/26/2022. A 2 view x-ray of the clavicle obtained on that occasion did not reveal evidence of an osseous abnormality. Of note, the tk bell did not experience antecedent trauma to the clavicle prior to that visit. He was initiated onMedrol Dosepak at the time of discharge. Follow-up MRI of the clavicle on 12/29/2022 demonstrated mild expansion and irregular cortical bone in the medial left clavicle. A bone scintigraphy study on 01/05/2023 demonstrated increased uptake in the left sternoclavicular joint medial clavicle, and a CT of the left clavicle and shoulder on 01/11/2023 demonstrated a permeative lytic lesion with a pathologic fracture of the left medial clavicle. The patient was evaluated in our orthopedic oncology clinic on 01/17/2023. CT scans of the chest abdomen and pelvis did not demonstrate any other evidence of overt osseous disease but did demonstrate hepatic hypodensities for which an MRI of the liver was suggested. An image guided biopsy left clavicle was performed demonstrated sheets of plasma cells. Currently paraprotein work-up prior to the current visit is a serum protein electrophoresis demonstrating a monoclonal spike of 1.19 mg/dL and a spot urine protein electrophoresis that does demonstrate a monoclonal paraprotein. The patient has no evidence of underlying bone marrow involvement in terms of her CBC which is entirely normal. Thereis no evidence of renal dysfunction or hypercalcemia. She denies a personal history of other pathologic fractures. She denies recent fevers, chills, night sweats, nausea, vomiting, diarrhea, voice changes, new rash, or weight loss. She has no personal history of malignancy and no strong family history of thrombophilia, bleeding diathesis, or hematologic cancer. Interim Updates: 03/31/2023: The returns evaluation management of symptomatic myeloma. She denies fevers, chills, night sweat nausea, vomiting, diarrhea, and peripheral neuropathy. She continues on aspirin and acyclovir. Pleated radiation therapy to the left clavicle with no residual pain at the site of the previous fracture. Her paraprotein labs demonstrate normalization of her involved serum free light chain and a decrease in her intact monoclonal paraprotein by approximately 50%. There is no evidence of renal dysfunction or hypercalcemia. Whole body low dose CT scan (see below) demonstrates 1/9 rib lytic lesion in addition to the known clavicular lesion. Review of systems General: No fever , No chills, and No night sweats HEENT: No lumps, no difficulty chewing or swallowing, no enlarging tongue, no tooth aches. Musculoskeletal: See above Hematological: No bleeding or easy bruising. Lymphatic / Immune system: No lymph node enlargement or infection. Cardiovascular: No orthopnea, no dyspnea, no chest pain, no leg edema, no palpitations. Pulmonary: No dyspnea, no wheezing, no cough. Gastrointestinal: No nausea, vomitting, diarrhea, constipation, abdominal pain, or blood in stool. PAST MEDICAL HISTORY Diagnosis Date Advance directive discussed with patient 02/25/2022 Discussed 02/2022 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 rich plaque 03/31/2019 Current use of proton pump inhibitor 07/30/2019 Elevated fasting blood sugar 03/29/2019 GERD without esophagitis 03/29/2019 High cholesterol History of 2019 novel coronavirus disease (COVID-19) 09/07/202202/2022 History of squamous cell carcinoma of skin 03/31/2019 Right side of nose Hypothyroidism, acquired 03/29/[address] 02/25/2022 DPA: Micaela () Medicare annual wellness visit, subsequent 08/17/2020 Medical B eligibilty date 11/21/2002 Last done: 02/11/2020 Mixed hyperglyceridemia 03/29/2019 Multiple myeloma (HCC) 02/13/2023 Osteopenia of spine 03/29/2019 PAST SURGICAL HISTORY Procedure Laterality Date CATARACT EXTRACTION HX Bilateral 2018 COLONOSCOPY 10/25/2021 repeat only if needed HYSTERECTOMY partial - age 40 MASTECTOMY, SIMPLE, COMPLETE Bilateral 1977 with implants for fibrocystic disease (?) NUCLEAR STRESS TEST (WT<440#) (UNION) 08/09/2013 old records: negative PAST SURGICAL HISTORY OF 1995 breast implants Allergies / intolerances ALLERGIES Allergen Reactions Sulfa (Sulfonamide * Swelling Adhesive Tape-Silic* Rash Medications lenalidomide (REVLIMID) 10 mg capsule Take 1 capsule (10 MG) by mouth daily at bedtime for 21 days on and 7 days off. acyclovir (ZOVIRAX) 400 mg tablet Take 1 tablet by mouth once daily. levothyroxine (SYNTHROID) 50 mcg tablet Take 1 tablet by mouth once daily. Take on empty stomach. For Thyroid. traMADol (ULTRAM) 50 mg tablet Take 1 tablet by mouth every 8 hours as needed for pain. (Patient not taking: Reported on 03/21/2023) cefADROxil (DURICEF) 500 mg capsule Take 1 capsule by mouth twice daily. (Patient not taking: Reported on 01/30/2023) pravastatin (PRAVACHOL) 80 mg tablet Take 1 tablet by mouth once daily. omeprazole (PRILOSEC) 40 mg capsule Take 1 capsule by mouth daily before breakfast. 1/2 hr before meal. cyanocobalamin (VITAMIN B-12) 500 mcg tablet Take 1 tablet by mouth once daily. ketoconazole (NIZORAL) 2 % cream Apply to affected area once daily. FERROUS SULFATE ORAL Take 1 tablet by mouth. aspirin, enteric coated (ASPIRIN, ENTERIC COATED) 81 mg EC tablet Take 81 mg by mouth. omega-3 acid ethyl esters (LOVAZA) 1 gram capsule Take 1 g by mouth. calcium carbonate-vitamin D3 (CALTRATE WITH VITAMIN D3) 600 mg(1,500mg) -800 unit tab Take 1 tabletby mouth twice daily. Social History Tobacco Use Smoking status: Never Smokeless tobacco: Never Substance Use Topics Alcohol use: Not Currently Drug use: Not Currently FAMILY HISTORY Problem Relation Age of Onset Heart Failure Mother Diabetes Sister Hyperlipidemia Sister Thyroid Sister Breast Cancer Maternal Grandmother Diabetes Daughter Hyperlipidemia Sister Alzheimer's Disease No Family History Colon Cancer No Family History Prostate Cancer No Family History Ovarian cancer No Family History Uterine Cancer No Family History Coronary Artery Disease No Family History Hypertension No Family History Kidney Disease No Family History Seizures No Family History Stroke No Family History Physical examination BP 138/66 Pulse 81 Temp (Src) 97.4 (Oral) Resp 18 Wt 113 lb 11.2 oz (51.6kg) SpO2 98[ra]% ECOG PS: 1- Restricted in physically strenuous activity. Carries out light duty. General appearance: Well appearing, alert, in no acute distress, well-hydrated, well nourished. HEENT: No lumps, no macroglossia, no icterus. Mucous membranes pink. Neck: Supple, no adenopathy; thyroid symmetric, normal size, no bruits Back: no pain to palpation Lungs: Lungs clear to auscultation. No wheezing, rhonchi, rales. Heart: RRR without murmur, gallop, or rubs. No ectopy Abdomen: Abdomen soft, non-tender. Bowel sounds normal. No masses, organomegaly Extremities: No deformities, edema, skin discoloration, clubbing or cyanosis. Good capillary refill. Laboratory tests WBC (k/uL) Date Value 03/29/2023 3.77 03/23/2023 2.95 03/16/2023 3.26 03/08/2023 4.22 03/02/2023 8.55 02/22/2023 5.10 02/15/2023 5.28 02/10/2023 5.06 01/17/2023 5.36 12/27/2022 8.96 09/06/2021 6.85 03/15/2021 7.83 02/04/2021 6.15 01/31/2020 5.74 Abs Neut (ANC) (k/uL) Date Value 09/06/2021 4.61 03/15/2021 5.08 02/04/2021 3.89 01/31/2020 3.68 Abs Neut (k/uL) Date Value 03/29/2023 1.99 03/23/2023 2.06 03/16/2023 2.56 03/08/2023 3.01 03/02/2023 6.17 02/22/2023 3.21 02/15/2023 3.17 02/10/2023 3.04 01/17/2023 3.32 12/27/2022 7.23 Hemoglobin (g/dL) Date Value 03/29/2023 11.3 03/23/2023 11.7 03/16/2023 12.8 03/08/2023 12.8 03/02/2023 13.0 02/22/2023 12.5 02/15/2023 12.9 02/10/2023 12.8 01/17/2023 13.8 12/27/2022 13.5 09/06/2021 14.0 03/15/2021 14.0 02/04/2021 13.3 01/31/2020 13.3 Platelet Count (k/uL) Date Value 03/29/2023 141 03/23/2023 124 03/16/2023 95 03/08/2023 146 03/02/2023 170 02/22/2023 141 02/15/2023 149 02/10/2023 143 01/17/2023 158 12/27/2022 195 09/06/2021 157 03/15/2021 173 02/04/2021 148 01/31/2020 168 Glucose (mg/dL) Date Value 03/29/2023 129 03/16/2023 128 03/02/2023 102 02/22/2023 110 02/15/2023 85 01/17/2023 83 02/11/2022 95 02/04/2021 98 01/31/2020 90 Creatinine (mg/dL) Date Value 03/29/2023 0.76 03/16/2023 0.82 03/02/2023 0.79 02/22/2023 0.71 02/15/2023 0.76 01/17/2023 0.75 12/29/2022 0.74 02/11/2022 0.75 02/04/2021 0.72 01/31/2020 0.70 Calcium (mg/dL) Date Value 02/04/2021 9.1 01/31/2020 9.5 Calcium, Total (mg/dL) Date Value 03/29/2023 7.9 03/16/2023 8.9 03/02/2023 9.4 02/22/2023 9.0 02/15/2023 9.1 01/17/2023 9.5 02/11/2022 9.5 M-Protein Concentration (g/dL) Date Value 03/29/2023 0.11 03/02/2023 1.20 02/22/2023 1.35 02/15/2023 1.39 01/17/2023 1.19 [place] Free, Serum (mg/L) Date Value 03/29/2023 21.4 03/02/2023 21.3 02/22/2023 30.5 02/15/2023 35.2 Lambda Free, Serum (mg/L) Date Value 03/29/2023 13.0 03/02/2023 4.6 02/22/2023 11.1 02/15/2023 10.4 Interpretation (MPA) (no units) Date Value 03/29/2023 Atypical restricted bands are present in the IgG and kappa regions. Consistent with IgG kappa monoclonal gammopathy. 03/02/2023 Atypical restricted bands are present in the IgG and kappa regions. Consistent with IgG kappa monoclonal gammopathy. 02/22/2023 Atypical restricted bands are present in the IgG and kappa regions. Consistent with IgG kappa monoclonal gammopathy. 02/15/2023 Atypical restricted bands are present in the IgG and kappa regions. Consistent with IgG kappa monoclonal gammopathy. Imaging - MRI 12/29/2022: demonstrating mild expansion and irregular cortical bone in medial left clavicle. - Bone scintography 01/05/2023: increased uptake in left sternoclavicular joint, and medial clavicle. - CT left clavicle/shoulder 01/11/2023: permeative lytic lesion with pathological fracture of left medial clavicle. Low-dose CT scan of the whole body (02/22/2023) 1. Stable expansile, lytic bone lesion with associated cortical destruction involving the medial left clavicle, corresponding with the site of recent biopsy. 2. There is a lytic lesion involving the posterior right ninth rib at the costovertebral joint with disruption of the posterior cortex. 3. No other lytic bone lesions identified. 4. 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 Correlation with prior outside studies, if available, would be helpful. This could be further evaluated with dedicated head CT. 5. Additional findings as above which are stable from the recent chest and abdominopelvic CT exams. Pathology: Image guided biopsy of the mid left clavicle (01/30/2023) FINAL DIAGNOSIS A. Lesion, left clavicular head, biopsy: - Plasma cell neoplasm (kappa). - See comment. CVC/mm/02/01/2023 Diagnosis Comment Histologic sections show fragments of blood clot associated with clusters of plasma cells. The plasma cells are intermediate sized, with abundant cytoplasm and round, eccentric nuclei with mature chromatin. Immunohistochemical stains have been performed with appropriately staining controls. The plasma cells are positive for CD138. On the stains for kappa or lambda they appear monotypic kappa. 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 Further classification of this process requires correlation with clinical, radiologic, and laboratory findings. Impression and Plan Cancer Staging No matching staging information was found for the patient. ##Suspected multiple myeloma Cytogenetic risk category: Unknown Frailty Score: 0 IMWG Response Criteria: Newly diagnosed Renal: Normal creatinine, clinically no evidence for renal dysfunction. Infectious diseases: No current infection, no need for prophylaxis Musculoskeletal: Chronic pain, satisfactorily controlled. Bone modifying therapy: We will need bone modifying agents after diagnostic work-up is complete Venous thromboembolism risk: No need for DVT prophylaxis control counseling: Does not apply since patient is naturally postmenopausal for greater than24 months or post hysterectomy or post bilateral oophorectomy Neurology: No neurologic symptoms Health maintenance discussed: Regular exercise and Appropriate diet Side effects from current medications: None Mrs. Dickinson is an 87-year-old female with excellent performance status who was recently diagnosedwith a fracture of the left mid clavicle without evidence of trauma to the site. An image guided biopsy revealed plasma cell involvement and a initial protein electrophoresis demonstrated a monoclonal paraprotein 1.19 mg/dL. She has no evidence of cytopenias, renal dysfunction, or bony disease outside of the clavicle at least on the basis of the imaging that has been accomplished at this point. In order to complete her work-up, we will arrange a bone marrow biopsy, a complete set of paraproteinlabs, and a low-dose CT scan of the whole body. We will also order an MRI of the liver based on thefindings of her contrast-enhanced CT of the abdomen. We did discuss the natural history and prognosis of multiple myeloma. After we complete her work-up, I anticipate beginning daratumumab, lenalidomide, and dexamethasone should she proved to have full-blown multiple myeloma. This is along the lines of the Agnes clinical study. Consent has been obtained for this regimen. Consult to radiation oncology will also be placed. Plan Summary: -Continue daratumumab, lenalidomide, dexamethasone with planned dose escalation of lenalidomide as tolerated -Bone marrow biopsy planned for this coming 02/15/2023 -Consultation to radiation oncology for possible palliative RT to the left mid clavicle -Low-dose whole-body CT scan to assess for other sites of osseous disease -MRI of the liver based on hypodensities noticed incidentally on contrast- enhanced abdominal CT -Bisphosphonate to be initiated with her next cycle of treatment -Continue tramadol as needed for pain management -RTC in 4 weeks to initiate therapy pending aforementioned work-up Jaime Beatty MD, [facility] Hematology and Medical Oncology [facility] [address] [facility], [place] [facility] [id number] CC: Dr. Alex Shields documented in this encounterMagruder Hospital09-08-2023 Nurse Note* Sandra Ortega LPN - 03/31/2023 4:15 PM EDT Additional intake questions: Has the patient had fever, nausea, vomiting, diarrhea, constipation, fatigue for > 1 week? Yes, nausea, constipation and fatigue Does the patient have a decreased appetite? Yes Does patient want to see a Housekeeping Department Worker? No (yes to any of above refer patient to schedulers for dietitian appointment) ) Does patient have any new or increased numbness or tingling of extremities? No Is patient interested in fertility information? No Does patient need any prescription refills? No Does patient have an advanced directive in place? yes at home documented in this encounterMagruder Hospital08-29-2023 Instructions* Patient Instructions* Hilton Pena MD - 03/21/2023 1:11 PM EDT Try Dalysm 12 hr cough syrup. Please bring in copies of your power of business attorney for health care and living will. Please get labs done on or after 09/08/2023 prior to your next visit. documented in this encounterMagruder Hospital08-29-2023 History of Present illness Narrative* Hilton Pena MD - 03/21/2023 1:00 PM EDT Medicare Yearly Visit Medical B eligibilty date 11/21/2002 Date of last exam 02/25/2022 PAST MEDICAL HISTORY PAST MEDICAL HISTORY Diagnosis Date 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 rich plaque 03/31/2019 Current use of proton pump inhibitor 07/30/2019 Elevated fasting blood sugar 03/29/2019 GERD without esophagitis 03/29/2019 History of squamous cell carcinoma of skin 03/31/2019 Right side of nose Hypothyroidism, acquired 03/29/2019 Mixed hyperglyceridemia 03/29/2019 Osteopenia of spine 03/29/2019 PAST SURGICAL HISTORY PAST SURGICAL HISTORY Procedure Laterality Date CATARACT EXTRACTION HX Bilateral 2017 COLONOSCOPY 2014 HYSTERECTOMY partial - age 40 NUCLEAR STRESS TEST (WT<440#) (UNION) 08/09/2013 old records: negative PAST SURGICAL HISTORY OF 1995 breast implants Sulfa (Sulfonamide Antibiotics); Adhesive Tape-Silicones Medications reviewed: Yes FAMILY HISTORY FAMILY HISTORY Problem Relation Age of Onset Heart Failure Mother Diabetes Sister Hyperlipidemia Sister Thyroid Sister Breast Cancer Maternal Grandmother Diabetes Daughter Hyperlipidemia Sister Alzheimer's Disease No Family History Colon Cancer No Family History Prostate Cancer No Family History Ovarian cancer No Family History Uterine Cancer No Family History Coronary Artery Disease No Family History Hypertension No Family History Kidney Disease No Family History Seizures No Family History Stroke No Family History SOCIAL HISTORY: SOCIAL HISTORY Social History Tobacco Use Smoking status: Never Smoker Smokeless tobacco: Never Used Substance Use Topics Alcohol use: Not Currently Drug use: Not Currently Kayley denies regular aerobic exercise. She watches her diet for sodium, low fat and low cholesterol most of the time. List of current specialists seen: Dr. Alexander, Derm: [facility] Planning discussed including patients advanced directive wishes: Yes I am willing to follow Kayley's advanced directives. PHQ-2 / Depression screen not at risk for depression. Functional Ability/Safety Screen 1. Was the patient's timed Up and Go test unsteady or longer than 30 seconds? No 2. Does the patient need help with the phone, transportation, shopping,preparing meals, housework, laundry, medications or managing money? No 3. Does your home have rugs in the hallway, lack of grab bars in the bathroom, lack of handrails onthe stairs or have poor lighting? No Hearing Evaluation: hard of hearing, wearing Aids PHYSICAL EXAM BP 118/60 (BP Site: Left Arm, BP Position: Sitting, BP Cuff Size: Regular Adult) Pulse 84 Resp 18 Ht 154.9 cm (5' 1) Wt 51.7 kg (114 lb) BMI 21.54 kg/m Alert and oriented X 3: YES Body mass index is 21.54 kg/m . Visual acuity: sees eye doctor See below ASSESSMENT/PLAN: 87 year old female The following prevention plan was discussed during the office visit and provided to the patient: See below Chief Complaint Patient presents with: Medicare Wellness Exam HPI Kayley Dickinson is a 87 year old female who presents here today for Chronic Medical Conditions. and Medicare Annual Visit. Office visit - medicare wellness 03/21/2023 Patient with hx of hyperlipidemia, hypothyroidism, GERD, elevated blood sugar, CAD as well as thosereviewed and addressed below. Recently diagnose with multiple myoloma. Patient has had 5 radiation Tx and getting oral meds and injections currently. Getting some dental work completed. Oncology plans to start bisphosphonate once dental work completed. Office visit - 6 month follow up 08/2022 Patient with hx of hyperlipidemia, hypothyroidism, GERD, elevated blood sugar, CAD as well as thosereviewed and addressed below. Patient has been doing well. Did have COVID back in February 2022. She has had no residual issues andhas since gotten her Booster. Past medical history, appointments, medications, allergies reviewed. Previous Medical History PAST MEDICAL HISTORY Diagnosis Date Advance directive discussed with patient 02/25/2022 Discussed 02/2022 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 rich plaque 03/31/2019 Current use of proton pump inhibitor 07/30/2019 Elevated fasting blood sugar 03/29/2019 GERD without esophagitis 03/29/2019 High cholesterol History of 2019 novel coronavirus disease (COVID-19) 09/07/202202/2022 History of squamous cell carcinoma of skin 03/31/2019 Right side of nose Hypothyroidism, acquired 03/29/[address] 02/25/2022 DPA: Micaela () Medicare annual wellness visit, subsequent 08/17/2020 Medical B eligibilty date 11/21/2002 Last done: 02/11/2020 Mixed hyperglyceridemia 03/29/2019 Osteopenia of spine 03/29/2019 Previous Surgical History PAST SURGICAL HISTORY Procedure Laterality Date CATARACT EXTRACTION HX Bilateral 2017 COLONOSCOPY 10/25/2021 repeat only if needed HYSTERECTOMY partial - age 40 MASTECTOMY, SIMPLE, COMPLETE Bilateral 1977 with implants for fibrocystic disease (?) NUCLEAR STRESS TEST (WT<440#) (UNION) 08/09/2013 old records: negative PAST SURGICAL HISTORY OF 1995 breast implants Family History FAMILY HISTORY Problem Relation Age of Onset Heart Failure Mother Diabetes Sister Hyperlipidemia Sister Thyroid Sister Breast Cancer Maternal Grandmother Diabetes Daughter Hyperlipidemia Sister Alzheimer's Disease No Family History Colon Cancer No Family History Prostate Cancer No Family History Ovarian cancer No Family History Uterine Cancer No Family History Coronary Artery Disease No Family History Hypertension No Family History Kidney Disease No Family History Seizures No Family History Stroke No Family History Patient Allergies ALLERGIES Allergen Reactions Sulfa (Sulfonamide * Swelling Adhesive Tape-Silic* Rash Current Medications Current Outpatient Medications on File Prior to Visit Medication Sig lenalidomide (REVLIMID) 10 mg capsule Take 1 capsule (10 MG) by mouth daily at bedtime for 21 days on and 7 days off. acyclovir (ZOVIRAX) 400 mg tablet Take 1 tablet by mouth once daily. levothyroxine (SYNTHROID) 50 mcg tablet Take 1 tablet by mouth once daily. Take on empty stomach. For Thyroid. traMADol (ULTRAM) 50 mg tablet Take 1 tablet by mouth every 8 hours as needed for pain. cefADROxil (DURICEF) 500 mg capsule Take 1 capsule by mouth twice daily. (Patient not taking: Reported on 01/30/2023) pravastatin (PRAVACHOL) 80 mg tablet Take 1 tablet by mouth once daily. omeprazole (PRILOSEC) 40 mg capsule Take 1 capsule by mouth daily before breakfast. 1/2 hr before meal. cyanocobalamin (VITAMIN B-12) 500 mcg tablet Take 1 tablet by mouth once daily. ketoconazole (NIZORAL) 2 % cream Apply to affected area once daily. FERROUS SULFATE ORAL Take 1 tablet by mouth. aspirin, enteric coated (ASPIRIN, ENTERIC COATED) 81 mg EC tablet Take 81 mg by mouth. omega-3 acid ethyl esters (LOVAZA) 1 gram capsule Take 1 g by mouth. calcium carbonate-vitamin D3 (CALTRATE WITH VITAMIN D3) 600 mg(1,500mg) -800 unit tab Take 1 tabletby mouth twice daily. No current facility-administered medications on file prior to visit. Social History Social History Tobacco Use Smoking status: Never Smokeless tobacco: Never Substance Use Topics Alcohol use: Not Currently Drug use: Not Currently Review of Symptoms REVIEW OF SYSTEMS GENERAL: No weight loss, malaise or fevers HEENT: Negative for frequent or significant headaches, No changes in hearing or vision, no nose bleeds or other nasal problems NECK: Negative for lumps, goiter, pain and significant neck swelling RESPIRATORY: Negative for cough, hemoptysis, COPD, dyspnea or shortness of breath. Slight wheezing. CARDIOVASCULAR: Negative for chest pain, leg swelling, hypertension, CHF or palpitations GI: No nausea, or diarrhea, No heartburn or reflux symptoms, and no blood on the stool. Had some onher TP last week with known Hx of a hemorrhoid. Slight nausea at times. : No history of dysuria, frequency or blood MUSCULOSKELETAL: Negative for joint pain or swelling, back pain or muscle pain SKIN: Negative for lesions, rash, and itching PSYCH: Negative for sleep disturbance, mood disorder and recent psychosocial stressors HEMATOLOGY/LYMPHOLOGY: Negative for prolonged bleeding, bruising easily or swollen nodes ENDOCRINE: Negative for cold or heat intolerance, polyuria, polydipsia and goiter NEURO: No history of headaches, syncope, paralysis, seizures or tremors EXAM: BP 118/60 (BP Site: Left Arm, BP Position: Sitting, BP Cuff Size: Regular Adult) Pulse 84 Resp 18 Ht 154.9 cm (5' 1) Wt 51.7 kg (114 lb) BMI 21.54 kg/m Last 5 Encounter Wt Readings: Date: Wt: 03/21/2023 51.7 kg (114 lb) 03/08/2023 51.6 kg (113 lb 12.8 oz) 02/23/2023 51.8 kg (114 lb 4.8 oz) 02/15/2023 51 kg (112 lb 8 oz) 02/10/2023 51.3 kg (113 lb 1.6 oz) General Appearance: Well appearing, alert, in no acute distress, well-hydrated, well nourished.. Skin: Skin color, texture, turgor normal, no suspicious rashes or lesions. Head: Normocephalic, no masses, lesions, tenderness or abnormalities. Eyes: Anicteric sclera. Pupils are equally round and reactive to light. Extraocular movements are intact. . Ears: External ears normal, canals clear. Nose/Sinuses: Nares normal, septum midline, mucosa normal, no drainage or sinus tenderness. Oropharynx: Lips, mucosa, and tongue normal, teeth and gums normal, oropharynx normal. Neck: Supple, no adenopathy; thyroid symmetric, normal size, no bruits. Lungs: Lungs clear to auscultation. No wheezing, rhonchi, rales.. Heart: RRR without murmur, gallop, or rubs. No ectopy. Abdomen: Normal abdominal exam, Abdomen soft, non-tender. Bowel sounds normal. No masses, organomegaly. Extremities: No deformities, edema, skin discoloration, clubbing or cyanosis. Good capillary refill. . Musculoskeletal: Muscular strength intact, No joint swelling, deformity, or tenderness. Peripheral Pulses: Normal. Neurologic: Gait normal. Reflexes normal and symmetric. Sensation to light touch and crainal nerves2-12 intact.. Health Maintenance List COVID-19 VACCINE(6 - Moderna risk series) due on 08/08/2022 INFLUENZA(1) due on 03/24/2023 LDL CHOLESTEROL due on 02/16/2024 DIABETES SCREEN due on 03/16/2026 DTAP,TDAP,TD(3 - Td or Tdap) due on 08/20/2031 BONE DENSITY Completed ADVANCE DIRECTIVE DISCUSSION Completed DEPRESSION ASSESSMENT Completed SHINGRIX VACCINE Completed PNEUMOCOCCAL: 65+ Completed HPV VACCINE Aged Out Data reviewed Component Latest Ref Rng & Units 02/15/2023 03/16/2023 WBC 3.70 - 11.00 k/uL 5.28 3.26 (L) RBC 3.90 - 5.20 m/uL 4.33 4.35 Hemoglobin 11.5 - 15.5 g/dL 12.9 12.8 Hematocrit 36.0 - 46.0 % 39.4 38.7 MCV 80.0 - 100.0 fL 91.0 89.0 MCH 26.0 - 34.0 pg 29.8 29.4 MCHC 30.5 - 36.0 g/dL 32.7 33.1 RDW-CV 11.5 - 15.0 % 13.2 14.0 Platelet Count 150 - 400 k/uL 149 (L) 95 (L) MPV 9.0 - 12.7 fL 10.0 10.3 Neut% % 60.1 78.5 Abs Neut (ANC) 1.45 - 7.50 k/uL 3.17 2.56 Lymph% % 28.0 12.3 Abs Lymph 1.00 - 4.00 k/uL 1.48 0.40 (L) Hamlin% % 10.0 8.3 Abs Hamlin <0.87 k/uL 0.53 0.27 Eosin% % 0.9 0.3 Abs Eosin <0.46 k/uL 0.05 <0.03 Baso% % 0.4 0.0 Abs Baso <0.11 k/uL <0.03 <0.03 Immature Gran % % 0.6 0.6 IMMATURE GRANS (ABS) <0.10 k/uL 0.03 <0.03 NRBC /100 WBC 0.0 0.0 Absolute nRBC <0.01 k/uL <0.01 <0.01 DTYPE Auto Auto Protein, Total 6.3 - 8.0 g/dL 7.9 6.8 Albumin 3.9 - 4.9 g/dL 4.4 3.9 Calcium 8.5 - 10.2 mg/dL 9.1 8.9 Bilirubin, Total 0.2 - 1.3 mg/dL 0.5 0.4 Alkaline Phosphatase 34 - 123 U/L 44 43 AST 13 - 35 U/L 25 31 ALT 7 - 38 U/L 25 28 Glucose 74 - 99 mg/dL 85 128 (H) BUN 7 - 21 mg/dL 16 20 Creatinine 0.58 - 0.96 mg/dL 0.76 0.82 Sodium 136 - 144 mmol/L 140 133 (L) Potassium 3.7 - 5.1 mmol/L 4.5 4.5 Chloride 97 - 105 mmol/L 103 99 CO2 22 - 30 mmol/L 28 25 Anion Gap 9 - 18 mmol/L 9 9 eGFR >=60 mL/min/1.73m 77 70 Total Cholesterol, Nonfasting <200 mg/dL 165 Triglycerides, Nonfasting <150 mg/dL 95 HDL Cholesterol, Nonfasting >39 mg/dL 45 LDL Cholesterol, Nonfasting <100 mg/dL 101 (H) Non HDL Cholesterol, Nonfasting <130 mg/dL 120 VLDL Cholesterol, Nonfasting <30 mg/dL 19 Total Chol/HDL Ratio, Nonfasting <5.10 mg/dL 3.67 LDL/HDL Ratio, Nonfasting <2.54 mg/dL 2.24 Hemoglobin A1C 4.3 - 5.6 % 5.9 (H) Estimated Average Glucose mg/dL 123 Vitamin B12 232 - 1,245 pg/mL 1,380 (H) TSH 0.270 - 4.200 mIU/L 1.680 Magnesium 1.7 - 2.3 mg/dL 2.2 Component Latest Ref Rng & Units 08/29/2022 Hemoglobin A1C 4.3 - 5.6 % 6.0 (H) Estimated Average Glucose mg/dL 126 A/P ASSESSMENT/PLAN: 1. Medicare annual wellness visit, subsequent - ICD9: V70.0, ICD10: Z00.00 (primary diagnosis) - Counseled on healthy diet and regular exercise - Calcium intake with supplements or by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 demonstrated a monoclonalparaprotein 1.19 mg/dL. She has no evidence of cytopenias, renal dysfunction, or bony disease outside of the clavicle at least on the basis of the imaging that has been accomplished at this point. Inorder to complete her work-up, we will arrange a bone marrow biopsy, a complete set of paraprotein labs, and a low-dose CT scan of the whole body. We will also order an MRI of the liver based on the findings of her contrast-enhanced CT of the abdomen. We did discuss the natural history and prognosis of multiple myeloma. After we complete her work-up, I anticipate beginning daratumumab, lenalidomide, and dexamethasone should she proved to have full-blown multiple myeloma. This is along the linesof the Agnes clinical study. Consent has been obtained for this regimen. Consult to radiation oncology will also be placed. Plan Summary: -Bone marrow biopsy completed 02/15/2023. 10-15% kappa pc, FISH cyto pending. -palliative RT to the left mid clavicle sim today, Dr Cameron. Start RT 03/02/23 -Low-dose whole-body CT scan completed 02/11/23 as part of staging. Incidental finding of subdural hematoma. No recent known trauma. Denies BEAR's. Today A&OX3, no focal deficits. Plan obtain non contrast CT and refer to neurosurgery for consult. -MRI of the liver based on hypodensities noticed incidentally on contrast- enhanced abdominal CT -Consent obtained for daratumumab, lenalidomide, dexamethasone. C1D1 today. -Consult to dentistry placed in anticipation of bisphosphonate use. Seen by local dentist, will require some dental work. Defer to after radiation. -Continue tramadol as needed for pain management I spent 30 minutes in the visit, with more than 50% of the total [id number] time of the visit in counseling / coordination of care. Alvin Balderas APRN.CNP CC: Dr. Alex Shields documented in this encounterMagr[facility] Hospital08-03-2023 History of Present illness Narrative* Katey Croft RN - 02/23/2023 10:00 AM EDT ONCOLOGY PATIENT EDUCATION NOTE TOPIC: Chemotherapy/Immunotherapy, Medications: Daratumumab/Lenalidomide/Dexamethasone READINESS TO LEARN: COGNITIVE ABILITY: Alert and oriented MOTIVATION TO LEARN: Eager FAMILY SUPPORT: High - Very involved in pt care INSTRUCTION PROVIDED TO: Patient and Spouse INSTRUCTION PROVIDED BY: Nurse Coordinator PATIENT LEARNS BEST BY: Individual Instruction Written Instruction - Hand-outs Verbal Instruction FACTORS AFFECTING LEARNING: None PHYSICAL LIMITATIONS AFFECTING LEARNING: None LEARNING RESPONSE DIAGNOSIS: Multiple myeloma not having achieved remission METHOD OF INSTRUCTION: Individual instruction Written instruction - handouts Verbal instruction PATIENT/FAMILY RESPONSE: Verbalizes understanding of: CHEMOTHERAPY-Regimen, toxicity and side effects INFECTION MANAGEMENT-Signs and symptoms of an infection and importance of contacting the physician MEDICAL REGIMEN-Importance of following prescribed medical regimen MEDICATION DOSE MISSED-Correct action to take if medication dose is missed MEDICATION PRESCRIBED-Accurate knowledge of prescribed medication prior to discharge MEDICATION ROUTE-Correct route for administration of the prescribed medication MEDICATION SIDE EFFECTS-Side effects associated with the medication that warrant a call to the physician SYMPTOM MANAGEMENT-Correct actions to take to manage symptoms associated with his/her disease/illness VTE prevention measures WORSENING CONDITION-Signs and symptoms of a worsening condition that warrant a call to the physician FOLLOW UP PLAN: Follow up phone call. Contact information given. SUPPLEMENTAL MATERIAL: Written material was provided at this visit with the following information: - Chemotherapy Immunotherapy education was provided by a pharmacist NO - Side effect management information was provided/discussed including but not limited to: anemia, appetite changes, fatigue, fluid retention, hypersensitivity reaction, infection, neuropathy, neutropenia, peripheral neuropathy, rash, risk for DVT, thrombocytopenia, venous thrombotic events YES - Provided important phone numbers and contacts during and after hours. YES - Provided information on symptoms that require immediate assistance. YES - Provided Chemotherapy Immunotherapy when to call handouts YES - Preventing infection. YES - Treatment schedule and confirmation of appointment times. YES - Available support groups. NA - The importance of contraception during the course of chemotherapy NA - Neutropenic fever protocol discussed with patient, which included the importance of reporting anyfever of 100.4F (38.0C) or greater to the healthcare team as noted on the provided wallet card and/or magnet. YES Patient was registered in the [facility] program. Discussed defects, safe handling of drug, no donation of blood, and side effects. She has no history of DVT and is currently taking 81 mg ASA. She will call office prior to starting. Patient is having radiation therapy and will have tooth extraction following completion. She will let the office know when proceed has been completed and clearance for bisphosphonates. Time Spent: 30 minutes REFERRAL (RECOMMENDATION): Social Work Katey Croft, RN documented in this encounterMagruder Hospital08-03-2023 Nurse Note* Fatou Guillory LPN - 02/23/2023 8:48 AM EDT Radiation Therapy - Patient Education Note PATIENT NAME: Kayley Dickinson PATIENT February 23, 2023 [facility] FACILITY/LOCATION: [place] READINESS TO LEARN Cognitive Ability: Alert and oriented Motivation to learn: Interested Family Support: High - Very involved in pt care Instruction provide to: Patient and family member Patient learns best by: Individual Instruction Written Instruction - Hand-outs Verbal Instruction Factors effecting learning: None Physical limitations effecting learning: None LEARNING RESPONSE Diagnosis: Pt simulated today for radiation therapy to the left clavicle. Education Topic/Teaching Points: Radiation therapy, Side effects, and OTV: Method of instruction: Individual instruction Written instruction - handouts Verbal instruction Patient /Family response: Patient and family verbalized understanding of radiation treatments, sideeffects, OTV, and transportation. Follow-up plan: Patient instructed to call with any further issues Supplemental material: Informational handouts on Fatigue and Skin changes. Referral (recommendation): None, Pt denied need for social work, van service, and trimmer operator three knife. Was approved? Yes completed today scored 5-distress. Signed by: Fatou Guillory LPN documented in this encounterMagruder Hospital08-03-2023 History of Present illness Narrative* Rickie Mueller MD - 02/23/2023 8:03 AM EDT Patient presented for pre-sim consent prior to radiation simulation and treatment planning. We discussed the natural history of the disease, as well as the risks, benefits, alternatives, side effects, complications, involved personnel, and plan. All questions were answered to the patient's satisfaction. Signed informed consent was obtained. Rickie Mueller MD Radiation Oncology, Fellow documented in this encounterMagruder Hospital08-01-2023 Miscellaneous Notes* Telephone Encounter - Meagan Mon Ma - 02/21/2023 9:55 AM EDT Last office visit: 12/29/22 F/u scheduled: 03/08/23 Meagan Mon Ma * Telephone Encounter - Pat Nieves - 02/21/2023 9:33 AM EDT Patient has been identified by name and date of : Yes, Provider GLORIA Spouse phones for refill(s): Requested Prescriptions Pending Prescriptions Disp Refills levothyroxine (SYNTHROID) 50 mcg tablet 90 tablet 1 Sig: Take 1 tablet by mouth once daily. Take on empty stomach. For Thyroid. Date of last office visit in primary care: 01/05/23 Last 2 Encounter Wt Readings: Date: Wt: 02/15/2023 51 kg (112 lb 8 oz) 02/10/2023 51.3 kg (113 lb 1.6 oz) Previous labs/tests for medication: Not applicable Please advise. Thank you. Pat Nieves documented in this encounterMagruder Hospital07-27-2023 Miscellaneous Notes* Telephone Encounter - Katey Croft RN - 02/16/2023 10:50 AM EDT Spoke with patient via telephone. She was able to get into her dentist who informed her she needs a dental extraction prior to starting bisphosphonates. Informed patient to prioritize radiation and treatment first prior to dental extraction. Informed her it is okay to have procedure done locally and to keep us updated. Will visit patient in treatment on 02/23. Katey Croft RN February 16, 2023 10:56 AM * Telephone Encounter - Jumana Garsia - 02/16/2023 10:33 AM EDT Kayley Dickinson is calling Jaime Beatty MD today regarding 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 (Return call needed) Patient has been identified by name and birthdate. Requesting response back: [phone] (home) [phone] (cell) Pt is calling stating she talked with Becky. She went to dentist and got head Xray. She needs toothremoval surgery and is wondering if she should have it done here. Please return call to advise. Jumana Garsia February 16, 2023 documented in this encounterMagruder Hospital07-26-2023 History of Present illness Narrative* Daniel Cameron MD - 02/15/2023 12:54 PM EDT Radiation Oncology - New Patient/Consult Note PATIENT NAME: Kayley Dickinson PATIENT REQUESTING PROVIDER: Dr. Beatty. DIAGNOSIS: Myeloma Cancer Staging No matching staging information was found for the patient. HPI: 87 year old female who presents with above diagnosis, for an opinion regarding the role of radiation therapy in the management of the patient's disease. Final recommendations will be communicated back to the requesting physician by way of the shared medical record, or letter to requesting physician via US mail. Patient developed left shoulder/clavicle pain. Placed on steroid at urgent care. Then placed on antibiotics. Imaging reviewed including CT from OSH. Biopsy demonstrated: FINAL DIAGNOSIS A. Lesion, left clavicular head, biopsy: - Plasma cell neoplasm (kappa). - See comment. Bone marrow biopsy performed today. ALLERGIES Allergen Reactions Sulfa (Sulfonamide * Swelling Adhesive Tape-Silic* Rash PAST MEDICAL HISTORY Diagnosis Date Advance directive discussed with patient 02/25/2022 Discussed 02/2022 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 rich plaque 03/31/2019 Current use of proton pump inhibitor 07/30/2019 Elevated fasting blood sugar 03/29/2019 GERD without esophagitis 03/29/2019 High cholesterol History of 2019 novel coronavirus disease (COVID-19) 09/07/202202/2022 History of squamous cell carcinoma of skin 03/31/2019 Right side of nose Hypothyroidism, acquired 03/29/[address] 02/25/2022 DPA: Micaela () Medicare annual wellness visit, subsequent 08/17/2020 Medical B eligibilty date 11/21/2002 Last done: 02/11/2020 Mixed hyperglyceridemia 03/29/2019 Osteopenia of spine 03/29/2019 Prior radiation therapy, collagen vascular disease, or inflammatory bowel disease: No status: Patient states there is no possibility she is at this time. Educated on risks of during treatment. PAST SURGICAL HISTORY Procedure Laterality Date CATARACT EXTRACTION HX Bilateral 2017 COLONOSCOPY 10/25/2021 repeat only if needed HYSTERECTOMY partial - age 40 MASTECTOMY, SIMPLE, COMPLETE Bilateral 1976 with implants for fibrocystic disease (?) NUCLEAR STRESS TEST (WT<440#) (UNION) 08/09/2013 old records: negative PAST SURGICAL HISTORY OF 1995 breast implants FAMILY HISTORY Problem Relation Age of Onset Heart Failure Mother Diabetes Sister Hyperlipidemia Sister Thyroid Sister Breast Cancer Maternal Grandmother Diabetes Daughter Hyperlipidemia Sister Alzheimer's Disease No Family History Colon Cancer No Family History Prostate Cancer No Family History Ovarian cancer No Family History Uterine Cancer No Family History Coronary Artery Disease No Family History Hypertension No Family History Kidney Disease No Family History Seizures No Family History Stroke No Family History Social History Tobacco Use Smoking status: Never Smokeless tobacco: Never Substance Use Topics Alcohol use: Not Currently Drug use: Not Currently PHYSICAL EXAM: VS: BP 145/68 Pulse 80 Resp 18 Wt 51 kg (112 lb 8 oz) SpO2 95% BMI 21.27 kg/m KPS: 90 General Appearance: Alert and oriented. No acute distress. HEENT: NCAT. Sclera anicteric. Neck: Normal ROM. Prominent medial left clavicle mass. Chest: No respiratory distress. Musculoskeletal: No edema. Neuro: Speech fluent. Skin: No rashes noted. Psych: Normal affect. RADIOLOGY/LABORATORY DATA: see HPI ASSESSMENT AND PLAN: I discussed role of RT.The logistics of radiation were discussed including acute, subacute, and chronic toxicities. The risks, benefits, alternatives, consent and personnel of radiation therapy were fully discussed with the patient. Patient wishes to proceed and will be scheduled for RT. Signed by: Daniel Cameron MD Medical Decision Making: Problems: High: Illness/injury w/ threat to life/body function Data: Unique test result(s) reviewed: 3+ Independent interpretation of test from other physician/QHCP Risk: Moderate: Moderate risk from testing/treatment Medical Decision Making Level: 5 - High cc: Hilton Pena [address] [place] [address] Jaime Beatty [address] [facility] [id number] documented in this encounterMagruder Hospital07-22-2023 NoteHNO ID: [id number] Author: Yudith Soto, RT(R) Service: Radiology Author Type: Technologist Type: Progress Notes Filed: 02/11/2023 11:16 AM Note Text: Radiology Service Progress Note PATIENT NAME: Kayley Dickinson DATE OF SERVICE: February 11, 2023 TIME: 11:16 AM PATIENT IDENTITY VERIFICATION COMPLETED USING TWO (2) IDENTIFIERS: Name and Date of confirmed by patient verbally. FALL SCREENING: Has the patient had 2 falls in the last year or 1 fall with injury or currently using an Ambulatory Assistive Device (Walker, Cane, Wheelchair, Crutches, etc.)? No PATIENT GENDER DATA: Female. status: : No status: NO. PATIENT RELEVANT IMPLANT DATA REVIEWED: Not Applicable RADIOLOGY DEPARTMENT: CT; Exam(s) Completed: WHOLE BODY SCAN (SKULL THRU THIGH) PERIPHERAL IV DATA: Not applicable SIGNED BY: RT Justine(R) February 11, 2023 11:16 AMM[facility]ide [facility]07-22-2023 History of Present illness Narrative* Yudith Soto RT(R) - 02/11/2023 11:00 AM EDT Radiology Service Progress Note PATIENT NAME: Kayley Dickinson DATE OF SERVICE: February 11, 2023 TIME: 11:16 AM PATIENT IDENTITY VERIFICATION COMPLETED USING TWO (2) IDENTIFIERS: Name and Date of confirmedby patient verbally. FALL SCREENING: Has the patient had 2 falls in the last year or 1 fall with injury or currently using an Ambulatory Assistive Device (Walker, Cane, Wheelchair, Crutches, etc.)? No PATIENT GENDER DATA: Female. status: : No status: NO. PATIENT RELEVANT IMPLANT DATA REVIEWED: Not Applicable RADIOLOGY DEPARTMENT: CT; Exam(s) Completed: WHOLE BODY SCAN (SKULL THRU THIGH) PERIPHERAL IV DATA: Not applicable SIGNED BY: RT Justine(R) February 11, 2023 11:16 AM documented in this encounterMagruder Hospital07-10-2023 NoteHNO ID: [id number] Author: Pat Jacobs RN Service: Radiology Author Type: Registered Nurse Type: Patient Education Filed: 01/30/2023 12:16 PM Note Text: Patient biopsy education placed in patient's chart.[facility]07-03-2023 Miscellaneous Notes* [facility] - RT Guerda(R) - 01/23/2023 1:00 PM EDT Radiology Service Progress Note DATE OF SERVICE: January 23, 2023 TIME: 1:13 PM PATIENT IDENTITY VERIFICATION COMPLETED USING TWO (2) STANDARD IDENTIFIERS: Name and Date of confirmed by patient verbally. FALL SCREENING: Has the patient had 2 falls in the last year or 1 fall with injury or currently using an Ambulatory Assistive Device (Walker, Cane, Wheelchair, Crutches, etc.)? No PATIENT GENDER DATA: Female. status: : No status: NO. PATIENT RELEVANT IMPLANT DATA REVIEWED: Not Applicable ALLERGIES: Reviewed and unchanged CONTRAST ALLERGY: NO. EXAM: CT -CONTRAST INDUCED NEPHROPATHY RISK FACTORS: Patient age > 60 years CREATININE: Creatinine Date Value Ref Range Status 01/17/2023 0.75 0.58 - 0.96 mg/dL Final 12/29/2022 0.74 0.58 - 0.96 mg/dL Final 02/11/2022 0.75 0.58 - 0.96 mg/dL Final Estimated Glomerular Filtration Rate Date Value Ref Range Status 01/17/2023 78 >=60 mL/min/1.73m Final Comment: Estimated Glomerular Filtration Rate (eGFR) is calculated using the 2020 CKD-EPI creatinine equation. This equation utilizes serum creatinine, sex, and age as parameters. The creatinine assay has traceable calibration to isotope dilution- mass spectrometry. Refer to KDIGO guidelines for clinical interpretation. In patients with unstable renal function, e.g. those with acute kidney injury, the eGFRmay not accurately reflect actual GFR. eGFR- Date Value Ref Range Status 02/04/2021 >60 Final P.O.C.T. RESULTS: POC done: Yes, See Lab Tab January 23, 2023 TREATMENT: N/A PERIPHERAL IV DATA: Ambulatory: A peripheral IV was started in the Right antecubital site with a Angio cath: 20 gauge. RADIOLOGY DEPARTMENT: CT; Exam(s) Completed: Chest Abdomen Pelvis SIGNATURE: RT Guerda(R) PATIENT NAME: Kayley Dickinson DATE: January 23, 2023 TIME: 1:13 PM documented in this encounterMagruder Hospital06-27-2023 History of Present illness Narrative* Katarzyna Quevedo PA-C - 01/17/2023 12:36 PM EDT Placed call to [facility] biopsy team to schedule Biopsy * Alex Anaya MD - 01/17/2023 10:36 AM EDT Orthopaedic Oncology New Patient Evaluation Chief Complaint: Left clavicle pain; bone lesion Referring Physician: Hilton Pena History of Present Illness: Kayley Dickinson is a 87 year old [id number] woman who presents for evaluation of the above chief complaint. She was originally seen in the urgent care on 12/26/2022 for medial clavicle swelling and pain. She was started on a medrol betty and discharged. At f/u on 12/27, she was stopped when cellulitis was expected. She was placed on duricef and tramadol for pain. She reports that today her pain is 5/10 for severity and is usually dull and achy, sometimes tender to the touch. Pain is exacerbated by movement. It radiates up her neck, along her trapezius, and down her lateral arm. Pressure alleviate pain, but tramadol, ice, and heat have been minimally successful. Mrs. Dickinson denies any inciting incident preceding formation of the lump. She also denies any changes in weight or having fevers. Review of Systems: Review of systems is positive for sleep affected by pain. Other complete ROS is questioned and negative. PAST MEDICAL HISTORY Diagnosis Date Advance directive discussed with patient 02/25/2022 Discussed 02/2022 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 rich plaque 03/31/2019 Current use of proton pump inhibitor 07/30/2019 Elevated fasting blood sugar 03/29/2019 GERD without esophagitis 03/29/2019 High cholesterol History of 2019 novel coronavirus disease (COVID-19) 09/07/202202/2022 History of squamous cell carcinoma of skin 03/31/2019 Right side of nose Hypothyroidism, acquired 03/29/[address] 02/25/2022 DPA: Micaela () Medicare annual wellness visit, subsequent 08/17/2020 Medical B eligibilty date 11/21/2002 Last done: 02/11/2020 Mixed hyperglyceridemia 03/29/2019 Osteopenia of spine 03/29/2019 PAST SURGICAL HISTORY Procedure Laterality Date CATARACT EXTRACTION HX Bilateral 2018 COLONOSCOPY 10/25/2021 repeat only if needed HYSTERECTOMY partial - age 40 MASTECTOMY, SIMPLE, COMPLETE Bilateral 1977 with implants for fibrocystic disease (?) NUCLEAR STRESS TEST (WT<440#) (UNION) 08/09/2013 old records: negative PAST SURGICAL HISTORY OF 1995 breast implants ALLERGIES Allergen Reactions Sulfa (Sulfonamide * Swelling Adhesive Tape-Silic* Rash Current Outpatient Medications on File Prior to Visit Medication Sig traMADol (ULTRAM) 50 mg tablet Take 1 tablet by mouth every 8 hours as needed for pain. cefADROxil (DURICEF) 500 mg capsule Take 1 capsule by mouth twice daily. pravastatin (PRAVACHOL) 80 mg tablet Take 1 tablet by mouth once daily. omeprazole (PRILOSEC) 40 mg capsule Take 1 capsule by mouth daily before breakfast. 1/2 hr before meal. levothyroxine (SYNTHROID) 50 mcg tablet Take 1 tablet by mouth once daily. Take on empty stomach. For Thyroid. cyanocobalamin (VITAMIN B-12) 500 mcg tablet Take 1 tablet by mouth once daily. ketoconazole (NIZORAL) 2 % cream Apply to affected area once daily. FERROUS SULFATE ORAL Take 1 tablet by mouth. aspirin, enteric coated (ASPIRIN, ENTERIC COATED) 81 mg EC tablet Take 81 mg by mouth. omega-3 acid ethyl esters (LOVAZA) 1 gram capsule Take 1 g by mouth. calcium carbonate-vitamin D3 (CALTRATE WITH VITAMIN D3) 600 mg(1,500mg) -800 unit tab Take 1 tabletby mouth twice daily. No current facility-administered medications on file prior to visit. FAMILY HISTORY Problem Relation Age of Onset Heart Failure Mother Diabetes Sister Hyperlipidemia Sister Thyroid Sister Breast Cancer Maternal Grandmother Diabetes Daughter Hyperlipidemia Sister Alzheimer's Disease No Family History Colon Cancer No Family History Prostate Cancer No Family History Ovarian cancer No Family History Uterine Cancer No Family History Coronary Artery Disease No Family History Hypertension No Family History Kidney Disease No Family History Seizures No Family History Stroke No Family History Social History Tobacco Use Smoking status: Never Smokeless tobacco: Never Substance Use Topics Alcohol use: Not Currently Drug use: Not Currently Physical Examination: There were no vitals taken for this visit. General: alert, oriented, no acute distress Skin: no visible skin lesions, skin around clavicle matching color of surrounding skin HEENT: normocephalic, extraocular movements intact, mucous membranes moist/intact Neck: minimal cervical lymphadenopathy Cardiovascular, pulmonary, and abdominal exams were deferred. LUE: Approximately 3cm x 2cm palpable prominence surrounding medial left clavicle Active ROM: - Limited abduction 70 degrees, forward flexion to 100 degrees, internal rotation to T10. 5/5 deltoid, bicep, tricep, wrist extension, telephone interviewer, FIOR. SILT throughout axillary, median, radial and ulnar distributions. Results Reviewed: Laboratory evaluation: Uric Acid 4.1 on 12/29/2022 Radiographic evaluation (I personally reviewed the below images): - MRI 12/29/2022: demonstrating mild expansion and irregular cortical bone in medial left clavicle. - Bone scintography 01/05/2023: increased uptake in left sternoclavicular joint, and medial clavicle. - CT left clavicle/shoulder 01/11/2023: permeative lytic lesion with pathological fracture of left medial clavicle. Impression: (M84.412A) Pathological fracture of left clavicle, initial encounter (primary encounter diagnosis) (R93.89) Abnormal x-ray (M89.8X1) Pain of left clavicle (R93.89) Abnormal CT scan (R94.8) Abnormal radionuclide bone scan Permeative lytic lesion of medial clavicle with pathological fracture. Differential diagnosis favors metastatic bone carcinoma from unknown primary source, myeloma, lymphoma, osteoporotic fracture and less likely sarcoma. Plan: CBC w/ differential, CMP, CRP, ESR, TSH, free T3/T4, SPEP/UPEP CT scan of CAP; whole body bone scan completed IR-guided biopsy of the lytic lesion arising from the left medial clavicle. Follow-up pending completion of repeated CT and biopsy. Patient prefers to complete this at [facility]. Marlys Costa, M3 [facility] ATTENDING PHYSICIAN NOTE I have personally interviewed and examined the patient. I agree with the findings in the above note. I have corroborated the above history and review of systems obtained by the medical student, and performed and documented my own exam, imaging review, impression and plan. These recommendations are being sent back to Hilton Pena via [email or web address] [facility] Nurse Practitioner or Chart CC for [facility] Providers. lAex Anaya MD Steam Hammer Operator, Orthopaedic Surgery Division of Musculoskeletal Oncology documented in this encounterMagruder Hospital06-19-2023 Miscellaneous Notes* Telephone Encounter - Hilda Ching MA - 01/09/2023 12:51 PM EDT Patient notified. Did mail patient info regarding doctor. Patient indicated that she did get the CD's to take with her. Hilda Ching MA * Telephone Encounter - Hilton Pena MD - 01/09/2023 12:29 PM EDT Let patient know I do not nothing about this provider but I also no not know and specific ortho oncologists * Telephone Encounter - Hilda Ching MA - 01/06/2023 1:04 PM EDT Spoke with patient and gave appointment time and and instructions on getting disk from [facility] for testing. Patient voiced understanding. Only question patient had was that if we knew anything about this doctor?? I told patient I would send to Dr. Pena to see if he had any input? Hilda Ching MA * Telephone Encounter - Kalee Barnhart LPN - 01/06/2023 11:16 AM EDT Patient returned call and went over results, notes from Dr Pena and gave the phone to her husbandfor me to go over with him. is asking what Oncologist is Dr Pena recommending for her? * Telephone Encounter - Hilda Ching MA - 01/06/2023 11:10 AM EDT Left message for patient to contact office. Hilda Ching MA * Telephone Encounter - Hilton Pena MD - 01/06/2023 9:54 AM EDT Let patient know the nuclear scan does have a lot of up take in the area of concern. However this test is not able to determine if a benign or more serious issue. We need to have you see ortho to geta biopsy of this area. I'm placing a order to see a orthopedic oncologist just incase this is who we mary to have you see and you would all be set up then just doing a general orthopedist and then needing to see oncologist if needed. documented in this encounterMagruder Hospital06-15-2023 History of Present illness Narrative* Hilton Pena MD - 01/05/2023 10:21 AM EDT Appt cancelled. Awaiting nuclear bone scan. documented in this encounterMagruder Hospital06-09-2023 Miscellaneous Notes* Telephone Encounter - Hilda Ching MA - 12/30/2022 2:43 PM EDT Spoke with patient and gave results and instructions. Faxed order to [facility]. Hilda Ching MA * Telephone Encounter - Hilda Ching MA - 12/30/2022 1:38 PM EDT Left message on voicemail this morning; tried to call and phone indicates that phone is notexcepting phone calls. Hilda Ching MA * Telephone Encounter - Hilda Ching MA - 12/30/2022 9:41 AM EDT Please see other phone encounter. Waiting for provider to review CT. Per note gout was negative Hilda Ching MA ' * Telephone Encounter - Hilton Pena MD - 12/29/2022 8:00 PM EDT Let patient know I received his message and that the biggest side affects from taking the two antibiotics would be nausea, vomiting or diarrhea. I agree with the advice given and that she should contthe cefadroxil 500 mg twice a day and stop the Cephalexin. Also let him know I'm surprised he was given both antibiotics by the pharmacy: 1) because they are in the same class and should of been picked up by them and 2) the cephalexin order was cancelled which should of sent a message to the pharmacy canceling the script and replacing it with the cefadroxil. * Telephone Encounter - Yolanda Varghese RN - 12/29/2022 6:49 PM EDT Patient's calling to say his has been taking both Cephalexin 500 mg and Cefadroxil 500mg since antibiotic prescribed on 12/27/22. She has only taken seven capsules of Cephalexin. realized today that his was only to be taking Cefadroxil. She saw PCP today for f/u cellulitis. She has no symptoms. He asked to speak to PCP. Advised patient of triage protocol guidelines. Transferred call to Poison Control for patient to receive information. Called patient back to make sure he received information from Poison Control. States he was told tomonitor patient for abdominal pain/diarrhea. Encouraged to increase fluid intake tonight. Disposition: Home Care. Patient's says he would still like to hear from PCP office tomorrow. Yolanda Varghese RN Reason for Disposition [1] DOUBLE DOSE (an extra dose or lesser amount) of antibiotic drug AND [2] NO symptoms Answer Assessment - Initial Assessment Questions 1. NAME of MEDICATION: Cephalexin 500 mg four times daily and Cefadroxil 500 mg twice daily 2. QUESTION: Double dose of medication. Patient was initially prescribed Cephalexin but it was changed to Cefadroxil Both scripts went to pharmacy and were filled. Patient's said states they were aware that PCP preferred one antibiotic over the other. FAMILY CENTERED SPECIALIST had discussed with PCP per patient's 3. PRESCRIBING HCP: Andrew Stanton NP 4. SYMPTOMS: No symptoms. Patient seen in OV today by PCP for f/u cellulitis 5. SEVERITY: No new symptoms 6. : NO Protocols used: Medication Question [id number] documented in this encounterMagruder Hospital06-06-2023 Miscellaneous Notes* Telephone Encounter - Heather Julian Cma - 12/27/2022 4:11 PM EDT Patient notified and verbalized understanding Heather Julian Cma * Telephone Encounter - Andrew Stanton APRN.CNP - 12/27/2022 2:47 PM EDT Please let patient know her labs are normal. documented in this encounterMagruder Hospital06-06-2023 Instructions* Patient Instructions* Andrew Stanton APRN.CNP - 12/27/2022 10:55 AM EDT Complete labs Start [facility] [place] Follow up with Dr. Pena as scheduled. documented in this encounterMagruder Hospital06-06-2023 History of Present illness Narrative* Andrew Stanton APRN.CNP - 12/27/2022 10:48 AM EDT Chief Complaint Patient presents with: Follow Up HPI Kayley Dickinson is a 87 year old female who presents here today for Above Complaints.. Patient presents for EC follow up. Patient seen yesterday for clavicle pain,xray negative for bony abnormality or fracture. Patient was started on prednisone. Today patient woke up and reports area is red, warm, tender to touch. Past medical history, appointments, medications, allergies reviewed. Previous Medical History PAST MEDICAL HISTORY Diagnosis Date Advance directive discussed with patient 02/25/2022 Discussed 02/2022 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 rich plaque 03/31/2019 Current use of proton pump inhibitor 07/30/2019 Elevated fasting blood sugar 03/29/2019 GERD without esophagitis 03/29/2019 High cholesterol History of 2019 novel coronavirus disease (COVID-19) 09/07/202202/2022 History of squamous cell carcinoma of skin 03/31/2019 Right side of nose Hypothyroidism, acquired 03/29/[address] 02/25/2022 DPA: Micaela () Medicare annual wellness visit, subsequent 08/17/2020 Medical B eligibilty date 11/21/2002 Last done: 02/11/2020 Mixed hyperglyceridemia 03/29/2019 Osteopenia of spine 03/29/2019 Previous Surgical History PAST SURGICAL HISTORY Procedure Laterality Date CATARACT EXTRACTION HX Bilateral 2017 COLONOSCOPY 10/25/2021 repeat only if needed HYSTERECTOMY partial - age 40 MASTECTOMY, SIMPLE, COMPLETE Bilateral 1977 with implants for fibrocystic disease (?) NUCLEAR STRESS TEST (WT<440#) (UNION) 08/09/2013 old records: negative PAST SURGICAL HISTORY OF 1996 breast implants Family History FAMILY HISTORY Problem Relation Age of Onset Heart Failure Mother Diabetes Sister Hyperlipidemia Sister Thyroid Sister Breast Cancer Maternal Grandmother Diabetes Daughter Hyperlipidemia Sister Alzheimer's Disease No Family History Colon Cancer No Family History Prostate Cancer No Family History Ovarian cancer No Family History Uterine Cancer No Family History Coronary Artery Disease No Family History Hypertension No Family History Kidney Disease No Family History Seizures No Family History Stroke No Family History Patient Allergies ALLERGIES Allergen Reactions Sulfa (Sulfonamide * Swelling Adhesive Tape-Silic* Rash Current Medications Current Outpatient Medications on File Prior to Visit Medication Sig methylPREDNISolone (MEDROL, BETTY,) 4 mg Dose-Pack Follow dosing instructions, take with food. pravastatin (PRAVACHOL) 80 mg tablet Take 1 tablet by mouth once daily. omeprazole (PRILOSEC) 40 mg capsule Take 1 capsule by mouth daily before breakfast. 1/2 hr before meal. levothyroxine (SYNTHROID) 50 mcg tablet Take 1 tablet by mouth once daily. Take on empty stomach. For Thyroid. cyanocobalamin (VITAMIN B-12) 500 mcg tablet Take 1 tablet by mouth once daily. ketoconazole (NIZORAL) 2 % cream Apply to affected area once daily. FERROUS SULFATE ORAL Take 1 tablet by mouth. aspirin, enteric coated (ASPIRIN, ENTERIC COATED) 81 mg EC tablet Take 81 mg by mouth. omega-3 acid ethyl esters (LOVAZA) 1 gram capsule Take 1 g by mouth. calcium carbonate-vitamin D3 (CALTRATE WITH VITAMIN D3) 600 mg(1,500mg) -800 unit tab Take 1 tabletby mouth twice daily. No current facility-administered medications on file prior to visit. Social History Social History Tobacco Use Smoking status: Never Smokeless tobacco: Never Substance Use Topics Alcohol use: Not Currently Drug use: Not Currently Review of Symptoms REVIEW OF SYSTEMS SEE HPI EXAM: BP 136/84 Pulse 76 Wt 50.8 kg (112 lb) SpO2 95% BMI 21.34 kg/m General Appearance: Well appearing, alert, in no acute distress, well-hydrated, well nourished.. Neck: Positive findings: Red, swollen, tender area 2 inch x1.5 inch directly over left clavicle. Health Maintenance List DTAP,TDAP,TD(2 - Td or Tdap) due on 02/25/2023 LDL CHOLESTEROL due on 02/11/2023 DIABETES SCREEN due on 08/29/2025 BONE DENSITY Completed INFLUENZA Completed ADVANCE DIRECTIVE DISCUSSION Completed DEPRESSION ASSESSMENT Completed SHINGRIX VACCINE Completed COVID-19 VACCINE Completed PNEUMOCOCCAL: 65+ Completed ASSESSMENT/PLAN: 1. Cellulitis of skin - ICD9: 682.9, ICD10: L03.90 - Begin treatment with Cefadroxil (Duricef) - Check labs CBC with Diff - No lymphangetic streaking, this was defined for patient to watch for and to seek medical care immediately if appears - Area of cellulitis defined with pen, seek further attention if this area continues to enlarge - CBC + DIFF - CEFADROXIL 500 MG CAPSULE Andrew Stanton APRN.[employer] TUBE BENDER documented in this encounterMagruder Hospital06-06-2023 Miscellaneous Notes* Telephone Encounter - Jody Taylor RN - 12/27/2022 9:37 AM EDT Pt scheduled with Andrew Stanton Head Inspector at 1100 am. * Telephone Encounter - Yudith Del Valle - 12/27/2022 9:14 AM EDT Patient given results and verbalized understanding of instructions given. Yudith Del Valle * Telephone Encounter - Nico Holloway APRN.CNP - 12/27/2022 9:07 AM EDT Patient needs to be seen * Telephone Encounter - Jody Taylor RN - 12/27/2022 8:51 AM EDT Pts called in and reports Pt had seen provider for clavicle pain on 12/26/22. Pt was given Medrol betty for pain, she denies pain now, but states she has a rash. Her states she has a 4 inx 5 in red spot on her chest. He states he does not remember what the provider told them to do for redness. I read him Pt instructions: Try steroids Schedule follow up to recheck with pcp Urgent follow up for worsening symptoms. I told him she would need to be seen for worsening symptoms. He states he just needs to talk with the provider and he can tell them what to do. Pt denies applying any creams, heat, or ice to the area. Please call and advise. documented in this encounterMagruder Hospital06-05-2023 Instructions* Patient Instructions* Nico Holloway APRN.CNP - 12/26/2022 3:28 PM EDT ASSESSMENT/PLAN: 1. Clavicle pain - ICD9: 733.90, ICD10: M89.8X1 Xray negative Try steroids Schedule follow up to recheck with pcp Urgent follow up for worsening symptoms. - XR CLAVICLE 2V LEFT documented in this encounterMagruder Hospital06-05-2023 History of Present illness Narrative* Meek Villalobos, RT(R) - 12/26/2022 1:50 PM EDT Radiology Service Progress Note PATIENT NAME: Kayley A Kotulock DATE OF SERVICE: December 26, 2022 TIME: 2:09 PM PATIENT IDENTITY VERIFICATION COMPLETED USING TWO (2) IDENTIFIERS: Name and Date of confirmedby patient verbally. FALL SCREENING: Has the patient had 2 falls in the last year or 1 fall with injury or currently using an Ambulatory Assistive Device (Walker, Cane, Wheelchair, Crutches, etc.)? No PATIENT GENDER DATA: Female. status: : No status: NO. PATIENT RELEVANT IMPLANT DATA REVIEWED: Not Applicable RADIOLOGY DEPARTMENT: General X-ray: Exam(s) Completed: Upper Extremity X- Ray(s): Clavicle, left PERIPHERAL IV DATA: Not applicable SIGNED BY: RT Jaida(R) December 26, 2022 2:09 PM documented in this encounterMagruder Hospital06-05-2023 History of Present illness Narrative* Nico Holloway APRN.[employer] TUBE BENDER - 12/26/2022 1:25 PM EDT Images from the original note were not included. Subjective HPI HPI Kayley Dickinson is a 87 year old female who presents today for CC of left shoulder pain, neck pain, side pain. This started 2 days ago. Has tried otc medication for relief. Symptoms are worsened by rom of left shoulder. Denies injury. Denies numbness/tingling lf left arm. Denies cp/sob with and without activity. .Patient presents with: Pain (Shoulder Pain): L shoulder pain radiating to neck x2 days PAST MEDICAL HISTORY Diagnosis Date Advance directive discussed with patient 02/25/2022 Discussed 02/2022 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 rich plaque 03/31/2019 Current use of proton pump inhibitor 07/30/2019 Elevated fasting blood sugar 03/29/2019 GERD without esophagitis 03/29/2019 High cholesterol History of 2019 novel coronavirus disease (COVID-19) 09/07/202202/2022 History of squamous cell carcinoma of skin 03/31/2019 Right side of nose Hypothyroidism, acquired 03/29/[address] 02/25/2022 DPA: Micaela () Medicare annual wellness visit, subsequent 08/17/2020 Medical B eligibilty date 11/21/2002 Last done: 02/11/2020 Mixed hyperglyceridemia 03/29/2019 Osteopenia of spine 03/29/2019 PAST SURGICAL HISTORY Procedure Laterality Date CATARACT EXTRACTION HX Bilateral 2017 COLONOSCOPY 10/25/2021 repeat only if needed HYSTERECTOMY partial - age 40 MASTECTOMY, SIMPLE, COMPLETE Bilateral 1976 with implants for fibrocystic disease (?) NUCLEAR STRESS TEST (WT<440#) (UNION) 08/09/2013 old records: negative PAST SURGICAL HISTORY OF 1995 breast implants ALLERGIES Sulfa (Sulfonamide Antibiotics) and Adhesive Tape-Silicones MEDICATIONS pravastatin (PRAVACHOL) 80 mg tablet Take 1 tablet by mouth once daily. omeprazole (PRILOSEC) 40 mg capsule Take 1 capsule by mouth daily before breakfast. 1/2 hr before meal. levothyroxine (SYNTHROID) 50 mcg tablet Take 1 tablet by mouth once daily. Take on empty stomach. For Thyroid. cyanocobalamin (VITAMIN B-12) 500 mcg tablet Take 1 tablet by mouth once daily. ketoconazole (NIZORAL) 2 % cream Apply to affected area once daily. FERROUS SULFATE ORAL Take 1 tablet by mouth. aspirin, enteric coated (ASPIRIN, ENTERIC COATED) 81 mg EC tablet Take 81 mg by mouth. omega-3 acid ethyl esters (LOVAZA) 1 gram capsule Take 1 g by mouth. calcium carbonate-vitamin D3 (CALTRATE WITH VITAMIN D3) 600 mg(1,500mg) -800 unit tab Take 1 tabletby mouth twice daily. FAMILY HISTORY Problem Relation Age of Onset Heart Failure Mother Diabetes Sister Hyperlipidemia Sister Thyroid Sister Breast Cancer Maternal Grandmother Diabetes Daughter Hyperlipidemia Sister Alzheimer's Disease No Family History Colon Cancer No Family History Prostate Cancer No Family History Ovarian cancer No Family History Uterine Cancer No Family History Coronary Artery Disease No Family History Hypertension No Family History Kidney Disease No Family History Seizures No Family History Stroke No Family History Social History Tobacco Use Smoking status: Never Smokeless tobacco: Never Substance Use Topics Alcohol use: Not Currently Drug use: Not Currently Review of Systems Skin: Negative for itching and rash. Objective Blood pressure 146/86, pulse 74, temperature 36.9 C (98.5 F), resp. rate 18, weight 51.8 kg (114 lb3.2 oz), SpO2 94 %. Physical Exam Constitutional: General: She is not in acute distress. Appearance: She is not toxic-appearing or diaphoretic. HENT: Head: Normocephalic and atraumatic. Cardiovascular: Rate and Rhythm: Normal rate and regular rhythm. Heart sounds: Normal heart sounds, S1 normal and S2 normal. Pulmonary: Effort: Pulmonary effort is normal. Breath sounds: Normal breath sounds. Musculoskeletal: Arms: Neurological: Mental Status: She is alert and oriented to person, place, and time. Gait: Gait is intact. ASSESSMENT/PLAN: 1. Clavicle pain - ICD9: 733.90, ICD10: M89.8X1 Xray negative Try steroids Schedule f/u to recheck with pcp Urgent f/u for worsening symptoms. - XR CLAVICLE 2V LEFT IMPRESSION: No acute osseous abnormality Dictated by : MD Nico AKHTAR APRN.[employer] TUBE BENDER documented in this encounterMagruder Hospital02-15-2023 Instructions* Patient Instructions* Hilton Pena MD - 09/07/2022 1:19 PM EST Please get labs and urine test done on or after 02/24/2023 prior to your next visit. documented in this encounterMagruder Hospital02-15-2023 History of Present illness Narrative* Hilton Pena MD - 09/07/2022 12:54 PM EST Chief Complaint Patient presents with: F/U 6 months HPI Kayley Dickinson is a 86 year old female who presents here today for 6 month follow up. Patient with hx of hyperlipidemia, hypothyroidism, GERD, elevated blood sugar, CAD as well as thosereviewed and addressed below. Patient has been doing well. Did have COVID back in February 2022. She has had no residual issues andhas since gotten her Booster. Past medical history, appointments, medications, allergies reviewed. Previous Medical History PAST MEDICAL HISTORY Diagnosis Date Advance directive discussed with patient 02/25/2022 Discussed 02/2022 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 rich plaque 03/31/2019 Current use of proton pump inhibitor 07/30/2019 Elevated fasting blood sugar 03/29/2019 GERD without esophagitis 03/29/2019 High cholesterol History of squamous cell carcinoma of skin 03/31/2019 Right side of nose Hypothyroidism, acquired 03/29/[address] 02/25/2022 DPA: Micaela () Medicare annual wellness visit, subsequent 08/17/2020 Medical B eligibilty date 11/21/2002 Last done: 02/11/2020 Mixed hyperglyceridemia 03/29/2019 Osteopenia of spine 03/29/2019 Previous Surgical History PAST SURGICAL HISTORY Procedure Laterality Date CATARACT EXTRACTION HX Bilateral 2017 COLONOSCOPY 10/25/2021 repeat only if needed HYSTERECTOMY partial - age 40 MASTECTOMY, SIMPLE, COMPLETE Bilateral 1976 with implants for fibrocystic disease (?) NUCLEAR STRESS TEST (WT<440#) (UNION) 08/09/2013 old records: negative PAST SURGICAL HISTORY OF 1995 breast implants Family History FAMILY HISTORY Problem Relation Age of Onset Heart Failure Mother Diabetes Sister Hyperlipidemia Sister Thyroid Sister Breast Cancer Maternal Grandmother Diabetes Daughter Hyperlipidemia Sister Alzheimer's Disease No Family History Colon Cancer No Family History Prostate Cancer No Family History Ovarian cancer No Family History Uterine Cancer No Family History Coronary Artery Disease No Family History Hypertension No Family History Kidney Disease No Family History Seizures No Family History Stroke No Family History Patient Allergies ALLERGIES Allergen Reactions Sulfa (Sulfonamide * Swelling Adhesive Tape-Silic* Rash Current Medications Current Outpatient Medications on File Prior to Visit Medication Sig levothyroxine (SYNTHROID) 50 mcg tablet Take 1 tablet by mouth once daily. Take on empty stomach. For Thyroid. pravastatin (PRAVACHOL) 80 mg tablet Take 1 tablet by mouth once daily. omeprazole (PRILOSEC) 40 mg capsule Take 1 capsule by mouth daily before breakfast. 1/2 hr before meal. cyanocobalamin (VITAMIN B-12) 500 mcg tablet Take 1 tablet by mouth once daily. ketoconazole (NIZORAL) 2 % cream Apply to affected area once daily. FERROUS SULFATE ORAL Take 1 tablet by mouth. aspirin, enteric coated (ASPIRIN, ENTERIC COATED) 81 mg EC tablet Take 81 mg by mouth. omega-3 acid ethyl esters (LOVAZA) 1 gram capsule Take 1 g by mouth. calcium carbonate-vitamin D3 (CALTRATE WITH VITAMIN D3) 600 mg(1,500mg) -800 unit tab Take 1 tabletby mouth twice daily. No current facility-administered medications on file prior to visit. Social History Social History Tobacco Use Smoking status: Never Smokeless tobacco: Never Substance Use Topics Alcohol use: Not Currently Drug use: Not Currently Review of Symptoms REVIEW OF SYSTEMS GENERAL: No weight loss, malaise or fevers NECK: Negative for lumps, goiter, pain and significant neck swelling RESPIRATORY: Negative for cough, hemoptysis, wheezing, COPD, dyspnea or shortness of breath CARDIOVASCULAR: Negative for chest pain, leg swelling, hypertension, CHF or palpitations GI: No nausea, vomiting, or diarrhea and No heartburn or reflux symptoms ENDOCRINE: Negative for cold or heat intolerance, polyuria, polydipsia and goiter NEURO: No history of headaches, syncope, paralysis, seizures or tremors EXAM: BP 124/74 (BP Site: Left Arm, BP Position: Sitting, BP Cuff Size: Regular Adult) Pulse 76 Resp 16 Wt 51.7 kg (114 lb) BMI 21.72 kg/m Last 3 Encounter Wt Readings: Date: Wt: 09/07/2022 51.7 kg (114 lb) 03/24/2022 50.9 kg (112 lb 3.2 oz) 03/17/2022 51.6 kg (113 lb 12.8 oz) General Appearance: Well appearing, alert, in no acute distress, well-hydrated, well nourished.. Neck: Supple, no adenopathy; thyroid symmetric, normal size, no bruits. Lungs: Lungs clear to auscultation. No wheezing, rhonchi, rales.. Heart: RRR without murmur, gallop, or rubs. No ectopy. Abdomen: Normal abdominal exam, Abdomen soft, non-tender. Bowel sounds normal. No masses, organomegaly. Extremities: No deformities, edema. Titus support socks. Peripheral Pulses: Normal. Neurologic: Gait normal. . Sensation grossly intact.. Health Maintenance List INFLUENZA(1) due on 03/24/2022 ADVANCE DIRECTIVE DISCUSSION due on 07/24/2022 DEPRESSION ASSESSMENT Never done DTAP,TDAP,TD(2 - Td or Tdap) due on 02/25/2023 LDL CHOLESTEROL due on 02/11/2023 DIABETES SCREEN due on 08/29/2025 BONE DENSITY Completed SHINGRIX VACCINE Completed COVID-19 VACCINE Completed PNEUMOCOCCAL: 65+ Completed Data reviewed Component Latest Ref Rng & Units 02/11/2022 08/29/2022 WBC 3.70 - 11.00 k/uL 5.96 5.18 RBC 3.90 - 5.20 m/uL 4.38 4.55 Hemoglobin 11.5 - 15.5 g/dL 13.2 13.6 Hematocrit 36.0 - 46.0 % 41.6 42.9 MCV 80.0 - 100.0 fL 95.0 94.3 MCH 26.0 - 34.0 pg 30.1 29.9 MCHC 30.5 - 36.0 g/dL 31.7 31.7 RDW-CV 11.5 - 15.0 % 13.2 13.2 Platelet Count 150 - 400 k/uL 142 (L) 160 MPV 9.0 - 12.7 fL 12.0 11.2 Neut% % 66.8 57.1 Abs Neut (ANC) 1.45 - 7.50 k/uL 3.98 2.96 Lymph% % 20.6 29.2 Abs Lymph 1.00 - 4.00 k/uL 1.23 1.51 Hamlin% % 8.9 10.0 Abs Hamlin <0.87 k/uL 0.53 0.52 Eosin% % 2.7 2.7 Abs Eosin <0.46 k/uL 0.16 0.14 Baso% % 0.5 0.6 Abs Baso <0.11 k/uL 0.03 0.03 Immature Gran % % 0.5 0.4 IMMATURE GRANS (ABS) <0.10 k/uL 0.03 <0.03 NRBC /100 WBC 0.0 0.0 Absolute nRBC <0.01 k/uL <0.01 <0.01 DTYPE Auto Auto Protein, Total 6.3 - 8.0 g/dL 6.8 Albumin 3.9 - 4.9 g/dL 4.4 Calcium 8.5 - 10.2 mg/dL 9.5 Bilirubin, Total 0.2 - 1.3 mg/dL 0.3 Alkaline Phosphatase 34 - 123 U/L 43 AST 13 - 35 U/L 23 ALT 7 - 38 U/L 23 Glucose 74 - 99 mg/dL 95 BUN 7 - 21 mg/dL 18 Creatinine 0.58 - 0.96 mg/dL 0.75 Sodium 136 - 144 mmol/L 139 Potassium 3.7 - 5.1 mmol/L 4.3 Chloride 97 - 105 mmol/L 103 CO2 22 - 30 mmol/L 28 Anion Gap 9 - 18 mmol/L 8 (L) eGFR >=60 mL/min/1.73m 79 Total Cholesterol, Nonfasting <200 mg/dL 142 Triglycerides, Nonfasting <150 mg/dL 71 HDL Cholesterol, Nonfasting >39 mg/dL 41 LDL Cholesterol, Nonfasting <100 mg/dL 87 Non HDL Cholesterol, Nonfasting <130 mg/dL 101 VLDL Cholesterol, Nonfasting <30 mg/dL 14 Total Chol/HDL Ratio, Nonfasting <5.10 mg/dL 3.46 LDL/HDL Ratio, Nonfasting <2.54 mg/dL 2.12 Hemoglobin A1C 4.3 - 5.6 % 6.0 (H) 6.0 (H) Estimated Average Glucose mg/dL 126 126 Vitamin B12 232 - 1,245 pg/mL 1,398 (H) 893 TSH 0.270 - 4.200 mIU/L 2.180 1.730 A/P ASSESSMENT/PLAN: 1. Mixed hyperglyceridemia - ICD9: 272.3, ICD10: E78.3 (primary diagnosis) - good control - Encouraged following a low fat, low cholesterol diet. - Discussed the benefits of regular aerobic exercise and weight loss. - Encouraged following a low carbohydrate, healthy oil intake diet. - Continue current therapy. 2. Hypothyroidism, acquired - ICD9: 244.9, ICD10: E03.9 - Instructed patient on importance of taking on an empty stomach either first thing in the morning or at bedtime. - continue current dose of Synthroid 3. Elevated fasting blood sugar - ICD9: 790.21, ICD10: R73.01 - stable with life style control 4. GERD without esophagitis - ICD9: 530.81, ICD10: K21.9 - Continue treatment with Prilosec 40 mg QD - OMEPRAZOLE 40 MG CAPSULE,DELAYED RELEASE 5. 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 rich plaque - ICD9: 414.00, 414.3, ICD10: I25.10, I25.83 - clinically stable no changes and con f/u with cardio 6. Thrombocytopenia (HCC) - ICD9: 287.5, ICD10: D69.6 - resolved 7. History of 2019 novel coronavirus disease (COVID-19) - ICD9: V12.09, ICD10: Z86.16 - no active issues. Requested Prescriptions Signed Prescriptions Disp Refills omeprazole (PRILOSEC) 40 mg capsule 90 capsule 1 Sig: Take 1 capsule by mouth daily before breakfast. 1/2 hr before meal. F/u 6 months extensive check CMP, lipid, UA, TSH, A1c, CBC, B12 and Mg prior Hilton Pena MD documented [facility]23 Miscellaneous Notes* Telephone Encounter - Jody Taylor RN - 08/12/2022 9:20 AM EST Patient has been identified by name and date of : Yes, Provider Dr Pena Date 08/12/22 Time 09. Patient phones for refill(s): Requested Prescriptions Pending Prescriptions Disp Refills levothyroxine (SYNTHROID) 50 mcg tablet 90 tablet 1 Sig: Take 1 tablet by mouth once daily. Take on empty stomach. For Thyroid. Date of last office visit in primary care: 03/18/22 Future visit: 09/07/22 Last 2 Encounter Wt Readings: Date: Wt: 03/24/2022 50.9 kg (112 lb 3.2 oz) 03/17/2022 51.6 kg (113 lb 12.8 oz) Previous labs/tests for medication: Thyroid: TSH Date Value 02/11/2022 2.180 mIU/L 08/02/2021 1.720 uU/mL Please advise. Thank you. Jody Taylor RN documented in this encounterMag[facility]10-10-2022 Miscellaneous Notes* Telephone Encounter - Hilda Ching MA - 05/02/2022 2:48 PM EDT Patient notified and voiced understanding. Hilda Ching MA * Telephone Encounter - Hilton Pena MD - 05/02/2022 12:46 PM EDT Patient not due for pneumonia booster till 2025. * Telephone Encounter - Gallo Weaver RN - 05/02/2022 11:15 AM EDT Patient asking pcp- when is she due for a pneumonia vaccine. Please advise patient. documented in this encounterMag[facility]09-[facility]-2022 History of Present illness Narrative* RT Bird(R) - 03/24/2022 11:00 AM EDT Radiology Service Progress Note PATIENT NAME: Kayley Dickinson DATE OF SERVICE: March 24, 2022 TIME: 11:12 AM PATIENT IDENTITY VERIFICATION COMPLETED USING TWO (2) IDENTIFIERS: Name and Date of confirmedby patient verbally. FALL SCREENING: Has the patient had 2 falls in the last year or 1 fall with injury or currently using an Ambulatory Assistive Device (Walker, Cane, Wheelchair, Crutches, etc.)? No PATIENT GENDER DATA: Female. status: : No status: NO. PATIENT RELEVANT IMPLANT DATA REVIEWED: Not Applicable RADIOLOGY DEPARTMENT: General X-ray: Exam(s) Completed: Chest X-Ray PERIPHERAL IV DATA: Not applicable SIGNED BY: RT Bird(R) March 24, 2022 11:12 AM documented in this encounterMag[facility]09-01-2022 History of Present illness Narrative* Hilton Monsalve APRN.[employer] - 03/24/2022 9:29 AM EDT Subjective HPI Nontoxic-appearing female presents urgent care chief complaint cough and fatigue. Duration of cough9 days. Patient states was diagnosed with COVID-19 March 17, 2022. Patient was placed on Paxil of it. Has completed Paxil of a dose. States last dose of Paxil of it was Monday. States she symptoms have significantly improved. Has not used any OTC medication. States cough is improving fatigue is improving. She has not been febrile for the last 4 days. States she did take 1 negative COVID-19 testand a positive COVID-19 test at home and is concerned about rebound from proximal COVID. Patient states she is feeling significantly better today. Denies any fevers body aches chills productive coughchest pain shortness of breath pleuritic pain hemoptysis nausea vomiting abdominal pain or change in bowel or bladder habits. Past medical history prescription medication use allergies reviewed. .Patient presents with: Cough: Cough and fatigue x 5 days PAST MEDICAL HISTORY Diagnosis Date Advance directive discussed with patient 02/25/2022 Discussed 02/2022 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 rich plaque 03/31/2019 Current use of proton pump inhibitor 07/30/2019 Elevated fasting blood sugar 03/29/2019 GERD without esophagitis 03/29/2019 High cholesterol History of squamous cell carcinoma of skin 03/31/2019 Right side of nose Hypothyroidism, acquired 03/29/[address] 02/25/2022 DPA: Micaela () Medicare annual wellness visit, subsequent 08/17/2020 Medical B eligibilty date 11/21/2002 Last done: 02/11/2020 Mixed hyperglyceridemia 03/29/2019 Osteopenia of spine 03/29/2019 PAST SURGICAL HISTORY Procedure Laterality Date CATARACT EXTRACTION HX Bilateral 2017 COLONOSCOPY 10/25/2021 repeat only if needed HYSTERECTOMY partial - age 40 MASTECTOMY, SIMPLE, COMPLETE Bilateral 1977 with implants for fibrocystic disease (?) NUCLEAR STRESS TEST (WT<440#) (UNION) 08/09/2013 old records: negative PAST SURGICAL HISTORY OF 1995 breast implants ALLERGIES Sulfa (Sulfonamide Antibiotics) and Adhesive Tape-Silicones MEDICATIONS omeprazole (PRILOSEC) 40 mg capsule Take 1 capsule by mouth daily before breakfast. 1/2 hr before meal. pravastatin (PRAVACHOL) 80 mg tablet Take 1 tablet by mouth once daily. cyanocobalamin (VITAMIN B-12) 500 mcg tablet Take 1 tablet by mouth once daily. levothyroxine (SYNTHROID) 50 mcg tablet Take 1 tablet by mouth once daily. Take on empty stomach. For Thyroid. ketoconazole (NIZORAL) 2 % cream Apply to affected area once daily. FERROUS SULFATE ORAL Take 1 tablet by mouth. aspirin, enteric coated (ASPIRIN, ENTERIC COATED) 81 mg EC tablet Take 81 mg by mouth. omega-3 acid ethyl esters (LOVAZA) 1 gram capsule Take 1 g by mouth. calcium carbonate-vitamin D3 (CALTRATE WITH VITAMIN D3) 600 mg(1,500mg) -800 unit tab Take 1 tabletby mouth twice daily. FAMILY HISTORY Problem Relation Age of Onset Heart Failure Mother Diabetes Sister Hyperlipidemia Sister Thyroid Sister Breast Cancer Maternal Grandmother Diabetes Daughter Hyperlipidemia Sister Alzheimer's Disease No Family History Colon Cancer No Family History Prostate Cancer No Family History Ovarian cancer No Family History Uterine Cancer No Family History Coronary Artery Disease No Family History Hypertension No Family History Kidney Disease No Family History Seizures No Family History Stroke No Family History Social History Tobacco Use Smoking status: Never Smokeless tobacco: Never Substance Use Topics Alcohol use: Not Currently Drug use: Not Currently BP 138/80 Pulse 74 Temp 36.9 C (98.4 F) (Tympanic) Resp 18 Wt 50.9 kg (112 lb 3.2 oz) SpO2 97% BMI 21.37 kg/m Review of Systems HENT: Positive for congestion. Respiratory: Positive for cough. Musculoskeletal: Positive for myalgias. Objective Physical Exam Constitutional: General: She is not in acute distress. Appearance: She is not diaphoretic. HENT: Head: Normocephalic. Mouth/Throat: Mouth: Mucous membranes are moist. Pharynx: Oropharynx is clear. No oropharyngeal exudate or posterior oropharyngeal erythema. Eyes: Conjunctiva/sclera: Conjunctivae normal. Pupils: Pupils are equal, round, and reactive to light. Cardiovascular: Rate and Rhythm: Normal rate and regular rhythm. Heart sounds: Normal heart sounds. Pulmonary: Effort: Pulmonary effort is normal. No tachypnea, accessory muscle usage or respiratory distress. Breath sounds: Normal breath sounds. No stridor. No wheezing, rhonchi or rales. Abdominal: Palpations: Abdomen is soft. Tenderness: There is no abdominal tenderness. Musculoskeletal: Cervical back: Normal range of motion and neck supple. No rigidity or tenderness. Lymphadenopathy: Cervical: No cervical adenopathy. Skin: General: Skin is warm and dry. Neurological: Mental Status: She is alert and oriented to person, place, and time. ASSESSMENT/PLAN: 1. Acute cough - ICD9: 786.2, ICD10: R05.1 - XR CHEST 2V FRONTAL/LAT IMPRESSION: No acute radiographic abnormality. Chest x-ray negative. Symptoms are improving. We will continue supportive therapies as discussed. Patient was educated on supportive therapies. Patient will follow up with primary care provider as needed. Patient was instructed to immediately proceed to emergency room for any new, worsening, or symptoms lasting longer than anticipated. The patient's clinical presentation is otherwise unremarkable at this time. Based on exam and clinical finding, the patient is stable for discharge. Plan of care was discussed with patient. Patient verbalizes understanding and agrees to plan of care. This note was generated using [employer] software. It may contain errors in wording, punctuation, or spelling. Hilton Monsalve APRN.[employer] documented in this encounterMag[facility]08-26-2022 Instructions* Patient Instructions* Pat Gibson APRN.CNP - 03/18/2022 9:50 AM EDT FACT SHEET FOR PATIENTS, PARENTS, AND CAREGIVERS EMERGENCY USE AUTHORIZATION (EUA) OF PAXLOVID FOR CORONAVIRUS DISEASE 2019 (COVID-19) You are being given this Fact Sheet because your healthcare provider believes it is necessary to provide you with PAXLOVID for the treatment of hdnr-ev-fzkoongf coronavirus disease (COVID-19) caused by the SARS-CoV-2 virus. This Fact Sheet contains information to help you understand the risks and benefits of taking the PAXLOVID you have received or may receive. The U.S. Food and Drug Administration (FDA) has issued an Emergency Use Authorization (EUA) to makePAXLOVID available during the COVID-19 pandemic (for more details about an EUA please see What is an Emergency Use Authorization? at the end of this document). PAXLOVID is not an FDA-approved medicine in the [place]. Read this Fact Sheet for information about PAXLOVID. Talk to your healthcare provider about your options or if you have any questions. It is your choice to take PAXLOVID. What is COVID-19? COVID-19 is caused by a virus called a coronavirus. You can get COVID-19 through close contact withanother person who has the virus. COVID-19 illnesses have ranged from very xpsh-as-fiwqrp, including illness resulting in . While information so far suggests that most COVID-19 illness is mild, serious illness can happen and maycause some of your other medical conditions to become worse. Older people and people of all ages with severe, long lasting (chronic) medical conditions like heart disease, lung disease, and diabetes,for example seem to be at higher risk of being hospitalized for COVID-19. What is PAXLOVID? PAXLOVID is an investigational medicine used to treat tfqr-tz-dcxzejad COVID-19 in adults and children [12 years of age and older weighing at least 88 pounds (40 kg)] with positive results of direct SARS-CoV-2 viral testing, and who are at high risk for progression to severe COVID-19, including hospitalization or . PAXLOVID is investigational because it is still being studied. There is limited information about the safety and effectiveness of using PAXLOVID to treat people with uchy-td-yqfqsvno COVID-19. The FDA has authorized the emergency use of PAXLOVID for the treatment of zqsx-xk-wxnqrkml COVID-19in adults and children [12 years of age and older weighing at least 88 pounds (40 kg)] with a positive test for the virus that causes COVID-19, and who are at high risk for progression to severe COVID-19, including hospitalization or , under an EUA. 1 Revised: 08 October 2021 What should I tell my healthcare provider before I take PAXLOVID? Tell your healthcare provider if you: Have any allergies Have liver or kidney disease Are or plan to become Are a child Have any serious illnesses Tell your healthcare provider about all the medicines you take, including prescription and epwf-uyh-tmnbixl medicines, vitamins, and herbal supplements. Some medicines may interact with PAXLOVID and may cause serious side effects. Keep a list of your medicines to show your healthcare provider and pharmacist when you get a new medicine. You can ask your healthcare provider or pharmacist for a list of medicines that interact with PAXLOVID. Do not start taking a new medicine without telling your healthcare provider. Your healthcare provider can tell you if it is safe to take PAXLOVID with other medicines. Tell your healthcare provider if you are taking combined hormonal contraceptive. PAXLOVID may affect how your control pills work. Females who are able to become should use another effective alternative form of contraception or an additional barrier method of contraception. Talk to your healthcare provider if you have any questions about contraceptive methods thatmight be right for you. How do I take PAXLOVID? PAXLOVID consists of 2 medicines: nirmatrelvir and ritonavir. Take 2 pink tablets of nirmatrelvir with 1 white tablet of ritonavir by mouth 2 times each day (in the morning and in the evening) for 5 days. For each dose, take all 3 tablets at the same time. If you have kidney disease, talk to your healthcare provider. You may need a different dose. Swallow the tablets whole. Do not chew, break, or crush the tablets. Take PAXLOVID with or without food. Do not stop taking PAXLOVID without talking to your healthcare provider, even if you feel better. If you miss a dose of PAXLOVID within 8 hours of the time it is usually taken, take it as soon as you remember. If you miss a dose by more than 8 hours, skip the missed dose and take the next dose atyour regular time. Do not take 2 doses of PAXLOVID at the same time. If you take too much PAXLOVID, call your healthcare provider or go to the nearest hospital emergency room right away. If you are taking a ritonavir-or cobicistat-containing medicine to treat hepatitis C or Human Immunodeficiency Virus (HIV), you should continue to take your medicine as prescribed by your healthcare provider. Talk to your healthcare provider if you do not feel better or if you feel worse after 5 days. Who should generally not take PAXLOVID? Do not take PAXLOVID if: You are allergic to nirmatrelvir, ritonavir, or any of the ingredients in PAXLOVID You are taking any of the following medicines: Alfuzosin Pethidine, propoxyphene Ranolazine Amiodarone, dronedarone, flecainide, propafenone, quinidine Colchicine Lurasidone, pimozide, clozapine Dihydroergotamine, ergotamine, methylergonovine Lovastatin, simvastatin Sildenafil (Revatio ) for pulmonary arterial hypertension (PAH) Triazolam, oral midazolam Apalutamide Carbamazepine, phenobarbital, phenytoin Rifampin [place] s Wort (hypericum perforatum) Taking PAXLOVID with these medicines may cause serious or life-threatening side effects or affect how PAXLOVID works. These are not the only medicines that may cause serious side effects if taken with PAXLOVID. PAXLOVID may increase or decrease the levels of multiple other medicines. It is very important to tell your healthcare provider about all of the medicines you are taking because additional laboratory tests or changes in the dose of your other medicines may be necessary while you are taking PAXLOVID. Your healthcare provider may also tell you about specific symptoms to watch out for that may indicate that you need to stop or decrease the dose of some of your other medicines. What are the important possible side effects of PAXLOVID? Possible side effects of PAXLOVID are: Allergic Reactions. Allergic reactions can happen in people taking PAXLOVID, even after only 1 dose. Stop taking PAXLOVID and call your healthcare provider right away if you get any of the following symptoms of an allergic reaction: hives trouble swallowing or breathing swelling of the mouth, lips, or face throat tightness hoarseness skin rash Liver Problems. Tell your healthcare provider right away if you have any of these signs and symptoms of liver problems: loss of appetite, yellowing of your skin and the whites of eyes (jaundice), dark-colored urine, pale colored stools and itchy skin, stomach area (abdominal) pain. Resistance to HIV Medicines. If you have untreated HIV infection, PAXLOVID may lead to some HIV medicines not working as well in the future. Other possible side effects include: altered sense of taste diarrhea high blood pressure muscle aches These are not all the possible side effects of PAXLOVID. Not many people have taken PAXLOVID. Serious and unexpected side effects may happen. PAXLOVID is still being studied, so it is possible that all of the risks are not known at this time. What other treatment choices are there? Veklury (remdesivir) is FDA-approved for the treatment of xtvu-pl-yysecyqp COVID-19 in certain adults and children. Talk with your doctor to see if Veklury is appropriate for you. Like PAXLOVID, FDA may also allow for the emergency use of other medicines to treat people with COVID-19. Go to https://www.fda.gov/xjwsztuef-jhjbgyaauvvc-ysfjitjujwc/rog-pfcjb-cvjgzlcjkt-and- policy-framework/okwbqyzfe-njw-aeviqpujcefik for information on the emergency use of other medicines that are authorized by FDA to treat people with COVID-19. Your healthcare provider may talk with you aboutclinical trials for which you may be eligible. It is your choice to be treated or not to be treated with PAXLOVID. Should you decide not to receive it or for your child not to receive it, it will not change your standard medical care. What if I am or ? There is pulmonologist/intensivist treating women or mothers with PAXLOVID. For a motherand unborn baby, the benefit of taking PAXLOVID may be greater than the risk from the treatment. Ifyou are , discuss your options and specific situation with your healthcare provider. It is recommended that you use effective barrier contraception or do not have sexual activity whiletaking PAXLOVID. If you are , discuss your options and specific situation with your healthcare provider. How do I report side effects with PAXLOVID? Contact your healthcare provider if you have any side effects that bother you or do not go away. Report side effects to [employer] at www.fda.gov/medwatch or call 5-784-KQE5653 or you can reportside effects to [employer] at the contact information provided below. Website Fax number Telephone number [employer] How should I store PAXLOVID? Store PAXLOVID tablets at room temperature, between 68?F to 77?F (20?C to 25?C). How can I learn more about COVID-19? Ask your healthcare provider. Visit https://www.cdc.gov/COVID19. Contact your local or state public health department. What is an Emergency Use Authorization (EUA)? The [place] FDA has made PAXLOVID available under an emergency access mechanism called an Emergency Use Authorization (EUA). The EUA is supported by a Grease Worker of Health and Human Service (HHS) declaration that circumstances exist to justify the emergency use of drugs and biological productsduring the COVID-19 pandemic. PAXLOVID for the treatment of eypg-dg-kqtunlph COVID-19 in adults and children [12 years of age andolder weighing at least 88 pounds (40 kg)] with positive results of direct SARS-CoV-2 viral testing, and who are at high risk for progression to severe COVID-19, including hospitalization or , has not undergone the same type of review as an FDA-approved product. In issuing an EUA under the COVID-19 public health emergency, the FDA has determined, among other things, that based on the total amount of scientific evidence available including data from adequate and well-controlled clinical trials, if available, it is reasonable to believe that the product may be effective for diagnosing, treating, or preventing COVID-19, or a serious or life-threatening disease or condition caused by COVID-19; that the known and potential benefits of the product, when used to diagnose, treat, or prevent such disease or condition, outweigh the known and potential risks of such product; and that there are no adequate, approved, and available alternatives. All of these criteria must be met to allow for the product to be used in the treatment of patients during the COVID-19 pandemic. The EUA for PAXLOVID is in effect for the duration of the COVID-19 declaration justifying emergency use of this product, unless terminated or revoked (after which the products may no longer be used under the EUA). Additional Information For general questions, visit the website or call the telephone number provided below. Website Telephone number [email or web address] (0-012-P71-PACK) You can also go to www.RemitDATA or call for more information. Pfizer Distributed by [employer] [place] [address] [id number] Revised: 08 October 2021 documented in this encounter[facility]08-[facility]22 History of Present illness Narrative* Pat Gibson APRN.CNP - 03/18/2022 8:20 AM EDT Chief Complaint Patient presents with: Covid Test Result This Team Access Model encounter involved medical decision making outside of a scheduled office visit. Patient was offered a virtual/telemedicine appointment in lieu of an office visit due to recommendations to reduce patient exposure to COVID-19. Telephone was used for evaluation of this patient. Patient agrees to the visit: Yes Patient Location: [facility] Kayley Dickinson is a 86 year old female who is contacted today for a phone visit This is an established patient of Dr. Hilton Pena MD Reports: Tested + Covid yesterday, was seen in [facility]. Symptoms started Monday. Had fatigue, sore throat, sinus drainage, and dry cough. Fever 100 today. Currently not using any medication at this time, was unsure what she could use. Refers that she is feeling mildly better today. Difficulty with talking because of sore throat. Discussion at [facility] with [employer] about oral antiviral andmonoclonal antibodies. Order for monoclonal antibodies has been faxed to [facility] however they are currently out of monoclonal antibodies at this time. Denies any difficulty breathing. She isagreeable to start oral treatment. Maxwell significant other present during this visit. Past medical history, appointments, medications, allergies reviewed 03/17/2022 Previous Medical History PAST MEDICAL HISTORY Diagnosis Date Advance directive discussed with patient 02/25/2022 Discussed 02/2022 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 rich plaque 03/31/2019 Current use of proton pump inhibitor 07/30/2019 Elevated fasting blood sugar 03/29/2019 GERD without esophagitis 03/29/2019 High cholesterol History of squamous cell carcinoma of skin 03/31/2019 Right side of nose Hypothyroidism, acquired 03/29/[address] 02/25/2022 DPA: Micaela () Medicare annual wellness visit, subsequent 08/17/2020 Medical B eligibilty date 11/21/2002 Last done: 02/11/2020 Mixed hyperglyceridemia 03/29/2019 Osteopenia of spine 03/29/2019 Previous Surgical History PAST SURGICAL HISTORY Procedure Laterality Date CATARACT EXTRACTION HX Bilateral 2018 COLONOSCOPY 10/25/2021 repeat only if needed HYSTERECTOMY partial - age 40 MASTECTOMY, SIMPLE, COMPLETE Bilateral 1976 with implants for fibrocystic disease (?) NUCLEAR STRESS TEST (WT<440#) ([facility]) 08/09/2013 old records: negative PAST SURGICAL HISTORY OF 1995 breast implants Family History FAMILY HISTORY Problem Relation Age of Onset Heart Failure Mother Diabetes Sister Hyperlipidemia Sister Thyroid Sister Breast Cancer Maternal Grandmother Diabetes Daughter Hyperlipidemia Sister Alzheimer's Disease No Family History Colon Cancer No Family History Prostate Cancer No Family History Ovarian cancer No Family History Uterine Cancer No Family History Coronary Artery Disease No Family History Hypertension No Family History Kidney Disease No Family History Seizures No Family History Stroke No Family History Patient Allergies ALLERGIES Allergen Reactions Sulfa (Sulfonamide * Swelling Adhesive Tape-Silic* Rash Current Medications Current Outpatient Medications on File Prior to Visit Medication Sig omeprazole (PRILOSEC) 40 mg capsule Take 1 capsule by mouth daily before breakfast. 1/2 hr before meal. pravastatin (PRAVACHOL) 80 mg tablet Take 1 tablet by mouth once daily. cyanocobalamin (VITAMIN B-12) 500 mcg tablet Take 1 tablet by mouth once daily. levothyroxine (SYNTHROID) 50 mcg tablet Take 1 tablet by mouth once daily. Take on empty stomach. For Thyroid. ketoconazole (NIZORAL) 2 % cream Apply to affected area once daily. FERROUS SULFATE ORAL Take 1 tablet by mouth. aspirin, enteric coated (ASPIRIN, ENTERIC COATED) 81 mg EC tablet Take 81 mg by mouth. omega-3 acid ethyl esters (LOVAZA) 1 gram capsule Take 1 g by mouth. calcium carbonate-vitamin D3 (CALTRATE WITH VITAMIN D3) 600 mg(1,500mg) -800 unit tab Take 1 tabletby mouth twice daily. No current facility-administered medications on file prior to visit. Social History Social History Tobacco Use Smoking status: Never Smokeless tobacco: Never Substance Use Topics Alcohol use: Not Currently Drug use: Not Currently Review of Symptoms GENERAL: + Fatigue/Fever HEENT: Negative for headaches No eye discharge or redness No earaches + sore throat Nose POS/NEG for congestion and nasal discharge NECK: Negative for pain or swelling. No lumps RESPIRATORY: + Cough CARDIOVASCULAR: Negative for chest pain GI: No nausea, vomiting, or diarrhea MUSCULOSKELETAL: Negative for bodyaches SKIN: Negative for rash or itching Neuro: No lightheadedness or dizziness EXAM: There were no vitals taken for this visit. Limited exam as visit was completed over the phone platform. Virtual visit completed using video, limited exam completed. Patient sounds or appears ill: Yes Patient is not able to speak in complete sentences: N/A Patient has labored breathing: No. Patient is audibly coughing: Yes Psych: Attitude - cooperative, easily engaged in conversation Affect - Euthymic, normal mood Mental status: Alert. Speech is clear and fluent with good repetition, comprehension Health Maintenance List DTAP,TDAP,TD(2 - Td or Tdap) due on 02/25/2023 INFLUENZA(1) due on 03/24/2022 LDL CHOLESTEROL due on 02/11/2023 DIABETES SCREEN due on 02/11/2025 BONE DENSITY Completed ADVANCE DIRECTIVE DISCUSSION Completed SHINGRIX VACCINE Completed COVID-19 VACCINE Completed PNEUMOCOCCAL: 65+ Completed Data reviewed Last 5 Encounter BP Readings: Date: BP: 03/17/2022 132/74 02/25/2022 130/70 09/14/2021 163/72 09/06/2021 122/68 08/10/2021 128/68 BMI Readings from Last 5 Encounters: 03/17/22 : 21.68 kg/m 02/25/22 : 21.34 kg/m 09/14/21 : 21.77 kg/m 09/06/21 : 20.85 kg/m 08/10/21 : 20.85 kg/m Last 5 Encounter Wt Readings: Date: Wt: 03/17/2022 51.6 kg (113 lb 12.8 oz) 02/25/2022 50.8 kg (112 lb) 09/14/2021 54 kg (119 lb) 09/06/2021 51.7 kg (114 lb) 08/10/2021 51.7 kg (114 lb) Medication and allergy list reviewed, reconciled and updated 03/17/2022 ASSESSMENT/PLAN: 1. COVID-19 - ICD9: 079.89, ICD10: U07.1 - Start Paxlovid, take as directed. - Instructed to use hlcg-inl-yqcfhbc cold and cough medication as needed for symptom management. - Red flag symptoms given to patient and significant other, they both verbalized understanding whento seek emergency care. - Quarantine 5 days from the onset of symptoms. Follow-up as needed or sooner if symptoms get worse or do not improve. Discussed treatment plan and patient voices understanding. Patient's questions answered appropriately. Medications and potential side effects were discussed and patient voices understanding. Pat Gibson APRN.[employer] This note was partially generated using [employer] voice recognition system. Note was reviewed for accuracy. There may be minor misspellings or grammar miscues with [employer] voice recognition. Total appointment time on phone with patient = 11-20 minutes Nirmatrelvir/Ritonavir (Paxlovid) Eligibility and Patient Discussion [facility] Formulary Restriction Criteria: Adult outpatients 18 years and older with ALL of the following: [x] Patient has positive SARS-COV-2 viral test (PCR or antigen test) during current illness [x] Patient has symptoms for 5 days or less [x] Not requiring hospitalization at any time for management of COVID-19 [x] Not requiring supplemental oxygen or a change in baseline supplemental oxygen [x] Not utilized for pre-exposure or post-exposure prophylaxis for prevention of COVID-19 [x] Patient does not have severe renal impairment (eGFR < 30 mL/min) or severe hepatic impairment (Child-Cunningham Class C) [x] Meeting at least one of the criteria for high risk of progression to severe COVID-19: [x] Age over 65 years [x] Cancer [] Chronic kidney disease [] Chronic liver disease [] Chronic lung diseases, including cystic fibrosis [] Dementia or other neurological conditions [] Diabetes (type 1 or type 2) [] Disabilities, including Down syndrome and neurodevelopmental disorders [x] Heart conditions [] HIV infection [] Immunocompromised state [] Mental health conditions [] Medical related technological dependence (tracheostomy, gastrostomy, or positive pressure ventilation (not related to COVID) [] Overweight and obesity (BMI greater or equal to 25 for adults) [] Physical inactivity [] [] Sickle cell disease or thalassemia [] Smoking, current or former [] Solid organ or blood stem cell transplant [] Stroke or cerebrovascular disease [] Substance use disorders [] Tuberculosis [] People from racial and ethnic minority groups Criteria above are met: Yes Date of Positive Test:03/17/2022 Date of Symptom Onset: 03/16/2022 Patient received COVID vaccine: Yes Drug-Drug interactions reviewed: No. I have discussed the use of the investigational therapeutic, nirmatrelvir/ritonavir, for the treatment of mild to moderate COVID-19 and its use under Emergency Use Authorization with the patient. The patient was informed that nirmatrelvir/ritonavir is not an FDA approved drug and that it is authorized for use under this Emergency Use Authorization. The patient was also informed of the significant known benefits and potential risks of nirmatrelvir/ritonavir, and the extent to which such potential risks and benefits are unknown. The patient was informed that there is mandatory reporting of all medication errors and serious adverse events potentially related to nirmatrelvir/ritonavir treatment within 7 calendar days from the onset of the event and that events up to 28 days after completion of therapy need to be reported. The discussion included alternatives to receiving nirmatrelvir/rit onavir, including clinical trials, and potential the risks and benefits of those alternatives. The patient was provided electronically with the Fact Sheet for Patients, Parents and Caregivers. The patient was also instructed that in addition to the treatment with nirmatrelvir/ritonavir, he/she should continue to self-isolate and use infection control measures (e.g., wear mask, isolate, social distance, avoid sharing personal items, clean and disinfect high touch surfaces, and frequent h andwashing) according to CDC guidelines. The patient stated understanding and gave verbal consent to proceeding with nirmatrelvir/ritonavir treatment. Pat Gibson APRN.CNP March 18, 2022 9:59 AM documented in this encounterMagruder Hospital08-26-2022 Miscellaneous Notes* Telephone Encounter - Kalee Barnhart EDWARD - 03/18/2022 8:08 AM EDT Images from the original note were not included. Patient Ramin calling he is asking about results of COVID testing. Contains abnormal data 2019 CORONAVIRUS Order: [id number] Status: Final result Visible to patient: Yes (seen) Dx: Suspected COVID-19 virus infection Specimen Information: UPPER RESPIRATORY TRACT SWAB; Nasal Swab 1 Result Note 1 Patient Communication Component Ref Range & Units 1 d ago COVID 19 Result Not Detected SARS-CoV-2 (Agent of COVID-19) Detected by RT-PCR or equivalent method. Abnormal Comment: This test was developed and its performance characteristics determined by [facility] [place]. This test has been authorized by FDA under an Emergency Use Authorization (EUA). This test has been validated in accordance with the FDA's Guidance Document Policy for DiagnosticsTesting in Laboratories Certified to Perform High Complexity Testing under CLIA prior to Emergency use Authorization for Coronavirus Disease 2019 during the Public Health Emergency issued on September 21, 2019. Test performed by [facility], [facility] [place], [address] [id number]. Resulting Agency CCM Specimen Collected: 03/17/22 9:13 AM EDT Last Resulted: 03/17/22 11:55 PM EDT Lab Flowsheet Order Details View Encounter Lab and Collection Details Routing Result History View Encounter Conversation Result Care Coordination Result Notes Nico Holloway APRN.CNP 03/18/2022 7:27 AM EDT Back to Top Patient notified of positive COVID test. Patient Communication Append Comments Seen Back to Top You tested positive for COVID-19 Follow the CDC guidelines for isolation: 1. Everyone, regardless of vaccination status, should stay home for 5 days. ... Written by Nico Holloway APRN.CNP on 03/18/2022 7:27 AM EDT View Full Comments Seen by patient Kayley Dickinson on 03/18/2022 7:30 AM Result Information Flag: Abnormal Abnormal Status: Final result (Resulted: 03/17/2022 11:55 PM) Provider Status: Reviewed Questions Order Question Answer Is the patient a [facility] employee? No Symptomatic: Yes Date of symptom onset: 03/17/2022 First Test: Unknown Employed in healthcare: Unknown Hospitalized: No Resident in a congregate care setting (nursing homes, psychiatric treatment facilities, group homes, board and care homes, homeless intermediate, foster care or other setting): Unknown : No Is patient a household member of a [facility] Caregiver/Employee? No Collection Question Answer Bedded in ICU: 2019 CORONAVIRUS: Result Notes Nico Holloway APRN.CNP 03/18/2022 7:27 AM EDT Patient notified of positive COVID test. Patient Release Status: This result is viewable by the patient in [employer]. Last viewed in [employer]: 03/18/2022 7:30 AM By: Kayley Dickinson Routing History Priority Sent On From To Message Type 03/17/2022 11:55 PM Lab, Background User [facility] Provider Pool Results View [employer] Info 2019 CORONAVIRUS (Order #[id number]) on 03/17/22 CAP/CLIA/Joint Commission Regulatory Result Report 2019 CORONAVIRUS (Order #[id number]) on 03/17/22 2019 CORONAVIRUS: Patient Communication Append Comments Seen You tested positive for COVID-19 Follow the CDC guidelines for isolation: 1. Everyone, regardless of vaccination status, should stay home for 5 days. 2. If you have no symptoms or your symptoms are resolving after 5 days, you can leave your house. 3. Continue to wear a mask around others for 5 additional days. If you have a fever, continue to stay home until your fever resolves, even if it is longer than 5 days. Please monitor your symptoms, and for any worrisome symptoms, call your primary care provider or schedule a visit with [facility]. A test is not recommended to return to work/school when meeting the above criteria. Written by Nico Holloway APRN.CNP on 03/18/2022 7:27 AM EDT Seen by patient Kayley Brian Em on 03/18/2022 7:30 AM Went over results, notes from express care provider with understanding. documented in this encounterMag[facility] Hospital08-25-2022 Instructions* Patient Instructions* Hilton Monsalve APRN.CNP - 03/17/2022 9:09 AM EDT How to Manage Common Symptoms Associated with COVID for Adults Fever- Fever is a temperature over 100.4 F and can occur when the body is fighting an infection. Tohelp treat a fever: Drink plenty of fluids and stay well hydrated. Eat small amounts of easy to digest food. Rest. Your body needs rest to recover, but getting up and moving around the house frequently is a good idea. You should try to continue doing your normal daily activities (bathing, toileting, grooming, cooking), though you will probably feel tired, and need to rest often. Avoid any heavy activity or exercise, as this will increase your body temperature. Dress in light clothing and stay covered in a light sheet. Keep the room temperature cool. Take a slightly warm (not cold or cool) bath, or apply damp washcloths to the forehead and wrists. Cough- Cough is a common symptom associated with COVID and can be bothersome. To help treat a cough: Stay well hydrated. Try warm water or tea with lemon and/or honey to help soothe the cough. Use a humidifier to add moisture to the air. Try a product with menthol, like a cough drop or a rub for your chest such as Vicks, which can helpreduce cough. Try cough drops. Avoid smoking and other strong odors or perfumes. Try breathing exercises to keep your lungs open and clear. Take a big deep breath through your noseand hold for 5 seconds before slowly releasing. Repeat frequently, while you are awake. Congestion- Runny nose or nasal congestion can occur with COVID. Treatment can help relieve symptoms: Try OTC nasal saline spray, or nasal saline rinse to relieve mucus congestion. Nasal strips can help keep nasal passages open, to increase airflow. Elevating your head with an extra pillow in bed can help reduce congestion. Using a humidifier can increase moisture in the air, and make breathing easier. Sore Throat- Another common symptom with COVID, can be managed at home by: Stay well hydrated. Gargle with salt water - mix teaspoon salt with 1 cup of warm water and gargle. This helps to loosen mucus in the back of the throat and may reduce discomfort. Try ice chips, popsicles or lozenges to soothe the throat. Nausea/Vomiting/Diarrhea- These are common symptoms, and staying hydrated is most important. If you are nauseous or vomiting, start with small sips of water every 10-15 minutes and increase astolerated. You can try sucking an ice cube too. If tolerating, you can try pedialyte or Gatorade, or flat sprite or luis manuel-rick. Start slowly and increase as you are able to. Instead of meals, try smaller, more frequent snacks. Try eating bland foods like crackers, toast, rice, and applesauce. Avoid spicy, greasy or fried foods and dairy containing foods. Even if you aren't feeling hungry due to lack of smell or taste, it is important to try to take in some food when you are able. After drinking and eating, rest in an upright position for up to two hours as needed to help decrease nauseous feelings. Try closing your eyes, avoid moving and watching TV. Avoid strong odors that can make you feel more nauseated. When to seek emergency medical attention Look for emergency warning signs for COVID-19. If having any of these symptoms, seek emergency medical care immediately: Trouble breathing Persistent pain or pressure in the chest New confusion Inability to wake or stay awake Bluish lips or face *This list is not all possible symptoms. Please call your medical provider for any other symptoms that are severe or concerning to you. documented in this encounterMag[facility] Hospital08-25-2022 History of Present illness Narrative* Hilton Monsalve APRN.CNP - 03/17/2022 8:51 AM EDT Subjective HPI Nontoxic-appearing female presents urgent care chief complaint COVID-19 concerns. Patient states did have a positive home test today. States symptoms started 2 days ago. States overall she feels fineand is fatigue. Has not taken any OTC medications. Denies any known sick contacts. States she is vaccinated against COVID-19. States she has received 2 COVID-19 boosters. Denies any problem let me body aches chills and cough chest pain shortness of breath pleuritic pain hemoptysis nausea vomiting abdominal pain or change in bowel or bladder habits. Past medical history prescription medication useallergies reviewed. .Patient presents with: Sore Throat: Cough, fatigue, congestion x2 days, + rapid x this AM PAST MEDICAL HISTORY Diagnosis Date Advance directive discussed with patient 02/25/2022 Discussed 02/2022 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 rich plaque 03/31/2019 Current use of proton pump inhibitor 07/30/2019 Elevated fasting blood sugar 03/29/2019 GERD without esophagitis 03/29/2019 High cholesterol History of squamous cell carcinoma of skin 03/31/2019 Right side of nose Hypothyroidism, acquired 03/29/[address] 02/25/2022 DPA: Micaela () Medicare annual wellness visit, subsequent 08/17/2020 Medical B eligibilty date 11/21/2002 Last done: 02/11/2020 Mixed hyperglyceridemia 03/29/2019 Osteopenia of spine 03/29/2019 PAST SURGICAL HISTORY Procedure Laterality Date CATARACT EXTRACTION HX Bilateral 2018 COLONOSCOPY 10/25/2021 repeat only if needed HYSTERECTOMY partial - age 40 MASTECTOMY, SIMPLE, COMPLETE Bilateral 1976 with implants for fibrocystic disease (?) NUCLEAR STRESS TEST (WT<440#) ([facility]) 08/09/2013 old records: negative PAST SURGICAL HISTORY OF 1995 breast implants ALLERGIES Sulfa (Sulfonamide Antibiotics) and Adhesive Tape-Silicones MEDICATIONS omeprazole (PRILOSEC) 40 mg capsule Take 1 capsule by mouth daily before breakfast. 1/2 hr before meal. pravastatin (PRAVACHOL) 80 mg tablet Take 1 tablet by mouth once daily. cyanocobalamin (VITAMIN B-12) 500 mcg tablet Take 1 tablet by mouth once daily. levothyroxine (SYNTHROID) 50 mcg tablet Take 1 tablet by mouth once daily. Take on empty stomach. For Thyroid. ketoconazole (NIZORAL) 2 % cream Apply to affected area once daily. FERROUS SULFATE ORAL Take 1 tablet by mouth. aspirin, enteric coated (ASPIRIN, ENTERIC COATED) 81 mg EC tablet Take 81 mg by mouth. omega-3 acid ethyl esters (LOVAZA) 1 gram capsule Take 1 g by mouth. calcium carbonate-vitamin D3 (CALTRATE WITH VITAMIN D3) 600 mg(1,500mg) -800 unit tab Take 1 tabletby mouth twice daily. FAMILY HISTORY Problem Relation Age of Onset Heart Failure Mother Diabetes Sister Hyperlipidemia Sister Thyroid Sister Breast Cancer Maternal Grandmother Diabetes Daughter Hyperlipidemia Sister Alzheimer's Disease No Family History Colon Cancer No Family History Prostate Cancer No Family History Ovarian cancer No Family History Uterine Cancer No Family History Coronary Artery Disease No Family History Hypertension No Family History Kidney Disease No Family History Seizures No Family History Stroke No Family History Social History Tobacco Use Smoking status: Never Smokeless tobacco: Never Substance Use Topics Alcohol use: Not Currently Drug use: Not Currently BP 132/74 Pulse 102 Temp (!) 38.4 C (101.2 F) Resp 18 Wt 51.6 kg (113 lb 12.8 oz) SpO2 96% BMI 21.68 kg/m Hr 89 Review of Systems Constitutional: Positive for fever and malaise/fatigue. Negative for chills. HENT: Positive for congestion and sore throat. Negative for ear discharge, ear pain and sinus pain. Eyes: Negative for blurred vision, pain, discharge and redness. Respiratory: Negative for cough, hemoptysis, sputum production, shortness of breath, wheezing and stridor. Cardiovascular: Negative for chest pain. Gastrointestinal: Negative for abdominal pain, diarrhea, nausea and vomiting. Musculoskeletal: Positive for myalgias. Skin: Negative for itching and rash. Neurological: Negative for dizziness and headaches. Objective Physical Exam Constitutional: General: She is not in acute distress. Appearance: She is not diaphoretic. HENT: Head: Normocephalic. Nose: Congestion present. Mouth/Throat: Mouth: Mucous membranes are moist. Pharynx: Oropharynx is clear. No oropharyngeal exudate or posterior oropharyngeal erythema. Eyes: Conjunctiva/sclera: Conjunctivae normal. Pupils: Pupils are equal, round, and reactive to light. Cardiovascular: Rate and Rhythm: Normal rate and regular rhythm. Heart sounds: Normal heart sounds. Pulmonary: Effort: Pulmonary effort is normal. No tachypnea, accessory muscle usage or respiratory distress. Breath sounds: Normal breath sounds. No stridor. No wheezing, rhonchi or rales. Abdominal: General: There is no distension. Palpations: Abdomen is soft. Tenderness: There is no abdominal tenderness. There is no guarding or rebound. Musculoskeletal: Cervical back: Normal range of motion and neck supple. No rigidity or tenderness. Lymphadenopathy: Cervical: No cervical adenopathy. Skin: General: Skin is warm and dry. Neurological: Mental Status: She is alert and oriented to person, place, and time. ASSESSMENT/PLAN: 1. Suspected COVID-19 virus infection - ICD9: V01.79, ICD10: Z20.822 - 2019 CORONAVIRUS COVID-19 test ordered. We discussed antiviral medication versus monoclonal antibody therapy. We discussed risk and benefits of both treatment options. We discussed timeframe of starting therapies. Atthis time patient opts not to start monoclonal antibody therapy after PCR confirmation. Pulm appointment scheduled for tomorrow at 8 AM. Patient was educated on supportive therapies. Patient was instructed to immediately proceed to emergency room for any new, worsening, or symptoms lasting longer than anticipated. The patient's clinical presentation is otherwise unremarkable at this time. Based on exam and clinical finding, the patient is stable for discharge. Plan of care was discussed with patient. Patient verbalizes understanding and agrees to plan of care. This note was generated using [employer] software. It may contain errors in wording, punctuation, or spelling. iHlton Monsalve APRN.ROSE MARIE documented in [facility] History of Past illness Narrative* Problem Noted Date Resolved Date Thrombocytopenia 02/26/2022 09/07/2022 documented as of this encounter (statuses as of 09/08/2022) [address]06-[address]22 History of Past illness Narrative* Problem Noted Date Resolved Date Thrombocytopenia 02/26/2022 09/07/2022 documented as of this encounter (statuses as of 12/30/2022) [address]06-2022 History of Past illness Narrative* Problem Noted Date Resolved Date Thrombocytopenia 02/26/2022 09/07/2022 documented as of this encounter (statuses as of 12/27/2022) [address]06-[address]22 History of Past illness Narrative* Problem Noted Date Resolved Date Thrombocytopenia 02/26/2022 09/07/2022 documented as of this encounter (statuses as of 12/27/2022) [address]06-2022 History of Past illness Narrative* Problem Noted Date Resolved Date Thrombocytopenia 02/26/2022 09/07/2022 documented as of this encounter (statuses as of 12/27/2022) [address]06-2022 History of Past illness Narrative* Problem Noted Date Resolved Date Thrombocytopenia 02/26/2022 09/07/2022 documented as of this encounter (statuses as of 12/28/2022) [address]06-[address]22 History of Past illness Narrative* Problem Noted Date Resolved Date Thrombocytopenia 02/26/2022 09/07/2022 documented as of this encounter (statuses as of 01/05/2023) [address]06-[address]22 History of Past illness Narrative* Problem Noted Date Resolved Date Thrombocytopenia 02/26/2022 09/07/2022 documented as of this encounter (statuses as of 01/09/2023) [address]06-[address]22 History of Past illness Narrative* Problem Noted Date Resolved Date Thrombocytopenia 02/26/2022 09/07/2022 documented as of this encounter (statuses as of 01/19/2023) [address]06-[address]22 History of Past illness Narrative* Problem Noted Date Resolved Date Thrombocytopenia 02/26/2022 09/07/2022 documented as of this encounter (statuses as of 01/24/2023) [address]06-[address]22 History of Past illness Narrative* Problem Noted Date Resolved Date Thrombocytopenia 02/26/2022 09/07/2022 documented as of this encounter (statuses as of 01/24/2023) [address]06-[address]22 History of Past illness Narrative* Problem Noted Date Diagnosed Date Resolved Date Thrombocytopenia 02/26/2022 09/07/2022 documented as of this encounter (statuses as of 02/12/2023) [address]06-[address]22 History of Past illness Narrative* Problem Noted Date Diagnosed Date Resolved Date Thrombocytopenia 02/26/2022 09/07/2022 documented as of this encounter (statuses as of 02/15/2023) [address]06-[address]22 History of Past illness Narrative* Problem Noted Date Diagnosed Date Resolved Date Thrombocytopenia 02/26/2022 09/07/2022 documented as of this encounter (statuses as of 02/16/2023) [address]06-[address]22 History of Past illness Narrative* Problem Noted Date Diagnosed Date Resolved Date Thrombocytopenia 02/26/2022 09/07/2022 documented as of this encounter (statuses as of 02/21/2023) [address]06-[address]22 History of Past illness Narrative* Problem Noted Date Diagnosed Date Resolved Date Thrombocytopenia 02/26/2022 09/07/2022 documented as of this encounter (statuses as of 02/21/2023) [address]06-[address]22 History of Past illness Narrative* Problem Noted Date Diagnosed Date Resolved Date Thrombocytopenia 02/26/2022 09/07/2022 documented as of this encounter (statuses as of 02/23/2023) [address]22 History of Past illness Narrative* Problem Noted Date Diagnosed Date Resolved Date Thrombocytopenia 02/26/2022 09/07/2022 documented as of this encounter (statuses as of 02/23/2023) [address]06-2022 History of Past illness Narrative* Problem Noted Date Diagnosed Date Resolved Date Thrombocytopenia 02/26/2022 09/07/2022 documented as of this encounter (statuses as of 02/23/2023) [address]06-[address]22 History of Past illness Narrative* Problem Noted Date Diagnosed Date Resolved Date Thrombocytopenia 02/26/2022 09/07/2022 documented as of this encounter (statuses as of 02/24/2023) [address]06-[address]22 History of Past illness Narrative* Problem Noted Date Diagnosed Date Resolved Date Thrombocytopenia 02/26/2022 09/07/2022 documented as of this encounter (statuses as of 02/24/2023) [address]06-2022 History of Past illness Narrative* Problem Noted Date Diagnosed Date Resolved Date Thrombocytopenia 02/26/2022 09/07/2022 documented as of this encounter (statuses as of 02/26/2023) [address]06-2022 History of Past illness Narrative* Problem Noted Date Diagnosed Date Resolved Date Thrombocytopenia 02/26/2022 09/07/2022 documented as of this encounter (statuses as of 02/26/2023) [address]06-2022 History of Past illness Narrative* Problem Noted Date Diagnosed Date Resolved Date Thrombocytopenia 02/26/2022 09/07/2022 documented as of this encounter (statuses as of 02/27/2023) [address]06-2022 History of Past illness Narrative* Problem Noted Date Diagnosed Date Resolved Date Thrombocytopenia 02/26/2022 09/07/2022 documented as of this encounter (statuses as of 03/01/2023) [address]06-2022 History of Past illness Narrative* Problem Noted Date Diagnosed Date Resolved Date Thrombocytopenia 02/26/2022 09/07/2022 documented as of this encounter (statuses as of 03/04/2023) [address]06-2022 History of Past illness Narrative* Problem Noted Date Diagnosed Date Resolved Date Thrombocytopenia 02/26/2022 09/07/2022 documented as of this encounter (statuses as of 03/09/2023) [address]06-2022 History of Past illness Narrative* Problem Noted Date Diagnosed Date Resolved Date Thrombocytopenia 02/26/2022 09/07/2022 documented as of this encounter (statuses as of 03/10/2023) [address]06-2022 History of Past illness Narrative* Problem Noted Date Diagnosed Date Resolved Date Thrombocytopenia 02/26/2022 09/07/2022 documented as of this encounter (statuses as of 03/10/2023) [address]06-2022 History of Past illness Narrative* Problem Noted Date Diagnosed Date Resolved Date Thrombocytopenia 02/26/2022 09/07/2022 documented as of this encounter (statuses as of 03/14/2023) [address]06-2022 History of Past illness Narrative* Problem Noted Date Diagnosed Date Resolved Date Thrombocytopenia 02/26/2022 09/07/2022 documented as of this encounter (statuses as of 03/17/2023) [address]06-2022 History of Past illness Narrative* Problem Noted Date Diagnosed Date Resolved Date Thrombocytopenia 02/26/2022 09/07/2022 documented as of this encounter (statuses as of 03/17/2023) [address]06-2022 History of Past illness Narrative* Problem Noted Date Diagnosed Date Resolved Date Thrombocytopenia 02/26/2022 09/07/2022 documented as of this encounter (statuses as of 03/17/2023) [address]06-2022 History of Past illness Narrative* Problem Noted Date Diagnosed Date Resolved Date Thrombocytopenia 02/26/2022 09/07/2022 documented as of this encounter (statuses as of 03/21/2023) [address]06-2022 History of Past illness Narrative* Problem Noted Date Diagnosed Date Resolved Date Thrombocytopenia 02/26/2022 09/07/2022 documented as of this encounter (statuses as of 03/31/2023) [address]06-2022 History of Past illness Narrative* Problem Noted Date Diagnosed Date Resolved Date Thrombocytopenia 02/26/2022 09/07/2022 documented as of this encounter (statuses as of 04/04/2023) [address]06-2022 History of Past illness Narrative* Problem Noted Date Diagnosed Date Resolved Date Thrombocytopenia 02/26/2022 09/07/2022 documented as of this encounter (statuses as of 04/05/2023) [address]06-2022 History of Past illness Narrative* Problem Noted Date Diagnosed Date Resolved Date Thrombocytopenia 02/26/2022 09/07/2022 documented as of this encounter (statuses as of 04/06/2023) [address]06-2022 History of Past illness Narrative* Problem Noted Date Diagnosed Date Resolved Date Thrombocytopenia 02/26/2022 09/07/2022 documented as of this encounter (statuses as of 04/08/2023) [address]06-2022 History of Past illness Narrative* Problem Noted Date Diagnosed Date Resolved Date Thrombocytopenia 02/26/2022 09/07/2022 documented as of this encounter (statuses as of 04/15/2023) [address]06-2022 History of Past illness Narrative* Problem Noted Date Diagnosed Date Resolved Date Thrombocytopenia 02/26/2022 09/07/2022 documented as of this encounter (statuses as of 04/22/2023) [address]06-2022 History of Past illness Narrative* Problem Noted Date Diagnosed Date Resolved Date Thrombocytopenia 02/26/2022 09/07/2022 documented as of this encounter (statuses as of 04/28/2023) [address]06-2022 History of Past illness Narrative* Problem Noted Date Diagnosed Date Resolved Date Thrombocytopenia 02/26/2022 09/07/2022 documented as of this encounter (statuses as of 04/29/2023) [address]06-2022 History of Past illness Narrative* Problem Noted Date Diagnosed Date Resolved Date Thrombocytopenia 02/26/2022 09/07/2022 documented as of this encounter (statuses as of 05/02/2023) [address]06-2022 History of Past illness Narrative* Problem Noted Date Diagnosed Date Resolved Date Thrombocytopenia 02/26/2022 09/07/2022 documented as of this encounter (statuses as of 05/05/2023) [address]06-2022 History of Past illness Narrative* Problem Noted Date Diagnosed Date Resolved Date Thrombocytopenia 02/26/2022 09/07/2022 documented as of this encounter (statuses as of 05/06/2023) [address]06-2022 History of Past illness Narrative* Problem Noted Date Diagnosed Date Resolved Date Thrombocytopenia 02/26/2022 09/07/2022 documented as of this encounter (statuses as of 05/15/2023) [address]06-2022 History of Past illness Narrative* Problem Noted Date Diagnosed Date Resolved Date Thrombocytopenia 02/26/2022 09/07/2022 documented as of this encounter (statuses as of 05/19/2023) [address]06-2022 History of Past illness Narrative* Problem Noted Date Diagnosed Date Resolved Date Thrombocytopenia 02/26/2022 09/07/2022 documented as of this encounter (statuses as of 05/27/2023) [address]06-2022 History of Past illness Narrative* Problem Noted Date Diagnosed Date Resolved Date Thrombocytopenia 02/26/2022 09/07/2022 documented as of this encounter (statuses as of 05/29/2023) [place] [address]06-[address]22 History of Past illness Narrative* Problem Noted Date Diagnosed Date Resolved Date Thrombocytopenia 02/26/2022 09/07/2022 documented as of this encounter (statuses as of 05/29/2023) [place] [address]22 History of Past illness Narrative* Problem Noted Date Diagnosed Date Resolved Date Thrombocytopenia 02/26/2022 09/07/2022 documented as of this encounter (statuses as of 05/31/2023) [place] [address]22 History of Past illness Narrative* Problem Noted Date Diagnosed Date Resolved Date Thrombocytopenia 02/26/2022 09/07/2022 documented as of this encounter (statuses as of 05/31/2023) [facility] Instructions* Patient Instructions* Hilton Pena MD - 02/25/2022 2:51 PM EDT Bring in copies of living burns and power of business attorney for health care. Please get labs done on or after 08/12/2022 prior to your next visit. documented [facility] History of Present illness Narrative* Hilton Pena MD - 02/25/2022 2:16 PM EDT Medicare Yearly Visit Medical B eligibilty date 11/21/2002 Date of last exam 02/12/2021 PAST MEDICAL HISTORY PAST MEDICAL HISTORY Diagnosis Date 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 rich plaque 03/31/2019 Current use of proton pump inhibitor 07/30/2019 Elevated fasting blood sugar 03/29/2019 GERD without esophagitis 03/29/2019 History of squamous cell carcinoma of skin 03/31/2019 Right side of nose Hypothyroidism, acquired 03/29/2019 Mixed hyperglyceridemia 03/29/2019 Osteopenia of spine 03/29/2019 PAST SURGICAL HISTORY PAST SURGICAL HISTORY Procedure Laterality Date CATARACT EXTRACTION HX Bilateral 2018 COLONOSCOPY 2015 HYSTERECTOMY partial - age 40 NUCLEAR STRESS TEST (WT<440#) (UNION) 08/09/2013 old records: negative PAST SURGICAL HISTORY OF 1995 breast implants Sulfa (Sulfonamide Antibiotics); Adhesive Tape-Silicones Medications reviewed: Yes FAMILY HISTORY FAMILY HISTORY Problem Relation Age of Onset Heart Failure Mother Diabetes Sister Hyperlipidemia Sister Thyroid Sister Breast Cancer Maternal Grandmother Diabetes Daughter Hyperlipidemia Sister Alzheimer's Disease No Family History Colon Cancer No Family History Prostate Cancer No Family History Ovarian cancer No Family History Uterine Cancer No Family History Coronary Artery Disease No Family History Hypertension No Family History Kidney Disease No Family History Seizures No Family History Stroke No Family History SOCIAL HISTORY: SOCIAL HISTORY Social History Tobacco Use Smoking status: Never Smoker Smokeless tobacco: Never Used Substance Use Topics Alcohol use: Not Currently Drug use: Not Currently Kayley denies regular aerobic exercise. She watches her diet for sodium, low fat and low cholesterol most of the time. List of current specialists seen: Dr. Alexander, Derm: [facility] Planning discussed including patients advanced directive wishes: Yes I am willing to follow Kayley's advanced directives. PHQ-2 / Depression screen Depression Screening 03/29/2019 02/25/2022 PHQ-2 Score 0 0 Depression screening tool completed and reviewed. Based on score and interview, patient is not at risk for depression. Screening tool discussed with patient, and I recommended no further interventionat this time. Functional Ability/Safety Screen 1. Was the patient's timed Up and Go test unsteady or longer than 30 seconds? No 2. Does the patient need help with the phone, transportation, shopping,preparing meals, housework, laundry, medications or managing money? No 3. Does your home have rugs in the hallway, lack of grab bars in the bathroom, lack of handrails onthe stairs or have poor lighting? No Hearing Evaluation: hard of hearing, wearing Aids PHYSICAL EXAM BP 130/70 (BP Site: Left Arm, BP Position: Sitting, BP Cuff Size: Regular Adult) Pulse 72 Ht 154.3 cm (5' 0.75) Wt 50.8 kg (112 lb) BMI 21.34 kg/m Alert and oriented X 3: YES Body mass index is 21.34 kg/m . Visual acuity: sees eye doctor See below ASSESSMENT/PLAN: 86 year old female The following prevention plan was discussed during the office visit and provided to the patient: See below Chief Complaint Patient presents with: Medicare Wellness Exam HPI Kayley Dickinson is a 86 year old female who presents here today for extensive exam. nt wit hx of hyperlipidemia, hypothyroidism, GERD, elevated blood sugar, CAD as well as those reviewed and addressed below. Patient saw Derm earlier today and had two lesions on her face treated with cryo. Has been doing ok. Past medical history, appointments, medications, allergies reviewed. Previous Medical History PAST MEDICAL HISTORY Diagnosis Date 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 rich plaque 03/31/2019 Current use of proton pump inhibitor 07/30/2019 Elevated fasting blood sugar 03/29/2019 GERD without esophagitis 03/29/2019 High cholesterol History of squamous cell carcinoma of skin 03/31/2019 Right side of nose Hypothyroidism, acquired 03/29/2019 Medicare annual wellness visit, subsequent 08/17/2020 Medical B eligibilty date 11/21/2002 Last done: 02/11/2020 Mixed hyperglyceridemia 03/29/2019 Osteopenia of spine 03/29/2019 Previous Surgical History PAST SURGICAL HISTORY Procedure Laterality Date CATARACT EXTRACTION HX Bilateral 2018 COLONOSCOPY 2014 HYSTERECTOMY partial - age 40 MASTECTOMY, SIMPLE, COMPLETE Bilateral 1977 with implants for fibrocystic disease (?) NUCLEAR STRESS TEST (WT<440#) (UNION) 08/09/2013 old records: negative PAST SURGICAL HISTORY OF 1996 breast implants Family History FAMILY HISTORY Problem Relation Age of Onset Heart Failure Mother Diabetes Sister Hyperlipidemia Sister Thyroid Sister Breast Cancer Maternal Grandmother Diabetes Daughter Hyperlipidemia Sister Alzheimer's Disease No Family History Colon Cancer No Family History Prostate Cancer No Family History Ovarian cancer No Family History Uterine Cancer No Family History Coronary Artery Disease No Family History Hypertension No Family History Kidney Disease No Family History Seizures No Family History Stroke No Family History Patient Allergies ALLERGIES Allergen Reactions Sulfa (Sulfonamide * Swelling Adhesive Tape-Silic* Rash Current Medications Current Outpatient Medications on File Prior to Visit Medication Sig levothyroxine (SYNTHROID) 50 mcg tablet Take 1 tablet by mouth once daily. Take on empty stomach. For Thyroid. polyethylene glycol 3350 (MIRALAX, GLYCOLAX) 17 gram/dose powder Use as directed for Miralax / Gatorade Bowel Prep Kit Gatorade Sports Drink Use as directed for Miralax / Gatorade Bowel Prep Kit Bisacodyl (DULCOLAX) 5 mg tab Use as directed for Miralax / Gatorade Bowel Prep Kit docusate sodium (COLACE) 100 mg capsule Take 1 capsule by mouth once daily. ketoconazole (NIZORAL) 2 % cream Apply to affected area once daily. omeprazole (PRILOSEC) 40 mg capsule Take 1 capsule by mouth daily before breakfast. 1/2 hr before meal. pravastatin (PRAVACHOL) 80 mg tablet Take 1 tablet by mouth once daily. FERROUS SULFATE ORAL Take 1 tablet by mouth. CYANOCOBALAMIN, VITAMIN B-12, ORAL Take 1 tablet by mouth. aspirin, enteric coated (ASPIRIN, ENTERIC COATED) 81 mg EC tablet Take 81 mg by mouth. omega-3 acid ethyl esters (LOVAZA) 1 gram capsule Take 1 g by mouth. clobetasol (TEMOVATE) 0.05 % ointment Apply to affected area twice daily as needed. use a small pea-sized amount to vulva as needed for irritation calcium carbonate-vitamin D3 (CALTRATE WITH VITAMIN D3) 600 mg(1,500mg) -800 unit tab Take 1 tabletby mouth twice daily. No current facility-administered medications on file prior to visit. Social History Social History Tobacco Use Smoking status: Never Smoker Smokeless tobacco: Never Used Substance Use Topics Alcohol use: Not Currently Drug use: Not Currently Review of Symptoms REVIEW OF SYSTEMS GENERAL: No weight loss, malaise or fevers HEENT: Negative for frequent or significant headaches, No changes in hearing or vision, no nose bleeds or other nasal problems NECK: Negative for lumps, goiter, pain and significant neck swelling RESPIRATORY: Negative for cough, hemoptysis, wheezing, COPD, dyspnea or shortness of breath CARDIOVASCULAR: Negative for chest pain, leg swelling, hypertension, CHF or palpitations GI: No nausea, vomiting, or diarrhea, No heartburn or reflux symptoms and no blood : No history of dysuria, blood MUSCULOSKELETAL: occasional right hip pain. SKIN: Negative for lesions, rash, and itching PSYCH: Negative for sleep disturbance, mood disorder and recent psychosocial stressors HEMATOLOGY/LYMPHOLOGY: Negative for prolonged bleeding, bruising easily or swollen nodes ENDOCRINE: Negative for cold or heat intolerance, polyuria, polydipsia and goiter NEURO: No history of headaches, syncope, paralysis, seizures or tremors EXAM: BP 130/70 (BP Site: Left Arm, BP Position: Sitting, BP Cuff Size: Regular Adult) Pulse 72 Ht 154.3 cm (5' 0.75) Wt 50.8 kg (112 lb) BMI 21.34 kg/m Last 4 Encounter Wt Readings: Date: Wt: 02/25/2022 50.8 kg (112 lb) 09/14/2021 54 kg (119 lb) 09/06/2021 51.7 kg (114 lb) 08/10/2021 51.7 kg (114 lb) General Appearance: Well appearing, alert, in no acute distress, well-hydrated, well nourished.. Head: Normocephalic, no masses, lesions, tenderness or abnormalities. Eyes: Anicteric sclera. Pupils are equally round and reactive to light. Extraocular movements are intact. . Ears: External ears, TM's normal, canals clear. Neck: Supple, no adenopathy; thyroid symmetric, normal size, no bruits. Lungs: Lungs clear to auscultation. No wheezing, rhonchi, rales.. Heart: RRR without murmur, gallop, or rubs. No ectopy. Abdomen: Normal abdominal exam, Abdomen soft, non-tender. Bowel sounds normal. No masses, organomegaly. Extremities: No deformities, edema, skin discoloration, . Musculoskeletal: Spine range of motion normal. Muscular strength intact, No joint swelling, deformity, or tenderness. Peripheral Pulses: Normal. Neurologic: Gait normal. Reflexes normal and symmetric. Sensation to light touch and crainal nerves2-12 intact.. Health Maintenance List ADVANCE DIRECTIVE DISCUSSION Never done DTAP,TDAP,TD(2 - Td or Tdap) due on 02/02/2022 INFLUENZA(1) due on 03/24/2022 LDL CHOLESTEROL due on 02/11/2023 DIABETES SCREEN due on 02/11/2025 BONE DENSITY Completed SHINGRIX VACCINE Completed COVID-19 VACCINE Completed PNEUMOCOCCAL: 65+ Completed Data reviewed Component Latest Ref Rng & Units 03/15/2021 08/02/2021 09/06/2021 02/11/2022 WBC 3.70 - 11.00 k/uL 7.83 6.85 5.96 RBC 3.90 - 5.20 m/uL 4.69 4.70 4.38 Hemoglobin 11.5 - 15.5 g/dL 14.0 14.0 13.2 Hematocrit 36.0 - 46.0 % 44.9 44.3 41.6 MCV 80.0 - 100.0 fL 95.7 94.3 95.0 MCH 26.0 - 34.0 pg 29.9 29.8 30.1 MCHC 30.5 - 36.0 g/dL 31.2 31.6 31.7 RDW-CV 11.5 - 15.0 % 13.1 13.0 13.2 Platelet Count 150 - 400 k/uL 173 157 142 (L) MPV 9.0 - 12.7 fL 11.1 11.3 12.0 Neut% % 64.9 67.6 66.8 Abs Neut (ANC) 1.45 - 7.50 k/uL 5.08 4.61 3.98 Lymph% % 23.2 20.9 20.6 Abs Lymph 1.00 - 4.00 k/uL 1.82 1.43 1.23 Hamlin% % 8.9 9.2 8.9 Abs Hamlin <0.87 k/uL 0.70 0.63 0.53 Eosin% % 2.6 1.9 2.7 Abs Eosin <0.46 k/uL 0.20 0.13 0.16 Baso% % 0.4 0.4 0.5 Abs Baso <0.11 k/uL 0.03 0.03 0.03 Immature Gran % % 0.5 IMMATURE GRANS (ABS) <0.10 k/uL 0.03 NRBC /100 WBC 0.0 Absolute nRBC <0.01 k/uL <0.01 <0.01 <0.01 DTYPE Auto Nucleated Reds 0 /100 WBC 0.0 0.0 Diff Type Auto Diff Auto Diff Protein, Total 6.3 - 8.0 g/dL 6.8 Albumin 3.9 - 4.9 g/dL 4.4 Calcium 8.5 - 10.2 mg/dL 9.5 Bilirubin, Total 0.2 - 1.3 mg/dL 0.3 Alkaline Phosphatase 34 - 123 U/L 43 AST 13 - 35 U/L 23 ALT 7 - 38 U/L 23 Glucose 74 - 99 mg/dL 95 BUN 7 - 21 mg/dL 18 Creatinine 0.58 - 0.96 mg/dL 0.75 Sodium 136 - 144 mmol/L 139 Potassium 3.7 - 5.1 mmol/L 4.3 Chloride 97 - 105 mmol/L 103 CO2 22 - 30 mmol/L 28 Anion Gap 9 - 18 mmol/L 8 (L) eGFR >=60 mL/min/1.73m 79 Color Yellow Light Yellow Clarity Clear Slightly Cloudy (A) Glucose, Urine Negative Negative Bilirubin, Urine Negative Negative Ketones, Urine Negative Negative Specific Marion, Ur 1.005 - 1.030 1.012 Hemoglobin/Blood,Ur Negative Negative pH, Urine 5.0 - 8.0 6.0 Protein, Urine Negative Negative Urobilinogen Negative Negative Nitrites Negative Negative Leukest Negative Trace (A) WBC, Urine 0-5 /HPF 0-5 /HPF RBC, Urine 0-3 /HPF 0-3 /HPF Epithelial Cells /HPF Few Non-Squamous Epithelial Cells None Seen /HPF Few (A) Total Cholesterol, Nonfasting <200 mg/dL 157 142 Triglycerides, Nonfasting <150 mg/dL 111 71 HDL Cholesterol, Nonfasting >39 mg/dL 39 (L) 41 LDL Cholesterol, Nonfasting <100 mg/dL 96 87 Non HDL Cholesterol, Nonfasting <130 mg/dL 118 101 VLDL Cholesterol, Nonfasting <30 mg/dL 22 14 Total Chol/HDL Ratio, Nonfasting <5.10 mg/dL 4.03 3.46 LDL/HDL Ratio, Nonfasting <2.54 mg/dL 2.46 2.12 Hemoglobin A1C 4.3 - 5.6 % 5.9 (H) 6.0 (H) Estimated Average Glucose mg/dL 123 126 TSH 0.270 - 4.200 mIU/L 1.720 2.180 Vitamin B12 232-1,245 pg/mL 1,398 (H) Magnesium 1.7 - 2.3 mg/dL 2.3 A/P ASSESSMENT/PLAN: 1. Medicare annual wellness visit, subsequent - ICD9: V70.0, ICD10: Z00.00 (primary diagnosis) - Counseled on healthy diet and regular exercise - Calcium intake with supplements or by diet of 1000 mg/day for under 50, 1200- 1500 mg/day for 50+ - Follow up for annual exam in one year 2. Mixed hyperglyceridemia - ICD9: 272.3, ICD10: E78.3 - good control - Encouraged following a low fat, low cholesterol diet. - Discussed the benefits of regular aerobic exercise and weight loss. - Encouraged following a low carbohydrate, healthy oil intake diet. - Continue current therapy. 3. Hypothyroidism, acquired - ICD9: 244.9, ICD10: E03.9 - Instructed patient on importance of taking on an empty stomach either first thing in the morning or at bedtime. - continue current dose of Synthroid 4. Elevated fasting blood sugar - ICD9: 790.21, ICD10: R73.01 - Encouraged life style changes. 5. GERD without esophagitis - ICD9: 530.81, ICD10: K21.9 - Continue treatment with Prilosec 40 mg QD - OMEPRAZOLE 40 MG CAPSULE,DELAYED RELEASE 6. 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 rich plaque - ICD9: 414.00, 414.3, ICD10: I25.10, I25.83 - Clinically stable no changes. 7. Osteopenia of spine - ICD9: 733.90, ICD10: M85.88 - Reviewed the need for Calcium and Vitamin D supplements and weight bearing exercise as tolerated 8. Living will in place - ICD9: V49.89, ICD10: Z78.9 - Advised to bring in copies 9. Advance directive discussed with patient - ICD9: V65.49, ICD10: Z71.89 - As per #8 10. Low serum vitamin B12 - ICD9: 266.2, ICD10: E53.8 - Patient to cut B12 back to 500 mcg a day In 6 months check - VITAMIN B12 BLOOD 11. Thrombocytopenia (HCC) - ICD9: 287.5, ICD10: D69.6 In six months check - CBC + DIFF Signed Prescriptions Disp Refills omeprazole (PRILOSEC) 40 mg capsule 90 capsule 1 Sig: Take 1 capsule by mouth daily before breakfast. 1/2 hr before meal. CHEPE: No pravastatin (PRAVACHOL) 80 mg tablet 90 tablet 1 Sig: Take 1 tablet by mouth once daily. CHEPE: No cyanocobalamin (VITAMIN B-12) 500 mcg tablet Sig: Take 1 tablet by mouth once daily. F/u 6 months routine check B12, A1c, TSH and CBC prior I spent a total of 40 minutes on the date of the service which included preparing to see the patient, [id number] patient care, completing clinical documentation, performing a medically appropriate examination, counseling and educating the patient/family/caregiver and ordering medications, tests, or procedures. Hilton Pena MD [facility] Miscellaneous Notes* Telephone Encounter - Hilda Ching MA - 02/07/2022 12:13 PM EDT Patient has been identified by name and date of : Yes Pending Prescriptions Disp Refills LEVOTHYROXINE 50 MCG TABLET 90 tablet 1 Sig: Take 1 tablet by mouth once daily. Take on empty stomach. For Thyroid. CHEPE: No RX INSTRUCTIONS: Patient aware RX will be sent to pharmacy. No need to notify patient. Hilda Ching MA Sachi: 07/2021 Nov: 02/2022 Last refill: 07/2021 * Telephone Encounter - Jillian Velasco - 02/07/2022 8:06 AM EDT Patient has been identified by name and date of : Yes Pending Prescriptions Disp Refills LEVOTHYROXINE 50 MCG TABLET 90 tablet 1 Sig: Take 1 tablet by mouth once daily. Take on empty stomach. For Thyroid. CHEPE: No RX INSTRUCTIONS: Patient aware RX will be sent to pharmacy. No need to notify patient. Jillian Dave Pss documented in [facility] History of Present illness Narrative* Cecily Charles RN - 10/25/2021 9:10 AM EDT Discharge instructions gone over, follow up discussed. Pt verbalized understanding of discharge instructions, all questions answered. As well as post anesthesia instructions. Pt states has a ride home and responsible adult there. Waiting for doctor to come speak to patient. * Cecily Charles RN - 10/25/2021 8:35 AM EDT Patient admitted to stage 2 from Endo. No distress notes. VSS. Family at bedside. * Monica Lacey RN - 10/25/2021 8:29 AM EDT Abdomen soft with active bowel sounds. * Yudith rCaig RN - 10/21/2021 10:[address] [facility] PRE-ADMISSION TESTING INSTRUCTIONS The Preadmission Testing patient is instructed accordingly using the following criteria (check applicable): ARRIVAL INSTRUCTIONS: [x] Parking the day of Surgery is located in the Main Entrance lot. Upon entering the door, make animmediate right to the surgery cashier receptionist desk [x] Bring photo ID and insurance card [] Bring in a copy of Living will or Durable Power of business attorney papers. [x] Please be sure to arrange for responsible adult to provide transportation to and from the hospital [x] Please arrange for responsible adult to be with you for the 24 hour period post procedure due to having anesthesia GENERAL INSTRUCTIONS: [x] Nothing by mouth after midnight, including gum, candy, mints or water [x] You may brush your teeth, but do not swallow any water [x] Take medications as instructed with 1-2 oz of water [x] Stop herbal supplements and vitamins 5 days prior to procedure [x] Follow preop dosing of blood thinners per physician instructions [] Take 1/2 dose of evening insulin, but no insulin after midnight [] No oral diabetic medications after midnight [] If diabetic and have low blood sugar or feel symptomatic, take 1-2oz apple juice only [] Bring inhalers day of surgery [] Bring C-PAP/ Bi-Pap day of surgery [] Bring urine specimen day of surgery [x] Shower or bath with soap, lather and rinse well, AM of Surgery, no lotion, powders or creams tosurgical site [x] Follow bowel prep as instructed per surgeon [x] No tobacco products within 24 hours of surgery [x] No alcohol or illegal drug use within 24 hours of surgery. [x] Jewelry, body piercing's, eyeglasses, contact lenses and dentures are not permitted into surgery (bring cases) [x] Please do not wear any nail setswana, make up or hair products on the day of surgery [x] You can expect a call the business day prior to procedure to notify you if your arrival time changes [x] If you receive a survey after surgery we would greatly appreciate your comments [] Parent/guardian of a minor must accompany their child and remain on the premises the entire timethey are under our care [] Pediatric patients may bring favorite toy, blanket or comfort item with them [] A caregiver or family member must remain with the patient during their stay if they are mentallyhandicapped, have dementia, disoriented or unable to use a call light or would be a safety concern if left unattended [x] Please notify surgeon if you develop any illness between now and time of surgery (cold, cough, sore throat, fever, nausea, vomiting) or any signs of infections including skin, wounds, and dental. [] The Outpatient Pharmacy is available to fill your prescription here on your day of surgery, ask your preop nurse for details [] Other instructions EDUCATIONAL MATERIALS PROVIDED: [] PAT Preoperative Education Packet/Booklet [] Medication List [] Transfusion bracelet applied with instructions [] Shower with soap, lather and rinse well, and use CHG wipes provided the evening before surgery as instructed [] Incentive spirometer with instructions Have you been tested for COVID No Have you been told you were positive for COVID No Have you had any known exposure to someone that is positive for COVID No Do you have a cough No Do you have shortness of breath No Do you have a sore throat No Are you having chills No Are you having muscle aches. No Please come to the hospital wearing a mask and have your significant other wear a mask as well. Both of you should check your temperature before leaving to come here, if it is 100 or higher please call [phone] for instruction. [facility] Phone: evaluation note* Diagnosis Hemorrhage of rectum and anus documented in this encounter [facility] [place] Phone: evaluation note* Diagnosis Hypothyroidism, acquired Unspecified hypothyroidism [facility]* Diagnosis Medicare annual wellness visit, subsequent- Primary Routine general medical examination at a health care facility Mixed hyperglyceridemia Hyperchylomicronemia Hypothyroidism, acquired Unspecified hypothyroidism Elevated fasting blood sugar Impaired fasting glucose GERD without esophagitis Esophageal reflux 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 rich plaque Osteopenia of spine Living will in place Advance directive discussed with patient Other specified counseling Low serum vitamin B12 Thrombocytopenia (HCC) Thrombocytopenia, unspecified [facility] Suspected COVID-19 virus infection- Primary [facility] Diagnosis COVID-19- Primary [facility] Diagnosis Acute cough- Primary [facility] Diagnosis Hypothyroidism, acquired Unspecified hypothyroidism [facility] Diagnosis Mixed hyperglyceridemia- Primary Hyperchylomicronemia Hypothyroidism, acquired Unspecified hypothyroidism Elevated fasting blood sugar Impaired fasting glucose GERD without esophagitis Esophageal reflux 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 rich plaque Thrombocytopenia (HCC) Thrombocytopenia, unspecified History of 2019 novel coronavirus disease (COVID-19) Medication management Encounter for long-term (current) use of other medications [facility]* Diagnosis Clavicle pain- Primary Disorder of bone and cartilage, unspecified [facility] Diagnosis Cellulitis of skin- Primary Cellulitis and abscess of unspecified site [facility] Diagnosis APPOINTMENT CANCELLED- Primary [facility] Diagnosis Abnormal x-ray- Primary Other nonspecific (abnormal) findings on radiological and other examinations of body structure Pain of left clavicle Abnormal CT scan Other nonspecific (abnormal) findings on radiological and other examinations of body structure Abnormal radionuclide bone scan Nonspecific abnormal results of other specified function study [facility] Diagnosis Pathological fracture of left clavicle, initial encounter- Primary Abnormal x-ray Other nonspecific (abnormal) findings on radiological and other examinations of body structure Pain of left clavicle Abnormal CT scan Other nonspecific (abnormal) findings on radiological and other examinations of body structure Abnormal radionuclide bone scan Nonspecific abnormal results of other specified function study Abnormal findings on diagnostic imaging of other specified body structures [facility] Diagnosis Pathological fracture of left clavicle, initial encounter Pathological fracture of left clavicle, initial encounter Abnormal findings on diagnostic imaging of other specified body structures [facility]* Diagnosis Multiple myeloma not having achieved remission (HCC) Multiple myeloma, without mention of having achieved remission [facility]* Diagnosis Myeloma plasma cell (HCC) Pain of left clavicle Multiple myeloma not having achieved remission (HCC) Multiple myeloma, without mention of having achieved remission [facility] Diagnosis Myeloma plasma cell (HCC)- Primary [facility]* Diagnosis Hypothyroidism, acquired Unspecified hypothyroidism [facility]* Diagnosis Multiple myeloma not having achieved remission (HCC)- Primary Multiple myeloma, without mention of having achieved remission [facility]* Diagnosis Multiple myeloma, remission status unspecified (HCC) Encounter for antineoplastic chemotherapy [facility]* Diagnosis Multiple myeloma, remission status unspecified (HCC)- Primary [facility]* Diagnosis Myeloma plasma cell (HCC)- Primary [facility]* Diagnosis Multiple myeloma, remission status unspecified (HCC)- Primary Chronic subdural hematoma (HCC) Subdural hemorrhage Abnormal finding of diagnostic imaging Other nonspecific (abnormal) findings on radiological and other examinations of body structure [facility]* Diagnosis Encounter for antineoplastic immunotherapy- Primary Multiple myeloma, remission status unspecified (HCC) documented [facility]* Diagnosis Myeloma plasma cell (HCC)- Primary [facility]* Diagnosis Multiple myeloma, remission status unspecified (HCC)- Primary Encounter for antineoplastic immunotherapy [facility]* Diagnosis Encounter for antineoplastic immunotherapy- Primary Multiple myeloma, remission status unspecified (HCC) Multiple myeloma, remission status unspecified (HCC)- Primary [facility]* Diagnosis Encounter for antineoplastic immunotherapy- Primary Multiple myeloma, remission status unspecified (HCC) documented [facility]* Diagnosis Medicare annual wellness visit, subsequent- Primary Routine general medical examination at a health care facility Mixed hyperglyceridemia Hyperchylomicronemia Elevated fasting blood sugar Impaired fasting glucose Hypothyroidism, acquired Unspecified hypothyroidism GERD without esophagitis Esophageal reflux 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 rich plaque Osteopenia of spine Advance directive discussed with patient Other specified counseling [facility]* Diagnosis Multiple myeloma, remission status unspecified (HCC)- Primary Encounter for antineoplastic immunotherapy [facility] Diagnosis Multiple myeloma not having achieved remission (HCC)- Primary Multiple myeloma, without mention of having achieved remission [facility]* Diagnosis Oropharyngeal dysphagia- Primary Dysphagia, oropharyngeal phase Multiple myeloma in remission (HCC) Multiple myeloma in remission Multiple myeloma not having achieved remission (HCC) Multiple myeloma, without mention of having achieved remission [facility] Diagnosis Multiple myeloma, remission status unspecified (HCC)- Primary Encounter for antineoplastic immunotherapy [facility]* Diagnosis Multiple myeloma, remission status unspecified (HCC)- Primary Encounter for antineoplastic chemotherapy [facility]* Diagnosis Epistaxis, recurrent- Primary Epistaxis [facility]* Diagnosis Multiple myeloma, remission status unspecified (HCC)- Primary [facility] Diagnosis Multiple myeloma in remission (HCC)- Primary Multiple myeloma in remission Multiple myeloma, remission status unspecified (HCC) [facility]* Diagnosis Multiple myeloma, remission status unspecified (HCC)- Primary [facility]* Diagnosis Multiple myeloma, remission status unspecified (HCC)- Primary [facility] Diagnosis Multiple myeloma not having achieved remission (HCC) Multiple myeloma, without mention of having achieved remission [facility] Diagnosis Chronic subdural hematoma (HCC) Subdural hemorrhage Abnormal finding of diagnostic imaging Other nonspecific (abnormal) findings on radiological and other examinations of body structure [facility] Diagnosis Multiple myeloma, remission status unspecified (HCC)- Primary [facility] noteNo assessment information availableWKettering Health [facility] Work Phone: Evaluation note* Diagnosis Multiple myeloma not having achieved remission (HCC)- Primary Multiple myeloma, without mention of having achieved remission Decrease in appetite Anorexia [facility]* Diagnosis Multiple myeloma in remission (HCC)- Primary Multiple myeloma in remission Multiple myeloma, remission status unspecified (HCC) [facility]* Diagnosis 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 rich plaque- Primary Mixed hyperglyceridemia Hyperchylomicronemia Hypothyroidism, acquired Unspecified hypothyroidism Elevated fasting blood sugar Impaired fasting glucose Medication management Encounter for long-term (current) use of other medications Platelets decreased (HCC) Thrombocytopenia, unspecified documented in this encounter [facility]* Diagnosis Multiple myeloma, remission status unspecified (HCC) documented in this encounter [facility] note* Diagnosis Multiple myeloma, remission status unspecified (HCC)- Primary documented in this encounter [facility] note* Diagnosis GERD without esophagitis Esophageal reflux documented in this encounter [facility] note* Diagnosis Multiple myeloma, remission status unspecified (HCC)- Primary Encounter for antineoplastic immunotherapy documented in this encounter [facility] note* Diagnosis Multiple myeloma, remission status unspecified (HCC) documented in this encounter [facility] note* Diagnosis Multiple myeloma, remission status unspecified (HCC)- Primary documented in this encounter [facility] note* Diagnosis Multiple myeloma, remission status unspecified (HCC)- Primary Nausea Nausea alone documented in this encounter [facility] note* Diagnosis Multiple myeloma, remission status unspecified (HCC) documented in this encounter [facility] note* Diagnosis Multiple myeloma, remission status unspecified (HCC)- Primary documented in this encounter [facility] note* Diagnosis Multiple myeloma in remission (HCC)- Primary Multiple myeloma in remission Platelets decreased (HCC) Thrombocytopenia, unspecified documented in this encounter [facility] note* Diagnosis Multiple myeloma, remission status unspecified (HCC) documented in this encounter [facility] note* Diagnosis Multiple myeloma, remission status unspecified (HCC) documented in this encounter [facility] note* Diagnosis Multiple myeloma, remission status unspecified (HCC)- Primary documented in this encounter [facility] note* Diagnosis Elevated serum creatinine- Primary Other nonspecific findings on examination of blood documented in this encounter [facility] note* Diagnosis Multiple myeloma, remission status unspecified (HCC) documented in this encounter [facility] note* Diagnosis Multiple myeloma in remission (HCC)- Primary Multiple myeloma in remission documented in this encounter [facility] note* Diagnosis Multiple myeloma, remission status unspecified (HCC) documented in this encounter [facility] note* Diagnosis Multiple myeloma, remission status unspecified (HCC)- Primary [facility]* Diagnosis Multiple myeloma in remission (HCC)- Primary Multiple myeloma in remission [facility]* Diagnosis Multiple myeloma, remission status unspecified (HCC) [facility]* Diagnosis Hypothyroidism, acquired Unspecified hypothyroidism documented [facility]* Diagnosis Multiple myeloma, remission status unspecified (HCC)- Primary Encounter for antineoplastic chemotherapy [facility]* Diagnosis Multiple myeloma in remission (HCC)- Primary Multiple myeloma in remission Hypothyroidism, unspecified type Gastroesophageal reflux disease without esophagitis Esophageal reflux Hyperlipidemia, unspecified hyperlipidemia type documented [facility]* Diagnosis Multiple myeloma, remission status unspecified (HCC) [facility]* Diagnosis Medicare annual wellness visit, subsequent- Primary Routine general medical examination at a health care facility Advance directive discussed with patient Other specified counseling Screening for depression Encounter for screening examination for other mental health and behavioral disorders Living will in place Multiple myeloma, remission status unspecified (HCC) Platelets decreased (HCC) Thrombocytopenia, unspecified Hypothyroidism, acquired Unspecified hypothyroidism Elevated fasting blood sugar Impaired fasting glucose GERD without esophagitis Esophageal reflux Mixed hyperglyceridemia Hyperchylomicronemia 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 rich plaque [facility] Diagnosis Multiple myeloma, remission status unspecified (HCC)- Primary [facility] Diagnosis Multiple myeloma, remission status unspecified (HCC) [facility] Diagnosis Multiple myeloma not having achieved remission (HCC)- Primary Multiple myeloma, without mention of having achieved remission [facility] Diagnosis Multiple myeloma not having achieved remission (HCC) Multiple myeloma, without mention of having achieved remission [facility]* Diagnosis Multiple myeloma in remission (HCC)- Primary Multiple myeloma in remission [facility] Diagnosis Encounter for antineoplastic immunotherapy- Primary Multiple myeloma, remission status unspecified (HCC) [facility] Diagnosis Multiple myeloma not having achieved remission (HCC)- Primary Multiple myeloma, without mention of having achieved remission [facility] Diagnosis Multiple myeloma, remission status unspecified (HCC)- Primary [facility]* Diagnosis GERD without esophagitis Esophageal reflux [facility]* Diagnosis Multiple myeloma, remission status unspecified (HCC) [facility]* Diagnosis Multiple myeloma, remission status unspecified (HCC)- Primary [facility]* Diagnosis Multiple myeloma, remission status unspecified (HCC) Encounter for antineoplastic chemotherapy documented in this encounter [facility] note* Diagnosis Multiple myeloma in remission (HCC) Multiple myeloma in remission documented in this encounter [facility] note* Diagnosis Multiple myeloma in remission (HCC)- Primary Multiple myeloma in remission Multiple myeloma in remission (HCC) Multiple myeloma in remission documented in this encounter [facility] note* Diagnosis Multiple myeloma, remission status unspecified (HCC) documented in this encounter [facility] note* Diagnosis Multiple myeloma not having achieved remission (HCC)- Primary Multiple myeloma, without mention of having achieved remission documented in this encounter [facility] note* Diagnosis Multiple myeloma, remission status unspecified (HCC)- Primary Encounter for antineoplastic immunotherapy [facility]* Diagnosis Multiple myeloma, remission status unspecified (HCC)- Primary [facility]* Diagnosis Pneumonia of right lower lobe due to infectious organism [facility]* Diagnosis Multiple myeloma, remission status unspecified (HCC)- Primary Diarrhea, unspecified type Pneumonia of right lower lobe due to infectious organism Pneumonia of right lower lobe due to infectious organism documented in this encounter [facility] note* Diagnosis Pneumonia of right lower lobe due to infectious organism- Primary [facility]* Diagnosis Pneumonia of right lower lobe due to infectious organism [facility]* Diagnosis Immunocompromised (HCC)- Primary Unspecified immunity deficiency Multiple myeloma in remission (HCC) Multiple myeloma in remission [facility]* Diagnosis Multiple myeloma, remission status unspecified (HCC) [facility]* Diagnosis Multiple myeloma, remission status unspecified (HCC) [facility]* Diagnosis Multiple myeloma not having achieved remission (HCC)- Primary Multiple myeloma, without mention of having achieved remission [facility] Multiple myeloma, remission status unspecified (HCC)- Primary [facility]* Diagnosis Multiple myeloma, remission status unspecified (HCC)- Primary [facility] Diagnosis Multiple myeloma in remission (HCC)- Primary Multiple myeloma in remission [facility]* Diagnosis 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 rich plaque- Primary Mixed hyperglyceridemia Hyperchylomicronemia GERD without esophagitis Esophageal reflux Hypothyroidism, acquired Unspecified hypothyroidism Elevated fasting blood sugar Impaired fasting glucose Multiple myeloma, remission status unspecified (HCC) Living will in place Medication management Encounter for long-term (current) use of other medications [facility] Diagnosis Multiple myeloma not having achieved remission (HCC)- Primary Multiple myeloma, without mention of having achieved remission [facility] Diagnosis Multiple myeloma in remission (HCC)- Primary Multiple myeloma in remission [facility]* Diagnosis Multiple myeloma, remission status unspecified (HCC) [facility]* Diagnosis Multiple myeloma, remission status unspecified (HCC)- Primary [facility]* Diagnosis Multiple myeloma in remission (HCC)- Primary Multiple myeloma in remission [facility]* Diagnosis Multiple myeloma, remission status unspecified (HCC)- Primary Multiple myeloma in remission (HCC) Multiple myeloma in remission [facility]* Diagnosis Multiple myeloma in remission (HCC)- Primary Multiple myeloma in remission [facility]* Diagnosis Hypothyroidism, acquired Unspecified hypothyroidism GERD without esophagitis Esophageal reflux [facility]* Diagnosis Multiple myeloma in remission (HCC)- Primary Multiple myeloma in remission Monoclonal B-cell lymphocytosis Lymphocytosis (symptomatic) Encounter for antineoplastic chemotherapy Immunocompromised (HCC) Unspecified immunity deficiency Multiple myeloma in remission (HCC) Multiple myeloma in remission [facility]* Diagnosis Multiple myeloma, remission status unspecified (HCC)- Primary [facility]* Diagnosis Multiple myeloma in remission (HCC) Multiple myeloma in remission [facility] Diagnosis Multiple myeloma, remission status unspecified (HCC)- Primary [facility]* Diagnosis Multiple myeloma, remission status unspecified (HCC)- Primary Multiple myeloma in remission (HCC) Multiple myeloma in remission [facility]* Diagnosis Multiple myeloma in remission (HCC)- Primary Multiple myeloma in remission Pain of right hip Right leg swelling Swelling of limb [facility]* Diagnosis Right leg swelling Swelling of limb Multiple myeloma in remission (HCC) Multiple myeloma in remission [facility]* Diagnosis Multiple myeloma, remission status unspecified (HCC)- Primary [facility]* Diagnosis Multiple myeloma, remission status unspecified (HCC)- Primary documented in this encounter [facility] note* Diagnosis Multiple myeloma, remission status unspecified (HCC) [facility]* Diagnosis Multiple myeloma, remission status unspecified (HCC)- Primary documented in this encounter [facility] note* Diagnosis Medicare annual wellness visit, subsequent- Primary Routine general medical examination at a [facility] care facility Advance directive discussed with patient Other specified counseling Screening for depression Encounter for screening examination for other mental health and behavioral disorders 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 rich plaque Mixed hyperglyceridemia Hyperchylomicronemia Hypothyroidism, acquired Unspecified hypothyroidism Elevated fasting blood sugar Impaired fasting glucose GERD without esophagitis Esophageal reflux Elevated blood pressure reading without diagnosis of hypertension Multiple myeloma, remission status unspecified (HCC) Synovial cyst of right knee documented in this encounter [facility] note* Diagnosis Multiple myeloma, remission status unspecified (HCC)- Primary Multiple myeloma in remission (HCC) Multiple myeloma in remission documented in this encounter [facility] note* Diagnosis Multiple myeloma, remission status unspecified (HCC)- Primary documented in this encounter [facility] note* Diagnosis Multiple myeloma, remission status unspecified (HCC)- Primary documented in this encounter [facility] note* Diagnosis Gandhi's cyst of knee, right Immunocompromised (HCC) Unspecified immunity deficiency Multiple myeloma in remission (HCC) [facility] myeloma in remission [facility] Instructions* Jenn Simmons MD - 10/25/2021 [facility] AMBUL[facility] PROCEDURE DISCHARGE INSTRUCTIONS You may be drowsy or lightheaded after receiving sedation or anesthesia. A responsible person should be with you for the next 24 hours. Please follow the instructions checked below: DIET INSTRUCTIONS: [x]Start with light diet and progress to your normal diet as you feel like eating. If you experience nausea or repeated episodes of vomiting which persist beyond 12-24 hours, notify your doctor. []Other ACTIVITY INSTRUCTIONS: [x]Rest today. Increase activity as tolerated []No heavy lifting or strenuous activity [x]No driving for today []Other MEDICATION INSTRUCTIONS: [x]Prescriptions sent with you. Use as directed. When taking pain medications, you may experience dizziness or drowsiness. Do not drink alcohol or drive when taking these medications. [x]Continue preop medications Post-procedure Care If any tissue was removed: It will be sent to a lab to be examined. It may take 1-2 weeks for results. The doctor will usuallygive an initial report after the scope is removed. Other tests may be recommended. A small amount of bleeding may occur during the first few days after the procedure. When you return home after the procedure, be sure to follow your doctor's instructions, which may include: Resume medicines as instructed by your doctor. Resume normal diet, unless directed otherwise by your doctor. The sedative will make you drowsy. Avoid driving, operating machinery, or making important decisions for the rest of the day. Rest for the remainder of the day. After arriving home, contact your doctor if any of the following occurs: Bleeding from your rectum, notify your doctor if you pass a teaspoonful of blood or more. Black, tarry stools Severe abdominal pain Hard, swollen abdomen Signs of infection, including fever or chills Inability to pass gas or stool Coughing, shortness of breath, chest pain, severe nausea or vomiting In case of an emergency, CALL 911 . FOLLOW-UP CARE: [x]Call the office at [phone] for follow-up appointment in 1 week documented in this [facility] Phone: Hospital Discharge instructions Additional Instructions Plenty of fluids and rest. Increase diet slowly as tolerated. Zofran as needed for nausea you may swallow it or let it dissolve under your tongue. Follow-up with your doctor if not improving return to emergency department if worse or unable to keep fluids down.[facility] Work Phone: Reason for referral (narrative)* Diagnostic Procedure Only (Urgent) - Closed Specialty Diagnoses / Procedures Referred By Etienne t Referred To Contact XR IMAGING Diagnoses Clavicle pain Procedures XR CLAVICLE 2V LEFT RADEX CLAVICLE COMPLETE Nico Holloway APRN.[employer] [address] [place] [address] Xr Imaging Referral ID Status Reason Start Date Expiration Date V isits Requested Visits Authorized [id number] Closed Auto-Generate d Referral 12/26/2022 01/25/2024 1 1 [facility]No reason for referral information availableWKettering [facility] Work Phone: Reason for visit Narrative* Auth/Cert Specialty Diagnoses / Procedures Referred By Etienne scott Referred To Contact Diagnoses Change in bowel habit CHANGE IN BOWEL HABITS Procedures WI COLONOSCOPY FLX DX W/COLLJ SPEC WHEN PFRMD WI COLONOSCOPY W/BIOPSY SINGLE/MULTIPLE WI COLSC FLX W/RMVL OF TUMOR POLYP LESION SNARE TQ COLONOSCOPY DIAGNOSTIC ++LATEX ALLERGY++ Jenn Simmons MD [address] [facility] [address] [place] [address] [facility] [address] [place] [address] Referral ID Status Reason Start Date Expiration Date Visits Re quested Visits Authorized [id number] 1 1 [facility] Work Phone: reason for visit Narrative* Diagnostic Procedure Only (Urgent) - Closed Specialty Diagnoses / Procedures Referred By Etienne t Referred To Contact XR IMAGING Diagnoses Clavicle pain Procedures XR CLAVICLE 2V LEFT RADEX CLAVICLE COMPLETE Nico Holloway APRN.[employer] [address] [place] [address] [place] [id number] Referral ID Status Reason Start Date Expiration Date V isits Requested Visits Authorized [id number] Closed Auto-Generate d Referral 12/26/2022 01/25/2024 1 1 [facility] for visit Narrative* Cooks Prior Authorization (Routine) - Authorized Specialty Diagnoses / Procedures Referred By Etienne scott Referred To Contact Diagnoses Multiple myeloma, remission status unspecified (HCC) Procedures INJ, DARATUMUMAB, HYALURONIDASE 10 MG Jaime Beatty MD [address] [place] [address] Phone: tel: fax: Hematology/Oncology [address] [place] [address] Phone: tel: Referral ID Status Reason Start Date Expiration Date V isits Requested Visits Authorized [id number] Authorized 02/13/2023 07/23/2023 99 99 [facility] Summary Purpose Family History No Family History Records FoundNo Family History Records FoundNo Family History Records FoundNo Family History Records FoundNo Family History Records FoundNo Family History Records FoundNo Family History Records FoundNo Family History Records Found Advance Directives No Advanced Directives Records FoundDocuments on File Type Date Recorded Patient Cash On Delivery Clerk Expl anation ACP-Advance Directive ACP-Power of Roll Coverer Latest Code Status on File Code Status Date Activated Date Inactivated Comments Full Code 10/25/2021 7:02 AM Full Code 12/23/2014 7:40 AM 12/24/2014 3:17 AM Full Code 08/30/2013 7:18 AM 08/31/2013 3:01 AM Advance Directive Response Recorded Date/ Time Living Will Yes August 16 7:57pm Power of Roll Coverer Yes August 16, 2023 7:57pm Name of Medical Power of Roll Coverer maxwell wagnerband August 16, 2023 7:57pm Advance Directive Response Recorded Date/ Time Living Will Yes August 16 8:57pm Power of Roll Coverer Yes August 16, 2023 8:57pm Name of Medical Power of Roll Coverer maxwell coats usband August 16, 2023 8:57pm Advance Directive Response Recorded Date/ Time Do you have a Healthcare Power of Roll Coverer? Yes November 26, 2024 8:53pm Health Concerns Infection Onset Date Last Indicated Resolved Time COVID-19 Confirmed 03/17/2022 03/17/2022 Reason for Referral Specialty Diagnoses / Procedures Referred By Contac t Referred To Contact Orthopedics Diagnoses Abnormal x-ray Pain of left clavicle Abnormal CT scan Abnormal radionuclide bone scan Procedures CONSULT TO ORTHOPAEDICS OFFICE/OUTPATIENT [facility] 60-74 MINUTES Hilton Pena MD [address] [place] [address] Referral ID Status Reason Start Date Expiration Date Visits Requested Visits Authorized [id number] Authorized PCP Requested Referral 01/06/2023 01/06/2024 1 1 Specialty Diagnoses / Procedures Referred By Contac t Referred To Contact CT IMAGING Diagnoses Pathological fracture of left clavicle, initial encounter Procedures CT ABD/PEL W IVCON CT ABD & PELVIS W/CONTRAST Alex Anaya MD [address] [place] [address] Ct Imaging Referral ID Status Reason Start Date Expiration Date Visits Requested Visits Authorized [id number] Authorized Auto-Generat ed Referral 01/17/2023 02/16/2024 1 1 Specialty Diagnoses / Procedures Referred By Contac t Referred To Contact CT IMAGING Diagnoses Pathological fracture of left clavicle, initial encounter Procedures CT CHEST W IVCON DIAGNOSTIC COMPUTED TOMOGRAPHY THORAX W/CONTRAST Alex Anaya MD [address] [facility] [place] [place] [address] Ct Imaging Referral ID Status Reason Start Date Expiration Date Visits Requested Visits Authorized [id number] Authorized Auto-Generat ed Referral 01/17/2023 02/16/2024 1 1 Referral ID Status Reason Start Date Expiration Date V isits Requested Visits Authorized [id number] Closed Auto-Generate d Referral 01/17/2023 02/16/2024 1 1 Referral ID Status Reason Start Date Expiration Date V isits Requested Visits Authorized [id number] Closed Auto-Generate d Referral 01/17/2023 02/16/2024 1 1 Specialty Diagnoses / Procedures Referred By Contac t Referred To Contact Neurosurgery Diagnoses Chronic subdural hematoma (HCC) Abnormal finding of diagnostic imaging Procedures CONSULT TO NEUROSURGERY OFFICE/OUTPATIENT [facility] MDM 60-74 MINUTES Alvin Balderas, NABILA.[employer] [address] [place] [address] Referral ID Status Reason Start Date Expiration Date Visits Requested Visits Authorized [id number] Authorized PCP Requested Referral 03/03/2023 02/24/2024 1 1 Specialty Diagnoses / Procedures Referred By Contac t Referred To Contact CT IMAGING Diagnoses Chronic subdural hematoma (HCC) Abnormal finding of diagnostic imaging Procedures CT BRAIN WO IVCON CT HEAD/BRAIN W/O CONTRAST MATERIAL Alvin Balderas, DRAGGER.[employer] [id number] Imaging Referral ID Status Reason Start Date Expiration Date Visits Requested Visits Authorized [id number] Authorized Auto-Generat ed Referral 02/27/2023 03/25/2024 1 1 Specialty Diagnoses / Procedures Referred By Humbertoac t Referred To Contact Ent - Otolaryngology Diagnoses Oropharyngeal dysphagia Procedures CONSULT TO ENT OFFICE/OUTPATIENT [facility] HIGH MDM 60-74 MINUTES Jaime Beatty MD [address] [place] [address] Referral ID Status Reason Start Date Expiration Date Visits Requested Visits Authorized [id number] Authorized PCP Requested Referral 04/07/2023 03/30/2024 1 1 Specialty Diagnoses / Procedures Referred By Humbertoac t Referred To Contact Ent - Otolaryngology Diagnoses Epistaxis, recurrent Procedures CONSULT TO ENT Jaime Beatty MD [address] [place] [address] Referral ID Status Reason Start Date Expiration Date Visits Requested Visits Authorized [id number] Ref Not Required PCP Requested Referral 04/26/2023 04/25/2024 1 1 Specialty Diagnoses / Procedures Referred By Humbertoac t Referred To Contact MR IMAGING Diagnoses Multiple myeloma not having achieved remission (HCC) Procedures MRI LIVER WO/W IVCON MRI ABDOMEN W/O & W/CONTRAST MATERIAL Jaime Beatty MD [address] [place] [address] Mr Imaging [id number] Referral ID Status Reason Start Date Expiration Date V isits Requested Visits Authorized [id number] Closed Auto-Generate d Referral 02/27/2023 03/14/2024 1 1 Specialty Diagnoses / Procedures Referred By Etienne t Referred To Contact CT IMAGING Diagnoses Chronic subdural hematoma (HCC) Abnormal finding of diagnostic imaging Procedures CT BRAIN WO IVCON CT HEAD/BRAIN W/O CONTRAST MATERIAL Alvin Balderas APRN.[employer] [address] [place] [address] [place] [id number] Referral ID Status Reason Start Date Expiration Date V isits Requested Visits Authorized [id number] Closed Auto-Generate d Referral 02/27/2023 03/25/2024 1 1 Medications Administered Section Inactive Administered Medications - up to 3 most recent administrations Medication Order MAR Action Action Date Dose Rate Site acetaminophen 1,000 mg tab(s) (TYLENOL) 1,000 mg, ORAL, ONCE, 1 dose, On Dominga 02/23/23 at 0930, No more than 4000 mg of acetaminophen should be given per day (FROM ALL SOURCES), If ordered PRN for pain, patient/guardian may elect to receive this medication for higher pain levels INSTEAD of the opioid, if preferred: N/A Given 02/23/2023 10:02 AM EDT 1,000 mg daratumumab 1,800 mg - hyaluronidase-fihj 30,000 units 1,800 mg injection (DARZALEX FASPRO) 1,800 mg, SUBCUTANEOUS, ONCE, 1 dose, On Dominga 02/23/23 at 0930, ++FOR SUBCUTANEOUS ADMINISTRATION ONLY++ EXP: (12 HR) Inject subcutaneously into subcutaneous tissue on the abdomen approximately 3 inches to the right or left of the navel over 3 to 5 minutes. Given 02/23/2023 10:40 AM EDT 1,800 mg Abdomen, LLQ dexAMETHasone 20 mg in 0.9% NaCl 50 mL (DECADRON) 20 mg, INTRAVENOUS, Administer over 15 Minutes, ONCE, 1 dose, On Dominga 02/23/23 at 0930, Give prior to chemotherapy. Refrigerate. New Bag/Syringe/Bottl e 02/23/2023 10:09 AM EDT 20 mg diphenhydrAMINE 50 mg injection (BENADRYL) 50 mg, INTRAVENOUS, ONCE, 1 dose, On Dominga 02/23/23 at 0930, Give prior to chemotherapy. Given 02/23/2023 10:06 AM EDT 50 mg famotidine 20 mg injection (PEPCID) 20 mg, INTRAVENOUS, ONCE, 1 dose, On Mon02/23/23 at 0930, Give prior to chemotherapy. REFRIGERATE Given 02/23/2023 10:04 AM EDT 20 mg Inactive Administered Medications - up to 3 most recent administrations Medication Order MAR Action Action Date Dose Rate Site acetaminophen 1,000 mg tab(s) (TYLENOL) 1,000 mg, ORAL, ONCE, 1 dose, On Mon03/03/23 at 1500, No more than 4000 mg of acetaminophen should be given per day (FROM ALL SOURCES), If ordered PRN for pain, patient/guardian may elect to receive this medication for higher pain levels INSTEAD of the opioid, if preferred: N/A Given 03/03/2023 3:40 PM EDT 1,000 mg daratumumab 1,800 mg - hyaluronidase-fihj 30,000 units 1,800 mg injection (DARZALEX FASPRO) 1,800 mg, SUBCUTANEOUS, ONCE, 1 dose, On Mon03/03/23 at 1500, ++FOR SUBCUTANEOUS ADMINISTRATION ONLY++ EXP: (12 HR) Inject subcutaneously into subcutaneous tissue on the abdomen approximately 3 inches to the right or left of the navel over 3 to 5 minutes. Given 03/03/2023 4:39 PM EDT 1,800 mg Abdomen, RLQ dexAMETHasone 20 mg in 0.9% NaCl 50 mL (DECADRON) 20 mg, INTRAVENOUS, Administer over 15 Minutes, ONCE, 1 dose, On Mon03/03/23 at 1500, Give prior to chemotherapy. Refrigerate. New Bag/Syringe/Bottl e 03/03/2023 3:41 PM EDT 20 mg diphenhydrAMINE 50 mg injection (BENADRYL) 50 mg, INTRAVENOUS, ONCE, 1 dose, On Mon03/03/23 at 1500, Give prior to chemotherapy. Given 03/03/2023 3:45 PM EDT 50 mg famotidine 20 mg injection (PEPCID) 20 mg, INTRAVENOUS, ONCE, 1 dose, On Mon03/03/23 at 1500, Give prior to chemotherapy. REFRIGERATE Given 03/03/2023 3:47 PM EDT 20 mg Inactive Administered Medications - up to 3 most recent administrations Medication Order MAR Action Action Date Dose Rate Site acetaminophen 1,000 mg tab(s) (TYLENOL) 1,000 mg, ORAL, ONCE, 1 dose, On Mon03/09/23 at 1430, No more than 4000 mg of acetaminophen should be given per day (FROM ALL SOURCES), If ordered PRN for pain, patient/guardian may elect to receive this medication for higher pain levels INSTEAD of the opioid, if preferred: N/A Given 03/09/2023 2:59 PM EDT 1,000 mg daratumumab 1,800 mg - hyaluronidase-fihj 30,000 units 1,800 mg injection (DARZALEX FASPRO) 1,800 mg, SUBCUTANEOUS, ONCE, 1 dose, On Mon03/09/23 at 1430, ++FOR SUBCUTANEOUS ADMINISTRATION ONLY++ EXP: (12 HR) Inject subcutaneously into subcutaneous tissue on the abdomen approximately 3 inches to the right or left of the navel over 3 to 5 minutes. Given 03/09/2023 3:45 PM EDT 1,800 mg Abdomen, LLQ dexAMETHasone 20 mg in NaCl 0.9% 50 mL (DECADRON) 20 mg, INTRAVENOUS, Administer over 15 Minutes, ONCE, 1 dose, On Mon03/09/23 at 1430, Give prior to chemotherapy. Refrigerate. New Bag/Syringe/Bottl e 03/09/2023 2:57 PM EDT 20 mg diphenhydrAMINE 50 mg injection (BENADRYL) 50 mg, INTRAVENOUS, ONCE, 1 dose, On Mon03/09/23 at 1430, Give prior to chemotherapy. Given 03/09/2023 2:56 PM EDT 50 mg famotidine 20 mg injection (PEPCID) 20 mg, INTRAVENOUS, ONCE, 1 dose, On Mon03/09/23 at 1430, Give prior to chemotherapy. REFRIGERATE Given 03/09/2023 2:55 PM EDT 20 mg Inactive Administered Medications - up to 3 most recent administrations Medication Order MAR Action Action Date Dose Rate Site acetaminophen 1,000 mg tab(s) (TYLENOL) 1,000 mg, ORAL, ONCE, 1 dose, On Mon03/17/23 at 1430, No more than 4000 mg of acetaminophen should be given per day (FROM ALL SOURCES), If ordered PRN for pain, patient/guardian may elect to receive this medication for higher pain levels INSTEAD of the opioid, if preferred: N/A Given 03/17/2023 2:18 PM EDT 1,000 mg daratumumab 1,800 mg - hyaluronidase-fihj 30,000 units 1,800 mg injection (DARZALEX FASPRO) 1,800 mg, SUBCUTANEOUS, ONCE, 1 dose, On Mon03/17/23 at 1430, ++FOR SUBCUTANEOUS ADMINISTRATION ONLY++ EXP: (12 HR) Inject subcutaneously into subcutaneous tissue on the abdomen approximately 3 inches to the right or left of the navel over 3 to 5 minutes. Given 03/17/2023 2:47 PM EDT 1,800 mg Abdomen, RLQ dexAMETHasone 20 mg tab(s) (DECADRON) 20 mg, ORAL, ONCE, 1 dose, On Mon03/17/23 at 1430 Given 03/17/2023 2:17 PM EDT 20 mg diphenhydrAMINE 50 mg (BENADRYL) 50 mg, ORAL, ONCE, 1 dose, On Mon03/17/23 at 1430 Given 03/17/2023 2:17 PM EDT 50 mg famotidine 20 mg tab(s) (PEPCID) 20 mg, ORAL, ONCE, 1 dose, On Mon03/17/23 at 1430 Given 03/17/2023 2:17 PM EDT 20 mg Inactive Administered Medications - up to 3 most recent administrations Medication Order MAR Action Action Date Dose Rate Site acetaminophen 1,000 mg tab(s) (TYLENOL) 1,000 mg, ORAL, ONCE, 1 dose, On Dominga 03/30/23 at 1330, No more than 4000 mg of acetaminophen should be given per day (FROM ALL SOURCES), If ordered PRN for pain, patient/guardian may elect to receive this medication for higher pain levels INSTEAD of the opioid, if preferred: N/A Given 03/30/2023 1:55 PM EDT 1,000 mg daratumumab 1,800 mg - hyaluronidase-fihj 30,000 units 1,800 mg injection (DARZALEX FASPRO) 1,800 mg, SUBCUTANEOUS, ONCE, 1 dose, On Dominga 9/7/23 at 1330, ++FOR SUBCUTANEOUS ADMINISTRATION ONLY++ EXP: (12 HR) Inject subcutaneously into subcutaneous tissue on the abdomen approximately 3 inches to the right or left of the navel over 3 to 5 minutes. Given 03/30/2023 2:37 PM EDT 1,800 mg Abdomen, LLQ dexAMETHasone 20 mg tab(s) (DECADRON) 20 mg, ORAL, ONCE, 1 dose, On Mon03/30/23 at 1330 Given 03/30/2023 1:57 PM EDT 20 mg diphenhydrAMINE 50 mg (BENADRYL) 50 mg, ORAL, ONCE, 1 dose, On Mon03/30/23 at 1330 Given 03/30/2023 1:54 PM EDT 50 mg famotidine 20 mg tab(s) (PEPCID) 20 mg, ORAL, ONCE, 1 dose, On Mon03/30/23 at 1330 Given 03/30/2023 1:56 PM EDT 20 mg Inactive Administered Medications - up to 3 most recent administrations Medication Order MAR Action Action Date Dose Rate Site acetaminophen 1,000 mg tab(s) (TYLENOL) 1,000 mg, ORAL, ONCE, 1 dose, On Mon04/07/23 at 1400, No more than 4000 mg of acetaminophen should be given per day (FROM ALL SOURCES), If ordered PRN for pain, patient/guardian may elect to receive this medication for higher pain levels INSTEAD of the opioid, if preferred: N/A Given 04/07/2023 3:00 PM EDT 1,000 mg daratumumab 1,800 mg - hyaluronidase-fihj 30,000 units 1,800 mg injection (DARZALEX FASPRO) 1,800 mg, SUBCUTANEOUS, ONCE, 1 dose, On Mon04/07/23 at 1400, ++FOR SUBCUTANEOUS ADMINISTRATION ONLY++ EXP: (12 HR) Inject subcutaneously into subcutaneous tissue on the abdomen approximately 3 inches to the right or left of the navel over 3 to 5 minutes. Given 04/07/2023 3:20 PM EDT 1,800 mg Abdomen, RLQ dexAMETHasone 20 mg tab(s) (DECADRON) 20 mg, ORAL, ONCE, 1 dose, On Mon04/07/23 at 1400 Given 04/07/2023 3:00 PM EDT 20 mg diphenhydrAMINE 50 mg (BENADRYL) 50 mg, ORAL, ONCE, 1 dose, On Mon04/07/23 at 1400 Given 04/07/2023 3:00 PM EDT 50 mg famotidine 20 mg tab(s) (PEPCID) 20 mg, ORAL, ONCE, 1 dose, On Mon04/07/23 at 1400 Given 04/07/2023 3:00 PM EDT 20 mg Inactive Administered Medications - up to 3 most recent administrations Medication Order MAR Action Action Date Dose Rate Site acetaminophen 1,000 mg tab(s) (TYLENOL) 1,000 mg, ORAL, ONCE, 1 dose, On Mon04/21/23 at 1400, No more than 4000 mg of acetaminophen should be given per day (FROM ALL SOURCES), If ordered PRN for pain, patient/guardian may elect to receive this medication for higher pain levels INSTEAD of the opioid, if preferred: N/A Given 04/21/2023 2:30 PM EDT 1,000 mg daratumumab 1,800 mg - hyaluronidase-fihj 30,000 units 1,800 mg injection (DARZALEX FASPRO) 1,800 mg, SUBCUTANEOUS, ONCE, 1 dose, On Mon04/21/23 at 1400, ++FOR SUBCUTANEOUS ADMINISTRATION ONLY++ EXP: (12 HR) Inject subcutaneously into subcutaneous tissue on the abdomen approximately 3 inches to the right or left of the navel over 3 to 5 minutes. Given 04/21/2023 3:00 PM EDT 1,800 mg Abdomen, RLQ dexAMETHasone 20 mg tab(s) (DECADRON) 20 mg, ORAL, ONCE, 1 dose, On Mon04/21/23 at 1400 Given 04/21/2023 2:30 PM EDT 20 mg diphenhydrAMINE 50 mg (BENADRYL) 50 mg, ORAL, ONCE, 1 dose, On Mon04/21/23 at 1400 Given 04/21/2023 2:30 PM EDT 50 mg famotidine 20 mg tab(s) (PEPCID) 20 mg, ORAL, ONCE, 1 dose, On Mon04/21/23 at 1400 Given 04/21/2023 2:30 PM EDT 20 mg zoledronic acid 3.3 mg in NaCl 0.9% 100 mL (ZOMETA) 3.3 mg, INTRAVENOUS, Administer over 15 Minutes, ONCE, 1 dose, On Mon04/21/23 at 1430, Hazardous Potential Reproductive Risk Drug: Use appropriate PPE. Refrigerate. New Bag/Syringe/Bottl e 04/21/2023 2:55 PM EDT 3.3 mg Inactive Administered Medications - up to 3 most recent administrations Medication Order MAR Action Action Date Dose Rate Site acetaminophen 1,000 mg tab(s) (TYLENOL) 1,000 mg, ORAL, ONCE, 1 dose, On Mon05/05/23 at 1430, No more than 4000 mg of acetaminophen should be given per day (FROM ALL SOURCES), If ordered PRN for pain, patient/guardian may elect to receive this medication for higher pain levels INSTEAD of the opioid, if preferred: N/A Given 05/05/2023 2:42 PM EDT 1,000 mg daratumumab 1,800 mg - hyaluronidase-fihj 30,000 units 1,800 mg injection (DARZALEX FASPRO) 1,800 mg, SUBCUTANEOUS, ONCE, 1 dose, On Mon05/05/23 at 1430, ++FOR SUBCUTANEOUS ADMINISTRATION ONLY++ EXP: (12 HR) Inject subcutaneously into subcutaneous tissue on the abdomen approximately 3 inches to the right or left of the navel over 3 to 5 minutes. Given 05/05/2023 3:27 PM EDT 1,800 mg Abdomen, LLQ dexAMETHasone 20 mg tab(s) (DECADRON) 20 mg, ORAL, ONCE, 1 dose, On Mon05/05/23 at 1430 Given 05/05/2023 2:42 PM EDT 20 mg diphenhydrAMINE 50 mg (BENADRYL) 50 mg, ORAL, ONCE, 1 dose, On Mon05/05/23 at 1430 Given 05/05/2023 2:42 PM EDT 50 mg famotidine 20 mg tab(s) (PEPCID) 20 mg, ORAL, ONCE, 1 dose, On Mon05/05/23 at 1430 Given 05/05/2023 2:42 PM EDT 20 mg Inactive Administered Medications - up to 3 most recent administrations Medication Order MAR Action Action Date Dose Rate Site acetaminophen 1,000 mg tab(s) (TYLENOL) 1,000 mg, ORAL, ONCE, 1 dose, On Mon05/19/23 at 1330, No more than 4000 mg of acetaminophen should be given per day (FROM ALL SOURCES), If ordered PRN for pain, patient/guardian may elect to receive this medication for higher pain levels INSTEAD of the opioid, if preferred: N/A Given 05/19/2023 1:48 PM EDT 1,000 mg daratumumab 1,800 mg - hyaluronidase-fihj 30,000 units 1,800 mg injection (DARZALEX FASPRO) 1,800 mg, SUBCUTANEOUS, ONCE, 1 dose, On Mon05/19/23 at 1330, ++FOR SUBCUTANEOUS ADMINISTRATION ONLY++ EXP: (12 HR) Inject subcutaneously into subcutaneous tissue on the abdomen approximately 3 inches to the right or left of the navel over 3 to 5 minutes. Given 05/19/2023 2:44 PM EDT 1,800 mg Abdomen, LLQ dexAMETHasone 20 mg tab(s) (DECADRON) 20 mg, ORAL, ONCE, 1 dose, On Mon05/19/23 at 1330 Given 05/19/2023 1:48 PM EDT 20 mg diphenhydrAMINE 50 mg (BENADRYL) 50 mg, ORAL, ONCE, 1 dose, On Mon05/19/23 at 1330 Given 05/19/2023 1:48 PM EDT 50 mg famotidine 20 mg tab(s) (PEPCID) 20 mg, ORAL, ONCE, 1 dose, On Mon05/19/23 at 1330 Given 05/19/2023 1:48 PM EDT 20 mg zoledronic acid 3.3 mg in NaCl 0.9% 100 mL (ZOMETA) 3.3 mg, INTRAVENOUS, Administer over 15 Minutes, ONCE, 1 dose, On Mon05/19/23 at 1430, Hazardous Potential Reproductive Risk Drug: Use appropriate PPE. Refrigerate. New Bag/Syringe/Bottl e 05/19/2023 2:41 PM EDT 3.3 mg Inactive Administered Medications - up to 3 most recent administrations Medication Order MAR Action Action Date Dose Rate Site acetaminophen 1,000 mg tab(s) (TYLENOL) 1,000 mg, ORAL, ONCE, 1 dose, On Mon06/16/23 at 1400, No more than 4000 mg of acetaminophen should be given per day (FROM ALL SOURCES), If ordered PRN for pain, patient/guardian may elect to receive this medication for higher pain levels INSTEAD of the opioid, if preferred: N/A Given 06/16/2023 1:45 PM EST 1,000 mg daratumumab 1,800 mg - hyaluronidase-fihj 30,000 units 1,800 mg injection (DARZALEX FASPRO) 1,800 mg, SUBCUTANEOUS, ONCE, 1 dose, On Mon06/16/23 at 1400, ++FOR SUBCUTANEOUS ADMINISTRATION ONLY++ EXP: (12 HR) Inject subcutaneously into subcutaneous tissue on the abdomen approximately 3 inches to the right or left of the navel over 3 to 5 minutes. Given 06/16/2023 2:12 PM EST 1,800 mg Abdomen, LLQ dexAMETHasone 20 mg tab(s) (DECADRON) 20 mg, ORAL, ONCE, 1 dose, On Mon06/16/23 at 1400 Given 06/16/2023 1:45 PM EST 20 mg diphenhydrAMINE 50 mg (BENADRYL) 50 mg, ORAL, ONCE, 1 dose, On Mon06/16/23 at 1400 Given 06/16/2023 1:45 PM EST 50 mg famotidine 20 mg tab(s) (PEPCID) 20 mg, ORAL, ONCE, 1 dose, On Mon06/16/23 at 1400 Given 06/16/2023 1:45 PM EST 20 mg zoledronic acid 3.3 mg in NaCl 0.9% 100 mL (ZOMETA) 3.3 mg, INTRAVENOUS, Administer over 15 Minutes, ONCE, 1 dose, On Mon06/16/23 at 1430, Hazardous Potential Reproductive Risk Drug: Use appropriate PPE. Refrigerate. New Bag/Syringe/Bottl e 06/16/2023 2:45 PM EST 3.3 mg Chief Complaint and Reason for Visit Chief Complaint nose bleed Chief Complaint nose bleed NVD Chief Complaint Admit Date NVD November 26, 2024 8:43pm Additional Source Comments INFORMATION SOURCE (unrecogn ized section and content) DATE CREATED AUTHOR 02/09/2019 [facility] DATE CREATED AUTHOR AUTHOR'S ORGANIZ ATION 12/07/2022 [facility] DATE CREATED AUTHOR AUTHOR'S ORGANIZ ATION 01/25/2023 [facility] DATE CREATED AUTHOR AUTHOR'S ORGANIZ ATION 02/03/2023 [facility] DATE CREATED AUTHOR AUTHOR'S ORGANIZ ATION 06/02/2023 [facility] DATE CREATED AUTHOR AUTHOR'S ORGANIZ ATION 11/29/2024 [facility] DATE CREATED AUTHOR AUTHOR'S ORGANIZ ATION 01/31/2025 [facility] DATE CREATED AUTHOR AUTHOR'S ORGANIZ ATION 06/01/2025 [facility] Scheduled Active and Recently Administ ered Medications (unrecognized section and content) Medication Order 10/23/2021 10/24/2021 10/25/2021 sodium chloride flush 0.9 % injection 5-40 mL 5-40 mL, IntraVENous, EVERY 12 HOURS SCHEDULED (2 times per day), First dose on Mon10/25/21 at 0900, Until Discontinued, For Line Patency: Peripheral IV = 5 mL; Midline or Central Line = 10 mL/lumen. If following IV push medication, administer flush at same rate as the IV push. Flush volume is determined by type of infusion therapy being given. For non-viscous solutions use: Peripheral IV = 5 mL Midline or Central Line = 10 mL/lumen For viscous solutions (i.e. blood components, parenteral nutrition, contrast media, or after obtaining blood sample) use: Peripheral IV = 10 mL Midline or Central Line = 20 mL/lumen, Pre-procedure(GI) 0900 (Due)2100 (Due) Continuous Medication Order 10/23/2021 10/24/2021 10/25/2021 0.9 % sodium chloride infusion IntraVENous, at 75 mL/hr, CONTINUOUS, Starting on Mon10/25/21 at 0730, Pre-procedure(GI) 0751 (New Bag - Prov ider: NABILA Pereyra CRNA)0832 (Anesthesia Volume Adjustment - Provider: NABILA Pereyra CRNA) PRN Medication Order 10/23/2021 10/24/2021 10/25/2021 0.9 % sodium chloride infusion 25 mL, IntraVENous, at 100 mL/hr, PRN, If patient receiving piggyback infusions without ordered maintenance IV fluids or with frequent/long duration piggyback infusions, Starting on Mon10/25/21 at 0702, Administer at the same rate as the piggyback being infused., Pre-procedure(GI) sodium chloride flush 0.9 % injection 5-40 mL 5-40 mL, IntraVENous, PRN, Starting on Mon10/25/21 at 0702, Until Discontinued, Line Care, After every IV line use, For Line Patency: Peripheral IV = 5 mL; Midline or Central Line = 10 mL/lumen. If following IV push medication, administer flush at same rate as the IV push. Flush volume is determined by type of infusion therapy being given. For non-viscous solutions use: Peripheral IV = 5 mL Midline or Central Line = 10 mL/lumen For viscous solutions (i.e. blood components, parenteral nutrition, contrast media, or after obtaining blood sample) use: Peripheral IV = 10 mL Midline or Central Line = 20 mL/lumen, Pre-procedure(GI) Care Teams (unrecognized sec tion and content) Meteorological Aide Relationship Specialty Start Date End Date Hilton Pena MD PCP - General Family Medicine 09/29/21 Meteorological Aide Relationship Specialty Start Date End Date Hilton Pena MD [address] [place] [address] [id number] PCP - [facility] Practice 03/29/19 Meteorological Aide Relationship Specialty Start Date End Date Hilton Pena MD [address] [place] [id number] PCP - [facility] Practice 03/29/19 Meteorological Aide Relationship Specialty Start Date End Date Hilton Pena MD [address] [place] [address] PCP - [facility] Practice 03/29/19 Meteorological Aide Relationship Specialty Start Date End Date Hilton Pena MD [address] [place] [id number] PCP - General [facility] Practice 03/29/19 Meteorological Aide Relationship Specialty Start Date End Date Hilton Pena MD [address] [facility] [place] [address] PCP - General Family Practice 03/29/19 Meteorological Aide Relationship Specialty Start Date End Date Hilton Pena MD [address] [facility] [place] [address] PCP - General Family Medicine 03/29/19 Meteorological Aide Relationship Specialty Start Date End Date Hilton Pena MD [address] [facility] [place] [address] PCP - General Family Medicine 03/29/19 Meteorological Aide Relationship Specialty Start Date End Date Hilton Pena MD [facility] [facility] [place] [address] PCP - General Family Medicine 03/29/19 Meteorological Aide Relationship Specialty Start Date End Date Hilton Pena MD [address] [facility] [place] [address] PCP - General Family Medicine 03/29/19 Meteorological Aide Relationship Specialty Start Date End Date Hilton Pena MD [address] [facility] [place] [address] PCP - General Family Medicine 03/29/19 Meteorological Aide Relationship Specialty Start Date End Date Hilton Pena MD [address] [facility] [place] [address] PCP - General Family Medicine 03/29/19 Meteorological Aide Relationship Specialty Start Date End Date Hilton Pena MD [address] [facility] [place] [address] PCP - General Family Medicine 03/29/19 Meteorological Aide Relationship Specialty Start Date End Date Hilton Pena MD [address] [facility] [place] [address] PCP - General Family Medicine 03/29/19 Meteorological Aide Relationship Specialty Start Date End Date Hilotn Pena MD [address] [facility] [place] [address] PCP - General Family Medicine 03/29/19 Meteorological Aide Relationship Specialty Start Date End Date Hilton Pena MD [address] [facility] [place] [address] PCP - General Family Medicine 03/29/19 Meteorological Aide Relationship Specialty Start Date End Date Hilton Pnea MD [address] [facility] [place] [address] PCP - General Family Medicine 03/29/19 Meteorological Aide Relationship Specialty Start Date End Date Hilton Pena MD [address] [facility] [place] [address] PCP - General Family Medicine 03/29/19 Meteorological Aide Relationship Specialty Start Date End Date Hilton Pena MD [address] [facility] [place] [address] PCP - General Family Medicine 03/29/19 Meteorological Aide Relationship Specialty Start Date End Date Hilton Pena MD [address] [place] [address] PCP - General Family Medicine 03/29/19 [place] [address] [place] [address] Specialty Cultural Anthropology Professor Hematology/Oncology 02/10/23 Meteorological Aide Relationship Specialty Start Date End Date Hilton Pena MD [address] [place] [address] PCP - General Family Medicine 03/29/19 [place] [address] [place] [address] Specialty Cultural Anthropology Professor Hematology/Oncology 02/10/23 Meteorological Aide Relationship Specialty Start Date End Date Hilton Pena MD [address] [place], [place] 658471 PCP - General Family Medicine 03/29/19 Katey Croft, CONCETTA [address] [place] [address] Specialty Cultural Anthropology Professor Hematology/Oncology 02/10/23 Mariela Masters, CONCETTA [address] [place] [address] Specialty Cultural Anthropology Professor Radiation Oncology 02/16/23 Meteorological Aide Relationship Specialty Start Date End Date Hilton Pena MD [address] [place] [address] PCP - General Family Medicine 03/29/19 Katey Croft, CONCETTA [address] [place] [id number] Specialty Cultural Anthropology Professor Hematology/Oncology 02/10/23 Mariela Masters, CONCETTA [address] [place] [address] Specialty Cultural Anthropology Professor Radiation Oncology 02/16/23 Meteorological Aide Relationship Specialty Start Date End Date Hilton Pena MD [address] [place] [address] PCP - General Family Medicine 03/29/19 Katey Croft, CONCETTA [address] [place] [address] Specialty Cultural Anthropology Professor Hematology/Oncology 02/10/23 Mariela Masters RN [address] [place] [address] Specialty Cultural Anthropology Professor Radiation Oncology 02/16/23 Meteorological Aide Relationship Specialty Start Date End Date Hilton Pena MD [address] [place], [place] [id number] [phone] PCP - General Family Medicine 03/29/19 [place] [address] [place] [address] Specialty Cultural Anthropology Professor Hematology/Oncology 02/10/23 Mariela Masters, CONCETTA [address] [place] [address] Specialty Cultural Anthropology Professor Radiation Oncology 02/16/23 Meteorological Aide Relationship Specialty Start Date End Date Hilton Pena MD [address] [place] [address] PCP - General Family Medicine 03/29/19 Katey Croft, CONCETTA [address] [place] [address] Specialty Cultural Anthropology Professor Hematology/Oncology 02/10/23 Mariela Masters, CONCETTA [address] [place] [address] Specialty Cultural Anthropology Professor Radiation Oncology 02/16/23 Jennifer Valles LSW Geotechnicial Properties Technician Oncology 02/23/23 Meteorological Aide Relationship Specialty Start Date End Date Hilton Pena MD [address] [place] [address] PCP - General Family Medicine 03/29/19 [place] [address] [place], [place] [id number] Specialty Cultural Anthropology Professor Hematology/Oncology 02/10/23 Mariela Masters, CONCETTA [address] [place] [address] Specialty Cultural Anthropology Professor Radiation Oncology 02/16/23 Jennifer Valles LSW Geotechnicial Properties Technician Oncology 02/23/23 Meteorological Aide Relationship Specialty Start Date End Date Hilton Pena MD [address] [place] [address] PCP - General Family Medicine 03/29/19 Katey Croft, CONCETTA [address] [place] [address] Specialty Cultural Anthropology Professor Hematology/Oncology 02/10/23 Mariela Masters, CONCETTA [address] [place] [address] Specialty Cultural Anthropology Professor Radiation Oncology 02/16/23 Jennifer Valles LSW Geotechnicial Properties Technician Oncology 02/23/23 Meteorological Aide Relationship Specialty Start Date End Date Hilton Pena MD [address] [facility] [place] [address] PCP - General Family Medicine 03/29/19 Katey Croft, CONCETTA [address] [place] [address] Specialty Cultural Anthropology Professor Hematology/Oncology 02/10/23 Mariela Masters, CONCETTA [address] [place] [address] Specialty Cultural Anthropology Professor Radiation Oncology 02/16/23 Jennifer Valles LSW Geotechnicial Properties Technician Oncology 02/23/23 Meteorological Aide Relationship Specialty Start Date End Date Hilton Pena MD [address] [place] [address] PCP - General Family Medicine 03/29/19 Katey Croft, CONCETTA [address] [place] [address] Specialty Cultural Anthropology Professor Hematology/Oncology 02/10/23 Mariela Masters, CONCETTA [address] [place] [address] Specialty Cultural Anthropology Professor Radiation Oncology 02/16/23 Jennifer Valles LSW Geotechnicial Properties Technician Oncology 02/23/23 Meteorological Aide Relationship Specialty Start Date End Date Hilton Pena MD [address] [facility] [place] [address] PCP - General Family Medicine 03/29/19 Katey Croft, CONCETTA [address] [place] [address] Specialty Cultural Anthropology Professor Hematology/Oncology 02/10/23 Mariela Masters, CONCETTA [address] [place] [address] Specialty Cultural Anthropology Professor Radiation Oncology 02/16/23 Jennifer Valles LSW Geotechnicial Properties Technician Oncology 02/23/23 Meteorological Aide Relationship Specialty Start Date End Date Hilton Pena MD [address] [facility] [place] [address] PCP - General Family Medicine 03/29/19 [place] [address] [place] [address] Specialty Cultural Anthropology Professor Hematology/Oncology 02/10/23 Mariela Masters, CONCETTA [address] [place] [address] Specialty Cultural Anthropology Professor Radiation Oncology 02/16/23 Jennifer Valles [facility] Geotechnicial Properties Technician Oncology 02/23/23 Meteorological Aide Relationship Specialty Start Date End Date Hilton Pena MD 0 [place] [address] PCP - General Family Medicine 03/29/19 Katey Croft, CONCETTA [address] [place] [address] Specialty Cultural Anthropology Professor Hematology/Oncology 02/10/23 Mariela Masters, CONCETTA [address] [place] [address] Specialty Cultural Anthropology Professor Radiation Oncology 02/16/23 Jennifer Valles LSW Geotechnicial Properties Technician Oncology 02/23/23 Meteorological Aide Relationship Specialty Start Date End Date Hilton Pena MD [address] [facility] [place] [address] PCP - General Family Medicine 03/29/19 Katey Croft, CONCETTA [address] [place] [address] Specialty Cultural Anthropology Professor Hematology/Oncology 02/10/23 Mariela Masters, CONCETTA [address] [place] [address] Specialty Cultural Anthropology Professor Radiation Oncology 02/16/23 Jennifer Valles LSW Geotechnicial Properties Technician Oncology 02/23/23 Meteorological Aide Relationship Specialty Start Date End Date Hilton Pena MD [address] [facility] [place] [address] PCP - General Family Medicine 03/29/19 Katey Croft, CONCETTA [address] [place] [address] Specialty Cultural Anthropology Professor Hematology/Oncology 02/10/23 Mariela Masters, CONCETTA [address] [place] [address] Specialty Cultural Anthropology Professor Radiation Oncology 02/16/23 Jennifer Valles LSW Geotechnicial Properties Technician Oncology 02/23/23 Meteorological Aide Relationship Specialty Start Date End Date Hilton Pena MD [address] [facility] [place] [address] PCP - General Family Medicine 03/29/19 Katey Croft, CONCETTA [address] [place] [address] Specialty Cultural Anthropology Professor Hematology/Oncology 02/10/23 Mariela Masters, CONCETTA [address] [place] [address] Specialty Cultural Anthropology Professor Radiation Oncology 02/16/23 Jennifer Valles LSW Geotechnicial Properties Technician Oncology 02/23/23 Meteorological Aide Relationship Specialty Start Date End Date Hilton Pena MD [address] [facility] [place] [address] PCP - General Family Medicine 03/29/19 Katey Croft, CONCETTA [address] [place] [address] Specialty Cultural Anthropology Professor Hematology/Oncology 02/10/23 [place] [address] [place] [address] Specialty Cultural Anthropology Professor Radiation Oncology 02/16/23 Jennifer Valles LSW Geotechnicial Properties Technician Oncology 02/23/23 Meteorological Aide Relationship Specialty Start Date End Date Hilton Pena MD [address] [facility] [place] [address] PCP - General Family Medicine 03/29/19 [place] [address] [facility] [place] [address] Specialty Cultural Anthropology Professor Hematology/Oncology 02/10/23 Mariela Masters, CONCETTA [address] [place] [address] Specialty Cultural Anthropology Professor Radiation Oncology 02/16/23 Jennifer Valles [facility] Geotechnicial Properties Technician Oncology 02/23/23 Meteorological Aide Relationship Specialty Start Date End Date Hilton Pena MD [address] [facility] [place] [address] PCP - General Family Medicine 03/29/19 Katey Croft, CONCETTA [address] [place] [address] Specialty Cultural Anthropology Professor Hematology/Oncology 02/10/23 Mariela Masters, CONCETTA [address] [place] [address] Specialty Cultural Anthropology Professor Radiation Oncology 02/16/23 Jennifer Valles LSW Geotechnicial Properties Technician Oncology 02/23/23 Meteorological Aide Relationship Specialty Start Date End Date Hilton Pena MD [address] [facility] [place] [address] PCP - General Family Medicine 03/29/19 [place] [address] [place] [address] Specialty Cultural Anthropology Professor Hematology/Oncology 02/10/23 [place] [address] [place] [address] Specialty Cultural Anthropology Professor Radiation Oncology 02/16/23 Jennifer Valles [facility] Geotechnicial Properties Technician Oncology 02/23/23 Meteorological Aide Relationship Specialty Start Date End Date Hilton Pena MD [address] [facility] [place] [address] PCP - General Family Medicine 03/29/19 Katey Croft, CONCETTA [address] [place] [address] Specialty Cultural Anthropology Professor Hematology/Oncology 02/10/23 [place] [address] [place] [address] Specialty Cultural Anthropology Professor Radiation Oncology 02/16/23 Jennifer Valles [facility] Geotechnicial Properties Technician Oncology 02/23/23 Meteorological Aide Relationship Specialty Start Date End Date Hilton Pena MD [address] [facility] [place] [address] PCP - General Family Medicine 03/29/19 [place] [address] [place] [address] Specialty Cultural Anthropology Professor Hematology/Oncology 02/10/23 [place] [address] [place] [address] Specialty Cultural Anthropology Professor Radiation Oncology 02/16/23 Jennifer Valles [facility] Geotechnicial Properties Technician Oncology 02/23/23 Meteorological Aide Relationship Specialty Start Date End Date Hilton Pena MD [address] [facility] [place] [address] PCP - General Family Medicine 03/29/19 [place] [address] [place] [address] Specialty Cultural Anthropology Professor Hematology/Oncology 02/10/23 Mariela Masters, CONCETTA [address] [place] [address] Specialty Cultural Anthropology Professor Radiation Oncology 02/16/23 Jennifer Valles LSW Geotechnicial Properties Technician Oncology 02/23/23 Meteorological Aide Relationship Specialty Start Date End Date Hilton Pena MD [address] [facility] [place] [address] PCP - General Family Medicine 03/29/19 Katey Croft, CONCETTA [address] [place] [address] Specialty Cultural Anthropology Professor Hematology/Oncology 02/10/23 Mariela Masters RN [address] [place] [address] Specialty Cultural Anthropology Professor Radiation Oncology 02/16/23 Jennifer Valles LSW Geotechnicial Properties Technician Oncology 02/23/23 Meteorological Aide Relationship Specialty Start Date End Date Hilton Pena MD [address] [facility] [place] [address] PCP - General Family Medicine 03/29/19 Katey Croft RN [address] [place] [address] Specialty Cultural Anthropology Professor Hematology/Oncology 02/10/23 Mariela Masters RN [address] [place] [address] Specialty Cultural Anthropology Professor Radiation Oncology 02/16/23 Jennifer Valles LSW Geotechnicial Properties Technician Oncology 02/23/23 Meteorological Aide Relationship Specialty Start Date End Date Hilton Pena MD [address] [facility] [place] [address] PCP - General Family Medicine 03/29/19 Katey Croft, CONCETTA [address] [place] [address] Specialty Cultural Anthropology Professor Hematology/Oncology 02/10/23 Mariela Masters, CONCETTA [address] [place] [address] Specialty Cultural Anthropology Professor Radiation Oncology 02/16/23 Jennifer Valles LSW Geotechnicial Properties Technician Oncology 02/23/23 Meteorological Aide Relationship Specialty Start Date End Date Hilton Pena MD [address] [place] [address] PCP - General Family Medicine 03/29/19 [place] [address] [place] [address] Specialty Cultural Anthropology Professor Hematology/Oncology 02/10/23 Mariela Masters, CONCETTA [address] [place] [address] Specialty Cultural Anthropology Professor Radiation Oncology 02/16/23 Jennifer Valles LSW Geotechnicial Properties Technician Oncology 02/23/23 Meteorological Aide Relationship Specialty Start Date End Date Hilton Pena MD [address]39 [place], [place] [id number] PCP - General Family Medicine 03/29/19 Katey Croft, CONCETTA [address] [place] [address] Specialty Cultural Anthropology Professor Hematology/Oncology 02/10/23 Mariela Masters, CONCETTA [address] [place] [address] Specialty Cultural Anthropology Professor Radiation Oncology 02/16/23 Jennifer Valles LSW Geotechnicial Properties Technician Oncology 02/23/23 Team Status: Active Member Role Status Dates Dr. Hilton Pena MD Primary Care Provider Active Team Status: Inactive Member Role Status Dates Dr. Hilton Pena MD Primary Care Provider Active Dr. Crystal Schulte MD Emergency Provider Active Meteorological Aide Relationship Specialty Start Date End Date Hilton Pena MD 0 [place], [place] [id number] PCP - General Family Medicine 03/29/19 [place] [address] [place] [address] Specialty Cultural Anthropology Professor Hematology/Oncology 02/10/23 Mariela Masters, CONCETTA [address] [place] [address] Specialty Cultural Anthropology Professor Radiation Oncology 02/16/23 Jennifer Valles LSW Geotechnicial Properties Technician Oncology 02/23/23 Meteorological Aide Relationship Specialty Start Date End Date Hilton Pena MD [address] [facility] [place] [address] PCP - General Family Medicine 03/29/19 [place] [address] [place] [address] Specialty Cultural Anthropology Professor Hematology/Oncology 02/10/23 Mariela Masters, CONCETTA [address] [place] [address] Specialty Cultural Anthropology Professor Radiation Oncology 02/16/23 Jennifer Valles [facility] Geotechnicial Properties Technician Oncology 02/23/23 Meteorological Aide Relationship Specialty Start Date End Date Hilton Pena MD 0 [place] [address] PCP - General Family Medicine 03/29/19 Katey Croft, CONCETTA [address] [place] [address] Specialty Cultural Anthropology Professor Hematology/Oncology 02/10/23 Mariela Masters, CONCETTA [address] [place] [address] Specialty Cultural Anthropology Professor Radiation Oncology 02/16/23 Jennifer Valles LSW Geotechnicial Properties Technician Oncology 02/23/23 Meteorological Aide Relationship Specialty Start Date End Date Hilton Pena MD 0 [facility] [place] [address] PCP - General Family Medicine 03/29/19 [place] [address] [place] [address] Specialty Cultural Anthropology Professor Hematology/Oncology 02/10/23 [place] [address] [place] [address] Specialty Cultural Anthropology Professor Radiation Oncology 02/16/23 Jennifer Valles LSW Geotechnicial Properties Technician Oncology 02/23/23 Team Status: Inactive Member Role Status Dates Dr. Hilton Pena MD Primary Care Provider Active Dr. Crystal Schulte MD Attending Provider, Emergency Provider Active Meteorological Aide Relationship Specialty Start Date End Date Hilton Pena MD [address] [facility] [place] [address] PCP - General Family Medicine 03/29/19 Katey Croft, CONCETTA [address] [place] [address] Specialty Cultural Anthropology Professor Hematology/Oncology 02/10/23 Mariela Masters, CONCETTA [address] [place] [address] Specialty Cultural Anthropology Professor Radiation Oncology 02/16/23 Jennifer Valles LSW Geotechnicial Properties Technician Oncology 02/23/23 Meteorological Aide Relationship Specialty Start Date End Date Hilton Pena MD [address] [facility] [place] [address] PCP - General Family Medicine 03/29/19 Katey Croft, CONCETTA [address] [place] [address] Specialty Cultural Anthropology Professor Hematology/Oncology 02/10/23 Mariela Masters, CONCETTA [address] [place] [address] Specialty Cultural Anthropology Professor Radiation Oncology 02/16/23 Jennifer Valles LSW Geotechnicial Properties Technician Oncology 02/23/23 Meteorological Aide Relationship Specialty Start Date End Date Hilton Pena MD [address] [facility] [place] [address] PCP - General Family Medicine 03/29/19 Katey Croft, CONCETTA [address] [place] [address] Specialty Cultural Anthropology Professor Hematology/Oncology 02/10/23 Mariela Masters, CONCETTA [address] [place] [address] Specialty Cultural Anthropology Professor Radiation Oncology 02/16/23 Jennifer Valles LSW Geotechnicial Properties Technician Oncology 02/23/23 Meteorological Aide Relationship Specialty Start Date End Date Hilton Pena MD [address] [facility] [place] [address] PCP - General Family Medicine 03/29/19 Katey Croft, CONCETTA [address] [place] [address] Specialty Cultural Anthropology Professor Hematology/Oncology 02/10/23 Mariela Masters, CONCETTA [address] [place] [address] Specialty Cultural Anthropology Professor Radiation Oncology 02/16/23 Jennifer Valles LSW Geotechnicial Properties Technician Oncology 02/23/23 Meteorological Aide Relationship Specialty Start Date End Date Hilton Pena MD [address] [facility] [place] [address] PCP - General Family Medicine 03/29/19 [place] [address] [place] [address] Specialty Cultural Anthropology Professor Hematology/Oncology 02/10/23 Mariela Masters, CONCETTA [address] [place] [address] Specialty Cultural Anthropology Professor Radiation Oncology 02/16/23 Jennifer Valles LSW Geotechnicial Properties Technician Oncology 02/23/23 Meteorological Aide Relationship Specialty Start Date End Date Hilton Pena MD [address] [facility] [place] [address] PCP - General Family Medicine 03/29/19 Katey Croft, CONCETTA [address] [place] [address] Specialty Cultural Anthropology Professor Hematology/Oncology 02/10/23 [place] [address] [place] [address] Specialty Cultural Anthropology Professor Radiation Oncology 02/16/23 Jennifer Valles LSW Geotechnicial Properties Technician Oncology 02/23/23 Meteorological Aide Relationship Specialty Start Date End Date Hilton Pena MD [address] [facility] [place] [address] PCP - General Family Medicine 03/29/19 [place] [address] [place] [address] Specialty Cultural Anthropology Professor Hematology/Oncology 02/10/23 [place] [address] [place] [address] Specialty Cultural Anthropology Professor Radiation Oncology 02/16/23 Jennifer Valles [facility] Geotechnicial Properties Technician Oncology 02/23/23 Meteorological Aide Relationship Specialty Start Date End Date Hilton Pena MD 0 [place] [address] PCP - General Family Medicine 03/29/19 [place] [address] [place] [address] Specialty Cultural Anthropology Professor Hematology/Oncology 02/10/23 Mariela Masters, COCNETTA [address] [place] [address] Specialty Cultural Anthropology Professor Radiation Oncology 02/16/23 Jennifer Valles LSW Geotechnicial Properties Technician Oncology 02/23/23 Meteorological Aide Relationship Specialty Start Date End Date Hilton Pena MD [address]40 [place] [address] PCP - General Family Medicine 03/29/19 [place] [address] [place] [address] Specialty Cultural Anthropology Professor Hematology/Oncology 02/10/23 [place] [address] [place] [address] Specialty Cultural Anthropology Professor Radiation Oncology 02/16/23 Jennifer Valles LSW Geotechnicial Properties Technician Oncology 02/23/23 Meteorological Aide Relationship Specialty Start Date End Date Hilton Pena MD [address] [place] [address] PCP - General Family Medicine 03/29/19 Katey Croft, CONCETTA [address] [place] [address] Specialty Cultural Anthropology Professor Hematology/Oncology 02/10/23 [place] [address] [place] [address] Specialty Cultural Anthropology Professor Radiation Oncology 02/16/23 Jennifer Valles LSW Geotechnicial Properties Technician Oncology 02/23/23 Meteorological Aide Relationship Specialty Start Date End Date Hilton Pena MD 0 [place] [address] PCP - General Family Medicine 03/29/19 Katey Croft, CONCETTA [address] [place] [address] Specialty Cultural Anthropology Professor Hematology/Oncology 02/10/23 [place] [address] [place] [address] Specialty Cultural Anthropology Professor Radiation Oncology 02/16/23 Jennifer Valles LSW Geotechnicial Properties Technician Oncology 02/23/23 Meteorological Aide Relationship Specialty Start Date End Date Hilton Pena MD [address] [facility] [place] [address] PCP - General Family Medicine 03/29/19 Meteorological Aide Relationship Specialty Start Date End Date Hilton Pena MD [address] [place] [address] PCP - General Family Medicine 03/29/19 Katey Croft, CONCETTA [address] [place] [address] Specialty Cultural Anthropology Professor Hematology/Oncology 02/10/23 Mariela Masters, CONCETTA [address] [place], [place] 06[address] Specialty Cultural Anthropology Professor Radiation Oncology 02/16/23 Jennifer Valles, [facility] Geotechnicial Properties Technician Oncology 02/23/23 Meteorological Aide Relationship Specialty Start Date End Date Hilton Pena MD [address] [place] [address] 065671 PCP - General Family Medicine 03/29/19 Katey Croft, CONCETTA [address] [place] [address] Specialty Cultural Anthropology Professor Hematology/Oncology 02/10/23 Mariela Masters, CONCETTA [address] [place] [address] Specialty Cultural Anthropology Professor Radiation Oncology 02/16/23 Jennifer Valles, [facility] Geotechnicial Properties Technician Oncology 02/23/23 Andrew Stanton, NABILA.[employer] [address] [place] [address] Derrick Car Operator Family Medicine 06/29/24 Ruthy Valle PA-C [address] [place] [address] Derrick Car Operator Family Medicine 06/29/24 Meteorological Aide Relationship Specialty Start Date End Date Hilton Pena MD [address] [place] [address] PCP - General Family Medicine 03/29/19 Katey Croft, CONCETTA [address] [place] [address] Specialty Cultural Anthropology Professor Hematology/Oncology 02/10/23 Mariela Masters, CONCETTA [address] [place], [place] [id number] Specialty Cultural Anthropology Professor Radiation Oncology 02/16/23 Jennifer Valles LSW Geotechnicial Properties Technician Oncology 02/23/23 Andrew Stanton, NABILA.[employer] [address] [place] [address] 936108 [phone] Derrick Car Operator Family Medicine 06/29/24 Ruthy Valle PA-C [address] [place] [address] Derrick Car Operator Family [facility] 06/29/24 Meteorological Aide Relationship Specialty Start Date End Date Hilton Pena MD [address] [place] [address] PCP - General Family Medicine 03/29/19 [place] [address] [place] [address] Specialty Cultural Anthropology Professor Hematology/Oncology 02/10/23 Mariela Masters, CONCETTA [address] [place], [place] [id number] Specialty Cultural Anthropology Professor Radiation Oncology 02/16/23 Jennifer Valles LSW Geotechnicial Properties Technician Oncology 02/23/23 Andrew Stanton, NABILA.[employer]ER [address] [place] [address] Derrick Car Operator Family Medicine 06/29/24 Ruthy Valle PA-C [facility] [place] [address] Derrick Car Operator Family Medicine 06/29/24 Meteorological Aide Relationship Specialty Start Date End Date Hilton Pena MD [address] [place] [address] [place] [address] PCP - General Family Medicine 03/29/19 Katey Croft, CONCETTA [address] [place] [address] Specialty Cultural Anthropology Professor Hematology/Oncology 02/10/23 Mariela Masters, CONCETTA [address] [place] [address] Specialty Cultural Anthropology Professor Radiation Oncology 02/16/23 Jennifer Valles LSW Geotechnicial Properties Technician Oncology 02/23/23 Andrew Stanton, NABILA.[employer] [address] [place] [address] Derrick Car Operator Family [facility] 06/29/24 Ruthy Valle PA-C [address] [place] [address] [facility] Family [facility] 06/29/24 Meteorological Aide Relationship Specialty Start Date End Date Hilton Pena MD [address] [place] [address] PCP - General Family Medicine 03/29/19 Katey Croft, CONCETTA [address] [place] [address] Specialty Cultural Anthropology Professor Hematology/Oncology 02/10/23 Mariela Masters, CONCETTA [address] [place], [place] [phone] Specialty Cultural Anthropology Professor Radiation Oncology 02/16/23 Jennifer Valles LSW Geotechnicial Properties Technician Oncology 02/23/23 Andrew Stanton, NABILA.[employer] [address] [place] [address] [phone] Derrick Car Operator Family Medicine 06/29/24 Ruthy Valle PA-C [facility] [place] [address] Derrick Car Operator [facility] 06/29/24 Meteorological Aide Relationship Specialty Start Date End Date Hilton Pena MD [address]40 [place] [address] PCP - General Family Medicine 03/29/19 Katey Croft, CONCETTA [address] [place] [address] Specialty Cultural Anthropology Professor Hematology/Oncology 02/10/23 Mariela Masters, CONCETTA [address] [place] [address] Specialty Cultural Anthropology Professor Radiation Oncology 02/16/23 Jennifer Valles LSW Geotechnicial Properties Technician Oncology 02/23/23 Andrew Stanton, NABILA.[employer]ER [address] [place] [address] [facility] 06/29/24 Ruthy Valle PA-C [address] [place] [address] [facility] 06/29/24 Meteorological Aide Relationship Specialty Start Date End Date Hilton Pena MD [address] [place] [address] PCP - General Family Medicine 03/29/19 Katey Croft, CONCETTA [address] [place] [address] Specialty Cultural Anthropology Professor Hematology/Oncology 02/10/23 Mariela Masters, CONCETTA [address] [place] [address] Specialty Cultural Anthropology Professor Radiation Oncology 02/16/23 Jennifer Valles LSW Geotechnicial Properties Technician Oncology 02/23/23 Andrew Stanton, NABILA.[employer]ER [address] [place] [address] Derrick Car Operator Family [facility] 06/29/24 Ruthy Valle PA-C [address] [place] [address] [facility] 06/29/24 Meteorological Aide Relationship Specialty Start Date End Date Hilton Pena MD [address] [place] [address] PCP - General Family Medicine 03/29/19 Katey Croft, CONCETTA [address] [place] [address] Specialty Cultural Anthropology Professor Hematology/Oncology 02/10/23 Mariela Masters RN [address] [place] [address] [phone] Specialty Cultural Anthropology Professor Radiation Oncology 02/16/23 Jennifer Valles LSW Geotechnicial Properties Technician Oncology 02/23/23 Andrew Stanton, NABILA.[facility] [address] [place] [address] [facility] 06/29/24 Ruthy Valle PA-C [address] [place] [address] [facility] 06/29/24 Meteorological Aide Relationship Specialty Start Date End Date Hilton Pena MD [facility] [place] [address] PCP - General Family Medicine 03/29/19 Katey Croft, CONCETTA [address] [place] [address] Specialty Cultural Anthropology Professor Hematology/Oncology 02/10/23 Mariela Masters, CONCETTA [address] [place] [address] [phone] Specialty Cultural Anthropology Professor Radiation Oncology 02/16/23 Jennifer Valles LSW Geotechnicial Properties Technician Oncology 02/23/23 Andrew Stanton, DRAGGER.[employer] [address] [place], [place] 735487 [phone] Derrick Car Operator Family Medicine 06/29/24 Ruthy Valle PA-C [address] [place] [address] [id number] [phone] Derrick Car Operator Family Medicine 06/29/24 Meteorological Aide Relationship Specialty Start Date End Date Hilton Pena MD [address] [place] [address] 16034 PCP - General Family Medicine 03/29/19 Katey Croft, CONCETTA [address] [place] [address] Specialty Cultural Anthropology Professor Hematology/Oncology 02/10/23 [place] [address] [place] [address] Specialty Cultural Anthropology Professor Radiation Oncology 02/16/23 Jennifer Valles LSW Geotechnicial Properties Technician Oncology 02/23/23 Andrew Stanton, NABILA.[employer] [address] [place] [address] [phone] Derrick Car Operator Family Medicine 06/29/24 Ruthy Valle PA-C [facility] [place] [address] Derrick Car Operator Family Medicine 06/29/24 Meteorological Aide Relationship Specialty Start Date End Date Hilton Pena MD [address] [place] [address] 13489 PCP - General Family Medicine 03/29/19 Katey Croft, CONCETTA [address] [place] [address] Specialty Cultural Anthropology Professor Hematology/Oncology 02/10/23 Mariela Masters, CONCETTA [address] [place], [place] [phone] Specialty Cultural Anthropology Professor Radiation Oncology 02/16/23 Jennifer Valles LSW Geotechnicial Properties Technician Oncology 02/23/23 Andrew Stanton, NABILA.[employer] [address] [place] [address] [phone] Derrick Car Operator Family Medicine 06/29/24 Ruthy Valle PA-C [address] [place] [address] 14698 Derrick Car Operator Family Medicine 06/29/24 Meteorological Aide Relationship Specialty Start Date End Date Hilton Pena MD [address] [place] [address] 35621 PCP - General Family Medicine 03/29/19 [place] [address] [place] [address] Specialty Cultural Anthropology Professor Hematology/Oncology 02/10/23 Mariela Masters, CONCETTA [address] [place] [address] Specialty Cultural Anthropology Professor Radiation Oncology 02/16/23 Jennifer Valles LSW Geotechnicial Properties Technician Oncology 02/23/23 Andrew Stanton, DRAGGER.[employer] [address] [place] [address] 32152 Derrick Car Operator Family Medicine 06/29/24 Ruthy Valle PA-C [facility] [place] [address] Derrick Car Operator Family Medicine 06/29/24 Meteorological Aide Relationship Specialty Start Date End Date Hilton Pena MD [address] [place] [address] PCP - General Family Medicine 03/29/19 Katey Croft, CONCETTA [address] [place] [address] Specialty Cultural Anthropology Professor Hematology/Oncology 02/10/23 Mariela Masters, CONCETTA [address] [place] [address] Specialty Cultural Anthropology Professor Radiation Oncology 02/16/23 Jennifer Valles LSW Geotechnicial Properties Technician Oncology 02/23/23 Andrew Stanton APRN.[employer] [address] [place] [address] 70307 Derrick Car Operator Family Medicine 06/29/24 Ruthy Valle PA-C [address] [place] [address] 16942 Derrick Car Operator Family Medicine 06/29/24 Meteorological Aide Relationship Specialty Start Date End Date Hilton Pena MD [address] [place] [address] 89797 PCP - General Family Medicine 03/29/19 Katey Croft, CONCETTA [address] [place] [address] Specialty Cultural Anthropology Professor Hematology/Oncology 02/10/23 Mariela Masters, CONCETTA [address] [place] [address] Specialty Cultural Anthropology Professor Radiation Oncology 02/16/23 Jennifer Valles LSW Geotechnicial Properties Technician Oncology 02/23/23 Andrew Stanton APRN.[employer] [address] [place] [address] 43439 Derrick Car Operator Family Medicine 06/29/24 Ruthy Valle PA-C [facility] [place] [address] Derrick Car Operator [facility] 06/29/24 Meteorological Aide Relationship Specialty Start Date End Date Hilton Pena MD [address] [place] [address] PCP - General Family Medicine 03/29/19 Katey Croft, CONCETTA [address] [place] [address] Specialty Cultural Anthropology Professor Hematology/Oncology 02/10/23 Mariela Masters, CONCETTA [address] [place] [address] Specialty Cultural Anthropology Professor Radiation Oncology 02/16/23 Jennifer Valles LSW Geotechnicial Properties Technician Oncology 02/23/23 Andrew Stanton APRN.[employer] [address] [place] [address] 74[address] [facility] 06/29/24 Ruthy Valle PA-C [address] [place] [address] [facility] 06/29/24 Meteorological Aide Relationship Specialty Start Date End Date Hilton Pena MD [address] [place] [address] PCP - General Family Medicine 03/29/19 Katey Croft, CONCETTA [address] [place] [address] Specialty Cultural Anthropology Professor Hematology/Oncology 02/10/23 Mariela Masters, CONCETTA [address] [place] [address] Specialty Cultural Anthropology Professor Radiation Oncology 02/16/23 Jennifer Valles LSW Geotechnicial Properties Technician Oncology 02/23/23 Andrew Stanton APRN.[employer] [address] [place] [address] [phone] Derrick Car Operator [facility] 06/29/24 Ruthy Valle PA-C [address] [place], [place] 190811 [facility] 06/29/24 Meteorological Aide Relationship Specialty [place] [address] [place] [address] [id number] PCP - General Family Medicine 03/29/19 [place] [address] [place] [address] Specialty Cultural Anthropology Professor Hematology/Oncology 02/10/23 [place] [address] [place] [address] Specialty Cultural Anthropology Professor Radiation Oncology 02/16/23 Jennifer Valles LSW Geotechnicial Properties Technician Oncology 02/23/23 Andrew Stanton, NABILA.[employer] [address] [place] [address] [phone] [facility] 06/29/24 Ruthy Valle PA-C [address] [place] [address] [phone] [facility] 06/29/24 Team Status: Inactive Member Role Status Dates Dr. Hilton Pena MD Primary Care Provider Active Start: November 26, 2024 End: November 26, 2024 Dr. Vazquez Marc MD Emergency Provider Active S tart: November 26, 2024 End: November 26, 2024 Meteorological Aide Relationship Specialty Start Date End Date Hilton Pena MD [address] [place], [place] [id number] PCP - General Family Medicine 03/29/19 Katey CroftCONCETTA [address] [place] [address] Specialty Cultural Anthropology Professor Hematology/Oncology 02/10/23 Mariela Masters, CONCETTA [address] [place] [address] Specialty Cultural Anthropology Professor Radiation Oncology 02/16/23 Jennifer Valles LSW Geotechnicial Properties Technician Oncology 02/23/23 Andrew Stanton, NABILA.[employer] [address] [place] [address] [phone] Derrick Car Operator Family Medicine 06/29/24 Ruthy Valle PA-C [address] [place] [address] 53495 Derrick Car Operator Family Medicine 06/29/24 Meteorological Aide Relationship Specialty Start Date End Date Hilton Pena MD [address] [place] [address] 13294 PCP - General Family Medicine 03/29/19 [place] [address] [place] [address] Specialty Cultural Anthropology Professor Hematology/Oncology 02/10/23 Mariela Masters, CONCETTA [address] [place] [address] Specialty Cultural Anthropology Professor Radiation Oncology 02/16/23 Jennifer Valles LSW Geotechnicial Properties Technician Oncology 02/23/23 Andrew Stanton, DRAGGER.[employer] [address] [place] [address] 33111 Derrick Car Operator Family Medicine 06/29/24 Ruthy Valle PA-C [address] [place] [address] 85848 Derrick Car Operator Family Medicine 06/29/24 Meteorological Aide Relationship Specialty Start Date End Date Hilton Pena MD [address] [place] [address] 18422 PCP - General Family Medicine 03/29/19 Katey Croft, CONCETTA [address] [place] [address] Specialty Cultural Anthropology Professor Hematology/Oncology 02/10/23 Mariela Masters, CONCETTA [address] [place], [place] [phone] Specialty Cultural Anthropology Professor Radiation Oncology 02/16/23 Jennifer Valles LSW Geotechnicial Properties Technician Oncology 02/23/23 Andrew Stanton APRN.[employer] [address] [place] [address] [phone] Derrick Car Operator Family Medicine 06/29/24 Ruthy Valle PA-C [address] [place] [address] 81276 Derrick Car Operator Family Medicine 06/29/24 Meteorological Aide Relationship Specialty Start Date End Date Hilton Pena MD [address] [place] [address] [phone] PCP - General Family Medicine 03/29/19 [place] [address] [place] [address] Specialty Cultural Anthropology Professor Hematology/Oncology 02/10/23 Mariela Masters, CONCETTA [address] [place] [address] Specialty Cultural Anthropology Professor Radiation Oncology 02/16/23 Jennifer Valles LSW Geotechnicial Properties Technician Oncology 02/23/23 Ruthy Valle PA-C [address] [place] [address] 11771 Derrick Car Operator Family Medicine 06/29/24 Meteorological Aide Relationship Specialty Start Date End Date Hilton Pena MD [address] [place] [address] PCP - General Family Medicine 03/29/19 [place] [address] [place] [address] Specialty Cultural Anthropology Professor Hematology/Oncology 02/10/23 [place] [address] [place], [place] [phone] Specialty Cultural Anthropology Professor Radiation Oncology 02/16/23 Jennifer Valles LSW Geotechnicial Properties Technician Oncology 02/23/23 Andrew Stanton, NABILA.[employer] BENDER [address] [place] [address] [phone] Derrick Car Operator Family Medicine 12/23/24 Ruthy Valle PA-C [address] [place] [address] 24045 Derrick Car Operator Family [facility] 12/23/24 Meteorological Aide Relationship Specialty Start Date End Date Hilton Pena MD [address] [place] [address] [phone] PCP - General Family Medicine 03/29/19 [place] [address] [place] [address] Specialty Cultural Anthropology Professor Hematology/Oncology 02/10/23 Mariela Masters, CONCETTA [address] [place] [address] Specialty Cultural Anthropology Professor Radiation Oncology 02/16/23 Jennifer Valles LSW Geotechnicial Properties Technician Oncology 02/23/23 Andrew Stanton APRN.[employer] [address] [place] [address] 01209 Derrick Car Operator Family Medicine 12/23/24 Ruthy Valle PA-C [address] [place] [address] Derrick Car Operator Family [facility] 12/23/24 Meteorological Aide Relationship Specialty Start Date End Date Hilton Pena MD [address] [place] [address] PCP - General Family Medicine 03/29/19 Katey Croft, CONCETTA [address] [place] [address] Specialty Cultural Anthropology Professor Hematology/Oncology 02/10/23 Mariela Masters, CONCETTA [address] [place] [address] Specialty Cultural Anthropology Professor Radiation Oncology 02/16/23 Jennifer Valles LSW Geotechnicial Properties Technician Oncology 02/23/23 Andrew Stanton, NABILA.[employer] T[employer]BE BENDER [address] [place] [address] 14576 Derrick Car Operator Family Medicine 12/23/24 Ruthy Valle PA-C [address] [place] [address] [facility] 12/23/24 Meteorological Aide Relationship Specialty Start Date End Date Hilton Pena MD [address] [place] [address] PCP - General Family Medicine 03/29/19 Katey Croft, CONCETTA [address] [place] [address] Specialty Cultural Anthropology Professor Hematology/Oncology 02/10/23 Mariela Masters, CONCETTA [address] [place] [address] Specialty Cultural Anthropology Professor Radiation Oncology 02/16/23 Jennifer Valles LSW Geotechnicial Properties Technician Oncology 02/23/23 Andrew Stanton, NABILA.[employer]ER [address] [place] [address] 69945 Derrick Car Operator Family Medicine 12/23/24 Ruthy Valle PA-C [address] [place] [address] Derrick Car Operator Family Medicine 12/23/24 [place] [address] [place] [address] Hematology/Oncology 01/01/25 Meteorological Aide Relationship Specialty Start Date End Date Hilton Pena MD [address] [place] [address] 74610 PCP - General Family Medicine 03/29/19 Katey Croft, CONCETTA [address] [place] [address] Specialty Cultural Anthropology Professor Hematology/Oncology 02/10/23 Mariela Masters, CONCETTA [address] [place] [address] Specialty Cultural Anthropology Professor Radiation Oncology 02/16/23 Jennifer Valles LSW Geotechnicial Properties Technician Oncology 02/23/23 Andrew Stanton APRN.[facility] [address] [place] [address] 62917 Derrick Car Operator Family Medicine 12/23/24 Ruthy Valle PA-C [address] [place] [address] [phone] Derrick Car Operator Family Medicine 12/23/24 Jaime Beatty MD [address] [place] [address] 14358 Hematology/Oncology 01/01/25 Meteorological Aide Relationship Specialty Start Date End Date Hilton Pena MD [address] [place] [address] 27268 PCP - General Family Medicine 03/29/19 Katey Croft, CONCETTA [address] [place], [place] 5892006 Specialty Cultural Anthropology Professor Hematology/Oncology 02/10/23 Mariela Masters, CONCETTA [address] [place], [place] [phone] Specialty Cultural Anthropology Professor Radiation Oncology 02/16/23 Jennifer Valles LSW Geotechnicial Properties Technician Oncology 02/23/23 Andrew Stanton, NABILA.[employer] T[employer] BENDER [address] [place] [address] [phone] Derrick Car Operator Family Medicine 12/23/24 Ruthy Valle PA-C [address] [place] [address] [phone] Derrick Car Operator Family Medicine 12/23/24 Jaime Beatty MD [address] [place] [address] [phone] Hematology/Oncology 01/01/25 Meteorological Aide Relationship Specialty Start Date End Date Hilton Pena MD [address] [place] [address] 86115 PCP - General Family Medicine 03/29/19 Katey Croft, CONCETTA [address] [place] [address] Specialty Cultural Anthropology Professor Hematology/Oncology 02/10/23 Mariela Masters, CONCETTA [address] [place], [place] [phone] Specialty Cultural Anthropology Professor Radiation Oncology 02/16/23 Jennifer Valles LSW Geotechnicial Properties Technician Oncology 02/23/23 Andrew Stanton, NABILA.[employer] T[employer] BENDER [address] [place] [address] [phone] Derrick Car Operator Family Medicine 12/23/24 Ruthy Valle PA-C [address] [place], [place] 191551 Derrick Car Operator Family Medicine 12/23/24 [place] [address] [place] [address] Hematology/Oncology 01/01/25 Meteorological Aide Relationship Specialty Start Date End Date Hilton Pena MD [address] [place] [address] PCP - General Family Medicine 03/29/19 Katey Croft, CONCETTA [address] [place] [address] Specialty Cultural Anthropology Professor Hematology/Oncology 02/10/23 [place] [address] [place] [address] Specialty Cultural Anthropology Professor Radiation Oncology 02/16/23 Jennifer Valles LSW Geotechnicial Properties Technician Oncology 02/23/23 Andrew Stanton, NABILA.[employer] BENDER [address] [place] [address] 83831 Derrick Car Operator Family Medicine 06/29/24 12/08/24 Ruthy Valle PA-C [address] [place] [address] Derrick Car Operator Family Medicine 06/29/24 12/22/24 Andrew Stanton, NABILA.[employer] TUBE BENDER [facility] [place] [address] Derrick Car Operator Family Medicine 12/23/24 Ruthy Valle PA-C [address] [place] [address] Derrick Car Operator Family Medicine 12/23/24 Jaime Beatty MD [address] [place] [address] [phone] Hematology/Oncology 01/01/25 Meteorological Aide Relationship Specialty Start Date End Date Hilton Pena MD [address] [place] [address] PCP - General Family Medicine 03/29/19 [place] [address] [place] [address] Specialty Cultural Anthropology Professor Hematology/Oncology 02/10/23 Mariela Masters, CONCETTA [address] [place] [address] Specialty Cultural Anthropology Professor Radiation Oncology 02/16/23 Jennifer Valles LSW Geotechnicial Properties Technician Oncology 02/23/23 Andrew Stanton, NABILA.[facility] [address] [place] [address] 07084 Derrick Car Operator Family Medicine 12/23/24 Ruthy Valle PA-C [address] [place] [address] 59001 Derrick Car Operator Family [facility] 12/23/24 Jaime Beatty MD [address] [place] [address] [phone] Hematology/Oncology 01/01/25 Meteorological Aide Relationship Specialty Start Date End Date Hilton Pena MD [address] [place] [address] 24416 PCP - General Family Medicine 03/29/19 Katey Croft, CONCETTA [address] [place] [address] Specialty Cultural Anthropology Professor Hematology/Oncology 02/10/23 Mariela Masters, CONCETTA [address] [place] [address] Specialty Cultural Anthropology Professor Radiation Oncology 02/16/23 Jennifer Valles LSW Geotechnicial Properties Technician Oncology 02/23/23 Andrew Stanton APRN.[employer] BENDER [facility] [place], [place] [phone] Derrick Car Operator Family Medicine 12/23/24 Ruthy Valle PA-C [address] [place] [address] 88307 Derrick Car Operator Family Medicine 12/23/24 Jaime Beatty MD [address] [place] [address] 03905 Hematology/Oncology 01/01/25 Meteorological Aide Relationship Specialty Start Date End Date Hilton Pena MD [address] [place] [address] 039001 PCP - General Family Medicine 03/29/19 Katey Croft, CONCETTA [address] [place] [address] Specialty Cultural Anthropology Professor Hematology/Oncology 02/10/23 Mariela Masters, CONCETTA [address] [place] [address] Specialty Cultural Anthropology Professor Radiation Oncology 02/16/23 Jennifer Valles LSW Geotechnicial Properties Technician Oncology 02/23/23 Andrew Stanton, NABILA.[employer] BENDER [address] [place] [address] [phone] Derrick Car Operator Family Medicine 12/23/24 Ruthy Valle PA-C [address] [place] [address] 90230 Derrick Car Operator Family Medicine 12/23/24 [place] [address] [place], [place] [phone] Hematology/Oncology 01/01/25 Meteorological Aide Relationship Specialty Start Date End Date Hilton Pena MD [address] [place] [address] 98141 PCP - General Family Medicine 03/29/19 Katey Croft, CONCETTA [address] [place], [place] [phone] Specialty Cultural Anthropology Professor Hematology/Oncology 02/10/23 Mariela Masters, CONCETTA [address] [place] [address] [phone] Specialty Cultural Anthropology Professor Radiation Oncology 02/16/23 Jennifer Valles LSW Geotechnicial Properties Technician Oncology 02/23/23 Andrew Stanton APRN.[facility] [address] [place] [address] [phone] Derrick Car Operator Family Medicine 12/23/24 Ruthy Valle PA-C [address] [place] [address] 96556 Derrick Car Operator Family Medicine 12/23/24 Jaime Beatty MD [address] [place] [address] 91082 Hematology/Oncology 01/01/25 Meteorological Aide Relationship Specialty Start Date End Date Hilton Pena MD [address] [place] [address] 21710 PCP - General Family Medicine 03/29/19 Katey Croft, CONCETTA [address] [place] [address] Specialty Cultural Anthropology Professor Hematology/Oncology 02/10/23 [place] [address] [place], [place] [phone] Specialty Cultural Anthropology Professor Radiation Oncology 02/16/23 Jennifer Valles LSW Geotechnicial Properties Technician Oncology 02/23/23 Andrew Stanton, NABILA.[employer] B[employer]ER [address] [place], [place] [phone] Derrick Car Operator Family Medicine 12/23/24 Ruthy Valle PA-C [address] [place], [place] 951531 Derrick Car Operator Family Medicine 12/23/24 [place] [address] [place] [address] Hematology/Oncology 01/01/25 Meteorological Aide Relationship Specialty Start Date End Date Hilton Pena MD [address] [place] [address] PCP - General Family Medicine 03/29/19 Katey Croft, CONCETTA [address] [place] [address] Specialty Cultural Anthropology Professor Hematology/Oncology 02/10/23 Mariela Masters, CONCETTA [address] [place] [address] Specialty Cultural Anthropology Professor Radiation Oncology 02/16/23 Jennifer Valles LSW Geotechnicial Properties Technician Oncology 02/23/23 Andrew Stanton, NABILA.[employer] T[employer]BE BENDER [address] [place] [address] Derrick Car Operator Family Medicine 12/23/24 Ruthy Valle PA-C [address] [place] [address] Derrick Car Operator Family Medicine 12/23/24 [place] [address] [place] [address] Hematology/Oncology 01/01/25 Meteorological Aide Relationship Specialty Start Date End Date Hilton Pena MD [address] [place] [address] PCP - General Family Medicine 03/29/19 Katey Croft, CONCETTA [address] [place] [address] Specialty Cultural Anthropology Professor Hematology/Oncology 02/10/23 Mariela Masters, CONCETTA [address]157 [place], [place] [phone] Specialty Cultural Anthropology Professor Radiation Oncology 02/16/23 Jennifer Valles LSW Geotechnicial Properties Technician Oncology 02/23/23 Andrew Stanton, NABILA.[employer] T[employer] BENDER [address] [place] [address] 82694 Derrick Car Operator Family [facility] 12/23/24 Ruthy Valle PA-C [address] [place] [address] 54476 Derrick Car Operator Family [facility] 12/23/24 Jaime Beatty MD [address] [place] [address] [phone] Hematology/Oncology 01/01/25 Meteorological Aide Relationship Specialty Start Date End Date Hilton Pena MD [address] [place] [address] PCP - General Family Medicine 03/29/19 [place] [address] [place], [place] [phone] Specialty Cultural Anthropology Professor Hematology/Oncology 02/10/23 Mariela Masters, CONCETTA [address] [place], [place] [phone] Specialty Cultural Anthropology Professor Radiation Oncology 02/16/23 Jennifer Valles LSW Geotechnicial Properties Technician Oncology 02/23/23 Andrew Stanton, NABILA.[employer] B[employer]ER [address] [place] [address] 87828 Derrick Car Operator Family Medicine 12/23/24 Ruthy Valle PA-C [address] [place] [address] Derrick Car Operator Family Medicine 12/23/24 [place] [address] [place] [address] Hematology/Oncology 01/01/25 Meteorological Aide Relationship Specialty Start Date End Date Hilton Pena MD [address] [place] [address] 51391 PCP - General Family Medicine 03/29/19 Katey Croft, CONCETTA [address]16 [place] [address] Specialty Cultural Anthropology Professor Hematology/Oncology 02/10/23 Mariela Masters, CONCETTA [address] [place] [address] Specialty Cultural Anthropology Professor Radiation Oncology 02/16/23 Jennifer Valles LSW Geotechnicial Properties Technician Oncology 02/23/23 Andrew Stanton APRN.[facility] [address] [place] [address] 53435 Derrick Car Operator Family Medicine 12/23/24 Ruthy Valle PA-C [address] [place] [address] [phone] Derrick Car Operator Family Medicine 12/23/24 Jaime Beatty MD [address] [place] [address] 12694 Hematology/Oncology 01/01/25 Meteorological Aide Relationship Specialty Start Date End Date Hilton Pena MD [address] [place] [address] 80511 PCP - General Family Medicine 03/29/19 [place] [address] [place] [phone] Specialty Cultural Anthropology Professor Hematology/Oncology 02/10/23 [place] [address] [place] [address] Specialty Cultural Anthropology Professor Radiation Oncology 02/16/23 Jennifer Valles LSW Geotechnicial Properties Technician Oncology 02/23/23 Andrew Stanton APRN.[facility] [address] [place] [address] [facility] 12/23/24 Ruthy Valle PA-C [address] [place] [address] 44691 [facility] 12/23/24 [place] [address] [place] [address] Hematology/Oncology 01/01/25 Source Comments (unrecognize d section and content) In the event this informatio n is protected by the [facility] Confidentiality of Alcohol and Drug Abuse Patient Records regulations: The Federal rules restrict any use of the information to criminally investigate or prosecute any alcohol or drug abuse patient.[facility] HospitalIn the event this information is protected by the Federal Confidentiality of Alcohol and Drug Abuse Patient Records regulations: The Federal rules restrict any use of the information to criminally investigate or prosecute any alcohol or drug abuse patient.[facility] HospitalIn the event this information is protected by the Federal Confidentiality of Alcohol and Drug Abuse Patient Records regulations: The Federal rules restrict any use of the information to criminally investigate or prosecute any alcohol or drug abuse patient.[facility]In the event this information is protected by the Federal Confidentiality of Alcohol and Drug Abuse Patient Records regulations: The Federal rules restrict any use of the information to criminally investigate or prosecute any alcohol or drug abuse patient.[facility] HospitalIn the event this information is protected by the Federal Confidentiality of Alcohol and Drug Abuse Patient Records regulations: The Federal rules restrict any use of the information to criminally investigate or prosecute any alcohol or drug abuse patient.[facility] HospitalIn the event this information is protected by the Federal Confidentiality of Alcohol and Drug Abuse Patient Records regulations: The Federal rules restrict any use of the information to criminally investigate or prosecute any alcohol or drug abuse patient.[facility] HospitalIn the event this information is protected by the Federal Confidentiality of Alcohol and Drug Abuse Patient Records regulations: The Federal rules restrict any use of the information to criminally investigate or prosecute any alcohol or drug abuse patient.[facility] HospitalIn the event this information is protected by the Federal Confidentiality of Alcohol and Drug Abuse Patient Records regulations: The Federal rules restrict any use of the information to criminally investigate or prosecute any alcohol or drug abuse patient.[facility] HospitalIn the event this information is protected by the Federal Confidentiality of Alcohol and Drug Abuse Patient Records regulations: The Federal rules restrict any use of the information to criminally investigate or prosecute any alcohol or drug abuse patient.[facility] HospitalIn the event this information is protected by the Federal Confidentiality of Alcohol and Drug Abuse Patient Records regulations: The Federal rules restrict any use of the information to criminally investigate or prosecute any alcohol or drug abuse patient.[facility] HospitalIn the event this information is protected by the Federal Confidentiality of Alcohol and Drug Abuse Patient Records regulations: The Federal rules restrict any use of the information to criminally investigate or prosecute any alcohol or drug abuse patient.[facility] HospitalIn the event this information is protected by the Federal Confidentiality of Alcohol and Drug Abuse Patient Records regulations: The Federal rules restrict any use of the information to criminally investigate or prosecute any alcohol or drug abuse patient.[facility] HospitalIn the event this information is protected by the Federal Confidentiality of Alcohol and Drug Abuse Patient Records regulations: The Federal rules restrict any use of the information to criminally investigate or prosecute any alcohol or drug abuse patient.[facility] HospitalIn the event this information is protected by the Federal Confidentiality of Alcohol and Drug Abuse Patient Records regulations: The Federal rules restrict any use of the information to criminally investigate or prosecute any alcohol or drug abuse patient.[facility] HospitalIn the event this information is protected by the Federal Confidentiality of Alcohol and Drug Abuse Patient Records regulations: The Federal rules restrict any use of the information to criminally investigate or prosecute any alcohol or drug abuse patient.[facility] HospitalIn the event this information is protected by the Federal Confidentiality of Alcohol and Drug Abuse Patient Records regulations: The Federal rules restrict any use of the information to criminally investigate or prosecute any alcohol or drug abuse patient.[facility] HospitalIn the event this information is protected by the Federal Confidentiality of Alcohol and Drug Abuse Patient Records regulations: The Federal rules restrict any use of the information to criminally investigate or prosecute any alcohol or drug abuse patient.[facility] HospitalIn the event this information is protected by the Federal Confidentiality of Alcohol and Drug Abuse Patient Records regulations: The Federal rules restrict any use of the information to criminally investigate or prosecute any alcohol or drug abuse patient.[facility] HospitalIn the event this information is protected by the Federal Confidentiality of Alcohol and Drug Abuse Patient Records regulations: The Federal rules restrict any use of the information to criminally investigate or prosecute any alcohol or drug abuse patient.[facility] HospitalIn the event this information is protected by the Federal Confidentiality of Alcohol and Drug Abuse Patient Records regulations: The Federal rules restrict any use of the information to criminally investigate or prosecute any alcohol or drug abuse patient.[facility] HospitalIn the event this information is protected by the Federal Confidentiality of Alcohol and Drug Abuse Patient Records regulations: The Federal rules restrict any use of the information to criminally investigate or prosecute any alcohol or drug abuse patient.[facility] HospitalIn the event this information is protected by the Federal Confidentiality of Alcohol and Drug Abuse Patient Records regulations: The Federal rules restrict any use of the information to criminally investigate or prosecute any alcohol or drug abuse patient.[facility] HospitalIn the event this information is protected by the Federal Confidentiality of Alcohol and Drug Abuse Patient Records regulations: The Federal rules restrict any use of the information to criminally investigate or prosecute any alcohol or drug abuse patient.[facility] HospitalIn the event this information is protected by the Federal Confidentiality of Alcohol and Drug Abuse Patient Records regulations: The Federal rules restrict any use of the information to criminally investigate or prosecute any alcohol or drug abuse patient.[facility] HospitalIn the event this information is protected by the Federal Confidentiality of Alcohol and Drug Abuse Patient Records regulations: The Federal rules restrict any use of the information to criminally investigate or prosecute any alcohol or drug abuse patient.[facility] HospitalIn the event this information is protected by the Federal Confidentiality of Alcohol and Drug Abuse Patient Records regulations: The Federal rules restrict any use of the information to criminally investigate or prosecute any alcohol or drug abuse patient.[facility] HospitalIn the event this information is protected by the Federal Confidentiality of Alcohol and Drug Abuse Patient Records regulations: The Federal rules restrict any use of the information to criminally investigate or prosecute any alcohol or drug abuse patient.[facility] HospitalIn the event this information is protected by the Federal Confidentiality of Alcohol and Drug Abuse Patient Records regulations: The Federal rules restrict any use of the information to criminally investigate or prosecute any alcohol or drug abuse patient.[facility] HospitalIn the event this information is protected by the Federal Confidentiality of Alcohol and Drug Abuse Patient Records regulations: The Federal rules restrict any use of the information to criminally investigate or prosecute any alcohol or drug abuse patient.[facility] HospitalIn the event this information is protected by the Federal Confidentiality of Alcohol and Drug Abuse Patient Records regulations: The Federal rules restrict any use of the information to criminally investigate or prosecute any alcohol or drug abuse patient.[facility] HospitalIn the event this information is protected by the Federal Confidentiality of Alcohol and Drug Abuse Patient Records regulations: The Federal rules restrict any use of the information to criminally investigate or prosecute any alcohol or drug abuse patient.[facility] HospitalIn the event this information is protected by the Federal Confidentiality of Alcohol and Drug Abuse Patient Records regulations: The Federal rules restrict any use of the information to criminally investigate or prosecute any alcohol or drug abuse patient.[facility] HospitalIn the event this information is protected by the Federal Confidentiality of Alcohol and Drug Abuse Patient Records regulations: The Federal rules restrict any use of the information to criminally investigate or prosecute any alcohol or drug abuse patient.[facility] HospitalIn the event this information is protected by the Federal Confidentiality of Alcohol and Drug Abuse Patient Records regulations: The Federal rules restrict any use of the information to criminally investigate or prosecute any alcohol or drug abuse patient.[facility] HospitalIn the event this information is protected by the Federal Confidentiality of Alcohol and Drug Abuse Patient Records regulations: The Federal rules restrict any use of the information to criminally investigate or prosecute any alcohol or drug abuse patient.[facility] HospitalIn the event this information is protected by the Federal Confidentiality of Alcohol and Drug Abuse Patient Records regulations: The Federal rules restrict any use of the information to criminally investigate or prosecute any alcohol or drug abuse patient.[facility] HospitalIn the event this information is protected by the Federal Confidentiality of Alcohol and Drug Abuse Patient Records regulations: The Federal rules restrict any use of the information to criminally investigate or prosecute any alcohol or drug abuse patient.[facility] HospitalIn the event this information is protected by the Federal Confidentiality of Alcohol and Drug Abuse Patient Records regulations: The Federal rules restrict any use of the information to criminally investigate or prosecute any alcohol or drug abuse patient.[facility] HospitalIn the event this information is protected by the Federal Confidentiality of Alcohol and Drug Abuse Patient Records regulations: The Federal rules restrict any use of the information to criminally investigate or prosecute any alcohol or drug abuse patient.[facility] HospitalIn the event this information is protected by the Federal Confidentiality of Alcohol and Drug Abuse Patient Records regulations: The Federal rules restrict any use of the information to criminally investigate or prosecute any alcohol or drug abuse patient.[facility] HospitalIn the event this information is protected by the Federal Confidentiality of Alcohol and Drug Abuse Patient Records regulations: The Federal rules restrict any use of the information to criminally investigate or prosecute any alcohol or drug abuse patient.[facility] HospitalIn the event this information is protected by the Federal Confidentiality of Alcohol and Drug Abuse Patient Records regulations: The Federal rules restrict any use of the information to criminally investigate or prosecute any alcohol or drug abuse patient.[facility] HospitalIn the event this information is protected by the Federal Confidentiality of Alcohol and Drug Abuse Patient Records regulations: The Federal rules restrict any use of the information to criminally investigate or prosecute any alcohol or drug abuse patient.[facility] HospitalIn the event this information is protected by the Federal Confidentiality of Alcohol and Drug Abuse Patient Records regulations: The Federal rules restrict any use of the information to criminally investigate or prosecute any alcohol or drug abuse patient.[facility] HospitalIn the event this information is protected by the Federal Confidentiality of Alcohol and Drug Abuse Patient Records regulations: The Federal rules restrict any use of the information to criminally investigate or prosecute any alcohol or drug abuse patient.[facility] HospitalIn the event this information is protected by the Federal Confidentiality of Alcohol and Drug Abuse Patient Records regulations: The Federal rules restrict any use of the information to criminally investigate or prosecute any alcohol or drug abuse patient.[facility] HospitalIn the event this information is protected by the Federal Confidentiality of Alcohol and Drug Abuse Patient Records regulations: The Federal rules restrict any use of the information to criminally investigate or prosecute any alcohol or drug abuse patient.[facility] HospitalIn the event this information is protected by the Federal Confidentiality of Alcohol and Drug Abuse Patient Records regulations: The Federal rules restrict any use of the information to criminally investigate or prosecute any alcohol or drug abuse patient.[facility] HospitalIn the event this information is protected by the Federal Confidentiality of Alcohol and Drug Abuse Patient Records regulations: The Federal rules restrict any use of the information to criminally investigate or prosecute any alcohol or drug abuse patient.[facility] HospitalIn the event this information is protected by the Federal Confidentiality of Alcohol and Drug Abuse Patient Records regulations: The Federal rules restrict any use of the information to criminally investigate or prosecute any alcohol or drug abuse patient.[facility] HospitalIn the event this information is protected by the Federal Confidentiality of Alcohol and Drug Abuse Patient Records regulations: The Federal rules restrict any use of the information to criminally investigate or prosecute any alcohol or drug abuse patient.[facility] HospitalIn the event this information is protected by the Federal Confidentiality of Alcohol and Drug Abuse Patient Records regulations: The Federal rules restrict any use of the information to criminally investigate or prosecute any alcohol or drug abuse patient.[facility] HospitalIn the event this information is protected by the Federal Confidentiality of Alcohol and Drug Abuse Patient Records regulations: The Federal rules restrict any use of the information to criminally investigate or prosecute any alcohol or drug abuse patient.[facility] HospitalIn the event this information is protected by the Federal Confidentiality of Alcohol and Drug Abuse Patient Records regulations: The Federal rules restrict any use of the information to criminally investigate or prosecute any alcohol or drug abuse patient.[facility] HospitalIn the event this information is protected by the Federal Confidentiality of Alcohol and Drug Abuse Patient Records regulations: The Federal rules restrict any use of the information to criminally investigate or prosecute any alcohol or drug abuse patient.[facility] HospitalIn the event this information is protected by the Federal Confidentiality of Alcohol and Drug Abuse Patient Records regulations: The Federal rules restrict any use of the information to criminally investigate or prosecute any alcohol or drug abuse patient.[facility] HospitalIn the event this information is protected by the Federal Confidentiality of Alcohol and Drug Abuse Patient Records regulations: The Federal rules restrict any use of the information to criminally investigate or prosecute any alcohol or drug abuse patient.[facility] HospitalIn the event this information is protected by the Federal Confidentiality of Alcohol and Drug Abuse Patient Records regulations: The Federal rules restrict any use of the information to criminally investigate or prosecute any alcohol or drug abuse patient.[facility] HospitalIn the event this information is protected by the Federal Confidentiality of Alcohol and Drug Abuse Patient Records regulations: The Federal rules restrict any use of the information to criminally investigate or prosecute any alcohol or drug abuse patient.[facility] HospitalIn the event this information is protected by the Federal Confidentiality of Alcohol and Drug Abuse Patient Records regulations: The Federal rules restrict any use of the information to criminally investigate or prosecute any alcohol or drug abuse patient.[facility] HospitalIn the event this information is protected by the Federal Confidentiality of Alcohol and Drug Abuse Patient Records regulations: The Federal rules restrict any use of the information to criminally investigate or prosecute any alcohol or drug abuse patient.[facility] HospitalIn the event this information is protected by the Federal Confidentiality of Alcohol and Drug Abuse Patient Records regulations: The Federal rules restrict any use of the information to criminally investigate or prosecute any alcohol or drug abuse patient.[facility] HospitalIn the event this information is protected by the Federal Confidentiality of Alcohol and Drug Abuse Patient Records regulations: The Federal rules restrict any use of the information to criminally investigate or prosecute any alcohol or drug abuse patient.[facility] HospitalIn the event this information is protected by the Federal Confidentiality of Alcohol and Drug Abuse Patient Records regulations: The Federal rules restrict any use of the information to criminally investigate or prosecute any alcohol or drug abuse patient.[facility] HospitalIn the event this information is protected by the Federal Confidentiality of Alcohol and Drug Abuse Patient Records regulations: The Federal rules restrict any use of the information to criminally investigate or prosecute any alcohol or drug abuse patient.[facility] HospitalIn the event this information is protected by the Federal Confidentiality of Alcohol and Drug Abuse Patient Records regulations: The Federal rules restrict any use of the information to criminally investigate or prosecute any alcohol or drug abuse patient.[facility] HospitalIn the event this information is protected by the Federal Confidentiality of Alcohol and Drug Abuse Patient Records regulations: The Federal rules restrict any use of the information to criminally investigate or prosecute any alcohol or drug abuse patient.[facility] HospitalIn the event this information is protected by the Federal Confidentiality of Alcohol and Drug Abuse Patient Records regulations: The Federal rules restrict any use of the information to criminally investigate or prosecute any alcohol or drug abuse patient.[facility] HospitalIn the event this information is protected by the Federal Confidentiality of Alcohol and Drug Abuse Patient Records regulations: The Federal rules restrict any use of the information to criminally investigate or prosecute any alcohol or drug abuse patient.[facility] HospitalIn the event this information is protected by the Federal Confidentiality of Alcohol and Drug Abuse Patient Records regulations: The Federal rules restrict any use of the information to criminally investigate or prosecute any alcohol or drug abuse patient.[facility] HospitalIn the event this information is protected by the Federal Confidentiality of Alcohol and Drug Abuse Patient Records regulations: The Federal rules restrict any use of the information to criminally investigate or prosecute any alcohol or drug abuse patient.[facility] HospitalIn the event this information is protected by the Federal Confidentiality of Alcohol and Drug Abuse Patient Records regulations: The Federal rules restrict any use of the information to criminally investigate or prosecute any alcohol or drug abuse patient.[facility] HospitalIn the event this information is protected by the Federal Confidentiality of Alcohol and Drug Abuse Patient Records regulations: The Federal rules restrict any use of the information to criminally investigate or prosecute any alcohol or drug abuse patient.[facility] HospitalIn the event this information is protected by the Federal Confidentiality of Alcohol and Drug Abuse Patient Records regulations: The Federal rules restrict any use of the information to criminally investigate or prosecute any alcohol or drug abuse patient.[facility] HospitalIn the event this information is protected by the Federal Confidentiality of Alcohol and Drug Abuse Patient Records regulations: The Federal rules restrict any use of the information to criminally investigate or prosecute any alcohol or drug abuse patient.[facility] HospitalIn the event this information is protected by the Federal Confidentiality of Alcohol and Drug Abuse Patient Records regulations: The Federal rules restrict any use of the information to criminally investigate or prosecute any alcohol or drug abuse patient.[facility] HospitalIn the event this information is protected by the Federal Confidentiality of Alcohol and Drug Abuse Patient Records regulations: The Federal rules restrict any use of the information to criminally investigate or prosecute any alcohol or drug abuse patient.[facility] HospitalIn the event this information is protected by the Federal Confidentiality of Alcohol and Drug Abuse Patient Records regulations: The Federal rules restrict any use of the information to criminally investigate or prosecute any alcohol or drug abuse patient.[facility] HospitalIn the event this information is protected by the Federal Confidentiality of Alcohol and Drug Abuse Patient Records regulations: The Federal rules restrict any use of the information to criminally investigate or prosecute any alcohol or drug abuse patient.[facility] HospitalIn the event this information is protected by the Federal Confidentiality of Alcohol and Drug Abuse Patient Records regulations: The Federal rules restrict any use of the information to criminally investigate or prosecute any alcohol or drug abuse patient.[facility] HospitalIn the event this information is protected by the Federal Confidentiality of Alcohol and Drug Abuse Patient Records regulations: The Federal rules restrict any use of the information to criminally investigate or prosecute any alcohol or drug abuse patient.[facility] HospitalIn the event this information is protected by the Federal Confidentiality of Alcohol and Drug Abuse Patient Records regulations: The Federal rules restrict any use of the information to criminally investigate or prosecute any alcohol or drug abuse patient.[facility] HospitalIn the event this information is protected by the Federal Confidentiality of Alcohol and Drug Abuse Patient Records regulations: The Federal rules restrict any use of the information to criminally investigate or prosecute any alcohol or drug abuse patient.[facility] HospitalIn the event this information is protected by the Federal Confidentiality of Alcohol and Drug Abuse Patient Records regulations: The Federal rules restrict any use of the information to criminally investigate or prosecute any alcohol or drug abuse patient.[facility] HospitalIn the event this information is protected by the Federal Confidentiality of Alcohol and Drug Abuse Patient Records regulations: The Federal rules restrict any use of the information to criminally investigate or prosecute any alcohol or drug abuse patient.[facility] HospitalIn the event this information is protected by the Federal Confidentiality of Alcohol and Drug Abuse Patient Records regulations: The Federal rules restrict any use of the information to criminally investigate or prosecute any alcohol or drug abuse patient.[facility] HospitalIn the event this information is protected by the Federal Confidentiality of Alcohol and Drug Abuse Patient Records regulations: The Federal rules restrict any use of the information to criminally investigate or prosecute any alcohol or drug abuse patient.[facility] HospitalIn the event this information is protected by the Federal Confidentiality of Alcohol and Drug Abuse Patient Records regulations: The Federal rules restrict any use of the information to criminally investigate or prosecute any alcohol or drug abuse patient.[facility] HospitalIn the event this information is protected by the Federal Confidentiality of Alcohol and Drug Abuse Patient Records regulations: The Federal rules restrict any use of the information to criminally investigate or prosecute any alcohol or drug abuse patient.[facility] HospitalIn the event this information is protected by the Federal Confidentiality of Alcohol and Drug Abuse Patient Records regulations: The Federal rules restrict any use of the information to criminally investigate or prosecute any alcohol or drug abuse patient.[facility] HospitalIn the event this information is protected by the Federal Confidentiality of Alcohol and Drug Abuse Patient Records regulations: The Federal rules restrict any use of the information to criminally investigate or prosecute any alcohol or drug abuse patient.[facility]In the event this information is protected by the Federal Confidentiality of Alcohol and Drug Abuse Patient Records regulations: The Federal rules restrict any use of the information to criminally investigate or prosecute any alcohol or drug abuse patient.[facility] HospitalIn the event this information is protected by the Federal Confidentiality of Alcohol and Drug Abuse Patient Records regulations: The Federal rules restrict any use of the information to criminally investigate or prosecute any alcohol or drug abuse patient.[facility] HospitalIn the event this information is protected by the Federal Confidentiality of Alcohol and Drug Abuse Patient Records regulations: The Federal rules restrict any use of the information to criminally investigate or prosecute any alcohol or drug abuse patient.[facility] HospitalIn the event this information is protected by the Federal Confidentiality of Alcohol and Drug Abuse Patient Records regulations: The Federal rules restrict any use of the information to criminally investigate or prosecute any alcohol or drug abuse patient.[facility] HospitalIn the event this information is protected by the Federal Confidentiality of Alcohol and Drug Abuse Patient Records regulations: The Federal rules restrict any use of the information to criminally investigate or prosecute any alcohol or drug abuse patient.[facility] HospitalIn the event this information is protected by the Federal Confidentiality of Alcohol and Drug Abuse Patient Records regulations: The Federal rules restrict any use of the information to criminally investigate or prosecute any alcohol or drug abuse patient.[facility] HospitalIn the event this information is protected by the Federal Confidentiality of Alcohol and Drug Abuse Patient Records regulations: The Federal rules restrict any use of the information to criminally investigate or prosecute any alcohol or drug abuse patient.[facility] HospitalIn the event this information is protected by the Federal Confidentiality of Alcohol and Drug Abuse Patient Records regulations: The Federal rules restrict any use of the information to criminally investigate or prosecute any alcohol or drug abuse patient.[facility] HospitalIn the event this information is protected by the Federal Confidentiality of Alcohol and Drug Abuse Patient Records regulations: The Federal rules restrict any use of the information to criminally investigate or prosecute any alcohol or drug abuse patient.[facility] HospitalIn the event this information is protected by the Federal Confidentiality of Alcohol and Drug Abuse Patient Records regulations: The Federal rules restrict any use of the information to criminally investigate or prosecute any alcohol or drug abuse patient.[facility] HospitalIn the event this information is protected by the Federal Confidentiality of Alcohol and Drug Abuse Patient Records regulations: The Federal rules restrict any use of the information to criminally investigate or prosecute any alcohol or drug abuse patient.[facility] HospitalIn the event this information is protected by the Federal Confidentiality of Alcohol and Drug Abuse Patient Records regulations: The Federal rules restrict any use of the information to criminally investigate or prosecute any alcohol or drug abuse patient.[facility] HospitalIn the event this information is protected by the Federal Confidentiality of Alcohol and Drug Abuse Patient Records regulations: The Federal rules restrict any use of the information to criminally investigate or prosecute any alcohol or drug abuse patient.[facility] HospitalIn the event this information is protected by the Federal Confidentiality of Alcohol and Drug Abuse Patient Records regulations: The Federal rules restrict any use of the information to criminally investigate or prosecute any alcohol or drug abuse patient.[facility] HospitalIn the event this information is protected by the Federal Confidentiality of Alcohol and Drug Abuse Patient Records regulations: The Federal rules restrict any use of the information to criminally investigate or prosecute any alcohol or drug abuse patient.[facility] HospitalIn the event this information is protected by the Federal Confidentiality of Alcohol and Drug Abuse Patient Records regulations: The Federal rules restrict any use of the information to criminally investigate or prosecute any alcohol or drug abuse patient.[facility] HospitalIn the event this information is protected by the Federal Confidentiality of Alcohol and Drug Abuse Patient Records regulations: The Federal rules restrict any use of the information to criminally investigate or prosecute any alcohol or drug abuse patient.[facility] HospitalIn the event this information is protected by the Federal Confidentiality of Alcohol and Drug Abuse Patient Records regulations: The Federal rules restrict any use of the information to criminally investigate or prosecute any alcohol or drug abuse patient.[facility] HospitalIn the event this information is protected by the Federal Confidentiality of Alcohol and Drug Abuse Patient Records regulations: The Federal rules restrict any use of the information to criminally investigate or prosecute any alcohol or drug abuse patient.[facility] HospitalIn the event this information is protected by the Federal Confidentiality of Alcohol and Drug Abuse Patient Records regulations: The Federal rules restrict any use of the information to criminally investigate or prosecute any alcohol or drug abuse patient.[facility] HospitalIn the event this information is protected by the Federal Confidentiality of Alcohol and Drug Abuse Patient Records regulations: The Federal rules restrict any use of the information to criminally investigate or prosecute any alcohol or drug abuse patient.[facility] HospitalIn the event this information is protected by the Federal Confidentiality of Alcohol and Drug Abuse Patient Records regulations: The Federal rules restrict any use of the information to criminally investigate or prosecute any alcohol or drug abuse patient.[facility] HospitalIn the event this information is protected by the Federal Confidentiality of Alcohol and Drug Abuse Patient Records regulations: The Federal rules restrict any use of the information to criminally investigate or prosecute any alcohol or drug abuse patient.[facility] HospitalIn the event this information is protected by the Federal Confidentiality of Alcohol and Drug Abuse Patient Records regulations: The Federal rules restrict any use of the information to criminally investigate or prosecute any alcohol or drug abuse patient.[facility] HospitalIn the event this information is protected by the Federal Confidentiality of Alcohol and Drug Abuse Patient Records regulations: The Federal rules restrict any use of the information to criminally investigate or prosecute any alcohol or drug abuse patient.[facility] HospitalIn the event this information is protected by the Federal Confidentiality of Alcohol and Drug Abuse Patient Records regulations: The Federal rules restrict any use of the information to criminally investigate or prosecute any alcohol or drug abuse patient.[facility] HospitalIn the event this information is protected by the Federal Confidentiality of Alcohol and Drug Abuse Patient Records regulations: The Federal rules restrict any use of the information to criminally investigate or prosecute any alcohol or drug abuse patient.[facility] HospitalIn the event this information is protected by the Federal Confidentiality of Alcohol and Drug Abuse Patient Records regulations: The Federal rules restrict any use of the information to criminally investigate or prosecute any alcohol or drug abuse patient.[facility] HospitalIn the event this information is protected by the Federal Confidentiality of Alcohol and Drug Abuse Patient Records regulations: The Federal rules restrict any use of the information to criminally investigate or prosecute any alcohol or drug abuse patient.[facility] HospitalIn the event this information is protected by the Federal Confidentiality of Alcohol and Drug Abuse Patient Records regulations: The Federal rules restrict any use of the information to criminally investigate or prosecute any alcohol or drug abuse patient.[facility] HospitalIn the event this information is protected by the Federal Confidentiality of Alcohol and Drug Abuse Patient Records regulations: The Federal rules restrict any use of the information to criminally investigate or prosecute any alcohol or drug abuse patient.[facility] HospitalIn the event this information is protected by the Federal Confidentiality of Alcohol and Drug Abuse Patient Records regulations: The Federal rules restrict any use of the information to criminally investigate or prosecute any alcohol or drug abuse patient.[facility] HospitalIn the event this information is protected by the Federal Confidentiality of Alcohol and Drug Abuse Patient Records regulations: The Federal rules restrict any use of the information to criminally investigate or prosecute any alcohol or drug abuse patient.[facility] HospitalIn the event this information is protected by the Federal Confidentiality of Alcohol and Drug Abuse Patient Records regulations: The Federal rules restrict any use of the information to criminally investigate or prosecute any alcohol or drug abuse patient.[facility] HospitalIn the event this information is protected by the Federal Confidentiality of Alcohol and Drug Abuse Patient Records regulations: The Federal rules restrict any use of the information to criminally investigate or prosecute any alcohol or drug abuse patient.[facility] HospitalIn the event this information is protected by the Federal Confidentiality of Alcohol and Drug Abuse Patient Records regulations: The Federal rules restrict any use of the information to criminally investigate or prosecute any alcohol or drug abuse patient.[facility] HospitalIn the event this information is protected by the Federal Confidentiality of Alcohol and Drug Abuse Patient Records regulations: The Federal rules restrict any use of the information to criminally investigate or prosecute any alcohol or drug abuse patient.[facility] HospitalIn the event this information is protected by the Federal Confidentiality of Alcohol and Drug Abuse Patient Records regulations: The Federal rules restrict any use of the information to criminally investigate or prosecute any alcohol or drug abuse patient.[facility] HospitalIn the event this information is protected by the Federal Confidentiality of Alcohol and Drug Abuse Patient Records regulations: The Federal rules restrict any use of the information to criminally investigate or prosecute any alcohol or drug abuse patient.[facility] HospitalIn the event this information is protected by the Federal Confidentiality of Alcohol and Drug Abuse Patient Records regulations: The Federal rules restrict any use of the information to criminally investigate or prosecute any alcohol or drug abuse patient.[facility] HospitalIn the event this information is protected by the Federal Confidentiality of Alcohol and Drug Abuse Patient Records regulations: The Federal rules restrict any use of the information to criminally investigate or prosecute any alcohol or drug abuse patient.[facility] HospitalIn the event this information is protected by the Federal Confidentiality of Alcohol and Drug Abuse Patient Records regulations: The Federal rules restrict any use of the information to criminally investigate or prosecute any alcohol or drug abuse patient.[facility] HospitalIn the event this information is protected by the Federal Confidentiality of Alcohol and Drug Abuse Patient Records regulations: The Federal rules restrict any use of the information to criminally investigate or prosecute any alcohol or drug abuse patient.[facility] HospitalIn the event this information is protected by the Federal Confidentiality of Alcohol and Drug Abuse Patient Records regulations: The Federal rules restrict any use of the information to criminally investigate or prosecute any alcohol or drug abuse patient.[facility] HospitalIn the event this information is protected by the Federal Confidentiality of Alcohol and Drug Abuse Patient Records regulations: The Federal rules restrict any use of the information to criminally investigate or prosecute any alcohol or drug abuse patient.[facility] HospitalIn the event this information is protected by the Federal Confidentiality of Alcohol and Drug Abuse Patient Records regulations: The Federal rules restrict any use of the information to criminally investigate or prosecute any alcohol or drug abuse patient.[facility] HospitalIn the event this information is protected by the Federal Confidentiality of Alcohol and Drug Abuse Patient Records regulations: The Federal rules restrict any use of the information to criminally investigate or prosecute any alcohol or drug abuse patient.[facility] HospitalIn the event this information is protected by the Federal Confidentiality of Alcohol and Drug Abuse Patient Records regulations: The Federal rules restrict any use of the information to criminally investigate or prosecute any alcohol or drug abuse patient.[facility] HospitalIn the event this information is protected by the Federal Confidentiality of Alcohol and Drug Abuse Patient Records regulations: The Federal rules restrict any use of the information to criminally investigate or prosecute any alcohol or drug abuse patient.[facility] HospitalIn the event this information is protected by the Federal Confidentiality of Alcohol and Drug Abuse Patient Records regulations: The Federal rules restrict any use of the information to criminally investigate or prosecute any alcohol or drug abuse patient.[facility] HospitalIn the event this information is protected by the Federal Confidentiality of Alcohol and Drug Abuse Patient Records regulations: The Federal rules restrict any use of the information to criminally investigate or prosecute any alcohol or drug abuse patient.[facility] HospitalIn the event this information is protected by the Federal Confidentiality of Alcohol and Drug Abuse Patient Records regulations: The Federal rules restrict any use of the information to criminally investigate or prosecute any alcohol or drug abuse patient.[facility] HospitalIn the event this information is protected by the Federal Confidentiality of Alcohol and Drug Abuse Patient Records regulations: The Federal rules restrict any use of the information to criminally investigate or prosecute any alcohol or drug abuse patient.[facility] HospitalIn the event this information is protected by the Federal Confidentiality of Alcohol and Drug Abuse Patient Records regulations: The Federal rules restrict any use of the information to criminally investigate or prosecute any alcohol or drug abuse patient.[facility] HospitalIn the event this information is protected by the Federal Confidentiality of Alcohol and Drug Abuse Patient Records regulations: The Federal rules restrict any use of the information to criminally investigate or prosecute any alcohol or drug abuse patient.[facility] HospitalIn the event this information is protected by the Federal Confidentiality of Alcohol and Drug Abuse Patient Records regulations: The Federal rules restrict any use of the information to criminally investigate or prosecute any alcohol or drug abuse patient.[facility] HospitalIn the event this information is protected by the Federal Confidentiality of Alcohol and Drug Abuse Patient Records regulations: The Federal rules restrict any use of the information to criminally investigate or prosecute any alcohol or drug abuse patient.[facility] HospitalIn the event this information is protected by the Federal Confidentiality of Alcohol and Drug Abuse Patient Records regulations: The Federal rules restrict any use of the information to criminally investigate or prosecute any alcohol or drug abuse patient.[facility] HospitalIn the event this information is protected by the Federal Confidentiality of Alcohol and Drug Abuse Patient Records regulations: The Federal rules restrict any use of the information to criminally investigate or prosecute any alcohol or drug abuse patient.[facility] HospitalIn the event this information is protected by the Federal Confidentiality of Alcohol and Drug Abuse Patient Records regulations: The Federal rules restrict any use of the information to criminally investigate or prosecute any alcohol or drug abuse patient.[facility] HospitalIn the event this information is protected by the Federal Confidentiality of Alcohol and Drug Abuse Patient Records regulations: The Federal rules restrict any use of the information to criminally investigate or prosecute any alcohol or drug abuse patient.[facility] HospitalIn the event this information is protected by the Federal Confidentiality of Alcohol and Drug Abuse Patient Records regulations: The Federal rules restrict any use of the information to criminally investigate or prosecute any alcohol or drug abuse patient.[facility] HospitalIn the event this information is protected by the Federal Confidentiality of Alcohol and Drug Abuse Patient Records regulations: The Federal rules restrict any use of the information to criminally investigate or prosecute any alcohol or drug abuse patient.[facility] HospitalIn the event this information is protected by the Federal Confidentiality of Alcohol and Drug Abuse Patient Records regulations: The Federal rules restrict any use of the information to criminally investigate or prosecute any alcohol or drug abuse patient.[facility] HospitalIn the event this information is protected by the Federal Confidentiality of Alcohol and Drug Abuse Patient Records regulations: The Federal rules restrict any use of the information to criminally investigate or prosecute any alcohol or drug abuse patient.[facility] HospitalIn the event this information is protected by the Federal Confidentiality of Alcohol and Drug Abuse Patient Records regulations: The Federal rules restrict any use of the information to criminally investigate or prosecute any alcohol or drug abuse patient.[facility] HospitalIn the event this information is protected by the Federal Confidentiality of Alcohol and Drug Abuse Patient Records regulations: The Federal rules restrict any use of the information to criminally investigate or prosecute any alcohol or drug abuse patient.[facility] HospitalIn the event this information is protected by the Federal Confidentiality of Alcohol and Drug Abuse Patient Records regulations: The Federal rules restrict any use of the information to criminally investigate or prosecute any alcohol or drug abuse patient.[facility] HospitalIn the event this information is protected by the Federal Confidentiality of Alcohol and Drug Abuse Patient Records regulations: The Federal rules restrict any use of the information to criminally investigate or prosecute any alcohol or drug abuse patient.[facility] HospitalIn the event this information is protected by the Federal Confidentiality of Alcohol and Drug Abuse Patient Records regulations: The Federal rules restrict any use of the information to criminally investigate or prosecute any alcohol or drug abuse patient.[facility] HospitalIn the event this information is protected by the Federal Confidentiality of Alcohol and Drug Abuse Patient Records regulations: The Federal rules restrict any use of the information to criminally investigate or prosecute any alcohol or drug abuse patient.[facility] HospitalIn the event this information is protected by the Federal Confidentiality of Alcohol and Drug Abuse Patient Records regulations: The Federal rules restrict any use of the information to criminally investigate or prosecute any alcohol or drug abuse patient.[facility] HospitalIn the event this information is protected by the Federal Confidentiality of Alcohol and Drug Abuse Patient Records regulations: The Federal rules restrict any use of the information to criminally investigate or prosecute any alcohol or drug abuse patient.[facility] HospitalIn the event this information is protected by the Federal Confidentiality of Alcohol and Drug Abuse Patient Records regulations: The Federal rules restrict any use of the information to criminally investigate or prosecute any alcohol or drug abuse patient.[facility] HospitalIn the event this information is protected by the Federal Confidentiality of Alcohol and Drug Abuse Patient Records regulations: The Federal rules restrict any use of the information to criminally investigate or prosecute any alcohol or drug abuse patient.[facility] HospitalIn the event this information is protected by the Federal Confidentiality of Alcohol and Drug Abuse Patient Records regulations: The Federal rules restrict any use of the information to criminally investigate or prosecute any alcohol or drug abuse patient.[facility] HospitalIn the event this information is protected by the Federal Confidentiality of Alcohol and Drug Abuse Patient Records regulations: The Federal rules restrict any use of the information to criminally investigate or prosecute any alcohol or drug abuse patient.[facility] HospitalIn the event this information is protected by the Federal Confidentiality of Alcohol and Drug Abuse Patient Records regulations: The Federal rules restrict any use of the information to criminally investigate or prosecute any alcohol or drug abuse patient.[facility] HospitalIn the event this information is protected by the Federal Confidentiality of Alcohol and Drug Abuse Patient Records regulations: The Federal rules restrict any use of the information to criminally investigate or prosecute any alcohol or drug abuse patient.[facility] HospitalIn the event this information is protected by the Federal Confidentiality of Alcohol and Drug Abuse Patient Records regulations: The Federal rules restrict any use of the information to criminally investigate or prosecute any alcohol or drug abuse patient.[facility] HospitalIn the event this information is protected by the Federal Confidentiality of Alcohol and Drug Abuse Patient Records regulations: The Federal rules restrict any use of the information to criminally investigate or prosecute any alcohol or drug abuse patient.[facility] HospitalIn the event this information is protected by the Federal Confidentiality of Alcohol and Drug Abuse Patient Records regulations: The Federal rules restrict any use of the information to criminally investigate or prosecute any alcohol or drug abuse patient.[facility] HospitalIn the event this information is protected by the Federal Confidentiality of Alcohol and Drug Abuse Patient Records regulations: The Federal rules restrict any use of the information to criminally investigate or prosecute any alcohol or drug abuse patient.[facility] HospitalIn the event this information is protected by the Federal Confidentiality of Alcohol and Drug Abuse Patient Records regulations: The Federal rules restrict any use of the information to criminally investigate or prosecute any alcohol or drug abuse patient.[facility] HospitalIn the event this information is protected by the Federal Confidentiality of Alcohol and Drug Abuse Patient Records regulations: The Federal rules restrict any use of the information to criminally investigate or prosecute any alcohol or drug abuse patient.[facility] HospitalIn the event this information is protected by the Federal Confidentiality of Alcohol and Drug Abuse Patient Records regulations: The Federal rules restrict any use of the information to criminally investigate or prosecute any alcohol or drug abuse patient.[facility] HospitalIn the event this information is protected by the Federal Confidentiality of Alcohol and Drug Abuse Patient Records regulations: The Federal rules restrict any use of the information to criminally investigate or prosecute any alcohol or drug abuse patient.[facility] HospitalIn the event this information is protected by the Federal Confidentiality of Alcohol and Drug Abuse Patient Records regulations: The Federal rules restrict any use of the information to criminally investigate or prosecute any alcohol or drug abuse patient.[facility] HospitalIn the event this information is protected by the Federal Confidentiality of Alcohol and Drug Abuse Patient Records regulations: The Federal rules restrict any use of the information to criminally investigate or prosecute any alcohol or drug abuse patient.[facility] HospitalIn the event this information is protected by the Federal Confidentiality of Alcohol and Drug Abuse Patient Records regulations: The Federal rules restrict any use of the information to criminally investigate or prosecute any alcohol or drug abuse patient.[facility] HospitalIn the event this information is protected by the Federal Confidentiality of Alcohol and Drug Abuse Patient Records regulations: The Federal rules restrict any use of the information to criminally investigate or prosecute any alcohol or drug abuse patient.[facility] HospitalIn the event this information is protected by the Federal Confidentiality of Alcohol and Drug Abuse Patient Records regulations: The Federal rules restrict any use of the information to criminally investigate or prosecute any alcohol or drug abuse patient.[facility] HospitalIn the event this information is protected by the Federal Confidentiality of Alcohol and Drug Abuse Patient Records regulations: The Federal rules restrict any use of the information to criminally investigate or prosecute any alcohol or drug abuse patient.[facility] HospitalIn the event this information is protected by the Federal Confidentiality of Alcohol and Drug Abuse Patient Records regulations: The Federal rules restrict any use of the information to criminally investigate or prosecute any alcohol or drug abuse patient.[facility] HospitalIn the event this information is protected by the Federal Confidentiality of Alcohol and Drug Abuse Patient Records regulations: The Federal rules restrict any use of the information to criminally investigate or prosecute any alcohol or drug abuse patient.[facility] HospitalIn the event this information is protected by the Federal Confidentiality of Alcohol and Drug Abuse Patient Records regulations: The Federal rules restrict any use of the information to criminally investigate or prosecute any alcohol or drug abuse patient.[facility] HospitalIn the event this information is protected by the Federal Confidentiality of Alcohol and Drug Abuse Patient Records regulations: The Federal rules restrict any use of the information to criminally investigate or prosecute any alcohol or drug abuse patient.[facility] HospitalIn the event this information is protected by the Federal Confidentiality of Alcohol and Drug Abuse Patient Records regulations: The Federal rules restrict any use of the information to criminally investigate or prosecute any alcohol or drug abuse patient.[facility] HospitalIn the event this information is protected by the Federal Confidentiality of Alcohol and Drug Abuse Patient Records regulations: The Federal rules restrict any use of the information to criminally investigate or prosecute any alcohol or drug abuse patient.[facility] HospitalIn the event this information is protected by the Federal Confidentiality of Alcohol and Drug Abuse Patient Records regulations: The Federal rules restrict any use of the information to criminally investigate or prosecute any alcohol or drug abuse patient.[facility] HospitalIn the event this information is protected by the Federal Confidentiality of Alcohol and Drug Abuse Patient Records regulations: The Federal rules restrict any use of the information to criminally investigate or prosecute any alcohol or drug abuse patient.[facility] HospitalIn the event this information is protected by the Federal Confidentiality of Alcohol and Drug Abuse Patient Records regulations: The Federal rules restrict any use of the information to criminally investigate or prosecute any alcohol or drug abuse patient.[facility] HospitalIn the event this information is protected by the Federal Confidentiality of Alcohol and Drug Abuse Patient Records regulations: The Federal rules restrict any use of the information to criminally investigate or prosecute any alcohol or drug abuse patient.[facility] HospitalIn the event this information is protected by the Federal Confidentiality of Alcohol and Drug Abuse Patient Records regulations: The Federal rules restrict any use of the information to criminally investigate or prosecute any alcohol or drug abuse patient.[facility] HospitalIn the event this information is protected by the Federal Confidentiality of Alcohol and Drug Abuse Patient Records regulations: The Federal rules restrict any use of the information to criminally investigate or prosecute any alcohol or drug abuse patient.[facility] HospitalIn the event this information is protected by the Federal Confidentiality of Alcohol and Drug Abuse Patient Records regulations: The Federal rules restrict any use of the information to criminally investigate or prosecute any alcohol or drug abuse patient.[facility] HospitalIn the event this information is protected by the Federal Confidentiality of Alcohol and Drug Abuse Patient Records regulations: The Federal rules restrict any use of the information to criminally investigate or prosecute any alcohol or drug abuse patient.[facility] HospitalIn the event this information is protected by the Federal Confidentiality of Alcohol and Drug Abuse Patient Records regulations: The Federal rules restrict any use of the information to criminally investigate or prosecute any alcohol or drug abuse patient.[facility] HospitalIn the event this information is protected by the Federal Confidentiality of Alcohol and Drug Abuse Patient Records regulations: The Federal rules restrict any use of the information to criminally investigate or prosecute any alcohol or drug abuse patient.[facility] HospitalIn the event this information is protected by the Federal Confidentiality of Alcohol and Drug Abuse Patient Records regulations: The Federal rules restrict any use of the information to criminally investigate or prosecute any alcohol or drug abuse patient.[facility] HospitalIn the event this information is protected by the Federal Confidentiality of Alcohol and Drug Abuse Patient Records regulations: The Federal rules restrict any use of the information to criminally investigate or prosecute any alcohol or drug abuse patient.[facility] HospitalIn the event this information is protected by the Federal Confidentiality of Alcohol and Drug Abuse Patient Records regulations: The Federal rules restrict any use of the information to criminally investigate or prosecute any alcohol or drug abuse patient.[facility] HospitalIn the event this information is protected by the Federal Confidentiality of Alcohol and Drug Abuse Patient Records regulations: The Federal rules restrict any use of the information to criminally investigate or prosecute any alcohol or drug abuse patient.[facility] HospitalIn the event this information is protected by the Federal Confidentiality of Alcohol and Drug Abuse Patient Records regulations: The Federal rules restrict any use of the information to criminally investigate or prosecute any alcohol or drug abuse patient.[facility] HospitalIn the event this information is protected by the Federal Confidentiality of Alcohol and Drug Abuse Patient Records regulations: The Federal rules restrict any use of the information to criminally investigate or prosecute any alcohol or drug abuse patient.[facility] HospitalIn the event this information is protected by the Federal Confidentiality of Alcohol and Drug Abuse Patient Records regulations: The Federal rules restrict any use of the information to criminally investigate or prosecute any alcohol or drug abuse patient.[facility] Reason for Visit (unrecogniz ed section and content) Reason Onset Date Comments Refill Request 02/07/2022 Reason Comments Medicare Wellness Exam Reason Comments Sore Throat Cough, fatigue, moisés estion x2 days, + rapid x this AM Reason Comments Results Reason Comments Covid Test Result Reason Comments Cough Cough and fatigue x 5 days Reason Comments Patient Question Reason Onset Date Comments Refill Request 08/12/2022 Reason Comments F/U 6 months Reason Comments Medication Problem Reason Comments Pain (Shoulder Pain) L shoulder pain rad iating to neck x2 days Reason Comments Patient Update Patient Question Reason Comments Follow Up Reason Comments Results Reason Onset Date Comments New Pain Tumor/Mass Biopsy Request 01/17/2023 Specialty Diagnoses / Procedures Referred By Etienne scott Referred To Contact Orthopedics Diagnoses Abnormal x-ray Pain of left clavicle Abnormal CT scan Abnormal radionuclide bone scan Procedures CONSULT TO ORTHOPAEDICS OFFICE/OUTPATIENT NEW HIGH MDM 60-74 MINUTES Hilton Pena MD [address] [place] [address] Referral ID Status Reason Start Date Expiration Date V isits Requested Visits Authorized [id number] Closed PCP Requested Referral 01/06/2023 01/06/2024 1 1 Specialty Diagnoses / Procedures Referred By Etienne scott Referred To Contact CT IMAGING Diagnoses Pathological fracture of left clavicle, initial encounter Procedures CT ABD/PEL W IVCON CT ABD & PELVIS W/CONTRAST Alex Anaya MD [address] [facility] [address] [place] [address] Ct Imaging Referral ID Status Reason Start Date Expiration Date V isits Requested Visits Authorized [id number] Closed Auto-Generate d Referral 01/17/2023 02/16/2024 1 1 Specialty Diagnoses / Procedures Referred By Contac t Referred To Contact CT IMAGING Diagnoses Multiple myeloma not having achieved remission (HCC) Procedures CT WHOLE BODY SKULL TO KNEE WO IVCON UNLISTED COMPUTED TOMOGRAPHY PROCEDURE Jaime Beatty MD [address] [place] [address] Ct Imaging Referral ID Status Reason Start Date Expiration Date V isits Requested Visits Authorized [id number] Closed Auto-Generate d Referral 02/10/2023 03/11/2024 1 1 Reason Comments Consult Specialty Diagnoses / Procedures Referred By Contac t Referred To Contact Radiation Oncology Diagnoses Multiple myeloma not having achieved remission (HCC) Procedures RAD/ONC CONSULT OFFICE/OUTPATIENT [facility] MDM 60-74 MINUTES Jaime Beatty MD [address] [place] [address] Referral ID Status Reason Start Date Expiration Date V isits Requested Visits Authorized [id number] Closed PCP Requested Referral 02/10/2023 02/10/2024 1 1 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 Reason Onset Date Comments Simulation Request Form 02/20/2023 Reason Onset Date Comments Refill Request 02/21/2023 Reason Comments Patient Education Reason Onset Date Comments Refill Request 02/23/2023 Specialty Diagnoses / Procedures Referred By Contac t Referred To Contact Diagnoses Multiple myeloma, remission status unspecified (HCC) Jaime Beatty MD [address] [place] [address] [address] [address] [place] [address] Referral ID Status Reason Start Date Expiration Date V isits Requested Visits Authorized [id number] Authorized 02/13/2023 05/14/2023 99 99 Reason Onset Date Comments SPP Oral Oncology/hematology - Treatment Referra l 02/23/2023 [facility] Insurance Authorization 02/23/2023 Pending PA Submission Reason Comments Care Coordination Spouse Covid/Appoint ment Reason Comments Benefits Investigation Reason Comments Radiotherapy On-treatment Visit Reason Onset Date Comments Refill Request 03/09/2023 Specialty Diagnoses / Procedures [facility] By [facility] Referred To Contact Diagnoses Multiple myeloma, remission status unspecified (HCC) Procedures INJ, DARATUMUMAB, HYALURONIDASE 10 MG Jaime Beatty MD [address] [place] [address] [address] [address] [place] [address] Referral ID Status Reason Start Date Expiration Date V isits Requested Visits Authorized [id number] Authorized 02/13/2023 07/23/2023 99 99 Reason Comments Care Coordination Update on Revlim[facility] 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 Reason Comments Established Patient Reason Comments 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 Treatment/ Ster oid Question Reason Comments Care Coordination Nose Bleed Reason Onset Date Comments Refill Request 04/28/2023 Reason Onset Date Comments SPP Oral Oncology/hematology - Medication Refill 05/02/2023 Revlimid Reason Comments Established Patient Specialty Diagnoses / Procedures Referred By [facility] Referred To Contact MR IMAGING Diagnoses Multiple myeloma not having achieved remission (HCC) Procedures MRI LIVER WO/W IVCON MRI ABDOMEN W/O & W/CONTRAST MATERIAL Jaime Beatty MD [address] [place] [address] [address] [facility] [place] [address] Referral ID Status Reason Start Date Expiration Date V isits Requested Visits Authorized [id number] Closed Auto-Generate d Referral 02/27/2023 03/14/2024 [address] Specialty Diagnoses / Procedures Referred By [facility] Referred To Contact CT IMAGING Diagnoses Chronic subdural hematoma (HCC) Abnormal finding of diagnostic imaging Procedures CT BRAIN WO IVCON CT HEAD/BRAIN W/O CONTRAST MATERIAL Alvin Balderas, DRAGGER.[employer] [address] [place] [id number] Imaging [place] [address] Referral ID Status Reason Start Date Expiration Date V isits Requested Visits Authorized [id number] Closed Auto-Generate d Referral 02/27/2023 03/25/2024 1 1 Reason Onset Date Comments Refill Request 05/29/2023 Reason Onset Date Comments SPP Oral Oncology/hematology - Medication Refill 05/30/2023 Revlimid Reason Comments Radio Gen [id number] Reason Onset Date Comments Refill Request 06/26/2023 Reason Onset Date Comments SPP Oral Oncology/hematology - Medication Refill 06/27/2023 Revlimid Reason Comments Refill Request Reason Onset Date Comments Refill Request 02/28/2023 Reason Comments 6 Month Exam Reason Onset Date Comments Refill Request 09/19/2023 Reason Onset Date Comments SPP Oral Oncology/hematology - Medication Refill 09/20/2023 Revlimid Reason Onset Date Comments Refill Request 10/02/2023 Reason Comments Patient Update Symptom Management Reason Onset Date Comments Refill Request 11/13/2023 Reason Onset Date Comments SPP Oral Oncology/hematology - Medication Refill 11/17/2023 Revlimid Reason Onset Date Comments Refill Request 11/23/2023 Reason Onset Date Comments Refill Request 12/11/2023 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 Comments 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 ques tion Reason Onset Date Comments SPP Oral Oncology/hematology - Medication Refill 2023 Revlim[facility] Reason Comments 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 Blood in stool Reason Onset Date Comments Refill Request 01/08/2024 Reason Comments Opened In Error Reason Onset Date Comments SPP Oral Oncology/hematology - Medication Refill 01/10/2024 Revlimid Reason Onset Date Comments Refill Request 02/05/2024 Reason Onset Date Comments SPP Oral Oncology/hematology - Medication Refill 02/06/2024 Revlimid refill Reason Onset Date Comments Refill Request 02/20/2024 Reason Onset Date Comments Refill Request 03/04/2024 Reason Onset Date Comments SPP Oral Oncology/hematology - Medication Refill 03/05/2024 Revlimid Reason Onset Date Comments Refill Request 03/29/2024 Reason Onset Date Comments SPP Oral Oncology/hematology - Medication Refill 04/01/2024 lenalidomide Reason Comments 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 Resuming medica tion Reason Onset Date Comments Refill Request 04/22/2024 Reason Onset Date Comments Refill Request 04/25/2024 Reason Comments 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 COVID and medic ation question Reason Onset Date Comments SPP Oral Oncology/hematology - Medication Refill 04/25/2024 Revlimid Reason Comments Future Appointment Reason Comments 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 Revlimid Reason Onset Date Comments Refill Request 05/01/2024 Reason Onset Date Comments SPP Oral Oncology/hematology - Medication Refill 05/01/2024 lenalidomide Reason Onset Date Comments Refill Request 05/20/2024 Reason Onset Date Comments Refill Request 05/22/2024 Reason Onset Date Comments SPP Oral Oncology/hematology - Medication Refill 05/23/2024 Revlimid Reason Comments ER F/U [facility] Reason Comments 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 Cough Reason Comments Cough Reason Comments 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 Message follow up Reason Onset Date Comments SPP Oral Oncology/hematology - Medication Refill 06/21/2024 Revlimid Reason Comments ER Discharge Summary Reason Comments 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 Lenolidimide Reason Onset Date Comments Refill Request 07/19/2024 Reason Onset Date Comments SPP Oral Oncology/hematology - Medication Refill 07/22/2024 Revlimid Reason Onset Date Comments SPP Oral Oncology/hematology - Medication Refill 08/19/2024 Revlimid Reason Comments Follow Up 6 months Reason Comments 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 refi ll Reason Onset Date Comments SPP Oral Oncology/hematology - Medication Refill 09/17/2024 Revlimid Reason Comments 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 Prescription as sistance Reason Onset Date Comments SPP Oral Oncology/hematology - Medication Refill 10/14/2024 Revlimid Reason Comments 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 Notify of updat ed appt time/provider Reason Onset Date Comments SPP Oral Oncology/hematology - Medication Refill 11/12/2024 Revlimid Reason Onset Date Comments Refill Request 11/19/2024 Reason Comments 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 Change in condi tion Reason Comments 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 Explain Chemo S [place] Reason Onset Date Comments Refill Request 12/03/2024 Reason Comments 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 Revlimid refill s Reason Comments Radio Gen [id number] Specialty Diagnoses / Procedures Referred By Contac t Referred To Contact XR IMAGING Diagnoses Multiple myeloma in remission (HCC) Procedures XR BONE SURVEY ROUTINE RADIOLOGIC EXAMINATION OSSEOUS SURVEY COMPL Jaime Beatty MD [address] [place] [address] Phone: tel: fax:[phone] [place] [address] Referral ID Status Reason Start Date Expiration Date V isits Requested Visits Authorized [id number] Closed Auto-Generate d Referral 12/25/2024 01/24/2026 1 1 Reason Onset Date Comments SPP Oral Oncology/hematology - Medication Refill 01/06/2025 Revlimid Reason Comments Established Patient Reason Onset Date Comments Refill Request 01/27/2025 Reason Comments Radiology US Specialty Diagnoses / Procedures Referred By Contac t Referred To Contact US IMAGING Diagnoses Right leg swelling Multiple myeloma in remission (HCC) Procedures US DVT LOWER RIGHT DUP-SCAN XTR VEINS UNILATERAL/LIMITED STUDY Vince Freitas APRN.[employer] [address] [place] [address] Phone: tel: fax: [id number] Referral ID Status Reason Start Date Expiration Date V isits Requested Visits Authorized [id number] Closed Auto-Generate d Referral 01/23/2025 02/22/2026 1 1 Reason Onset Date Comments Refill Request 01/30/2025 Reason Onset Date Comments SPP Oral Oncology/hematology - Medication Refill 02/03/2025 Revlimid Reason Onset Date Comments SPP Oral Oncology/hematology - Medication Refill 03/03/2025 Revlimid (BRAND) Reason Comments Medicare Wellness Exam 6 Month Exam Reason Onset Date Comments SPP Oral Oncology/hematology - Medication Refill 03/31/2025 Revlimid (BRAND) Reason Comments New Gandhi's cyst - Refer red by Vince Freitas Specialty Diagnoses / Procedures Referred By Etienne scott Referred To Contact Orthopedics Diagnoses Gandhi's cyst of knee, right Immunocompromised (HCC) Multiple myeloma in remission (HCC) Procedures OFFICE/OUTPATIENT [facility] 60 MINUTES Vince Freitas, NABILA.[employer] [address] [place] [address] Phone: tel: fax: Referral ID Status Reason Start Date Expiration Date V isits Requested Visits Authorized [id number] Closed PCP Requested Referral 02/08/2025 02/01/2026 1 1 Goals (unrecognized section and content) Goals may be documented in a n alternate sectionGoals may be documented in an alternate sectionGoals may be documented in an alternate section Inactive Administered Medications - up to 3 most recent administrations Administered Medications (un recognized section and content) Medication Order MAR Action Action Date Dose Rate Site acetaminophen 1,000 mg tab(s) (TYLENOL) 1,000 mg, ORAL, ONCE, 1 dose, On Mon09/07/23 at 1400, No more than 4000 mg of acetaminophen should be given per day (FROM ALL SOURCES), If ordered PRN for pain, patient/guardian may elect to receive this medication for higher pain levels INSTEAD of the opioid, if preferred: N/A Given 09/07/2023 2:02 PM EST 1,000 mg daratumumab 1,800 mg - hyaluronidase-fihj 30,000 units 1,800 mg injection (DARZALEX FASPRO) 1,800 mg, SUBCUTANEOUS, ONCE, 1 dose, On Mon09/07/23 at 1400, ++FOR SUBCUTANEOUS ADMINISTRATION ONLY++ EXP: (12 HR) Inject subcutaneously into subcutaneous tissue on the abdomen approximately 3 inches to the right or left of the navel over 3 to 5 minutes. Given 09/07/2023 2:51 PM EST 1,800 mg Abdomen, RLQ diphenhydrAMINE 25 mg (BENADRYL) 25 mg, ORAL, ONCE, 1 dose, On Dominga 09/07/23 at 1400 Given 09/07/2023 2:01 PM EST 25 mg famotidine 20 mg tab(s) (PEPCID) 20 mg, ORAL, ONCE, 1 dose, On Dom[place] 09/07/23 at 1400 Given 09/07/2023 2:02 PM EST 20 mg zoledronic acid 3.3 mg in NaCl 0.9% 100 mL (ZOMETA) 3.3 mg, INTRAVENOUS, Administer over 15 Minutes, ONCE, 1 dose, On Dominga 09/07/23 at 1400, Hazardous Potential Reproductive Risk Drug: Use appropriate PPE. Refrigerate. New Bag/Syringe/Bottl e 09/07/2023 2:55 PM EST 3.3 mg Inactive Administered Medications - up to 3 most recent administrations Medication Order MAR Action Action Date Dose Rate Site acetaminophen 1,000 mg tab(s) (TYLENOL) 1,000 mg, ORAL, ONCE, 1 dose, On Mon10/06/23 at 1430, No more than 4000 mg of acetaminophen should be given per day (FROM ALL SOURCES), If ordered PRN for pain, patient/guardian may elect to receive this medication for higher pain levels INSTEAD of the opioid, if preferred: N/A Given 10/06/2023 2:24 PM EDT 1,000 mg daratumumab 1,800 mg - hyaluronidase-fihj 30,000 units 1,800 mg injection (DARZALEX FASPRO) 1,800 mg, SUBCUTANEOUS, ONCE, 1 dose, On Mon10/06/23 at 1430, ++FOR SUBCUTANEOUS ADMINISTRATION ONLY++ EXP: (12 HR) Inject subcutaneously into subcutaneous tissue on the abdomen approximately 3 inches to the right or left of the navel over 3 to 5 minutes. Given 10/06/2023 3:42 PM EDT 1,800 mg Abdomen, RLQ famotidine 20 mg tab(s) (PEPCID) 20 mg, ORAL, ONCE, 1 dose, On Mon10/06/23 at 1430 Given 10/06/2023 2:24 PM EDT 20 mg zoledronic acid 3.3 mg in NaCl 0.9% 100 mL (ZOMETA) 3.3 mg, INTRAVENOUS, Administer over 15 Minutes, ONCE, 1 dose, On Mon10/06/23 at 1430, Hazardous Potential Reproductive Risk Drug: Use appropriate PPE. Refrigerate. New Bag/Syringe/Bottl e 10/06/2023 3:13 PM EDT 3.3 mg Inactive Administered Medications - up to 3 most recent administrations Medication Order MAR Action Action Date Dose Rate Site acetaminophen 1,000 mg tab(s) (TYLENOL) 1,000 mg, ORAL, ONCE, 1 dose, On Mon11/03/23 at 1430, No more than 4000 mg of acetaminophen should be given per day (FROM ALL SOURCES), If ordered PRN for pain, patient/guardian may elect to receive this medication for higher pain levels INSTEAD of the opioid, if preferred: N/A Given 11/03/2023 2:30 PM EDT 1,000 mg daratumumab 1,800 mg - hyaluronidase-fihj 30,000 units 1,800 mg injection (DARZALEX FASPRO) 1,800 mg, SUBCUTANEOUS, ONCE, 1 dose, On Mon11/03/23 at 1430, ++FOR SUBCUTANEOUS ADMINISTRATION ONLY++ EXP: (12 HR) Inject subcutaneously into subcutaneous tissue on the abdomen approximately 3 inches to the right or left of the navel over 3 to 5 minutes. Given 11/03/2023 3:07 PM EDT 1,800 mg Abdomen, LLQ diphenhydrAMINE 25 mg capsule (BENADRYL) 25 mg, ORAL, ONCE, 1 dose, On Mon11/03/23 at 1430 Given 11/03/2023 2:30 PM EDT 25 mg famotidine 20 mg tab(s) (PEPCID) 20 mg, ORAL, ONCE, 1 dose, On Mon11/03/23 at 1430 Given 11/03/2023 2:30 PM EDT 20 mg zoledronic acid 3.3 mg in NaCl 0.9% 100 mL (ZOMETA) 3.3 mg, INTRAVENOUS, Administer over 15 Minutes, ONCE, 1 dose, On Mon11/03/23 at 1500, Hazardous Potential Reproductive Risk Drug: Use appropriate PPE. Refrigerate. New Bag/Syringe/Bottl e 11/03/2023 3:12 PM EDT 3.3 mg FOR RECORDS PERTAINING TO PATIENTS WHO ARE OR HAVE BEEN ENROLLED IN A CHEMICAL DEPENDENCY/SUBSTANCEABUSE PROGRAM, SOME INFORMATION MAY BE OMITTED. This clinical summary was aggregated from multiple sources. Caution should be exercised in using it in the provision of clinical care. This summary normalizes information from multiple sources, and as a consequence, information in this document may materially change the coding, format and clinical context of patient data. In addition, data may be omitted in some cases. CLINICAL DECISIONS SHOULD BE BASED ON THE PRIMARY CLINICAL RECORDS. [employer] provides no warranty or guarantee of the accuracy or completeness of information in this document.
[2025-07-19 18:20] VITALS: BP 143/73; PULSE 81; RESP 16; TEMP 36.8; O2SAT 97
== END 2025-07-19 18:28 | disposition home or self-care (01) ==
PROVIDERS: Emergency Provider Emergency Medicine; PCP Family Medicine; Visit Provider Emergency Medicine
DX: J06.9 Acute upper respiratory infection, unspecified (principal)
CPT/HCPCS: 71046; 87631; 99282